=== PATIENT | female | born 1970 | race Caucasian/White ===

== ENCOUNTER 2016-03-17 13:41 | Emergency (ER) | payer MEDICARE, MEDICAID ==
[~2016-03-17] VITALS: Ht 162.6 cm; Wt 72.6 kg
[~2016-03-17 13:41] MED LIST: CIPR500T4 PO
[2016-03-17 15:14] LABS: BILIRUBIN,URINE NEGATIVE (NEGATIVE); KETONES,URINE NEGATIVE (NEGATIVE); LEUKOCYTE ESTERASE ,URINE 1+ (NEGATIVE); NITRITE,URINE NEGATIVE (NEGATIVE); PH,URINE 6 (5-9); PROTEIN,URINE NEGATIVE (NEGATIVE); UROBILINOGEN,URINE NORMAL (NORMAL)
[2016-03-17 15:19] LABS: BASOPHILS % (AUTO) 1 % (0-10); EOSINOPHILS # (AUTO) 0.2 10^3/uL (0.0-0.3); EOSINOPHILS % (AUTO) 2 % (0-10); LYMPHOCYTES # (AUTO) 2.2 X 10^3 (1.0-4.0); LYMPHOCYTES % (AUTO) 30 % (12-44); MEAN CORPUSCULAR HEMOGLOBIN 26 PG (25-34); MEAN CORPUSCULAR HGB CONC 33 G/DL (32-36); MEAN CORPUSCULAR VOLUME 79 FL (80-99); MEAN PLATELET VOLUME 10.4 FL (7.4-10.4); MONOCYTES % (AUTO) 13 % (0-12); NEUTROPHILS % (AUTO) 54 % (42-75); PLATELET COUNT 341 10^3/uL (130-400); RED BLOOD COUNT 4.93 10^6/uL (4.35-5.85); RED CELL DISTRIBUTION WIDTH 15.8 % (10.0-14.5); WHITE BLOOD COUNT 7.4 10^3/uL (4.3-11.0)
[2016-03-17 15:22] LABS: SQUAMOUS EPITHELIAL CELL,UR 25-50 /HPF
[2016-03-17 15:34] LABS: ALANINE AMINOTRANSFERASE 18 U/L (0-55); ALBUMIN 4.1 G/DL (3.2-4.5); ANION GAP 13 MMOL/L (5-14); ASPARTATE AMINO TRANSFERASE 18 U/L (5-34); BILIRUBIN,TOTAL 1.1 MG/DL (0.1-1.0); BLOOD UREA NITROGEN 15 MG/DL (7-18); BUN/CREATININE RATIO 20; CALCIUM 8.8 MG/DL (8.5-10.1); CARBON DIOXIDE 20 MMOL/L (21-32); CHLORIDE 107 MMOL/L (98-107); CREATININE SERUM 0.74 MG/DL (0.60-1.30); GFR ESTIMATED > 60; POTASSIUM 3.8 MMOL/L (3.6-5.0); SODIUM 140 MMOL/L (135-145); TOTAL PROTEIN 6.9 G/DL (6.4-8.2)
[2016-03-17 15:35] LABS: ALCOHOL < 10 MG/DL (<10); GLUCOSE 53 MG/DL (70-105)
--- NOTE | 2016-03-17 15:46 | Diagnostic Imaging Report ---
INDICATION: Abdominal distention. EXAMINATION: Supine and upright abdomen images. FINDINGS: The gallbladder is surgically absent. Bowel gas pattern is normal. There are no pathologic masses or calcifications. IMPRESSION: No acute abnormalities in the abdomen. Dictated by: Dictated on workstation # [id number]
[2016-03-17] MEDS ORDERED: MECL-106 PO (16:00)
[2016-03-17] MEDS ORDERED: SCOP1PAT TD (16:00)
--- NOTE | 2016-03-17 16:00 | ED General ---
General Chief Complaint: Dizziness/Syncope Stated Complaint: DIZZINESS/DIFF HAVING BOWEL MOVEMENT Nursing Triage Note: AMB TO ROOM REPORTS CONSTIPATION WAS SEEN 1 WEEK AGO FOR THAT NEVER GOT RX FILLED AND HAS BEEN DIZZY FOR A LONG TIME REPORT HAS PACEMAKER. Nursing Sepsis Screen: No Definite Risk Source of Information: Patient History of Present Illness Time Seen by Provider: 14:40 Initial Comments PT C/O CONSTIPATION X 1 WEEK DID HAVE A VERY SMALL BM YESTERDAY HAS TAKEN NOTHING FOR THIS PROBLEM NO ABDOMINAL PAIN NO NAUSEA/VOMITING NO URINARY SYMPTOMS ALSO C/O CHRONIC DIZZINESS, NO DIFFERENT TODAY. PCP: [facility]: DR. RUSSELL Allergies and Home Medications Allergies Coded Allergies: No Known Drug Allergies (Unverified , 03/10/16) Home Medications Meclizine HCl 25 Mg Tablet #30 25-50 MG PO Q6H Prescribed by: DIXIE LOPEZ on 03/17/16 1600 Scopolamine 1 Each Patch.td72 #3 1 EACH TD Q72 HOURS Prescribed by: DIXIE LOPEZ on 03/17/16 1600 Constitutional: see HPI dizziness Respiratory: no symptoms reported Cardiovascular: no symptoms reported Gastrointestinal: see HPI Genitourinary: no symptoms reported : No (HAD NOT HAD A PERIOD IN A YEAR, THEN HAD ONE LAST WEEK) Musculoskeletal: no symptoms reported Skin: no symptoms reported Psychiatric/Neurological: No Symptoms Reported Immunological/Allergic: see HPI Past Jzmyhpz-Lizagi-Ugsrnx Hx Patient Social History Recent Foreign Travel: No Contact w/Someone Who Travel: No Recent Infectious Disease Expo: No Recent Hopitalizations: No Surgeries HX Surgeries: Yes (GASTRIC BYPASS, ABDOMINOPLASTY; HERNIA REPAIR) Surgeries: Abdominal, Adenoidectomy, Section, Gallbladder, Pacemaker, Tonsillectomy Respiratory Hx Respiratory Disorders: No Cardiovascular Hx Cardiac Disorders: Yes (PACEMAKER FOR BRADYCARDIA) Neurological Hx Neurological Disorders: Yes Neurological Disorders: Vertigo Reproductive System Hx Reproductive Disorders: No HIV/AIDS: Yes Genitourinary Hx Genitourinary Disorders: Yes Genitourinary Disorders: Kidney Infection, Bladder Infection Gastrointestinal Hx Gastrointestinal Disorders: No Musculoskeletal Hx Musculoskeletal Disorders: No Endocrine Hx Endocrine Disorders: No HEENT HX ENT Disorders: No Cancer Hx Cancer: No Psychosocial Hx Psychiatric Problems: Yes Behavioral Health Disorders: ADD/ADHD, Anxiety, PTSD, Bipolar, Depression Integumentary HX Skin/Integumentary Disorder: No Blood Transfusions Hx Blood Disorders: No Adverse Reaction to a Blood Tr: No Family Medical History Significant Family History: No Pertinent Family Hx Physical Exam Vital Signs Vital Sign - Last 12Hours 03/17/16 14:17 Temp 98.6 Pulse 88 Resp 18 B/P 108/63 Pulse Ox 100 O2 Delivery Room Air Capillary Refill : Less Than 3 Seconds General Appearance: No Apparent Distress WD/WN Neck: Normal Inspection Respiratory: Normal Breath Sounds No Accessory Muscle Use No Respiratory Distress Cardiovascular: Regular Rate, Rhythm Normal Peripheral Pulses Gastrointestinal: Normal Bowel Sounds No Organomegaly No Pulsatile Mass Soft Tenderness (MILD SUPRAPUBIC) Back: No CVA Tenderness Extremity: Normal Inspection Neurologic/Psychiatric: Alert Oriented x3 No Motor/Sensory Deficits Skin: Normal Color Warm/Dry Progress/Results/Core Measures Results/Orders Lab Results My Orders Vital Signs/I&O Blood Pressure Mean: 78 Diagnostic Imaging Comments ABDOMINAL XRAYS--NO ACUTE PROCESS, PER RADIOLOGIST REPORT @ 1553 Reviewed: Reviewed by Me Departure Impression Impression: Primary Impression: CHRONIC DIZZINESS Additional Impressions: Constipation Hypoglycemia Disposition: HOME, SELF-CARE Condition: Stable Departure-Patient Inst. Referrals: NO,LOCAL PHYSICIAN (PCP/Family) Primary Care Physician Patient Instructions: Constipation, Adult (DC), Vertigo (a Type of Dizziness) ( DC) Add. Discharge Instructions: SLOW POSITION CHANGES TAKE MIRALAX DAILY FOLLOW UP WITH YOUR DR THIS WEEK FOR FURTHER CARE All discharge instructions reviewed with patient and/or family. Voiced understanding. Scripts Meclizine HCl 25 Mg [id number] Mg PO Q6H Dizziness #30 TAB Prov:DIXIE LOPEZ DO 03/17/16 Scopolamine (Transderm-Scop)1 Each Patch.td721 Each TD Q72 HOURS Dizziness #3 PATCH Prov:DIXIE LOPEZ DO 03/17/16 DIXIE LOPEZ DO Mar 17, 2016 16:00 Potassium Level 3.8 3.6-5.0 MMOL/L Red Blood Count 4.93 4.35-5.85 10^6/uL Red Cell Distribution Width 15.8 H 10.0-14.5 % Serum Alcohol < 10 <10 MG/DL Sodium Level 140 135-145 MMOL/L Total Bilirubin 1.1 H 0.1-1.0 MG/DL Total Protein 6.9 6.4-8.2 G/DL Ur Tricyclic Antidepressants Screen POSITIVE H NEGATIVE Urine Amphetamines Screen NEGATIVE NEGATIVE Urine Bacteria NEGATIVE /HPF Urine Barbiturates Screen NEGATIVE NEGATIVE Urine Benzodiazepines Screen NEGATIVE NEGATIVE Urine Bilirubin NEGATIVE NEGATIVE Urine Cannabinoids Screen NEGATIVE NEGATIVE Urine Casts NONE /LPF Urine Clarity CLEAR Urine Cocaine Screen NEGATIVE NEGATIVE Urine Color YELLOW Urine Crystals NONE /LPF Urine Culture Indicated NO Urine Glucose (UA) NEGATIVE NEGATIVE Urine Ketones NEGATIVE NEGATIVE Urine Leukocyte Esterase 1+ H NEGATIVE Urine Methadone Screen NEGATIVE NEGATIVE Urine Methamphetamines Screen NEGATIVE NEGATIVE Urine Mucus NEGATIVE /LPF Urine Nitrite NEGATIVE NEGATIVE Urine Opiates Screen NEGATIVE NEGATIVE Urine Oxycodone Screen NEGATIVE NEGATIVE Urine Phencyclidine Screen NEGATIVE NEGATIVE Urine Propoxyphene Screen NEGATIVE NEGATIVE Urine Protein NEGATIVE NEGATIVE Urine RBC NONE /HPF Urine RBC (Auto) NEGATIVE NEGATIVE Urine Specific [place] 1.025 H 1.016-1.022 Urine Squamous Epithelial Cells 25-50 H /HPF Urine Urobilinogen NORMAL NORMAL MG/DL Urine WBC NONE /HPF Urine pH 6 5-9 White Blood Count 7.4 4.3-11.0 10^3/uL My Orders Orders-DIXIE LOPEZ DO Ekg Tracing (03/17/16 14:54) Monitor-Rhythm Ecg Trace Only (03/17/16 14:54) Alcohol (03/17/16 14:54) Cbc With Automated Diff (03/17/16 14:54) Comprehensive Metabolic Panel (03/17/16 14:54) Drug Screen Stat (Urine) (03/17/16 14:54) Ua Culture If Indicated (03/17/16 14:54) Abdomen, Flat & Upright/Decub (03/17/16 14:54) General/Regular (03/17/16 Dinner) Vital Signs/I&O Vital Sign - Last 12Hours 03/17/16 14:17 Temp 98.6 Pulse 88 Resp 18 B/P 108/63 Pulse Ox 100 O2 Delivery Room Air Blood Pressure Mean: 78 Diagnostic Imaging Comments ABDOMINAL XRAYS--NO ACUTE PROCESS, PER RADIOLOGIST REPORT @ 1558 Reviewed: Reviewed by Me Departure Impression Impression: Primary Impression: CHRONIC DIZZINESS Additional Impressions: Constipation Hypoglycemia Disposition: 01 HOME, SELF-CARE Condition: Stable Departure-Patient Inst. Referrals: NO,LOCAL PHYSICIAN (PCP/Family) Primary Care Physician Patient Instructions: Constipation, Adult (DC), Vertigo (a Type of Dizziness) ( DC) Add. Discharge Instructions: SLOW POSITION CHANGES TAKE MIRALAX DAILY FOLLOW UP WITH YOUR DR THIS WEEK FOR FURTHER CARE All discharge instructions reviewed with patient and/or family. Voiced understanding. Scripts Meclizine HCl 25 Mg [id number] Mg PO Q6H Dizziness #30 TAB Prov:DIXIE LOPEZ DO 03/17/16 Scopolamine (Transderm-Scop)1 Each Patch.td721 Each TD Q72 HOURS Dizziness #3 PATCH Prov:DIXIE LOPEZ DO 03/17/16 DIXIE LOPEZ DO Mar 17, 2016 16:00
[2016-03-17] MEDS ORDERED: SCOPOLAMINE 1.5 MG (TRANSDERM-SCOP) PATCH TD ONE (16:15)
[2016-03-17 16:44] VITALS: BP 103/66
== END 2016-03-17 16:44 | disposition home or self-care (01) ==
LOC: EDUNIT# 13:41 → ER 13:42
DX: R42 Dizziness and giddiness (principal); K59.00 Constipation, unspecified; E16.2 Hypoglycemia, unspecified; Z98.84 Bariatric surgery status; Z95.0 Presence of cardiac pacemaker
CPT/HCPCS: 36415; 74020; 80053; 80306; 80320; 81000; 85025; 93005

== ENCOUNTER → 2016-03-19 | Outpatient (CLI) | payer MEDICARE, MEDICAID ==
[~2016-03-19] MED LIST changes: +MECL-106 PO; +SCOP1PAT TD
== END ==
LOC: RAD 12:29 → EDUNIT# 12:30
PROVIDERS: ATTEND Internal Medicine Cardiovascular Disease
DX: I70.213 Atherosclerosis of native arteries of extremities with intermittent claudication, bilateral legs (principal); I25.2 Old myocardial infarction; Z21 Asymptomatic human immunodeficiency virus [HIV] infection status; Z72.0 Tobacco use; F19.21 Other psychoactive substance dependence, in remission; R94.31 Abnormal electrocardiogram [ECG] [EKG]
CPT/HCPCS: 93923

== ENCOUNTER → 2016-05-23 | Outpatient (CLI) | payer MEDICARE, MEDICAID | LOC: RAD 11:07 | PROVIDERS: ATTEND Nurse Practitioner Family | DX: R90.89 Other abnormal findings on diagnostic imaging of central nervous system (principal) ==

== ENCOUNTER → 2016-09-25 | Outpatient (CLI) | payer MEDICARE, MEDICAID ==
--- NOTE | 2016-09-25 15:19 | Diagnostic Imaging Report ---
PROCEDURE: CT head without contrast. TECHNIQUE: Multiple contiguous axial images were obtained through the brain without the use of intravenous contrast. INDICATION: Memory loss COMPARISON: 03/10/2016. FINDINGS: There is no intracranial hemorrhage, edema or mass effect. The brain parenchyma appears unremarkable. No hydrocephalus. Similar to the prior exam, there is a persistent 4 mm hyperdense lesion along the anterosuperior aspect of the third ventricle area suggestive of a colloid cyst. The visualized portions of the orbits and paranasal sinuses appear unremarkable. IMPRESSION: A hyperdense lesion measuring 4 mm in the anterosuperior aspect of the third ventricular region suggestive of a tiny colloid cyst, similar to 03/10/2016 exam. Dictated by: Dictated on workstation # [id number]
== END ==
LOC: RAD 13:20
PROVIDERS: ATTEND Nurse Practitioner Adult Health
DX: R93.0 Abnormal findings on diagnostic imaging of skull and head, not elsewhere classified (principal)
CPT/HCPCS: 70450

== ENCOUNTER 2016-10-18 14:12 | Emergency (ER) | payer MEDICARE, MEDICAID ==
[~2016-10-18] VITALS: Ht 162.6 cm; Wt 72.6 kg
--- NOTE | 2016-10-18 14:42 | ED General ---
General Stated Complaint: DIARRHEA/DIZZINESS Source of Information: Patient Exam Limitations: No Limitations History of Present Illness Time Seen by Provider: 14:39 Initial Comments To ER with c/o abdominal cramping, nausea, dizziness, diarrhea, and near syncope. SHe has a history of IBS with constipation being treated with Linzess. No fevers or chills. Currently on HAART for HIV by Dr Russell in [place]. 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 Timing/Duration: 12 Hours Severity: Moderate Associated Systoms: No Chest Pain, No Cough, No Diaphoresis, No Fever/Chills, No Loss of Appetite, Nausea/Vomiting Allergies and Home Medications Allergies Coded Allergies: No Known Drug Allergies (Unverified , 03/10/16) Home Medications Meclizine HCl 25 Mg Tablet, 25-50 MG PO Q6H, #30 Prescribed by: DIXIE LOPEZ on 03/17/16 1600 Scopolamine 1 Each Patch.td72, 1 EACH TD Q72 HOURS, #3 Prescribed by: DIXIE LOPEZ on 03/17/16 1600 Constitutional: see HPI, chills, No fever EENTM: see HPI Respiratory: no symptoms reported Cardiovascular: no symptoms reported Gastrointestinal: abdominal pain, constipation, diarrhea, nausea Genitourinary: no symptoms reported Musculoskeletal: no symptoms reported Skin: no symptoms reported Psychiatric/Neurological: No Symptoms Reported Hematologic/Lymphatic: No Symptoms Reported Immunological/Allergic: no symptoms reported Past Auvitet-Olwzuk-Cyfpci Hx Patient Social History Recent Foreign Travel: No Contact w/Someone Who Travel: No Recent Hopitalizations: No Surgeries HX Surgeries: Yes (gastric bypass) Surgeries: Section Respiratory Hx Respiratory Disorders: No Cardiovascular Hx Cardiac Disorders: Yes Neurological Hx Neurological Disorders: No Reproductive System Hx Reproductive Disorders: No HIV/AIDS: Yes Genitourinary Hx Genitourinary Disorders: Yes Genitourinary Disorders: Kidney Infection, Bladder Infection Gastrointestinal Hx Gastrointestinal Disorders: No Musculoskeletal Hx Musculoskeletal Disorders: No Endocrine Hx Endocrine Disorders: No HEENT HX ENT Disorders: No Cancer Hx Cancer: No Psychosocial Behavioral Health Disorders: ADD/ADHD, Anxiety, PTSD, Bipolar, Depression Integumentary HX Skin/Integumentary Disorder: No Blood Transfusions Hx Blood Disorders: No Adverse Reaction to a Blood Tr: No Family Medical History Significant Family History: No Pertinent Family Hx Physical Exam Vital Signs Vital Sign - Last 12Hours 10/18/16 14:35 Temp 99.4 Pulse 87 Resp 20 B/P (MAP) 109/80 Pulse Ox 97 O2 Delivery Room Air Capillary Refill : General Appearance: No Apparent Distress, WD/WN Eyes: Bilateral Eye EOMI, Bilateral Eye Normal Inspection, Bilateral Eye PERRL HEENT: PERRL/EOMI, TMs Normal Neck: Full Range of Motion, Normal Inspection Respiratory: Normal Breath Sounds, No Accessory Muscle Use, No Respiratory Distress Cardiovascular: Regular Rate, Rhythm, Normal Peripheral Pulses Gastrointestinal: Normal Bowel Sounds, Non Tender, Soft Extremity: Normal Capillary Refill, Normal Inspection Neurologic/Psychiatric: Alert, Oriented x3, No Motor/Sensory Deficits Skin: Normal Color, Warm/Dry Progress/Results/Core Measures Results/Orders Lab Results Laboratory Tests Test 10/18/16 14:42 10/18/16 16:47 Range/Units White Blood Count 8.1 4.3-11.0 10^3/uL Red Blood Count 4.87 4.35-5.85 10^6/uL Hemoglobin 11.7 11.5-16.0 G/DL Hematocrit 38 35-52 % Mean Corpuscular Volume 77 L 80-99 FL Mean Corpuscular Hemoglobin 24 L 25-34 PG Mean Corpuscular Hemoglobin Concent 31 L 32-36 G/DL Red Cell Distribution Width 17.9 H 10.0-14.5 % Platelet Count 271 130-400 10^3/uL Mean Platelet Volume 11.4 H 7.4-10.4 FL Neutrophils (%) (Auto) 88 H 42-75 % Lymphocytes (%) (Auto) 5 L 12-44 % Monocytes (%) (Auto) 6 0-12 % Eosinophils (%) (Auto) 1 0-10 % Basophils (%) (Auto) 0 0-10 % Neutrophils # (Auto) 7.1 1.8-7.8 X 10^3 Lymphocytes # (Auto) 0.4 L 1.0-4.0 X 10^3 Monocytes # (Auto) 0.5 0.0-1.0 X 10^3 Eosinophils # (Auto) 0.1 0.0-0.3 10^3/uL Basophils # (Auto) 0.0 0.0-0.1 10^3/uL Neutrophils % (Manual) 75 % Lymphocytes % (Manual) 7 % Monocytes % (Manual) 3 % Eosinophils % (Manual) 2 % Basophils % (Manual) 0 % Band Neutrophils 13 % Blood Morphology Comment NORMAL Prothrombin Time 13.4 12.2-14.7 SEC INR Comment 1.1 0.8-1.4 Sodium Level 138 135-145 MMOL/L Potassium Level 3.5 L 3.6-5.0 MMOL/L Chloride Level 108 H 98-107 MMOL/L Carbon Dioxide Level 20 L 21-32 MMOL/L Anion Gap 10 5-14 MMOL/L Blood Urea Nitrogen 11 7-18 MG/DL Creatinine 0.65 0.60-1.30 MG/DL Estimat Glomerular Filtration Rate > 60 BUN/Creatinine Ratio 17 Glucose Level 106 H 70-105 MG/DL Calcium Level 8.7 8.5-10.1 MG/DL Total Bilirubin 0.9 0.1-1.0 MG/DL Aspartate Amino Transf (AST/SGOT) 15 5-34 U/L Alanine Aminotransferase (ALT/SGPT) 12 0-55 U/L Alkaline Phosphatase 119 40-136 U/L Total Protein 6.3 L 6.4-8.2 GM/DL Albumin 4.0 3.2-4.5 GM/DL Urine Color YELLOW Urine Clarity CLEAR Urine pH 5 5-9 Urine Specific [place] 1.020 1.016-1.022 Urine Protein 2+ H NEGATIVE Urine Glucose (UA) NEGATIVE NEGATIVE Urine Ketones NEGATIVE NEGATIVE Urine Nitrite NEGATIVE NEGATIVE Urine Bilirubin NEGATIVE NEGATIVE Urine Urobilinogen NORMAL NORMAL MG/DL Urine Leukocyte Esterase 1+ H NEGATIVE Urine RBC (Auto) NEGATIVE NEGATIVE Urine RBC NONE /HPF Urine WBC 2-5 /HPF Urine Squamous Epithelial Cells 5-10 /HPF Urine Crystals NONE /LPF Urine Bacteria NONE /HPF Urine Casts NONE /LPF Urine Mucus NEGATIVE /LPF Urine Culture Indicated NO Urine Opiates Screen NEGATIVE NEGATIVE Urine Oxycodone Screen NEGATIVE NEGATIVE Urine Methadone Screen NEGATIVE NEGATIVE Urine Propoxyphene Screen NEGATIVE NEGATIVE Urine Barbiturates Screen NEGATIVE NEGATIVE Ur Tricyclic Antidepressants Screen NEGATIVE NEGATIVE Urine Phencyclidine Screen NEGATIVE NEGATIVE Urine Amphetamines Screen NEGATIVE NEGATIVE Urine Methamphetamines Screen NEGATIVE NEGATIVE Urine Benzodiazepines Screen POSITIVE H NEGATIVE Urine Cocaine Screen NEGATIVE NEGATIVE Urine Cannabinoids Screen NEGATIVE NEGATIVE My Orders Orders - SHILOH JIM BANKER MASON Cbc With Automated Diff (10/18/16 14:37) Comprehensive Metabolic Panel (10/18/16 14:37) Ua Culture If Indicated (10/18/16 14:37) Saline Lock/Iv-Start (10/18/16 14:37) Ct Abdomen/Pelvis W (10/18/16 14:38) Ns Iv 1000 Ml (Sodium Chloride 0.9%) (10/18/16 14:45) Ondansetron Injection (Zofran Injectio (10/18/16 14:45) Drug Screen Stat (Urine) (10/18/16 14:42) Protime With Inr (10/18/16 14:42) Manual Differential (10/18/16 14:42) Ketorolac Injection (Toradol Injection) (10/18/16 15:15) Iohexol Injection (Omnipaque 350 Mg/Ml 1 (10/18/16 15:15) Medications Given in ED Current Medications Medications Dose Ordered Sig/Brit Route Start Time Stop Time Status Last Admin Dose Admin Ketorolac Tromethamine 30 mg ONCE ONCE IVP 10/18/16 15:15 10/18/16 15:16 DC 10/18/16 15:13 30 MG Ondansetron HCl 8 mg ONCE ONCE IVP 10/18/16 14:45 10/18/16 14:46 DC 10/18/16 15:13 8 MG Vital Signs/I&O Vital Sign - Last 12Hours 10/18/16 14:35 Temp 99.4 Pulse 87 Resp 20 B/P (MAP) 109/80 Pulse Ox 97 O2 Delivery Room Air Departure Impression Impression: Primary Impression: Irritable bowel syndrome Disposition: HOME, SELF-CARE Condition: Stable Departure-Patient Inst. Decision time for Depature: 17:07 Referrals: SARY RUSSELL MD (PCP/Family) Primary Care Physician Patient Instructions: Irritable Bowel Syndrome (DC) Add. Discharge Instructions: 1. Continue current medications 2. Return to ER for any concerns 3. See your doctor next week SHILOH JIM APRN Oct 18, 2016 14:42
[2016-10-18] MEDS ORDERED: NS IV 1000 ML 1,000 ML IV SCH (14:45)
[2016-10-18] MEDS ORDERED: ONDANSETRON 4 MG/2 ML (SDV) Z0FRAN IVP ONE (14:45)
[2016-10-18 14:52] LABS: BASOPHILS % (AUTO) 0 % (0-10); EOSINOPHILS # (AUTO) 0.1 10^3/uL (0.0-0.3); EOSINOPHILS % (AUTO) 1 % (0-10); LYMPHOCYTES # (AUTO) 0.4 X 10^3 (1.0-4.0); LYMPHOCYTES % (AUTO) 5 % (12-44); MEAN CORPUSCULAR HEMOGLOBIN 24 PG (25-34); MEAN CORPUSCULAR HGB CONC 31 G/DL (32-36); MEAN CORPUSCULAR VOLUME 77 FL (80-99); MEAN PLATELET VOLUME 11.4 FL (7.4-10.4); MONOCYTES # (AUTO) 0.5 X 10^3 (0.0-1.0); MONOCYTES % (AUTO) 6 % (0-12); NEUTROPHILS # (AUTO) 7.1 X 10^3 (1.8-7.8); NEUTROPHILS % (AUTO) 88 % (42-75); PLATELET COUNT 271 10^3/uL (130-400); RED BLOOD COUNT 4.87 10^6/uL (4.35-5.85); RED CELL DISTRIBUTION WIDTH 17.9 % (10.0-14.5); WHITE BLOOD COUNT 8.1 10^3/uL (4.3-11.0)
[2016-10-18 15:04] LABS: INR 1.1 (0.8-1.4); PROTHROMBIN TIME PATIENT 13.4 SEC (12.2-14.7)
[2016-10-18 15:10] LABS: ALANINE AMINOTRANSFERASE 12 U/L (0-55); ANION GAP 10 MMOL/L (5-14); ASPARTATE AMINO TRANSFERASE 15 U/L (5-34); BILIRUBIN,TOTAL 0.9 MG/DL (0.1-1.0); BLOOD UREA NITROGEN 11 MG/DL (7-18); BUN/CREATININE RATIO 17; CALCIUM 8.7 MG/DL (8.5-10.1); CARBON DIOXIDE 20 MMOL/L (21-32); CHLORIDE 108 MMOL/L (98-107); CREATININE SERUM 0.65 MG/DL (0.60-1.30); GFR ESTIMATED > 60; GLUCOSE 106 MG/DL (70-105); POTASSIUM 3.5 MMOL/L (3.6-5.0); SODIUM 138 MMOL/L (135-145); TOTAL PROTEIN 6.3 GM/DL (6.4-8.2)
[2016-10-18 15:14] VITALS: BP 114/74
[2016-10-18] MEDS ORDERED: KETOROLAC 30 MG/ML VIAL IVP ONE (15:15)
[2016-10-18] MEDS ORDERED: IOHEXOL 350 MG/ML 100 ML (OMNIPAQUE 350) VIAL IV ONE (15:15)
[2016-10-18 15:20] LABS: BAND NEUTROPHILS 13 %; BASOPHILS % (MANUAL) 0 %; EOSINOPHILS % (MANUAL) 2 %; LYMPHOCYTES % (MANUAL) 7 %; NEUTROPHILS % (MANUAL) 75 %
--- NOTE | 2016-10-18 15:54 | Diagnostic Imaging Report ---
PROCEDURE: CT abdomen and pelvis with contrast. TECHNIQUE: Multiple contiguous axial images were obtained through the abdomen and pelvis after administration of intravenous contrast. INDICATION: Diarrhea. Dizziness. History of gastric bypass. Hernia. COMPARISON: 03/10/2016 FINDINGS: Included views of the lung bases are clear. CT abdomen: Gallbladder is surgically absent. There is some mild expected prominence of the common bile ducts. Otherwise, the liver, spleen, pancreas, kidneys, and adrenal glands have a normal CT appearance. Postsurgical changes of gastric bypass are again noted. There are some prominent dilated loops of small bowel in the left upper abdominal quadrant. Adjacent suture material is noted. Otherwise, small bowel loops are nondistended. Normal appendix is identified. There is no loculated fluid collection, free fluid, nor free air within the abdomen. No abnormal mesenteric or retroperitoneal adenopathy is seen. There is mild calcified aortic and arterial atherosclerosis. Bony structures show no acute abnormalities. CT pelvis: Left ovarian cyst is noted and measures 1.9 x 3.1 cm. Urinary bladder is grossly unremarkable. There is no loculated fluid collection, free fluid, nor free air within the pelvis. No abnormal lymph nodes are seen. Bony structures show no acute abnormalities. IMPRESSION: 1. No acute-appearing abnormalities within the abdomen or pelvis. 2. Left ovarian cyst. 3. Postsurgical changes of previous gastric bypass. Dictated by: Dictated on workstation # [id number]
[2016-10-18 16:53] LABS: BILIRUBIN,URINE NEGATIVE (NEGATIVE); KETONES,URINE NEGATIVE (NEGATIVE); LEUKOCYTE ESTERASE ,URINE 1+ (NEGATIVE); NITRITE,URINE NEGATIVE (NEGATIVE); PH,URINE 5 (5-9); PROTEIN,URINE 2+ (NEGATIVE); UROBILINOGEN,URINE NORMAL (NORMAL)
== END 2016-10-18 17:14 | disposition home or self-care (01) ==
LOC: EDUNIT# 14:12 → ER 14:14
DX: K58.0 Irritable bowel syndrome with diarrhea (principal); F90.9 Attention-deficit hyperactivity disorder, unspecified type; F41.9 Anxiety disorder, unspecified; F43.10 Post-traumatic stress disorder, unspecified; F31.9 Bipolar disorder, unspecified; Z21 Asymptomatic human immunodeficiency virus [HIV] infection status; Z86.19 Personal history of other infectious and parasitic diseases; Z98.51 Tubal ligation status
CPT/HCPCS: 36415; 74177; 80053; 80306; 81000; 85007; 85027; 85610; 96361; 96374; 96375

== ENCOUNTER → 2016-12-06 | Outpatient (CLI) | payer MEDICARE, MEDICAID ==
[~2016-12-06] MED LIST changes: +CEFD300C3 PO; +PERM60CR4 TP; +PHEN-640 PO; +TR1C15
== END ==
LOC: RT 10-18 13:53
PROVIDERS: ATTEND Nurse Practitioner Family
DX: J44.9 Chronic obstructive pulmonary disease, unspecified (principal)
CPT/HCPCS: 94060; 94726; 94729

== ENCOUNTER 2016-12-18 12:01 | Emergency (ER) | payer MEDICARE, MEDICAID ==
[~2016-12-18] VITALS: Ht 162.6 cm; Wt 77.1 kg
[~2016-12-18 12:01] MED LIST changes: -CEFD300C3 PO; -PERM60CR4 TP; -PHEN-640 PO; -TR1C15
--- OUTSIDE RECORDS SUMMARY | 2016-12-18 12:09 | XMS REPORT ---
Author Author Carmela Whitmore Organization [employer] Address Unknown Phone Unavailable Care Team Providers Care Registered Dental Assistant Rda Name Role Phone Carmela Whitmore CP Unavailable Allergies No Known Allergies Problems Problem Type Condition ICD-9 Code Onset Dates Condition Status Problem Generalized anxiety disorder 300.02 Active Problem Nondependent tobacco use disorder 305.1 Active Problem Cervicalgia 723.1 Active Problem Morbid obesity 278.01 Active Problem Unspecified sinusitis (chronic) 473.9 Active Problem GERD (gastroesophageal reflux disease) 530.81 Active Problem Colitis 558.9 Active Problem Acquired immune deficiency syndrome 042 Active Problem cage tender (current) use of 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 V58.69 Active Problem Lumbago 724.2 Active Problem Depressive disorder, not elsewhere classified 311 Active Problem Abdominal pain, unspecified site 789.00 Active Medications No Known Medications Results No Known Results Summary Purpose [employer] Submission
--- OUTSIDE RECORDS SUMMARY | 2016-12-18 12:09 | XMS REPORT ---
Author Author Carmela Whitmore [facility] Address [address] [place], [place] [id number] Care Team Providers Care Duplicator Punch Set Up Operator Name Role Phone Carmela Whitmore Unavailable PROBLEMS Type Condition ICD9-CM Code FVC28-FL Code Onset Dates Condition Status SNOMED Code Problem Slow transit constipation K59.01 Active 59892855 Problem Restless leg syndrome G25.81 Active 74450274 Problem Migraine, unspecified, not intractable, without status migrainosus G43.909 Active 42825502 Problem [address] CT of the head R93.0 Active 217773768 Problem Insomnia G47.00 Active 547615197 Problem Constipation by delayed colonic transit K59.01 Active 69921155 Problem Migraine with aura and without status migrainosus, not intractable G43.109 Active 1445028 Problem Primary hypothyroidism E03.9 Active 31865445 Problem Dermatitis L30.9 Active 97118195 Problem residential prescription opiate use Z79.899 Active 767530189 Problem Cervicalgia M54.2 Active 859039615 Problem GERD (gastroesophageal reflux disease) K21.9 Active 645530399 Problem Chronic depression F32.9 Active 175332123 Problem AIDS B20 Active 54651433 Problem Generalized anxiety disorder F41.1 Active 66234713 Problem Primary insomnia F51.01 Active 9437927 Problem Low back pain M54.5 Active 270467458 Problem Seasonal allergic rhinitis due to pollen J30.1 Active 45562381 ALLERGIES Unknown Allergies SOCIAL HISTORY No smoking Hx information available PLAN OF CARE VITAL SIGNS MEDICATIONS Unknown Medications RESULTS No Results PROCEDURES No Known procedures IMMUNIZATIONS No Known Immunizations
--- OUTSIDE RECORDS SUMMARY | 2016-12-18 12:09 | XMS REPORT ---
Author Author Carmela Whitmore [facility] Address [address], [place] [id number] Care Team Providers Care Manager Equipment Name Role Phone Cramela Whitmore Unavailable PROBLEMS Type Condition ICD9-CM Code [id number]-[id number] Code Onset Dates Condition Status SNOMED Code Problem Seasonal allergic rhinitis due to pollen J30.1 Active 58138405 Problem Migraine, unspecified, not intractable, without status migrainosus G43.909 Active 81020121 Problem Slow transit constipation K59.01 Active 79126233 Problem Insomnia G47.00 Active 080910614 Problem Primary hypothyroidism E03.9 Active 36135577 Problem Migraine with aura and without status migrainosus, not intractable G43.109 Active 2197713 Problem Restless leg syndrome G25.81 Active 64823926 Problem Dermatitis L30.9 Active 81381013 Problem Constipation by delayed colonic transit K59.01 Active 17638285 Problem GERD (gastroesophageal reflux disease) K21.9 Active 434359569 Problem retirement prescription opiate use Z79.899 Active 559174900 Problem Low back pain M54.5 Active 269240317 Problem Chronic depression F32.9 Active 641057212 Problem Cervicalgia M54.2 Active 646473517 Problem AIDS B20 Active 83781711 Problem Generalized anxiety disorder F41.1 Active 56407303 Problem Primary insomnia F51.01 Active 6465613 ALLERGIES Unknown Allergies SOCIAL HISTORY No smoking Hx information available PLAN OF CARE VITAL SIGNS MEDICATIONS Unknown Medications RESULTS No Results PROCEDURES No Known procedures IMMUNIZATIONS No Known Immunizations
--- OUTSIDE RECORDS SUMMARY | 2016-12-18 12:09 | XMS REPORT ---
Author Author Alessia Erickson Organization [employer] Address Unknown Phone Unavailable Care Team Providers Care Control Room Helper Name Role Phone Alessia Erickson CP Unavailable Allergies No Known Allergies Problems Problem Type Condition Code Onset Dates Condition Status Problem Generalized anxiety disorder F41.1 Active Problem Low back pain M54.5 Active Problem Smoking F17.200 Active Problem Moderate episode of recurrent major depressive disorder F33.1 Active Problem Primary insomnia F51.01 Active Problem Smoker F17.200 Active Problem AIDS B20 Active Problem Chronic depression F32.9 Active Problem Urinary tract infection, site not specified N39.0 Active Problem Abnormal urinalysis R82.90 Active Problem GERD (gastroesophageal reflux disease) K21.9 Active Problem collections professional prescription opiate use Z79.899 Active Problem Cervicalgia M54.2 Active Medications No Known Medications Results No Known Results Summary Purpose [employer] Submission
--- OUTSIDE RECORDS SUMMARY | 2016-12-18 12:09 | XMS REPORT ---
Author Author Carmela Whitmore [facility] [employer] Address Unknown Phone Unavailable Care Team Providers Care Survey Compiler Name Role Phone Carmela Whitmore CP Unavailable Allergies No Known Allergies Problems Problem Type Condition Code Onset Dates Condition Status Problem Smoking F17.200 Active Problem Chronic depression F32.9 Active Problem Low back pain M54.5 Active Problem Smoker F17.200 Active Problem Moderate episode of recurrent major depressive disorder F33.1 Active Problem Abnormal chest xray R93.8 Active Problem Abnormal urinalysis R82.90 Active Problem AIDS B20 Active Problem Primary insomnia F51.01 Active Problem Urinary tract infection, site not specified N39.0 Active Problem GERD (gastroesophageal reflux disease) K21.9 Active Problem [facility] prescription opiate use Z79.899 Active Problem Cervicalgia M54.2 Active Problem Generalized anxiety disorder F41.1 Active Medications No Known Medications Results No Known Results Summary Purpose [employer] Submission
--- OUTSIDE RECORDS SUMMARY | 2016-12-18 12:09 | XMS REPORT ---
Author Author Carmela Whitmore [facility] Address [address], [place] [id number] Care Team Providers Care Plush Dresser Name Role Phone Carmela Whitmore Unavailable PROBLEMS Type Condition ICD9-CM Code [id number] Code Onset Dates Condition Status SNOMED Code Problem AIDS B20 Active 10120341 Problem Seasonal allergic rhinitis due to pollen J30.1 Active 29756997 Problem Primary insomnia F51.01 well-controlled 6774345 Problem Dermatitis L30.9 Active 46111257 Problem Constipation by delayed colonic transit K59.01 Active 43607737 Problem Migraine, unspecified, not intractable, without status migrainosus G43.909 Active 29587916 Problem Slow transit constipation K59.01 Active 95709610 Problem Migraine with aura and without status migrainosus, not intractable G43.109 Active 5994339 Problem Restless leg syndrome G25.81 Active 05859487 Problem Cervicalgia M54.2 Active 783061299 Problem Generalized anxiety disorder F41.1 Active 54911625 Problem GERD (gastroesophageal reflux disease) K21.9 Active 375034801 Problem Low back pain M54.5 Active 438423861 Problem 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
--- OUTSIDE RECORDS SUMMARY | 2016-12-18 12:09 | XMS REPORT ---
Author Author MICHAEL MENJIVAR Organization [facility] Address [address] [place] [address] Care Team Providers Care Answering Service Agent Name Role Phone TIARA MICHAEL Unavailable PROBLEMS Type Condition ICD9-CM Code [id number] Code Onset Dates Condition Status SNOMED Code Problem Left hip pain M25.552 Active 83784304 Problem Family history of diabetes mellitus Z83.3 Active 286203252 Problem Tobacco abuse Z72.0 Active 333985816 Problem Constipation, unspecified constipation type K59.00 Active 20750752 Problem History of LA (myocardial infarction) I25.2 Active 618476223 Problem Restless legs syndrome G25.81 Active 96966043 Problem Tobacco abuse counseling Z71.6 Active 401562505 Problem Routine health maintenance Z00.00 Active 009629350 Problem Generalized headaches R51 Active 980257133 Problem History of gastric bypass Z98.890 Active 755671020 Problem HIV antibody positive Z21 Active 717949321 Problem 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
--- OUTSIDE RECORDS SUMMARY | 2016-12-18 12:09 | XMS REPORT ---
Author Author Carmela Whitmore Organization [employer] Address Unknown Phone Unavailable Care Team Providers Care Doughnut Dough Mixer Name Role Phone Carmela Whitmore CP Unavailable Allergies No Known Allergies Problems Problem Type Condition Code Onset Dates Condition Status Problem group home prescription opiate use Z79.899 Active Problem GERD (gastroesophageal reflux disease) K21.9 Active Problem Primary insomnia F51.01 Active Problem AIDS B20 Active Problem Seasonal allergic rhinitis due to pollen J30.1 Active Problem Generalized anxiety disorder F41.1 Active Problem Cervicalgia M54.2 Active Problem Chronic depression F32.9 Active Problem Low back pain M54.5 Active Medications No Known Medications Results No Known Results Summary Purpose [employer] Submission
--- OUTSIDE RECORDS SUMMARY | 2016-12-18 12:09 | XMS REPORT ---
Author Author Alessia Erickson [facility] Address [address] [place], [place] [address] Care Team Providers Care Pinsetter Mechanic Automatic Name Role Phone Alessia Erickson Unavailable PROBLEMS Type Condition ICD9-CM Code [id number] Code Onset Dates Condition Status SNOMED Code Problem Dermatitis L30.9 Active 08413243 Problem Insomnia G47.00 Active 068390934 Problem Primary hypothyroidism E03.9 Active 97148781 Problem Intertrigo L30.4 Active 93317478 Problem Generalized anxiety disorder F41.1 Active 69951624 Problem COPD bronchitis J44.9 Active 59639083 Problem Cervicalgia M54.2 Active 632252790 Problem [facility] prescription opiate use Z79.899 Active 379358799 Problem Anxiety F41.9 Active 52096469 Problem Ab[address] CT of the head R93.0 Active 436545173 Problem Cigarette nicotine dependence, uncomplicated F17.210 Active 99158374 Problem Bilateral headaches R51 Active 897360383 Problem AIDS B20 Active 37776899 Problem Primary insomnia F51.01 Active 7491061 Problem Low back pain M54.5 Active 651191428 Problem Chronic depression F32.9 Active 461194667 Problem Migraine, unspecified, not intractable, without status migrainosus G43.909 Active 84369884 Problem Restless leg syndrome G25.81 Active 60666857 Problem Seasonal allergic rhinitis due to pollen J30.1 Active 27121206 Problem Migraine with aura and without status migrainosus, not intractable G43.109 Active 4057481 Problem GERD (gastroesophageal reflux disease) K21.9 Active 979328657 Problem Slow transit constipation K59.01 Active 58354567 Problem Constipation by delayed colonic transit K59.01 Active 31801825 ALLERGIES Substance Reaction Event Type Date Status N.K.D.A. Unknown Non Drug Allergy Sep, Unknown SOCIAL HISTORY No smoking Hx information available PLAN OF CARE Activity Details Follow Up 3 Months, prn Reason:null Pending Test QMP Plus D/L (urine) Pending Test PFT with DLCO VITAL SIGNS Height 64.0 in 2016-10-04 Weight 183 lbs 2016-10-04 Temperature 97.9 degrees Fahrenheit 2016-10-04 Heart Rate 80 /min 2016-10-04 Respiratory Rate 16 /min 2016-10-04 Oximetry 98 % 2016-10-04 BMI 31.41 kg/m2 2016-10-04 Blood pressure systolic 100 mm Hg 2016-10-04 Blood pressure diastolic 60 mm Hg 2016-10-04 MEDICATIONS Medication Instructions Dosage Frequency Start Date End Date Duration Status Trokendi XR 100 MG Orally Once a day 1 capsule 24h Sep, 30 day( s) Active Omeprazole 40 MG Orally Once a day 1 capsule 24h Aug, 30 day(s ) Active Fluconazole 200 MG Orally Once a day 1 tablet 24h Sep, 2 days Active Ventolin HFA 108 (90 Base) MCG/ACT Inhalation four times a day 2 puffs as needed 6h Nov, 30 days Active Ropinirole HCl 0.5 MG Orally once a day 1 tab at bedtime 24h 30 days Active Ketoconazole 2 % Externally Once a day as directed 24h May, 30 days Active Stiolto Respimat 2.5-2.5 MCG/ACT Inhalation Once a day 2 puffs 24h Sep, 30 days Active Fluocinonide Emulsified Base 0.05 % Externally twice a day as directed 12h Mar, 30 days Active Celexa 40 MG Orally Once a day 1 tablet 24h 15 Nov, 2015 30 day(s) Active Temazepam 30 MG Orally Once a day 1 capsule at bedtime as needed 24h May 30 days Active Descovy 200-25 mg Orally Once a day 1 tablet 24h May, 30 days Active Nicotrol 10 MG Inhalation 16 time(s) a day 1 puff as needed Sep, 30 days Active Strattera 25 MG Orally Once a day 1 capsule 24h Active Celexa 20 MG Orally Once a day 1 tablet 24h Sep, 30 day(s) Active Simethicone 180 MG Orally Four times a day 1 capsule as needed 6h Jan, 10 days Active Linzess 145 MCG Orally Once a day 1 capsule 24h Apr, 30 day(s) Active Levothyroxine Sodium 50 MCG Orally Once a day 1 tablet on an empty stomach in the morning 24h Jun, 30 day(s) Active Evotaz 300/150 mg Oral once a day 1 tab 24h Aug, 30 days Active Alprazolam 0.5 MG Orally 1 daily 1 tablet Sep, Oct, 30 days Active RESULTS Name Result Date Reference Range Human Immunodeficiency Virus (HIV-1), Quantitative, Real-time PCR (graph) 01410 2016-10-04 HIV-1 RNA by PCR <20 log10 HIV-1 RNA TNP Triiodothyronine (T3) 2016-10-04 Triiodothyronine (T3) 125 71-180 Thyroid-Stimulating Hormone (TSH) and Free T4 10064/73735 2016-10-04 TSH 2.340 0.450-4.500 T4,Free(Direct) 0.82 0.82-1.77 Metabolic Panel (14), Comprehensive (CMP) 03851 2016-10-04 Glucose, Serum 70 65-99 BUN 11 6-24 Creatinine, Serum 0.50 0.57-1.00 eGFR If NonAfricn Am 116 >59 eGFR If Africn Am 134 >59 BUN/Creatinine Ratio 22 9-23 Sodium, Serum 144 134-144 Potassium, Serum 4.5 3.5-5.2 Chloride, Serum 105 96-106 Carbon Dioxide, Total 22 18-29 Calcium, Serum 8.8 8.7-10.2 Protein, Total, Serum 6.0 6.0-8.5 Albumin, Serum 3.9 3.5-5.5 Globulin, Total 2.1 1.5-4.5 A/G Ratio 1.9 1.2-2.2 Bilirubin, Total 1.1 0.0-1.2 Alkaline Phosphatase, S 84 39-117 AST (SGOT) 14 0-40 ALT (SGPT) 12 0-32 CD4/CD8 Ratio Profile 02435 2016-10-04 Absolute CD 4 [place] 502 464-7175 % CD 4 Pos. Lymph. 28.1 30.8-58.5 Abs. CD 8 Suppressor 874 109-897 % CD 8 Pos. Lymph. 54.6 12.0-35.5 CD4/CD8 Ratio 0.51 0.92-3.72 WBC 7.0 3.4-10.8 RBC 4.60 3.77-5.28 Hemoglobin 11.0 11.1-15.9 Hematocrit 35.8 34.0-46.6 MCV 78 79-97 MCH 23.9 26.6-33.0 MCHC 30.7 31.5-35.7 RDW 16.8 12.3-15.4 Platelets 230 150-379 Neutrophils 64 Lymphs 23 Monocytes 10 Eos 3 Basos 0 Immature Cells MELTER HELPER Neutrophils (Absolute) 4.5 1.4-7.0 Lymphs (Absolute) 1.6 0.7-3.1 Monocytes(Absolute) 0.7 0.1-0.9 Eos (Absolute) 0.2 0.0-0.4 Baso (Absolute) 0.0 0.0-0.2 Immature Granulocytes 0 Immature Grans (Abs) 0.0 0.0-0.1 NRBC MELTER HELPER Hematology Comments: MELTER HELPER PROCEDURES Procedure Date Ordered Related Diagnosis Body Site T CELL, ABSOLUTE COUNT/RATIO October 04, 2016 COMPREHEN METABOLIC PANEL October 04, 2016 Office Visit, Est Pt., Level 3 October 04, 2016 Billed by outside source October 04, 2016 IMMUNIZATIONS No Known Immunizations
--- OUTSIDE RECORDS SUMMARY | 2016-12-18 12:09 | XMS REPORT ---
Author Author Carmela Whitmore Organization [employer] Address Unknown Phone Unavailable Care Team Providers Care Aquaculture Farm Manager Name Role Phone Carmela Whitmore CP Unavailable [...] Acquired immune deficiency syndrome 042 Active Problem retirement (current) use of 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 V58.69 Active Problem Lumbago 724.2 Active Problem Depressive disorder, not elsewhere classified 311 Active Problem Abdominal pain, unspecified site 789.00 Active Medications No Known Medications Results No Known Results Summary Purpose [employer] Submission
--- OUTSIDE RECORDS SUMMARY | 2016-12-18 12:09 | XMS REPORT ---
Author Author Alessia Erickson Organization [employer] Address Unknown Phone Unavailable Care Team Providers Care Felt Cementer Name Role Phone Alessia Erickson CP Unavailable [...] GERD (gastroesophageal reflux disease) K21.9 Active Problem intermediate card tender prescription opiate use Z79.899 Active Problem Cervicalgia M54.2 Active Assessment Abnormal chest xray R93.8 Active Problem Generalized anxiety disorder F41.1 Active Medications No Known Medications Results No Known Results Summary Purpose [employer] Submission
--- OUTSIDE RECORDS SUMMARY | 2016-12-18 12:09 | XMS REPORT ---
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 Active 857579657 Assessment Other constipation K59.09 Feb, Active 275259539 Problem Seasonal allergic rhinitis due to pollen J30.1 Active 02363243 Problem Primary insomnia F51.01 well-controlled 3852269 Problem Low back pain M54.5 Active 012088830 Problem Generalized anxiety disorder F41.1 Active 52546952 Problem AIDS B20 Active 65144983 Problem Chronic depression F32.9 Active 275246432 ALLERGIES Unknown Allergies SOCIAL HISTORY No smoking Hx information available PLAN OF CARE VITAL SIGNS MEDICATIONS Medication Instructions Dosage Frequency Start Date End Date Duration Status Strattera 25 MG Orally Once a day 1 capsule 24h Active Truvada 200-300 MG Orally Once a day 1 tablet 24h 30 days Active Omeprazole 40 MG Orally Once a day 1 capsule 24h Aug, 30 day(s ) Active Simethicone 180 MG Orally Four times a day 1 capsule as needed 6h Jan, 10 days Active Evotaz 300/150 mg Oral once a day 1 tab 24h Aug, 30 days Active Amitriptyline HCl 25 MG Orally Once a day 1-2 tablet at bedtime 24h Jan Active Baclofen 10 MG Orally Three times a day 1 tablet with food or milk 8h Mar, 10 days Active Celexa 40 MG Orally Once a day 1 tablet 24h Nov, 30 day(s) Active Fluticasone Propionate 50 MCG/ACT Nasally Once a day 2 spray in each nostril 24h Jan, 30 day(s) Active Colace 100 MG Orally twice a day 1 capsule as needed 12h 28 Feb, 2016 30 day(s) Active Augmentin 875-125 MG Orally Twice a day 1 tablet 12h Feb, Mar, 7 days Active Ventolin HFA 108 (90 Base) MCG/ACT Inhalation four times a day 2 puffs as needed 6h 30 Nov, 2015 30 days Active RESULTS No Results PROCEDURES No Known procedures IMMUNIZATIONS No Known Immunizations
--- OUTSIDE RECORDS SUMMARY | 2016-12-18 12:10 | XMS REPORT ---
Author Author Carmela Whitmore Organization [employer] Address Unknown Phone Unavailable Care Team Providers Care Handy Man Name Role Phone Carmela Whitmore CP Unavailable Allergies No Known Allergies Problems Problem Type Condition Code Onset Dates Condition Status Problem GERD (gastroesophageal reflux disease) K21.9 Active Problem Cervicalgia M54.2 Active Problem [facility] prescription opiate use Z79.899 Active Problem Abnormal urinalysis R82.90 Active Problem AIDS B20 Active Problem Urinary tract infection, site not specified N39.0 Active Problem Smoking F17.200 Active Problem Generalized anxiety disorder F41.1 Active Problem Chronic depression F32.9 Active Problem Low back pain M54.5 Active Medications No Known Medications Results No Known Results Summary Purpose [employer] Submission
--- OUTSIDE RECORDS SUMMARY | 2016-12-18 12:10 | XMS REPORT ---
Author Author Alessia Erickson [facility] Address [address] [place], [place] [address] Care Team Providers Care Medical Physicist Name Role Phone Alessia Erickson Unavailable PROBLEMS Type Condition ICD9-CM Code MIA35-TH Code Onset Dates Condition Status SNOMED Code Problem Dermatitis L30.9 Active 24027684 Problem Insomnia G47.00 Active 619515119 Problem Primary hypothyroidism E03.9 Active 43941857 Problem Intertrigo L30.4 Active 43369807 Problem Generalized anxiety disorder F41.1 Active 98416518 Problem COPD bronchitis J44.9 Active 10812177 Problem Cervicalgia M54.2 Active 134666169 Problem long-term prescription opiate use Z79.899 Active 008249798 Problem Anxiety F41.9 Active 90101475 Problem Ab[address] CT of the head R93.0 Active 036552772 Problem Cigarette nicotine dependence, uncomplicated F17.210 Active 90528313 Problem Bilateral headaches R51 Active 152739093 Problem AIDS B20 Active 02008433 Problem Primary insomnia F51.01 Active 2770380 Problem Low back pain M54.5 Active 478240075 Problem Chronic depression F32.9 Active 024492560 Problem Migraine, unspecified, not intractable, without status migrainosus G43.909 Active 11283663 Problem Restless leg syndrome G25.81 Active 19111072 Problem Seasonal allergic rhinitis due to pollen J30.1 Active 57104718 Problem Migraine with aura and without status migrainosus, not intractable G43.109 Active 7461643 Problem GERD (gastroesophageal reflux disease) K21.9 Active 722318874 Problem Slow transit constipation K59.01 Active 46045932 Problem Constipation by delayed colonic transit K59.01 Active 96205831 ALLERGIES Unknown Allergies SOCIAL HISTORY No smoking Hx information available PLAN OF CARE VITAL SIGNS MEDICATIONS Medication Instructions Dosage Frequency Start Date End Date Duration Status Ventolin HFA 108 (90 Base) MCG/ACT Inhalation four times a day 2 puffs as needed 6h 30 Nov, 2015 30 days Active Strattera 25 MG Orally Once a day 1 capsule 24h Active Levothyroxine Sodium 50 MCG Orally Once a day 1 tablet on an empty stomach in the morning 24h Jun, 30 day(s) Active Linzess 145 MCG Orally Once a day 1 capsule 24h 10 Apr, 2016 30 day(s) Active Fluconazole 200 MG Orally Once a day 1 tablet 24h Sep, 2 days Active Evotaz 300/150 mg Oral once a day 1 tab 24h Aug, 30 days Active Ketoconazole 2 % Externally Once a day as directed 24h May, 30 days Active Nicotrol 10 MG Inhalation 16 time(s) a day 1 puff as needed Sep, 30 days Active Chantix Starting Month Ed 0.5 MG X 11 & 1 MG X 42 Orally 0.5 mg po daily x 3 days then 0.5 mg bid x 4, then 1 mg BID as directed Sep, 30 days Active Celexa 20 MG Orally Once a day 1 tablet 24h Sep, 30 day(s) Active Ropinirole HCl 0.5 MG Orally once a day 1 tab at bedtime 24h 30 days Active Descovy 200-25 mg Orally Once a day 1 tablet 24h May, 30 days Active Temazepam 30 MG Orally Once a day 1 capsule at bedtime as needed 24h May 30 days Active Fluocinonide Emulsified Base 0.05 % Externally twice a day as directed 12h Mar, 30 days Active Celexa 40 MG Orally Once a day 1 tablet 24h Nov, 30 day(s) Active Simethicone 180 MG Orally Four times a day 1 capsule as needed 6h Jan, 10 days Active Omeprazole 40 MG Orally Once a day 1 capsule 24h Aug, 30 day(s ) Active Permethrin 5 % Externally Once a day 1 application to affected area 24h Oct, 7 day(s) Active Stiolto Respimat 2.5-2.5 MCG/ACT Inhalation Once a day 2 puffs 24h Sep, 30 days Active Trokendi XR 100 MG Orally Once a day 1 capsule 24h Sep, 30 day( s) Active Alprazolam 0.5 MG Orally 1 daily 1 tablet Sep, Oct, 30 days Active RESULTS No Results PROCEDURES No Known procedures IMMUNIZATIONS No Known Immunizations
--- OUTSIDE RECORDS SUMMARY | 2016-12-18 12:10 | XMS REPORT | Referral Summary ---
Author Author [facility] Organization [facility] Address Unknown Phone Unavailable Care Team Providers Care Netbackup Administrator Name Role Phone Awa Prabhakar PCP Encounter Date(s): 06/09/15 - 06/09/15 [facility] [address] [place], [place] [address] Discharge Disposition: Attending Physician: Glen Friedman MD Admitting Physician: Glen Friedman MD Vital Signs Most recent to 1 oldest [Reference Range]: Temperature Oral 36.3 degC [35.8-37.3 degC] (06/09/15 7:06 PM) Peripheral Pulse 81 bpm Rate [60-100 bpm] (06/09/15 7:06 PM) Respiratory Rate 18 br/min [14-20 br/min] (06/09/15 7:06 PM) Blood Pressure 110/82 mmHg [90-140/60-90 mmHg] (06/09/15 7:06 PM) SpO2 99 % (06/09/15 7:06 PM) Problem List Condition Effective Dates Status Health Status Informant MRSA(Confirmed) Active Tobacco Active patient user(Confirmed) Allergies, Adverse Reactions, Alerts No Known Medication Allergies Medications Evotaz tabs, Oral, Daily, 0 Refill(s) Start Date: 02/22/15 Status: Ordered Neurontin Oral, 0 Refill(s) Start Date: 02/22/15 Status: Ordered omeprazole Oral, Daily, 0 Refill(s) Start Date: 02/22/15 Status: Ordered temazepam Oral, Bedtime (once a day), 0 Refill(s) Start Date: 02/22/15 Status: Ordered Truvada tabs, Oral, Daily, 0 Refill(s) Start Date: 02/22/15 Status: Ordered Results No data available for this section Immunizations No data available for this section Procedures No data available for this section Social History Social History Type Response Smoking Status Current every day smoker; Type: Cigarettes; Tobacco use per day: 1 Pack Assessment and Plan No data available for this section
--- OUTSIDE RECORDS SUMMARY | 2016-12-18 12:10 | XMS REPORT ---
Author Author Carmela Whitmore [facility] Address [address], [place] [id number] Care Team Providers Care Final Cigar And Box Examiner Name Role Phone Carmela Whitmore Unavailable PROBLEMS Type Condition ICD9-CM Code SAH69-SN Code Onset Dates Condition Status SNOMED Code Problem Chronic depression F32.9 Active 286105559 Problem Primary insomnia F51.01 well-controlled 8350541 Problem AIDS B20 Active 08799923 Problem Constipation by delayed colonic transit K59.01 Active 18393388 Problem Migraine with aura and without status migrainosus, not intractable G43.109 Active 5022781 Problem Slow transit constipation K59.01 Active 06084751 Problem Seasonal allergic rhinitis due to pollen J30.1 Active 81283657 Problem Restless leg syndrome G25.81 Active 19859103 Problem Migraine, unspecified, not intractable, without status migrainosus G43.909 Active 73520384 Problem senior care prescription opiate use Z79.899 Active 824891948 Problem Cervicalgia M54.2 Active 855075251 Problem Generalized anxiety disorder F41.1 Active 85739956 Problem GERD (gastroesophageal reflux disease) K21.9 Active 476314627 Problem Low back pain M54.5 Active 014160157 ALLERGIES Unknown Allergies SOCIAL HISTORY No smoking Hx information available PLAN OF CARE VITAL SIGNS MEDICATIONS Unknown Medications RESULTS No Results PROCEDURES No Known procedures IMMUNIZATIONS No Known Immunizations
--- OUTSIDE RECORDS SUMMARY | 2016-12-18 12:10 | XMS REPORT ---
Author Author Carmela Whitmore Organization [employer] Address Unknown Phone Unavailable Care Team Providers Care Band Tier Name Role Phone Carmela Whitmore CP Unavailable Allergies No Known Allergies Problems Problem Type Condition Code Onset Dates Condition Status Problem GERD (gastroesophageal reflux disease) K21.9 Active Problem Chronic depression F32.9 Active Problem Low back pain M54.5 Active Problem AIDS B20 Active Problem Cervicalgia M54.2 Active Problem [facility] prescription opiate use Z79.899 Active Problem Smoking F17.200 Active Problem Generalized anxiety disorder F41.1 Active Medications No Known Medications Results No Known Results Summary Purpose [employer] Submission
--- OUTSIDE RECORDS SUMMARY | 2016-12-18 12:10 | XMS REPORT ---
Author Author Awa Prabhakar Organization [employer] Address Unknown Phone Unavailable Care Team Providers Care Technical Rep Name Role Phone Awa Prabhakar CP Unavailable Allergies No Known Allergies Problems Problem Type Condition ICD-9 Code Onset Dates Condition Status Problem Generalized anxiety disorder 300.02 Active Problem Nondependent tobacco use disorder 305.1 Active Problem Cervicalgia 723.1 Active Problem GERD (gastroesophageal reflux disease) 530.81 Active Problem Colitis 558.9 Active Problem Acquired immune deficiency syndrome 042 Active Problem art museum aide (current) use of 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 V58.69 Active Problem Lumbago 724.2 Active Problem Depressive disorder, not elsewhere classified 311 Active Problem Abdominal pain, unspecified site 789.00 Active Assessment Diarrhea 787.91 Active Problem Morbid obesity 278.01 Active Problem Unspecified sinusitis (chronic) 473.9 Active Medications No Known Medications Results No Known Results Summary Purpose [employer] Submission
--- OUTSIDE RECORDS SUMMARY | 2016-12-18 12:10 | XMS REPORT ---
Author Author Alessia Erickson [facility] Address [address], [place] [id number] Care Team Providers Care Ehs Engineer Name Role Phone Alessia Erickson Unavailable PROBLEMS Type Condition ICD9-CM Code GKL66-ES Code Onset Dates Condition Status SNOMED Code Problem GERD (gastroesophageal reflux disease) K21.9 Active 919863447 Problem [facility]P prescription opiate use Z79.899 Active 230062652 Problem Primary hypothyroidism E03.9 Active 71288593 Problem Cervicalgia M54.2 Active 354575434 Problem Insomnia G47.00 Active 588783241 Problem Generalized anxiety disorder F41.1 Active [address] Problem [address] of the head R93.0 Active 558209325 Problem Bilateral headaches R51 Active 583791775 Problem Anxiety F41.9 Active 12919798 Problem Chronic pruritus L29.9 Active 109171891 Problem Body lice infestation B85.1 Active 50059778 Problem AIDS B20 Active 69936163 Problem Chronic depression F32.9 Active 429966657 Problem Low back pain M54.5 Active 109553955 Problem COPD bronchitis J44.9 Active 46401046 Problem Cigarette nicotine dependence, uncomplicated F17.210 Active 49012925 Problem Other chronic pain G89.29 Active 02584997 Problem Intertrigo L30.4 Active 14722083 Problem Slow transit constipation K59.01 Active 36766703 Problem Migraine, unspecified, not intractable, without status migrainosus G43.909 Active 10488313 Problem Primary insomnia F51.01 Active 6079265 Problem Seasonal allergic rhinitis due to pollen J30.1 Active 89036127 Problem Constipation by delayed colonic transit K59.01 Active 16235735 Problem Dermatitis L30.9 Active 68609478 Problem Restless leg syndrome G25.81 Active 26054605 Problem Migraine with aura and without status migrainosus, not intractable G43.109 Active 9617346 ALLERGIES Unknown Allergies SOCIAL HISTORY No smoking Hx information available PLAN OF CARE VITAL SIGNS MEDICATIONS Unknown Medications RESULTS No Results PROCEDURES No Known procedures IMMUNIZATIONS No Known Immunizations
--- OUTSIDE RECORDS SUMMARY | 2016-12-18 12:10 | XMS REPORT ---
Author Author Carmela Whitmore [facility] Address [address] [place], [place] [id number] Care Team Providers Care Furnace Filler Name Role Phone Carmela Whitmore Unavailable PROBLEMS Type Condition ICD9-CM Code QHW87-LG Code Onset Dates Condition Status SNOMED Code Problem Slow transit constipation K59.01 Active 66990035 Problem Restless leg syndrome G25.81 Active 99895185 Problem Migraine, unspecified, not intractable, without status migrainosus G43.909 Active [address]40 Problem [address] of the head R93.0 Active 017261481 Problem Insomnia G47.00 Active 663059147 Problem Constipation by delayed colonic transit K59.01 Active 42998424 Problem Migraine with aura and without status migrainosus, not intractable G43.109 Active 0870673 Problem Primary hypothyroidism E03.9 Active 64413783 Problem Dermatitis L30.9 Active 35622582 Problem senior living prescription opiate use Z79.899 Active 605276490 Problem Cervicalgia M54.2 Active 698806203 Problem GERD (gastroesophageal reflux disease) K21.9 Active 046008625 Problem Chronic depression F32.9 Active 800339857 Problem AIDS B20 Active 55770888 Problem Generalized anxiety disorder F41.1 Active 20605703 Problem Primary insomnia F51.01 Active 3186992 Problem Low back pain M54.5 Active 879161089 Problem Seasonal allergic rhinitis due to pollen J30.1 Active 86994031 ALLERGIES Unknown Allergies SOCIAL HISTORY No smoking Hx information available PLAN OF CARE Activity Details Pending Test CT Scan : Head, without contrast VITAL SIGNS MEDICATIONS Unknown Medications RESULTS No Results PROCEDURES No Known procedures IMMUNIZATIONS No Known Immunizations
--- OUTSIDE RECORDS SUMMARY | 2016-12-18 12:10 | XMS REPORT ---
Author Author Carmela Whitmore [facility] Address [address] [place], [place] [id number] Care Team Providers Care R D Engineer Name Role Phone Carmela Whitmore Unavailable PROBLEMS Type Condition ICD9-CM Code NJO83-ME Code Onset Dates Condition Status SNOMED Code Problem Seasonal allergic rhinitis due to pollen J30.1 Active 88920792 Problem Migraine, unspecified, not intractable, without status migrainosus G43.909 Active 86031372 Problem Slow transit constipation K59.01 Active 27168995 Problem Insomnia G47.00 Active 003662995 Problem Primary hypothyroidism E03.9 Active 39292026 Problem Migraine with aura and without status migrainosus, not intractable G43.109 Active 2993751 Problem Restless leg syndrome G25.81 Active 94052576 Problem Dermatitis L30.9 Active 02132087 Problem Constipation by delayed colonic transit K59.01 Active 87701644 Problem GERD (gastroesophageal reflux disease) K21.9 Active 550042052 Problem [facility] prescription opiate use Z79.899 Active 449204798 Problem Low back pain M54.5 Active 804894834 Problem Chronic depression F32.9 Active 581899559 Problem Cervicalgia M54.2 Active 049398457 Problem AIDS B20 Active 44501001 Problem Generalized anxiety disorder F41.1 Active 13114801 Problem Primary insomnia F51.01 Active 3218030 ALLERGIES Unknown Allergies SOCIAL HISTORY No smoking Hx information available PLAN OF CARE VITAL SIGNS MEDICATIONS Unknown Medications RESULTS No Results PROCEDURES No Known procedures IMMUNIZATIONS No Known Immunizations
--- OUTSIDE RECORDS SUMMARY | 2016-12-18 12:10 | XMS REPORT ---
Author Author Alessia Erickson [facility] Address [address] [place], [place] [id number] Care Team Providers Care Physical Meteorologist Name Role Phone Alessia Erickson Unavailable PROBLEMS Type Condition ICD9-CM Code LND38-NC Code Onset Dates Condition Status SNOMED Code Problem GERD (gastroesophageal reflux disease) K21.9 Active 363019567 Problem snf prescription opiate use Z79.899 Active 862920703 Problem Cervicalgia M54.2 Active 427761113 Problem Insomnia G47.00 Active 763701646 Problem Generalized anxiety disorder F41.1 Active 855[address]206 Problem Ab[address] of the head R93.0 Active 753848418 Problem Low back pain M54.5 Active 525813257 Problem Anxiety F41.9 Active 41271560 Problem Cigarette nicotine dependence, uncomplicated F17.210 Active 14626413 Problem Bilateral headaches R51 Active 005498633 Problem Dorsalgia M54.9 Active 381154249 Problem Chronic pruritus L29.9 Active 035263228 Problem Primary insomnia F51.01 Active 9246235 Problem AIDS B20 Active 85189274 Problem Chronic depression F32.9 Active 340990162 Problem Intertrigo L30.4 Active 93283973 Problem COPD bronchitis J44.9 Active 83348610 Problem Body lice infestation B85.1 Active 58249763 Problem Other chronic pain G89.29 Active 34286685 Problem Migraine, unspecified, not intractable, without status migrainosus G43.909 Active 47722274 Problem Restless leg syndrome G25.81 Active 52620775 Problem Seasonal allergic rhinitis due to pollen J30.1 Active 40375618 Problem Slow transit constipation K59.01 Active 23438590 Problem Dermatitis L30.9 Active 01283741 Problem Primary hypothyroidism E03.9 Active 75036681 Problem Migraine with aura and without status migrainosus, not intractable G43.109 Active 7004984 Problem Constipation by delayed colonic transit K59.01 Active 22195356 ALLERGIES Unknown Allergies SOCIAL HISTORY No smoking Hx information available PLAN OF CARE VITAL SIGNS MEDICATIONS Unknown Medications RESULTS No Results PROCEDURES No Known procedures IMMUNIZATIONS No Known Immunizations
--- OUTSIDE RECORDS SUMMARY | 2016-12-18 12:10 | XMS REPORT ---
Author Author Alessia Erickson Organization [employer] Address Unknown Phone Unavailable Care Team Providers Care Cotton Tipper Name Role Phone Alessia Erickson CP Unavailable [...] Acquired immune deficiency syndrome 042 Active Problem senior care (current) use of 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 V58.69 Active Problem Lumbago 724.2 Active Problem Depressive disorder, not elsewhere classified 311 Active Problem Abdominal pain, unspecified site 789.00 Active Medications Medication Code System Code Instructions Start Date End Date Status Dosage Permethrin [facility] [address]-69 5 % Externally Leave on hair x 10 min rinse with water. Remove nits with fine-tooth comb. Repeat x 1 wk if lice/nits present Nov 29, 2014 as directed Results No Known Results Summary Purpose [employer] Submission
--- OUTSIDE RECORDS SUMMARY | 2016-12-18 12:10 | XMS REPORT ---
Author Author Alessia Erickson [facility] Address [address] [place], [place] [id number] Care Team Providers Care Commercial Kitchen Service Technician Name Role Phone Alessia Erickson Unavailable PROBLEMS Type Condition ICD9-CM Code WEL81-UC Code Onset Dates Condition Status SNOMED Code Problem GERD (gastroesophageal reflux disease) K21.9 Active 788588187 Problem alf prescription opiate use Z79.899 Active 716577304 Problem Cervicalgia M54.2 Active 573648164 Problem Insomnia G47.00 Active 918356497 Problem Generalized anxiety disorder F41.1 Active [address]83 Problem Ab[address] of the head R93.0 Active 987459409 Problem Low back pain M54.5 Active 673269053 Problem Anxiety F41.9 Active 89682410 Problem Cigarette nicotine dependence, uncomplicated F17.210 Active 30579485 Problem Bilateral headaches R51 Active 205483577 Problem Dorsalgia M54.9 Active 616938848 Problem Chronic pruritus L29.9 Active 492405352 Problem Primary insomnia F51.01 Active 8486549 Problem AIDS B20 Active 95087135 Problem Chronic depression F32.9 Active 372644462 Problem Intertrigo L30.4 Active 83887192 Problem COPD bronchitis J44.9 Active 39114878 Problem Body lice infestation B85.1 Active 38744067 Problem Other chronic pain G89.29 Active 28437321 Problem Migraine, unspecified, not intractable, without status migrainosus G43.909 Active 65354946 Problem Restless leg syndrome G25.81 Active 38109997 Problem Seasonal allergic rhinitis due to pollen J30.1 Active 86023813 Problem Slow transit constipation K59.01 Active 57981906 Problem Dermatitis L30.9 Active 93289453 Problem Primary hypothyroidism E03.9 Active 31748256 Problem Migraine with aura and without status migrainosus, not intractable G43.109 Active 4725765 Problem Constipation by delayed colonic transit K59.01 Active 94026841 ALLERGIES Unknown Allergies SOCIAL HISTORY No smoking Hx information available PLAN OF CARE VITAL SIGNS MEDICATIONS Medication Instructions Dosage Frequency Start Date End Date Duration Status Celexa 40 MG Orally Once a day 1 tablet 24h 15 Nov, 2015 30 day(s) Active RESULTS No Results PROCEDURES No Known procedures IMMUNIZATIONS No Known Immunizations
--- OUTSIDE RECORDS SUMMARY | 2016-12-18 12:10 | XMS REPORT ---
Author Author Alessia Erickson [facility] Address [address] [place], [place] [address] Care Team Providers Care Filer Finish Name Role Phone Alessia Erickson Unavailable PROBLEMS Type Condition ICD9-CM Code SXL75-EI Code Onset Dates Condition Status SNOMED Code Problem GERD (gastroesophageal reflux disease) K21.9 Active 874055860 Problem halfway prescription opiate use Z79.899 Active 878123558 Problem Cervicalgia M54.2 Active 711181330 Problem Insomnia G47.00 Active 033257031 Problem Generalized anxiety disorder F41.1 Active 02168018 Problem Abnormal CT of the head R93.0 Active 961061734 Problem Low back pain M54.5 Active 244597282 Problem Anxiety F41.9 Active 37236540 Problem Cigarette nicotine dependence, uncomplicated F17.210 Active 70080158 Problem Bilateral headaches R51 Active 290021395 Problem Dorsalgia M54.9 Active 009604958 Problem Chronic pruritus L29.9 Active 673016316 Problem Primary insomnia F51.01 Active 3073981 Problem AIDS B20 Active 56329936 Problem Chronic depression F32.9 Active 464304092 Problem Intertrigo L30.4 Active 55971199 Problem COPD bronchitis J44.9 Active 45604269 Problem Body lice infestation B85.1 Active 74024542 Problem Other chronic pain G89.29 Active 95837361 Problem Migraine, unspecified, not intractable, without status migrainosus G43.909 Active 44610316 Problem Restless leg syndrome G25.81 Active 79524558 Problem Seasonal allergic rhinitis due to pollen J30.1 Active 49802756 Problem Slow transit constipation K59.01 Active 06810058 Problem Dermatitis L30.9 Active 56427583 Problem Primary hypothyroidism E03.9 Active 85719170 Problem Migraine with aura and without status migrainosus, not intractable G43.109 Active 8196966 Problem Constipation by delayed colonic transit K59.01 Active 74627231 ALLERGIES Unknown Allergies SOCIAL HISTORY No smoking Hx information available PLAN OF CARE VITAL SIGNS MEDICATIONS Unknown Medications RESULTS No Results PROCEDURES No Known procedures IMMUNIZATIONS No Known Immunizations
--- OUTSIDE RECORDS SUMMARY | 2016-12-18 12:11 | XMS REPORT ---
Author Author Carmela Whitmore [facility] Address [address] [place], [place] [id number] Care Team Providers Care Preforms Laminator Name Role Phone Carmela Whitmore Unavailable PROBLEMS Type Condition ICD9-CM Code EGB55-EX Code Onset Dates Condition Status SNOMED Code Problem Seasonal allergic rhinitis due to pollen J30.1 Active 06170324 Problem Migraine, unspecified, not intractable, without status migrainosus G43.909 Active 65969210 Problem Slow transit constipation K59.01 Active 95388561 Problem Insomnia G47.00 Active 695751820 Problem Primary hypothyroidism E03.9 Active 74705801 Problem Migraine with aura and without status migrainosus, not intractable G43.109 Active 2787291 Problem Restless leg syndrome G25.81 Active 19736799 Problem Dermatitis L30.9 Active 00133449 Problem Constipation by delayed colonic transit K59.01 Active 93338998 Problem GERD (gastroesophageal reflux disease) K21.9 Active 253767865 Problem half-way prescription opiate use Z79.899 Active 060601709 Problem Low back pain M54.5 Active 976258768 Problem Chronic depression F32.9 Active 759962695 Problem Cervicalgia M54.2 Active 366608039 Problem AIDS B20 Active 88008486 Problem Generalized anxiety disorder F41.1 Active 82209746 Problem Primary insomnia F51.01 well-controlled 7366003 ALLERGIES Unknown Allergies SOCIAL HISTORY No smoking Hx information available PLAN OF CARE VITAL SIGNS MEDICATIONS Unknown Medications RESULTS No Results PROCEDURES No Known procedures IMMUNIZATIONS No Known Immunizations
--- OUTSIDE RECORDS SUMMARY | 2016-12-18 12:11 | XMS REPORT ---
Author Author Carmela Whitmore Organization [employer] Address Unknown Phone Unavailable Care Team Providers Care Fire Management Specialist Name Role Phone Carmela Whitmore CP Unavailable Allergies No Known Allergies Problems Problem Type Condition ICD-9 Code Onset Dates Condition Status Problem Generalized anxiety disorder 300.02 Active Problem Nondependent tobacco use disorder 305.1 Active Problem Cervicalgia 723.1 Active Problem GERD (gastroesophageal reflux disease) 530.81 Active Problem Colitis 558.9 Active Problem Acquired immune deficiency syndrome 042 Active Problem shelter (current) use of 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 V58.69 Active Problem Lumbago 724.2 Active Problem Depressive disorder, not elsewhere classified 311 Active Problem Abdominal pain, unspecified site 789.00 Active Assessment Upper respiratory infection 465.9 Active Problem Morbid obesity 278.01 Active Problem Unspecified sinusitis (chronic) 473.9 Active Medications Medication Code System Code Instructions Start Date End Date Status Dosage Zithromax Z-Ed [facility] [address]-97 250 MG Orally Once a day Nov 02, 2014 2 tablets on the first day, then 1 tablet daily for 4 days PredniSONE [facility] [address]-05 10 MG Orally Once a day Nov 02, 2014 taper - 8,7,6,5,4,3,2,1 Results No Known Results Summary Purpose [employer] Submission
--- OUTSIDE RECORDS SUMMARY | 2016-12-18 12:11 | XMS REPORT ---
Author Author Huang Arias Organization [employer] Address Unknown Phone Unavailable Care Team Providers Care Branch Lending Manager Name Role Phone Huang Arias CP Unavailable Allergies No Known Allergies Problems Problem Type Condition ICD-9 Code Onset Dates Condition Status Problem Generalized anxiety disorder 300.02 Active Problem Nondependent tobacco use disorder 305.1 Active Problem Cervicalgia 723.1 Active Problem Morbid obesity 278.01 Active Problem Unspecified sinusitis (chronic) 473.9 Active Problem GERD (gastroesophageal reflux disease) 530.81 Active Problem Colitis 558.9 Active Problem Acquired immune deficiency syndrome 042 Active 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
--- OUTSIDE RECORDS SUMMARY | 2016-12-18 12:11 | XMS REPORT ---
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 Active Problem Lumbago 724.2 Active Problem Depressive disorder, not elsewhere classified 311 Active Problem Abdominal pain, unspecified site 789.00 Active Assessment Upper respiratory infection J06.9 Active Assessment Head lice B85.0 Active Problem Morbid obesity 278.01 Active Problem Unspecified sinusitis (chronic) 473.9 Active Medications Medication Code System Code Instructions Start Date End Date Status Dosage Permethrin [facility] [address]-64 1 % Externally for hair Jan 10, 2015 Jan 13, 2015 as directed Zithromax Z-Ed [facility] [address]-69 250 MG Orally Once a day Jan 10, 2015 Jan 15, 2015 2 tablets on the first day, then 1 tablet daily for 4 days Results No Known Results Summary Purpose [employer] Submission
--- OUTSIDE RECORDS SUMMARY | 2016-12-18 12:11 | XMS REPORT ---
Author Author Alessia Erickson [facility] Address [address] [place], [place] [address] Care Team Providers Care Awning Assembler Name Role Phone Alessia Erickson Unavailable PROBLEMS Type Condition ICD9-CM Code LKN23-MR Code Onset Dates Condition Status SNOMED Code Problem GERD (gastroesophageal reflux disease) K21.9 Active 096875343 Problem terminal worker prescription opiate use Z79.899 Active 119154381 Problem Cervicalgia M54.2 Active 690077477 Problem Insomnia G47.00 Active 984535238 Problem Generalized anxiety disorder F41.1 Active 25186204 Problem Abnormal CT of the head R93.0 Active 109039084 Problem Low back pain M54.5 Active 518304549 Problem Anxiety F41.9 Active 01264232 Problem Cigarette nicotine dependence, uncomplicated F17.210 Active 34063905 Problem Bilateral headaches R51 Active 247034448 Problem Dorsalgia M54.9 Active 779036048 Problem Chronic pruritus L29.9 Active 584473635 Problem Primary insomnia F51.01 Active 9942324 Problem AIDS B20 Active 74761736 Problem Chronic depression F32.9 Active 660431950 Problem Intertrigo L30.4 Active 47172196 Problem COPD bronchitis J44.9 Active 15195462 Problem Body lice infestation B85.1 Active 87569609 Problem Other chronic pain G89.29 Active 10773454 Problem Migraine, unspecified, not intractable, without status migrainosus G43.909 Active 15855471 Problem Restless leg syndrome G25.81 Active 18972345 Problem Seasonal allergic rhinitis due to pollen J30.1 Active 13066299 Problem Slow transit constipation K59.01 Active 02587230 Problem Dermatitis L30.9 Active 38484504 Problem Primary hypothyroidism E03.9 Active 80592569 Problem Migraine with aura and without status migrainosus, not intractable G43.109 Active 7928449 Problem Constipation by delayed colonic transit K59.01 Active 18378821 ALLERGIES No Information SOCIAL HISTORY Never Assessed PLAN OF CARE VITAL SIGNS MEDICATIONS Unknown Medications RESULTS No Results PROCEDURES No Known procedures IMMUNIZATIONS No Known Immunizations MEDICAL (GENERAL) HISTORY Type Description Date Medical History Spasm, muscle (728.85) ; Medical History Blues , (Desc:Depression) ; Medical History Acquired immune deficiency syndrome ; Medical History Brash , (Desc:Heartburn) ; Medical History Muscle spasm ; Medical History Active smoker ; Medical History Chronic LBP , (Desc:Chronic low back pain) ; Medical History Depressive disorder, not elsewhere classified Medical History Lumbago Medical History Nondependent tobacco use disorder Medical History Generalized anxiety disorder Medical History Unspecified sinusitis (chronic) Medical History Morbid obesity Medical History Cervicalgia Medical History Abdominal pain, unspecified site Medical History terminal worker (current) 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
--- OUTSIDE RECORDS SUMMARY | 2016-12-18 12:11 | XMS REPORT ---
Author Author Carmela Whitmore [facility] eClinicalWorks Address Unknown Phone Unavailable Care Team Providers Care Cashier Receptionist Name Role Phone Carmela Whitmore Unavailable Allergies No Known Allergies Problems Problem Type Condition ICD-9 Code Onset Dates Condition Status Problem Cervicalgia 723.1 Inactive Problem Unspecified disorder of the teeth and supporting structures 525.9 Inactive Problem Pain in joint, forearm 719.43 Inactive Problem Symptomatic menopausal or female climacteric states 627.2 Inactive Problem Qjjfihxkqp-fafcjmw-qadpiyxbe, combined [DTP] [DtaP] V06.1 Inactive Assessment Sinusitis 473.9 Active Problem Need for prophylactic vaccination against streptococcus pneumoniae ( pneumococcus) V03.82 Inactive Assessment Human immunodeficiency virus (HIV) disease 042 Active Problem Nondependent tobacco use disorder 305.1 Active Problem Lumbago 724.2 Active Problem Loss of weight 783.21 Inactive Problem Unspecified vaginitis and vulvovaginitis 616.10 Inactive Problem Human immunodeficiency virus [HIV] 042 Active Problem Other psychological or physical stress, not elsewhere classified V62.89 Inactive Problem Unspecified trichomoniasis 131.9 Inactive Problem Leukorrhea, not specified as infective 623.5 Inactive Problem Abdominal pain, unspecified site 789.00 Inactive Problem Routine gynecological examination V72.31 Active Problem Asymptomatic human immunodeficiency virus (HIV) infection status V08 Inactive Problem Dysuria 788.1 Inactive Problem Anorexia 783.0 Inactive Problem Unspecified drug dependence, unspecified abuse 304.90 Inactive Problem Attention deficit disorder of childhood without mention of hyperactivity 314.00 Inactive Problem Human immunodeficiency virus (HIV) disease 042 Active Problem Unspecified genital herpes 054.10 Inactive Problem Acute upper respiratory infections of unspecified site 465.9 Inactive Problem Screening examination for pulmonary tuberculosis V74.1 Inactive Problem Morbid obesity 278.01 Inactive Problem Heartburn 787.1 Active Problem Headache 784.0 Inactive Problem Depressive disorder, not elsewhere classified 311 Active Problem Surgical or other procedure not carried out because of patient's decision V64.2 Inactive Problem Spasm of muscle 728.85 Inactive Problem Generalized anxiety disorder 300.02 Active Problem Urinary tract infection, site not specified 599.0 Inactive Problem Unspecified dental caries 521.00 Inactive Problem Screening examination for venereal disease V74.5 Inactive Problem Counseling on substance use and abuse V65.42 Inactive Problem Trichomonal vulvovaginitis 131.01 Inactive Problem Unspecified sinusitis (chronic) 473.9 Inactive Problem Other and unspecified mycoses 117.9 Inactive Problem Unspecified sleep disturbance 780.50 Inactive Problem Candidiasis of vulva and vagina 112.1 Inactive Problem Anxiety state, unspecified 300.00 Inactive Problem Need for prophylactic vaccination and inoculation, Influenza V04.81 Inactive Problem half-way (current) use of 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 V58.69 Inactive Problem Abdominal pain, epigastric 789.06 Inactive Medications Medication Code System Code Instructions Start Date End Date Status Dosage Ryan [facility] [address]-56 300 MG Oral 1 (one) daily July 26, 2013 Active 1 Erikuvada [facility] [address]-60 200-300 MG Oral 1 (one) daily July 26, 2013 Active 1 tablet BusPIRone HCl [facility] [address]-91 10 MG Orally TID Dec 03, 2013 Active 1 tablet Clonidine HCl [facility] [address]-85 0.1 MG Orally Once a day Dec 03, 2013 Active 1 tablet HydrOXYzine HCl [facility] [address]-85 50 MG Oral 1 (one) three times daily, as needed Oct 27, 2013 Active 1 Pantoprazole Sodium [facility] [address]-51 40 MG Oral 1 (one) Tablet DR daily July 26, 2013 Active 1 tablet Temazepam [facility] [address]-29 15 MG Orally Once a day Mar 14, 2014 Active 1 capsule at bedtime as needed Brandiada [facility] [address]-83 200-300 MG Orally Once a day Apr 12, 2014 Active 1 tablet Zithromax Z-Ed [facility] [address]-56 250 MG Orally Once a day Apr 12, 2014 Active 2 tablets on the first day, then 1 tablet daily for 4 days Norvir [facility] [address]-96 100 MG Oral 1 (one) daily July 26, 2013 Active 1 capsule with a meal Results No Known Results Summary Purpose eClinicalWorks Submission
--- OUTSIDE RECORDS SUMMARY | 2016-12-18 12:11 | XMS REPORT ---
Author Author Carmela Whitmore [facility] Address [address], [place] [id number] Care Team Providers Care Green Belt Name Role Phone Carmela Whitmore Unavailable PROBLEMS Type Condition ICD9-CM Code [id number] Code Onset Dates Condition Status SNOMED Code Problem Slow transit constipation K59.01 Active 11127409 Problem Restless leg syndrome G25.81 Active 97975203 Problem Migraine, unspecified, not intractable, without status migrainosus G43.909 Active 21021834 Problem Ab[address] CT of the head R93.0 Active 578172589 Problem Insomnia G47.00 Active 926822965 Problem Constipation by delayed colonic transit K59.01 Active 76158751 Problem Migraine with aura and without status migrainosus, not intractable G43.109 Active 4314962 Problem Primary hypothyroidism E03.9 Active 18883410 Problem Dermatitis L30.9 Active 91272360 Problem longterm prescription opiate use Z79.899 Active 035082523 Problem Cervicalgia M54.2 Active 618281514 Problem GERD (gastroesophageal reflux disease) K21.9 Active 410115310 Problem Chronic depression F32.9 Active 206833861 Problem AIDS B20 Active 31900087 Problem Generalized anxiety disorder F41.1 Active 28094522 Problem Primary insomnia F51.01 Active 0088256 Problem Low back pain M54.5 Active 378156768 Problem Seasonal allergic rhinitis due to pollen J30.1 Active 13836328 ALLERGIES Unknown Allergies SOCIAL HISTORY No smoking Hx information available PLAN OF CARE VITAL SIGNS MEDICATIONS Unknown Medications RESULTS No Results PROCEDURES No Known procedures IMMUNIZATIONS No Known Immunizations
--- OUTSIDE RECORDS SUMMARY | 2016-12-18 12:11 | XMS REPORT ---
Author Author Carmela Whitmore [facility] Address [address], [place] [id number] Care Team Providers Care Senior Compliance Analyst Name Role Phone Carmela Whitmore Unavailable PROBLEMS Type Condition ICD9-CM Code [id number] Code Onset Dates Condition Status SNOMED Code Problem Seasonal allergic rhinitis due to pollen J30.1 Active 76762331 Problem Migraine, unspecified, not intractable, without status migrainosus G43.909 Active 96220991 Problem Slow transit constipation K59.01 Active 53646579 Problem Insomnia G47.00 Active 282669367 Problem Primary hypothyroidism E03.9 Active 00793748 Problem Migraine with aura and without status migrainosus, not intractable G43.109 Active 5143439 Problem Restless leg syndrome G25.81 Active 92965069 Problem Dermatitis L30.9 Active 22574150 Problem Constipation by delayed colonic transit K59.01 Active 05354384 Problem GERD (gastroesophageal reflux disease) K21.9 Active 168966896 Problem USP prescription opiate use Z79.899 Active 690617132 Problem Low back pain M54.5 Active 457766072 Problem Chronic depression F32.9 Active 073309828 Problem Cervicalgia M54.2 Active 222448607 Problem AIDS B20 Active 16633130 Problem Generalized anxiety disorder F41.1 Active 56603355 Problem Primary insomnia F51.01 Active 0991367 ALLERGIES Unknown Allergies SOCIAL HISTORY No smoking Hx information available PLAN OF CARE VITAL SIGNS MEDICATIONS Medication Instructions Dosage Frequency Start Date End Date Duration Status Nortriptyline HCl 25 MG Orally Once a day 1 capsule 24h Apr, 30 day(s) Active RESULTS No Results PROCEDURES No Known procedures IMMUNIZATIONS No Known Immunizations
--- OUTSIDE RECORDS SUMMARY | 2016-12-18 12:11 | XMS REPORT ---
Author Author Carmela Whitmore [facility] eClinicalWorks Address Unknown Phone Unavailable Care Team Providers Care Studio Assistant Name Role Phone Carmela Whitmore Unavailable Allergies No Known Allergies Problems Problem Type Condition Code Onset Dates Condition Status Assessment Cloudy urine R82.90 Active Problem intermediate card tender prescription opiate use Z79.899 Active Problem GERD (gastroesophageal reflux disease) K21.9 Active Assessment Abnormal urinalysis R82.90 Active Problem AIDS B20 Active Problem Chronic depression F32.9 Active Problem Abnormal urinalysis R82.90 Active Problem Generalized anxiety disorder F41.1 Active Problem Cervicalgia M54.2 Active Problem Low back pain M54.5 Active Problem Smoking F17.200 Active Medications Medication Code System Code Instructions Start Date End Date Status Dosage Neurontin [facility] [address]-42 100 MG Orally Three times a day Mar 06, 2015 as directed Truvada [facility] [address]-88 200-300 MG Oral 1 (one) daily July 26, 2013 1 tablet Nicotine Step 2 [facility] [address]1989 14 MG/24HR Transdermal Once a day Mar 20, 2015 1 patch to skin Omeprazole [facility] [address]-23 40 MG Orally Once a day August 15, 2014 1 capsule Strattera [facility] [address]-46 40 MG Orally Once a day Mar 06, 2015 1 capsule in the morning Cipro [facility] [address]-80 500 MG Orally Twice a day Mar 24, 2015 1 tablet Nicotine Step 3 [facility] [address]92-[address]558 7 MG/24HR Transdermal Once a day Mar 20, 2015 1 patch to skin Nicotine Step 1 [facility] 19663-[address]406 21 MG/24HR Transdermal Once a day Mar 20, 2015 1 patch to skin Symbicort [facility] [address]-06 160-4.5 MCG/ACT Inhalation Twice a day Mar 06, 2015 2 puffs Diclofenac Sodium [facility] [address]-96 75 MG Orally Twice a day Mar 14, 2015 1 tablet HydrOXYzine HCl [facility] [address]-93 50 MG Oral QHS Oct 27, 2013 1 Temazepam [facility] [address]-65 30 MG Orally Once a day Mar 14, 2014 Mar 24, 2015 1 capsule at bedtime as needed Evotaz [facility] 3975[address]-93 300/150 mg Oral Daily August 15, 2014 1 Baclofen [facility] [address]-43 10 MG Orally Three times a day Mar 20, 2015 1 tablet with food or milk Procedures Procedure Coding System Code Date Billed by outside source CPT-4 NOBLL Mar 22, 2015 URINALYSIS, AUTO, W/O SCOPE [facility] CPT-4 89488 Mar 22, 2015 Results Name Result Date Reference Range Unit Abnormality Flag Urinalysis Automated (UA) without Micro ----Billirubin 1.0 (++) 20150322 ----Ketones 5 (+) 20150322 ----S.G. 1.015 [id number] 1.015 - 1.030 ----Blood negative [id number] ----P.H. 6.0 [id number] 5.0 - 6.0 ----Color lt yellow 20150322 ----Glucose negative 20150322 ----Culture culture [id number] ----Clarity cloudy 20150322 ----Leukocyte 10 (+) 20150322 ----Nitrate negative 20150322 ----Urobili 4.0 (++) 20150322 ----Protein negative [id number] Urine Culture, Comprehensive [id number] ----Urine Culture,Comprehensive Final report [id number] A Summary Purpose eClinicalWorks Submission
--- OUTSIDE RECORDS SUMMARY | 2016-12-18 12:11 | XMS REPORT ---
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 956201458 Problem Cervicalgia M54.2 Active 318742451 Problem Insomnia G47.00 Active 596919042 Problem Generalized anxiety disorder F41.1 Active 69410554 Problem Abnormal CT of the head R93.0 Active 394842940 Problem Low back pain M54.5 Active 433764275 Problem Anxiety F41.9 Active 93429820 Problem Cigarette nicotine dependence, uncomplicated F17.210 Active 44213292 Problem Bilateral headaches R51 Active 763601701 Problem Dorsalgia M54.9 Active 245090349 Problem Chronic pruritus L29.9 Active 596469580 Problem Primary insomnia F51.01 Active 5804934 Problem AIDS B20 Active 96855999 Problem Chronic depression F32.9 Active 591633419 Problem Intertrigo L30.4 Active 57063993 Problem COPD bronchitis J44.9 Active 03246290 Problem Body lice infestation B85.1 Active 30463146 Problem Other chronic pain G89.29 Active 87020077 Problem Migraine, unspecified, not intractable, without status migrainosus G43.909 Active 02752540 Problem Restless leg syndrome G25.81 Active 01635143 Problem Seasonal allergic rhinitis due to pollen J30.1 Active 39733664 Problem Slow transit constipation K59.01 Active 05160910 Problem Dermatitis L30.9 Active 37139985 Problem Primary hypothyroidism E03.9 Active 89244719 Problem Migraine with aura and without status migrainosus, not intractable G43.109 Active 1724936 Problem Constipation by delayed colonic transit K59.01 Active 81858339 ALLERGIES Unknown Allergies SOCIAL HISTORY No smoking Hx information available PLAN OF CARE VITAL SIGNS MEDICATIONS Medication Instructions Dosage Frequency Start Date End Date Duration Status Linzess 145 MCG Orally Once a day 1 capsule 24h 10 Apr, 2016 30 day(s) Active Diclofenac Potassium 50 MG Orally Twice a day 1 tablet 12h Oct, 30 day(s) Active Stiolto Respimat 2.5-2.5 MCG/ACT Inhalation Once a day 2 puffs 24h Sep, 30 days Active Alexander 7.5-325 MG Orally Two times daily 1 tablet as needed Oct, 10 days Active Omeprazole 40 MG Orally Once a day 1 capsule 24h Aug, 30 day(s ) Active Descovy 200-25 mg Orally Once a day 1 tablet 24h May, 30 days Active Levothyroxine Sodium 50 MCG Orally Once a day 1 tablet on an empty stomach in the morning 24h Jun, 30 day(s) Active Evotaz 300/150 mg Oral once a day 1 tab 24h Aug, 30 days Active Chantix Starting Month Ed 0.5 MG X 11 & 1 MG X 42 Orally 0.5 mg po daily x 3 days then 0.5 mg bid x 4, then 1 mg BID as directed Sep, 30 days Active Doxepin HCl 50 TAKE ONE CAPSULE BY MOUTH EVERY NIGHT AT BEDTIME 90 Active Ketoconazole 2 % Externally Once a day as directed 24h May, 30 days Active Fluocinonide Emulsified Base 0.05 % Externally twice a day as directed 12h Mar, 30 days Active Fluconazole 200 Orally Once a day 1 tablet 24h 2 Active HydrOXYzine HCl 25 MG Orally every 8 hrs 1 tablet as needed 8h Oct, 30 day(s) Active Remeron 15 MG Orally Once a day 1 tab at bedtime 24h 30 days Active Celexa 40 MG Orally Once a day 1 tablet 24h Nov, 30 day(s) Active Simethicone 180 MG Orally Four times a day 1 capsule as needed 6h Jan, 10 days Active Fluconazole 200 MG Orally Once a day 1 tablet 24h Sep, 2 days Active Ferrous Sulfate 325 (65 Fe) MG Orally Once a day 1 tablet 24h Oct, 90 days Active Permethrin 5 % Externally apply head to toe; leave on 8-12h then wash off with water, may reapply in 1 week as directed Oct, 1 dose Active Trokendi XR 100 MG Orally Once a day 1 capsule 24h Sep, 30 day( s) Active Ventolin HFA 108 (90 Base) MCG/ACT Inhalation four times a day 2 puffs as needed 6h Nov, 30 days Active Nicotrol 10 MG Inhalation 16 time(s) a day 1 puff as needed Sep, 30 days Active Ivermectin 3 MG Orally Once a day as directed 24h Oct, 1 dose Active Ropinirole HCl 0.5 MG Orally once a day 1 tab at bedtime 24h 30 days Active Permethrin 5 % Externally Once a day 1 application to affected area 24h Oct, 7 day(s) Active Temazepam 30 MG Orally Once a day 1 capsule at bedtime as needed 24h May 30 days Active Strattera 25 MG Orally Once a day 1 capsule 24h Active RESULTS No Results PROCEDURES No Known procedures IMMUNIZATIONS No Known Immunizations
--- OUTSIDE RECORDS SUMMARY | 2016-12-18 12:12 | XMS REPORT ---
Author Author Carmela Whitmore [facility] Address [address], [place] [id number] Care Team Providers Care Shoe Repairman Name Role Phone Carmela Whitmore Unavailable PROBLEMS Type Condition ICD9-CM Code BGL51-PJ Code Onset Dates Condition Status SNOMED Code Problem Seasonal allergic rhinitis due to pollen J30.1 Active 73326150 Problem Migraine, unspecified, not intractable, without status migrainosus G43.909 Active 55955289 Problem Slow transit constipation K59.01 Active 19914057 Problem Insomnia G47.00 Active 673444997 Problem Primary hypothyroidism E03.9 Active 23092768 Problem Migraine with aura and without status migrainosus, not intractable G43.109 Active 4536249 Problem Restless leg syndrome G25.81 Active 86936738 Problem Dermatitis L30.9 Active 25666336 Problem Constipation by delayed colonic transit K59.01 Active 62357816 Problem GERD (gastroesophageal reflux disease) K21.9 Active 288044890 Problem longterm prescription opiate use Z79.899 Active 143578841 Assessment Insomnia G47.00 July, Active 632738983 Problem Low back pain M54.5 Active 318952267 Problem Chronic depression F32.9 Active 813051051 Problem Cervicalgia M54.2 Active 196227993 Problem AIDS B20 Active 22414811 Problem Generalized anxiety disorder F41.1 Active 25352394 Problem Primary insomnia F51.01 well-controlled 7103786 ALLERGIES Unknown Allergies SOCIAL HISTORY No smoking Hx information available PLAN OF CARE VITAL SIGNS MEDICATIONS Medication Instructions Dosage Frequency Start Date End Date Duration Status Remeron 15 MG Orally Once a day 1/2 tablet at bedtime 24h July, Active RESULTS No Results PROCEDURES No Known procedures IMMUNIZATIONS No Known Immunizations
--- OUTSIDE RECORDS SUMMARY | 2016-12-18 12:12 | XMS REPORT ---
Author Author Awa Prabhakar Organization eClinicalWorks Address Unknown Phone Unavailable Care Team Providers Care Chief Medical Director Name Role Phone Awa Prabhakar CP Unavailable Allergies No Known Allergies Problems Problem Type Condition ICD-9 Code Onset Dates Condition Status Problem Generalized anxiety disorder 300.02 Active Problem Nondependent tobacco use disorder 305.1 Active Problem Cervicalgia 723.1 Active Problem GERD (gastroesophageal reflux disease) 530.81 Active Problem Colitis 558.9 Active Problem Acquired immune deficiency syndrome 042 Active Problem barking machine feeder (current) use of 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 V58.69 Active Problem Lumbago 724.2 Active Problem Depressive disorder, not elsewhere classified 311 Active Problem Abdominal pain, unspecified site 789.00 Active Assessment Abdominal pain 789.00 Active Problem Morbid obesity 278.01 Active Problem Unspecified sinusitis (chronic) 473.9 Active Medications Medication Code System Code Instructions Start Date End Date Status Dosage Tramadol HCl [facility] [address]-14 50 MG Orally three times daily October 14, 2014 1-2 tabs Evotaz [facility] [address]-99 300/150 mg Oral Daily August 15, 2014 1 HydrOXYzine HCl [facility] [address]-29 50 MG Oral QHS Oct 27, 2013 1 Temazepam [facility] [address]-70 15 MG Orally Once a day Mar 14, 2014 1 capsule at bedtime as needed Rifaximin [facility] [address]-14 200 MG Orally Three times a day October 14, 2014 2 tablet Omeprazole [facility] [address]-57 40 MG Orally Once a day August 15, 2014 1 capsule Bentyl [facility] 71879157620 20 Orally Four times a day 1 tablet Truvada [facility] [address]-12 200-300 MG Oral 1 (one) daily July 26, 2013 1 tablet Results No Known Results Summary Purpose eClinicalWorks Submission
--- OUTSIDE RECORDS SUMMARY | 2016-12-18 12:12 | XMS REPORT ---
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 V58.69 Active Problem Lumbago 724.2 Active Problem Depressive disorder, not elsewhere classified 311 Active Problem Abdominal pain, unspecified site 789.00 Active Assessment UTI (urinary tract infection) 599.0 Active Assessment Lumbago 724.2 Active Problem Morbid obesity 278.01 Active Problem Unspecified sinusitis (chronic) 473.9 Active Medications Medication Code System Code Instructions Start Date End Date Status Dosage Macrobid [facility] [address]-96 100 MG Orally twice a day September 05, 2014August 1 capsule Pentasa [facility] [address]-39 500 MG Orally Four times a day August 15, 2014 2 capsules Zofran [facility] [address]-27 8 MG Orally every 8 hrs August 15, 2014 September 13, 2014 1 tablet as needed Nulytely with Flavor Packs [facility] [address]-51 420 GM Orally August 23, 2014 as directed Temazepam [facility] [address]-37 15 MG Orally Once a day Mar 14, 2014 1 capsule at bedtime as needed Truvada [facility] [address]-88 200-300 MG Oral 1 (one) daily July 26, 2013 1 tablet Augmentin [facility] [address]-75 875-125 MG Orally Twice a day August 15, 2014 1 tablet Hydrocodone-Acetaminophen [facility] [address]-40 7.5-325 MG Orally every 6 hrs August 26, 2014 September 15, 2014 1 tablet as needed Bentyl [facility] [address]-04 20 MG Orally Four times a day August 15, 2014 September 13, 2014 1 tablet Evotaz [facility] [address]-89 300/150 mg Oral Daily August 15, 2014 1 HydrOXYzine HCl [facility] [address]-05 50 MG Oral QHS Oct 27, 2013 1 Omeprazole [facility] [address]-63 40 MG Orally Once a day August 15, 2014 1 capsule Results No Known Results Summary Purpose eClinicalWorks Submission
--- OUTSIDE RECORDS SUMMARY | 2016-12-18 12:12 | XMS REPORT ---
Author Author Carmela Whitmore [facility] eClinicalWorks Address Unknown Phone Unavailable Care Team Providers Care Dental Laboratory Technology Teacher Name Role Phone Carmela Whitmore Unavailable Allergies, Adverse Reactions, Alerts Substance Reaction Event Type N.K.D.A. Info Not Available Non Drug Allergy Problems Problem Type Condition Code Onset Dates Condition Status Assessment Chronic depression F32.9 Active Problem GERD (gastroesophageal reflux disease) K21.9 Active Assessment Acquired immune deficiency syndrome B20 Active Problem AIDS B20 Active Problem Chronic depression F32.9 Active Problem Primary insomnia F51.01 Active Problem Cervicalgia M54.2 Active Problem long term care pharmacist prescription opiate use Z79.899 Active Problem Low back pain M54.5 Active Problem Generalized anxiety disorder F41.1 Active Assessment Abdominal distension (gaseous) R14.0 Active Assessment Primary insomnia F51.01 Active Assessment Cervicalgia M54.2 Active Assessment Generalized anxiety disorder F41.1 Active Medications Medication Code System Code Instructions Start Date End Date Status Dosage Evotaz [facility] 1495-2395-79 300/150 mg Oral once a day August 15, 2014 1 tab Baclofen [facility] [address]-32 10 MG Orally Three times a day Mar 20, 2015 1 tablet with food or milk Doxepin HCl [facility] [address]-00 50 MG Orally Once a day Nov 30, 2015 1 capsule at bedtime Omeprazole [facility] [address]-89 40 MG Orally Once a day August 15, 2014 1 capsule Truvada [facility] [id number] 200-300 TAKE ONE TABLET BY MOUTH DAILY Celexa [facility] [address]-51 40 MG Orally Once a day Nov 30, 2015 1 tablet Ventolin HFA [facility] [address]-27 108 (90 Base) MCG/ACT Inhalation every 4 hrs Dec 15, 2015 2 puffs as needed Strattera [facility] [address]-68 25 MG Orally Once a day 1 capsule Procedures Procedure Coding System Code Date Office Visit, Est Pt., Level 3 CPT-4 03880 Jan 25, 2016 Vital Signs Date/Time: Jan 25, 2016 Temperature 98.1 F Weight 140 lbs Height 64.0 in Respiratory Rate 17 /min Cardiac Monitoring Heart Rate 76 /min Blood Pressure Diastolic 70 mm Hg Blood Pressure Systolic 110 mm Hg BMI 24.03 Index Oximetry 98 % Results No Known Results Summary Purpose eClinicalWorks Submission
--- OUTSIDE RECORDS SUMMARY | 2016-12-18 12:12 | XMS REPORT ---
Author Author Carmela Whitmore Organization eClinicalWorks Address Unknown Phone Unavailable Care Team Providers Care Strategy Associate Name Role Phone Carmela Whitmore CP Unavailable Allergies No Known Allergies Problems Problem Type Condition Code Onset Dates Condition Status Problem GERD (gastroesophageal reflux disease) K21.9 Active Problem Cervicalgia M54.2 Active Problem skilled nursing prescription opiate use Z79.899 Active Problem Abnormal urinalysis R82.90 Active Problem AIDS B20 Active Problem Urinary tract infection, site not specified N39.0 Active Problem Smoking F17.200 Active Problem Generalized anxiety disorder F41.1 Active Problem Chronic depression F32.9 Active Problem Low back pain M54.5 Active Medications No Known Medications Results No Known Results Summary Purpose eClinicalWorks Submission
--- OUTSIDE RECORDS SUMMARY | 2016-12-18 12:12 | XMS REPORT ---
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
--- OUTSIDE RECORDS SUMMARY | 2016-12-18 12:12 | XMS REPORT ---
Author Author Carmela Whitmore [facility] eClinicalWorks Address Unknown Phone Unavailable Care Team Providers Care Swimming Pool Maintenance Supervisor Name Role Phone Carmela Whitmore CP Unavailable Allergies No Known Allergies Problems Problem Type Condition ICD-9 Code Onset Dates Condition Status Problem Generalized anxiety disorder 300.02 Active Problem Nondependent tobacco use disorder 305.1 Active Problem Cervicalgia 723.1 Active Problem GERD (gastroesophageal reflux disease) 530.81 Active Problem Colitis 558.9 Active Problem Acquired immune deficiency syndrome 042 Active Problem 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.69 Active Problem Lumbago 724.2 Active Problem Depressive disorder, not elsewhere classified 311 Active Problem Abdominal pain, unspecified site 789.00 Active Assessment Lumbago 724.2 Active Problem Morbid obesity 278.01 Active Problem Unspecified sinusitis (chronic) 473.9 Active Medications Medication Code System Code Instructions Start Date End Date Status Dosage Pentasa [facility] [address]-32 500 MG Orally Four times a day August 15, 2014 2 capsules Augmentin [facility] [address]-82 875-125 MG Orally Twice a day August 15, 2014 1 tablet Hydrocodone-Acetaminophen [facility] [address]-67 7.5-325 MG Orally every 6 hrs August 26, 2014 September 05, 2014 1 tablet as needed Zofran [facility] [address]-45 8 MG Orally every 8 hrs August 15, 2014 September 13, 2014 1 tablet as needed HydrOXYzine HCl [facility] [address]-87 50 MG Oral QHS Oct 27, 2013 1 Evotaz [facility] 5204-4633-22 300/150 mg Oral Daily August 15, 2014 1 Omeprazole [facility] [address]-41 40 MG Orally Once a day August 15, 2014 1 capsule Diflucan [facility] [address]-59 100 MG Orally Once a day August 24, 2014August 1 tablet Bentyl [facility] [address]-36 20 MG Orally Four times a day August 15, 2014 September 13, 2014 1 tablet Nulytely with Flavor Packs [facility] [address]-94 420 GM Orally August 23, 2014 as directed Temazepam [facility] [address]-12 15 MG Orally Once a day Mar 14, 2014 1 capsule at bedtime as needed Truvada [facility] [address]-20 200-300 MG Oral 1 (one) daily July 26, 2013 1 tablet Results No Known Results Summary Purpose eClinicalWorks Submission
--- OUTSIDE RECORDS SUMMARY | 2016-12-18 12:12 | XMS REPORT ---
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.69 Active Problem Lumbago 724.2 Active Problem Depressive disorder, not elsewhere classified 311 Active Problem Abdominal pain, unspecified site 789.00 Active Assessment Acute upper respiratory infection, unspecified J06.9 Active Problem Morbid obesity 278.01 Active Problem Unspecified sinusitis (chronic) 473.9 Active Medications Medication Code System Code Instructions Start Date End Date Status Dosage Temazepam [facility] [address]-57 30 MG Orally Once a day Mar 14, 2014 1 capsule at bedtime as needed Lomotil [facility] [address]-12 2.5-0.025 MG Orally Four times a day Oct 18, 2014 1-2 tablet as needed Omeprazole [facility] [address]-62 40 MG Orally Once a day August 15, 2014 1 capsule Zithromax [facility] [address]-84 250 MG Orally Once a day Dec 19, 2014 2 tablets on the first day, then 1 tablet daily for 4 days Truvada [facility] [address]-72 200-300 MG Oral 1 (one) daily July 26, 2013 1 tablet Citalopram Hydrobromide [facility] [address]-32 20 MG Orally Once a day Oct 18, 2014 1 tablet Tramadol HCl [facility] [address]-65 50 MG Orally three times daily October 14, 2014 1-2 tabs Evotaz [facility] 1072-8746-88 300/150 mg Oral Daily August 15, 2014 1 Zithromax Z-Ed [facility] [address]-75 250 MG Orally Once a day Nov 02, 2014 2 tablets on the first day, then 1 tablet daily for 4 days PredniSONE [facility] [address]-12 10 MG Orally Once a day Nov 02, 2014 taper - 8,7,6,5,4,3,2,1 Permethrin [facility] [address]-46 5 % Externally Leave on hair x 10 min rinse with water. Remove nits with fine-tooth comb. Repeat x 1 wk if lice/nits present Nov 29, 2014 as directed HydrOXYzine HCl [facility] [address]-52 50 MG Oral QHS Oct 27, 2013 1 Ultram [facility] [address]-53 50 MG TAKE ONE TO TWO TABLETS BY MOUTH THREE TIMES A DAY Results No Known Results Summary Purpose eClinicalWorks Submission
--- OUTSIDE RECORDS SUMMARY | 2016-12-18 12:13 | XMS REPORT ---
Author Author Alessia Erickson [facility] eClinicalWorks Address Unknown Phone Unavailable Care Team Providers Care Child Care Associate Name Role Phone Alessia Erickson CP Unavailable Allergies, Adverse Reactions, Alerts Substance Reaction [...] N39.0 Active Problem Abnormal urinalysis R82.90 Active Assessment Human immunodeficiency virus [HIV] disease B20 Active Assessment Primary insomnia F51.01 Active Assessment Hospital discharge follow-up Z09 Active Problem GERD (gastroesophageal reflux disease) K21.9 Active Assessment Moderate episode of recurrent major depressive disorder F33.1 Active Problem 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 Assessment Smoker F17.200 Active Problem Cervicalgia M54.2 Active Medications Medication Code System Code Instructions Start Date End Date Status Dosage Nicotine Step 2 [facility] [address]-35626 14 MG/24HR Transdermal Once a day Mar 20, 2015 1 patch to skin Nicotine 21 mg patch (for one month) [facility] [address]-21 21 MG/24HR Transdermal Once a day then switch to 14 mg patch Nov 30, 2015 1 patch to skin Baclofen [facility] [address]-42 10 MG Orally Three times a day Mar 20, 2015 1 tablet with food or milk Evotaz [facility] 7992[address]-49 300/150 mg Oral once a day August 15, 2014 1 tab Truvada [facility] 15551242251 200-300 TAKE ONE TABLET BY MOUTH DAILY Omeprazole [facility] [address]-49 40 MG Orally Once a day August 15, 2014 1 capsule Nicotine Step 1 [facility] 93853-41972 21 MG/24HR Transdermal Once a day Mar 20, 2015 1 patch to skin Celexa [facility] [address]-41 20 MG Orally Once a day Nov 30, 2015 1 tablet HydrOXYzine HCl [facility] [address]-63 50 MG Oral QHS Oct 27, 2013 1 Doxepin HCl [facility] [address]-32 50 MG Orally Once a day Nov 30, 2015 1 capsule at bedtime Procedures Procedure Coding System Code Date Billed by outside source CPT-4 NOBLL Nov 30, 2015 Office Visit, Est Pt., Level 3 CPT-4 36689 Nov 30, 2015 CHEST X-RAY CPT-4 76847 Nov 30, 2015 Vital Signs Date/Time: Nov 30, 2015 Temperature 99.0 F Weight 118 lbs Height 64.5 in Respiratory Rate 16 /min Cardiac Monitoring Heart Rate 83 /min Blood Pressure Diastolic 45 mm Hg Blood Pressure Systolic 87 mm Hg BMI 19.94 Index Oximetry 98 % Results No Known Results Summary Purpose eClinicalWorks Submission
--- OUTSIDE RECORDS SUMMARY | 2016-12-18 12:13 | XMS REPORT ---
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 Active 777822082 Problem Cervicalgia M54.2 Active 512804730 Problem Insomnia G47.00 Active 345504496 Problem Generalized anxiety disorder F41.1 Active [address]18652 Problem Ab[address] CT of the head R93.0 Active 777968578 Problem Low back pain M54.5 Active 120293676 Problem Anxiety F41.9 Active 69532892 Problem Cigarette nicotine dependence, uncomplicated F17.210 Active 54359035 Problem Bilateral headaches R51 Active 704114548 Problem Dorsalgia M54.9 Active 314495011 Problem Chronic pruritus L29.9 Active 917055560 Problem Primary insomnia F51.01 Active 3334749 Problem AIDS B20 Active 04982386 Problem Chronic depression F32.9 Active 667137831 Problem Intertrigo L30.4 Active 20687361 Problem COPD bronchitis J44.9 Active 65614197 Problem Body lice infestation B85.1 Active 81785040 Problem Other chronic pain G89.29 Active 22120059 Problem Migraine, unspecified, not intractable, without status migrainosus G43.909 Active 38372466 Problem Restless leg syndrome G25.81 Active 00919985 Problem Seasonal allergic rhinitis due to pollen J30.1 Active 26628953 Problem Slow transit constipation K59.01 Active 66877330 Problem Dermatitis L30.9 Active 78460795 Problem Primary hypothyroidism E03.9 Active 82658671 Problem Migraine with aura and without status migrainosus, not intractable G43.109 Active 2410429 Problem Constipation by delayed colonic transit K59.01 Active 52737272 ALLERGIES No Information SOCIAL HISTORY Never Assessed [...] History Abdominal pain, unspecified site Medical History 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
--- OUTSIDE RECORDS SUMMARY | 2016-12-18 12:13 | XMS REPORT ---
Author Author Carmela Whitmore [facility] eClinicalWorks Address Unknown Phone Unavailable Care Team Providers Care Gun Fitter Name Role Phone Carmela Whitmore Unavailable Allergies No Known Allergies Problems Problem Type Condition ICD-9 Code Onset Dates Condition Status Problem Cervicalgia 723.1 Inactive Problem Unspecified disorder of the teeth and supporting structures 525.9 Inactive Problem Pain in joint, forearm 719.43 Inactive Problem Symptomatic menopausal or female climacteric states 627.2 Inactive Problem Kkwieifwfp-bmisfyt-xxubokmtn, combined [DTP] [DtaP] V06.1 Inactive Problem Need for prophylactic vaccination against streptococcus pneumoniae ( pneumococcus) V03.82 Inactive Problem Nondependent tobacco use disorder 305.1 Active [...] vaccination and inoculation, Influenza V04.81 Inactive Problem 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
--- OUTSIDE RECORDS SUMMARY | 2016-12-18 12:13 | XMS REPORT ---
Author Author Awa Prabhakar Organization eClinicalWorks Address Unknown Phone Unavailable Care Team Providers Care Elastic Yarn Twister Helper Name Role Phone Awa Prabhakar CP Unavailable [...] Acquired immune deficiency syndrome 042 Active Problem skilled nursing (current) use of 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 V58.69 Active Problem Lumbago 724.2 Active Problem Depressive disorder, not elsewhere classified 311 Active Problem Abdominal pain, unspecified site 789.00 Active Medications No Known Medications Results No Known Results Summary Purpose eClinicalWorks Submission
--- OUTSIDE RECORDS SUMMARY | 2016-12-18 12:13 | XMS REPORT ---
Author Author Alessia Erickson [facility] Address [address], [place] [id number] Care Team Providers Care Equip Tech Name Role Phone Alessia Erickson Unavailable PROBLEMS Type Condition ICD9-CM Code [id number] Code Onset Dates Condition Status SNOMED Code Problem GERD (gastroesophageal reflux disease) K21.9 Active 595604542 Problem long term care social worker prescription opiate use Z79.899 Active 049553009 Problem Primary hypothyroidism E03.9 Active 84119657 Problem Cervicalgia M54.2 Active 333482022 Problem Insomnia G47.00 Active 370882326 Problem Generalized anxiety disorder F41.1 Active [address]16 Problem Ab[address] CT of the head R93.0 Active 817513901 Problem Bilateral headaches R51 Active 996459246 Problem Anxiety F41.9 Active 10407197 Problem Chronic pruritus L29.9 Active 407808427 Problem Body lice infestation B85.1 Active 44397458 Problem AIDS B20 Active 15874769 Problem Chronic depression F32.9 Active 925209141 Problem Low back pain M54.5 Active 506439092 Problem COPD bronchitis J44.9 Active 89079908 Problem Cigarette nicotine dependence, uncomplicated F17.210 Active 85494333 Problem Other chronic pain G89.29 Active 02856493 Problem Intertrigo L30.4 Active 04699362 Problem Slow transit constipation K59.01 Active 23847282 Problem Migraine, unspecified, not intractable, without status migrainosus G43.909 Active 56061493 Problem Primary insomnia F51.01 Active 1645685 Problem Seasonal allergic rhinitis due to pollen J30.1 Active 23842994 Problem Constipation by delayed colonic transit K59.01 Active 47724836 Problem Dermatitis L30.9 Active 56679086 Problem Restless leg syndrome G25.81 Active 35002265 Problem Migraine with aura and without status migrainosus, not intractable G43.109 Active 4355273 ALLERGIES Unknown Allergies SOCIAL HISTORY No smoking Hx information available PLAN OF CARE VITAL SIGNS MEDICATIONS Medication Instructions Dosage Frequency Start Date End Date Duration Status Descovy 200-25 mg Orally Once a day 1 tablet 24h May, 30 days Active Stiolto Respimat 2.5-2.5 MCG/ACT Inhalation Once a day 2 puffs 24h Sep, 30 days Active Evotaz 300/150 mg Oral once a day 1 tab 24h Aug, 30 days Active Doxepin HCl 50 TAKE ONE CAPSULE BY MOUTH EVERY NIGHT AT BEDTIME 90 Active Strattera 25 MG Orally Once a day 1 capsule 24h Active Chantix Starting Month Ed 0.5 MG X 11 & 1 MG X 42 Orally 0.5 mg po daily x 3 days then 0.5 mg bid x 4, then 1 mg BID as directed Sep, 30 days Active Levothyroxine Sodium 50 MCG Orally Once a day 1 tablet on an empty stomach in the morning 24h Jun, 30 day(s) Active Linzess 145 MCG Orally Once a day 1 capsule 24h 10 Apr, 2016 30 day(s) Active Celexa 40 MG Orally Once a day 1 tablet 24h Nov, 30 day(s) Active Alprazolam 0.5 MG Orally 1 daily 1 tablet Sep, Oct, 30 days Active Temazepam 30 MG Orally Once a day 1 capsule at bedtime as needed 24h May 30 days Active Omeprazole 40 MG Orally Once a day 1 capsule 24h Aug, 30 day(s ) Active Fluconazole 200 MG Orally Once a day 1 tablet 24h Sep, 2 days Active Ivermectin 3 MG Orally Once a day as directed 24h Oct, 1 dose Active Permethrin 5 % Externally Once a day 1 application to affected area 24h Oct, 7 day(s) Active Celexa 20 MG Orally Once a day 1 tablet 24h Sep, 30 day(s) Active Remeron 15 MG Orally Once a day 1 tab at bedtime 24h 30 days Active Fluocinonide Emulsified Base 0.05 % Externally twice a day as directed 12h Mar, 30 days Active Nicotrol 10 MG Inhalation 16 time(s) a day 1 puff as needed Sep, 30 days Active HydrOXYzine HCl 25 MG Orally every 8 hrs 1 tablet as needed 8h Oct, 30 day(s) Active Ventolin HFA 108 (90 Base) MCG/ACT Inhalation four times a day 2 puffs as needed 6h 30 Nov, 2015 30 days Active Simethicone 180 MG Orally Four times a day 1 capsule as needed 6h Jan, 10 days Active Trokendi XR 100 MG Orally Once a day 1 capsule 24h Sep, 30 day( s) Active Permethrin 5 % Externally apply head to toe; leave on 8-12h then wash off with water, may reapply in 1 week as directed Oct, 1 dose Active Ketoconazole 2 % Externally Once a day as directed 24h May, 30 days Active [place] 7.5-325 MG Orally Two times daily 1 tablet as needed Oct, 10 days Active Ropinirole HCl 0.5 MG Orally once a day 1 tab at bedtime 24h 30 days Active RESULTS No Results PROCEDURES No Known procedures IMMUNIZATIONS No Known Immunizations
--- OUTSIDE RECORDS SUMMARY | 2016-12-18 12:13 | XMS REPORT ---
Author Author Carmela Whitmore Organization eClinicalWorks Address Unknown Phone Unavailable Care Team Providers Care Manager Float Name Role Phone Carmela Whitmore CP Unavailable Allergies No Known Allergies Problems Problem Type Condition Code Onset Dates Condition Status Problem jail prescription opiate use Z79.899 Active Problem GERD [...]
--- OUTSIDE RECORDS SUMMARY | 2016-12-18 12:13 | XMS REPORT ---
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.69 Active Problem Lumbago 724.2 Active Problem Depressive disorder, not elsewhere classified 311 Active Problem Abdominal pain, unspecified site 789.00 Active Assessment Lumbago 724.2 Active Problem Morbid obesity 278.01 Active Problem Unspecified sinusitis (chronic) 473.9 Active Medications Medication Code System Code Instructions Start Date End Date Status Dosage Augmentin [facility] [address]-40 875-125 MG Orally Twice a day August 15, 2014 1 tablet Omeprazole [facility] [address]-02 40 MG Orally Once a day August 15, 2014 1 capsule Hydrocodone-Acetaminophen [facility] [address]-12 7.5-325 MG Orally every 6 hrs August 26, 2014 September 25, 2014 1 tablet as needed Bentyl [facility] 97398830948 20 Orally Four times a day 1 tablet Truvada [facility] [address]-77 200-300 MG Oral 1 (one) daily July 26, 2013 1 tablet HydrOXYzine HCl [facility] [address]-11 50 MG Oral QHS Oct 27, 2013 1 Pentasa [facility] [address]-12 500 MG Orally Four times a day August 15, 2014 2 capsules Evotaz [facility] 4588-2741-16 300/150 mg Oral Daily August 15, 2014 1 Nulytely with Flavor Packs [facility] [address]-78 420 GM Orally August 23, 2014 as directed Temazepam [facility] [address]-11 15 MG Orally Once a day Mar 14, 2014 1 capsule at bedtime as needed Results No Known Results Summary Purpose eClinicalWorks Submission
--- OUTSIDE RECORDS SUMMARY | 2016-12-18 12:13 | XMS REPORT ---
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 Active 045438012 Problem Primary hypothyroidism E03.9 Active 39262675 Problem Cervicalgia M54.2 Active 694532316 Problem Insomnia G47.00 Active 077609643 Problem Generalized anxiety disorder F41.1 Active 2058[address]13 Problem Ab[address] CT of the head R93.0 Active 348079200 Problem Bilateral headaches R51 Active 934535643 Problem Anxiety F41.9 Active 30234660 Problem Chronic pruritus L29.9 Active 947412428 Problem Body lice infestation B85.1 Active 31814162 Problem AIDS B20 Active 40068400 Problem Chronic depression F32.9 Active 947447277 Problem Low back pain M54.5 Active 723606743 Problem COPD bronchitis J44.9 Active 33888506 Problem Cigarette nicotine dependence, uncomplicated F17.210 Active 98304325 Problem Other chronic pain G89.29 Active 35447940 Problem Intertrigo L30.4 Active 58198175 Problem Slow transit constipation K59.01 Active 91617349 Problem Migraine, unspecified, not intractable, without status migrainosus G43.909 Active 68355410 Problem Primary insomnia F51.01 Active 4303825 Problem Seasonal allergic rhinitis due to pollen J30.1 Active 46251326 Problem Constipation by delayed colonic transit K59.01 Active 04482416 Problem Dermatitis L30.9 Active 59923333 Problem Restless leg syndrome G25.81 Active 18169887 Problem Migraine with aura and without status migrainosus, not intractable G43.109 Active 5393438 ALLERGIES No Known Allergies SOCIAL HISTORY No smoking Hx information available PLAN OF CARE VITAL SIGNS MEDICATIONS Medication Instructions Dosage Frequency Start Date End Date Duration Status Evotaz 300/150 mg Oral once a day 1 tab 24h Aug, 30 days Active Trokendi XR 100 MG Orally Once a day 1 capsule 24h Sep, 30 day( s) Active Levothyroxine Sodium 50 MCG Orally Once a day 1 tablet on an empty stomach in the morning 24h Jun, 30 day(s) Active Ketoconazole 2 % Externally Once a day as directed 24h May, 30 days Active Nicotrol 10 MG Inhalation 16 time(s) a day 1 puff as needed Sep, 30 days Active Descovy 200-25 mg Orally Once a day 1 tablet 24h May, 30 days Active Linzess 145 MCG Orally Once a day 1 capsule 24h Apr, 30 day(s) Active Ventolin HFA 108 (90 Base) MCG/ACT Inhalation four times a day 2 puffs as needed 6h Nov, 30 days Active Chantix Starting Month Ed 0.5 MG X 11 & 1 MG X 42 Orally 0.5 mg po daily x 3 days then 0.5 mg bid x 4, then 1 mg BID as directed Sep, 30 days Active Fluconazole 200 MG Orally Once a day 1 tablet 24h Sep, 2 days Active Permethrin 5 % Externally Once a day 1 application to affected area 24h Oct, 7 day(s) Active Ropinirole HCl 0.5 MG Orally once a day 1 tab at bedtime 24h 30 days Active Celexa 20 MG Orally Once a day 1 tablet 24h Sep, 30 day(s) Active Alprazolam 0.5 MG Orally 1 daily 1 tablet Sep, Oct, 30 days Active Simethicone 180 MG Orally Four times a day 1 capsule as needed 6h Jan, 10 days Active Anoro Ellipta 62.5-25 MCG/INH Inhalation Once a day 1 puff 24h Oct, 30 days Active Temazepam 30 MG Orally Once a day 1 capsule at bedtime as needed 24h May 30 days Active Omeprazole 40 MG Orally Once a day 1 capsule 24h Aug, 30 day(s ) Active Celexa 40 MG Orally Once a day 1 tablet 24h Nov, 30 day(s) Active Fluocinonide Emulsified Base 0.05 % Externally twice a day as directed 12h Mar, 30 days Active Strattera 25 MG Orally Once a day 1 capsule 24h Active Doxepin HCl 50 TAKE ONE CAPSULE BY MOUTH EVERY NIGHT AT BEDTIME 90 Active RESULTS No Results PROCEDURES No Known procedures IMMUNIZATIONS No Known Immunizations
--- OUTSIDE RECORDS SUMMARY | 2016-12-18 12:14 | XMS REPORT ---
Author Author Carmela Whitmore [facility] [employer] Address Unknown Phone Unavailable Care Team Providers Care Drug Safety Coordinator Name Role Phone Carmela Whitmore CP Unavailable Allergies No Known Allergies Problems Problem Type Condition Code Onset Dates Condition Status Problem Generalized anxiety disorder 300.02 Active Problem Nondependent tobacco use disorder 305.1 Active Problem Cervicalgia 723.1 Active Problem GERD (gastroesophageal reflux disease) 530.81 Active Problem Colitis 558.9 Active Problem Acquired immune deficiency syndrome 042 Active Problem acid conditioner (current) use of 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 V58.69 Active Problem Lumbago 724.2 Active Problem Depressive disorder, not elsewhere classified 311 Active Problem Abdominal pain, unspecified site 789.00 Active Assessment Nausea 787.02 Active Problem Morbid obesity 278.01 Active Problem Unspecified sinusitis (chronic) 473.9 Active Medications Medication Code System Code Instructions Start Date End Date Status Dosage Truvada [facility] [address]-87 200-300 MG Oral 1 (one) daily July 26, 2013 1 tablet Hydrocodone-Acetaminophen [facility] [address]-58 5-325 MG Orally every 6 hrs August 15, 2014 1-2 tablet as needed Augmentin [facility] [address]-57 875-125 MG Orally Twice a day August 15, [address] [facility] [address]-29 500 MG Orally Four times a day August 15, 2014 2 capsules Phentermine HCl [facility] [address]-98 37.5 MG Orally Once a day June 01, 2014 1 tablet HydrOXYzine HCl [facility] [address]-44 50 MG Oral QHS Oct 27, [address] [facility] [address]-72 8 MG Orally every 8 hrs August 15, 2014 September 13, 2014 1 tablet as needed Bentyl [facility] [address]-52 20 MG Orally Four times a day August 15, 2014 September 13, [address] [facility] [address]21[address]-67 300/150 mg Oral Daily August 15, [address] [facility] [address]-06 15 MG Orally Once a day Mar 14, 2014 1 capsule at bedtime as needed Omeprazole [facility] [address]-25 40 MG Orally Once a day August 15, 2014 1 capsule Results No Known Results Summary Purpose eClinicalWorks Submission
--- OUTSIDE RECORDS SUMMARY | 2016-12-18 12:14 | XMS REPORT ---
Author Author Carmela Whitmore [facility] Address [address] [place], [place] [address] Care Team Providers Care Cloth Dyer Name Role Phone Carmela Whitmore Unavailable PROBLEMS Type Condition ICD9-CM Code [id number] Code Onset Dates Condition Status SNOMED Code Problem GERD (gastroesophageal reflux disease) K21.9 Active 061139579 Problem Cervicalgia M54.2 Active 274033818 Problem emt intermediate prescription opiate use Z79.899 Active 108057542 Problem Seasonal allergic rhinitis due to pollen J30.1 Active 28020334 Problem Primary insomnia F51.01 well-controlled 8779572 Problem Low back pain M54.5 Active 352539863 Problem Generalized anxiety disorder F41.1 Active 40934579 Problem AIDS B20 Active 47600637 Problem Chronic depression F32.9 Active 102281030 ALLERGIES Unknown Allergies SOCIAL HISTORY No smoking Hx information available PLAN OF CARE VITAL SIGNS MEDICATIONS Unknown Medications RESULTS No Results PROCEDURES No Known procedures IMMUNIZATIONS No Known Immunizations
--- OUTSIDE RECORDS SUMMARY | 2016-12-18 12:14 | XMS REPORT ---
Author Author Carmela Whitmore [facility] eClinicalWorks Address Unknown Phone Unavailable Care Team Providers Care Sales Data Analyst Name Role Phone Carmela Whitmore Unavailable Allergies No Known Allergies Problems Problem Type Condition Code Onset Dates Condition Status Assessment [facility] current use of 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 Z79.891 Active Problem GERD (gastroesophageal reflux disease) K21.9 Active Assessment Acquired immune deficiency syndrome B20 Active Problem AIDS B20 Active Problem Chronic depression F32.9 Active Problem Primary insomnia F51.01 Active Problem Cervicalgia M54.2 Active Problem [facility] prescription opiate use Z79.899 Active Problem Low back pain M54.5 Active Problem Generalized anxiety disorder F41.1 Active Assessment Vertigo R42 Active Assessment Generalized anxiety disorder F41.1 Active Assessment Urinary tract infection, site unspecified N39.0 Active Assessment Chronic depression F32.9 Active Assessment Diaphoresis R61 Active Assessment Screening for tuberculosis Z11.1 Active Medications Medication Code System Code Instructions Start Date End Date Status Dosage Baclofen [facility] [address]-93 10 MG Orally Three times a day Mar 20, 2015 1 tablet with food or milk Truvada [facility] [id number] 200-300 TAKE ONE TABLET BY MOUTH DAILY Evotaz [facility] 5027-3158-69 300/150 mg Oral once a day August 15, 2014 1 tab Ventolin HFA [facility] [address]-36 108 (90 Base) MCG/ACT Inhalation every 4 hrs Dec 15, 2015 2 puffs as needed Celexa [facility] [address]-24 20 MG Orally Once a day Nov 30, 2015 1 tablet Doxepin HCl [facility] [address]-62 50 MG Orally Once a day Nov 30, 2015 1 capsule at bedtime Omeprazole [facility] [address]-22 40 MG Orally Once a day August 15, 2014 1 capsule Procedures Procedure Coding System Code Date T CELL, ABSOLUTE COUNT/RATIO CPT-4 89535 Jan 10, 2016 HIV-1, DNA, QUANT CPT-4 01662 Jan 10, 2016 COMPREHEN METABOLIC PANEL CPT-4 49155 Jan 10, 2016 Billed by outside source CPT-4 NOBLL Jan 10, 2016 Venipuncture CPT-4 24515 Jan 10, 2016 Office Visit, Est Pt., Level 4 CPT-4 88580 Jan 10, 2016 URINALYSIS, AUTO, W/O SCOPE IH CPT-4 43137 Jan 10, 2016 Vital Signs Date/Time: Jan 10, 2016 Temperature 98.8 F Weight 131 lbs Height 64.5 in Respiratory Rate 17 /min Cardiac Monitoring Heart Rate 88 /min Blood Pressure Diastolic 56 mm Hg Blood Pressure Systolic 98 mm Hg BMI 22.14 Index Oximetry 98 % Results Name Result Date Reference Range Unit Abnormality Flag Progesterone ----Progesterone 0.5 28616940 ng/mL Estradiol ----Estradiol 36.9 08956124 pg/mL No Test Indicated Human Immunodeficiency Virus (HIV-1), Quantitative, Real-time PCR (graph) 49150 ----log10 HIV-1 RNA 1.699 11543542 qdw12uswy/mL ----HIV-1 RNA by PCR 50 [id number] copies/mL QMP Plus D/L (urine) B-Type Natriuretic Peptide (BNP) ----B-Type Natriuretic Peptide 38.9 79101929 0.0-100.0 pg/mL QuantiFERON TB Gold 23340 ----QuantiFERON TB Gold Negative 27233241 Negative ----QuantiFERON TB Ag Value 0.17 66557413 IU/mL ----QuantiFERON Nil Value 0.10 63223384 IU/mL ----QuantiFERON Mitogen Value 8.82 47128103 IU/mL ----QFT TB Ag minus Nil Value 0.07 38614213 IU/mL Urine Culture, Routine 76485 ----Result 1 No growth [id number] ----Urine Culture, Routine Final report [id number] Testosterone, Free, Direct with Total Testosterone 41994 37968 ----Free Testosterone(Direct) <0.2 18886997 0.0-4.2 pg/mL ----Comment: EMERGENCY DEPARTMENT CLINICIAN [id number] ----Testosterone, Serum <3 63125384 8-48 ng/dL L Summary Purpose eClinicalWorks Submission
--- OUTSIDE RECORDS SUMMARY | 2016-12-18 12:14 | XMS REPORT ---
Author Author Alessia Erickosn [facility] Address [address], [place] [address] Care Team Providers Care Charge Nurse Name Role Phone Alessia Erickson Unavailable PROBLEMS Type Condition ICD9-CM Code [id number] Code Onset Dates Condition Status SNOMED Code Problem Dermatitis L30.9 Active 18075885 Problem Insomnia G47.00 Active 689600969 Problem Primary hypothyroidism E03.9 Active 95270557 Problem Intertrigo L30.4 Active 69924484 Problem Generalized anxiety disorder F41.1 Active 39994195 Problem COPD bronchitis J44.9 Active 73738432 Problem Cervicalgia M54.2 Active 061332441 Problem halfway prescription opiate use Z79.899 Active 843485835 Problem Anxiety F41.9 Active 69120694 Problem Ab[address] CT of the head R93.0 Active 414527579 Problem Cigarette nicotine dependence, uncomplicated F17.210 Active 16531138 Problem Bilateral headaches R51 Active 938226447 Problem AIDS B20 Active 27241400 Problem Primary insomnia F51.01 Active 6883269 Problem Low back pain M54.5 Active 711207470 Problem Chronic depression F32.9 Active 607147387 Problem Migraine, unspecified, not intractable, without status migrainosus G43.909 Active 57671952 Problem Restless leg syndrome G25.81 Active 22258164 Problem Seasonal allergic rhinitis due to pollen J30.1 Active 95347390 Problem Migraine with aura and without status migrainosus, not intractable G43.109 Active 1941503 Problem GERD (gastroesophageal reflux disease) K21.9 Active 485915902 Problem Slow transit constipation K59.01 Active 01399135 Problem Constipation by delayed colonic transit K59.01 Active 85825943 ALLERGIES Unknown Allergies SOCIAL HISTORY No smoking Hx information available PLAN OF CARE VITAL SIGNS MEDICATIONS Unknown Medications RESULTS No Results PROCEDURES No Known procedures IMMUNIZATIONS No Known Immunizations
--- OUTSIDE RECORDS SUMMARY | 2016-12-18 12:14 | XMS REPORT ---
Author Author Carmela Whitmore Organization [employer] Address Unknown Phone Unavailable Care Team Providers Care High Density Press Laborer Name Role Phone Carmela Whitmore CP Unavailable Allergies No Known Allergies Problems Problem Type Condition Code Onset Dates Condition Status Problem GERD (gastroesophageal reflux disease) K21.9 Active Problem Cervicalgia M54.2 Active Problem [facility] prescription opiate use Z79.899 Active Problem Abnormal urinalysis R82.90 Active Problem AIDS B20 Active Problem Urinary tract infection, site not specified N39.0 Active Problem Smoking F17.200 Active Problem Generalized anxiety disorder F41.1 Active Problem Chronic depression F32.9 Active Problem Low back pain M54.5 Active Medications No Known Medications Results No Known Results Summary Purpose eClinicalWorks Submission
--- OUTSIDE RECORDS SUMMARY | 2016-12-18 12:14 | XMS REPORT ---
Author Author Alessia Erickson [facility] Address [address] [place], [place] [address] Care Team Providers Care Wireless Manager Name Role Phone Alessia Erickson Unavailable PROBLEMS Type Condition ICD9-CM Code TUK56-RS Code Onset Dates Condition Status SNOMED Code Problem Dermatitis L30.9 Active 12569262 Problem Insomnia G47.00 Active 398790058 Problem Primary hypothyroidism E03.9 Active 89424063 Problem Intertrigo L30.4 Active 64250077 Problem Generalized anxiety disorder F41.1 Active 05025615 Problem COPD bronchitis J44.9 Active 59514082 Problem Cervicalgia M54.2 Active 907368831 Problem [facility] prescription opiate use Z79.899 Active 169488641 Problem Anxiety F41.9 Active 50965739 Problem Abnormal CT of the head R93.0 Active 412714852 Problem Cigarette nicotine dependence, uncomplicated F17.210 Active 33432112 Problem Bilateral headaches R51 Active 020812105 Problem AIDS B20 Active 32362705 Problem Primary insomnia F51.01 Active 6833529 Problem Low back pain M54.5 Active 119484695 Problem Chronic depression F32.9 Active 979953154 Problem Migraine, unspecified, not intractable, without status migrainosus G43.909 Active 96451946 Problem Restless leg syndrome G25.81 Active 48845240 Problem Seasonal allergic rhinitis due to pollen J30.1 Active 30930102 Problem Migraine with aura and without status migrainosus, not intractable G43.109 Active 9425678 Problem GERD (gastroesophageal reflux disease) K21.9 Active 272311421 Problem Slow transit constipation K59.01 Active 54872461 Problem Constipation by delayed colonic transit K59.01 Active 04459903 ALLERGIES Unknown Allergies SOCIAL HISTORY No smoking Hx information available PLAN OF CARE VITAL SIGNS MEDICATIONS Medication Instructions Dosage Frequency Start Date End Date Duration Status Chantix Starting Month Ed 0.5 MG X 11 & 1 MG X 42 Orally 0.5 mg po daily x 3 days then 0.5 mg bid x 4, then 1 mg BID as directed Sep, 30 days Active RESULTS No Results PROCEDURES No Known procedures IMMUNIZATIONS No Known Immunizations
--- OUTSIDE RECORDS SUMMARY | 2016-12-18 12:14 | XMS REPORT | Referral Summary ---
Author Author [facility] Organization [facility] Address Unknown Phone Unavailable Care Team Providers Care Cold Header Name Role Phone Awa Prabhakar PCP Encounter [facility] [id number] Date(s): 06/11/15 - 06/11/15 [facility] [address] [place] [address] [phone] Discharge Diagnosis: Urinary tract infection, acute Discharge Disposition: 01-Home or Self Care Attending Physician: Brad Kahn MD Admitting Physician: Brad Kanh MD Vital Signs Most recent to 1 oldest [Reference Range]: Temperature Oral 36.7 degC [35.8-37.3 degC] (06/11/15 4:34 PM) Peripheral Pulse 91 bpm Rate [60-100 bpm] (06/11/15 6:40 PM) Respiratory Rate 18 br/min [14-20 br/min] (06/11/15 6:40 PM) Blood Pressure 103/69 mmHg [90-140/60-90 mmHg] (06/11/15 6:40 PM) SpO2 100 % (06/11/15 6:40 PM) Problem List Condition Effective Dates Status Health Status Informant MRSA(Confirmed) Active Tobacco Active patient user(Confirmed) Allergies, Adverse Reactions, Alerts No Known Medication Allergies Medications cephalexin 500 mg oral capsule 500 mg 1 caps, Oral, q12hr, X 7 days, # 14 caps, 0 Refill(s) Start Date: 06/11/15 Stop Date: 06/18/15 Status: Ordered Evotaz tabs, Oral, Daily, 0 Refill(s) Start Date: 02/22/15 Status: Ordered Neurontin Oral, 0 Refill(s) Start Date: 02/22/15 Status: Ordered omeprazole Oral, Daily, 0 Refill(s) Start Date: 02/22/15 Status: Ordered temazepam Oral, Bedtime (once a day), 0 Refill(s) Start Date: 02/22/15 Status: Ordered Truvada tabs, Oral, Daily, 0 Refill(s) Start Date: 02/22/15 Status: Ordered Results Chemistry Most recent to 1 oldest [Reference Range]: Screen, Negative Urine NPT (06/11/15 4:47 PM) Urinalysis Most recent to 1 oldest [Reference Range]: UA Color Nadege *ABN* (06/11/15 5:26 PM) UA Appear Cloudy *ABN* (06/11/15 5:26 PM) UA pH [5.0-8.0] 5.0 (06/11/15 5:26 PM) UA Leuk Est Pos 1+ [Negative] *ABN* (06/11/15 5:26 PM) UA Nitrite Positive [Negative] *ABN* (06/11/15 5:26 PM) UA Protein Pos 1+ [Negative] *ABN* (06/11/15 5:26 PM) UA Glucose Negative [Negative] (06/11/15 5:26 PM) UA Ketones Trace [Negative] *ABN* (06/11/15 5:26 PM) UA Urobilinogen >=4.0 mg/dL [<1.0 mg/dL] (06/11/15 5:26 PM) UA Bili [Negative] Positive *ABN* (06/11/15 5:26 PM) UA Blood [Negative] Negative (06/11/15 5:26 PM) UA Spec Grav 1.025 [1.003-1.030] (06/11/15 5:26 PM) Type Clean Catch (06/11/15 5:26 PM) UA WBC [0-4 /HPF] >50 /HPF *ABN* (06/11/15 5:26 PM) UA RBC [0-2] 0-2 (06/11/15 5:26 PM) Epithelial Cells 10-20 (06/11/15 5:26 PM) UA Bacteria Numerous *ABN* (06/11/15 5:26 PM) UA Mucous Present (06/11/15 5:26 PM) Immunizations No data available for this section Procedures Procedure Date Related Diagnosis Body Site Pacemaker care Social History Social History Type Response Smoking Status Current every day smoker; Type: Cigarettes; Tobacco use per day: 1 Pack Assessment and Plan No data available for this section
--- OUTSIDE RECORDS SUMMARY | 2016-12-18 12:14 | XMS REPORT ---
Author Author Alessia Erickson [facility] Address [address], [place] [address] Care Team Providers Care Carbon Capture Power Plant Manager Name Role Phone Alessia Erickson Unavailable PROBLEMS Type Condition ICD9-CM Code [id number] Code Onset Dates Condition Status SNOMED Code Problem Primary insomnia F51.01 well-controlled 1768760 Problem Slow transit constipation K59.01 Active 98507726 Problem Seasonal allergic rhinitis due to pollen J30.1 Active 06797294 Problem Primary hypothyroidism E03.9 Active 39084820 Assessment Need for pneumococcal vaccination Z23 July, Active 361326282 Problem Dermatitis L30.9 Active 38248352 Problem Restless leg syndrome G25.81 Active 51649477 Problem Migraine, unspecified, not intractable, without status migrainosus G43.909 Active 45983472 Problem Constipation by delayed colonic transit K59.01 Active 79521093 Problem Migraine with aura and without status migrainosus, not intractable G43.109 Active 9137112 Assessment Human immunodeficiency virus (HIV) disease B20 July, Active 63728209 Problem GERD (gastroesophageal reflux disease) K21.9 Active 155948212 Assessment Vitamin B 12 deficiency E53.8 July, Active 802241675 Assessment Abnormal thyroid exam R94.6 July, Active 537535296 Problem Generalized anxiety disorder F41.1 Active 32917140 Problem Low back pain M54.5 Active 549525336 Problem nursing home prescription opiate use Z79.899 Active 986021741 Problem Chronic depression F32.9 Active 778575605 Problem Cervicalgia M54.2 Active 354262195 Problem AIDS B20 Active 00383318 ALLERGIES Substance Reaction Event Type Date Status N.K.D.A. Unknown Non Drug Allergy July, Unknown SOCIAL HISTORY No smoking Hx information available PLAN OF CARE Activity Details Pending Test Human Immunodeficiency Virus (HIV-1), Quantitative, Real-time PCR (graph) 98461 Pending Test Triiodothyronine (T3) Pending Test Thyroid-Stimulating Hormone (TSH) and Free T4 71008/75950 Pending Test Metabolic Panel (14), Comprehensive (CMP) 11959 Pending Test CD4/CD8 Ratio Profile 24555 3 Months, prn,Reason: VITAL SIGNS Height 64.0 in 2016-07-24 Weight 178 lbs 2016-07-24 Temperature 98.3 degrees Fahrenheit 2016-07-24 Heart Rate 87 /min 2016-07-24 Respiratory Rate 16 /min 2016-07-24 Oximetry 98 % 2016-07-24 BMI 30.55 kg/m2 2016-07-24 Blood pressure systolic 112 mm Hg 2016-07-24 Blood pressure diastolic 60 mm Hg 2016-07-24 MEDICATIONS Medication Instructions Dosage Frequency Start Date End Date Duration Status Strattera 25 MG Orally Once a day 1 capsule 24h Active Temazepam 30 MG Orally Once a day 1 capsule at bedtime as needed 24h May 30 days Active Ropinirole HCl 0.5 MG Orally once a day 1 tab at bedtime 24h 30 days Active Fluocinonide Emulsified Base 0.05 % Externally twice a day as directed 12h Mar, 30 days Active Linzess 145 MCG Orally Once a day 1 capsule 24h 10 Apr, 2016 30 day(s) Active Simethicone 180 MG Orally Four times a day 1 capsule as needed 6h Jan, 10 days Active Levothyroxine Sodium 50 MCG Orally Once a day 1 tablet on an empty stomach in the morning 24h Jun, 30 day(s) Active Nystatin 449488 UNIT/ML Mouth/Throat QID 5 mls swish and swallow 6h 27 Apr 10 days Active HydrOXYzine HCl 25 MG Orally every 8 hrs 1 tablet as needed 8h 10 Apr, 2016 30 day(s) Active Celexa 40 MG Orally Once a day 1 tablet 24h 15 Nov, 2015 30 day(s) Active Ketoconazole 2 % Externally Once a day as directed 24h May, 30 days Active Ventolin HFA 108 (90 Base) MCG/ACT Inhalation four times a day 2 puffs as needed 6h 30 Nov, 2015 30 days Active Nicotine 14 APPLY ONE PATCH TO THE SKIN DAILY 28 Active Baclofen 10 TAKE ONE TABLET BY MOUTH THREE TIMES A DAY WITH FOOD 10 Active Evotaz 300/150 mg Oral once a day 1 tab 24h Aug, 30 days Active Imitrex 25 MG Orally 1 tab x1 with onset of migraine july repeat with 1 tab in 2h as directed Apr, 30 days Active Omeprazole 40 MG Orally Once a day 1 capsule 24h Aug, 30 day(s ) Active Descovy 200-25 mg Orally Once a day 1 tablet 24h May, 30 days Active RESULTS No Results PROCEDURES Procedure Date Ordered Related Diagnosis Body Site T CELL, ABSOLUTE COUNT/RATIO July 24, 2016 COMPREHEN METABOLIC PANEL July 24, 2016 Office Visit, Est Pt., Level 3 July 24, 2016 THER/PROPH/DIAG INJ, SC/IM July 24, 2016 PNEUMOCOCCAL VACC 13 CHAYA IM July 24, 2016 Billed by outside source July 24, 2016 VITAMIN B-12 July 24, 2016 IMMUNIZATION ADMIN July 24, 2016 IMMUNIZATIONS Vaccine Route Administration Date Status Pneumococcal conjugate PCV 13 IM Intramuscular July 24, 2016 Administered VITAMIN B-12 IM Intramuscular July 24, 2016 Administered
--- OUTSIDE RECORDS SUMMARY | 2016-12-18 12:14 | XMS REPORT ---
Author Author Carmela Whitmore Organization [employer] Address Unknown Phone Unavailable Care Team Providers Care Acidizer Helper Name Role Phone Carmela Whitmore CP Unavailable [...] immune deficiency syndrome 042 Active Problem senior living (current) use of 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 V58.69 Active Problem Lumbago 724.2 Active Problem Depressive disorder, not elsewhere classified 311 Active Problem Abdominal pain, unspecified site 789.00 Active Medications No Known Medications Results No Known Results Summary Purpose eClinicalWorks Submission
--- OUTSIDE RECORDS SUMMARY | 2016-12-18 12:14 | XMS REPORT ---
Author Author Carmela Whitmore Organization [employer] Address Unknown Phone Unavailable Care Team Providers Care Desktop Support Consultant Name Role Phone Carmela Whitmore CP Unavailable [...] GERD (gastroesophageal reflux disease) K21.9 Active Problem skilled nursing prescription opiate use Z79.899 Active Problem Cervicalgia M54.2 Active Problem Generalized anxiety disorder F41.1 Active Medications No Known Medications Results No Known Results Summary Purpose eClinicalWorks Submission
--- OUTSIDE RECORDS SUMMARY | 2016-12-18 12:14 | XMS REPORT ---
Author Author Carmela Whitmore Organization [employer] Address Unknown Phone Unavailable Care Team Providers Care Installation Superintendent Name Role Phone Carmela Whitmore Unavailable Allergies No Known Allergies Problems Problem Type Condition Code Onset Dates Condition Status Assessment Urinary tract infection, site not specified N39.0 Active Problem skilled nursing prescription opiate use Z79.899 Active Problem GERD (gastroesophageal reflux disease) K21.9 Active Problem AIDS B20 Active Problem Chronic depression F32.9 Active Problem Abnormal urinalysis R82.90 Active Problem Generalized anxiety disorder F41.1 Active Problem Cervicalgia M54.2 Active Problem Low back pain M54.5 Active Problem Smoking F17.200 Active Medications Medication Code System Code Instructions Start Date End Date Status Dosage Cipro [facility] [address]-12 500 MG Orally Twice a day Mar 28, 2015 1 tablet Results No Known Results Summary Purpose eClinicalWorks Submission
--- OUTSIDE RECORDS SUMMARY | 2016-12-18 12:15 | XMS REPORT ---
Author Author Alessia Erickson [facility] Address [address] [place], [place] [id number] Care Team Providers Care Edge Dyer Name Role Phone Alessia Erickson Unavailable PROBLEMS Type Condition ICD9-CM Code ZEQ76-CR Code Onset Dates Condition Status SNOMED Code Problem GERD (gastroesophageal reflux disease) K21.9 Active 624129008 Problem [facility] prescription opiate use Z79.899 Active 019450614 Problem Cervicalgia M54.2 Active 662027752 Problem Insomnia G47.00 Active 123162605 Problem Generalized anxiety disorder F41.1 [address] of the head R93.0 Active 217770825 Problem Low back pain M54.5 Active 627982176 Problem Anxiety F41.9 Active 59279107 Problem Cigarette nicotine dependence, uncomplicated F17.210 Active 80287248 Problem Bilateral headaches R51 Active 988043528 Problem Dorsalgia M54.9 Active 619074359 Problem Chronic pruritus L29.9 Active 161654493 Problem Primary insomnia F51.01 Active 0657029 Problem AIDS B20 Active 42407845 Problem Chronic depression F32.9 Active 635818976 Problem Intertrigo L30.4 Active 38667625 Problem COPD bronchitis J44.9 Active 32548180 Problem Body lice infestation B85.1 Active 49508993 Problem Other chronic pain G89.29 Active 54457033 Problem Migraine, unspecified, not intractable, without status migrainosus G43.909 Active 22637604 Problem Restless leg syndrome G25.81 Active 85001104 Problem Seasonal allergic rhinitis due to pollen J30.1 Active 17953233 Problem Slow transit constipation K59.01 Active 03486629 Problem Dermatitis L30.9 Active 23746573 Problem Primary hypothyroidism E03.9 Active 11619911 Problem Migraine with aura and without status migrainosus, not intractable G43.109 Active 8774533 Problem Constipation by delayed colonic transit K59.01 Active 36383145 ALLERGIES No Information SOCIAL HISTORY Never Assessed PLAN OF CARE VITAL SIGNS MEDICATIONS Medication Instructions Dosage Frequency Start Date End Date Duration Status Ketoconazole 2 % Externally Once a day as directed 24h May, 30 days Active RESULTS No [...] History Abdominal pain, unspecified site Medical History [facility] (current) 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
--- OUTSIDE RECORDS SUMMARY | 2016-12-18 12:15 | XMS REPORT ---
Author Author Carmela Whitmore [facility] eClinicalWorks Address Unknown Phone Unavailable Care Team Providers Care Field Broomer Name Role Phone Carmela Whitmore Unavailable Allergies, Adverse Reactions, Alerts Substance Reaction Event Type N.K.D.A. 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 Z79.899 Active Problem Smoking F17.200 Active Problem Generalized anxiety disorder F41.1 Active Assessment Degenerative arthritis of knee, bilateral M17.0 Active Assessment Chronic depression F32.9 Active Assessment Generalized anxiety disorder F41.1 Active Assessment Smoking F17.200 Active Medications Medication Code System Code Instructions Start Date End Date Status Dosage Evotaz [facility] 9605-5072-21 300/150 mg Oral Daily August 15, 2014 1 Symbicort [facility] [address]-36 160-4.5 MCG/ACT Inhalation Twice a day Mar 06, 2015 2 puffs Truvada [facility] [address]-78 200-300 MG Oral 1 (one) daily July 26, 2013 1 tablet Omeprazole [facility] [address]-34 40 MG Orally Once a day August 15, 2014 1 capsule Temazepam [facility] [address]-81 30 MG Orally Once a day Mar 14, 2014 Mar 24, 2015 1 capsule at bedtime as needed Neurontin [facility] [address]-18 100 MG Orally Three times a day Mar 06, 2015 as directed Strattera [facility] [address]-51 40 MG Orally Once a day Mar 06, 2015 1 capsule in the morning HydrOXYzine HCl [facility] [address]-13 50 MG Oral QHS Oct 27, 2013 1 Procedures Procedure Coding System Code Date IMMUNIZATION ADMIN CPT-4 48369 Mar 06, 2015 Screen Printing Press Operator 3-10 Min in ASX Smoker CPT-4 G0436 Mar 06, 2015 FLU VAC NO PRSV 4 CHAYA 3 YRS+ CPT-4 30321 Mar 06, 2015 Office Visit, Est Pt., Level 3 CPT-4 53258 Mar 06, 2015 Vital Signs Date/Time: Mar 06, 2015 Temperature 98.9 F Weight 154 lbs Height 64.5 in Respiratory Rate 16 /min Cardiac Monitoring Heart Rate 66 /min Blood Pressure Diastolic 51 mm Hg Blood Pressure Systolic 108 mm Hg BMI 26.02 Index Oximetry 98 % Results Name Result Date Reference Range Unit Abnormality Flag X ray : Spines, lumbar 2 views Human Immunodeficiency Virus (HIV-1), Quantitative, Real-time PCR (graph) 17457 ----HIV-1 RNA by PCR <20 [id number] copies/mL ----log10 HIV-1 RNA TNP [id number] rig83utde/mL X ray : Knee, left X ray : Knee, right Metabolic Panel (14), Comprehensive (CMP) 60848 ----Potassium, Serum 3.6 20150306 3.5-5.2 mmol/L ----Sodium, Serum 144 77600883 134-144 mmol/L ----BUN/Creatinine Ratio 13 20150306 9-23 ----eGFR If Africn Am 125 [id number] >59 mL/min/1.73 ----eGFR If NonAfricn Am 108 34468234 >59 mL/min/1.73 ----Creatinine, Serum 0.64 20150306 0.57-1.00 mg/dL ----BUN 8 20150306 6-24 mg/dL ----Glucose, Serum 59 91155298 65-99 mg/dL L ----AST (SGOT) 13 20150306 0-40 IU/L ----Globulin, Total 1.8 20150306 1.5-4.5 g/dL ----ALT (SGPT) 7 20150306 0-32 IU/L ----A/G Ratio 2.4 20150306 1.1-2.5 ----Bilirubin, Total 1.0 12386831 0.0-1.2 mg/dL ----Alkaline Phosphatase, S 91 20150306 39-117 IU/L ----Carbon Dioxide, Total 19 20150306 18-29 mmol/L ----Calcium, Serum 9.0 20150306 8.7-10.2 mg/dL ----Protein, Total, Serum 6.1 20150306 6.0-8.5 g/dL ----Albumin, Serum 4.3 20150306 3.5-5.5 g/dL ----Chloride, Serum 106 20150306 97-108 mmol/L CD4/CD8 Ratio Profile 45934 ----MCV 91 20150306 79-97 fL ----MCHC 32.5 20150306 31.5-35.7 g/dL ----MCH 29.4 20150306 26.6-33.0 pg ----Platelets 261 20150306 150-379 x10E3/uL ----RDW 15.0 20150306 12.3-15.4 % ----Lymphs 24 20150306 % ----Neutrophils 63 20150306 % ----NRBC CASTING COORDINATOR 20150306 ----Hematology Comments: CASTING COORDINATOR 20150306 ----Abs. CD 8 Suppressor 762 20150306 109-897 /uL ----% CD 4 Pos. Lymph. 31.4 20150306 30.8-58.5 % ----CD4/CD8 Ratio 0.58 20150306 0.92-3.72 L ----% CD 8 Pos. Lymph. 54.4 01996715 12.0-35.5 % H ----RBC 4.62 20150306 3.77-5.28 x10E6/uL ----WBC 5.7 20150306 3.4-10.8 x10E3/uL ----Hematocrit 41.8 68619467 34.0-46.6 % ----Hemoglobin 13.6 20150306 11.1-15.9 g/dL ----Immature Grans (Abs) 0.0 20150306 0.0-0.1 x10E3/uL ----Immature Granulocytes 0 20150306 % ----Baso (Absolute) 0.0 20150306 0.0-0.2 x10E3/uL ----Eos (Absolute) 0.1 20150306 0.0-0.4 x10E3/uL ----Monocytes(Absolute) 0.6 20150306 0.1-0.9 x10E3/uL ----Lymphs (Absolute) 1.4 89229025 0.7-3.1 x10E3/uL ----Absolute CD 4 [place] 440 20150306 359-1519 /uL ----Neutrophils (Absolute) 3.6 20150306 1.4-7.0 x10E3/uL ----Immature Cells CASTING COORDINATOR 20150306 ----Basos 0 20150306 % ----Monocytes 11 20150306 % ----Eos 2 24179625 % Immunizations Vaccine Administration Date Influenza Split 3 yrs > (QUAD) Mar 06, 2015 Summary Purpose eClinicalWorks Submission
--- OUTSIDE RECORDS SUMMARY | 2016-12-18 12:15 | XMS REPORT ---
Author Author MICHAEL MENJIVAR Organization [facility] Address [address] [place] [address] Care Team Providers Care Legal Paraprofessional Name Role Phone TIARA MICHAEL Unavailable PROBLEMS Type Condition ICD9-CM Code [id number] Code Onset Dates Condition Status SNOMED Code Problem Generalized headaches R51 Active 485401883 Problem Tobacco abuse Z72.0 Active 470148490 Problem Tobacco abuse counseling Z71.6 Active 782570924 Problem Constipation, unspecified constipation type K59.00 Active 70627585 Problem HIV antibody positive Z21 Active 401120593 Problem Family history of diabetes mellitus Z83.3 Active 292652889 Problem 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 Unknown Non Drug Allergy Feb, Unknown SOCIAL HISTORY No smoking Hx information available PLAN OF CARE Activity Details Follow Up prn Reason: VITAL SIGNS Height 64 in 2016-03-05 Weight 159.8 lbs 2016-03-05 Temperature 98.2 degrees Fahrenheit 2016-03-05 Heart Rate 84 bpm 2016-03-05 Respiratory Rate 18 2016-03-05 BMI 27.43 kg/m2 2016-03-05 Blood pressure systolic 118 mmHg 2016-03-05 Blood pressure diastolic 76 mmHg 2016-03-05 MEDICATIONS Medication Instructions Dosage Frequency Start Date End Date Duration Status Omeprazole 20 MG Orally Once a day 2 capsules 24h Active Celexa 20 MG Orally Once a day 1 tablet 24h Active Evotaz 300-150 MG Orally Once a day 1 tablet with food 24h Active Requip 0.5 MG Orally Once a day take one tablet 30-60 minutes prior to sleep 24h Feb, Active Truvada 200-300 MG Orally Once a day 1 tablet 24h Active Topamax 25 MG Orally Once a day 1 tablet daily at bedtime 24h Feb, Active Strattera 80 MG Active Amitriptyline HCl 10 MG Orally Once a day 1 tablet 24h Active HydrOXYzine HCl 25 MG Orally every 8 hrs 1 tablet as needed 8h Feb, Active Triamcinolone Acetonide 0.025 % Externally Twice a day apply thin layer to sores 12h Feb, Active RESULTS No Results PROCEDURES Procedure Date Ordered Related Diagnosis Body Site [facility] VISIT ESTABLISHED PATIENT Mar 05, 2016 Office Visit, Est Pt., Level 3 Mar 05, 2016 IMMUNIZATIONS No Known Immunizations
--- OUTSIDE RECORDS SUMMARY | 2016-12-18 12:15 | XMS REPORT ---
Author Author Carmela Whitmore [facility] eClinicalWorks Address Unknown Phone Unavailable Care Team Providers Care Retail Office Manager Name Role Phone Carmela Whitmore Unavailable Allergies No Known Allergies Problems Problem Type Condition ICD-9 Code Onset Dates Condition Status Problem Cervicalgia 723.1 Inactive Problem Unspecified disorder of the teeth and supporting structures 525.9 Inactive Problem Pain in joint, forearm 719.43 Inactive Problem Symptomatic menopausal or female climacteric states 627.2 Inactive Problem Wqjzbcsuoq-jhbqnhh-kzdguaowp, combined [DTP] [DtaP] V06.1 Inactive Problem Need [...] vaccination and inoculation, Influenza V04.81 Inactive Problem long term care phlebotomist (current) use of 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 V58.69 Inactive Problem Abdominal pain, epigastric 789.06 Inactive Medications No Known Medications Results No Known Results Summary Purpose eClinicalWorks Submission
--- OUTSIDE RECORDS SUMMARY | 2016-12-18 12:15 | XMS REPORT ---
Author Author Huang Arias Organization eClinicalWorks Address Unknown Phone Unavailable Care Team Providers Care Timing Inspector Name Role Phone Huang Arias CP Unavailable [...] Acquired immune deficiency syndrome 042 Active Problem alf (current) use of 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 V58.69 Active Problem Lumbago 724.2 Active Problem Depressive disorder, not elsewhere classified 311 Active Problem Abdominal pain, unspecified site 789.00 Active Medications No Known Medications Results No Known Results Summary Purpose eClinicalWorks Submission
--- OUTSIDE RECORDS SUMMARY | 2016-12-18 12:15 | XMS REPORT ---
Author Author Alessia Erickson [facility] Address [address] [place], [place] [address] Care Team Providers Care Global Sales Executive Name Role Phone Alessia Erickson Unavailable PROBLEMS Type Condition ICD9-CM Code YKE14-NB Code Onset Dates Condition Status SNOMED Code Problem Chronic depression F32.9 Active 888588134 Problem Primary insomnia F51.01 well-controlled 3244039 Problem AIDS B20 Active 62341703 Problem Constipation by delayed colonic transit K59.01 Active 80733836 Problem Migraine with aura and without status migrainosus, not intractable G43.109 Active 3201452 Problem Slow transit constipation K59.01 Active 42279130 Problem Seasonal allergic rhinitis due to pollen J30.1 Active 03702950 Problem Restless leg syndrome G25.81 Active 20137951 Problem Migraine, unspecified, not intractable, without status migrainosus G43.909 Active 85287337 Assessment Thrush B37.0 Apr, Active 29676349 Assessment Bloating R14.0 Apr, Active 160615166 Assessment Abnormal CT of brain R90.89 Apr, Active 965214739 Problem care home prescription opiate use Z79.899 Active 289932479 Problem Cervicalgia M54.2 Active 780715135 Assessment Scabies B86 Apr, Active 723739046 Problem Generalized anxiety disorder F41.1 Active 44199977 Problem GERD (gastroesophageal reflux disease) K21.9 Active 801710816 Problem Low back pain M54.5 Active 796269800 ALLERGIES Substance Reaction Event Type Date Status N.K.D.A. Unknown Non Drug Allergy Apr, Unknown SOCIAL HISTORY No smoking Hx information available PLAN OF CARE Activity Details Pending Test QMP Plus D/L (urine) Pending Test MRI : Brain with and without contrast 3 Months, prn,Reason: VITAL SIGNS Height 64.0 in 2016-05-13 Weight 169 lbs 2016-05-13 Temperature 96.1 degrees Fahrenheit 2016-05-13 Heart Rate 78 /min 2016-05-13 Respiratory Rate 16 /min 2016-05-13 Oximetry 94 % 2016-05-13 BMI 29.01 kg/m2 2016-05-13 Blood pressure systolic 120 mm Hg 2016-05-13 Blood pressure diastolic 82 mm Hg 2016-05-13 MEDICATIONS Medication Instructions Dosage Frequency Start Date End Date Duration Status Baclofen 10 MG Orally Three times a day 1 tablet with food or milk 8h Mar, 10 days Active Baclofen 10 TAKE ONE TABLET BY MOUTH THREE TIMES A DAY WITH FOOD 10 Active Simethicone 180 MG Orally Four times a day 1 capsule as needed 6h Jan, 10 days Active Evotaz 300/150 mg Oral once a day 1 tab 24h Aug, 30 days Active Nortriptyline HCl 25 MG Orally Once a day 1 capsule 24h Apr, 30 day(s) Active Truvada 200-300 MG Orally Once a day 1 tablet 24h 30 days Active Permethrin 5 % Externally apply head to toe; leave on 8-12h then wash off with water, may reapply in 1 week as directed Apr, 1 dose Active HydrOXYzine HCl 25 MG Orally every 8 hrs 1 tablet as needed 8h Apr, 30 day(s) Active Linzess 145 MCG Orally Once a day 1 capsule 24h Apr, 30 day(s) Active Strattera 25 MG Orally Once a day 1 capsule 24h Active Colace 100 MG Orally twice a day 1 capsule as needed 12h Feb, 30 day(s) Active Celexa 40 MG Orally Once a day 1 tablet 24h Nov, 30 day(s) Active Nystatin 378812 UNIT/ML Mouth/Throat QID 5 mls swish and swallow 6h Apr 10 days Active Ropinirole HCl 0.5 MG Orally once a day 1 tab at bedtime 24h 30 days Active Ventolin HFA 108 (90 Base) MCG/ACT Inhalation four times a day 2 puffs as needed 6h 30 Nov, 2015 30 days Active Omeprazole 40 MG Orally Once a day 1 capsule 24h Aug, 30 day(s ) Active Permethrin 5 % Externally apply head to toe; leave on 8-12h then wash off with water, may repeat daily for 5 days then stop as directed 05 days Active Imitrex 25 MG Orally 1 tab x1 with onset of migraine may repeat with 1 tab in 2h as directed Apr, 30 days Active Fluocinonide Emulsified Base 0.05 % Externally twice a day as directed 12h Mar, 30 days Active RESULTS No Results PROCEDURES Procedure Date Ordered Related Diagnosis Body Site Billed by outside source May 13, 2016 Office Visit, Est Pt., Level 3 May 13, 2016 IMMUNIZATIONS No Known Immunizations
--- OUTSIDE RECORDS SUMMARY | 2016-12-18 12:15 | XMS REPORT ---
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 Problem Smoking F17.200 Active Problem Generalized anxiety disorder F41.1 Active Medications Medication Code System Code Instructions Start Date End Date Status Dosage HydrOXYzine HCl [facility] [address]-17 50 MG Oral QHS Oct 27, 2013 1 Diclofenac Sodium [facility] [address]-48 75 MG Orally Twice a day Mar 14, 2015 1 tablet Evotaz [facility] 3937-8950-40 300/150 mg Oral Daily August 15, 2014 1 Strattera [facility] [address]-42 40 MG Orally Once a day Mar 06, 2015 1 capsule in the morning Omeprazole [facility] [address]-41 40 MG Orally Once a day August 15, 2014 1 capsule Nicotine Step 3 [facility] [address]109 7 MG/24HR Transdermal Once a day Mar 20, 2015 1 patch to skin Symbicort [facility] [address]-53 160-4.5 MCG/ACT Inhalation Twice a day Mar 06, 2015 2 puffs Temazepam [facility] [address]-38 30 MG Orally Once a day Mar 14, 2014 Mar 24, 2015 1 capsule at bedtime as needed Neurontin [facility] [address]-42 100 MG Orally Three times a day Mar 06, 2015 as directed Baclofen [facility] [address]-19 10 MG Orally Three times a day Mar 20, 2015 1 tablet with food or milk Nicotine Step 2 [facility] [address]017 14 MG/24HR Transdermal Once a day Mar 20, 2015 1 patch to skin Jaison [facility] [address]-31 200-300 MG Oral 1 (one) daily July 26, 2013 1 tablet Nicotine Step 1 [facility] [address]61 21 MG/24HR Transdermal Once a day Mar 20, 2015 1 patch to skin Results No Known Results Summary Purpose eClinicalWorks Submission
--- OUTSIDE RECORDS SUMMARY | 2016-12-18 12:16 | XMS REPORT | Referral Summary ---
Author Author [facility] Organization [facility] Address Unknown Phone Unavailable Care Team Providers Care Compressed Yeast Supervisor Name Role Phone Awa Prabhakar PCP Encounter Date(s): 12/11/15 - 12/11/15 [facility] [address] [place], [place] [address] Discharge Disposition: 01-Home or Self Care Attending Physician: Awa Prabhakar MD Admitting Physician: Awa Prabhakar MD Vital Signs No data available for this section Problem List Condition Effective Dates Status Health [...]
--- OUTSIDE RECORDS SUMMARY | 2016-12-18 12:16 | XMS REPORT ---
Author Author Awa Prabhakar Organization [employer]ClinicalWorks Address Unknown Phone Unavailable Care Team Providers Care Community Development Manager Name Role Phone Awa Prabhakar CP Unavailable [...] Acquired immune deficiency syndrome 042 Active Problem halfway (current) use of 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 V58.69 Active Problem Lumbago 724.2 Active Problem Depressive disorder, not elsewhere classified 311 Active Problem Abdominal pain, unspecified site 789.00 Active Medications No Known Medications Results No Known Results Summary Purpose eClinicalWorks Submission
--- OUTSIDE RECORDS SUMMARY | 2016-12-18 12:16 | XMS REPORT ---
Author Author Carmela Whitmore 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
--- OUTSIDE RECORDS SUMMARY | 2016-12-18 12:16 | XMS REPORT ---
Author Author Carmela Whitmore [facility] eClinicalWorks Address Unknown Phone Unavailable Care Team Providers Care Box Press Operator Name Role Phone Carmela Whitmore Unavailable Allergies, Adverse Reactions, Alerts Substance Reaction Event Type N.K.D.A. Info Not Available Non Drug Allergy Problems Problem Type Condition ICD-9 Code Onset Dates Condition Status Problem Generalized anxiety disorder 300.02 Active Problem Nondependent tobacco use disorder 305.1 Active Problem Cervicalgia 723.1 Active Problem GERD (gastroesophageal reflux disease) 530.81 Active Problem Colitis 558.9 Active Problem Acquired immune deficiency syndrome 042 Active Problem care home (current) use of 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 V58.69 Active Problem Lumbago 724.2 Active Problem Depressive disorder, not elsewhere classified 311 Active Problem Abdominal pain, unspecified site 789.00 Active Assessment Nondependent tobacco use disorder 305.1 Active Assessment GERD (gastroesophageal reflux disease) 530.81 Active Assessment Acquired immune deficiency syndrome 042 Active Assessment Colitis 558.9 Active Problem Morbid obesity 278.01 Active Assessment UTI (lower urinary tract infection) 599.0 Active Problem Unspecified sinusitis (chronic) 473.9 Active Medications Medication Code System Code Instructions Start Date End Date Status Dosage Evotaz [facility] 3987-1015-47 300/150 mg Oral Daily August 15, 2014 1 Temazepam [facility] [address]-33 15 MG Orally Once a day Mar 14, 2014 1 capsule at bedtime as needed Omeprazole [facility] [address]-00 40 MG Orally Once a day August 15, 2014 1 capsule Hydrocodone-Acetaminophen [facility] [address]-39 5-325 MG Orally every 6 hrs August 15, 2014 1-2 tablet as needed Pentasa [facility] [address]-38 500 MG Orally Four times a day August 15, 2014 2 capsules Truvada [facility] [address]-60 200-300 MG Oral 1 (one) daily July 26, 2013 1 tablet Phentermine HCl [facility] [address]-75 37.5 MG Orally Once a day June 01, 2014 1 tablet HydrOXYzine HCl [facility] [address]-07 50 MG Oral QHS Oct 27, 2013 1 Augmentin [facility] [address]-95 875-125 MG Orally Twice a day August 15, 2014 1 tablet Procedures Procedure Coding System Code Date Office Visit, Est Pt., Level 3 CPT-4 80874 August 15, 2014 Shellacker 3-10 Min in ASX Smoker CPT-4 G0436 August 15, 2014 Vital Signs Date/Time: August 15, 2014 Temperature 98.1 F Weight 162 lbs Height 64.5 in Respiratory Rate 16 /min Cardiac Monitoring Heart Rate 61 /min Blood Pressure Diastolic 63 mm Hg Blood Pressure Systolic 97 mm Hg BMI 27.37 Index Oximetry 97 % Results No Known Results Summary Purpose eClinicalWorks Submission
--- OUTSIDE RECORDS SUMMARY | 2016-12-18 12:16 | XMS REPORT ---
Author Author Carmela Whitmore [facility] eClinicalWorks Address Unknown Phone Unavailable Care Team Providers Care Manager Radio Name Role Phone Carmela Whitmore Unavailable Allergies [...] GERD (gastroesophageal reflux disease) K21.9 Active Problem [facility] prescription opiate use Z79.899 Active Problem Cervicalgia M54.2 Active Assessment SOB (shortness of breath) R06.02 Active Problem Generalized anxiety disorder F41.1 Active Medications Medication Code System Code Instructions Start Date End Date Status Dosage Nicotine Step 2 [facility] [address]189-76312 14 MG/24HR Transdermal Once a day Mar 20, 2015 1 patch to skin Celexa [facility] [address]-85 20 MG Orally Once a day Nov 30, 2015 1 tablet Ventolin HFA [facility] [address]-41 108 (90 Base) MCG/ACT Inhalation every 4 hrs Dec 15, 2015 2 puffs as needed HydrOXYzine HCl [facility] [address]-30 50 MG Oral QHS Oct 27, 2013 1 Nicotine Step 1 [facility] 96345-80016 21 MG/24HR Transdermal Once a day Mar 20, 2015 1 patch to skin Doxepin HCl [facility] [address]-60 50 MG Orally Once a day Nov 30, 2015 1 capsule at bedtime Evotaz [facility] 2084-5708-78 300/150 mg Oral once a day August 15, 2014 1 tab Truvada [facility] 68695693086 200-300 TAKE ONE TABLET BY MOUTH DAILY Baclofen [facility] [address]-70 10 MG Orally Three times a day Mar 20, 2015 1 tablet with food or milk Nicotine 21 mg patch (for one month) [facility] [address]-84 21 MG/24HR Transdermal Once a day then switch to 14 mg patch Nov 30, 2015 1 patch to skin Omeprazole [facility] [address]-31 40 MG Orally Once a day August 15, 2014 1 capsule Results No Known Results Summary Purpose eClinicalWorks Submission
--- OUTSIDE RECORDS SUMMARY | 2016-12-18 12:16 | XMS REPORT ---
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 of 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 V58.69 Active Problem Lumbago 724.2 Active Problem Depressive disorder, not elsewhere classified 311 Active Problem Abdominal pain, unspecified site 789.00 Active Assessment Lumbago 724.2 Active Problem Morbid obesity 278.01 Active Problem Unspecified sinusitis (chronic) 473.9 Active Medications Medication Code System Code Instructions Start Date End Date Status Dosage Bentyl [facility] 15668872572 20 Orally Four times a day 1 tablet Pentasa [facility] [address]-21 500 MG Orally Four times a day August 15, 2014 2 capsules HydrOXYzine HCl [facility] [address]-51 50 MG Oral QHS Oct 27, 2013 1 Truvada [facility] [address]-93 200-300 MG Oral 1 (one) daily July 26, 2013 1 tablet Augmentin [facility] [address]-92 875-125 MG Orally Twice a day August 15, 2014 1 tablet Nulytely with Flavor Packs [facility] [address]-46 420 GM Orally August 23, 2014 as directed Temazepam [facility] [address]-89 15 MG Orally Once a day Mar 14, 2014 1 capsule at bedtime as needed Hydrocodone-Acetaminophen [facility] [address]-22 7.5-325 MG Orally every 6 hrs August 26, 2014 September 25, 2014 1 tablet as needed Omeprazole [facility] [address]-52 40 MG Orally Once a day August 15, 2014 1 capsule Evotaz [facility] 8679-2166-35 300/150 mg Oral Daily August 15, 2014 1 Results No Known Results Summary Purpose eClinicalWorks Submission
--- OUTSIDE RECORDS SUMMARY | 2016-12-18 12:16 | XMS REPORT ---
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
--- OUTSIDE RECORDS SUMMARY | 2016-12-18 12:16 | XMS REPORT ---
Author Author Alessia Erickson [facility] Address [address], [place] [address] Care Team Providers Care Hat Blocker Name Role Phone Alessia Erickson Unavailable PROBLEMS Type Condition ICD9-CM Code [id number] Code Onset Dates Condition Status SNOMED Code Problem Dermatitis L30.9 Active 29423418 Problem Insomnia G47.00 Active 632239927 Problem Primary hypothyroidism E03.9 Active 23526793 Problem Intertrigo L30.4 Active 36096241 Problem Generalized anxiety disorder F41.1 Active 28323983 Problem COPD bronchitis J44.9 Active 23183525 Problem Cervicalgia M54.2 Active 832118630 Problem long-term prescription opiate use Z79.899 Active 944446676 Problem Anxiety F41.9 Active 74196142 Problem Abnormal CT of the head R93.0 Active 433913161 Problem Cigarette nicotine dependence, uncomplicated F17.210 Active 02964017 Problem Bilateral headaches R51 Active 341803395 Problem AIDS B20 Active 07610923 Problem Primary insomnia F51.01 Active 8009008 Problem Low back pain M54.5 Active 261757791 Problem Chronic depression F32.9 Active 478283460 Problem Migraine, unspecified, not intractable, without status migrainosus G43.909 Active 33506363 Problem Restless leg syndrome G25.81 Active 70847736 Problem Seasonal allergic rhinitis due to pollen J30.1 Active 95382067 Problem Migraine with aura and without status migrainosus, not intractable G43.109 Active 0383341 Problem GERD (gastroesophageal reflux disease) K21.9 Active 356242405 Problem Slow transit constipation K59.01 Active 93171621 Problem Constipation by delayed colonic transit K59.01 Active 08254333 ALLERGIES Unknown Allergies SOCIAL HISTORY No smoking Hx information available PLAN OF CARE VITAL SIGNS MEDICATIONS Unknown Medications RESULTS No Results PROCEDURES No Known procedures IMMUNIZATIONS No Known Immunizations
--- OUTSIDE RECORDS SUMMARY | 2016-12-18 12:16 | XMS REPORT ---
Author Author Carmela Whitmore [facility] eClinicalWorks Address Unknown Phone Unavailable Care Team Providers Care Welder Tack Name Role Phone Carmela Whitmore CP Unavailable Allergies No Known Allergies Problems Problem Type Condition Code Onset Dates Condition Status Assessment Chronic depression F32.9 Active Problem retirement prescription opiate use Z79.899 Active Problem GERD (gastroesophageal reflux disease) K21.9 Active Assessment Bloating R14.0 Active Assessment Primary insomnia F51.01 Active Problem Primary insomnia F51.01 Active Problem AIDS B20 Active Problem Seasonal allergic rhinitis due to pollen J30.1 Active Problem Generalized anxiety disorder F41.1 Active Problem Cervicalgia M54.2 Active Problem Chronic depression F32.9 Active Problem Low back pain M54.5 Active Medications Medication Code System Code Instructions Start Date End Date Status Dosage Ventolin HFA [facility] [address]-73 108 (90 Base) MCG/ACT Inhalation four times a day Dec 15, 2015 2 puffs as needed Evotaz [facility] 6334-8123-11 300/150 mg Oral once a day August 15, 2014 1 tab Celexa [facility] [address]-49 40 MG Orally Once a day Nov 30, 2015 1 tablet Fluticasone Propionate [facility] [address]-03 50 MCG/ACT Nasally Once a day Jan 30, 2016 2 spray in each nostril Truvada [facility] [address]-94 200-300 MG Orally Once a day 1 tablet Strattera [facility] [address]-46 25 MG Orally Once a day 1 capsule Amitriptyline HCl [facility] [address]-65 25 MG Orally Once a day Feb 13, 2016 1-2 tablet at bedtime Simethicone [facility] [address]-72 180 MG Orally Four times a day Feb 13, 2016 1 capsule as needed Omeprazole [facility] [address]-55 40 MG Orally Once a day August 15, 2014 1 capsule Baclofen [facility] [address]-98 10 MG Orally Three times a day Mar 20, 2015 1 tablet with food or milk Results No Known Results Summary Purpose eClinicalWorks Submission
--- OUTSIDE RECORDS SUMMARY | 2016-12-18 12:17 | XMS REPORT ---
Author Author Carmela Whitmore Organization eClinicalWorks Address Unknown Phone Unavailable Care Team Providers Care Sod Stripper Name Role Phone Carmela Whitmore CP Unavailable Allergies No Known Allergies Problems Problem Type Condition Code Onset Dates Condition Status Problem GERD (gastroesophageal reflux disease) K21.9 Active Problem Cervicalgia M54.2 Active Problem penitentiary prescription opiate use Z79.899 Active Assessment Acquired immune deficiency syndrome 042 Active Problem Abnormal urinalysis R82.90 Active Problem AIDS B20 Active Problem Urinary tract infection, site not specified N39.0 Active Problem Smoking F17.200 Active Problem Generalized anxiety disorder F41.1 Active Problem Chronic depression F32.9 Active Problem Low back pain M54.5 Active Medications Medication Code System Code Instructions Start Date End Date Status Dosage Evotaz [facility] 4116-4169-43 300/150 mg Oral once a day August 15, 2014 1 tab Results No Known Results Summary Purpose eClinicalWorks Submission
--- OUTSIDE RECORDS SUMMARY | 2016-12-18 12:17 | XMS REPORT ---
Author Author Carmela Whitmore [facility] Address [address], [place] [id number] Care Team Providers Care Injection Mold Technician Name Role Phone Carmela Whitmore Unavailable PROBLEMS Type Condition ICD9-CM Code [id number] Code Onset Dates Condition Status SNOMED Code Problem Seasonal allergic rhinitis due to pollen J30.1 Active 08202987 Problem Migraine, unspecified, not intractable, without status migrainosus G43.909 Active 53521964 Problem Slow transit constipation K59.01 Active 62073246 Problem Insomnia G47.00 Active 405980991 Problem Primary hypothyroidism E03.9 Active 62461669 Problem Migraine with aura and without status migrainosus, not intractable G43.109 Active 8257298 Problem Restless leg syndrome G25.81 Active 12274845 Problem Dermatitis L30.9 Active 45732587 Problem Constipation by delayed colonic transit K59.01 Active 46339100 Problem GERD (gastroesophageal reflux disease) K21.9 Active 367984006 Problem [facility] prescription opiate use Z79.899 Active 894940009 Problem Low back pain M54.5 Active 658428488 Problem Chronic depression F32.9 Active 869188886 Problem Cervicalgia M54.2 Active 960008423 Problem AIDS B20 Active 21586667 Problem Generalized anxiety disorder F41.1 Active 08426474 Problem Primary insomnia F51.01 Active 6380502 ALLERGIES Unknown Allergies SOCIAL HISTORY No smoking Hx information available PLAN OF CARE VITAL SIGNS MEDICATIONS Unknown Medications RESULTS No Results PROCEDURES No Known procedures IMMUNIZATIONS No Known Immunizations
--- OUTSIDE RECORDS SUMMARY | 2016-12-18 12:17 | XMS REPORT | Referral Summary ---
Author Author [facility] Organization [facility] Address Unknown Phone Unavailable Care Team Providers Care Christian Counselor Name Role Phone Awa Prabhakar PCP Encounter [facility] [id number] Date(s): 02/22/15 - 02/22/[address] [facility] [address], [place] [address] Discharge Diagnosis: Anxiety Discharge Diagnosis: Bipolar illness Discharge Disposition: -Psychiatric Facility Attending Physician: Francis Carranza MD Admitting Physician: Francis Carranza MD Vital Signs Most recent to 1 oldest [Reference Range]: Temperature Oral 36.8 degC [35.8-37.3 degC] (02/22/15 5:54 PM) Peripheral Pulse 60 bpm Rate [60-100 bpm] (02/22/15 5:54 PM) Heart Rate Monitored 61 bpm [60-100 bpm] (02/22/15 4:46 PM) Respiratory Rate 16 br/min [14-20 br/min] (02/22/15 3:42 PM) Blood Pressure 98/67 mmHg [90-140/60-90 mmHg] (02/22/15 5:54 PM) Mean Arterial 80 mmHg Pressure, Cuff (02/22/15 4:46 PM) SpO2 96 % (02/22/15 5:54 PM) Problem List Condition Effective Dates Status [...]
--- OUTSIDE RECORDS SUMMARY | 2016-12-18 12:17 | XMS REPORT ---
Author Author Carmela Whitmore [facility] Address [address], [place] [id number] Care Team Providers Care Document Preparer Microfilming Name Role Phone Carmela Whitmore Unavailable PROBLEMS Type Condition ICD9-CM Code [id number] Code Onset Dates Condition Status SNOMED Code Problem AIDS B20 Active 71644203 Problem Seasonal allergic rhinitis due to pollen J30.1 Active 39774264 Problem Primary insomnia F51.01 well-controlled 5723541 Problem Dermatitis L30.9 Active 27436377 Problem Constipation by delayed colonic transit K59.01 Active 25200239 Problem Migraine, unspecified, not intractable, without status migrainosus G43.909 Active 90251493 Problem Slow transit constipation K59.01 Active 47617942 Problem Migraine with aura and without status migrainosus, not intractable G43.109 Active 1292455 Problem Restless leg syndrome G25.81 Active 63119492 Assessment Thrush B37.0 May, Active 92202284 Problem Cervicalgia M54.2 Active 651248215 Problem Generalized anxiety disorder F41.1 Active 95605766 Problem GERD (gastroesophageal reflux disease) K21.9 Active 754332927 Problem Low back pain M54.5 Active 784761575 Problem manager intermediate prescription opiate use Z79.899 Active 505119273 Problem Chronic depression F32.9 Active 424821684 ALLERGIES Unknown Allergies SOCIAL HISTORY No smoking Hx information available PLAN OF CARE VITAL SIGNS MEDICATIONS Medication Instructions Dosage Frequency Start Date End Date Duration Status Nystatin 433407 UNIT/ML Mouth/Throat QID 5 mls swish and swallow 6h Apr 10 days Active RESULTS No Results PROCEDURES No Known procedures IMMUNIZATIONS No Known Immunizations
--- OUTSIDE RECORDS SUMMARY | 2016-12-18 12:17 | XMS REPORT ---
Author Author Carmela Whitmore Organization eClinicalWorks Address Unknown Phone Unavailable Care Team Providers Care Business Banking Representative Name Role Phone Carmela Whitmore CP Unavailable Allergies No Known Allergies Problems Problem Type Condition Code Onset Dates Condition Status Problem GERD (gastroesophageal reflux disease) K21.9 Active Problem Cervicalgia M54.2 Active Problem snf prescription opiate use Z79.899 Active Problem Abnormal urinalysis R82.90 Active Problem AIDS B20 Active Problem Urinary tract infection, site not specified N39.0 Active Problem Smoking F17.200 Active Problem Generalized anxiety disorder F41.1 Active Problem Chronic depression F32.9 Active Problem Low back pain M54.5 Active Medications No Known Medications Results No Known Results Summary Purpose eClinicalWorks Submission
--- OUTSIDE RECORDS SUMMARY | 2016-12-18 12:17 | XMS REPORT ---
Author Carmela Willson [facility] eClinicalWorks Address Unknown Phone Unavailable Care Team Providers Care Buckle Attacher Name Role Phone Carmela Whitmore Unavailable Allergies No Known Allergies Problems Problem Type Condition Code Onset Dates Condition Status Problem Cervicalgia 723.1 Inactive Problem Unspecified disorder of the teeth and supporting structures 525.9 Inactive Problem Pain in joint, forearm 719.43 Inactive Problem Symptomatic menopausal or female climacteric states 627.2 Inactive Problem Vsyfjnczmb-naclsgh-rutwjrrvf, combined [DTP] [DtaP] V06.1 Inactive Problem Need [...] vaccination and inoculation, Influenza V04.81 Inactive Problem skein inspector (current) use of 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 V58.69 Inactive Problem Abdominal pain, epigastric 789.06 Inactive Medications Medication Code System Code Instructions Start Date End Date Status Dosage Macrobid [facility] [address]-70 100 MG Orally every 12 hrs July 19, 2014 1 capsule with food Results No Known Results Summary Purpose eClinicalWorks Submission
--- OUTSIDE RECORDS SUMMARY | 2016-12-18 12:17 | XMS REPORT ---
Author Author Carmela Whitmore Organization eClinicalWorks Address Unknown Phone Unavailable Care Team Providers Care Diesel Power Mechanic Name Role Phone Carmela Whitmore CP Unavailable Allergies No Known Allergies Problems Problem Type Condition Code Onset Dates Condition Status Problem Abnormal urinalysis R82.90 Active Problem Primary insomnia F51.01 Active Problem Urinary tract infection, site not specified N39.0 Active Problem Screening for tuberculosis Z11.1 Active Problem Vertigo R42 Active Problem Acquired immune deficiency syndrome B20 Active Problem Smoker F17.200 Active Problem Moderate episode of recurrent major depressive disorder F33.1 Active Problem Diaphoresis R61 Active Problem Abnormal chest xray R93.8 Active Problem GERD (gastroesophageal reflux disease) K21.9 Active Problem custodial prescription opiate use Z79.899 Active Problem Smoking F17.200 Active Problem Low back pain M54.5 Active Problem Cervicalgia M54.2 Active Problem Chronic depression F32.9 Active Problem Generalized anxiety disorder F41.1 Active Problem AIDS B20 Active Medications No Known Medications Results No Known Results Summary Purpose eClinicalWorks Submission
--- OUTSIDE RECORDS SUMMARY | 2016-12-18 12:17 | XMS REPORT ---
Author Author Alessia Erickson [facility] Address [address], [place] [address] Care Team Providers Care Alodize Machine Helper Name Role Phone Alessia Erickson Unavailable PROBLEMS Type Condition ICD9-CM Code [id number] Code Onset Dates Condition Status SNOMED Code Problem GERD (gastroesophageal reflux disease) K21.9 Active 845694634 Problem sales person prescription opiate use Z79.899 Active 777614283 Problem Cervicalgia M54.2 Active 416234986 Problem Insomnia G47.00 Active 707399787 Problem Generalized anxiety disorder F41.1 Active 43486780 Problem Abnormal CT of the head R93.0 Active 414474765 Problem Low back pain M54.5 Active 646983028 Problem Anxiety F41.9 Active 56389447 Problem Cigarette nicotine dependence, uncomplicated F17.210 Active 45716482 Problem Bilateral headaches R51 Active 102708149 Problem Dorsalgia M54.9 Active 988268672 Problem Chronic pruritus L29.9 Active 736933702 Problem Primary insomnia F51.01 Active 8961960 Problem AIDS B20 Active 63084586 Problem Chronic depression F32.9 Active 530146356 Problem Intertrigo L30.4 Active 48952572 Problem COPD bronchitis J44.9 Active 50580935 Problem Body lice infestation B85.1 Active 37013174 Problem Other chronic pain G89.29 Active 73181460 Problem Migraine, unspecified, not intractable, without status migrainosus G43.909 Active 66335435 Problem Restless leg syndrome G25.81 Active 22393365 Problem Seasonal allergic rhinitis due to pollen J30.1 Active 66753728 Problem Slow transit constipation K59.01 Active 93934545 Problem Dermatitis L30.9 Active 97345989 Problem Primary hypothyroidism E03.9 Active 02130605 Problem Migraine with aura and without status migrainosus, not intractable G43.109 Active 9429388 Problem Constipation by delayed colonic transit K59.01 Active 34641358 ALLERGIES No Information SOCIAL HISTORY Never Assessed [...] History Abdominal pain, unspecified site Medical History sales person (current) 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
--- OUTSIDE RECORDS SUMMARY | 2016-12-18 12:17 | XMS REPORT ---
Author Author Carmela Whitmore [facility] eClinicalWorks Address Unknown Phone Unavailable Care Team Providers Care Line Patrolman Name Role Phone Carmela Whitmore CP Unavailable Allergies No Known Allergies Problems Problem Type Condition Code Onset Dates Condition Status Assessment Chronic depression F32.9 Active Problem vermin exterminator prescription opiate use Z79.899 Active Problem GERD (gastroesophageal reflux disease) K21.9 Active Problem Primary insomnia F51.01 Active Problem AIDS B20 Active Problem Seasonal allergic rhinitis due to pollen J30.1 Active Problem Generalized anxiety disorder F41.1 Active Problem Cervicalgia M54.2 Active Problem Chronic depression F32.9 Active Problem Low back pain M54.5 Active Assessment SOB (shortness of breath) R06.02 Active Assessment AIDS B20 Active Assessment Seasonal allergic rhinitis due to pollen J30.1 Active Assessment GERD (gastroesophageal reflux disease) K21.9 Active Assessment Low back pain M54.5 Active Assessment Primary insomnia F51.01 Active Medications Medication Code System Code Instructions Start Date End Date Status Dosage Celexa [facility] [address]-36 20 MG Orally Once a day Nov 30, 2015 1 tablet Ventolin HFA [facility] [address]-19 108 (90 Base) MCG/ACT Inhalation four times a day Dec 15, 2015 2 puffs as needed Evotaz [facility] 4241-2967-45 300/150 mg Oral once a day August 15, 2014 1 tab Omeprazole [facility] [address]-91 40 MG Orally Once a day August 15, 2014 1 capsule Doxepin HCl [facility] [address]-90 50 MG Orally Once a day Nov 30, 2015 1 capsule at bedtime Truvada [facility] [address]-85 200-300 MG Orally Once a day 1 tablet Strattera [facility] [address]-86 25 MG Orally Once a day 1 capsule Fluticasone Propionate [facility] [address]-69 50 MCG/ACT Nasally Once a day Jan 30, 2016 2 spray in each nostril Baclofen NDC [address]-13 10 MG Orally Three times a day Mar 20, 2015 1 tablet with food or milk Results No Known Results Summary Purpose eClinicalWorks Submission
--- OUTSIDE RECORDS SUMMARY | 2016-12-18 12:17 | XMS REPORT ---
Author Author Alessia Erickson [facility] Address [address], [place] [id number] Care Team Providers Care Laborer Syrup Machine Name Role Phone Alessia Erickson Unavailable PROBLEMS Type Condition ICD9-CM Code [id number] Code Onset Dates Condition Status SNOMED Code Problem Dermatitis L30.9 Active 17061924 Problem Insomnia G47.00 Active 650555435 Problem Primary hypothyroidism E03.9 Active 47402577 Problem Intertrigo L30.4 Active 60644891 Problem Generalized anxiety disorder F41.1 Active 69488383 Problem COPD bronchitis J44.9 Active 02107790 Problem Cervicalgia M54.2 Active 987083771 Problem retirement prescription opiate use Z79.899 Active 453374041 Problem Anxiety F41.9 Active 9[address]372 Problem Ab[address] of the head R93.0 Active 004585517 Problem Cigarette nicotine dependence, uncomplicated F17.210 Active 49558041 Problem Bilateral headaches R51 Active 570087409 Problem AIDS B20 Active 87721598 Problem Primary insomnia F51.01 Active 2581825 Problem Low back pain M54.5 Active 106779365 Problem Chronic depression F32.9 Active 528052695 Problem Migraine, unspecified, not intractable, without status migrainosus G43.909 Active 77759565 Problem Restless leg syndrome G25.81 Active 84624028 Problem Seasonal allergic rhinitis due to pollen J30.1 Active 93989699 Problem Migraine with aura and without status migrainosus, not intractable G43.109 Active 3231351 Problem GERD (gastroesophageal reflux disease) K21.9 Active 027044705 Problem Slow transit constipation K59.01 Active 75832193 Problem Constipation by delayed colonic transit K59.01 Active 39139279 ALLERGIES Unknown Allergies SOCIAL HISTORY No smoking Hx information available PLAN OF CARE VITAL SIGNS MEDICATIONS Unknown Medications RESULTS No Results PROCEDURES No Known procedures IMMUNIZATIONS No Known Immunizations
--- OUTSIDE RECORDS SUMMARY | 2016-12-18 12:17 | XMS REPORT ---
Author Author Carmela Whitmore [facility] Address [address], [place] [id number] Care Team Providers Care Radio Artist Name Role Phone Carmela Whitmore Unavailable PROBLEMS Type Condition ICD9-CM Code [id number] Code Onset Dates Condition Status SNOMED Code Problem Seasonal allergic rhinitis due to pollen J30.1 Active 71786749 Problem Migraine, unspecified, not intractable, without status migrainosus G43.909 Active 31889509 Problem Slow transit constipation K59.01 Active 78690450 Problem Insomnia G47.00 Active 009205350 Problem Primary hypothyroidism E03.9 Active 34248381 Problem Migraine with aura and without status migrainosus, not intractable G43.109 Active 5373141 Problem Restless leg syndrome G25.81 Active 35745906 Problem Dermatitis L30.9 Active 02872904 Problem Constipation by delayed colonic transit K59.01 Active 11643662 Problem GERD (gastroesophageal reflux disease) K21.9 Active 010759532 Problem residential prescription opiate use Z79.899 Active 401800487 Problem Low back pain M54.5 Active 552166591 Problem Chronic depression F32.9 Active 539406374 Problem Cervicalgia M54.2 Active 828818468 Problem AIDS B20 Active 53114127 Problem Generalized anxiety disorder F41.1 Active 94181725 Problem Primary insomnia F51.01 well-controlled 5995726 ALLERGIES Unknown Allergies SOCIAL HISTORY No smoking Hx information available PLAN OF CARE VITAL SIGNS MEDICATIONS Medication Instructions Dosage Frequency Start Date End Date Duration Status Topiramate 25 MG Oral Once a day TAKE ONE TABLET BY MOUTH AT BEDTIME 24h 30 Active RESULTS No Results PROCEDURES No Known procedures IMMUNIZATIONS No Known Immunizations
--- OUTSIDE RECORDS SUMMARY | 2016-12-18 12:17 | XMS REPORT ---
Author Author Alessia Erickson [facility] Address [address] [place], [place] [id number] Care Team Providers Care Food Service Lead Name Role Phone Alessia Erickson Unavailable PROBLEMS Type Condition ICD9-CM Code [id number] Code Onset Dates Condition Status SNOMED Code Problem GERD (gastroesophageal reflux disease) K21.9 Active 424215323 Problem senior living prescription opiate use Z79.899 Active 630339185 Problem Primary hypothyroidism E03.9 Active 05177184 Problem Cervicalgia M54.2 Active 353690857 Problem Insomnia G47.00 Active 456804935 Problem Generalized anxiety disorder F41.1 Active [address] Problem [address] of the head R93.0 Active 174805794 Problem Bilateral headaches R51 Active 422908825 Problem Anxiety F41.9 Active 80042484 Problem Chronic pruritus L29.9 Active 291647272 Problem Body lice infestation B85.1 Active 70844465 Problem AIDS B20 Active 70457213 Problem Chronic depression F32.9 Active 352317164 Problem Low back pain M54.5 Active 180046324 Problem COPD bronchitis J44.9 Active 72433312 Problem Cigarette nicotine dependence, uncomplicated F17.210 Active 96795583 Problem Other chronic pain G89.29 Active 24113371 Problem Intertrigo L30.4 Active 20899587 Problem Slow transit constipation K59.01 Active 24976641 Problem Migraine, unspecified, not intractable, without status migrainosus G43.909 Active 09858825 Problem Primary insomnia F51.01 Active 8986155 Problem Seasonal allergic rhinitis due to pollen J30.1 Active 35814343 Problem Constipation by delayed colonic transit K59.01 Active 62344947 Problem Dermatitis L30.9 Active 68566570 Problem Restless leg syndrome G25.81 Active 78925572 Problem Migraine with aura and without status migrainosus, not intractable G43.109 Active 8090827 ALLERGIES Unknown Allergies SOCIAL HISTORY No smoking Hx information available PLAN OF CARE VITAL SIGNS MEDICATIONS Unknown Medications RESULTS No Results PROCEDURES No Known procedures IMMUNIZATIONS No Known Immunizations
--- OUTSIDE RECORDS SUMMARY | 2016-12-18 12:17 | XMS REPORT ---
Author Author Carmela Whitmore Organization eClinicalWorks Address Unknown Phone Unavailable Care Team Providers Care Tower Truck Driver Name Role Phone Carmela Whitmore CP Unavailable Allergies No Known Allergies Problems Problem Type Condition Code Onset Dates Condition Status Assessment Chronic depression F32.9 Active Problem buttermaker continuous churn prescription opiate use Z79.899 Active Problem GERD [...] Instructions Start Date End Date Status Dosage Simethicone [facility] [address]-66 180 MG Orally Four times a day Feb 13, 2016 1 capsule as needed Celexa [facility] [address]-51 40 MG Orally Once a day Nov 30, 2015 1 tablet Amitriptyline HCl [facility] [address]-33 25 MG Orally Once a day Feb 13, 2016 1-2 tablet at bedtime Results No Known Results Summary Purpose eClinicalWorks Submission
--- OUTSIDE RECORDS SUMMARY | 2016-12-18 12:18 | XMS REPORT ---
Author Author Carmela Whitmore Organization eClinicalWorks Address Unknown Phone Unavailable Care Team Providers Care Crop Scout Name Role Phone Carmela Whitmore CP Unavailable [...] GERD (gastroesophageal reflux disease) K21.9 Active Problem prison prescription opiate use Z79.899 Active Problem Smoking F17.200 Active Problem Low back pain M54.5 Active Problem Cervicalgia M54.2 Active Problem Chronic depression F32.9 Active Problem Generalized anxiety disorder F41.1 Active Problem AIDS B20 Active Medications No Known Medications Results No Known Results Summary Purpose eClinicalWorks Submission
--- OUTSIDE RECORDS SUMMARY | 2016-12-18 12:18 | XMS REPORT ---
Author Author Carmela Whitmore [facility] Address [address] [place], [place] [id number] Care Team Providers Care Professional Services Specialist Name Role Phone Carmela Whitmore Unavailable PROBLEMS Type Condition ICD9-CM Code BUL49-KK Code Onset Dates Condition Status SNOMED Code Problem Slow transit constipation K59.01 Active 34686000 Problem Restless leg syndrome G25.81 Active 65810104 Problem Migraine, unspecified, not intractable, without status migrainosus G43.909 Active 96132345 Problem Ab[address] of the head R93.0 Active 110154660 Problem Insomnia G47.00 Active 303714540 Problem Constipation by delayed colonic transit K59.01 Active 20318688 Problem Migraine with aura and without status migrainosus, not intractable G43.109 Active 9058378 Problem Primary hypothyroidism E03.9 Active 51138058 Problem Dermatitis L30.9 Active 79726474 Problem half-way prescription opiate use Z79.899 Active 522629739 Problem Cervicalgia M54.2 Active 548160946 Problem GERD (gastroesophageal reflux disease) K21.9 Active 171952618 Problem Chronic depression F32.9 Active 500033684 Problem AIDS B20 Active 46119953 Problem Generalized anxiety disorder F41.1 Active 41617284 Problem Primary insomnia F51.01 Active 0220740 Problem Low back pain M54.5 Active 869541216 Problem Seasonal allergic rhinitis due to pollen J30.1 Active 63286845 ALLERGIES Unknown Allergies SOCIAL HISTORY No smoking Hx information available PLAN OF CARE VITAL SIGNS MEDICATIONS Medication Instructions Dosage Frequency Start Date End Date Duration Status HydrOXYzine HCl 25 MG Orally every 8 hrs 1 tablet as needed 8h Apr, 30 day(s) Active PredniSONE 10 MG Orally 8tabs day1,7tabs day2,6tabs day3,5tabs day4,4tabs day5 ,3tabs day6,2tabs day7,1tab day8 tablet 30 Aug, 2016 Sep, 8 days Active Omeprazole 40 MG Orally Once a day 1 capsule 24h Aug, 30 day(s ) Active Temazepam 30 MG Orally Once a day 1 capsule at bedtime as needed 24h May 30 days Active Evotaz 300/150 mg Oral once a day 1 tab 24h Aug, 30 days Active Topiramate 25 MG Oral Once a day TAKE ONE TABLET BY MOUTH AT BEDTIME 24h 30 Active Fluocinonide-E 0.05 APPLY TO AFFECTED AREA(S) EXTERNALLY TWO TIMES A DAY 15 Active Nortriptyline HCl 25 MG Orally Once a day 1 capsule 24h Apr, 30 day(s) Active Ventolin HFA 90 INHALE TWO PUFFS BY MOUTH EVERY 4 HOURS NEEDED 16 Active Remeron 15 Orally Once a day 1/2 tablet at bedtime 24h 20 Active Levaquin 500 MG Orally Once a day 1 tablet 24h 30 Aug, 2016 Sep, 7 days Active Linzess 145 MCG Orally Once a day 1 capsule 24h 10 Apr, 2016 30 day(s) Active Fluocinonide Emulsified Base 0.05 % Externally twice a day as directed 12h Mar, 30 days Active Ventolin HFA 108 (90 Base) MCG/ACT Inhalation four times a day 2 puffs as needed 6h 30 Nov, 2015 30 days Active Strattera 25 MG Orally Once a day 1 capsule 24h Active Remeron 15 MG Orally Once a day 1/2 tablet at bedtime 24h July, Active Ketoconazole 2 % Externally Once a day as directed 24h May, 30 days Active Celexa 40 MG Orally Once a day 1 tablet 24h Nov, 30 day(s) Active Simethicone 180 MG Orally Four times a day 1 capsule as needed 6h Jan, 10 days Active Imitrex 25 MG Orally 1 tab x1 with onset of migraine may repeat with 1 tab in 2h as directed Apr, 30 days Active Nicotine 14 APPLY ONE PATCH TO THE SKIN DAILY 28 Active Descovy 200-25 mg Orally Once a day 1 tablet 24h May, 30 days Active Ropinirole HCl 0.5 MG Orally once a day 1 tab at bedtime 24h 30 days Active Levothyroxine Sodium 50 MCG Orally Once a day 1 tablet on an empty stomach in the morning 24h Jun, 30 day(s) Active Baclofen 10 TAKE ONE TABLET BY MOUTH THREE TIMES A DAY WITH FOOD 10 Active Nystatin 806629 UNIT/ML Mouth/Throat QID 5 mls swish and swallow 6h Apr 10 days Active RESULTS No Results PROCEDURES No Known procedures IMMUNIZATIONS No Known Immunizations
--- OUTSIDE RECORDS SUMMARY | 2016-12-18 12:18 | XMS REPORT ---
Author Carmela Willson [facility] eClinicalWorks Address Unknown Phone Unavailable Care Team Providers Care Campaign Manager Name Role Phone Carmela Whitmore Unavailable Allergies, Adverse Reactions, Alerts Substance Reaction Event Type N.K.D.A. Info Not Available Non Drug Allergy Problems Problem Type Condition ICD-9 Code Onset Dates Condition Status Problem Cervicalgia 723.1 Inactive Problem Unspecified disorder of the teeth and supporting structures 525.9 Inactive Problem Pain in joint, forearm 719.43 Inactive Problem Symptomatic menopausal or female climacteric states 627.2 Inactive Problem Gnvzcwfarx-cyqmhig-ocecxhhxw, combined [DTP] [DtaP] V06.1 Inactive Problem Need for prophylactic vaccination against streptococcus pneumoniae ( pneumococcus) V03.82 Inactive Problem Nondependent tobacco use disorder 305.1 Active Problem Lumbago 724.2 Active Problem Loss of weight 783.21 Inactive Problem Human immunodeficiency virus [HIV] 042 Active Problem Unspecified trichomoniasis 131.9 Inactive Problem Anorexia 783.0 Inactive Problem Unspecified drug dependence, unspecified abuse 304.90 Inactive Problem Unspecified genital herpes 054.10 Inactive Problem Urinary tract infection, site not specified 599.0 Inactive Problem Screening examination for venereal disease V74.5 Inactive Problem Trichomonal vulvovaginitis 131.01 Inactive Problem Other and unspecified mycoses 117.9 Inactive Problem Candidiasis of vulva and vagina 112.1 Inactive Problem Need for prophylactic vaccination and inoculation, Influenza V04.81 Inactive Problem senior living (current) use of 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 V58.69 Inactive Problem Abdominal pain, epigastric 789.06 Inactive Assessment Lumbago 724.2 Active Assessment Migraine 346.90 Active Assessment Encounter for long-term current use of medication V58.69 Active Assessment Nondependent tobacco use disorder 305.1 Active Assessment Anxiety 300.00 Active Assessment Insomnia 780.52 Active Assessment Acquired immune deficiency syndrome 042 Active Problem Unspecified vaginitis and vulvovaginitis 616.10 Inactive Assessment Depressive disorder, not elsewhere classified 311 Active Problem Other psychological or physical stress, not elsewhere classified V62.89 Inactive Problem Leukorrhea, not specified as infective 623.5 Inactive Problem Abdominal pain, unspecified site 789.00 Inactive Problem Routine gynecological examination V72.31 Active Problem Asymptomatic human immunodeficiency virus (HIV) infection status V08 Inactive Problem Dysuria 788.1 Inactive Problem Human immunodeficiency virus (HIV) disease 042 Active Problem Attention deficit disorder of childhood without mention of hyperactivity 314.00 Inactive Problem Screening examination for pulmonary tuberculosis V74.1 Inactive Problem Acute upper respiratory infections of unspecified site 465.9 Inactive Problem Heartburn 787.1 Active Problem Morbid obesity 278.01 Inactive Problem Depressive disorder, not elsewhere classified 311 Active Problem Headache 784.0 Inactive Problem Spasm of muscle 728.85 Inactive Problem Surgical or other procedure not carried out because of patient's decision V64.2 Inactive Problem Generalized anxiety disorder 300.02 Active Problem Unspecified dental caries 521.00 Inactive Problem Counseling on substance use and abuse V65.42 Inactive Problem Unspecified sinusitis (chronic) 473.9 Inactive Problem Unspecified sleep disturbance 780.50 Inactive Problem Anxiety state, unspecified 300.00 Inactive Medications Medication Code System Code Instructions Start Date End Date Status Dosage Topamax [facility] [address]-62 100 MG Orally Once a day-after taper up Apr 28, 2014 1 tablet Truvada [facility] [address]-91 200-300 MG Oral 1 (one) daily July 26, 2013 1 tablet BusPIRone HCl [facility] [address]-34 10 MG Orally TID Dec 03, 2013 1 tablet Clonidine HCl [facility] [address]-07 0.1 MG Orally Once a day Dec 03, 2013 1 tablet HydrOXYzine HCl [facility] [address]-42 50 MG Oral QHS Oct 27, 2013 1 Pantoprazole Sodium [facility] [address]-44 40 MG Oral 1 (one) Tablet DR daily July 26, 2013 1 tablet Temazepam [facility] [address]-49 15 MG Orally Once a day Mar 14, 2014 1 capsule at bedtime as needed Norvir [facility] [address]-24 100 MG Oral 1 (one) daily July 26, 2013 1 capsule with a meal Reyataz [facility] [address]-82 300 MG Oral 1 (one) daily July 26, 2013 1 Topamax [facility] [address]-83 25 MG Orally 1 tab QHS x 7d, then 2 tabs QHS x 7d , then 3 tabs QHS X 7d then 4 tabs QHS cont. Apr 28, 2014 1 tablet at bedtime Procedures Procedure Coding System Code Date Office Visit, Est Pt., Level 3 CPT-4 36902 Apr 28, 2014 Billed by outside source CPT-4 NOBLL Apr 28, 2014 Vital Signs Date/Time: Apr 28, 2014 Blood Pressure Systolic 85 mm Hg Weight 169 lbs Height 64.5 in Oximetry 96 % Respiratory Rate 16 /min Cardiac Monitoring Heart Rate 64 /min Blood Pressure Diastolic 56 mm Hg BMI 28.56 Index Results No Known Results Summary Purpose eClinicalWorks Submission
--- OUTSIDE RECORDS SUMMARY | 2016-12-18 12:18 | XMS REPORT ---
Author Author Alessia Erickson [facility] Address [address] [place], [place] [id number] Care Team Providers Care Gearman Name Role Phone Alessia Erickson Unavailable PROBLEMS Type Condition ICD9-CM Code [id number] Code Onset Dates Condition Status SNOMED Code Problem Dermatitis L30.9 Active 67307341 Problem Insomnia G47.00 Active 741052360 Problem Primary hypothyroidism E03.9 Active 57162764 Problem Intertrigo L30.4 Active 96547387 Problem Generalized anxiety disorder F41.1 Active 69222640 Problem COPD bronchitis J44.9 Active 77822363 Problem Cervicalgia M54.2 Active 361249089 Problem custodial prescription opiate use Z79.899 Active 448478038 Problem Anxiety F41.9 Active [address] of the head R93.0 Active 729464194 Problem Cigarette nicotine dependence, uncomplicated F17.210 Active 78251916 Problem Bilateral headaches R51 Active 691821369 Problem AIDS B20 Active 90608264 Problem Primary insomnia F51.01 Active 0778328 Problem Low back pain M54.5 Active 798475347 Problem Chronic depression F32.9 Active 712585098 Problem Migraine, unspecified, not intractable, without status migrainosus G43.909 Active 39061854 Problem Restless leg syndrome G25.81 Active 39894670 Problem Seasonal allergic rhinitis due to pollen J30.1 Active 17860538 Problem Migraine with aura and without status migrainosus, not intractable G43.109 Active 3415395 Problem GERD (gastroesophageal reflux disease) K21.9 Active 335832578 Problem Slow transit constipation K59.01 Active 54893240 Problem Constipation by delayed colonic transit K59.01 Active 01093749 ALLERGIES Unknown Allergies SOCIAL HISTORY No smoking Hx information available PLAN OF CARE VITAL SIGNS MEDICATIONS Unknown Medications RESULTS No Results PROCEDURES No Known procedures IMMUNIZATIONS No Known Immunizations
--- OUTSIDE RECORDS SUMMARY | 2016-12-18 12:18 | XMS REPORT ---
Author Author Alessia Erickson [facility] Address [address] [place], [place] [id number] Care Team Providers Care Specialty Person Name Role Phone Alessia Erickson Unavailable PROBLEMS Type Condition ICD9-CM Code PEH00-HB Code Onset Dates Condition Status SNOMED Code Problem GERD (gastroesophageal reflux disease) K21.9 Active 335074295 Problem penitentiary prescription opiate use Z79.899 Active 970328818 Problem Cervicalgia M54.2 Active 088405712 Problem Insomnia G47.00 Active 739400130 Problem Generalized anxiety disorder F41.1 Active 35947265 Problem Abnormal CT of the head R93.0 Active 601129433 Problem Low back pain M54.5 Active 935813984 Problem Anxiety F41.9 Active 12928862 Problem Cigarette nicotine dependence, uncomplicated F17.210 Active 18493662 Problem Bilateral headaches R51 Active 691315930 Problem Dorsalgia M54.9 Active 070135798 Problem Chronic pruritus L29.9 Active 979643177 Problem Primary insomnia F51.01 Active 3005447 Problem AIDS B20 Active 27160595 Problem Chronic depression F32.9 Active 011951913 Problem Intertrigo L30.4 Active 86056882 Problem COPD bronchitis J44.9 Active 53463948 Problem Body lice infestation B85.1 Active 60826854 Problem Other chronic pain G89.29 Active 86953333 Problem Migraine, unspecified, not intractable, without status migrainosus G43.909 Active 95039697 Problem Restless leg syndrome G25.81 Active 74388398 Problem Seasonal allergic rhinitis due to pollen J30.1 Active 66956962 Problem Slow transit constipation K59.01 Active 43565361 Problem Dermatitis L30.9 Active 12501091 Problem Primary hypothyroidism E03.9 Active 46669248 Problem Migraine with aura and without status migrainosus, not intractable G43.109 Active 9643506 Problem Constipation by delayed colonic transit K59.01 Active 33323426 ALLERGIES Unknown Allergies SOCIAL HISTORY No smoking Hx information available PLAN OF CARE VITAL SIGNS MEDICATIONS Unknown Medications RESULTS No Results PROCEDURES No Known procedures IMMUNIZATIONS No Known Immunizations
--- OUTSIDE RECORDS SUMMARY | 2016-12-18 12:18 | XMS REPORT ---
Author Bethany Yin Organization [employer] Address Unknown Phone Unavailable Care Team Providers Care Supervisor Engraving Name Role Phone Bethany Peoples CP Unavailable Allergies, Adverse Reactions, Alerts Substance Reaction Event Type N.K.D.A. 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 V58.69 Active Problem Depressive disorder, not elsewhere classified 311 Active Problem Cervicalgia 723.1 Active Problem Generalized anxiety disorder 300.02 Active Problem Lumbago 724.2 Active Problem Nondependent tobacco use disorder 305.1 Active Medications Medication Code System Code Instructions Start Date End Date Status Dosage Temazepam [facility] [address]-94 15 MG Orally Once a day Mar 14, 2014 1 capsule at bedtime as needed Topamax [facility] [address]-15 25 MG Orally 1 tab QHS x 7d, then 2 tabs QHS x 7d , then 3 tabs QHS X 7d then 4 tabs QHS cont. Apr 28, 2014 1 tablet at bedtime Reyataz [facility] [address]-58 300 MG Oral 1 (one) daily July 26, 2013 1 HydrOXYzine HCl [facility] [address]-07 50 MG Oral QHS Oct 27, 2013 1 Topamax [facility] [address]-00 100 MG Orally Once a day-after taper up Apr 28, 2014 1 tablet Truvada [facility] [address]-94 200-300 MG Oral 1 (one) daily July 26, 2013 1 tablet Phentermine HCl [facility] [address]-76 37.5 MG Orally Once a day June 01, 2014 1 tablet Norvir [facility] [address]-12 100 MG Oral 1 (one) daily July 26, 2013 1 capsule with a meal Pantoprazole Sodium [facility] [address]-91 40 MG Oral 1 (one) Tablet DR daily July 26, 2013 1 tablet Bactrim DS [facility] [address]-73 800-160 MG Orally BID July 12, 2014 1 tablet Procedures Procedure Coding System Code Date URINALYSIS, AUTO, W/O SCOPE CPT-4 22438 July 12, 2014 URINE TEST CPT-4 85897 July 12, 2014 Billed by outside source CPT-4 NOBLL July 12, 2014 Office Visit, Est Pt., Level 3 CPT-4 54561 July 12, 2014 Vital Signs Date/Time: July 12, 2014 Temperature 98.8 F Weight 164 lbs Height 64.5 in Respiratory Rate 16 /min Cardiac Monitoring Heart Rate 73 /min Blood Pressure Diastolic 62 mm Hg Blood Pressure Systolic 98 mm Hg BMI 27.71 Index Oximetry 98 % Results No Known Results Summary Purpose [employer] Submission
--- OUTSIDE RECORDS SUMMARY | 2016-12-18 12:18 | XMS REPORT ---
Author Author Alessia Erickson [facility] Address [address], [place] [id number] Care Team Providers Care Slicing Machine Operator Name Role Phone Alessia Erickson Unavailable PROBLEMS Type Condition ICD9-CM Code [id number] Code Onset Dates Condition Status SNOMED Code Problem GERD (gastroesophageal reflux disease) K21.9 Active 939432064 Problem terminal clerk prescription opiate use Z79.899 Active 137991664 Problem Cervicalgia M54.2 Active 350973724 Problem Insomnia G47.00 Active 297204795 Problem Generalized anxiety disorder F41.1 Active 61435344 Problem Ab[address] CT of the head R93.0 Active 871250477 Problem Low back pain M54.5 Active 194326581 Problem Anxiety F41.9 Active 19660511 Problem Cigarette nicotine dependence, uncomplicated F17.210 Active 25442498 Problem Bilateral headaches R51 Active 015102512 Problem Dorsalgia M54.9 Active 409884911 Problem Chronic pruritus L29.9 Active 613202935 Problem Primary insomnia F51.01 Active 7529521 Problem AIDS B20 Active 63215333 Problem Chronic depression F32.9 Active 288418830 Problem Intertrigo L30.4 Active 95779766 Problem COPD bronchitis J44.9 Active 68626174 Problem Body lice infestation B85.1 Active 06312760 Problem Other chronic pain G89.29 Active 22498322 Problem Migraine, unspecified, not intractable, without status migrainosus G43.909 Active 68282996 Problem Restless leg syndrome G25.81 Active 70783661 Problem Seasonal allergic rhinitis due to pollen J30.1 Active 45779165 Problem Slow transit constipation K59.01 Active 23955961 Problem Dermatitis L30.9 Active 12159552 Problem Primary hypothyroidism E03.9 Active 31036811 Problem Migraine with aura and without status migrainosus, not intractable G43.109 Active 8545856 Problem Constipation by delayed colonic transit K59.01 Active 18497968 ALLERGIES No Information SOCIAL HISTORY Never Assessed [...] Abdominal pain, unspecified site Medical History terminal clerk (current) 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
--- OUTSIDE RECORDS SUMMARY | 2016-12-18 12:18 | XMS REPORT ---
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 Active 358345268 Problem Cervicalgia M54.2 Active 245366625 Problem Insomnia G47.00 Active 340072892 Problem Generalized anxiety disorder F41.1 Active [address]79 Problem [address] of the head R93.0 Active 676789316 Problem Low back pain M54.5 Active 306888666 Problem Anxiety F41.9 Active 59859753 Problem Cigarette nicotine dependence, uncomplicated F17.210 Active 86217077 Problem Bilateral headaches R51 Active 185053280 Problem Dorsalgia M54.9 Active 302311612 Problem Chronic pruritus L29.9 Active 675243739 Problem Primary insomnia F51.01 Active 3228241 Problem AIDS B20 Active 21523318 Problem Chronic depression F32.9 Active 190416298 Problem Intertrigo L30.4 Active 58716322 Problem COPD bronchitis J44.9 Active 50089367 Problem Body lice infestation B85.1 Active 66884362 Problem Other chronic pain G89.29 Active 33633071 Problem Migraine, unspecified, not intractable, without status migrainosus G43.909 Active 68275589 Problem Restless leg syndrome G25.81 Active 03101785 Problem Seasonal allergic rhinitis due to pollen J30.1 Active 05019779 Problem Slow transit constipation K59.01 Active 49336736 Problem Dermatitis L30.9 Active 48008028 Problem Primary hypothyroidism E03.9 Active 33329609 Problem Migraine with aura and without status migrainosus, not intractable G43.109 Active 0949500 Problem Constipation by delayed colonic transit K59.01 Active 50458046 ALLERGIES Unknown Allergies SOCIAL HISTORY No smoking Hx information available PLAN OF CARE VITAL SIGNS MEDICATIONS Medication Instructions Dosage Frequency Start Date End Date Duration Status Fluconazole 200 Orally Once a day 1 tablet 24h 2 Active Linzess 145 MCG Orally Once a day 1 capsule 24h Apr, 30 day(s) Active Chantix Starting Month Ed 0.5 MG X 11 & 1 MG X 42 Orally 0.5 mg po daily x 3 days then 0.5 mg bid x 4, then 1 mg BID as directed Sep, 30 days Active Omeprazole 40 MG Orally Once a day 1 capsule 24h Aug, 30 day(s ) Active Temazepam 30 MG Orally Once a day 1 capsule at bedtime as needed 24h May 30 days Active Diclofenac Potassium 50 MG Orally Twice a day 1 tablet 12h Oct, 30 day(s) Active Stiolto Respimat 2.5-2.5 MCG/ACT Inhalation Once a day 2 puffs 24h Sep, 30 days Active Permethrin 5 % Externally Once a day 1 application to affected area 24h Oct, 7 day(s) Active Ferrous Sulfate 325 (65 Fe) MG Orally Once a day 1 tablet 24h Oct, 90 days Active Fluconazole 200 MG Orally Once a day 1 tablet 24h Sep, 2 days Active Remeron 15 MG Orally Once a day 1 tab at bedtime 24h 30 days Active Levothyroxine Sodium 50 MCG Orally Once a day 1 tablet on an empty stomach in the morning 24h Jun, 30 day(s) Active Ketoconazole 2 % Externally Once a day as directed 24h May, 30 days Active Strattera 25 MG Orally Once a day 1 capsule 24h Active Fluocinonide Emulsified Base 0.05 % Externally [...] as needed 6h Nov, 30 days Active Simethicone 180 MG Orally Four times a day 1 capsule as needed 6h Jan, 10 days Active Trokendi XR 100 MG Orally Once a day 1 capsule 24h Sep, 30 day( s) Active Descovy 200-25 mg Orally Once a day 1 tablet 24h May, 30 days Active Ivermectin 3 MG Orally Once a day as directed 24h Oct, 1 dose Active Celexa 40 MG Orally Once a day 1 tablet 24h 15 Nov, 2015 30 day(s) Active Evotaz 300/150 mg Oral once a day 1 tab 24h Aug, 30 days Active Permethrin 5 % Externally apply head to toe; leave on 8-12h then wash off with water, may reapply in 1 week as directed Oct, 1 dose Active Ropinirole HCl 0.5 MG Orally once a day 1 tab at bedtime 24h 30 days Active [place] 7.5-325 MG Orally Two times daily 1 tablet as needed Oct, 10 days Active Doxepin HCl 50 TAKE ONE CAPSULE BY MOUTH EVERY NIGHT AT BEDTIME 90 Active RESULTS No Results PROCEDURES No Known procedures IMMUNIZATIONS No Known Immunizations
--- OUTSIDE RECORDS SUMMARY | 2016-12-18 12:19 | XMS REPORT ---
Author Author ELIF NULL Organization [facility] Address [address] [place] [address] Care Team Providers Care Shoe Coverer Name Role Phone ELIF NULL Unavailable PROBLEMS Type Condition ICD9-CM Code LGN15-VN Code Onset Dates Condition Status SNOMED Code Problem Left hip pain M25.552 Active 52859940 Problem Family history of diabetes mellitus Z83.3 Active 825650127 Problem Tobacco abuse Z72.0 Active 295014626 Problem Constipation, unspecified constipation type K59.00 Active 53016507 Problem History of AR (myocardial infarction) I25.2 Active 087613074 Problem Restless legs syndrome G25.81 Active 78887490 Problem Tobacco abuse counseling Z71.6 Active 427307747 Problem Routine health maintenance Z00.00 Active 235110396 Problem Generalized headaches R51 Active 056861103 Problem History of gastric bypass Z98.890 Active 325103080 Problem HIV antibody positive Z21 Active 146557474 Problem 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 Unknown Non Drug Allergy Mar, Unknown SOCIAL HISTORY No smoking Hx information available PLAN OF CARE Activity Details Follow Up prn Reason: VITAL SIGNS Height 64 in 2016-04-02 Weight 165.4 lbs 2016-04-02 Temperature 97.2 degrees Fahrenheit 2016-04-02 Heart Rate 76 bpm 2016-04-02 Respiratory Rate 18 2016-04-02 BMI 28.39 kg/m2 2016-04-02 Blood pressure systolic 116 mmHg 2016-04-02 Blood pressure diastolic 66 mmHg 2016-04-02 MEDICATIONS Medication Instructions Dosage Frequency Start Date End Date Duration Status Celexa 20 MG Orally Once a day 1 tablet 24h Active Omeprazole 20 MG Orally Once a day 2 capsules 24h Active Strattera 80 MG Active MiraLax 17 gm/dose Orally Once a day 17 grams mixed in 8 oz of water or juice 24h Mar, Jun, 30 days Active Truvada 200-300 MG Orally Once a day 1 tablet 24h Active Amitriptyline HCl 10 MG Orally Once a day 1 tablet 24h Active Evotaz 300-150 MG Orally Once a day 1 tablet with food 24h Active Requip 0.5 MG Orally Once a day take one tablet 30-60 minutes prior to sleep 24h Feb, Active Topamax 25 MG Orally Once a day 1 tablet daily at bedtime 24h Feb, Active RESULTS Name Result Date Reference Range Xray : KUB (IN HOUSE) 2016-04-02 PROCEDURES Procedure Date Ordered Related Diagnosis Body Site X-RAY EXAM OF ABDOMEN Apr 02, 2016 [facility] VISIT ESTABLISHED PATIENT Apr 02, 2016 Office Visit, Est Pt., Level 3 Apr 02, 2016 IMMUNIZATIONS No Known Immunizations
--- OUTSIDE RECORDS SUMMARY | 2016-12-18 12:19 | XMS REPORT ---
Author Author Carmela Whitmore Organization [employer] Address Unknown Phone Unavailable Care Team Providers Care Fast Foods Worker Name Role Phone Carmela Whitmore CP Unavailable [...] GERD (gastroesophageal reflux disease) K21.9 Active Problem USP prescription opiate use Z79.899 Active Problem Cervicalgia M54.2 Active Medications No Known Medications Results No Known Results Summary Purpose [employer] Submission
--- OUTSIDE RECORDS SUMMARY | 2016-12-18 12:19 | XMS REPORT ---
Author Author Carmela Whitmore [facility] [employer] Address Unknown Phone Unavailable Care Team Providers Care Finance Consultant Name Role Phone Carmela Whitmore Unavailable Allergies No Known Allergies Problems Problem Type Condition ICD-9 Code Onset Dates Condition Status Problem Cervicalgia 723.1 Inactive Problem Unspecified disorder of the teeth and supporting structures 525.9 Inactive Problem Pain in joint, forearm 719.43 Inactive Problem Symptomatic menopausal or female climacteric states 627.2 Inactive Problem Wjhzauzclf-yrkposd-bdpqlcyzy, combined [DTP] [DtaP] V06.1 Inactive Problem Need [...] vaccination and inoculation, Influenza V04.81 Inactive Problem acetylene burner (current) use of 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 V58.69 Inactive Problem Abdominal pain, epigastric 789.06 Inactive Medications No Known Medications Results No Known Results Summary Purpose [employer]Clinical[employer] Submission
--- OUTSIDE RECORDS SUMMARY | 2016-12-18 12:19 | XMS REPORT ---
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 Active 80369973 Problem Constipation by delayed colonic transit K59.01 Active 69909369 Problem Migraine with aura and without status migrainosus, not intractable G43.109 Active 6700770 Problem Slow transit constipation K59.01 Active 63810419 Problem Seasonal allergic rhinitis due to pollen J30.1 Active 78741352 Problem Restless leg syndrome G25.81 Active 51839114 Problem Migraine, unspecified, not intractable, without status migrainosus G43.909 Active 07106896 Problem senior living prescription opiate use Z79.899 Active 664684471 Problem Cervicalgia M54.2 Active 180088737 Problem Generalized anxiety disorder F41.1 Active 45211566 Problem GERD (gastroesophageal reflux disease) K21.9 Active 438858575 Problem Low back pain M54.5 Active 447900684 ALLERGIES Unknown Allergies SOCIAL HISTORY No smoking Hx information available PLAN OF CARE VITAL SIGNS MEDICATIONS Unknown Medications RESULTS No Results PROCEDURES No Known procedures IMMUNIZATIONS No Known Immunizations
--- OUTSIDE RECORDS SUMMARY | 2016-12-18 12:19 | XMS REPORT ---
Author Author Alessia Erickson [facility] Address [address] [place], [place] [id number] Care Team Providers Care Self Storage Manager Name Role Phone Alessia Erickson Unavailable PROBLEMS Type Condition ICD9-CM Code OED04-ZQ Code Onset Dates Condition Status SNOMED Code Problem GERD (gastroesophageal reflux disease) K21.9 Active 990945995 Problem intermodal dispatcher prescription opiate use Z79.899 Active 350295703 Problem Primary hypothyroidism E03.9 Active 35985982 Problem Cervicalgia M54.2 Active 542074894 Problem Insomnia G47.00 Active 833677394 Problem Generalized anxiety disorder F41.1 Active 7107[address]25 [address] of the head R93.0 Active 206130969 Problem Bilateral headaches R51 Active 081148660 Problem Anxiety F41.9 Active 46053565 Problem Chronic pruritus L29.9 Active 196613123 Problem Body lice infestation B85.1 Active 50537836 Problem AIDS B20 Active 95565113 Problem Chronic depression F32.9 Active 196859794 Problem Low back pain M54.5 Active 206196910 Problem COPD bronchitis J44.9 Active 05290491 Problem Cigarette nicotine dependence, uncomplicated F17.210 Active 84268544 Problem Other chronic pain G89.29 Active 35144826 Problem Intertrigo L30.4 Active 88186743 Problem Slow transit constipation K59.01 Active 26097772 Problem Migraine, unspecified, not intractable, without status migrainosus G43.909 Active 51400444 Problem Primary insomnia F51.01 Active 1706539 Problem Seasonal allergic rhinitis due to pollen J30.1 Active 07512876 Problem Constipation by delayed colonic transit K59.01 Active 00999782 Problem Dermatitis L30.9 Active 06586407 Problem Restless leg syndrome G25.81 Active 64810284 Problem Migraine with aura and without status migrainosus, not intractable G43.109 Active 6265497 ALLERGIES Substance Reaction Event Type Date Status N.K.D.A. Unknown Non Drug Allergy Oct, Unknown SOCIAL HISTORY No smoking Hx information available PLAN OF CARE Activity Details Follow Up 3 Months, prn Reason:null Pending Test Urinalysis Automated (UA) without Micro 38291 Pending Test Lyme Disease AB, Total and IgM, w Reflex to Western Blot 03388 Pending Test Vitamin B12 and Folate Pending Test Iron and Total Iron-Binding Capacity (TIBC) 72935 56493 Pending Test Ferritin, Serum 28132 Pending Test Complete Blood Count (CBC) w/ Differential 28714 Pending Test Vitamin B1 (Thiamine), Blood Pending Test Metabolic Panel (14), Comprehensive (CMP) 46176 VITAL SIGNS Height 64.0 in 2016-10-31 Weight 181 lbs 2016-10-31 Temperature 99.4 degrees Fahrenheit 2016-10-31 Heart Rate 75 /min 2016-10-31 Respiratory Rate 17 /min 2016-10-31 Oximetry 98 % 2016-10-31 BMI 31.07 kg/m2 2016-10-31 Blood pressure systolic 118 mm Hg 2016-10-31 Blood pressure diastolic 52 mm Hg 2016-10-31 MEDICATIONS Medication Instructions Dosage Frequency Start Date End Date Duration Status Evotaz 300/150 mg Oral once a day 1 tab 24h Aug, 30 days Active Temazepam 30 MG Orally Once a day 1 capsule at bedtime as needed 24h May 30 days Active Fluocinonide Emulsified Base 0.05 % Externally twice a day as directed 12h Mar, 30 days Active Ketoconazole 2 % Externally Once a day as directed 24h May, 30 days Active HydrOXYzine HCl 25 MG Orally every 8 hrs 1 tablet as needed 8h Oct, 30 day(s) Active Ivermectin 3 MG Orally Once a day as directed 24h Oct, 1 dose Active Alprazolam 0.5 MG Orally 1 daily 1 tablet Sep, Oct, 30 days Active Doxepin HCl 50 TAKE ONE CAPSULE BY MOUTH EVERY NIGHT AT BEDTIME 90 Active [place] 7.5-325 MG Orally Two times daily 1 tablet as needed Oct, 10 days Active Permethrin 5 % Externally Once a day 1 application to affected area 24h Oct, 7 day(s) Active Ropinirole HCl 0.5 MG Orally once a day 1 tab at bedtime 24h 30 days Active Omeprazole 40 MG Orally Once a day 1 capsule 24h Aug, 30 day(s ) Active Fluconazole 200 MG Orally Once a day 1 tablet 24h Sep, 2 days Active Nicotrol 10 MG Inhalation 16 time(s) a day 1 puff as needed Sep, 30 days Active Permethrin 5 % Externally apply head to toe; leave on 8-12h then wash off with water, may reapply in 1 week as directed Oct, 1 dose Active Levothyroxine Sodium 50 MCG Orally Once a day 1 tablet on an empty stomach in the morning 24h Jun, 30 day(s) Active Simethicone 180 MG Orally Four times a day 1 capsule as needed 6h Jan, 10 days Active Strattera 25 MG Orally Once a day 1 capsule 24h Active Stiolto Respimat 2.5-2.5 MCG/ACT Inhalation Once a day 2 puffs 24h Sep, 30 days Active Linzess 145 MCG Orally Once a day 1 capsule 24h 10 Apr, 2016 30 day(s) Active Celexa 20 MG Orally Once a day 1 tablet 24h Sep, 30 day(s) Active Descovy 200-25 mg Orally Once a day 1 tablet 24h May, 30 days Active Trokendi XR 100 MG Orally Once a day 1 capsule 24h Sep, 30 day( s) Active Celexa 40 MG Orally Once a day 1 tablet 24h Nov, 30 day(s) Active Ventolin HFA 108 (90 Base) MCG/ACT Inhalation four times a day 2 puffs as needed 6h 30 Nov, 2015 30 days Active Chantix Starting Month Ed 0.5 MG X 11 & 1 MG X 42 Orally 0.5 mg po daily x 3 days then 0.5 mg bid x 4, then 1 mg BID as directed Sep, 30 days Active RESULTS No Results PROCEDURES Procedure Date Ordered Related Diagnosis Body Site Billed by outside source Oct 31, 2016 URINALYSIS, AUTO, W/O SCOPE I[facility] Oct 31, 2016 Office Visit, Est Pt., Level 3 Oct 31, 2016 IMMUNIZATIONS No Known Immunizations
--- OUTSIDE RECORDS SUMMARY | 2016-12-18 12:19 | XMS REPORT ---
Author Author Carmela Whitmore [facility] [employer]ClinicalWorks Address Unknown Phone Unavailable Care Team Providers Care Wealth Management Consultant Name Role Phone Carmela Whitmore CP Unavailable Allergies, Adverse Reactions, Alerts Substance Reaction Event Type N.K.D.A. Info Not Available Non Drug Allergy Problems Problem Type Condition ICD-9 Code Onset Dates Condition Status Problem Generalized anxiety disorder 300.02 Active Problem Nondependent tobacco use disorder 305.1 Active Problem Cervicalgia 723.1 Active Problem GERD (gastroesophageal reflux disease) 530.81 Active Problem Colitis 558.9 Active Problem Acquired immune deficiency syndrome 042 Active Problem intermediate (current) use of 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 V58.69 Active Problem Lumbago 724.2 Active Problem Depressive disorder, not elsewhere classified 311 Active Problem Abdominal pain, unspecified site 789.00 Active Assessment Nondependent tobacco use disorder 305.1 Active Assessment Diarrhea 787.91 Active Assessment Acquired immune deficiency syndrome 042 Active Assessment Insomnia 780.52 Active Problem Morbid obesity 278.01 Active Assessment Depressive disorder, not elsewhere classified 311 Active Problem Unspecified sinusitis (chronic) 473.9 Active Medications Medication Code System Code Instructions Start Date End Date Status Dosage Omeprazole [facility] [address]-20 40 MG Orally Once a day August 15, [address] [facility] [address]-60 50 MG Oral QHS Oct 27, [address] [facility] [address]-99 50 MG Orally three times daily October 14, 2014 1-[address] [facility] [address]18[address]-49 300/150 mg Oral Daily August 15, [address] [facility] [address]-14 200-300 MG Oral 1 (one) daily July 26, [address] [facility] [address]-04 20 MG Orally Once a day Oct 18, [address] [facility] [address]-73 30 MG Orally Once a day Mar 14, 2014 1 capsule at bedtime as needed Lomotil [facility] [address]-73 2.5-0.025 MG Orally Four times a day Oct 18, 2014 1-2 tablet as needed Procedures Procedure Coding System Code Date Office Visit, Est Pt., Level 3 CPT-4 99887 Oct 18, 2014 Insurance Underwriter Sales 3-10 Min in ASX Smoker CPT-4 G0436 Oct 18, 2014 Billed by outside source CPT-4 NOBLL Oct 18, 2014 Vital Signs Date/Time: Oct 18, 2014 Temperature 97.9 F Weight 160 lbs Height 64.5 in Respiratory Rate 16 /min Cardiac Monitoring Heart Rate 60 /min Blood Pressure Diastolic 48 mm Hg Blood Pressure Systolic 93 mm Hg BMI 27.04 Index Oximetry 98 % Results No Known Results Summary Purpose eClinicalWorks Submission
--- OUTSIDE RECORDS SUMMARY | 2016-12-18 12:19 | XMS REPORT ---
Author Author Carmela Whitmore [facility] Address [address], [place] [id number] Care Team Providers Care Solid State Tester Name Role Phone Carmela Whitmore Unavailable PROBLEMS Type Condition ICD9-CM Code CAV19-IV Code Onset Dates Condition Status SNOMED Code Problem Primary insomnia F51.01 well-controlled 6590429 Problem Slow transit constipation K59.01 Active 83567774 Problem Seasonal allergic rhinitis due to pollen J30.1 Active 79728147 Problem Primary hypothyroidism E03.9 Active 44663518 Problem Dermatitis L30.9 Active 30229854 Problem Restless leg syndrome G25.81 Active 38599410 Problem Migraine, unspecified, not intractable, without status migrainosus G43.909 Active 02688203 Problem Constipation by delayed colonic transit K59.01 Active 61891466 Problem Migraine with aura and without status migrainosus, not intractable G43.109 Active 5227738 Problem GERD (gastroesophageal reflux disease) K21.9 Active 954872545 Problem Generalized anxiety disorder F41.1 Active 26346508 Problem Low back pain M54.5 Active 426000372 Problem [facility]PC prescription opiate use Z79.899 Active 843757396 Problem Chronic depression F32.9 Active 457719880 Problem Cervicalgia M54.2 Active 109738529 Problem AIDS B20 Active 63523184 ALLERGIES Unknown Allergies SOCIAL HISTORY No smoking Hx information available PLAN OF CARE VITAL SIGNS MEDICATIONS Unknown Medications RESULTS No Results PROCEDURES No Known procedures IMMUNIZATIONS No Known Immunizations
--- OUTSIDE RECORDS SUMMARY | 2016-12-18 12:20 | XMS REPORT ---
Author Author Carmela Whitmore Organization [employer] Address Unknown Phone Unavailable Care Team Providers Care Plateman Name Role Phone Carmela Whitmore CP Unavailable [...] Active Problem Abnormal urinalysis R82.90 Active Assessment AIDS B20 Active Problem GERD (gastroesophageal reflux disease) K21.9 Active Problem manager long term care prescription opiate use Z79.899 Active Problem Cervicalgia M54.2 Active Medications No Known Medications Results No Known Results Summary Purpose [employer]ClinicalWorks Submission
--- OUTSIDE RECORDS SUMMARY | 2016-12-18 12:20 | XMS REPORT ---
Author Author Carmela Whitmore Organization [employer] Address Unknown Phone Unavailable Care Team Providers Care Laboratory Technician Name Role Phone Carmela Whitmore CP Unavailable Allergies No Known Allergies Problems Problem Type Condition Code Onset Dates Condition Status Problem GERD (gastroesophageal reflux disease) K21.9 Active Problem Cervicalgia M54.2 Active Problem prison prescription opiate use Z79.899 Active Problem Abnormal urinalysis R82.90 Active Problem AIDS B20 Active Problem Urinary tract infection, site not specified N39.0 Active Problem Smoking F17.200 Active Problem Generalized anxiety disorder F41.1 Active Problem Chronic depression F32.9 Active Problem Low back pain M54.5 Active Medications No Known Medications Results No Known Results Summary Purpose [employer]ClinicalWorks Submission
--- OUTSIDE RECORDS SUMMARY | 2016-12-18 12:20 | XMS REPORT ---
Author Author Alessia Erickson [facility] Address [address], [place] [id number] Care Team Providers Care Side Show Entertainer Name Role Phone Alessia Erickson Unavailable PROBLEMS Type Condition ICD9-CM Code SLD31-IF Code Onset Dates Condition Status SNOMED Code Problem Chronic depression F32.9 Active 683411285 Problem Primary insomnia F51.01 well-controlled 6402913 Problem AIDS B20 Active 02823970 Problem Constipation by delayed colonic transit K59.01 Active 43186527 Problem Migraine with aura and without status migrainosus, not intractable G43.109 Active 6606384 Problem Slow transit constipation K59.01 Active 55918870 Problem Seasonal allergic rhinitis due to pollen J30.1 Active 05971448 Problem Restless leg syndrome G25.81 Active 96672459 Problem Migraine, unspecified, not intractable, without status migrainosus G43.909 Active 80136596 Problem termite helper prescription opiate use Z79.899 Active 568282194 Problem Cervicalgia M54.2 Active 381315348 Problem Generalized anxiety disorder F41.1 Active 28594947 Problem GERD (gastroesophageal reflux disease) K21.9 Active 033080886 Problem Low back pain M54.5 Active 940809236 ALLERGIES Unknown Allergies SOCIAL HISTORY No smoking Hx information available PLAN OF CARE VITAL SIGNS MEDICATIONS Unknown Medications RESULTS No Results PROCEDURES No Known procedures IMMUNIZATIONS No Known Immunizations
--- OUTSIDE RECORDS SUMMARY | 2016-12-18 12:20 | XMS REPORT ---
Author Author Huang Arias [facility] [employer] Address Unknown Phone Unavailable Care Team Providers Care Department Helper Name Role Phone Huang Arias CP Unavailable Allergies, Adverse Reactions, Alerts Substance Reaction Event Type N.K.D.A. Info Not Available Non Drug Allergy Problems Problem Type Condition ICD-9 Code Onset Dates Condition Status Problem Generalized anxiety disorder 300.02 Active Problem Nondependent tobacco use disorder 305.1 Active Problem Cervicalgia 723.1 Active Problem GERD (gastroesophageal reflux disease) 530.81 Active Problem Colitis 558.9 Active Problem Acquired immune deficiency syndrome 042 Active Problem long-term (current) use of 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 V58.69 Active Problem Lumbago 724.2 Active Problem Depressive disorder, not elsewhere classified 311 Active Problem Abdominal pain, unspecified site 789.00 Active Assessment Colitis 558.9 Active Assessment UTI (lower urinary tract infection) 599.0 Active Problem Morbid obesity 278.01 Active Assessment Small intestinal bacterial overgrowth 569.89 Active Problem Unspecified sinusitis (chronic) 473.9 Active Medications Medication Code System Code Instructions Start Date End Date Status Dosage Omeprazole [facility] [address]-72 40 MG Orally Once a day August 15, 2014 1 capsule Truvada [facility] [address]-10 200-300 MG Oral 1 (one) daily July 26, 2013 1 tablet Evotaz [facility] 0955-7258-89 300/150 mg Oral Daily August 15, 2014 1 Rifaximin [facility] [address]-63 200 MG Orally Three times a day October 14, 2014 2 tablet Temazepam [facility] [address]-36 15 MG Orally Once a day Mar 14, 2014 1 capsule at bedtime as needed HydrOXYzine HCl [facility] [address]-79 50 MG Oral QHS Oct 27, 2013 1 Bentyl [facility] 25263019967 20 Orally Four times a day 1 tablet Procedures Procedure Coding System Code Date Office Visit, Est Pt., Level 3 CPT-4 93157 October 14, 2014 Vital Signs Date/Time: October 14, 2014 Blood Pressure Systolic 116 mm Hg Weight 159 lbs Height 64.5 in BMI 26.87 Index Respiratory Rate 16 /min Cardiac Monitoring Heart Rate 80 /min Blood Pressure Diastolic 72 mm Hg Results No Known Results Summary Purpose eClinicalWorks Submission
--- OUTSIDE RECORDS SUMMARY | 2016-12-18 12:20 | XMS REPORT ---
Author Author Alessia Erickson [facility] Address [address], [place] [id number] Care Team Providers Care Student Life Coordinator Name Role Phone Alessia Erickson Unavailable PROBLEMS Type Condition ICD9-CM Code WIJ48-GD Code Onset Dates Condition Status SNOMED Code Problem GERD (gastroesophageal reflux disease) K21.9 Active 121172830 Problem assisted prescription opiate use Z79.899 Active 762808682 Problem Primary hypothyroidism E03.9 Active 06169486 Problem Cervicalgia M54.2 Active 168155914 Problem Insomnia G47.00 Active 095515841 Problem Generalized anxiety disorder F41.1 Active 430[address]353 Problem Ab[address] CT of the head R93.0 Active 500860235 Problem Bilateral headaches R51 Active 983427298 Problem Anxiety F41.9 Active 49192041 Problem Chronic pruritus L29.9 Active 873342707 Problem Body lice infestation B85.1 Active 29230990 Problem AIDS B20 Active 49222351 Problem Chronic depression F32.9 Active 612011984 Problem Low back pain M54.5 Active 783799329 Problem COPD bronchitis J44.9 Active 91979913 Problem Cigarette nicotine dependence, uncomplicated F17.210 Active 01085159 Problem Other chronic pain G89.29 Active 76702150 Problem Intertrigo L30.4 Active 37396895 Problem Slow transit constipation K59.01 Active 51863990 Problem Migraine, unspecified, not intractable, without status migrainosus G43.909 Active 58534484 Problem Primary insomnia F51.01 Active 1831705 Problem Seasonal allergic rhinitis due to pollen J30.1 Active 38185832 Problem Constipation by delayed colonic transit K59.01 Active 29535324 Problem Dermatitis L30.9 Active 01286392 Problem Restless leg syndrome G25.81 Active 49792125 Problem Migraine with aura and without status migrainosus, not intractable G43.109 Active 8483127 ALLERGIES Unknown Allergies SOCIAL HISTORY No smoking Hx information available PLAN OF CARE VITAL SIGNS MEDICATIONS Unknown Medications RESULTS No Results PROCEDURES No Known procedures IMMUNIZATIONS No Known Immunizations
--- OUTSIDE RECORDS SUMMARY | 2016-12-18 12:20 | XMS REPORT ---
Author Author Carmela Whitmore [facility] Address [address], [place] [address] Care Team Providers Care Quality Control Tech Raw Materials Name Role Phone Carmela Whitmore Unavailable PROBLEMS Type Condition ICD9-CM Code [id number] Code Onset Dates Condition Status SNOMED Code Problem Chronic depression F32.9 Active 478784038 Problem Primary insomnia F51.01 well-controlled 2831087 Problem AIDS B20 Active 99719804 Problem Constipation by delayed colonic transit K59.01 Active 27637382 Problem Migraine with aura and without status migrainosus, not intractable G43.109 Active 0869685 Problem Slow transit constipation K59.01 Active 61112450 Problem Seasonal allergic rhinitis due to pollen J30.1 Active 79957537 Problem Restless leg syndrome G25.81 Active 74923827 Problem Migraine, unspecified, not intractable, without status migrainosus G43.909 Active 44603379 Problem 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 Z79.899 Active 902738701 Problem Cervicalgia M54.2 Active 959421775 Assessment Acute upper respiratory infection J06.9 May, Active 59863110 Problem Generalized anxiety disorder F41.1 Active 38441983 Problem GERD (gastroesophageal reflux disease) K21.9 Active 971974971 Problem Low back pain M54.5 Active 524519943 ALLERGIES Unknown Allergies SOCIAL HISTORY No smoking Hx information available PLAN OF CARE VITAL SIGNS MEDICATIONS Medication Instructions Dosage Frequency Start Date End Date Duration Status Ventolin HFA 108 (90 Base) MCG/ACT Inhalation four times a day 2 puffs as needed 6h Nov, 30 days Active Baclofen 10 MG Orally Three times a day 1 tablet with food or milk 8h Mar, 10 days Active Permethrin 5 % Externally apply head to toe; leave on 8-12h then wash off with water, may reapply in 1 week as directed Apr, 1 dose Active Simethicone 180 MG Orally Four times a day 1 capsule as needed 6h 29 Jan, 2016 10 days Active Celexa 40 MG Orally Once a day 1 tablet 24h 15 Nov, 2015 30 day(s) Active HydrOXYzine HCl 25 MG Orally every 8 hrs 1 tablet as needed 8h Apr, 30 day(s) Active Omeprazole 40 MG Orally Once a day 1 capsule 24h Aug, 30 day(s ) Active Nystatin 612434 UNIT/ML Mouth/Throat QID 5 mls swish and swallow 6h Apr 10 days Active Imitrex 25 MG Orally 1 tab x1 with onset of migraine may repeat with 1 tab in 2h as directed Apr, 30 days Active Ropinirole HCl 0.5 MG Orally once a day 1 tab at bedtime 24h 30 days Active Linzess 145 MCG Orally Once a day 1 capsule 24h 10 Apr, 2016 30 day(s) Active Fluocinonide Emulsified Base 0.05 % Externally twice a day as directed 12h Mar, 30 days Active Evotaz 300/150 mg Oral once a day 1 tab 24h Aug, 30 days Active Permethrin 5 % Externally apply head to toe; leave on 8-12h then wash off with water, may repeat daily for 5 days then stop as directed 05 days Active Colace 100 MG Orally twice a day 1 capsule as needed 12h Feb, 30 day(s) Active Strattera 25 MG Orally Once a day 1 capsule 24h Active Nortriptyline HCl 25 MG Orally Once a day 1 capsule 24h Apr, 30 day(s) Active Zithromax Z-Ed 250 MG Orally Once a day 2 tablets on the first day, then 1 tablet daily for 4 days 24h May, May, 5 day(s) Active Truvada 200-300 MG Orally Once a day 1 tablet 24h 30 days Active Baclofen 10 TAKE ONE TABLET BY MOUTH THREE TIMES A DAY WITH FOOD 10 Active RESULTS No Results PROCEDURES No Known procedures IMMUNIZATIONS No Known Immunizations
--- OUTSIDE RECORDS SUMMARY | 2016-12-18 12:20 | XMS REPORT ---
Author Author Carmela Whitmore [facility] Address [address], [place] [address] Care Team Providers Care Manager Home Improvement Name Role Phone Carmela Whitmore Unavailable PROBLEMS Type Condition ICD9-CM Code EJD60-CG Code Onset Dates Condition Status SNOMED Code Problem Chronic depression F32.9 Active 459517541 Problem Primary insomnia F51.01 well-controlled 4305463 Problem AIDS B20 Active 57884057 Problem Constipation by delayed colonic transit K59.01 Active 94208353 Problem Migraine with aura and without status migrainosus, not intractable G43.109 Active 5242874 Problem Slow transit constipation K59.01 Active 09438154 Problem Seasonal allergic rhinitis due to pollen J30.1 Active 11467478 Problem Restless leg syndrome G25.81 Active 12255844 Problem Migraine, unspecified, not intractable, without status migrainosus G43.909 Active 79906834 Assessment Vertigo R42 May, Active 073300543 Problem terminal worker prescription opiate use Z79.899 Active 363174427 Problem Cervicalgia M54.2 Active 632757636 Assessment Chronic depression F32.9 May, Active 180916371 Problem Generalized anxiety disorder F41.1 Active 27742188 Problem GERD (gastroesophageal reflux disease) K21.9 Active 683118583 Problem Low back pain M54.5 Active 391395855 ALLERGIES Unknown Allergies SOCIAL HISTORY No smoking Hx information available PLAN OF CARE VITAL SIGNS MEDICATIONS Medication Instructions Dosage Frequency Start Date End Date Duration Status Meclizine HCl 25 MG Orally Once a day 1 tablet as needed 24h May, 30 day(s) Active Celexa 40 MG Orally Once a day 1 tablet 24h Nov, 30 day(s) Active RESULTS No Results PROCEDURES No Known procedures IMMUNIZATIONS No Known Immunizations
--- OUTSIDE RECORDS SUMMARY | 2016-12-18 12:20 | XMS REPORT ---
Author Author Alessia Erickson [facility] Address [address] [place], [place] [address] Care Team Providers Care Elementary School Librarian Name Role Phone Alessia Erickson Unavailable PROBLEMS Type Condition ICD9-CM Code IJC98-NT Code Onset Dates Condition Status SNOMED Code Problem GERD (gastroesophageal reflux disease) K21.9 Active 443843106 Problem skilled nursing prescription opiate use Z79.899 Active 401894373 Problem Cervicalgia M54.2 Active 132384114 Problem Insomnia G47.00 Active 656370153 Problem Generalized anxiety disorder F41.1 Active 74769272 Problem Ab[address] CT of the head R93.0 Active 105430441 Problem Low back pain M54.5 Active 687684651 Problem Anxiety F41.9 Active 91361374 Problem Cigarette nicotine dependence, uncomplicated F17.210 Active 32979037 Problem Bilateral headaches R51 Active 631099288 Problem Dorsalgia M54.9 Active 194838186 Problem Chronic pruritus L29.9 Active 640270335 Problem Primary insomnia F51.01 Active 4395888 Problem AIDS B20 Active 24923032 Problem Chronic depression F32.9 Active 134835818 Problem Intertrigo L30.4 Active 90098814 Problem COPD bronchitis J44.9 Active 24094623 Problem Body lice infestation B85.1 Active 22857657 Problem Other chronic pain G89.29 Active 42824136 Problem Migraine, unspecified, not intractable, without status migrainosus G43.909 Active 64963008 Problem Restless leg syndrome G25.81 Active 77421146 Problem Seasonal allergic rhinitis due to pollen J30.1 Active 57331043 Problem Slow transit constipation K59.01 Active 69242806 Problem Dermatitis L30.9 Active 54956287 Problem Primary hypothyroidism E03.9 Active 94069141 Problem Migraine with aura and without status migrainosus, not intractable G43.109 Active 3778097 Problem Constipation by delayed colonic transit K59.01 Active 95776290 ALLERGIES Unknown Allergies SOCIAL HISTORY No smoking Hx information available PLAN OF CARE VITAL SIGNS MEDICATIONS Unknown Medications RESULTS No Results PROCEDURES No Known procedures IMMUNIZATIONS No Known Immunizations
--- OUTSIDE RECORDS SUMMARY | 2016-12-18 12:20 | XMS REPORT ---
Author Author Carmela Whitmore [facility] Address [address] [place], [place] [address] Care Team Providers Care Crayon Sorting Machine Feeder Name Role Phone Carmela Whitmore Unavailable PROBLEMS Type Condition ICD9-CM Code HNE07-ZI Code Onset Dates Condition Status SNOMED Code Problem Slow transit constipation K59.01 Active 60153248 Problem Restless leg syndrome G25.81 Active 07293165 Problem Migraine, unspecified, not intractable, without status migrainosus G43.909 Active 04425189 Problem Abnormal CT of the head R93.0 Active 153867691 Problem Insomnia G47.00 Active 597805045 Problem Constipation by delayed colonic transit K59.01 Active 72276833 Problem Migraine with aura and without status migrainosus, not intractable G43.109 Active 8403659 Problem Primary hypothyroidism E03.9 Active 16990201 Problem Dermatitis L30.9 Active 08196700 Problem snf prescription opiate use Z79.899 Active 265862351 Problem Cervicalgia M54.2 Active 103607642 Problem GERD (gastroesophageal reflux disease) K21.9 Active 142039731 Problem Chronic depression F32.9 Active 080683334 Problem AIDS B20 Active 28881305 Problem Generalized anxiety disorder F41.1 Active 92139420 Problem Primary insomnia F51.01 Active 2875096 Problem Low back pain M54.5 Active 951532918 Problem Seasonal allergic rhinitis due to pollen J30.1 Active 49370488 ALLERGIES Unknown Allergies SOCIAL HISTORY No smoking Hx information available PLAN OF CARE VITAL SIGNS MEDICATIONS Unknown Medications RESULTS No Results PROCEDURES No Known procedures IMMUNIZATIONS No Known Immunizations
--- OUTSIDE RECORDS SUMMARY | 2016-12-18 12:20 | XMS REPORT ---
Author Author Carmela Whitmore Organization [employer] Address Unknown Phone Unavailable Care Team Providers Care Dealer Development Manager Name Role Phone Carmela Whitmore CP Unavailable Allergies No Known Allergies Problems Problem Type Condition Code Onset Dates Condition Status Problem skilled nursing prescription opiate use Z79.899 [...]
--- OUTSIDE RECORDS SUMMARY | 2016-12-18 12:21 | XMS REPORT ---
Author Author Carmela Whitmore [facility] Address [address] [place], [place] [address] Care Team Providers Care Sales Correspondent Name Role Phone Carmela Whitmore Unavailable PROBLEMS Type Condition ICD9-CM Code CHQ31-VC Code Onset Dates Condition Status SNOMED Code Problem Seasonal allergic rhinitis due to pollen J30.1 Active 97567730 Problem Migraine, unspecified, not intractable, without status migrainosus G43.909 Active 69317113 Problem Slow transit constipation K59.01 Active 86062396 Problem Insomnia G47.00 Active 543449829 Problem Primary hypothyroidism E03.9 Active 82576220 Problem Migraine with aura and without status migrainosus, not intractable G43.109 Active 7148945 Problem Restless leg syndrome G25.81 Active 79181201 Problem Dermatitis L30.9 Active 38776749 Problem Constipation by delayed colonic transit K59.01 Active 30334301 Problem GERD (gastroesophageal reflux disease) K21.9 Active 615071150 Problem halfway prescription opiate use Z79.899 Active 118913063 Problem Low back pain M54.5 Active 881378763 Problem Chronic depression F32.9 Active 842081493 Problem Cervicalgia M54.2 Active 609963237 Problem AIDS B20 Active 79115053 Problem Generalized anxiety disorder F41.1 Active 23642863 Problem Primary insomnia F51.01 Active 8304844 ALLERGIES Unknown Allergies SOCIAL HISTORY No smoking Hx information available PLAN OF CARE VITAL SIGNS MEDICATIONS Unknown Medications RESULTS No Results PROCEDURES No Known procedures IMMUNIZATIONS No Known Immunizations
--- OUTSIDE RECORDS SUMMARY | 2016-12-18 12:21 | XMS REPORT ---
Author Author Alessia Erickson [facility] Address [address] [place], [place] [address] Care Team Providers Care Banking Paralegal Name Role Phone Alessia Erickson Unavailable PROBLEMS Type Condition ICD9-CM Code UMN67-MO Code Onset Dates Condition Status SNOMED Code Problem GERD (gastroesophageal reflux disease) K21.9 Active 605862202 Problem retirement prescription opiate use Z79.899 Active 445153620 Problem Cervicalgia M54.2 Active 844356276 Problem Insomnia G47.00 Active 742510759 Problem Generalized anxiety disorder F41.1 Active [address]91 Problem Ab[address] CT of the head R93.0 Active 064056579 Problem Low back pain M54.5 Active 735780714 Problem Anxiety F41.9 Active 24801198 Problem Cigarette nicotine dependence, uncomplicated F17.210 Active 60424856 Problem Bilateral headaches R51 Active 559240241 Problem Dorsalgia M54.9 Active 031613428 Problem Chronic pruritus L29.9 Active 485062364 Problem Primary insomnia F51.01 Active 4478778 Problem AIDS B20 Active 41260042 Problem Chronic depression F32.9 Active 108901423 Problem Intertrigo L30.4 Active 16623875 Problem COPD bronchitis J44.9 Active 31056115 Problem Body lice infestation B85.1 Active 39034073 Problem Other chronic pain G89.29 Active 44597182 Problem Migraine, unspecified, not intractable, without status migrainosus G43.909 Active 79527313 Problem Restless leg syndrome G25.81 Active 49991601 Problem Seasonal allergic rhinitis due to pollen J30.1 Active 53178768 Problem Slow transit constipation K59.01 Active 27660269 Problem Dermatitis L30.9 Active 02742179 Problem Primary hypothyroidism E03.9 Active 28829768 Problem Migraine with aura and without status migrainosus, not intractable G43.109 Active 1793668 Problem Constipation by delayed colonic transit K59.01 Active 92387150 ALLERGIES Unknown Allergies SOCIAL HISTORY No smoking Hx information available PLAN OF CARE VITAL SIGNS MEDICATIONS Unknown Medications RESULTS No Results PROCEDURES No Known procedures IMMUNIZATIONS No Known Immunizations
--- OUTSIDE RECORDS SUMMARY | 2016-12-18 12:21 | XMS REPORT ---
Author Author Carmela Whitmore Organization [employer] Address Unknown Phone Unavailable Care Team Providers Care Gate Keeper Name Role Phone Carmela Whitmore CP Unavailable Allergies No Known Allergies Problems Problem Type Condition Code Onset Dates Condition Status Problem GERD (gastroesophageal reflux disease) K21.9 Active Assessment Low back pain M54.5 Active Problem Chronic depression F32.9 Active Problem Low back pain M54.5 Active Problem AIDS B20 Active Problem Cervicalgia M54.2 Active Problem senior living prescription opiate use Z79.899 Active Problem Smoking F17.200 Active Problem Generalized anxiety disorder F41.1 Active Medications Medication Code System Code Instructions Start Date End Date Status Dosage Diclofenac Sodium [facility] [address]-87 75 MG Orally Twice a day Mar 14, 2015 1 tablet Evotaz [facility] 3915-4782-93 300/150 mg Oral Daily August 15, 2014 1 Omeprazole [facility] [address]-66 40 MG Orally Once a day August 15, 2014 1 capsule Symbicort [facility] [address]-83 160-4.5 MCG/ACT Inhalation Twice a day Mar 06, 2015 2 puffs Strattera [facility] [address]-99 40 MG Orally Once a day Mar 06, 2015 1 capsule in the morning HydrOXYzine HCl [facility] [address]-17 50 MG Oral QHS Oct 27, 2013 1 Truvada [facility] [address]-92 200-300 MG Oral 1 (one) daily July 26, 2013 1 tablet Temazepam [facility] [address]-96 30 MG Orally Once a day Mar 14, 2014 Mar 24, 2015 1 capsule at bedtime as needed Neurontin [facility] [address]-59 100 MG Orally Three times a day Mar 06, 2015 as directed Results No Known Results Summary Purpose eClinicalWorks Submission
--- OUTSIDE RECORDS SUMMARY | 2016-12-18 12:21 | XMS REPORT ---
Author Author Carmela Whitmore [facility] eClinicalWorks Address Unknown Phone Unavailable Care Team Providers Care Crude Oil Treater Name Role Phone Carmela Whitmore Unavailable Allergies No Known Allergies Problems Problem Type Condition Code Onset Dates Condition Status Problem Generalized anxiety disorder 300.02 Active Problem Nondependent tobacco use disorder 305.1 Active Problem Cervicalgia 723.1 Active Problem GERD (gastroesophageal reflux disease) 530.81 Active Problem Colitis 558.9 Active Problem Acquired immune deficiency syndrome 042 Active Problem watermelon inspector (current) use of 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 V58.69 Active Problem Lumbago 724.2 Active Problem Depressive disorder, not elsewhere classified 311 Active Problem Abdominal pain, unspecified site 789.00 Active Assessment Depressive disorder, not elsewhere classified F32.9 Active Problem Morbid obesity 278.01 Active Problem Unspecified sinusitis (chronic) 473.9 Active Medications Medication Code System Code Instructions Start Date End Date Status Dosage Citalopram Hydrobromide [facility] [address]-21 20 MG Orally Once a day Oct 18, 2014 1 tablet Ultram [facility] [address]-84 50 MG TAKE ONE TO TWO TABLETS BY MOUTH THREE TIMES A DAY Tramadol HCl [facility] [address]-33 50 MG Orally three times daily October 14, 2014 1-2 tabs PredniSONE [facility] [address]-72 10 MG Orally Once a day Nov 02, 2014 taper - 8,7,6,5,4,3,2,1 Zithromax Z-Ed [facility] [address]-63 250 MG Orally Once a day Nov 02, 2014 2 tablets on the first day, then 1 tablet daily for 4 days Lomotil [facility] [address]-11 2.5-0.025 MG Orally Four times a day Oct 18, 2014 1-2 tablet as needed Truvada [facility] [address]-03 200-300 MG Oral 1 (one) daily July 26, 2013 1 tablet Omeprazole [facility] [address]-98 40 MG Orally Once a day August 15, 2014 1 capsule Evotaz [facility] [address]-70 300/150 mg Oral Daily August 15, 2014 1 Temazepam [facility] [address]-00 30 MG Orally Once a day Mar 14, 2014 1 capsule at bedtime as needed Zithromax [facility] [address]-23 250 MG Orally Once a day Dec 19, 2014 2 tablets on the first day, then 1 tablet daily for 4 days Permethrin [facility] [address]-59 5 % Externally Leave on hair x 10 min rinse with water. Remove nits with fine-tooth comb. Repeat x 1 wk if lice/nits present Nov 29, 2014 as directed HydrOXYzine HCl [facility] [address]-31 50 MG Oral QHS Oct 27, 2013 1 Results No Known Results Summary Purpose eClinicalWorks Submission
--- OUTSIDE RECORDS SUMMARY | 2016-12-18 12:21 | XMS REPORT ---
Author Author Alessia Erickson [facility] Address [address], [place] [id number] Care Team Providers Care Termite Helper Name Role Phone Alessia Erickson Unavailable PROBLEMS Type Condition ICD9-CM Code [id number] Code Onset Dates Condition Status SNOMED Code Problem GERD (gastroesophageal reflux disease) K21.9 Active 382423991 Problem detention prescription opiate use Z79.899 Active 967173291 Problem Primary hypothyroidism E03.9 Active 10018924 Problem Cervicalgia M54.2 Active 069114542 Problem Insomnia G47.00 Active 282479175 Problem Generalized anxiety disorder F41.1 Active 97422184 Problem Ab[address] CT of the head R93.0 Active 764931336 Problem Bilateral headaches R51 Active 347978449 Problem Anxiety F41.9 Active 22741925 Problem Chronic pruritus L29.9 Active 698651997 Problem Body lice infestation B85.1 Active 02205199 Problem AIDS B20 Active 26305470 Problem Chronic depression F32.9 Active 449603824 Problem Low back pain M54.5 Active 152547113 Problem COPD bronchitis J44.9 Active 50825352 Problem Cigarette nicotine dependence, uncomplicated F17.210 Active 87634750 Problem Other chronic pain G89.29 Active 45364602 Problem Intertrigo L30.4 Active 15745880 Problem Slow transit constipation K59.01 Active 50525517 Problem Migraine, unspecified, not intractable, without status migrainosus G43.909 Active 44908804 Problem Primary insomnia F51.01 Active 5551127 Problem Seasonal allergic rhinitis due to pollen J30.1 Active 49517288 Problem Constipation by delayed colonic transit K59.01 Active 51865636 Problem Dermatitis L30.9 Active 71931599 Problem Restless leg syndrome G25.81 Active 00767791 Problem Migraine with aura and without status migrainosus, not intractable G43.109 Active 3484800 ALLERGIES Unknown Allergies SOCIAL HISTORY No smoking Hx information available PLAN OF CARE VITAL SIGNS MEDICATIONS Unknown Medications RESULTS No Results PROCEDURES No Known procedures IMMUNIZATIONS No Known Immunizations
--- OUTSIDE RECORDS SUMMARY | 2016-12-18 12:21 | XMS REPORT ---
Author Author Alessia Erickson [facility] Address [address], [place] [id number] Care Team Providers Care Addiction Specialist Name Role Phone Alessia Erickson Unavailable PROBLEMS Type Condition ICD9-CM Code [id number] Code Onset Dates Condition Status SNOMED Code Problem GERD (gastroesophageal reflux disease) K21.9 Active 573952651 Problem terminal operations supervisor prescription opiate use Z79.899 Active 199617918 Problem Primary hypothyroidism E03.9 Active 20668620 Problem Cervicalgia M54.2 Active 705262346 Problem Insomnia G47.00 Active 980719975 Problem Generalized anxiety disorder F41.1 Active [address]61 Problem Ab[address] CT of the head R93.0 Active 664906088 Problem Bilateral headaches R51 Active 190017014 Problem Anxiety F41.9 Active 57043768 Problem Chronic pruritus L29.9 Active 641786096 Problem Body lice infestation B85.1 Active 30237797 Problem AIDS B20 Active 97233658 Problem Chronic depression F32.9 Active 772069274 Problem Low back pain M54.5 Active 352869446 Problem COPD bronchitis J44.9 Active 15219957 Problem Cigarette nicotine dependence, uncomplicated F17.210 Active 16266531 Problem Other chronic pain G89.29 Active 81245491 Problem Intertrigo L30.4 Active 73251677 Problem Slow transit constipation K59.01 Active 67282949 Problem Migraine, unspecified, not intractable, without status migrainosus G43.909 Active 15911633 Problem Primary insomnia F51.01 Active 8703351 Problem Seasonal allergic rhinitis due to pollen J30.1 Active 34160652 Problem Constipation by delayed colonic transit K59.01 Active 04338095 Problem Dermatitis L30.9 Active 24631401 Problem Restless leg syndrome G25.81 Active 77391370 Problem Migraine with aura and without status migrainosus, not intractable G43.109 Active 9322943 ALLERGIES Unknown Allergies SOCIAL HISTORY No smoking Hx information available PLAN OF CARE VITAL SIGNS MEDICATIONS Medication Instructions Dosage Frequency Start Date End Date Duration Status Nicotrol 10 MG Inhalation 16 time(s) a day 1 puff as needed Sep, 30 days Active Descovy 200-25 mg Orally Once a day 1 tablet 24h May, 30 days Active Chantix Starting Month Ed 0.5 MG X 11 & 1 MG X 42 Orally 0.5 mg po daily x 3 days then 0.5 mg bid x 4, then 1 mg BID as directed Sep, 30 days Active Ropinirole HCl 0.5 MG Orally once a day 1 tab at bedtime 24h 30 days Active Permethrin 5 % Externally Once a day 1 application to affected area 24h Oct, 7 day(s) Active Evotaz 300/150 mg Oral once a day 1 tab 24h Aug, 30 days Active Trokendi XR 100 MG Orally Once a day 1 capsule 24h Sep, 30 day( s) Active Fluconazole 200 Orally Once a day 1 tablet 24h 2 Active Fluocinonide Emulsified Base 0.05 % Externally twice a day as directed 12h Mar, 30 days Active Strattera 25 MG Orally Once a day 1 capsule 24h Active Fluconazole 200 MG Orally Once a day 1 tablet 24h Sep, 2 days Active HydrOXYzine HCl 25 MG Orally every 8 hrs 1 tablet as needed 8h Oct, 30 day(s) Active Temazepam 30 MG Orally Once a day 1 capsule at bedtime as needed 24h May 30 days Active Ventolin HFA 108 (90 Base) MCG/ACT Inhalation four times a day 2 puffs as needed 6h Nov, 30 days Active Simethicone 180 MG Orally Four times a day 1 capsule as needed 6h Jan, 10 days Active Omeprazole 40 MG Orally Once a day 1 capsule 24h Aug, 30 day(s ) Active Lupton 7.5-325 MG Orally Two times daily 1 tablet as needed Oct, 10 days Active Celexa 40 MG Orally Once a day 1 tablet 24h Nov, 30 day(s) Active Levothyroxine Sodium 50 MCG Orally Once a day 1 tablet on an empty stomach in the morning 24h Jun, 30 day(s) Active Linzess 145 MCG Orally Once a day 1 capsule 24h Apr, 30 day(s) Active Doxepin HCl 50 TAKE ONE CAPSULE BY MOUTH EVERY NIGHT AT BEDTIME 90 Active Permethrin 5 % Externally apply head to toe; leave on 8-12h then wash off with water, may reapply in 1 week as directed Oct, 1 dose Active Ivermectin 3 MG Orally Once a day as directed 24h Oct, 1 dose Active Ketoconazole 2 % Externally Once a day as directed 24h May, 30 days Active Remeron 15 MG Orally Once a day 1 tab at bedtime 24h 30 days Active Celexa 20 MG Orally Once a day 1 tablet 24h Sep, 30 day(s) Active Stiolto Respimat 2.5-2.5 MCG/ACT Inhalation Once a day 2 puffs 24h Sep, 30 days Active Ferrous Sulfate 325 (65 Fe) MG Orally Once a day 1 tablet 24h Oct, 90 days Active RESULTS No Results PROCEDURES No Known procedures IMMUNIZATIONS No Known Immunizations
--- OUTSIDE RECORDS SUMMARY | 2016-12-18 12:21 | XMS REPORT ---
Author Author Carmela Whitmore Organization eClinicalWorks Address Unknown Phone Unavailable Care Team Providers Care Wind Turbine Service Technician Name Role Phone Carmela Whitmore CP [...] immune deficiency syndrome 042 Active Problem terminal supervisor (current) use of 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 V58.69 Active Problem Lumbago 724.2 Active Problem Depressive disorder, not elsewhere classified 311 Active Problem Abdominal pain, unspecified site 789.00 Active Medications No Known Medications Results No Known Results Summary Purpose eClinicalWorks Submission
--- OUTSIDE RECORDS SUMMARY | 2016-12-18 12:21 | XMS REPORT ---
Author Author Awa Prabhakar Organization eClinicalWorks Address Unknown Phone Unavailable Care Team Providers Care Aircraft Machinist Name Role Phone Awa Prabhakar CP Unavailable [...] Acquired immune deficiency syndrome 042 Active Problem rn long term care (current) use of 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 V58.69 Active Problem Lumbago 724.2 Active Problem Depressive disorder, not elsewhere classified 311 Active Problem Abdominal pain, unspecified site 789.00 Active Medications No Known Medications Results No Known Results Summary Purpose eClinicalWorks Submission
--- OUTSIDE RECORDS SUMMARY | 2016-12-18 12:21 | XMS REPORT ---
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
--- OUTSIDE RECORDS SUMMARY | 2016-12-18 12:22 | XMS REPORT ---
Author Carmela Willson [facility] eClinicalWorks Address Unknown Phone Unavailable Care Team Providers Care Wireless Engineer Name Role Phone Carmela Whitmore Unavailable Allergies No Known Allergies Problems Problem Type Condition ICD-9 Code Onset Dates Condition Status Problem Cervicalgia 723.1 Inactive Problem Unspecified disorder of the teeth and supporting structures 525.9 Inactive Problem Pain in joint, forearm 719.43 Inactive Problem Symptomatic menopausal or female climacteric states 627.2 Inactive Problem Tudhjmfjrn-naromil-zdjuylcui, combined [DTP] [DtaP] V06.1 Inactive Assessment Candidiasis of genitalia in female 112.1 Active Problem Need for prophylactic vaccination against streptococcus pneumoniae ( pneumococcus) V03.82 Inactive Assessment Dysuria 788.1 Active Problem Nondependent tobacco use disorder 305.1 [...] vaccination and inoculation, Influenza V04.81 Inactive Problem 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 V58.69 Inactive Problem Abdominal pain, epigastric 789.06 Inactive Medications Medication Code System Code Instructions Start Date End Date Status Dosage HydrOXYzine HCl [facility] [address]-90 50 MG Oral QHS Oct 27, 2013 1 Temazepam [facility] [address]-52 15 MG Orally Once a day Mar 14, 2014 1 capsule at bedtime as needed Topamax [facility] [address]-21 100 MG Orally Once a day-after taper up Apr 28, 2014 1 tablet Ciprofloxacin HCl [facility] [address]-67 500 MG Orally Twice a day May 24, 2014 May 29, 2014 1 tablet Norvir [facility] [address]-79 100 MG Oral 1 (one) daily July 26, 2013 1 capsule with a meal BusPIRone HCl [facility] [address]-22 10 MG Orally TID Dec 03, 2013 1 tablet Clonidine HCl [facility] [address]-37 0.1 MG Orally Once a day Dec 03, 2013 1 tablet Topamax [facility] [address]-59 25 MG Orally 1 tab QHS x 7d, then 2 tabs QHS x 7d , then 3 tabs QHS X 7d then 4 tabs QHS cont. Apr 28, 2014 1 tablet at bedtime Truvada [facility] [address]-47 200-300 MG Oral 1 (one) daily July 26, 2013 1 tablet Fluconazole [facility] [address]-13 100 MG Orally Once a day May 24, 2014 June 03, 2014 1 tablet Pantoprazole Sodium [facility] [address]-48 40 MG Oral 1 (one) Tablet DR daily July 26, 2013 1 tablet Reyataz [facility] [address]-57 300 MG Oral 1 (one) daily July 26, 2013 1 Results No Known Results Summary Purpose eClinicalWorks Submission
--- OUTSIDE RECORDS SUMMARY | 2016-12-18 12:22 | XMS REPORT ---
Author Author Carmela Whitmore [facility] Address [address], [place] [address] Care Team Providers Care Dependency Case Manager Name Role Phone Carmela Whitmore Unavailable PROBLEMS Type Condition ICD9-CM Code [id number] Code Onset Dates Condition Status SNOMED Code Problem Primary insomnia F51.01 well-controlled 7434492 Problem Slow transit constipation K59.01 Active 46381697 Problem Seasonal allergic rhinitis due to pollen J30.1 Active 93090453 Problem Primary hypothyroidism E03.9 Active 53783465 Problem Dermatitis L30.9 Active 13441991 Problem Restless leg syndrome G25.81 Active 27013642 Problem Migraine, unspecified, not intractable, without status migrainosus G43.909 Active 57576915 Problem Constipation by delayed colonic transit K59.01 Active 03884368 Problem Migraine with aura and without status migrainosus, not intractable G43.109 Active 3078014 Assessment Primary hypothyroidism E03.9 Jun, Active 93750347 Problem GERD (gastroesophageal reflux disease) K21.9 Active 689950848 Problem Generalized anxiety disorder F41.1 Active 02845842 Problem Low back pain M54.5 Active 247986765 Problem residential prescription opiate use Z79.899 Active 251303785 Problem Chronic depression F32.9 Active 606347411 Problem Cervicalgia M54.2 Active 625569937 Problem AIDS B20 Active 94124367 ALLERGIES Unknown Allergies SOCIAL HISTORY No smoking Hx information available PLAN OF CARE VITAL SIGNS MEDICATIONS Medication Instructions Dosage Frequency Start Date End Date Duration Status Levothyroxine Sodium 50 MCG Orally Once a day 1 tablet on an empty stomach in the morning 24h Jun, 30 day(s) Active RESULTS No Results PROCEDURES No Known procedures IMMUNIZATIONS No Known Immunizations
--- OUTSIDE RECORDS SUMMARY | 2016-12-18 12:22 | XMS REPORT ---
Author Author Carmela Whitmore Organization eClinicalWorks Address Unknown Phone Unavailable Care Team Providers Care Television Camera Operator Name Role Phone Carmela Whitmore CP Unavailable [...] Acquired immune deficiency syndrome 042 Active Problem prison (current) use of 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 V58.69 Active Problem Lumbago 724.2 Active Problem Depressive disorder, not elsewhere classified 311 Active Problem Abdominal pain, unspecified site 789.00 Active Medications No Known Medications Results No Known Results Summary Purpose eClinicalWorks Submission
--- OUTSIDE RECORDS SUMMARY | 2016-12-18 12:22 | XMS REPORT ---
Author Author Carmela Whitmore [facility] Address [address], [place] [address] Care Team Providers Care Haulpak Driver Name Role Phone Carmela Whitmore Unavailable PROBLEMS Type Condition ICD9-CM Code [id number] Code Onset Dates Condition Status SNOMED Code Problem Primary insomnia F51.01 well-controlled 0449601 Problem Slow transit constipation K59.01 Active 56432714 Problem Seasonal allergic rhinitis due to pollen J30.1 Active 51807167 Problem Primary hypothyroidism E03.9 Active 48057129 Problem Dermatitis L30.9 Active 74948657 Problem Restless leg syndrome G25.81 Active 96799870 Problem Migraine, unspecified, not intractable, without status migrainosus G43.909 Active 66068238 Problem Constipation by delayed colonic transit K59.01 Active 83777369 Problem Migraine with aura and without status migrainosus, not intractable G43.109 Active 1522072 Problem GERD (gastroesophageal reflux disease) K21.9 Active 620435788 Problem Generalized anxiety disorder F41.1 Active 24506840 Problem Low back pain M54.5 Active 340901512 Problem longterm prescription opiate use Z79.899 Active 218153966 Problem Chronic depression F32.9 Active 593819158 Problem Cervicalgia M54.2 Active 404266976 Problem AIDS B20 Active 84733058 ALLERGIES Unknown Allergies SOCIAL HISTORY No smoking Hx information available PLAN OF CARE VITAL SIGNS MEDICATIONS Unknown Medications RESULTS No Results PROCEDURES No Known procedures IMMUNIZATIONS No Known Immunizations
--- OUTSIDE RECORDS SUMMARY | 2016-12-18 12:22 | XMS REPORT ---
Author Author Huang Arias Organization eClinicalWorks Address Unknown Phone Unavailable Care Team Providers Care Drawer Hardware Worker Name Role Phone Huang Arias CP Unavailable [...] Acquired immune deficiency syndrome 042 Active Problem jail (current) use of 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 V58.69 Active Problem Lumbago 724.2 Active Problem Depressive disorder, not elsewhere classified 311 Active Problem Abdominal pain, unspecified site 789.00 Active Assessment Abdominal pain 789.00 Active Assessment Diarrhea 787.91 Active Problem Morbid obesity 278.01 Active Assessment Thickened small bowel 569.89 Active Problem Unspecified sinusitis (chronic) 473.9 Active Medications Medication Code System Code Instructions Start Date End Date Status Dosage Omeprazole [facility] [address]-38 40 MG Orally Once a day August 15, 2014 1 capsule Evotaz [facility] 9410-7912-80 300/150 mg Oral Daily August 15, 2014 1 Bentyl [facility] [address]-00 20 MG Orally Four times a day August 15, 2014 September 13, 2014 1 tablet Temazepam [facility] [address]-58 15 MG Orally Once a day Mar 14, 2014 1 capsule at bedtime as needed Augmentin [facility] [address]-29 875-125 MG Orally Twice a day August 15, 2014 1 tablet Truvada [facility] [address]-80 200-300 MG Oral 1 (one) daily July 26, 2013 1 tablet Zofran [facility] [address]-15 8 MG Orally every 8 hrs August 15, 2014 September 13, 2014 1 tablet as needed Nulytely with Flavor Packs [facility] [address]-13 420 GM Orally August 23, 2014 as directed Pentasa [facility] [address]-37 500 MG Orally Four times a day August 15, 2014 2 capsules HydrOXYzine HCl [facility] [address]-01 50 MG Oral QHS Oct 27, 2013 1 Procedures Procedure Coding System Code Date Office Visit, New Pt., Level 4 CPT-4 21092 August 23, 2014 Vital Signs Date/Time: August 23, 2014 Blood Pressure Systolic 114 mm Hg Weight 160.0 lbs Height 64.5 in BMI 27.04 Index Respiratory Rate 16 /min Cardiac Monitoring Heart Rate 74 /min Blood Pressure Diastolic 70 mm Hg Results No Known Results Summary Purpose eClinicalWorks Submission
--- OUTSIDE RECORDS SUMMARY | 2016-12-18 12:22 | XMS REPORT ---
Author Carmela Willson [facility] eClinicalWorks Address Unknown Phone Unavailable Care Team Providers Care Casing Puller Name Role Phone Carmela Whitmore Unavailable Allergies No Known Allergies Problems Problem Type Condition ICD-9 Code Onset Dates Condition Status Problem Cervicalgia 723.1 Inactive Problem Unspecified disorder of the teeth and supporting structures 525.9 Inactive Problem Pain in joint, forearm 719.43 Inactive Problem Symptomatic menopausal or female climacteric states 627.2 Inactive Problem Rmibgjgbyw-rtkghfu-vwlezeund, combined [DTP] [DtaP] V06.1 Inactive Problem Need [...] vaccination and inoculation, Influenza V04.81 Inactive Problem production 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
--- OUTSIDE RECORDS SUMMARY | 2016-12-18 12:22 | XMS REPORT ---
Author Author Carmela Whitmore Organization eClinicalWorks Address Unknown Phone Unavailable Care Team Providers Care Criminal Court Judge Name Role Phone Carmela Whitmore CP Unavailable Allergies No Known Allergies Problems Problem Type Condition Code Onset Dates Condition Status Problem Cervicalgia 723.1 Active Problem Lumbago 724.2 Active Problem Nondependent tobacco use disorder 305.1 Active Problem Acquired immune deficiency syndrome 042 Active Problem GERD (gastroesophageal reflux disease) 530.81 Active Problem Insomnia, unspecified G47.00 Active Problem Abdominal pain, unspecified site 789.00 Active Problem director long term care (current) use of 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 V58.69 Active Problem Colitis 558.9 Active Problem Depressive disorder, not elsewhere classified 311 Active Assessment Insomnia, unspecified G47.00 Active Problem Morbid obesity 278.01 Active Problem Unspecified sinusitis (chronic) 473.9 Active Problem Generalized anxiety disorder 300.02 Active Medications Medication Code System Code Instructions Start Date End Date Status Dosage Omeprazole [facility] [address]-84 40 MG Orally Once a day August 15, 2014 1 capsule Truvada [facility] [address]-00 200-300 MG Oral 1 (one) daily July 26, 2013 1 tablet Lomotil [facility] [address]-73 2.5-0.025 MG Orally Four times a day Oct 18, 2014 1-2 tablet as needed Citalopram Hydrobromide [facility] [address]-20 20 MG Orally Once a day Oct 18, 2014 1 tablet HydrOXYzine HCl [facility] [address]-40 50 MG Oral QHS Oct 27, 2013 1 Tramadol HCl [facility] [address]-25 50 MG Orally three times daily October 14, 2014 1-2 tabs Temazepam [facility] [address]-46 30 MG Orally Once a day Mar 14, 2014 Mar 24, 2015 1 capsule at bedtime as needed Evotaz [facility] 6412-3266-47 300/150 mg Oral Daily August 15, 2014 1 Results No Known Results Summary Purpose eClinicalWorks Submission
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
[2016-12-18 12:24] LABS: BILIRUBIN,URINE NEGATIVE (NEGATIVE); KETONES,URINE NEGATIVE (NEGATIVE); LEUKOCYTE ESTERASE ,URINE 3+ (NEGATIVE); NITRITE,URINE POSITIVE (NEGATIVE); PH,URINE 5 (5-9); PROTEIN,URINE 1+ (NEGATIVE); UROBILINOGEN,URINE NORMAL (NORMAL)
[2016-12-18] MEDS ORDERED: TR1C15 (12:24)
--- NOTE | 2016-12-18 12:28 | ED GU-Female ---
General Chief Complaint: -Female Stated Complaint: ABD/LOWER BACK PAIN Nursing Triage Note: ARRIVED VIA AMB TO ROOM 09. STATES SHE THINKS SHE HAS A BLADDER/KIDNEY INFECTION. FOR X2 DAYS SHE HAS HAD FREQUENCY AND BURNING. HAS A HX OF BLADDER INFECTIONS. REQUESTS NO NARCOTICS BUT SOMETHING FOR PAIN. Nursing Sepsis Screen: No Definite Risk Source: patient Exam Limitations: no limitations History of Present Illness Time seen by provider: 12:28 Initial Comments 46-year-old female patient presents to the emergency department with complaints of possible bladder/kidney infection. Patient reports onset of symptoms 2 days ago. Does complain of frequency and dysuria. Reports a lengthy history for urinary tract infections. Timing/Duration: getting worse, other (2 day onset) Severity/Quality: burning Location: suprapubic Radiation: back (bilateral low back) Activities at Onset: none Prior Genitourinary Problems: similar symptoms Modifying Factors: Worsens With Palpation, Worsens With Urinating Allergies and Home Medications Allergies Coded Allergies: No Known Drug Allergies (Unverified , 03/10/16) Home Medications Cefdinir 300 Mg Capsule, 300 MG PO BID, #20 Ref 0 Prescribed by: MARIAJOSE PERES on 12/18/16 1257 Meclizine HCl 25 Mg Tablet, 25-50 MG PO Q6H, #30 Prescribed by: DIXIE LOPEZ on 03/17/16 1600 Permethrin 60 Gm Cream..g., 60 GM TP ONCE, #1 Ref 1 apply as directed by the paper core machine operator. repeat in 14 days. Prescribed by: MARIAJOSE PERES on 12/18/16 1318 Phenazopyridine HCl 200 Mg Tablet, 1 TAB PO Q8H PRN for pain, #14 Ref 0 Prescribed by: MARIAJOSE PERES on 12/18/16 1257 Scopolamine 1 Each Patch.td72, 1 EACH TD Q72 HOURS, #3 Prescribed by: DIXIE LOPEZ on 03/17/16 1600 Triamcinolone Acet 15 Gm Cr, (Reported) Constitutional: No chills, No fever, No malaise Respiratory: No cough, No short of breath Cardiovascular: No chest pain, No palpitations Gastrointestinal: see HPI, abdominal pain (suprapubic abdominal pain), No constipation, No diarrhea, No nausea, No vomiting Genitourinary: see HPI, dysuria, frequency, denies hematuria Musculoskeletal: see HPI, back pain Skin: no symptoms reported Psychiatric/Neurological: No Symptoms Reported All Other Systemes Reviewed Negative Unless Noted: Yes (Negative excepted noted.) Past Gvsdhve-Vdkroi-Qpqlnv Hx Patient Social History Alcohol Use: Denies Use Recreational Drug Use: Yes (PAST HX) Drug of Choice: METH AND MARIJUANA Smoking Status: Never a Smoker Type Used: Cigarettes 2nd Hand Smoke Exposure: No Recent Foreign Travel: No Contact w/Someone Who Travel: No Recent Infectious Disease Expo: No Recent Hopitalizations: No Surgeries History of Surgeries: Yes (GASTRIC BYPASS, ABDOMINOPLASTY; HERNIA REPAIR) Surgeries: Abdominal, Adenoidectomy, Section, Gallbladder, Pacemaker, Tonsillectomy Respiratory History of Respiratory Disorde: Yes Respiratory Disorders: COPD Cardiovascular History of Cardiac Disorders: Yes (PACEMAKER FOR BRADYCARDIA) Neurological History of Neurological Disord: Yes Neurological Disorders: Vertigo Reproductive System Hx Reproductive Disorders: No HIV/AIDS: Yes Genitourinary Genitourinary Disorders: Kidney Infection, Bladder Infection Gastrointestinal History of Gastrointestinal Di: No Musculoskeletal History of Musculoskeletal Dis: No Endocrine History of Endocrine Disorders: No Cancer History of Cancer: No Psychosocial History of Psychiatric Problem: Yes Behavioral Health Disorders: ADD/ADHD, Anxiety, PTSD, Bipolar, Depression Integumentary History of Skin or Integumenta: No Blood Transfusions History of Blood Disorders: No Adverse Reaction to a Blood Tr: No Reviewed Nursing Assessment Reviewed/Agree w Nursing PMH: Yes Family Medical History Significant Family History: No Pertinent Family Hx Physical Exam Vital Signs Vital Sign - Last 12Hours 12/18/16 12:05 Temp 97.4 Pulse 60 Resp 18 B/P (MAP) 97/44 Pulse Ox 96 Capillary Refill : Less Than 3 Seconds General Appearance: WD/WN, no apparent distress HEENT: PERRL/EOMI, pharynx normal Neck: supple, normal inspection Cardiovascular: normal peripheral pulses, regular rate, rhythm, no edema, no murmur Respiratory: lungs clear, normal breath sounds, no respiratory distress, no accessory muscle use Gastrointestinal: normal bowel sounds, soft, no organomegaly, No distended, No guarding, No rebound, tenderness (suprapubic tenderness noted) Back: normal inspection, CVA tenderness (R), CVA tenderness (L) Extremities: non-tender, no pedal edema, no calf tenderness, normal capillary refill, other (see skin exam below) Neurologic/Psychiatric: alert, normal mood/affect, oriented x 3 Skin: normal color, warm/dry, rash (scattered macules with central scabs consistent with insect bites of the BLE and BUE.) Progress/Results/Core Measures Results/Orders Lab Results Laboratory Tests Test 12/18/16 12:10 Range/Units Urine Color YELLOW Urine Clarity CLEAR Urine pH 5 5-9 Urine Specific [place] 1.020 1.016-1.022 Urine Protein 1+ H NEGATIVE Urine Glucose (UA) NEGATIVE NEGATIVE Urine Ketones NEGATIVE NEGATIVE Urine Nitrite POSITIVE H NEGATIVE Urine Bilirubin NEGATIVE NEGATIVE Urine Urobilinogen NORMAL NORMAL MG/DL Urine Leukocyte Esterase 3+ H NEGATIVE Urine RBC (Auto) 2+ H NEGATIVE Urine RBC 2-5 H /HPF Urine WBC >100 H /HPF Urine Squamous Epithelial Cells 5-10 /HPF Urine Crystals NONE /LPF Urine Bacteria LARGE H /HPF Urine Casts NONE /LPF Urine Mucus NEGATIVE /LPF Urine Culture Indicated YES My Orders Orders - MARIAJOSE PERES PA Ua Culture If Indicated (12/18/16 12:19) Ketorolac Injection (Toradol Injection) (12/18/16 12:37) Phenazopyridine Tablet (Pyridium Tablet) (12/18/16 12:37) Urine Culture (12/18/16 12:10) Ceftriaxone Injection (Rocephin Injectio (12/18/16 13:00) Lidocaine 1% Injection (Xylocaine 1% Inj (12/18/16 13:00) Medications Given in ED Current Medications Medications Dose Ordered Sig/Brit Route Start Time Stop Time Status Last Admin Dose Admin Ceftriaxone Sodium 1,000 mg ONCE ONCE IM 12/18/16 13:00 12/18/16 13:01 DC 12/18/16 13:21 1,000 MG Lidocaine HCl 2.1 ml ONCE ONCE INJ 12/18/16 13:00 12/18/16 13:01 DC 12/18/16 13:21 2.1 ML Vital Signs/I&O Vital Sign - Last 12Hours 12/18/16 12/18/16 12:05 13:43 Temp 97.4 Pulse 60 67 Resp 18 18 B/P (MAP) 97/44 Pulse Ox 96 98 Blood Pressure Mean: 61 Point of Care Testing Urine -Bedside: Negative Progress Note : Progress Note patient c/o a rash of the extremities that she has been seeing [facility] and Dr. Russell about. States she was told it was eczema. States a bx was done on one of the lesions. Also reports being treated with scabies cream 1 month ago with improvement in symptoms. Departure Communication (Admissions) Progress Notes Laboratory findings discussed with the patient. Patient given 60 mg of Toradol IM and Rocephin 1 g IM. Discharge to home with follow-up as an outpatient with her primary care provider. Impression Impression: Primary Impression: Urinary tract infection Qualified Codes: N30.01 - Acute cystitis with hematuria Additional Impression: Insect bites Qualified Codes: W57.XXXA - Bitten or stung by nonvenomous insect and other nonvenomous arthropods, initial encounter Disposition: HOME, SELF-CARE Condition: Improved Departure-Patient Inst. Decision time for Depature: 12:56 Referrals: SARY RUSSELL MD (PCP) Primary Care Physician [facility] Patient Instructions: Urinary Tract Infection, Adult (DC) Add. Discharge Instructions: All discharge instructions reviewed with patient and/or family. Voiced understanding. Medications as instructed. Continue usual home medications. Drink plenty of fluids. Follow-up with [facility] as an outpatient for recheck, call today for appointment time. Return to the emergency department for worsened pain, fever, blood in your urine, inability to urinate, vomiting, or any other concerns. Scripts Permethrin (Permethrin) 60 Gm Cream..g. 60 GM TP ONCE, #1 TUBE 1 Refill apply as directed by the paper core machine operator. repeat in 14 days. Prov: MARIAJOSE PERES 12/18/16 Phenazopyridine HCl (Pyridium) 200 Mg Tablet 1 TAB PO Q8H Y for pain, #14 TAB 0 Refills Prov: MARIAJOSE PERES 12/18/16 Cefdinir (Cefdinir) 300 Mg Capsule 300 MG PO BID, #20 CAP 0 Refills Prov: MARIAJOSE PERES 12/18/16 MARIAJOSE PERES Dec 18, 2016 12:28
[2016-12-18] MEDS ORDERED: KETOROLAC 60 MG/2 ML VIAL IM STA (12:37)
[2016-12-18] MEDS ORDERED: PHENAZOPYRIDINE 100 MG (PYRIDIUM) TABLET PO STA (12:37)
[2016-12-18 12:42] LABS: WBC,URINE >100 /HPF
[2016-12-18] MEDS ORDERED: PHEN-640 PO (12:57)
[2016-12-18] MEDS ORDERED: CEFD300C3 PO (12:57)
[2016-12-18] MEDS ORDERED: cefTRIAXone 1 GM (ROCEPHIN) VIAL IM ONE (13:00)
[2016-12-18] MEDS ORDERED: LIDOCAINE 1% INJ 20 ML (XYLOCAINE) VIAL INJ ONE (13:00)
[2016-12-18] MEDS ORDERED: PERM60CR4 TP (13:18)
[2016-12-18 13:43] VITALS: BP 109/71
== END 2016-12-18 13:43 | disposition home or self-care (01) ==
LOC: EDUNIT# 12:01 → ER 12:03
DX: S40.862A Insect bite (nonvenomous) of left upper arm, initial encounter (principal); S40.861A Insect bite (nonvenomous) of right upper arm, initial encounter; S80.861A Insect bite (nonvenomous), right lower leg, initial encounter; S80.862A Insect bite (nonvenomous), left lower leg, initial encounter; N39.0 Urinary tract infection, site not specified; F90.9 Attention-deficit hyperactivity disorder, unspecified type; F41.9 Anxiety disorder, unspecified; F43.10 Post-traumatic stress disorder, unspecified; F31.9 Bipolar disorder, unspecified; F15.10 Other stimulant abuse, uncomplicated; F12.10 Cannabis abuse, uncomplicated; Z95.0 Presence of cardiac pacemaker; Z90.89 Acquired absence of other organs; Z98.84 Bariatric surgery status; Z87.448 Personal history of other diseases of urinary system; W57.XXXA Bitten or stung by nonvenomous insect and other nonvenomous arthropods, initial encounter
CPT/HCPCS: 81000; 84703; 87077; 87088; 87186; 96372; 99284

== ENCOUNTER 2017-03-06 05:33 | Outpatient (CLI) | payer MEDICARE, MEDICAID ==
[~2017-03-06] VITALS: Ht 162.6 cm; Wt 81.6 kg
[~2017-03-06 05:33] MED LIST changes: +CEFD300C3 PO; +PERM60CR4 TP; +PHEN-640 PO; +TR1C15
[2017-03-06] MEDS ORDERED: ATAZ1TAB PO (13:44)
[2017-03-06] MEDS ORDERED: NORT25CA PO (13:44)
[2017-03-06] MEDS ORDERED: NICO10SP NS (13:44)
[2017-03-06] MEDS ORDERED: LEVO50TA6 PO (13:44)
[2017-03-06] MEDS ORDERED: TOPI100C6 PO (13:44)
[2017-03-06] MEDS ORDERED: TEMA30CA PO (13:44)
[2017-03-06] MEDS ORDERED: TOPI100T PO (13:44)
[2017-03-06] MEDS ORDERED: ROPI1TAB2 PO (13:44)
[2017-03-06] MEDS ORDERED: PALI6TAB PO (13:44)
[2017-03-06] MEDS ORDERED: UMEC1BLS IH (13:44)
[2017-03-06] MEDS ORDERED: CITA40TA19 PO (13:44)
[2017-03-06] MEDS ORDERED: OMEP40CA36 PO (13:44)
[2017-03-06] MEDS ORDERED: EMTR1TAB13 PO (13:44)
== END 2017-03-06 13:46 ==
LOC: PREOP 05:33
PROVIDERS: ATTEND Surgery
DX: Z01.818 Encounter for other preprocedural examination (principal); R19.4 Change in bowel habit

== ENCOUNTER → 2017-03-12 | Day surgery (SDC) | payer MEDICARE, MEDICAID ==
[~2017-03-12] VITALS: Ht 162.6 cm; Wt 81.6 kg
[~2017-03-12] MED LIST changes: +ATAZ1TAB PO; +CITA40TA19 PO; +EMTR1TAB13 PO; +HURRICAINE EXT TUBE (BENZOCAINE) ONE; +HURRICAINE EXT TUBE (BENZOCAINE) XX PRN; +LACTATED RINGERS 1,000 ML IV ONE; +LACTATED RINGERS 1,000 ML IV SCH; +LACTATED RINGERS 1,000 ML IV STA; +LEVO50TA6 PO; +MIDAZOLAM 2 MG/2 ML (VERSED) VIAL ONE; +NICO10SP NS; +NORT25CA PO; +OMEP40CA36 PO; +PALI6TAB PO; +PROPOFOL INJECTION 50 ML IV ONE; +ROPI1TAB2 PO; +TEMA30CA PO; +TOPI100C6 PO; +TOPI100T PO; +UMEC1BLS IH
--- OUTSIDE RECORDS SUMMARY | 2017-03-12 07:02 | XMS REPORT ---
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 use Z79.899 Active 221133330 Problem Insomnia G47.00 Active 264629155 Problem Cervicalgia M54.2 [address] Problem [address] of the head R93.0 Active 744193358 Problem Low back pain M54.5 Active 079431094 Problem Cigarette nicotine dependence, uncomplicated F17.210 Active 46955787 Problem Anxiety F41.9 Active 53021888 Problem Bilateral headaches R51 Active 168770791 Problem Dorsalgia M54.9 Active 591169127 Problem Body lice infestation B85.1 Active 34177061 Problem Primary insomnia F51.01 Active 0609975 Problem Chronic depression F32.9 Active 515952465 Problem AIDS B20 Active 35805028 Problem COPD bronchitis J44.9 Active 52623844 Problem Intertrigo L30.4 Active 52235078 Problem Chronic pruritus L29.9 Active 231280574 Problem Other chronic pain G89.29 Active 16804267 Problem Migraine, unspecified, not intractable, without status migrainosus G43.909 Active 15622950 Problem Restless leg syndrome G25.81 Active 63902747 Problem Seasonal allergic rhinitis due to pollen J30.1 Active 50939298 Problem Slow transit constipation K59.01 Active 14581710 Problem Dermatitis L30.9 Active 85409192 Problem Primary hypothyroidism E03.9 Active 72758097 Problem Constipation by delayed colonic transit K59.01 Active 55396562 Problem Migraine with aura and without status migrainosus, not intractable G43.109 Active 2410343 ALLERGIES No Information SOCIAL HISTORY Never Assessed PLAN OF CARE VITAL SIGNS MEDICATIONS Medication Instructions Dosage Frequency Start Date End Date Duration Status Bactrim DS 800-160 MG Orally Two times daily 1 tablet 10 day(s) Active RESULTS No Results PROCEDURES No [...] History Abdominal pain, unspecified site Medical History MCC (current) 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
--- OUTSIDE RECORDS SUMMARY | 2017-03-12 07:04 | XMS REPORT ---
Author Author Alessia Erickson [facility] Address [address] [place], [place] [id number] Care Team Providers Care Activities Coordinator Name Role Phone Alessia Erickson Unavailable PROBLEMS Type Condition ICD9-CM Code [id number] Code Onset Dates Condition Status SNOMED Code Problem Generalized anxiety disorder F41.1 Active 65444571 Problem GERD (gastroesophageal reflux disease) K21.9 Active 019386694 Problem exterminator termite prescription opiate use Z79.899 Active 017259072 Problem Insomnia G47.00 Active 936999863 Problem Cervicalgia M54.2 [address] Problem [address] of the head R93.0 Active 398865218 Problem Low back pain M54.5 Active 391741716 Problem Cigarette nicotine dependence, uncomplicated F17.210 Active 44210212 Problem Anxiety F41.9 Active 88743077 Problem Bilateral headaches R51 Active 174174327 Problem Dorsalgia M54.9 Active 251989507 Problem Body lice infestation B85.1 Active 16656365 Problem Primary insomnia F51.01 Active 8708501 Problem Chronic depression F32.9 Active 071472695 Problem AIDS B20 Active 35751864 Problem COPD bronchitis J44.9 Active 16439563 Problem Intertrigo L30.4 Active 85012187 Problem Chronic pruritus L29.9 Active 303089946 Problem Other chronic pain G89.29 Active 41531418 Problem Migraine, unspecified, not intractable, without status migrainosus G43.909 Active 25633025 Problem Restless leg syndrome G25.81 Active 40729072 Problem Seasonal allergic rhinitis due to pollen J30.1 Active 86474847 Problem Slow transit constipation K59.01 Active 75977458 Problem Dermatitis L30.9 Active 00477673 Problem Primary hypothyroidism E03.9 Active 14836423 Problem Constipation by delayed colonic transit K59.01 Active 87712497 Problem Migraine with aura and without status migrainosus, not intractable G43.109 Active 5970056 ALLERGIES No Information SOCIAL HISTORY Never Assessed [...] History Abdominal pain, unspecified site Medical History retirement (current) 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
--- OUTSIDE RECORDS SUMMARY | 2017-03-12 07:05 | XMS REPORT ---
Author Author Alessia Erickson [facility] Address [address], [place] [id number] Care Team Providers Care Continuous Improvement Analyst Name Role Phone Alessia Erickson Unavailable PROBLEMS Type Condition ICD9-CM Code TYI15-RQ Code Onset Dates Condition Status SNOMED Code Problem Generalized anxiety disorder F41.1 Active 26499832 Problem GERD (gastroesophageal reflux disease) K21.9 Active 479963106 Problem intermediate accountant prescription opiate use Z79.899 Active 071278903 Problem Insomnia G47.00 Active 839795830 Problem Cervicalgia M54.2 Active 25[address]8946 Problem [address] of the head R93.0 Active 646743509 Problem Low back pain M54.5 Active 254055167 Problem Cigarette nicotine dependence, uncomplicated F17.210 Active 05650989 Problem Anxiety F41.9 Active 29600250 Problem Bilateral headaches R51 Active 682530444 Problem Dorsalgia M54.9 Active 708656345 Problem Body lice infestation B85.1 Active 16984133 Problem Primary insomnia F51.01 Active 4762723 Problem Chronic depression F32.9 Active 572593781 Problem AIDS B20 Active 35490329 Problem COPD bronchitis J44.9 Active 37655242 Problem Intertrigo L30.4 Active 13692135 Problem Chronic pruritus L29.9 Active 468412713 Problem Other chronic pain G89.29 Active 98827368 Problem Migraine, unspecified, not intractable, without status migrainosus G43.909 Active 34783916 Problem Restless leg syndrome G25.81 Active 58542826 Problem Seasonal allergic rhinitis due to pollen J30.1 Active 95876723 Problem Slow transit constipation K59.01 Active 05964886 Problem Dermatitis L30.9 Active 21598076 Problem Primary hypothyroidism E03.9 Active 52497497 Problem Constipation by delayed colonic transit K59.01 Active 15122328 Problem Migraine with aura and without status migrainosus, not intractable G43.109 Active 6516665 ALLERGIES No Information SOCIAL HISTORY Never Assessed [...] History Abdominal pain, unspecified site Medical History assisted (current) 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
--- OUTSIDE RECORDS SUMMARY | 2017-03-12 07:06 | XMS REPORT ---
Author Author Alessia Erickson [facility] Address [address], [place] [id number] Care Team Providers Care Private Inquiry Agent Name Role Phone Alessia Erickson Unavailable PROBLEMS Type Condition ICD9-CM Code [id number] Code Onset Dates Condition Status SNOMED Code Problem Generalized anxiety disorder F41.1 Active 05988952 Problem GERD (gastroesophageal reflux disease) K21.9 Active 076095694 Problem terminal carman prescription opiate use Z79.899 Active 174462124 Problem Insomnia G47.00 Active 980140152 Problem Cervicalgia M54.2 [address] of the head R93.0 Active 504578595 Problem Low back pain M54.5 Active 108224402 Problem Cigarette nicotine dependence, uncomplicated F17.210 Active 65520681 Problem Anxiety F41.9 Active 74154898 Problem Bilateral headaches R51 Active 513924892 Problem Dorsalgia M54.9 Active 516058181 Problem Body lice infestation B85.1 Active 43304093 Problem Primary insomnia F51.01 Active 6768696 Problem Chronic depression F32.9 Active 306677151 Problem AIDS B20 Active 45509157 Problem COPD bronchitis J44.9 Active 29189163 Problem Intertrigo L30.4 Active 75696702 Problem Chronic pruritus L29.9 Active 301733514 Problem Other chronic pain G89.29 Active 80145470 Problem Migraine, unspecified, not intractable, without status migrainosus G43.909 Active 51952212 Problem Restless leg syndrome G25.81 Active 26694688 Problem Seasonal allergic rhinitis due to pollen J30.1 Active 93848530 Problem Slow transit constipation K59.01 Active 53168784 Problem Dermatitis L30.9 Active 36810825 Problem Primary hypothyroidism E03.9 Active 66719430 Problem Constipation by delayed colonic transit K59.01 Active 32900220 Problem Migraine with aura and without status migrainosus, not intractable G43.109 Active 2408230 ALLERGIES No Information SOCIAL HISTORY Never Assessed PLAN OF CARE VITAL SIGNS MEDICATIONS Medication Instructions Dosage Frequency Start Date End Date Duration Status Fluocinonide Emulsified Base 0.05 % Externally twice a day as directed 12h Mar, 30 days Active Fluconazole 200 Orally Once a day 1 tablet 24h 2 Active Celexa 40 MG Orally Once a day 1 tablet 24h 15 Nov, 2015 30 day(s) Active Descovy 200-25 mg Orally Once a day 1 tablet 24h May, 30 days Active Nortriptyline HCl 25 MG Orally Once a day 1 capsule 24h Apr, 30 day(s) Active Linzess 145 MCG Orally Once a day 1 capsule 24h 10 Apr, 2016 30 day(s) Active Evotaz 300/150 mg Oral once a day 1 tab 24h Aug, 30 days Active Remeron 15 TAKE ONE TABLET BY MOUTH AT BEDTIME 30 Active Nicotrol 10 MG Inhalation 16 time(s) a day 1 puff as needed Sep, 30 days Active Ventolin HFA 108 (90 Base) MCG/ACT Inhalation four times a day 2 puffs as needed 6h 30 Nov, 2015 30 days Active Trokendi XR 100 MG Orally Once a day 1 capsule 24h Sep, 30 day( s) Active Strattera 25 MG Orally Once a day 1 capsule 24h Active Triamcinolone Acetonide 0.1 % External Twice a day 1 application to affected area 12h 30 days Active Diclofenac Potassium 50 MG Orally Twice a day 1 tablet 12h Oct, 30 day(s) Active Doxepin HCl 50 TAKE ONE CAPSULE BY MOUTH EVERY NIGHT AT BEDTIME 90 Active Levothyroxine Sodium 50 MCG Orally Once a day 1 tablet on an empty stomach in the morning 24h Jun, 30 day(s) Active Ropinirole HCl 0.5 MG Orally once a day 1 tab at bedtime 24h 30 days Active Simethicone 180 MG Orally Four times a day 1 capsule as needed 6h Jan, 10 days Active Bactrim DS 800-160 MG Orally Two times daily 1 tablet 10 day(s) Active Permethrin 5 % Externally apply head to toe; leave on 8-12h then wash off with water, may reapply in 1 week as directed Oct, 1 dose Active Fluconazole 200 MG Orally Once a day 1 tablet 24h Sep, 2 days Active Remeron 15 MG Orally Once a day 1 tab at bedtime 24h 30 days Active Temazepam 30 MG Orally Once a day 1 capsule at bedtime as needed 24h May 30 days Active HydrOXYzine HCl 25 MG Orally every 8 hrs 1 tablet as needed 8h Oct, 30 day(s) Active Ketoconazole 2 % Externally Once a day as directed 24h May, 30 days Active Permethrin 5 % Externally Once a day 1 application to affected area 24h Oct, 7 day(s) Active Chantix Starting Month Ed 0.5 MG X 11 & 1 MG X 42 Orally 0.5 mg po daily x 3 days then 0.5 mg bid x 4, then 1 mg BID as directed Sep, 30 days Active [place] 7.5-325 MG Orally Two times daily 1 tablet as needed Oct, 10 days Active Ivermectin 3 MG Orally Once a day as directed 24h Oct, 1 dose Active Omeprazole 40 MG Orally Once a day 1 capsule 24h Aug, 30 day(s ) Active Ferrous Sulfate 325 (65 Fe) MG Orally Once a day 1 tablet 24h Oct, 90 days Active Stiolto Respimat 2.5-2.5 MCG/ACT Inhalation Once a day 2 puffs 24h Sep, 30 days Active RESULTS No Results [...] Abdominal pain, unspecified site Medical History terminal carman (current) 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
--- OUTSIDE RECORDS SUMMARY | 2017-03-12 07:07 | XMS REPORT ---
Author Author Alessia Erickson [facility] Address [address], [place] [id number] Care Team Providers Care Lithoduplicator Operator Name Role Phone Alessia Erickson Unavailable PROBLEMS Type Condition ICD9-CM Code [id number] Code Onset Dates Condition Status SNOMED Code Problem Generalized anxiety disorder F41.1 Active 59500514 Problem GERD (gastroesophageal reflux disease) K21.9 Active 543688867 Problem terminal supervisor prescription opiate use Z79.899 Active 550402344 Problem Insomnia G47.00 Active 461061391 Problem Cervicalgia M54.2 Active [address] Problem [address] of the head R93.0 Active 767399425 Problem Low back pain M54.5 Active 262778115 Problem Cigarette nicotine dependence, uncomplicated F17.210 Active 91306877 Problem Anxiety F41.9 Active 40851109 Problem Bilateral headaches R51 Active 844342514 Problem Dorsalgia M54.9 Active 137510018 Problem Body lice infestation B85.1 Active 98342860 Problem Primary insomnia F51.01 Active 6117133 Problem Chronic depression F32.9 Active 217357602 Problem AIDS B20 Active 53313814 Problem COPD bronchitis J44.9 Active 86568537 Problem Intertrigo L30.4 Active 37906238 Problem Chronic pruritus L29.9 Active 798162766 Problem Other chronic pain G89.29 Active 78516269 Problem Migraine, unspecified, not intractable, without status migrainosus G43.909 Active 11359848 Problem Restless leg syndrome G25.81 Active 67425708 Problem Seasonal allergic rhinitis due to pollen J30.1 Active 48461661 Problem Slow transit constipation K59.01 Active 35334714 Problem Dermatitis L30.9 Active 68084567 Problem Primary hypothyroidism E03.9 Active 65254377 Problem Constipation by delayed colonic transit K59.01 Active 57563965 Problem Migraine with aura and without status migrainosus, not intractable G43.109 Active 7581801 ALLERGIES No Information SOCIAL HISTORY Never Assessed PLAN OF CARE VITAL SIGNS MEDICATIONS Medication Instructions Dosage Frequency Start Date End Date Duration Status Evotaz 300/150 mg Oral once a day 1 tab 24h Aug, 30 days Active RESULTS No Results PROCEDURES [...] History Abdominal pain, unspecified site Medical History half-way (current) 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
--- OUTSIDE RECORDS SUMMARY | 2017-03-12 07:08 | XMS REPORT ---
Author Author Alessia Erickson [facility] Address [address] [place], [place] [id number] Care Team Providers Care Stretching Press Operator Name Role Phone Alessia Erickson Unavailable PROBLEMS Type Condition ICD9-CM Code OOM16-SI Code Onset Dates Condition Status SNOMED Code Problem GERD (gastroesophageal reflux disease) K21.9 Active 729727136 Problem [facility] prescription opiate use Z79.899 Active 523427973 Problem Cervicalgia M54.2 Active 690381396 Problem Insomnia G47.00 Active 217884882 Problem Generalized anxiety disorder F41.1 Active 76865258 Problem Abnormal CT of the head R93.0 Active 402251183 Problem Low back pain M54.5 Active 113052775 Problem Anxiety F41.9 Active 51053103 Problem Cigarette nicotine dependence, uncomplicated F17.210 Active 70970323 Problem Bilateral headaches R51 Active 582619675 Problem Dorsalgia M54.9 Active 591668809 Problem Chronic pruritus L29.9 Active 713837619 Problem Primary insomnia F51.01 Active 2060325 Problem AIDS B20 Active 49520377 Problem Chronic depression F32.9 Active 423405640 Problem Intertrigo L30.4 Active 47841881 Problem COPD bronchitis J44.9 Active 94236645 Problem Body lice infestation B85.1 Active 53253380 Problem Other chronic pain G89.29 Active 86775946 Problem Migraine, unspecified, not intractable, without status migrainosus G43.909 Active 39962677 Problem Restless leg syndrome G25.81 Active 82235735 Problem Seasonal allergic rhinitis due to pollen J30.1 Active 41950095 Problem Slow transit constipation K59.01 Active 51519398 Problem Dermatitis L30.9 Active 52152287 Problem Primary hypothyroidism E03.9 Active 01363328 Problem Migraine with aura and without status migrainosus, not intractable G43.109 Active 8116551 Problem Constipation by delayed colonic transit K59.01 Active 96506923 ALLERGIES No Information SOCIAL HISTORY Never Assessed [...] History Abdominal pain, unspecified site Medical History [facility] (current) 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
--- OUTSIDE RECORDS SUMMARY | 2017-03-12 07:08 | XMS REPORT ---
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 Z79.899 Active 829774172 Problem Insomnia G47.00 Active 626889722 Problem Cervicalgia M54.2 Active 812924603 Problem Ab[address] CT of the head R93.0 Active 975910298 Problem Low back pain M54.5 Active 920660846 Problem Cigarette nicotine dependence, uncomplicated F17.210 Active 61148415 Problem Anxiety F41.9 Active 12285648 Problem Bilateral headaches R51 Active 620298130 Problem Dorsalgia M54.9 Active 597372138 Problem Body lice infestation B85.1 Active 74559222 Problem Primary insomnia F51.01 Active 9333603 Problem Chronic depression F32.9 Active 052086986 Problem AIDS B20 Active 04145995 Problem COPD bronchitis J44.9 Active 85576417 Problem Intertrigo L30.4 Active 97542725 Problem Chronic pruritus L29.9 Active 812009583 Problem Other chronic pain G89.29 Active 09902629 Problem Migraine, unspecified, not intractable, without status migrainosus G43.909 Active 36851751 Problem Restless leg syndrome G25.81 Active 17085329 Problem Seasonal allergic rhinitis due to pollen J30.1 Active 83872488 Problem Slow transit constipation K59.01 Active 47149451 Problem Dermatitis L30.9 Active 00481108 Problem Primary hypothyroidism E03.9 Active 64389055 Problem Constipation by delayed colonic transit K59.01 Active 66060300 Problem Migraine with aura and without status migrainosus, not intractable G43.109 Active 7365449 ALLERGIES No Information SOCIAL HISTORY Never Assessed [...] History Abdominal pain, unspecified site Medical History halfway (current) 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
--- OUTSIDE RECORDS SUMMARY | 2017-03-12 07:09 | XMS REPORT ---
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 Active 7394115661002 Problem HIV antibody positive Z21 Active 688032621 Problem Routine gynecological examination Z01.419 Active 551059488 Problem Bipolar 1 disorder with moderate marii F31.12 Active 46775727 Problem Constipation, unspecified constipation type K59.00 Active 14326574 Problem History of [place] (myocardial infarction) I25.2 Active 360223574 Problem Post traumatic stress disorder (PTSD) F43.10 Active 11919999 Problem ADHD, adult residual type F90.8 Active 384515472 Problem Tobacco abuse Z72.0 Active 893495106 Problem Family history of diabetes mellitus Z83.3 Active 626501089 Problem Chronic gastritis without bleeding, unspecified gastritis type K29.50 Active 8531088 Problem Pacemaker Z95.0 Active 687388217 Problem Left hip pain M25.552 Active 54075901 Problem Tobacco abuse counseling Z71.6 Active 343103156 Problem Generalized headaches R51 Active 174821989 Problem Restless legs syndrome G25.81 Active 81765320 Problem Routine health maintenance Z00.00 Active 588062792 ALLERGIES No Known Allergies SOCIAL HISTORY Never Assessed PLAN OF CARE Activity Details Follow Up prn Reason:FRANSICO VITAL SIGNS Height 64 in 2016-07-01 Blood pressure systolic 103 mmHg 2016-07-01 Blood pressure diastolic 66 mmHg 2016-07-01 MEDICATIONS Medication Instructions Dosage Frequency Start Date End Date Duration Status Evotaz 300-150 MG Orally Once a day 1 tablet with food 24h Active Truvada 200-300 MG Orally Once a day 1 tablet 24h Active Strattera 80 MG Active Omeprazole 20 MG Orally Once a day 2 capsules 24h Active Requip 0.5 MG Orally Once a day take one tablet 30-60 minutes prior to sleep 24h 06 Feb, 2016 Active HydrOXYzine HCl 25 MG Orally every 8 hrs 1 tablet as needed 8h Feb, 30 days Active Celexa 20 MG Orally Once a day 1 tablet 24h Active RESULTS No Results PROCEDURES Procedure Date Ordered Result Body Site TOPICAL FLUORIDE VARNISH July 01, 2016 INTRAORL-PERIAPICAL 1 FILM 60834 July 01, 2016 INTRAORL-PERIAPICAL EA ADD FILM July 01, 2016 PROPHYLAXIS - ADULT July 01, 2016 PANORAMIC FILM SEE ALSO CODE [id number] July 01, 2016 ORAL HYGIENE INSTRUCTIONS July 01, 2016 INTRAORL-PERIAPICAL EA ADD FILM July 01, 2016 INTRAORL-PERIAPICAL EA ADD FILM July 01, 2016 INTRAORL-PERIAPICAL EA ADD FILM July 01, 2016 INTRAORL-PERIAPICAL EA ADD FILM July 01, 2016 IMMUNIZATIONS No Known Immunizations MEDICAL (GENERAL) HISTORY Type Description Date Medical History PACE MAKER done 10 + years 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
--- OUTSIDE RECORDS SUMMARY | 2017-03-12 07:10 | XMS REPORT ---
Author Author GIOVANNA FARRELL Organization [facility] Address [address] [place] [address] Care Team Providers Care Air Route Controller Name Role Phone PADMINI FARRELLICE Unavailable PROBLEMS Type Condition ICD9-CM Code [id number] Code Onset Dates Condition Status SNOMED Code Problem Left hip pain M25.552 Active 37525428 Problem Family history of diabetes mellitus Z83.3 Active 820013707 Problem Tobacco abuse Z72.0 Active 458794427 Problem Constipation, unspecified constipation type K59.00 Active 89616991 Problem History of [place] (myocardial infarction) I25.2 Active 030439876 Problem Restless legs syndrome G25.81 Active 39526811 Problem Tobacco abuse counseling Z71.6 Active 295456898 Problem Routine health maintenance Z00.00 Active 312709395 Problem Generalized headaches R51 Active 388534485 Problem History of gastric bypass Z98.890 Active 699329396 Problem HIV antibody positive Z21 Active 480122669 Problem 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 Active 2397735925932 Problem Chronic gastritis without bleeding, unspecified gastritis type K29.50 Active 1037017 Problem Pacemaker Z95.0 Active 190705488 ALLERGIES No Known Allergies SOCIAL HISTORY Never Assessed PLAN OF CARE Activity Details Follow Up prn Reason: VITAL SIGNS Height 64 in 2016-05-30 Weight 173.2 lbs 2016-05-30 Temperature 97.7 degrees Fahrenheit 2016-05-30 Heart Rate 80 bpm 2016-05-30 Respiratory Rate 18 2016-05-30 BMI 29.73 kg/m2 2016-05-30 Blood pressure systolic 92 mmHg 2016-05-30 Blood pressure diastolic 60 mmHg 2016-05-30 MEDICATIONS Medication Instructions Dosage Frequency Start Date End Date Duration Status HydrOXYzine HCl 25 MG Orally every 8 hrs 1 tablet as needed 8h 20 Feb, 2016 30 days Active Strattera 80 MG Active Celexa 20 MG Orally Once a day 1 tablet 24h Active Cetirizine HCl 10 MG Orally Once a day 1 tablet 24h May, Jun, 30 day(s) Active Omeprazole 20 MG Orally Once a day 2 capsules 24h Active Hydrocortisone 1 % Externally Twice a day 1 application to affected area 12h May, May, 10 days Active Requip 0.5 MG Orally Once a day take one tablet 30-60 minutes prior to sleep 24h Feb, Active Truvada 200-300 MG Orally Once a day 1 tablet 24h Active Evotaz 300-150 MG Orally Once a day 1 tablet with food 24h Active RESULTS No Results PROCEDURES Procedure Date Ordered Result Body Site [facility] VISIT ESTABLISHED PATIENT May 30, 2016 IMMUNIZATIONS No Known Immunizations MEDICAL (GENERAL) HISTORY Type Description Date Medical History PACE MAKER done 10 + years 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
--- OUTSIDE RECORDS SUMMARY | 2017-03-12 07:10 | XMS REPORT ---
Author Author Alessia Erickson 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 Z79.899 Active 994468101 Problem Insomnia G47.00 Active 116643172 Problem Cervicalgia M54.2 Active [address]31 Problem [address] of the head R93.0 Active 739309352 Problem Low back pain M54.5 Active 535428439 Problem Cigarette nicotine dependence, uncomplicated F17.210 Active 29358954 Problem Anxiety F41.9 Active 21363940 Problem Bilateral headaches R51 Active 426046768 Problem Dorsalgia M54.9 Active 584472315 Problem Body lice infestation B85.1 Active 99001630 Problem Primary insomnia F51.01 Active 2524983 Problem Chronic depression F32.9 Active 917170856 Problem AIDS B20 Active 61148119 Problem COPD bronchitis J44.9 Active 58630592 Problem Intertrigo L30.4 Active 22042645 Problem Chronic pruritus L29.9 Active 434277167 Problem Other chronic pain G89.29 Active 01365811 Problem Migraine, unspecified, not intractable, without status migrainosus G43.909 Active 40389166 Problem Restless leg syndrome G25.81 Active 31415485 Problem Seasonal allergic rhinitis due to pollen J30.1 Active 14935654 Problem Slow transit constipation K59.01 Active 02720224 Problem Dermatitis L30.9 Active 74499496 Problem Primary hypothyroidism E03.9 Active 82812288 Problem Constipation by delayed colonic transit K59.01 Active 00546444 Problem Migraine with aura and without status migrainosus, not intractable G43.109 Active 5859913 ALLERGIES No Information SOCIAL HISTORY Never Assessed PLAN OF CARE VITAL SIGNS MEDICATIONS Medication Instructions Dosage Frequency Start Date End Date Duration Status Temazepam 30 MG Orally Once a day [...]
--- OUTSIDE RECORDS SUMMARY | 2017-03-12 07:10 | XMS REPORT ---
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 up operator prescription opiate use Z79.899 Active 697704489 Problem Insomnia G47.00 Active 564706919 Problem Cervicalgia M54.2 Active 656157726 Problem Ab[address] of the head R93.0 Active 998006177 Problem Low back pain M54.5 Active 582832766 Problem Cigarette nicotine dependence, uncomplicated F17.210 Active 23369364 Problem Anxiety F41.9 Active 83354193 Problem Bilateral headaches R51 Active 963679964 Problem Dorsalgia M54.9 Active 327814982 Problem Body lice infestation B85.1 Active 94529849 Problem Primary insomnia F51.01 Active 1074263 Problem Chronic depression F32.9 Active 358164108 Problem AIDS B20 Active 48027052 Problem COPD bronchitis J44.9 Active 11751296 Problem Intertrigo L30.4 Active 35739546 Problem Chronic pruritus L29.9 Active 823581660 Problem Other chronic pain G89.29 Active 26742856 Problem Migraine, unspecified, not intractable, without status migrainosus G43.909 Active 45348903 Problem Restless leg syndrome G25.81 Active 65276125 Problem Seasonal allergic rhinitis due to pollen J30.1 Active 29749364 Problem Slow transit constipation K59.01 Active 28919499 Problem Dermatitis L30.9 Active 60928899 Problem Primary hypothyroidism E03.9 Active 85778112 Problem Constipation by delayed colonic transit K59.01 Active 03879690 Problem Migraine with aura and without status migrainosus, not intractable G43.109 Active 9134131 ALLERGIES No Information SOCIAL HISTORY Never Assessed [...]
--- OUTSIDE RECORDS SUMMARY | 2017-03-12 07:10 | XMS REPORT ---
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 Active 749826184 Problem Insomnia G47.00 Active 500841959 Problem Cervicalgia M54.2 [address] of the head R93.0 Active 725806587 Problem Low back pain M54.5 Active 778305999 Problem Cigarette nicotine dependence, uncomplicated F17.210 Active 56240681 Problem Anxiety F41.9 Active 57538888 Problem Bilateral headaches R51 Active 343210292 Problem Dorsalgia M54.9 Active 943663792 Problem Body lice infestation B85.1 Active 83396510 Problem Primary insomnia F51.01 Active 3820001 Problem Chronic depression F32.9 Active 614624417 Problem AIDS B20 Active 71892402 Problem COPD bronchitis J44.9 Active 01535189 Problem Intertrigo L30.4 Active 25473271 Problem Chronic pruritus L29.9 Active 852769749 Problem Other chronic pain G89.29 Active 35983380 Problem Migraine, unspecified, not intractable, without status migrainosus G43.909 Active 16467244 Problem Restless leg syndrome G25.81 Active 25972310 Problem Seasonal allergic rhinitis due to pollen J30.1 Active 17644135 Problem Slow transit constipation K59.01 Active 59017892 Problem Dermatitis L30.9 Active 59013962 Problem Primary hypothyroidism E03.9 Active 88228564 Problem Constipation by delayed colonic transit K59.01 Active 01940443 Problem Migraine with aura and without status migrainosus, not intractable G43.109 Active 5148076 ALLERGIES No Information SOCIAL HISTORY Never Assessed [...]
--- OUTSIDE RECORDS SUMMARY | 2017-03-12 07:10 | XMS REPORT ---
Author Author Alessia Erickson [facility] Address [address], [place] [id number] Care Team Providers Care Multiple Effect Evaporator Operator Name Role Phone Alessia Erickson Unavailable PROBLEMS Type Condition ICD9-CM Code XLB79-SF Code Onset Dates Condition Status SNOMED Code Problem GERD (gastroesophageal reflux disease) K21.9 Active 775646723 Problem half-way prescription opiate use Z79.899 Active 774281320 Problem Cervicalgia M54.2 Active 698390132 Problem Insomnia G47.00 Active 185632644 Problem Generalized anxiety disorder F41.1 Active 17754319 Problem Ab[address] CT of the head R93.0 Active 863941072 Problem Low back pain M54.5 Active 858198952 Problem Anxiety F41.9 Active 86223097 Problem Cigarette nicotine dependence, uncomplicated F17.210 Active 89150345 Problem Bilateral headaches R51 Active 774974073 Problem Dorsalgia M54.9 Active 735215521 Problem Chronic pruritus L29.9 Active 219776368 Problem Primary insomnia F51.01 Active 9874769 Problem AIDS B20 Active 70094266 Problem Chronic depression F32.9 Active 892281240 Problem Intertrigo L30.4 Active 87501080 Problem COPD bronchitis J44.9 Active 04856026 Problem Body lice infestation B85.1 Active 65715421 Problem Other chronic pain G89.29 Active 39873626 Problem Migraine, unspecified, not intractable, without status migrainosus G43.909 Active 12686374 Problem Restless leg syndrome G25.81 Active 52454162 Problem Seasonal allergic rhinitis due to pollen J30.1 Active 99807902 Problem Slow transit constipation K59.01 Active 15581287 Problem Dermatitis L30.9 Active 99839520 Problem Primary hypothyroidism E03.9 Active 71232787 Problem Migraine with aura and without status migrainosus, not intractable G43.109 Active 8106439 Problem Constipation by delayed colonic transit K59.01 Active 75841314 ALLERGIES No Information SOCIAL HISTORY Never Assessed [...]
--- OUTSIDE RECORDS SUMMARY | 2017-03-12 07:12 | XMS REPORT | Continuity of Care Document ---
Author Author [facility] Organization [facility] Address Unknown Phone Unavailable Allergies Active Description [...] No Known Intolerances Drug Allergy Unknown NONE 10/18 Yes morphine morphine Drug Allergy Unknown UNKNOWN 04/17/2014 Yes No Known Drug Allergies No Known Drug Allergies Drug Allergy Unknown . 09/2014 Yes No Known Allergies No Known Allergies Drug Allergy Unknown N/A 2015 Medications There is no data. Problems Date Dx Coded Attending Type Code [...] Mcnulty MD F32.9 MAJOR DEPRESSIVE DISORDER, SINGLE EPISODE, UNSPECI 11/22/2015 Gilles Mcnulty MD I25.10 ATHSCL HEART DISEASE OF [place] CORONARY ARTERY W/O 11/22/2015 Gilles Mcnulty MD J44.1 CHRONIC OBSTRUCTIVE PULMONARY DISEASE W (ACUTE) EX 11/22/2015 [place] PRESTON, Gilles Dillard R07.9 CHEST PAIN, UNSPECIFIED Procedures Code Description [place] [address] LIGATE/STRIP LONG LEG VEI Toma PRESTON, Cole Leslie 02/17/2012 55366 PHLEB VEINS - EXTREM - TO Cole Chua MD 02/17/2012 34.91 THORACENTESIS Leila PRESTON, González Dillard 09/21/2012 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 BX Leila PRESTON, González Dillard 09/23/2012 45.16 ESOPHAGOGASTRODUODENOSCOPY [ EGD] W/CLOSED BIOPSY Franco Dennison MD 09/21 48.24 ENDOSCOPIC BIOPSY OF RECTUM Franco Dennison MD 09/21/2014 <section xmlns="urn:hl7-org:v3" xmlns:xsi="http://www.[employer].org /2001/XMLSchema-instance"> <templateId root="[email or web address]" / > <templateId root="[id number]" /> <code codeSystemName= "LOINC" codeSystem="[id number]" code="74197-8" displayName="Results" /> <title>Results</title> <text> <table> <thead> <tr> <th>Test</th> <th>Result</th> <th>Range</th> </tr> </thead> <tbody> <tr> <th colspan="10">CBC W/DIFF - 12/16 12:45</th> </tr> <tr> <td>EOSINOPHIL #</td> <td>0.1 k/cumm</td> <td>0.1-0.5</td> </tr> <tr> <td>EOSINOPHIL %</td> <td>1 %</td> <td>2-4</td> </tr> <tr> <td>GRANULOCYTE #</td> <td>5.3 k/cumm</td > <td>2.0-9.0</td> </tr> <tr> <td>GRANULOCYTE &# 37;</td> <td>76 %</td> <td>50-75</td> </tr> <tr> <td>LYMPHOCYTE #</td> <td>1.0 k/cumm</td> <td> 1.0-4.0</td> </tr> <tr> <td>LYMPHOCYTE %</td> <td>15 %</td> <td>20-30</td> </tr> <tr> < td>MEAN CELL HGB</td> <td>24.9 pg</td> <td>27.0-33.0</td> </tr> <tr> <td>MEAN CELL HGB CONCENTRATION</td> <td >31.6 g/dl</td> <td>32.0-36.0</td> </tr> <tr> < td>MEAN CELL VOLUME</td> <td>78.7 fl</td> <td>80.0-100.0</td> </tr> <tr> <td>MONOCYTE #</td> <td>0.6 k/cumm</ td> <td>0.1-1.0</td> </tr> <tr> <td>MONOCYTE &# 37;</td> <td>8 %</td> <td>4-6</td> </tr> <tr > <td>RED BLOOD CELL</td> <td>4.78 m/cumm</td> <td> 4.00-6.00</td> </tr> <tr> <td>RED CELL DISTRIBUTION WIDTH </td> <td>17.6 %</td> <td>11.0-15.6</td> </tr> <tr> <td>WHITE BLOOD CELL</td> <td>7.0 k/cumm</td> <td>5.0-10.0</td> </tr> <tr> <td>HEMOGLOBIN</td> <td>11.9 gm/dL</td> <td>12.0-16.0</td> </tr> <tr> <td>HEMATOCRIT</td> <td>37.6 %</td> <td>37.0-47.0< /td> </tr> <tr> <td>PLATELET COUNT</td> <td>303 k/cumm</td> <td>150-450</td> </tr> <tr> <th colspan="10">METABOLIC PANEL, BASIC - 12/17/11 12:45</th> </tr> < tr> <td>POTASSIUM</td> <td>3.9 mmol/L</td> <td>3.5- 5.3</td> </tr> <tr> <td>EST GFR (MDRD)</td> <td> > 60 mL/min</td> <td>> 59</td> </tr> <tr> <td>ANION GAP</td> <td>7 mmol/L</td> <td>5-15</td> </tr > <tr> <td>EST CrCl (CG)</td> <td>> 60 mL/min</td> <td>> 59</td> </tr> <tr> <td>GLUCOSE</td> <td>83 mg/dL</td> <td>70-99</td> </tr> <tr> <td>CALCIUM</td> <td>8.7 mg/dL</td> <td>8.5-10.1</td> </tr> <tr> <td>BLOOD UREA NITROGEN</td> <td>7 mg/dL </td> <td>7-20</td> </tr> <tr> <td>CREATININE</ td> <td>0.6 mg/dL</td> <td>0.6-1.0</td> </tr> < tr> <td>SODIUM</td> <td>138 mmol/L</td> <td>135-148</ td> </tr> <tr> <td>CHLORIDE</td> <td>103 mmol/L< /td> <td>98-110</td> </tr> <tr> <td>CARBON DIOXIDE</td> <td>28 mmol/L</td> <td>21-32</td> </tr> <tr> <th colspan="10">HEPATIC FUNCTION PANEL - 12/17/11 12:45</th > </tr> <tr> <td>BILI UNCONJUGATED</td> <td>0.2 mg/dL</td> <td>0.0-0.7</td> </tr> <tr> <td>AST/ SGOT</td> <td>31 Units/L</td> <td>10-37</td> </tr> <tr> <td>ALT/SGPT</td> <td>29 Units/L</td> <td>& lt; 66</td> </tr> <tr> <td>TOTAL PROTEIN</td> < td>6.9 gm/dL</td> <td>6.4-8.2</td> </tr> <tr> < td>ALBUMIN</td> <td>3.6 gm/dL</td> <td>3.4-5.0</td> </ tr> <tr> <td>BILI TOTAL</td> <td>0.2 mg/dL</td> <td>0.0-1.0</td> </tr> <tr> <td>ALKALINE PHOSPHATASE TOTAL</td> <td>100 Units/L</td> <td>50-136</td> </tr> <tr> <td>BILI CONJUGATED</td> <td>0.1 mg/dL</td> <td>0.0-0.3</td> </tr> <tr> < colspan="10">LIPASE - 12/17/11 12:45</th> </tr> <tr> <td>LIPASE</td> <td>124 Units/L</td> <td>73-393</td> </tr> <tr> <th colspan="10">AB H.PYLORI SCREEN - 12/17/11 12:45</th> </tr> <tr> <td>AB H.PYLORI SCREEN</td> <td>NEGATIVE </td> <td>NEGATIVE</td> </tr> <tr> <th colspan="10">UR TEST - 12/17/11 14:14</th> </tr> <tr> <td>UR TEST</td> <td>NEGATIVE </td> <td>NEGATIVE</td> </tr> <tr> <th colspan="10">UA MICROSCOPIC - 12/17/11 14:14</ th> </tr> <tr> <td>UA BACTERIA</td> <td>5+ </td > <td>NEGATIVE</td> </tr> <tr> <td>UA EPITHELIAL CELLS</td> <td>1+ epi/hpf</td> <td>0 - 1+</td> </tr> <tr> <td>UA RBC</td> <td>0-3 rbc/hpf</td> <td>0 - 3</td> </tr> <tr> <td>UA VOLUME FOR EXAM</ td> <td>12.0 mL</td> <td>(12mL STD)</td> </tr> < tr> <td>UA WBC</td> <td>0-1 wbc/hpf</td> <td>0 - 5</ td> </tr> <tr> <th colspan="10">URINE CULTURE - 12/17/11 14:14</th> </tr> <tr> <td>Uncategorized</td> <td > </td> <td /> </tr> <tr> <th colspan="10"> TEST, SERUM - 01/07/12 09:03</th> </tr> <tr> < td> TEST, SERUM</td> <td>NEGATIVE </td> <td>NEGATIVE< /td> </tr> <tr> < colspan="10">CHEM/HEM PROFILE- BEDSIDE - 10/19/13 00:39</th> </tr> <tr> <td>POTASSIUM</ td> <td>3.3 mmol/L</td> <td>3.5-5.3</td> </tr> < tr> <td>METHOD</td> <td>Bedside </td> <td /> < /tr> <tr> <td>ANION GAP</td> <td>18 mmol/L</td> <td>10-20</td> </tr> <tr> <td>METHOD</td> <td >Bedside </td> <td /> </tr> <tr> <td>GLUCOSE</td > <td>91 mg/dL</td> <td>70-99</td> </tr> <tr> <td>BLOOD UREA NITROGEN</td> <td>11 mg/dL</td> <td>7- 20</td> </tr> <tr> <td>CREATININE</td> <td>0.7 mg/dL</td> <td>0.6-1.0</td> </tr> <tr> <td> HEMOGLOBIN</td> <td>12.6 gm/dL</td> <td>12.0-16.0</td> </tr> <tr> <td>HEMATOCRIT</td> <td>37.0 %</td> <td>37.0-47.0</td> </tr> <tr> <td>SODIUM</td> <td>140 mmol/L</td> <td>135-148</td> </tr> <tr> <td>CHLORIDE</td> <td>106 mmol/L</td> <td>98-110</td> </tr> <tr> <td>CARBON DIOXIDE</td> <td>20 mmol/L< /td> <td>21-32</td> </tr> <tr> <td>CALCIUM IONIZED</td> <td>4.9 mg/dL</td> <td>4.5-5.3</td> </tr> <tr> < colspan="10">URINE CULTURE - 04/17/14 00:00</th> </tr> <tr> <td>Microbiology</td> <td> </td> <td /> </tr> <tr> < colspan="10">URINALYSIS, ROUTINE - 08/15/14 16:33</th> </tr> <tr> <td>UA LEUKOCYTE ESTERASE DIPSTICK</td> <td>NEGATIVE </td> <td>NEGATIVE</td> </tr> <tr> <td>UA NITRITE DIPSTICK</td> <td> POSITIVE </td> <td>NEGATIVE</td> </tr> <tr> <td> UA PROTEIN DIPSTICK</td> <td>NEGATIVE </td> <td>NEGATIVE</td> </tr> <tr> <td>UA GLUCOSE DIPSTICK</td> <td> NEGATIVE </td> <td>NEGATIVE</td> </tr> <tr> <td> UA KETONE DIPSTICK</td> <td>NEGATIVE </td> <td>NEGATIVE</td> </tr> <tr> <td>UA UROBILINOGEN DIPSTICK</td> <td >NORMAL </td> <td>NORMAL</td> </tr> <tr> <td>UA BILIRUBIN DIPSTICK</td> <td>NEGATIVE </td> <td>NEGATIVE</td> </tr> <tr> <td>UA BLOOD DIPSTICK</td> <td> NEGATIVE </td> <td>NEGATIVE</td> </tr> <tr> <td> UA SPECIFIC GRAVITY</td> <td>1.025 </td> <td>1.015-1.025</td> </tr> <tr> <td>UR PH</td> <td>5.5 </td> <td>5.0-7.0</td> </tr> <tr> <th colspan="10">UA MICROSCOPIC - 08/15/14 16:33</th> </tr> <tr> <td>UA BACTERIA</td> <td>3+ </td> <td>NEGATIVE</td> </tr> <tr> <td>UA EPITHELIAL CELLS</td> <td>4+ epi/hpf</td> <td>0 - 1+</td> </tr> <tr> <td>UA MUCUS</td> <td>3+ </td> <td>NEG TO 1+</td> </tr> <tr> < td>UA RBC</td> <td>0-3 rbc/hpf</td> <td>0 - 3</td> </tr > <tr> <td>UA VOLUME FOR EXAM</td> <td>12.0 mL</td> <td>(12mL STD)</td> </tr> <tr> <td>UA WBC</td> <td>5-10 wbc/hpf</td> <td>0 - 5</td> </tr> <tr> <th colspan="10">UR TEST - 08/15/14 16:35</th> </tr> <tr> <td>UR TEST</td> <td>NEGATIVE </td> <td>NEGATIVE</td> </tr> <tr> <th colspan="10"> TEST, SERUM - 09/21/14 15:00</th> </tr> <tr> < td> TEST, SERUM</td> <td>NEGATIVE </td> <td>NEGATIVE< /td> </tr> <tr> <th colspan="10">GRAM STAIN - 09/21/14 17 :08</th> </tr> <tr> <td>Microbiology</td> <td> < /td> <td /> </tr> <tr> <th colspan="10"> URINALYSIS, ROUTINE - 10/10/14 09:21</th> </tr> <tr> <td> UA LEUKOCYTE ESTERASE DIPSTICK</td> <td>NEGATIVE </td> <td> NEGATIVE</td> </tr> <tr> <td>UA NITRITE DIPSTICK</td> <td>POSITIVE </td> <td>NEGATIVE</td> </tr> <tr> <td>UA PROTEIN DIPSTICK</td> <td>NEGATIVE </td> <td> NEGATIVE</td> </tr> <tr> <td>UA GLUCOSE DIPSTICK</td> <td>NEGATIVE </td> <td>NEGATIVE</td> </tr> <tr> <td>UA KETONE DIPSTICK</td> <td>NEGATIVE </td> <td> NEGATIVE</td> </tr> <tr> <td>UA UROBILINOGEN DIPSTICK</td > <td>NORMAL </td> <td>NORMAL</td> </tr> <tr> <td>UA BILIRUBIN DIPSTICK</td> <td>NEGATIVE </td> <td> NEGATIVE</td> </tr> <tr> <td>UA BLOOD DIPSTICK</td> <td>1+ </td> <td>NEGATIVE</td> </tr> <tr> < td>UA SPECIFIC GRAVITY</td> <td>>=1.030 </td> <td>1.015- 1.025</td> </tr> <tr> <td>UR PH</td> <td>5.0 </ td> <td>5.0-7.0</td> </tr> <tr> <td>Microbiology </td> <td> </td> <td /> </tr> <tr> < colspan="10">UA MICROSCOPIC - 10/10/14 09:21</th> </tr> <tr> <td>UA BACTERIA</td> <td>3+ </td> <td>NEGATIVE</td> </tr> <tr> <td>UA EPITHELIAL CELLS</td> <td>2+ epi/ hpf</td> <td>0 - 1+</td> </tr> <tr> <td>UA MUCUS </td> <td>1+ </td> <td>NEG TO 1+</td> </tr> <tr > <td>UA RBC</td> <td>0-3 rbc/hpf</td> <td>0 - 3</td > </tr> <tr> <td>UA VOLUME FOR EXAM</td> <td> 12.0 mL</td> <td>(12mL STD)</td> </tr> <tr> <td> UA WBC</td> <td>2-5 wbc/hpf</td> <td>0 - 5</td> </tr> <tr> < colspan="10">CBC W/DIFF - 10/10/14 09:21</th> </ tr> <tr> <td>EOSINOPHIL #</td> <td>0.1 k/cumm</td> <td>0.1-0.5</td> </tr> <tr> <td>EOSINOPHIL %</ td> <td>1 %</td> <td>2-4</td> </tr> <tr> <td>GRANULOCYTE #</td> <td>3.9 k/cumm</td> <td>2.0-9.0< /td> </tr> <tr> <td>GRANULOCYTE %</td> <td> 67 %</td> <td>50-75</td> </tr> <tr> <td> LYMPHOCYTE #</td> <td>1.2 k/cumm</td> <td>1.0-4.0</td> </tr> <tr> <td>LYMPHOCYTE %</td> <td>20 %</td> <td>20-30</td> </tr> <tr> <td>MEAN CELL HGB</td > <td>29.5 pg</td> <td>27.0-33.0</td> </tr> <tr > <td>MEAN CELL HGB CONCENTRATION</td> <td>33.6 g/dL</td> <td>32.0-37.0</td> </tr> <tr> <td>MEAN CELL VOLUME< /td> <td>87.8 fl</td> <td>80.0-100.0</td> </tr> <tr> <td>MONOCYTE #</td> <td>0.7 k/cumm</td> <td>0.1- 1.0</td> </tr> <tr> <td>MONOCYTE %</td> <td> 11 %</td> <td>4-6</td> </tr> <tr> <td>RED BLOOD CELL</td> <td>4.92 m/cumm</td> <td>4.00-6.00</td> </tr> <tr> <td>RED CELL DISTRIBUTION WIDTH</td> <td> 14.0 %</td> <td>11.0-15.6</td> </tr> <tr> < td>WHITE BLOOD CELL</td> <td>5.8 k/cumm</td> <td>5.0-10.0</td > </tr> <tr> <td>HEMOGLOBIN</td> <td>14.5 gm/dL< /td> <td>12.0-16.0</td> </tr> <tr> <td> HEMATOCRIT</td> <td>43.2 %</td> <td>37.0-47.0</td> </tr> <tr> <td>PLATELET COUNT</td> <td>220 k/cumm</td> <td>150-400</td> </tr> <tr> <td>Microbiology</ td> <td> </td> <td /> </tr> <tr> <th colspan="10">HEPATIC FUNCTION PANEL - 10/10/14 09:21</th> </tr> < tr> <td>BILI UNCONJUGATED</td> <td>2.2 mg/dL</td> <td >0.0-0.7</td> </tr> <tr> <td>AST/SGOT</td> <td> 93 Units/L</td> <td>10-37</td> </tr> <tr> <td> ALT/SGPT</td> <td>47 Units/L</td> <td>< 66</td> </tr > <tr> <td>TOTAL PROTEIN</td> <td>6.5 gm/dL</td> <td>6.4-8.2</td> </tr> <tr> <td>ALBUMIN</td> <td>3.6 gm/dL</td> <td>3.4-5.0</td> </tr> <tr> <td>BILI TOTAL</td> <td>2.6 mg/dL</td> <td>0.0-1.0</td> </tr> <tr> <td>ALKALINE PHOSPHATASE TOTAL</td> <td> 113 IU/L</td> <td>45-117</td> </tr> <tr> <td> BILI CONJUGATED</td> <td>0.4 mg/dL</td> <td>0.0-0.3</td> </tr> <tr> <td>Microbiology</td> <td> </td> <td /> </tr> <tr> <th colspan="10">LIPASE - 10/10/14 09 :21</th> </tr> <tr> <td>LIPASE</td> <td>119 Units/L</td> <td>73-393</td> </tr> <tr> <th colspan="10">UR TEST - 10/10/14 09:22</th> </tr> <tr> <td>UR TEST</td> <td>NEGATIVE </td> <td> NEGATIVE</td> </tr> <tr> <td>Microbiology</td> < td> </td> <td /> </tr> <tr> < colspan="10"> CHEM/HEM PROFILE-BEDSIDE - 10/10/14 09:27</th> </tr> <tr> <td>POTASSIUM</td> <td>3.9 mmol/L</td> <td>3.5-5.3</td> </tr> <tr> <td>METHOD</td> <td>Bedside </td> <td /> </tr> <tr> <td>ANION GAP</td> <td>18 mmol/L</td> <td>10-20</td> </tr> <tr> <td>METHOD </td> <td>Bedside </td> <td /> </tr> <tr> <td>GLUCOSE</td> <td>101 mg/dL</td> <td>70-99</td> </tr> <tr> <td>BLOOD UREA NITROGEN</td> <td>6 mg/dL</td > <td>7-20</td> </tr> <tr> <td>CREATININE</td> <td>0.6 mg/dL</td> <td>0.6-1.0</td> </tr> <tr> <td>HEMOGLOBIN</td> <td>15.0 gm/dL</td> <td>12.0-16.0 </td> </tr> <tr> <td>HEMATOCRIT</td> <td>44.0 &# 37;</td> <td>37.0-47.0</td> </tr> <tr> <td> SODIUM</td> <td>139 mmol/L</td> <td>135-148</td> </tr> <tr> <td>CHLORIDE</td> <td>106 mmol/L</td> < td>98-110</td> </tr> <tr> <td>CARBON DIOXIDE</td> <td>20 mmol/L</td> <td>21-32</td> </tr> <tr> <td>CALCIUM IONIZED</td> <td>4.5 mg/dL</td> <td>4.5-5.3</td> </tr> <tr> <td>Microbiology</td> <td> </td> <td /> </tr> <tr> <th colspan="10">TROPONIN I BEDSIDE - 11/05/14 00:49</th> </tr> <tr> <td>METHOD</td> <td>Bedside </td> <td /> </tr> <tr> < td>TROPONIN I</td> <td>< 0.04 ng/mL</td> <td>< 0.11</td > </tr> <tr> <td>Microbiology</td> <td> </td> <td /> </tr> <tr> <th colspan="10">CBC W/DIFF - 11/05/14 00:50</th> </tr> <tr> <td>GRANULOCYTE #</td> <td>9.0 k/cumm</td> <td>2.0-9.0</td> </tr> <tr> <td>GRANULOCYTE %</td> <td>80 %</td> <td>50-75 </td> </tr> <tr> <td>LYMPHOCYTE #</td> <td>1.4 k /cumm</td> <td>1.0-4.0</td> </tr> <tr> <td> LYMPHOCYTE %</td> <td>12 %</td> <td>20-30</td> </tr> <tr> <td>MEAN CELL HGB</td> <td>29.8 pg</td> <td>27.0-33.0</td> </tr> <tr> <td>MEAN CELL HGB CONCENTRATION</td> <td>34.1 g/dL</td> <td>32.0-37.0</td> </tr> <tr> <td>MEAN CELL VOLUME</td> <td>87.5 fl</td > <td>80.0-100.0</td> </tr> <tr> <td>MONOCYTE #< /td> <td>0.9 k/cumm</td> <td>0.1-1.0</td> </tr> <tr> <td>MONOCYTE %</td> <td>8 %</td> <td>4-6 </td> </tr> <tr> <td>RED BLOOD CELL</td> <td> 4.49 m/cumm</td> <td>4.00-6.00</td> </tr> <tr> < td>RED CELL DISTRIBUTION WIDTH</td> <td>14.6 %</td> <td> 11.0-15.6</td> </tr> <tr> <td>WHITE BLOOD CELL</td> <td>11.3 k/cumm</td> <td>5.0-10.0</td> </tr> <tr> <td>HEMOGLOBIN</td> <td>13.4 gm/dL</td> <td>12.0-16.0< /td> </tr> <tr> <td>HEMATOCRIT</td> <td>39.3 &# 37;</td> <td>37.0-47.0</td> </tr> <tr> <td> PLATELET COUNT</td> <td>246 k/cumm</td> <td>150-400</td> </tr> <tr> <td>Microbiology</td> <td> </td> <td /> </tr> <tr> <th colspan="10">HEPATIC FUNCTION PANEL - 11/05/14 00:50</th> </tr> <tr> <td>BILI UNCONJUGATED</td> <td>0.4 mg/dL</td> <td>0.0-0.7</td> < /tr> <tr> <td>AST/SGOT</td> <td>10 Units/L</td> <td>10-37</td> </tr> <tr> <td>ALT/SGPT</td> < td>15 Units/L</td> <td>< 66</td> </tr> <tr> < td>TOTAL PROTEIN</td> <td>6.1 gm/dL</td> <td>6.4-8.2</td> </tr> <tr> <td>ALBUMIN</td> <td>3.2 gm/dL</td> <td>3.4-5.0</td> </tr> <tr> <td>BILI TOTAL</td> <td>0.5 mg/dL</td> <td>0.0-1.0</td> </tr> <tr> <td>ALKALINE PHOSPHATASE TOTAL</td> <td>89 IU/L</td> < td>45-117</td> </tr> <tr> <td>BILI CONJUGATED</td> <td>0.1 mg/dL</td> <td>0.0-0.3</td> </tr> <tr> <td>Microbiology</td> <td> </td> <td /> </tr> <tr> <th colspan="10">LIPASE - 11/05/14 00:50</th> </tr> <tr> <td>LIPASE</td> <td>133 Units/L</td> <td>73- 393</td> </tr> <tr> <th colspan="10">CHEM/HEM PROFILE- BEDSIDE - 11/05/14 00:52</th> </tr> <tr> <td>POTASSIUM</ td> <td>3.3 mmol/L</td> <td>3.5-5.3</td> </tr> < tr> <td>METHOD</td> <td>Bedside </td> <td /> < /tr> <tr> <td>ANION GAP</td> <td>19 mmol/L</td> <td>10-20</td> </tr> <tr> <td>METHOD</td> <td >Bedside </td> <td /> </tr> <tr> <td>GLUCOSE</td > <td>120 mg/dL</td> <td>70-99</td> </tr> <tr> <td>BLOOD UREA NITROGEN</td> <td>10 mg/dL</td> <td>7- 20</td> </tr> <tr> <td>CREATININE</td> <td>0.6 mg/dL</td> <td>0.6-1.0</td> </tr> <tr> <td> HEMOGLOBIN</td> <td>12.9 gm/dL</td> <td>12.0-16.0</td> </tr> <tr> <td>HEMATOCRIT</td> <td>38.0 %</td> <td>37.0-47.0</td> </tr> <tr> <td>SODIUM</td> <td>143 mmol/L</td> <td>135-148</td> </tr> <tr> <td>CHLORIDE</td> <td>107 mmol/L</td> <td>98-110</td> </tr> <tr> <td>CARBON DIOXIDE</td> <td>22 mmol/L< /td> <td>21-32</td> </tr> <tr> <td>CALCIUM IONIZED</td> <td>4.5 mg/dL</td> <td>4.5-5.3</td> </tr> <tr> <td>Microbiology</td> <td> </td> <td /> </tr> <tr> <th colspan="10">URINALYSIS, ROUTINE - 02:22</th> </tr> <tr> <td>UA LEUKOCYTE ESTERASE DIPSTICK</td> <td>NEGATIVE </td> <td>NEGATIVE</td> </tr > <tr> <td>UA NITRITE DIPSTICK</td> <td>POSITIVE </td> <td>NEGATIVE</td> </tr> <tr> <td>UA PROTEIN DIPSTICK</td> <td>NEGATIVE </td> <td>NEGATIVE</td> </tr > <tr> <td>UA GLUCOSE DIPSTICK</td> <td>NEGATIVE </td> <td>NEGATIVE</td> </tr> <tr> <td>UA KETONE DIPSTICK</td> <td>NEGATIVE </td> <td>NEGATIVE</td> </tr > <tr> <td>UA UROBILINOGEN DIPSTICK</td> <td>NORMAL </ td> <td>NORMAL</td> </tr> <tr> <td>UA BILIRUBIN DIPSTICK</td> <td>NEGATIVE </td> <td>NEGATIVE</td> </tr > <tr> <td>UA BLOOD DIPSTICK</td> <td>1+ </td> <td>NEGATIVE</td> </tr> <tr> <td>UA SPECIFIC GRAVITY</ td> <td>1.025 </td> <td>1.015-1.025</td> </tr> < tr> <td>UR PH</td> <td>5.5 </td> <td>5.0-7.0</td> </tr> <tr> <td>Microbiology</td> <td> </td> <td /> </tr> <tr> < colspan="10">UA MICROSCOPIC - 11/05/14 02:22</th> </tr> <tr> <td>UA BACTERIA</td> <td>5+ </td> <td>NEGATIVE</td> </tr> <tr> < td>UA EPITHELIAL CELLS</td> <td>3+ epi/hpf</td> <td>0 - 1+</td > </tr> <tr> <td>UA MUCUS</td> <td>3+ </td> <td>NEG TO 1+</td> </tr> <tr> <td>UA RBC</td> <td>3-5 rbc/hpf</td> <td>0 - 3</td> </tr> <tr> <td>UA VOLUME FOR EXAM</td> <td>12.0 mL</td> <td>(12mL STD)</td> </tr> <tr> <td>UA WBC</td> <td>0 wbc/ hpf</td> <td>0 - 5</td> </tr> <tr> <th colspan= "10">UR TEST - 11/05/14 02:24</th> </tr> <tr> < td>UR TEST</td> <td>NEGATIVE </td> <td>NEGATIVE</td > </tr> <tr> <td>Microbiology</td> <td> </td> <td /> </tr> <tr> <th colspan="10">URINALYSIS, ROUTINE - 11/13/15 14:37</th> </tr> <tr> <td>UA LEUKOCYTE ESTERASE DIPSTICK</td> <td>3+ </td> <td>NEGATIVE</td > </tr> <tr> <td>UA NITRITE DIPSTICK</td> <td> POSITIVE </td> <td>NEGATIVE</td> </tr> <tr> <td> UA PROTEIN DIPSTICK</td> <td>NEGATIVE </td> <td>NEGATIVE</td> </tr> <tr> <td>UA GLUCOSE DIPSTICK</td> <td> NEGATIVE </td> <td>NEGATIVE</td> </tr> <tr> <td> UA KETONE DIPSTICK</td> <td>NEGATIVE </td> <td>NEGATIVE</td> </tr> <tr> <td>UA UROBILINOGEN DIPSTICK</td> <td >NORMAL </td> <td>NORMAL</td> </tr> <tr> <td>UA BILIRUBIN DIPSTICK</td> <td>NEGATIVE </td> <td>NEGATIVE</td> </tr> <tr> <td>UA BLOOD DIPSTICK</td> <td>TRACE </td> <td>NEGATIVE</td> </tr> <tr> <td>UA SPECIFIC GRAVITY</td> <td>1.025 </td> <td>1.015-1.025</td> </tr> <tr> <td>UR PH</td> <td>6.0 </td> < td>5.0-7.0</td> </tr> <tr> <th colspan="10">UA MICROSCOPIC - 11/13/15 14:37</th> </tr> <tr> <td>UA BACTERIA</td> <td>5+ </td> <td>NEGATIVE</td> </tr> <tr> <td>UA EPITHELIAL CELLS</td> <td>2+ epi/hpf</td> <td>0 - 1+</td> </tr> <tr> <td>UA RBC</td> <td>3-5 rbc/hpf</td> <td>0 - 3</td> </tr> <tr> <td>UA VOLUME FOR EXAM</td> <td>12.0 mL</td> <td>(12mL STD)< /td> </tr> <tr> <td>UA WBC</td> <td>10-20 wbc/ hpf</td> <td>0 - 5</td> </tr> <tr> <th colspan= "10">HEPATIC FUNCTION PANEL - 11/21/15 19:25</th> </tr> <tr> <td>BILI UNCONJUGATED</td> <td>0.2 mg/dL</td> <td>0.0-0.7 </td> </tr> <tr> <td>AST/SGOT</td> <td>24 Units/ L</td> <td>10-37</td> </tr> <tr> <td>ALT/SGPT</ td> <td>23 Units/L</td> <td>< 66</td> </tr> < tr> <td>TOTAL PROTEIN</td> <td>6.8 gm/dL</td> <td>6.4 -8.2</td> </tr> <tr> <td>ALBUMIN</td> <td>2.7 gm /dL</td> <td>3.4-5.0</td> </tr> <tr> <td>BILI TOTAL</td> <td>0.3 mg/dL</td> <td>0.0-1.0</td> </tr> <tr> <td>ALKALINE PHOSPHATASE TOTAL</td> <td>81 IU/L</td > <td>45-117</td> </tr> <tr> <td>BILI CONJUGATED </td> <td>< 0.1 mg/dL</td> <td>0.0-0.3</td> </tr> <tr> < colspan="10">LIPASE - 11/21/15 19:25</th> </tr> <tr> <td>LIPASE</td> <td>121 Units/L</td> <td> 73-393</td> </tr> <tr> < colspan="10">CREATINE KINASE ( CK/CPK) - 11/21/15 19:25</th> </tr> <tr> <td>CREATINE KINASE (CK/CPK)</td> <td>68 Units/L</td> <td>< 193</td> </tr> <tr> < colspan="10">AG LEGIONELLA URINE - 11/21/15 20:44</th> </tr> <tr> <td>Microbiology</td> <td > </td> <td /> </tr> <tr> < colspan="10"> BLOOD CULTURE - 11/22/15 01:00</th> </tr> <tr> <td> Microbiology</td> <td> </td> <td /> </tr> <tr> < colspan="10">BC REFLEX LACTIC ACID - 11/22/15 01:09</th> </ tr> <tr> <td>LACTIC ACID</td> <td>2.8 mmol/L</td> <td>0.5-2.0</td> </tr> <tr> <th colspan="10">BLOOD CULTURE - 11/22/15 01:09</th> </tr> <tr> <td>Microbiology </td> <td> </td> <td /> </tr> <tr> <th colspan="10">LACTIC ACID - 11/22/15 04:59</th> </tr> <tr> <td>LACTIC ACID</td> <td>1.5 mmol/L</td> <td>0.5-2.0</td> </tr> <tr> <th colspan="10">CD4/8 RATIO - 11/22/15 04:59</ th> </tr> <tr> <td>CD 3/4 POSITIVE</td> <td>19 & #37;</td> <td>34-68</td> </tr> <tr> <td>CD 3/4 ABSOLUTE</td> <td>58 #</td> <td>250-2400</td> </tr> <tr> <td>CD 3/8 POSITIVE</td> <td>48 %</td> <td>6-41</td> </tr> <tr> <td>CD 3/8 ABSOLUTE</td> <td>146 #</td> <td>150-1800</td> </tr> <tr> < td>CD 4/8 RATIO</td> <td>0.4 </td> <td>0.6-4.0</td> </ tr> <tr> <th colspan="10">CBC W/DIFF - 11/22/15 08:31</th> </tr> <tr> <td>COMMENT</td> <td>REVIEWED </td> <td /> </tr> <tr> <td>GRANULOCYTE #</td> < td>3.4 k/cumm</td> <td>2.0-9.0</td> </tr> <tr> < td>GRANULOCYTE %</td> <td>91 %</td> <td>50-75</td> </tr> <tr> <td>LYMPHOCYTE #</td> <td>0.3 k/cumm</ td> <td>1.0-4.0</td> </tr> <tr> <td>LYMPHOCYTE & #37;</td> <td>8 %</td> <td>20-30</td> </tr> <tr> <td>MEAN CELL HGB</td> <td>28.3 pg</td> <td>27.0 -33.0</td> </tr> <tr> <td>MEAN CELL HGB CONCENTRATION</td > <td>32.2 g/dL</td> <td>32.0-37.0</td> </tr> < tr> <td>MEAN CELL VOLUME</td> <td>87.8 fl</td> <td> 80.0-100.0</td> </tr> <tr> <td>MONOCYTE #</td> < td>0.0 k/cumm</td> <td>0.1-1.0</td> </tr> <tr> < td>MONOCYTE %</td> <td>1 %</td> <td>4-6</td> </ tr> <tr> <td>RED BLOOD CELL</td> <td>4.03 m/cumm</td> <td>4.00-6.00</td> </tr> <tr> <td>RED CELL DISTRIBUTION WIDTH</td> <td>16.1 %</td> <td>11.0-15.6</td > </tr> <tr> <td>WHITE BLOOD CELL</td> <td>3.8 k /cumm</td> <td>5.0-10.0</td> </tr> <tr> <td> HEMOGLOBIN</td> <td>11.4 gm/dL</td> <td>12.0-16.0</td> </tr> <tr> <td>HEMATOCRIT</td> <td>35.4 %</td> <td>37.0-47.0</td> </tr> <tr> <td>PLATELET COUNT</ td> <td>323 k/cumm</td> <td>150-400</td> </tr> < tr> <th colspan="10">METABOLIC PANEL, COMPREHN - 11/22/15 08:31</th> </tr> <tr> <td>POTASSIUM</td> <td>3.5 mmol/L</td > <td>3.5-5.3</td> </tr> <tr> <td>EST GFR (MDRD) </td> <td>> 60 mL/min</td> <td>> 59</td> </tr> <tr> <td>ANION GAP</td> <td>7 mmol/L</td> <td>5 -15</td> </tr> <tr> <td>EST CrCl (CG)</td> <td>& gt; 60 mL/min</td> <td>> 59</td> </tr> <tr> < td>GLUCOSE</td> <td>230 mg/dL</td> <td>70-99</td> </tr > <tr> <td>CALCIUM</td> <td>8.3 mg/dL</td> <td >8.5-10.1</td> </tr> <tr> <td>BLOOD UREA NITROGEN</td> <td>12 mg/dL</td> <td>7-20</td> </tr> <tr> <td>CREATININE</td> <td>0.6 mg/dL</td> <td>0.6-1.0</td> </tr> <tr> <td>SODIUM</td> <td>141 mmol/L</td> <td>135-148</td> </tr> <tr> <td>CHLORIDE</td> <td>108 mmol/L</td> <td>98-110</td> </tr> <tr> <td>AST/SGOT</td> <td>13 Units/L</td> <td>10-37</td> </tr> <tr> <td>ALT/SGPT</td> <td>21 Units/L</td> <td>< 66</td> </tr> <tr> <td>CARBON DIOXIDE< /td> <td>26 mmol/L</td> <td>21-32</td> </tr> <tr > <td>TOTAL PROTEIN</td> <td>6.0 gm/dL</td> <td>6.4- 8.2</td> </tr> <tr> <td>ALBUMIN</td> <td>2.4 gm/ dL</td> <td>3.4-5.0</td> </tr> <tr> <td>BILI TOTAL</td> <td>< 0.1 mg/dL</td> <td>0.0-1.0</td> </ tr> <tr> <td>ALKALINE PHOSPHATASE TOTAL</td> <td>69 IU/ L</td> <td>45-117</td> </tr> <tr> <th colspan= "10">PHOSPHORUS - 11/22/15 08:31</th> </tr> <tr> <td> PHOSPHORUS</td> <td>2.3 mg/dL</td> <td>2.5-4.9</td> </ tr> <tr> <th colspan="10">MAGNESIUM - 11/22/15 08:31</th> </tr> <tr> <td>MAGNESIUM</td> <td>1.8 mg/dL</td> <td>1.8-2.4</td> </tr> <tr> <th colspan="10"> LIPASE - 11/22/15 08:31</th> </tr> <tr> <td>LIPASE</td> <td>150 Units/L</td> <td>73-393</td> </tr> <tr> <th colspan="10">VIRUS RESPIRATORY PROFILE - 11/22/15 08:33</th> </tr> <tr> <td>Microbiology</td> <td> </td> <td /> </tr> <tr> <th colspan="10">CBC - 11/23/15 04:28 </th> </tr> <tr> <td>MEAN CELL HGB</td> <td> 28.5 pg</td> <td>27.0-33.0</td> </tr> <tr> <td> MEAN CELL HGB CONCENTRATION</td> <td>32.4 g/dL</td> <td>32.0- 37.0</td> </tr> <tr> <td>MEAN CELL VOLUME</td> < td>88.1 fl</td> <td>80.0-100.0</td> </tr> <tr> < td>RED BLOOD CELL</td> <td>3.86 m/cumm</td> <td>4.00-6.00</td > </tr> <tr> <td>RED CELL DISTRIBUTION WIDTH</td> <td>16.1 %</td> <td>11.0-15.6</td> </tr> <tr> <td>WHITE BLOOD CELL</td> <td>14.5 k/cumm</td> <td>5.0- 10.0</td> </tr> <tr> <td>HEMOGLOBIN</td> <td> 11.0 gm/dL</td> <td>12.0-16.0</td> </tr> <tr> < td>HEMATOCRIT</td> <td>34.0 %</td> <td>37.0-47.0</td> </tr> <tr> <td>PLATELET COUNT</td> <td>371 k/cumm</ td> <td>150-400</td> </tr> <tr> <th colspan="10 ">RENAL FUNCTION PANEL - 11/23/15 04:28</th> </tr> <tr> < td>POTASSIUM</td> <td>4.3 mmol/L</td> <td>3.5-5.3</td> </tr> <tr> <td>EST GFR (MDRD)</td> <td>> 60 mL/min</ td> <td>> 59</td> </tr> <tr> <td>ANION GAP</ td> <td>7 mmol/L</td> <td>5-15</td> </tr> <tr> <td>EST CrCl (CG)</td> <td>> 60 mL/min</td> <td>& gt; 59</td> </tr> <tr> <td>GLUCOSE</td> <td>156 mg/dL</td> <td>70-99</td> </tr> <tr> <td>CALCIUM </td> <td>8.3 mg/dL</td> <td>8.5-10.1</td> </tr> <tr> <td>BLOOD UREA NITROGEN</td> <td>10 mg/dL</td> <td>7-20</td> </tr> <tr> <td>CREATININE</td> < td>0.5 mg/dL</td> <td>0.6-1.0</td> </tr> <tr> < td>SODIUM</td> <td>142 mmol/L</td> <td>135-148</td> </ tr> <tr> <td>CHLORIDE</td> <td>106 mmol/L</td> <td>98-110</td> </tr> <tr> <td>CARBON DIOXIDE</td> <td>29 mmol/L</td> <td>21-32</td> </tr> <tr> <td>ALBUMIN</td> <td>2.2 gm/dL</td> <td>3.4-5.0</td> </tr> <tr> <td>PHOSPHORUS</td> <td>2.6 mg/dL</td> <td>2.5-4.9</td> </tr> <tr> < colspan="10"> MAGNESIUM - 11/23/15 04:28</th> </tr> <tr> <td>MAGNESIUM< /td> <td>1.9 mg/dL</td> <td>1.8-2.4</td> </tr> < tr> <th colspan="10">RENAL FUNCTION PANEL - 11/24/15 04:39</th> </tr> <tr> <td>POTASSIUM</td> <td>3.7 mmol/L</td> <td>3.5-5.3</td> </tr> <tr> <td>EST GFR (MDRD)</td> <td>> 60 mL/min</td> <td>> 59</td> </tr> <tr> <td>ANION GAP</td> <td>2 mmol/L</td> <td>5-15</ td> </tr> <tr> <td>EST CrCl (CG)</td> <td>> 60 mL/min</td> <td>> 59</td> </tr> <tr> <td> GLUCOSE</td> <td>98 mg/dL</td> <td>70-99</td> </tr> <tr> <td>CALCIUM</td> <td>7.8 mg/dL</td> <td>8.5 -10.1</td> </tr> <tr> <td>BLOOD UREA NITROGEN</td> <td>17 mg/dL</td> <td>7-20</td> </tr> <tr> < td>CREATININE</td> <td>0.5 mg/dL</td> <td>0.6-1.0</td> </tr> <tr> <td>SODIUM</td> <td>139 mmol/L</td> <td>135-148</td> </tr> <tr> <td>CHLORIDE</td> <td>103 mmol/L</td> <td>98-110</td> </tr> <tr> < td>CARBON DIOXIDE</td> <td>34 mmol/L</td> <td>21-32</td> </tr> <tr> <td>ALBUMIN</td> <td>2.3 gm/dL</td> <td>3.4-5.0</td> </tr> <tr> <td>PHOSPHORUS</td> <td>2.8 mg/dL</td> <td>2.5-4.9</td> </tr> <tr> < colspan="10">MAGNESIUM - 11/24/15 04:39</th> </tr> <tr> <td>MAGNESIUM</td> <td>2.0 mg/dL</td> <td>1.8-2.4</ td> </tr> <tr> < colspan="10">CBC W/DIFF - 11/24/15 04: 39</th> </tr> <tr> <td>GRANULOCYTE #</td> <td> 7.6 k/cumm</td> <td>2.0-9.0</td> </tr> <tr> <td> GRANULOCYTE %</td> <td>79 %</td> <td>50-75</td> </tr> <tr> <td>LYMPHOCYTE #</td> <td>1.2 k/cumm</td> <td>1.0-4.0</td> </tr> <tr> <td>LYMPHOCYTE &#37 ;</td> <td>13 %</td> <td>20-30</td> </tr> < tr> <td>MEAN CELL HGB</td> <td>28.4 pg</td> <td>27.0- 33.0</td> </tr> <tr> <td>MEAN CELL HGB CONCENTRATION</td > <td>31.7 g/dL</td> <td>32.0-37.0</td> </tr> < tr> <td>MEAN CELL VOLUME</td> <td>89.5 fl</td> <td> 80.0-100.0</td> </tr> <tr> <td>MONOCYTE #</td> < td>0.6 k/cumm</td> <td>0.1-1.0</td> </tr> <tr> < td>MONOCYTE %</td> <td>6 %</td> <td>4-6</td> </ tr> <tr> <td>RED BLOOD CELL</td> <td>3.73 m/cumm</td> <td>4.00-6.00</td> </tr> <tr> <td>RED CELL DISTRIBUTION WIDTH</td> <td>17.1 %</td> <td>11.0-15.6</td > </tr> <tr> <td>WHITE BLOOD CELL</td> <td>9.6 k /cumm</td> <td>5.0-10.0</td> </tr> <tr> <td> HEMOGLOBIN</td> <td>10.6 gm/dL</td> <td>12.0-16.0</td> </tr> <tr> <td>HEMATOCRIT</td> <td>33.4 %</td> <td>37.0-47.0</td> </tr> <tr> <td>PLATELET COUNT</ td> <td>407 k/cumm</td> <td>150-400</td> </tr> < tr> <th colspan="10">OVA AND PARASITES - 11/24/15 14:00</th> </ tr> <tr> <td>Microbiology</td> <td> </td> <td /> </tr> </tbody> </table> </text> <entry> <organizer moodCode="EVN" classCode="BATTERY"> <templateId root= "2.16.840.1.478647.10..22.4.1" /> <id nullFlavor="NA" /> <code codeSystem="local" code="CBCD" displayName="CBC W/DIFF" /> <statusCode code ="completed" /> <component> <observation moodCode="EVN" classCode= "OBS"> <templateId root="2.16.840.1.787859.10..22.4.2" /> < id nullFlavor="NA" /> <code codeSystem="local" code="EO#" displayName= "EOSINOPHIL #" /> <statusCode code="completed" /> < effectiveTime value="[id number]" /> <value unit="k/cumm" xsi:type="PQ " value="0.1" /> <referenceRange> <observationRange> <text>0.1-0.5</text> </observationRange> </ referenceRange> </observation> </component> <component> <observation moodCode="EVN" classCode="OBS"> <templateId root= "2.16.840.1.847393.10..22.4.2" /> <id nullFlavor="NA" /> < code codeSystem="local" code="EO%" displayName="EOSINOPHIL %" /> <statusCode code="completed" /> <effectiveTime value="[id number]" /> <value unit="%" xsi:type="PQ" value="1" /> < interpretationCode codeSystem="local" code="*" /> <referenceRange> <observationRange> <text>2-4</text> </ observationRange> </referenceRange> </observation> </ component> <component> <observation moodCode="EVN" classCode="OBS"> <templateId root="05.02.840.1.820712.10.2022.4.2" /> <id nullFlavor="NA" /> <code codeSystem="local" code="GR#" displayName= "GRANULOCYTE #" /> <statusCode code="completed" /> < effectiveTime value="" /> <value unit="k/cumm" xsi:type="PQ " value="5.3" /> <referenceRange> <observationRange> <text>2.0-9.0</text> </observationRange> </ referenceRange> </observation> </component> <component> <observation moodCode="EVN" classCode="OBS"> <templateId root= "840.1.774871.104.2" /> <id nullFlavor="NA" /> < code codeSystem="local" code="GR%" displayName="GRANULOCYTE %" /> <statusCode code="completed" /> <effectiveTime value=" " /> <value unit="%" xsi:type="PQ" value="76" /> < interpretationCode codeSystem="local" code="*" /> <referenceRange> <observationRange> <text>50-75</text> </ observationRange> </referenceRange> </observation> </ component> <component> <observation moodCode="EVN" classCode="OBS"> <templateId root="05.02.840.1.486481.10.22.4.2" /> <id nullFlavor="NA" /> <code codeSystem="local" code="LY#" displayName= "LYMPHOCYTE #" /> <statusCode code="completed" /> < effectiveTime value="" /> <value unit="k/cumm" xsi:type="PQ " value="1.0" /> <referenceRange> <observationRange> <text>1.0-4.0</text> </observationRange> </ referenceRange> </observation> </component> <component> <observation moodCode="EVN" classCode="OBS"> <templateId root= "16.840.1.231883.10..4.2" /> <id nullFlavor="NA" /> < code codeSystem="local" code="LY%" displayName="LYMPHOCYTE %" /> <statusCode code="completed" /> <effectiveTime value="317507909583" /> <value unit="%" xsi:type="PQ" value="15" /> < interpretationCode codeSystem="local" code="*" /> <referenceRange> <observationRange> <text>20-30</text> </ observationRange> </referenceRange> </observation> </ component> <component> <observation moodCode="EVN" classCode="OBS"> <templateId root="05.02.840.1.285539.01.03.22.4.2" /> <id nullFlavor="NA" /> <code codeSystem="local" code="MCH" displayName= "MEAN CELL HGB" /> <statusCode code="completed" /> < effectiveTime value="030407687491" /> <value unit="pg" xsi:type="PQ" value="24.9" /> <interpretationCode codeSystem="local" code="*" /> <referenceRange> <observationRange> <text>27.0- 33.0</text> </observationRange> </referenceRange> </ observation> </component> <component> <observation moodCode= "EVN" classCode="OBS"> <templateId root="05.02.840.1.267636.01.03.224.2 " /> <id nullFlavor="NA" /> <code codeSystem="local" code= "MCHC" displayName="MEAN CELL HGB CONCENTRATION" /> <statusCode code= "completed" /> <effectiveTime value="" /> <value unit="g/dl" xsi:type="PQ" value="31.6" /> <interpretationCode codeSystem="local" code="*" /> <referenceRange> < observationRange> <text>32.0-36.0</text> </ observationRange> </referenceRange> </observation> </ component> <component> <observation moodCode="EVN" classCode="OBS"> <templateId root="16.840.1.211971.01.03.224.2" /> <id nullFlavor="NA" /> <code codeSystem="local" code="MCV" displayName= "MEAN CELL VOLUME" /> <statusCode code="completed" /> < effectiveTime value="" /> <value unit="fl" xsi:type="PQ" value="78.7" /> <interpretationCode codeSystem="local" code="*" /> <referenceRange> <observationRange> <text>80.0- 100.0</text> </observationRange> </referenceRange> </ observation> </component> <component> <observation moodCode= "EVN" classCode="OBS"> <templateId root="16.840.1.248516.104.2 " /> <id nullFlavor="NA" /> <code codeSystem="local" code="MO# " displayName="MONOCYTE #" /> <statusCode code="completed" /> <effectiveTime value="" /> <value unit="k/cumm" xsi:type= "PQ" value="0.6" /> <referenceRange> <observationRange> <text>0.1-1.0</text> </observationRange> </ referenceRange> </observation> </component> <component> <observation moodCode="EVN" classCode="OBS"> <templateId root= "16.840.1.940863.10.20.22.4.2" /> <id nullFlavor="NA" /> < code codeSystem="local" code="MO%" displayName="MONOCYTE %" /> <statusCode code="completed" /> <effectiveTime value="472450107074" /> <value unit="%" xsi:type="PQ" value="8" /> < interpretationCode codeSystem="local" code="*" /> <referenceRange> <observationRange> <text>4-6</text> </ observationRange> </referenceRange> </observation> </ component> <component> <observation moodCode="EVN" classCode="OBS"> <templateId root="05.02.840.1.054759..22.4.2" /> <id nullFlavor="NA" /> <code codeSystem="local" code="RBC" displayName=" RED BLOOD CELL" /> <statusCode code="completed" /> < effectiveTime value="282318979312" /> <value unit="m/cumm" xsi:type="PQ " value="4.78" /> <referenceRange> <observationRange> <text>4.00-6.00</text> </observationRange> </ referenceRange> </observation> </component> <component> <observation moodCode="EVN" classCode="OBS"> <templateId root= "16.840.1.358589.10.20.22.4.2" /> <id nullFlavor="NA" /> < code codeSystem="local" code="RDW" displayName="RED CELL DISTRIBUTION WIDTH" /> <statusCode code="completed" /> <effectiveTime value= "889619720384" /> <value unit="%" xsi:type="PQ" value="17.6" /> <interpretationCode codeSystem="local" code="*" /> < referenceRange> <observationRange> <text>11.0-15.6</text > </observationRange> </referenceRange> </observation > </component> <component> <observation moodCode="EVN" classCode="OBS"> <templateId root="216.840.1.577470.10...4.2" /> <id nullFlavor="NA" /> <code codeSystem="local" code="WBC" displayName="WHITE BLOOD CELL" /> <statusCode code="completed" /> <effectiveTime value="" /> <value unit="k/cumm" xsi: type="PQ" value="7.0" /> <referenceRange> <observationRange > <text>5.0-10.0</text> </observationRange> </ referenceRange> </observation> </component> <component> <observation moodCode="EVN" classCode="OBS"> <templateId root= "216.840.1.923410.10..22.4.2" /> <id nullFlavor="NA" /> < code codeSystem="local" code="HGBT" displayName="HEMOGLOBIN" /> < statusCode code="completed" /> <effectiveTime value="542328114678" /> <value unit="gm/dL" xsi:type="PQ" value="11.9" /> < interpretationCode codeSystem="local" code="*" /> <referenceRange> <observationRange> <text>12.0-16.0</text> </ observationRange> </referenceRange> </observation> </ component> <component> <observation moodCode="EVN" classCode="OBS"> <templateId root="05.02.840.1.858672.10..4.2" /> <id nullFlavor="NA" /> <code codeSystem="local" code="HCTT" displayName= "HEMATOCRIT" /> <statusCode code="completed" /> < effectiveTime value="040184347987" /> <value unit="%" xsi:type="PQ " value="37.6" /> <referenceRange> <observationRange> <text>37.0-47.0</text> </observationRange> </ referenceRange> </observation> </component> <component> <observation moodCode="EVN" classCode="OBS"> <templateId root= "05.02.840.1.774184.01.03.22.4.2" /> <id nullFlavor="NA" /> < code codeSystem="local" code="PLT" displayName="PLATELET COUNT" /> < statusCode code="completed" /> <effectiveTime value="235538087609" /> <value unit="k/cumm" xsi:type="PQ" value="303" /> < referenceRange> <observationRange> <text>150-450</text> </observationRange> </referenceRange> </observation > </component> </organizer> </entry> <entry> <organizer moodCode= "EVN" classCode="BATTERY"> <templateId root="05.02.840.1.288364.10...4.1 " /> <id nullFlavor="NA" /> <code codeSystem="local" code="METAB" displayName="METABOLIC PANEL, BASIC" /> <statusCode code="completed" /> <component> <observation moodCode="EVN" classCode="OBS"> < templateId root="840.1.698613.01.03.22.4.2" /> <id nullFlavor="NA " /> <code codeSystem="local" code="K" displayName="POTASSIUM" /> <statusCode code="completed" /> <effectiveTime value="633834749000 " /> <value unit="mmol/L" xsi:type="PQ" value="3.9" /> < referenceRange> <observationRange> <text>3.5-5.3</text> </observationRange> </referenceRange> </observation > </component> <component> <observation moodCode="EVN" classCode="OBS"> <templateId root="05.02.840.1.469157.01.03.22.4.2" /> <id nullFlavor="NA" /> <code codeSystem="local" code="eGFR" displayName="EST GFR (MDRD)" /> <statusCode code="completed" /> <effectiveTime value="510081864952" /> <value unit="mL/min" xsi:type ="PQ" value="> 60" /> <referenceRange> <observationRange > <text>> 59</text> </observationRange> </ referenceRange> </observation> </component> <component> <observation moodCode="EVN" classCode="OBS"> <templateId root= "05.02.840.1.252139.01.03.22.4.2" /> <id nullFlavor="NA" /> < code codeSystem="local" code="GAP" displayName="ANION GAP" /> < statusCode code="completed" /> <effectiveTime value="025182613601" /> <value unit="mmol/L" xsi:type="PQ" value="7" /> < referenceRange> <observationRange> <text>5-15</text> </observationRange> </referenceRange> </observation> </component> <component> <observation moodCode="EVN" classCode= "OBS"> <templateId root="16.840.1.444664.01.03.22.4.2" /> < id nullFlavor="NA" /> <code codeSystem="local" code="eCrCl" displayName ="EST CrCl (CG)" /> <statusCode code="completed" /> < effectiveTime value="" /> <value unit="mL/min" xsi:type="PQ " value="> 60" /> <referenceRange> <observationRange> <text>> 59</text> </observationRange> </ referenceRange> </observation> </component> <component> <observation moodCode="EVN" classCode="OBS"> <templateId root= "05.02.840.1.327028.01.03.22.4.2" /> <id nullFlavor="NA" /> < code codeSystem="local" code="GLU" displayName="GLUCOSE" /> < statusCode code="completed" /> <effectiveTime value="" /> <value unit="mg/dL" xsi:type="PQ" value="83" /> < referenceRange> <observationRange> <text>70-99</text> </observationRange> </referenceRange> </observation> </component> <component> <observation moodCode="EVN" classCode= "OBS"> <templateId root="05.02.840.1.706644...4.2" /> < id nullFlavor="NA" /> <code codeSystem="local" code="CA" displayName= "CALCIUM" /> <statusCode code="completed" /> <effectiveTime value="" /> <value unit="mg/dL" xsi:type="PQ" value="8.7" / > <referenceRange> <observationRange> <text>8.5 -10.1</text> </observationRange> </referenceRange> </ observation> </component> <component> <observation moodCode= "EVN" classCode="OBS"> <templateId root="216.840.1.268746.10..22.4.2 " /> <id nullFlavor="NA" /> <code codeSystem="local" code="BUN " displayName="BLOOD UREA NITROGEN" /> <statusCode code="completed" /> <effectiveTime value="523994738644" /> <value unit="mg/dL" xsi:type="PQ" value="7" /> <referenceRange> < observationRange> <text>7-20</text> </observationRange> </referenceRange> </observation> </component> < component> <observation moodCode="EVN" classCode="OBS"> < templateId root="05.02.840.1.998599.01.03.22.4.2" /> <id nullFlavor="NA " /> <code codeSystem="local" code="CREAT" displayName="CREATININE" /> <statusCode code="completed" /> <effectiveTime value= "218915116672" /> <value unit="mg/dL" xsi:type="PQ" value="0.6" /> <referenceRange> <observationRange> <text>0.6-1.0< /text> </observationRange> </referenceRange> </ observation> </component> <component> <observation moodCode= "EVN" classCode="OBS"> <templateId root="05.02.840.1.281254.01.03.22.4.2 " /> <id nullFlavor="NA" /> <code codeSystem="local" code="NA " displayName="SODIUM" /> <statusCode code="completed" /> < effectiveTime value="674323421262" /> <value unit="mmol/L" xsi:type="PQ " value="138" /> <referenceRange> <observationRange> <text>135-148</text> </observationRange> </ referenceRange> </observation> </component> <component> <observation moodCode="EVN" classCode="OBS"> <templateId root= "216.840.1.480958.10..22.4.2" /> <id nullFlavor="NA" /> < code codeSystem="local" code="CL" displayName="CHLORIDE" /> < statusCode code="completed" /> <effectiveTime value="039766782786" /> <value unit="mmol/L" xsi:type="PQ" value="103" /> < referenceRange> <observationRange> <text>98-110</text> </observationRange> </referenceRange> </observation> </component> <component> <observation moodCode="EVN" classCode ="OBS"> <templateId root="216.840.1.435775.10...4.2" /> < id nullFlavor="NA" /> <code codeSystem="local" code="CO2" displayName= "CARBON DIOXIDE" /> <statusCode code="completed" /> < effectiveTime value="623413902996" /> <value unit="mmol/L" xsi:type="PQ " value="28" /> <referenceRange> <observationRange> <text>21-32</text> </observationRange> </ referenceRange> </observation> </component> </organizer> </entry > <entry> <organizer moodCode="EVN" classCode="BATTERY"> <templateId root="216.840.1.035552.10..22.4.1" /> <id nullFlavor="NA" /> <code codeSystem="local" code="LIVER" displayName="HEPATIC FUNCTION PANEL" /> < statusCode code="completed" /> <component> <observation moodCode= "EVN" classCode="OBS"> <templateId root="05.02.840.1.273874.10..4.2 " /> <id nullFlavor="NA" /> <code codeSystem="local" code= "BILUC" displayName="BILI UNCONJUGATED" /> <statusCode code="completed " /> <effectiveTime value="" /> <value unit="mg/dL " xsi:type="PQ" value="0.2" /> <referenceRange> < observationRange> <text>0.0-0.7</text> </ observationRange> </referenceRange> </observation> </ component> <component> <observation moodCode="EVN" classCode="OBS"> <templateId root="05.02.840.1.009316.01.03.22.4.2" /> <id nullFlavor="NA" /> <code codeSystem="local" code="AST" displayName="AST /SGOT" /> <statusCode code="completed" /> <effectiveTime value ="" /> <value unit="Units/L" xsi:type="PQ" value="31" /> <referenceRange> <observationRange> <text>10-37< /text> </observationRange> </referenceRange> </ observation> </component> <component> <observation moodCode= "EVN" classCode="OBS"> <templateId root="05.02.840.1.139363.01.03.22.4.2 " /> <id nullFlavor="NA" /> <code codeSystem="local" code="ALT " displayName="ALT/SGPT" /> <statusCode code="completed" /> < effectiveTime value="" /> <value unit="Units/L" xsi:type= "PQ" value="29" /> <referenceRange> <observationRange> <text>< 66</text> </observationRange> </ referenceRange> </observation> </component> <component> <observation moodCode="EVN" classCode="OBS"> <templateId root= "05.02.840.1.898797.1022.4.2" /> <id nullFlavor="NA" /> < code codeSystem="local" code="TP" displayName="TOTAL PROTEIN" /> < statusCode code="completed" /> <effectiveTime value="" /> <value unit="gm/dL" xsi:type="PQ" value="6.9" /> < referenceRange> <observationRange> <text>6.4-8.2</text> </observationRange> </referenceRange> </observation > </component> <component> <observation moodCode="EVN" classCode="OBS"> <templateId root="05.02.840.1.640406.01.03.22.4.2" /> <id nullFlavor="NA" /> <code codeSystem="local" code="ALB" displayName="ALBUMIN" /> <statusCode code="completed" /> < effectiveTime value="" /> <value unit="gm/dL" xsi:type="PQ " value="3.6" /> <referenceRange> <observationRange> <text>3.4-5.0</text> </observationRange> </ referenceRange> </observation> </component> <component> <observation moodCode="EVN" classCode="OBS"> <templateId root= "05.02.840.1.770897..22.4.2" /> <id nullFlavor="NA" /> < code codeSystem="local" code="BILTOT" displayName="BILI TOTAL" /> < statusCode code="completed" /> <effectiveTime value="305321767067" /> <value unit="mg/dL" xsi:type="PQ" value="0.2" /> < referenceRange> <observationRange> <text>0.0-1.0</text> </observationRange> </referenceRange> </observation > </component> <component> <observation moodCode="EVN" classCode="OBS"> <templateId root="216.840.1.740155.10..22.4.2" /> <id nullFlavor="NA" /> <code codeSystem="local" code="ALKP" displayName="ALKALINE PHOSPHATASE TOTAL" /> <statusCode code="completed " /> <effectiveTime value="550157690048" /> <value unit="Units /L" xsi:type="PQ" value="100" /> <referenceRange> < observationRange> <text>50-136</text> </observationRange > </referenceRange> </observation> </component> < component> <observation moodCode="EVN" classCode="OBS"> < templateId root="216.840.1.788048.10..22.4.2" /> <id nullFlavor="NA " /> <code codeSystem="local" code="BILC" displayName="BILI CONJUGATED " /> <statusCode code="completed" /> <effectiveTime value= "748566338689" /> <value unit="mg/dL" xsi:type="PQ" value="0.1" /> <referenceRange> <observationRange> <text>0.0-0.3< /text> </observationRange> </referenceRange> </ observation> </component> </organizer> </entry> <entry> <organizer moodCode="EVN" classCode="BATTERY"> <templateId root= "16.840.1.654767.10...4.1" /> <id nullFlavor="NA" /> <code codeSystem="local" code="LIP" displayName="LIPASE" /> <statusCode code= "completed" /> <component> <observation moodCode="EVN" classCode= "OBS"> <templateId root="840.1.572409.01.03.22.4.2" /> < id nullFlavor="NA" /> <code codeSystem="local" code="LIP" displayName= "LIPASE" /> <statusCode code="completed" /> <effectiveTime value="[id number]" /> <value unit="Units/L" xsi:type="PQ" value="124 " /> <referenceRange> <observationRange> <text> 73-393</text> </observationRange> </referenceRange> < /observation> </component> </organizer> </entry> <entry> < organizer moodCode="EVN" classCode="BATTERY"> <templateId root= "840.1.495729.01.03.22.4.1" /> <id nullFlavor="NA" /> <code codeSystem="local" code="HELICOSCR" displayName="AB H.PYLORI SCREEN" /> < statusCode code="completed" /> <component> <observation moodCode= "EVN" classCode="OBS"> <templateId root="[id number]2.4.2 " /> <id nullFlavor="NA" /> <code codeSystem="local" code= "HELICOSCR" displayName="AB H.PYLORI SCREEN" /> <statusCode code= "completed" /> <effectiveTime value="[id number]" /> <value unit="" xsi:type="PQ" value="NEGATIVE" /> <referenceRange> < observationRange> <text>NEGATIVE</text> </ observationRange> </referenceRange> </observation> </ component> </organizer> </entry> <entry> <organizer moodCode="EVN" classCode="BATTERY"> <templateId root="840.1.517406.10..22.4.1" /> <id nullFlavor="NA" /> <code codeSystem="local" code="PREGU" displayName="UR TEST" /> <statusCode code="completed" /> < component> <observation moodCode="EVN" classCode="OBS"> < templateId root="840.1.120118...4.2" /> <id nullFlavor="NA " /> <code codeSystem="local" code="PREGU" displayName="UR TEST" /> <statusCode code="completed" /> <effectiveTime value= "[id number]" /> <value unit="" xsi:type="PQ" value="NEGATIVE" /> <referenceRange> <observationRange> <text>NEGATIVE </text> </observationRange> </referenceRange> </ observation> </component> </organizer> </entry> <entry> <organizer moodCode="EVN" classCode="BATTERY"> <templateId root= "840.1.174732.01.03.22.4.1" /> <id nullFlavor="NA" /> <code codeSystem="local" code="UAMICRO" displayName="UA MICROSCOPIC" /> < statusCode code="completed" /> <component> <observation moodCode= "EVN" classCode="OBS"> <templateId root="840.1.423927.10..22.4.2 " /> <id nullFlavor="NA" /> <code codeSystem="local" code= "BACU" displayName="UA BACTERIA" /> <statusCode code="completed" /> <effectiveTime value="[id number]" /> <value unit="" xsi:type= "PQ" value="5+" /> <interpretationCode codeSystem="local" code="*" /> <referenceRange> <observationRange> <text> NEGATIVE</text> </observationRange> </referenceRange> </observation> </component> <component> <observation moodCode ="EVN" classCode="OBS"> <templateId root= "2.16.840.1.421372.10..22.4.2" /> <id nullFlavor="NA" /> < code codeSystem="local" code="EPIU" displayName="UA EPITHELIAL CELLS" /> <statusCode code="completed" /> <effectiveTime value="[id number]" /> <value unit="epi/hpf" xsi:type="PQ" value="1+" /> < referenceRange> <observationRange> <text>0 - 1+</text> </observationRange> </referenceRange> </observation> </component> <component> <observation moodCode="EVN" classCode ="OBS"> <templateId root="216.840.1.820268.10..22.4.2" /> < id nullFlavor="NA" /> <code codeSystem="local" code="RBCU" displayName= "UA RBC" /> <statusCode code="completed" /> <effectiveTime value="689372964634" /> <value unit="rbc/hpf" xsi:type="PQ" value="0-3 " /> <referenceRange> <observationRange> <text> 0 - 3</text> </observationRange> </referenceRange> </ observation> </component> <component> <observation moodCode= "EVN" classCode="OBS"> <templateId root="05.02.840.1.953507.10.22.4.2 " /> <id nullFlavor="NA" /> <code codeSystem="local" code= "UAVOL" displayName="UA VOLUME FOR EXAM" /> <statusCode code="completed " /> <effectiveTime value="279380050039" /> <value unit="mL" xsi:type="PQ" value="12.0" /> <referenceRange> < observationRange> <text>(12mL STD)</text> </ observationRange> </referenceRange> </observation> </ component> <component> <observation moodCode="EVN" classCode="OBS"> <templateId root="840.1.821528.01.03.22.4.2" /> <id nullFlavor="NA" /> <code codeSystem="local" code="WBCU" displayName=" UA WBC" /> <statusCode code="completed" /> <effectiveTime value="254761341922" /> <value unit="wbc/hpf" xsi:type="PQ" value="0-1 " /> <referenceRange> <observationRange> <text> 0 - 5</text> </observationRange> </referenceRange> </ observation> </component> </organizer> </entry> <entry> <organizer moodCode="EVN" classCode="BATTERY"> <templateId root= "05.02.840.1.494080.10.22.4.1" /> <id nullFlavor="NA" /> <code codeSystem="local" code="UC" displayName="URINE CULTURE" /> <statusCode code="completed" /> <component> <observation moodCode="EVN" classCode="OBS"> <templateId root="05.02.840.1.060443.10.22.4.2" /> <id nullFlavor="NA" /> <code codeSystem="local" code="UNC" displayName="Uncategorized" /> <statusCode code="completed" /> <effectiveTime value="080523149205" /> <value xsi:type="ST" value="& lt;pre><b>URINE CULTURE</b> See BelowURINE CULTURE(F) Kasandra Date/Time: 2011 14:14 Suzie Date/Time : 12/19/2011 09:50SOURCE: URINESPEC DESC: CLEAN CATCHTREATMENT OF ASYMPTOMATIC BACTERIURIA IS NOT USUALLYCLINICALLY INDICATED.Organism #1 ESCHERICHIA COLICOLONY COUNT >100,000 CFU/ML InterpAMPICILLIN VITEK >=32 RAMPICILLIN/ SULBACTAM VITEK 4 SCEFAZOLIN VITEK <=4 SCEFEPIME VITEK <=1 SCEFTRIAXONE VITEK &lt ;=1 SCIPROFLOXACIN VITEK >=4 RGENTAMICIN VITEK <=1 SNITROFURANTOIN VITEK <=16 STRIMETH/ SULFA VITEK >=[address] [facility] [id number] [place] [address]</pre>" /> <referenceRange> < observationRange> <text /> </observationRange> </referenceRange> </observation> </component> </organizer> </ entry> <entry> <organizer moodCode="EVN" classCode="BATTERY"> < templateId root="2.16.840.1.844426.10..22.4.1" /> <id nullFlavor="NA" /> <code codeSystem="local" code="PREG" displayName=" TEST, SERUM" / > <statusCode code="completed" /> <component> <observation moodCode="EVN" classCode="OBS"> <templateId root= "2.16.840.1.280987.10..22.4.2" /> <id nullFlavor="NA" /> < code codeSystem="local" code="PREG" displayName=" TEST, SERUM" /> <statusCode code="completed" /> <effectiveTime value="682000530629 " /> <value unit="" xsi:type="PQ" value="NEGATIVE" /> < referenceRange> <observationRange> <text>NEGATIVE</text > </observationRange> </referenceRange> </observation > </component> </organizer> </entry> <entry> <organizer moodCode= "EVN" classCode="BATTERY"> <templateId root="16.840.1.215408.10..22.4.1 " /> <id nullFlavor="NA" /> <code codeSystem="local" code="iCHEM8" displayName="CHEM/HEM PROFILE-BEDSIDE" /> <statusCode code="completed" /> <component> <observation moodCode="EVN" classCode="OBS"> < templateId root="16.840.1.617228.10...4.2" /> <id nullFlavor="NA " /> <code codeSystem="local" code="K" displayName="POTASSIUM" /> <statusCode code="completed" /> <effectiveTime value="749544983449 " /> <value unit="mmol/L" xsi:type="PQ" value="3.3" /> < interpretationCode codeSystem="local" code="*" /> <referenceRange> <observationRange> <text>3.5-5.3</text> </ observationRange> </referenceRange> </observation> </ component> <component> <observation moodCode="EVN" classCode="OBS"> <templateId root="05.02.840.1.269039.10..22.4.2" /> <id nullFlavor="NA" /> <code codeSystem="local" code="CMETHOD" displayName= "METHOD" /> <statusCode code="completed" /> <effectiveTime value="" /> <value unit="" xsi:type="PQ" value="Bedside" / > <referenceRange> <observationRange> <text /> </observationRange> </referenceRange> </observation > </component> <component> <observation moodCode="EVN" classCode="OBS"> <templateId root="840.1.268272.01.03.22.4.2" /> <id nullFlavor="NA" /> <code codeSystem="local" code="GAP" displayName="ANION GAP" /> <statusCode code="completed" /> < effectiveTime value="" /> <value unit="mmol/L" xsi:type="PQ " value="18" /> <referenceRange> <observationRange> <text>10-20</text> </observationRange> </ referenceRange> </observation> </component> <component> <observation moodCode="EVN" classCode="OBS"> <templateId root= "840.1.852320.01.03.22.4.2" /> <id nullFlavor="NA" /> < code codeSystem="local" code="HMETHOD" displayName="METHOD" /> < statusCode code="completed" /> <effectiveTime value="" /> <value unit="" xsi:type="PQ" value="Bedside" /> < referenceRange> <observationRange> <text /> < /observationRange> </referenceRange> </observation> </ component> <component> <observation moodCode="EVN" classCode="OBS"> <templateId root="840.1.590457.01.03.22.4.2" /> <id nullFlavor="NA" /> <code codeSystem="local" code="GLU" displayName= "GLUCOSE" /> <statusCode code="completed" /> <effectiveTime value="653543814059" /> <value unit="mg/dL" xsi:type="PQ" value="91" / > <referenceRange> <observationRange> <text>70- 99</text> </observationRange> </referenceRange> </ observation> </component> <component> <observation moodCode= "EVN" classCode="OBS"> <templateId root="216.840.1.668849.10.20.22.4.2 " /> <id nullFlavor="NA" /> <code codeSystem="local" code="BUN " displayName="BLOOD UREA NITROGEN" /> <statusCode code="completed" /> <effectiveTime value="104103941131" /> <value unit="mg/dL" xsi:type="PQ" value="11" /> <referenceRange> < observationRange> <text>7-20</text> </observationRange> </referenceRange> </observation> </component> < component> <observation moodCode="EVN" classCode="OBS"> < templateId root="216.840.1.123791.10.20.22.4.2" /> <id nullFlavor="NA " /> <code codeSystem="local" code="CREAT" displayName="CREATININE" /> <statusCode code="completed" /> <effectiveTime value= "714477222524" /> <value unit="mg/dL" xsi:type="PQ" value="0.7" /> <referenceRange> <observationRange> <text>0.6-1.0< /text> </observationRange> </referenceRange> </ observation> </component> <component> <observation moodCode= "EVN" classCode="OBS"> <templateId root="16.840.1.814777.01.03.22.4.2 " /> <id nullFlavor="NA" /> <code codeSystem="local" code= "HGBT" displayName="HEMOGLOBIN" /> <statusCode code="completed" /> <effectiveTime value="911685183898" /> <value unit="gm/dL" xsi: type="PQ" value="12.6" /> <referenceRange> <observationRange > <text>12.0-16.0</text> </observationRange> </ referenceRange> </observation> </component> <component> <observation moodCode="EVN" classCode="OBS"> <templateId root= "216.840.1.502016.01.03.22.4.2" /> <id nullFlavor="NA" /> < code codeSystem="local" code="HCTT" displayName="HEMATOCRIT" /> < statusCode code="completed" /> <effectiveTime value="632586647936" /> <value unit="%" xsi:type="PQ" value="37.0" /> < referenceRange> <observationRange> <text>37.0-47.0</text > </observationRange> </referenceRange> </observation > </component> <component> <observation moodCode="EVN" classCode="OBS"> <templateId root="16.840.1.810952.01.03.22.4.2" /> <id nullFlavor="NA" /> <code codeSystem="local" code="NA" displayName="SODIUM" /> <statusCode code="completed" /> < effectiveTime value="" /> <value unit="mmol/L" xsi:type="PQ " value="140" /> <referenceRange> <observationRange> <text>135-148</text> </observationRange> </ referenceRange> </observation> </component> <component> <observation moodCode="EVN" classCode="OBS"> <templateId root= "16.840.1.482060.10..22.4.2" /> <id nullFlavor="NA" /> < code codeSystem="local" code="CL" displayName="CHLORIDE" /> < statusCode code="completed" /> <effectiveTime value="" /> <value unit="mmol/L" xsi:type="PQ" value="106" /> < referenceRange> <observationRange> <text>98-110</text> </observationRange> </referenceRange> </observation> </component> <component> <observation moodCode="EVN" classCode ="OBS"> <templateId root="216.840.1.955397.10...4.2" /> < id nullFlavor="NA" /> <code codeSystem="local" code="CO2" displayName= "CARBON DIOXIDE" /> <statusCode code="completed" /> < effectiveTime value="" /> <value unit="mmol/L" xsi:type="PQ " value="20" /> <interpretationCode codeSystem="local" code="*" /> <referenceRange> <observationRange> <text>21-32</ text> </observationRange> </referenceRange> </ observation> </component> <component> <observation moodCode= "EVN" classCode="OBS"> <templateId root="16.840.1.481847.10..22.4.2 " /> <id nullFlavor="NA" /> <code codeSystem="local" code= "CAION" displayName="CALCIUM IONIZED" /> <statusCode code="completed" / > <effectiveTime value="" /> <value unit="mg/dL" xsi:type="PQ" value="4.9" /> <referenceRange> < observationRange> <text>4.5-5.3</text> </ observationRange> </referenceRange> </observation> </ component> </organizer> </entry> <entry> <organizer moodCode="EVN" classCode="BATTERY"> <templateId root="216.840.1.368433.10.20.22.4.1" /> <id nullFlavor="NA" /> <code codeSystem="local" code="UC" displayName= "URINE CULTURE" /> <statusCode code="completed" /> <component> <observation moodCode="EVN" classCode="OBS"> <templateId root= "16.840.1.791290.10.20.22.4.2" /> <id nullFlavor="NA" /> < code codeSystem="local" code="MB" displayName="Microbiology" /> < statusCode code="completed" /> <effectiveTime value="311023010160" /> <value xsi:type="ST" value="<pre><b>URINE CULTURE</b> See BelowURINE CULTURE(F) Kasandra Date/Time: 04/17/2014 : Suzie Date/Time: 04/19/2014 07:19SOURCE: URINESPEC DESC: CLEAN CATCHTREATMENT OF ASYMPTOMATIC BACTERIURIA IS NOT USUALLYCLINICALLY INDICATED.MIXED GRAM POSITIVE?[facility]ED [facility] [id number] [place] [address]</pre>" /> <referenceRange> <observationRange> <text /> </observationRange> </referenceRange> </observation> </component> </ organizer> </entry> <entry> <organizer moodCode="EVN" classCode="BATTERY"> <templateId root="216.840.1.535958.10.20.22.4.1" /> <id nullFlavor= "NA" /> <code codeSystem="local" code="UA" displayName="URINALYSIS, ROUTINE " /> <statusCode code="completed" /> <component> <observation moodCode="EVN" classCode="OBS"> <templateId root= "216.840.1.807940.10.4.2" /> <id nullFlavor="NA" /> < code codeSystem="local" code="LEUESU" displayName="UA LEUKOCYTE ESTERASE DIPSTICK" /> <statusCode code="completed" /> <effectiveTime value="" /> <value unit="" xsi:type="PQ" value="NEGATIVE" / > <referenceRange> <observationRange> <text> NEGATIVE</text> </observationRange> </referenceRange> </observation> </component> <component> <observation moodCode ="EVN" classCode="OBS"> <templateId root= "05.02.840.1.995768.01.03.224.2" /> <id nullFlavor="NA" /> < code codeSystem="local" code="NITRIU" displayName="UA NITRITE DIPSTICK" /> <statusCode code="completed" /> <effectiveTime value=" " /> <value unit="" xsi:type="PQ" value="POSITIVE" /> < interpretationCode codeSystem="local" code="*" /> <referenceRange> <observationRange> <text>NEGATIVE</text> </ observationRange> </referenceRange> </observation> </ component> <component> <observation moodCode="EVN" classCode="OBS"> <templateId root="16.840.1.635488.01.03.22.4.2" /> <id nullFlavor="NA" /> <code codeSystem="local" code="PROTEIU" displayName= "UA PROTEIN DIPSTICK" /> <statusCode code="completed" /> < effectiveTime value="" /> <value unit="" xsi:type="PQ" value="NEGATIVE" /> <referenceRange> <observationRange> <text>NEGATIVE</text> </observationRange> </ referenceRange> </observation> </component> <component> <observation moodCode="EVN" classCode="OBS"> <templateId root= "16.840.1.158857.10.4.2" /> <id nullFlavor="NA" /> < code codeSystem="local" code="DGLUU" displayName="UA GLUCOSE DIPSTICK" /> <statusCode code="completed" /> <effectiveTime value=" " /> <value unit="" xsi:type="PQ" value="NEGATIVE" /> < referenceRange> <observationRange> <text>NEGATIVE</text > </observationRange> </referenceRange> </observation > </component> <component> <observation moodCode="EVN" classCode="OBS"> <templateId root="05.02.840.1.210324.01.03.22.4.2" /> <id nullFlavor="NA" /> <code codeSystem="local" code="KETONU" displayName="UA KETONE DIPSTICK" /> <statusCode code="completed" /> <effectiveTime value="" /> <value unit="" xsi:type= "PQ" value="NEGATIVE" /> <referenceRange> <observationRange > <text>NEGATIVE</text> </observationRange> </ referenceRange> </observation> </component> <component> <observation moodCode="EVN" classCode="OBS"> <templateId root= "16.840.1.166367.10..4.2" /> <id nullFlavor="NA" /> < code codeSystem="local" code="UROBILU" displayName="UA UROBILINOGEN DIPSTICK" / > <statusCode code="completed" /> <effectiveTime value= "" /> <value unit="" xsi:type="PQ" value="NORMAL" /> <referenceRange> <observationRange> <text>NORMAL</ text> </observationRange> </referenceRange> </ observation> </component> <component> <observation moodCode= "EVN" classCode="OBS"> <templateId root="16.840.1.809644.10..4.2 " /> <id nullFlavor="NA" /> <code codeSystem="local" code= "BILU" displayName="UA BILIRUBIN DIPSTICK" /> <statusCode code= "completed" /> <effectiveTime value="" /> <value unit="" xsi:type="PQ" value="NEGATIVE" /> <referenceRange> < observationRange> <text>NEGATIVE</text> </ observationRange> </referenceRange> </observation> </ component> <component> <observation moodCode="EVN" classCode="OBS"> <templateId root="05.02.840.1.018005.01.03.22.4.2" /> <id nullFlavor="NA" /> <code codeSystem="local" code="CARITO" displayName="UA BLOOD DIPSTICK" /> <statusCode code="completed" /> < effectiveTime value="" /> <value unit="" xsi:type="PQ" value="NEGATIVE" /> <referenceRange> <observationRange> <text>NEGATIVE</text> </observationRange> </ referenceRange> </observation> </component> <component> <observation moodCode="EVN" classCode="OBS"> <templateId root= "05.02.840.1.941592.01.03.22.4.2" /> <id nullFlavor="NA" /> < code codeSystem="local" code="SPGRU" displayName="UA SPECIFIC GRAVITY" /> <statusCode code="completed" /> <effectiveTime value=" " /> <value unit="" xsi:type="PQ" value="1.025" /> < referenceRange> <observationRange> <text>1.015-1.025</ text> </observationRange> </referenceRange> </ observation> </component> <component> <observation moodCode= "EVN" classCode="OBS"> <templateId root="840.1.415376.01.03.22.4.2 " /> <id nullFlavor="NA" /> <code codeSystem="local" code="SUSANA " displayName="UR PH" /> <statusCode code="completed" /> < effectiveTime value="" /> <value unit="" xsi:type="PQ" value="5.5" /> <referenceRange> <observationRange> <text>5.0-7.0</text> </observationRange> </ referenceRange> </observation> </component> </organizer> </entry > <entry> <organizer moodCode="EVN" classCode="BATTERY"> <templateId root="840.1.801667.01.03.22.4.1" /> <id nullFlavor="NA" /> <code codeSystem="local" code="UAMICRO" displayName="UA MICROSCOPIC" /> < statusCode code="completed" /> <component> <observation moodCode= "EVN" classCode="OBS"> <templateId root="05.02.840.1.901223.01.03.22.4.2 " /> <id nullFlavor="NA" /> <code codeSystem="local" code= "BACU" displayName="UA BACTERIA" /> <statusCode code="completed" /> <effectiveTime value="" /> <value unit="" xsi:type= "PQ" value="3+" /> <interpretationCode codeSystem="local" code="*" /> <referenceRange> <observationRange> <text> NEGATIVE</text> </observationRange> </referenceRange> </observation> </component> <component> <observation moodCode ="EVN" classCode="OBS"> <templateId root= "216.840.1.340546.10..22.4.2" /> <id nullFlavor="NA" /> < code codeSystem="local" code="EPIU" displayName="UA EPITHELIAL CELLS" /> <statusCode code="completed" /> <effectiveTime value="" /> <value unit="epi/hpf" xsi:type="PQ" value="4+" /> < interpretationCode codeSystem="local" code="*" /> <referenceRange> <observationRange> <text>0 - 1+</text> </ observationRange> </referenceRange> </observation> </ component> <component> <observation moodCode="EVN" classCode="OBS"> <templateId root="216.840.1.258026.10.20.22.4.2" /> <id nullFlavor="NA" /> <code codeSystem="local" code="MUCUSU" displayName= "UA MUCUS" /> <statusCode code="completed" /> <effectiveTime value="" /> <value unit="" xsi:type="PQ" value="3+" /> <interpretationCode codeSystem="local" code="*" /> < referenceRange> <observationRange> <text>NEG TO 1+</text > </observationRange> </referenceRange> </observation > </component> <component> <observation moodCode="EVN" classCode="OBS"> <templateId root="216.840.1.214770.10..22.4.2" /> <id nullFlavor="NA" /> <code codeSystem="local" code="RBCU" displayName="UA RBC" /> <statusCode code="completed" /> < effectiveTime value="" /> <value unit="rbc/hpf" xsi:type= "PQ" value="0-3" /> <referenceRange> <observationRange> <text>0 - 3</text> </observationRange> </ referenceRange> </observation> </component> <component> <observation moodCode="EVN" classCode="OBS"> <templateId root= "16.840.1.447386.10..4.2" /> <id nullFlavor="NA" /> < code codeSystem="local" code="UAVOL" displayName="UA VOLUME FOR EXAM" /> <statusCode code="completed" /> <effectiveTime value="" /> <value unit="mL" xsi:type="PQ" value="12.0" /> < referenceRange> <observationRange> <text>(12mL STD)</ text> </observationRange> </referenceRange> </ observation> </component> <component> <observation moodCode= "EVN" classCode="OBS"> <templateId root="16.840.1.722967.10..22.4.2 " /> <id nullFlavor="NA" /> <code codeSystem="local" code= "WBCU" displayName="UA WBC" /> <statusCode code="completed" /> <effectiveTime value="" /> <value unit="wbc/hpf" xsi:type ="PQ" value="5-10" /> <interpretationCode codeSystem="local" code="*" / > <referenceRange> <observationRange> <text>0 - 5</text> </observationRange> </referenceRange> </ observation> </component> </organizer> </entry> <entry> <organizer moodCode="EVN" classCode="BATTERY"> <templateId root= "05.02.840.1.612198.10..22.4.1" /> <id nullFlavor="NA" /> <code codeSystem="local" code="PREGU" displayName="UR TEST" /> < statusCode code="completed" /> <component> <observation moodCode= "EVN" classCode="OBS"> <templateId root="05.02.840.1.916790...4.2 " /> <id nullFlavor="NA" /> <code codeSystem="local" code= "PREGU" displayName="UR TEST" /> <statusCode code="completed " /> <effectiveTime value="266869936959" /> <value unit="" xsi :type="PQ" value="NEGATIVE" /> <referenceRange> < observationRange> <text>NEGATIVE</text> </ observationRange> </referenceRange> </observation> </ component> </organizer> </entry> <entry> <organizer moodCode="EVN" classCode="BATTERY"> <templateId root="05.02.840.1.883489.01.03.22.4.1" /> <id nullFlavor="NA" /> <code codeSystem="local" code="PREG" displayName=" TEST, SERUM" /> <statusCode code="completed" /> <component> <observation moodCode="EVN" classCode="OBS"> < templateId root="05.02.840.1.360166.10..22.4.2" /> <id nullFlavor="NA " /> <code codeSystem="local" code="PREG" displayName=" TEST, SERUM" /> <statusCode code="completed" /> <effectiveTime value ="294283027043" /> <value unit="" xsi:type="PQ" value="NEGATIVE" /> <referenceRange> <observationRange> <text> NEGATIVE</text> </observationRange> </referenceRange> </observation> </component> </organizer> </entry> <entry> < organizer moodCode="EVN" classCode="BATTERY"> <templateId root= "2.16.840.1.551911.10.20.22.4.1" /> <id nullFlavor="NA" /> <code codeSystem="local" code="GRAMM" displayName="GRAM STAIN" /> <statusCode code="completed" /> <component> <observation moodCode="EVN" classCode="OBS"> <templateId root="2.16.840.1.385880.10.20.22.4.2" /> <id nullFlavor="NA" /> <code codeSystem="local" code="MB" displayName="Microbiology" /> <statusCode code="completed" /> <effectiveTime value="880451091069" /> <value xsi:type="ST" value="<pre ><b>GRAM STAIN - MISCELLANEOUS CULTURE</b> See Below: COLONY COUNT ONLYGRAM STAIN(F) Kasandra Date/Time: 09/21/2014 17:08 Suzie Date/Time: 09/24/2014 11:13SOURCE: ASPIRATESPEC DESC: DUODENALTNPTEST NOT PERFORMED[address] [id number] BelowMISCELLANEOUS CULTURE(F) Kasandra Date/Time: 09/21/2014 17:08 Suzie Date/Time: 09/24/2014 11:13SOURCE: ASPIRATESPEC DESC: DUODENALCULTURE REPORT>100,000 CFU/ML OF GRAMNEGATIVE RODS[address] [address]</pre>" /> < referenceRange> <observationRange> <text /> < /observationRange> </referenceRange> </observation> </ component> </organizer> </entry> <entry> <organizer moodCode="EVN" classCode="BATTERY"> <templateId root="16.840.1.247236.10..22.4.1" /> <id nullFlavor="NA" /> <code codeSystem="local" code="UA" displayName= "URINALYSIS, ROUTINE" /> <statusCode code="completed" /> <component> <observation moodCode="EVN" classCode="OBS"> <templateId root= "05.02.840.1.938726.10..4.2" /> <id nullFlavor="NA" /> < code codeSystem="local" code="LEUESU" displayName="UA LEUKOCYTE ESTERASE DIPSTICK" /> <statusCode code="completed" /> <effectiveTime value="161537096597" /> <value unit="" xsi:type="PQ" value="NEGATIVE" / > <referenceRange> <observationRange> <text> NEGATIVE</text> </observationRange> </referenceRange> </observation> </component> <component> <observation moodCode ="EVN" classCode="OBS"> <templateId root= "05.02.840.1.163921.01.03.22.4.2" /> <id nullFlavor="NA" /> < code codeSystem="local" code="NITRIU" displayName="UA NITRITE DIPSTICK" /> <statusCode code="completed" /> <effectiveTime value="712159826458 " /> <value unit="" xsi:type="PQ" value="POSITIVE" /> < interpretationCode codeSystem="local" code="*" /> <referenceRange> <observationRange> <text>NEGATIVE</text> </ observationRange> </referenceRange> </observation> </ component> <component> <observation moodCode="EVN" classCode="OBS"> <templateId root="216.840.1.761582.01.03.22.4.2" /> <id nullFlavor="NA" /> <code codeSystem="local" code="PROTEIU" displayName= "UA PROTEIN DIPSTICK" /> <statusCode code="completed" /> < effectiveTime value="" /> <value unit="" xsi:type="PQ" value="NEGATIVE" /> <referenceRange> <observationRange> <text>NEGATIVE</text> </observationRange> </ referenceRange> </observation> </component> <component> <observation moodCode="EVN" classCode="OBS"> <templateId root= "05.02.840.1.927809.01.03.22.4.2" /> <id nullFlavor="NA" /> < code codeSystem="local" code="DGLUU" displayName="UA GLUCOSE DIPSTICK" /> <statusCode code="completed" /> <effectiveTime value=" " /> <value unit="" xsi:type="PQ" value="NEGATIVE" /> < referenceRange> <observationRange> <text>NEGATIVE</text > </observationRange> </referenceRange> </observation > </component> <component> <observation moodCode="EVN" classCode="OBS"> <templateId root="05.02.840.1.851777.10.4.2" /> <id nullFlavor="NA" /> <code codeSystem="local" code="KETONU" displayName="UA KETONE DIPSTICK" /> <statusCode code="completed" /> <effectiveTime value="" /> <value unit="" xsi:type= "PQ" value="NEGATIVE" /> <referenceRange> <observationRange > <text>NEGATIVE</text> </observationRange> </ referenceRange> </observation> </component> <component> <observation moodCode="EVN" classCode="OBS"> <templateId root= "05.02.840.1.485361.10..4.2" /> <id nullFlavor="NA" /> < code codeSystem="local" code="UROBILU" displayName="UA UROBILINOGEN DIPSTICK" / > <statusCode code="completed" /> <effectiveTime value= "224342774881" /> <value unit="" xsi:type="PQ" value="NORMAL" /> <referenceRange> <observationRange> <text>NORMAL</ text> </observationRange> </referenceRange> </ observation> </component> <component> <observation moodCode= "EVN" classCode="OBS"> <templateId root="05.02.840.1.248906.01.03.22.4.2 " /> <id nullFlavor="NA" /> <code codeSystem="local" code= "BILU" displayName="UA BILIRUBIN DIPSTICK" /> <statusCode code= "completed" /> <effectiveTime value="241760454052" /> <value unit="" xsi:type="PQ" value="NEGATIVE" /> <referenceRange> < observationRange> <text>NEGATIVE</text> </ observationRange> </referenceRange> </observation> </ component> <component> <observation moodCode="EVN" classCode="OBS"> <templateId root="05.02.840.1.301963.10.4.2" /> <id nullFlavor="NA" /> <code codeSystem="local" code="CARITO" displayName="UA BLOOD DIPSTICK" /> <statusCode code="completed" /> < effectiveTime value="961756369426" /> <value unit="" xsi:type="PQ" value="1+" /> <interpretationCode codeSystem="local" code="*" /> <referenceRange> <observationRange> <text>NEGATIVE</ text> </observationRange> </referenceRange> </ observation> </component> <component> <observation moodCode= "EVN" classCode="OBS"> <templateId root="16.840.1.950774.10.20.22.4.2 " /> <id nullFlavor="NA" /> <code codeSystem="local" code= "SPGRU" displayName="UA SPECIFIC GRAVITY" /> <statusCode code= "completed" /> <effectiveTime value="593472149012" /> <value unit="" xsi:type="PQ" value=">=1.030" /> <interpretationCode codeSystem="local" code="*" /> <referenceRange> < observationRange> <text>1.015-1.025</text> </ observationRange> </referenceRange> </observation> </ component> <component> <observation moodCode="EVN" classCode="OBS"> <templateId root="05.02.840.1.837890.10.20.22.4.2" /> <id nullFlavor="NA" /> <code codeSystem="local" code="SUSANA" displayName="UR PH" /> <statusCode code="completed" /> <effectiveTime value= "837093897573" /> <value unit="" xsi:type="PQ" value="5.0" /> <referenceRange> <observationRange> <text>5.0-7.0</text > </observationRange> </referenceRange> </observation > </component> <component> <observation moodCode="EVN" classCode="OBS"> <templateId root="2.16.840.1.356183.10.22.4.2" /> <id nullFlavor="NA" /> <code codeSystem="local" code="MB" displayName="Microbiology" /> <statusCode code="completed" /> <effectiveTime value="899113540885" /> <value unit="" xsi:type="PQ" value="" /> <referenceRange> <observationRange> <text /> </observationRange> </referenceRange> </ observation> </component> </organizer> </entry> <entry> <organizer moodCode="EVN" classCode="BATTERY"> <templateId root= "05.02.840.1.432825.10..4.1" /> <id nullFlavor="NA" /> <code codeSystem="local" code="UAMICRO" displayName="UA MICROSCOPIC" /> < statusCode code="completed" /> <component> <observation moodCode= "EVN" classCode="OBS"> <templateId root="05.02.840.1.053932...4.2 " /> <id nullFlavor="NA" /> <code codeSystem="local" code= "BACU" displayName="UA BACTERIA" /> <statusCode code="completed" /> <effectiveTime value="777775189720" /> <value unit="" xsi:type= "PQ" value="3+" /> <interpretationCode codeSystem="local" code="*" /> <referenceRange> <observationRange> <text> NEGATIVE</text> </observationRange> </referenceRange> </observation> </component> <component> <observation moodCode ="EVN" classCode="OBS"> <templateId root= "05.02.840.1.615531...4.2" /> <id nullFlavor="NA" /> < code codeSystem="local" code="EPIU" displayName="UA EPITHELIAL CELLS" /> <statusCode code="completed" /> <effectiveTime value="467677169520" /> <value unit="epi/hpf" xsi:type="PQ" value="2+" /> < interpretationCode codeSystem="local" code="*" /> <referenceRange> <observationRange> <text>0 - 1+</text> </ observationRange> </referenceRange> </observation> </ component> <component> <observation moodCode="EVN" classCode="OBS"> <templateId root="2.16.840.1.875683.10...4.2" /> <id nullFlavor="NA" /> <code codeSystem="local" code="MUCUSU" displayName= "UA MUCUS" /> <statusCode code="completed" /> <effectiveTime value="" /> <value unit="" xsi:type="PQ" value="1+" /> <referenceRange> <observationRange> <text>NEG TO 1 +</text> </observationRange> </referenceRange> </ observation> </component> <component> <observation moodCode= "EVN" classCode="OBS"> <templateId root="2.16.840.1.220656.10..4.2 " /> <id nullFlavor="NA" /> <code codeSystem="local" code= "RBCU" displayName="UA RBC" /> <statusCode code="completed" /> <effectiveTime value="306250977104" /> <value unit="rbc/hpf" xsi:type ="PQ" value="0-3" /> <referenceRange> <observationRange> <text>0 - 3</text> </observationRange> </ referenceRange> </observation> </component> <component> <observation moodCode="EVN" classCode="OBS"> <templateId root= "840.1.161685.10.22.4.2" /> <id nullFlavor="NA" /> < code codeSystem="local" code="UAVOL" displayName="UA VOLUME FOR EXAM" /> <statusCode code="completed" /> <effectiveTime value="712637785654" /> <value unit="mL" xsi:type="PQ" value="12.0" /> < referenceRange> <observationRange> <text>(12mL STD)</ text> </observationRange> </referenceRange> </ observation> </component> <component> <observation moodCode= "EVN" classCode="OBS"> <templateId root="840.1.788131.01.03.22.4.2 " /> <id nullFlavor="NA" /> <code codeSystem="local" code= "WBCU" displayName="UA WBC" /> <statusCode code="completed" /> <effectiveTime value="681834107984" /> <value unit="wbc/hpf" xsi:type ="PQ" value="2-5" /> <referenceRange> <observationRange> <text>0 - 5</text> </observationRange> </ referenceRange> </observation> </component> </organizer> </entry > <entry> <organizer moodCode="EVN" classCode="BATTERY"> <templateId root="05.02.840.1.953603.22.4.1" /> <id nullFlavor="NA" /> <code codeSystem="local" code="CBCD" displayName="CBC W/DIFF" /> <statusCode code ="completed" /> <component> <observation moodCode="EVN" classCode= "OBS"> <templateId root="840.1.758027.01.03.224.2" /> < id nullFlavor="NA" /> <code codeSystem="local" code="EO#" displayName= "EOSINOPHIL #" /> <statusCode code="completed" /> < effectiveTime value="166705291362" /> <value unit="k/cumm" xsi:type="PQ " value="0.1" /> <referenceRange> <observationRange> <text>0.1-0.5</text> </observationRange> </ referenceRange> </observation> </component> <component> <observation moodCode="EVN" classCode="OBS"> <templateId root= "216.840.1.458707.01.03.224.2" /> <id nullFlavor="NA" /> < code codeSystem="local" code="EO%" displayName="EOSINOPHIL %" /> <statusCode code="completed" /> <effectiveTime value="098965321147" /> <value unit="%" xsi:type="PQ" value="1" /> < interpretationCode codeSystem="local" code="*" /> <referenceRange> <observationRange> <text>2-4</text> </ observationRange> </referenceRange> </observation> </ component> <component> <observation moodCode="EVN" classCode="OBS"> <templateId root="16.840.1.816599.01.03.224.2" /> <id nullFlavor="NA" /> <code codeSystem="local" code="GR#" displayName= "GRANULOCYTE #" /> <statusCode code="completed" /> < effectiveTime value="570507678658" /> <value unit="k/cumm" xsi:type="PQ " value="3.9" /> <referenceRange> <observationRange> <text>2.0-9.0</text> </observationRange> </ referenceRange> </observation> </component> <component> <observation moodCode="EVN" classCode="OBS"> <templateId root= "216.840.1.517369.102022.4.2" /> <id nullFlavor="NA" /> < code codeSystem="local" code="GR%" displayName="GRANULOCYTE %" /> <statusCode code="completed" /> <effectiveTime value="864121521586 " /> <value unit="%" xsi:type="PQ" value="67" /> < referenceRange> <observationRange> <text>50-75</text> </observationRange> </referenceRange> </observation> </component> <component> <observation moodCode="EVN" classCode= "OBS"> <templateId root="216.840.1.368583.01.03.22.4.2" /> < id nullFlavor="NA" /> <code codeSystem="local" code="LY#" displayName= "LYMPHOCYTE #" /> <statusCode code="completed" /> < effectiveTime value="654372012393" /> <value unit="k/cumm" xsi:type="PQ " value="1.2" /> <referenceRange> <observationRange> <text>1.0-4.0</text> </observationRange> </ referenceRange> </observation> </component> <component> <observation moodCode="EVN" classCode="OBS"> <templateId root= "216.840.1.228971.22.4.2" /> <id nullFlavor="NA" /> < code codeSystem="local" code="LY%" displayName="LYMPHOCYTE %" /> <statusCode code="completed" /> <effectiveTime value="348326933613" /> <value unit="%" xsi:type="PQ" value="20" /> < referenceRange> <observationRange> <text>20-30</text> </observationRange> </referenceRange> </observation> </component> <component> <observation moodCode="EVN" classCode= "OBS"> <templateId root="216.840.1.973247.10..22.4.2" /> < id nullFlavor="NA" /> <code codeSystem="local" code="MCH" displayName= "MEAN CELL HGB" /> <statusCode code="completed" /> < effectiveTime value="997218087989" /> <value unit="pg" xsi:type="PQ" value="29.5" /> <referenceRange> <observationRange> <text>27.0-33.0</text> </observationRange> </ referenceRange> </observation> </component> <component> <observation moodCode="EVN" classCode="OBS"> <templateId root= "05.02.840.1.636809.10...4.2" /> <id nullFlavor="NA" /> < code codeSystem="local" code="MCHC" displayName="MEAN CELL HGB CONCENTRATION" / > <statusCode code="completed" /> <effectiveTime value= "091884233273" /> <value unit="g/dL" xsi:type="PQ" value="33.6" /> <referenceRange> <observationRange> <text>32.0- 37.0</text> </observationRange> </referenceRange> </ observation> </component> <component> <observation moodCode= "EVN" classCode="OBS"> <templateId root="05.02.840.1.058467.10.20.22.4.2 " /> <id nullFlavor="NA" /> <code codeSystem="local" code="MCV " displayName="MEAN CELL VOLUME" /> <statusCode code="completed" /> <effectiveTime value="531903322159" /> <value unit="fl" xsi:type ="PQ" value="87.8" /> <referenceRange> <observationRange> <text>80.0-100.0</text> </observationRange> </ referenceRange> </observation> </component> <component> <observation moodCode="EVN" classCode="OBS"> <templateId root= "216.840.1.944417.10..22.4.2" /> <id nullFlavor="NA" /> < code codeSystem="local" code="MO#" displayName="MONOCYTE #" /> < statusCode code="completed" /> <effectiveTime value="343956645356" /> <value unit="k/cumm" xsi:type="PQ" value="0.7" /> < referenceRange> <observationRange> <text>0.1-1.0</text> </observationRange> </referenceRange> </observation > </component> <component> <observation moodCode="EVN" classCode="OBS"> <templateId root="2.16.840.1.025761.10.20.22.4.2" /> <id nullFlavor="NA" /> <code codeSystem="local" code="MO% " displayName="MONOCYTE %" /> <statusCode code="completed" /> <effectiveTime value="263383522172" /> <value unit="%" xsi: type="PQ" value="11" /> <interpretationCode codeSystem="local" code="* " /> <referenceRange> <observationRange> <text> 4-6</text> </observationRange> </referenceRange> </ observation> </component> <component> <observation moodCode= "EVN" classCode="OBS"> <templateId root="216.840.1.532186.10..4.2 " /> <id nullFlavor="NA" /> <code codeSystem="local" code="RBC " displayName="RED BLOOD CELL" /> <statusCode code="completed" /> <effectiveTime value="068982442210" /> <value unit="m/cumm" xsi: type="PQ" value="4.92" /> <referenceRange> <observationRange > <text>4.00-6.00</text> </observationRange> </ referenceRange> </observation> </component> <component> <observation moodCode="EVN" classCode="OBS"> <templateId root= "216.840.1.077227...4.2" /> <id nullFlavor="NA" /> < code codeSystem="local" code="RDW" displayName="RED CELL DISTRIBUTION WIDTH" /> <statusCode code="completed" /> <effectiveTime value= "611555967282" /> <value unit="%" xsi:type="PQ" value="14.0" /> <referenceRange> <observationRange> <text>11.0- 15.6</text> </observationRange> </referenceRange> </ observation> </component> <component> <observation moodCode= "EVN" classCode="OBS"> <templateId root="16.840.1.616085.10..22.4.2 " /> <id nullFlavor="NA" /> <code codeSystem="local" code="WBC " displayName="WHITE BLOOD CELL" /> <statusCode code="completed" /> <effectiveTime value="958118823398" /> <value unit="k/cumm" xsi: type="PQ" value="5.8" /> <referenceRange> <observationRange > <text>5.0-10.0</text> </observationRange> </ referenceRange> </observation> </component> <component> <observation moodCode="EVN" classCode="OBS"> <templateId root= "05.02.840.1.326757.10.20.22.4.2" /> <id nullFlavor="NA" /> < code codeSystem="local" code="HGBT" displayName="HEMOGLOBIN" /> < statusCode code="completed" /> <effectiveTime value="523085787003" /> <value unit="gm/dL" xsi:type="PQ" value="14.5" /> < referenceRange> <observationRange> <text>12.0-16.0</text > </observationRange> </referenceRange> </observation > </component> <component> <observation moodCode="EVN" classCode="OBS"> <templateId root="840.1.814800.10.20.22.4.2" /> <id nullFlavor="NA" /> <code codeSystem="local" code="HCTT" displayName="HEMATOCRIT" /> <statusCode code="completed" /> < effectiveTime value="932947341989" /> <value unit="%" xsi:type="PQ " value="43.2" /> <referenceRange> <observationRange> <text>37.0-47.0</text> </observationRange> </ referenceRange> </observation> </component> <component> <observation moodCode="EVN" classCode="OBS"> <templateId root= "05.02.840.1.623651.10.20.22.4.2" /> <id nullFlavor="NA" /> < code codeSystem="local" code="PLT" displayName="PLATELET COUNT" /> < statusCode code="completed" /> <effectiveTime value="547276976408" /> <value unit="k/cumm" xsi:type="PQ" value="220" /> < referenceRange> <observationRange> <text>150-400</text> </observationRange> </referenceRange> </observation > </component> <component> <observation moodCode="EVN" classCode="OBS"> <templateId root="05.02.840.1.598809.01.03.22.4.2" /> <id nullFlavor="NA" /> <code codeSystem="local" code="MB" displayName="Microbiology" /> <statusCode code="completed" /> <effectiveTime value="692012034443" /> <value unit="" xsi:type="PQ" value="" /> <referenceRange> <observationRange> <text /> </observationRange> </referenceRange> </ observation> </component> </organizer> </entry> <entry> <organizer moodCode="EVN" classCode="BATTERY"> <templateId root= "840.1.193475.01.03.22.4.1" /> <id nullFlavor="NA" /> <code codeSystem="local" code="LIVER" displayName="HEPATIC FUNCTION PANEL" /> < statusCode code="completed" /> <component> <observation moodCode= "EVN" classCode="OBS"> <templateId root="05.02.840.1.146795.22.4.2 " /> <id nullFlavor="NA" /> <code codeSystem="local" code= "BILUC" displayName="BILI UNCONJUGATED" /> <statusCode code="completed " /> <effectiveTime value="368903153389" /> <value unit="mg/dL " xsi:type="PQ" value="2.2" /> <interpretationCode codeSystem="local" code="*" /> <referenceRange> <observationRange> <text>0.0-0.7</text> </observationRange> </referenceRange > </observation> </component> <component> <observation moodCode="EVN" classCode="OBS"> <templateId root= "16.840.1.151579.10..4.2" /> <id nullFlavor="NA" /> < code codeSystem="local" code="AST" displayName="AST/SGOT" /> < statusCode code="completed" /> <effectiveTime value="144528392219" /> <value unit="Units/L" xsi:type="PQ" value="93" /> < interpretationCode codeSystem="local" code="*" /> <referenceRange> <observationRange> <text>10-37</text> </ observationRange> </referenceRange> </observation> </ component> <component> <observation moodCode="EVN" classCode="OBS"> <templateId root="05.02.840.1.836918.01.03.22.4.2" /> <id nullFlavor="NA" /> <code codeSystem="local" code="ALT" displayName="ALT /SGPT" /> <statusCode code="completed" /> <effectiveTime value ="404982972355" /> <value unit="Units/L" xsi:type="PQ" value="47" /> <referenceRange> <observationRange> <text>< 66</text> </observationRange> </referenceRange> </ observation> </component> <component> <observation moodCode= "EVN" classCode="OBS"> <templateId root="05.02.840.1.906838..22.4.2 " /> <id nullFlavor="NA" /> <code codeSystem="local" code="TP " displayName="TOTAL PROTEIN" /> <statusCode code="completed" /> <effectiveTime value="468806572811" /> <value unit="gm/dL" xsi:type ="PQ" value="6.5" /> <referenceRange> <observationRange> <text>6.4-8.2</text> </observationRange> </ referenceRange> </observation> </component> <component> <observation moodCode="EVN" classCode="OBS"> <templateId root= "16.840.1.598574.10..22.4.2" /> <id nullFlavor="NA" /> < code codeSystem="local" code="ALB" displayName="ALBUMIN" /> < statusCode code="completed" /> <effectiveTime value="632398178083" /> <value unit="gm/dL" xsi:type="PQ" value="3.6" /> < referenceRange> <observationRange> <text>3.4-5.0</text> </observationRange> </referenceRange> </observation > </component> <component> <observation moodCode="EVN" classCode="OBS"> <templateId root="16.840.1.856059.10.20.22.4.2" /> <id nullFlavor="NA" /> <code codeSystem="local" code="BILTOT" displayName="BILI TOTAL" /> <statusCode code="completed" /> < effectiveTime value="665916575453" /> <value unit="mg/dL" xsi:type="PQ " value="2.6" /> <interpretationCode codeSystem="local" code="*" /> <referenceRange> <observationRange> <text>0.0-1.0 </text> </observationRange> </referenceRange> </ observation> </component> <component> <observation moodCode= "EVN" classCode="OBS"> <templateId root="05.02.840.1.186513.10.20.22.4.2 " /> <id nullFlavor="NA" /> <code codeSystem="local" code= "ALKP" displayName="ALKALINE PHOSPHATASE TOTAL" /> <statusCode code= "completed" /> <effectiveTime value="461625714799" /> <value unit="IU/L" xsi:type="PQ" value="113" /> <referenceRange> < observationRange> <text>45-117</text> </observationRange > </referenceRange> </observation> </component> < component> <observation moodCode="EVN" classCode="OBS"> < templateId root="05.02.840.1.509585.10..4.2" /> <id nullFlavor="NA " /> <code codeSystem="local" code="BILC" displayName="BILI CONJUGATED " /> <statusCode code="completed" /> <effectiveTime value= "951526864771" /> <value unit="mg/dL" xsi:type="PQ" value="0.4" /> <interpretationCode codeSystem="local" code="*" /> < referenceRange> <observationRange> <text>0.0-0.3</text> </observationRange> </referenceRange> </observation > </component> <component> <observation moodCode="EVN" classCode="OBS"> <templateId root="05.02.840.1.094001.10.20.22.4.2" /> <id nullFlavor="NA" /> <code codeSystem="local" code="MB" displayName="Microbiology" /> <statusCode code="completed" /> <effectiveTime value="937195945148" /> <value unit="" xsi:type="PQ" value="" /> <referenceRange> <observationRange> <text /> </observationRange> </referenceRange> </ observation> </component> </organizer> </entry> <entry> <organizer moodCode="EVN" classCode="BATTERY"> <templateId root= "05.02.840.1.663594.10...4.1" /> <id nullFlavor="NA" /> <code codeSystem="local" code="LIP" displayName="LIPASE" /> <statusCode code= "completed" /> <component> <observation moodCode="EVN" classCode= "OBS"> <templateId root="840.1.692378.01.03.22.4.2" /> < id nullFlavor="NA" /> <code codeSystem="local" code="LIP" displayName= "LIPASE" /> <statusCode code="completed" /> <effectiveTime value="590547775382" /> <value unit="Units/L" xsi:type="PQ" value="119 " /> <referenceRange> <observationRange> <text> 73-393</text> </observationRange> </referenceRange> < /observation> </component> </organizer> </entry> <entry> < organizer moodCode="EVN" classCode="BATTERY"> <templateId root= "05.02.840.1.499279.01.03.22.4.1" /> <id nullFlavor="NA" /> <code codeSystem="local" code="PREGU" displayName="UR TEST" /> < statusCode code="completed" /> <component> <observation moodCode= "EVN" classCode="OBS"> <templateId root="05.02.840.1.518374.10.4.2 " /> <id nullFlavor="NA" /> <code codeSystem="local" code= "PREGU" displayName="UR TEST" /> <statusCode code="completed " /> <effectiveTime value="377935144603" /> <value unit="" xsi :type="PQ" value="NEGATIVE" /> <referenceRange> < observationRange> <text>NEGATIVE</text> </ observationRange> </referenceRange> </observation> </ component> <component> <observation moodCode="EVN" classCode="OBS"> <templateId root="05.02.840.1.891001.01.03.22.4.2" /> <id nullFlavor="NA" /> <code codeSystem="local" code="MB" displayName= "Microbiology" /> <statusCode code="completed" /> < effectiveTime value="750583706682" /> <value unit="" xsi:type="PQ" value="" /> <referenceRange> <observationRange> <text /> </observationRange> </referenceRange> </ observation> </component> </organizer> </entry> <entry> <organizer moodCode="EVN" classCode="BATTERY"> <templateId root= "05.02.840.1.610202.01.03.22.4.1" /> <id nullFlavor="NA" /> <code codeSystem="local" code="iCHEM8" displayName="CHEM/HEM PROFILE-BEDSIDE" /> <statusCode code="completed" /> <component> <observation moodCode= "EVN" classCode="OBS"> <templateId root="05.02.840.1.679892.01.03.22.4.2 " /> <id nullFlavor="NA" /> <code codeSystem="local" code="K" displayName="POTASSIUM" /> <statusCode code="completed" /> < effectiveTime value="370553762916" /> <value unit="mmol/L" xsi:type="PQ " value="3.9" /> <referenceRange> <observationRange> <text>3.5-5.3</text> </observationRange> </ referenceRange> </observation> </component> <component> <observation moodCode="EVN" classCode="OBS"> <templateId root= "16.840.1.841550.10.22.4.2" /> <id nullFlavor="NA" /> < code codeSystem="local" code="CMETHOD" displayName="METHOD" /> < statusCode code="completed" /> <effectiveTime value="200201119738" /> <value unit="" xsi:type="PQ" value="Bedside" /> < referenceRange> <observationRange> <text /> < /observationRange> </referenceRange> </observation> </ component> <component> <observation moodCode="EVN" classCode="OBS"> <templateId root="05.02.840.1.739235.10.4.2" /> <id nullFlavor="NA" /> <code codeSystem="local" code="GAP" displayName= "ANION GAP" /> <statusCode code="completed" /> <effectiveTime value="653758739563" /> <value unit="mmol/L" xsi:type="PQ" value="18" / > <referenceRange> <observationRange> <text>10- 20</text> </observationRange> </referenceRange> </ observation> </component> <component> <observation moodCode= "EVN" classCode="OBS"> <templateId root="05.02.840.1.173935.102022.4.2 " /> <id nullFlavor="NA" /> <code codeSystem="local" code= "HMETHOD" displayName="METHOD" /> <statusCode code="completed" /> <effectiveTime value="232746182737" /> <value unit="" xsi:type="PQ " value="Bedside" /> <referenceRange> <observationRange> <text /> </observationRange> </referenceRange> </observation> </component> <component> <observation moodCode="EVN" classCode="OBS"> <templateId root= "216.840.1.899231.10..22.4.2" /> <id nullFlavor="NA" /> < code codeSystem="local" code="GLU" displayName="GLUCOSE" /> < statusCode code="completed" /> <effectiveTime value="806628564655" /> <value unit="mg/dL" xsi:type="PQ" value="101" /> < interpretationCode codeSystem="local" code="*" /> <referenceRange> <observationRange> <text>70-99</text> </ observationRange> </referenceRange> </observation> </ component> <component> <observation moodCode="EVN" classCode="OBS"> <templateId root="05.02.840.1.436832.01.03.22.4.2" /> <id nullFlavor="NA" /> <code codeSystem="local" code="BUN" displayName= "BLOOD UREA NITROGEN" /> <statusCode code="completed" /> < effectiveTime value="697132636313" /> <value unit="mg/dL" xsi:type="PQ " value="6" /> <interpretationCode codeSystem="local" code="*" /> <referenceRange> <observationRange> <text>7-20</ text> </observationRange> </referenceRange> </ observation> </component> <component> <observation moodCode= "EVN" classCode="OBS"> <templateId root="216.840.1.554039..22.4.2 " /> <id nullFlavor="NA" /> <code codeSystem="local" code= "CREAT" displayName="CREATININE" /> <statusCode code="completed" /> <effectiveTime value="243599641453" /> <value unit="mg/dL" xsi: type="PQ" value="0.6" /> <referenceRange> <observationRange > <text>0.6-1.0</text> </observationRange> </ referenceRange> </observation> </component> <component> <observation moodCode="EVN" classCode="OBS"> <templateId root= "2.16.840.1.624828.10..22.4.2" /> <id nullFlavor="NA" /> < code codeSystem="local" code="HGBT" displayName="HEMOGLOBIN" /> < statusCode code="completed" /> <effectiveTime value="" /> <value unit="gm/dL" xsi:type="PQ" value="15.0" /> < referenceRange> <observationRange> <text>12.0-16.0</text > </observationRange> </referenceRange> </observation > </component> <component> <observation moodCode="EVN" classCode="OBS"> <templateId root="2.16.840.1.728928.10..22.4.2" /> <id nullFlavor="NA" /> <code codeSystem="local" code="HCTT" displayName="HEMATOCRIT" /> <statusCode code="completed" /> < effectiveTime value="755420630971" /> <value unit="%" xsi:type="PQ " value="44.0" /> <referenceRange> <observationRange> <text>37.0-47.0</text> </observationRange> </ referenceRange> </observation> </component> <component> <observation moodCode="EVN" classCode="OBS"> <templateId root= "216.840.1.496196.10..22.4.2" /> <id nullFlavor="NA" /> < code codeSystem="local" code="NA" displayName="SODIUM" /> <statusCode code="completed" /> <effectiveTime value="781573255862" /> < value unit="mmol/L" xsi:type="PQ" value="139" /> <referenceRange> <observationRange> <text>135-148</text> </ observationRange> </referenceRange> </observation> </ component> <component> <observation moodCode="EVN" classCode="OBS"> <templateId root="16.840.1.447400.10...4.2" /> <id nullFlavor="NA" /> <code codeSystem="local" code="CL" displayName= "CHLORIDE" /> <statusCode code="completed" /> <effectiveTime value="" /> <value unit="mmol/L" xsi:type="PQ" value="106" /> <referenceRange> <observationRange> <text>98 -110</text> </observationRange> </referenceRange> </ observation> </component> <component> <observation moodCode= "EVN" classCode="OBS"> <templateId root="05.02.840.1.536675.10..22.4.2 " /> <id nullFlavor="NA" /> <code codeSystem="local" code="CO2 " displayName="CARBON DIOXIDE" /> <statusCode code="completed" /> <effectiveTime value="" /> <value unit="mmol/L" xsi: type="PQ" value="20" /> <interpretationCode codeSystem="local" code="* " /> <referenceRange> <observationRange> <text> 21-32</text> </observationRange> </referenceRange> </ observation> </component> <component> <observation moodCode= "EVN" classCode="OBS"> <templateId root="216.840.1.778711.10..22.4.2 " /> <id nullFlavor="NA" /> <code codeSystem="local" code= "ELI" displayName="CALCIUM IONIZED" /> <statusCode code="completed" / > <effectiveTime value="029216432866" /> <value unit="mg/dL" xsi:type="PQ" value="4.5" /> <referenceRange> < observationRange> <text>4.5-5.3</text> </ observationRange> </referenceRange> </observation> </ component> <component> <observation moodCode="EVN" classCode="OBS"> <templateId root="05.02.840.1.869929.10.4.2" /> <id nullFlavor="NA" /> <code codeSystem="local" code="MB" displayName= "Microbiology" /> <statusCode code="completed" /> < effectiveTime value="222018381052" /> <value unit="" xsi:type="PQ" value="" /> <referenceRange> <observationRange> <text /> </observationRange> </referenceRange> </ observation> </component> </organizer> </entry> <entry> <organizer moodCode="EVN" classCode="BATTERY"> <templateId root= "216.840.1.380288.10..22.4.1" /> <id nullFlavor="NA" /> <code codeSystem="local" code="iTROPI" displayName="TROPONIN I BEDSIDE" /> < statusCode code="completed" /> <component> <observation moodCode= "EVN" classCode="OBS"> <templateId root="2.16.840.1.237801.10..22.4.2 " /> <id nullFlavor="NA" /> <code codeSystem="local" code= "CMETHOD" displayName="METHOD" /> <statusCode code="completed" /> <effectiveTime value="614437921845" /> <value xsi:type="ST" value= "<pre><b>TROPONIN I BEDSIDE</b> Bedside< 0.04</pre>" /> <referenceRange> <observationRange> <text / > </observationRange> </referenceRange> </observation > </component> <component> <observation moodCode="EVN" classCode="OBS"> <templateId root="2.16.840.1.160292.01.03.22.4.2" /> <id nullFlavor="NA" /> <code codeSystem="local" code="TROPI" displayName="TROPONIN I" /> <statusCode code="completed" /> < effectiveTime value="134057901565" /> <value xsi:type="ST" value="< pre><b>TROPONIN I BEDSIDE</b> Bedside< 0.04</pre>" /> <referenceRange> <observationRange> <text>< 0.11</text> </observationRange> </referenceRange> </ observation> </component> <component> <observation moodCode= "EVN" classCode="OBS"> <templateId root="2.16.840.1.483346.10..22.4.2 " /> <id nullFlavor="NA" /> <code codeSystem="local" code="MB " displayName="Microbiology" /> <statusCode code="completed" /> <effectiveTime value="777397457388" /> <value xsi:type="ST" value="& lt;pre><b>TROPONIN I BEDSIDE</b> Bedside< 0.04</pre>" / > <referenceRange> <observationRange> <text /> </observationRange> </referenceRange> </observation > </component> </organizer> </entry> <entry> <organizer moodCode= "EVN" classCode="BATTERY"> <templateId root="216.840.1.972088.10.20.22.4.1 " /> <id nullFlavor="NA" /> <code codeSystem="local" code="CBCD" displayName="CBC W/DIFF" /> <statusCode code="completed" /> <component > <observation moodCode="EVN" classCode="OBS"> <templateId root= "16.840.1.636707.10.20.22.4.2" /> <id nullFlavor="NA" /> < code codeSystem="local" code="GR#" displayName="GRANULOCYTE #" /> < statusCode code="completed" /> <effectiveTime value="217939435697" /> <value xsi:type="ST" value="<pre><b>CBC W/DIFF</b> 11.34.4913.439.387.529.834.114.8525912351.01.40.9</pre>" /> < referenceRange> <observationRange> <text>2.0-9.0</text> </observationRange> </referenceRange> </observation > </component> <component> <observation moodCode="EVN" classCode="OBS"> <templateId root="16.840.1.497557.10.20.22.4.2" /> <id nullFlavor="NA" /> <code codeSystem="local" code="GR% " displayName="GRANULOCYTE %" /> <statusCode code="completed" /> <effectiveTime value="269695063136" /> <value xsi:type="ST" value="<pre><b>CBC W/DIFF</b> .439.387.529.834.114.2347794233.40.9< /pre>" /> <interpretationCode codeSystem="local" code="*" /> < referenceRange> <observationRange> <text>50-75</text> </observationRange> </referenceRange> </observation> </component> <component> <observation moodCode="EVN" classCode= "OBS"> <templateId root="2.16.840.1.311056.10.2022.4.2" /> < id nullFlavor="NA" /> <code codeSystem="local" code="LY#" displayName= "LYMPHOCYTE #" /> <statusCode code="completed" /> < effectiveTime value="683943021088" /> <value xsi:type="ST" value="<pre> <b>CBC W/DIFF</b> .439.387.529.834.114.4953805851.40.9</pre>" /> <referenceRange> <observationRange> <text>1.0- 4.0</text> </observationRange> </referenceRange> </ observation> </component> <component> <observation moodCode= "EVN" classCode="OBS"> <templateId root="216.840.1.265274.10.2022.4.2 " /> <id nullFlavor="NA" /> <code codeSystem="local" code="LY& #37;" displayName="LYMPHOCYTE %" /> <statusCode code="completed" / > <effectiveTime value="274162190141" /> <value xsi:type="ST" value="<pre><b>CBC W/DIFF</b> .43.387.529.834.114.4239402153.40.9< /pre>" /> <interpretationCode codeSystem="local" code="*" /> < referenceRange> <observationRange> <text>20-30</text> </observationRange> </referenceRange> </observation> </component> <component> <observation moodCode="EVN" classCode= "OBS"> <templateId root="2.16.840.1.172352.10..22.4.2" /> < id nullFlavor="NA" /> <code codeSystem="local" code="MCH" displayName= "MEAN CELL HGB" /> <statusCode code="completed" /> < effectiveTime value="698843552622" /> <value xsi:type="ST" value="<pre> <b>CBC W/DIFF</b> .439.387.529.834.114.6294366112.40.9</pre>" /> <referenceRange> <observationRange> <text>27.0- 33.0</text> </observationRange> </referenceRange> </ observation> </component> <component> <observation moodCode= "EVN" classCode="OBS"> <templateId root="2.16.840.1.223831.10..22.4.2 " /> <id nullFlavor="NA" /> <code codeSystem="local" code= "MCHC" displayName="MEAN CELL HGB CONCENTRATION" /> <statusCode code= "completed" /> <effectiveTime value="243691534854" /> <value xsi:type="ST" value="<pre><b>CBC W/DIFF</b> .439.387.529.834.114.0904865268.40.9</pre>" /> < referenceRange> <observationRange> <text>32.0-37.0</text > </observationRange> </referenceRange> </observation > </component> <component> <observation moodCode="EVN" classCode="OBS"> <templateId root="2.16.840.1.873512.10.20.22.4.2" /> <id nullFlavor="NA" /> <code codeSystem="local" code="MCV" displayName="MEAN CELL VOLUME" /> <statusCode code="completed" /> <effectiveTime value="709985644237" /> <value xsi:type="ST" value= "<pre><b>CBC W/DIFF</b> .439.387.529.834.114.5234437284.40.9</pre> " /> <referenceRange> <observationRange> <text> 80.0-100.0</text> </observationRange> </referenceRange> </observation> </component> <component> <observation moodCode="EVN" classCode="OBS"> <templateId root= "2.16.840.1.054657.10.20.22.4.2" /> <id nullFlavor="NA" /> < code codeSystem="local" code="MO#" displayName="MONOCYTE #" /> < statusCode code="completed" /> <effectiveTime value="446570746397" /> <value xsi:type="ST" value="<pre><b>CBC W/DIFF</b> .439.387.529.834.114.2279312650.40.9</pre>" /> < referenceRange> <observationRange> <text>0.1-1.0</text> </observationRange> </referenceRange> </observation > </component> <component> <observation moodCode="EVN" classCode="OBS"> <templateId root="2.16.840.1.044651.10.20.22.4.2" /> <id nullFlavor="NA" /> <code codeSystem="local" code="MO% " displayName="MONOCYTE %" /> <statusCode code="completed" /> <effectiveTime value="153705349014" /> <value xsi:type="ST" value= "<pre><b>CBC W/DIFF</b> 3449.439.387.529.834.114.4803077137..40.9</pre> " /> <interpretationCode codeSystem="local" code="*" /> < referenceRange> <observationRange> <text>4-6</text> </observationRange> </referenceRange> </observation> </component> <component> <observation moodCode="EVN" classCode= "OBS"> <templateId root="2.16.840.1.222650.10.20.22.4.2" /> < id nullFlavor="NA" /> <code codeSystem="local" code="RBC" displayName= "RED BLOOD CELL" /> <statusCode code="completed" /> < effectiveTime value="804043974490" /> <value xsi:type="ST" value="<pre> <b>CBC W/DIFF</b> .3449.439.387.529.834.114.0049998667..40.9</pre>" /> <referenceRange> <observationRange> <text>4.00- 6.00</text> </observationRange> </referenceRange> </ observation> </component> <component> <observation moodCode= "EVN" classCode="OBS"> <templateId root="216.840.1.930573.10..22.4.2 " /> <id nullFlavor="NA" /> <code codeSystem="local" code="RDW " displayName="RED CELL DISTRIBUTION WIDTH" /> <statusCode code= "completed" /> <effectiveTime value="483666495582" /> <value xsi:type="ST" value="<pre><b>CBC W/DIFF</b> .439.387.529.834.114.2670474695..40.9</pre>" /> < referenceRange> <observationRange> <text>11.0-15.6</text > </observationRange> </referenceRange> </observation > </component> <component> <observation moodCode="EVN" classCode="OBS"> <templateId root="16.840.1.368955.10.22.4.2" /> <id nullFlavor="NA" /> <code codeSystem="local" code="WBC" displayName="WHITE BLOOD CELL" /> <statusCode code="completed" /> <effectiveTime value="929267780011" /> <value xsi:type="ST" value= "<pre><b>CBC W/DIFF</b> .439.387.529.834.114.5271020045..40.9</pre> " /> <interpretationCode codeSystem="local" code="*" /> < referenceRange> <observationRange> <text>5.0-10.0</text > </observationRange> </referenceRange> </observation > </component> <component> <observation moodCode="EVN" classCode="OBS"> <templateId root="216.840.1.427384.10.20.22.4.2" /> <id nullFlavor="NA" /> <code codeSystem="local" code="HGBT" displayName="HEMOGLOBIN" /> <statusCode code="completed" /> < effectiveTime value="289542854226" /> <value xsi:type="ST" value="<pre> <b>CBC W/DIFF</b> .439.387.529.834.114.8271580550.01.40.9</pre>" /> <referenceRange> <observationRange> <text>12.0- 16.0</text> </observationRange> </referenceRange> </ observation> </component> <component> <observation moodCode= "EVN" classCode="OBS"> <templateId root="2.16.840.1.241019.10..22.4.2 " /> <id nullFlavor="NA" /> <code codeSystem="local" code= "HCTT" displayName="HEMATOCRIT" /> <statusCode code="completed" /> <effectiveTime value="385915298248" /> <value xsi:type="ST" value ="<pre><b>CBC W/DIFF</b> .439.387.529.834.114.1406939813..40.9</pre> " /> <referenceRange> <observationRange> <text> 37.0-47.0</text> </observationRange> </referenceRange> </observation> </component> <component> <observation moodCode="EVN" classCode="OBS"> <templateId root= "216.840.1.356773.10..22.4.2" /> <id nullFlavor="NA" /> < code codeSystem="local" code="PLT" displayName="PLATELET COUNT" /> < statusCode code="completed" /> <effectiveTime value="320248953812" /> <value xsi:type="ST" value="<pre><b>CBC W/DIFF</b> 11.34.4913.439.387.529.834.114.7128631395.01.40.9</pre>" /> < referenceRange> <observationRange> <text>150-400</text> </observationRange> </referenceRange> </observation > </component> <component> <observation moodCode="EVN" classCode="OBS"> <templateId root="16.840.1.873440.10..22.4.2" /> <id nullFlavor="NA" /> <code codeSystem="local" code="MB" displayName="Microbiology" /> <statusCode code="completed" /> <effectiveTime value="385401074169" /> <value xsi:type="ST" value="<pre ><b>CBC W/DIFF</b> 11.344913.439.387.529.834.114.4014504943.01.40.9</pre>" /> <referenceRange> <observationRange> <text /> </observationRange> </referenceRange> </observation> </component> </organizer> </entry> <entry> <organizer moodCode="EVN " classCode="BATTERY"> <templateId root="05.02.840.1.582450.10..22.4.1" / > <id nullFlavor="NA" /> <code codeSystem="local" code="LIVER" displayName="HEPATIC FUNCTION PANEL" /> <statusCode code="completed" /> <component> <observation moodCode="EVN" classCode="OBS"> < templateId root="16.840.1.207309.10.20.22.4.2" /> <id nullFlavor="NA " /> <code codeSystem="local" code="BILUC" displayName="BILI UNCONJUGATED" /> <statusCode code="completed" /> < effectiveTime value="240678785235" /> <value unit="mg/dL" xsi:type="PQ " value="0.4" /> <referenceRange> <observationRange> <text>0.0-0.7</text> </observationRange> </ referenceRange> </observation> </component> <component> <observation moodCode="EVN" classCode="OBS"> <templateId root= "05.02.840.1.705403.10..4.2" /> <id nullFlavor="NA" /> < code codeSystem="local" code="AST" displayName="AST/SGOT" /> < statusCode code="completed" /> <effectiveTime value="678227688676" /> <value unit="Units/L" xsi:type="PQ" value="10" /> < referenceRange> <observationRange> <text>10-37</text> </observationRange> </referenceRange> </observation> </component> <component> <observation moodCode="EVN" classCode= "OBS"> <templateId root="05.02.840.1.132435.10...4.2" /> < id nullFlavor="NA" /> <code codeSystem="local" code="ALT" displayName= "ALT/SGPT" /> <statusCode code="completed" /> <effectiveTime value="961843145180" /> <value unit="Units/L" xsi:type="PQ" value="15" /> <referenceRange> <observationRange> <text>& lt; 66</text> </observationRange> </referenceRange> < /observation> </component> <component> <observation moodCode= "EVN" classCode="OBS"> <templateId root="05.02.840.1.337362.22.4.2 " /> <id nullFlavor="NA" /> <code codeSystem="local" code="TP " displayName="TOTAL PROTEIN" /> <statusCode code="completed" /> <effectiveTime value="" /> <value unit="gm/dL" xsi:type ="PQ" value="6.1" /> <interpretationCode codeSystem="local" code="*" / > <referenceRange> <observationRange> <text>6.4 -8.2</text> </observationRange> </referenceRange> </ observation> </component> <component> <observation moodCode= "EVN" classCode="OBS"> <templateId root="16.840.1.037563.01.03.22.4.2 " /> <id nullFlavor="NA" /> <code codeSystem="local" code="ALB " displayName="ALBUMIN" /> <statusCode code="completed" /> < effectiveTime value="" /> <value unit="gm/dL" xsi:type="PQ " value="3.2" /> <interpretationCode codeSystem="local" code="*" /> <referenceRange> <observationRange> <text>3.4-5.0 </text> </observationRange> </referenceRange> </ observation> </component> <component> <observation moodCode= "EVN" classCode="OBS"> <templateId root="05.02.840.1.745412.1022.4.2 " /> <id nullFlavor="NA" /> <code codeSystem="local" code= "BILTOT" displayName="BILI TOTAL" /> <statusCode code="completed" /> <effectiveTime value="" /> <value unit="mg/dL" xsi: type="PQ" value="0.5" /> <referenceRange> <observationRange > <text>0.0-1.0</text> </observationRange> </ referenceRange> </observation> </component> <component> <observation moodCode="EVN" classCode="OBS"> <templateId root= "05.02.840.1.545431.10..4.2" /> <id nullFlavor="NA" /> < code codeSystem="local" code="ALKP" displayName="ALKALINE PHOSPHATASE TOTAL" /> <statusCode code="completed" /> <effectiveTime value= "445023280578" /> <value unit="IU/L" xsi:type="PQ" value="89" /> <referenceRange> <observationRange> <text>45-117</ text> </observationRange> </referenceRange> </ observation> </component> <component> <observation moodCode= "EVN" classCode="OBS"> <templateId root="840.1.163910.01.03.22.4.2 " /> <id nullFlavor="NA" /> <code codeSystem="local" code= "BILC" displayName="BILI CONJUGATED" /> <statusCode code="completed" / > <effectiveTime value="732193155728" /> <value unit="mg/dL" xsi:type="PQ" value="0.1" /> <referenceRange> < observationRange> <text>0.0-0.3</text> </ observationRange> </referenceRange> </observation> </ component> <component> <observation moodCode="EVN" classCode="OBS"> <templateId root="05.02.840.1.968556..22.4.2" /> <id nullFlavor="NA" /> <code codeSystem="local" code="MB" displayName= "Microbiology" /> <statusCode code="completed" /> < effectiveTime value="772552587034" /> <value unit="" xsi:type="PQ" value="" /> <referenceRange> <observationRange> <text /> </observationRange> </referenceRange> </ observation> </component> </organizer> </entry> <entry> <organizer moodCode="EVN" classCode="BATTERY"> <templateId root= "16.840.1.725474.10.22.4.1" /> <id nullFlavor="NA" /> <code codeSystem="local" code="LIP" displayName="LIPASE" /> <statusCode code= "completed" /> <component> <observation moodCode="EVN" classCode= "OBS"> <templateId root="05.02.840.1.825482...4.2" /> < id nullFlavor="NA" /> <code codeSystem="local" code="LIP" displayName= "LIPASE" /> <statusCode code="completed" /> <effectiveTime value="685477776664" /> <value unit="Units/L" xsi:type="PQ" value="133 " /> <referenceRange> <observationRange> <text> 73-393</text> </observationRange> </referenceRange> < /observation> </component> </organizer> </entry> <entry> < organizer moodCode="EVN" classCode="BATTERY"> <templateId root= "05.02.840.1.123871.10.22.4.1" /> <id nullFlavor="NA" /> <code codeSystem="local" code="iCHEM8" displayName="CHEM/HEM PROFILE-BEDSIDE" /> <statusCode code="completed" /> <component> <observation moodCode= "EVN" classCode="OBS"> <templateId root="05.02.840.1.178359...4.2 " /> <id nullFlavor="NA" /> <code codeSystem="local" code="K" displayName="POTASSIUM" /> <statusCode code="completed" /> < effectiveTime value="421685949885" /> <value xsi:type="ST" value="<pre> <b>CHEM/HEM PROFILE-BEDSIDE</b> Hgmjpug51.9Wpfqrkw5440.46781289258947.64.5</ pre>" /> <interpretationCode codeSystem="local" code="*" /> < referenceRange> <observationRange> <text>3.5-5.3</text> </observationRange> </referenceRange> </observation > </component> <component> <observation moodCode="EVN" classCode="OBS"> <templateId root="2.16.840.1.496768.10..4.2" /> <id nullFlavor="NA" /> <code codeSystem="local" code="CMETHOD " displayName="METHOD" /> <statusCode code="completed" /> < effectiveTime value="423899758109" /> <value xsi:type="ST" value="<pre> <b>CHEM/HEM PROFILE-BEDSIDE</b> Tvjkkaq05.7Jfooasy1408.67163663904568.64.5</ pre>" /> <referenceRange> <observationRange> < text /> </observationRange> </referenceRange> </ observation> </component> <component> <observation moodCode= "EVN" classCode="OBS"> <templateId root="216.840.1.590573.01.03.22.4.2 " /> <id nullFlavor="NA" /> <code codeSystem="local" code="GAP " displayName="ANION GAP" /> <statusCode code="completed" /> < effectiveTime value="803564613052" /> <value xsi:type="ST" value="<pre> <b>CHEM/HEM PROFILE-BEDSIDE</b> Uzrplvy89.5Qbmtpvi0931.02741842314361.64.5</ pre>" /> <referenceRange> <observationRange> < text>10-20</text> </observationRange> </referenceRange> </observation> </component> <component> <observation moodCode="EVN" classCode="OBS"> <templateId root= "2.16.840.1.599838.10..22.4.2" /> <id nullFlavor="NA" /> < code codeSystem="local" code="HMETHOD" displayName="METHOD" /> < statusCode code="completed" /> <effectiveTime value="118969475280" /> <value xsi:type="ST" value="<pre><b>CHEM/HEM PROFILE-BEDSIDE</b> Emdgzjk905Vuvqcfk6111.06950174866094.64.5</pre>" /> < referenceRange> <observationRange> <text /> < /observationRange> </referenceRange> </observation> </ component> <component> <observation moodCode="EVN" classCode="OBS"> <templateId root="2.16.840.1.655965.10..22.4.2" /> <id nullFlavor="NA" /> <code codeSystem="local" code="GLU" displayName= "GLUCOSE" /> <statusCode code="completed" /> <effectiveTime value="234895373569" /> <value xsi:type="ST" value="<pre><b>CHEM/HEM PROFILE-BEDSIDE</b> Foblcmz790Seqraji1576.60679109922438.64.5</pre>" /> <interpretationCode codeSystem="local" code="*" /> < referenceRange> <observationRange> <text>70-99</text> </observationRange> </referenceRange> </observation> </component> <component> <observation moodCode="EVN" classCode= "OBS"> <templateId root="216.840.1.114542.10..22.4.2" /> < id nullFlavor="NA" /> <code codeSystem="local" code="BUN" displayName= "BLOOD UREA NITROGEN" /> <statusCode code="completed" /> < effectiveTime value="914176500027" /> <value xsi:type="ST" value="<pre> <b>CHEM/HEM PROFILE-BEDSIDE</b> Alduwyi30.938.3Cimzujn4900.55298657825587.64.5</ pre>" /> <referenceRange> <observationRange> < text>7-20</text> </observationRange> </referenceRange> </observation> </component> <component> <observation moodCode="EVN" classCode="OBS"> <templateId root= "216.840.1.742828.10...4.2" /> <id nullFlavor="NA" /> < code codeSystem="local" code="CREAT" displayName="CREATININE" /> < statusCode code="completed" /> <effectiveTime value="046355628622" /> <value xsi:type="ST" value="<pre><b>CHEM/HEM PROFILE-BEDSIDE</b> Qljlfgz22.938.3Emoysiv6668.74913265684577.64.5</pre>" /> < referenceRange> <observationRange> <text>0.6-1.0</text> </observationRange> </referenceRange> </observation > </component> <component> <observation moodCode="EVN" classCode="OBS"> <templateId root="216.840.1.918116.10.20.22.4.2" /> <id nullFlavor="NA" /> <code codeSystem="local" code="HGBT" displayName="HEMOGLOBIN" /> <statusCode code="completed" /> < effectiveTime value="894492935263" /> <value xsi:type="ST" value="<pre> <b>CHEM/HEM PROFILE-BEDSIDE</b> Ofqanpi518.4Cwwoocn5684.82508222661208.64.5</ pre>" /> <referenceRange> <observationRange> < text>12.0-16.0</text> </observationRange> </referenceRange> </observation> </component> <component> <observation moodCode="EVN" classCode="OBS"> <templateId root= "2.16.840.1.559998.10...4.2" /> <id nullFlavor="NA" /> < code codeSystem="local" code="HCTT" displayName="HEMATOCRIT" /> < statusCode code="completed" /> <effectiveTime value="433510523076" /> <value xsi:type="ST" value="<pre><b>CHEM/HEM PROFILE-BEDSIDE</b> Wnbzjrg47.4Ajynnsp4795.22027397014405.64.5</pre>" /> < referenceRange> <observationRange> <text>37.0-47.0</text > </observationRange> </referenceRange> </observation > </component> <component> <observation moodCode="EVN" classCode="OBS"> <templateId root="216.840.1.213977.10..22.4.2" /> <id nullFlavor="NA" /> <code codeSystem="local" code="NA" displayName="SODIUM" /> <statusCode code="completed" /> < effectiveTime value="924213173077" /> <value xsi:type="ST" value="<pre> <b>CHEM/HEM PROFILE-BEDSIDE</b> [id number]</ pre>" /> <referenceRange> <observationRange> < text>135-148</text> </observationRange> </referenceRange> </observation> </component> <component> <observation moodCode="EVN" classCode="OBS"> <templateId root= "[id number]..22.4.2" /> <id nullFlavor="NA" /> < code codeSystem="local" code="CL" displayName="CHLORIDE" /> < statusCode code="completed" /> <effectiveTime value="[id number]" /> <value xsi:type="ST" value="<pre><b>CHEM/HEM PROFILE-BEDSIDE</b> [id number]</pre>" /> < referenceRange> <observationRange> <text>98-110</text> </observationRange> </referenceRange> </observation> </component> <component> <observation moodCode="EVN" classCode ="OBS"> <templateId root="[id number]..22.4.2" /> < id nullFlavor="NA" /> <code codeSystem="local" code="CO2" displayName= "CARBON DIOXIDE" /> <statusCode code="completed" /> < effectiveTime value="[id number]" /> <value xsi:type="ST" value="<pre> <b>CHEM/HEM PROFILE-BEDSIDE</b> [id number]</ pre>" /> <referenceRange> <observationRange> < text>21-32</text> </observationRange> </referenceRange> </observation> </component> <component> <observation moodCode="EVN" classCode="OBS"> <templateId root= "216.840.1.493154.10..22.4.2" /> <id nullFlavor="NA" /> < code codeSystem="local" code="ELI" displayName="CALCIUM IONIZED" /> < statusCode code="completed" /> <effectiveTime value="028376923056" /> <value xsi:type="ST" value="<pre><b>CHEM/HEM PROFILE-BEDSIDE</b> Yktlosz95.938.8Sbwdwrj5549.47015348425293.64.5</pre>" /> < referenceRange> <observationRange> <text>4.5-5.3</text> </observationRange> </referenceRange> </observation > </component> <component> <observation moodCode="EVN" classCode="OBS"> <templateId root="05.02.840.1.089047.10...4.2" /> <id nullFlavor="NA" /> <code codeSystem="local" code="MB" displayName="Microbiology" /> <statusCode code="completed" /> <effectiveTime value="629207309986" /> <value xsi:type="ST" value="<pre ><b>CHEM/HEM PROFILE-BEDSIDE</b> Xil[id number]< /pre>" /> <referenceRange> <observationRange> < text /> </observationRange> </referenceRange> </ observation> </component> </organizer> </entry> <entry> <organizer moodCode="EVN" classCode="BATTERY"> <templateId root= "216.840.1.003419.10..22.4.1" /> <id nullFlavor="NA" /> <code codeSystem="local" code="UA" displayName="URINALYSIS, ROUTINE" /> < statusCode code="completed" /> <component> <observation moodCode= "EVN" classCode="OBS"> <templateId root="216.840.1.235028.10.4.2 " /> <id nullFlavor="NA" /> <code codeSystem="local" code= "LEUESU" displayName="UA LEUKOCYTE ESTERASE DIPSTICK" /> <statusCode code="completed" /> <effectiveTime value="602328381922" /> < value unit="" xsi:type="PQ" value="NEGATIVE" /> <referenceRange> <observationRange> <text>NEGATIVE</text> </ observationRange> </referenceRange> </observation> </ component> <component> <observation moodCode="EVN" classCode="OBS"> <templateId root="05.02.840.1.385243.01.03.224.2" /> <id nullFlavor="NA" /> <code codeSystem="local" code="NITRIU" displayName= "UA NITRITE DIPSTICK" /> <statusCode code="completed" /> < effectiveTime value="111309321647" /> <value unit="" xsi:type="PQ" value="POSITIVE" /> <interpretationCode codeSystem="local" code="*" /> <referenceRange> <observationRange> <text> NEGATIVE</text> </observationRange> </referenceRange> </observation> </component> <component> <observation moodCode ="EVN" classCode="OBS"> <templateId root= "05.02.840.1.692285...4.2" /> <id nullFlavor="NA" /> < code codeSystem="local" code="PROTEIU" displayName="UA PROTEIN DIPSTICK" /> <statusCode code="completed" /> <effectiveTime value= "690896771547" /> <value unit="" xsi:type="PQ" value="NEGATIVE" /> <referenceRange> <observationRange> <text>NEGATIVE </text> </observationRange> </referenceRange> </ observation> </component> <component> <observation moodCode= "EVN" classCode="OBS"> <templateId root="16.840.1.351626.01.03.22.4.2 " /> <id nullFlavor="NA" /> <code codeSystem="local" code= "DGLUU" displayName="UA GLUCOSE DIPSTICK" /> <statusCode code= "completed" /> <effectiveTime value="379391706293" /> <value unit="" xsi:type="PQ" value="NEGATIVE" /> <referenceRange> < observationRange> <text>NEGATIVE</text> </ observationRange> </referenceRange> </observation> </ component> <component> <observation moodCode="EVN" classCode="OBS"> <templateId root="840.1.550591.01.03.22.4.2" /> <id nullFlavor="NA" /> <code codeSystem="local" code="KETONU" displayName= "UA KETONE DIPSTICK" /> <statusCode code="completed" /> < effectiveTime value="620648547939" /> <value unit="" xsi:type="PQ" value="NEGATIVE" /> <referenceRange> <observationRange> <text>NEGATIVE</text> </observationRange> </ referenceRange> </observation> </component> <component> <observation moodCode="EVN" classCode="OBS"> <templateId root= "05.02.840.1.635207.10.22.4.2" /> <id nullFlavor="NA" /> < code codeSystem="local" code="UROBILU" displayName="UA UROBILINOGEN DIPSTICK" / > <statusCode code="completed" /> <effectiveTime value= "576660744930" /> <value unit="" xsi:type="PQ" value="NORMAL" /> <referenceRange> <observationRange> <text>NORMAL</ text> </observationRange> </referenceRange> </ observation> </component> <component> <observation moodCode= "EVN" classCode="OBS"> <templateId root="216.840.1.157637...22.4.2 " /> <id nullFlavor="NA" /> <code codeSystem="local" code= "BILU" displayName="UA BILIRUBIN DIPSTICK" /> <statusCode code= "completed" /> <effectiveTime value="081870166765" /> <value unit="" xsi:type="PQ" value="NEGATIVE" /> <referenceRange> < observationRange> <text>NEGATIVE</text> </ observationRange> </referenceRange> </observation> </ component> <component> <observation moodCode="EVN" classCode="OBS"> <templateId root="216.840.1.974362.01.03.22.4.2" /> <id nullFlavor="NA" /> <code codeSystem="local" code="CARITO" displayName="UA BLOOD DIPSTICK" /> <statusCode code="completed" /> < effectiveTime value="030336947167" /> <value unit="" xsi:type="PQ" value="1+" /> <interpretationCode codeSystem="local" code="*" /> <referenceRange> <observationRange> <text>NEGATIVE</ text> </observationRange> </referenceRange> </ observation> </component> <component> <observation moodCode= "EVN" classCode="OBS"> <templateId root="216.840.1.133146.22.4.2 " /> <id nullFlavor="NA" /> <code codeSystem="local" code= "SPGRU" displayName="UA SPECIFIC GRAVITY" /> <statusCode code= "completed" /> <effectiveTime value="125670591965" /> <value unit="" xsi:type="PQ" value="1.025" /> <referenceRange> < observationRange> <text>1.015-1.025</text> </ observationRange> </referenceRange> </observation> </ component> <component> <observation moodCode="EVN" classCode="OBS"> <templateId root="2.16.840.1.149075.01.03.22.4.2" /> <id nullFlavor="NA" /> <code codeSystem="local" code="SUSANA" displayName="UR PH" /> <statusCode code="completed" /> <effectiveTime value= "668425865367" /> <value unit="" xsi:type="PQ" value="5.5" /> <referenceRange> <observationRange> <text>5.0-7.0</text > </observationRange> </referenceRange> </observation > </component> <component> <observation moodCode="EVN" classCode="OBS"> <templateId root="216.840.1.660963.01.03.22.4.2" /> <id nullFlavor="NA" /> <code codeSystem="local" code="MB" displayName="Microbiology" /> <statusCode code="completed" /> <effectiveTime value="225888801329" /> <value unit="" xsi:type="PQ" value="" /> <referenceRange> <observationRange> <text /> </observationRange> </referenceRange> </ observation> </component> </organizer> </entry> <entry> <organizer moodCode="EVN" classCode="BATTERY"> <templateId root= "216.840.1.324628.10..22.4.1" /> <id nullFlavor="NA" /> <code codeSystem="local" code="UAMICRO" displayName="UA MICROSCOPIC" /> < statusCode code="completed" /> <component> <observation moodCode= "EVN" classCode="OBS"> <templateId root="16.840.1.311763.10..22.4.2 " /> <id nullFlavor="NA" /> <code codeSystem="local" code= "BACU" displayName="UA BACTERIA" /> <statusCode code="completed" /> <effectiveTime value="023126961800" /> <value unit="" xsi:type= "PQ" value="5+" /> <interpretationCode codeSystem="local" code="*" /> <referenceRange> <observationRange> <text> NEGATIVE</text> </observationRange> </referenceRange> </observation> </component> <component> <observation moodCode ="EVN" classCode="OBS"> <templateId root= "16.840.1.661309.10..22.4.2" /> <id nullFlavor="NA" /> < code codeSystem="local" code="EPIU" displayName="UA EPITHELIAL CELLS" /> <statusCode code="completed" /> <effectiveTime value="205443727665" /> <value unit="epi/hpf" xsi:type="PQ" value="3+" /> < interpretationCode codeSystem="local" code="*" /> <referenceRange> <observationRange> <text>0 - 1+</text> </ observationRange> </referenceRange> </observation> </ component> <component> <observation moodCode="EVN" classCode="OBS"> <templateId root="05.02.840.1.656533.10..22.4.2" /> <id nullFlavor="NA" /> <code codeSystem="local" code="MUCUSU" displayName= "UA MUCUS" /> <statusCode code="completed" /> <effectiveTime value="575076769165" /> <value unit="" xsi:type="PQ" value="3+" /> <interpretationCode codeSystem="local" code="*" /> < referenceRange> <observationRange> <text>NEG TO 1+</text > </observationRange> </referenceRange> </observation > </component> <component> <observation moodCode="EVN" classCode="OBS"> <templateId root="840.1.275787...4.2" /> <id nullFlavor="NA" /> <code codeSystem="local" code="RBCU" displayName="UA RBC" /> <statusCode code="completed" /> < effectiveTime value="868955138071" /> <value unit="rbc/hpf" xsi:type= "PQ" value="3-5" /> <interpretationCode codeSystem="local" code="*" /> <referenceRange> <observationRange> <text>0 - 3</text> </observationRange> </referenceRange> </ observation> </component> <component> <observation moodCode= "EVN" classCode="OBS"> <templateId root="05.02.840.1.683437.10..22.4.2 " /> <id nullFlavor="NA" /> <code codeSystem="local" code= "UAVOL" displayName="UA VOLUME FOR EXAM" /> <statusCode code="completed " /> <effectiveTime value="235023521996" /> <value unit="mL" xsi:type="PQ" value="12.0" /> <referenceRange> < observationRange> <text>(12mL STD)</text> </ observationRange> </referenceRange> </observation> </ component> <component> <observation moodCode="EVN" classCode="OBS"> <templateId root="216.840.1.811562.10.20.22.4.2" /> <id nullFlavor="NA" /> <code codeSystem="local" code="WBCU" displayName=" UA WBC" /> <statusCode code="completed" /> <effectiveTime value="886573440977" /> <value unit="wbc/hpf" xsi:type="PQ" value="0" / > <referenceRange> <observationRange> <text>0 - 5</text> </observationRange> </referenceRange> </ observation> </component> </organizer> </entry> <entry> <organizer moodCode="EVN" classCode="BATTERY"> <templateId root= "16.840.1.723966.10..22.4.1" /> <id nullFlavor="NA" /> <code codeSystem="local" code="PREGU" displayName="UR TEST" /> < statusCode code="completed" /> <component> <observation moodCode= "EVN" classCode="OBS"> <templateId root="16.840.1.900566.10.2022.4.2 " /> <id nullFlavor="NA" /> <code codeSystem="local" code= "PREGU" displayName="UR TEST" /> <statusCode code="completed " /> <effectiveTime value="884335259937" /> <value xsi:type= "ST" value="<pre><b>UR TEST</b> NEGATIVE</pre>" /> < referenceRange> <observationRange> <text>NEGATIVE</text > </observationRange> </referenceRange> </observation > </component> <component> <observation moodCode="EVN" classCode="OBS"> <templateId root="216.840.1.004273.10..22.4.2" /> <id nullFlavor="NA" /> <code codeSystem="local" code="MB" displayName="Microbiology" /> <statusCode code="completed" /> <effectiveTime value="037804844278" /> <value xsi:type="ST" value="<pre ><b>UR TEST</b> NEGATIVE</pre>" /> <referenceRange> <observationRange> <text /> </observationRange> </referenceRange> </observation> </component> </organizer> </entry> <entry> <organizer moodCode="EVN" classCode="BATTERY"> < templateId root="2.16.840.1.161449.10..22.4.1" /> <id nullFlavor="NA" /> <code codeSystem="local" code="UA" displayName="URINALYSIS, ROUTINE" /> <statusCode code="completed" /> <component> <observation moodCode="EVN" classCode="OBS"> <templateId root= "2.16.840.1.265181.10..22.4.2" /> <id nullFlavor="NA" /> < code codeSystem="local" code="LEUESU" displayName="UA LEUKOCYTE ESTERASE DIPSTICK" /> <statusCode code="completed" /> <effectiveTime value="083466515450" /> <value unit="" xsi:type="PQ" value="3+" /> <interpretationCode codeSystem="local" code="*" /> < referenceRange> <observationRange> <text>NEGATIVE</text > </observationRange> </referenceRange> </observation > </component> <component> <observation moodCode="EVN" classCode="OBS"> <templateId root="216.840.1.561002.10...4.2" /> <id nullFlavor="NA" /> <code codeSystem="local" code="NITRIU" displayName="UA NITRITE DIPSTICK" /> <statusCode code="completed" /> <effectiveTime value="" /> <value unit="" xsi:type= "PQ" value="POSITIVE" /> <interpretationCode codeSystem="local" code="* " /> <referenceRange> <observationRange> <text> NEGATIVE</text> </observationRange> </referenceRange> </observation> </component> <component> <observation moodCode ="EVN" classCode="OBS"> <templateId root= "216.840.1.860210.01.03.22.4.2" /> <id nullFlavor="NA" /> < code codeSystem="local" code="PROTEIU" displayName="UA PROTEIN DIPSTICK" /> <statusCode code="completed" /> <effectiveTime value= "" /> <value unit="" xsi:type="PQ" value="NEGATIVE" /> <referenceRange> <observationRange> <text>NEGATIVE </text> </observationRange> </referenceRange> </ observation> </component> <component> <observation moodCode= "EVN" classCode="OBS"> <templateId root="16.840.1.912961.10...4.2 " /> <id nullFlavor="NA" /> <code codeSystem="local" code= "DGLUU" displayName="UA GLUCOSE DIPSTICK" /> <statusCode code= "completed" /> <effectiveTime value="" /> <value unit="" xsi:type="PQ" value="NEGATIVE" /> <referenceRange> < observationRange> <text>NEGATIVE</text> </ observationRange> </referenceRange> </observation> </ component> <component> <observation moodCode="EVN" classCode="OBS"> <templateId root="216.840.1.677712.10..4.2" /> <id nullFlavor="NA" /> <code codeSystem="local" code="KETONU" displayName= "UA KETONE DIPSTICK" /> <statusCode code="completed" /> < effectiveTime value="" /> <value unit="" xsi:type="PQ" value="NEGATIVE" /> <referenceRange> <observationRange> <text>NEGATIVE</text> </observationRange> </ referenceRange> </observation> </component> <component> <observation moodCode="EVN" classCode="OBS"> <templateId root= "05.02.840.1.926030.01.03.22.4.2" /> <id nullFlavor="NA" /> < code codeSystem="local" code="UROBILU" displayName="UA UROBILINOGEN DIPSTICK" / > <statusCode code="completed" /> <effectiveTime value= "" /> <value unit="" xsi:type="PQ" value="NORMAL" /> <referenceRange> <observationRange> <text>NORMAL</ text> </observationRange> </referenceRange> </ observation> </component> <component> <observation moodCode= "EVN" classCode="OBS"> <templateId root="05.02.840.1.929869.10..4.2 " /> <id nullFlavor="NA" /> <code codeSystem="local" code= "BILU" displayName="UA BILIRUBIN DIPSTICK" /> <statusCode code= "completed" /> <effectiveTime value="" /> <value unit="" xsi:type="PQ" value="NEGATIVE" /> <referenceRange> < observationRange> <text>NEGATIVE</text> </ observationRange> </referenceRange> </observation> </ component> <component> <observation moodCode="EVN" classCode="OBS"> <templateId root="216.840.1.038564.10..4.2" /> <id nullFlavor="NA" /> <code codeSystem="local" code="CARITO" displayName="UA BLOOD DIPSTICK" /> <statusCode code="completed" /> < effectiveTime value="" /> <value unit="" xsi:type="PQ" value="TRACE" /> <interpretationCode codeSystem="local" code="*" /> <referenceRange> <observationRange> <text> NEGATIVE</text> </observationRange> </referenceRange> </observation> </component> <component> <observation moodCode ="EVN" classCode="OBS"> <templateId root= "05.02.840.1.355584.01.03.22.4.2" /> <id nullFlavor="NA" /> < code codeSystem="local" code="SPGRU" displayName="UA SPECIFIC GRAVITY" /> <statusCode code="completed" /> <effectiveTime value=" " /> <value unit="" xsi:type="PQ" value="1.025" /> < referenceRange> <observationRange> <text>1.015-1.025</ text> </observationRange> </referenceRange> </ observation> </component> <component> <observation moodCode= "EVN" classCode="OBS"> <templateId root="216.840.1.328273.10..22.4.2 " /> <id nullFlavor="NA" /> <code codeSystem="local" code="SUSANA " displayName="UR PH" /> <statusCode code="completed" /> < effectiveTime value="" /> <value unit="" xsi:type="PQ" value="6.0" /> <referenceRange> <observationRange> <text>5.0-7.0</text> </observationRange> </ referenceRange> </observation> </component> </organizer> </entry > <entry> <organizer moodCode="EVN" classCode="BATTERY"> <templateId root="16.840.1.678335.10..22.4.1" /> <id nullFlavor="NA" /> <code codeSystem="local" code="UAMICRO" displayName="UA MICROSCOPIC" /> < statusCode code="completed" /> <component> <observation moodCode= "EVN" classCode="OBS"> <templateId root="05.02.840.1.075221.10...4.2 " /> <id nullFlavor="NA" /> <code codeSystem="local" code= "BACU" displayName="UA BACTERIA" /> <statusCode code="completed" /> <effectiveTime value="917151094050" /> <value unit="" xsi:type= "PQ" value="5+" /> <interpretationCode codeSystem="local" code="*" /> <referenceRange> <observationRange> <text> NEGATIVE</text> </observationRange> </referenceRange> </observation> </component> <component> <observation moodCode ="EVN" classCode="OBS"> <templateId root= "05.02.840.1.517451.10...4.2" /> <id nullFlavor="NA" /> < code codeSystem="local" code="EPIU" displayName="UA EPITHELIAL CELLS" /> <statusCode code="completed" /> <effectiveTime value="" /> <value unit="epi/hpf" xsi:type="PQ" value="2+" /> < interpretationCode codeSystem="local" code="*" /> <referenceRange> <observationRange> <text>0 - 1+</text> </ observationRange> </referenceRange> </observation> </ component> <component> <observation moodCode="EVN" classCode="OBS"> <templateId root="216.840.1.214390.10.20.22.4.2" /> <id nullFlavor="NA" /> <code codeSystem="local" code="RBCU" displayName=" UA RBC" /> <statusCode code="completed" /> <effectiveTime value="" /> <value unit="rbc/hpf" xsi:type="PQ" value="3-5 " /> <interpretationCode codeSystem="local" code="*" /> < referenceRange> <observationRange> <text>0 - 3</text> </observationRange> </referenceRange> </observation> </component> <component> <observation moodCode="EVN" classCode= "OBS"> <templateId root="216.840.1.019556.10.20.22.4.2" /> < id nullFlavor="NA" /> <code codeSystem="local" code="UAVOL" displayName ="UA VOLUME FOR EXAM" /> <statusCode code="completed" /> < effectiveTime value="" /> <value unit="mL" xsi:type="PQ" value="12.0" /> <referenceRange> <observationRange> <text>(12mL STD)</text> </observationRange> </ referenceRange> </observation> </component> <component> <observation moodCode="EVN" classCode="OBS"> <templateId root= "216.840.1.348155.10..22.4.2" /> <id nullFlavor="NA" /> < code codeSystem="local" code="WBCU" displayName="UA WBC" /> < statusCode code="completed" /> <effectiveTime value="902770050409" /> <value unit="wbc/hpf" xsi:type="PQ" value="10-20" /> < interpretationCode codeSystem="local" code="*" /> <referenceRange> <observationRange> <text>0 - 5</text> </ observationRange> </referenceRange> </observation> </ component> </organizer> </entry> <entry> <organizer moodCode="EVN" classCode="BATTERY"> <templateId root="16.840.1.666393.10..22.4.1" /> <id nullFlavor="NA" /> <code codeSystem="local" code="LIVER" displayName="HEPATIC FUNCTION PANEL" /> <statusCode code="completed" /> <component> <observation moodCode="EVN" classCode="OBS"> < templateId root="16.840.1.209824.10..22.4.2" /> <id nullFlavor="NA " /> <code codeSystem="local" code="BILUC" displayName="BILI UNCONJUGATED" /> <statusCode code="completed" /> < effectiveTime value="305216539388" /> <value unit="mg/dL" xsi:type="PQ " value="0.2" /> <referenceRange> <observationRange> <text>0.0-0.7</text> </observationRange> </ referenceRange> </observation> </component> <component> <observation moodCode="EVN" classCode="OBS"> <templateId root= "05.02.840.1.121494.10..22.4.2" /> <id nullFlavor="NA" /> < code codeSystem="local" code="AST" displayName="AST/SGOT" /> < statusCode code="completed" /> <effectiveTime value="" /> <value unit="Units/L" xsi:type="PQ" value="24" /> < referenceRange> <observationRange> <text>10-37</text> </observationRange> </referenceRange> </observation> </component> <component> <observation moodCode="EVN" classCode= "OBS"> <templateId root="216.840.1.535404.10..4.2" /> < id nullFlavor="NA" /> <code codeSystem="local" code="ALT" displayName= "ALT/SGPT" /> <statusCode code="completed" /> <effectiveTime value="" /> <value unit="Units/L" xsi:type="PQ" value="23" /> <referenceRange> <observationRange> <text>& lt; 66</text> </observationRange> </referenceRange> < /observation> </component> <component> <observation moodCode= "EVN" classCode="OBS"> <templateId root="216.840.1.244283.10..4.2 " /> <id nullFlavor="NA" /> <code codeSystem="local" code="TP " displayName="TOTAL PROTEIN" /> <statusCode code="completed" /> <effectiveTime value="" /> <value unit="gm/dL" xsi:type ="PQ" value="6.8" /> <referenceRange> <observationRange> <text>6.4-8.2</text> </observationRange> </ referenceRange> </observation> </component> <component> <observation moodCode="EVN" classCode="OBS"> <templateId root= "216.840.1.801007.10..4.2" /> <id nullFlavor="NA" /> < code codeSystem="local" code="ALB" displayName="ALBUMIN" /> < statusCode code="completed" /> <effectiveTime value="" /> <value unit="gm/dL" xsi:type="PQ" value="2.7" /> < interpretationCode codeSystem="local" code="*" /> <referenceRange> <observationRange> <text>3.4-5.0</text> </ observationRange> </referenceRange> </observation> </ component> <component> <observation moodCode="EVN" classCode="OBS"> <templateId root="16.840.1.574759.01.03.224.2" /> <id nullFlavor="NA" /> <code codeSystem="local" code="BILTOT" displayName= "BILI TOTAL" /> <statusCode code="completed" /> < effectiveTime value="" /> <value unit="mg/dL" xsi:type="PQ " value="0.3" /> <referenceRange> <observationRange> <text>0.0-1.0</text> </observationRange> </ referenceRange> </observation> </component> <component> <observation moodCode="EVN" classCode="OBS"> <templateId root= "216.840.1.543235.22.4.2" /> <id nullFlavor="NA" /> < code codeSystem="local" code="ALKP" displayName="ALKALINE PHOSPHATASE TOTAL" /> <statusCode code="completed" /> <effectiveTime value= "" /> <value unit="IU/L" xsi:type="PQ" value="81" /> <referenceRange> <observationRange> <text>45-117</ text> </observationRange> </referenceRange> </ observation> </component> <component> <observation moodCode= "EVN" classCode="OBS"> <templateId root="216.840.1.571385.01.03.22.4.2 " /> <id nullFlavor="NA" /> <code codeSystem="local" code= "BILC" displayName="BILI CONJUGATED" /> <statusCode code="completed" / > <effectiveTime value="" /> <value unit="mg/dL" xsi:type="PQ" value="< 0.1" /> <referenceRange> < observationRange> <text>0.0-0.3</text> </ observationRange> </referenceRange> </observation> </ component> </organizer> </entry> <entry> <organizer moodCode="EVN" classCode="BATTERY"> <templateId root="16.840.1.739871.01.03.22.4.1" /> <id nullFlavor="NA" /> <code codeSystem="local" code="LIP" displayName ="LIPASE" /> <statusCode code="completed" /> <component> < observation moodCode="EVN" classCode="OBS"> <templateId root= "16.840.1.431258.22.4.2" /> <id nullFlavor="NA" /> < code codeSystem="local" code="LIP" displayName="LIPASE" /> <statusCode code="completed" /> <effectiveTime value="" /> < value unit="Units/L" xsi:type="PQ" value="121" /> <referenceRange> <observationRange> <text>73-393</text> </ observationRange> </referenceRange> </observation> </ component> </organizer> </entry> <entry> <organizer moodCode="EVN" classCode="BATTERY"> <templateId root="216.840.1.024473.10..22.4.1" /> <id nullFlavor="NA" /> <code codeSystem="local" code="CK" displayName= "CREATINE KINASE (CK/CPK)" /> <statusCode code="completed" /> < component> <observation moodCode="EVN" classCode="OBS"> < templateId root="16.840.1.366638.10...4.2" /> <id nullFlavor="NA " /> <code codeSystem="local" code="CK" displayName="CREATINE KINASE ( CK/CPK)" /> <statusCode code="completed" /> <effectiveTime value="373736954584" /> <value unit="Units/L" xsi:type="PQ" value="68" /> <referenceRange> <observationRange> <text>& lt; 193</text> </observationRange> </referenceRange> </observation> </component> </organizer> </entry> <entry> < organizer moodCode="EVN" classCode="BATTERY"> <templateId root= "05.02.840.1.703645.10..22.4.1" /> <id nullFlavor="NA" /> <code codeSystem="local" code="LEGUA" displayName="AG LEGIONELLA URINE" /> < statusCode code="completed" /> <component> <observation moodCode= "EVN" classCode="OBS"> <templateId root="216.840.1.174552.10..22.4.2 " /> <id nullFlavor="NA" /> <code codeSystem="local" code="MB " displayName="Microbiology" /> <statusCode code="completed" /> <effectiveTime value="[id number]" /> <value xsi:type="ST" value="< pre><b>AG LEGIONELLA URINE - AG STREPTOCOCCUS PNEUMONIAE</b> See BelowAG LEGIONELLA URINE(F) Kasandra Date/Time: 11/21/2015 20:44 Suzie Date/Time: 11/22/2015 17:16SOURCE: URINESPEC DESC: LEGIONELLA ANTIGENNEGATIVE FOR LEGIONELLA PNEUMOPHILA SEROGROUP [address] [id number] BelowAG STREPTOCOCCUS PNEUMONIAE(F) Kasandra Date/Time: 11/21/2015 20:44 Suzie Date/Time: 11/22/2015 17:16SOURCE: URINESPEC DESC: STREPTOCOCCUS PNEUMONIAENEGATIVE FOR STREPTOCOCCUS PNEUMONIAE[address] [address]</ pre>" /> <referenceRange> <observationRange> < text /> </observationRange> </referenceRange> </ observation> </component> </organizer> </entry> <entry> <organizer moodCode="EVN" classCode="BATTERY"> <templateId root= "2.16.840.1.382572.10..22.4.1" /> <id nullFlavor="NA" /> <code codeSystem="local" code="BC" displayName="BLOOD CULTURE" /> <statusCode code="completed" /> <component> <observation moodCode="EVN" classCode="OBS"> <templateId root="2.16.840.1.660091.10..22.4.2" /> <id nullFlavor="NA" /> <code codeSystem="local" code="MB" displayName="Microbiology" /> <statusCode code="completed" /> <effectiveTime value="639061426936" /> <value xsi:type="ST" value="<pre ><b>BLOOD CULTURE</b> See BelowIs this the first BLOOD CULTURE or a possible SEPSIS patient? YBLOOD CULTURE(F) Kasandra Date/Time: 11/22/2015 01: 00 Suzie Date/Time: 11/27/2015 12:40SOURCE: BLOODSPEC DESC: [id number] [facility] [place] [address]</pre>" /> <referenceRange> < observationRange> <text /> </observationRange> </referenceRange> </observation> </component> </organizer> </ entry> <entry> <organizer moodCode="EVN" classCode="BATTERY"> < templateId root="2.16.840.1.139047.10.20.22.4.1" /> <id nullFlavor="NA" /> <code codeSystem="local" code="BCLACT" displayName="BC REFLEX LACTIC ACID " /> <statusCode code="completed" /> <component> <observation moodCode="EVN" classCode="OBS"> <templateId root= "2.16.840.1.727380.10.20.22.4.2" /> <id nullFlavor="NA" /> < code codeSystem="local" code="LACT" displayName="LACTIC ACID" /> < statusCode code="completed" /> <effectiveTime value="642542682049" /> <value unit="mmol/L" xsi:type="PQ" value="2.8" /> < interpretationCode codeSystem="local" code="*" /> <referenceRange> <observationRange> <text>0.5-2.0</text> </ observationRange> </referenceRange> </observation> </ component> </organizer> </entry> <entry> <organizer moodCode="EVN" classCode="BATTERY"> <templateId root="2.16.840.1.384953.10.20.22.4.1" /> <id nullFlavor="NA" /> <code codeSystem="local" code="BC" displayName= "BLOOD CULTURE" /> <statusCode code="completed" /> <component> <observation moodCode="EVN" classCode="OBS"> <templateId root= "05.02.840.1.269447.10..4.2" /> <id nullFlavor="NA" /> < code codeSystem="local" code="MB" displayName="Microbiology" /> < statusCode code="completed" /> <effectiveTime value="506483841449" /> <value xsi:type="ST" value="<pre><b>BLOOD CULTURE</b> See BelowIs this the first BLOOD CULTURE or a possible SEPSIS patient? YBLOOD CULTURE(F) Kasandra Date/Time: 11/22/2015 01:09 Suzie Date/ Time: 11/27/2015 12:40SOURCE: BLOODSPEC DESC: [id number] [facility] [place] [address]</pre>" /> < referenceRange> <observationRange> <text /> < /observationRange> </referenceRange> </observation> </ component> </organizer> </entry> <entry> <organizer moodCode="EVN" classCode="BATTERY"> <templateId root="05.02.840.1.610459...4.1" /> <id nullFlavor="NA" /> <code codeSystem="local" code="LACT" displayName="LACTIC ACID" /> <statusCode code="completed" /> < component> <observation moodCode="EVN" classCode="OBS"> < templateId root="216.840.1.207702.10..22.4.2" /> <id nullFlavor="NA " /> <code codeSystem="local" code="LACT" displayName="LACTIC ACID" /> <statusCode code="completed" /> <effectiveTime value= "534480368210" /> <value unit="mmol/L" xsi:type="PQ" value="1.5" /> <referenceRange> <observationRange> <text>0.5-2.0 </text> </observationRange> </referenceRange> </ observation> </component> </organizer> </entry> <entry> <organizer moodCode="EVN" classCode="BATTERY"> <templateId root= "05.02.840.1.654468.10..4.1" /> <id nullFlavor="NA" /> <code codeSystem="local" code="CD48" displayName="CD4/8 RATIO" /> <statusCode code="completed" /> <component> <observation moodCode="EVN" classCode="OBS"> <templateId root="05.02.840.1.679925.10...4.2" /> <id nullFlavor="NA" /> <code codeSystem="local" code="LJ68AFA " displayName="CD 3/4 POSITIVE" /> <statusCode code="completed" /> <effectiveTime value="665758347126" /> <value unit="%" xsi: type="PQ" value="19" /> <interpretationCode codeSystem="local" code="* " /> <referenceRange> <observationRange> <text> 34-68</text> </observationRange> </referenceRange> </ observation> </component> <component> <observation moodCode= "EVN" classCode="OBS"> <templateId root="05.02.840.1.170553.01.03.22.4.2 " /> <id nullFlavor="NA" /> <code codeSystem="local" code= "DC83UJY" displayName="CD 3/4 ABSOLUTE" /> <statusCode code="completed " /> <effectiveTime value="735043740595" /> <value unit="#" xsi:type="PQ" value="58" /> <interpretationCode codeSystem="local" code ="*" /> <referenceRange> <observationRange> < text>250-2400</text> </observationRange> </referenceRange> </observation> </component> <component> <observation moodCode="EVN" classCode="OBS"> <templateId root= "216.840.1.095174.10..22.4.2" /> <id nullFlavor="NA" /> < code codeSystem="local" code="WN97FOF" displayName="CD 3/8 POSITIVE" /> <statusCode code="completed" /> <effectiveTime value="479671597227" / > <value unit="%" xsi:type="PQ" value="48" /> < interpretationCode codeSystem="local" code="*" /> <referenceRange> <observationRange> <text>6-41</text> </ observationRange> </referenceRange> </observation> </ component> <component> <observation moodCode="EVN" classCode="OBS"> <templateId root="216.840.1.727498.10..22.4.2" /> <id nullFlavor="NA" /> <code codeSystem="local" code="DK40YIW" displayName= "CD 3/8 ABSOLUTE" /> <statusCode code="completed" /> < effectiveTime value="728932124807" /> <value unit="#" xsi:type="PQ" value="146" /> <interpretationCode codeSystem="local" code="*" /> <referenceRange> <observationRange> <text>150-1800< /text> </observationRange> </referenceRange> </ observation> </component> <component> <observation moodCode= "EVN" classCode="OBS"> <templateId root="840.1.438737.10..22.4.2 " /> <id nullFlavor="NA" /> <code codeSystem="local" code= "[id number]" displayName="CD 4/8 RATIO" /> <statusCode code="completed" /> <effectiveTime value="300885589322" /> <value unit="" xsi: type="PQ" value="0.4" /> <interpretationCode codeSystem="local" code="* " /> <referenceRange> <observationRange> <text> 0.6-4.0</text> </observationRange> </referenceRange> </observation> </component> </organizer> </entry> <entry> < organizer moodCode="EVN" classCode="BATTERY"> <templateId root= "05.02.840.1.105572.10..22.4.1" /> <id nullFlavor="NA" /> <code codeSystem="local" code="CBCD" displayName="CBC W/DIFF" /> <statusCode code ="completed" /> <component> <observation moodCode="EVN" classCode= "OBS"> <templateId root="05.02.840.1.099166.10...4.2" /> < id nullFlavor="NA" /> <code codeSystem="local" code="CBCCOM" displayName="COMMENT" /> <statusCode code="completed" /> < effectiveTime value="852098674496" /> <value unit="" xsi:type="PQ" value="REVIEWED" /> <referenceRange> <observationRange> <text /> </observationRange> </referenceRange> </observation> </component> <component> <observation moodCode="EVN" classCode="OBS"> <templateId root= "05.02.840.1.060449...4.2" /> <id nullFlavor="NA" /> < code codeSystem="local" code="GR#" displayName="GRANULOCYTE #" /> < statusCode code="completed" /> <effectiveTime value="" /> <value unit="k/cumm" xsi:type="PQ" value="3.4" /> < referenceRange> <observationRange> <text>2.0-9.0</text> </observationRange> </referenceRange> </observation > </component> <component> <observation moodCode="EVN" classCode="OBS"> <templateId root="2.16.840.1.982546.01.03.22.4.2" /> <id nullFlavor="NA" /> <code codeSystem="local" code="GR% " displayName="GRANULOCYTE %" /> <statusCode code="completed" /> <effectiveTime value="" /> <value unit="%" xsi: type="PQ" value="91" /> <interpretationCode codeSystem="local" code="* " /> <referenceRange> <observationRange> <text> 50-75</text> </observationRange> </referenceRange> </ observation> </component> <component> <observation moodCode= "EVN" classCode="OBS"> <templateId root="216.840.1.561854.10.4.2 " /> <id nullFlavor="NA" /> <code codeSystem="local" code="LY# " displayName="LYMPHOCYTE #" /> <statusCode code="completed" /> <effectiveTime value="586582196428" /> <value unit="k/cumm" xsi:type ="PQ" value="0.3" /> <interpretationCode codeSystem="local" code="*" / > <referenceRange> <observationRange> <text>1.0 -4.0</text> </observationRange> </referenceRange> </ observation> </component> <component> <observation moodCode= "EVN" classCode="OBS"> <templateId root="05.02.840.1.313943.10.20.22.4.2 " /> <id nullFlavor="NA" /> <code codeSystem="local" code="LY& #37;" displayName="LYMPHOCYTE %" /> <statusCode code="completed" / > <effectiveTime value="865937604684" /> <value unit="%" xsi:type="PQ" value="8" /> <interpretationCode codeSystem="local" code= "*" /> <referenceRange> <observationRange> < text>20-30</text> </observationRange> </referenceRange> </observation> </component> <component> <observation moodCode="EVN" classCode="OBS"> <templateId root= "840.1.906308.1022.4.2" /> <id nullFlavor="NA" /> < code codeSystem="local" code="MCH" displayName="MEAN CELL HGB" /> < statusCode code="completed" /> <effectiveTime value="318697454656" /> <value unit="pg" xsi:type="PQ" value="28.3" /> <referenceRange > <observationRange> <text>27.0-33.0</text> < /observationRange> </referenceRange> </observation> </ component> <component> <observation moodCode="EVN" classCode="OBS"> <templateId root="05.02.840.1.722268.10.20.22.4.2" /> <id nullFlavor="NA" /> <code codeSystem="local" code="MCHC" displayName= "MEAN CELL HGB CONCENTRATION" /> <statusCode code="completed" /> <effectiveTime value="" /> <value unit="g/dL" xsi:type= "PQ" value="32.2" /> <referenceRange> <observationRange> <text>32.0-37.0</text> </observationRange> </ referenceRange> </observation> </component> <component> <observation moodCode="EVN" classCode="OBS"> <templateId root= "16.840.1.036674.10.20.22.4.2" /> <id nullFlavor="NA" /> < code codeSystem="local" code="MCV" displayName="MEAN CELL VOLUME" /> < statusCode code="completed" /> <effectiveTime value="" /> <value unit="fl" xsi:type="PQ" value="87.8" /> <referenceRange > <observationRange> <text>80.0-100.0</text> </observationRange> </referenceRange> </observation> </ component> <component> <observation moodCode="EVN" classCode="OBS"> <templateId root="16.840.1.099237.10..22.4.2" /> <id nullFlavor="NA" /> <code codeSystem="local" code="MO#" displayName= "MONOCYTE #" /> <statusCode code="completed" /> < effectiveTime value="" /> <value unit="k/cumm" xsi:type="PQ " value="0.0" /> <interpretationCode codeSystem="local" code="*" /> <referenceRange> <observationRange> <text>0.1-1.0 </text> </observationRange> </referenceRange> </ observation> </component> <component> <observation moodCode= "EVN" classCode="OBS"> <templateId root="216.840.1.290549.10.20.22.4.2 " /> <id nullFlavor="NA" /> <code codeSystem="local" code="MO& #37;" displayName="MONOCYTE %" /> <statusCode code="completed" /> <effectiveTime value="785684503644" /> <value unit="%" xsi :type="PQ" value="1" /> <interpretationCode codeSystem="local" code="* " /> <referenceRange> <observationRange> <text> 4-6</text> </observationRange> </referenceRange> </ observation> </component> <component> <observation moodCode= "EVN" classCode="OBS"> <templateId root="216.840.1.712739.10..22.4.2 " /> <id nullFlavor="NA" /> <code codeSystem="local" code="RBC " displayName="RED BLOOD CELL" /> <statusCode code="completed" /> <effectiveTime value="368855998393" /> <value unit="m/cumm" xsi: type="PQ" value="4.03" /> <referenceRange> <observationRange > <text>4.00-6.00</text> </observationRange> </ referenceRange> </observation> </component> <component> <observation moodCode="EVN" classCode="OBS"> <templateId root= "16.840.1.465264.10.20.22.4.2" /> <id nullFlavor="NA" /> < code codeSystem="local" code="RDW" displayName="RED CELL DISTRIBUTION WIDTH" /> <statusCode code="completed" /> <effectiveTime value= "865446223606" /> <value unit="%" xsi:type="PQ" value="16.1" /> <interpretationCode codeSystem="local" code="*" /> < referenceRange> <observationRange> <text>11.0-15.6</text > </observationRange> </referenceRange> </observation > </component> <component> <observation moodCode="EVN" classCode="OBS"> <templateId root="216.840.1.207684...22.4.2" /> <id nullFlavor="NA" /> <code codeSystem="local" code="WBC" displayName="WHITE BLOOD CELL" /> <statusCode code="completed" /> <effectiveTime value="775978619657" /> <value unit="k/cumm" xsi: type="PQ" value="3.8" /> <interpretationCode codeSystem="local" code="* " /> <referenceRange> <observationRange> <text> 5.0-10.0</text> </observationRange> </referenceRange> </observation> </component> <component> <observation moodCode ="EVN" classCode="OBS"> <templateId root= "05.02.840.1.260795.22.4.2" /> <id nullFlavor="NA" /> < code codeSystem="local" code="HGBT" displayName="HEMOGLOBIN" /> < statusCode code="completed" /> <effectiveTime value="615192458667" /> <value unit="gm/dL" xsi:type="PQ" value="11.4" /> < interpretationCode codeSystem="local" code="*" /> <referenceRange> <observationRange> <text>12.0-16.0</text> </ observationRange> </referenceRange> </observation> </ component> <component> <observation moodCode="EVN" classCode="OBS"> <templateId root="216.840.1.182474.01.03.22.4.2" /> <id nullFlavor="NA" /> <code codeSystem="local" code="HCTT" displayName= "HEMATOCRIT" /> <statusCode code="completed" /> < effectiveTime value="" /> <value unit="%" xsi:type="PQ " value="35.4" /> <interpretationCode codeSystem="local" code="*" /> <referenceRange> <observationRange> <text>37.0- 47.0</text> </observationRange> </referenceRange> </ observation> </component> <component> <observation moodCode= "EVN" classCode="OBS"> <templateId root="840.1.236911.01.03.22.4.2 " /> <id nullFlavor="NA" /> <code codeSystem="local" code="PLT " displayName="PLATELET COUNT" /> <statusCode code="completed" /> <effectiveTime value="" /> <value unit="k/cumm" xsi: type="PQ" value="323" /> <referenceRange> <observationRange > <text>150-400</text> </observationRange> </ referenceRange> </observation> </component> </organizer> </entry > <entry> <organizer moodCode="EVN" classCode="BATTERY"> <templateId root="840.1.279368.01.03.22.4.1" /> <id nullFlavor="NA" /> <code codeSystem="local" code="METABC" displayName="METABOLIC PANEL, COMPREHN" /> <statusCode code="completed" /> <component> <observation moodCode= "EVN" classCode="OBS"> <templateId root="840.1.000079.01.03.22.4.2 " /> <id nullFlavor="NA" /> <code codeSystem="local" code="K" displayName="POTASSIUM" /> <statusCode code="completed" /> < effectiveTime value="930421099805" /> <value unit="mmol/L" xsi:type="PQ " value="3.5" /> <referenceRange> <observationRange> <text>3.5-5.3</text> </observationRange> </ referenceRange> </observation> </component> <component> <observation moodCode="EVN" classCode="OBS"> <templateId root= "2.16.840.1.488154.10..22.4.2" /> <id nullFlavor="NA" /> < code codeSystem="local" code="eGFR" displayName="EST GFR (MDRD)" /> < statusCode code="completed" /> <effectiveTime value="475661290554" /> <value unit="mL/min" xsi:type="PQ" value="> 60" /> < referenceRange> <observationRange> <text>> 59</text> </observationRange> </referenceRange> </observation > </component> <component> <observation moodCode="EVN" classCode="OBS"> <templateId root="2.16.840.1.341703.10..22.4.2" /> <id nullFlavor="NA" /> <code codeSystem="local" code="GAP" displayName="ANION GAP" /> <statusCode code="completed" /> < effectiveTime value="752233272356" /> <value unit="mmol/L" xsi:type="PQ " value="7" /> <referenceRange> <observationRange> <text>5-15</text> </observationRange> </referenceRange > </observation> </component> <component> <observation moodCode="EVN" classCode="OBS"> <templateId root= "05.02.840.1.774507.10..22.4.2" /> <id nullFlavor="NA" /> < code codeSystem="local" code="eCrCl" displayName="EST CrCl (CG)" /> < statusCode code="completed" /> <effectiveTime value="266138205592" /> <value unit="mL/min" xsi:type="PQ" value="> 60" /> < referenceRange> <observationRange> <text>> 59</text> </observationRange> </referenceRange> </observation > </component> <component> <observation moodCode="EVN" classCode="OBS"> <templateId root="05.02.840.1.220132.10.4.2" /> <id nullFlavor="NA" /> <code codeSystem="local" code="GLU" displayName="GLUCOSE" /> <statusCode code="completed" /> < effectiveTime value="" /> <value unit="mg/dL" xsi:type="PQ " value="230" /> <interpretationCode codeSystem="local" code="*" /> <referenceRange> <observationRange> <text>70-99</ text> </observationRange> </referenceRange> </ observation> </component> <component> <observation moodCode= "EVN" classCode="OBS"> <templateId root="05.02.840.1.723779.10.22.4.2 " /> <id nullFlavor="NA" /> <code codeSystem="local" code="CA " displayName="CALCIUM" /> <statusCode code="completed" /> < effectiveTime value="129571069486" /> <value unit="mg/dL" xsi:type="PQ " value="8.3" /> <interpretationCode codeSystem="local" code="*" /> <referenceRange> <observationRange> <text>8.5- 10.1</text> </observationRange> </referenceRange> </ observation> </component> <component> <observation moodCode= "EVN" classCode="OBS"> <templateId root="05.02.840.1.576252.10.20.22.4.2 " /> <id nullFlavor="NA" /> <code codeSystem="local" code="BUN " displayName="BLOOD UREA NITROGEN" /> <statusCode code="completed" /> <effectiveTime value="261396763750" /> <value unit="mg/dL" xsi:type="PQ" value="12" /> <referenceRange> < observationRange> <text>7-20</text> </observationRange> </referenceRange> </observation> </component> < component> <observation moodCode="EVN" classCode="OBS"> < templateId root="05.02.840.1.104712.10.22.4.2" /> <id nullFlavor="NA " /> <code codeSystem="local" code="CREAT" displayName="CREATININE" /> <statusCode code="completed" /> <effectiveTime value= "815272197319" /> <value unit="mg/dL" xsi:type="PQ" value="0.6" /> <referenceRange> <observationRange> <text>0.6-1.0< /text> </observationRange> </referenceRange> </ observation> </component> <component> <observation moodCode= "EVN" classCode="OBS"> <templateId root="05.02.840.1.773729.10.20.22.4.2 " /> <id nullFlavor="NA" /> <code codeSystem="local" code="NA " displayName="SODIUM" /> <statusCode code="completed" /> < effectiveTime value="298310306723" /> <value unit="mmol/L" xsi:type="PQ " value="141" /> <referenceRange> <observationRange> <text>135-148</text> </observationRange> </ referenceRange> </observation> </component> <component> <observation moodCode="EVN" classCode="OBS"> <templateId root= "216.840.1.481416.10.22.4.2" /> <id nullFlavor="NA" /> < code codeSystem="local" code="CL" displayName="CHLORIDE" /> < statusCode code="completed" /> <effectiveTime value="501550936302" /> <value unit="mmol/L" xsi:type="PQ" value="108" /> < referenceRange> <observationRange> <text>98-110</text> </observationRange> </referenceRange> </observation> </component> <component> <observation moodCode="EVN" classCode ="OBS"> <templateId root="05.02.840.1.237202..22.4.2" /> < id nullFlavor="NA" /> <code codeSystem="local" code="AST" displayName= "AST/SGOT" /> <statusCode code="completed" /> <effectiveTime value="133849914599" /> <value unit="Units/L" xsi:type="PQ" value="13" /> <referenceRange> <observationRange> <text>10 -37</text> </observationRange> </referenceRange> </ observation> </component> <component> <observation moodCode= "EVN" classCode="OBS"> <templateId root="216.840.1.613824.10.20.22.4.2 " /> <id nullFlavor="NA" /> <code codeSystem="local" code="ALT " displayName="ALT/SGPT" /> <statusCode code="completed" /> < effectiveTime value="510149471687" /> <value unit="Units/L" xsi:type= "PQ" value="21" /> <referenceRange> <observationRange> <text>< 66</text> </observationRange> </ referenceRange> </observation> </component> <component> <observation moodCode="EVN" classCode="OBS"> <templateId root= "216.840.1.267400.10..22.4.2" /> <id nullFlavor="NA" /> < code codeSystem="local" code="CO2" displayName="CARBON DIOXIDE" /> < statusCode code="completed" /> <effectiveTime value="426147616481" /> <value unit="mmol/L" xsi:type="PQ" value="26" /> < referenceRange> <observationRange> <text>21-32</text> </observationRange> </referenceRange> </observation> </component> <component> <observation moodCode="EVN" classCode= "OBS"> <templateId root="216.840.1.088993.10.20.22.4.2" /> < id nullFlavor="NA" /> <code codeSystem="local" code="TP" displayName= "TOTAL PROTEIN" /> <statusCode code="completed" /> < effectiveTime value="341861209154" /> <value unit="gm/dL" xsi:type="PQ " value="6.0" /> <interpretationCode codeSystem="local" code="*" /> <referenceRange> <observationRange> <text>6.4-8.2 </text> </observationRange> </referenceRange> </ observation> </component> <component> <observation moodCode= "EVN" classCode="OBS"> <templateId root="16.840.1.496521.10..22.4.2 " /> <id nullFlavor="NA" /> <code codeSystem="local" code="ALB " displayName="ALBUMIN" /> <statusCode code="completed" /> < effectiveTime value="" /> <value unit="gm/dL" xsi:type="PQ " value="2.4" /> <interpretationCode codeSystem="local" code="*" /> <referenceRange> <observationRange> <text>3.4-5.0 </text> </observationRange> </referenceRange> </ observation> </component> <component> <observation moodCode= "EVN" classCode="OBS"> <templateId root="16.840.1.295288.01.03.22.4.2 " /> <id nullFlavor="NA" /> <code codeSystem="local" code= "BILTOT" displayName="BILI TOTAL" /> <statusCode code="completed" /> <effectiveTime value="" /> <value unit="mg/dL" xsi: type="PQ" value="< 0.1" /> <referenceRange> < observationRange> <text>0.0-1.0</text> </ observationRange> </referenceRange> </observation> </ component> <component> <observation moodCode="EVN" classCode="OBS"> <templateId root="16.840.1.196147.10..22.4.2" /> <id nullFlavor="NA" /> <code codeSystem="local" code="ALKP" displayName= "ALKALINE PHOSPHATASE TOTAL" /> <statusCode code="completed" /> <effectiveTime value="" /> <value unit="IU/L" xsi:type= "PQ" value="69" /> <referenceRange> <observationRange> <text>45-117</text> </observationRange> </ referenceRange> </observation> </component> </organizer> </entry > <entry> <organizer moodCode="EVN" classCode="BATTERY"> <templateId root="05.02.840.1.664901...4.1" /> <id nullFlavor="NA" /> <code codeSystem="local" code="PHOS" displayName="PHOSPHORUS" /> <statusCode code ="completed" /> <component> <observation moodCode="EVN" classCode= "OBS"> <templateId root="05.02.840.1.773842.01.03.22.4.2" /> < id nullFlavor="NA" /> <code codeSystem="local" code="PHOS" displayName= "PHOSPHORUS" /> <statusCode code="completed" /> < effectiveTime value="458049397651" /> <value unit="mg/dL" xsi:type="PQ " value="2.3" /> <interpretationCode codeSystem="local" code="*" /> <referenceRange> <observationRange> <text>2.5-4.9 </text> </observationRange> </referenceRange> </ observation> </component> </organizer> </entry> <entry> <organizer moodCode="EVN" classCode="BATTERY"> <templateId root= "840.1.939890.22.4.1" /> <id nullFlavor="NA" /> <code codeSystem="local" code="MAG" displayName="MAGNESIUM" /> <statusCode code= "completed" /> <component> <observation moodCode="EVN" classCode= "OBS"> <templateId root="840.1.350863.01.03.22.4.2" /> < id nullFlavor="NA" /> <code codeSystem="local" code="MAG" displayName= "MAGNESIUM" /> <statusCode code="completed" /> <effectiveTime value="670225306346" /> <value unit="mg/dL" xsi:type="PQ" value="1.8" / > <referenceRange> <observationRange> <text>1.8 -2.4</text> </observationRange> </referenceRange> </ observation> </component> </organizer> </entry> <entry> <organizer moodCode="EVN" classCode="BATTERY"> <templateId root= "216.840.1.371706.10...4.1" /> <id nullFlavor="NA" /> <code codeSystem="local" code="LIP" displayName="LIPASE" /> <statusCode code= "completed" /> <component> <observation moodCode="EVN" classCode= "OBS"> <templateId root="16.840.1.591436.10...4.2" /> < id nullFlavor="NA" /> <code codeSystem="local" code="LIP" displayName= "LIPASE" /> <statusCode code="completed" /> <effectiveTime value="[id number]" /> <value unit="Units/L" xsi:type="PQ" value="150 " /> <referenceRange> <observationRange> <text> 73-393</text> </observationRange> </referenceRange> < /observation> </component> </organizer> </entry> <entry> < organizer moodCode="EVN" classCode="BATTERY"> <templateId root= "16.840.1.190645.10...4.1" /> <id nullFlavor="NA" /> <code codeSystem="local" code="VRP" displayName="VIRUS RESPIRATORY PROFILE" /> < statusCode code="completed" /> <component> <observation moodCode= "EVN" classCode="OBS"> <templateId root="2.16.840.1.055726.10.20.22.4.2 " /> <id nullFlavor="NA" /> <code codeSystem="local" code="MB " displayName="Microbiology" /> <statusCode code="completed" /> <effectiveTime value="[id number]" /> <value xsi:type="ST" value="< pre><b>RESPIRATORY PROFILE</b> See BelowRESPIRATORY PROFILE(F) Kasandra Date /Time: 11/22/2015 08:33 Suzie Date/Time: 2015 09:59SOURCE: NASOPHARYNGEALSPEC DESC: ADENOVIRUSNOT DETECTEDBORDETELLA PERTUSSISNOT DETECTEDCHLAMYDIA PNEUMONIAENOT DETECTEDCORONAVIRUS 229ENOT DETECTEDCORONAVIRUS PDV0DIT DETECTEDCORONAVIRUS FV88BLS DETECTEDCORONAVIRUS AZ91VGJ DETECTEDHUMAN METAPNEUMOVIRUSNOT DETECTEDINFLUENZA A 2009 H1NOT DETECTEDINFLUENZA A H1NOT DETECTEDINFLUENZA A H3NOT DETECTEDINFLUENZA ANOT DETECTEDINFLUENZA BNOT DETECTEDMYCOPLASMA PNEUMONIAENOT DETECTEDPARAINFLUENZA 1NOT DETECTEDPARAINFLUENZA 2NOT DETECTEDPARAINFLUENZA 3NOT DETECTEDPARAINFLUENZA 4NOT DETECTEDRHINOVIRUS/ENTEROVIRUSNOT DETECTEDRSVNOT DETECTEDMORTON [facility] [place] [address]</pre>" /> <referenceRange> <observationRange> <text /> </observationRange> </referenceRange> </observation> </ component> </organizer> </entry> <entry> <organizer moodCode="EVN" classCode="BATTERY"> <templateId root="2.16.840.1.303454.10.20.22.4.1" /> <id nullFlavor="NA" /> <code codeSystem="local" code="CBC" displayName ="CBC" /> <statusCode code="completed" /> <component> < observation moodCode="EVN" classCode="OBS"> <templateId root= "216.840.1.786057.10.4.2" /> <id nullFlavor="NA" /> < code codeSystem="local" code="MCH" displayName="MEAN CELL HGB" /> < statusCode code="completed" /> <effectiveTime value="" /> <value unit="pg" xsi:type="PQ" value="28.5" /> <referenceRange > <observationRange> <text>27.0-33.0</text> < /observationRange> </referenceRange> </observation> </ component> <component> <observation moodCode="EVN" classCode="OBS"> <templateId root="05.02.840.1.133934.01.03.22.4.2" /> <id nullFlavor="NA" /> <code codeSystem="local" code="MCHC" displayName= "MEAN CELL HGB CONCENTRATION" /> <statusCode code="completed" /> <effectiveTime value="" /> <value unit="g/dL" xsi:type= "PQ" value="32.4" /> <referenceRange> <observationRange> <text>32.0-37.0</text> </observationRange> </ referenceRange> </observation> </component> <component> <observation moodCode="EVN" classCode="OBS"> <templateId root= "05.02.840.1.262846.10.4.2" /> <id nullFlavor="NA" /> < code codeSystem="local" code="MCV" displayName="MEAN CELL VOLUME" /> < statusCode code="completed" /> <effectiveTime value="" /> <value unit="fl" xsi:type="PQ" value="88.1" /> <referenceRange > <observationRange> <text>80.0-100.0</text> </observationRange> </referenceRange> </observation> </ component> <component> <observation moodCode="EVN" classCode="OBS"> <templateId root="2.16.840.1.774289.22.4.2" /> <id nullFlavor="NA" /> <code codeSystem="local" code="RBC" displayName=" RED BLOOD CELL" /> <statusCode code="completed" /> < effectiveTime value="" /> <value unit="m/cumm" xsi:type="PQ " value="3.86" /> <interpretationCode codeSystem="local" code="*" /> <referenceRange> <observationRange> <text>4.00- 6.00</text> </observationRange> </referenceRange> </ observation> </component> <component> <observation moodCode= "EVN" classCode="OBS"> <templateId root="216.840.1.500798.01.03.22.4.2 " /> <id nullFlavor="NA" /> <code codeSystem="local" code="RDW " displayName="RED CELL DISTRIBUTION WIDTH" /> <statusCode code= "completed" /> <effectiveTime value="" /> <value unit="%" xsi:type="PQ" value="16.1" /> <interpretationCode codeSystem="local" code="*" /> <referenceRange> < observationRange> <text>11.0-15.6</text> </ observationRange> </referenceRange> </observation> </ component> <component> <observation moodCode="EVN" classCode="OBS"> <templateId root="216.840.1.956202.102022.4.2" /> <id nullFlavor="NA" /> <code codeSystem="local" code="WBC" displayName= "WHITE BLOOD CELL" /> <statusCode code="completed" /> < effectiveTime value="" /> <value unit="k/cumm" xsi:type="PQ " value="14.5" /> <interpretationCode codeSystem="local" code="*" /> <referenceRange> <observationRange> <text>5.0- 10.0</text> </observationRange> </referenceRange> </ observation> </component> <component> <observation moodCode= "EVN" classCode="OBS"> <templateId root="05.02.840.1.577318.1022.4.2 " /> <id nullFlavor="NA" /> <code codeSystem="local" code= "HGBT" displayName="HEMOGLOBIN" /> <statusCode code="completed" /> <effectiveTime value="" /> <value unit="gm/dL" xsi: type="PQ" value="11.0" /> <interpretationCode codeSystem="local" code= "*" /> <referenceRange> <observationRange> < text>12.0-16.0</text> </observationRange> </referenceRange> </observation> </component> <component> <observation moodCode="EVN" classCode="OBS"> <templateId root= "05.02.840.1.881721.10.2022.4.2" /> <id nullFlavor="NA" /> < code codeSystem="local" code="HCTT" displayName="HEMATOCRIT" /> < statusCode code="completed" /> <effectiveTime value="" /> <value unit="%" xsi:type="PQ" value="34.0" /> < interpretationCode codeSystem="local" code="*" /> <referenceRange> <observationRange> <text>37.0-47.0</text> </ observationRange> </referenceRange> </observation> </ component> <component> <observation moodCode="EVN" classCode="OBS"> <templateId root="16.840.1.802159.10..22.4.2" /> <id nullFlavor="NA" /> <code codeSystem="local" code="PLT" displayName= "PLATELET COUNT" /> <statusCode code="completed" /> < effectiveTime value="[id number]" /> <value unit="k/cumm" xsi:type="PQ " value="371" /> <referenceRange> <observationRange> <text>150-400</text> </observationRange> </ referenceRange> </observation> </component> </organizer> </entry > <entry> <organizer moodCode="EVN" classCode="BATTERY"> <templateId root="05.02.840.1.460417.10..22.4.1" /> <id nullFlavor="NA" /> <code codeSystem="local" code="RENAL" displayName="RENAL FUNCTION PANEL" /> < statusCode code="completed" /> <component> <observation moodCode= "EVN" classCode="OBS"> <templateId root="05.02.840.1.633470.10..22.4.2 " /> <id nullFlavor="NA" /> <code codeSystem="local" code="K" displayName="POTASSIUM" /> <statusCode code="completed" /> < effectiveTime value="[id number]" /> <value unit="mmol/L" xsi:type="PQ " value="4.3" /> <referenceRange> <observationRange> <text>3.5-5.3</text> </observationRange> </ referenceRange> </observation> </component> <component> <observation moodCode="EVN" classCode="OBS"> <templateId root= "16.840.1.214843.10.4.2" /> <id nullFlavor="NA" /> < code codeSystem="local" code="eGFR" displayName="EST GFR (MDRD)" /> < statusCode code="completed" /> <effectiveTime value="" /> <value unit="mL/min" xsi:type="PQ" value="> 60" /> < referenceRange> <observationRange> <text>> 59</text> </observationRange> </referenceRange> </observation > </component> <component> <observation moodCode="EVN" classCode="OBS"> <templateId root="05.02.840.1.812065.01.03.22.4.2" /> <id nullFlavor="NA" /> <code codeSystem="local" code="GAP" displayName="ANION GAP" /> <statusCode code="completed" /> < effectiveTime value="" /> <value unit="mmol/L" xsi:type="PQ " value="7" /> <referenceRange> <observationRange> <text>5-15</text> </observationRange> </referenceRange > </observation> </component> <component> <observation moodCode="EVN" classCode="OBS"> <templateId root= "05.02.840.1.762524.01.03.22.4.2" /> <id nullFlavor="NA" /> < code codeSystem="local" code="eCrCl" displayName="EST CrCl (CG)" /> < statusCode code="completed" /> <effectiveTime value="" /> <value unit="mL/min" xsi:type="PQ" value="> 60" /> < referenceRange> <observationRange> <text>> 59</text> </observationRange> </referenceRange> </observation > </component> <component> <observation moodCode="EVN" classCode="OBS"> <templateId root="216.840.1.605727.22.4.2" /> <id nullFlavor="NA" /> <code codeSystem="local" code="GLU" displayName="GLUCOSE" /> <statusCode code="completed" /> < effectiveTime value="" /> <value unit="mg/dL" xsi:type="PQ " value="156" /> <interpretationCode codeSystem="local" code="*" /> <referenceRange> <observationRange> <text>70-99</ text> </observationRange> </referenceRange> </ observation> </component> <component> <observation moodCode= "EVN" classCode="OBS"> <templateId root="05.02.840.1.244008.01.03.22.4.2 " /> <id nullFlavor="NA" /> <code codeSystem="local" code="CA " displayName="CALCIUM" /> <statusCode code="completed" /> < effectiveTime value="" /> <value unit="mg/dL" xsi:type="PQ " value="8.3" /> <interpretationCode codeSystem="local" code="*" /> <referenceRange> <observationRange> <text>8.5- 10.1</text> </observationRange> </referenceRange> </ observation> </component> <component> <observation moodCode= "EVN" classCode="OBS"> <templateId root="05.02.840.1.280411.01.03.22.4.2 " /> <id nullFlavor="NA" /> <code codeSystem="local" code="BUN " displayName="BLOOD UREA NITROGEN" /> <statusCode code="completed" /> <effectiveTime value="" /> <value unit="mg/dL" xsi:type="PQ" value="10" /> <referenceRange> < observationRange> <text>7-20</text> </observationRange> </referenceRange> </observation> </component> < component> <observation moodCode="EVN" classCode="OBS"> < templateId root="2.16.840.1.320645.01.03.22.4.2" /> <id nullFlavor="NA " /> <code codeSystem="local" code="CREAT" displayName="CREATININE" /> <statusCode code="completed" /> <effectiveTime value= "" /> <value unit="mg/dL" xsi:type="PQ" value="0.5" /> <interpretationCode codeSystem="local" code="*" /> < referenceRange> <observationRange> <text>0.6-1.0</text> </observationRange> </referenceRange> </observation > </component> <component> <observation moodCode="EVN" classCode="OBS"> <templateId root="2.16.840.1.547446.01.03.22.4.2" /> <id nullFlavor="NA" /> <code codeSystem="local" code="NA" displayName="SODIUM" /> <statusCode code="completed" /> < effectiveTime value="" /> <value unit="mmol/L" xsi:type="PQ " value="142" /> <referenceRange> <observationRange> <text>135-148</text> </observationRange> </ referenceRange> </observation> </component> <component> <observation moodCode="EVN" classCode="OBS"> <templateId root= "216.840.1.174835.10..22.4.2" /> <id nullFlavor="NA" /> < code codeSystem="local" code="CL" displayName="CHLORIDE" /> < statusCode code="completed" /> <effectiveTime value="" /> <value unit="mmol/L" xsi:type="PQ" value="106" /> < referenceRange> <observationRange> <text>98-110</text> </observationRange> </referenceRange> </observation> </component> <component> <observation moodCode="EVN" classCode ="OBS"> <templateId root="16.840.1.769263.10..22.4.2" /> < id nullFlavor="NA" /> <code codeSystem="local" code="CO2" displayName= "CARBON DIOXIDE" /> <statusCode code="completed" /> < effectiveTime value="" /> <value unit="mmol/L" xsi:type="PQ " value="29" /> <referenceRange> <observationRange> <text>21-32</text> </observationRange> </ referenceRange> </observation> </component> <component> <observation moodCode="EVN" classCode="OBS"> <templateId root= "16.840.1.779984.10..22.4.2" /> <id nullFlavor="NA" /> < code codeSystem="local" code="ALB" displayName="ALBUMIN" /> < statusCode code="completed" /> <effectiveTime value="" /> <value unit="gm/dL" xsi:type="PQ" value="2.2" /> < interpretationCode codeSystem="local" code="*" /> <referenceRange> <observationRange> <text>3.4-5.0</text> </ observationRange> </referenceRange> </observation> </ component> <component> <observation moodCode="EVN" classCode="OBS"> <templateId root="05.02.840.1.614056.10.20.22.4.2" /> <id nullFlavor="NA" /> <code codeSystem="local" code="PHOS" displayName= "PHOSPHORUS" /> <statusCode code="completed" /> < effectiveTime value="" /> <value unit="mg/dL" xsi:type="PQ " value="2.6" /> <referenceRange> <observationRange> <text>2.5-4.9</text> </observationRange> </ referenceRange> </observation> </component> </organizer> </entry > <entry> <organizer moodCode="EVN" classCode="BATTERY"> <templateId root="05.02.840.1.701370.10...4.1" /> <id nullFlavor="NA" /> <code codeSystem="local" code="MAG" displayName="MAGNESIUM" /> <statusCode code= "completed" /> <component> <observation moodCode="EVN" classCode= "OBS"> <templateId root="05.02.840.1.864294.10..22.4.2" /> < id nullFlavor="NA" /> <code codeSystem="local" code="MAG" displayName= "MAGNESIUM" /> <statusCode code="completed" /> <effectiveTime value="" /> <value unit="mg/dL" xsi:type="PQ" value="1.9" / > <referenceRange> <observationRange> <text>1.8 -2.4</text> </observationRange> </referenceRange> </ observation> </component> </organizer> </entry> <entry> <organizer moodCode="EVN" classCode="BATTERY"> <templateId root= "2.16.840.1.391117.10..22.4.1" /> <id nullFlavor="NA" /> <code codeSystem="local" code="RENAL" displayName="RENAL FUNCTION PANEL" /> < statusCode code="completed" /> <component> <observation moodCode= "EVN" classCode="OBS"> <templateId root="2.16.840.1.085152.10...4.2 " /> <id nullFlavor="NA" /> <code codeSystem="local" code="K" displayName="POTASSIUM" /> <statusCode code="completed" /> < effectiveTime value="" /> <value unit="mmol/L" xsi:type="PQ " value="3.7" /> <referenceRange> <observationRange> <text>3.5-5.3</text> </observationRange> </ referenceRange> </observation> </component> <component> <observation moodCode="EVN" classCode="OBS"> <templateId root= "216.840.1.590428.10..22.4.2" /> <id nullFlavor="NA" /> < code codeSystem="local" code="eGFR" displayName="EST GFR (MDRD)" /> < statusCode code="completed" /> <effectiveTime value="" /> <value unit="mL/min" xsi:type="PQ" value="> 60" /> < referenceRange> <observationRange> <text>> 59</text> </observationRange> </referenceRange> </observation > </component> <component> <observation moodCode="EVN" classCode="OBS"> <templateId root="16.840.1.022692.10..22.4.2" /> <id nullFlavor="NA" /> <code codeSystem="local" code="GAP" displayName="ANION GAP" /> <statusCode code="completed" /> < effectiveTime value="" /> <value unit="mmol/L" xsi:type="PQ " value="2" /> <interpretationCode codeSystem="local" code="*" /> <referenceRange> <observationRange> <text>5-15</ text> </observationRange> </referenceRange> </ observation> </component> <component> <observation moodCode= "EVN" classCode="OBS"> <templateId root="16.840.1.311036...4.2 " /> <id nullFlavor="NA" /> <code codeSystem="local" code= "eCrCl" displayName="EST CrCl (CG)" /> <statusCode code="completed" /> <effectiveTime value="" /> <value unit="mL/min" xsi:type="PQ" value="> 60" /> <referenceRange> < observationRange> <text>> 59</text> </ observationRange> </referenceRange> </observation> </ component> <component> <observation moodCode="EVN" classCode="OBS"> <templateId root="05.02.840.1.864571.10.20.22.4.2" /> <id nullFlavor="NA" /> <code codeSystem="local" code="GLU" displayName= "GLUCOSE" /> <statusCode code="completed" /> <effectiveTime value="" /> <value unit="mg/dL" xsi:type="PQ" value="98" / > <referenceRange> <observationRange> <text>70- 99</text> </observationRange> </referenceRange> </ observation> </component> <component> <observation moodCode= "EVN" classCode="OBS"> <templateId root="05.02.840.1.248554.10.20.22.4.2 " /> <id nullFlavor="NA" /> <code codeSystem="local" code="CA " displayName="CALCIUM" /> <statusCode code="completed" /> < effectiveTime value="" /> <value unit="mg/dL" xsi:type="PQ " value="7.8" /> <interpretationCode codeSystem="local" code="*" /> <referenceRange> <observationRange> <text>8.5- 10.1</text> </observationRange> </referenceRange> </ observation> </component> <component> <observation moodCode= "EVN" classCode="OBS"> <templateId root="05.02.840.1.968306.10..22.4.2 " /> <id nullFlavor="NA" /> <code codeSystem="local" code="BUN " displayName="BLOOD UREA NITROGEN" /> <statusCode code="completed" /> <effectiveTime value="" /> <value unit="mg/dL" xsi:type="PQ" value="17" /> <referenceRange> < observationRange> <text>7-20</text> </observationRange> </referenceRange> </observation> </component> < component> <observation moodCode="EVN" classCode="OBS"> < templateId root="05.02.840.1.567792.10.20.22.4.2" /> <id nullFlavor="NA " /> <code codeSystem="local" code="CREAT" displayName="CREATININE" /> <statusCode code="completed" /> <effectiveTime value= "" /> <value unit="mg/dL" xsi:type="PQ" value="0.5" /> <interpretationCode codeSystem="local" code="*" /> < referenceRange> <observationRange> <text>0.6-1.0</text> </observationRange> </referenceRange> </observation > </component> <component> <observation moodCode="EVN" classCode="OBS"> <templateId root="16.840.1.972038.10..22.4.2" /> <id nullFlavor="NA" /> <code codeSystem="local" code="NA" displayName="SODIUM" /> <statusCode code="completed" /> < effectiveTime value="" /> <value unit="mmol/L" xsi:type="PQ " value="139" /> <referenceRange> <observationRange> <text>135-148</text> </observationRange> </ referenceRange> </observation> </component> <component> <observation moodCode="EVN" classCode="OBS"> <templateId root= "05.02.840.1.259568..22.4.2" /> <id nullFlavor="NA" /> < code codeSystem="local" code="CL" displayName="CHLORIDE" /> < statusCode code="completed" /> <effectiveTime value="858419121334" /> <value unit="mmol/L" xsi:type="PQ" value="103" /> < referenceRange> <observationRange> <text>98-110</text> </observationRange> </referenceRange> </observation> </component> <component> <observation moodCode="EVN" classCode ="OBS"> <templateId root="05.02.840.1.269858.22.4.2" /> < id nullFlavor="NA" /> <code codeSystem="local" code="CO2" displayName= "CARBON DIOXIDE" /> <statusCode code="completed" /> < effectiveTime value="" /> <value unit="mmol/L" xsi:type="PQ " value="34" /> <interpretationCode codeSystem="local" code="*" /> <referenceRange> <observationRange> <text>21-32</ text> </observationRange> </referenceRange> </ observation> </component> <component> <observation moodCode= "EVN" classCode="OBS"> <templateId root="16.840.1.096212.01.03.22.4.2 " /> <id nullFlavor="NA" /> <code codeSystem="local" code="ALB " displayName="ALBUMIN" /> <statusCode code="completed" /> < effectiveTime value="" /> <value unit="gm/dL" xsi:type="PQ " value="2.3" /> <interpretationCode codeSystem="local" code="*" /> <referenceRange> <observationRange> <text>3.4-5.0 </text> </observationRange> </referenceRange> </ observation> </component> <component> <observation moodCode= "EVN" classCode="OBS"> <templateId root="16.840.1.461432.01.03.22.4.2 " /> <id nullFlavor="NA" /> <code codeSystem="local" code= "PHOS" displayName="PHOSPHORUS" /> <statusCode code="completed" /> <effectiveTime value="" /> <value unit="mg/dL" xsi: type="PQ" value="2.8" /> <referenceRange> <observationRange > <text>2.5-4.9</text> </observationRange> </ referenceRange> </observation> </component> </organizer> </entry > <entry> <organizer moodCode="EVN" classCode="BATTERY"> <templateId root="840.1.980030.10.22.4.1" /> <id nullFlavor="NA" /> <code codeSystem="local" code="MAG" displayName="MAGNESIUM" /> <statusCode code= "completed" /> <component> <observation moodCode="EVN" classCode= "OBS"> <templateId root="840.1.270641.01.03.22.4.2" /> < id nullFlavor="NA" /> <code codeSystem="local" code="MAG" displayName= "MAGNESIUM" /> <statusCode code="completed" /> <effectiveTime value="[id number]" /> <value unit="mg/dL" xsi:type="PQ" value="2.0" / > <referenceRange> <observationRange> <text>1.8 -2.4</text> </observationRange> </referenceRange> </ observation> </component> </organizer> </entry> <entry> <organizer moodCode="EVN" classCode="BATTERY"> <templateId root= "840.1.629781.01.03.22.4.1" /> <id nullFlavor="NA" /> <code codeSystem="local" code="CBCD" displayName="CBC W/DIFF" /> <statusCode code ="completed" /> <component> <observation moodCode="EVN" classCode= "OBS"> <templateId root="05.02.840.1.305551.10..22.4.2" /> < id nullFlavor="NA" /> <code codeSystem="local" code="GR#" displayName= "GRANULOCYTE #" /> <statusCode code="completed" /> < effectiveTime value="005924141705" /> <value unit="k/cumm" xsi:type="PQ " value="7.6" /> <referenceRange> <observationRange> <text>2.0-9.0</text> </observationRange> </ referenceRange> </observation> </component> <component> <observation moodCode="EVN" classCode="OBS"> <templateId root= "216.840.1.476424.10.20.22.4.2" /> <id nullFlavor="NA" /> < code codeSystem="local" code="GR%" displayName="GRANULOCYTE %" /> <statusCode code="completed" /> <effectiveTime value="516861108133 " /> <value unit="%" xsi:type="PQ" value="79" /> < interpretationCode codeSystem="local" code="*" /> <referenceRange> <observationRange> <text>50-75</text> </ observationRange> </referenceRange> </observation> </ component> <component> <observation moodCode="EVN" classCode="OBS"> <templateId root="16.840.1.370949.10.2022.4.2" /> <id nullFlavor="NA" /> <code codeSystem="local" code="LY#" displayName= "LYMPHOCYTE #" /> <statusCode code="completed" /> < effectiveTime value="592650508424" /> <value unit="k/cumm" xsi:type="PQ " value="1.2" /> <referenceRange> <observationRange> <text>1.0-4.0</text> </observationRange> </ referenceRange> </observation> </component> <component> <observation moodCode="EVN" classCode="OBS"> <templateId root= "216.840.1.469091.10..22.4.2" /> <id nullFlavor="NA" /> < code codeSystem="local" code="LY%" displayName="LYMPHOCYTE %" /> <statusCode code="completed" /> <effectiveTime value="" /> <value unit="%" xsi:type="PQ" value="13" /> < interpretationCode codeSystem="local" code="*" /> <referenceRange> <observationRange> <text>20-30</text> </ observationRange> </referenceRange> </observation> </ component> <component> <observation moodCode="EVN" classCode="OBS"> <templateId root="05.02.840.1.945958.01.03.22.4.2" /> <id nullFlavor="NA" /> <code codeSystem="local" code="MCH" displayName= "MEAN CELL HGB" /> <statusCode code="completed" /> < effectiveTime value="" /> <value unit="pg" xsi:type="PQ" value="28.4" /> <referenceRange> <observationRange> <text>27.0-33.0</text> </observationRange> </ referenceRange> </observation> </component> <component> <observation moodCode="EVN" classCode="OBS"> <templateId root= "05.02.840.1.585440.10.2022.4.2" /> <id nullFlavor="NA" /> < code codeSystem="local" code="MCHC" displayName="MEAN CELL HGB CONCENTRATION" / > <statusCode code="completed" /> <effectiveTime value= "" /> <value unit="g/dL" xsi:type="PQ" value="31.7" /> <interpretationCode codeSystem="local" code="*" /> < referenceRange> <observationRange> <text>32.0-37.0</text > </observationRange> </referenceRange> </observation > </component> <component> <observation moodCode="EVN" classCode="OBS"> <templateId root="05.02.840.1.081451.10...4.2" /> <id nullFlavor="NA" /> <code codeSystem="local" code="MCV" displayName="MEAN CELL VOLUME" /> <statusCode code="completed" /> <effectiveTime value="" /> <value unit="fl" xsi:type= "PQ" value="89.5" /> <referenceRange> <observationRange> <text>80.0-100.0</text> </observationRange> </ referenceRange> </observation> </component> <component> <observation moodCode="EVN" classCode="OBS"> <templateId root= "840.1.568645.01.03.22.4.2" /> <id nullFlavor="NA" /> < code codeSystem="local" code="MO#" displayName="MONOCYTE #" /> < statusCode code="completed" /> <effectiveTime value="" /> <value unit="k/cumm" xsi:type="PQ" value="0.6" /> < referenceRange> <observationRange> <text>0.1-1.0</text> </observationRange> </referenceRange> </observation > </component> <component> <observation moodCode="EVN" classCode="OBS"> <templateId root="05.02.840.1.137478.10..22.4.2" /> <id nullFlavor="NA" /> <code codeSystem="local" code="MO% " displayName="MONOCYTE %" /> <statusCode code="completed" /> <effectiveTime value="[id number]" /> <value unit="%" xsi: type="PQ" value="6" /> <referenceRange> <observationRange> <text>4-6</text> </observationRange> </ referenceRange> </observation> </component> <component> <observation moodCode="EVN" classCode="OBS"> <templateId root= "2.16.840.1.062444.10..22.4.2" /> <id nullFlavor="NA" /> < code codeSystem="local" code="RBC" displayName="RED BLOOD CELL" /> < statusCode code="completed" /> <effectiveTime value="[id number]" /> <value unit="m/cumm" xsi:type="PQ" value="3.73" /> < interpretationCode codeSystem="local" code="*" /> <referenceRange> <observationRange> <text>4.00-6.00</text> </ observationRange> </referenceRange> </observation> </ component> <component> <observation moodCode="EVN" classCode="OBS"> <templateId root="2.16.840.1.716992.10..22.4.2" /> <id nullFlavor="NA" /> <code codeSystem="local" code="RDW" displayName=" RED CELL DISTRIBUTION WIDTH" /> <statusCode code="completed" /> <effectiveTime value="[id number]" /> <value unit="%" xsi:type= "PQ" value="17.1" /> <interpretationCode codeSystem="local" code="*" / > <referenceRange> <observationRange> <text> 11.0-15.6</text> </observationRange> </referenceRange> </observation> </component> <component> <observation moodCode="EVN" classCode="OBS"> <templateId root= "216.840.1.739139.10..4.2" /> <id nullFlavor="NA" /> < code codeSystem="local" code="WBC" displayName="WHITE BLOOD CELL" /> < statusCode code="completed" /> <effectiveTime value="" /> <value unit="k/cumm" xsi:type="PQ" value="9.6" /> < referenceRange> <observationRange> <text>5.0-10.0</text > </observationRange> </referenceRange> </observation > </component> <component> <observation moodCode="EVN" classCode="OBS"> <templateId root="16.840.1.869886.01.03.22.4.2" /> <id nullFlavor="NA" /> <code codeSystem="local" code="HGBT" displayName="HEMOGLOBIN" /> <statusCode code="completed" /> < effectiveTime value="" /> <value unit="gm/dL" xsi:type="PQ " value="10.6" /> <interpretationCode codeSystem="local" code="*" /> <referenceRange> <observationRange> <text>12.0- 16.0</text> </observationRange> </referenceRange> </ observation> </component> <component> <observation moodCode= "EVN" classCode="OBS"> <templateId root="216.840.1.750169.10.4.2 " /> <id nullFlavor="NA" /> <code codeSystem="local" code= "HCTT" displayName="HEMATOCRIT" /> <statusCode code="completed" /> <effectiveTime value="" /> <value unit="%" xsi: type="PQ" value="33.4" /> <interpretationCode codeSystem="local" code= "*" /> <referenceRange> <observationRange> < text>37.0-47.0</text> </observationRange> </referenceRange> </observation> </component> <component> <observation moodCode="EVN" classCode="OBS"> <templateId root= "840.1.018776.10.4.2" /> <id nullFlavor="NA" /> < code codeSystem="local" code="PLT" displayName="PLATELET COUNT" /> < statusCode code="completed" /> <effectiveTime value="" /> <value unit="k/cumm" xsi:type="PQ" value="407" /> < interpretationCode codeSystem="local" code="*" /> <referenceRange> <observationRange> <text>150-400</text> </ observationRange> </referenceRange> </observation> </ component> </organizer> </entry> <entry> <organizer moodCode="EVN" classCode="BATTERY"> <templateId root="840.1.253846.01.03.22.4.1" /> <id nullFlavor="NA" /> <code codeSystem="local" code="OP" displayName= "OVA AND PARASITES" /> <statusCode code="completed" /> <component> <observation moodCode="EVN" classCode="OBS"> <templateId root= "840.1.087574.01.03.22.4.2" /> <id nullFlavor="NA" /> < code codeSystem="local" code="MB" displayName="Microbiology" /> < statusCode code="completed" /> <effectiveTime value="[id number]" /> <value xsi:type="ST" value="<pre><b>OVA AND PARASITES</b> See BelowOVA AND PARASITES(F) Kasandra Date/Time: 11/24/2015 14:00 Suzie Date/Time: 11/28/2015 14:10SOURCE: STOOLSPEC DESC: BARIUM AND MEDICATIONS SUCH ANTIBIOTICS AND NONABSORBABLEANTIDIARHEAL PREPARATIONS INTERFERE WITH THE DETECTION OFINTESTINAL PARASITES. SPECIMEN COLLECTION FOR PARASITESSHOULD BE DELAYED 7 - 14 DAYS AFTER THESE TREATMENTS.TNPTEST NOT PERFORMEDMORTON COUNTY [facility]ALTH[address] [place] [address]</pre>" /> <referenceRange> <observationRange> <text /> </observationRange> </referenceRange> </observation> </ component> </organizer> </entry></section> Encounters ACCT No. Visit Date/Time Discharge Status Pt. Type Provider Facility Loc./Unit Complaint [id number] 10/03/2012 03:10:00 10/03/2012 06:49:00 DIS Emergency Joe Torres MD [facility] [id number] 09/17/2012 13:07:00 09/26/2012 14:32:00 DIS Inpatient Awa Prabhakar MD [address] [id number] 07/02/2012 12:33:00 07/02/2012 13:45:00 DIS Emergency Francis Carranza MD [facility] [id number] 07/01/2012 14:03:00 07/01/2012 15:55:00 DIS Emergency Hayden Mendoza MD [facility] [id number] 03/30/2012 15:25:00 03/30/2012 17:12:00 DIS Emergency Reza Alvarez DO [facility] [id number] 02/17/2012 05:55:00 02/17/2012 23:59:59 CLS Outpatient [facility] F[facility]E [id number] 12/23/2011 07:26:00 12/23/2011 09:20:00 DIS Emergency Quan PRESTON, Luz Marina Forbes on [address] [id number] 12/22/2011 00:28:00 12/22/2011 03:05:00 DIS Emergency Khoa PRESTON, Terence Rayo on [address] [id number] 09/01/2012 17:30:00 Document Registration [id number] 08/20/2012 14:00:00 Document Registration [id number] 11/22/2015 00:47:00 11/24/2015 16:48:00 DIS In[address] Hamlet PRESTON[address] [id number] 11/13/2015 13:54:00 11/13/2015 15:44:00 DIS Emergency Gee PRESTON, [facility] [id number] 01/02/2015 21:27:00 01/02/2015 22:46:00 DIS Emergency Wendi PRESTON, [facility] [id number] 11/04/2014 23:46:00 11/05/2014 03:30:00 DIS Emergency Kip ANDRADE, [facility] [id number] 10/10/2014 08:41:00 10/10/2014 11:10:00 DIS Emergency Delia PRESTON, Nir [facility] [id number] 09/21/2014 13:50:00 09/21/2014 18:02:00 DIS Outpatient Jesi PRESTON, Franco [facility] [id number] 08/15/2014 15:40:00 08/15/2014 17:05:00 DIS Emergency [id number] 04/17/2014 18:03:00 04/17/2014 20:07:00 DIS Emergency Ken PRESTON, [facility] [id number] 10/18/2013 23:10:00 10/19/2013 00:54:00 [id number] 02/04/2013 13:20:00 02/04/2013 14:06:00 DIS Emergency Ken PRESTON, Sudeep [facility] W.ANDERSON [id number] 01/30/2013 13:20:00 01/30/2013 14:41:00 DIS Emergency Rakan PRESTON, Yamel [facility] W.ANDERSON [id number] 04/19/2012 20:34:00 04/19/2012 22:32:00 DIS Emergency Delia PRESTON, Nir [facility] W.ANDERSON [id number] 01/07/2012 08:25:00 01/07/2012 08:25:00 DIS Outpatient Morales PRESTON, Cyndie N [facility] W.END [id number] 2011 11:06:00 2011 15:40:00 DIS Emergency Kim PRESTON, Xenia [facility] W.EDN [id number] 2011 00:00:00 2011 00:00:00 CAN Outpatient Aki PRESTON, Awa Schroeder [facility] W.RAC
[2017-03-12 07:49] VITALS: BP 100/52
--- NOTE | 2017-03-12 08:56 | Progress Note-Pre Operative ---
Pre-Operative Progress Note H&P Reviewed The H&P was reviewed, patient examined and no changes noted. Time Seen by Provider: 08:50 Date H&P Reviewed: Mar 12, 2017 Time H&P Reviewed: 08:52 Pre-Operative Diagnosis: Melena, Gastritis IDANIA CHAU DO Mar 12, 2017 08:56
--- NOTE | 2017-03-12 09:30 | Progress Note-Post Operative ---
Post-Operative Progess Note Surgeon (s)/Lubrication Supervisor (s) Surgeon IDANIA CHAU DO Lubrication Supervisor: none Pre-Operative Diagnosis Melena, Gastritis Post-Operative Diagnosis Gastritis Proctitis Dirty prep Procedure & Operative Findings Date of Procedure 03/12/17 Procedure Performed/Findings EGD with bx Colonoscopy cut short, with bx Anesthesia Type IV sedation by PELLETIZER OPERATOR Estimated Blood Loss Estimated blood loss (mL): scant Specimens/Packing Specimens Removed Gastric bx Rectal bx IDANIA CHAU DO Mar 12, 2017 09:30
--- NOTE | 2017-03-12 09:32 | Endoscopy Discharge Instruct ---
Endo Procedure/Findings Findings 1.: Gastritis 2.: Colitis 3.: Other Findings (Poor prep, solid fecal material) Discharge Instructions - Activity: You might feel a little sleepy until tomorrow. This is due to the medicine you received to relax you. Until tomorrow, you should: NOT drive a car, operate machinery or power tools. NOT drink any alcoholic beverages. NOT make any important decisions or sign importortant papers. Do not return to work until tomorrow, unless otherwise instructed. Resume previous activities tomorrow. Diet: Start by taking liquids. If you tolerate liquids, advance to solid food. make appointment for one week. Notify Physician - If you experience excessive bleeding, unusual abdominal pain, fever, or chest pain, contact your doctor immediately. Follow-Up: - I have received and understand the above instructions and will call my doctor if I have any further questions. Patient Signature Date Nurse Signature Other (Relationship) IDANIA CHAU DO Mar 12, 2017 09:31
[2017-03-12 09:45] VITALS: BP 113/63
[2017-03-12 10:20] VITALS: BP 106/61
[2017-03-12 10:39] VITALS: BP 106/61
--- NOTE | 2017-03-12 20:11 | OPERATIVE REPORT ---
DATE OF SERVICE: PREOPERATIVE DIAGNOSES: 1. Gastritis. 2. Melena. POSTOPERATIVE DIAGNOSES: 1. Gastritis. 2. Proctitis. 3. Dirty prep, solid fecal material seen. PROCEDURES: 1. EGD with biopsy. 2. Colonoscopy with biopsy cut short. SURGEON: Jon Mackay DO SUPPLY CHAIN SPECIALIST: None. ANESTHESIA: IV sedation by CLINICAL ALLERGIST. SPECIMENS: 1. Biopsy from gastric mucosa. 2. Biopsy from rectal mucosa. BLOOD LOSS: Scant. FLUIDS: Per anesthesia. POSTOPERATIVE CONDITION: Stable. INDICATION FOR PROCEDURE: The patient is a 46-year-old female who has been having some pale stools and then melanotic stools and she had a residential history of gastritis, needed EGD and colonoscopy. She also had some abdominal pain. FINDINGS: The patient had what look like some gastritis. Biopsy was taken. She also had what look like an ulceration or proctitis. Biopsy was done. Unfortunately, colonoscopy had to be cut short because of fully formed fecal material in the sigmoid colon, unable to get pass this, will need repeat colonoscopy. PROCEDURE NOTE: After informed consent was obtained, the patient was brought to the endoscopy suite, placed in the bed in the left lateral decubitus position. She was administered IV sedation. Monitored the entire time by the CLINICAL ALLERGIST heart rate, blood pressure and pulse ox. The scope was inserted down the mouth into the esophagus and then down and then actually pushed right into the small intestine, looked okay, took a picture of this and then slightly pulled back,it looked like gastric mucosa, did look like there was some gastritis. Elected to do a biopsy and then pulled back a little more and actually could see two sides of small intestine. She has had previous gastric bypass. This may be a small gastric pouch attached to a large opening and probably a loop of jejunum up to the gastric pouch. She also had what looked like a small hiatal hernia, but GE junction looked okay. I then removed the scope up the esophagus and out the mouth. Then switched scopes, started to perform the colonoscopy. Immediately upon entry into the rectum, looked like there was almost an ulceration or proctitis, did a biopsy in this area and then pushed forward. Unfortunately, into the sigmoid colon encountered fully formed fecal material, unable to get pass this and had to cut the colonoscopy short because of the poor prep. Because the fecal material started coming down, could not even retroflex in the rectal vault. Scope was removed. The patient tolerated the procedure. She was recovered in the endoscopy suite and then transferred to room. Job ID: [id number] DocumentID: [id number] Dictated Date: 03/12/2017 14:16:55 Documentation Liaison Date: 03/12/2017 20:11:03 Dictated By: DO ZAIDA PEÑA
== END ==
LOC: ENDO 06:57
PROVIDERS: ATTEND Surgery
DX: K29.50 Unspecified chronic gastritis without bleeding (principal); K52.89 Other specified noninfective gastroenteritis and colitis; B20 Human immunodeficiency virus [HIV] disease; I25.2 Old myocardial infarction
CPT/HCPCS: 84703; 88305

== ENCOUNTER 2017-03-19 05:34 | Outpatient (CLI) | payer MEDICARE, MEDICAID ==
[~2017-03-19] VITALS: Ht 162.6 cm; Wt 81.6 kg
[~2017-03-19 05:34] MED LIST changes: -HURRICAINE EXT TUBE (BENZOCAINE) ONE; -HURRICAINE EXT TUBE (BENZOCAINE) XX PRN; -LACTATED RINGERS 1,000 ML IV ONE; -LACTATED RINGERS 1,000 ML IV SCH; -LACTATED RINGERS 1,000 ML IV STA; -MIDAZOLAM 2 MG/2 ML (VERSED) VIAL ONE; -PROPOFOL INJECTION 50 ML IV ONE
== END 2017-03-19 13:18 ==
LOC: PREOP 05:34
PROVIDERS: ATTEND Surgery
DX: Z01.818 Encounter for other preprocedural examination (principal); R19.4 Change in bowel habit

== ENCOUNTER 2017-03-24 11:09 | Day surgery (SDC) | payer MEDICARE, MEDICAID ==
[~2017-03-24] VITALS: Ht 162.6 cm; Wt 81.6 kg
--- OUTSIDE RECORDS SUMMARY | 2017-03-24 11:16 | XMS REPORT ---
Author Author Alessia Erickson [facility] Address [address] [place], [place] [id number] Care Team Providers Care Manager Control Name Role Phone Alessia Erickson Unavailable PROBLEMS Type Condition ICD9-CM Code [id number] Code Onset Dates Condition Status SNOMED Code Problem Generalized anxiety disorder F41.1 Active 89628547 Problem GERD (gastroesophageal reflux disease) K21.9 Active 711993570 Problem terminal press operator prescription opiate use Z79.899 Active 707502607 Problem Insomnia G47.00 Active 811903973 Problem Cervicalgia M54.2 Active [address]17 [address] of the head R93.0 Active 835633844 Problem Low back pain M54.5 Active 083572089 Problem Cigarette nicotine dependence, uncomplicated F17.210 Active 99424950 Problem Anxiety F41.9 Active 46837254 Problem Bilateral headaches R51 Active 892581659 Problem Dorsalgia M54.9 Active 758210579 Problem Body lice infestation B85.1 Active 07802270 Problem Primary insomnia F51.01 Active 8484621 Problem Chronic depression F32.9 Active 870444321 Problem AIDS B20 Active 54372333 Problem COPD bronchitis J44.9 Active 87476076 Problem Intertrigo L30.4 Active 22826828 Problem Chronic pruritus L29.9 Active 882815755 Problem Other chronic pain G89.29 Active 54780755 Problem Migraine, unspecified, not intractable, without status migrainosus G43.909 Active 55325261 Problem Restless leg syndrome G25.81 Active 41515744 Problem Seasonal allergic rhinitis due to pollen J30.1 Active 97708708 Problem Slow transit constipation K59.01 Active 51131762 Problem Dermatitis L30.9 Active 03091307 Problem Primary hypothyroidism E03.9 Active 21864516 Problem Constipation by delayed colonic transit K59.01 Active 36017155 Problem Migraine with aura and without status migrainosus, not intractable G43.109 Active 0999435 ALLERGIES No Information SOCIAL HISTORY Never Assessed PLAN OF CARE VITAL SIGNS MEDICATIONS Medication Instructions Dosage Frequency Start Date End Date Duration Status Triamcinolone Acetonide 0.1 % External Twice a day 1 application to affected area 12h 30 days Active Fluocinonide Emulsified Base 0.05 % Externally twice a day as directed 12h Mar, 30 days Active RESULTS No Results PROCEDURES No Known procedures IMMUNIZATIONS No Known Immunizations MEDICAL (GENERAL) HISTORY Type Description Date Medical History Spasm, muscle (418.85) ; Medical History Blues , (Desc:Depression) ; [...] History Abdominal pain, unspecified site Medical History snf (current) 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
--- OUTSIDE RECORDS SUMMARY | 2017-03-24 11:22 | XMS REPORT ---
Author Author Alessia Erickson [facility] Address [address] [place], [place] [address] Care Team Providers Care Lead Case Manager Name Role Phone Alessia Erickson Unavailable PROBLEMS Type Condition ICD9-CM Code [id number] Code Onset Dates Condition Status SNOMED Code Problem Generalized anxiety disorder F41.1 Active 49869021 Problem GERD (gastroesophageal reflux disease) K21.9 Active 068858146 Problem terminal gauger prescription opiate use Z79.899 Active 928231406 Problem Insomnia G47.00 Active 376001458 Problem Cervicalgia M54.2 Active [address] Problem [address] of the head R93.0 Active 292824134 Problem Low back pain M54.5 Active 707361129 Problem Cigarette nicotine dependence, uncomplicated F17.210 Active 65719206 Problem Anxiety F41.9 Active 76014849 Problem Bilateral headaches R51 Active 116012179 Problem Dorsalgia M54.9 Active 343441343 Problem Body lice infestation B85.1 Active 35226592 Problem Primary insomnia F51.01 Active 5569645 Problem Chronic depression F32.9 Active 184410793 Problem AIDS B20 Active 39951781 Problem COPD bronchitis J44.9 Active 40136278 Problem Intertrigo L30.4 Active 67975353 Problem Chronic pruritus L29.9 Active 388873829 Problem Other chronic pain G89.29 Active 91488219 Problem Migraine, unspecified, not intractable, without status migrainosus G43.909 Active 90266638 Problem Restless leg syndrome G25.81 Active 58174497 Problem Seasonal allergic rhinitis due to pollen J30.1 Active 70063130 Problem Slow transit constipation K59.01 Active 66263839 Problem Dermatitis L30.9 Active 10284626 Problem Primary hypothyroidism E03.9 Active 35964749 Problem Constipation by delayed colonic transit K59.01 Active 24596237 Problem Migraine with aura and without status migrainosus, not intractable G43.109 Active 4782543 ALLERGIES No Information SOCIAL HISTORY Never Assessed [...]
[2017-03-24 11:25] VITALS: BP 102/68
--- OUTSIDE RECORDS SUMMARY | 2017-03-24 11:27 | XMS REPORT | Continuity of Care Document ---
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/2015 Gilles Mcnulty MD J44.1 CHRONIC OBSTRUCTIVE PULMONARY DISEASE W (ACUTE) EX 11/22/2015 [place] PRESTON, Gilles Dillard R07.9 CHEST PAIN, UNSPECIFIED Procedures Code Description [place] [address] LIGATE/STRIP LONG LEG VEI Toma PRESTON, Cole Leslie 02/17/2012 63780 PHLEB VEINS - EXTREM - TO Cole Chua MD 02/17/2012 34.91 THORACENTESIS Leila PRESTON, González Dillard 09/21/2012 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 BX Leila PRESTON, González Dillard 09/23/2012 45.16 ESOPHAGOGASTRODUODENOSCOPY [ EGD] W/CLOSED BIOPSY Franco Dennison MD 09/21 48.24 ENDOSCOPIC BIOPSY OF RECTUM Franco Dennison MD 09/21/2014 <section xmlns="urn:hl7-org:v3" xmlns:xsi="http://www.[employer].org /2001/XMLSchema-instance"> <templateId root="2.16.840.1.366908.10.20.22.2.3" / > <templateId root="2.16.840.1.322080.10.20.22.2.3.1" /> <code codeSystemName= "LOINC" codeSystem="2.16.840.1.708013.6.1" code="00907-8" displayName="Results" /> <title>Results</title> <text> <table> <thead> <tr> [...] </text> <entry> <organizer moodCode="EVN" classCode="BATTERY"> <templateId root= "2.16.840.1.177989.10..22.4.1" /> <id nullFlavor="NA" /> <code codeSystem="local" code="CBCD" displayName="CBC W/DIFF" /> <statusCode code ="completed" /> <component> <observation moodCode="EVN" classCode= "OBS"> <templateId root="2.16.840.1.860366.10..22.4.2" /> < id nullFlavor="NA" /> <code codeSystem="local" code="EO#" displayName= "EOSINOPHIL #" /> <statusCode code="completed" /> < effectiveTime value="710681713013" /> <value unit="k/cumm" xsi:type="PQ " value="0.1" /> <referenceRange> <observationRange> <text>0.1-0.5</text> </observationRange> </ referenceRange> </observation> </component> <component> <observation moodCode="EVN" classCode="OBS"> <templateId root= "2.16.840.1.488441.10..22.4.2" /> <id nullFlavor="NA" /> < code codeSystem="local" code="EO%" displayName="EOSINOPHIL %" /> <statusCode code="completed" /> <effectiveTime value="806268285295" /> <value unit="%" xsi:type="PQ" value="1" /> < interpretationCode codeSystem="local" code="*" /> <referenceRange> <observationRange> <text>2-4</text> </ observationRange> </referenceRange> </observation> </ component> <component> <observation moodCode="EVN" classCode="OBS"> <templateId root="05.02.840.1.835743.10.2022.4.2" /> <id nullFlavor="NA" /> <code codeSystem="local" code="GR#" displayName= "GRANULOCYTE #" /> <statusCode code="completed" /> < effectiveTime value="" /> <value unit="k/cumm" xsi:type="PQ " value="5.3" /> <referenceRange> <observationRange> <text>2.0-9.0</text> </observationRange> </ referenceRange> </observation> </component> <component> <observation moodCode="EVN" classCode="OBS"> <templateId root= "840.1.753965.104.2" /> <id nullFlavor="NA" /> < code codeSystem="local" code="GR%" displayName="GRANULOCYTE %" /> <statusCode code="completed" /> <effectiveTime value=" " /> <value unit="%" xsi:type="PQ" value="76" /> < interpretationCode codeSystem="local" code="*" /> <referenceRange> <observationRange> <text>50-75</text> </ observationRange> </referenceRange> </observation> </ component> <component> <observation moodCode="EVN" classCode="OBS"> <templateId root="05.02.840.1.285381.10.22.4.2" /> <id nullFlavor="NA" /> <code codeSystem="local" code="LY#" displayName= "LYMPHOCYTE #" /> <statusCode code="completed" /> < effectiveTime value="" /> <value unit="k/cumm" xsi:type="PQ " value="1.0" /> <referenceRange> <observationRange> <text>1.0-4.0</text> </observationRange> </ referenceRange> </observation> </component> <component> <observation moodCode="EVN" classCode="OBS"> <templateId root= "16.840.1.745881.10..4.2" /> <id nullFlavor="NA" /> < code codeSystem="local" code="LY%" displayName="LYMPHOCYTE %" /> <statusCode code="completed" /> <effectiveTime value="112019027817" /> <value unit="%" xsi:type="PQ" value="15" /> < interpretationCode codeSystem="local" code="*" /> <referenceRange> <observationRange> <text>20-30</text> </ observationRange> </referenceRange> </observation> </ component> <component> <observation moodCode="EVN" classCode="OBS"> <templateId root="05.02.840.1.902162.01.03.22.4.2" /> <id nullFlavor="NA" /> <code codeSystem="local" code="MCH" displayName= "MEAN CELL HGB" /> <statusCode code="completed" /> < effectiveTime value="733621546115" /> <value unit="pg" xsi:type="PQ" value="24.9" /> <interpretationCode codeSystem="local" code="*" /> <referenceRange> <observationRange> <text>27.0- 33.0</text> </observationRange> </referenceRange> </ observation> </component> <component> <observation moodCode= "EVN" classCode="OBS"> <templateId root="05.02.840.1.354322.01.03.224.2 " /> <id nullFlavor="NA" /> <code codeSystem="local" code= "MCHC" displayName="MEAN CELL HGB CONCENTRATION" /> <statusCode code= "completed" /> <effectiveTime value="" /> <value unit="g/dl" xsi:type="PQ" value="31.6" /> <interpretationCode codeSystem="local" code="*" /> <referenceRange> < observationRange> <text>32.0-36.0</text> </ observationRange> </referenceRange> </observation> </ component> <component> <observation moodCode="EVN" classCode="OBS"> <templateId root="16.840.1.709956.01.03.224.2" /> <id nullFlavor="NA" /> <code codeSystem="local" code="MCV" displayName= "MEAN CELL VOLUME" /> <statusCode code="completed" /> < effectiveTime value="" /> <value unit="fl" xsi:type="PQ" value="78.7" /> <interpretationCode codeSystem="local" code="*" /> <referenceRange> <observationRange> <text>80.0- 100.0</text> </observationRange> </referenceRange> </ observation> </component> <component> <observation moodCode= "EVN" classCode="OBS"> <templateId root="16.840.1.894384.104.2 " /> <id nullFlavor="NA" /> <code codeSystem="local" code="MO# " displayName="MONOCYTE #" /> <statusCode code="completed" /> <effectiveTime value="" /> <value unit="k/cumm" xsi:type= "PQ" value="0.6" /> <referenceRange> <observationRange> <text>0.1-1.0</text> </observationRange> </ referenceRange> </observation> </component> <component> <observation moodCode="EVN" classCode="OBS"> <templateId root= "16.840.1.692721.10.20.22.4.2" /> <id nullFlavor="NA" /> < code codeSystem="local" code="MO%" displayName="MONOCYTE %" /> <statusCode code="completed" /> <effectiveTime value="276753125253" /> <value unit="%" xsi:type="PQ" value="8" /> < interpretationCode codeSystem="local" code="*" /> <referenceRange> <observationRange> <text>4-6</text> </ observationRange> </referenceRange> </observation> </ component> <component> <observation moodCode="EVN" classCode="OBS"> <templateId root="05.02.840.1.487008..22.4.2" /> <id nullFlavor="NA" /> <code codeSystem="local" code="RBC" displayName=" RED BLOOD CELL" /> <statusCode code="completed" /> < effectiveTime value="740968147570" /> <value unit="m/cumm" xsi:type="PQ " value="4.78" /> <referenceRange> <observationRange> <text>4.00-6.00</text> </observationRange> </ referenceRange> </observation> </component> <component> <observation moodCode="EVN" classCode="OBS"> <templateId root= "16.840.1.734006.10.20.22.4.2" /> <id nullFlavor="NA" /> < code codeSystem="local" code="RDW" displayName="RED CELL DISTRIBUTION WIDTH" /> <statusCode code="completed" /> <effectiveTime value= "113807952290" /> <value unit="%" xsi:type="PQ" value="17.6" /> <interpretationCode codeSystem="local" code="*" /> < referenceRange> <observationRange> <text>11.0-15.6</text > </observationRange> </referenceRange> </observation > </component> <component> <observation moodCode="EVN" classCode="OBS"> <templateId root="216.840.1.430519.10...4.2" /> <id nullFlavor="NA" /> <code codeSystem="local" code="WBC" displayName="WHITE BLOOD CELL" /> <statusCode code="completed" /> <effectiveTime value="" /> <value unit="k/cumm" xsi: type="PQ" value="7.0" /> <referenceRange> <observationRange > <text>5.0-10.0</text> </observationRange> </ referenceRange> </observation> </component> <component> <observation moodCode="EVN" classCode="OBS"> <templateId root= "216.840.1.149894.10..22.4.2" /> <id nullFlavor="NA" /> < code codeSystem="local" code="HGBT" displayName="HEMOGLOBIN" /> < statusCode code="completed" /> <effectiveTime value="603315359317" /> <value unit="gm/dL" xsi:type="PQ" value="11.9" /> < interpretationCode codeSystem="local" code="*" /> <referenceRange> <observationRange> <text>12.0-16.0</text> </ observationRange> </referenceRange> </observation> </ component> <component> <observation moodCode="EVN" classCode="OBS"> <templateId root="05.02.840.1.384452.10..4.2" /> <id nullFlavor="NA" /> <code codeSystem="local" code="HCTT" displayName= "HEMATOCRIT" /> <statusCode code="completed" /> < effectiveTime value="548987791465" /> <value unit="%" xsi:type="PQ " value="37.6" /> <referenceRange> <observationRange> <text>37.0-47.0</text> </observationRange> </ referenceRange> </observation> </component> <component> <observation moodCode="EVN" classCode="OBS"> <templateId root= "05.02.840.1.256641.01.03.22.4.2" /> <id nullFlavor="NA" /> < code codeSystem="local" code="PLT" displayName="PLATELET COUNT" /> < statusCode code="completed" /> <effectiveTime value="335910334448" /> <value unit="k/cumm" xsi:type="PQ" value="303" /> < referenceRange> <observationRange> <text>150-450</text> </observationRange> </referenceRange> </observation > </component> </organizer> </entry> <entry> <organizer moodCode= "EVN" classCode="BATTERY"> <templateId root="05.02.840.1.061192.10...4.1 " /> <id nullFlavor="NA" /> <code codeSystem="local" code="METAB" displayName="METABOLIC PANEL, BASIC" /> <statusCode code="completed" /> <component> <observation moodCode="EVN" classCode="OBS"> < templateId root="840.1.799544.01.03.22.4.2" /> <id nullFlavor="NA " /> <code codeSystem="local" code="K" displayName="POTASSIUM" /> <statusCode code="completed" /> <effectiveTime value="844449531856 " /> <value unit="mmol/L" xsi:type="PQ" value="3.9" /> < referenceRange> <observationRange> <text>3.5-5.3</text> </observationRange> </referenceRange> </observation > </component> <component> <observation moodCode="EVN" classCode="OBS"> <templateId root="05.02.840.1.456426.01.03.22.4.2" /> <id nullFlavor="NA" /> <code codeSystem="local" code="eGFR" displayName="EST GFR (MDRD)" /> <statusCode code="completed" /> <effectiveTime value="975184338134" /> <value unit="mL/min" xsi:type ="PQ" value="> 60" /> <referenceRange> <observationRange > <text>> 59</text> </observationRange> </ referenceRange> </observation> </component> <component> <observation moodCode="EVN" classCode="OBS"> <templateId root= "05.02.840.1.590090.01.03.22.4.2" /> <id nullFlavor="NA" /> < code codeSystem="local" code="GAP" displayName="ANION GAP" /> < statusCode code="completed" /> <effectiveTime value="519286493477" /> <value unit="mmol/L" xsi:type="PQ" value="7" /> < referenceRange> <observationRange> <text>5-15</text> </observationRange> </referenceRange> </observation> </component> <component> <observation moodCode="EVN" classCode= "OBS"> <templateId root="16.840.1.526845.01.03.22.4.2" /> < id nullFlavor="NA" /> <code codeSystem="local" code="eCrCl" displayName ="EST CrCl (CG)" /> <statusCode code="completed" /> < effectiveTime value="" /> <value unit="mL/min" xsi:type="PQ " value="> 60" /> <referenceRange> <observationRange> <text>> 59</text> </observationRange> </ referenceRange> </observation> </component> <component> <observation moodCode="EVN" classCode="OBS"> <templateId root= "05.02.840.1.686251.01.03.22.4.2" /> <id nullFlavor="NA" /> < code codeSystem="local" code="GLU" displayName="GLUCOSE" /> < statusCode code="completed" /> <effectiveTime value="" /> <value unit="mg/dL" xsi:type="PQ" value="83" /> < referenceRange> <observationRange> <text>70-99</text> </observationRange> </referenceRange> </observation> </component> <component> <observation moodCode="EVN" classCode= "OBS"> <templateId root="05.02.840.1.705318...4.2" /> < id nullFlavor="NA" /> <code codeSystem="local" code="CA" displayName= "CALCIUM" /> <statusCode code="completed" /> <effectiveTime value="" /> <value unit="mg/dL" xsi:type="PQ" value="8.7" / > <referenceRange> <observationRange> <text>8.5 -10.1</text> </observationRange> </referenceRange> </ observation> </component> <component> <observation moodCode= "EVN" classCode="OBS"> <templateId root="216.840.1.036461.10..22.4.2 " /> <id nullFlavor="NA" /> <code codeSystem="local" code="BUN " displayName="BLOOD UREA NITROGEN" /> <statusCode code="completed" /> <effectiveTime value="249306622584" /> <value unit="mg/dL" xsi:type="PQ" value="7" /> <referenceRange> < observationRange> <text>7-20</text> </observationRange> </referenceRange> </observation> </component> < component> <observation moodCode="EVN" classCode="OBS"> < templateId root="05.02.840.1.020147.01.03.22.4.2" /> <id nullFlavor="NA " /> <code codeSystem="local" code="CREAT" displayName="CREATININE" /> <statusCode code="completed" /> <effectiveTime value= "860645553545" /> <value unit="mg/dL" xsi:type="PQ" value="0.6" /> <referenceRange> <observationRange> <text>0.6-1.0< /text> </observationRange> </referenceRange> </ observation> </component> <component> <observation moodCode= "EVN" classCode="OBS"> <templateId root="05.02.840.1.289982.01.03.22.4.2 " /> <id nullFlavor="NA" /> <code codeSystem="local" code="NA " displayName="SODIUM" /> <statusCode code="completed" /> < effectiveTime value="202235629620" /> <value unit="mmol/L" xsi:type="PQ " value="138" /> <referenceRange> <observationRange> <text>135-148</text> </observationRange> </ referenceRange> </observation> </component> <component> <observation moodCode="EVN" classCode="OBS"> <templateId root= "216.840.1.295948.10..22.4.2" /> <id nullFlavor="NA" /> < code codeSystem="local" code="CL" displayName="CHLORIDE" /> < statusCode code="completed" /> <effectiveTime value="038813035397" /> <value unit="mmol/L" xsi:type="PQ" value="103" /> < referenceRange> <observationRange> <text>98-110</text> </observationRange> </referenceRange> </observation> </component> <component> <observation moodCode="EVN" classCode ="OBS"> <templateId root="216.840.1.489814.10...4.2" /> < id nullFlavor="NA" /> <code codeSystem="local" code="CO2" displayName= "CARBON DIOXIDE" /> <statusCode code="completed" /> < effectiveTime value="167234314768" /> <value unit="mmol/L" xsi:type="PQ " value="28" /> <referenceRange> <observationRange> <text>21-32</text> </observationRange> </ referenceRange> </observation> </component> </organizer> </entry > <entry> <organizer moodCode="EVN" classCode="BATTERY"> <templateId root="216.840.1.598355.10..22.4.1" /> <id nullFlavor="NA" /> <code codeSystem="local" code="LIVER" displayName="HEPATIC FUNCTION PANEL" /> < statusCode code="completed" /> <component> <observation moodCode= "EVN" classCode="OBS"> <templateId root="05.02.840.1.440278.10..4.2 " /> <id nullFlavor="NA" /> <code codeSystem="local" code= "BILUC" displayName="BILI UNCONJUGATED" /> <statusCode code="completed " /> <effectiveTime value="" /> <value unit="mg/dL " xsi:type="PQ" value="0.2" /> <referenceRange> < observationRange> <text>0.0-0.7</text> </ observationRange> </referenceRange> </observation> </ component> <component> <observation moodCode="EVN" classCode="OBS"> <templateId root="05.02.840.1.386195.01.03.22.4.2" /> <id nullFlavor="NA" /> <code codeSystem="local" code="AST" displayName="AST /SGOT" /> <statusCode code="completed" /> <effectiveTime value ="" /> <value unit="Units/L" xsi:type="PQ" value="31" /> <referenceRange> <observationRange> <text>10-37< /text> </observationRange> </referenceRange> </ observation> </component> <component> <observation moodCode= "EVN" classCode="OBS"> <templateId root="05.02.840.1.440500.01.03.22.4.2 " /> <id nullFlavor="NA" /> <code codeSystem="local" code="ALT " displayName="ALT/SGPT" /> <statusCode code="completed" /> < effectiveTime value="" /> <value unit="Units/L" xsi:type= "PQ" value="29" /> <referenceRange> <observationRange> <text>< 66</text> </observationRange> </ referenceRange> </observation> </component> <component> <observation moodCode="EVN" classCode="OBS"> <templateId root= "05.02.840.1.015264.1022.4.2" /> <id nullFlavor="NA" /> < code codeSystem="local" code="TP" displayName="TOTAL PROTEIN" /> < statusCode code="completed" /> <effectiveTime value="" /> <value unit="gm/dL" xsi:type="PQ" value="6.9" /> < referenceRange> <observationRange> <text>6.4-8.2</text> </observationRange> </referenceRange> </observation > </component> <component> <observation moodCode="EVN" classCode="OBS"> <templateId root="05.02.840.1.678575.01.03.22.4.2" /> <id nullFlavor="NA" /> <code codeSystem="local" code="ALB" displayName="ALBUMIN" /> <statusCode code="completed" /> < effectiveTime value="" /> <value unit="gm/dL" xsi:type="PQ " value="3.6" /> <referenceRange> <observationRange> <text>3.4-5.0</text> </observationRange> </ referenceRange> </observation> </component> <component> <observation moodCode="EVN" classCode="OBS"> <templateId root= "05.02.840.1.027448..22.4.2" /> <id nullFlavor="NA" /> < code codeSystem="local" code="BILTOT" displayName="BILI TOTAL" /> < statusCode code="completed" /> <effectiveTime value="657426336376" /> <value unit="mg/dL" xsi:type="PQ" value="0.2" /> < referenceRange> <observationRange> <text>0.0-1.0</text> </observationRange> </referenceRange> </observation > </component> <component> <observation moodCode="EVN" classCode="OBS"> <templateId root="216.840.1.101847.10..22.4.2" /> <id nullFlavor="NA" /> <code codeSystem="local" code="ALKP" displayName="ALKALINE PHOSPHATASE TOTAL" /> <statusCode code="completed " /> <effectiveTime value="336234136699" /> <value unit="Units /L" xsi:type="PQ" value="100" /> <referenceRange> < observationRange> <text>50-136</text> </observationRange > </referenceRange> </observation> </component> < component> <observation moodCode="EVN" classCode="OBS"> < templateId root="216.840.1.872951.10..22.4.2" /> <id nullFlavor="NA " /> <code codeSystem="local" code="BILC" displayName="BILI CONJUGATED " /> <statusCode code="completed" /> <effectiveTime value= "983106526029" /> <value unit="mg/dL" xsi:type="PQ" value="0.1" /> <referenceRange> <observationRange> <text>0.0-0.3< /text> </observationRange> </referenceRange> </ observation> </component> </organizer> </entry> <entry> <organizer moodCode="EVN" classCode="BATTERY"> <templateId root= "16.840.1.896318.10...4.1" /> <id nullFlavor="NA" /> <code codeSystem="local" code="LIP" displayName="LIPASE" /> <statusCode code= "completed" /> <component> <observation moodCode="EVN" classCode= "OBS"> <templateId root="840.1.369960.01.03.22.4.2" /> < id nullFlavor="NA" /> <code codeSystem="local" code="LIP" displayName= "LIPASE" /> <statusCode code="completed" /> <effectiveTime value="905641624397" /> <value unit="Units/L" xsi:type="PQ" value="124 " /> <referenceRange> <observationRange> <text> 73-393</text> </observationRange> </referenceRange> < /observation> </component> </organizer> </entry> <entry> < organizer moodCode="EVN" classCode="BATTERY"> <templateId root= "840.1.739990.01.03.22.4.1" /> <id nullFlavor="NA" /> <code codeSystem="local" code="HELICOSCR" displayName="AB H.PYLORI SCREEN" /> < statusCode code="completed" /> <component> <observation moodCode= "EVN" classCode="OBS"> <templateId root="05.02.840.1.476030.01.03.22.4.2 " /> <id nullFlavor="NA" /> <code codeSystem="local" code= "HELICOSCR" displayName="AB H.PYLORI SCREEN" /> <statusCode code= "completed" /> <effectiveTime value="534215092608" /> <value unit="" xsi:type="PQ" value="NEGATIVE" /> <referenceRange> < observationRange> <text>NEGATIVE</text> </ observationRange> </referenceRange> </observation> </ component> </organizer> </entry> <entry> <organizer moodCode="EVN" classCode="BATTERY"> <templateId root="840.1.818400.10..22.4.1" /> <id nullFlavor="NA" /> <code codeSystem="local" code="PREGU" displayName="UR TEST" /> <statusCode code="completed" /> < component> <observation moodCode="EVN" classCode="OBS"> < templateId root="840.1.500208...4.2" /> <id nullFlavor="NA " /> <code codeSystem="local" code="PREGU" displayName="UR TEST" /> <statusCode code="completed" /> <effectiveTime value= "994140816807" /> <value unit="" xsi:type="PQ" value="NEGATIVE" /> <referenceRange> <observationRange> <text>NEGATIVE </text> </observationRange> </referenceRange> </ observation> </component> </organizer> </entry> <entry> <organizer moodCode="EVN" classCode="BATTERY"> <templateId root= "840.1.976920.01.03.22.4.1" /> <id nullFlavor="NA" /> <code codeSystem="local" code="UAMICRO" displayName="UA MICROSCOPIC" /> < statusCode code="completed" /> <component> <observation moodCode= "EVN" classCode="OBS"> <templateId root="840.1.821140.10..22.4.2 " /> <id nullFlavor="NA" /> <code codeSystem="local" code= "BACU" displayName="UA BACTERIA" /> <statusCode code="completed" /> <effectiveTime value="637199092935" /> <value unit="" xsi:type= "PQ" value="5+" /> <interpretationCode codeSystem="local" code="*" /> <referenceRange> <observationRange> <text> NEGATIVE</text> </observationRange> </referenceRange> </observation> </component> <component> <observation moodCode ="EVN" classCode="OBS"> <templateId root= "2.16.840.1.449082.10..22.4.2" /> <id nullFlavor="NA" /> < code codeSystem="local" code="EPIU" displayName="UA EPITHELIAL CELLS" /> <statusCode code="completed" /> <effectiveTime value="750630707695" /> <value unit="epi/hpf" xsi:type="PQ" value="1+" /> < referenceRange> <observationRange> <text>0 - 1+</text> </observationRange> </referenceRange> </observation> </component> <component> <observation moodCode="EVN" classCode ="OBS"> <templateId root="216.840.1.794258.10..22.4.2" /> < id nullFlavor="NA" /> <code codeSystem="local" code="RBCU" displayName= "UA RBC" /> <statusCode code="completed" /> <effectiveTime value="983233378825" /> <value unit="rbc/hpf" xsi:type="PQ" value="0-3 " /> <referenceRange> <observationRange> <text> 0 - 3</text> </observationRange> </referenceRange> </ observation> </component> <component> <observation moodCode= "EVN" classCode="OBS"> <templateId root="05.02.840.1.300772.10.22.4.2 " /> <id nullFlavor="NA" /> <code codeSystem="local" code= "UAVOL" displayName="UA VOLUME FOR EXAM" /> <statusCode code="completed " /> <effectiveTime value="848574821105" /> <value unit="mL" xsi:type="PQ" value="12.0" /> <referenceRange> < observationRange> <text>(12mL STD)</text> </ observationRange> </referenceRange> </observation> </ component> <component> <observation moodCode="EVN" classCode="OBS"> <templateId root="840.1.170850.01.03.22.4.2" /> <id nullFlavor="NA" /> <code codeSystem="local" code="WBCU" displayName=" UA WBC" /> <statusCode code="completed" /> <effectiveTime value="144834440194" /> <value unit="wbc/hpf" xsi:type="PQ" value="0-1 " /> <referenceRange> <observationRange> <text> 0 - 5</text> </observationRange> </referenceRange> </ observation> </component> </organizer> </entry> <entry> <organizer moodCode="EVN" classCode="BATTERY"> <templateId root= "05.02.840.1.571929.10.22.4.1" /> <id nullFlavor="NA" /> <code codeSystem="local" code="UC" displayName="URINE CULTURE" /> <statusCode code="completed" /> <component> <observation moodCode="EVN" classCode="OBS"> <templateId root="05.02.840.1.213106.10.22.4.2" /> <id nullFlavor="NA" /> <code codeSystem="local" code="UNC" displayName="Uncategorized" /> <statusCode code="completed" /> <effectiveTime value="213365387871" /> <value xsi:type="ST" value="& lt;pre><b>URINE CULTURE</b> See [...] SNITROFURANTOIN VITEK <=16 STRIMETH/ SULFA VITEK >=[address] [facility] [id number] [place] [address]</pre>" /> <referenceRange> < observationRange> <text /> </observationRange> </referenceRange> </observation> </component> </organizer> </ entry> <entry> <organizer moodCode="EVN" classCode="BATTERY"> < templateId root="[id number]" /> <id nullFlavor="NA" /> <code codeSystem="local" code="PREG" displayName=" TEST, SERUM" / > <statusCode code="completed" /> <component> <observation moodCode="EVN" classCode="OBS"> <templateId root= "2.16.840.1.425680.10..22.4.2" /> <id nullFlavor="NA" /> < code codeSystem="local" code="PREG" displayName=" TEST, SERUM" /> <statusCode code="completed" /> <effectiveTime value="611491630172 " /> <value unit="" xsi:type="PQ" value="NEGATIVE" /> < referenceRange> <observationRange> <text>NEGATIVE</text > </observationRange> </referenceRange> </observation > </component> </organizer> </entry> <entry> <organizer moodCode= "EVN" classCode="BATTERY"> <templateId root="16.840.1.341229.10..22.4.1 " /> <id nullFlavor="NA" /> <code codeSystem="local" code="iCHEM8" displayName="CHEM/HEM PROFILE-BEDSIDE" /> <statusCode code="completed" /> <component> <observation moodCode="EVN" classCode="OBS"> < templateId root="16.840.1.490133.10...4.2" /> <id nullFlavor="NA " /> <code codeSystem="local" code="K" displayName="POTASSIUM" /> <statusCode code="completed" /> <effectiveTime value="[id number] " /> <value unit="mmol/L" xsi:type="PQ" value="3.3" /> < interpretationCode codeSystem="local" code="*" /> <referenceRange> <observationRange> <text>3.5-5.3</text> </ observationRange> </referenceRange> </observation> </ component> <component> <observation moodCode="EVN" classCode="OBS"> <templateId root="05.02.840.1.498531.10..22.4.2" /> <id nullFlavor="NA" /> <code codeSystem="local" code="CMETHOD" displayName= "METHOD" /> <statusCode code="completed" /> <effectiveTime value="" /> <value unit="" xsi:type="PQ" value="Bedside" / > <referenceRange> <observationRange> <text /> </observationRange> </referenceRange> </observation > </component> <component> <observation moodCode="EVN" classCode="OBS"> <templateId root="840.1.284677.01.03.22.4.2" /> <id nullFlavor="NA" /> <code codeSystem="local" code="GAP" displayName="ANION GAP" /> <statusCode code="completed" /> < effectiveTime value="" /> <value unit="mmol/L" xsi:type="PQ " value="18" /> <referenceRange> <observationRange> <text>10-20</text> </observationRange> </ referenceRange> </observation> </component> <component> <observation moodCode="EVN" classCode="OBS"> <templateId root= "840.1.128688.01.03.22.4.2" /> <id nullFlavor="NA" /> < code codeSystem="local" code="HMETHOD" displayName="METHOD" /> < statusCode code="completed" /> <effectiveTime value="" /> <value unit="" xsi:type="PQ" value="Bedside" /> < referenceRange> <observationRange> <text /> < /observationRange> </referenceRange> </observation> </ component> <component> <observation moodCode="EVN" classCode="OBS"> <templateId root="840.1.439638.01.03.22.4.2" /> <id nullFlavor="NA" /> <code codeSystem="local" code="GLU" displayName= "GLUCOSE" /> <statusCode code="completed" /> <effectiveTime value="883229696140" /> <value unit="mg/dL" xsi:type="PQ" value="91" / > <referenceRange> <observationRange> <text>70- 99</text> </observationRange> </referenceRange> </ observation> </component> <component> <observation moodCode= "EVN" classCode="OBS"> <templateId root="216.840.1.057331.10.20.22.4.2 " /> <id nullFlavor="NA" /> <code codeSystem="local" code="BUN " displayName="BLOOD UREA NITROGEN" /> <statusCode code="completed" /> <effectiveTime value="866535079678" /> <value unit="mg/dL" xsi:type="PQ" value="11" /> <referenceRange> < observationRange> <text>7-20</text> </observationRange> </referenceRange> </observation> </component> < component> <observation moodCode="EVN" classCode="OBS"> < templateId root="216.840.1.279757.10.20.22.4.2" /> <id nullFlavor="NA " /> <code codeSystem="local" code="CREAT" displayName="CREATININE" /> <statusCode code="completed" /> <effectiveTime value= "224860907188" /> <value unit="mg/dL" xsi:type="PQ" value="0.7" /> <referenceRange> <observationRange> <text>0.6-1.0< /text> </observationRange> </referenceRange> </ observation> </component> <component> <observation moodCode= "EVN" classCode="OBS"> <templateId root="16.840.1.585158.01.03.22.4.2 " /> <id nullFlavor="NA" /> <code codeSystem="local" code= "HGBT" displayName="HEMOGLOBIN" /> <statusCode code="completed" /> <effectiveTime value="930347146218" /> <value unit="gm/dL" xsi: type="PQ" value="12.6" /> <referenceRange> <observationRange > <text>12.0-16.0</text> </observationRange> </ referenceRange> </observation> </component> <component> <observation moodCode="EVN" classCode="OBS"> <templateId root= "216.840.1.527152.01.03.22.4.2" /> <id nullFlavor="NA" /> < code codeSystem="local" code="HCTT" displayName="HEMATOCRIT" /> < statusCode code="completed" /> <effectiveTime value="266067173098" /> <value unit="%" xsi:type="PQ" value="37.0" /> < referenceRange> <observationRange> <text>37.0-47.0</text > </observationRange> </referenceRange> </observation > </component> <component> <observation moodCode="EVN" classCode="OBS"> <templateId root="16.840.1.802668.01.03.22.4.2" /> <id nullFlavor="NA" /> <code codeSystem="local" code="NA" displayName="SODIUM" /> <statusCode code="completed" /> < effectiveTime value="" /> <value unit="mmol/L" xsi:type="PQ " value="140" /> <referenceRange> <observationRange> <text>135-148</text> </observationRange> </ referenceRange> </observation> </component> <component> <observation moodCode="EVN" classCode="OBS"> <templateId root= "16.840.1.555033.10..22.4.2" /> <id nullFlavor="NA" /> < code codeSystem="local" code="CL" displayName="CHLORIDE" /> < statusCode code="completed" /> <effectiveTime value="" /> <value unit="mmol/L" xsi:type="PQ" value="106" /> < referenceRange> <observationRange> <text>98-110</text> </observationRange> </referenceRange> </observation> </component> <component> <observation moodCode="EVN" classCode ="OBS"> <templateId root="216.840.1.932164.10...4.2" /> < id nullFlavor="NA" /> <code codeSystem="local" code="CO2" displayName= "CARBON DIOXIDE" /> <statusCode code="completed" /> < effectiveTime value="" /> <value unit="mmol/L" xsi:type="PQ " value="20" /> <interpretationCode codeSystem="local" code="*" /> <referenceRange> <observationRange> <text>21-32</ text> </observationRange> </referenceRange> </ observation> </component> <component> <observation moodCode= "EVN" classCode="OBS"> <templateId root="16.840.1.792216.10..22.4.2 " /> <id nullFlavor="NA" /> <code codeSystem="local" code= "CAION" displayName="CALCIUM IONIZED" /> <statusCode code="completed" / > <effectiveTime value="" /> <value unit="mg/dL" xsi:type="PQ" value="4.9" /> <referenceRange> < observationRange> <text>4.5-5.3</text> </ observationRange> </referenceRange> </observation> </ component> </organizer> </entry> <entry> <organizer moodCode="EVN" classCode="BATTERY"> <templateId root="216.840.1.946988.10.20.22.4.1" /> <id nullFlavor="NA" /> <code codeSystem="local" code="UC" displayName= "URINE CULTURE" /> <statusCode code="completed" /> <component> <observation moodCode="EVN" classCode="OBS"> <templateId root= "16.840.1.843665.10.20.22.4.2" /> <id nullFlavor="NA" /> < code codeSystem="local" code="MB" displayName="Microbiology" /> < statusCode code="completed" /> <effectiveTime value="110561982621" /> <value xsi:type="ST" value="<pre><b>URINE CULTURE</b> See BelowURINE CULTURE(F) Kasandra Date/Time: 04/17/2014 : Suzie Date/Time: 04/19/2014 07:19SOURCE: URINESPEC DESC: CLEAN CATCHTREATMENT OF ASYMPTOMATIC BACTERIURIA IS NOT USUALLYCLINICALLY INDICATED.MIXED GRAM POSITIVE?[facility] - [phone] [place] [address]</pre>" /> <referenceRange> <observationRange> <text /> </observationRange> </referenceRange> </observation> </component> </ organizer> </entry> <entry> <organizer moodCode="EVN" classCode="BATTERY"> <templateId root="216.840.1.031219.10.20.22.4.1" /> <id nullFlavor= "NA" /> <code codeSystem="local" code="UA" displayName="URINALYSIS, ROUTINE " /> <statusCode code="completed" /> <component> <observation moodCode="EVN" classCode="OBS"> <templateId root= "216.840.1.640019.10.4.2" /> <id nullFlavor="NA" /> < code codeSystem="local" code="LEUESU" displayName="UA LEUKOCYTE ESTERASE DIPSTICK" /> <statusCode code="completed" /> <effectiveTime value="" /> <value unit="" xsi:type="PQ" value="NEGATIVE" / > <referenceRange> <observationRange> <text> NEGATIVE</text> </observationRange> </referenceRange> </observation> </component> <component> <observation moodCode ="EVN" classCode="OBS"> <templateId root= "05.02.840.1.326584.01.03.224.2" /> <id nullFlavor="NA" /> < code codeSystem="local" code="NITRIU" displayName="UA NITRITE DIPSTICK" /> <statusCode code="completed" /> <effectiveTime value=" " /> <value unit="" xsi:type="PQ" value="POSITIVE" /> < interpretationCode codeSystem="local" code="*" /> <referenceRange> <observationRange> <text>NEGATIVE</text> </ observationRange> </referenceRange> </observation> </ component> <component> <observation moodCode="EVN" classCode="OBS"> <templateId root="16.840.1.701849.01.03.22.4.2" /> <id nullFlavor="NA" /> <code codeSystem="local" code="PROTEIU" displayName= "UA PROTEIN DIPSTICK" /> <statusCode code="completed" /> < effectiveTime value="" /> <value unit="" xsi:type="PQ" value="NEGATIVE" /> <referenceRange> <observationRange> <text>NEGATIVE</text> </observationRange> </ referenceRange> </observation> </component> <component> <observation moodCode="EVN" classCode="OBS"> <templateId root= "16.840.1.852454.10.4.2" /> <id nullFlavor="NA" /> < code codeSystem="local" code="DGLUU" displayName="UA GLUCOSE DIPSTICK" /> <statusCode code="completed" /> <effectiveTime value=" " /> <value unit="" xsi:type="PQ" value="NEGATIVE" /> < referenceRange> <observationRange> <text>NEGATIVE</text > </observationRange> </referenceRange> </observation > </component> <component> <observation moodCode="EVN" classCode="OBS"> <templateId root="05.02.840.1.631829.01.03.22.4.2" /> <id nullFlavor="NA" /> <code codeSystem="local" code="KETONU" displayName="UA KETONE DIPSTICK" /> <statusCode code="completed" /> <effectiveTime value="" /> <value unit="" xsi:type= "PQ" value="NEGATIVE" /> <referenceRange> <observationRange > <text>NEGATIVE</text> </observationRange> </ referenceRange> </observation> </component> <component> <observation moodCode="EVN" classCode="OBS"> <templateId root= "16.840.1.081723.10..4.2" /> <id nullFlavor="NA" /> < code codeSystem="local" code="UROBILU" displayName="UA UROBILINOGEN DIPSTICK" / > <statusCode code="completed" /> <effectiveTime value= "" /> <value unit="" xsi:type="PQ" value="NORMAL" /> <referenceRange> <observationRange> <text>NORMAL</ text> </observationRange> </referenceRange> </ observation> </component> <component> <observation moodCode= "EVN" classCode="OBS"> <templateId root="16.840.1.674741.10..4.2 " /> <id nullFlavor="NA" /> <code codeSystem="local" code= "BILU" displayName="UA BILIRUBIN DIPSTICK" /> <statusCode code= "completed" /> <effectiveTime value="" /> <value unit="" xsi:type="PQ" value="NEGATIVE" /> <referenceRange> < observationRange> <text>NEGATIVE</text> </ observationRange> </referenceRange> </observation> </ component> <component> <observation moodCode="EVN" classCode="OBS"> <templateId root="05.02.840.1.013987.01.03.22.4.2" /> <id nullFlavor="NA" /> <code codeSystem="local" code="CARITO" displayName="UA BLOOD DIPSTICK" /> <statusCode code="completed" /> < effectiveTime value="" /> <value unit="" xsi:type="PQ" value="NEGATIVE" /> <referenceRange> <observationRange> <text>NEGATIVE</text> </observationRange> </ referenceRange> </observation> </component> <component> <observation moodCode="EVN" classCode="OBS"> <templateId root= "05.02.840.1.551022.01.03.22.4.2" /> <id nullFlavor="NA" /> < code codeSystem="local" code="SPGRU" displayName="UA SPECIFIC GRAVITY" /> <statusCode code="completed" /> <effectiveTime value=" " /> <value unit="" xsi:type="PQ" value="1.025" /> < referenceRange> <observationRange> <text>1.015-1.025</ text> </observationRange> </referenceRange> </ observation> </component> <component> <observation moodCode= "EVN" classCode="OBS"> <templateId root="840.1.599254.01.03.22.4.2 " /> <id nullFlavor="NA" /> <code codeSystem="local" code="SUSANA " displayName="UR PH" /> <statusCode code="completed" /> < effectiveTime value="" /> <value unit="" xsi:type="PQ" value="5.5" /> <referenceRange> <observationRange> <text>5.0-7.0</text> </observationRange> </ referenceRange> </observation> </component> </organizer> </entry > <entry> <organizer moodCode="EVN" classCode="BATTERY"> <templateId root="840.1.399172.01.03.22.4.1" /> <id nullFlavor="NA" /> <code codeSystem="local" code="UAMICRO" displayName="UA MICROSCOPIC" /> < statusCode code="completed" /> <component> <observation moodCode= "EVN" classCode="OBS"> <templateId root="05.02.840.1.767049.01.03.22.4.2 " /> <id nullFlavor="NA" /> <code codeSystem="local" code= "BACU" displayName="UA BACTERIA" /> <statusCode code="completed" /> <effectiveTime value="" /> <value unit="" xsi:type= "PQ" value="3+" /> <interpretationCode codeSystem="local" code="*" /> <referenceRange> <observationRange> <text> NEGATIVE</text> </observationRange> </referenceRange> </observation> </component> <component> <observation moodCode ="EVN" classCode="OBS"> <templateId root= "216.840.1.182025.10..22.4.2" /> <id nullFlavor="NA" /> < code codeSystem="local" code="EPIU" displayName="UA EPITHELIAL CELLS" /> <statusCode code="completed" /> <effectiveTime value="" /> <value unit="epi/hpf" xsi:type="PQ" value="4+" /> < interpretationCode codeSystem="local" code="*" /> <referenceRange> <observationRange> <text>0 - 1+</text> </ observationRange> </referenceRange> </observation> </ component> <component> <observation moodCode="EVN" classCode="OBS"> <templateId root="216.840.1.628842.10.20.22.4.2" /> <id nullFlavor="NA" /> <code codeSystem="local" code="MUCUSU" displayName= "UA MUCUS" /> <statusCode code="completed" /> <effectiveTime value="" /> <value unit="" xsi:type="PQ" value="3+" /> <interpretationCode codeSystem="local" code="*" /> < referenceRange> <observationRange> <text>NEG TO 1+</text > </observationRange> </referenceRange> </observation > </component> <component> <observation moodCode="EVN" classCode="OBS"> <templateId root="216.840.1.283514.10..22.4.2" /> <id nullFlavor="NA" /> <code codeSystem="local" code="RBCU" displayName="UA RBC" /> <statusCode code="completed" /> < effectiveTime value="" /> <value unit="rbc/hpf" xsi:type= "PQ" value="0-3" /> <referenceRange> <observationRange> <text>0 - 3</text> </observationRange> </ referenceRange> </observation> </component> <component> <observation moodCode="EVN" classCode="OBS"> <templateId root= "16.840.1.992928.10..4.2" /> <id nullFlavor="NA" /> < code codeSystem="local" code="UAVOL" displayName="UA VOLUME FOR EXAM" /> <statusCode code="completed" /> <effectiveTime value="" /> <value unit="mL" xsi:type="PQ" value="12.0" /> < referenceRange> <observationRange> <text>(12mL STD)</ text> </observationRange> </referenceRange> </ observation> </component> <component> <observation moodCode= "EVN" classCode="OBS"> <templateId root="16.840.1.573064.10..22.4.2 " /> <id nullFlavor="NA" /> <code codeSystem="local" code= "WBCU" displayName="UA WBC" /> <statusCode code="completed" /> <effectiveTime value="" /> <value unit="wbc/hpf" xsi:type ="PQ" value="5-10" /> <interpretationCode codeSystem="local" code="*" / > <referenceRange> <observationRange> <text>0 - 5</text> </observationRange> </referenceRange> </ observation> </component> </organizer> </entry> <entry> <organizer moodCode="EVN" classCode="BATTERY"> <templateId root= "05.02.840.1.385515.10..22.4.1" /> <id nullFlavor="NA" /> <code codeSystem="local" code="PREGU" displayName="UR TEST" /> < statusCode code="completed" /> <component> <observation moodCode= "EVN" classCode="OBS"> <templateId root="05.02.840.1.120660...4.2 " /> <id nullFlavor="NA" /> <code codeSystem="local" code= "PREGU" displayName="UR TEST" /> <statusCode code="completed " /> <effectiveTime value="116293843012" /> <value unit="" xsi :type="PQ" value="NEGATIVE" /> <referenceRange> < observationRange> <text>NEGATIVE</text> </ observationRange> </referenceRange> </observation> </ component> </organizer> </entry> <entry> <organizer moodCode="EVN" classCode="BATTERY"> <templateId root="05.02.840.1.140818.01.03.22.4.1" /> <id nullFlavor="NA" /> <code codeSystem="local" code="PREG" displayName=" TEST, SERUM" /> <statusCode code="completed" /> <component> <observation moodCode="EVN" classCode="OBS"> < templateId root="05.02.840.1.072987.10..22.4.2" /> <id nullFlavor="NA " /> <code codeSystem="local" code="PREG" displayName=" TEST, SERUM" /> <statusCode code="completed" /> <effectiveTime value ="186360250473" /> <value unit="" xsi:type="PQ" value="NEGATIVE" /> <referenceRange> <observationRange> <text> NEGATIVE</text> </observationRange> </referenceRange> </observation> </component> </organizer> </entry> <entry> < organizer moodCode="EVN" classCode="BATTERY"> <templateId root= "2.16.840.1.553329.10.20.22.4.1" /> <id nullFlavor="NA" /> <code codeSystem="local" code="GRAMM" displayName="GRAM STAIN" /> <statusCode code="completed" /> <component> <observation moodCode="EVN" classCode="OBS"> <templateId root="2.16.840.1.259025.10.20.22.4.2" /> <id nullFlavor="NA" /> <code codeSystem="local" code="MB" displayName="Microbiology" /> <statusCode code="completed" /> <effectiveTime value="515864789627" /> <value xsi:type="ST" value="<pre ><b>GRAM STAIN - MISCELLANEOUS CULTURE</b> See Below: COLONY COUNT ONLYGRAM STAIN(F) Kasandra Date/Time: 09/21/2014 17:08 Suzie Date/Time: 09/24/2014 11:13SOURCE: ASPIRATESPEC DESC: DUODENALTNPTEST NOT PERFORMED[address] [id number] BelowMISCELLANEOUS CULTURE(F) Kasandra Date/Time: 09/21/2014 17:08 Suzie Date/Time: 09/24/2014 11:13SOURCE: ASPIRATESPEC DESC: DUODENALCULTURE REPORT>100,000 CFU/ML OF GRAMNEGATIVE RODS[address] [address]</pre>" /> < referenceRange> <observationRange> <text /> < /observationRange> </referenceRange> </observation> </ component> </organizer> </entry> <entry> <organizer moodCode="EVN" classCode="BATTERY"> <templateId root="16.840.1.283051.10..22.4.1" /> <id nullFlavor="NA" /> <code codeSystem="local" code="UA" displayName= "URINALYSIS, ROUTINE" /> <statusCode code="completed" /> <component> <observation moodCode="EVN" classCode="OBS"> <templateId root= "05.02.840.1.341162.10..4.2" /> <id nullFlavor="NA" /> < code codeSystem="local" code="LEUESU" displayName="UA LEUKOCYTE ESTERASE DIPSTICK" /> <statusCode code="completed" /> <effectiveTime value="649775414352" /> <value unit="" xsi:type="PQ" value="NEGATIVE" / > <referenceRange> <observationRange> <text> NEGATIVE</text> </observationRange> </referenceRange> </observation> </component> <component> <observation moodCode ="EVN" classCode="OBS"> <templateId root= "05.02.840.1.569180.01.03.22.4.2" /> <id nullFlavor="NA" /> < code codeSystem="local" code="NITRIU" displayName="UA NITRITE DIPSTICK" /> <statusCode code="completed" /> <effectiveTime value="689337146815 " /> <value unit="" xsi:type="PQ" value="POSITIVE" /> < interpretationCode codeSystem="local" code="*" /> <referenceRange> <observationRange> <text>NEGATIVE</text> </ observationRange> </referenceRange> </observation> </ component> <component> <observation moodCode="EVN" classCode="OBS"> <templateId root="216.840.1.732362.01.03.22.4.2" /> <id nullFlavor="NA" /> <code codeSystem="local" code="PROTEIU" displayName= "UA PROTEIN DIPSTICK" /> <statusCode code="completed" /> < effectiveTime value="" /> <value unit="" xsi:type="PQ" value="NEGATIVE" /> <referenceRange> <observationRange> <text>NEGATIVE</text> </observationRange> </ referenceRange> </observation> </component> <component> <observation moodCode="EVN" classCode="OBS"> <templateId root= "05.02.840.1.302318.01.03.22.4.2" /> <id nullFlavor="NA" /> < code codeSystem="local" code="DGLUU" displayName="UA GLUCOSE DIPSTICK" /> <statusCode code="completed" /> <effectiveTime value=" " /> <value unit="" xsi:type="PQ" value="NEGATIVE" /> < referenceRange> <observationRange> <text>NEGATIVE</text > </observationRange> </referenceRange> </observation > </component> <component> <observation moodCode="EVN" classCode="OBS"> <templateId root="05.02.840.1.944004.10.4.2" /> <id nullFlavor="NA" /> <code codeSystem="local" code="KETONU" displayName="UA KETONE DIPSTICK" /> <statusCode code="completed" /> <effectiveTime value="" /> <value unit="" xsi:type= "PQ" value="NEGATIVE" /> <referenceRange> <observationRange > <text>NEGATIVE</text> </observationRange> </ referenceRange> </observation> </component> <component> <observation moodCode="EVN" classCode="OBS"> <templateId root= "05.02.840.1.507577.10..4.2" /> <id nullFlavor="NA" /> < code codeSystem="local" code="UROBILU" displayName="UA UROBILINOGEN DIPSTICK" / > <statusCode code="completed" /> <effectiveTime value= "878162735188" /> <value unit="" xsi:type="PQ" value="NORMAL" /> <referenceRange> <observationRange> <text>NORMAL</ text> </observationRange> </referenceRange> </ observation> </component> <component> <observation moodCode= "EVN" classCode="OBS"> <templateId root="05.02.840.1.374136.01.03.22.4.2 " /> <id nullFlavor="NA" /> <code codeSystem="local" code= "BILU" displayName="UA BILIRUBIN DIPSTICK" /> <statusCode code= "completed" /> <effectiveTime value="063059822132" /> <value unit="" xsi:type="PQ" value="NEGATIVE" /> <referenceRange> < observationRange> <text>NEGATIVE</text> </ observationRange> </referenceRange> </observation> </ component> <component> <observation moodCode="EVN" classCode="OBS"> <templateId root="05.02.840.1.562411.10.4.2" /> <id nullFlavor="NA" /> <code codeSystem="local" code="CARITO" displayName="UA BLOOD DIPSTICK" /> <statusCode code="completed" /> < effectiveTime value="268358652249" /> <value unit="" xsi:type="PQ" value="1+" /> <interpretationCode codeSystem="local" code="*" /> <referenceRange> <observationRange> <text>NEGATIVE</ text> </observationRange> </referenceRange> </ observation> </component> <component> <observation moodCode= "EVN" classCode="OBS"> <templateId root="16.840.1.910151.10.20.22.4.2 " /> <id nullFlavor="NA" /> <code codeSystem="local" code= "SPGRU" displayName="UA SPECIFIC GRAVITY" /> <statusCode code= "completed" /> <effectiveTime value="303581150940" /> <value unit="" xsi:type="PQ" value=">=1.030" /> <interpretationCode codeSystem="local" code="*" /> <referenceRange> < observationRange> <text>1.015-1.025</text> </ observationRange> </referenceRange> </observation> </ component> <component> <observation moodCode="EVN" classCode="OBS"> <templateId root="05.02.840.1.451489.10.20.22.4.2" /> <id nullFlavor="NA" /> <code codeSystem="local" code="SUSANA" displayName="UR PH" /> <statusCode code="completed" /> <effectiveTime value= "241839735407" /> <value unit="" xsi:type="PQ" value="5.0" /> <referenceRange> <observationRange> <text>5.0-7.0</text > </observationRange> </referenceRange> </observation > </component> <component> <observation moodCode="EVN" classCode="OBS"> <templateId root="2.16.840.1.523163.10.22.4.2" /> <id nullFlavor="NA" /> <code codeSystem="local" code="MB" displayName="Microbiology" /> <statusCode code="completed" /> <effectiveTime value="919364582656" /> <value unit="" xsi:type="PQ" value="" /> <referenceRange> <observationRange> <text /> </observationRange> </referenceRange> </ observation> </component> </organizer> </entry> <entry> <organizer moodCode="EVN" classCode="BATTERY"> <templateId root= "05.02.840.1.057693.10..4.1" /> <id nullFlavor="NA" /> <code codeSystem="local" code="UAMICRO" displayName="UA MICROSCOPIC" /> < statusCode code="completed" /> <component> <observation moodCode= "EVN" classCode="OBS"> <templateId root="05.02.840.1.740363...4.2 " /> <id nullFlavor="NA" /> <code codeSystem="local" code= "BACU" displayName="UA BACTERIA" /> <statusCode code="completed" /> <effectiveTime value="901436984005" /> <value unit="" xsi:type= "PQ" value="3+" /> <interpretationCode codeSystem="local" code="*" /> <referenceRange> <observationRange> <text> NEGATIVE</text> </observationRange> </referenceRange> </observation> </component> <component> <observation moodCode ="EVN" classCode="OBS"> <templateId root= "05.02.840.1.115250...4.2" /> <id nullFlavor="NA" /> < code codeSystem="local" code="EPIU" displayName="UA EPITHELIAL CELLS" /> <statusCode code="completed" /> <effectiveTime value="823908875308" /> <value unit="epi/hpf" xsi:type="PQ" value="2+" /> < interpretationCode codeSystem="local" code="*" /> <referenceRange> <observationRange> <text>0 - 1+</text> </ observationRange> </referenceRange> </observation> </ component> <component> <observation moodCode="EVN" classCode="OBS"> <templateId root="2.16.840.1.315959.10...4.2" /> <id nullFlavor="NA" /> <code codeSystem="local" code="MUCUSU" displayName= "UA MUCUS" /> <statusCode code="completed" /> <effectiveTime value="" /> <value unit="" xsi:type="PQ" value="1+" /> <referenceRange> <observationRange> <text>NEG TO 1 +</text> </observationRange> </referenceRange> </ observation> </component> <component> <observation moodCode= "EVN" classCode="OBS"> <templateId root="2.16.840.1.251834.10..4.2 " /> <id nullFlavor="NA" /> <code codeSystem="local" code= "RBCU" displayName="UA RBC" /> <statusCode code="completed" /> <effectiveTime value="689521854862" /> <value unit="rbc/hpf" xsi:type ="PQ" value="0-3" /> <referenceRange> <observationRange> <text>0 - 3</text> </observationRange> </ referenceRange> </observation> </component> <component> <observation moodCode="EVN" classCode="OBS"> <templateId root= "840.1.583401.10.22.4.2" /> <id nullFlavor="NA" /> < code codeSystem="local" code="UAVOL" displayName="UA VOLUME FOR EXAM" /> <statusCode code="completed" /> <effectiveTime value="194865617715" /> <value unit="mL" xsi:type="PQ" value="12.0" /> < referenceRange> <observationRange> <text>(12mL STD)</ text> </observationRange> </referenceRange> </ observation> </component> <component> <observation moodCode= "EVN" classCode="OBS"> <templateId root="840.1.782559.01.03.22.4.2 " /> <id nullFlavor="NA" /> <code codeSystem="local" code= "WBCU" displayName="UA WBC" /> <statusCode code="completed" /> <effectiveTime value="091790432476" /> <value unit="wbc/hpf" xsi:type ="PQ" value="2-5" /> <referenceRange> <observationRange> <text>0 - 5</text> </observationRange> </ referenceRange> </observation> </component> </organizer> </entry > <entry> <organizer moodCode="EVN" classCode="BATTERY"> <templateId root="05.02.840.1.032536.22.4.1" /> <id nullFlavor="NA" /> <code codeSystem="local" code="CBCD" displayName="CBC W/DIFF" /> <statusCode code ="completed" /> <component> <observation moodCode="EVN" classCode= "OBS"> <templateId root="840.1.369186.01.03.224.2" /> < id nullFlavor="NA" /> <code codeSystem="local" code="EO#" displayName= "EOSINOPHIL #" /> <statusCode code="completed" /> < effectiveTime value="587200571270" /> <value unit="k/cumm" xsi:type="PQ " value="0.1" /> <referenceRange> <observationRange> <text>0.1-0.5</text> </observationRange> </ referenceRange> </observation> </component> <component> <observation moodCode="EVN" classCode="OBS"> <templateId root= "216.840.1.971722.01.03.224.2" /> <id nullFlavor="NA" /> < code codeSystem="local" code="EO%" displayName="EOSINOPHIL %" /> <statusCode code="completed" /> <effectiveTime value="911261343323" /> <value unit="%" xsi:type="PQ" value="1" /> < interpretationCode codeSystem="local" code="*" /> <referenceRange> <observationRange> <text>2-4</text> </ observationRange> </referenceRange> </observation> </ component> <component> <observation moodCode="EVN" classCode="OBS"> <templateId root="16.840.1.559506.01.03.224.2" /> <id nullFlavor="NA" /> <code codeSystem="local" code="GR#" displayName= "GRANULOCYTE #" /> <statusCode code="completed" /> < effectiveTime value="698506741062" /> <value unit="k/cumm" xsi:type="PQ " value="3.9" /> <referenceRange> <observationRange> <text>2.0-9.0</text> </observationRange> </ referenceRange> </observation> </component> <component> <observation moodCode="EVN" classCode="OBS"> <templateId root= "216.840.1.879517.102022.4.2" /> <id nullFlavor="NA" /> < code codeSystem="local" code="GR%" displayName="GRANULOCYTE %" /> <statusCode code="completed" /> <effectiveTime value="754710365436 " /> <value unit="%" xsi:type="PQ" value="67" /> < referenceRange> <observationRange> <text>50-75</text> </observationRange> </referenceRange> </observation> </component> <component> <observation moodCode="EVN" classCode= "OBS"> <templateId root="216.840.1.542027.01.03.22.4.2" /> < id nullFlavor="NA" /> <code codeSystem="local" code="LY#" displayName= "LYMPHOCYTE #" /> <statusCode code="completed" /> < effectiveTime value="994303348571" /> <value unit="k/cumm" xsi:type="PQ " value="1.2" /> <referenceRange> <observationRange> <text>1.0-4.0</text> </observationRange> </ referenceRange> </observation> </component> <component> <observation moodCode="EVN" classCode="OBS"> <templateId root= "216.840.1.768506.22.4.2" /> <id nullFlavor="NA" /> < code codeSystem="local" code="LY%" displayName="LYMPHOCYTE %" /> <statusCode code="completed" /> <effectiveTime value="761216409950" /> <value unit="%" xsi:type="PQ" value="20" /> < referenceRange> <observationRange> <text>20-30</text> </observationRange> </referenceRange> </observation> </component> <component> <observation moodCode="EVN" classCode= "OBS"> <templateId root="216.840.1.015756.10..22.4.2" /> < id nullFlavor="NA" /> <code codeSystem="local" code="MCH" displayName= "MEAN CELL HGB" /> <statusCode code="completed" /> < effectiveTime value="335436776500" /> <value unit="pg" xsi:type="PQ" value="29.5" /> <referenceRange> <observationRange> <text>27.0-33.0</text> </observationRange> </ referenceRange> </observation> </component> <component> <observation moodCode="EVN" classCode="OBS"> <templateId root= "05.02.840.1.532227.10...4.2" /> <id nullFlavor="NA" /> < code codeSystem="local" code="MCHC" displayName="MEAN CELL HGB CONCENTRATION" / > <statusCode code="completed" /> <effectiveTime value= "676010889782" /> <value unit="g/dL" xsi:type="PQ" value="33.6" /> <referenceRange> <observationRange> <text>32.0- 37.0</text> </observationRange> </referenceRange> </ observation> </component> <component> <observation moodCode= "EVN" classCode="OBS"> <templateId root="05.02.840.1.093705.10.20.22.4.2 " /> <id nullFlavor="NA" /> <code codeSystem="local" code="MCV " displayName="MEAN CELL VOLUME" /> <statusCode code="completed" /> <effectiveTime value="115445435860" /> <value unit="fl" xsi:type ="PQ" value="87.8" /> <referenceRange> <observationRange> <text>80.0-100.0</text> </observationRange> </ referenceRange> </observation> </component> <component> <observation moodCode="EVN" classCode="OBS"> <templateId root= "216.840.1.090740.10..22.4.2" /> <id nullFlavor="NA" /> < code codeSystem="local" code="MO#" displayName="MONOCYTE #" /> < statusCode code="completed" /> <effectiveTime value="886541889619" /> <value unit="k/cumm" xsi:type="PQ" value="0.7" /> < referenceRange> <observationRange> <text>0.1-1.0</text> </observationRange> </referenceRange> </observation > </component> <component> <observation moodCode="EVN" classCode="OBS"> <templateId root="2.16.840.1.028453.10.20.22.4.2" /> <id nullFlavor="NA" /> <code codeSystem="local" code="MO% " displayName="MONOCYTE %" /> <statusCode code="completed" /> <effectiveTime value="984600506550" /> <value unit="%" xsi: type="PQ" value="11" /> <interpretationCode codeSystem="local" code="* " /> <referenceRange> <observationRange> <text> 4-6</text> </observationRange> </referenceRange> </ observation> </component> <component> <observation moodCode= "EVN" classCode="OBS"> <templateId root="216.840.1.046174.10..4.2 " /> <id nullFlavor="NA" /> <code codeSystem="local" code="RBC " displayName="RED BLOOD CELL" /> <statusCode code="completed" /> <effectiveTime value="182792209607" /> <value unit="m/cumm" xsi: type="PQ" value="4.92" /> <referenceRange> <observationRange > <text>4.00-6.00</text> </observationRange> </ referenceRange> </observation> </component> <component> <observation moodCode="EVN" classCode="OBS"> <templateId root= "216.840.1.772471...4.2" /> <id nullFlavor="NA" /> < code codeSystem="local" code="RDW" displayName="RED CELL DISTRIBUTION WIDTH" /> <statusCode code="completed" /> <effectiveTime value= "876937219622" /> <value unit="%" xsi:type="PQ" value="14.0" /> <referenceRange> <observationRange> <text>11.0- 15.6</text> </observationRange> </referenceRange> </ observation> </component> <component> <observation moodCode= "EVN" classCode="OBS"> <templateId root="16.840.1.807890.10..22.4.2 " /> <id nullFlavor="NA" /> <code codeSystem="local" code="WBC " displayName="WHITE BLOOD CELL" /> <statusCode code="completed" /> <effectiveTime value="290253985745" /> <value unit="k/cumm" xsi: type="PQ" value="5.8" /> <referenceRange> <observationRange > <text>5.0-10.0</text> </observationRange> </ referenceRange> </observation> </component> <component> <observation moodCode="EVN" classCode="OBS"> <templateId root= "05.02.840.1.587287.10.20.22.4.2" /> <id nullFlavor="NA" /> < code codeSystem="local" code="HGBT" displayName="HEMOGLOBIN" /> < statusCode code="completed" /> <effectiveTime value="211745999466" /> <value unit="gm/dL" xsi:type="PQ" value="14.5" /> < referenceRange> <observationRange> <text>12.0-16.0</text > </observationRange> </referenceRange> </observation > </component> <component> <observation moodCode="EVN" classCode="OBS"> <templateId root="840.1.008358.10.20.22.4.2" /> <id nullFlavor="NA" /> <code codeSystem="local" code="HCTT" displayName="HEMATOCRIT" /> <statusCode code="completed" /> < effectiveTime value="190595030132" /> <value unit="%" xsi:type="PQ " value="43.2" /> <referenceRange> <observationRange> <text>37.0-47.0</text> </observationRange> </ referenceRange> </observation> </component> <component> <observation moodCode="EVN" classCode="OBS"> <templateId root= "05.02.840.1.993663.10.20.22.4.2" /> <id nullFlavor="NA" /> < code codeSystem="local" code="PLT" displayName="PLATELET COUNT" /> < statusCode code="completed" /> <effectiveTime value="068101842525" /> <value unit="k/cumm" xsi:type="PQ" value="220" /> < referenceRange> <observationRange> <text>150-400</text> </observationRange> </referenceRange> </observation > </component> <component> <observation moodCode="EVN" classCode="OBS"> <templateId root="05.02.840.1.843058.01.03.22.4.2" /> <id nullFlavor="NA" /> <code codeSystem="local" code="MB" displayName="Microbiology" /> <statusCode code="completed" /> <effectiveTime value="930022411066" /> <value unit="" xsi:type="PQ" value="" /> <referenceRange> <observationRange> <text /> </observationRange> </referenceRange> </ observation> </component> </organizer> </entry> <entry> <organizer moodCode="EVN" classCode="BATTERY"> <templateId root= "840.1.774176.01.03.22.4.1" /> <id nullFlavor="NA" /> <code codeSystem="local" code="LIVER" displayName="HEPATIC FUNCTION PANEL" /> < statusCode code="completed" /> <component> <observation moodCode= "EVN" classCode="OBS"> <templateId root="05.02.840.1.346489.22.4.2 " /> <id nullFlavor="NA" /> <code codeSystem="local" code= "BILUC" displayName="BILI UNCONJUGATED" /> <statusCode code="completed " /> <effectiveTime value="288671200453" /> <value unit="mg/dL " xsi:type="PQ" value="2.2" /> <interpretationCode codeSystem="local" code="*" /> <referenceRange> <observationRange> <text>0.0-0.7</text> </observationRange> </referenceRange > </observation> </component> <component> <observation moodCode="EVN" classCode="OBS"> <templateId root= "16.840.1.000437.10..4.2" /> <id nullFlavor="NA" /> < code codeSystem="local" code="AST" displayName="AST/SGOT" /> < statusCode code="completed" /> <effectiveTime value="092537659460" /> <value unit="Units/L" xsi:type="PQ" value="93" /> < interpretationCode codeSystem="local" code="*" /> <referenceRange> <observationRange> <text>10-37</text> </ observationRange> </referenceRange> </observation> </ component> <component> <observation moodCode="EVN" classCode="OBS"> <templateId root="05.02.840.1.704018.01.03.22.4.2" /> <id nullFlavor="NA" /> <code codeSystem="local" code="ALT" displayName="ALT /SGPT" /> <statusCode code="completed" /> <effectiveTime value ="198825651836" /> <value unit="Units/L" xsi:type="PQ" value="47" /> <referenceRange> <observationRange> <text>< 66</text> </observationRange> </referenceRange> </ observation> </component> <component> <observation moodCode= "EVN" classCode="OBS"> <templateId root="05.02.840.1.093141..22.4.2 " /> <id nullFlavor="NA" /> <code codeSystem="local" code="TP " displayName="TOTAL PROTEIN" /> <statusCode code="completed" /> <effectiveTime value="068878114873" /> <value unit="gm/dL" xsi:type ="PQ" value="6.5" /> <referenceRange> <observationRange> <text>6.4-8.2</text> </observationRange> </ referenceRange> </observation> </component> <component> <observation moodCode="EVN" classCode="OBS"> <templateId root= "16.840.1.927246.10..22.4.2" /> <id nullFlavor="NA" /> < code codeSystem="local" code="ALB" displayName="ALBUMIN" /> < statusCode code="completed" /> <effectiveTime value="548282827406" /> <value unit="gm/dL" xsi:type="PQ" value="3.6" /> < referenceRange> <observationRange> <text>3.4-5.0</text> </observationRange> </referenceRange> </observation > </component> <component> <observation moodCode="EVN" classCode="OBS"> <templateId root="16.840.1.388384.10.20.22.4.2" /> <id nullFlavor="NA" /> <code codeSystem="local" code="BILTOT" displayName="BILI TOTAL" /> <statusCode code="completed" /> < effectiveTime value="808976074994" /> <value unit="mg/dL" xsi:type="PQ " value="2.6" /> <interpretationCode codeSystem="local" code="*" /> <referenceRange> <observationRange> <text>0.0-1.0 </text> </observationRange> </referenceRange> </ observation> </component> <component> <observation moodCode= "EVN" classCode="OBS"> <templateId root="05.02.840.1.917997.10.20.22.4.2 " /> <id nullFlavor="NA" /> <code codeSystem="local" code= "ALKP" displayName="ALKALINE PHOSPHATASE TOTAL" /> <statusCode code= "completed" /> <effectiveTime value="500438474654" /> <value unit="IU/L" xsi:type="PQ" value="113" /> <referenceRange> < observationRange> <text>45-117</text> </observationRange > </referenceRange> </observation> </component> < component> <observation moodCode="EVN" classCode="OBS"> < templateId root="05.02.840.1.817731.10..4.2" /> <id nullFlavor="NA " /> <code codeSystem="local" code="BILC" displayName="BILI CONJUGATED " /> <statusCode code="completed" /> <effectiveTime value= "123546403571" /> <value unit="mg/dL" xsi:type="PQ" value="0.4" /> <interpretationCode codeSystem="local" code="*" /> < referenceRange> <observationRange> <text>0.0-0.3</text> </observationRange> </referenceRange> </observation > </component> <component> <observation moodCode="EVN" classCode="OBS"> <templateId root="05.02.840.1.500278.10.20.22.4.2" /> <id nullFlavor="NA" /> <code codeSystem="local" code="MB" displayName="Microbiology" /> <statusCode code="completed" /> <effectiveTime value="447093662246" /> <value unit="" xsi:type="PQ" value="" /> <referenceRange> <observationRange> <text /> </observationRange> </referenceRange> </ observation> </component> </organizer> </entry> <entry> <organizer moodCode="EVN" classCode="BATTERY"> <templateId root= "05.02.840.1.822749.10...4.1" /> <id nullFlavor="NA" /> <code codeSystem="local" code="LIP" displayName="LIPASE" /> <statusCode code= "completed" /> <component> <observation moodCode="EVN" classCode= "OBS"> <templateId root="840.1.355783.01.03.22.4.2" /> < id nullFlavor="NA" /> <code codeSystem="local" code="LIP" displayName= "LIPASE" /> <statusCode code="completed" /> <effectiveTime value="448789199417" /> <value unit="Units/L" xsi:type="PQ" value="119 " /> <referenceRange> <observationRange> <text> 73-393</text> </observationRange> </referenceRange> < /observation> </component> </organizer> </entry> <entry> < organizer moodCode="EVN" classCode="BATTERY"> <templateId root= "05.02.840.1.409389.01.03.22.4.1" /> <id nullFlavor="NA" /> <code codeSystem="local" code="PREGU" displayName="UR TEST" /> < statusCode code="completed" /> <component> <observation moodCode= "EVN" classCode="OBS"> <templateId root="05.02.840.1.433611.10.4.2 " /> <id nullFlavor="NA" /> <code codeSystem="local" code= "PREGU" displayName="UR TEST" /> <statusCode code="completed " /> <effectiveTime value="532723129098" /> <value unit="" xsi :type="PQ" value="NEGATIVE" /> <referenceRange> < observationRange> <text>NEGATIVE</text> </ observationRange> </referenceRange> </observation> </ component> <component> <observation moodCode="EVN" classCode="OBS"> <templateId root="05.02.840.1.025275.01.03.22.4.2" /> <id nullFlavor="NA" /> <code codeSystem="local" code="MB" displayName= "Microbiology" /> <statusCode code="completed" /> < effectiveTime value="019506767894" /> <value unit="" xsi:type="PQ" value="" /> <referenceRange> <observationRange> <text /> </observationRange> </referenceRange> </ observation> </component> </organizer> </entry> <entry> <organizer moodCode="EVN" classCode="BATTERY"> <templateId root= "05.02.840.1.377407.01.03.22.4.1" /> <id nullFlavor="NA" /> <code codeSystem="local" code="iCHEM8" displayName="CHEM/HEM PROFILE-BEDSIDE" /> <statusCode code="completed" /> <component> <observation moodCode= "EVN" classCode="OBS"> <templateId root="05.02.840.1.603564.01.03.22.4.2 " /> <id nullFlavor="NA" /> <code codeSystem="local" code="K" displayName="POTASSIUM" /> <statusCode code="completed" /> < effectiveTime value="740341834190" /> <value unit="mmol/L" xsi:type="PQ " value="3.9" /> <referenceRange> <observationRange> <text>3.5-5.3</text> </observationRange> </ referenceRange> </observation> </component> <component> <observation moodCode="EVN" classCode="OBS"> <templateId root= "16.840.1.348317.10.22.4.2" /> <id nullFlavor="NA" /> < code codeSystem="local" code="CMETHOD" displayName="METHOD" /> < statusCode code="completed" /> <effectiveTime value="553901651824" /> <value unit="" xsi:type="PQ" value="Bedside" /> < referenceRange> <observationRange> <text /> < /observationRange> </referenceRange> </observation> </ component> <component> <observation moodCode="EVN" classCode="OBS"> <templateId root="05.02.840.1.969603.10.4.2" /> <id nullFlavor="NA" /> <code codeSystem="local" code="GAP" displayName= "ANION GAP" /> <statusCode code="completed" /> <effectiveTime value="622467421476" /> <value unit="mmol/L" xsi:type="PQ" value="18" / > <referenceRange> <observationRange> <text>10- 20</text> </observationRange> </referenceRange> </ observation> </component> <component> <observation moodCode= "EVN" classCode="OBS"> <templateId root="05.02.840.1.125519.102022.4.2 " /> <id nullFlavor="NA" /> <code codeSystem="local" code= "HMETHOD" displayName="METHOD" /> <statusCode code="completed" /> <effectiveTime value="360622058462" /> <value unit="" xsi:type="PQ " value="Bedside" /> <referenceRange> <observationRange> <text /> </observationRange> </referenceRange> </observation> </component> <component> <observation moodCode="EVN" classCode="OBS"> <templateId root= "216.840.1.186649.10..22.4.2" /> <id nullFlavor="NA" /> < code codeSystem="local" code="GLU" displayName="GLUCOSE" /> < statusCode code="completed" /> <effectiveTime value="586924289199" /> <value unit="mg/dL" xsi:type="PQ" value="101" /> < interpretationCode codeSystem="local" code="*" /> <referenceRange> <observationRange> <text>70-99</text> </ observationRange> </referenceRange> </observation> </ component> <component> <observation moodCode="EVN" classCode="OBS"> <templateId root="05.02.840.1.055864.01.03.22.4.2" /> <id nullFlavor="NA" /> <code codeSystem="local" code="BUN" displayName= "BLOOD UREA NITROGEN" /> <statusCode code="completed" /> < effectiveTime value="982227866703" /> <value unit="mg/dL" xsi:type="PQ " value="6" /> <interpretationCode codeSystem="local" code="*" /> <referenceRange> <observationRange> <text>7-20</ text> </observationRange> </referenceRange> </ observation> </component> <component> <observation moodCode= "EVN" classCode="OBS"> <templateId root="216.840.1.468712..22.4.2 " /> <id nullFlavor="NA" /> <code codeSystem="local" code= "CREAT" displayName="CREATININE" /> <statusCode code="completed" /> <effectiveTime value="859353815812" /> <value unit="mg/dL" xsi: type="PQ" value="0.6" /> <referenceRange> <observationRange > <text>0.6-1.0</text> </observationRange> </ referenceRange> </observation> </component> <component> <observation moodCode="EVN" classCode="OBS"> <templateId root= "2.16.840.1.309712.10..22.4.2" /> <id nullFlavor="NA" /> < code codeSystem="local" code="HGBT" displayName="HEMOGLOBIN" /> < statusCode code="completed" /> <effectiveTime value="" /> <value unit="gm/dL" xsi:type="PQ" value="15.0" /> < referenceRange> <observationRange> <text>12.0-16.0</text > </observationRange> </referenceRange> </observation > </component> <component> <observation moodCode="EVN" classCode="OBS"> <templateId root="2.16.840.1.276045.10..22.4.2" /> <id nullFlavor="NA" /> <code codeSystem="local" code="HCTT" displayName="HEMATOCRIT" /> <statusCode code="completed" /> < effectiveTime value="957496839608" /> <value unit="%" xsi:type="PQ " value="44.0" /> <referenceRange> <observationRange> <text>37.0-47.0</text> </observationRange> </ referenceRange> </observation> </component> <component> <observation moodCode="EVN" classCode="OBS"> <templateId root= "216.840.1.059267.10..22.4.2" /> <id nullFlavor="NA" /> < code codeSystem="local" code="NA" displayName="SODIUM" /> <statusCode code="completed" /> <effectiveTime value="683155634103" /> < value unit="mmol/L" xsi:type="PQ" value="139" /> <referenceRange> <observationRange> <text>135-148</text> </ observationRange> </referenceRange> </observation> </ component> <component> <observation moodCode="EVN" classCode="OBS"> <templateId root="16.840.1.075130.10...4.2" /> <id nullFlavor="NA" /> <code codeSystem="local" code="CL" displayName= "CHLORIDE" /> <statusCode code="completed" /> <effectiveTime value="" /> <value unit="mmol/L" xsi:type="PQ" value="106" /> <referenceRange> <observationRange> <text>98 -110</text> </observationRange> </referenceRange> </ observation> </component> <component> <observation moodCode= "EVN" classCode="OBS"> <templateId root="05.02.840.1.934382.10..22.4.2 " /> <id nullFlavor="NA" /> <code codeSystem="local" code="CO2 " displayName="CARBON DIOXIDE" /> <statusCode code="completed" /> <effectiveTime value="" /> <value unit="mmol/L" xsi: type="PQ" value="20" /> <interpretationCode codeSystem="local" code="* " /> <referenceRange> <observationRange> <text> 21-32</text> </observationRange> </referenceRange> </ observation> </component> <component> <observation moodCode= "EVN" classCode="OBS"> <templateId root="216.840.1.576462.10..22.4.2 " /> <id nullFlavor="NA" /> <code codeSystem="local" code= "ELI" displayName="CALCIUM IONIZED" /> <statusCode code="completed" / > <effectiveTime value="855042431530" /> <value unit="mg/dL" xsi:type="PQ" value="4.5" /> <referenceRange> < observationRange> <text>4.5-5.3</text> </ observationRange> </referenceRange> </observation> </ component> <component> <observation moodCode="EVN" classCode="OBS"> <templateId root="05.02.840.1.708513.10.4.2" /> <id nullFlavor="NA" /> <code codeSystem="local" code="MB" displayName= "Microbiology" /> <statusCode code="completed" /> < effectiveTime value="599394736210" /> <value unit="" xsi:type="PQ" value="" /> <referenceRange> <observationRange> <text /> </observationRange> </referenceRange> </ observation> </component> </organizer> </entry> <entry> <organizer moodCode="EVN" classCode="BATTERY"> <templateId root= "216.840.1.275851.10..22.4.1" /> <id nullFlavor="NA" /> <code codeSystem="local" code="iTROPI" displayName="TROPONIN I BEDSIDE" /> < statusCode code="completed" /> <component> <observation moodCode= "EVN" classCode="OBS"> <templateId root="2.16.840.1.338970.10..22.4.2 " /> <id nullFlavor="NA" /> <code codeSystem="local" code= "CMETHOD" displayName="METHOD" /> <statusCode code="completed" /> <effectiveTime value="455107035883" /> <value xsi:type="ST" value= "<pre><b>TROPONIN I BEDSIDE</b> Bedside< 0.04</pre>" /> <referenceRange> <observationRange> <text / > </observationRange> </referenceRange> </observation > </component> <component> <observation moodCode="EVN" classCode="OBS"> <templateId root="2.16.840.1.326095.01.03.22.4.2" /> <id nullFlavor="NA" /> <code codeSystem="local" code="TROPI" displayName="TROPONIN I" /> <statusCode code="completed" /> < effectiveTime value="415084086171" /> <value xsi:type="ST" value="< pre><b>TROPONIN I BEDSIDE</b> Bedside< 0.04</pre>" /> <referenceRange> <observationRange> <text>< 0.11</text> </observationRange> </referenceRange> </ observation> </component> <component> <observation moodCode= "EVN" classCode="OBS"> <templateId root="2.16.840.1.346234.10..22.4.2 " /> <id nullFlavor="NA" /> <code codeSystem="local" code="MB " displayName="Microbiology" /> <statusCode code="completed" /> <effectiveTime value="906363637593" /> <value xsi:type="ST" value="& lt;pre><b>TROPONIN I BEDSIDE</b> Bedside< 0.04</pre>" / > <referenceRange> <observationRange> <text /> </observationRange> </referenceRange> </observation > </component> </organizer> </entry> <entry> <organizer moodCode= "EVN" classCode="BATTERY"> <templateId root="216.840.1.595357.10.20.22.4.1 " /> <id nullFlavor="NA" /> <code codeSystem="local" code="CBCD" displayName="CBC W/DIFF" /> <statusCode code="completed" /> <component > <observation moodCode="EVN" classCode="OBS"> <templateId root= "16.840.1.263645.10.20.22.4.2" /> <id nullFlavor="NA" /> < code codeSystem="local" code="GR#" displayName="GRANULOCYTE #" /> < statusCode code="completed" /> <effectiveTime value="101993807319" /> <value xsi:type="ST" value="<pre><b>CBC W/DIFF</b> 11.34.4913.439.387.529.834.114.9122332467.01.40.9</pre>" /> < referenceRange> <observationRange> <text>2.0-9.0</text> </observationRange> </referenceRange> </observation > </component> <component> <observation moodCode="EVN" classCode="OBS"> <templateId root="16.840.1.560250.10.20.22.4.2" /> <id nullFlavor="NA" /> <code codeSystem="local" code="GR% " displayName="GRANULOCYTE %" /> <statusCode code="completed" /> <effectiveTime value="330671441650" /> <value xsi:type="ST" value="<pre><b>CBC W/DIFF</b> .439.387.529.834.114.4234122391.40.9< /pre>" /> <interpretationCode codeSystem="local" code="*" /> < referenceRange> <observationRange> <text>50-75</text> </observationRange> </referenceRange> </observation> </component> <component> <observation moodCode="EVN" classCode= "OBS"> <templateId root="2.16.840.1.308400.10.2022.4.2" /> < id nullFlavor="NA" /> <code codeSystem="local" code="LY#" displayName= "LYMPHOCYTE #" /> <statusCode code="completed" /> < effectiveTime value="781937689314" /> <value xsi:type="ST" value="<pre> <b>CBC W/DIFF</b> .439.387.529.834.114.2544627722.40.9</pre>" /> <referenceRange> <observationRange> <text>1.0- 4.0</text> </observationRange> </referenceRange> </ observation> </component> <component> <observation moodCode= "EVN" classCode="OBS"> <templateId root="216.840.1.615037.10.2022.4.2 " /> <id nullFlavor="NA" /> <code codeSystem="local" code="LY& #37;" displayName="LYMPHOCYTE %" /> <statusCode code="completed" / > <effectiveTime value="545628065958" /> <value xsi:type="ST" value="<pre><b>CBC W/DIFF</b> .43.387.529.834.114.4964683133.40.9< /pre>" /> <interpretationCode codeSystem="local" code="*" /> < referenceRange> <observationRange> <text>20-30</text> </observationRange> </referenceRange> </observation> </component> <component> <observation moodCode="EVN" classCode= "OBS"> <templateId root="2.16.840.1.900362.10..22.4.2" /> < id nullFlavor="NA" /> <code codeSystem="local" code="MCH" displayName= "MEAN CELL HGB" /> <statusCode code="completed" /> < effectiveTime value="019788437081" /> <value xsi:type="ST" value="<pre> <b>CBC W/DIFF</b> .439.387.529.834.114.1701326254.40.9</pre>" /> <referenceRange> <observationRange> <text>27.0- 33.0</text> </observationRange> </referenceRange> </ observation> </component> <component> <observation moodCode= "EVN" classCode="OBS"> <templateId root="2.16.840.1.304503.10..22.4.2 " /> <id nullFlavor="NA" /> <code codeSystem="local" code= "MCHC" displayName="MEAN CELL HGB CONCENTRATION" /> <statusCode code= "completed" /> <effectiveTime value="631701327873" /> <value xsi:type="ST" value="<pre><b>CBC W/DIFF</b> .439.387.529.834.114.1741182682.40.9</pre>" /> < referenceRange> <observationRange> <text>32.0-37.0</text > </observationRange> </referenceRange> </observation > </component> <component> <observation moodCode="EVN" classCode="OBS"> <templateId root="2.16.840.1.848152.10.20.22.4.2" /> <id nullFlavor="NA" /> <code codeSystem="local" code="MCV" displayName="MEAN CELL VOLUME" /> <statusCode code="completed" /> <effectiveTime value="643681576383" /> <value xsi:type="ST" value= "<pre><b>CBC W/DIFF</b> .439.387.529.834.114.6220970092.40.9</pre> " /> <referenceRange> <observationRange> <text> 80.0-100.0</text> </observationRange> </referenceRange> </observation> </component> <component> <observation moodCode="EVN" classCode="OBS"> <templateId root= "2.16.840.1.232291.10.20.22.4.2" /> <id nullFlavor="NA" /> < code codeSystem="local" code="MO#" displayName="MONOCYTE #" /> < statusCode code="completed" /> <effectiveTime value="470873659984" /> <value xsi:type="ST" value="<pre><b>CBC W/DIFF</b> .439.387.529.834.114.2945221375.40.9</pre>" /> < referenceRange> <observationRange> <text>0.1-1.0</text> </observationRange> </referenceRange> </observation > </component> <component> <observation moodCode="EVN" classCode="OBS"> <templateId root="2.16.840.1.586125.10.20.22.4.2" /> <id nullFlavor="NA" /> <code codeSystem="local" code="MO% " displayName="MONOCYTE %" /> <statusCode code="completed" /> <effectiveTime value="004406454604" /> <value xsi:type="ST" value= "<pre><b>CBC W/DIFF</b> 3449.439.387.529.834.114.2607719822..40.9</pre> " /> <interpretationCode codeSystem="local" code="*" /> < referenceRange> <observationRange> <text>4-6</text> </observationRange> </referenceRange> </observation> </component> <component> <observation moodCode="EVN" classCode= "OBS"> <templateId root="2.16.840.1.206359.10.20.22.4.2" /> < id nullFlavor="NA" /> <code codeSystem="local" code="RBC" displayName= "RED BLOOD CELL" /> <statusCode code="completed" /> < effectiveTime value="470617815921" /> <value xsi:type="ST" value="<pre> <b>CBC W/DIFF</b> .3449.439.387.529.834.114.1776197799..40.9</pre>" /> <referenceRange> <observationRange> <text>4.00- 6.00</text> </observationRange> </referenceRange> </ observation> </component> <component> <observation moodCode= "EVN" classCode="OBS"> <templateId root="216.840.1.786055.10..22.4.2 " /> <id nullFlavor="NA" /> <code codeSystem="local" code="RDW " displayName="RED CELL DISTRIBUTION WIDTH" /> <statusCode code= "completed" /> <effectiveTime value="075559931058" /> <value xsi:type="ST" value="<pre><b>CBC W/DIFF</b> .439.387.529.834.114.8031024301..40.9</pre>" /> < referenceRange> <observationRange> <text>11.0-15.6</text > </observationRange> </referenceRange> </observation > </component> <component> <observation moodCode="EVN" classCode="OBS"> <templateId root="16.840.1.802488.10.22.4.2" /> <id nullFlavor="NA" /> <code codeSystem="local" code="WBC" displayName="WHITE BLOOD CELL" /> <statusCode code="completed" /> <effectiveTime value="662208396990" /> <value xsi:type="ST" value= "<pre><b>CBC W/DIFF</b> .439.387.529.834.114.9180066162..40.9</pre> " /> <interpretationCode codeSystem="local" code="*" /> < referenceRange> <observationRange> <text>5.0-10.0</text > </observationRange> </referenceRange> </observation > </component> <component> <observation moodCode="EVN" classCode="OBS"> <templateId root="216.840.1.073958.10.20.22.4.2" /> <id nullFlavor="NA" /> <code codeSystem="local" code="HGBT" displayName="HEMOGLOBIN" /> <statusCode code="completed" /> < effectiveTime value="681836741371" /> <value xsi:type="ST" value="<pre> <b>CBC W/DIFF</b> .439.387.529.834.114.3493240976.01.40.9</pre>" /> <referenceRange> <observationRange> <text>12.0- 16.0</text> </observationRange> </referenceRange> </ observation> </component> <component> <observation moodCode= "EVN" classCode="OBS"> <templateId root="2.16.840.1.486750.10..22.4.2 " /> <id nullFlavor="NA" /> <code codeSystem="local" code= "HCTT" displayName="HEMATOCRIT" /> <statusCode code="completed" /> <effectiveTime value="907596543210" /> <value xsi:type="ST" value ="<pre><b>CBC W/DIFF</b> .439.387.529.834.114.1847511680..40.9</pre> " /> <referenceRange> <observationRange> <text> 37.0-47.0</text> </observationRange> </referenceRange> </observation> </component> <component> <observation moodCode="EVN" classCode="OBS"> <templateId root= "216.840.1.693707.10..22.4.2" /> <id nullFlavor="NA" /> < code codeSystem="local" code="PLT" displayName="PLATELET COUNT" /> < statusCode code="completed" /> <effectiveTime value="573173960371" /> <value xsi:type="ST" value="<pre><b>CBC W/DIFF</b> 11.34.4913.439.387.529.834.114.1204725980.01.40.9</pre>" /> < referenceRange> <observationRange> <text>150-400</text> </observationRange> </referenceRange> </observation > </component> <component> <observation moodCode="EVN" classCode="OBS"> <templateId root="16.840.1.805461.10..22.4.2" /> <id nullFlavor="NA" /> <code codeSystem="local" code="MB" displayName="Microbiology" /> <statusCode code="completed" /> <effectiveTime value="592721719501" /> <value xsi:type="ST" value="<pre ><b>CBC W/DIFF</b> 11.344913.439.387.529.834.114.0267821644.01.40.9</pre>" /> <referenceRange> <observationRange> <text /> </observationRange> </referenceRange> </observation> </component> </organizer> </entry> <entry> <organizer moodCode="EVN " classCode="BATTERY"> <templateId root="05.02.840.1.390633.10..22.4.1" / > <id nullFlavor="NA" /> <code codeSystem="local" code="LIVER" displayName="HEPATIC FUNCTION PANEL" /> <statusCode code="completed" /> <component> <observation moodCode="EVN" classCode="OBS"> < templateId root="16.840.1.135639.10.20.22.4.2" /> <id nullFlavor="NA " /> <code codeSystem="local" code="BILUC" displayName="BILI UNCONJUGATED" /> <statusCode code="completed" /> < effectiveTime value="935239187395" /> <value unit="mg/dL" xsi:type="PQ " value="0.4" /> <referenceRange> <observationRange> <text>0.0-0.7</text> </observationRange> </ referenceRange> </observation> </component> <component> <observation moodCode="EVN" classCode="OBS"> <templateId root= "05.02.840.1.614126.10..4.2" /> <id nullFlavor="NA" /> < code codeSystem="local" code="AST" displayName="AST/SGOT" /> < statusCode code="completed" /> <effectiveTime value="810026240373" /> <value unit="Units/L" xsi:type="PQ" value="10" /> < referenceRange> <observationRange> <text>10-37</text> </observationRange> </referenceRange> </observation> </component> <component> <observation moodCode="EVN" classCode= "OBS"> <templateId root="05.02.840.1.455386.10...4.2" /> < id nullFlavor="NA" /> <code codeSystem="local" code="ALT" displayName= "ALT/SGPT" /> <statusCode code="completed" /> <effectiveTime value="857320641972" /> <value unit="Units/L" xsi:type="PQ" value="15" /> <referenceRange> <observationRange> <text>& lt; 66</text> </observationRange> </referenceRange> < /observation> </component> <component> <observation moodCode= "EVN" classCode="OBS"> <templateId root="05.02.840.1.821185.22.4.2 " /> <id nullFlavor="NA" /> <code codeSystem="local" code="TP " displayName="TOTAL PROTEIN" /> <statusCode code="completed" /> <effectiveTime value="" /> <value unit="gm/dL" xsi:type ="PQ" value="6.1" /> <interpretationCode codeSystem="local" code="*" / > <referenceRange> <observationRange> <text>6.4 -8.2</text> </observationRange> </referenceRange> </ observation> </component> <component> <observation moodCode= "EVN" classCode="OBS"> <templateId root="16.840.1.136504.01.03.22.4.2 " /> <id nullFlavor="NA" /> <code codeSystem="local" code="ALB " displayName="ALBUMIN" /> <statusCode code="completed" /> < effectiveTime value="" /> <value unit="gm/dL" xsi:type="PQ " value="3.2" /> <interpretationCode codeSystem="local" code="*" /> <referenceRange> <observationRange> <text>3.4-5.0 </text> </observationRange> </referenceRange> </ observation> </component> <component> <observation moodCode= "EVN" classCode="OBS"> <templateId root="05.02.840.1.955661.1022.4.2 " /> <id nullFlavor="NA" /> <code codeSystem="local" code= "BILTOT" displayName="BILI TOTAL" /> <statusCode code="completed" /> <effectiveTime value="" /> <value unit="mg/dL" xsi: type="PQ" value="0.5" /> <referenceRange> <observationRange > <text>0.0-1.0</text> </observationRange> </ referenceRange> </observation> </component> <component> <observation moodCode="EVN" classCode="OBS"> <templateId root= "05.02.840.1.105413.10..4.2" /> <id nullFlavor="NA" /> < code codeSystem="local" code="ALKP" displayName="ALKALINE PHOSPHATASE TOTAL" /> <statusCode code="completed" /> <effectiveTime value= "607838050993" /> <value unit="IU/L" xsi:type="PQ" value="89" /> <referenceRange> <observationRange> <text>45-117</ text> </observationRange> </referenceRange> </ observation> </component> <component> <observation moodCode= "EVN" classCode="OBS"> <templateId root="840.1.111612.01.03.22.4.2 " /> <id nullFlavor="NA" /> <code codeSystem="local" code= "BILC" displayName="BILI CONJUGATED" /> <statusCode code="completed" / > <effectiveTime value="514800441237" /> <value unit="mg/dL" xsi:type="PQ" value="0.1" /> <referenceRange> < observationRange> <text>0.0-0.3</text> </ observationRange> </referenceRange> </observation> </ component> <component> <observation moodCode="EVN" classCode="OBS"> <templateId root="05.02.840.1.729690..22.4.2" /> <id nullFlavor="NA" /> <code codeSystem="local" code="MB" displayName= "Microbiology" /> <statusCode code="completed" /> < effectiveTime value="737789929447" /> <value unit="" xsi:type="PQ" value="" /> <referenceRange> <observationRange> <text /> </observationRange> </referenceRange> </ observation> </component> </organizer> </entry> <entry> <organizer moodCode="EVN" classCode="BATTERY"> <templateId root= "16.840.1.580766.10.22.4.1" /> <id nullFlavor="NA" /> <code codeSystem="local" code="LIP" displayName="LIPASE" /> <statusCode code= "completed" /> <component> <observation moodCode="EVN" classCode= "OBS"> <templateId root="05.02.840.1.674447...4.2" /> < id nullFlavor="NA" /> <code codeSystem="local" code="LIP" displayName= "LIPASE" /> <statusCode code="completed" /> <effectiveTime value="811069453969" /> <value unit="Units/L" xsi:type="PQ" value="133 " /> <referenceRange> <observationRange> <text> 73-393</text> </observationRange> </referenceRange> < /observation> </component> </organizer> </entry> <entry> < organizer moodCode="EVN" classCode="BATTERY"> <templateId root= "05.02.840.1.351359.10.22.4.1" /> <id nullFlavor="NA" /> <code codeSystem="local" code="iCHEM8" displayName="CHEM/HEM PROFILE-BEDSIDE" /> <statusCode code="completed" /> <component> <observation moodCode= "EVN" classCode="OBS"> <templateId root="05.02.840.1.368472...4.2 " /> <id nullFlavor="NA" /> <code codeSystem="local" code="K" displayName="POTASSIUM" /> <statusCode code="completed" /> < effectiveTime value="983674853483" /> <value xsi:type="ST" value="<pre> <b>CHEM/HEM PROFILE-BEDSIDE</b> Gisecqz67.8Kwlaqcq2113.72255358959781.64.5</ pre>" /> <interpretationCode codeSystem="local" code="*" /> < referenceRange> <observationRange> <text>3.5-5.3</text> </observationRange> </referenceRange> </observation > </component> <component> <observation moodCode="EVN" classCode="OBS"> <templateId root="2.16.840.1.251329.10..4.2" /> <id nullFlavor="NA" /> <code codeSystem="local" code="CMETHOD " displayName="METHOD" /> <statusCode code="completed" /> < effectiveTime value="452518080343" /> <value xsi:type="ST" value="<pre> <b>CHEM/HEM PROFILE-BEDSIDE</b> Izbgujr09.9Ostxizk2717.27730205483848.64.5</ pre>" /> <referenceRange> <observationRange> < text /> </observationRange> </referenceRange> </ observation> </component> <component> <observation moodCode= "EVN" classCode="OBS"> <templateId root="216.840.1.663171.01.03.22.4.2 " /> <id nullFlavor="NA" /> <code codeSystem="local" code="GAP " displayName="ANION GAP" /> <statusCode code="completed" /> < effectiveTime value="134524601216" /> <value xsi:type="ST" value="<pre> <b>CHEM/HEM PROFILE-BEDSIDE</b> Ceadxqp45.4Lsfllmj0720.73016468716357.64.5</ pre>" /> <referenceRange> <observationRange> < text>10-20</text> </observationRange> </referenceRange> </observation> </component> <component> <observation moodCode="EVN" classCode="OBS"> <templateId root= "2.16.840.1.167423.10..22.4.2" /> <id nullFlavor="NA" /> < code codeSystem="local" code="HMETHOD" displayName="METHOD" /> < statusCode code="completed" /> <effectiveTime value="854432087630" /> <value xsi:type="ST" value="<pre><b>CHEM/HEM PROFILE-BEDSIDE</b> Dfbmirj466Gohjfim3748.02635999011398.64.5</pre>" /> < referenceRange> <observationRange> <text /> < /observationRange> </referenceRange> </observation> </ component> <component> <observation moodCode="EVN" classCode="OBS"> <templateId root="2.16.840.1.614562.10..22.4.2" /> <id nullFlavor="NA" /> <code codeSystem="local" code="GLU" displayName= "GLUCOSE" /> <statusCode code="completed" /> <effectiveTime value="256795001430" /> <value xsi:type="ST" value="<pre><b>CHEM/HEM PROFILE-BEDSIDE</b> Stcsaqs910Ppwxgyr6027.25563197162617.64.5</pre>" /> <interpretationCode codeSystem="local" code="*" /> < referenceRange> <observationRange> <text>70-99</text> </observationRange> </referenceRange> </observation> </component> <component> <observation moodCode="EVN" classCode= "OBS"> <templateId root="216.840.1.268207.10..22.4.2" /> < id nullFlavor="NA" /> <code codeSystem="local" code="BUN" displayName= "BLOOD UREA NITROGEN" /> <statusCode code="completed" /> < effectiveTime value="170653641414" /> <value xsi:type="ST" value="<pre> <b>CHEM/HEM PROFILE-BEDSIDE</b> Gepamjc38.938.4Izwqxhx5042.27282146338361.64.5</ pre>" /> <referenceRange> <observationRange> < text>7-20</text> </observationRange> </referenceRange> </observation> </component> <component> <observation moodCode="EVN" classCode="OBS"> <templateId root= "216.840.1.025647.10...4.2" /> <id nullFlavor="NA" /> < code codeSystem="local" code="CREAT" displayName="CREATININE" /> < statusCode code="completed" /> <effectiveTime value="858746989997" /> <value xsi:type="ST" value="<pre><b>CHEM/HEM PROFILE-BEDSIDE</b> Vmeratn89.938.5Xdapudy1204.74349869350248.64.5</pre>" /> < referenceRange> <observationRange> <text>0.6-1.0</text> </observationRange> </referenceRange> </observation > </component> <component> <observation moodCode="EVN" classCode="OBS"> <templateId root="216.840.1.553249.10.20.22.4.2" /> <id nullFlavor="NA" /> <code codeSystem="local" code="HGBT" displayName="HEMOGLOBIN" /> <statusCode code="completed" /> < effectiveTime value="712413259670" /> <value xsi:type="ST" value="<pre> <b>CHEM/HEM PROFILE-BEDSIDE</b> Dmxqcwh668.5Ycvfrca6445.43975777345537.64.5</ pre>" /> <referenceRange> <observationRange> < text>12.0-16.0</text> </observationRange> </referenceRange> </observation> </component> <component> <observation moodCode="EVN" classCode="OBS"> <templateId root= "2.16.840.1.494748.10...4.2" /> <id nullFlavor="NA" /> < code codeSystem="local" code="HCTT" displayName="HEMATOCRIT" /> < statusCode code="completed" /> <effectiveTime value="527807416576" /> <value xsi:type="ST" value="<pre><b>CHEM/HEM PROFILE-BEDSIDE</b> Vbitscf87.4Slfwwdj5459.48856210334957.64.5</pre>" /> < referenceRange> <observationRange> <text>37.0-47.0</text > </observationRange> </referenceRange> </observation > </component> <component> <observation moodCode="EVN" classCode="OBS"> <templateId root="216.840.1.792400.10..22.4.2" /> <id nullFlavor="NA" /> <code codeSystem="local" code="NA" displayName="SODIUM" /> <statusCode code="completed" /> < effectiveTime value="997477700762" /> <value xsi:type="ST" value="<pre> <b>CHEM/HEM PROFILE-BEDSIDE</b> Prguwex33.938.0Xxmkzdu2190.90302783119896.64.5</ pre>" /> <referenceRange> <observationRange> < text>135-148</text> </observationRange> </referenceRange> </observation> </component> <component> <observation moodCode="EVN" classCode="OBS"> <templateId root= "2.16.840.1.904016.10..22.4.2" /> <id nullFlavor="NA" /> < code codeSystem="local" code="CL" displayName="CHLORIDE" /> < statusCode code="completed" /> <effectiveTime value="282293515257" /> <value xsi:type="ST" value="<pre><b>CHEM/HEM PROFILE-BEDSIDE</b> Qkilhnw32.938.8Yzfvbge4898.73355376684676.64.5</pre>" /> < referenceRange> <observationRange> <text>98-110</text> </observationRange> </referenceRange> </observation> </component> <component> <observation moodCode="EVN" classCode ="OBS"> <templateId root="2.16.840.1.450732.10..22.4.2" /> < id nullFlavor="NA" /> <code codeSystem="local" code="CO2" displayName= "CARBON DIOXIDE" /> <statusCode code="completed" /> < effectiveTime value="646975593850" /> <value xsi:type="ST" value="<pre> <b>CHEM/HEM PROFILE-BEDSIDE</b> Dfijmvz42.938.2Xpuzkhm9566.50287168530829.64.5</ pre>" /> <referenceRange> <observationRange> < text>21-32</text> </observationRange> </referenceRange> </observation> </component> <component> <observation moodCode="EVN" classCode="OBS"> <templateId root= "216.840.1.744873.10..22.4.2" /> <id nullFlavor="NA" /> < code codeSystem="local" code="ELI" displayName="CALCIUM IONIZED" /> < statusCode code="completed" /> <effectiveTime value="971500405318" /> <value xsi:type="ST" value="<pre><b>CHEM/HEM PROFILE-BEDSIDE</b> Ocphaje22.938.7Ojdnmqw4924.35236214427555.64.5</pre>" /> < referenceRange> <observationRange> <text>4.5-5.3</text> </observationRange> </referenceRange> </observation > </component> <component> <observation moodCode="EVN" classCode="OBS"> <templateId root="05.02.840.1.643566.10...4.2" /> <id nullFlavor="NA" /> <code codeSystem="local" code="MB" displayName="Microbiology" /> <statusCode code="completed" /> <effectiveTime value="647240654883" /> <value xsi:type="ST" value="<pre ><b>CHEM/HEM PROFILE-BEDSIDE</b> Osfchdl89.9Yyvzxlp3908.74505858638758.64.5< /pre>" /> <referenceRange> <observationRange> < text /> </observationRange> </referenceRange> </ observation> </component> </organizer> </entry> <entry> <organizer moodCode="EVN" classCode="BATTERY"> <templateId root= "216.840.1.328854.10..22.4.1" /> <id nullFlavor="NA" /> <code codeSystem="local" code="UA" displayName="URINALYSIS, ROUTINE" /> < statusCode code="completed" /> <component> <observation moodCode= "EVN" classCode="OBS"> <templateId root="216.840.1.109614.10.4.2 " /> <id nullFlavor="NA" /> <code codeSystem="local" code= "LEUESU" displayName="UA LEUKOCYTE ESTERASE DIPSTICK" /> <statusCode code="completed" /> <effectiveTime value="[id number]" /> < value unit="" xsi:type="PQ" value="NEGATIVE" /> <referenceRange> <observationRange> <text>NEGATIVE</text> </ observationRange> </referenceRange> </observation> </ component> <component> <observation moodCode="EVN" classCode="OBS"> <templateId root="[id number]" /> <id nullFlavor="NA" /> <code codeSystem="local" code="NITRIU" displayName= "UA NITRITE DIPSTICK" /> <statusCode code="completed" /> < effectiveTime value="[id number]" /> <value unit="" xsi:type="PQ" value="POSITIVE" /> <interpretationCode codeSystem="local" code="*" /> <referenceRange> <observationRange> <text> NEGATIVE</text> </observationRange> </referenceRange> </observation> </component> <component> <observation moodCode ="EVN" classCode="OBS"> <templateId root= "[id number]...4.2" /> <id nullFlavor="NA" /> < code codeSystem="local" code="PROTEIU" displayName="UA PROTEIN DIPSTICK" /> <statusCode code="completed" /> <effectiveTime value= "[id number]" /> <value unit="" xsi:type="PQ" value="NEGATIVE" /> <referenceRange> <observationRange> <text>NEGATIVE </text> </observationRange> </referenceRange> </ observation> </component> <component> <observation moodCode= "EVN" classCode="OBS"> <templateId root="[id number] " /> <id nullFlavor="NA" /> <code codeSystem="local" code= "DGLUU" displayName="UA GLUCOSE DIPSTICK" /> <statusCode code= "completed" /> <effectiveTime value="[id number]" /> <value unit="" xsi:type="PQ" value="NEGATIVE" /> <referenceRange> < observationRange> <text>NEGATIVE</text> </ observationRange> </referenceRange> </observation> </ component> <component> <observation moodCode="EVN" classCode="OBS"> <templateId root="840.1.047038.01.03.22.4.2" /> <id nullFlavor="NA" /> <code codeSystem="local" code="KETONU" displayName= "UA KETONE DIPSTICK" /> <statusCode code="completed" /> < effectiveTime value="[id number]" /> <value unit="" xsi:type="PQ" value="NEGATIVE" /> <referenceRange> <observationRange> <text>NEGATIVE</text> </observationRange> </ referenceRange> </observation> </component> <component> <observation moodCode="EVN" classCode="OBS"> <templateId root= "05.02.840.1.134747.10.22.4.2" /> <id nullFlavor="NA" /> < code codeSystem="local" code="UROBILU" displayName="UA UROBILINOGEN DIPSTICK" / > <statusCode code="completed" /> <effectiveTime value= "562046318483" /> <value unit="" xsi:type="PQ" value="NORMAL" /> <referenceRange> <observationRange> <text>NORMAL</ text> </observationRange> </referenceRange> </ observation> </component> <component> <observation moodCode= "EVN" classCode="OBS"> <templateId root="216.840.1.348702...22.4.2 " /> <id nullFlavor="NA" /> <code codeSystem="local" code= "BILU" displayName="UA BILIRUBIN DIPSTICK" /> <statusCode code= "completed" /> <effectiveTime value="311329738187" /> <value unit="" xsi:type="PQ" value="NEGATIVE" /> <referenceRange> < observationRange> <text>NEGATIVE</text> </ observationRange> </referenceRange> </observation> </ component> <component> <observation moodCode="EVN" classCode="OBS"> <templateId root="216.840.1.914896.01.03.22.4.2" /> <id nullFlavor="NA" /> <code codeSystem="local" code="CARITO" displayName="UA BLOOD DIPSTICK" /> <statusCode code="completed" /> < effectiveTime value="132011940135" /> <value unit="" xsi:type="PQ" value="1+" /> <interpretationCode codeSystem="local" code="*" /> <referenceRange> <observationRange> <text>NEGATIVE</ text> </observationRange> </referenceRange> </ observation> </component> <component> <observation moodCode= "EVN" classCode="OBS"> <templateId root="216.840.1.360624.22.4.2 " /> <id nullFlavor="NA" /> <code codeSystem="local" code= "SPGRU" displayName="UA SPECIFIC GRAVITY" /> <statusCode code= "completed" /> <effectiveTime value="490671614440" /> <value unit="" xsi:type="PQ" value="1.025" /> <referenceRange> < observationRange> <text>1.015-1.025</text> </ observationRange> </referenceRange> </observation> </ component> <component> <observation moodCode="EVN" classCode="OBS"> <templateId root="2.16.840.1.337747.01.03.22.4.2" /> <id nullFlavor="NA" /> <code codeSystem="local" code="SUSANA" displayName="UR PH" /> <statusCode code="completed" /> <effectiveTime value= "572630629989" /> <value unit="" xsi:type="PQ" value="5.5" /> <referenceRange> <observationRange> <text>5.0-7.0</text > </observationRange> </referenceRange> </observation > </component> <component> <observation moodCode="EVN" classCode="OBS"> <templateId root="216.840.1.084443.01.03.22.4.2" /> <id nullFlavor="NA" /> <code codeSystem="local" code="MB" displayName="Microbiology" /> <statusCode code="completed" /> <effectiveTime value="784110234509" /> <value unit="" xsi:type="PQ" value="" /> <referenceRange> <observationRange> <text /> </observationRange> </referenceRange> </ observation> </component> </organizer> </entry> <entry> <organizer moodCode="EVN" classCode="BATTERY"> <templateId root= "216.840.1.117222.10..22.4.1" /> <id nullFlavor="NA" /> <code codeSystem="local" code="UAMICRO" displayName="UA MICROSCOPIC" /> < statusCode code="completed" /> <component> <observation moodCode= "EVN" classCode="OBS"> <templateId root="16.840.1.471020.10..22.4.2 " /> <id nullFlavor="NA" /> <code codeSystem="local" code= "BACU" displayName="UA BACTERIA" /> <statusCode code="completed" /> <effectiveTime value="098592980240" /> <value unit="" xsi:type= "PQ" value="5+" /> <interpretationCode codeSystem="local" code="*" /> <referenceRange> <observationRange> <text> NEGATIVE</text> </observationRange> </referenceRange> </observation> </component> <component> <observation moodCode ="EVN" classCode="OBS"> <templateId root= "16.840.1.638526.10..22.4.2" /> <id nullFlavor="NA" /> < code codeSystem="local" code="EPIU" displayName="UA EPITHELIAL CELLS" /> <statusCode code="completed" /> <effectiveTime value="853139583642" /> <value unit="epi/hpf" xsi:type="PQ" value="3+" /> < interpretationCode codeSystem="local" code="*" /> <referenceRange> <observationRange> <text>0 - 1+</text> </ observationRange> </referenceRange> </observation> </ component> <component> <observation moodCode="EVN" classCode="OBS"> <templateId root="05.02.840.1.096865.10..22.4.2" /> <id nullFlavor="NA" /> <code codeSystem="local" code="MUCUSU" displayName= "UA MUCUS" /> <statusCode code="completed" /> <effectiveTime value="129798493207" /> <value unit="" xsi:type="PQ" value="3+" /> <interpretationCode codeSystem="local" code="*" /> < referenceRange> <observationRange> <text>NEG TO 1+</text > </observationRange> </referenceRange> </observation > </component> <component> <observation moodCode="EVN" classCode="OBS"> <templateId root="840.1.142378...4.2" /> <id nullFlavor="NA" /> <code codeSystem="local" code="RBCU" displayName="UA RBC" /> <statusCode code="completed" /> < effectiveTime value="968816366939" /> <value unit="rbc/hpf" xsi:type= "PQ" value="3-5" /> <interpretationCode codeSystem="local" code="*" /> <referenceRange> <observationRange> <text>0 - 3</text> </observationRange> </referenceRange> </ observation> </component> <component> <observation moodCode= "EVN" classCode="OBS"> <templateId root="05.02.840.1.112804.10..22.4.2 " /> <id nullFlavor="NA" /> <code codeSystem="local" code= "UAVOL" displayName="UA VOLUME FOR EXAM" /> <statusCode code="completed " /> <effectiveTime value="399973960666" /> <value unit="mL" xsi:type="PQ" value="12.0" /> <referenceRange> < observationRange> <text>(12mL STD)</text> </ observationRange> </referenceRange> </observation> </ component> <component> <observation moodCode="EVN" classCode="OBS"> <templateId root="216.840.1.955000.10.20.22.4.2" /> <id nullFlavor="NA" /> <code codeSystem="local" code="WBCU" displayName=" UA WBC" /> <statusCode code="completed" /> <effectiveTime value="299628141221" /> <value unit="wbc/hpf" xsi:type="PQ" value="0" / > <referenceRange> <observationRange> <text>0 - 5</text> </observationRange> </referenceRange> </ observation> </component> </organizer> </entry> <entry> <organizer moodCode="EVN" classCode="BATTERY"> <templateId root= "16.840.1.682180.10..22.4.1" /> <id nullFlavor="NA" /> <code codeSystem="local" code="PREGU" displayName="UR TEST" /> < statusCode code="completed" /> <component> <observation moodCode= "EVN" classCode="OBS"> <templateId root="16.840.1.413129.10.2022.4.2 " /> <id nullFlavor="NA" /> <code codeSystem="local" code= "PREGU" displayName="UR TEST" /> <statusCode code="completed " /> <effectiveTime value="119896553109" /> <value xsi:type= "ST" value="<pre><b>UR TEST</b> NEGATIVE</pre>" /> < referenceRange> <observationRange> <text>NEGATIVE</text > </observationRange> </referenceRange> </observation > </component> <component> <observation moodCode="EVN" classCode="OBS"> <templateId root="216.840.1.394497.10..22.4.2" /> <id nullFlavor="NA" /> <code codeSystem="local" code="MB" displayName="Microbiology" /> <statusCode code="completed" /> <effectiveTime value="373590875262" /> <value xsi:type="ST" value="<pre ><b>UR TEST</b> NEGATIVE</pre>" /> <referenceRange> <observationRange> <text /> </observationRange> </referenceRange> </observation> </component> </organizer> </entry> <entry> <organizer moodCode="EVN" classCode="BATTERY"> < templateId root="2.16.840.1.834926.10..22.4.1" /> <id nullFlavor="NA" /> <code codeSystem="local" code="UA" displayName="URINALYSIS, ROUTINE" /> <statusCode code="completed" /> <component> <observation moodCode="EVN" classCode="OBS"> <templateId root= "2.16.840.1.356183.10..22.4.2" /> <id nullFlavor="NA" /> < code codeSystem="local" code="LEUESU" displayName="UA LEUKOCYTE ESTERASE DIPSTICK" /> <statusCode code="completed" /> <effectiveTime value="356368844661" /> <value unit="" xsi:type="PQ" value="3+" /> <interpretationCode codeSystem="local" code="*" /> < referenceRange> <observationRange> <text>NEGATIVE</text > </observationRange> </referenceRange> </observation > </component> <component> <observation moodCode="EVN" classCode="OBS"> <templateId root="216.840.1.767171.10...4.2" /> <id nullFlavor="NA" /> <code codeSystem="local" code="NITRIU" displayName="UA NITRITE DIPSTICK" /> <statusCode code="completed" /> <effectiveTime value="" /> <value unit="" xsi:type= "PQ" value="POSITIVE" /> <interpretationCode codeSystem="local" code="* " /> <referenceRange> <observationRange> <text> NEGATIVE</text> </observationRange> </referenceRange> </observation> </component> <component> <observation moodCode ="EVN" classCode="OBS"> <templateId root= "216.840.1.848820.01.03.22.4.2" /> <id nullFlavor="NA" /> < code codeSystem="local" code="PROTEIU" displayName="UA PROTEIN DIPSTICK" /> <statusCode code="completed" /> <effectiveTime value= "" /> <value unit="" xsi:type="PQ" value="NEGATIVE" /> <referenceRange> <observationRange> <text>NEGATIVE </text> </observationRange> </referenceRange> </ observation> </component> <component> <observation moodCode= "EVN" classCode="OBS"> <templateId root="16.840.1.829790.10...4.2 " /> <id nullFlavor="NA" /> <code codeSystem="local" code= "DGLUU" displayName="UA GLUCOSE DIPSTICK" /> <statusCode code= "completed" /> <effectiveTime value="" /> <value unit="" xsi:type="PQ" value="NEGATIVE" /> <referenceRange> < observationRange> <text>NEGATIVE</text> </ observationRange> </referenceRange> </observation> </ component> <component> <observation moodCode="EVN" classCode="OBS"> <templateId root="216.840.1.016516.10..4.2" /> <id nullFlavor="NA" /> <code codeSystem="local" code="KETONU" displayName= "UA KETONE DIPSTICK" /> <statusCode code="completed" /> < effectiveTime value="" /> <value unit="" xsi:type="PQ" value="NEGATIVE" /> <referenceRange> <observationRange> <text>NEGATIVE</text> </observationRange> </ referenceRange> </observation> </component> <component> <observation moodCode="EVN" classCode="OBS"> <templateId root= "05.02.840.1.190947.01.03.22.4.2" /> <id nullFlavor="NA" /> < code codeSystem="local" code="UROBILU" displayName="UA UROBILINOGEN DIPSTICK" / > <statusCode code="completed" /> <effectiveTime value= "" /> <value unit="" xsi:type="PQ" value="NORMAL" /> <referenceRange> <observationRange> <text>NORMAL</ text> </observationRange> </referenceRange> </ observation> </component> <component> <observation moodCode= "EVN" classCode="OBS"> <templateId root="05.02.840.1.310157.10..4.2 " /> <id nullFlavor="NA" /> <code codeSystem="local" code= "BILU" displayName="UA BILIRUBIN DIPSTICK" /> <statusCode code= "completed" /> <effectiveTime value="" /> <value unit="" xsi:type="PQ" value="NEGATIVE" /> <referenceRange> < observationRange> <text>NEGATIVE</text> </ observationRange> </referenceRange> </observation> </ component> <component> <observation moodCode="EVN" classCode="OBS"> <templateId root="216.840.1.968531.10..4.2" /> <id nullFlavor="NA" /> <code codeSystem="local" code="CARITO" displayName="UA BLOOD DIPSTICK" /> <statusCode code="completed" /> < effectiveTime value="" /> <value unit="" xsi:type="PQ" value="TRACE" /> <interpretationCode codeSystem="local" code="*" /> <referenceRange> <observationRange> <text> NEGATIVE</text> </observationRange> </referenceRange> </observation> </component> <component> <observation moodCode ="EVN" classCode="OBS"> <templateId root= "05.02.840.1.250166.01.03.22.4.2" /> <id nullFlavor="NA" /> < code codeSystem="local" code="SPGRU" displayName="UA SPECIFIC GRAVITY" /> <statusCode code="completed" /> <effectiveTime value=" " /> <value unit="" xsi:type="PQ" value="1.025" /> < referenceRange> <observationRange> <text>1.015-1.025</ text> </observationRange> </referenceRange> </ observation> </component> <component> <observation moodCode= "EVN" classCode="OBS"> <templateId root="216.840.1.573755.10..22.4.2 " /> <id nullFlavor="NA" /> <code codeSystem="local" code="SUSANA " displayName="UR PH" /> <statusCode code="completed" /> < effectiveTime value="" /> <value unit="" xsi:type="PQ" value="6.0" /> <referenceRange> <observationRange> <text>5.0-7.0</text> </observationRange> </ referenceRange> </observation> </component> </organizer> </entry > <entry> <organizer moodCode="EVN" classCode="BATTERY"> <templateId root="16.840.1.332919.10..22.4.1" /> <id nullFlavor="NA" /> <code codeSystem="local" code="UAMICRO" displayName="UA MICROSCOPIC" /> < statusCode code="completed" /> <component> <observation moodCode= "EVN" classCode="OBS"> <templateId root="05.02.840.1.584121.10...4.2 " /> <id nullFlavor="NA" /> <code codeSystem="local" code= "BACU" displayName="UA BACTERIA" /> <statusCode code="completed" /> <effectiveTime value="375255381046" /> <value unit="" xsi:type= "PQ" value="5+" /> <interpretationCode codeSystem="local" code="*" /> <referenceRange> <observationRange> <text> NEGATIVE</text> </observationRange> </referenceRange> </observation> </component> <component> <observation moodCode ="EVN" classCode="OBS"> <templateId root= "05.02.840.1.304701.10...4.2" /> <id nullFlavor="NA" /> < code codeSystem="local" code="EPIU" displayName="UA EPITHELIAL CELLS" /> <statusCode code="completed" /> <effectiveTime value="" /> <value unit="epi/hpf" xsi:type="PQ" value="2+" /> < interpretationCode codeSystem="local" code="*" /> <referenceRange> <observationRange> <text>0 - 1+</text> </ observationRange> </referenceRange> </observation> </ component> <component> <observation moodCode="EVN" classCode="OBS"> <templateId root="216.840.1.178123.10.20.22.4.2" /> <id nullFlavor="NA" /> <code codeSystem="local" code="RBCU" displayName=" UA RBC" /> <statusCode code="completed" /> <effectiveTime value="" /> <value unit="rbc/hpf" xsi:type="PQ" value="3-5 " /> <interpretationCode codeSystem="local" code="*" /> < referenceRange> <observationRange> <text>0 - 3</text> </observationRange> </referenceRange> </observation> </component> <component> <observation moodCode="EVN" classCode= "OBS"> <templateId root="216.840.1.605766.10.20.22.4.2" /> < id nullFlavor="NA" /> <code codeSystem="local" code="UAVOL" displayName ="UA VOLUME FOR EXAM" /> <statusCode code="completed" /> < effectiveTime value="" /> <value unit="mL" xsi:type="PQ" value="12.0" /> <referenceRange> <observationRange> <text>(12mL STD)</text> </observationRange> </ referenceRange> </observation> </component> <component> <observation moodCode="EVN" classCode="OBS"> <templateId root= "216.840.1.485661.10..22.4.2" /> <id nullFlavor="NA" /> < code codeSystem="local" code="WBCU" displayName="UA WBC" /> < statusCode code="completed" /> <effectiveTime value="491847320259" /> <value unit="wbc/hpf" xsi:type="PQ" value="10-20" /> < interpretationCode codeSystem="local" code="*" /> <referenceRange> <observationRange> <text>0 - 5</text> </ observationRange> </referenceRange> </observation> </ component> </organizer> </entry> <entry> <organizer moodCode="EVN" classCode="BATTERY"> <templateId root="16.840.1.581448.10..22.4.1" /> <id nullFlavor="NA" /> <code codeSystem="local" code="LIVER" displayName="HEPATIC FUNCTION PANEL" /> <statusCode code="completed" /> <component> <observation moodCode="EVN" classCode="OBS"> < templateId root="16.840.1.140043.10..22.4.2" /> <id nullFlavor="NA " /> <code codeSystem="local" code="BILUC" displayName="BILI UNCONJUGATED" /> <statusCode code="completed" /> < effectiveTime value="976488128510" /> <value unit="mg/dL" xsi:type="PQ " value="0.2" /> <referenceRange> <observationRange> <text>0.0-0.7</text> </observationRange> </ referenceRange> </observation> </component> <component> <observation moodCode="EVN" classCode="OBS"> <templateId root= "05.02.840.1.310661.10..22.4.2" /> <id nullFlavor="NA" /> < code codeSystem="local" code="AST" displayName="AST/SGOT" /> < statusCode code="completed" /> <effectiveTime value="" /> <value unit="Units/L" xsi:type="PQ" value="24" /> < referenceRange> <observationRange> <text>10-37</text> </observationRange> </referenceRange> </observation> </component> <component> <observation moodCode="EVN" classCode= "OBS"> <templateId root="216.840.1.644185.10..4.2" /> < id nullFlavor="NA" /> <code codeSystem="local" code="ALT" displayName= "ALT/SGPT" /> <statusCode code="completed" /> <effectiveTime value="" /> <value unit="Units/L" xsi:type="PQ" value="23" /> <referenceRange> <observationRange> <text>& lt; 66</text> </observationRange> </referenceRange> < /observation> </component> <component> <observation moodCode= "EVN" classCode="OBS"> <templateId root="216.840.1.180243.10..4.2 " /> <id nullFlavor="NA" /> <code codeSystem="local" code="TP " displayName="TOTAL PROTEIN" /> <statusCode code="completed" /> <effectiveTime value="" /> <value unit="gm/dL" xsi:type ="PQ" value="6.8" /> <referenceRange> <observationRange> <text>6.4-8.2</text> </observationRange> </ referenceRange> </observation> </component> <component> <observation moodCode="EVN" classCode="OBS"> <templateId root= "216.840.1.633742.10..4.2" /> <id nullFlavor="NA" /> < code codeSystem="local" code="ALB" displayName="ALBUMIN" /> < statusCode code="completed" /> <effectiveTime value="" /> <value unit="gm/dL" xsi:type="PQ" value="2.7" /> < interpretationCode codeSystem="local" code="*" /> <referenceRange> <observationRange> <text>3.4-5.0</text> </ observationRange> </referenceRange> </observation> </ component> <component> <observation moodCode="EVN" classCode="OBS"> <templateId root="16.840.1.618477.01.03.224.2" /> <id nullFlavor="NA" /> <code codeSystem="local" code="BILTOT" displayName= "BILI TOTAL" /> <statusCode code="completed" /> < effectiveTime value="" /> <value unit="mg/dL" xsi:type="PQ " value="0.3" /> <referenceRange> <observationRange> <text>0.0-1.0</text> </observationRange> </ referenceRange> </observation> </component> <component> <observation moodCode="EVN" classCode="OBS"> <templateId root= "216.840.1.080159.22.4.2" /> <id nullFlavor="NA" /> < code codeSystem="local" code="ALKP" displayName="ALKALINE PHOSPHATASE TOTAL" /> <statusCode code="completed" /> <effectiveTime value= "" /> <value unit="IU/L" xsi:type="PQ" value="81" /> <referenceRange> <observationRange> <text>45-117</ text> </observationRange> </referenceRange> </ observation> </component> <component> <observation moodCode= "EVN" classCode="OBS"> <templateId root="216.840.1.810171.01.03.22.4.2 " /> <id nullFlavor="NA" /> <code codeSystem="local" code= "BILC" displayName="BILI CONJUGATED" /> <statusCode code="completed" / > <effectiveTime value="" /> <value unit="mg/dL" xsi:type="PQ" value="< 0.1" /> <referenceRange> < observationRange> <text>0.0-0.3</text> </ observationRange> </referenceRange> </observation> </ component> </organizer> </entry> <entry> <organizer moodCode="EVN" classCode="BATTERY"> <templateId root="16.840.1.540164.01.03.22.4.1" /> <id nullFlavor="NA" /> <code codeSystem="local" code="LIP" displayName ="LIPASE" /> <statusCode code="completed" /> <component> < observation moodCode="EVN" classCode="OBS"> <templateId root= "16.840.1.714849.22.4.2" /> <id nullFlavor="NA" /> < code codeSystem="local" code="LIP" displayName="LIPASE" /> <statusCode code="completed" /> <effectiveTime value="" /> < value unit="Units/L" xsi:type="PQ" value="121" /> <referenceRange> <observationRange> <text>73-393</text> </ observationRange> </referenceRange> </observation> </ component> </organizer> </entry> <entry> <organizer moodCode="EVN" classCode="BATTERY"> <templateId root="216.840.1.210847.10..22.4.1" /> <id nullFlavor="NA" /> <code codeSystem="local" code="CK" displayName= "CREATINE KINASE (CK/CPK)" /> <statusCode code="completed" /> < component> <observation moodCode="EVN" classCode="OBS"> < templateId root="16.840.1.695114.10...4.2" /> <id nullFlavor="NA " /> <code codeSystem="local" code="CK" displayName="CREATINE KINASE ( CK/CPK)" /> <statusCode code="completed" /> <effectiveTime value="536322894076" /> <value unit="Units/L" xsi:type="PQ" value="68" /> <referenceRange> <observationRange> <text>& lt; 193</text> </observationRange> </referenceRange> </observation> </component> </organizer> </entry> <entry> < organizer moodCode="EVN" classCode="BATTERY"> <templateId root= "05.02.840.1.653205.10..22.4.1" /> <id nullFlavor="NA" /> <code codeSystem="local" code="LEGUA" displayName="AG LEGIONELLA URINE" /> < statusCode code="completed" /> <component> <observation moodCode= "EVN" classCode="OBS"> <templateId root="216.840.1.548477.10..22.4.2 " /> <id nullFlavor="NA" /> <code codeSystem="local" code="MB " displayName="Microbiology" /> <statusCode code="completed" /> <effectiveTime value="967657952751" /> <value xsi:type="ST" value="< pre><b>AG LEGIONELLA URINE - AG STREPTOCOCCUS PNEUMONIAE</b> See BelowAG LEGIONELLA URINE(F) Kasandra Date/Time: 11/21/2015 20:44 Suzie Date/Time: 11/22/2015 17:16SOURCE: URINESPEC DESC: LEGIONELLA ANTIGENNEGATIVE FOR LEGIONELLA PNEUMOPHILA SEROGROUP [address] [id number] BelowAG STREPTOCOCCUS PNEUMONIAE(F) Kasandra Date/Time: 11/21/2015 20:44 Suzie Date/Time: 11/22/2015 17:16SOURCE: URINESPEC DESC: STREPTOCOCCUS PNEUMONIAENEGATIVE FOR STREPTOCOCCUS PNEUMONIAE[address] [address]</ pre>" /> <referenceRange> <observationRange> < text /> </observationRange> </referenceRange> </ observation> </component> </organizer> </entry> <entry> <organizer moodCode="EVN" classCode="BATTERY"> <templateId root= "2.16.840.1.507312.10..22.4.1" /> <id nullFlavor="NA" /> <code codeSystem="local" code="BC" displayName="BLOOD CULTURE" /> <statusCode code="completed" /> <component> <observation moodCode="EVN" classCode="OBS"> <templateId root="2.16.840.1.595553.10..22.4.2" /> <id nullFlavor="NA" /> <code codeSystem="local" code="MB" displayName="Microbiology" /> <statusCode code="completed" /> <effectiveTime value="642425353382" /> <value xsi:type="ST" value="<pre ><b>BLOOD CULTURE</b> See BelowIs this the first BLOOD CULTURE or a possible SEPSIS patient? YBLOOD CULTURE(F) Kasandra Date/Time: 11/22/2015 01: 00 Suzie Date/Time: 11/27/2015 12:40SOURCE: BLOODSPEC DESC: [id number] [facility]TH [facility] [address] [facility] [place] [address]</pre>" /> <referenceRange> < observationRange> <text /> </observationRange> </referenceRange> </observation> </component> </organizer> </ entry> <entry> <organizer moodCode="EVN" classCode="BATTERY"> < templateId root="2.16.840.1.726578.10.20.22.4.1" /> <id nullFlavor="NA" /> <code codeSystem="local" code="BCLACT" displayName="BC REFLEX LACTIC ACID " /> <statusCode code="completed" /> <component> <observation moodCode="EVN" classCode="OBS"> <templateId root= "2.16.840.1.266053.10.20.22.4.2" /> <id nullFlavor="NA" /> < code codeSystem="local" code="LACT" displayName="LACTIC ACID" /> < statusCode code="completed" /> <effectiveTime value="552535970406" /> <value unit="mmol/L" xsi:type="PQ" value="2.8" /> < interpretationCode codeSystem="local" code="*" /> <referenceRange> <observationRange> <text>0.5-2.0</text> </ observationRange> </referenceRange> </observation> </ component> </organizer> </entry> <entry> <organizer moodCode="EVN" classCode="BATTERY"> <templateId root="2.16.840.1.395570.10.20.22.4.1" /> <id nullFlavor="NA" /> <code codeSystem="local" code="BC" displayName= "BLOOD CULTURE" /> <statusCode code="completed" /> <component> <observation moodCode="EVN" classCode="OBS"> <templateId root= "05.02.840.1.954767.10..4.2" /> <id nullFlavor="NA" /> < code codeSystem="local" code="MB" displayName="Microbiology" /> < statusCode code="completed" /> <effectiveTime value="955416735222" /> <value xsi:type="ST" value="<pre><b>BLOOD CULTURE</b> See BelowIs this the first BLOOD CULTURE or a possible SEPSIS patient? YBLOOD CULTURE(F) Kasandra Date/Time: 11/22/2015 01:09 Suzie Date/ Time: 11/27/2015 12:40SOURCE: BLOODSPEC DESC: [id number] GROWTH [address] [facility] [place] [address]</pre>" /> < referenceRange> <observationRange> <text /> < /observationRange> </referenceRange> </observation> </ component> </organizer> </entry> <entry> <organizer moodCode="EVN" classCode="BATTERY"> <templateId root="05.02.840.1.356828...4.1" /> <id nullFlavor="NA" /> <code codeSystem="local" code="LACT" displayName="LACTIC ACID" /> <statusCode code="completed" /> < component> <observation moodCode="EVN" classCode="OBS"> < templateId root="216.840.1.566238.10..22.4.2" /> <id nullFlavor="NA " /> <code codeSystem="local" code="LACT" displayName="LACTIC ACID" /> <statusCode code="completed" /> <effectiveTime value= "085198171863" /> <value unit="mmol/L" xsi:type="PQ" value="1.5" /> <referenceRange> <observationRange> <text>0.5-2.0 </text> </observationRange> </referenceRange> </ observation> </component> </organizer> </entry> <entry> <organizer moodCode="EVN" classCode="BATTERY"> <templateId root= "05.02.840.1.961347.10..4.1" /> <id nullFlavor="NA" /> <code codeSystem="local" code="CD48" displayName="CD4/8 RATIO" /> <statusCode code="completed" /> <component> <observation moodCode="EVN" classCode="OBS"> <templateId root="05.02.840.1.054067.10...4.2" /> <id nullFlavor="NA" /> <code codeSystem="local" code="[id number] " displayName="CD 3/4 POSITIVE" /> <statusCode code="completed" /> <effectiveTime value="280067140538" /> <value unit="%" xsi: type="PQ" value="19" /> <interpretationCode codeSystem="local" code="* " /> <referenceRange> <observationRange> <text> 34-68</text> </observationRange> </referenceRange> </ observation> </component> <component> <observation moodCode= "EVN" classCode="OBS"> <templateId root="05.02.840.1.582312.01.03.22.4.2 " /> <id nullFlavor="NA" /> <code codeSystem="local" code= "[id number]" displayName="CD 3/4 ABSOLUTE" /> <statusCode code="completed " /> <effectiveTime value="661624409276" /> <value unit="#" xsi:type="PQ" value="58" /> <interpretationCode codeSystem="local" code ="*" /> <referenceRange> <observationRange> < text>250-2400</text> </observationRange> </referenceRange> </observation> </component> <component> <observation moodCode="EVN" classCode="OBS"> <templateId root= "216.840.1.527574.10..22.4.2" /> <id nullFlavor="NA" /> < code codeSystem="local" code="SO43OIQ" displayName="CD 3/8 POSITIVE" /> <statusCode code="completed" /> <effectiveTime value="584740023518" / > <value unit="%" xsi:type="PQ" value="48" /> < interpretationCode codeSystem="local" code="*" /> <referenceRange> <observationRange> <text>6-41</text> </ observationRange> </referenceRange> </observation> </ component> <component> <observation moodCode="EVN" classCode="OBS"> <templateId root="216.840.1.502401.10..22.4.2" /> <id nullFlavor="NA" /> <code codeSystem="local" code="[id number]" displayName= "CD 3/8 ABSOLUTE" /> <statusCode code="completed" /> < effectiveTime value="897949468576" /> <value unit="#" xsi:type="PQ" value="146" /> <interpretationCode codeSystem="local" code="*" /> <referenceRange> <observationRange> <text>150-1800< /text> </observationRange> </referenceRange> </ observation> </component> <component> <observation moodCode= "EVN" classCode="OBS"> <templateId root="840.1.768022.10..22.4.2 " /> <id nullFlavor="NA" /> <code codeSystem="local" code= "[id number]" displayName="CD 4/8 RATIO" /> <statusCode code="completed" /> <effectiveTime value="367716854034" /> <value unit="" xsi: type="PQ" value="0.4" /> <interpretationCode codeSystem="local" code="* " /> <referenceRange> <observationRange> <text> 0.6-4.0</text> </observationRange> </referenceRange> </observation> </component> </organizer> </entry> <entry> < organizer moodCode="EVN" classCode="BATTERY"> <templateId root= "05.02.840.1.933408.10..22.4.1" /> <id nullFlavor="NA" /> <code codeSystem="local" code="CBCD" displayName="CBC W/DIFF" /> <statusCode code ="completed" /> <component> <observation moodCode="EVN" classCode= "OBS"> <templateId root="05.02.840.1.629573.10...4.2" /> < id nullFlavor="NA" /> <code codeSystem="local" code="CBCCOM" displayName="COMMENT" /> <statusCode code="completed" /> < effectiveTime value="020383810089" /> <value unit="" xsi:type="PQ" value="REVIEWED" /> <referenceRange> <observationRange> <text /> </observationRange> </referenceRange> </observation> </component> <component> <observation moodCode="EVN" classCode="OBS"> <templateId root= "05.02.840.1.342513...4.2" /> <id nullFlavor="NA" /> < code codeSystem="local" code="GR#" displayName="GRANULOCYTE #" /> < statusCode code="completed" /> <effectiveTime value="" /> <value unit="k/cumm" xsi:type="PQ" value="3.4" /> < referenceRange> <observationRange> <text>2.0-9.0</text> </observationRange> </referenceRange> </observation > </component> <component> <observation moodCode="EVN" classCode="OBS"> <templateId root="2.16.840.1.798751.01.03.22.4.2" /> <id nullFlavor="NA" /> <code codeSystem="local" code="GR% " displayName="GRANULOCYTE %" /> <statusCode code="completed" /> <effectiveTime value="" /> <value unit="%" xsi: type="PQ" value="91" /> <interpretationCode codeSystem="local" code="* " /> <referenceRange> <observationRange> <text> 50-75</text> </observationRange> </referenceRange> </ observation> </component> <component> <observation moodCode= "EVN" classCode="OBS"> <templateId root="216.840.1.418081.10.4.2 " /> <id nullFlavor="NA" /> <code codeSystem="local" code="LY# " displayName="LYMPHOCYTE #" /> <statusCode code="completed" /> <effectiveTime value="628616056815" /> <value unit="k/cumm" xsi:type ="PQ" value="0.3" /> <interpretationCode codeSystem="local" code="*" / > <referenceRange> <observationRange> <text>1.0 -4.0</text> </observationRange> </referenceRange> </ observation> </component> <component> <observation moodCode= "EVN" classCode="OBS"> <templateId root="05.02.840.1.086317.10.20.22.4.2 " /> <id nullFlavor="NA" /> <code codeSystem="local" code="LY& #37;" displayName="LYMPHOCYTE %" /> <statusCode code="completed" / > <effectiveTime value="378317961105" /> <value unit="%" xsi:type="PQ" value="8" /> <interpretationCode codeSystem="local" code= "*" /> <referenceRange> <observationRange> < text>20-30</text> </observationRange> </referenceRange> </observation> </component> <component> <observation moodCode="EVN" classCode="OBS"> <templateId root= "840.1.189492.1022.4.2" /> <id nullFlavor="NA" /> < code codeSystem="local" code="MCH" displayName="MEAN CELL HGB" /> < statusCode code="completed" /> <effectiveTime value="217668234026" /> <value unit="pg" xsi:type="PQ" value="28.3" /> <referenceRange > <observationRange> <text>27.0-33.0</text> < /observationRange> </referenceRange> </observation> </ component> <component> <observation moodCode="EVN" classCode="OBS"> <templateId root="05.02.840.1.914424.10.20.22.4.2" /> <id nullFlavor="NA" /> <code codeSystem="local" code="MCHC" displayName= "MEAN CELL HGB CONCENTRATION" /> <statusCode code="completed" /> <effectiveTime value="" /> <value unit="g/dL" xsi:type= "PQ" value="32.2" /> <referenceRange> <observationRange> <text>32.0-37.0</text> </observationRange> </ referenceRange> </observation> </component> <component> <observation moodCode="EVN" classCode="OBS"> <templateId root= "16.840.1.557518.10.20.22.4.2" /> <id nullFlavor="NA" /> < code codeSystem="local" code="MCV" displayName="MEAN CELL VOLUME" /> < statusCode code="completed" /> <effectiveTime value="" /> <value unit="fl" xsi:type="PQ" value="87.8" /> <referenceRange > <observationRange> <text>80.0-100.0</text> </observationRange> </referenceRange> </observation> </ component> <component> <observation moodCode="EVN" classCode="OBS"> <templateId root="16.840.1.261978.10..22.4.2" /> <id nullFlavor="NA" /> <code codeSystem="local" code="MO#" displayName= "MONOCYTE #" /> <statusCode code="completed" /> < effectiveTime value="" /> <value unit="k/cumm" xsi:type="PQ " value="0.0" /> <interpretationCode codeSystem="local" code="*" /> <referenceRange> <observationRange> <text>0.1-1.0 </text> </observationRange> </referenceRange> </ observation> </component> <component> <observation moodCode= "EVN" classCode="OBS"> <templateId root="216.840.1.083083.10.20.22.4.2 " /> <id nullFlavor="NA" /> <code codeSystem="local" code="MO& #37;" displayName="MONOCYTE %" /> <statusCode code="completed" /> <effectiveTime value="227639628699" /> <value unit="%" xsi :type="PQ" value="1" /> <interpretationCode codeSystem="local" code="* " /> <referenceRange> <observationRange> <text> 4-6</text> </observationRange> </referenceRange> </ observation> </component> <component> <observation moodCode= "EVN" classCode="OBS"> <templateId root="216.840.1.807091.10..22.4.2 " /> <id nullFlavor="NA" /> <code codeSystem="local" code="RBC " displayName="RED BLOOD CELL" /> <statusCode code="completed" /> <effectiveTime value="682699370171" /> <value unit="m/cumm" xsi: type="PQ" value="4.03" /> <referenceRange> <observationRange > <text>4.00-6.00</text> </observationRange> </ referenceRange> </observation> </component> <component> <observation moodCode="EVN" classCode="OBS"> <templateId root= "16.840.1.250521.10.20.22.4.2" /> <id nullFlavor="NA" /> < code codeSystem="local" code="RDW" displayName="RED CELL DISTRIBUTION WIDTH" /> <statusCode code="completed" /> <effectiveTime value= "518221762245" /> <value unit="%" xsi:type="PQ" value="16.1" /> <interpretationCode codeSystem="local" code="*" /> < referenceRange> <observationRange> <text>11.0-15.6</text > </observationRange> </referenceRange> </observation > </component> <component> <observation moodCode="EVN" classCode="OBS"> <templateId root="216.840.1.562802...22.4.2" /> <id nullFlavor="NA" /> <code codeSystem="local" code="WBC" displayName="WHITE BLOOD CELL" /> <statusCode code="completed" /> <effectiveTime value="008947780221" /> <value unit="k/cumm" xsi: type="PQ" value="3.8" /> <interpretationCode codeSystem="local" code="* " /> <referenceRange> <observationRange> <text> 5.0-10.0</text> </observationRange> </referenceRange> </observation> </component> <component> <observation moodCode ="EVN" classCode="OBS"> <templateId root= "05.02.840.1.946501.22.4.2" /> <id nullFlavor="NA" /> < code codeSystem="local" code="HGBT" displayName="HEMOGLOBIN" /> < statusCode code="completed" /> <effectiveTime value="699802696309" /> <value unit="gm/dL" xsi:type="PQ" value="11.4" /> < interpretationCode codeSystem="local" code="*" /> <referenceRange> <observationRange> <text>12.0-16.0</text> </ observationRange> </referenceRange> </observation> </ component> <component> <observation moodCode="EVN" classCode="OBS"> <templateId root="216.840.1.543149.01.03.22.4.2" /> <id nullFlavor="NA" /> <code codeSystem="local" code="HCTT" displayName= "HEMATOCRIT" /> <statusCode code="completed" /> < effectiveTime value="" /> <value unit="%" xsi:type="PQ " value="35.4" /> <interpretationCode codeSystem="local" code="*" /> <referenceRange> <observationRange> <text>37.0- 47.0</text> </observationRange> </referenceRange> </ observation> </component> <component> <observation moodCode= "EVN" classCode="OBS"> <templateId root="840.1.686324.01.03.22.4.2 " /> <id nullFlavor="NA" /> <code codeSystem="local" code="PLT " displayName="PLATELET COUNT" /> <statusCode code="completed" /> <effectiveTime value="" /> <value unit="k/cumm" xsi: type="PQ" value="323" /> <referenceRange> <observationRange > <text>150-400</text> </observationRange> </ referenceRange> </observation> </component> </organizer> </entry > <entry> <organizer moodCode="EVN" classCode="BATTERY"> <templateId root="840.1.338890.01.03.22.4.1" /> <id nullFlavor="NA" /> <code codeSystem="local" code="METABC" displayName="METABOLIC PANEL, COMPREHN" /> <statusCode code="completed" /> <component> <observation moodCode= "EVN" classCode="OBS"> <templateId root="840.1.783470.01.03.22.4.2 " /> <id nullFlavor="NA" /> <code codeSystem="local" code="K" displayName="POTASSIUM" /> <statusCode code="completed" /> < effectiveTime value="515757266458" /> <value unit="mmol/L" xsi:type="PQ " value="3.5" /> <referenceRange> <observationRange> <text>3.5-5.3</text> </observationRange> </ referenceRange> </observation> </component> <component> <observation moodCode="EVN" classCode="OBS"> <templateId root= "2.16.840.1.443690.10..22.4.2" /> <id nullFlavor="NA" /> < code codeSystem="local" code="eGFR" displayName="EST GFR (MDRD)" /> < statusCode code="completed" /> <effectiveTime value="830100444755" /> <value unit="mL/min" xsi:type="PQ" value="> 60" /> < referenceRange> <observationRange> <text>> 59</text> </observationRange> </referenceRange> </observation > </component> <component> <observation moodCode="EVN" classCode="OBS"> <templateId root="2.16.840.1.822747.10..22.4.2" /> <id nullFlavor="NA" /> <code codeSystem="local" code="GAP" displayName="ANION GAP" /> <statusCode code="completed" /> < effectiveTime value="301349400788" /> <value unit="mmol/L" xsi:type="PQ " value="7" /> <referenceRange> <observationRange> <text>5-15</text> </observationRange> </referenceRange > </observation> </component> <component> <observation moodCode="EVN" classCode="OBS"> <templateId root= "05.02.840.1.435966.10..22.4.2" /> <id nullFlavor="NA" /> < code codeSystem="local" code="eCrCl" displayName="EST CrCl (CG)" /> < statusCode code="completed" /> <effectiveTime value="323030906112" /> <value unit="mL/min" xsi:type="PQ" value="> 60" /> < referenceRange> <observationRange> <text>> 59</text> </observationRange> </referenceRange> </observation > </component> <component> <observation moodCode="EVN" classCode="OBS"> <templateId root="05.02.840.1.216587.10.4.2" /> <id nullFlavor="NA" /> <code codeSystem="local" code="GLU" displayName="GLUCOSE" /> <statusCode code="completed" /> < effectiveTime value="" /> <value unit="mg/dL" xsi:type="PQ " value="230" /> <interpretationCode codeSystem="local" code="*" /> <referenceRange> <observationRange> <text>70-99</ text> </observationRange> </referenceRange> </ observation> </component> <component> <observation moodCode= "EVN" classCode="OBS"> <templateId root="05.02.840.1.061229.10.22.4.2 " /> <id nullFlavor="NA" /> <code codeSystem="local" code="CA " displayName="CALCIUM" /> <statusCode code="completed" /> < effectiveTime value="965092882238" /> <value unit="mg/dL" xsi:type="PQ " value="8.3" /> <interpretationCode codeSystem="local" code="*" /> <referenceRange> <observationRange> <text>8.5- 10.1</text> </observationRange> </referenceRange> </ observation> </component> <component> <observation moodCode= "EVN" classCode="OBS"> <templateId root="05.02.840.1.556938.10.20.22.4.2 " /> <id nullFlavor="NA" /> <code codeSystem="local" code="BUN " displayName="BLOOD UREA NITROGEN" /> <statusCode code="completed" /> <effectiveTime value="731493271023" /> <value unit="mg/dL" xsi:type="PQ" value="12" /> <referenceRange> < observationRange> <text>7-20</text> </observationRange> </referenceRange> </observation> </component> < component> <observation moodCode="EVN" classCode="OBS"> < templateId root="05.02.840.1.301839.10.22.4.2" /> <id nullFlavor="NA " /> <code codeSystem="local" code="CREAT" displayName="CREATININE" /> <statusCode code="completed" /> <effectiveTime value= "072443064134" /> <value unit="mg/dL" xsi:type="PQ" value="0.6" /> <referenceRange> <observationRange> <text>0.6-1.0< /text> </observationRange> </referenceRange> </ observation> </component> <component> <observation moodCode= "EVN" classCode="OBS"> <templateId root="05.02.840.1.919666.10.20.22.4.2 " /> <id nullFlavor="NA" /> <code codeSystem="local" code="NA " displayName="SODIUM" /> <statusCode code="completed" /> < effectiveTime value="950472354167" /> <value unit="mmol/L" xsi:type="PQ " value="141" /> <referenceRange> <observationRange> <text>135-148</text> </observationRange> </ referenceRange> </observation> </component> <component> <observation moodCode="EVN" classCode="OBS"> <templateId root= "216.840.1.544141.10.22.4.2" /> <id nullFlavor="NA" /> < code codeSystem="local" code="CL" displayName="CHLORIDE" /> < statusCode code="completed" /> <effectiveTime value="945140638814" /> <value unit="mmol/L" xsi:type="PQ" value="108" /> < referenceRange> <observationRange> <text>98-110</text> </observationRange> </referenceRange> </observation> </component> <component> <observation moodCode="EVN" classCode ="OBS"> <templateId root="05.02.840.1.184847..22.4.2" /> < id nullFlavor="NA" /> <code codeSystem="local" code="AST" displayName= "AST/SGOT" /> <statusCode code="completed" /> <effectiveTime value="730980578676" /> <value unit="Units/L" xsi:type="PQ" value="13" /> <referenceRange> <observationRange> <text>10 -37</text> </observationRange> </referenceRange> </ observation> </component> <component> <observation moodCode= "EVN" classCode="OBS"> <templateId root="216.840.1.537054.10.20.22.4.2 " /> <id nullFlavor="NA" /> <code codeSystem="local" code="ALT " displayName="ALT/SGPT" /> <statusCode code="completed" /> < effectiveTime value="337048203244" /> <value unit="Units/L" xsi:type= "PQ" value="21" /> <referenceRange> <observationRange> <text>< 66</text> </observationRange> </ referenceRange> </observation> </component> <component> <observation moodCode="EVN" classCode="OBS"> <templateId root= "216.840.1.257910.10..22.4.2" /> <id nullFlavor="NA" /> < code codeSystem="local" code="CO2" displayName="CARBON DIOXIDE" /> < statusCode code="completed" /> <effectiveTime value="743570789442" /> <value unit="mmol/L" xsi:type="PQ" value="26" /> < referenceRange> <observationRange> <text>21-32</text> </observationRange> </referenceRange> </observation> </component> <component> <observation moodCode="EVN" classCode= "OBS"> <templateId root="216.840.1.546138.10.20.22.4.2" /> < id nullFlavor="NA" /> <code codeSystem="local" code="TP" displayName= "TOTAL PROTEIN" /> <statusCode code="completed" /> < effectiveTime value="623771583931" /> <value unit="gm/dL" xsi:type="PQ " value="6.0" /> <interpretationCode codeSystem="local" code="*" /> <referenceRange> <observationRange> <text>6.4-8.2 </text> </observationRange> </referenceRange> </ observation> </component> <component> <observation moodCode= "EVN" classCode="OBS"> <templateId root="16.840.1.813583.10..22.4.2 " /> <id nullFlavor="NA" /> <code codeSystem="local" code="ALB " displayName="ALBUMIN" /> <statusCode code="completed" /> < effectiveTime value="" /> <value unit="gm/dL" xsi:type="PQ " value="2.4" /> <interpretationCode codeSystem="local" code="*" /> <referenceRange> <observationRange> <text>3.4-5.0 </text> </observationRange> </referenceRange> </ observation> </component> <component> <observation moodCode= "EVN" classCode="OBS"> <templateId root="16.840.1.660793.01.03.22.4.2 " /> <id nullFlavor="NA" /> <code codeSystem="local" code= "BILTOT" displayName="BILI TOTAL" /> <statusCode code="completed" /> <effectiveTime value="" /> <value unit="mg/dL" xsi: type="PQ" value="< 0.1" /> <referenceRange> < observationRange> <text>0.0-1.0</text> </ observationRange> </referenceRange> </observation> </ component> <component> <observation moodCode="EVN" classCode="OBS"> <templateId root="16.840.1.409084.10..22.4.2" /> <id nullFlavor="NA" /> <code codeSystem="local" code="ALKP" displayName= "ALKALINE PHOSPHATASE TOTAL" /> <statusCode code="completed" /> <effectiveTime value="" /> <value unit="IU/L" xsi:type= "PQ" value="69" /> <referenceRange> <observationRange> <text>45-117</text> </observationRange> </ referenceRange> </observation> </component> </organizer> </entry > <entry> <organizer moodCode="EVN" classCode="BATTERY"> <templateId root="05.02.840.1.707440...4.1" /> <id nullFlavor="NA" /> <code codeSystem="local" code="PHOS" displayName="PHOSPHORUS" /> <statusCode code ="completed" /> <component> <observation moodCode="EVN" classCode= "OBS"> <templateId root="05.02.840.1.124207.01.03.22.4.2" /> < id nullFlavor="NA" /> <code codeSystem="local" code="PHOS" displayName= "PHOSPHORUS" /> <statusCode code="completed" /> < effectiveTime value="586864575935" /> <value unit="mg/dL" xsi:type="PQ " value="2.3" /> <interpretationCode codeSystem="local" code="*" /> <referenceRange> <observationRange> <text>2.5-4.9 </text> </observationRange> </referenceRange> </ observation> </component> </organizer> </entry> <entry> <organizer moodCode="EVN" classCode="BATTERY"> <templateId root= "840.1.626344.22.4.1" /> <id nullFlavor="NA" /> <code codeSystem="local" code="MAG" displayName="MAGNESIUM" /> <statusCode code= "completed" /> <component> <observation moodCode="EVN" classCode= "OBS"> <templateId root="840.1.177520.01.03.22.4.2" /> < id nullFlavor="NA" /> <code codeSystem="local" code="MAG" displayName= "MAGNESIUM" /> <statusCode code="completed" /> <effectiveTime value="645305642011" /> <value unit="mg/dL" xsi:type="PQ" value="1.8" / > <referenceRange> <observationRange> <text>1.8 -2.4</text> </observationRange> </referenceRange> </ observation> </component> </organizer> </entry> <entry> <organizer moodCode="EVN" classCode="BATTERY"> <templateId root= "216.840.1.677274.10...4.1" /> <id nullFlavor="NA" /> <code codeSystem="local" code="LIP" displayName="LIPASE" /> <statusCode code= "completed" /> <component> <observation moodCode="EVN" classCode= "OBS"> <templateId root="16.840.1.811818.10...4.2" /> < id nullFlavor="NA" /> <code codeSystem="local" code="LIP" displayName= "LIPASE" /> <statusCode code="completed" /> <effectiveTime value="101980148193" /> <value unit="Units/L" xsi:type="PQ" value="150 " /> <referenceRange> <observationRange> <text> 73-393</text> </observationRange> </referenceRange> < /observation> </component> </organizer> </entry> <entry> < organizer moodCode="EVN" classCode="BATTERY"> <templateId root= "16.840.1.994071.10...4.1" /> <id nullFlavor="NA" /> <code codeSystem="local" code="VRP" displayName="VIRUS RESPIRATORY PROFILE" /> < statusCode code="completed" /> <component> <observation moodCode= "EVN" classCode="OBS"> <templateId root="2.16.840.1.870031.10.20.22.4.2 " /> <id nullFlavor="NA" /> <code codeSystem="local" code="MB " displayName="Microbiology" /> <statusCode code="completed" /> <effectiveTime value="767911942671" /> <value xsi:type="ST" value="< pre><b>RESPIRATORY PROFILE</b> See BelowRESPIRATORY PROFILE(F) Kasandra Date /Time: 11/22/2015 08:33 Suzie Date/Time: 2015 09:59SOURCE: NASOPHARYNGEALSPEC DESC: ADENOVIRUSNOT DETECTEDBORDETELLA PERTUSSISNOT DETECTEDCHLAMYDIA PNEUMONIAENOT DETECTEDCORONAVIRUS 229ENOT DETECTEDCORONAVIRUS NDS2GMD DETECTEDCORONAVIRUS CF59PAO DETECTEDCORONAVIRUS IT10TKJ DETECTEDHUMAN METAPNEUMOVIRUSNOT DETECTEDINFLUENZA A 2009 H1NOT DETECTEDINFLUENZA A H1NOT DETECTEDINFLUENZA A H3NOT DETECTEDINFLUENZA ANOT DETECTEDINFLUENZA BNOT DETECTEDMYCOPLASMA PNEUMONIAENOT DETECTEDPARAINFLUENZA 1NOT DETECTEDPARAINFLUENZA 2NOT DETECTEDPARAINFLUENZA 3NOT DETECTEDPARAINFLUENZA 4NOT DETECTEDRHINOVIRUS/ENTEROVIRUSNOT DETECTEDRSVNOT DETECTEDCHI [facility] [place] [address]</pre>" /> <referenceRange> <observationRange> <text /> </observationRange> </referenceRange> </observation> </ component> </organizer> </entry> <entry> <organizer moodCode="EVN" classCode="BATTERY"> <templateId root="2.16.840.1.341690.10.20.22.4.1" /> <id nullFlavor="NA" /> <code codeSystem="local" code="CBC" displayName ="CBC" /> <statusCode code="completed" /> <component> < observation moodCode="EVN" classCode="OBS"> <templateId root= "216.840.1.244518.10.4.2" /> <id nullFlavor="NA" /> < code codeSystem="local" code="MCH" displayName="MEAN CELL HGB" /> < statusCode code="completed" /> <effectiveTime value="" /> <value unit="pg" xsi:type="PQ" value="28.5" /> <referenceRange > <observationRange> <text>27.0-33.0</text> < /observationRange> </referenceRange> </observation> </ component> <component> <observation moodCode="EVN" classCode="OBS"> <templateId root="05.02.840.1.629765.01.03.22.4.2" /> <id nullFlavor="NA" /> <code codeSystem="local" code="[facility]" displayName= "MEAN CELL HGB CONCENTRATION" /> <statusCode code="completed" /> <effectiveTime value="" /> <value unit="g/dL" xsi:type= "PQ" value="32.4" /> <referenceRange> <observationRange> <text>32.0-37.0</text> </observationRange> </ referenceRange> </observation> </component> <component> <observation moodCode="EVN" classCode="OBS"> <templateId root= "[id number]" /> <id nullFlavor="NA" /> < code codeSystem="local" code="MCV" displayName="MEAN CELL VOLUME" /> < statusCode code="completed" /> <effectiveTime value="" /> <value unit="fl" xsi:type="PQ" value="88.1" /> <referenceRange > <observationRange> <text>80.0-100.0</text> </observationRange> </referenceRange> </observation> </ component> <component> <observation moodCode="EVN" classCode="OBS"> <templateId root="2.16.840.1.081268.22.4.2" /> <id nullFlavor="NA" /> <code codeSystem="local" code="RBC" displayName=" RED BLOOD CELL" /> <statusCode code="completed" /> < effectiveTime value="" /> <value unit="m/cumm" xsi:type="PQ " value="3.86" /> <interpretationCode codeSystem="local" code="*" /> <referenceRange> <observationRange> <text>4.00- 6.00</text> </observationRange> </referenceRange> </ observation> </component> <component> <observation moodCode= "EVN" classCode="OBS"> <templateId root="216.840.1.358371.01.03.22.4.2 " /> <id nullFlavor="NA" /> <code codeSystem="local" code="RDW " displayName="RED CELL DISTRIBUTION WIDTH" /> <statusCode code= "completed" /> <effectiveTime value="" /> <value unit="%" xsi:type="PQ" value="16.1" /> <interpretationCode codeSystem="local" code="*" /> <referenceRange> < observationRange> <text>11.0-15.6</text> </ observationRange> </referenceRange> </observation> </ component> <component> <observation moodCode="EVN" classCode="OBS"> <templateId root="216.840.1.166457.102022.4.2" /> <id nullFlavor="NA" /> <code codeSystem="local" code="WBC" displayName= "WHITE BLOOD CELL" /> <statusCode code="completed" /> < effectiveTime value="" /> <value unit="k/cumm" xsi:type="PQ " value="14.5" /> <interpretationCode codeSystem="local" code="*" /> <referenceRange> <observationRange> <text>5.0- 10.0</text> </observationRange> </referenceRange> </ observation> </component> <component> <observation moodCode= "EVN" classCode="OBS"> <templateId root="05.02.840.1.065159.1022.4.2 " /> <id nullFlavor="NA" /> <code codeSystem="local" code= "HGBT" displayName="HEMOGLOBIN" /> <statusCode code="completed" /> <effectiveTime value="" /> <value unit="gm/dL" xsi: type="PQ" value="11.0" /> <interpretationCode codeSystem="local" code= "*" /> <referenceRange> <observationRange> < text>12.0-16.0</text> </observationRange> </referenceRange> </observation> </component> <component> <observation moodCode="EVN" classCode="OBS"> <templateId root= "05.02.840.1.086647.10.2022.4.2" /> <id nullFlavor="NA" /> < code codeSystem="local" code="HCTT" displayName="HEMATOCRIT" /> < statusCode code="completed" /> <effectiveTime value="" /> <value unit="%" xsi:type="PQ" value="34.0" /> < interpretationCode codeSystem="local" code="*" /> <referenceRange> <observationRange> <text>37.0-47.0</text> </ observationRange> </referenceRange> </observation> </ component> <component> <observation moodCode="EVN" classCode="OBS"> <templateId root="16.840.1.070936.10..22.4.2" /> <id nullFlavor="NA" /> <code codeSystem="local" code="PLT" displayName= "PLATELET COUNT" /> <statusCode code="completed" /> < effectiveTime value="[id number]" /> <value unit="k/cumm" xsi:type="PQ " value="371" /> <referenceRange> <observationRange> <text>150-400</text> </observationRange> </ referenceRange> </observation> </component> </organizer> </entry > <entry> <organizer moodCode="EVN" classCode="BATTERY"> <templateId root="05.02.840.1.922648.10..22.4.1" /> <id nullFlavor="NA" /> <code codeSystem="local" code="RENAL" displayName="RENAL FUNCTION PANEL" /> < statusCode code="completed" /> <component> <observation moodCode= "EVN" classCode="OBS"> <templateId root="05.02.840.1.307653.10..22.4.2 " /> <id nullFlavor="NA" /> <code codeSystem="local" code="K" displayName="POTASSIUM" /> <statusCode code="completed" /> < effectiveTime value="[id number]" /> <value unit="mmol/L" xsi:type="PQ " value="4.3" /> <referenceRange> <observationRange> <text>3.5-5.3</text> </observationRange> </ referenceRange> </observation> </component> <component> <observation moodCode="EVN" classCode="OBS"> <templateId root= "16.840.1.779886.10.4.2" /> <id nullFlavor="NA" /> < code codeSystem="local" code="eGFR" displayName="EST GFR (MDRD)" /> < statusCode code="completed" /> <effectiveTime value="" /> <value unit="mL/min" xsi:type="PQ" value="> 60" /> < referenceRange> <observationRange> <text>> 59</text> </observationRange> </referenceRange> </observation > </component> <component> <observation moodCode="EVN" classCode="OBS"> <templateId root="05.02.840.1.446753.01.03.22.4.2" /> <id nullFlavor="NA" /> <code codeSystem="local" code="GAP" displayName="ANION GAP" /> <statusCode code="completed" /> < effectiveTime value="" /> <value unit="mmol/L" xsi:type="PQ " value="7" /> <referenceRange> <observationRange> <text>5-15</text> </observationRange> </referenceRange > </observation> </component> <component> <observation moodCode="EVN" classCode="OBS"> <templateId root= "05.02.840.1.580984.01.03.22.4.2" /> <id nullFlavor="NA" /> < code codeSystem="local" code="eCrCl" displayName="EST CrCl (CG)" /> < statusCode code="completed" /> <effectiveTime value="" /> <value unit="mL/min" xsi:type="PQ" value="> 60" /> < referenceRange> <observationRange> <text>> 59</text> </observationRange> </referenceRange> </observation > </component> <component> <observation moodCode="EVN" classCode="OBS"> <templateId root="216.840.1.979008.22.4.2" /> <id nullFlavor="NA" /> <code codeSystem="local" code="GLU" displayName="GLUCOSE" /> <statusCode code="completed" /> < effectiveTime value="" /> <value unit="mg/dL" xsi:type="PQ " value="156" /> <interpretationCode codeSystem="local" code="*" /> <referenceRange> <observationRange> <text>70-99</ text> </observationRange> </referenceRange> </ observation> </component> <component> <observation moodCode= "EVN" classCode="OBS"> <templateId root="05.02.840.1.564538.01.03.22.4.2 " /> <id nullFlavor="NA" /> <code codeSystem="local" code="CA " displayName="CALCIUM" /> <statusCode code="completed" /> < effectiveTime value="" /> <value unit="mg/dL" xsi:type="PQ " value="8.3" /> <interpretationCode codeSystem="local" code="*" /> <referenceRange> <observationRange> <text>8.5- 10.1</text> </observationRange> </referenceRange> </ observation> </component> <component> <observation moodCode= "EVN" classCode="OBS"> <templateId root="05.02.840.1.753713.01.03.22.4.2 " /> <id nullFlavor="NA" /> <code codeSystem="local" code="BUN " displayName="BLOOD UREA NITROGEN" /> <statusCode code="completed" /> <effectiveTime value="" /> <value unit="mg/dL" xsi:type="PQ" value="10" /> <referenceRange> < observationRange> <text>7-20</text> </observationRange> </referenceRange> </observation> </component> < component> <observation moodCode="EVN" classCode="OBS"> < templateId root="2.16.840.1.724486.01.03.22.4.2" /> <id nullFlavor="NA " /> <code codeSystem="local" code="CREAT" displayName="CREATININE" /> <statusCode code="completed" /> <effectiveTime value= "" /> <value unit="mg/dL" xsi:type="PQ" value="0.5" /> <interpretationCode codeSystem="local" code="*" /> < referenceRange> <observationRange> <text>0.6-1.0</text> </observationRange> </referenceRange> </observation > </component> <component> <observation moodCode="EVN" classCode="OBS"> <templateId root="2.16.840.1.598090.01.03.22.4.2" /> <id nullFlavor="NA" /> <code codeSystem="local" code="NA" displayName="SODIUM" /> <statusCode code="completed" /> < effectiveTime value="" /> <value unit="mmol/L" xsi:type="PQ " value="142" /> <referenceRange> <observationRange> <text>135-148</text> </observationRange> </ referenceRange> </observation> </component> <component> <observation moodCode="EVN" classCode="OBS"> <templateId root= "216.840.1.309521.10..22.4.2" /> <id nullFlavor="NA" /> < code codeSystem="local" code="CL" displayName="CHLORIDE" /> < statusCode code="completed" /> <effectiveTime value="" /> <value unit="mmol/L" xsi:type="PQ" value="106" /> < referenceRange> <observationRange> <text>98-110</text> </observationRange> </referenceRange> </observation> </component> <component> <observation moodCode="EVN" classCode ="OBS"> <templateId root="16.840.1.854396.10..22.4.2" /> < id nullFlavor="NA" /> <code codeSystem="local" code="CO2" displayName= "CARBON DIOXIDE" /> <statusCode code="completed" /> < effectiveTime value="" /> <value unit="mmol/L" xsi:type="PQ " value="29" /> <referenceRange> <observationRange> <text>21-32</text> </observationRange> </ referenceRange> </observation> </component> <component> <observation moodCode="EVN" classCode="OBS"> <templateId root= "16.840.1.885975.10..22.4.2" /> <id nullFlavor="NA" /> < code codeSystem="local" code="ALB" displayName="ALBUMIN" /> < statusCode code="completed" /> <effectiveTime value="" /> <value unit="gm/dL" xsi:type="PQ" value="2.2" /> < interpretationCode codeSystem="local" code="*" /> <referenceRange> <observationRange> <text>3.4-5.0</text> </ observationRange> </referenceRange> </observation> </ component> <component> <observation moodCode="EVN" classCode="OBS"> <templateId root="05.02.840.1.341173.10.20.22.4.2" /> <id nullFlavor="NA" /> <code codeSystem="local" code="PHOS" displayName= "PHOSPHORUS" /> <statusCode code="completed" /> < effectiveTime value="" /> <value unit="mg/dL" xsi:type="PQ " value="2.6" /> <referenceRange> <observationRange> <text>2.5-4.9</text> </observationRange> </ referenceRange> </observation> </component> </organizer> </entry > <entry> <organizer moodCode="EVN" classCode="BATTERY"> <templateId root="05.02.840.1.904595.10...4.1" /> <id nullFlavor="NA" /> <code codeSystem="local" code="MAG" displayName="MAGNESIUM" /> <statusCode code= "completed" /> <component> <observation moodCode="EVN" classCode= "OBS"> <templateId root="05.02.840.1.309493.10..22.4.2" /> < id nullFlavor="NA" /> <code codeSystem="local" code="MAG" displayName= "MAGNESIUM" /> <statusCode code="completed" /> <effectiveTime value="" /> <value unit="mg/dL" xsi:type="PQ" value="1.9" / > <referenceRange> <observationRange> <text>1.8 -2.4</text> </observationRange> </referenceRange> </ observation> </component> </organizer> </entry> <entry> <organizer moodCode="EVN" classCode="BATTERY"> <templateId root= "2.16.840.1.246451.10..22.4.1" /> <id nullFlavor="NA" /> <code codeSystem="local" code="RENAL" displayName="RENAL FUNCTION PANEL" /> < statusCode code="completed" /> <component> <observation moodCode= "EVN" classCode="OBS"> <templateId root="2.16.840.1.885386.10...4.2 " /> <id nullFlavor="NA" /> <code codeSystem="local" code="K" displayName="POTASSIUM" /> <statusCode code="completed" /> < effectiveTime value="" /> <value unit="mmol/L" xsi:type="PQ " value="3.7" /> <referenceRange> <observationRange> <text>3.5-5.3</text> </observationRange> </ referenceRange> </observation> </component> <component> <observation moodCode="EVN" classCode="OBS"> <templateId root= "216.840.1.059263.10..22.4.2" /> <id nullFlavor="NA" /> < code codeSystem="local" code="eGFR" displayName="EST GFR (MDRD)" /> < statusCode code="completed" /> <effectiveTime value="" /> <value unit="mL/min" xsi:type="PQ" value="> 60" /> < referenceRange> <observationRange> <text>> 59</text> </observationRange> </referenceRange> </observation > </component> <component> <observation moodCode="EVN" classCode="OBS"> <templateId root="16.840.1.260871.10..22.4.2" /> <id nullFlavor="NA" /> <code codeSystem="local" code="GAP" displayName="ANION GAP" /> <statusCode code="completed" /> < effectiveTime value="" /> <value unit="mmol/L" xsi:type="PQ " value="2" /> <interpretationCode codeSystem="local" code="*" /> <referenceRange> <observationRange> <text>5-15</ text> </observationRange> </referenceRange> </ observation> </component> <component> <observation moodCode= "EVN" classCode="OBS"> <templateId root="16.840.1.443248...4.2 " /> <id nullFlavor="NA" /> <code codeSystem="local" code= "eCrCl" displayName="EST CrCl (CG)" /> <statusCode code="completed" /> <effectiveTime value="" /> <value unit="mL/min" xsi:type="PQ" value="> 60" /> <referenceRange> < observationRange> <text>> 59</text> </ observationRange> </referenceRange> </observation> </ component> <component> <observation moodCode="EVN" classCode="OBS"> <templateId root="05.02.840.1.828704.10.20.22.4.2" /> <id nullFlavor="NA" /> <code codeSystem="local" code="GLU" displayName= "GLUCOSE" /> <statusCode code="completed" /> <effectiveTime value="" /> <value unit="mg/dL" xsi:type="PQ" value="98" / > <referenceRange> <observationRange> <text>70- 99</text> </observationRange> </referenceRange> </ observation> </component> <component> <observation moodCode= "EVN" classCode="OBS"> <templateId root="05.02.840.1.047350.10.20.22.4.2 " /> <id nullFlavor="NA" /> <code codeSystem="local" code="CA " displayName="CALCIUM" /> <statusCode code="completed" /> < effectiveTime value="" /> <value unit="mg/dL" xsi:type="PQ " value="7.8" /> <interpretationCode codeSystem="local" code="*" /> <referenceRange> <observationRange> <text>8.5- 10.1</text> </observationRange> </referenceRange> </ observation> </component> <component> <observation moodCode= "EVN" classCode="OBS"> <templateId root="05.02.840.1.662879.10..22.4.2 " /> <id nullFlavor="NA" /> <code codeSystem="local" code="BUN " displayName="BLOOD UREA NITROGEN" /> <statusCode code="completed" /> <effectiveTime value="" /> <value unit="mg/dL" xsi:type="PQ" value="17" /> <referenceRange> < observationRange> <text>7-20</text> </observationRange> </referenceRange> </observation> </component> < component> <observation moodCode="EVN" classCode="OBS"> < templateId root="05.02.840.1.857065.10.20.22.4.2" /> <id nullFlavor="NA " /> <code codeSystem="local" code="CREAT" displayName="CREATININE" /> <statusCode code="completed" /> <effectiveTime value= "" /> <value unit="mg/dL" xsi:type="PQ" value="0.5" /> <interpretationCode codeSystem="local" code="*" /> < referenceRange> <observationRange> <text>0.6-1.0</text> </observationRange> </referenceRange> </observation > </component> <component> <observation moodCode="EVN" classCode="OBS"> <templateId root="16.840.1.936963.10..22.4.2" /> <id nullFlavor="NA" /> <code codeSystem="local" code="NA" displayName="SODIUM" /> <statusCode code="completed" /> < effectiveTime value="" /> <value unit="mmol/L" xsi:type="PQ " value="139" /> <referenceRange> <observationRange> <text>135-148</text> </observationRange> </ referenceRange> </observation> </component> <component> <observation moodCode="EVN" classCode="OBS"> <templateId root= "05.02.840.1.187551..22.4.2" /> <id nullFlavor="NA" /> < code codeSystem="local" code="CL" displayName="CHLORIDE" /> < statusCode code="completed" /> <effectiveTime value="[id number]" /> <value unit="mmol/L" xsi:type="PQ" value="103" /> < referenceRange> <observationRange> <text>98-110</text> </observationRange> </referenceRange> </observation> </component> <component> <observation moodCode="EVN" classCode ="OBS"> <templateId root="05.02.840.1.433100.22.4.2" /> < id nullFlavor="NA" /> <code codeSystem="local" code="CO2" displayName= "CARBON DIOXIDE" /> <statusCode code="completed" /> < effectiveTime value="" /> <value unit="mmol/L" xsi:type="PQ " value="34" /> <interpretationCode codeSystem="local" code="*" /> <referenceRange> <observationRange> <text>21-32</ text> </observationRange> </referenceRange> </ observation> </component> <component> <observation moodCode= "EVN" classCode="OBS"> <templateId root="16.840.1.748357.01.03.22.4.2 " /> <id nullFlavor="NA" /> <code codeSystem="local" code="ALB " displayName="ALBUMIN" /> <statusCode code="completed" /> < effectiveTime value="" /> <value unit="gm/dL" xsi:type="PQ " value="2.3" /> <interpretationCode codeSystem="local" code="*" /> <referenceRange> <observationRange> <text>3.4-5.0 </text> </observationRange> </referenceRange> </ observation> </component> <component> <observation moodCode= "EVN" classCode="OBS"> <templateId root="16.840.1.976372.01.03.22.4.2 " /> <id nullFlavor="NA" /> <code codeSystem="local" code= "PHOS" displayName="PHOSPHORUS" /> <statusCode code="completed" /> <effectiveTime value="" /> <value unit="mg/dL" xsi: type="PQ" value="2.8" /> <referenceRange> <observationRange > <text>2.5-4.9</text> </observationRange> </ referenceRange> </observation> </component> </organizer> </entry > <entry> <organizer moodCode="EVN" classCode="BATTERY"> <templateId root="840.1.012761.10.22.4.1" /> <id nullFlavor="NA" /> <code codeSystem="local" code="MAG" displayName="MAGNESIUM" /> <statusCode code= "completed" /> <component> <observation moodCode="EVN" classCode= "OBS"> <templateId root="840.1.535268.01.03.22.4.2" /> < id nullFlavor="NA" /> <code codeSystem="local" code="MAG" displayName= "MAGNESIUM" /> <statusCode code="completed" /> <effectiveTime value="201042588100" /> <value unit="mg/dL" xsi:type="PQ" value="2.0" / > <referenceRange> <observationRange> <text>1.8 -2.4</text> </observationRange> </referenceRange> </ observation> </component> </organizer> </entry> <entry> <organizer moodCode="EVN" classCode="BATTERY"> <templateId root= "840.1.044651.01.03.22.4.1" /> <id nullFlavor="NA" /> <code codeSystem="local" code="CBCD" displayName="CBC W/DIFF" /> <statusCode code ="completed" /> <component> <observation moodCode="EVN" classCode= "OBS"> <templateId root="05.02.840.1.257604.10..22.4.2" /> < id nullFlavor="NA" /> <code codeSystem="local" code="GR#" displayName= "GRANULOCYTE #" /> <statusCode code="completed" /> < effectiveTime value="[id number]" /> <value unit="k/cumm" xsi:type="PQ " value="7.6" /> <referenceRange> <observationRange> <text>2.0-9.0</text> </observationRange> </ referenceRange> </observation> </component> <component> <observation moodCode="EVN" classCode="OBS"> <templateId root= "216.840.1.034851.10.20.22.4.2" /> <id nullFlavor="NA" /> < code codeSystem="local" code="GR%" displayName="GRANULOCYTE %" /> <statusCode code="completed" /> <effectiveTime value="[id number] " /> <value unit="%" xsi:type="PQ" value="79" /> < interpretationCode codeSystem="local" code="*" /> <referenceRange> <observationRange> <text>50-75</text> </ observationRange> </referenceRange> </observation> </ component> <component> <observation moodCode="EVN" classCode="OBS"> <templateId root="16.840.1.068273.10.2022.4.2" /> <id nullFlavor="NA" /> <code codeSystem="local" code="LY#" displayName= "LYMPHOCYTE #" /> <statusCode code="completed" /> < effectiveTime value="357635713324" /> <value unit="k/cumm" xsi:type="PQ " value="1.2" /> <referenceRange> <observationRange> <text>1.0-4.0</text> </observationRange> </ referenceRange> </observation> </component> <component> <observation moodCode="EVN" classCode="OBS"> <templateId root= "216.840.1.436164.10..22.4.2" /> <id nullFlavor="NA" /> < code codeSystem="local" code="LY%" displayName="LYMPHOCYTE %" /> <statusCode code="completed" /> <effectiveTime value="" /> <value unit="%" xsi:type="PQ" value="13" /> < interpretationCode codeSystem="local" code="*" /> <referenceRange> <observationRange> <text>20-30</text> </ observationRange> </referenceRange> </observation> </ component> <component> <observation moodCode="EVN" classCode="OBS"> <templateId root="05.02.840.1.140682.01.03.22.4.2" /> <id nullFlavor="NA" /> <code codeSystem="local" code="MCH" displayName= "MEAN CELL HGB" /> <statusCode code="completed" /> < effectiveTime value="" /> <value unit="pg" xsi:type="PQ" value="28.4" /> <referenceRange> <observationRange> <text>27.0-33.0</text> </observationRange> </ referenceRange> </observation> </component> <component> <observation moodCode="EVN" classCode="OBS"> <templateId root= "05.02.840.1.522537.10.2022.4.2" /> <id nullFlavor="NA" /> < code codeSystem="local" code="MCHC" displayName="MEAN CELL HGB CONCENTRATION" / > <statusCode code="completed" /> <effectiveTime value= "" /> <value unit="g/dL" xsi:type="PQ" value="31.7" /> <interpretationCode codeSystem="local" code="*" /> < referenceRange> <observationRange> <text>32.0-37.0</text > </observationRange> </referenceRange> </observation > </component> <component> <observation moodCode="EVN" classCode="OBS"> <templateId root="05.02.840.1.719314.10...4.2" /> <id nullFlavor="NA" /> <code codeSystem="local" code="MCV" displayName="MEAN CELL VOLUME" /> <statusCode code="completed" /> <effectiveTime value="" /> <value unit="fl" xsi:type= "PQ" value="89.5" /> <referenceRange> <observationRange> <text>80.0-100.0</text> </observationRange> </ referenceRange> </observation> </component> <component> <observation moodCode="EVN" classCode="OBS"> <templateId root= "840.1.078096.01.03.22.4.2" /> <id nullFlavor="NA" /> < code codeSystem="local" code="MO#" displayName="MONOCYTE #" /> < statusCode code="completed" /> <effectiveTime value="" /> <value unit="k/cumm" xsi:type="PQ" value="0.6" /> < referenceRange> <observationRange> <text>0.1-1.0</text> </observationRange> </referenceRange> </observation > </component> <component> <observation moodCode="EVN" classCode="OBS"> <templateId root="05.02.840.1.983122.10..22.4.2" /> <id nullFlavor="NA" /> <code codeSystem="local" code="MO% " displayName="MONOCYTE %" /> <statusCode code="completed" /> <effectiveTime value="429296081605" /> <value unit="%" xsi: type="PQ" value="6" /> <referenceRange> <observationRange> <text>4-6</text> </observationRange> </ referenceRange> </observation> </component> <component> <observation moodCode="EVN" classCode="OBS"> <templateId root= "2.16.840.1.253420.10..22.4.2" /> <id nullFlavor="NA" /> < code codeSystem="local" code="RBC" displayName="RED BLOOD CELL" /> < statusCode code="completed" /> <effectiveTime value="296542724898" /> <value unit="m/cumm" xsi:type="PQ" value="3.73" /> < interpretationCode codeSystem="local" code="*" /> <referenceRange> <observationRange> <text>4.00-6.00</text> </ observationRange> </referenceRange> </observation> </ component> <component> <observation moodCode="EVN" classCode="OBS"> <templateId root="2.16.840.1.301936.10..22.4.2" /> <id nullFlavor="NA" /> <code codeSystem="local" code="RDW" displayName=" RED CELL DISTRIBUTION WIDTH" /> <statusCode code="completed" /> <effectiveTime value="[id number]" /> <value unit="%" xsi:type= "PQ" value="17.1" /> <interpretationCode codeSystem="local" code="*" / > <referenceRange> <observationRange> <text> 11.0-15.6</text> </observationRange> </referenceRange> </observation> </component> <component> <observation moodCode="EVN" classCode="OBS"> <templateId root= "216.840.1.082899.10..4.2" /> <id nullFlavor="NA" /> < code codeSystem="local" code="WBC" displayName="WHITE BLOOD CELL" /> < statusCode code="completed" /> <effectiveTime value="" /> <value unit="k/cumm" xsi:type="PQ" value="9.6" /> < referenceRange> <observationRange> <text>5.0-10.0</text > </observationRange> </referenceRange> </observation > </component> <component> <observation moodCode="EVN" classCode="OBS"> <templateId root="16.840.1.792669.01.03.22.4.2" /> <id nullFlavor="NA" /> <code codeSystem="local" code="HGBT" displayName="HEMOGLOBIN" /> <statusCode code="completed" /> < effectiveTime value="" /> <value unit="gm/dL" xsi:type="PQ " value="10.6" /> <interpretationCode codeSystem="local" code="*" /> <referenceRange> <observationRange> <text>12.0- 16.0</text> </observationRange> </referenceRange> </ observation> </component> <component> <observation moodCode= "EVN" classCode="OBS"> <templateId root="216.840.1.906184.10.4.2 " /> <id nullFlavor="NA" /> <code codeSystem="local" code= "HCTT" displayName="HEMATOCRIT" /> <statusCode code="completed" /> <effectiveTime value="" /> <value unit="%" xsi: type="PQ" value="33.4" /> <interpretationCode codeSystem="local" code= "*" /> <referenceRange> <observationRange> < text>37.0-47.0</text> </observationRange> </referenceRange> </observation> </component> <component> <observation moodCode="EVN" classCode="OBS"> <templateId root= "840.1.255692.10.4.2" /> <id nullFlavor="NA" /> < code codeSystem="local" code="PLT" displayName="PLATELET COUNT" /> < statusCode code="completed" /> <effectiveTime value="" /> <value unit="k/cumm" xsi:type="PQ" value="407" /> < interpretationCode codeSystem="local" code="*" /> <referenceRange> <observationRange> <text>150-400</text> </ observationRange> </referenceRange> </observation> </ component> </organizer> </entry> <entry> <organizer moodCode="EVN" classCode="BATTERY"> <templateId root="[id number]" /> <id nullFlavor="NA" /> <code codeSystem="local" code="OP" displayName= "OVA AND PARASITES" /> <statusCode code="completed" /> <component> <observation moodCode="EVN" classCode="OBS"> <templateId root= "[id number]" /> <id nullFlavor="NA" /> < code codeSystem="local" code="MB" displayName="Microbiology" /> < statusCode code="completed" /> <effectiveTime value="[id number]" /> <value xsi:type="ST" value="<pre><b>OVA AND PARASITES</b> See BelowOVA AND PARASITES(F) Kasandra Date/Time: 11/24/2015 14:00 Suzie Date/Time: 11/28/2015 14:10SOURCE: STOOLSPEC DESC: BARIUM AND MEDICATIONS SUCH ANTIBIOTICS AND NONABSORBABLEANTIDIARHEAL PREPARATIONS INTERFERE WITH THE DETECTION OFINTESTINAL PARASITES. SPECIMEN COLLECTION FOR PARASITESSHOULD BE DELAYED 7 - 14 DAYS AFTER THESE TREATMENTS.TNPTEST NOT PERFORMEDCHI [facility] [place] [address]</pre>" /> <referenceRange> <observationRange> <text /> </observationRange> </referenceRange> </observation> </ component> </organizer> </entry></section> Encounters ACCT No. Visit Date/Time Discharge Status Pt. Type Provider Facility Loc./Unit Complaint [id number] 10/03/2012 03:10:00 10/03/2012 06:49:00 DIS Emergency Joe Torres MD [facility] [id number] 09/17/2012 13:07:00 09/26/2012 14:32:00 DIS Inpatient Awa Prabhakar MD Via [address] [id number] 07/02/2012 12:33:00 07/02/2012 13:45:00 DIS Emergency Francis Carranza MD Via [facility] [id number] 07/01/2012 14:03:00 07/01/2012 15:55:00 DIS Emergency Hayden Mendoza MD [facility] [id number] 03/30/2012 15:25:00 03/30/2012 17:12:00 DIS Emergency Reza Alvarez DO Via [facility] [id number] 02/17/2012 05:55:00 02/17/2012 23:59:59 CLS Outpatient Cole Chua MD [facility] F3E [id number] 12/23/2011 07:26:00 12/23/2011 09:20:00 DIS Emergency Quan PRESTON, Luz Marina Forbes [facility] on [address] [id number] 12/22/2011 00:28:00 12/22/2011 03:05:00 DIS Emergency Khoa PRESTON, Terence Rayo [facility] on [address] [id number] 09/01/2012 17:30:00 Document Registration [id number] 08/20/2012 14:00:00 Document Registration [id number] 11/22/2015 00:47:00 11/24/2015 16:48:00 DIS Inpatient Hamlet PRESTON, [address] [id number] 11/13/2015 13:54:00 11/13/2015 15:44:00 DIS Emergency Gee PRESTON, [facility] [id number] 01/02/2015 21:27:00 01/02/2015 22:46:00 DIS Emergency Wendi PRESTON, [facility] [id number] 11/04/2014 23:46:00 11/05/2014 03:30:00 DIS Emergency Kip ANDRADE, [facility] [id number] 10/10/2014 08:41:00 10/10/2014 11:10:00 DIS Emergency Delia PRESTON, Nir [facility] [id number] 09/21/2014 13:50:00 09/21/2014 18:02:00 DIS Outpatient Jesi PRESTON, Franco [facility] [id number] 08/15/2014 15:40:00 08/15/2014 17:05:00 DIS Emergency [id number] 04/17/2014 18:03:00 04/17/2014 20:07:00 DIS Emergency Ken PRESTON, [facility] [id number] 10/18/2013 23:10:00 10/19/2013 00:54:00 DIS [id number] 02/04/2013 13:20:00 02/04/2013 14:06:00 DIS Emergency Ken PRESTON, Sudeep [facility] W.ANDERSON [id number] 01/30/2013 13:20:00 01/30/2013 14:41:00 DIS Emergency Rakan PRESTON, Yamel [facility] W.ANDERSON [id number] 04/19/2012 20:34:00 04/19/2012 22:32:00 DIS Emergency Delia PRESTON, Nir [facility] W.ANDERSON [id number] 01/07/2012 08:25:00 01/07/2012 08:25:00 DIS Outpatient Morales PRESTON, Cyndie N [facility] W.END [id number] 2011 11:06:00 2011 15:40:00 DIS Emergency Kim PRESTON, Xenia [facility] W.EDN [id number] 2011 00:00:00 2011 00:00:00 CAN Outpatient Aki PRESTON, Awa Schroeder [facility] W.RAC
[2017-03-24] MEDS ORDERED: LACTATED RINGERS 1,000 ML IV PRN (11:30)
--- NOTE | 2017-03-24 12:33 | Progress Note-Pre Operative ---
Pre-Operative Progress Note H&P Reviewed The H&P was reviewed, patient examined and no changes noted. Time Seen by Provider: 12:28 Date H&P Reviewed: Mar 24, 2017 Time H&P Reviewed: 12:31 Pre-Operative Diagnosis: change in bowel habits IDANIA CHAU DO Mar 24, 2017 12:33
[2017-03-24] MEDS ORDERED: MIDAZOLAM 2 MG/2 ML (VERSED) VIAL ONE (12:36)
[2017-03-24] MEDS ORDERED: PROPOFOL INJECTION 50 ML IV ONE (12:36)
[2017-03-24 13:20] VITALS: BP 102/60
[2017-03-24 13:45] VITALS: BP 100/50
[2017-03-24 13:55] VITALS: BP 100/50
--- NOTE | 2017-03-24 14:02 | Progress Note-Post Operative ---
Post-Operative Progess Note Surgeon (s)/Supervisor Picking Crew (s) Surgeon IDANIA CHAU DO Supervisor Picking Crew: Travis Guthrie MS III Pre-Operative Diagnosis change in bowel habits Post-Operative Diagnosis same plus internal hemorrhoids Procedure & Operative Findings Date of Procedure 03/24/17 Procedure Performed/Findings Colonoscopy Anesthesia Type IV Sedation by MEDICAL CENTER DIRECTOR Estimated Blood Loss Estimated blood loss (mL): none Specimens/Packing Specimens Removed none IDANIA CHAU DO Mar 24, 2017 14:02
--- NOTE | 2017-03-24 14:03 | Endoscopy Discharge Instruct ---
Endo Procedure/Findings Findings 1.: Internal Hemorrhoids Discharge Instructions - Activity: You might feel a little sleepy until tomorrow. This is due to the medicine you received to relax you. Until tomorrow, you should: NOT drive a car, operate machinery or power tools. NOT drink any alcoholic beverages. NOT make any important decisions or sign importortant papers. Do not return to work until tomorrow, unless otherwise instructed. Resume previous activities tomorrow. Diet: Start by taking liquids. If you tolerate liquids, advance to solid food. Notify Physician - If you experience excessive bleeding, unusual abdominal pain, fever, or chest pain, contact your doctor immediately. Follow-Up: - I have received and understand the above instructions and will call my doctor if I have any further questions. Patient Signature Date Nurse Signature Other (Relationship) IDANIA CHAU DO Mar 24, 2017 14:03
--- NOTE | 2017-03-26 00:50 | OPERATIVE REPORT ---
DATE OF SERVICE: 03/24/2017 PREOPERATIVE DIAGNOSIS: Change in bowel habits. POSTOPERATIVE DIAGNOSES: 1. Change in bowel habits. 2. Internal hemorrhoids. 3. History of HIV. PROCEDURE: Colonoscopy. SURGEON: Jon Mackay DO. EXPERIMENTAL DISPLAY BUILDER: None. ANESTHESIA: IV sedation by the PUMP ASSEMBLER. SPECIMENS: None. BLOOD LOSS: None. FLUIDS: Per anesthesia. POSTOPERATIVE CONDITION: Stable. INDICATION FOR PROCEDURE: The patient is a 46-year-old female, who has been having some abdominal pain, bowel changes and a history of HIV and needed colonoscopy for workup. She does actually have a history of AIDs as well. FINDINGS: The patient had basically normal appearing colon and some internal hemorrhoids, but no other obvious pathology. PROCEDURE NOTE: After informed consent was obtained, the patient was brought to the endoscopy suite, placed in the bed in the left lateral decubitus position. She was administered IV sedation. During the case, she was sedated by the PUMP ASSEMBLER, who then monitored her vitals the entire time, heart rate, blood pressure and pulse ox and the scope was inserted, pushed all the way to about 150 cm able to get all the way to cecum, took a picture of the appendiceal orifice and then able to get into the terminal ileum, took a picture and then slowly withdrew the scope insufflating to look circumferentially at the nunez looking at the cecum, up the ascending colon to the hepatic flexure and then down the transverse colon, the splenic flexure, into the descending colon, then into the sigmoid and finally into the rectum, retroflexing the rectal vault, saw some minimal internal hemorrhoids, took a picture of this and then removed the scope. The patient tolerated the procedure and she was recovered in the endoscopy suite. Job ID: [id number] DocumentID: [id number] Dictated Date: 03/25/2017 11:52:13 Dry Ice Machine Operator Date: 03/26/2017 00:50:00 Dictated By: JON MACKAY DO
== END 2017-03-24 14:12 | disposition home or self-care (01) ==
LOC: ENDO 11:09
PROVIDERS: ATTEND Surgery
DX: K64.8 Other hemorrhoids (principal); I70.213 Atherosclerosis of native arteries of extremities with intermittent claudication, bilateral legs; Z95.0 Presence of cardiac pacemaker; F31.9 Bipolar disorder, unspecified; F17.210 Nicotine dependence, cigarettes, uncomplicated; B20 Human immunodeficiency virus [HIV] disease; Z79.899 Other long term (current) drug therapy; F90.9 Attention-deficit hyperactivity disorder, unspecified type; F43.10 Post-traumatic stress disorder, unspecified; K21.9 Gastro-esophageal reflux disease without esophagitis; K27.9 Peptic ulcer, site unspecified, unspecified as acute or chronic, without hemorrhage or perforation
CPT/HCPCS: 84703

== ENCOUNTER → 2017-04-17 | Outpatient (CLI) | payer MEDICARE, MEDICAID ==
--- NOTE | 2017-04-17 18:06 | Diagnostic Imaging Report ---
INDICATION: Abdominal bloating and weight gain. TECHNIQUE: Transabdominal and transvaginal sonography was performed. FINDINGS: The uterus measures 8.3 x 4.5 x 3.8 cm. Endometrium is 4 mm in thickness. No myometrial mass is detected. The ovaries are not visualized. No adnexal mass or free fluid is detected. IMPRESSION: Nonvisualized ovaries. No other significant abnormality is identified. Dictated by: Dictated on workstation # [id number]
== END ==
LOC: RAD 14:33
PROVIDERS: ATTEND Nurse Practitioner Family
DX: R14.0 Abdominal distension (gaseous) (principal); R63.5 Abnormal weight gain; Z21 Asymptomatic human immunodeficiency virus [HIV] infection status
CPT/HCPCS: 76830; 76856

== ENCOUNTER 2017-06-24 15:10 | Emergency (ER) | payer MEDICAID, MEDICARE ==
[~2017-06-24] VITALS: Ht 162.6 cm; Wt 81.6 kg
[~2017-06-24 15:10] MED LIST changes: -SCOP1PAT TD; +SCOP1PAT11 TD
--- NOTE | 2017-06-24 15:22 | ED General ---
General Stated Complaint: LOWER BACK PAIN;CHEST TIGHTNESS;COUGH Source of Information: Patient Exam Limitations: No Limitations History of Present Illness Date Seen by Provider: Jun 24, 2017 Time Seen by Provider: 15:21 Initial Comments To ER with reports of low back pain, urinary frequency and burning upon urination, dark urine, nonproductive cough, chest tightness. She has a history of frequent and recurrent urinary tract infections with resistance to certain antibiotics. She finished antibiotics earlier this month for urinary tract infection and her symptoms resolved but now they've come back and she believes that she has a kidney infection. She also thinks she might have pneumonia. No fevers but she does have chills. She does see Dr Prabhakar for HIV, was formerly on HIV medications but two of them made her break out in a rash so she stopped them. States she has appointment with Dr Prabhakar coming up. Timing/Duration: 1-2 Days Severity: Moderate Associated Systoms: Fever/Chills, No Nausea/Vomiting Allergies and Home Medications Allergies Coded Allergies: No Known Drug Allergies (Unverified , 03/10/16) Home Medications Atazanavir Sulfate/Cobicistat 1 Each Tablet, 1 EACH PO DAILY, (Reported) Emtricitabine/Tenofov Alafenam 1 Each Tablet, 1 EACH PO DAILY, (Reported) Hydrocodone/Acetaminophen 1 Each Tablet, 1 EACH PO Q4H PRN for PAIN-MODERATE TO SEVERE Do not fill unless bactrim ds is also filled. Prescribed by: SHILOH JIM on 06/24/17 1627 Levothyroxine Sodium 50 Mcg Tablet, 50 MCG PO DAILY, (Reported) Omeprazole 40 Mg Capsule.dr, 40 MG PO DAILY, (Reported) Paliperidone 6 Mg Tab.er.24, 6 MG PO DAILY, (Reported) Ropinirole HCl 1 Mg Tablet, 1 MG PO HS, (Reported) Sulfamethoxazole/Trimethoprim 1 Each Tablet, 1 EACH PO BID Prescribed by: SHILOH JIM on 06/24/17 1623 Temazepam 30 Mg Capsule, 30 MG PO HS, (Reported) Patient Home Medication List Home Medication List Reviewed: Yes Review of Systems Constitutional: see HPI, chills, No fever, malaise EENTM: see HPI Respiratory: no symptoms reported Cardiovascular: no symptoms reported Genitourinary: see HPI, dysuria, frequency Musculoskeletal: see HPI, back pain Skin: no symptoms reported Psychiatric/Neurological: No Symptoms Reported Hematologic/Lymphatic: No Symptoms Reported Past Vhbwovx-Xmfpvg-Znizbz Hx Patient Social History Drug of Choice: HX OF METH AND MARIJUANA ADDICTION Type Used: Cigarettes 2nd Hand Smoke Exposure: No Recent Foreign Travel: No Contact w/Someone Who Travel: No Recent Hopitalizations: No Immunizations Up To Date Date of Influenza Vaccine: Jan 04, 2017 Seasonal Allergies Seasonal Allergies: No Past Medical History Surgeries: Yes (GASTRIC BYPASS, ABDOMINOPLASTY; HERNIA REPAIR) Abdominal, Adenoidectomy, Section, Gallbladder, Pacemaker, Tonsillectomy Respiratory: Yes COPD Cardiac: Yes (PACEMAKER FOR BRADYCARDIA) Neurological: Yes Vertigo Reproductive Disorders: No HIV/AIDS: Yes Kidney Infection Gastrointestinal: No Gastroesophageal Reflux, Chronic Constipation, Ulcer Musculoskeletal: No Endocrine: No Cancer: No Psychosocial: Yes ADD/ADHD, Anxiety, PTSD, Bipolar, Depression Integumentary: No Blood Disorders: No Adverse Reaction/Blood Tranf: No Family Medical History No Pertinent Family Hx Physical Exam Vital Signs Vital Signs - First Documented 06/24/17 06/24/17 15:14 17:00 Temp 97.8 Pulse 87 Resp 18 B/P (MAP) 91/49 Pulse Ox 99 Capillary Refill : General Appearance: No Apparent Distress, WD/WN Eyes: Bilateral Eye Normal Inspection, Bilateral Eye PERRL, Bilateral Eye EOMI HEENT: PERRL/EOMI, TMs Normal Neck: Full Range of Motion, Normal Inspection Respiratory: No Accessory Muscle Use, No Respiratory Distress Cardiovascular: Regular Rate, Rhythm, Normal Peripheral Pulses Gastrointestinal: Normal Bowel Sounds, Non Tender, Soft Extremity: Normal Capillary Refill, Normal Inspection Neurologic/Psychiatric: Alert, Oriented x3, No Motor/Sensory Deficits Skin: Normal Color, Warm/Dry Progress/Results/Core Measures Suspected Sepsis SIRS Temperature: Pulse: Respiratory Rate: Laboratory Tests 06/24/17 15:25: White Blood Count 8.0 Blood Pressure / Mean: Laboratory Tests 06/24/17 15:25: Creatinine 0.70, Platelet Count 273, Total Bilirubin 0.4 Results/Orders Lab Results Laboratory Tests Test 06/24/17 15:25 Range/Units White Blood Count 8.0 4.3-11.0 10^3/uL Red Blood Count 4.95 4.35-5.85 10^6/uL Hemoglobin 12.0 11.5-16.0 G/DL Hematocrit 37 35-52 % Mean Corpuscular Volume 74 L 80-99 FL Mean Corpuscular Hemoglobin 24 L 25-34 PG Mean Corpuscular Hemoglobin Concent 33 32-36 G/DL Red Cell Distribution Width 18.0 H 10.0-14.5 % Platelet Count 273 130-400 10^3/uL Mean Platelet Volume 11.4 H 7.4-10.4 FL Neutrophils (%) (Auto) 70 42-75 % Lymphocytes (%) (Auto) 19 12-44 % Monocytes (%) (Auto) 9 0-12 % Eosinophils (%) (Auto) 2 0-10 % Basophils (%) (Auto) 0 0-10 % Neutrophils # (Auto) 5.7 1.8-7.8 X 10^3 Lymphocytes # (Auto) 1.5 1.0-4.0 X 10^3 Monocytes # (Auto) 0.7 0.0-1.0 X 10^3 Eosinophils # (Auto) 0.2 0.0-0.3 10^3/uL Basophils # (Auto) 0.0 0.0-0.1 10^3/uL Urine Color YELLOW Urine Clarity VERY CLOUDY H Urine pH 5 5-9 Urine Specific [place] 1.020 1.016-1.022 Urine Protein 1+ H NEGATIVE Urine Glucose (UA) NEGATIVE NEGATIVE Urine Ketones NEGATIVE NEGATIVE Urine Nitrite NEGATIVE NEGATIVE Urine Bilirubin NEGATIVE NEGATIVE Urine Urobilinogen NORMAL NORMAL MG/DL Urine Leukocyte Esterase 3+ H NEGATIVE Urine RBC (Auto) 1+ H NEGATIVE Urine RBC RARE /HPF Urine WBC 50-100 H /HPF Urine Squamous Epithelial Cells 10-25 H /HPF Urine Crystals NONE /LPF Urine Bacteria MODERATE H /HPF Urine Casts NONE /LPF Urine Mucus SMALL H /LPF Urine Culture Indicated YES Sodium Level 139 135-145 MMOL/L Potassium Level 3.6 3.6-5.0 MMOL/L Chloride Level 109 H 98-107 MMOL/L Carbon Dioxide Level 27 21-32 MMOL/L Anion Gap 3 L 5-14 MMOL/L Blood Urea Nitrogen 9 7-18 MG/DL Creatinine 0.70 0.60-1.30 MG/DL Estimat Glomerular Filtration Rate > 60 BUN/Creatinine Ratio 13 Glucose Level 116 H 70-105 MG/DL Calcium Level 9.1 8.5-10.1 MG/DL Total Bilirubin 0.4 0.1-1.0 MG/DL Aspartate Amino Transf (AST/SGOT) 15 5-34 U/L Alanine Aminotransferase (ALT/SGPT) 12 0-55 U/L Alkaline Phosphatase 82 40-136 U/L Total Protein 7.4 6.4-8.2 GM/DL Albumin 4.2 3.2-4.5 GM/DL Urine Opiates Screen NEGATIVE NEGATIVE Urine Oxycodone Screen NEGATIVE NEGATIVE Urine Methadone Screen NEGATIVE NEGATIVE Urine Propoxyphene Screen NEGATIVE NEGATIVE Urine Barbiturates Screen NEGATIVE NEGATIVE Ur Tricyclic Antidepressants Screen POSITIVE H NEGATIVE Urine Phencyclidine Screen NEGATIVE NEGATIVE Urine Amphetamines Screen NEGATIVE NEGATIVE Urine Methamphetamines Screen NEGATIVE NEGATIVE Urine Benzodiazepines Screen POSITIVE H NEGATIVE Urine Cocaine Screen NEGATIVE NEGATIVE Urine Cannabinoids Screen NEGATIVE NEGATIVE My Orders Orders - SHILOH JIM APRN Cbc With Automated Diff (06/24/17 15:19) Comprehensive Metabolic Panel (06/24/17 15:19) Ua Culture If Indicated (06/24/17 15:19) Saline Lock/Iv-Start (06/24/17 15:19) Chest Pa/Lat (2 View) (06/24/17 15:19) Ns Iv 1000 Ml (Sodium Chloride 0.9%) (06/24/17 15:30) Ketorolac Injection (Toradol Injection) (06/24/17 16:00) Drug Screen Stat (Urine) (06/24/17 15:57) Urine Culture (06/24/17 15:25) Ceftriaxone Injection (Rocephin Injectio (06/24/17 16:15) Fentanyl Injection (Sublimaze Injection (06/24/17 16:30) Medications Given in ED Current Medications Medications Dose Ordered Sig/Brit Route Start Time Stop Time Status Last Admin Dose Admin Ceftriaxone Sodium 1000 mg/ Sodium Chloride 100 ml @ 200 mls/hr ONCE ONCE IV 06/24/17 16:15 06/24/17 16:44 DC 06/24/17 16:25 200 MLS/HR Fentanyl Citrate 50 mcg ONCE ONCE IVP 06/24/17 16:30 06/24/17 16:31 DC 06/24/17 16:23 50 MCG Ketorolac Tromethamine 30 mg ONCE ONCE IVP 06/24/17 16:00 06/24/17 16:01 DC 06/24/17 16:24 30 MG Vital Signs/I&O 06/24/17 06/24/17 15:14 17:00 Temp 97.8 Pulse 87 63 Resp 18 18 B/P (MAP) 91/49 Pulse Ox 99 98 Capillary Refill : Departure Impression Primary Impression: Urinary tract infection Additional Impression: Bronchitis Disposition: 01 HOME, SELF-CARE Condition: Stable Departure-Patient Inst. Decision time for Depature: 16:23 Referrals: [facility] (PCP) Primary Care Physician Patient Instructions: Urinary Tract Infection, Adult (DC) Add. Discharge Instructions: 1. Return to ER for any concerns 2. See your doctor this week for recheck Scripts Hydrocodone/Acetaminophen (Hardin 5-325 Tablet) 1 Each Tablet 1 EACH PO Q4H Y for PAIN-MODERATE TO SEVERE, #10 TAB Do not fill unless bactrim ds is also filled. Prov: SHILOH JIM APRN 06/24/17 Sulfamethoxazole/Trimethoprim (Bactrim Ds Tablet) 1 Each Tablet 1 EACH PO BID, #14 TAB Prov: SHILOH JIM APRN 06/24/17 SHILOH JIM APRN Jun 24, 2017 15:22
[2017-06-24] MEDS ORDERED: NS IV 1000 ML 1,000 ML IV SCH (15:30)
[2017-06-24 15:34] LABS: BILIRUBIN,URINE NEGATIVE (NEGATIVE); CLARITY,URINE VERY CLOUDY; COLOR,URINE YELLOW; GLUCOSE, URINE (UA) NEGATIVE (NEGATIVE); KETONES,URINE NEGATIVE (NEGATIVE); LEUKOCYTE ESTERASE ,URINE 3+ (NEGATIVE); NITRITE,URINE NEGATIVE (NEGATIVE); PH,URINE 5 (5-9); PROTEIN,URINE 1+ (NEGATIVE); UROBILINOGEN,URINE NORMAL (NORMAL)
[2017-06-24 15:35] LABS: BASOPHILS % (AUTO) 0 % (0-10); EOSINOPHILS # (AUTO) 0.2 10^3/uL (0.0-0.3); EOSINOPHILS % (AUTO) 2 % (0-10); HEMATOCRIT 37 % (35-52); LYMPHOCYTES # (AUTO) 1.5 X 10^3 (1.0-4.0); LYMPHOCYTES % (AUTO) 19 % (12-44); MEAN CORPUSCULAR HEMOGLOBIN 24 PG (25-34); MEAN CORPUSCULAR HGB CONC 33 G/DL (32-36); MEAN CORPUSCULAR VOLUME 74 FL (80-99); MEAN PLATELET VOLUME 11.4 FL (7.4-10.4); MONOCYTES # (AUTO) 0.7 X 10^3 (0.0-1.0); MONOCYTES % (AUTO) 9 % (0-12); NEUTROPHILS # (AUTO) 5.7 X 10^3 (1.8-7.8); NEUTROPHILS % (AUTO) 70 % (42-75); PLATELET COUNT 273 10^3/uL (130-400); RED BLOOD COUNT 4.95 10^6/uL (4.35-5.85)
[2017-06-24 15:54] LABS: ALANINE AMINOTRANSFERASE 12 U/L (0-55); ALBUMIN 4.2 GM/DL (3.2-4.5); ALKALINE PHOSPHATASE 82 U/L (40-136); BILIRUBIN,TOTAL 0.4 MG/DL (0.1-1.0); BUN/CREATININE RATIO 13; CALCIUM 9.1 MG/DL (8.5-10.1); CARBON DIOXIDE 27 MMOL/L (21-32); CHLORIDE 109 MMOL/L (98-107); GFR ESTIMATED > 60; GLUCOSE 116 MG/DL (70-105); POTASSIUM 3.6 MMOL/L (3.6-5.0); SODIUM 139 MMOL/L (135-145); TOTAL PROTEIN 7.4 GM/DL (6.4-8.2)
[2017-06-24] MEDS ORDERED: KETOROLAC 30 MG/ML VIAL IVP ONE (16:00)
--- NOTE | 2017-06-24 16:00 | Diagnostic Imaging Report ---
INDICATION: Pain. COMPARISON: 12/27/2015. FINDINGS: Two views of the chest are obtained. Heart size is normal. The pulmonary vessels appear unremarkable. There is no pneumothorax, mediastinal widening, or pleural fluid. Pacer device in left chest is stable. The lungs are clear. No acute osseous abnormality is demonstrated. IMPRESSION: No acute abnormality is demonstrated. No interval change from the prior study. Dictated by: Dictated on workstation # [id number]
[2017-06-24 16:04] LABS: BACTERIA,URINE MODERATE /HPF; RBC,URINE RARE /HPF; WBC,URINE 50-100 /HPF
[2017-06-24 16:13] LABS: AMPHETAMINE SCREEN, URINE NEGATIVE (NEGATIVE); BARBITURATE SCREEN URINE NEGATIVE (NEGATIVE); BENZODIAZEPINES SCREEN URINE POSITIVE (NEGATIVE); CANNABINOID SCREEN, URINE NEGATIVE (NEGATIVE); COCAINE SCREEN URINE NEGATIVE (NEGATIVE); METHADONE STAT NEGATIVE (NEGATIVE); METHAMPHETAMINE SCREEN URINE S NEGATIVE (NEGATIVE); OPIATE SCREEN URINE NEGATIVE (NEGATIVE); OXYCODONE STAT NEGATIVE (NEGATIVE); PROPOXYPHENE STAT NEGATIVE (NEGATIVE); TRICYCLIC ANTIDEPRESSANTS SCRE POSITIVE (NEGATIVE)
[2017-06-24] MEDS ORDERED: cefTRIAXone INJECTION 1,000 MG in NS (IVPB) 100 ML IV ONE (16:15)
[2017-06-24] MEDS ORDERED: SULF1TAB35 PO (16:23)
[2017-06-24] MEDS ORDERED: HYDR-757 PO (16:27)
[2017-06-24] MEDS ORDERED: fentaNYL INJECTION 100 MCG/2 ML AMP IVP ONE (16:30)
[2017-06-24 17:00] VITALS: BP 91/49
== END 2017-06-24 16:59 | disposition home or self-care (01) ==
LOC: EDUNIT# 15:10 → ER 15:12
DX: N39.0 Urinary tract infection, site not specified (principal); J40 Bronchitis, not specified as acute or chronic; J44.9 Chronic obstructive pulmonary disease, unspecified; K21.9 Gastro-esophageal reflux disease without esophagitis; F41.9 Anxiety disorder, unspecified; F31.9 Bipolar disorder, unspecified; F43.10 Post-traumatic stress disorder, unspecified; F90.9 Attention-deficit hyperactivity disorder, unspecified type; Z87.440 Personal history of urinary (tract) infections; Z98.84 Bariatric surgery status; Z90.89 Acquired absence of other organs; Z87.59 Personal history of other complications of pregnancy, childbirth and the puerperium; Z87.19 Personal history of other diseases of the digestive system; Z95.0 Presence of cardiac pacemaker
CPT/HCPCS: 36415; 71046; 80053; 80306; 81000; 85025; 87088; 87186; 96361; 96365; 96375

== ENCOUNTER 2017-09-27 16:53 | Emergency (ER) | payer MEDICARE ==
[~2017-09-27] VITALS: Ht 162.6 cm; Wt 81.6 kg
[~2017-09-27 16:53] MED LIST changes: +CEPH-507 PO; +HYDR-757 PO; +SULF1TAB35 PO
--- NOTE | 2017-09-27 18:20 | ED Integumentary General ---
General Chief Complaint: Bite-Animal/Human/Insect Stated Complaint: "ITCHY" Nursing Triage Note: PT REPORTS FOR 3+ YEARS SHE HAS HAD SKIN ISSUES/ITCHING AND TOLD SHE HAS SCABIES/AND OR EXEMA. Source: patient Exam Limitations: no limitations History of Present Illness Date Seen by Provider: Sep 27, 2017 Time Seen by Provider: 17:20 Initial Comments Patient is a 46-year-old female who presents to the emergency room with complaints of itching for 3 years. She states that she has been seen by dermatology, [facility], has been told she has scabies, lice, eczema. She also reports that she has an extensive history of methamphetamine use but has been clean for several months. Timing/Duration: other (3 years) Location: generalized Possible Cause: no cause identified Allergies and Home Medications Allergies Coded Allergies: No Known Drug Allergies (Unverified , 03/10/16) Home Medications Atazanavir Sulfate/Cobicistat 1 Each Tablet, 1 EACH PO DAILY, (Reported) Cephalexin 500 Mg Capsule, 500 MG PO TID Prescribed by: CATHY MATHIS on 09/09/172044 Emtricitabine/Tenofov Alafenam 1 Each Tablet, 1 EACH PO DAILY, (Reported) Hydrocodone/Acetaminophen 1 Each Tablet, 1 EACH PO Q4H PRN for PAIN-MODERATE TO SEVERE Do not fill unless bactrim ds is also filled. Prescribed by: SHILOH JIM on 06/24/17 162 Levothyroxine Sodium 50 Mcg Tablet, 50 MCG PO DAILY, (Reported) Omeprazole 40 Mg Capsule.dr, 40 MG PO DAILY, (Reported) Paliperidone 6 Mg Tab.er.24, 6 MG PO DAILY, (Reported) Ropinirole HCl 1 Mg Tablet, 1 MG PO HS, (Reported) Sulfamethoxazole/Trimethoprim 1 Each Tablet, 1 EACH PO BID Prescribed by: SHILOH JIM on 06/24/17 162 Temazepam 30 Mg Capsule, 30 MG PO HS, (Reported) Patient Home Medication List Home Medication List Reviewed: Yes Constitutional: see HPI; No chills, No diaphoresis EENTM: see HPI; No ear pain, No blurred vision Respiratory: no symptoms reported Cardiovascular: no symptoms reported Gastrointestinal: see HPI; No abdominal pain, No constipation, No diarrhea, No dysphagia Genitourinary: see HPI; No decreased output, No discharge, No dysuria Musculoskeletal: see HPI; No back pain, No gout Skin: see HPI, pruritus Psychiatric/Neurological: See HPI; Denies Anxiety, Denies Depressed Endocrine: See HPI; Denies Excessive Sweating, Denies Flushing Hematologic/Lymphatic: See HPI; Denies Anemia All Other Systems Reviewed Negative Unless Noted: Yes Past Hrqcdoa-Vgihpb-Clkdbz Hx Patient Social History Alcohol Use: Denies Use Recreational Drug Use: No (PAST HX, 2 YEARS SOBER) Drug of Choice: meth, cannibus Smoking Status: Former Smoker Type Used: Cigarettes Former Smoker, Quit: August 05, 2017 2nd Hand Smoke Exposure: No Recent Foreign Travel: No Contact w/Someone Who Travel: No Recent Infectious Disease Expo: No Recent Hopitalizations: No Physical Abuse: No Sexual Abuse: No Mistreated: No Immunizations Up To Date Tetanus Booster (TDap): Unknown Date of Influenza Vaccine: Jan 04, 2017 Seasonal Allergies Seasonal Allergies: No Past Medical History Surgeries: Yes (GASTRIC BYPASS, ABDOMINOPLASTY; HERNIA REPAIR) Abdominal, Adenoidectomy, Section, Gallbladder, Orthopedic, Pacemaker, Tonsillectomy Respiratory: Yes COPD Cardiac: Yes (PACEMAKER FOR BRADYCARDIA) Neurological: Yes Vertigo Reproductive Disorders: No HIV/AIDS: Yes Genitourinary: Yes Kidney Infection Gastrointestinal: Yes Gastroesophageal Reflux, Chronic Constipation, Ulcer Musculoskeletal: No Endocrine: No HEENT: No Cancer: No Psychosocial: Yes ADD/ADHD, Anxiety, PTSD, Bipolar, Depression Nursing Suicide Risk Score: 0 Integumentary: No Blood Disorders: Yes (hiv POS) Adverse Reaction/Blood Tranf: No Family Medical History No Pertinent Family Hx Physical Exam Vital Signs Vital Signs - First Documented 09/27/17 17:11 Temp 97.8 Pulse 86 Resp 20 B/P (MAP) 104/63 (77) Pulse Ox 98 Capillary Refill : Less Than 3 Seconds General Appearance: WD/WN, no apparent distress HEENT: PERRL/EOMI, normal ENT inspection, TMs normal, pharynx normal Neck: non-tender, full range of motion, supple, normal inspection Cardiovascular: regular rate, rhythm, no edema, no gallop, no JVD, no murmur Respiratory: chest non-tender, lungs clear, normal breath sounds, no respiratory distress, no accessory muscle use Gastrointestinal: normal bowel sounds, non tender, soft, no organomegaly, no pulsatile mass Back: normal inspection, no CVA tenderness, no vertebral tenderness Extremities: normal range of motion, non-tender, normal inspection, no pedal edema, no calf tenderness Neurologic/Psychiatric: alert, normal mood/affect, oriented x 3 Skin: normal color, warm/dry Lymphatic: no adenopathy Progress/Results/Core Measures Results/Orders My Orders Orders - ABRAHAN HERRMANN Hydroxyzine Oral (Vistaril Capsule) (09/27/17 18:30) Vital Signs/I&O 09/27/17 09/27/17 17:11 18:32 Temp 97.8 Pulse 86 87 Resp 20 16 B/P (MAP) 104/63 (77) 126/75 Pulse Ox 98 98 Blood Pressure Mean: 77 Progress Progress Note : Progress Note The patient had me examine her head and look all over her body but I was unable to see any insects or rashes on her skin. I informed her that I believe this is from the extensive drug history that she has and she said she's been told that before. I did provide the patient with a prescription for Atarax. Departure Impression Primary Impression: Pruritus Disposition: 01 HOME, SELF-CARE Condition: Stable/Unchanged Departure-Patient Inst. Decision time for Depature: 18:19 Referrals: MICHAEL MENJIVAR APRN (PCP) Primary Care Physician [facility] (Family) Primary Care Physician Patient Instructions: Itchy Skin Add. Discharge Instructions: Take medications as directed. Follow-up with your doctor within 1 week for recheck. Return back to the emergency room for any concerns as needed. All discharge instructions reviewed with patient and/or family. Voiced understanding. ABRAHAN HERRMANN Sep 27, 2017 18:20
[2017-09-27] MEDS ORDERED: hydrOXYzine (VISTARIL) 25 MG CAP PO ONE (18:30)
[2017-09-27 18:32] VITALS: BP 126/75
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
--- OUTSIDE RECORDS SUMMARY | 2017-09-29 00:19 | XMS REPORT ---
Author Author ALEKSANDRA HAYES [facility] Address [address] [place] [address] Care Team Providers Care Logistic Specialist Name Role Phone ALEKSANDRA HAYES Unavailable PROBLEMS Type Condition ICD9-CM Code GLN03-XR Code Onset Dates Condition Status SNOMED Code Problem Hypertriglyceridemia E78.1 Active 278348473 Problem Iron deficiency anemia secondary to inadequate dietary iron intake D50.8 Active 686492675 Problem Gastritis determined by endoscopy K29.70 Active 5180249 Problem HIV antibody positive Z21 Active 449393918 Problem Generalized headaches R51 Active 686492905 Problem Chronic migraine without aura without status migrainosus, not intractable G43.709 Active 692969408 Problem Tobacco abuse counseling Z71.6 Active 881602348 Problem Recurrent major depressive disorder, in full remission F33.42 Active 925321478 Problem Tobacco abuse Z72.0 Active 137337443 Problem Presence of cardiac pacemaker Z95.0 Active 865177239 Problem Low libido R68.82 Active 7073107 Problem Other specified cardiac arrhythmias I49.8 Active 837267440 Problem Other chronic pain G89.29 Active 16046448 Problem Lumbago with sciatica, right side M54.41 Active 577611588 Problem Methamphetamine use disorder, severe, 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 Active 41877759 Problem ADHD, adult residual type F90.8 Active 759082121 Problem Bipolar 1 disorder with moderate marii F31.12 Active 87484048 Problem Irregular periods N92.6 Active 73749607 Problem Coronary artery disease involving washoe coronary artery of washoe heart without angina pectoris I25.10 Active 7850920818789 Problem Irritable bowel syndrome with both constipation and diarrhea K58.2 Active 46811496 Problem Irritant dermatitis L24.9 Active 244116419 Problem Alcohol use disorder, severe, in sustained remission F10.21 Active 00928553 Problem Mood disorder F39 Active 48874390 Problem Cannabis use disorder, severe, in sustained remission F12.21 Active 61713688 Problem Cocaine use disorder, severe, in sustained remission F14.21 Active 10549546 Problem Primary insomnia F51.01 Active 3473730 Problem Anxiety F41.9 Active 34896407 Problem PTSD (post-traumatic stress disorder) F43.10 Active 17767797 Problem Obesity (BMI 30.0-34.9) E66.9 Active [id number] ALLERGIES No Information ENCOUNTERS Encounter Location Date Diagnosis [facility] [id number] [place] [address] 27929- 5477 Oct, [facility] [address] [address] Sep, [facility] [address] [address]77- 2864 Sep, HIV antibody positive Z21 ; Obesity (BMI 30.0-34.9) E66.9 ; Chronic migraine without aura without status migrainosus, not intractable G43.709 ; Lumbago with sciatica, right side M54.41 and Other chronic pain G89.29 [facility] [id number] [place] [address]18 [address]0439 Aug, Abdominal pain R10.9 and Acute cystitis without hematuria N30.00 [facility] [id number] [place] [address] 18115- 3828 July, [facility] [id number] [place] [address] 61100- 2717 Jun, [facility] [id number] [place] [address] 82479- 8340 Jun, [facility] [id number] [place] [address] 68083- 5641 May, [facility] [address] 30670- 6065 May, Irritable bowel syndrome with both constipation and diarrhea K58.2 ; Tobacco abuse Z72.0 ; Tobacco abuse counseling Z71.6 ; Low libido R68.82 and Alcohol use disorder, severe, in sustained remission F10.21 [address] [id number] [place] [address] 73338- 6272 23 May, 2017 Tobacco abuse Z72.0 [place] [id number] [place] [address] 38598- 1690 May, HIV antibody positive Z21 ; Irregular periods N92.6 and Low libido R68.82 [place] [address] 60532- 6119 May, Primary insomnia F51.01 and Folliculitis L73.9 [place] [id number] [place] [address] 44937- 2202 16 May, 2017 HIV antibody positive Z21 ; Irregular periods N92.6 and Low libido R68.82 [place] [id number] [place] [address] 07027- 6241 May, [place] [id number] [place] [address] 62946- 7697 May, [facility] [id number] [place] [address] 57078- 4553 May, [place] [address] 13709- 7301 May, Anxiety F41.9 [facility] [id number] [place] [address] 94809- 9602 May, Anxiety F41.9 [place] [id number] [place] [address] 23056- 3303 May, [place] [id number] [place] [address] 21269- 1455 09 May, 2017 Acute cystitis with hematuria N30.01 ; HIV antibody positive Z21 ; Primary insomnia F51.01 ; Gastritis determined by endoscopy K29.70 ; Low libido R68.82 ; Tobacco abuse Z72.0 and Vaginal candidiasis B37.3 [place] [id number] [place] [address] 54311- 7295 Apr, [facility] [id number] [place] [address] 23744- 3186 Apr, [facility] [id number] [place] [address] 15084- 5857 Apr, Allergic contact dermatitis, unspecified trigger L23.9 [facility] [id number] [place] [address] 66734- 4305 Apr, [facility] [id number] [place] [address] 92751- 0790 Apr, Irregular periods N92.6 ; Irritant dermatitis L24.9 and Anxiety F41.9 [facility] [id number] [place] [address] 41103 -6981 Apr, Vaginal discharge N89.8 and Folliculitis L73.9 [facility] [id number] [place] [address] 50863- 0314 Apr, [facility] [id number] [place] [address] 53190- 3897 Apr, [facility] [id number] [place] [address] 75164- 2766 Apr, [facility] [id number] [place] [address] 59292- 4495 Mar, HIV antibody positive Z21 ; Anxiety [...] R30.0 and Gastritis determined by endoscopy K29.70 [facility] [id number] [place] [address] 29000- 1310 Mar, [facility] [address] [address] Mar, [facility] [id number] [place] [address] 88374- 3849 Mar, [facility] [id number] [place] [address] 09064- 1291 Mar, [facility] [id number] [place] [address] 50004- 1816 Mar, [facility] [id number] [place] [address] 30057 -3827 Mar, Vaginal horacio B37.3 [place] [id number] [place] [address] 00986- 5500 Feb, Dysuria R30.0 ; Acute cystitis with hematuria N30.01 ; HIV antibody positive Z21 ; Eczema, unspecified type L30.9 and Wound of left lower extremity, initial encounter S81.802A [place] [id number] [place] [address] 23204- 0794 Feb, [place] [id number] [place] [address] 98504- 8303 Feb, [address] [id number] [place] [address] 62236- 8282 13 Feb, 2017 [place] [id number] [place] [address] 54410- 9775 Feb, [place] [id number] [place] [address] 81677- 7366 08 Feb, 2017 Dermatitis L30.9 ; HIV antibody positive Z21 ; Bipolar 1 disorder with moderate marii F31.12 ; History of gastric bypass Z98.890 ; Primary insomnia F51.01 ; Tobacco abuse Z72.0 ; Anxiety F41.9 and Obesity (BMI 30.0-34.9) E66.9 [place] [id number] [place] [address] 68243- 3216 Jan, [facility] [address] [address] 8[address] Jan, Mood disorder F39 ; PTSD (post-traumatic stress disorder) F43.10 ; Methamphetamine use disorder, severe, 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 ; Alcohol use disorder, severe, in sustained remission F10.21 ; Cannabis use disorder, severe, in sustained remission F12.21 and Cocaine use disorder, severe , in sustained remission F14.21 [place] [id number] [place] [address] 97409- 8918 Jan, [facility] [id number] [place] [address] 20402- 9269 Jan, [facility] [id number] [place] [address] 10464- 0238 Jan, [place] [id number] [place] [address] 45980- 0188 Jan, [facility] [id number] [place] [address] 72196- 1508 Jan, Mood disorder F39 ; PTSD (post-traumatic stress disorder) F43.10 ; Methamphetamine use disorder, severe, 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 ; Alcohol use disorder, severe, in sustained remission F10.21 ; Cannabis use disorder, severe, in sustained remission F12.21 and Cocaine use disorder, severe , in sustained remission F14.21 [facility] [address] [address]- 4043 Dec, [facility] [address] [place] [address] 50486- 2141 Dec, [facility] [id number] [place] [address] 69290- 1081 Dec, ADHD, adult residual type F90.8 ; Post traumatic stress disorder (PTSD) F43.10 and Bipolar 1 disorder with moderate marii F31.12 [facility] [address] [place] [address] 92268- 2189 Dec, Dysuria R30.0 ; Routine screening for STI (sexually transmitted infection) Z11.3 and Routine gynecological examination Z01.419 [facility] [id number] [place] [address] 69372- 2459 10 Dec, 2016 Eczema, unspecified type L30.9 ; History of UTI Z87.440 and Hospital discharge follow-up Z09 [facility] [address] 24806- 8033 09 Dec, 2016 [facility] [address] 42169- 2716 02 Dec, 2016 Visit for suture removal Z48.02 [facility] [address] 34272 -1401 28 Nov, 2016 [facility] [address] 26288- 3777 Nov, [facility] [address] 28280- 0556 Nov, [facility] [id number] [place] [address] 77096- 9260 Nov, [facility] [address] 01560- 8299 Nov, [facility] [id number] [place] [address] 57361- 2357 Nov, [facility] [id number] [place] [address] 60305- 9001 19 Nov, 2016 Rash R21 [facility] [id number] [place] [address] 98153 -5150 18 Nov, 2016 Abnormal stools R19.5 [facility] [id number] [place] [address] 89994 -7999 13 Nov, 2016 Rash R21 [facility] [id number] [place] [address] [id number] 12 Sep, 2016 Dental examination Z01.20 [facility] [address] [place] [address] 33778 -6356 10 Sep, 2016 Acute back pain M54.9 [address] [id number] [place] [address] 60619- 7744 28 Aug, 2016 [place] [id number] [place] [address] 89904- 7187 Aug, [facility] [address] 65580 [address]288 Aug, Cough R05 and Community acquired pneumonia J18.9 [facility] [address] [id number] Jun, Dental examination Z01.20 [facility] [id number] [place] [address] 31649 -5473 May, Allergic contact dermatitis, unspecified trigger L23.9 [id number] [place] [address] 12901- 8702 10 Apr, 2016 [place] [id number] [place] [address] 43491- 5949 Mar, Skin sore L98.9 [facility] [id number] [place] [address] 48203 -5317 Mar, Constipation, unspecified constipation type K59.00 [id number] [place] [address] 34616- 2835 Feb, Skin sore L98.9 ; Excoriation (skin-picking) disorder F42.4 and HIV antibody positive Z21 [id number] [place] [address] 62888- 7023 06 Feb, 2016 Routine health maintenance Z00.00 ; Family history of diabetes mellitus Z83.3 ; HIV antibody positive Z21 ; 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 ; Tobacco abuse Z72.0 ; Tobacco abuse counseling Z71.6 ; Restless legs syndrome G25.81 ; Generalized headaches R51 ; History of gastric bypass Z98.890 ; History of CO (myocardial infarction) I25.2 ; Pacemaker Z95.0 and Left hip pain M25.552 [facility] [id number] [place] [id number] Jan, Encounter for dental examination and cleaning without abnormal findings Z01.20 IMMUNIZATIONS No Known Immunizations SOCIAL HISTORY Never Assessed REASON FOR VISIT needing referral PLAN OF CARE VITAL SIGNS MEDICATIONS Unknown [...] Surgical History hernia repair Hospitalization History in [place] Dec 2015 Hospitalization History inpatient [facility]unsure date Hospitalization History [facility] ED visit, uti 08/28/2017
--- OUTSIDE RECORDS SUMMARY | 2017-09-29 00:20 | XMS REPORT ---
Author Author MICHAEL MENJIVAR Organization 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 Name Role Phone MENJIVARMICHAEL Richard Unavailable PROBLEMS Type Condition ICD9-CM Code APZ43-DO Code Onset Dates Condition Status SNOMED Code Problem Hypertriglyceridemia E78.1 Active 039557092 Problem Iron deficiency anemia secondary to inadequate dietary iron intake D50.8 Active 990654063 Problem Gastritis determined by endoscopy K29.70 Active 7736375 Problem HIV antibody positive Z21 Active 783522702 Problem Generalized headaches R51 Active 736676732 Problem Chronic migraine without aura without status migrainosus, not intractable G43.709 Active 268116841 Problem Tobacco abuse counseling Z71.6 Active 548971949 Problem Recurrent major depressive disorder, in full remission F33.42 Active 532073268 Problem Tobacco abuse Z72.0 Active 115761617 Problem Presence of cardiac pacemaker Z95.0 Active 815085163 Problem Low libido R68.82 Active 6949338 Problem Other specified cardiac arrhythmias I49.8 Active 879249395 Problem Other chronic pain G89.29 Active 74631478 Problem Lumbago with sciatica, right side M54.41 Active 919848643 Problem Methamphetamine use disorder, severe, 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 Active 77849887 Problem ADHD, adult residual type F90.8 Active 368289795 Problem Bipolar 1 disorder with moderate marii F31.12 Active 59091696 Problem Irregular periods N92.6 Active 31608368 Problem Coronary artery disease involving [place] coronary artery of [place] heart without angina pectoris I25.10 Active 6420577852495 Problem Irritable bowel syndrome with both constipation and diarrhea K58.2 Active 66197645 Problem Irritant dermatitis L24.9 Active 441371124 Problem Alcohol use disorder, severe, in sustained remission F10.21 Active 11653597 Problem Mood disorder F39 Active 37624160 Problem Cannabis use disorder, severe, in sustained remission F12.21 Active 11745078 Problem Cocaine use disorder, severe, in sustained remission F14.21 Active 12818355 Problem Primary insomnia F51.01 Active 0258493 Problem Anxiety F41.9 Active 83951753 Problem PTSD (post-traumatic stress disorder) F43.10 Active 03501737 Problem Obesity (BMI 30.0-34.9) E66.9 Active [id number] ALLERGIES No Information ENCOUNTERS Encounter Location Date Diagnosis [facility] [id number] [place] [address] 42968- 6976 Oct, [facility] [address] [address] Sep, [facility] [address] 285[address]- [address]368 Sep, HIV antibody positive Z21 ; Obesity (BMI 30.0-34.9) E66.9 ; Chronic migraine without aura without status migrainosus, not intractable G43.709 ; Lumbago with sciatica, right side M54.41 and Other chronic pain G89.29 [facility] [id number] [place] [address] 99850 -7687 Aug, Abdominal pain R10.9 and Acute cystitis without hematuria N30.00 [facility] [id number] [place] [address] 99656- 8913 July, [facility] [id number] [place] [address] 71913- 5403 Jun, [facility] [id number] [place] [address] 64314- 7462 Jun, [facility] [id number] [place] [address] 59312- 2735 May, [facility] [address] 55719- 4740 May, Irritable bowel syndrome with both constipation and diarrhea K58.2 ; Tobacco abuse Z72.0 ; Tobacco abuse counseling Z71.6 ; Low libido R68.82 and Alcohol use disorder, severe, in sustained remission F10.21 [place] [id number] [place] [address] 38571- 6246 23 May, 2017 Tobacco abuse Z72.0 [place] [id number] [place] [address] 29622- 7153 May, HIV antibody positive Z21 ; Irregular periods N92.6 and Low libido R68.82 [place] [address] 54146- 8788 May, Primary insomnia F51.01 and Folliculitis L73.9 [place] [id number] [place] [address] 62063- 1509 16 May, 2017 HIV antibody positive Z21 ; Irregular periods N92.6 and Low libido R68.82 [place] [id number] [place] [address] 89272- 8422 May, [place] [id number] [place] [address] 97478- 1663 May, [place] [id number] [place] [address] 69336- 6819 May, [place] [address] 79382- 0431 May, Anxiety F41.9 [place] [id number] [place] [address] 31206- 5320 May, Anxiety F41.9 [place] [id number] [place] [address] 63781- 2840 May, [place] [id number] [place] [address] 99586- 5221 09 May, 2017 Acute cystitis with hematuria N30.01 ; HIV antibody positive Z21 ; Primary insomnia F51.01 ; Gastritis determined by endoscopy K29.70 ; Low libido R68.82 ; Tobacco abuse Z72.0 and Vaginal candidiasis B37.3 [place] [id number] [place] [address] 83726- 7991 Apr, [facility] [id number] [place] [address] 89356- 0572 Apr, [facility] [id number] [place] [address] 56381- 4409 Apr, Allergic contact dermatitis, unspecified trigger L23.9 [facility] [id number] [place] [address] 12868- 2196 Apr, [facility] [id number] [place] [address] 65096- 0744 Apr, Irregular periods N92.6 ; Irritant dermatitis L24.9 and Anxiety F41.9 [facility] [id number] [place] [address] 99078 -3819 Apr, Vaginal discharge N89.[address] [facility] [id number] [place] [address] 32803- 0028 Apr, [facility] [id number] [place] [address] 32003- 7777 Apr, [facility] [id number] [place] [address] 88020- 9834 Apr, [facility] [id number] [place] [address] 22186- 3738 Mar, HIV antibody positive Z21 ; Anxiety [...] R30.0 and Gastritis determined by endoscopy K29.70 [facility] [id number] [place] [address] 89410- 8170 Mar, [facility] [address] [address] Mar, [facility] [id number] [place] [address] 62693- 8167 Mar, [facility] [id number] [place] [address] 44879- 5835 Mar, [facility] [id number] [place] [address] 16335- 1139 Mar, [facility] [id number] [place] [address] 47523 -2488 Mar, Vaginal horacio B37.3 [place] [id number] [place] [address] 71455- 9800 Feb, Dysuria R30.0 ; Acute cystitis with hematuria N30.01 ; HIV antibody positive Z21 ; Eczema, unspecified type L30.9 and Wound of left lower extremity, initial encounter S81.802A [place] [id number] [place] [address] 92619- 1332 Feb, [place] [id number] [place] [address] 95168- 2358 Feb, [place] [id number] [place] [address] 88923- 7022 13 Feb, 2017 [place] [id number] [place] [address] 79509- 4761 Feb, [place] [id number] [place] [address] 15912- 6813 08 Feb, 2017 Dermatitis L30.9 ; HIV antibody positive Z21 ; Bipolar 1 disorder with moderate marii F31.12 ; History of gastric bypass Z98.890 ; Primary insomnia F51.01 ; Tobacco abuse Z72.0 ; Anxiety F41.9 and Obesity (BMI 30.0-34.9) E66.9 [place] [id number] [place] [address] 37609- 4025 Jan, 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 [id number] [place] [address] 66293- 2540 Jan, [facility] [id number] [place] [address] 04479- 5875 Jan, [place] [id number] [place] [address] 79482- 3571 Jan, 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 [address] [address] Dec, [facility] [address] [place] [address] 44136- 5393 Dec, [facility] [id number] [place] [address] 42784- 4642 Dec, ADHD, adult residual type F90.8 ; Post traumatic stress disorder (PTSD) F43.10 and Bipolar 1 disorder with moderate marii F31.12 [facility] [address] [place] [address] 66241- 5079 Dec, Dysuria R30.0 ; Routine screening for STI (sexually transmitted infection) Z11.3 and Routine gynecological examination Z01.419 [facility] [id number] [place] [address] 02006- 3123 10 Dec, 2016 Eczema, unspecified type L30.9 ; History of UTI Z87.440 and Hospital discharge follow-up Z09 [facility] [address] 52144- 4350 09 Dec, 2016 [facility] [address] 24566- 6236 02 Dec, 2016 Visit for suture removal Z48.02 [facility] [address] 59645 -6133 28 Nov, 2016 [facility] [address] 08270- 2837 Nov, [facility] [address] 10520- 3930 Nov, [facility] [id number] [place] [address] 29962- 6490 Nov, [facility] [address] 69500- 1477 Nov, [facility] [id number] [place] [address] 19961- 2701 Nov, [facility] [id number] [place] [address] 73288- 6971 19 Nov, 2016 Rash R21 [facility] [id number] [place] [address] 13895 -4584 18 Nov, 2016 Abnormal stools R19.5 [facility] [id number] [place] [address] 82022 -8041 13 Nov, 2016 Rash R21 [facility] [id number] [place] [address] [id number] 12 Sep, 2016 Dental examination Z01.20 [facility] [address] [place] [address] 26561 -4799 10 Sep, 2016 Acute back pain M54.9 [place] [id number] [place] [address] 51851- 5618 28 Aug, 2016 [place] [id number] [place] [address] 43906- 3845 Aug, [facility] [address] 28532 -5140 Aug, Cough R05 and Community acquired pneumonia J18.9 [facility] [address] [id number] Jun, Dental examination Z01.20 [facility] [place] [id number] [place] [address] 86932 -4134 May, Allergic contact dermatitis, unspecified trigger L23.9 [id number] [place] [address] 48191- 0561 10 Apr, 2016 [place] [id number] [place] [address] 30200- 7320 Mar, Skin sore L98.9 [facility] [address] [id number] [place] [address] 79297 -5907 Mar, Constipation, unspecified constipation type K59.00 [id number] [place] [address] 39314- 8270 Feb, Skin sore L98.9 ; Excoriation (skin-picking) disorder F42.4 and HIV antibody positive Z21 [place] [id number] [place] [address] 17975- 0106 06 Feb, 2016 Routine health maintenance Z00.00 ; Family history of diabetes mellitus Z83.3 ; HIV antibody positive Z21 ; 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 ; Tobacco abuse Z72.0 ; Tobacco abuse counseling Z71.6 ; Restless legs syndrome G25.81 ; Generalized headaches R51 ; History of gastric bypass Z98.890 ; History of FL (myocardial infarction) I25.2 ; Pacemaker Z95.0 and Left hip pain M25.552 [facility] [id number] [place] [id number] Jan, Encounter for dental examination and cleaning without abnormal findings Z01.20 IMMUNIZATIONS No Known Immunizations SOCIAL HISTORY Never Assessed REASON FOR VISIT Lab results PLAN OF CARE VITAL SIGNS MEDICATIONS Unknown [...] Surgical History hernia repair Hospitalization History in [place] Dec 2015 Hospitalization History inpatient [facility]-unsure date Hospitalization History [facility] ED visit, [facility]i 08/28/2017
--- OUTSIDE RECORDS SUMMARY | 2017-09-29 00:20 | XMS REPORT ---
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 Name Role Phone MENJIVARMICHAEL Richard Unavailable PROBLEMS Type Condition ICD9-CM Code NBG69-RQ Code Onset Dates Condition Status SNOMED Code Problem Hypertriglyceridemia E78.1 Active 002121247 Problem Iron deficiency anemia secondary to inadequate dietary iron intake D50.8 Active 489845234 Problem Gastritis determined by endoscopy K29.70 Active 7853283 Problem HIV antibody positive Z21 Active 455877106 Problem Generalized headaches R51 Active 845677495 Problem Chronic migraine without aura without status migrainosus, not intractable G43.709 Active 911193076 Problem Tobacco abuse counseling Z71.6 Active 149717907 Problem Recurrent major depressive disorder, in full remission F33.42 Active 351361585 Problem Tobacco abuse Z72.0 Active 199976773 Problem Presence of cardiac pacemaker Z95.0 Active 143403045 Problem Low libido R68.82 Active 1079882 Problem Other specified cardiac arrhythmias I49.8 Active 839273117 Problem Other chronic pain G89.29 Active 24545293 Problem Lumbago with sciatica, right side M54.41 Active 272606316 Problem Methamphetamine use disorder, severe, 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 Active 27862580 Problem ADHD, adult residual type F90.8 Active 387855597 Problem Bipolar 1 disorder with moderate marii F31.12 Active 63664645 Problem Irregular periods N92.6 Active 72808856 Problem Coronary artery disease involving [place] coronary artery of [place] heart without angina pectoris I25.10 Active 5609275647219 Problem Irritable bowel syndrome with both constipation and diarrhea K58.2 Active 68648802 Problem Irritant dermatitis L24.9 Active 640533249 Problem Alcohol use disorder, severe, in sustained remission F10.21 Active 91592972 Problem Mood disorder F39 Active 62649568 Problem Cannabis use disorder, severe, in sustained remission F12.21 Active 13327687 Problem Cocaine use disorder, severe, in sustained remission F14.21 Active 56754855 Problem Primary insomnia F51.01 Active 7428585 Problem Anxiety F41.9 Active 47458998 Problem PTSD (post-traumatic stress disorder) F43.10 Active 91996796 Problem Obesity (BMI 30.0-34.9) E66.9 Active [id number] ALLERGIES No Information ENCOUNTERS Encounter Location Date Diagnosis [facility] [id number] [place] [address] 24615- 1281 Oct, [facility] [address] [address] Sep, [facility] [address] 14[address] 9816 Sep, HIV antibody positive Z21 ; Obesity (BMI 30.0-34.9) E66.9 ; Chronic migraine without aura without status migrainosus, not intractable G43.709 ; Lumbago with sciatica, right side M54.41 and Other chronic pain G89.29 [facility] [id number] [place] [address] 77664 -7046 Aug, Abdominal pain R10.9 and Acute cystitis without hematuria N30.00 [facility] [id number] [place] [address] 00221- 3523 July, [facility] [id number] [place] [address] 80651- 4540 Jun, [facility] [id number] [place] [address] 87106- 8857 Jun, [facility] [id number] [place] [address] 42863- 9992 May, [facility] [address] 27549- 6938 May, Irritable bowel syndrome with both constipation and diarrhea K58.2 ; Tobacco abuse Z72.0 ; Tobacco abuse counseling Z71.6 ; Low libido R68.82 and Alcohol use disorder, severe, in sustained remission F10.21 [place] [id number] [place] [address] 78782- 5055 23 May, 2017 Tobacco abuse Z72.0 [place] [id number] [place] [address] 27609- 7966 May, HIV antibody positive Z21 ; Irregular periods N92.6 and Low libido R68.82 [place] [address] 66453- 7774 May, Primary insomnia F51.01 and Folliculitis L73.9 [place] [id number] [place] [address] 92404- 2156 16 May, 2017 HIV antibody positive Z21 ; Irregular periods N92.6 and Low libido R68.82 [place] [id number] [place] [address] 99001- 7355 May, [place] [id number] [place] [address] 37197- 5259 May, [place] [id number] [place] [address] 34914- 2733 May, [place] [address] 59414- 3900 May, Anxiety F41.9 [place] [id number] [place] [address] 21725- 0292 May, Anxiety F41.9 [place] [id number] [place] [address] 48586- 7763 May, [facility] [id number] [place] [address] 80755- 3161 09 May, 2017 Acute cystitis with hematuria N30.01 ; HIV antibody positive Z21 ; Primary insomnia F51.01 ; Gastritis determined by endoscopy K29.70 ; Low libido R68.82 ; Tobacco abuse Z72.0 and Vaginal candidiasis B37.3 [place] [id number] [place] [address] 50031- 8493 Apr, [facility] [id number] [place] [address] 64794- 4551 Apr, [facility] [id number] [place] [address] 66275- 6364 Apr, Allergic contact dermatitis, unspecified trigger L23.9 [facility] [id number] [place] [address] 83853- 9832 Apr, [facility] [id number] [place] [address] 65996- 0425 Apr, Irregular periods N92.6 ; Irritant dermatitis L24.9 and Anxiety F41.9 [facility] [id number] [place] [address] 26436 -6491 Apr, Vaginal discharge N89.8 and Folliculitis L73.9 [facility] [id number] [place] [address] 06681- 7379 Apr, [facility] [id number] [place] [address] 82381- 0434 Apr, [facility] [id number] [place] [address] 91034- 7954 Apr, [facility] [id number] [place] [address] 68085- 8765 Mar, HIV antibody positive Z21 ; Anxiety [...] R30.0 and Gastritis determined by endoscopy K29.70 [facility] [id number] [place] [address] 00334- 2549 Mar, [facility] [address] [place] [address] Mar, [facility] [id number] [place] [address] 38926- 6995 Mar, [facility] [id number] [place] [address] 52605- 9539 Mar, [facility] [id number] [place] [address] 74519- 6080 Mar, [facility] [id number] [place] [address] 25250 -5424 Mar, Vaginal horacio B37.3 [place] [id number] [place] [address] 10697- 5999 Feb, Dysuria R30.0 ; Acute cystitis with hematuria N30.01 ; HIV antibody positive Z21 ; Eczema, unspecified type L30.9 and Wound of left lower extremity, initial encounter S81.802A [place] [id number] [place] [address] 02174- 0699 Feb, [place] [id number] [place] [address] 57798- 9549 Feb, [place] [id number] [place] [address] 71041- 1762 13 Feb, 2017 [place] [id number] [place] [address] 82188- 8900 Feb, [place] [id number] [place] [address] 15847- 9022 08 Feb, 2017 Dermatitis L30.9 ; HIV antibody positive Z21 ; Bipolar 1 disorder with moderate marii F31.12 ; History of gastric bypass Z98.890 ; Primary insomnia F51.01 ; Tobacco abuse Z72.0 ; Anxiety F41.9 and Obesity (BMI 30.0-34.9) E66.9 [place] [id number] [place] [address] 05123- 7371 Jan, [facility] [address], [place] [address] 3971 Jan, Mood disorder F39 ; PTSD (post-traumatic stress disorder) F43.10 ; Methamphetamine use disorder, severe, 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 ; Alcohol use disorder, severe, in sustained remission F10.21 ; Cannabis use disorder, severe, in sustained remission F12.21 and Cocaine use disorder, severe , in sustained remission F14.21 [place] [id number] [place] [address] 99395- 7864 Jan, [facility] [id number] [place] [address] 37064- 2683 Jan, [facility] [id number] [place] [address] 88710- 9694 Jan, [place] [id number] [place] [address] 60341- 5826 Jan, [facility] [id number] [place] [address] 82118- 7743 Jan, Mood disorder F39 ; PTSD (post-traumatic stress disorder) F43.10 ; Methamphetamine use disorder, severe, 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 ; Alcohol use disorder, severe, in sustained remission F10.21 ; Cannabis use disorder, severe, in sustained remission F12.21 and Cocaine use disorder, severe , in sustained remission F14.21 [facility] [address], [place] [address]- 0919 Dec, [facility] [id number] [place] [address] 77332- 7440 Dec, [facility] [id number] [place] [address] 22437- 3349 Dec, ADHD, adult residual type F90.8 ; Post traumatic stress disorder (PTSD) F43.10 and Bipolar 1 disorder with moderate marii F31.12 [facility] [id number] [place] [address] 05631- 5912 Dec, Dysuria R30.0 ; Routine screening for STI (sexually transmitted infection) Z11.3 and Routine gynecological examination Z01.419 [facility] [id number] [place] [address] 26436- 6909 10 Dec, 2016 Eczema, unspecified type L30.9 ; History of UTI Z87.440 and Hospital discharge follow-up Z09 [facility] [address] 36505- 6179 09 Dec, 2016 [facility] [address] 75970- 0926 02 Dec, 2016 Visit for suture removal Z48.02 [facility] [address] 94957 -5304 28 Nov, 2016 [facility] [address] 28674- 6755 Nov, [facility] [address] 49405- 2796 Nov, [facility] [id number] [place] [address] 41034- 0293 Nov, [facility] [address] 83501- 4404 Nov, [facility] [id number] [place] [address] 46858- 4641 Nov, [facility] [id number] [place] [address] 09001- 0630 19 Nov, 2016 Rash R21 [facility] [id number] [place] [address] 63355 -8443 18 Nov, 2016 Abnormal stools R19.5 [facility] [id number] [place] [address] 78068 -8216 13 Nov, 2016 Rash R21 [facility] [id number] [place] [address] [phone] 12 Sep, 2016 Dental examination Z01.20 [facility] [address] [place] [address] 42199 -3780 10 Sep, 2016 Acute back pain M54.9 [place] [id number] [place] [address] 07160- 4715 28 Aug, 2016 [place] [id number] [place] [address] 41042- 7282 Aug, [facility] [address] 16834 -3954 Aug, Cough R05 and Community acquired pneumonia J18.9 [facility] [address] [id number] Jun, Dental examination Z01.20 [facility] [id number] [place] [address] 82677 -7863 May, Allergic contact dermatitis, unspecified trigger L23.9 [place] [id number] [place] [address] 20590- 1915 10 Apr, 2016 [place] [id number] [place] [address] 32634- 0590 Mar, Skin sore L98.9 [facility] [id number] [place] [address] 95799 -3624 Mar, Constipation, unspecified constipation type K59.00 [place] [address] [id number] [place] [address] 67711- 1794 Feb, Skin sore L98.9 ; Excoriation (skin-picking) disorder F42.4 and HIV antibody positive Z21 [id number] [place] [address] 94523- 8153 06 Feb, 2016 Routine health maintenance Z00.00 ; Family history of diabetes mellitus Z83.3 ; HIV antibody positive Z21 ; 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 ; Tobacco abuse Z72.0 ; Tobacco abuse counseling Z71.6 ; Restless legs syndrome G25.81 ; Generalized headaches R51 ; History of gastric bypass Z98.890 ; History of OH (myocardial infarction) I25.2 ; Pacemaker Z95.0 and Left hip pain M25.552 [facility] [address] [id number] [place] [id number] Jan, Encounter for dental examination and cleaning without abnormal findings Z01.20 IMMUNIZATIONS No Known Immunizations SOCIAL HISTORY Never Assessed REASON FOR VISIT Refill request PLAN OF CARE VITAL SIGNS MEDICATIONS Medication Instructions Dosage Frequency Start Date End Date Duration Status Hydrocortisone 1 % Externally Twice a day 1 application to affected area 12h 16 May, 2016 10 days Active Omeprazole 40 MG Orally Once a day 1 capsule 24h 30 days Active RESULTS No Results [...] Surgical History hernia repair Hospitalization History in [place] Dec 2015 Hospitalization History inpatient [facility]-unsure date Hospitalization History [facility] ED visit, uti 08/28/2017
--- OUTSIDE RECORDS SUMMARY | 2017-09-29 00:21 | XMS REPORT ---
Author Author MICHAEL MENJIVAR Organization [facility] Address [address] [place] [address] Care Team Providers Care Statuary Painter Name Role Phone MENJIVARMICHAEL Richard Unavailable PROBLEMS Type Condition ICD9-CM Code WHA29-QO Code Onset Dates Condition Status SNOMED Code Problem Hypertriglyceridemia E78.1 Active 642538543 Problem Gastritis determined by endoscopy K29.70 Active 4253717 Problem Iron deficiency anemia secondary to inadequate dietary iron intake D50.8 Active 828434015 Problem Obesity (BMI 30.0-34.9) E66.9 Active [id number] Problem HIV antibody positive Z21 Active 390226634 Problem Primary insomnia F51.01 Active 9342401 Problem Tobacco abuse counseling Z71.6 Active 543458555 Problem Chronic migraine without aura without status migrainosus, not intractable G43.709 Active 569126149 Problem Presence of cardiac pacemaker Z95.0 Active 282563479 Problem Recurrent major depressive disorder, in full remission F33.42 Active 795156162 Problem Irritable bowel syndrome with both constipation and diarrhea K58.2 Active 79011826 Problem Irritant dermatitis L24.9 Active 768507435 Problem ADHD, adult residual type F90.8 Active 209371323 Problem Generalized headaches R51 Active 572445978 Problem Tobacco abuse Z72.0 Active 950923004 Problem Low libido R68.82 Active 6575313 Problem Other specified cardiac arrhythmias I49.8 Active 377610923 Problem Irregular periods N92.6 Active 46176017 Problem Coronary artery disease involving comanche coronary artery of comanche heart without angina pectoris I25.10 Active 0780156148060 Problem Cannabis use disorder, severe, in sustained remission F12.21 Active 31810418 Problem Cocaine use disorder, severe, in sustained remission F14.21 Active 72087790 Problem Bipolar 1 disorder with moderate marii F31.12 Active 34201365 Problem Methamphetamine use disorder, severe, 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 Active 84861916 Problem PTSD (post-traumatic stress disorder) F43.10 Active 60187708 Problem Anxiety F41.9 Active 39091169 Problem Alcohol use disorder, severe, in sustained remission F10.21 Active 54655931 Problem Mood disorder F39 Active 25516662 ALLERGIES No Information ENCOUNTERS Encounter Location Date Diagnosis [facility] [id number] [place] [address] 38506- 1838 Sep, [facility] [id number] [place] [address] 46276 -8529 Aug, Abdominal pain R10.9 and Acute cystitis without hematuria N30.00 [facility] [id number] [place] [address] 56494- 1072 July, [facility] [id number] [place] [address] 76693- 7298 Jun, [facility] [id number] [place] [address] 84656- 4598 Jun, [facility] [id number] [place] [address] 62890- 2948 May, [facility] [id number] [place] [address] 09930- 2210 May, Irritable bowel syndrome with both constipation and diarrhea K58.2 ; Tobacco abuse Z72.0 ; Tobacco abuse counseling Z71.6 ; Low libido R68.82 and Alcohol use disorder, severe, in sustained remission F10.21 [facility] [id number] [place] [address] 44153- 5366 May, Tobacco abuse Z72.0 [facility] [id number] [place] [address] 43716- 4787 May, HIV antibody positive Z21 ; Irregular periods N92.6 and Low libido R68.82 [facility] [id number] [place] [address] 98526- 5054 May, Primary insomnia F51.01 and Folliculitis L73.9 [place] [id number] [place] [address] 12898- 0949 16 May, 2017 HIV antibody positive Z21 ; Irregular periods N92.6 and Low libido R68.82 [facility] [id number] [place] [address] 69132- 4531 May, [facility] [id number] [place] [address] 78355- 4376 May, [facility] [id number] [place] [address] 93168- 8304 May, [facility] [id number] [place] [address] 83605- 3503 May, Anxiety F41.9 [place] [id number] [place] [address] 13491- 1142 May, Anxiety F41.9 [place] [id number] [place] [address] 95064- 2658 May, [facility] [id number] [place] [address] 15193- 0223 09 May, 2017 Acute cystitis with hematuria N30.01 ; HIV antibody positive Z21 ; Primary insomnia F51.01 ; Gastritis determined by endoscopy K29.70 ; Low libido R68.82 ; Tobacco abuse Z72.0 and Vaginal candidiasis B37.3 [facility] [id number] [place] [address] 18843- 4218 Apr, [facility] [id number] [place] [address] 06785- 1025 Apr, [facility] [id number] [place] [address] 67474- 7792 Apr, Allergic contact dermatitis, unspecified trigger L23.9 [facility] [id number] [place] [address] 22358- 8514 Apr, [facility] [id number] [place] [address] 86708- 0625 Apr, Irregular periods N92.6 ; Irritant dermatitis L24.9 and Anxiety F41.9 [facility] [id number] [place] [address] 96490 -2071 Apr, Vaginal discharge N89.8 and Folliculitis L73.9 [facility] [id number] [place] [address] 59569- 8408 Apr, [place] [address] 44987- 9583 Apr, [place] [address] 39404- 2059 Apr, [place] [address] 96454- 4709 Mar, HIV antibody positive Z21 ; Anxiety [...] R30.0 and Gastritis determined by endoscopy K29.70 [facility] [place] [id number] [place] [address] 91535- 0012 Mar, [place] [id number] [place] [address] 73061- 4824 Mar, [place] [place] [id number] [place] [address] 26359- 0570 Mar, [place] [address] 26234- 7911 Mar, [place] [id number] [place] [address] 82599- 1314 Mar, [facility] [address] 99610 -3025 Mar, Vaginal horacio B37.3 [id number] [place] [address] 88153- 8416 Feb, Dysuria R30.0 ; Acute cystitis with hematuria N30.01 ; HIV antibody positive Z21 ; Eczema, unspecified type L30.9 and Wound of left lower extremity, initial encounter S81.802A [place] [address] 93158- 5387 Feb, [place] [address] 63290- 2462 Feb, [address] 81904- 1919 Feb, [place] [address] 42739- 5833 Feb, [address] 41492- 7944 Feb, Dermatitis L30.9 ; HIV antibody positive Z21 ; Bipolar 1 disorder with moderate marii F31.12 ; History of gastric bypass Z98.890 ; Primary insomnia F51.01 ; Tobacco abuse Z72.0 ; Anxiety F41.9 and Obesity (BMI 30.0-34.9) E66.9 [id number] [place] [address] 85546- 8791 Jan, [id number] [place] [address] 79917- 1606 Jan, Mood disorder F39 ; PTSD (post-traumatic stress disorder) F43.10 ; Methamphetamine use disorder, severe, 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 ; Alcohol use disorder, severe, in sustained remission F10.21 ; Cannabis use disorder, severe, in sustained remission F12.21 and Cocaine use disorder, severe , in sustained remission F14.21 [id number] [place] [address] 79697- 6135 Jan, [address] [id number] [place] [address] 99623- 0903 Jan, [place] [address] [place] [address] 26699- 3804 Jan, [place] [id number] [place] [address] 36171- 3168 Jan, [place] [id number] [place] [address] 99333- 4559 Jan, Mood disorder F39 ; PTSD (post-traumatic stress disorder) F43.10 ; Methamphetamine use disorder, severe, 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 ; Alcohol use disorder, severe, in sustained remission F10.21 ; Cannabis use disorder, severe, in sustained remission F12.21 and Cocaine use disorder, severe , in sustained remission F14.21 [place] [id number] [place] [address] 17818- 6370 Dec, [id number] [place] [address] 10121- 5783 Dec, [id number] [place] [address] 25686- 2480 Dec, ADHD, adult residual type F90.8 ; Post traumatic stress disorder (PTSD) F43.10 and Bipolar 1 disorder with moderate marii F31.12 [address] [place] [address] 84215- 5746 2016 Dysuria R30.0 ; Routine screening for STI (sexually transmitted infection) Z11.3 and Routine gynecological examination Z01.[address] [place] [address] 71767- 7968 10 Dec, 2016 Eczema, unspecified type L30.9 ; History of UTI Z87.440 and Hospital discharge follow-up Z09 [id number] [place] [address] 30754- 3318 09 Dec, [address] [place] [address] 98849- 3013 02 Dec, 2016 Visit for suture removal Z48.02 [facility] [id number] [address] 28 Nov, 2016 [facility] [id number] [place] [address] 43350- 2962 Nov, [facility] [address] [facility] [id number] [place] [address] 96235- 7146 Nov, [facility] [id number] [place] [address] 91292- 3465 Nov, [facility] [id number] [place] [address] 23303- 2330 Nov, [facility] [id number] [place] [address] 67616- 0071 Nov, [facility] [id number] [place] [address] 38032- 9735 Nov, Rash R21 [facility] [id number] [place] [address] 52507 -1265 18 Nov, [address] [facility] [id number] [place] [address] 89903 -3424 13 Nov, 2016 Rash R21 [facility] [id number] [place] [address] [id number] 12 Sep, [address] [facility] [id number] [place] [address] 81754 -3723 Sep, Acute back pain M54.9 [facility] [id number] [place] [address] 61048- 3836 Aug, [facility] [id number] [place] [address] 48863- 6181 Aug, [facility] [id number] [place] [address] 28318 -5369 Aug, Cough R05 and Community acquired pneumonia J18.9 [facility] [address] [place] [address] [id number] Jun, Dental examination Z01.20 [facility] [id number] [place] [address] 65233 -5914 May, Allergic contact dermatitis, unspecified trigger L23.9 [facility] [id number] [place] [address] 26331- 7524 Apr, [facility] [id number] [place] [address] 52936- 4049 Mar, Skin sore L98.9 [facility] [id number] [place] [address] 39049 -2979 Mar, Constipation, unspecified constipation type K59.00 [facility] [id number] [place] [address] 92634- 3436 Feb, Skin sore L98.9 ; Excoriation (skin-picking) disorder F42.4 and HIV antibody positive Z21 [facility] [id number] [place] [address] 94494- 2134 06 Feb, 2016 Routine health maintenance Z00.00 ; Family history of diabetes mellitus Z83.3 ; HIV antibody positive Z21 ; 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 ; Tobacco abuse Z72.0 ; Tobacco abuse counseling Z71.6 ; Restless legs syndrome G25.81 ; Generalized headaches R51 ; History of gastric bypass Z98.890 ; History of CT (myocardial infarction) I25.2 ; Pacemaker Z95.0 and Left hip pain M25.552 [facility] [address] [place] [address] [id number] 18 Jan, 2016 Encounter for dental examination and cleaning without abnormal findings Z01.20 IMMUNIZATIONS No Known Immunizations SOCIAL HISTORY Never Assessed REASON FOR VISIT Eczema/scalp lesion note/PA for Clobetasol shampoo PLAN OF CARE VITAL SIGNS MEDICATIONS Medication Instructions Dosage Frequency Start Date End Date Duration Status Clobetasol Propionate 0.05 % Externally Once a day 1 application to scalp 24h Apr, July, 30 days Active RESULTS No Results PROCEDURES [...] Surgical History hernia repair Hospitalization History in [place] Dec 2015 Hospitalization History inpatient [facility]-unsure date
--- OUTSIDE RECORDS SUMMARY | 2017-09-29 00:23 | XMS REPORT ---
Author Author MICHAEL MENJIVAR Organization [facility] Address [address] [place] [address] Care Team Providers Care Wait Staff Name Role Phone MENJIVARMICHAEL Richard Unavailable PROBLEMS Type Condition ICD9-CM Code CQO38-GN Code Onset Dates Condition Status SNOMED Code Problem Hypertriglyceridemia E78.1 Active 563258028 Problem Gastritis determined by endoscopy K29.70 Active 9765132 Problem Iron deficiency anemia secondary to inadequate dietary iron intake D50.8 Active 891170112 Problem Obesity (BMI 30.0-34.9) E66.9 Active 650853833895482 Problem HIV antibody positive Z21 Active 806848262 Problem Primary insomnia F51.01 Active 7818831 Problem Tobacco abuse counseling Z71.6 Active 536538901 Problem Chronic migraine without aura without status migrainosus, not intractable G43.709 Active 504889472 Problem Presence of cardiac pacemaker Z95.0 Active 316676619 Problem Recurrent major depressive disorder, in full remission F33.42 Active 547550218 Problem Irritable bowel syndrome with both constipation and diarrhea K58.2 Active 92491537 Problem Irritant dermatitis L24.9 Active 033737207 Problem ADHD, adult residual type F90.8 Active 099666625 Problem Generalized headaches R51 Active 947401960 Problem Tobacco abuse Z72.0 Active 604450126 Problem Low libido R68.82 Active 7005990 Problem Other specified cardiac arrhythmias I49.8 Active 335897422 Problem Irregular periods N92.6 Active 19353246 Problem Coronary artery disease involving [place] coronary artery of [place] heart without angina pectoris I25.10 Active 4583842619891 Problem Cannabis use disorder, severe, in sustained remission F12.21 Active 82949198 Problem Cocaine use disorder, severe, in sustained remission F14.21 Active 14793077 Problem Bipolar 1 disorder with moderate marii F31.12 Active 93235549 Problem Methamphetamine use disorder, severe, 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 Active 75597112 Problem PTSD (post-traumatic stress disorder) F43.10 Active 26458683 Problem Anxiety F41.9 Active 35061065 Problem Alcohol use disorder, severe, in sustained remission F10.21 Active 46461127 Problem Mood disorder F39 Active 67273143 ALLERGIES No Information ENCOUNTERS Encounter Location Date Diagnosis [facility] [id number] [place] [address] [phone]- 1424 Sep, [facility] [id number] [place] [address] [id number] -[phone] Aug, Abdominal pain R10.9 and Acute cystitis without hematuria N30.00 [facility] [id number] [place] [address] [phone]- 8653 July, [facility] [id number] [place] [address] 19659- 3977 Jun, [facility] [id number] [place] [address] 68426- 4579 Jun, [facility] [id number] [place] [address] 74162- 7649 May, [facility] [id number] [place] [address] 42613- 2111 May, Irritable bowel syndrome with both constipation and diarrhea K58.2 ; Tobacco abuse Z72.0 ; Tobacco abuse counseling Z71.6 ; Low libido R68.82 and Alcohol use disorder, severe, in sustained remission F10.21 [facility] [id number] [place] [address] 58945- 6567 May, Tobacco abuse Z72.0 [facility] [id number] [place] [address] 64153- 9113 May, HIV antibody positive Z21 ; Irregular periods N92.6 and Low libido R68.82 [facility] [id number] [place] [address] 64953- 6884 May, Primary insomnia F51.01 and Folliculitis L73.9 [facility] [id number] [place] [address] 00809- 5448 16 May, 2017 HIV antibody positive Z21 ; Irregular periods N92.6 and Low libido R68.82 [facility] [id number] [place] [address] 65001- 4954 May, [facility] [id number] [place] [address] 10557- 9975 May, [facility] [id number] [place] [address] 27429- 9421 May, [facility] [id number] [place] [address] 14537- 0394 May, Anxiety F41.9 [facility] [id number] [place] [address] 43680- 0075 May, Anxiety F41.9 [facility] [id number] [place] [address] 03083- 1963 May, [facility] [id number] [place] [address] 88586- 7766 09 May, 2017 Acute cystitis with hematuria N30.01 ; HIV antibody positive Z21 ; Primary insomnia F51.01 ; Gastritis determined by endoscopy K29.70 ; Low libido R68.82 ; Tobacco abuse Z72.0 and Vaginal candidiasis B37.3 [facility] [id number] [place] [address] 71605- 3914 Apr, [facility] [id number] [place] [address] 89417- 7804 Apr, [facility] [id number] [place] [address] 76899- 3046 Apr, Allergic contact dermatitis, unspecified trigger L23.9 [facility] [id number] [place] [address] 20831- 2527 Apr, [facility] [id number] [place] [address] 48511- 1506 Apr, Irregular periods N92.6 ; Irritant dermatitis L24.9 and Anxiety F41.9 [facility] [id number] [place] [address] 23120 -5926 Apr, Vaginal discharge N89.8 and Folliculitis L73.9 [facility] [id number] [place] [address] 15983- 1989 Apr, [place] [address] 98418- 8755 Apr, [place] [address] 44793- 7011 Apr, [facility] [facility] [address] 29310- 2835 Mar, HIV antibody positive Z21 ; Anxiety [...] R30.0 and Gastritis determined by endoscopy K29.70 [facility] [id number] [place] [address] 63827- 5497 Mar, [facility] [id number] [place] [address] 49438- 0951 Mar, [facility] [id number] [place] [address] 18623- 7524 Mar, [place] [address] 72169- 1921 Mar, [facility] [id number] [place] [address] 46062- 4113 Mar, [facility] [address] 03383 -6198 Mar, Vaginal horacio B37.3 [address] [id number] [place] [address] 22805- 2193 Feb, Dysuria R30.0 ; Acute cystitis with hematuria N30.01 ; HIV antibody positive Z21 ; Eczema, unspecified type L30.9 and Wound of left lower extremity, initial encounter S81.802A [place] [address] 49642- 7492 Feb, [place] [address] 40317- 6487 Feb, [address] 27354- 9791 Feb, [place] [address] 26632- 6167 Feb, [address] 41722- 8276 Feb, Dermatitis L30.9 ; HIV antibody positive Z21 ; Bipolar 1 disorder with moderate marii F31.12 ; History of gastric bypass Z98.890 ; Primary insomnia F51.01 ; Tobacco abuse Z72.0 ; Anxiety F41.9 and Obesity (BMI 30.0-34.9) E66.9 [address] [id number] [place] [address] 66939- 6864 Jan, [address] [id number] [place] [address] 64247- 6291 Jan, Mood disorder F39 ; PTSD (post-traumatic stress disorder) F43.10 ; Methamphetamine use disorder, severe, 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 ; Alcohol use disorder, severe, in sustained remission F10.21 ; Cannabis use disorder, severe, in sustained remission F12.21 and Cocaine use disorder, severe , in sustained remission F14.21 [address] [id number] [place] [address] 53094- 7672 Jan, [address] [id number] [place] [address] 03013- 1289 Jan, [place] [id number] [place] [address] 77048- 9016 Jan, [place] [id number] [place] [address] 31745- 9146 Jan, [facility] [place] [id number] [place] [address] 93847- 4061 Jan, Mood disorder F39 ; PTSD (post-traumatic stress disorder) F43.10 ; Methamphetamine use disorder, severe, 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 ; Alcohol use disorder, severe, in sustained remission F10.21 ; Cannabis use disorder, severe, in sustained remission F12.21 and Cocaine use disorder, severe , in sustained remission F14.21 [facility] [id number] [place] [address] 46532- 5626 Dec, [address] [id number] [place] [address] 91913- 9679 Dec, [address] [id number] [place] [address] 02146- 1664 Dec, ADHD, adult residual type F90.8 ; Post traumatic stress disorder (PTSD) F43.10 and Bipolar 1 disorder with moderate marii F31.12 [id number] [place] [address] 82959- 3974 2016 Dysuria R30.0 ; Routine screening for STI (sexually transmitted infection) Z11.3 and Routine gynecological examination Z01.419 [address] [place] [address] 42583- 7150 10 Dec, 2016 Eczema, unspecified type L30.9 ; History of UTI Z87.440 and Hospital discharge follow-up Z09 [address] [id number] [place] [address] 66835- 2151 09 Dec, 2016 [address] [place] [address] 95559- 9205 02 Dec, 2016 Visit for suture removal Z48.02 [facility] [address] [id number] [address] 28 Nov, 2016 [facility] [id number] [place] [address] 79231- 6386 Nov, [facility] [address] [facility] [id number] [place] [address] 07058- 4009 Nov, [facility] [id number] [place] [address] 40793- 6755 Nov, [facility] [id number] [place] [address] 14210- 4072 Nov, [facility] [id number] [place] [address] 51344- 1219 Nov, [facility] [id number] [place] [address] 48081- 1189 Nov, Rash R21 [facility] [id number] [place] [address] 74825 -7119 18 Nov, 2016 Abnormal stools R19.5 [facility] [id number] [place] [address] 34116 -2159 13 Nov, 2016 Rash R21 [facility] [id number] [place] [address] [id number] [phone] Sep, 2016 Dental examination Z01.20 [facility] [id number] [place] [address] 03298 -4437 Sep, Acute back pain M54.9 [facility] [id number] [place] [address] 94867- 5612 Aug, [facility] [id number] [place] [address] 18673- 9604 Aug, [facility] [id number] [place] [address] 74785 -9533 Aug, Cough R05 and Community acquired pneumonia J18.9 [facility] [address] [place], [place] [address] [id number] Jun, Dental examination Z01.20 [facility] [id number] [place] [address] 66816 -7530 May, Allergic contact dermatitis, unspecified trigger L23.9 [facility] [id number] [place] [address] 55506- 6927 Apr, [facility] [address] 04019- 1415 Mar, Skin sore L98.9 [facility] [id number] [place] [address] 19810 -0220 Mar, Constipation, unspecified constipation type K59.00 [facility] [id number] [place] [address] 72488- 5045 Feb, Skin sore L98.9 ; Excoriation (skin-picking) disorder F42.4 and HIV antibody positive Z21 [facility] [id number] [place] [address] 52572- 7237 06 Feb, 2016 Routine health maintenance Z00.00 ; Family history of diabetes mellitus Z83.3 ; HIV antibody positive Z21 ; 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 ; Tobacco abuse Z72.0 ; Tobacco abuse counseling Z71.6 ; Restless legs syndrome G25.81 ; Generalized headaches R51 ; History of gastric bypass Z98.890 ; History of MA (myocardial infarction) I25.2 ; Pacemaker Z95.0 and Left hip pain M25.552 [facility] [id number] [place] [address] [id number] Jan, Encounter for dental examination and cleaning without abnormal findings Z01.20 IMMUNIZATIONS No Known Immunizations SOCIAL HISTORY Never Assessed REASON FOR VISIT Triage note PLAN OF CARE VITAL SIGNS MEDICATIONS Unknown [...] Surgical History hernia repair Hospitalization History in [place] Dec 2015 Hospitalization History inpatient [facility]-unsure date
--- OUTSIDE RECORDS SUMMARY | 2017-09-29 00:27 | XMS REPORT ---
Author Author CHERYL Shearer [facility] Address [address] [place] [address] Care Team Providers Care Pumping Supervisor Name Role Phone CHERYL Shearer Unavailable PROBLEMS Type Condition ICD9-CM Code OEA18-EH Code Onset Dates Condition Status SNOMED Code Problem Hypertriglyceridemia E78.1 Active 326898779 Problem Gastritis determined by endoscopy K29.70 Active 8934885 Problem Iron deficiency anemia secondary to inadequate dietary iron intake D50.8 Active 584547066 Problem Obesity (BMI 30.0-34.9) E66.9 Active 992444729496391 Problem HIV antibody positive Z21 Active 152290903 Problem Primary insomnia F51.01 Active 1515310 Problem Tobacco abuse counseling Z71.6 Active 329050438 Problem Chronic migraine without aura without status migrainosus, not intractable G43.709 Active 594630685 Problem Presence of cardiac pacemaker Z95.0 Active 088015043 Problem Recurrent major depressive disorder, in full remission F33.42 Active 793142960 Problem Irritable bowel syndrome with both constipation and diarrhea K58.2 Active 27700080 Problem Irritant dermatitis L24.9 Active 555406142 Problem ADHD, adult residual type F90.8 Active 157753635 Problem Generalized headaches R51 Active 388744444 Problem Tobacco abuse Z72.0 Active 404335522 Problem Low libido R68.82 Active 8486772 Problem Other specified cardiac arrhythmias I49.8 Active 059640253 Problem Irregular periods N92.6 Active 45704465 Problem 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 Active 7768122614817 Problem Cannabis use disorder, severe, in sustained remission F12.21 Active 11576720 Problem Cocaine use disorder, severe, in sustained remission F14.21 Active 74922013 Problem Bipolar 1 disorder with moderate marii F31.12 Active 53774606 Problem Methamphetamine use disorder, severe, 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 Active 77837737 Problem PTSD (post-traumatic stress disorder) F43.10 Active 88671010 Problem Anxiety F41.9 Active 01177343 Problem Alcohol use disorder, severe, in sustained remission F10.21 Active 12631680 Problem Mood disorder F39 Active 83293465 ALLERGIES No Information ENCOUNTERS Encounter Location Date Diagnosis [place] [id number], [place] [address] Jun, [place] [address] [place] [id number] [place] [address] 42387- 8521 Jun, [place] [address] [place] [id number] [place] [address] 67822- 5258 May, [place] [address] [place] [id number] [place] [address] 82232- 0616 29 May, 2017 Irritable bowel syndrome with both constipation and diarrhea K58.2 ; Tobacco abuse Z72.0 ; Tobacco abuse counseling Z71.6 ; Low libido R68.82 and Alcohol use disorder, severe, in sustained remission F10.21 [place] [address] [place] [id number] [place] [address] 61348- 3732 23 May, 2017 Tobacco abuse Z72.0 [place] [address] [place] [id number] [place] [address] 91791- 6156 19 May, 2017 HIV antibody positive Z21 ; Irregular periods N92.6 and Low libido R68.82 [place] [address] [place] [id number] [place] [address] 11179- 3666 May, Primary insomnia F51.01 and Folliculitis L73.9 [place] [id number] [place] [address] 56396- 1529 16 May, 2017 HIV antibody positive Z21 ; Irregular periods N92.6 and Low libido R68.82 [place] [id number] [place] [address] 79674- 9654 May, [place] [address] [place] [id number] [place] [address] 60308- 0426 May, [place] [address] [place] [id number] [place] [address] 92177- 0778 13 May, 2017 [place] [address] 30810- 1056 May, Anxiety F41.9 [place] [address] [place] [id number] [place] [address] 76090- 4620 May, Anxiety F41.9 [place] [address] 33509- 8477 May, [place] [address] 21582- 1784 09 May, 2017 Acute cystitis with hematuria N30.01 ; HIV antibody positive Z21 ; Primary insomnia F51.01 ; Gastritis determined by endoscopy K29.70 ; Low libido R68.82 ; Tobacco abuse Z72.0 and Vaginal candidiasis B37.3 [place] [address] 74863- 5900 Apr, [place] [address] 05395- 1169 Apr, [place] [address] 61230- 3246 Apr, Allergic contact dermatitis, unspecified trigger L23.9 [place] [address] [place] [id number] [place] [address] 72275- 9618 Apr, [place] [address] [place] [id number] [place] [address] 03186- 7912 Apr, Irregular periods N92.6 ; Irritant dermatitis L24.9 and Anxiety F41.9 [facility] [address] 07677 -9925 16 Apr, 2017 Vaginal discharge N89.8 and Folliculitis L73.9 [place] [address] [place] [id number] [place] [address] 07731- 2626 Apr, [place] [address] [place] [id number] [place] [address] 22881- 7925 Apr, [place] [address] 67410- 5751 Apr, [place] [address] 79671- 4852 Mar, HIV antibody positive Z21 ; Anxiety [...] R30.0 and Gastritis determined by endoscopy K29.70 [place] [address] 40521- 2999 Mar, [place] [address] 72744- 3289 Mar, [place] [address] 37706- 5468 Mar, [place] [address] 31413- 2647 Mar, [place] [address] [place] [id number] [place] [address] 17849- 9102 Mar, [facility] [address] 95[address]8 Mar, Vaginal horacio B37.3 [place] [address] 04230- 5100 Feb, Dysuria R30.0 ; Acute cystitis with hematuria N30.01 ; HIV antibody positive Z21 ; Eczema, unspecified type L30.9 and Wound of left lower extremity, initial encounter S81.802A [place] [address] 86531- 2446 Feb, [facility] [address] [place] [id number] [place] [address] 60583- 4559 Feb, [facility] [address] [place] [address] [id number] [place] [address] 85634- 5500 Feb, [facility] [address] [place] [id number] [place] [address] 11851- 3576 Feb, [facility] [address] [place] [id number] [place] [address] 98626- 3386 Feb, Dermatitis L30.9 ; HIV antibody positive Z21 ; Bipolar 1 disorder with moderate marii F31.12 ; History of gastric bypass Z98.890 ; Primary insomnia F51.01 ; Tobacco abuse Z72.0 ; Anxiety F41.9 and Obesity (BMI 30.0-34.9) E66.9 [place] [address] [place] [id number] [place] [address] 13767- 1478 Jan, [place] [address] [place] [id number] [place] [address] 91344- 1387 Jan, Mood disorder F39 ; PTSD (post-traumatic stress disorder) F43.10 ; Methamphetamine use disorder, severe, 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 ; Alcohol use disorder, severe, in sustained remission F10.21 ; Cannabis use disorder, severe, in sustained remission F12.21 and Cocaine use disorder, severe , in sustained remission F14.21 [place] [address] [place] [address] 04611- 8063 Jan, [place] [id number] [place] [address] 55390- 3752 Jan, [place] [address] [place] [id number] [place] [address] 56135- 6825 Jan, [facility] [address] [place] [id number] [place] [address] 70186- 5679 Jan, [place] [address] [place] [id number] [place] [address] 39113- 8920 Jan, Mood disorder F39 ; PTSD (post-traumatic stress disorder) F43.10 ; Methamphetamine use disorder, severe, 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 ; Alcohol use disorder, severe, in sustained remission F10.21 ; Cannabis use disorder, severe, in sustained remission F12.21 and Cocaine use disorder, severe , in sustained remission F14.21 [place] [address] [place] [id number] [place] [address] 32166- 3532 Dec, [place] [address] 28991- 6884 Dec, [place] [id number] [place] [address] 10260- 5686 Dec, ADHD, adult residual type F90.8 ; Post traumatic stress disorder (PTSD) F43.10 and Bipolar 1 disorder with moderate marii F31.12 [place] [id number] [place] [address] 71034- 0998 Dec, Dysuria R30.0 ; Routine screening for STI (sexually transmitted infection) Z11.3 and Routine gynecological examination Z01.419 [place] [id number] [place] [address] 13715- 6766 10 Dec, 2016 Eczema, unspecified type L30.9 ; History of UTI Z87.440 and Hospital discharge follow-up Z09 [place] [address] [place] [id number] [place] [address] 54771- 3316 Dec, [place] [address] [place] [id number] [place] [address] 60973- 2591 Dec, Visit for suture removal Z48.02 [facility] [address] [place] [id number] [place] [address] 78185 -4014 Nov, [place] [address] [place] [id number] [place] [address] 64553- 4030 Nov, [place] [address] [place] [id number] [place] [address] 75041- 8644 Nov, [place] [address] [place] [address] [address] 4798 22 Nov, 2016 [facility] [address] [place] [id number] [place] [address] 50395- 2178 22 Nov, 2016 [facility] [address] [place] [id number] [place] [address] 84948- 6268 21 Nov, 2016 [facility] [address] [place] [address] [id number] [place] [address] 93866- 3303 19 Nov, 2016 Rash R21 [facility] [address] [place] [address] [id number] [place] [address] 34526 -6497 18 Nov, 2016 Abnormal stools R19.5 [facility] [address] [place] [id number] [place] [address] 09903 -9234 13 Nov, 2016 Rash R21 [facility] [address] [id number] [place] [address] [id number] Sep, Dental examination Z01.20 [facility] [address] [place] [id number] [place] [address] 56846 -1333 Sep, Acute back pain M54.9 [facility] [address] [place] [id number] [place] [address] 60763- 7123 Aug, [facility] [address] [place] [id number] [place] [address] 06406- 6524 Aug, [facility] [address] [place] [id number] [place] [address] 88007 -3953 Aug, Cough R05 and Community acquired pneumonia J18.9 [facility] [id number] [place] [address] [id number] Jun, Dental examination Z01.20 [facility] [address] [place] [id number] [place] [address] 69257 -4441 16 May, 2016 Allergic contact dermatitis, unspecified trigger L23.9 [facility] [address] [place] [id number] [place] [address] 40677- 2235 10 Apr, 2016 [facility] [address] [place] [id number] [address]- 0238 Mar, Skin sore L98.9 [facility] [address], [place] [address] Mar, Constipation, unspecified constipation type K59.00 [facility] [address] [id number] [address]- 3397 Feb, Skin sore L98.9 ; Excoriation (skin-picking) disorder F42.4 and HIV antibody positive Z21 [facility] [address] [facility] [id number] [address] Feb, Routine health maintenance Z00.00 ; Family history of diabetes mellitus Z83.3 ; HIV antibody positive Z21 ; 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 ; Tobacco abuse Z72.0 ; Tobacco abuse counseling Z71.6 ; Restless legs syndrome G25.81 ; Generalized headaches R51 ; History of gastric bypass Z98.890 ; History of AK (myocardial infarction) I25.2 ; Pacemaker Z95.0 and Left hip pain M25.552 [facility] [address] [facility] [id number] [id number] Jan, Encounter for dental examination and cleaning without abnormal findings Z01.20 IMMUNIZATIONS No Known Immunizations SOCIAL HISTORY Never Assessed REASON FOR VISIT intake PLAN OF CARE Activity Details Follow Up 1 Week Reason: VITAL SIGNS MEDICATIONS Unknown Medications RESULTS No Results PROCEDURES Procedure Date Ordered Result Body Site Psych diagnostic evaluation, new patient Jan 01, 2017 INSTRUCTIONS MEDICATIONS ADMINISTERED No Known Medications MEDICAL [...] Surgical History hernia repair Hospitalization History in [place] Dec 2015 Hospitalization History inpatient [place]-unsure date
--- OUTSIDE RECORDS SUMMARY | 2017-09-29 00:29 | XMS REPORT ---
Author Author MICHAEL MENJIVAR Organization [facility] Address [address] [place] [address] Care Team Providers Care Registered Nurse Maternal Child Name Role Phone MENJIVARMICHAEL Richard Unavailable PROBLEMS Type Condition ICD9-CM Code NME48-NP Code Onset Dates Condition Status SNOMED Code Problem Hypertriglyceridemia E78.1 Active 663373754 Problem Gastritis determined by endoscopy K29.70 Active 1441191 Problem Iron deficiency anemia secondary to inadequate dietary iron intake D50.8 Active 533674127 Problem Obesity (BMI 30.0-34.9) E66.9 Active 382710361858463 Problem HIV antibody positive Z21 Active 317019380 Problem Primary insomnia F51.01 Active 3696709 Problem Tobacco abuse counseling Z71.6 Active 018483599 Problem Chronic migraine without aura without status migrainosus, not intractable G43.709 Active 758824076 Problem Presence of cardiac pacemaker Z95.0 Active 616877022 Problem Recurrent major depressive disorder, in full remission F33.42 Active 776352013 Problem Irritable bowel syndrome with both constipation and diarrhea K58.2 Active 68930816 Problem Irritant dermatitis L24.9 Active 932900047 Problem ADHD, adult residual type F90.8 Active 987150858 Problem Generalized headaches R51 Active 815470003 Problem Tobacco abuse Z72.0 Active 630736628 Problem Low libido R68.82 Active 9207954 Problem Other specified cardiac arrhythmias I49.8 Active 305655780 Problem Irregular periods N92.6 Active 65442270 Problem Coronary artery disease involving [place] coronary artery of [place] heart without angina pectoris I25.10 Active 3080198015058 Problem Cannabis use disorder, severe, in sustained remission F12.21 Active 17441383 Problem Cocaine use disorder, severe, in sustained remission F14.21 Active 76187750 Problem Bipolar 1 disorder with moderate marii F31.12 Active 00668836 Problem Methamphetamine use disorder, severe, 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 Active 20374617 Problem PTSD (post-traumatic stress disorder) F43.10 Active 32941029 Problem Anxiety F41.9 Active 71376461 Problem Alcohol use disorder, severe, in sustained remission F10.21 Active 90670221 Problem Mood disorder F39 Active 86504544 ALLERGIES No Information ENCOUNTERS Encounter Location Date Diagnosis [place] [id number] [place] [address] 52715- 3349 13 Jun, 2017 [place] [address] [address]46- [address]44 Jun, [place] [address] 87736- 7463 May, [place] [address] 71222- 0549 29 May, 2017 Irritable bowel syndrome with both constipation and diarrhea K58.2 ; Tobacco abuse Z72.0 ; Tobacco abuse counseling Z71.6 ; Low libido R68.82 and Alcohol use disorder, severe, in sustained remission F10.21 [place] [id number] [place] [address] 97486- 8472 23 May, 2017 Tobacco abuse Z72.0 [place] [address] 72899- 2379 19 May, 2017 HIV antibody positive Z21 ; Irregular periods N92.6 and Low libido R68.82 [place] [id number] [place] [address] 51811- 5012 May, Primary insomnia F51.01 and Folliculitis L73.9 [place] [id number] [place] [address] 88925- 6701 16 May, 2017 HIV antibody positive Z21 ; Irregular periods N92.6 and Low libido R68.82 [place] [id number] [place] [address] 26082- 0252 15 May, 2017 [place] [id number] [place] [address] 98891- 4424 May, [place] [address] 77719- 1031 May, [facility] [address] 97298- 1808 May, Anxiety F41.9 [facility] [address] 94195- 8074 May, Anxiety F41.9 [place] [address] 90152- 9491 May, [place] [address] 66306- 2841 09 May, 2017 Acute cystitis with hematuria N30.01 ; HIV antibody positive Z21 ; Primary insomnia F51.01 ; Gastritis determined by endoscopy K29.70 ; Low libido R68.82 ; Tobacco abuse Z72.0 and Vaginal candidiasis B37.3 [place] [address] 25642- 4210 Apr, [place] [address] 58994- 0312 Apr, [place] [address] 32986- 7104 Apr, Allergic contact dermatitis, unspecified trigger L23.9 [place] [address] 11873- 1893 Apr, [place] [address] 95619- 9780 Apr, Irregular periods N92.6 ; Irritant dermatitis L24.9 and Anxiety F41.9 [facility] [address] 01312 -2354 16 Apr, 2017 Vaginal discharge N89.8 and Folliculitis L73.9 [place] [address] 66578- 4981 Apr, [place] [address] 42116- 7805 Apr, [place] [address] 45019- 3585 Apr, [place] [address] 25945- 0255 Mar, HIV antibody positive Z21 ; Anxiety [...] R30.0 and Gastritis determined by endoscopy K29.70 [place] [address] 76321- 9314 Mar, [place] [address] 72335- 8554 Mar, [place] [address] 45350- 8884 Mar, [place] [address] 86733- 3413 Mar, [place] [address] 79167- 3839 Mar, [facility] [address] 65986 -6691 Mar, Vaginal horacio B37.3 [place] [address] 50152- 6858 Feb, Dysuria R30.0 ; Acute cystitis with hematuria N30.01 ; HIV antibody positive Z21 ; Eczema, unspecified type L30.9 and Wound of left lower extremity, initial encounter S81.802A [place] [address] 63023- 3436 Feb, [facility] [id number] [place] [address] 71655- 9183 Feb, [facility] [id number] [place] [address] 49368- 0023 Feb, [facility] [id number] [place] [address] 36628- 0347 Feb, [facility] [id number] [place] [address] 12468- 2794 Feb, Dermatitis L30.9 ; HIV antibody positive Z21 ; Bipolar 1 disorder with moderate marii F31.12 ; History of gastric bypass Z98.890 ; Primary insomnia F51.01 ; Tobacco abuse Z72.0 ; Anxiety F41.9 and Obesity (BMI 30.0-34.9) E66.9 [place] [id number] [place] [address] 76073- 1395 Jan, [place] [id number] [place] [address] 02201- 7263 Jan, Mood disorder F39 ; PTSD (post-traumatic stress disorder) F43.10 ; Methamphetamine use disorder, severe, 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 ; Alcohol use disorder, severe, in sustained remission F10.21 ; Cannabis use disorder, severe, in sustained remission F12.21 and Cocaine use disorder, severe , in sustained remission F14.21 [place] [id number] [place] [address] 59218- 5690 Jan, [facility] [id number] [place] [address] 09421- 6776 Jan, [place] [id number] [place] [address] 55837- 5623 Jan, [facility] [id number] [place] [address] 39905- 7319 Jan, [facility] [id number] [place] [address] 26974- 4517 07 Nov, 2017 Mood disorder F39 ; PTSD (post-traumatic stress disorder) F43.10 ; Methamphetamine use disorder, severe, 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 ; Alcohol use disorder, severe, in sustained remission F10.21 ; Cannabis use disorder, severe, in sustained remission F12.21 and Cocaine use disorder, severe , in sustained remission F14.21 [place] [id number] [place] [address] 63035- 8246 Dec, [place] [address] 72835- 7034 Dec, [place] [id number] [place] [address] 29327- 6782 Dec, ADHD, adult residual type F90.8 ; Post traumatic stress disorder (PTSD) F43.10 and Bipolar 1 disorder with moderate marii F31.12 [place] [address] 49397- 6240 2016 Dysuria R30.0 ; Routine screening for STI (sexually transmitted infection) Z11.3 and Routine gynecological examination Z01.419 [place] [id number] [place] [address] 77601- 3963 10 Dec, 2016 Eczema, unspecified type L30.9 ; History of UTI Z87.440 and Hospital discharge follow-up Z09 [place] [id number] [place] [address] 22312- 4952 Dec, [facility] [id number] [place] [address] 54056- 7562 02 Dec, 2016 Visit for suture removal Z48.02 [facility] [id number] [place] [address] 15040 -6678 Nov, [place] [address] 53633- 4073 Nov, [facility] [id number] [place] [address] 43478- 6100 Nov, [place] [address] 39452- 1849 Nov, [facility] [id number] [place] [address] 55303- 1041 22 Nov, 2016 [facility] [id number] [place] [address] 38839- 6967 21 Nov, 2016 [facility] [id number] [place] [address] 54770- 1210 19 Nov, 2016 Rash R21 [facility] [id number] [place] [address] 81524 -2384 18 Nov, 2016 Abnormal stools R19.5 [facility] [id number] [place] [address] 34046 -0834 13 Nov, 2016 Rash R21 [facility] [id number] [place] [address] [id number] Sep, Dental examination Z01.20 [facility] [id number] [place] [address] 88492 -2758 Sep, Acute back pain M54.9 [facility] [id number] [place] [address] 03821- 8487 Aug, [facility] [id number] [place] [address] 09481- 6676 Aug, [facility] [id number] [place] [address] 42154 -6683 Aug, Cough R05 and Community acquired pneumonia J18.9 [facility] [id number] [place] [address] [id number] Jun, Dental examination Z01.20 [facility] [id number] [place] [address] 44964 -4598 16 May, 2016 Allergic contact dermatitis, unspecified trigger L23.9 [facility] [id number] [place] [address] 15091- 7765 10 Apr, 2016 [facility] [address] [place] [address]- 8036 Mar, Skin sore L98.9 [facility] [id number] [address] Mar, Constipation, unspecified constipation type K59.00 [facility] [id number] [place] [address] 85885- 5809 Feb, Skin sore L98.9 ; Excoriation (skin-picking) disorder F42.4 and HIV antibody positive Z21 [facility] [id number] [place] [address] 34031- 4271 Feb, Routine health maintenance Z00.00 ; Family history of diabetes mellitus Z83.3 ; HIV antibody positive Z21 ; 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 ; Tobacco abuse Z72.0 ; Tobacco abuse counseling Z71.6 ; Restless legs syndrome G25.81 ; Generalized headaches R51 ; History of gastric bypass Z98.890 ; History of [place] (myocardial infarction) I25.2 ; Pacemaker Z95.0 and Left hip pain M25.552 [facility] [id number] [place] [address] [phone] Jan, Encounter for dental examination and cleaning without abnormal findings Z01.20 IMMUNIZATIONS No Known Immunizations SOCIAL HISTORY Never Assessed REASON FOR VISIT Requests return call PLAN OF CARE VITAL SIGNS MEDICATIONS Unknown [...] Surgical History hernia repair Hospitalization History in [place] Dec 2015 Hospitalization History inpatient [facility]-unsure date
--- OUTSIDE RECORDS SUMMARY | 2017-09-29 00:29 | XMS REPORT ---
Author Author [facility] CHAMPION [facility] [place] Address [address] [place] [address] Care Team Providers Care Buckshot Swage Operator Name Role Phone SARWAT CHAMPION Unavailable PROBLEMS Type Condition ICD9-CM Code LZY73-[id number] Code Onset Dates Condition Status SNOMED Code Problem Hypertriglyceridemia E78.1 Active 235174880 Problem Gastritis determined by endoscopy K29.70 Active 0117424 Problem Iron deficiency anemia secondary to inadequate dietary iron intake D50.8 Active 036789101 Problem Obesity (BMI 30.0-34.9) E66.9 Active 661034727460204 Problem HIV antibody positive Z21 Active 647211608 Problem Primary insomnia F51.01 Active 1149118 Problem Tobacco abuse counseling Z71.6 Active 195720536 Problem Chronic migraine without aura without status migrainosus, not intractable G43.709 Active 720916240 Problem Presence of cardiac pacemaker Z95.0 Active 480196979 Problem Recurrent major depressive disorder, in full remission F33.42 Active 550702624 Problem Irritable bowel syndrome with both constipation and diarrhea K58.2 Active 00955050 Problem Irritant dermatitis L24.9 Active 714112842 Problem ADHD, adult residual type F90.8 Active 076182663 Problem Generalized headaches R51 Active 225447795 Problem Tobacco abuse Z72.0 Active 918479167 Problem Low libido R68.82 Active 4214967 Problem Other specified cardiac arrhythmias I49.8 Active 951753159 Problem Irregular periods N92.6 Active 65787715 Problem Coronary artery disease involving [place] coronary artery of [place] heart without angina pectoris I25.10 Active 9653532292012 Problem Cannabis use disorder, severe, in sustained remission F12.21 Active 08759483 Problem Cocaine use disorder, severe, in sustained remission F14.21 Active 18430844 Problem Bipolar 1 disorder with moderate marii F31.12 Active 49028959 Problem Methamphetamine use disorder, severe, 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 Active 61497411 Problem PTSD (post-traumatic stress disorder) F43.10 Active 47138943 Problem Anxiety F41.9 Active 42731421 Problem Alcohol use disorder, severe, in sustained remission F10.21 Active 32261752 Problem Mood disorder F39 Active 49839816 ALLERGIES No Known Allergies ENCOUNTERS Encounter Location Date Diagnosis [place] [facility] [id number] [place] [address] 88655- 8226 13 Jun, 2017 [place] [id number] [place] [address] 85778- 7776 12 Jun, 2017 [place] [id number] [place] [address] 93935- 8055 29 May, 2017 [place] [address] 22134- 7015 29 May, 2017 Irritable bowel syndrome with both constipation and diarrhea K58.2 ; Tobacco abuse Z72.0 ; Tobacco abuse counseling Z71.6 ; Low libido R68.82 and Alcohol use disorder, severe, in sustained remission F10.21 [place] [id number] [place] [address] 40030- 8678 23 May, 2017 Tobacco abuse Z72.0 [place] [id number] [place] [address] 86141- 5480 19 May, 2017 HIV antibody positive Z21 ; Irregular periods N92.6 and Low libido R68.82 [place] [id number] [place] [address] 16312- 2081 May, Primary insomnia F51.01 and Folliculitis L73.9 [place] [id number] [place] [address] 36521- 2870 16 May, 2017 HIV antibody positive Z21 ; Irregular periods N92.6 and Low libido R68.82 [place] [id number] [place] [address] 56153- 3368 15 May, 2017 [place] [id number] [place] [address] 53152- 3393 May, [place] [address] 53307- 8260 13 May, 2017 [facility] [place] [address] 42908- 1445 May, Anxiety F41.9 [facility] [place] [address] 88231- 3760 May, Anxiety F41.9 [place] [address] 92398- 7529 May, [place] [address] 17996- 7898 09 May, 2017 Acute cystitis with hematuria N30.01 ; HIV antibody positive Z21 ; Primary insomnia F51.01 ; Gastritis determined by endoscopy K29.70 ; Low libido R68.82 ; Tobacco abuse Z72.0 and Vaginal candidiasis B37.3 [place] [address] 71288- 8887 Apr, [place] [address] 06688- 8000 Apr, [place] [address] 14428- 8319 Apr, Allergic contact dermatitis, unspecified trigger L23.9 [place] [address] 65672- 4375 Apr, [place] [address] 16157- 0499 Apr, Irregular periods N92.6 ; Irritant dermatitis L24.9 and Anxiety F41.9 [facility] [address] 64700 [address]8920 16 Apr, 2017 Vaginal discharge N89.8 and Folliculitis L73.9 [place] [address] 82302- 9811 Apr, [place] [address] [place] [address] 8205 07 Apr, 2017 [facility] [place] [address] 37541- 7047 Apr, [place] [address] 60496- 8209 Mar, HIV antibody positive Z21 ; Anxiety [...] R30.0 and Gastritis determined by endoscopy K29.70 [facility] [place] [address] 49824- 2481 Mar, [place] [address] 25766- 4968 Mar, [place] [address] 69545- 2490 Mar, [place] [address] 41412- 5812 Mar, [place] [id number] [place] [address] 04570- 8171 Mar, [facility] [address] 601[address] -6430 Mar, Vaginal horacio B37.3 [place] [address] 85734- 7024 Feb, Dysuria R30.0 ; Acute cystitis with hematuria N30.01 ; HIV antibody positive Z21 ; Eczema, unspecified type L30.9 and Wound of left lower extremity, initial encounter S81.802A [place] [address] 79274- 9946 Feb, [facility] [place] [id number] [place] [address] 65933- 1382 Feb, [facility] [place] [id number] [place] [address] 68158- 7780 Feb, [facility] [place] [id number] [place] [address] 75936- 1614 Feb, [facility] [place] [id number] [place] [address] 64429- 2174 Feb, Dermatitis L30.9 ; HIV antibody positive Z21 ; Bipolar 1 disorder with moderate marii F31.12 ; History of gastric bypass Z98.890 ; Primary insomnia F51.01 ; Tobacco abuse Z72.0 ; Anxiety F41.9 and Obesity (BMI 30.0-34.9) E66.9 [place] [id number] [place] [address] 87548- 9088 Jan, [place] [id number] [place] [address] 10966- 0531 Jan, Mood disorder F39 ; PTSD (post-traumatic stress disorder) F43.10 ; Methamphetamine use disorder, severe, 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 ; Alcohol use disorder, severe, in sustained remission F10.21 ; Cannabis use disorder, severe, in sustained remission F12.21 and Cocaine use disorder, severe , in sustained remission F14.21 [place] [id number] [place] [address] 03294- 3843 Jan, [facility] [place] [id number] [place] [address] 23165- 8814 Jan, [place] [id number] [place] [address] 72961- 9192 Jan, [facility] [place] [id number] [place] [address] 46845- 3037 Jan, [facility] [place] [address] [place] [address] 31015- 0573 Jan, Mood disorder F39 ; PTSD (post-traumatic stress disorder) F43.10 ; Methamphetamine use disorder, severe, 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 ; Alcohol use disorder, severe, in sustained remission F10.21 ; Cannabis use disorder, severe, in sustained remission F12.21 and Cocaine use disorder, severe , in sustained remission F14.21 [place] [id number] [place] [address] 72469- 7946 Dec, [place] [address] 61047- 6175 Dec, [place] [address] 39548- 4957 Dec, ADHD, adult residual type F90.8 ; Post traumatic stress disorder (PTSD) F43.10 and Bipolar 1 disorder with moderate marii F31.12 [place] [id number] [place] [address] 51135- 7966 Dec, Dysuria R30.0 ; Routine screening for STI (sexually transmitted infection) Z11.3 and Routine gynecological examination Z01.419 [place] [id number] [place] [address] 92071- 3288 10 Dec, 2016 Eczema, unspecified type L30.9 ; History of UTI Z87.440 and Hospital discharge follow-up Z09 [facility] [place] [id number] [place] [address] 03674- 3760 Dec, [facility] [place] [id number] [place] [address] 70197- 3984 Dec, Visit for suture removal Z48.02 [facility] [id number] [place] [address] 48095 -0809 Nov, [place] [id number] [place] [address] 70902- 7517 Nov, [facility] [place] [id number] [place] [address] 09283- 1590 Nov, [facility] [place] [address] [place] [address]- 4209 Nov, [facility] [place] [id number] [place] [address] 90696- 2272 22 Nov, 2016 [facility] [place] [id number] [place] [address] 36674- 7284 Nov, [facility] [place] [id number] [place] [address] 86806- 5198 19 Nov, 2016 Rash R21 [facility] [id number] [place] [address] 23019 -2455 18 Nov, 2016 Abnormal stools R19.5 [facility] [address] 44463 -6406 13 Nov, 2016 Rash R21 [facility] [id number] [place] [address] [id number] Sep, Dental examination Z01.20 [facility] [id number] [place] [address] 69607 -7013 Sep, Acute back pain M54.9 [facility] [place] [id number] [place] [address] 91590- 8770 Aug, [facility] [place] [id number] [place] [address] 54913- 6403 Aug, [facility] [id number] [place] [address] 11884 -3532 Aug, Cough R05 and Community acquired pneumonia J18.9 [facility] [id number] [place] [address] [id number] Jun, Dental examination Z01.20 [facility] [id number] [place] [address] 23521 -7750 16 May, 2016 Allergic contact dermatitis, unspecified trigger L23.9 [facility] [place] [id number] [place] [address] 42788- 6228 10 Apr, 2016 [facility] [place] [address] [address] 8027 Mar, Skin sore L98.9 [facility] [address] [place] [address]609 Mar, Constipation, unspecified constipation type K59.00 [facility] [place] [address] [place] [address]- 3772 Feb, Skin sore L98.9 ; Excoriation (skin-picking) disorder F42.4 and HIV antibody positive Z21 [facility] [place] [address] [place] [address]- 6178 06 Feb, 2016 Routine health maintenance Z00.00 ; Family history of diabetes mellitus Z83.3 ; HIV antibody positive Z21 ; 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 ; Tobacco abuse Z72.0 ; Tobacco abuse counseling Z71.6 ; Restless legs syndrome G25.81 ; Generalized headaches R51 ; History of gastric bypass Z98.890 ; History of UT (myocardial infarction) I25.2 ; Pacemaker Z95.0 and Left hip pain M25.552 [facility] [address] [id number] Jan, Encounter for dental examination and cleaning without abnormal findings Z01.20 IMMUNIZATIONS No Known Immunizations SOCIAL HISTORY Never Assessed REASON FOR VISIT Well Woman Exam, PT has concerns about an "out break" on her libea.PT says it is painful and itchy. PT is also wanting a cream for her exzima outbreaks- Hewitt MALIKA, PT thinks she also has a UTI, abdominal pain, painful urination PLAN OF CARE Activity Details Follow Up 1 Year for WWE, sooner prn Reason: VITAL SIGNS Height 64 in 2016-12-31 Weight 180.4 lbs 2016-12-31 Temperature 98.3 degrees Fahrenheit 2016-12-31 Heart Rate 66 bpm 2016-12-31 Respiratory Rate 18 2016-12-31 BMI 30.96 kg/m2 2016-12-31 Blood pressure systolic 110 mmHg 2016-12-31 Blood pressure diastolic 68 mmHg 2016-12-31 MEDICATIONS Medication Instructions Dosage Frequency Start Date End Date Duration Status HydrOXYzine HCl 25 MG Orally every 8 hrs 1 tablet as needed 8h Feb, 30 days Active Evotaz 300-150 MG Orally Once a day 1 tablet with food 24h Active Triamcinolone Acetonide 0.025 % Externally Twice a day apply thin layer to eczematous areas 12h Feb, 14 days Active Omeprazole 20 MG Orally Once a day 2 capsules 24h Active Requip 0.5 MG Orally Once a day take one tablet 30-60 minutes prior to sleep 24h 06 Feb, 2016 Active Triamcinolone Acetonide 0.1 % Externally Twice a day 1 application to affected area 12h Nov, Active Macrobid 100 mg Orally every 12 hrs 1 capsule with food 12h Dec, Dec, 7 day(s) Active RESULTS Name Result Date Reference Range TRICHOMONAS (IN HOUSE) 2016-12-31 TRICHOMONAS negative Control Lot # [id number] Exp date 12/02 UA LONG DIP (IN HOUSE) 2016-12-31 Lot # [id number] Exp date 10/2017 Clarity cloudy Color yellow Odor none GLU negative FABRIZIO negative KET nrgative SG 1.015 BLO trace-intact pH 5.5 Protein negative URO 0.2 NIT positive XAVIER 3+ Lot # Exp date BACTERIAL VAGINOSIS (IN HOUSE) 2016-12-31 RESULTS negative Control Lot # [id number] Exp date 09/01 HSV 1/2 ANTIBODY IgG 2016-12-31 HSV 1 IgG, Type Spec 12.80 0.00-0.90 HSV 2 IgG, Type Spec 3.43 0.00-0.90 HSV 1/2 ANTIBODY IgM 2016-12-31 HSV 1 IgM Antibodies <1:10 <1:10 HSV 2 IgM Antibodies <1:10 <1:10 CULTURE, GENITAL 2016-12-31 Genital Culture, Routine Final report Result 1 Result 2 CULTURE, URINE 2016-12-31 Urine Culture, Routine Final report Result 1 Klebsiella oxytoca Antimicrobial Susceptibility PAP TEST W/ HPV REGARDLESS 2016-12-31 DIAGNOSIS: Specimen adequacy: Clinician provided ICD10: Performed by: QC reviewed by: . . Note: HPV, high-risk Negative Negative GC/CHLAM PROBE (STATE) 2016-12-31 CHLAMYDIA GC PDF Report 2016-12-31 PDF Report1 LCLS PAP TEST W/ HPV REGARDLESS 2016-12-31 DIAGNOSIS: Specimen adequacy: Clinician provided ICD10: Performed by: QC reviewed by: . . Note: HPV, high-risk Negative Negative GC/CHLAM PROBE (STATE) 2016-12-31 CHLAMYDIA GC HEP C ANTIBODY (STATE) 2016-12-31 RESULTS SYPHILIS (STATE) 2016-12-31 HEP B SURFACE ANTIGEN (STATE) 2016-12-31 HEP B ANTIBODY HEP B ANTIBODY (L) HEP B ANTIBODY (STATE) PDF Report 2016-12-31 PDF Report1 LCLS CULTURE, URINE 2016-12-31 Urine Culture, Routine Final report Result 1 Klebsiella oxytoca Antimicrobial Susceptibility CULTURE, GENITAL 2016-12-31 Genital Culture, Routine Final report Result 1 Result 2 HSV 1/2 ANTIBODY IgG 2016-12-31 HSV 1 IgG, Type Spec 12.80 0.00-0.90 HSV 2 IgG, Type Spec 3.43 0.00-0.90 HSV 1/2 ANTIBODY IgM 2016-12-31 HSV 1 IgM Antibodies <1:10 <1:10 HSV 2 IgM Antibodies <1:10 <1:10 PROCEDURES Procedure Date Ordered Result Body Site URINALYSIS, AUTO, W/O SCOPE Dec 31, 2016 No Charge Dec 31, 2016 ANNUAL WELLNESS VST; PPS SUBSQT VST Dec 31, 2016 [facility] Dec 31, 2016 HERPES SIMPLEX TEST Dec 31, 2016 SPECIMEN HANDLING Dec 31, 2016 Bacterial Vaginosis In House Dec 31, 2016 INSTRUCTIONS MEDICATIONS ADMINISTERED No Known Medications MEDICAL [...] Surgical History hernia repair Hospitalization History in [place] Dec 2015 Hospitalization History inpatient [facility]-unsure date
--- OUTSIDE RECORDS SUMMARY | 2017-09-29 00:46 | XMS REPORT ---
Author Author MICHAEL MENJIVAR Organization [facility] Address [address] [place] [address] Care Team Providers Care Side Piece Coverer Name Role Phone MENJIVARMICHAEL Richard Unavailable PROBLEMS Type Condition ICD9-CM Code TBC98-TN Code Onset Dates Condition Status SNOMED Code Problem Hypertriglyceridemia E78.1 Active 215857798 Problem Gastritis determined by endoscopy K29.70 Active 9246185 Problem Iron deficiency anemia secondary to inadequate dietary iron intake D50.8 Active 095114956 Problem Obesity (BMI 30.0-34.9) E66.9 Active 165591650965192 Problem HIV antibody positive Z21 Active 817806581 Problem Primary insomnia F51.01 Active 7189235 Problem Tobacco abuse counseling Z71.6 Active 070807857 Problem Chronic migraine without aura without status migrainosus, not intractable G43.709 Active 204578225 Problem Presence of cardiac pacemaker Z95.0 Active 628517623 Problem Recurrent major depressive disorder, in full remission F33.42 Active 893108419 Problem Irritable bowel syndrome with both constipation and diarrhea K58.2 Active 04261762 Problem Irritant dermatitis L24.9 Active 234677720 Problem ADHD, adult residual type F90.8 Active 751722049 Problem Generalized headaches R51 Active 299485958 Problem Tobacco abuse Z72.0 Active 237939978 Problem Low libido R68.82 Active 8468021 Problem Other specified cardiac arrhythmias I49.8 Active 928385280 Problem Irregular periods N92.6 Active 29517829 Problem Coronary artery disease involving little traverse coronary artery of little traverse heart without angina pectoris I25.10 Active 1547240292767 Problem Cannabis use disorder, severe, in sustained remission F12.21 Active 49238927 Problem Cocaine use disorder, severe, in sustained remission F14.21 Active 70165159 Problem Bipolar 1 disorder with moderate marii F31.12 Active 94752556 Problem Methamphetamine use disorder, severe, 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 Active 67749165 Problem PTSD (post-traumatic stress disorder) F43.10 Active 75657885 Problem Anxiety F41.9 Active 23064711 Problem Alcohol use disorder, severe, in sustained remission F10.21 Active 76010326 Problem Mood disorder F39 Active 73382263 ALLERGIES No Information ENCOUNTERS Encounter Location Date Diagnosis [facility] [id number] [place] [address] 91515- 0253 July, [place] [id number] [place] [address] 86633- 6887 Jun, [place] [id number] [place] [address] 27271- 1374 Jun, [place] [id number] [place] [address] 65507- 9943 May, [place] [id number] [place] [address] 84714- 7597 May, Irritable bowel syndrome with both constipation and diarrhea K58.2 ; Tobacco abuse Z72.0 ; Tobacco abuse counseling Z71.6 ; Low libido R68.82 and Alcohol use disorder, severe, in sustained remission F10.21 [place] [id number] [place] [address] 38181- 9489 23 May, 2017 Tobacco abuse Z72.0 [place] [id number] [place] [address] 64853- 0903 May, HIV antibody positive Z21 ; Irregular periods N92.6 and Low libido R68.82 [place] [id number] [place] [address] 97690- 7629 May, Primary insomnia F51.01 and Folliculitis L73.9 [place] [id number] [place] [address] 15382- 4377 16 May, 2017 HIV antibody positive Z21 ; Irregular periods N92.6 and Low libido R68.82 [place] [id number] [place] [address] 32998- 3115 15 May, 2017 [place] [address] 62338- 6520 15 May, 2017 [facility] [address] 90031- 3560 May, [place] [address] 81352- 0855 13 May, 2017 Anxiety F41.9 [place] [address] 96435- 6282 May, Anxiety F41.9 [place] [address] 33088- 0218 May, [place] [address] 28116- 0112 09 May, 2017 Acute cystitis with hematuria N30.01 ; HIV antibody positive Z21 ; Primary insomnia F51.01 ; Gastritis determined by endoscopy K29.70 ; Low libido R68.82 ; Tobacco abuse Z72.0 and Vaginal candidiasis B37.3 [place] [address] 46054- 6987 Apr, [place] [address] 53708- 1710 Apr, [place] [address] 41151- 4742 Apr, Allergic contact dermatitis, unspecified trigger L23.9 [place] [address] 06193- 7351 Apr, [place] [address] 71763- 1332 Apr, Irregular periods N92.6 ; Irritant dermatitis L24.9 and Anxiety F41.9 [facility] [address] 04461 -0704 16 Apr, 2017 Vaginal discharge N89.8 and Folliculitis L73.9 [place] [address] [place] [address]- 4454 Apr, [place] [id number] [place] [address] 87279- 1976 Apr, [facility] [address] 59302- 6913 Apr, [place] [address] 03252- 4287 Mar, HIV antibody positive Z21 ; Anxiety [...] R30.0 and Gastritis determined by endoscopy K29.70 [place] [id number] [place] [address] 63597- 8234 Mar, [place] [id number] [place] [address] 00289- 5513 Mar, [place] [id number] [place] [address] 13692- 2298 Mar, [place] [id number] [place] [address] 34978- 6651 Mar, [place] [id number] [place] [address] 19993- 1885 Mar, [facility] [id number] [place] [address] 38674 -4743 Mar, Vaginal horacio B37.3 [place] [id number] [place] [address] 03764- 0773 Feb, Dysuria R30.0 ; Acute cystitis with hematuria N30.01 ; HIV antibody positive Z21 ; Eczema, unspecified type L30.9 and Wound of left lower extremity, initial encounter S81.802A [facility] [address] [address] 2569 Feb, [facility] [id number] [place] [address] 41065- 7274 Feb, [facility] [id number] [place] [address] 67407- 3855 Feb, [facility] [id number] [place] [address] 56713- 2210 Feb, [facility] [address] [place] [address] 86389- 4490 08 Feb, 2017 Dermatitis L30.9 ; HIV antibody positive Z21 ; Bipolar 1 disorder with moderate marii F31.12 ; History of gastric bypass Z98.890 ; Primary insomnia F51.01 ; Tobacco abuse Z72.0 ; Anxiety F41.9 and Obesity (BMI 30.0-34.9) E66.9 [place] [address] [place] [address] 78459- 4768 Jan, [facility] [id number] [place] [address] 29469- 5132 Jan, Mood disorder F39 ; PTSD (post-traumatic stress disorder) F43.10 ; Methamphetamine use disorder, severe, 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 ; Alcohol use disorder, severe, in sustained remission F10.21 ; Cannabis use disorder, severe, in sustained remission F12.21 and Cocaine use disorder, severe , in sustained remission F14.21 [facility] [address] [address]- 1514 Jan, [facility] [id number] [place] [address] 46660- 8213 Jan, [facility] [address] [address]- 3063 Jan, [facility] [id number] [place] [address] 71392- 8296 Jan, [place] [id number] [place] [address] 41661- 3076 Jan, Mood disorder F39 ; PTSD (post-traumatic stress disorder) F43.10 ; Methamphetamine use disorder, severe, 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 ; Alcohol use disorder, severe, in sustained remission F10.21 ; Cannabis use disorder, severe, in sustained remission F12.21 and Cocaine use disorder, severe , in sustained remission F14.[address] 64514- 8828 Dec, [address] 64145- 8575 Dec, [address] 32053- 6911 Dec, ADHD, adult residual type F90.8 ; Post traumatic stress disorder (PTSD) F43.10 and Bipolar 1 disorder with moderate marii F31.[address] 27601- 5327 2016 Dysuria R30.0 ; Routine screening for STI (sexually transmitted infection) Z11.3 and Routine gynecological examination Z01.419 [place] [id number] [place] [address] 47322- 9404 10 Dec, 2016 Eczema, unspecified type L30.9 ; History of UTI Z87.440 and Hospital discharge follow-up Z09 [place] [id number] [place] [address] 72278- 5470 Dec, [place] [id number] [place] [address] 24022- 2455 Dec, Visit for [facility] removal Z48.02 [facility] [id number] [place] [address] 58026 -0701 Nov, [place] [id number] [place] [address] 96072- 0285 Nov, [address] 89444- 5493 Nov, [facility] [id number] [place] [address] 56151- 5035 Nov, [facility] [id number] [place] [address] 25391- 2336 Nov, [facility] [id number] [place] [address] 26074- 8579 Nov, [facility] [id number] [place] [address] 06151- 0809 19 Nov, 2016 Rash R21 [facility] [id number] [place] [address] 16269 -7761 18 Nov, 2016 Abnormal stools R19.5 [facility] [id number] [place] [address] 10754 -0306 13 Nov, 2016 Rash R21 [facility] [id number] [place] [address] [id number] 12 Sep, 2016 Dental examination Z01.20 [facility] [id number] [place] [address] 87108 -2808 10 Sep, 2016 Acute back pain M54.9 [facility] [id number] [place] [address] 59705- 4524 Aug, [facility] [id number] [place] [address] 61415- 0703 Aug, [facility] [id number] [place] [address] 70439 -2453 Aug, Cough R05 and Community acquired pneumonia J18.9 [facility] [id number] [place] [address] [id number] Jun, Dental examination Z01.20 [facility] [id number] [place] [address] 38216 -4981 16 May, 2016 Allergic contact dermatitis, unspecified trigger L23.9 [facility] [id number] [address]- 4789 Apr, [facility] [address] [place] [address] 44490- 9686 Mar, Skin sore L98.9 [facility] [address] [place] [address] 87956 -1290 Mar, Constipation, unspecified constipation type K59.00 [facility] [id number] [place] [address] 38895- 2912 Feb, Skin sore L98.9 ; Excoriation (skin-picking) disorder F42.4 and HIV antibody positive Z21 [facility] [id number] [place] [address] 692575- 6256 Feb, Routine health maintenance Z00.00 ; Family history of diabetes mellitus Z83.3 ; HIV antibody positive Z21 ; 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 ; Tobacco abuse Z72.0 ; Tobacco abuse counseling Z71.6 ; Restless legs syndrome G25.81 ; Generalized headaches R51 ; History of gastric bypass Z98.890 ; History of MN (myocardial infarction) I25.2 ; Pacemaker Z95.0 and Left hip pain M25.552 [facility] [address] [place] [address] [phone] Jan, Encounter for dental examination and cleaning without abnormal findings Z01.20 IMMUNIZATIONS No Known Immunizations SOCIAL HISTORY Never Assessed REASON FOR VISIT Refill Request PLAN OF CARE VITAL SIGNS MEDICATIONS Unknown [...] Surgical History hernia repair Hospitalization History in [place] Dec 2015 Hospitalization History inpatient [place]
--- OUTSIDE RECORDS SUMMARY | 2017-09-29 02:01 | XMS REPORT ---
Author Author MICHAEL MENJIVAR Organization [facility] Address [address] [place] [address] Care Team Providers Care [employer]er Name Role Phone MENJIVARNESHA RichardELE Unavailable PROBLEMS Type Condition ICD9-CM Code FID23-OD Code Onset Dates Condition Status SNOMED Code Problem Hypertriglyceridemia E78.1 Active 768416864 Problem Gastritis determined by endoscopy K29.70 Active 8607597 Problem Iron deficiency anemia secondary to inadequate dietary iron intake D50.8 Active 023188578 Problem Obesity (BMI 30.0-34.9) E66.9 Active 355556622906387 Problem HIV antibody positive Z21 Active 598540827 Problem Primary insomnia F51.01 Active 2702535 Problem Tobacco abuse counseling Z71.6 Active 995782186 Problem Chronic migraine without aura without status migrainosus, not intractable G43.709 Active 970668596 Problem Presence of cardiac pacemaker Z95.0 Active 792846641 Problem Recurrent major depressive disorder, in full remission F33.42 Active 443559841 Problem Irritable bowel syndrome with both constipation and diarrhea K58.2 Active 10630323 Problem Irritant dermatitis L24.9 Active 245160284 Problem ADHD, adult residual type F90.8 Active 451673140 Problem Generalized headaches R51 Active 544892491 Problem Tobacco abuse Z72.0 Active 051991749 Problem Low libido R68.82 Active 7788430 Problem Other specified cardiac arrhythmias I49.8 Active 957639348 Problem Irregular periods N92.6 Active 72491574 Problem Coronary artery disease involving zuni coronary artery of zuni heart without angina pectoris I25.10 Active 4717929727577 Problem Cannabis use disorder, severe, in sustained remission F12.21 Active 03129425 Problem Cocaine use disorder, severe, in sustained remission F14.21 Active 93770054 Problem Bipolar 1 disorder with moderate marii F31.12 Active 69197682 Problem Methamphetamine use disorder, severe, 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 Active 12246205 Problem PTSD (post-traumatic stress disorder) F43.10 Active 57195931 Problem Anxiety F41.9 Active 47316052 Problem Alcohol use disorder, severe, in sustained remission F10.21 Active 76643783 Problem Mood disorder F39 Active 18856477 ALLERGIES No Known Allergies ENCOUNTERS Encounter Location Date Diagnosis [facility] [id number] [address] 05 Aug, 2017 Abdominal pain R10.9 and Acute cystitis without hematuria N30.00 [facility] [id number] [place] [address] 70064- 5356 July, [facility] [id number] [place] [address] 63505- 0061 Jun, [place] [facility] [id number] [place] [address] 87393- 2844 Jun, [facility] [id number] [place] [address] 40341- 6413 May, [facility] [id number] [place] [address] 58326- 8168 29 May, 2017 Irritable bowel syndrome with both constipation and diarrhea K58.2 ; Tobacco abuse Z72.0 ; Tobacco abuse counseling Z71.6 ; Low libido R68.82 and Alcohol use disorder, severe, in sustained remission F10.21 [facility] [id number] [place] [address] 51278- 8473 23 May, 2017 Tobacco abuse Z72.0 [facility] [id number] [place] [address] 25069- 9492 May, HIV antibody positive Z21 ; Irregular periods N92.6 and Low libido R68.82 [facility] [id number] [place] [address] 73733- 4888 May, Primary insomnia F51.01 and Folliculitis L73.9 [facility] [id number] [place] [address] 86372- 7406 May, HIV antibody positive Z21 ; Irregular periods N92.6 and Low libido R68.82 [facility] [id number] [place] [address] 37620- 9038 May, [facility] [id number] [place] [address] 70420- 6002 May, [facility] [id number] [place] [address] 73525- 7539 May, [facility] [id number] [place] [address] 86265- 7268 May, Anxiety F41.9 [facility] [id number] [place] [address] 43870- 9306 May, Anxiety F41.9 [facility] [id number] [place] [address] 49101- 9334 May, [facility] [id number] [place] [address] 65040- 2339 May, Acute cystitis with hematuria N30.01 ; HIV antibody positive Z21 ; Primary insomnia F51.01 ; Gastritis determined by endoscopy K29.70 ; Low libido R68.82 ; Tobacco abuse Z72.0 and Vaginal candidiasis B37.3 [facility] [id number] [place] [address] 65098- 0161 Apr, [facility] [id number] [place] [address] 94822- 9257 Apr, [facility] [id number] [place] [address] 77629- 3790 Apr, Allergic contact dermatitis, unspecified trigger L23.9 [facility] [id number] [place] [address] 07657- 7433 Apr, [facility] [id number] [place] [address] 94564- 4365 Apr, Irregular periods N92.6 ; Irritant dermatitis L24.9 and Anxiety F41.9 [facility] [id number] [place] [address] 29984 -9659 16 Apr, 2017 Vaginal discharge N89.8 and Folliculitis L73.9 [facility] [address] 18269- 2501 Apr, [facility] [address] 71696- 4137 Apr, [facility] [address] 48228- 1850 Apr, [facility] [address] 34759- 6209 Mar, HIV antibody positive Z21 ; Anxiety [...] R30.0 and Gastritis determined by endoscopy K29.70 [facility] [address] 47945- 0484 Mar, [facility] [id number] [place] [address] 74599- 7037 Mar, [facility] [id number] [place] [address] 90259- 1911 Mar, [facility] [id number] [place] [address] 35273- 6223 Mar, [facility] [address] 01826- 6294 Mar, [facility] [id number] [place] [address] 29937 -5547 Mar, Vaginal horacio B37.3 [facility] [address] 90144- 6610 Feb, Dysuria R30.0 ; Acute cystitis with hematuria N30.01 ; HIV antibody positive Z21 ; Eczema, unspecified type L30.9 and Wound of left lower extremity, initial encounter S81.802A [facility] [id number] [place] [address] 73199- 4260 Feb, [place] [address] 32687- 9310 Feb, [place] [address] 95979- 6382 Feb, [place] [address] 44053- 2621 Feb, [place] [address] 19227- 0918 Feb, Dermatitis L30.9 ; HIV antibody positive Z21 ; Bipolar 1 disorder with moderate marii F31.12 ; History of gastric bypass Z98.890 ; Primary insomnia F51.01 ; Tobacco abuse Z72.0 ; Anxiety F41.9 and Obesity (BMI 30.0-34.9) E66.9 [facility] [id number] [place] [address] 49536- 4265 Jan, [facility] [id number] [place] [address] 94524- 2158 Jan, Mood disorder F39 ; PTSD (post-traumatic stress disorder) F43.10 ; Methamphetamine use disorder, severe, 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 ; Alcohol use disorder, severe, in sustained remission F10.21 ; Cannabis use disorder, severe, in sustained remission F12.21 and Cocaine use disorder, severe , in sustained remission F14.21 [facility] [id number] [place] [address] 19113- 0608 14 Jan, 2017 [facility] [id number] [place] [address] 28610- 4735 Jan, [facility] [id number] [place] [address] 24285- 8245 Jan, [facility] [id number] [place] [address] 99514- 0868 Jan, [place] [address] [phone]- 7455 Jan, Mood disorder F39 ; PTSD (post-traumatic stress disorder) F43.10 ; Methamphetamine use disorder, severe, 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 ; Alcohol use disorder, severe, in sustained remission F10.21 ; Cannabis use disorder, severe, in sustained remission F12.21 and Cocaine use disorder, severe , in sustained remission F14.21 [place] [address] 00832- 8618 Dec, [facility] [id number] [place] [address] 10705- 0125 Dec, [address] 17936- 0022 Dec, ADHD, adult residual type F90.8 ; Post traumatic stress disorder (PTSD) F43.10 and Bipolar 1 disorder with moderate marii F31.12 [place] [address] 44757- 7054 2016 Dysuria R30.0 ; Routine screening for STI (sexually transmitted infection) Z11.3 and Routine gynecological examination Z01.419 [id number] [place] [address] 26000- 8427 10 Dec, 2016 Eczema, unspecified type L30.9 ; History of UTI Z87.440 and Hospital discharge follow-up Z09 [place] [facility] [id number] [place] [address] 03616- 1674 09 Dec, [address] 18008- 2493 Dec, Visit for suture removal Z48.02 [facility] [id number] [place] [address] 98745 -2108 Nov, [facility] [address] [id number] [address] Nov, [facility] [id number] [place] [address] 90164- 3344 Nov, [facility] [id number] [place] [address] 38512- 4320 Nov, [facility] [id number] [place] [address] 25752- 7716 Nov, [facility] [id number] [place] [address] 57439- 3079 Nov, [facility] [id number] [place] [address] 15267- 2500 Nov, Rash R21 [facility] [id number] [place] [address] 15458 -3330 18 Nov, 2016 Abnormal stools R19.5 [facility] [id number] [place] [address] 43317 -7894 Nov, Rash R21 [facility] [id number] [place] [address] [id number] Sep, Dental examination Z01.20 [facility] [id number] [place] [address] 36087 -5081 Sep, Acute back pain M54.9 [facility] [address] [place] [address] 78639- 8044 Aug, [facility] [address] [place] [address] 86100- 9797 Aug, [facility] [id number] [place] [address] 29274 -7161 Aug, Cough R05 and Community acquired pneumonia J18.9 [facility] [id number] [place] [address] [id number] Jun, Dental examination Z01.20 [facility] [address] [place] [address] 29492 -4726 May, Allergic contact dermatitis, unspecified trigger L23.9 [facility] [address] 54003- 2953 10 Apr, 2016 [facility] [id number] [place] [address] 11695- 9844 Mar, Skin sore L98.9 [facility] [id number] [place] [address] 87538 -3633 Mar, Constipation, unspecified constipation type K59.00 [place] [address] 07200- 8301 Feb, Skin sore L98.9 ; Excoriation (skin-picking) disorder F42.4 and HIV antibody positive Z21 [address] [address] 51300- 2734 06 Feb, 2016 Routine health maintenance Z00.00 ; Family history of diabetes mellitus Z83.3 ; HIV antibody positive Z21 ; 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 ; Tobacco abuse Z72.0 ; Tobacco abuse counseling Z71.6 ; Restless legs syndrome G25.81 ; Generalized headaches R51 ; History of gastric bypass Z98.890 ; History of AL (myocardial infarction) I25.2 ; Pacemaker Z95.0 and Left hip pain M25.552 [facility] [id number] [place] [address] [id number] Jan, Encounter for dental examination and cleaning without abnormal findings Z01.20 IMMUNIZATIONS No Known Immunizations SOCIAL HISTORY Never Assessed REASON FOR VISIT Dysuria, F/u on UTI per Dr. Marin. SabasRN, Would like to quit smoking. PLAN OF CARE Activity Details Follow Up 4 Weeks, 3 Months, prn Reason:CHM/ UTI VITAL SIGNS Height 64 in 2017-04-11 Weight 185 lbs 2017-04-11 Temperature 98.7 degrees Fahrenheit 2017-04-11 Heart Rate 90 bpm 2017-04-11 Respiratory Rate 20 2017-04-11 BMI 31.75 kg/m2 2017-04-11 Blood pressure systolic 110 mmHg 2017-04-11 Blood pressure diastolic 70 mmHg 2017-04-11 MEDICATIONS Medication Instructions Dosage Frequency Start Date End Date Duration Status Levaquin 500 mg Orally Once a day 1 tablet 24h Mar, 2 Apr, 2017 07 days Active Polyethylene Glycol - by oral route Once a day as directed 24h Mar, 4 Apr, 2017 30 days Active Lunesta 2 MG Orally at bedtime as needed 1 tablet immediately before bedtime Feb, 30 days Active BusPIRone HCl 10 mg Orally 3 times a day as needed 1 tablet Feb, Active Clobetasol Prop & Cleanser 0.05 % Externally apply thin layer to scalp, sit 15 minutes, lather and then rinse daily as directed Mar, 30 days Active Vitamin D 2000 UNIT Orally Once a day 1 tablet 24h 13 Feb, 2017 90 days Not-Taking Eszopiclone 2 MG Orally Once a day 1 tablet immediately before bedtime 24h Feb, 28 days Not-Taking Triamcinolone Acetonide 0.1 % Externally Twice a day APPLY TO AFFECTED AREA(S ) TWO TIMES A DAY 12h 30 Active Evotaz 300-150 MG Orally Once a day 1 tablet with food 24h Active Descovy 200-25 MG Orally once a day one tablety 24h Active Bisacodyl 5 mg Orally one time as directed Feb, 1 dose Not- Taking Propranolol HCl 10 mg Orally Twice a day 1 tablet 12h Mar, 30 day(s) Active Invega 6 MG Orally every morning 1 tablet Jan, 30 days Not- Taking MiraLax - Orally one time as directed Feb, 1 dose Not-Taking Eucrisa 2 % Externally Twice a day 1 application to affected area 12h Mar, 30 days Active RESULTS No Results PROCEDURES Procedure Date Ordered Result Body Site URINALYSIS, AUTO, W/O SCOPE Apr 11, 2017 [facility] VISIT ESTABLISHED PATIENT Apr 11, 2017 INSTRUCTIONS MEDICATIONS ADMINISTERED No Known Medications [...] Surgical History hernia repair Hospitalization History in [place] Dec 2015 Hospitalization History inpatient [place]-unsure date
--- OUTSIDE RECORDS SUMMARY | 2017-09-29 02:58 | XMS REPORT | Continuity of Care Document ---
Author Author [facility] Organization [facility] Address Unknown Phone Unavailable Allergies Active Description Code Type Severity Reaction Onset Reported/Identified Relationship to Patient Clinical Status Yes NO KNOWN DRUG ALLERGIES NO KNOWN DRUG ALLERG UNKNOWN Yes NO KNOWN DRUG ALLERGIES UNKNOWN NO KNOWN DRUG ALLERG Yes No Allergy Information Drug Allergy N/A [...] Allergy Unknown . 09/2014 Yes No Known Medication Allergies NKMA N/A N/A 02/22/2015 Yes No Known Allergies No Known Allergies Drug Allergy Unknown N/A 2015 Yes Wellbutrin NKMA Mild Agitation and nightmares 12/24/2015 Yes No Allergy Information Available [id number] Drug Allergy Unknown N/A 2015 Yes No Known Drug Allergies [id number] Drug Allergy Unknown N/A 03/10/2016 Medications Medication Packaging Start Date Stop Date Route Dosage Sig omeprazole(omeprazole) 2014 Oral 40 mg 40 mg , Oral, Daily, 0 Refill(s) emtricitabine-tenofovir(Truvada) tabs 02/22/2015 12/26/2015 Oral tabs, Oral, Daily, 0 Refill(s) atazanavir-cobicistat(Evotaz) tabs 02/22/2015 12/26/2015 Oral tabs, Oral, Daily, 0 Refill(s) temazepam(temazepam) 02/22/2015 12/26/2015 Oral Oral, Bedtime (once a day), 0 Refill(s) gabapentin(Neurontin) 02/22/2015 12/26/2015 Oral Oral , 0 Refill(s) LORazepam(Ativan) 0.25 mL 201402/22/2015 IntraMuscular 0.5 mg 0.5 mg=0.25 mL, IntraMuscular, Once ketorolac(Toradol) 2 mL 06/11/2015 06/11/2015 IntraMuscular 60 mg 60 mg=2 mL, IntraMuscular, Once acetaminophen(acetaminophen) 2 tabs 06/11/2015 06/11/2015 Oral 1,000 mg 1,000 mg=2 tabs, Oral, Once cephalexin(cephalexin 500 mg oral capsule) 1 caps 06/11/2015 06/18/2015 Oral 500 mg 500 mg=1 caps, Oral, q12hr, for 7 days, 14 caps, 0 Refill(s) ondansetron(Zofran) 2 mL 201512/24/2015 IV Push 4 mg 4 mg=2 mL, IV Push, q30min, PRN: Nausea or Vomiting aspirin(aspirin) 4 tabs 12/24/2015 12/24/2015 Oral 324 mg 324 mg=4 tabs, Oral, Once, PRN: Other (See Comment) heparin(Heparin Bolus) 0.72 mL 11/201512/24/2015 IV Push 3,600 units 3,600 units=0.72 mL, IV Push, Once Sodium Chloride 0.9%(sodium chloride 0.9% 1,000 mL) 1,000 mL 12/24/2015 12/24/2015 IV 75 mL/hr, IV oxyCODONE(Roxicodone) 1 tabs 201502/22/2016 Oral 5 mg 5 mg=1 tabs, Oral, q4hr, PRN: Pain Severe (7-10) acetaminophen(acetaminophen) 2 tabs 12/24/2015 Oral 650 mg 650 mg=2 tabs, Oral, q4hr, PRN: Pain Mild (1-3) aspirin(aspirin) 1 tabs 12/24/2015 Oral 81 mg 81 mg=1 tabs, Oral, Daily acetaminophen(acetaminophen) 2 tabs 12/24/2015 12/24/2015 Oral 650 mg 650 mg=2 tabs, Oral, q4hr, PRN: Pain aspirin(aspirin) 1 tabs 12/24/2015 12/24/2015 Oral 81 mg 81 mg=1 tabs, Oral, Daily clopidogrel(Plavix) 1 tabs 201512/29/2015 Oral 75 mg 75 mg=1 tabs, Oral, Daily emtricitabine-tenofovir(Truvada 200 mg-300 mg oral tablet) 1 tabs 12/24/2015 Oral 1 tabs, Oral, Daily, 0 Refill(s) citalopram(citalopram 20 mg oral tablet) 1 tabs 12/24/2015 Oral 20 mg 20 mg=1 tabs, Oral, Daily, 0 Refill(s) emtricitabine-tenofovir(Truvada) 1 tabs 12/24/2015 Oral 1 tabs, Oral, Daily gabapentin(Neurontin) 1 caps 201512/26/2015 Oral 100 mg 100 mg=1 caps, Oral, TID atazanavir-cobicistat(Evotaz 300 mg-150 mg oral tablet) 1 tabs 12/24/2015 Oral 1 tabs, Oral, Daily potassium chloride(potassium chloride 20 mEq oral tablet, extended release) 2 tabs 12/25/20152015 Oral 40 mEq 40 mEq=2 tabs, Oral, Once magnesium sulfate(magnesium sulfate) 50 mL 12/25/2015 12/25/2015 IV Piggyback 2 g 2 g=50 mL, 25 mL/hr, IV Piggyback, Once potassium chloride(potassium chloride 20 mEq oral tablet, extended release) 2 tabs 12/25/20152015 Oral 40 mEq 40 mEq=2 tabs, Oral, Once magnesium sulfate(magnesium sulfate) 50 mL 12/25/2015 12/25/2015 IV Piggyback 2 g 2 g=50 mL, 25 mL/hr, IV Piggyback, Once pantoprazole(Protonix) 1 tabs 12/24 Oral 20 mg 20 mg =1 tabs, Oral, Daily potassium chloride(potassium chloride 20 mEq oral tablet, extended release) 2 tabs 12/26/20152015 Oral 40 mEq 40 mEq=2 tabs, Oral, q4hr enoxaparin(Lovenox) 0.4 mL 201512/29/2015 SubCutaneous 40 mg 40 mg=0.4 mL, SubCutaneous, Daily atazanavir-cobicistat(Evotaz 300 mg-150 mg oral tablet) 1 tabs 12/26/2015 Oral 1 tabs, Oral, Daily, 0 Refill(s) baclofen(baclofen) 12/26/2015 Oral 10 mg 10 mg, Oral, TID, with food or milk, 0 Refill(s) hydrOXYzine(hydrOXYzine) 201512/29/2015 Oral 50 mg 50 mg, Oral, Bedtime (once a day), 0 Refill(s) doxepin(doxepin 50 mg oral capsule) 1 caps 12/26/2015 Oral 50 mg 50 mg=1 caps, Oral, Bedtime (once a day), 0 Refill(s) nicotine(nicotine 21 mg/24 hr transdermal film, extended release) 1 patches 12/26/2015 TransDermal 1 patches, TransDermal, Daily, 0 Refill(s) albuterol(ProAir HFA 90 mcg/inh inhalation aerosol) 2 puffs 12/26/2015 Inhalation 180 mcg 180 mcg=2 puffs, Inhalation, q4hr, PRN: Bronchospasms fluticasone nasal(Flonase) 1 sprays 12/26/2015 Nasal 50 mcg 50 mcg=1 sprays, Nasal, BID guaiFENesin(Mucinex 600 mg oral tablet, extended release) 1 tabs 12/26/2015 Oral 600 mg 600 mg=1 tabs, Oral, BID, PRN: Cough/ Congestion magnesium sulfate(magnesium sulfate) 100 mL 12/27/2015 12/27/2015 IV Piggyback 4 g 4 g=100 mL, 16.67 mL/hr, IV Piggyback, Once potassium chloride(potassium chloride 10 mEq oral tablet, extended release) 1 tabs 12/27/20152015 Oral 10 mEq 10 mEq=1 tabs, Oral, Once aspirin(aspirin 81 mg oral tablet, chewable) 1 tabs 12/29/2015 Oral 81 mg 81 mg=1 tabs, Oral, Daily, 30 tabs, 0 Refill(s) clopidogrel(Plavix 75 mg oral tablet) 1 tabs 12/29/2015 12/29/2015 Oral 75 mg 75 mg=1 tabs, Oral, Daily, 30 tabs, 0 Refill(s) Al hydroxide/Mg hydroxide/simethicone(Maalox Advanced Maximum Strength oral suspension) 15 mL 12/29/2015 Oral 15 mL, Oral, q6hr, PRN: Other (See Comment) diphenhydrAMINE(Benadryl) 1 mL IntraMuscular 50 mg 50 mg=1 mL, IntraMuscular, q6hr, PRN: Extrapyramidal Symptoms LORazepam(Ativan) 2 tabs 2015 Oral 2 mg 2 mg=2 tabs, Oral, Once, PRN: Agitation haloperidol(Haldol) 1 mL 2015 Oral 5 mg 5 mg=1 mL, Oral, q6hr, PRN: Agitation benztropine(Cogentin) 1 tabs 2015 Oral 2 mg 2 mg=1 tabs, Oral, q6hr, PRN: Extrapyramidal Symptoms KETOROLAC VIAL INJ 30 MG/CC (TORADOL VIAL) MG 07/22/2016 07/22/2016 ONCE&212 HYDROXYZINE TAB 25 MG (ATARAX) MG 07/22/2016 07/22/2016 PRN ONCE KETOROLAC VIAL INJ 30 MG/CC (TORADOL VIAL) MG 11/11/2016 11/11/2016 ONCE&211 ORPHENADRINE INJ 60 MG/2CC (NORFLEX) MG 11/11/2016 11/11/2016 ONCE&211 DIPHENHYDRAMINE CAP 25 MG (BENADRYL) MG 11/11/2016 11/11/2016 ONCE&211 Problems Date Dx Coded Attending Type Code Diagnosis Diagnosed By 12/22/2011 Terence Couch MD Final 305.1 TOBACCO USE DISORDER 12/22/2011 Terence Couch MD Final 533.90 PEPTIC ULCER NOS S COMP 12/22/2011 Terence Couch MD Final 560.1 PARALYTIC ILEUS 12/22/2011 Terence Couch MD Admitting 789.09 ABDOMINAL PAIN-SITE NEC 12/22/2011 Terence Couch MD Final V08 ASYMPTOMATIC HIV STATUS 12/22/2011 Couch MD, Terence Girma Final V45.86 BARIATRIC SURG STATUS 12/23/2011 Luz [...] MD Final 401.9 HYPERTENSION NOS 02/17/2012 Cole Chau MD Final 454.8 LEG VV W COMP [...] Mcnulty MD I25.10 ATHSCL HEART DISEASE OF [place] CORONARY ARTERY W/O 11/22/2015 Gilles Mcnulty MD J44.1 CHRONIC OBSTRUCTIVE PULMONARY DISEASE W (ACUTE) EX 11/22/2015 Gilles Mcnulty MD R07.9 CHEST PAIN, UNSPECIFIED 12/12/2015 Sweet,, Awa Final J84.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 12/12/2015 Sweet,, Awa Reason R91.8 Other nonspecific abnormal finding of lung field 12/12/2015 Sweet,, Awa Final Z95.0 Presence of cardiac pacemaker 02/16/2016 HIRAM PRESTON FACC, ALI FACP CCDS Ot F19.21 OTHER PSYCHOACTIVE SUBSTANCE DEPENDENCE, 02/16/2016 HIRAM PRESTON FACC, ALI FACP CCDS Ot I25.2 OLD MYOCARDIAL INFARCTION 02/16/2016 HIRAM PRESTON FACC, ALI FACP CCDS Ot I70.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 02/16/2016 HIRAM PRESTON FACC, ALI FACP CCDS Ot R94.31 ABNORMAL ELECTROCARDIOGRAM [ECG] [EKG] 02/16/2016 HIRAM DAVISC, ALI FACP CCDS Ot Z21 ASYMPTOMATIC HUMAN IMMUNODEFICIENCY VIRU 02/16/2016 HIRAM PRESTON FACC, ALI FACP CCDS Ot Z72.0 TOBACCO USE 02/16/2016 HIRAM PRESTON FACC, ALI FACP CCDS Ot F19.21 OTHER PSYCHOACTIVE SUBSTANCE DEPENDENCE, 02/16/2016 HIRAM DAVISC, ALI FACP CCDS Ot I25.2 OLD MYOCARDIAL INFARCTION 02/16/2016 HIRAM PRESTON FACC, ALI FACP CCDS Ot I70.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 02/16/2016 HIRAM DAVISC, ALI FACP CCDS Ot R94.31 ABNORMAL ELECTROCARDIOGRAM [ECG] [EKG] 02/16/2016 HIRAM PRESTON FACC, ALI FACP CCDS Ot Z21 ASYMPTOMATIC HUMAN IMMUNODEFICIENCY VIRU 02/16/2016 HIRAM PRESTON FACC, ALI FACP CCDS Ot Z72.0 TOBACCO USE 03/10/2016 ANNIE WINN MD Ot F17.210 NICOTINE DEPENDENCE, CIGARETTES, UNCOMPL 03/10/2016 ANNIE WINN MD Ot G93.9 DISORDER OF BRAIN, UNSPECIFIED 03/10/2016 ANNIE WINN MD Ot R06.02 SHORTNESS OF BREATH 03/10/2016 ANNIE WINN MD Ot R41.0 DISORIENTATION, UNSPECIFIED 03/10/2016 ANNIE WINN MD Ot Z21 ASYMPTOMATIC HUMAN IMMUNODEFICIENCY VIRU 03/10/2016 ALEKSANDAR REINOSO MD Ot 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 03/10/2016 ALEKSANDAR REINOSO MD Ot F17.210 NICOTINE DEPENDENCE, CIGARETTES, UNCOMPL 03/10/2016 ALEKSANDAR REINOSO MD Ot K59.00 CONSTIPATION, UNSPECIFIED 03/10/2016 ALEKSANDAR REINOSO MD Ot M54.5 LOW BACK PAIN 03/10/2016 ALEKSANDAR REINOSO MD Ot N39.0 URINARY TRACT INFECTION, SITE NOT SPECIF 03/10/2016 ALEKSANDAR REINOSO MD Ot R51 HEADACHE 03/10/2016 ALEKSANDAR REINOSO MD Ot Z79.899 OTHER MEMBER OF THE LEGISLATIVE COUNCIL (CURRENT) DRUG THERAPY 03/10/2016 HIRAM PRESTON FACC, ALI FACP CCDS Ot F19.21 OTHER PSYCHOACTIVE SUBSTANCE DEPENDENCE, 03/10/2016 HIRAM PRESTON FACC, ALI FACP CCDS Ot I25.2 OLD MYOCARDIAL INFARCTION 03/10/2016 HIRAM PRESTON FACC, ALI FACP CCDS Ot I70.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 03/10/2016 HIRAM PRESTON FACC, ALI FACP CCDS Ot R94.31 ABNORMAL ELECTROCARDIOGRAM [ECG] [EKG] 03/10/2016 HIRAM PRESTON FACC, SAMUEL FACP CCDS Ot Z21 ASYMPTOMATIC HUMAN IMMUNODEFICIENCY VIRU 03/10/2016 HIRAM PRESTON FACC, ALI FACP CCDS Ot Z72.0 TOBACCO USE 03/10/2016 HIRAM PRESTON FACC, ALI FACP CCDS Ot F19.21 OTHER PSYCHOACTIVE SUBSTANCE DEPENDENCE, 03/10/2016 HIRAM PRESTON FACC, ALI FACP CCDS Ot I25.2 OLD MYOCARDIAL INFARCTION 03/10/2016 HIRAM PRESTON FACC, ALI FACP CCDS Ot I70.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 03/10/2016 HIRAM PRESTON FACC, ALI FACP CCDS Ot R94.31 ABNORMAL ELECTROCARDIOGRAM [ECG] [EKG] 03/10/2016 HIRAM MD FACC, ALI FACP CCDS Ot Z21 ASYMPTOMATIC HUMAN IMMUNODEFICIENCY VIRU 03/10/2016 HIRAM DAVISC, ALI FACP CCDS Ot Z72.0 TOBACCO USE 03/13/2016 HIRAM PRESTON FACC, ALI FACP CCDS Ot F19.21 OTHER PSYCHOACTIVE SUBSTANCE DEPENDENCE, 03/13/2016 HIRAM PRESTON FACC, ALI FACP CCDS Ot I25.2 OLD MYOCARDIAL INFARCTION 03/13/2016 HIRAM DAVISC, ALI FACP CCDS Ot I70.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 03/13/2016 HIRAM DAVISC, ALI FACP CCDS Ot R94.31 ABNORMAL ELECTROCARDIOGRAM [ECG] [EKG] 03/13/2016 HIRAM PRESTON FACC, ALI FACP CCDS Ot Z21 ASYMPTOMATIC HUMAN IMMUNODEFICIENCY VIRU 03/13/2016 HIRAM PRESTON FACC, ALI FACP CCDS Ot Z72.0 TOBACCO USE 03/13/2016 HIRAM PRESTON FACC, ALI FACP CCDS Ot F19.21 OTHER PSYCHOACTIVE SUBSTANCE DEPENDENCE, 03/13/2016 HIRAM PRESTON FACC, ALI FACP CCDS Ot I25.2 OLD MYOCARDIAL INFARCTION 03/13/2016 HIRAM PRESTON FACC, ALI FACP CCDS Ot I70.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 03/13/2016 HIRAM PRESTON FACC, ALI FACP CCDS Ot R94.31 ABNORMAL ELECTROCARDIOGRAM [ECG] [EKG] 03/13/2016 IHRAM PRESTON FACC, ALI FACP CCDS Ot Z21 ASYMPTOMATIC HUMAN IMMUNODEFICIENCY VIRU 03/13/2016 HIRAM PRESTON FACC, ALI FACP CCDS Ot Z72.0 TOBACCO USE 03/14/2016 HIRAM PRESTON FACC, ALI FACP CCDS Ot F19.21 OTHER PSYCHOACTIVE SUBSTANCE DEPENDENCE, 03/14/2016 HIRAM PRESTON FACC, ALI FACP CCDS Ot I25.2 OLD MYOCARDIAL INFARCTION 03/14/2016 HIRAM PRESTON FACC, ALI FACP CCDS Ot I70.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 03/14/2016 HIRAM PRESTON FACC, ALI FACP CCDS Ot R94.31 ABNORMAL ELECTROCARDIOGRAM [ECG] [EKG] 03/14/2016 HIRAM PRESTON FACC, ALI FACP CCDS Ot Z21 ASYMPTOMATIC HUMAN IMMUNODEFICIENCY VIRU 03/14/2016 HIRAM PRESTON FACC, ALI FACP CCDS Ot Z72.0 TOBACCO USE 03/14/2016 HIRAM PRESTON FACC, ALI FACP CCDS Ot F19.21 OTHER PSYCHOACTIVE SUBSTANCE DEPENDENCE, 03/14/2016 HIRAM PRESTON FACC, ALI FACP CCDS Ot I25.2 OLD MYOCARDIAL INFARCTION 03/14/2016 HIRAM PRESTON FACC, ALI FACP CCDS Ot I70.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 03/14/2016 HIRAM PRESTON FACC, ALI FACP CCDS Ot R94.31 ABNORMAL ELECTROCARDIOGRAM [ECG] [EKG] 03/14/2016 HIRAM PRESTON FACC, ALI FACP CCDS Ot Z21 ASYMPTOMATIC HUMAN IMMUNODEFICIENCY VIRU 03/14/2016 HIRAM PRESTON FACC, ALI FACP CCDS Ot Z72.0 TOBACCO USE 03/17/2016 JESSICA DO, DIXIE K Ot E16.2 HYPOGLYCEMIA, UNSPECIFIED 03/17/2016 JESSICA DO, DIXIE K Ot K59.00 CONSTIPATION, UNSPECIFIED 03/17/2016 JESSICA DO, DIXIE K Ot R42 DIZZINESS AND GIDDINESS 03/17/2016 JESSICA DO, DIXIE K Ot Z95.0 PRESENCE OF CARDIAC PACEMAKER 03/17/2016 JESSICA DO, DIXIE K Ot Z98.84 BARIATRIC SURGERY STATUS 03/19/2016 HIRAM PRESTON FACC, SAMUEL FACP CCDS Ot F19.21 OTHER PSYCHOACTIVE SUBSTANCE DEPENDENCE, 03/19/2016 HIRAM PRESTON FACC, SAMUEL FACP CCDS Ot I25.2 OLD MYOCARDIAL INFARCTION 03/19/2016 HRIAM PRESTON FACC, SAMUEL FACP CCDS Ot I70.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 03/19/2016 HIRAM PRESTON FACC, ALI FACP CCDS Ot R94.31 ABNORMAL ELECTROCARDIOGRAM [ECG] [EKG] 03/19/2016 HIRAM PRESTON FACC, ALI FACP CCDS Ot Z21 ASYMPTOMATIC HUMAN IMMUNODEFICIENCY VIRU 03/19/2016 HIRAM PRESTON FACC, ALI FACP CCDS Ot Z72.0 TOBACCO USE 03/19/2016 HIRAM PRESTON FACC, ALI FACP CCDS Ot F19.21 OTHER PSYCHOACTIVE SUBSTANCE DEPENDENCE, 03/19/2016 HIRAM PRESTON FACC, ALI FACP CCDS Ot I25.2 OLD MYOCARDIAL INFARCTION 03/19/2016 HIRAM PRESTON FACC, ALI FACP CCDS Ot I70.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 03/19/2016 HIRAM PRESTON FACC, ALI FACP CCDS Ot R94.31 ABNORMAL ELECTROCARDIOGRAM [ECG] [EKG] 03/19/2016 HIRAM PRESTON FACC, ALI FACP CCDS Ot Z21 ASYMPTOMATIC HUMAN IMMUNODEFICIENCY VIRU 03/19/2016 HIRAM PRESTON FACC, ALI FACP CCDS Ot Z72.0 TOBACCO USE 03/20/2016 HIRAM PRESTON FACC, ALI FACP CCDS Ot F19.21 OTHER PSYCHOACTIVE SUBSTANCE DEPENDENCE, 03/20/2016 HIRAM PRESTON FACC, ALI FACP CCDS Ot I25.2 OLD MYOCARDIAL INFARCTION 03/20/2016 HIRAM PRESTON FACC, ALI FACP CCDS Ot I70.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 03/20/2016 HIRAM PRESTON FACC, ALI FACP CCDS Ot R94.31 ABNORMAL ELECTROCARDIOGRAM [ECG] [EKG] 03/20/2016 HIRAM PRESTON FACC, ALI FACP CCDS Ot Z21 ASYMPTOMATIC HUMAN IMMUNODEFICIENCY VIRU 03/20/2016 HIRAM PRESTON FACC, ALI FACP CCDS Ot Z72.0 TOBACCO USE 03/22/2016 HIRAM PRESTON FACC, ALI FACP CCDS Ot F19.21 OTHER PSYCHOACTIVE SUBSTANCE DEPENDENCE, 03/22/2016 HIRAM PRESTON FACC, ALI FACP CCDS Ot I25.2 OLD MYOCARDIAL INFARCTION 03/22/2016 HIRAM PRESTON FACC, ALI FACP CCDS Ot I70.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 03/22/2016 HIRAM PRESTON FACC, ALI FACP CCDS Ot R94.31 ABNORMAL ELECTROCARDIOGRAM [ECG] [EKG] 03/22/2016 HIRAM PRESTON FACC, ALI FACP CCDS Ot Z21 ASYMPTOMATIC HUMAN IMMUNODEFICIENCY VIRU 03/22/2016 HIRAM PRESTON FACC, ALI FACP CCDS Ot Z72.0 TOBACCO USE 04/19/2016 HIRAM PRESTON FACC, ALI FACP CCDS Ot F19.21 OTHER PSYCHOACTIVE SUBSTANCE DEPENDENCE, 04/19/2016 HIRAM PRESTON FACC, ALI FACP CCDS Ot I25.2 OLD MYOCARDIAL INFARCTION 04/19/2016 HIRAM PRESTON FACC, ALI FACP CCDS Ot I70.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 04/19/2016 HIRAM DAVISC, ALI FACP CCDS Ot R94.31 ABNORMAL ELECTROCARDIOGRAM [ECG] [EKG] 04/19/2016 HIRAM PRESTON FACC, ALI FACP CCDS Ot Z21 ASYMPTOMATIC HUMAN IMMUNODEFICIENCY VIRU 04/19/2016 HIRAM PRESTON FACC, ALI FACP CCDS Ot Z72.0 TOBACCO USE 04/26/2016 HIRAM DAVISC, ALI FACP CCDS Ot F19.21 OTHER PSYCHOACTIVE SUBSTANCE DEPENDENCE, 04/26/2016 HIRAM PRESTON FACC, ALI FACP CCDS Ot I25.2 OLD MYOCARDIAL INFARCTION 04/26/2016 HIRAM DAVISC, ALI FACP CCDS Ot I70.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 04/26/2016 HIRAM PRESTON FACC, ALI FACP CCDS Ot R94.31 ABNORMAL ELECTROCARDIOGRAM [ECG] [EKG] 04/26/2016 HIRAM PRESTON FACC, ALI FACP CCDS Ot Z21 ASYMPTOMATIC HUMAN IMMUNODEFICIENCY VIRU 04/26/2016 HIRAM PRESTON FACC, ALI FACP CCDS Ot Z72.0 TOBACCO USE 05/23/2016 STEFFANIE LUNSFORD ANISH R SUPERVISOR TRAVEL TRAILER Ot R90.89 OTH ABNORMAL FINDINGS ON DIAGNOSTIC IMAG 07/22/2016 VONDAGLROSEMARY ALDANAARA A 133.0 SCABIES 07/22/2016 KELBY PARKER W 789.07 ABDOMINAL PAIN, GENERALIZED 07/22/2016 BATTAKELBY JOHNSON A B86 SCABIES 07/22/2016 KELBY PARKER W R10.84 GENERALIZED ABDOMINAL PAIN 09/19/2016 HIRAM PRESTON FACC, ALI FACP CCDS Ot F19.21 OTHER PSYCHOACTIVE SUBSTANCE DEPENDENCE, 09/19/2016 HIRAM PRESTON FACC, ALI FACP CCDS Ot I25.2 OLD MYOCARDIAL INFARCTION 09/19/2016 HIRAM PRESTON FACC, ALI FACP CCDS Ot I70.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 09/19/2016 HIRAM PRESTON FACC, ALI FACP CCDS Ot R94.31 ABNORMAL ELECTROCARDIOGRAM [ECG] [EKG] 09/19/2016 HIRAM PRESTON FACC, ALI FACP CCDS Ot Z21 ASYMPTOMATIC HUMAN IMMUNODEFICIENCY VIRU 09/19/2016 HIRAM PRESTON FACC, ALI FACP CCDS Ot Z72.0 TOBACCO USE 09/19/2016 HIRAM DAVISC, ALI FACP CCDS Ot F19.21 OTHER PSYCHOACTIVE SUBSTANCE DEPENDENCE, 09/19/2016 HIRAM PRESTON FACC, ALI FACP CCDS Ot I25.2 OLD MYOCARDIAL INFARCTION 09/19/2016 HIRAM PRESTON FACC, ALI FACP CCDS Ot I70.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 09/19/2016 HIRAM DAVISC, ALI FACP CCDS Ot R94.31 ABNORMAL ELECTROCARDIOGRAM [ECG] [EKG] 09/19/2016 HIRAM PRESTON FACC, ALI FACP CCDS Ot Z21 ASYMPTOMATIC HUMAN IMMUNODEFICIENCY VIRU 09/19/2016 HIRAM PRESTON FACC, ALI FACP CCDS Ot Z72.0 TOBACCO USE 09/19/2016 HIRAM PRESTON FACC, ALI FACP CCDS Ot F19.21 OTHER PSYCHOACTIVE SUBSTANCE DEPENDENCE, 09/19/2016 HIRAM PRESTON FACC, ALI FACP CCDS Ot I25.2 OLD MYOCARDIAL INFARCTION 09/19/2016 HIRAM PRESTON FACC, ALI FACP CCDS Ot I70.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 09/19/2016 HIRAM PRESTON FACC, ALI FACP CCDS Ot R94.31 ABNORMAL ELECTROCARDIOGRAM [ECG] [EKG] 09/19/2016 HIRAM PRESTON FACC, ALI FACP CCDS Ot Z21 ASYMPTOMATIC HUMAN IMMUNODEFICIENCY VIRU 09/19/2016 HIRAM PRESTON FACC, ALI FACP CCDS Ot Z72.0 TOBACCO USE 09/19/2016 ANISH MO R SUPERVISOR TRAVEL TRAILER Ot R90.89 OTH ABNORMAL FINDINGS ON DIAGNOSTIC IMAG 09/20/2016 HIRAM PRESTON FACC, ALI FACP CCDS Ot F19.21 OTHER PSYCHOACTIVE SUBSTANCE DEPENDENCE, 09/20/2016 HIRAM PRESTON FACC, ALI FACP CCDS Ot I25.2 OLD MYOCARDIAL INFARCTION 09/20/2016 HIRAM PRESTON FACC, ALI FACP CCDS Ot I70.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 09/20/2016 HIRAM PRESTON FACC, ALI FACP CCDS Ot R94.31 ABNORMAL ELECTROCARDIOGRAM [ECG] [EKG] 09/20/2016 HIRAM PRESTON FACC, ALI FACP CCDS Ot Z21 ASYMPTOMATIC HUMAN IMMUNODEFICIENCY VIRU 09/20/2016 HIRAM MD FACC, ALI FACP CCDS Ot Z72.0 TOBACCO USE 09/20/2016 HIRAM PRESTON FACC, ALI FACP CCDS Ot F19.21 OTHER PSYCHOACTIVE SUBSTANCE DEPENDENCE, 09/20/2016 HIRAM PRESTON FACC, ALI FACP CCDS Ot I25.2 OLD MYOCARDIAL INFARCTION 09/20/2016 HIRAM PRESTON FACC, ALI FACP CCDS Ot I70.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 09/20/2016 HIRAM PRESTON FACC, ALI FACP CCDS Ot R94.31 ABNORMAL ELECTROCARDIOGRAM [ECG] [EKG] 09/20/2016 HIRAM DAVISC, ALI FACP CCDS Ot Z21 ASYMPTOMATIC HUMAN IMMUNODEFICIENCY VIRU 09/20/2016 HIRAM PRESTON FACC, ALI FACP CCDS Ot Z72.0 TOBACCO USE 09/20/2016 HIRAM PRESTON FACC, ALI FACP CCDS Ot F19.21 OTHER PSYCHOACTIVE SUBSTANCE DEPENDENCE, 09/20/2016 HIRAM PRESTON FACC, ALI FACP CCDS Ot I25.2 OLD MYOCARDIAL INFARCTION 09/20/2016 [facility] ALI FACP CCDS Ot I70.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 09/20/2016 HIRAM PRESTON [facility], ALI FACP CCDS Ot R94.31 ABNORMAL ELECTROCARDIOGRAM [ECG] [EKG] 09/20/2016 HIRAM PRESTON FACC, ALI FACP CCDS Ot Z21 ASYMPTOMATIC HUMAN IMMUNODEFICIENCY VIRU 09/20/2016 HIRAM PRESTON FACC, ALI FACP CCDS Ot Z72.0 TOBACCO USE 09/20/2016 ANISH MO SUPERVISOR TRAVEL TRAILER Ot R90.89 OTH ABNORMAL FINDINGS ON DIAGNOSTIC IMAG 10/07/2016 DARYN STOREY ENAMEL DIPPER Ot R93.0 ABNORMAL FINDINGS ON DX IMAGING OF SKULL 10/09/2016 DARYN STOREY ENAMEL DIPPER Ot R93.0 ABNORMAL FINDINGS ON DX IMAGING OF SKULL 10/09/2016 DARYN STOREY ENAMEL DIPPER Ot R93.0 ABNORMAL FINDINGS ON DX IMAGING OF SKULL 10/09/2016 DARYN STOREYP Ot R93.0 ABNORMAL FINDINGS ON DX IMAGING OF SKULL 10/09/2016 DARYN STOREY ENAMEL DIPPER Ot R93.0 ABNORMAL FINDINGS ON DX IMAGING OF SKULL 10/16/2016 CORDELIA, DARYN D ENAMEL DIPPER Ot R93.0 ABNORMAL FINDINGS ON DX IMAGING OF SKULL 10/18/2016 SHILOH JIM APRN Ot F31.9 BIPOLAR DISORDER, UNSPECIFIED 10/18/2016 SHILOH JIM APRN Ot F41.9 ANXIETY DISORDER, UNSPECIFIED 10/18/2016 SHILOH JIM APRN Ot F43.10 POST-TRAUMATIC STRESS DISORDER, UNSPECIF 10/18/2016 SHILOH JIM APRN Ot F90.9 ATTENTION-DEFICIT HYPERACTIVITY DISORDER 10/18/2016 SHILOH JIM APRN Ot K58.0 IRRITABLE BOWEL SYNDROME WITH DIARRHEA 10/18/2016 SHILOH JIM APRN Ot R19.7 DIARRHEA, UNSPECIFIED 10/18/2016 SHILOH JIM APRN Ot Z21 ASYMPTOMATIC HUMAN IMMUNODEFICIENCY VIRU 10/18/2016 SHILOH JIM APRN Ot Z86.19 PERSONAL HISTORY OF OTHER INFECTIOUS AND 10/18/2016 SHILOH JIM APRN Ot Z98.51 TUBAL LIGATION STATUS 10/21/2016 SHILOH JIM APRN Ot F31.9 BIPOLAR DISORDER, UNSPECIFIED 10/21/2016 SHILOH JIM APRN Ot F41.9 ANXIETY DISORDER, UNSPECIFIED 10/21/2016 SHILOH JIM APRN Ot F43.10 POST-TRAUMATIC STRESS DISORDER, UNSPECIF 10/21/2016 SHILOH JIM APRN Ot F90.9 ATTENTION-DEFICIT HYPERACTIVITY DISORDER 10/21/2016 SHILOH JIM APRN Ot K58.0 IRRITABLE BOWEL SYNDROME WITH DIARRHEA 10/21/2016 SHILOH JIM APRN Ot R19.7 DIARRHEA, UNSPECIFIED 10/21/2016 SHILOH JIM APRN Ot Z21 ASYMPTOMATIC HUMAN IMMUNODEFICIENCY VIRU 10/21/2016 SHILOH JIM APRN Ot Z86.19 PERSONAL HISTORY OF OTHER INFECTIOUS AND 10/21/2016 SHILOH JIM APRN Ot Z98.51 TUBAL LIGATION STATUS 10/25/2016 DARYN STOREY ENAMEL DIPPER Ot R93.0 ABNORMAL FINDINGS ON DX IMAGING OF SKULL 11/11/2016 KELBY PARKER 782.1 RASH AND OTHER NONSPECIFIC SKIN ERUPTION 11/11/2016 KELBY PARKER W 848.8 OTHER SPECIFIED SITES OF SPRAINS AND STRAINS 11/11/2016 BATTAGLER, KELBY A R21 RASH AND OTHER NONSPECIFIC SKIN ERUPTION 11/11/2016 ELENA KELBY W S39.012A STRAIN OF MUSCLE, FASCIA AND TENDON OF LOWER BACK, INIT 12/06/2016 HIRAM PRESTON FACC, SAMUEL FACP CCDS Ot F19.21 OTHER PSYCHOACTIVE SUBSTANCE DEPENDENCE, 12/06/2016 HIRAM PRESTON FACC, ALI FACP CCDS Ot I25.2 OLD MYOCARDIAL INFARCTION 12/06/2016 HIRAM PRESTON FACC, ALI FACP CCDS Ot I70.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 12/06/2016 HIRAM PRESTON FACC, SAMUEL FACP CCDS Ot R94.31 ABNORMAL ELECTROCARDIOGRAM [ECG] [EKG] 12/06/2016 HIRAM PRESTON FACC, SAUMEL FACP CCDS Ot Z21 ASYMPTOMATIC HUMAN IMMUNODEFICIENCY VIRU 12/06/2016 HIRAM PRESTON FACC, ALI FACP CCDS Ot Z72.0 TOBACCO USE 12/06/2016 HIRAM PRESTON FACC, ALI FACP CCDS Ot F19.21 OTHER PSYCHOACTIVE SUBSTANCE DEPENDENCE, 12/06/2016 HIRAM PRESTON FACC, ALI FACP CCDS Ot I25.2 OLD MYOCARDIAL INFARCTION 12/06/2016 HIRAM PRESTON FACC, ALI FACP CCDS Ot I70.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 12/06/2016 HIRAM PRESTON FACC, SAMUEL FACP CCDS Ot R94.31 ABNORMAL ELECTROCARDIOGRAM [ECG] [EKG] 12/06/2016 HIRAM PRESTON FACC, SAMUEL FACP CCDS Ot Z21 ASYMPTOMATIC HUMAN IMMUNODEFICIENCY VIRU 12/06/2016 HIRAM PRESTON FACC, ALI FACP CCDS Ot Z72.0 TOBACCO USE 12/06/2016 HIRAM PRESTON FACC, ALI FACP CCDS Ot F19.21 OTHER PSYCHOACTIVE SUBSTANCE DEPENDENCE, 12/06/2016 HIRAM PRESTON FACC, ALI FACP CCDS Ot I25.2 OLD MYOCARDIAL INFARCTION 12/06/2016 HIRAM PRESTON FACC, ALI FACP CCDS Ot I70.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 12/06/2016 HIRAM PRESTON FACC, ALI FACP CCDS Ot R94.31 ABNORMAL ELECTROCARDIOGRAM [ECG] [EKG] 12/06/2016 HIRAM PRESTON FACC, ALI FACP CCDS Ot Z21 ASYMPTOMATIC HUMAN IMMUNODEFICIENCY VIRU 12/06/2016 HIRAM PRESTON FAC, SAMUEL DAVISP CCDS Ot Z72.0 TOBACCO USE 12/06/2016 STEFFANIE LUNSFORDANISH SUPERVISOR TRAVEL TRAILER Ot R90.89 OTH ABNORMAL FINDINGS ON DIAGNOSTIC IMAG 12/06/2016 DARYN STOREY Ot R93.0 ABNORMAL FINDINGS ON DX IMAGING OF SKULL 12/18/2016 MARIAJOSE KINGSTON Ot F12.10 CANNABIS ABUSE, UNCOMPLICATED 12/18/2016 MARIAJOSE KINGSTON Ot F15.10 OTHER STIMULANT ABUSE, UNCOMPLICATED 12/18/2016 MARIAJOSE KINGSTON Ot F31.9 BIPOLAR DISORDER, UNSPECIFIED 12/18/2016 MARIAJOSE KINGSTON Ot F41.9 ANXIETY DISORDER, UNSPECIFIED 12/18/2016 MARIAJOSE KINGSTON Ot F43.10 POST-TRAUMATIC STRESS DISORDER, UNSPECIF 12/18/2016 MARIAJOSE KINGSTON Ot F90.9 ATTENTION-DEFICIT HYPERACTIVITY DISORDER 12/18/2016 MARIAJOSE KINGSTON Ot N39.0 URINARY TRACT INFECTION, SITE NOT SPECIF 12/18/2016 MARIAJOSE KINGSTON Ot R30.0 DYSURIA 12/18/2016 MARIAJOSE KINGSTON Ot S40.861A INSECT BITE (NONVENOMOUS) OF RIGHT UPPER 12/18/2016 MARIAJOSE KINGSTON Ot S40.862A INSECT BITE (NONVENOMOUS) OF LEFT UPPER 12/18/2016 MARIAJOSE KINGSTON Ot S80.861A INSECT BITE (NONVENOMOUS), RIGHT LOWER L 12/18/2016 MARIAJOSE KINGSTON Ot S80.862A INSECT BITE (NONVENOMOUS), LEFT LOWER LE 12/18/2016 MARIAJOSE KINGSTON Ot W57.XXXA BIT/STUNG BY NONVENOM INSECT OTH NONVE 12/18/2016 MARIAJOSE KINGSTON Ot Z87.448 PERSONAL HISTORY OF OTHER DISEASES OF UR 12/18/2016 MARIAJOSE KINGSTON Ot Z90.89 ACQUIRED ABSENCE OF OTHER ORGANS 12/18/2016 MARIAJOSE KINGSTON Ot Z95.0 PRESENCE OF CARDIAC PACEMAKER 12/18/2016 MARIAJOSE KINGSTON Ot Z98.84 BARIATRIC SURGERY STATUS 12/20/2016 MARIAJOSE KINGSTON Ot F12.10 CANNABIS ABUSE, UNCOMPLICATED 12/20/2016 MARIAJOSE KINGSTON Ot F15.10 OTHER STIMULANT ABUSE, UNCOMPLICATED 12/20/2016 MARIAJOSE KINGSTON Ot F31.9 BIPOLAR DISORDER, UNSPECIFIED 12/20/2016 MARIAJOSE KINGSTON Ot F41.9 ANXIETY DISORDER, UNSPECIFIED 12/20/2016 MARIAJOSE KINGSTON Ot F43.10 POST-TRAUMATIC STRESS DISORDER, UNSPECIF 12/20/2016 MARIAJOSE KINGSTON Ot F90.9 ATTENTION-DEFICIT HYPERACTIVITY DISORDER 12/20/2016 MARIAJOSE KINGSTON Ot N39.0 URINARY TRACT INFECTION, SITE NOT SPECIF 12/20/2016 MARIAJOSE KINGSTON Ot R30.0 DYSURIA 12/20/2016 MARIAJOSE KINGSTON Ot S40.861A INSECT BITE (NONVENOMOUS) OF RIGHT UPPER 12/20/2016 MARIAJOSE KINGSTON Ot S40.862A INSECT BITE (NONVENOMOUS) OF LEFT UPPER 12/20/2016 MARIAJOSE KINGSTON Ot S80.861A INSECT BITE (NONVENOMOUS), RIGHT LOWER L 12/20/2016 MARIAJOSE KINGSTON Ot S80.862A INSECT BITE (NONVENOMOUS), LEFT LOWER LE 12/20/2016 MARIAJOSE KINGSTON Ot W57.XXXA BIT/STUNG BY NONVENOM INSECT OTH NONVE 12/20/2016 MARIAJOSE KINGSTON Ot Z87.448 PERSONAL HISTORY OF OTHER DISEASES OF UR 12/20/2016 MARIAJOSE KINGSTON Ot Z90.89 ACQUIRED ABSENCE OF OTHER ORGANS 12/20/2016 MARIAJOSE KINGSOTN Ot Z95.0 PRESENCE OF CARDIAC PACEMAKER 12/20/2016 MARIAJOSE KINGSTON Ot Z98.84 BARIATRIC SURGERY STATUS 12/20/2016 MARIAJOSE KINGSTON Ot F12.10 CANNABIS ABUSE, UNCOMPLICATED 12/20/2016 MARIAJOSE KINGSTON Ot F15.10 OTHER STIMULANT ABUSE, UNCOMPLICATED 12/20/2016 MARIAJOSE KINGSTON Ot F31.9 BIPOLAR DISORDER, UNSPECIFIED 12/20/2016 MARIAJOSE KINGSTON Ot F41.9 ANXIETY DISORDER, UNSPECIFIED 12/20/2016 MARIAJOSE KINGSTON Ot F43.10 POST-TRAUMATIC STRESS DISORDER, UNSPECIF 12/20/2016 MARIAJOSE KINGSTON Ot F90.9 ATTENTION-DEFICIT HYPERACTIVITY DISORDER 12/20/2016 MARIAJOSE KINGSTON Ot N39.0 URINARY TRACT INFECTION, SITE NOT SPECIF 12/20/2016 MARIAJOSE KINGSTON Ot R30.0 DYSURIA 12/20/2016 MARIAJOSE KINGSTON Ot S40.861A INSECT BITE (NONVENOMOUS) OF RIGHT UPPER 12/20/2016 MARIAJOSE KINGSTON Ot S40.862A INSECT BITE (NONVENOMOUS) OF LEFT UPPER 12/20/2016 MARIAJOSE KINGSTON Ot S80.861A INSECT BITE (NONVENOMOUS), RIGHT LOWER L 12/20/2016 MARIAJOSE KINGSTON Ot S80.862A INSECT BITE (NONVENOMOUS), LEFT LOWER LE 12/20/2016 MARIAJOSE KINGSTON Ot W57.XXXA BIT/STUNG BY NONVENOM INSECT OTH NONVE 12/20/2016 MARIAJOSE KINGSTON Ot Z87.448 PERSONAL HISTORY OF OTHER DISEASES OF UR 12/20/2016 MARIAJOSE KINGSTON Ot Z90.89 ACQUIRED ABSENCE OF OTHER ORGANS 12/20/2016 MARIAJOSE KINGSTON Ot Z95.0 PRESENCE OF CARDIAC PACEMAKER 12/20/2016 MARIAJOSE KINGSTON Ot Z98.84 BARIATRIC SURGERY STATUS 12/27/2016 ANISH MO APRN Ot J44.9 CHRONIC OBSTRUCTIVE PULMONARY DISEASE, U 01/03/2017 ANISH MO APRN Ot J44.9 CHRONIC OBSTRUCTIVE PULMONARY DISEASE, U 03/06/2017 IDANIA CHAU DO Ot R19.4 CHANGE IN BOWEL HABIT 03/06/2017 IDANIA CHAU DO Ot Z01.818 ENCOUNTER FOR OTHER PREPROCEDURAL EXAMIN 03/11/2017 IDANIA CHAU DO Ot R19.4 CHANGE IN BOWEL HABIT 03/11/2017 IDANIA CHAU DO Ot Z01.818 ENCOUNTER FOR OTHER PREPROCEDURAL EXAMIN 03/14/2017 IDANIA CHAU DO Ot 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 03/14/2017 IDANIA CHAU DO, Ot I25.2 OLD MYOCARDIAL INFARCTION 03/14/2017 IDANIA CHAU DO Ot K29.50 UNSPECIFIED CHRONIC GASTRITIS WITHOUT BL 03/14/2017 IDANIA CHAU DO Ot K52.89 OTHER SPECIFIED NONINFECTIVE GASTROENTER 03/19/2017 JOVAN CHAU DOIC B Ot R19.4 CHANGE IN BOWEL HABIT 03/19/2017 IDANIA CHAU DO Ot Z01.818 ENCOUNTER FOR OTHER PREPROCEDURAL EXAMIN 03/20/2017 IDANIA CHAU DO Ot 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 03/20/2017 IDANIA CHAU DO Ot I25.2 OLD MYOCARDIAL INFARCTION 03/20/2017 IDANIA CHAU DO Ot K29.50 UNSPECIFIED CHRONIC GASTRITIS WITHOUT BL 03/20/2017 IDANIA CHAU DO Ot K52.89 OTHER SPECIFIED NONINFECTIVE GASTROENTER 03/20/2017 IDANIA CHAU DO Ot R19.4 CHANGE IN BOWEL HABIT 03/20/2017 IDANIA CHAU DO Ot Z01.818 ENCOUNTER FOR OTHER PREPROCEDURAL EXAMIN 03/24/2017 IDANIA CHAU DO Ot 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 03/24/2017 IDANIA CHAU DO Ot F17.210 NICOTINE DEPENDENCE, CIGARETTES, UNCOMPL 03/24/2017 IDANIA CHAU DO Ot F31.9 BIPOLAR DISORDER, UNSPECIFIED 03/24/2017 IDANIA CHAU DO Ot F43.10 POST-TRAUMATIC STRESS DISORDER, UNSPECIF 03/24/2017 IDANIA CHAU DO Ot F90.9 ATTENTION-DEFICIT HYPERACTIVITY DISORDER 03/24/2017 IDANIA CHAU DO Ot I70.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 03/24/2017 IDANIA CHAU DO Ot K21.9 GASTRO-ESOPHAGEAL REFLUX DISEASE WITHOUT 03/24/2017 IDANIA CHAU DO Ot K27.9 PEPTIC ULC, SITE UNSP, UNSP AC OR CHR 03/24/2017 IDANIA CHAU DO Ot K64.8 OTHER HEMORRHOIDS 03/24/2017 IDANIA CHAU DO Ot Z79.899 OTHER MEMBER OF THE LEGISLATIVE COUNCIL (CURRENT) DRUG THERAPY 03/24/2017 IDANIA CHAU DO Ot Z95.0 PRESENCE OF CARDIAC PACEMAKER 03/27/2017 JOVAN CHAU DOIC Andrei Ot 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 03/27/2017 IDANIA CHAU DO Ot F17.210 NICOTINE DEPENDENCE, CIGARETTES, UNCOMPL 03/27/2017 IDANIA CHAU DO Ot F31.9 BIPOLAR DISORDER, UNSPECIFIED 03/27/2017 IDANIA CHAU DO Ot F43.10 POST-TRAUMATIC STRESS DISORDER, UNSPECIF 03/27/2017 IDANIA CHAU DO Ot F90.9 ATTENTION-DEFICIT HYPERACTIVITY DISORDER 03/27/2017 IDANIA CHAU DO Ot I70.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 03/27/2017 IDANIA CHAU DO Ot K21.9 GASTRO-ESOPHAGEAL REFLUX DISEASE WITHOUT 03/27/2017 IDANIA CHAU DO Ot K27.9 PEPTIC ULC, SITE UNSP, UNSP AC OR CHR 03/27/2017 IDANIA CHAU DO Ot K64.8 OTHER HEMORRHOIDS 03/27/2017 IDANIA CHAU DO Ot Z79.899 OTHER MEMBER OF THE LEGISLATIVE COUNCIL (CURRENT) DRUG THERAPY 03/27/2017 IDANIA CHAU DO Ot Z95.0 PRESENCE OF CARDIAC PACEMAKER 04/07/2017 IDANIA CHAU DO B Ot 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 04/07/2017 IDANIA CHAU DO Ot I25.2 OLD MYOCARDIAL INFARCTION 04/07/2017 IDANIA CHAU DO B Ot K29.50 UNSPECIFIED CHRONIC GASTRITIS WITHOUT BL 04/07/2017 IDANIA CHAU DO Ot K52.89 OTHER SPECIFIED NONINFECTIVE GASTROENTER 04/17/2017 MICHAEL MENJIVAR APRN Ot R14.0 ABDOMINAL DISTENSION (GASEOUS) 04/17/2017 MICHAEL MENJIVAR SUPERVISOR TRAVEL TRAILER Ot R63.5 ABNORMAL WEIGHT GAIN 04/17/2017 MICHAEL MENJIVAR APRN Ot Z21 ASYMPTOMATIC HUMAN IMMUNODEFICIENCY VIRU 04/17/2017 MICHAEL MENJIVAR SUPERVISOR TRAVEL TRAILER Ot R14.0 ABDOMINAL DISTENSION (GASEOUS) 04/17/2017 MICHAEL MENJIVAR APRN Ot R63.5 ABNORMAL WEIGHT GAIN 04/17/2017 MICHAEL MENJIVAR APRN Ot Z21 ASYMPTOMATIC HUMAN IMMUNODEFICIENCY VIRU 04/18/2017 IDANIA CHAU DO Ot 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 04/18/2017 IDANIA CHAU DO Ot I25.2 OLD MYOCARDIAL INFARCTION 04/18/2017 IDANIA CHAU DO Ot K29.50 UNSPECIFIED CHRONIC GASTRITIS WITHOUT BL 04/18/2017 IDANIA CHAU DO Ot K52.89 OTHER SPECIFIED NONINFECTIVE GASTROENTER 05/09/2017 MICHAEL MENJIVAR SUPERVISOR TRAVEL TRAILER Ot R14.0 ABDOMINAL DISTENSION (GASEOUS) 05/09/2017 MICHAEL MENJIVAR SUPERVISOR TRAVEL TRAILER Ot R63.5 ABNORMAL WEIGHT GAIN 05/09/2017 MICHAEL MENJIVAR R SUPERVISOR TRAVEL TRAILER Ot Z21 ASYMPTOMATIC HUMAN IMMUNODEFICIENCY VIRU 05/23/2017 MICHAEL MENJIVAR SUPERVISOR TRAVEL TRAILER Ot R14.0 ABDOMINAL DISTENSION (GASEOUS) 05/23/2017 MICHAEL MENJIVAR APRN Ot R63.5 ABNORMAL WEIGHT GAIN 05/23/2017 MICHAEL MENJIVAR APRN Ot Z21 ASYMPTOMATIC HUMAN IMMUNODEFICIENCY VIRU 06/24/2017 SHILOH JIM APRN Ot F31.9 BIPOLAR DISORDER, UNSPECIFIED 06/24/2017 SHILOH JIM APRN Ot F41.9 ANXIETY DISORDER, UNSPECIFIED 06/24/2017 SHILOH JIM APRN Ot F43.10 POST-TRAUMATIC STRESS DISORDER, UNSPECIF 06/24/2017 SHILOH JIM APRN Ot F90.9 ATTENTION-DEFICIT HYPERACTIVITY DISORDER 06/24/2017 SHILOH JIM APRN Ot J40 BRONCHITIS, NOT SPECIFIED ACUTE OR CH 06/24/2017 SHILOH JIM APRN Ot J44.9 CHRONIC OBSTRUCTIVE PULMONARY DISEASE, U 06/24/2017 SHILOH JIM APRN Ot K21.9 GASTRO-ESOPHAGEAL REFLUX DISEASE WITHOUT 06/24/2017 SHILOH JIM APRN Ot M54.5 LOW BACK PAIN 06/24/2017 SHILOH JIM APRN Ot N39.0 URINARY TRACT INFECTION, SITE NOT SPECIF 06/24/2017 SHILOH JIM APRN Ot Z87.19 PERSONAL HISTORY OF OTHER DISEASES OF TH 06/24/2017 SHILOH JIM APRN Ot Z87.440 PERSONAL HISTORY OF URINARY (TRACT) INFE 06/24/2017 SHILOH JIM APRN Ot Z87.59 PERSONAL HISTORY OF COMP OF PREG, CHLDBR 06/24/2017 SHILOH JIM APRN Ot Z90.89 ACQUIRED ABSENCE OF OTHER ORGANS 06/24/2017 SHILOH JIM SUPERVISOR TRAVEL TRAILER Ot Z95.0 PRESENCE OF CARDIAC PACEMAKER 06/24/2017 SHILOH JIM SUPERVISOR TRAVEL TRAILER Ot Z98.84 BARIATRIC SURGERY STATUS 06/25/2017 HIRAM DAVISC, ALI FACP CCDS Ot F19.21 OTHER PSYCHOACTIVE SUBSTANCE DEPENDENCE, 06/25/2017 HIRAM DAVISC, ALI FACP CCDS Ot I25.2 OLD MYOCARDIAL INFARCTION 06/25/2017 HIRAM DAVISC, ALI FACP CCDS Ot I70.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 06/25/2017 HIRAM DAVISC, ALI FACP CCDS Ot R94.31 ABNORMAL ELECTROCARDIOGRAM [ECG] [EKG] 06/25/2017 HIRAM PRESTON FACC, ALI FACP CCDS Ot Z21 ASYMPTOMATIC HUMAN IMMUNODEFICIENCY VIRU 06/25/2017 HIRAM PRESTON FACC, ALI FACP CCDS Ot Z72.0 TOBACCO USE 06/25/2017 HIRAM PRESTON FACC, ALI FACP CCDS Ot F19.21 OTHER PSYCHOACTIVE SUBSTANCE DEPENDENCE, 06/25/2017 HIRAM PRESTON FACC, ALI FACP CCDS Ot I25.2 OLD MYOCARDIAL INFARCTION 06/25/2017 HIRAM DAVISC, ALI FACP CCDS Ot I70.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 06/25/2017 HIRAM PRESTON FACC, ALI FACP CCDS Ot R94.31 ABNORMAL ELECTROCARDIOGRAM [ECG] [EKG] 06/25/2017 HIRAM PRESTON FACC, ALI FACP CCDS Ot Z21 ASYMPTOMATIC HUMAN IMMUNODEFICIENCY VIRU 06/25/2017 HIRAM PRESTON FACC, ALI FACP CCDS Ot Z72.0 TOBACCO USE 06/25/2017 HIRAM PRESTON FACC, ALI FACP CCDS Ot F19.21 OTHER PSYCHOACTIVE SUBSTANCE DEPENDENCE, 06/25/2017 HIRAM PRESTON FACC, ALI FACP CCDS Ot I25.2 OLD MYOCARDIAL INFARCTION 06/25/2017 HIRAM PRESTON FACC, ALI FACP CCDS Ot I70.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 06/25/2017 HIRAM DAVISC, ALI FACP CCDS Ot R94.31 ABNORMAL ELECTROCARDIOGRAM [ECG] [EKG] 06/25/2017 HIRAM PRESTON FACC, ALI FACP CCDS Ot Z21 ASYMPTOMATIC HUMAN IMMUNODEFICIENCY VIRU 06/25/2017 HIRAM PRESTON FACC, SAMUEL DAVISP CCDS Ot Z72.0 TOBACCO USE 06/25/2017 ANISH MO SUPERVISOR TRAVEL TRAILER Ot R90.89 OTH ABNORMAL FINDINGS ON DIAGNOSTIC IMAG 06/25/2017 DARYN STOREY ENAMEL DIPPER Ot R93.0 ABNORMAL FINDINGS ON DX IMAGING OF SKULL 06/25/2017 ANISH MO APRN Ot J44.9 CHRONIC OBSTRUCTIVE PULMONARY DISEASE, U 06/25/2017 STEFFANIEHECTOR JOVAN ANDRADEIC B Ot 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 06/25/2017 KANDI DO IDANIA B Ot I25.2 OLD MYOCARDIAL INFARCTION 06/25/2017 KANDI ANDRADE IDANIA B Ot K29.50 UNSPECIFIED CHRONIC GASTRITIS WITHOUT BL 06/25/2017 KANDI DO IDANIA B Ot K52.89 OTHER SPECIFIED NONINFECTIVE GASTROENTER 06/25/2017 MICHAEL MENJIVAR SUPERVISOR TRAVEL TRAILER Ot R14.0 ABDOMINAL DISTENSION (GASEOUS) 06/25/2017 MICHAEL MENJIVAR APRN Ot R63.5 ABNORMAL WEIGHT GAIN 06/25/2017 MICHAEL MENJIVAR SUPERVISOR TRAVEL TRAILER Ot Z21 ASYMPTOMATIC HUMAN IMMUNODEFICIENCY VIRU 06/26/2017 SHILOH JIM APRN Ot F31.9 BIPOLAR DISORDER, UNSPECIFIED 06/26/2017 SHILOH JIM APRN Ot F41.9 ANXIETY DISORDER, UNSPECIFIED 06/26/2017 SHILOH JIM APRN Ot F43.10 POST-TRAUMATIC STRESS DISORDER, UNSPECIF 06/26/2017 SHILOH JIM APRN Ot F90.9 ATTENTION-DEFICIT HYPERACTIVITY DISORDER 06/26/2017 SHILOH JIM APRN Ot J40 BRONCHITIS, NOT SPECIFIED ACUTE OR CH 06/26/2017 SHILOH JIM APRN Ot J44.9 CHRONIC OBSTRUCTIVE PULMONARY DISEASE, U 06/26/2017 SHILOH JIM APRN Ot K21.9 GASTRO-ESOPHAGEAL REFLUX DISEASE WITHOUT 06/26/2017 SHILOH JIM APRN Ot M54.5 LOW BACK PAIN 06/26/2017 SHILOH JIM APRN Ot N39.0 URINARY TRACT INFECTION, SITE NOT SPECIF 06/26/2017 SHILOH JIM APRN Ot Z87.19 PERSONAL HISTORY OF OTHER DISEASES OF TH 06/26/2017 SHILOH JIM APRN Ot Z87.440 PERSONAL HISTORY OF URINARY (TRACT) INFE 06/26/2017 SHILOH JIM APRN Ot Z87.59 PERSONAL HISTORY OF COMP OF PREG, CHLDBR 06/26/2017 SHILOH JIM APRN Ot Z90.89 ACQUIRED ABSENCE OF OTHER ORGANS 06/26/2017 SHILOH JIM APRN Ot Z95.0 PRESENCE OF CARDIAC PACEMAKER 06/26/2017 SHILOH JIM APRN Ot Z98.84 BARIATRIC SURGERY STATUS 06/30/2017 SHILOH JIM APRN Ot F31.9 BIPOLAR DISORDER, UNSPECIFIED 06/30/2017 SHILOH JIM APRN Ot F41.9 ANXIETY DISORDER, UNSPECIFIED 06/30/2017 SHILOH JIM APRN Ot F43.10 POST-TRAUMATIC STRESS DISORDER, UNSPECIF 06/30/2017 SHILOH JIM APRN Ot F90.9 ATTENTION-DEFICIT HYPERACTIVITY DISORDER 06/30/2017 SIHLOH JIM APRN Ot J40 BRONCHITIS, NOT SPECIFIED ACUTE OR CH 06/30/2017 SHILOH JIM APRN Ot J44.9 CHRONIC OBSTRUCTIVE PULMONARY DISEASE, U 06/30/2017 SHILOH JIM APRN Ot K21.9 GASTRO-ESOPHAGEAL REFLUX DISEASE WITHOUT 06/30/2017 SHILOH JIM APRN Ot M54.5 LOW BACK PAIN 06/30/2017 SHILOH JIM APRN Ot N39.0 URINARY TRACT INFECTION, SITE NOT SPECIF 06/30/2017 SHILOH JIM APRN Ot Z87.19 PERSONAL HISTORY OF OTHER DISEASES OF TH 06/30/2017 SHILOH JIM APRN Ot Z87.440 PERSONAL HISTORY OF URINARY (TRACT) INFE 06/30/2017 SHILOH JIM APRN Ot Z87.59 PERSONAL HISTORY OF COMP OF PREG, CHLDBR 06/30/2017 SHILOH JIM APRN Ot Z90.89 ACQUIRED ABSENCE OF OTHER ORGANS 06/30/2017 SHILOH JIM APRN Ot Z95.0 PRESENCE OF CARDIAC PACEMAKER 06/30/2017 SHILOH JIM APRN Ot Z98.84 BARIATRIC SURGERY STATUS 07/04/2017 HIRAM PRESTON FACC, ALI FACP CCDS Ot F19.21 OTHER PSYCHOACTIVE SUBSTANCE DEPENDENCE, 07/04/2017 HIRAM PRESTON FACC, ALI FACP CCDS Ot I25.2 OLD MYOCARDIAL INFARCTION 07/04/2017 HIRAM MD FACC, ALI FACP CCDS Ot I70.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 07/04/2017 HIRAM PRESTON FACC, ALI FACP CCDS Ot R94.31 ABNORMAL ELECTROCARDIOGRAM [ECG] [EKG] 07/04/2017 HIRAM PRESTON FACC, ALI FACP CCDS Ot Z21 ASYMPTOMATIC HUMAN IMMUNODEFICIENCY VIRU 07/04/2017 HIRAM PRESTON FACC, ALI FACP CCDS Ot Z72.0 TOBACCO USE 07/04/2017 HIRAM PRESTON FACC, ALI FACP CCDS Ot F19.21 OTHER PSYCHOACTIVE SUBSTANCE DEPENDENCE, 07/04/2017 HIRAM PRESTON FACC, ALI FACP CCDS Ot I25.2 OLD MYOCARDIAL INFARCTION 07/04/2017 HIRAM PRESTON FACC, ALI FACP CCDS Ot I70.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 07/04/2017 HIRAM PRESTON FACC, ALI FACP CCDS Ot R94.31 ABNORMAL ELECTROCARDIOGRAM [ECG] [EKG] 07/04/2017 HIRAM DAVISC, ALI FACP CCDS Ot Z21 ASYMPTOMATIC HUMAN IMMUNODEFICIENCY VIRU 07/04/2017 HIRAM PRESTON FACC, ALI FACP CCDS Ot Z72.0 TOBACCO USE 07/04/2017 HIRAM DAVISC, ALI FACP CCDS Ot F19.21 OTHER PSYCHOACTIVE SUBSTANCE DEPENDENCE, 07/04/2017 HIRAM DAVISC, ALI FACP CCDS Ot I25.2 OLD MYOCARDIAL INFARCTION 07/04/2017 HIRAM PRESTON FACC, ALI FACP CCDS Ot I70.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 07/04/2017 HIRAM DAVISC, ALI FACP CCDS Ot R94.31 ABNORMAL ELECTROCARDIOGRAM [ECG] [EKG] 07/04/2017 HIRAM DAVISC, ALI FACP CCDS Ot Z21 ASYMPTOMATIC HUMAN IMMUNODEFICIENCY VIRU 07/04/2017 HIRAM DAVISC, ALI FACP CCDS Ot Z72.0 TOBACCO USE 07/04/2017 ANISH MO APRN Ot R90.89 OTH ABNORMAL FINDINGS ON DIAGNOSTIC IMAG 07/04/2017 DARYN STOREY ENAMEL DIPPER Ot R93.0 ABNORMAL FINDINGS ON DX IMAGING OF SKULL 07/04/2017 ANISH MO APRN Ot J44.9 CHRONIC OBSTRUCTIVE PULMONARY DISEASE, U 07/04/2017 IDANIA CHAU DO Ot 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 07/04/2017 IDANIA CHAU DO Ot I25.2 OLD MYOCARDIAL INFARCTION 07/04/2017 IDANIA CHAU DO Ot K29.50 UNSPECIFIED CHRONIC GASTRITIS WITHOUT BL 07/04/2017 IDANIA CHAU DO Ot K52.89 OTHER SPECIFIED NONINFECTIVE GASTROENTER 07/04/2017 MICHAEL MENJIVAR SUPERVISOR TRAVEL TRAILER Ot R14.0 ABDOMINAL DISTENSION (GASEOUS) 07/04/2017 MICHAEL MENJIVAR SUPERVISOR TRAVEL TRAILER Ot R63.5 ABNORMAL WEIGHT GAIN 07/04/2017 MICHAEL MENJIVAR SUPERVISOR TRAVEL TRAILER Ot Z21 ASYMPTOMATIC HUMAN IMMUNODEFICIENCY VIRU 07/09/2017 BAIMA, GEORGE L ENAMEL DIPPER Ot E66.8 OTHER OBESITY 07/09/2017 BAIMA, GEORGE L ENAMEL DIPPER Ot R00.2 PALPITATIONS 07/09/2017 BAIMA, GEORGE L ENAMEL DIPPER Ot R06.02 SHORTNESS OF BREATH 07/09/2017 BAIMA, GEORGE L ENAMEL DIPPER Ot R07.9 CHEST PAIN, UNSPECIFIED 07/09/2017 BAIMA, GEORGE L ENAMEL DIPPER Ot Z72.0 TOBACCO USE 07/28/2017 BAIMA, GEORGE L ENAMEL DIPPER Ot E66.9 OBESITY, UNSPECIFIED 07/28/2017 BAIMA, GEORGE L ENAMEL DIPPER Ot R00.2 PALPITATIONS 07/28/2017 BAIMA, GEORGE L ENAMEL DIPPER Ot R06.02 SHORTNESS OF BREATH 07/28/2017 BAIMA, GEORGE L ENAMEL DIPPER Ot R07.89 OTHER CHEST PAIN 07/28/2017 BAIMA, GEORGE L ENAMEL DIPPER Ot Z72.0 TOBACCO USE 07/30/2017 BAIMA, GEORGE L ENAMEL DIPPER Ot E66.8 OTHER OBESITY 07/30/2017 BAIMA, GEORGE L ENAMEL DIPPER Ot R00.2 PALPITATIONS 07/30/2017 BAIMA, GEORGE L ENAMEL DIPPER Ot R06.02 SHORTNESS OF BREATH 07/30/2017 BAIMA, GEORGE L ENAMEL DIPPER Ot R07.9 CHEST PAIN, UNSPECIFIED 07/30/2017 BAIMA, GEORGE L ENAMEL DIPPER Ot Z72.0 TOBACCO USE 08/13/2017 BAIMA, GEORGE L ENAMEL DIPPER Ot E66.9 OBESITY, UNSPECIFIED 08/13/2017 BAIMA, GEORGE L ENAMEL DIPPER Ot R00.2 PALPITATIONS 08/13/2017 BAIGEORGE DALY L ENAMEL DIPPER Ot R06.02 SHORTNESS OF BREATH 08/13/2017 BAIGEORGE DALY L ENAMEL DIPPER Ot R07.89 OTHER CHEST PAIN 08/13/2017 HANNAHGEORGE DALY ENAMEL DIPPER Ot Z72.0 TOBACCO USE 09/09/2017 HIRAM PRESTON FACC, ALI FACP CCDS Ot F19.21 OTHER PSYCHOACTIVE SUBSTANCE DEPENDENCE, 09/09/2017 HIRAM DAVISC, ALI FACP CCDS Ot I25.2 OLD MYOCARDIAL INFARCTION 09/09/2017 HIRAM PRESTON FACC, ALI FACP CCDS Ot I70.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 09/09/2017 HIRAM DAVISC, ALI FACP CCDS Ot R94.31 ABNORMAL ELECTROCARDIOGRAM [ECG] [EKG] 09/09/2017 HIRAM DAVISC, ALI FACP CCDS Ot Z21 ASYMPTOMATIC HUMAN IMMUNODEFICIENCY VIRU 09/09/2017 HIRAM PRESTON FACC, ALI FACP CCDS Ot Z72.0 TOBACCO USE 09/09/2017 HIRAM PRESTON FACC, ALI FACP CCDS Ot F19.21 OTHER PSYCHOACTIVE SUBSTANCE DEPENDENCE, 09/09/2017 HIRAM PRESTON FACC, ALI FACP CCDS Ot I25.2 OLD MYOCARDIAL INFARCTION 09/09/2017 HIRAM PRESTON FACC, ALI FACP CCDS Ot I70.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 09/09/2017 HIRAM DAVISC, ALI FACP CCDS Ot R94.31 ABNORMAL ELECTROCARDIOGRAM [ECG] [EKG] 09/09/2017 HIRAM PRESTON FACC, ALI FACP CCDS Ot Z21 ASYMPTOMATIC HUMAN IMMUNODEFICIENCY VIRU 09/09/2017 HIRAM PRESTON FACC, ALI FACP CCDS Ot Z72.0 TOBACCO USE 09/09/2017 HIRAM PRESTON FACC, ALI FACP CCDS Ot F19.21 OTHER PSYCHOACTIVE SUBSTANCE DEPENDENCE, 09/09/2017 HIRAM PRESTON FACC, ALI FACP CCDS Ot I25.2 OLD MYOCARDIAL INFARCTION 09/09/2017 HIRAM DAVISC, ALI FACP CCDS Ot I70.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 09/09/2017 HIRAM DAVISC, ALI FACP CCDS Ot R94.31 ABNORMAL ELECTROCARDIOGRAM [ECG] [EKG] 09/09/2017 HIRAM PRESTON FAC, SAMUEL DAVISP CCDS Ot Z21 ASYMPTOMATIC HUMAN IMMUNODEFICIENCY VIRU 09/09/2017 HIRAM PRESTON FACEzra, SAMUEL CALVERT CCDS Ot Z72.0 TOBACCO USE 09/09/2017 ANISH MO APRN Ot R90.89 OTH ABNORMAL FINDINGS ON DIAGNOSTIC IMAG 09/09/2017 DARYN STOREY ENAMEL DIPPER Ot R93.0 ABNORMAL FINDINGS ON DX IMAGING OF SKULL 09/09/2017 ANISH MO SUPERVISOR TRAVEL TRAILER Ot J44.9 CHRONIC OBSTRUCTIVE PULMONARY DISEASE, U 09/09/2017 KANDI ANDRADE IDANIA B Ot 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 09/09/2017 IDANIA CHAU DO B Ot I25.2 OLD MYOCARDIAL INFARCTION 09/09/2017 KANDI ANDRADE IDANIA B Ot K29.50 UNSPECIFIED CHRONIC GASTRITIS WITHOUT BL 09/09/2017 KANDI ANDRADE IDANIA B Ot K52.89 OTHER SPECIFIED NONINFECTIVE GASTROENTER 09/09/2017 MICHAEL MENJIVAR SUPERVISOR TRAVEL TRAILER Ot R14.0 ABDOMINAL DISTENSION (GASEOUS) 09/09/2017 MICHAEL MENJIVAR SUPERVISOR TRAVEL TRAILER Ot R63.5 ABNORMAL WEIGHT GAIN 09/09/2017 MICHAEL MENJIVAR SUPERVISOR TRAVEL TRAILER Ot Z21 ASYMPTOMATIC HUMAN IMMUNODEFICIENCY VIRU 09/09/2017 BAIMA, GEORGE L ENAMEL DIPPER Ot E66.9 OBESITY, UNSPECIFIED 09/09/2017 BAIMA, GEORGE L ENAMEL DIPPER Ot R00.2 PALPITATIONS 09/09/2017 BAIMA, GEORGE L ENAMEL DIPPER Ot R06.02 SHORTNESS OF BREATH 09/09/2017 BAIMA, GEORGE L ENAMEL DIPPER Ot R07.89 OTHER CHEST PAIN 09/09/2017 BAIMA, GEORGE L ENAMEL DIPPER Ot Z72.0 TOBACCO USE 09/09/2017 BAIMA, GEORGE L ENAMEL DIPPER Ot E66.8 OTHER OBESITY 09/09/2017 BAIMA, GEORGE L ENAMEL DIPPER Ot R00.2 PALPITATIONS 09/09/2017 BAIMA, GEORGE L ENAMEL DIPPER Ot R06.02 SHORTNESS OF BREATH 09/09/2017 BAIMA, GEORGE L ENAMEL DIPPER Ot R07.9 CHEST PAIN, UNSPECIFIED 09/09/2017 BAIMA, GEORGE L ENAMEL DIPPER Ot Z72.0 TOBACCO USE 09/11/2017 DELFINA, CATHY ENAMEL DIPPER Ot F12.10 CANNABIS ABUSE, UNCOMPLICATED 09/11/2017 DELFINA, CATHY ENAMEL DIPPER Ot F15.10 OTHER STIMULANT ABUSE, UNCOMPLICATED 09/11/2017 DELFINA, CATHY ENAMEL DIPPER Ot F17.210 NICOTINE DEPENDENCE, CIGARETTES, UNCOMPL 09/11/2017 DELFINA, CATHY ENAMEL DIPPER Ot F31.9 BIPOLAR DISORDER, UNSPECIFIED 09/11/2017 DELFINA, CATHY ENAMEL DIPPER Ot F41.9 ANXIETY DISORDER, UNSPECIFIED 09/11/2017 DELFINA, CATHY ENAMEL DIPPER Ot F90.9 ATTENTION-DEFICIT HYPERACTIVITY DISORDER 09/11/2017 DELFINA, CATHY ENAMEL DIPPER Ot J44.9 CHRONIC OBSTRUCTIVE PULMONARY DISEASE, U 09/11/2017 DELFINA, CATHY ENAMEL DIPPER Ot K21.9 GASTRO-ESOPHAGEAL REFLUX DISEASE WITHOUT 09/11/2017 DELFINA CATHY ENAMEL DIPPER Ot L03.113 CELLULITIS OF RIGHT UPPER LIMB 09/11/2017 CATHY MATHIS ENAMEL DIPPER Ot S60.561A INSECT BITE (NONVENOMOUS) OF RIGHT HAND, 09/11/2017 DELFINA CATHY ENAMEL DIPPER Ot Z87.19 PERSONAL HISTORY OF OTHER DISEASES OF TH 09/11/2017 DELFINA CATHY ENAMEL DIPPER Ot Z87.448 PERSONAL HISTORY OF OTHER DISEASES OF UR 09/11/2017 DELFINA CATHY ENAMEL DIPPER Ot Z87.59 PERSONAL HISTORY OF COMP OF PREG, CHLDBR 09/11/2017 DELFINA CATHY ENAMEL DIPPER Ot Z90.89 ACQUIRED ABSENCE OF OTHER ORGANS 09/11/2017 DELFINA CATHY ENAMEL DIPPER Ot Z95.0 PRESENCE OF CARDIAC PACEMAKER 09/11/2017 DELFINA CATHY ENAMEL DIPPER Ot Z98.84 BARIATRIC SURGERY STATUS 09/11/2017 CATHY MATHIS ENAMEL DIPPER Ot F12.10 CANNABIS ABUSE, UNCOMPLICATED 09/11/2017 DELFINA, CATHY ENAMEL DIPPER Ot F15.10 OTHER STIMULANT ABUSE, UNCOMPLICATED 09/11/2017 DELFINA, CATHY ENAMEL DIPPER Ot F17.210 NICOTINE DEPENDENCE, CIGARETTES, UNCOMPL 09/11/2017 DELFINA, CATHY ENAMEL DIPPER Ot F31.9 BIPOLAR DISORDER, UNSPECIFIED 09/11/2017 DELFINA, CATHY ENAMEL DIPPER Ot F41.9 ANXIETY DISORDER, UNSPECIFIED 09/11/2017 DELFINA, CATHY ENAMEL DIPPER Ot F90.9 ATTENTION-DEFICIT HYPERACTIVITY DISORDER 09/11/2017 DELFINA, CATHY ENAMEL DIPPER Ot J44.9 CHRONIC OBSTRUCTIVE PULMONARY DISEASE, U 09/11/2017 CATHY MATHIS Ot K21.9 GASTRO-ESOPHAGEAL REFLUX DISEASE WITHOUT 09/11/2017 CATHY MATHIS Ot L03.113 CELLULITIS OF RIGHT UPPER LIMB 09/11/2017 CATHY MATHIS Ot S60.561A INSECT BITE (NONVENOMOUS) OF RIGHT HAND, 09/11/2017 CATHY MATHIS Ot Z87.19 PERSONAL HISTORY OF OTHER DISEASES OF TH 09/11/2017 CATHY MATHIS Ot Z87.448 PERSONAL HISTORY OF OTHER DISEASES OF UR 09/11/2017 CATHY MATHISP Ot Z87.59 PERSONAL HISTORY OF COMP OF PREG, CHLDBR 09/11/2017 CATHY MATHISP Ot Z90.89 ACQUIRED ABSENCE OF OTHER ORGANS 09/11/2017 CATHY MATHISP Ot Z95.0 PRESENCE OF CARDIAC PACEMAKER 09/11/2017 CATHY MATHISP Ot Z98.84 BARIATRIC SURGERY STATUS Procedures Code Description [place] [address] LIGATE/STRIP LONG LEG VEI Cole Chua MD 02/17/2012 89407 PHLEB VEINS - EXTREM - TO Cole Chua MD 02/17/2012 34.91 THORACENTESIS González Dee MD 09/21/2012 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 BX Leila PRESTON, González Dillard 09/23/2012 45.16 ESOPHAGOGASTRODUODENOSCOPY [ EGD] W/CLOSED BIOPSY Franco Dennison MD 09/21 48.24 ENDOSCOPIC BIOPSY OF RECTUM Franco Dennison MD 09/21/2014 51773 CHEST 2 VW AP/LAT RAMSEY BRADY 11/30/2015 <section xmlns="urn:hl7-org:v3" xmlns:xsi="http:// www.w3.org/2001/XMLSchema-instance"> <templateId root= "[id number]" /> <templateId root= "[id number]" /> <code codeSystemName="LOINC" codeSystem= "[id number]" code="88736-5" displayName="Results" /> <title>Results< /title> <text> <table> <thead> <tr> <th>Test</th> <th>Result</th> <th>Range</th> </tr> </thead> < tbody> <tr> <th colspan="10">CBC W/DIFF - 12/17/11 12:45</th> </tr> <tr> <td>EOSINOPHIL #</td> <td>0.1 k/cumm</ td> <td>0.1-0.5</td> </tr> <tr> <td>EOSINOPHIL & #37;</td> <td>1 %</td> <td>2-4</td> </tr> < tr> <td>GRANULOCYTE #</td> <td>5.3 k/cumm</td> <td> 2.0-9.0</td> </tr> <tr> <td>GRANULOCYTE %</td> <td>76 %</td> <td>50-75</td> </tr> <tr> <td>LYMPHOCYTE #</td> <td>1.0 k/cumm</td> <td>1.0-4.0</td> </tr> <tr> <td>LYMPHOCYTE %</td> <td>15 %< /td> <td>20-30</td> </tr> <tr> <td>MEAN CELL HGB </td> <td>24.9 pg</td> <td>27.0-33.0</td> </tr> <tr> <td>MEAN CELL HGB CONCENTRATION</td> <td>31.6 g/dl</td> <td>32.0-36.0</td> </tr> <tr> <td>MEAN CELL VOLUME</td> <td>78.7 fl</td> <td>80.0-100.0</td> </tr> <tr> <td>MONOCYTE #</td> <td>0.6 k/cumm</td> <td>0.1-1.0</td> </tr> <tr> <td>MONOCYTE %</td> <td>8 %</td> <td>4-6</td> </tr> <tr> < td>RED BLOOD CELL</td> <td>4.78 m/cumm</td> <td>4.00-6.00</td > </tr> <tr> <td>RED CELL DISTRIBUTION WIDTH</td> <td>17.6 %</td> <td>11.0-15.6</td> </tr> <tr> <td>WHITE BLOOD CELL</td> <td>7.0 k/cumm</td> <td>5.0- 10.0</td> </tr> <tr> <td>HEMOGLOBIN</td> <td> 11.9 gm/dL</td> <td>12.0-16.0</td> </tr> <tr> < td>HEMATOCRIT</td> <td>37.6 %</td> <td>37.0-47.0</td> </tr> <tr> <td>PLATELET COUNT</td> <td>303 k/cumm</ td> <td>150-450</td> </tr> <tr> <th colspan="10 ">METABOLIC PANEL, BASIC - 12/17/11 12:45</th> </tr> <tr> <td>POTASSIUM</td> <td>3.9 mmol/L</td> <td>3.5-5.3</td> </tr> <tr> <td>EST GFR (MDRD)</td> <td>> 60 mL/ min</td> <td>> 59</td> </tr> <tr> <td>ANION GAP</td> <td>7 mmol/L</td> <td>5-15</td> </tr> < tr> <td>EST CrCl (CG)</td> <td>> 60 mL/min</td> < td>> 59</td> </tr> <tr> <td>GLUCOSE</td> <td> 83 mg/dL</td> <td>70-99</td> </tr> <tr> <td> CALCIUM</td> <td>8.7 mg/dL</td> <td>8.5-10.1</td> </tr > <tr> <td>BLOOD UREA NITROGEN</td> <td>7 mg/dL</td> <td>7-20</td> </tr> <tr> <td>CREATININE</td> <td>0.6 mg/dL</td> <td>0.6-1.0</td> </tr> <tr> <td>SODIUM</td> <td>138 mmol/L</td> <td>135-148</td> </tr> <tr> <td>CHLORIDE</td> <td>103 mmol/L</td> <td>98-110</td> </tr> <tr> <td>CARBON DIOXIDE</ td> <td>28 mmol/L</td> <td>21-32</td> </tr> <tr > <th colspan="10">HEPATIC FUNCTION PANEL - 12/17/11 12:45</th> </tr> <tr> <td>BILI UNCONJUGATED</td> <td>0.2 mg/dL</td > <td>0.0-0.7</td> </tr> <tr> <td>AST/SGOT</td> <td>31 Units/L</td> <td>10-37</td> </tr> <tr> <td>ALT/SGPT</td> <td>29 Units/L</td> <td>< 66</td > </tr> <tr> <td>TOTAL PROTEIN</td> <td>6.9 gm/ dL</td> <td>6.4-8.2</td> </tr> <tr> <td>ALBUMIN< /td> <td>3.6 gm/dL</td> <td>3.4-5.0</td> </tr> < tr> <td>BILI TOTAL</td> <td>0.2 mg/dL</td> <td>0.0- 1.0</td> </tr> <tr> <td>ALKALINE PHOSPHATASE TOTAL</td> <td>100 Units/L</td> <td>50-136</td> </tr> <tr> <td>BILI CONJUGATED</td> <td>0.1 mg/dL</td> <td>0.0- 0.3</td> </tr> <tr> <th colspan="10">LIPASE - 12/17/11 12 :45</th> </tr> <tr> <td>LIPASE</td> <td>124 Units/L</td> <td>73-393</td> </tr> <tr> <th colspan="10">AB H.PYLORI SCREEN - 12/17/11 12:45</th> </tr> <tr> <td>AB H.PYLORI SCREEN</td> <td>NEGATIVE </td> <td> NEGATIVE</td> </tr> <tr> <th colspan="10">UR TEST - 12/17/11 14:14</th> </tr> <tr> <td>UR TEST</td> <td>NEGATIVE </td> <td>NEGATIVE</td> </tr> <tr> <th colspan="10">UA MICROSCOPIC - 12/17/11 14:14</th> </tr> <tr> <td>UA BACTERIA</td> <td>5+ </td> <td>NEGATIVE</td> </tr> <tr> <td>UA EPITHELIAL CELLS</ td> <td>1+ epi/hpf</td> <td>0 - 1+</td> </tr> < tr> <td>UA RBC</td> <td>0-3 rbc/hpf</td> <td>0 - 3</ td> </tr> <tr> <td>UA VOLUME FOR EXAM</td> <td> 12.0 mL</td> <td>(12mL STD)</td> </tr> <tr> <td> UA WBC</td> <td>0-1 wbc/hpf</td> <td>0 - 5</td> </tr> <tr> <th colspan="10">URINE CULTURE - 12/17/11 14:14</th> </tr> <tr> <td>Uncategorized</td> <td> </td> <td /> </tr> <tr> <th colspan="10"> TEST, SERUM - 01/07/12 09:03</th> </tr> <tr> <td> TEST , SERUM</td> <td>NEGATIVE </td> <td>NEGATIVE</td> </tr > <tr> <th colspan="10">CHEM/HEM PROFILE-BEDSIDE - 10/19/13 00: 39</th> </tr> <tr> <td>POTASSIUM</td> <td>3.3 mmol/L</td> <td>3.5-5.3</td> </tr> <tr> <td> METHOD</td> <td>Bedside </td> <td /> </tr> <tr> <td>ANION GAP</td> <td>18 mmol/L</td> <td>10-20</td > </tr> <tr> <td>METHOD</td> <td>Bedside </td> <td /> </tr> <tr> <td>GLUCOSE</td> <td> 91 mg/dL</td> <td>70-99</td> </tr> <tr> <td> BLOOD UREA NITROGEN</td> <td>11 mg/dL</td> <td>7-20</td> </tr> <tr> <td>CREATININE</td> <td>0.7 mg/dL</td> <td>0.6-1.0</td> </tr> <tr> <td>HEMOGLOBIN</td> <td>12.6 gm/dL</td> <td>12.0-16.0</td> </tr> <tr > <td>HEMATOCRIT</td> <td>37.0 %</td> <td>37.0- 47.0</td> </tr> <tr> <td>SODIUM</td> <td>140 mmol/L</td> <td>135-148</td> </tr> <tr> <td> CHLORIDE</td> <td>106 mmol/L</td> <td>98-110</td> </tr > <tr> <td>CARBON DIOXIDE</td> <td>20 mmol/L</td> <td>21-32</td> </tr> <tr> <td>CALCIUM IONIZED</td> <td>4.9 mg/dL</td> <td>4.5-5.3</td> </tr> <tr> <th colspan="10">URINE CULTURE - 04/17/14 00:00</th> </tr> <tr> <td>Microbiology</td> <td> </td> <td /> </tr> <tr> <th colspan="10">URINALYSIS, ROUTINE - 08/15/14 16 :33</th> </tr> <tr> <td>UA LEUKOCYTE ESTERASE DIPSTICK</ td> <td>NEGATIVE </td> <td>NEGATIVE</td> </tr> < tr> <td>UA NITRITE DIPSTICK</td> <td>POSITIVE </td> < td>NEGATIVE</td> </tr> <tr> <td>UA PROTEIN DIPSTICK</td> <td>NEGATIVE </td> <td>NEGATIVE</td> </tr> <tr > <td>UA GLUCOSE DIPSTICK</td> <td>NEGATIVE </td> <td >NEGATIVE</td> </tr> <tr> <td>UA KETONE DIPSTICK</td> <td>NEGATIVE </td> <td>NEGATIVE</td> </tr> <tr> <td>UA UROBILINOGEN DIPSTICK</td> <td>NORMAL </td> <td >NORMAL</td> </tr> <tr> <td>UA BILIRUBIN DIPSTICK</td> <td>NEGATIVE </td> <td>NEGATIVE</td> </tr> <tr> <td>UA BLOOD DIPSTICK</td> <td>NEGATIVE </td> <td> NEGATIVE</td> </tr> <tr> <td>UA SPECIFIC GRAVITY</td> <td>1.025 </td> <td>1.015-1.025</td> </tr> <tr> <td>UR PH</td> <td>5.5 </td> <td>5.0-7.0</td> < /tr> <tr> < colspan="10">UA MICROSCOPIC - 08/15/14 16:33</th> </tr> <tr> <td>UA BACTERIA</td> <td>3+ </td> <td>NEGATIVE</td> </tr> <tr> <td>UA EPITHELIAL CELLS</td> <td>4+ epi/hpf</td> <td>0 - 1+</td> </tr> <tr> <td>UA MUCUS</td> <td>3+ </td> <td>NEG TO 1+</td> </tr> <tr> <td>UA RBC</td> <td>0-3 rbc/ hpf</td> <td>0 - 3</td> </tr> <tr> <td>UA VOLUME FOR EXAM</td> <td>12.0 mL</td> <td>(12mL STD)</td> </tr> <tr> <td>UA WBC</td> <td>5-10 wbc/hpf</td> <td>0 - 5</td> </tr> <tr> < colspan="10">UR TEST - 08/15/14 16:35</th> </tr> <tr> <td>UR TEST</td> <td>NEGATIVE </td> <td>NEGATIVE</td> </tr> <tr> <th colspan="10"> TEST, SERUM - 09/21/14 15:00</th> </tr> <tr> <td> TEST, SERUM</td> <td>NEGATIVE </td> <td>NEGATIVE</td> </tr> <tr> <th colspan="10">GRAM STAIN - 09/21/14 17:08</th> </tr> <tr > <td>Microbiology</td> <td> </td> <td /> </tr > <tr> <th colspan="10">URINALYSIS, ROUTINE - 10/10/14 09:21</th > </tr> <tr> <td>UA LEUKOCYTE ESTERASE DIPSTICK</td> <td>NEGATIVE </td> <td>NEGATIVE</td> </tr> <tr> <td>UA NITRITE DIPSTICK</td> <td>POSITIVE </td> <td> NEGATIVE</td> </tr> <tr> <td>UA PROTEIN DIPSTICK</td> <td>NEGATIVE </td> <td>NEGATIVE</td> </tr> <tr> <td>UA GLUCOSE DIPSTICK</td> <td>NEGATIVE </td> <td> NEGATIVE</td> </tr> <tr> <td>UA KETONE DIPSTICK</td> <td>NEGATIVE </td> <td>NEGATIVE</td> </tr> <tr> <td>UA UROBILINOGEN DIPSTICK</td> <td>NORMAL </td> <td> NORMAL</td> </tr> <tr> <td>UA BILIRUBIN DIPSTICK</td> <td>NEGATIVE </td> <td>NEGATIVE</td> </tr> <tr> <td>UA BLOOD DIPSTICK</td> <td>1+ </td> <td>NEGATIVE</ td> </tr> <tr> <td>UA SPECIFIC GRAVITY</td> <td> >=1.030 </td> <td>1.015-1.025</td> </tr> <tr> <td>UR PH</td> <td>5.0 </td> <td>5.0-7.0</td> </tr> <tr> <td>Microbiology</td> <td> </td> <td /> </tr> <tr> <th colspan="10">UA MICROSCOPIC - 10/10/14 09: 21</th> </tr> <tr> <td>UA BACTERIA</td> <td>3+ < /td> <td>NEGATIVE</td> </tr> <tr> <td>UA EPITHELIAL CELLS</td> <td>2+ epi/hpf</td> <td>0 - 1+</td> </tr> <tr> <td>UA MUCUS</td> <td>1+ </td> <td>NEG TO 1+</td> </tr> <tr> <td>UA RBC</td> < td>0-3 rbc/hpf</td> <td>0 - 3</td> </tr> <tr> < td>UA VOLUME FOR EXAM</td> <td>12.0 mL</td> <td>(12mL STD)</td > </tr> <tr> <td>UA WBC</td> <td>2-5 wbc/hpf</td > <td>0 - 5</td> </tr> <tr> <th colspan="10"> CBC W/DIFF - 10/10/14 09:21</th> </tr> <tr> <td> EOSINOPHIL #</td> <td>0.1 k/cumm</td> <td>0.1-0.5</td> </tr> <tr> <td>EOSINOPHIL %</td> <td>1 %</td> <td>2-4</td> </tr> <tr> <td>GRANULOCYTE #</td> <td>3.9 k/cumm</td> <td>2.0-9.0</td> </tr> <tr> <td>GRANULOCYTE %</td> <td>67 %</td> <td>50- 75</td> </tr> <tr> <td>LYMPHOCYTE #</td> <td> 1.2 k/cumm</td> <td>1.0-4.0</td> </tr> <tr> <td> LYMPHOCYTE %</td> <td>20 %</td> <td>20-30</td> </tr> <tr> <td>MEAN CELL HGB</td> <td>29.5 pg</td> <td>27.0-33.0</td> </tr> <tr> <td>MEAN CELL HGB CONCENTRATION</td> <td>33.6 g/dL</td> <td>32.0-37.0</td> </tr> <tr> <td>MEAN CELL VOLUME</td> <td>87.8 fl</td > <td>80.0-100.0</td> </tr> <tr> <td>MONOCYTE #< /td> <td>0.7 k/cumm</td> <td>0.1-1.0</td> </tr> <tr> <td>MONOCYTE %</td> <td>11 %</td> <td>4- 6</td> </tr> <tr> <td>RED BLOOD CELL</td> <td> 4.92 m/cumm</td> <td>4.00-6.00</td> </tr> <tr> < td>RED CELL DISTRIBUTION WIDTH</td> <td>14.0 %</td> <td> 11.0-15.6</td> </tr> <tr> <td>WHITE BLOOD CELL</td> <td>5.8 k/cumm</td> <td>5.0-10.0</td> </tr> <tr> <td>HEMOGLOBIN</td> <td>14.5 gm/dL</td> <td>12.0-16.0</ td> </tr> <tr> <td>HEMATOCRIT</td> <td>43.2 &#37 ;</td> <td>37.0-47.0</td> </tr> <tr> <td> PLATELET COUNT</td> <td>220 k/cumm</td> <td>150-400</td> </tr> <tr> <td>Microbiology</td> <td> </td> <td /> </tr> <tr> < colspan="10">HEPATIC FUNCTION PANEL - 10/10/14 09:21</th> </tr> <tr> <td>BILI UNCONJUGATED</td> <td>2.2 mg/dL</td> <td>0.0-0.7</td> < /tr> <tr> <td>AST/SGOT</td> <td>93 Units/L</td> <td>10-37</td> </tr> <tr> <td>ALT/SGPT</td> < td>47 Units/L</td> <td>< 66</td> </tr> <tr> < td>TOTAL PROTEIN</td> <td>6.5 gm/dL</td> <td>6.4-8.2</td> </tr> <tr> <td>ALBUMIN</td> <td>3.6 gm/dL</td> <td>3.4-5.0</td> </tr> <tr> <td>BILI TOTAL</td> <td>2.6 mg/dL</td> <td>0.0-1.0</td> </tr> <tr> <td>ALKALINE PHOSPHATASE TOTAL</td> <td>113 IU/L</td> < td>45-117</td> </tr> <tr> <td>BILI CONJUGATED</td> <td>0.4 mg/dL</td> <td>0.0-0.3</td> </tr> <tr> <td>Microbiology</td> <td> </td> <td /> </tr> <tr> < colspan="10">LIPASE - 10/10/14 09:21</th> </tr> <tr> <td>LIPASE</td> <td>119 Units/L</td> <td>73- 393</td> </tr> <tr> < colspan="10">UR TEST - 10/10/14 09:22</th> </tr> <tr> <td>UR TEST</td > <td>NEGATIVE </td> <td>NEGATIVE</td> </tr> <tr > <td>Microbiology</td> <td> </td> <td /> </tr > <tr> < colspan="10">CHEM/HEM PROFILE-BEDSIDE - 10/10/14 09: 27</th> </tr> <tr> <td>POTASSIUM</td> <td>3.9 mmol/L</td> <td>3.5-5.3</td> </tr> <tr> <td> METHOD</td> <td>Bedside </td> <td /> </tr> <tr> <td>ANION GAP</td> <td>18 mmol/L</td> <td>10-20</td > </tr> <tr> <td>METHOD</td> <td>Bedside </td> <td /> </tr> <tr> <td>GLUCOSE</td> <td> 101 mg/dL</td> <td>70-99</td> </tr> <tr> <td> BLOOD UREA NITROGEN</td> <td>6 mg/dL</td> <td>7-20</td> </tr> <tr> <td>CREATININE</td> <td>0.6 mg/dL</td> <td>0.6-1.0</td> </tr> <tr> <td>HEMOGLOBIN</td> <td>15.0 gm/dL</td> <td>12.0-16.0</td> </tr> <tr > <td>HEMATOCRIT</td> <td>44.0 %</td> <td>37.0- 47.0</td> </tr> <tr> <td>SODIUM</td> <td>139 mmol/L</td> <td>135-148</td> </tr> <tr> <td> CHLORIDE</td> <td>106 mmol/L</td> <td>98-110</td> </tr > <tr> <td>CARBON DIOXIDE</td> <td>20 mmol/L</td> <td>21-32</td> </tr> <tr> <td>CALCIUM IONIZED</td> <td>4.5 mg/dL</td> <td>4.5-5.3</td> </tr> <tr> <td>Microbiology</td> <td> </td> <td /> </tr> <tr> <th colspan="10">TROPONIN I BEDSIDE - 11/05/14 00:49</th> </tr> <tr> <td>METHOD</td> <td>Bedside </td> <td /> </tr> <tr> <td>TROPONIN I</td> < td>< 0.04 ng/mL</td> <td>< 0.11</td> </tr> <tr> <td>Microbiology</td> <td> </td> <td /> </tr> <tr> <th colspan="10">CBC W/DIFF - 11/05/14 00:50</th> </ tr> <tr> <td>GRANULOCYTE #</td> <td>9.0 k/cumm</td> <td>2.0-9.0</td> </tr> <tr> <td>GRANULOCYTE %< /td> <td>80 %</td> <td>50-75</td> </tr> <tr > <td>LYMPHOCYTE #</td> <td>1.4 k/cumm</td> <td>1.0- 4.0</td> </tr> <tr> <td>LYMPHOCYTE %</td> < td>12 %</td> <td>20-30</td> </tr> <tr> <td> MEAN CELL HGB</td> <td>29.8 pg</td> <td>27.0-33.0</td> </tr> <tr> <td>MEAN CELL HGB CONCENTRATION</td> <td> 34.1 g/dL</td> <td>32.0-37.0</td> </tr> <tr> <td >MEAN CELL VOLUME</td> <td>87.5 fl</td> <td>80.0-100.0</td> </tr> <tr> <td>MONOCYTE #</td> <td>0.9 k/cumm</td > <td>0.1-1.0</td> </tr> <tr> <td>MONOCYTE % </td> <td>8 %</td> <td>4-6</td> </tr> <tr> <td>RED BLOOD CELL</td> <td>4.49 m/cumm</td> <td>4.00 -6.00</td> </tr> <tr> <td>RED CELL DISTRIBUTION WIDTH</td > <td>14.6 %</td> <td>11.0-15.6</td> </tr> < tr> <td>WHITE BLOOD CELL</td> <td>11.3 k/cumm</td> < td>5.0-10.0</td> </tr> <tr> <td>HEMOGLOBIN</td> <td>13.4 gm/dL</td> <td>12.0-16.0</td> </tr> <tr> <td>HEMATOCRIT</td> <td>39.3 %</td> <td>37.0-47.0</td> </tr> <tr> <td>PLATELET COUNT</td> <td>246 k/ cumm</td> <td>150-400</td> </tr> <tr> <td> Microbiology</td> <td> </td> <td /> </tr> <tr> < colspan="10">HEPATIC FUNCTION PANEL - 11/05/14 00:50</th> </ tr> <tr> <td>BILI UNCONJUGATED</td> <td>0.4 mg/dL</td> <td>0.0-0.7</td> </tr> <tr> <td>AST/SGOT</td> <td>10 Units/L</td> <td>10-37</td> </tr> <tr> <td>ALT/SGPT</td> <td>15 Units/L</td> <td>< 66</td > </tr> <tr> <td>TOTAL PROTEIN</td> <td>6.1 gm/ dL</td> <td>6.4-8.2</td> </tr> <tr> <td>ALBUMIN< /td> <td>3.2 gm/dL</td> <td>3.4-5.0</td> </tr> < tr> <td>BILI TOTAL</td> <td>0.5 mg/dL</td> <td>0.0- 1.0</td> </tr> <tr> <td>ALKALINE PHOSPHATASE TOTAL</td> <td>89 IU/L</td> <td>45-117</td> </tr> <tr> <td>BILI CONJUGATED</td> <td>0.1 mg/dL</td> <td>0.0-0.3< /td> </tr> <tr> <td>Microbiology</td> <td> </td > <td /> </tr> <tr> < colspan="10">LIPASE - 00:50</th> </tr> <tr> <td>LIPASE</td> <td >133 Units/L</td> <td>73-393</td> </tr> <tr> < th colspan="10">CHEM/HEM PROFILE-BEDSIDE - 11/05/14 00:52</th> </tr> <tr> <td>POTASSIUM</td> <td>3.3 mmol/L</td> <td> 3.5-5.3</td> </tr> <tr> <td>METHOD</td> <td> Bedside </td> <td /> </tr> <tr> <td>ANION GAP</ td> <td>19 mmol/L</td> <td>10-20</td> </tr> <tr > <td>METHOD</td> <td>Bedside </td> <td /> </ tr> <tr> <td>GLUCOSE</td> <td>120 mg/dL</td> < td>70-99</td> </tr> <tr> <td>BLOOD UREA NITROGEN</td> <td>10 mg/dL</td> <td>7-20</td> </tr> <tr> <td>CREATININE</td> <td>0.6 mg/dL</td> <td>0.6-1.0</td> </tr> <tr> <td>HEMOGLOBIN</td> <td>12.9 gm/dL</td > <td>12.0-16.0</td> </tr> <tr> <td>HEMATOCRIT</ td> <td>38.0 %</td> <td>37.0-47.0</td> </tr> <tr> <td>SODIUM</td> <td>143 mmol/L</td> <td>135- 148</td> </tr> <tr> <td>CHLORIDE</td> <td>107 mmol/L</td> <td>98-110</td> </tr> <tr> <td> CARBON DIOXIDE</td> <td>22 mmol/L</td> <td>21-32</td> < /tr> <tr> <td>CALCIUM IONIZED</td> <td>4.5 mg/dL</td> <td>4.5-5.3</td> </tr> <tr> <td>Microbiology</td > <td> </td> <td /> </tr> <tr> < colspan="10">URINALYSIS, ROUTINE - 11/05/14 02:22</th> </tr> <tr> <td>UA LEUKOCYTE ESTERASE DIPSTICK</td> <td>NEGATIVE </td> <td>NEGATIVE</td> </tr> <tr> <td>UA NITRITE DIPSTICK</td> <td>POSITIVE </td> <td>NEGATIVE</td> </tr > <tr> <td>UA PROTEIN DIPSTICK</td> <td>NEGATIVE </td> <td>NEGATIVE</td> </tr> <tr> <td>UA GLUCOSE DIPSTICK</td> <td>NEGATIVE </td> <td>NEGATIVE</td> </tr > <tr> <td>UA KETONE DIPSTICK</td> <td>NEGATIVE </td> <td>NEGATIVE</td> </tr> <tr> <td>UA UROBILINOGEN DIPSTICK</td> <td>NORMAL </td> <td>NORMAL</td> </tr> <tr> <td>UA BILIRUBIN DIPSTICK</td> <td> NEGATIVE </td> <td>NEGATIVE</td> </tr> <tr> <td> UA BLOOD DIPSTICK</td> <td>1+ </td> <td>NEGATIVE</td> < /tr> <tr> <td>UA SPECIFIC GRAVITY</td> <td>1.025 </td> <td>1.015-1.025</td> </tr> <tr> <td>UR PH</td> <td>5.5 </td> <td>5.0-7.0</td> </tr> <tr> <td>Microbiology</td> <td> </td> <td /> </tr> <tr> < colspan="10">UA MICROSCOPIC - 11/05/14 02:22</th> < /tr> <tr> <td>UA BACTERIA</td> <td>5+ </td> < td>NEGATIVE</td> </tr> <tr> <td>UA EPITHELIAL CELLS</td> <td>3+ epi/hpf</td> <td>0 - 1+</td> </tr> <tr> <td>UA MUCUS</td> <td>3+ </td> <td>NEG TO 1+</td> </tr> <tr> <td>UA RBC</td> <td>3-5 rbc/hpf</td> <td>0 - 3</td> </tr> <tr> <td>UA VOLUME FOR EXAM </td> <td>12.0 mL</td> <td>(12mL STD)</td> </tr> <tr> <td>UA WBC</td> <td>0 wbc/hpf</td> <td>0 - 5</ td> </tr> <tr> < colspan="10">UR TEST - 11/05 02:24</th> </tr> <tr> <td>UR TEST</td> <td>NEGATIVE </td> <td>NEGATIVE</td> </tr> <tr> <td>Microbiology</td> <td> </td> <td /> </tr> <tr> < colspan="10">URINALYSIS, ROUTINE - 11/13/15 14:37</th> </tr> <tr> <td>UA LEUKOCYTE ESTERASE DIPSTICK</td> <td>3+ </td> <td>NEGATIVE</td> </tr> <tr> < td>UA NITRITE DIPSTICK</td> <td>POSITIVE </td> <td>NEGATIVE</ td> </tr> <tr> <td>UA PROTEIN DIPSTICK</td> <td> NEGATIVE </td> <td>NEGATIVE</td> </tr> <tr> <td> UA GLUCOSE DIPSTICK</td> <td>NEGATIVE </td> <td>NEGATIVE</td> </tr> <tr> <td>UA KETONE DIPSTICK</td> <td> NEGATIVE </td> <td>NEGATIVE</td> </tr> <tr> <td> UA UROBILINOGEN DIPSTICK</td> <td>NORMAL </td> <td>NORMAL</td > </tr> <tr> <td>UA BILIRUBIN DIPSTICK</td> <td> NEGATIVE </td> <td>NEGATIVE</td> </tr> <tr> <td> UA BLOOD DIPSTICK</td> <td>TRACE </td> <td>NEGATIVE</td> </tr> <tr> <td>UA SPECIFIC GRAVITY</td> <td>1.025 </ td> <td>1.015-1.025</td> </tr> <tr> <td>UR PH</ td> <td>6.0 </td> <td>5.0-7.0</td> </tr> <tr> < colspan="10">UA MICROSCOPIC - 11/13/15 14:37</th> </tr> <tr> <td>UA BACTERIA</td> <td>5+ </td> <td> NEGATIVE</td> </tr> <tr> <td>UA EPITHELIAL CELLS</td> <td>2+ epi/hpf</td> <td>0 - 1+</td> </tr> <tr> <td>UA RBC</td> <td>3-5 rbc/hpf</td> <td>0 - 3</td> </tr> <tr> <td>UA VOLUME FOR EXAM</td> <td>12.0 mL </td> <td>(12mL STD)</td> </tr> <tr> <td>UA WBC< /td> <td>10-20 wbc/hpf</td> <td>0 - 5</td> </tr> <tr> <th colspan="10">HEPATIC FUNCTION PANEL - 11/21/15 19:25</th> </tr> <tr> <td>BILI UNCONJUGATED</td> <td>0.2 mg/ dL</td> <td>0.0-0.7</td> </tr> <tr> <td>AST/SGOT </td> <td>24 Units/L</td> <td>10-37</td> </tr> < tr> <td>ALT/SGPT</td> <td>23 Units/L</td> <td>< 66 </td> </tr> <tr> <td>TOTAL PROTEIN</td> <td>6.8 gm/dL</td> <td>6.4-8.2</td> </tr> <tr> <td> ALBUMIN</td> <td>2.7 gm/dL</td> <td>3.4-5.0</td> </tr> <tr> <td>BILI TOTAL</td> <td>0.3 mg/dL</td> < td>0.0-1.0</td> </tr> <tr> <td>ALKALINE PHOSPHATASE TOTAL </td> <td>81 IU/L</td> <td>45-117</td> </tr> <tr > <td>BILI CONJUGATED</td> <td>< 0.1 mg/dL</td> < td>0.0-0.3</td> </tr> <tr> <th colspan="10">LIPASE - 08/30 19:25</th> </tr> <tr> <td>LIPASE</td> <td> 121 Units/L</td> <td>73-393</td> </tr> <tr> <th colspan="10">CREATINE KINASE (CK/CPK) - 11/21/15 19:25</th> </tr> <tr> <td>CREATINE KINASE (CK/CPK)</td> <td>68 Units/L</td> <td>< 193</td> </tr> <tr> <th colspan="10">AG LEGIONELLA URINE - 11/21/15 20:44</th> </tr> <tr> <td> Microbiology</td> <td> </td> <td /> </tr> <tr> <th colspan="10">BLOOD CULTURE - 11/22/15 01:00</th> </tr> <tr> <td>Microbiology</td> <td> </td> <td /> </tr> <tr> <th colspan="10">BC REFLEX LACTIC ACID - 11/22/15 01:09</th> </tr> <tr> <td>LACTIC ACID</td> <td> 2.8 mmol/L</td> <td>0.5-2.0</td> </tr> <tr> <th colspan="10">BLOOD CULTURE - 11/22/15 01:09</th> </tr> <tr> <td>Microbiology</td> <td> </td> <td /> </tr> <tr> <th colspan="10">LACTIC ACID - 11/22/15 04:59</th> </tr > <tr> <td>LACTIC ACID</td> <td>1.5 mmol/L</td> <td>0.5-2.0</td> </tr> <tr> <th colspan="10">CD4/8 RATIO - 11/22/15 04:59</th> </tr> <tr> <td>CD 3/4 POSITIVE</td> <td>19 %</td> <td>34-68</td> </tr> <tr> <td>CD 3/4 ABSOLUTE</td> <td>58 #</td> <td >250-2400</td> </tr> <tr> <td>CD 3/8 POSITIVE</td> <td>48 %</td> <td>6-41</td> </tr> <tr> < td>CD 3/8 ABSOLUTE</td> <td>146 #</td> <td>150-1800</td> </tr> <tr> <td>CD 4/8 RATIO</td> <td>0.4 </td> <td>0.6-4.0</td> </tr> <tr> < colspan="10">CBC W/ DIFF - 11/22/15 08:31</th> </tr> <tr> <td>COMMENT</td> <td>REVIEWED </td> <td /> </tr> <tr> <td >GRANULOCYTE #</td> <td>3.4 k/cumm</td> <td>2.0-9.0</td> </tr> <tr> <td>GRANULOCYTE %</td> <td>91 %</ td> <td>50-75</td> </tr> <tr> <td>LYMPHOCYTE #</ td> <td>0.3 k/cumm</td> <td>1.0-4.0</td> </tr> < tr> <td>LYMPHOCYTE %</td> <td>8 %</td> <td>20 -30</td> </tr> <tr> <td>MEAN CELL HGB</td> <td> 28.3 pg</td> <td>27.0-33.0</td> </tr> <tr> <td> MEAN CELL HGB CONCENTRATION</td> <td>32.2 g/dL</td> <td>32.0- 37.0</td> </tr> <tr> <td>MEAN CELL VOLUME</td> < td>87.8 fl</td> <td>80.0-100.0</td> </tr> <tr> < td>MONOCYTE #</td> <td>0.0 k/cumm</td> <td>0.1-1.0</td> </tr> <tr> <td>MONOCYTE %</td> <td>1 %</td> <td>4-6</td> </tr> <tr> <td>RED BLOOD CELL</td> <td>4.03 m/cumm</td> <td>4.00-6.00</td> </tr> < tr> <td>RED CELL DISTRIBUTION WIDTH</td> <td>16.1 %</td> <td>11.0-15.6</td> </tr> <tr> <td>WHITE BLOOD CELL</td> <td>3.8 k/cumm</td> <td>5.0-10.0</td> </tr> <tr> <td>HEMOGLOBIN</td> <td>11.4 gm/dL</td> < td>12.0-16.0</td> </tr> <tr> <td>HEMATOCRIT</td> <td>35.4 %</td> <td>37.0-47.0</td> </tr> <tr> <td>PLATELET COUNT</td> <td>323 k/cumm</td> <td>150-400</ td> </tr> <tr> <th colspan="10">METABOLIC PANEL, [place] [facility] - 11/22/15 08:31</th> </tr> <tr> <td>POTASSIUM</ td> <td>3.5 mmol/L</td> <td>3.5-5.3</td> </tr> < tr> <td>EST GFR (MDRD)</td> <td>> 60 mL/min</td> < td>> 59</td> </tr> <tr> <td>ANION GAP</td> < td>7 mmol/L</td> <td>5-15</td> </tr> <tr> <td> EST CrCl (CG)</td> <td>> 60 mL/min</td> <td>> 59</td> </tr> <tr> <td>GLUCOSE</td> <td>230 mg/dL</td> <td>70-99</td> </tr> <tr> <td>CALCIUM</td> <td>8.3 mg/dL</td> <td>8.5-10.1</td> </tr> <tr> <td>BLOOD UREA NITROGEN</td> <td>12 mg/dL</td> <td>7-20</ td> </tr> <tr> <td>CREATININE</td> <td>0.6 mg/dL </td> <td>0.6-1.0</td> </tr> <tr> <td>SODIUM</td > <td>141 mmol/L</td> <td>135-148</td> </tr> <tr > <td>CHLORIDE</td> <td>108 mmol/L</td> <td>98-110</ td> </tr> <tr> <td>AST/SGOT</td> <td>13 Units/L< /td> <td>10-37</td> </tr> <tr> <td>ALT/SGPT</td > <td>21 Units/L</td> <td>< 66</td> </tr> <tr > <td>CARBON DIOXIDE</td> <td>26 mmol/L</td> <td>21- 32</td> </tr> <tr> <td>TOTAL PROTEIN</td> <td> 6.0 gm/dL</td> <td>6.4-8.2</td> </tr> <tr> <td> ALBUMIN</td> <td>2.4 gm/dL</td> <td>3.4-5.0</td> </tr> <tr> <td>BILI TOTAL</td> <td>< 0.1 mg/dL</td> <td>0.0-1.0</td> </tr> <tr> <td>ALKALINE PHOSPHATASE TOTAL</td> <td>69 IU/L</td> <td>45-117</td> </tr> <tr> <th colspan="10">PHOSPHORUS - 11/22/15 08:31</th> </tr> <tr> <td>PHOSPHORUS</td> <td>2.3 mg/dL</td > <td>2.5-4.9</td> </tr> <tr> <th colspan="10"> MAGNESIUM - 11/22/15 08:31</th> </tr> <tr> <td>MAGNESIUM< /td> <td>1.8 mg/dL</td> <td>1.8-2.4</td> </tr> < tr> <th colspan="10">LIPASE - 11/22/15 08:31</th> </tr> < tr> <td>LIPASE</td> <td>150 Units/L</td> <td>73-393</ td> </tr> <tr> <th colspan="10">VIRUS RESPIRATORY PROFILE - 11/22/15 08:33</th> </tr> <tr> <td>Microbiology </td> <td> </td> <td /> </tr> <tr> <th colspan="10">CBC - 11/23/15 04:28</th> </tr> <tr> <td> MEAN CELL HGB</td> <td>28.5 pg</td> <td>27.0-33.0</td> </tr> <tr> <td>MEAN CELL HGB CONCENTRATION</td> <td> 32.4 g/dL</td> <td>32.0-37.0</td> </tr> <tr> <td >MEAN CELL VOLUME</td> <td>88.1 fl</td> <td>80.0-100.0</td> </tr> <tr> <td>RED BLOOD CELL</td> <td>3.86 m/ cumm</td> <td>4.00-6.00</td> </tr> <tr> <td>RED CELL DISTRIBUTION WIDTH</td> <td>16.1 %</td> <td>11.0-15.6 </td> </tr> <tr> <td>WHITE BLOOD CELL</td> <td> 14.5 k/cumm</td> <td>5.0-10.0</td> </tr> <tr> < td>HEMOGLOBIN</td> <td>11.0 gm/dL</td> <td>12.0-16.0</td> </tr> <tr> <td>HEMATOCRIT</td> <td>34.0 %</td> <td>37.0-47.0</td> </tr> <tr> <td>PLATELET COUNT</td> <td>371 k/cumm</td> <td>150-400</td> </tr> <tr> <th colspan="10">RENAL FUNCTION PANEL - 11/23/15 04:28</th > </tr> <tr> <td>POTASSIUM</td> <td>4.3 mmol/L</ td> <td>3.5-5.3</td> </tr> <tr> <td>EST GFR ( MDRD)</td> <td>> 60 mL/min</td> <td>> 59</td> </ tr> <tr> <td>ANION GAP</td> <td>7 mmol/L</td> <td>5-15</td> </tr> <tr> <td>EST CrCl (CG)</td> <td>> 60 mL/min</td> <td>> 59</td> </tr> <tr> <td>GLUCOSE</td> <td>156 mg/dL</td> <td>70-99</td> </tr> <tr> <td>CALCIUM</td> <td>8.3 mg/dL</td> <td>8.5-10.1</td> </tr> <tr> <td>BLOOD UREA NITROGEN< /td> <td>10 mg/dL</td> <td>7-20</td> </tr> <tr> <td>CREATININE</td> <td>0.5 mg/dL</td> <td>0.6-1.0</ td> </tr> <tr> <td>SODIUM</td> <td>142 mmol/L</ td> <td>135-148</td> </tr> <tr> <td>CHLORIDE</td > <td>106 mmol/L</td> <td>98-110</td> </tr> <tr > <td>CARBON DIOXIDE</td> <td>29 mmol/L</td> <td>21- 32</td> </tr> <tr> <td>ALBUMIN</td> <td>2.2 gm/ dL</td> <td>3.4-5.0</td> </tr> <tr> <td> PHOSPHORUS</td> <td>2.6 mg/dL</td> <td>2.5-4.9</td> </ tr> <tr> <th colspan="10">MAGNESIUM - 11/23/15 04:28</th> </tr> <tr> <td>MAGNESIUM</td> <td>1.9 mg/dL</td> <td>1.8-2.4</td> </tr> <tr> <th colspan="10">RENAL FUNCTION PANEL - 11/24/15 04:39</th> </tr> <tr> <td> POTASSIUM</td> <td>3.7 mmol/L</td> <td>3.5-5.3</td> </ tr> <tr> <td>EST GFR (MDRD)</td> <td>> 60 mL/min</td > <td>> 59</td> </tr> <tr> <td>ANION GAP</td > <td>2 mmol/L</td> <td>5-15</td> </tr> <tr> <td>EST CrCl (CG)</td> <td>> 60 mL/min</td> <td>&gt ; 59</td> </tr> <tr> <td>GLUCOSE</td> <td>98 mg/ dL</td> <td>70-99</td> </tr> <tr> <td>CALCIUM</ td> <td>7.8 mg/dL</td> <td>8.5-10.1</td> </tr> < tr> <td>BLOOD UREA NITROGEN</td> <td>17 mg/dL</td> < td>7-20</td> </tr> <tr> <td>CREATININE</td> <td> 0.5 mg/dL</td> <td>0.6-1.0</td> </tr> <tr> <td> SODIUM</td> <td>139 mmol/L</td> <td>135-148</td> </tr> <tr> <td>CHLORIDE</td> <td>103 mmol/L</td> < td>98-110</td> </tr> <tr> <td>CARBON DIOXIDE</td> <td>34 mmol/L</td> <td>21-32</td> </tr> <tr> <td>ALBUMIN</td> <td>2.3 gm/dL</td> <td>3.4-5.0</td> </ tr> <tr> <td>PHOSPHORUS</td> <td>2.8 mg/dL</td> <td>2.5-4.9</td> </tr> <tr> <th colspan="10"> MAGNESIUM - 11/24/15 04:39</th> </tr> <tr> <td>MAGNESIUM< /td> <td>2.0 mg/dL</td> <td>1.8-2.4</td> </tr> < tr> <th colspan="10">CBC W/DIFF - 11/24/15 04:39</th> </tr> <tr> <td>GRANULOCYTE #</td> <td>7.6 k/cumm</td> < td>2.0-9.0</td> </tr> <tr> <td>GRANULOCYTE %</td> <td>79 %</td> <td>50-75</td> </tr> <tr> <td>LYMPHOCYTE #</td> <td>1.2 k/cumm</td> <td>1.0-4.0</td > </tr> <tr> <td>LYMPHOCYTE %</td> <td>13 &# 37;</td> <td>20-30</td> </tr> <tr> <td>MEAN CELL HGB</td> <td>28.4 pg</td> <td>27.0-33.0</td> </tr > <tr> <td>MEAN CELL HGB CONCENTRATION</td> <td>31.7 g/ dL</td> <td>32.0-37.0</td> </tr> <tr> <td>MEAN CELL VOLUME</td> <td>89.5 fl</td> <td>80.0-100.0</td> < /tr> <tr> <td>MONOCYTE #</td> <td>0.6 k/cumm</td> <td>0.1-1.0</td> </tr> <tr> <td>MONOCYTE %</td> <td>6 %</td> <td>4-6</td> </tr> <tr> <td>RED BLOOD CELL</td> <td>3.73 m/cumm</td> <td>4.00-6.00 </td> </tr> <tr> <td>RED CELL DISTRIBUTION WIDTH</td> <td>17.1 %</td> <td>11.0-15.6</td> </tr> <tr> <td>WHITE BLOOD CELL</td> <td>9.6 k/cumm</td> <td> 5.0-10.0</td> </tr> <tr> <td>HEMOGLOBIN</td> <td >10.6 gm/dL</td> <td>12.0-16.0</td> </tr> <tr> < td>HEMATOCRIT</td> <td>33.4 %</td> <td>37.0-47.0</td> </tr> <tr> <td>PLATELET COUNT</td> <td>407 k/cumm</ td> <td>150-400</td> </tr> <tr> <th colspan="10 ">OVA AND PARASITES - 11/24/15 14:00</th> </tr> <tr> <td> Microbiology</td> <td> </td> <td /> </tr> <tr> <th colspan="10">CBC With Platelet and Differential - 12/24/15 16:20</ th> </tr> <tr> <td>Absolute Basophils</td> <td> 0.01 10*3</td> <td>0.00-0.20</td> </tr> <tr> <td >Absolute Eosinophils</td> <td>0.03 10*3</td> <td>0.00-0.50</ td> </tr> <tr> <td>Absolute Lymphocytes</td> <td >0.51 10*3</td> <td>0.80-3.30</td> </tr> <tr> < td>Absolute Monocytes</td> <td>0.99 10*3</td> <td>0.30-1.00</ td> </tr> <tr> <td>Absolute Neutrophils</td> <td >7.31 10*3</td> <td>1.90-7.00</td> </tr> <tr> < td>Basophils</td> <td>0 %</td> <td>0-2</td> </tr> <tr> <td>Eosinophils</td> <td>0 %</td> <td >0-4</td> </tr> <tr> <td>HCT</td> <td>36.6 % </td> <td>37.0-47.0</td> </tr> <tr> <td>HGB</td > <td>12.2 g/dL</td> <td>12.0-16.0</td> </tr> < tr> <td>Immature Granulocytes</td> <td>0.2 %</td> <td>0.0-1.0</td> </tr> <tr> <td>Lymphocytes</td> <td>6 %</td> <td>20-46</td> </tr> <tr> < td>MCH</td> <td>29.1 pg</td> <td>27.0-32.0</td> </tr> <tr> <td>MCHC</td> <td>33.3 g/dL</td> <td>32.0 -36.0</td> </tr> <tr> <td>MCV</td> <td>87.4 fL</ td> <td>82.0-99.0</td> </tr> <tr> <td>Monocytes< /td> <td>11 %</td> <td>4-11</td> </tr> <tr> <td>MPV</td> <td>10.0 fL</td> <td>9.4-12.4</td> </tr> <tr> <td>Neutrophils</td> <td>83 %</td> <td>51-75</td> </tr> <tr> <td>Nucleated RBC Automated</td> <td>0.0 /100 WBC</td> <td /> </tr> <tr> <td>Platelet Count</td> <td>324 K/uL</td> <td >150-400</td> </tr> <tr> <td>RBC</td> <td>4.19 10*6/uL</td> <td>4.00-5.20</td> </tr> <tr> <td> RDW</td> <td>15.3 %</td> <td>11.5-14.5</td> </tr> <tr> <td>WBC</td> <td>8.9 K/uL</td> <td>4.8- 10.8</td> </tr> <tr> <th colspan="10">Comprehensive Metabolic Panel (CMP) - 12/24/15 16:20</th> </tr> <tr> < td>Albumin</td> <td>3.2 g/dL</td> <td>3.5-4.8</td> </tr > <tr> <td>Alkaline Phosphatase</td> <td>70 U/L</td> <td>26-104</td> </tr> <tr> <td>ALT (SGPT)</td> <td>18 U/L</td> <td>14-54</td> </tr> <tr> <td>Anion Gap</td> <td>11 NA</td> <td>3-20</td> </tr > <tr> <td>AST (SGOT)</td> <td>22 U/L</td> <td >15-41</td> </tr> <tr> <td>Bilirubin Total</td> <td>1.8 mg/dL</td> <td>0.2-1.2</td> </tr> <tr> < td>BUN</td> <td>6 mg/dL</td> <td>4-20</td> </tr> <tr> <td>Calcium</td> <td>8.7 mg/dL</td> <td>8.6- 10.0</td> </tr> <tr> <td>Chloride</td> <td>102 mEq/L</td> <td>99-109</td> </tr> <tr> <td>CO2</ td> <td>23 mEq/L</td> <td>22-32</td> </tr> <tr> <td>Creatinine</td> <td>0.62 mg/dL</td> <td>0.44- 1.03</td> </tr> <tr> <td>Globulin</td> <td>3.1 g /dL</td> <td>1.9-4.3</td> </tr> <tr> <td>Glucose </td> <td>104 mg/dL</td> <td>70-100</td> </tr> < tr> <td>Potassium</td> <td>2.6 mEq/L</td> <td>3.6-5.1 </td> </tr> <tr> <td>Protein</td> <td>6.3 g/dL</ td> <td>6.1-7.9</td> </tr> <tr> <td>Sodium</td> <td>136 mEq/L</td> <td>136-144</td> </tr> <tr> <th colspan="10">eGFR - 12/24/15 16:20</th> </tr> <tr> <td>eGFR</td> <td>>60 NA</td> <td>>60</td> </tr> <tr> <th colspan="10">Troponin - 12/24/15 16:20</th> </tr> <tr> <td>Troponin</td> <td><0.05 ng/mL< /td> <td><0.06</td> </tr> <tr> <th colspan= "10">Alcohol, Blood - 12/24/15 16:20</th> </tr> <tr> <td> Alcohol, Blood</td> <td>Not Detected mg/dL</td> <td /> </tr> <tr> <th colspan="10">Chem 8 NPT - 12/24/15 16:23</th> </tr> <tr> <td>Anion Gap</td> <td>15 NA</td> <td>3-20</td> </tr> <tr> <td>BUN Venous</td> <td>5 mg/dl</td> <td>4-20</td> </tr> <tr> <td >Calcium Ionized Venous</td> <td>1.10 mmol/L</td> <td>1.19- 1.41</td> </tr> <tr> <td>Creatinine Venous</td> <td>0.6 mg/dL</td> <td>0.4-1.0</td> </tr> <tr> < td>Glucose Venous</td> <td>99 mg/dL</td> <td>70-100</td> </tr> <tr> <td>Potassium, WB</td> <td>2.6 mEq/L</td > <td>3.6-5.1</td> </tr> <tr> <td>Sodium Venous< /td> <td>137 mEq/L</td> <td>136-144</td> </tr> < tr> <td>Total CO2 Venous</td> <td>22 mEq/L</td> <td> 25-29</td> </tr> <tr> <td>Venous CL</td> <td> 100 mEq/L</td> <td>99-109</td> </tr> <tr> <td> HCT Venous</td> <td>38.0 %</td> <td>37.0-47.0</td> </tr> <tr> <td>HGB Venous NPT</td> <td>12.9 g/dL</td> <td>12.0-16.0</td> </tr> <tr> < colspan="10"> CBC With Platelet No Differential - 12/25/15 03:49</th> </tr> <tr > <td>HCT</td> <td>33.9 %</td> <td>37.0-47.0</td > </tr> <tr> <td>HGB</td> <td>10.9 g/dL</td> <td>12.0-16.0</td> </tr> <tr> <td>MCH</td> <td>28.5 pg</td> <td>27.0-32.0</td> </tr> <tr> <td>MCHC</td> <td>32.2 g/dL</td> <td>32.0-36.0</td> </tr> <tr> <td>MCV</td> <td>88.7 fL</td> <td> 82.0-99.0</td> </tr> <tr> <td>MPV</td> <td>10.2 fL</td> <td>9.4-12.4</td> </tr> <tr> <td> Platelet Count</td> <td>285 K/uL</td> <td>150-400</td> </tr> <tr> <td>RBC</td> <td>3.82 10*6/uL</td> <td>4.00-5.20</td> </tr> <tr> <td>RDW</td> <td> 15.8 %</td> <td>11.5-14.5</td> </tr> <tr> < td>WBC</td> <td>8.3 K/uL</td> <td>4.8-10.8</td> </tr> <tr> <th colspan="10">Basic Metabolic Panel (BMP) - 12/25/15 03: 49</th> </tr> <tr> <td>Anion Gap</td> <td>7 NA</ td> <td>3-20</td> </tr> <tr> <td>BUN</td> <td>4 mg/dL</td> <td>4-20</td> </tr> <tr> < td>Calcium</td> <td>8.0 mg/dL</td> <td>8.6-10.0</td> </ tr> <tr> <td>Chloride</td> <td>104 mEq/L</td> <td>99-109</td> </tr> <tr> <td>CO2</td> <td>25 mEq/L</td> <td>22-32</td> </tr> <tr> <td> Creatinine</td> <td>0.48 mg/dL</td> <td>0.44-1.03</td> </tr> <tr> <td>Glucose</td> <td>87 mg/dL</td> <td>70-100</td> </tr> <tr> <td>Potassium</td> < td>2.7 mEq/L</td> <td>3.6-5.1</td> </tr> <tr> < td>Sodium</td> <td>136 mEq/L</td> <td>136-144</td> </tr > <tr> <th colspan="10">Lipid Panel - 12/25/15 03:49</th> </tr> <tr> <td>Cardiac Risk</td> <td>2.9 </td> <td>0.0-5.0</td> </tr> <tr> <td>Cholesterol</td> <td>86 mg/dL</td> <td>0-200</td> </tr> <tr> <td>HDL Cholesterol</td> <td>30 mg/dL</td> <td>>40</td> </tr> <tr> <td>LDL Cholesterol</td> <td>45 mg/ dL</td> <td>0-100</td> </tr> <tr> <td> Triglycerides</td> <td>54 mg/dL</td> <td>0-150</td> </ tr> <tr> <td>VLDL Cholesterol</td> <td>11 mg/dL</td> <td>0-30</td> </tr> <tr> <th colspan="10"> Magnesium - 12/25/15 03:49</th> </tr> <tr> <td>Magnesium< /td> <td>1.6 mg/dL</td> <td>1.8-2.5</td> </tr> < tr> <th colspan="10">eGFR - 12/25/15 03:49</th> </tr> <tr > <td>eGFR</td> <td>>60 NA</td> <td>>60</td> </tr> <tr> <th colspan="10">CBC With Platelet No Differential - 12/26/15 03:47</th> </tr> <tr> <td>HCT</td > <td>33.9 %</td> <td>37.0-47.0</td> </tr> < tr> <td>HGB</td> <td>10.6 g/dL</td> <td>12.0-16.0</td > </tr> <tr> <td>MCH</td> <td>28.0 pg</td> <td>27.0-32.0</td> </tr> <tr> <td>MCHC</td> <td>31.3 g/dL</td> <td>32.0-36.0</td> </tr> <tr> <td>MCV</td> <td>89.4 fL</td> <td>82.0-99.0</td> </ tr> <tr> <td>MPV</td> <td>10.0 fL</td> <td>9.4 -12.4</td> </tr> <tr> <td>Platelet Count</td> < td>309 K/uL</td> <td>150-400</td> </tr> <tr> <td >RBC</td> <td>3.79 10*6/uL</td> <td>4.00-5.20</td> </tr > <tr> <td>RDW</td> <td>15.7 %</td> <td> 11.5-14.5</td> </tr> <tr> <td>WBC</td> <td>8.0 K /uL</td> <td>4.8-10.8</td> </tr> <tr> <th colspan="10">Magnesium - 12/26/15 03:47</th> </tr> <tr> < td>Magnesium</td> <td>1.8 mg/dL</td> <td>1.8-2.5</td> < /tr> <tr> <th colspan="10">Basic Metabolic Panel (BMP) - 03:47</th> </tr> <tr> <td>Anion Gap</td> <td> 9 NA</td> <td>3-20</td> </tr> <tr> <td>BUN</td> <td>8 mg/dL</td> <td>4-20</td> </tr> <tr> <td>Calcium</td> <td>8.2 mg/dL</td> <td>8.6-10.0</td> </tr> <tr> <td>Chloride</td> <td>101 mEq/L</td> <td>99-109</td> </tr> <tr> <td>CO2</td> <td>25 mEq/L</td> <td>22-32</td> </tr> <tr> <td> Creatinine</td> <td>0.51 mg/dL</td> <td>0.44-1.03</td> </tr> <tr> <td>Glucose</td> <td>116 mg/dL</td> <td>70-100</td> </tr> <tr> <td>Potassium</td> <td>3.0 mEq/L</td> <td>3.6-5.1</td> </tr> <tr> < td>Sodium</td> <td>135 mEq/L</td> <td>136-144</td> </tr > <tr> <th colspan="10">eGFR - 12/26/15 03:47</th> </tr> <tr> <td>eGFR</td> <td>>60 NA</td> <td>&gt ;60</td> </tr> <tr> <th colspan="10">CBC With Platelet No Differential - 12/27/15 03:55</th> </tr> <tr> <td>HCT< /td> <td>35.4 %</td> <td>37.0-47.0</td> </tr> <tr> <td>HGB</td> <td>11.2 g/dL</td> <td>12.0-16.0 </td> </tr> <tr> <td>MCH</td> <td>28.4 pg</td> <td>27.0-32.0</td> </tr> <tr> <td>MCHC</td> <td>31.6 g/dL</td> <td>32.0-36.0</td> </tr> <tr> <td>MCV</td> <td>89.8 fL</td> <td>82.0-99.0</td> </tr> <tr> <td>MPV</td> <td>10.5 fL</td> < td>9.4-12.4</td> </tr> <tr> <td>Platelet Count</td> <td>311 K/uL</td> <td>150-400</td> </tr> <tr> <td>RBC</td> <td>3.94 10*6/uL</td> <td>4.00-5.20</td> </tr> <tr> <td>RDW</td> <td>15.5 %</td> <td>11.5-14.5</td> </tr> <tr> <td>WBC</td> < td>5.5 K/uL</td> <td>4.8-10.8</td> </tr> <tr> < th colspan="10">Magnesium - 12/27/15 03:55</th> </tr> <tr> <td>Magnesium</td> <td>1.5 mg/dL</td> <td>1.8-2.5</td> </tr> <tr> <th colspan="10">Basic Metabolic Panel (BMP) - 03:55</th> </tr> <tr> <td>Anion Gap</td> <td>7 NA</td> <td>3-20</td> </tr> <tr> <td>BUN</ td> <td>11 mg/dL</td> <td>4-20</td> </tr> <tr> <td>Calcium</td> <td>8.6 mg/dL</td> <td>8.6-10.0</td > </tr> <tr> <td>Chloride</td> <td>104 mEq/L</td > <td>99-109</td> </tr> <tr> <td>CO2</td> <td>25 mEq/L</td> <td>22-32</td> </tr> <tr> <td>Creatinine</td> <td>0.50 mg/dL</td> <td>0.44-1.03</td> </tr> <tr> <td>Glucose</td> <td>118 mg/dL</td> <td>70-100</td> </tr> <tr> <td>Potassium</td> <td>3.5 mEq/L</td> <td>3.6-5.1</td> </tr> <tr> <td>Sodium</td> <td>136 mEq/L</td> <td>136-144</td> </tr> <tr> <th colspan="10">eGFR - 12/27/15 03:55</th> </tr> <tr> <td>eGFR</td> <td>>60 NA</td> <td>>60</td> </tr> <tr> <th colspan="10">CBC With Platelet No Differential - 12/28/15 03:35</th> </tr> <tr> <td>HCT</td> <td>36.4 %</td> <td>37.0-47.0</td> < /tr> <tr> <td>HGB</td> <td>11.4 g/dL</td> <td> 12.0-16.0</td> </tr> <tr> <td>MCH</td> <td>28.1 pg</td> <td>27.0-32.0</td> </tr> <tr> <td>MCHC</ td> <td>31.3 g/dL</td> <td>32.0-36.0</td> </tr> <tr> <td>MCV</td> <td>89.7 fL</td> <td>82.0-99.0</td > </tr> <tr> <td>MPV</td> <td>10.0 fL</td> <td>9.4-12.4</td> </tr> <tr> <td>Platelet Count</td > <td>403 K/uL</td> <td>150-400</td> </tr> <tr> <td>RBC</td> <td>4.06 10*6/uL</td> <td>4.00-5.20</td > </tr> <tr> <td>RDW</td> <td>15.2 %</td> <td>11.5-14.5</td> </tr> <tr> <td>WBC</td> <td>5.0 K/uL</td> <td>4.8-10.8</td> </tr> <tr> <th colspan="10">Magnesium - 12/28/15 03:35</th> </tr> <tr> <td>Magnesium</td> <td>2.0 mg/dL</td> <td>1.8-2.5</td > </tr> <tr> <th colspan="10">Basic Metabolic Panel (BMP ) - 12/28/15 03:35</th> </tr> <tr> <td>Anion Gap</td> <td>9 NA</td> <td>3-20</td> </tr> <tr> < td>BUN</td> <td>15 mg/dL</td> <td>4-20</td> </tr> <tr> <td>Calcium</td> <td>9.1 mg/dL</td> <td>8.6- 10.0</td> </tr> <tr> <td>Chloride</td> <td>101 mEq/L</td> <td>99-109</td> </tr> <tr> <td>CO2</ td> <td>29 mEq/L</td> <td>22-32</td> </tr> <tr> <td>Creatinine</td> <td>0.51 mg/dL</td> <td>0.44- 1.03</td> </tr> <tr> <td>Glucose</td> <td>104 mg /dL</td> <td>70-100</td> </tr> <tr> <td> Potassium</td> <td>3.6 mEq/L</td> <td>3.6-5.1</td> </tr > <tr> <td>Sodium</td> <td>139 mEq/L</td> <td> 136-144</td> </tr> <tr> <th colspan="10">eGFR - 12/28/15 03:35</th> </tr> <tr> <td>eGFR</td> <td>>60 NA</td> <td>>60</td> </tr> <tr> <th colspan= "10">CBC With Platelet No Differential - 12/29/15 06:03</th> </tr> <tr> <td>HCT</td> <td>37.8 %</td> <td>37.0-47.0 </td> </tr> <tr> <td>HGB</td> <td>12.1 g/dL</td > <td>12.0-16.0</td> </tr> <tr> <td>MCH</td> <td>28.3 pg</td> <td>27.0-32.0</td> </tr> <tr> <td>MCHC</td> <td>32.0 g/dL</td> <td>32.0-36.0</td> </tr> <tr> <td>MCV</td> <td>88.3 fL</td> <td>82.0-99.0</td> </tr> <tr> <td>MPV</td> <td> 9.8 fL</td> <td>9.4-12.4</td> </tr> <tr> <td> Platelet Count</td> <td>390 K/uL</td> <td>150-400</td> </tr> <tr> <td>RBC</td> <td>4.28 10*6/uL</td> <td>4.00-5.20</td> </tr> <tr> <td>RDW</td> <td> 15.2 %</td> <td>11.5-14.5</td> </tr> <tr> < td>WBC</td> <td>4.2 K/uL</td> <td>4.8-10.8</td> </tr> <tr> <th colspan="10">Magnesium - 12/29/15 06:03</th> </ tr> <tr> <td>Magnesium</td> <td>1.8 mg/dL</td> <td>1.8-2.5</td> </tr> <tr> <th colspan="10">Basic Metabolic Panel (BMP) - 12/29/15 06:03</th> </tr> <tr> < td>Anion Gap</td> <td>7 NA</td> <td>3-20</td> </tr> <tr> <td>BUN</td> <td>11 mg/dL</td> <td>4-20</td > </tr> <tr> <td>Calcium</td> <td>9.2 mg/dL</td > <td>8.6-10.0</td> </tr> <tr> <td>Chloride</td > <td>100 mEq/L</td> <td>99-109</td> </tr> <tr> <td>CO2</td> <td>31 mEq/L</td> <td>22-32</td> </tr> <tr> <td>Creatinine</td> <td>0.40 mg/dL</td> <td>0.44-1.03</td> </tr> <tr> <td>Glucose</td> <td>91 mg/dL</td> <td>70-100</td> </tr> <tr> <td>Potassium</td> <td>4.2 mEq/L</td> <td>3.6-5.1</td> </tr> <tr> <td>Sodium</td> <td>138 mEq/L</td> <td>136-144</td> </tr> <tr> < colspan="10"> eGFR - 12/29/15 06:03</th> </tr> <tr> <td>eGFR</td> <td>>60 NA</td> <td>>60</td> </tr> <tr> < colspan="10">Urine drug screening test - 03/10/16 12:00</th> </tr > <tr> <td>Urine phencyclidine detection by screening method</td > <td>NEGATIVE </td> <td>NEGATIVE</td> </tr> <tr > <td>Urine benzodiazepines detection by screening method</td> <td>NEGATIVE </td> <td>NEGATIVE</td> </tr> <tr> <td>Urine cocaine detection</td> <td>NEGATIVE </td> <td> NEGATIVE</td> </tr> <tr> <td>Urine amphetamines detection by screening method</td> <td>NEGATIVE </td> <td> NEGATIVE</td> </tr> <tr> <td>Urine methamphetamine detection by screening method</td> <td>NEGATIVE </td> <td> NEGATIVE</td> </tr> <tr> <td>Urine cannabinoids detection by screening method</td> <td>NEGATIVE </td> <td> NEGATIVE</td> </tr> <tr> <td>Urine opiates detection by screening method</td> <td>NEGATIVE </td> <td>NEGATIVE</td> </tr> <tr> <td>Urine barbiturates detection</td> < td>NEGATIVE </td> <td>NEGATIVE</td> </tr> <tr> < td>Screening urine tricyclic antidepressants detection</td> <td> POSITIVE </td> <td>NEGATIVE</td> </tr> <tr> <td> Urine methadone detection by screening method</td> <td>NEGATIVE </td> <td>NEGATIVE</td> </tr> <tr> <td>Urine oxycodone detection</td> <td>NEGATIVE </td> <td>NEGATIVE</td> </tr> <tr> <td>Urine propoxyphene detection</td> <td>NEGATIVE </td> <td>NEGATIVE</td> </tr> <tr> <th colspan="10">Complete blood count (CBC) with automated white blood cell (WBC) differential - 03/10/16 13:10</th> </tr> <tr> <td> Blood leukocytes automated count (number/volume)</td> <td>4.3 10*3/uL</ td> <td>4.3-11.0</td> </tr> <tr> <td>Blood erythrocytes automated count (number/volume)</td> <td>4.53 10*6/uL</td > <td>4.35-5.85</td> </tr> <tr> <td>Venous blood hemoglobin measurement (mass/volume)</td> <td>11.7 g/dL</td> <td>11.5-16.0</td> </tr> <tr> <td>Blood hematocrit (volume fraction)</td> <td>36 %</td> <td>35-52</td> </tr> <tr> <td>Automated erythrocyte mean corpuscular volume</ td> <td>80 [foz_us]</td> <td>80-99</td> </tr> < tr> <td>Automated erythrocyte mean corpuscular hemoglobin (mass per erythrocyte)</td> <td>26 pg</td> <td>25-34</td> </tr> <tr> <td>Automated erythrocyte mean corpuscular hemoglobin concentration measurement (mass/volume)</td> <td>32 g/dL</td> <td>32-36</td> </tr> <tr> <td>Automated erythrocyte distribution width ratio</td> <td>15.7 %</td> <td>10.0- 14.5</td> </tr> <tr> <td>Automated blood platelet count ( count/volume)</td> <td>247 10*3/uL</td> <td>130-400</td> </tr> <tr> <td>Automated blood platelet mean volume measurement</td> <td>10.6 [foz_us]</td> <td>7.4-10.4</td> </tr> <tr> <td>Automated blood neutrophils/100 leukocytes</ td> <td>66 %</td> <td>42-75</td> </tr> <tr> <td>Automated blood lymphocytes/100 leukocytes</td> <td>20 &# 37;</td> <td>12-44</td> </tr> <tr> <td>Blood monocytes/100 leukocytes</td> <td>12 %</td> <td>0-12</td> </tr> <tr> <td>Automated blood eosinophils/100 leukocytes</td> <td>2 %</td> <td>0-10</td> </tr> <tr> <td>Automated blood basophils/100 leukocytes</td> < td>1 %</td> <td>0-10</td> </tr> <tr> <td> Blood neutrophils automated count (number/volume)</td> <td>2.8 10*3</td > <td>1.8-7.8</td> </tr> <tr> <td>Blood lymphocytes automated count (number/volume)</td> <td>0.9 10*3</td> <td>1.0-4.0</td> </tr> <tr> <td>Blood monocytes automated count (number/volume)</td> <td>0.5 10*3</td> <td>0.0 -1.0</td> </tr> <tr> <td>Automated eosinophil count</td> <td>0.1 10*3/uL</td> <td>0.0-0.3</td> </tr> <tr > <td>Automated blood basophil count (count/volume)</td> <td> 0.0 10*3/uL</td> <td>0.0-0.1</td> </tr> <tr> < colspan="10">PT panel in platelet poor plasma by coagulation assay - 13:10</th> </tr> <tr> <td>Prothrombin time (PT) in platelet poor plasma by coagulation assay</td> <td>12.8 s</td> <td>12.2-14.7</td> </tr> <tr> <td>INR in platelet poor plasma or blood by coagulation assay</td> <td>1.0 </td> <td> 0.8-1.4</td> </tr> <tr> < colspan="10">Comprehensive metabolic panel - 03/10/16 13:10</th> </tr> <tr> <td> Serum or plasma sodium measurement (moles/volume)</td> <td>135 mmol/L</ td> <td>135-145</td> </tr> <tr> <td>Serum or plasma potassium measurement (moles/volume)</td> <td>4.1 mmol/L</td> <td>3.6-5.0</td> </tr> <tr> <td>Serum or plasma chloride measurement (moles/volume)</td> <td>104 mmol/L</td> < td>98-107</td> </tr> <tr> <td>Carbon dioxide</td> <td>23 mmol/L</td> <td>21-32</td> </tr> <tr> <td>Serum or plasma anion gap determination (moles/volume)</td> <td>8 mmol/L</td> <td>5-14</td> </tr> <tr> <td>Serum or plasma urea nitrogen measurement (mass/volume)</td> <td>9 mg/dL</td > <td>7-18</td> </tr> <tr> <td>Serum or plasma creatinine measurement (mass/volume)</td> <td>0.63 mg/dL</td> <td>0.60-1.30</td> </tr> <tr> <td>Serum or plasma urea nitrogen/creatinine mass ratio</td> <td>14 </td> <td>NRG</td> </tr> <tr> <td>Serum or plasma creatinine measurement with calculation of estimated glomerular filtration rate</td> <td>> </td> <td>NRG</td> </tr> <tr> <td>Serum or plasma glucose measurement (mass/volume)</td> <td>94 mg/dL</td> <td>70-105</td> </tr> <tr> <td>Serum or plasma calcium measurement (mass/volume)</td> <td>8.5 mg/dL</td> <td> 8.5-10.1</td> </tr> <tr> <td>Serum or plasma total bilirubin measurement (mass/volume)</td> <td>1.2 mg/dL</td> < td>0.1-1.0</td> </tr> <tr> <td>Serum or plasma alkaline phosphatase measurement (enzymatic activity/volume)</td> <td>99 U/L</td > <td>40-136</td> </tr> <tr> <td>Serum or plasma aspartate aminotransferase measurement (enzymatic activity/volume)</td> <td>23 U/L</td> <td>5-34</td> </tr> <tr> <td>Serum or plasma alanine aminotransferase measurement (enzymatic activity/ volume)</td> <td>17 U/L</td> <td>0-55</td> </tr> <tr> <td>Serum or plasma protein measurement (mass/volume)</td> <td>6.5 g/dL</td> <td>6.4-8.2</td> </tr> <tr> <td>Serum or plasma albumin measurement (mass/volume)</td> <td>3.7 g/dL</td> <td>3.2-4.5</td> </tr> <tr> < colspan="10">Serum or plasma troponin i.cardiac measurement (mass/volume) - 13:10</th> </tr> <tr> <td>Serum or plasma troponin i.cardiac measurement (mass/volume)</td> <td>< ng/mL</td> < td><0.30</td> </tr> <tr> <th colspan="10">Complete urinalysis with reflex to culture - 03/10/16 18:30</th> </tr> <tr > <td>Urine color determination</td> <td>YELLOW </td> <td>NRG</td> </tr> <tr> <td>Urine clarity determination </td> <td>CLEAR </td> <td>NRG</td> </tr> <tr> <td>Urine pH measurement by test strip</td> <td>5 </td> <td>5-9</td> </tr> <tr> <td>Specific gravity of urine by test strip</td> <td>1.030 </td> <td>1.016-1.022</td> </tr> <tr> <td>Urine protein assay by test strip, semi- quantitative</td> <td>2+ </td> <td>NEGATIVE</td> </tr> <tr> <td>Urine glucose detection by automated test strip</td> <td>NEGATIVE </td> <td>NEGATIVE</td> </tr> <tr> <td>Erythrocytes detection in urine sediment by light microscopy</td> <td>5+ </td> <td>NEGATIVE</td> </tr> <tr> <td>Urine ketones detection by automated test strip</td> <td> NEGATIVE </td> <td>NEGATIVE</td> </tr> <tr> <td> Urine nitrite detection by test strip</td> <td>NEGATIVE </td> <td>NEGATIVE</td> </tr> <tr> <td>Urine total bilirubin detection by test strip</td> <td>NEGATIVE </td> <td>NEGATIVE</ td> </tr> <tr> <td>Urine urobilinogen measurement by automated test strip (mass/volume)</td> <td>1 mg/dL</td> <td> NORMAL</td> </tr> <tr> <td>Urine leukocyte esterase detection by dipstick</td> <td>1+ </td> <td>NEGATIVE</td> </tr> <tr> <td>Automated urine sediment erythrocyte count by microscopy (number/high power field)</td> <td>TNTC </td> < td>NRG</td> </tr> <tr> <td>Automated urine sediment leukocyte count by microscopy (number/high power field)</td> <td> [HPF] </td> <td>NRG</td> </tr> <tr> <td>Bacteria detection in urine sediment by light microscopy</td> <td>TRACE </td> <td>NRG</td> </tr> <tr> <td>Squamous epithelial cells detection in urine sediment by light microscopy</td> <td>5-10 </ td> <td>NRG</td> </tr> <tr> <td>Crystals detection in urine sediment by light microscopy</td> <td>NONE </td> <td>NRG</td> </tr> <tr> <td>Casts detection in urine sediment by light microscopy</td> <td>NONE </td> <td>NRG </td> </tr> <tr> <td>Mucus detection in urine sediment by light microscopy</td> <td>SMALL </td> <td>NRG</td> < /tr> <tr> <td>Complete urinalysis with reflex to culture</td> <td>NO </td> <td>NRG</td> </tr> <tr> < th colspan="10">Complete blood count (CBC) with automated white blood cell (WBC ) differential - 03/17/16 15:05</th> </tr> <tr> <td> Blood leukocytes automated count (number/volume)</td> <td>7.4 10*3/uL</ td> <td>4.3-11.0</td> </tr> <tr> <td>Blood erythrocytes automated count (number/volume)</td> <td>4.93 10*6/uL</td > <td>4.35-5.85</td> </tr> <tr> <td>Venous blood hemoglobin measurement (mass/volume)</td> <td>12.7 g/dL</td> <td>11.5-16.0</td> </tr> <tr> <td>Blood hematocrit (volume fraction)</td> <td>39 %</td> <td>35-52</td> </tr> <tr> <td>Automated erythrocyte mean corpuscular volume</ td> <td>79 [foz_us]</td> <td>80-99</td> </tr> < tr> <td>Automated erythrocyte mean corpuscular hemoglobin (mass per erythrocyte)</td> <td>26 pg</td> <td>25-34</td> </tr> <tr> <td>Automated erythrocyte mean corpuscular hemoglobin concentration measurement (mass/volume)</td> <td>33 g/dL</td> <td>32-36</td> </tr> <tr> <td>Automated erythrocyte distribution width ratio</td> <td>15.8 %</td> <td>10.0- 14.5</td> </tr> <tr> <td>Automated blood platelet count ( count/volume)</td> <td>341 10*3/uL</td> <td>130-400</td> </tr> <tr> <td>Automated blood platelet mean volume measurement</td> <td>10.4 [foz_us]</td> <td>7.4-10.4</td> </tr> <tr> <td>Automated blood neutrophils/100 leukocytes</ td> <td>54 %</td> <td>42-75</td> </tr> <tr> <td>Automated blood lymphocytes/100 leukocytes</td> <td>30 &# 37;</td> <td>12-44</td> </tr> <tr> <td>Blood monocytes/100 leukocytes</td> <td>13 %</td> <td>0-12</td> </tr> <tr> <td>Automated blood eosinophils/100 leukocytes</td> <td>2 %</td> <td>0-10</td> </tr> <tr> <td>Automated blood basophils/100 leukocytes</td> < td>1 %</td> <td>0-10</td> </tr> <tr> <td> Blood neutrophils automated count (number/volume)</td> <td>4.0 10*3</td > <td>1.8-7.8</td> </tr> <tr> <td>Blood lymphocytes automated count (number/volume)</td> <td>2.2 10*3</td> <td>1.0-4.0</td> </tr> <tr> <td>Blood monocytes automated count (number/volume)</td> <td>1.0 10*3</td> <td>0.0 -1.0</td> </tr> <tr> <td>Automated eosinophil count</td> <td>0.2 10*3/uL</td> <td>0.0-0.3</td> </tr> <tr > <td>Automated blood basophil count (count/volume)</td> <td> 0.0 10*3/uL</td> <td>0.0-0.1</td> </tr> <tr> < colspan="10">Complete urinalysis with reflex to culture - 03/17/16 15:05</th > </tr> <tr> <td>Urine color determination</td> <td>YELLOW </td> <td>NRG</td> </tr> <tr> <td> Urine clarity determination</td> <td>CLEAR </td> <td>NRG</td> </tr> <tr> <td>Urine pH measurement by test strip</td> <td>6 </td> <td>5-9</td> </tr> <tr> <td >Specific gravity of urine by test strip</td> <td>1.025 </td> <td>1.016-1.022</td> </tr> <tr> <td>Urine protein assay by test strip, semi-quantitative</td> <td>NEGATIVE </td> <td> NEGATIVE</td> </tr> <tr> <td>Urine glucose detection by automated test strip</td> <td>NEGATIVE </td> <td>NEGATIVE</td > </tr> <tr> <td>Erythrocytes detection in urine sediment by light microscopy</td> <td>NEGATIVE </td> <td> NEGATIVE</td> </tr> <tr> <td>Urine ketones detection by automated test strip</td> <td>NEGATIVE </td> <td>NEGATIVE</td > </tr> <tr> <td>Urine nitrite detection by test strip</ td> <td>NEGATIVE </td> <td>NEGATIVE</td> </tr> < tr> <td>Urine total bilirubin detection by test strip</td> <td >NEGATIVE </td> <td>NEGATIVE</td> </tr> <tr> <td >Urine urobilinogen measurement by automated test strip (mass/volume)</td> <td>NORMAL </td> <td>NORMAL</td> </tr> <tr> <td>Urine leukocyte esterase detection by dipstick</td> <td>1+ </td> <td>NEGATIVE</td> </tr> <tr> <td>Automated urine sediment erythrocyte count by microscopy (number/high power field)</td> <td>NONE </td> <td>NRG</td> </tr> <tr> < td>Automated urine sediment leukocyte count by microscopy (number/high power field)</td> <td>NONE </td> <td>NRG</td> </tr> < tr> <td>Bacteria detection in urine sediment by light microscopy</td> <td>NEGATIVE </td> <td>NRG</td> </tr> <tr> <td>Squamous epithelial cells detection in urine sediment by light microscopy</td> <td>25-50 </td> <td>NRG</td> </tr> <tr> <td>Crystals detection in urine sediment by light microscopy</ td> <td>NONE </td> <td>NRG</td> </tr> <tr> <td>Casts detection in urine sediment by light microscopy</td> <td >NONE </td> <td>NRG</td> </tr> <tr> <td>Mucus detection in urine sediment by light microscopy</td> <td>NEGATIVE </td > <td>NRG</td> </tr> <tr> <td>Complete urinalysis with reflex to culture</td> <td>NO </td> <td>NRG</ td> </tr> <tr> < colspan="10">Urine drug screening test - 03/17/16 15:05</th> </tr> <tr> <td>Urine phencyclidine detection by screening method</td> <td>NEGATIVE </td> <td>NEGATIVE</td> </tr> <tr> <td>Urine benzodiazepines detection by screening method</td> <td>NEGATIVE </td> <td>NEGATIVE</td> </tr> <tr> <td>Urine cocaine detection</td> <td>NEGATIVE </td> <td>NEGATIVE</td> </ tr> <tr> <td>Urine amphetamines detection by screening method</ td> <td>NEGATIVE </td> <td>NEGATIVE</td> </tr> < tr> <td>Urine methamphetamine detection by screening method</td> <td>NEGATIVE </td> <td>NEGATIVE</td> </tr> <tr> <td>Urine cannabinoids detection by screening method</td> <td> NEGATIVE </td> <td>NEGATIVE</td> </tr> <tr> <td> Urine opiates detection by screening method</td> <td>NEGATIVE </td> <td>NEGATIVE</td> </tr> <tr> <td>Urine barbiturates detection</td> <td>NEGATIVE </td> <td>NEGATIVE</ td> </tr> <tr> <td>Screening urine tricyclic antidepressants detection</td> <td>POSITIVE </td> <td>NEGATIVE </td> </tr> <tr> <td>Urine methadone detection by screening method</td> <td>NEGATIVE </td> <td>NEGATIVE</td> </tr> <tr> <td>Urine oxycodone detection</td> <td> NEGATIVE </td> <td>NEGATIVE</td> </tr> <tr> <td> Urine propoxyphene detection</td> <td>NEGATIVE </td> <td> NEGATIVE</td> </tr> <tr> < colspan="10">Comprehensive metabolic panel - 03/17/16 15:05</th> </tr> <tr> <td> Serum or plasma sodium measurement (moles/volume)</td> <td>140 mmol/L</ td> <td>135-145</td> </tr> <tr> <td>Serum or plasma potassium measurement (moles/volume)</td> <td>3.8 mmol/L</td> <td>3.6-5.0</td> </tr> <tr> <td>Serum or plasma chloride measurement (moles/volume)</td> <td>107 mmol/L</td> < td>98-107</td> </tr> <tr> <td>Carbon dioxide</td> <td>20 mmol/L</td> <td>21-32</td> </tr> <tr> <td>Serum or plasma anion gap determination (moles/volume)</td> <td>13 mmol/L</td> <td>5-14</td> </tr> <tr> <td>Serum or plasma urea nitrogen measurement (mass/volume)</td> <td>15 mg/dL</td > <td>7-18</td> </tr> <tr> <td>Serum or plasma creatinine measurement (mass/volume)</td> <td>0.74 mg/dL</td> <td>0.60-1.30</td> </tr> <tr> <td>Serum or plasma urea nitrogen/creatinine mass ratio</td> <td>20 </td> <td>NRG</td> </tr> <tr> <td>Serum or plasma creatinine measurement with calculation of estimated glomerular filtration rate</td> <td>> </td> <td>NRG</td> </tr> <tr> <td>Serum or plasma glucose measurement (mass/volume)</td> <td>53 mg/dL</td> <td>70-105</td> </tr> <tr> <td>Serum or plasma calcium measurement (mass/volume)</td> <td>8.8 mg/dL</td> <td> 8.5-10.1</td> </tr> <tr> <td>Serum or plasma total bilirubin measurement (mass/volume)</td> <td>1.1 mg/dL</td> < td>0.1-1.0</td> </tr> <tr> <td>Serum or plasma alkaline phosphatase measurement (enzymatic activity/volume)</td> <td>104 U/L</ td> <td>40-136</td> </tr> <tr> <td>Serum or plasma aspartate aminotransferase measurement (enzymatic activity/volume)</td> <td>18 U/L</td> <td>5-34</td> </tr> <tr> <td>Serum or plasma alanine aminotransferase measurement (enzymatic activity/ volume)</td> <td>18 U/L</td> <td>0-55</td> </tr> <tr> <td>Serum or plasma protein measurement (mass/volume)</td> <td>6.9 g/dL</td> <td>6.4-8.2</td> </tr> <tr> <td>Serum or plasma albumin measurement (mass/volume)</td> <td>4.1 g/dL</td> <td>3.2-4.5</td> </tr> <tr> <th colspan="10">Serum or plasma ethanol measurement (mass/volume) - 03/17/16 15:05< /th> </tr> <tr> <td>Serum or plasma ethanol measurement ( mass/volume)</td> <td>< mg/dL</td> <td><10</td> < /tr> <tr> <th colspan="10">Comprehensive Metabolic Panel - 07/22 21:20</th> </tr> <tr> <td>Albumin</td> <td> 3.9 g/dL</td> <td>3.6-5.1</td> </tr> <tr> <td> ALP</td> <td>99 U/L</td> <td>35-130</td> </tr> < tr> <td>ALT</td> <td>11 U/L</td> <td>6-45</td> </tr> <tr> <td>Anion Gap</td> <td>14 </td> < td>6-14</td> </tr> <tr> <td>AST</td> <td>14 U/L< /td> <td>2-40</td> </tr> <tr> <td>BUN</td> <td>14 mg/dL</td> <td>5-25</td> </tr> <tr> <td>Calcium</td> <td>9.5 mg/dL</td> <td>8.3-10.4</td> < /tr> <tr> <td>Chloride</td> <td>107 mmol/L</td> <td>95-114</td> </tr> <tr> <td>CO2</td> <td> 24 mEq/L</td> <td>22-33</td> </tr> <tr> <td> Creat</td> <td>0.69 mg/dL</td> <td>0.50-1.50</td> </tr > <tr> <td>eGFR</td> <td>91 mL/min/1.73m2</td> <td>>59</td> </tr> <tr> <td>Globulin</td> < td>3.2 g/dL</td> <td>2.3-3.5</td> </tr> <tr> <td >Glucose</td> <td>90 mg/dL</td> <td>70-110</td> </tr> <tr> <td>Osmo</td> <td>291 </td> <td>280-295</ td> </tr> <tr> <td>Potassium</td> <td>4.2 mmol/L </td> <td>3.5-5.3</td> </tr> <tr> <td>Sodium</td > <td>141 mmol/L</td> <td>134-148</td> </tr> <tr > <td>TBil</td> <td>0.9 mg/dL</td> <td>0.2-1.2</td> </tr> <tr> <td>TP</td> <td>7.1 g/dL</td> <td>6.0-8.3</td> </tr> <tr> <th colspan="10">Lipase - 07/22/16 21:20</th> </tr> <tr> <td>Lipase</td> < td>31 U/L</td> <td>7-59</td> </tr> <tr> <th colspan="10">Complete blood count (CBC) with automated white blood cell (WBC) differential - 10/18/16 14:42</th> </tr> <tr> <td>Blood leukocytes automated count (number/volume)</td> <td>8.1 10*3/uL</td> <td>4.3-11.0</td> </tr> <tr> <td>Blood erythrocytes automated count (number/volume)</td> <td>4.87 10*6/uL</td > <td>4.35-5.85</td> </tr> <tr> <td>Venous blood hemoglobin measurement (mass/volume)</td> <td>11.7 g/dL</td> <td>11.5-16.0</td> </tr> <tr> <td>Blood hematocrit (volume fraction)</td> <td>38 %</td> <td>35-52</td> </tr> <tr> <td>Automated erythrocyte mean corpuscular volume</ td> <td>77 [foz_us]</td> <td>80-99</td> </tr> < tr> <td>Automated erythrocyte mean corpuscular hemoglobin (mass per erythrocyte)</td> <td>24 pg</td> <td>25-34</td> </tr> <tr> <td>Automated erythrocyte mean corpuscular hemoglobin concentration measurement (mass/volume)</td> <td>31 g/dL</td> <td>32-36</td> </tr> <tr> <td>Automated erythrocyte distribution width ratio</td> <td>17.9 %</td> <td>10.0- 14.5</td> </tr> <tr> <td>Automated blood platelet count ( count/volume)</td> <td>271 10*3/uL</td> <td>130-400</td> </tr> <tr> <td>Automated blood platelet mean volume measurement</td> <td>11.4 [foz_us]</td> <td>7.4-10.4</td> </tr> <tr> <td>Automated blood neutrophils/100 leukocytes</ td> <td>88 %</td> <td>42-75</td> </tr> <tr> <td>Automated blood lymphocytes/100 leukocytes</td> <td>5 &# 37;</td> <td>12-44</td> </tr> <tr> <td>Blood monocytes/100 leukocytes</td> <td>6 %</td> <td>0-12</td> </tr> <tr> <td>Automated blood eosinophils/100 leukocytes </td> <td>1 %</td> <td>0-10</td> </tr> <tr> <td>Automated blood basophils/100 leukocytes</td> <td>0 % </td> <td>0-10</td> </tr> <tr> <td>Blood neutrophils automated count (number/volume)</td> <td>7.1 10*3</td> <td>1.8-7.8</td> </tr> <tr> <td>Blood lymphocytes automated count (number/volume)</td> <td>0.4 10*3</td> <td>1.0 -4.0</td> </tr> <tr> <td>Blood monocytes automated count (number/volume)</td> <td>0.5 10*3</td> <td>0.0-1.0</td> </tr> <tr> <td>Automated eosinophil count</td> <td> 0.1 10*3/uL</td> <td>0.0-0.3</td> </tr> <tr> <td >Automated blood basophil count (count/volume)</td> <td>0.0 10*3/uL</td > <td>0.0-0.1</td> </tr> <tr> <th colspan="10"> PT panel in platelet poor plasma by coagulation assay - 10/18/16 14:42</th> </tr> <tr> <td>Prothrombin time (PT) in platelet poor plasma by coagulation assay</td> <td>13.4 s</td> <td>12.2-14.7 </td> </tr> <tr> <td>INR in platelet poor plasma or blood by coagulation assay</td> <td>1.1 </td> <td>0.8-1.4</td > </tr> <tr> <th colspan="10">Comprehensive metabolic panel - 10/18/16 14:42</th> </tr> <tr> <td>Serum or plasma sodium measurement (moles/volume)</td> <td>138 mmol/L</td> <td>135-145</td> </tr> <tr> <td>Serum or plasma potassium measurement (moles/volume)</td> <td>3.5 mmol/L</td> <td>3.6-5.0</td> </tr> <tr> <td>Serum or plasma chloride measurement (moles/volume)</td> <td>108 mmol/L</td> <td>98-107 </td> </tr> <tr> <td>Carbon dioxide</td> <td>20 mmol/L</td> <td>21-32</td> </tr> <tr> <td>Serum or plasma anion gap determination (moles/volume)</td> <td>10 mmol/L</td > <td>5-14</td> </tr> <tr> <td>Serum or plasma urea nitrogen measurement (mass/volume)</td> <td>11 mg/dL</td> <td>7-18</td> </tr> <tr> <td>Serum or plasma creatinine measurement (mass/volume)</td> <td>0.65 mg/dL</td> <td>0.60-1.30</td> </tr> <tr> <td>Serum or plasma urea nitrogen/creatinine mass ratio</td> <td>17 </td> <td>NRG</td> </tr> <tr> <td>Serum or plasma creatinine measurement with calculation of estimated glomerular filtration rate</td> <td>> </td> <td>NRG</td> </tr> <tr> <td>Serum or plasma glucose measurement (mass/volume)</td> <td>106 mg/dL</td> <td>70-105</td> </tr> <tr> <td>Serum or plasma calcium measurement (mass/volume)</td> <td>8.7 mg/dL</td> <td> 8.5-10.1</td> </tr> <tr> <td>Serum or plasma total bilirubin measurement (mass/volume)</td> <td>0.9 mg/dL</td> < td>0.1-1.0</td> </tr> <tr> <td>Serum or plasma alkaline phosphatase measurement (enzymatic activity/volume)</td> <td>119 U/L</ td> <td>40-136</td> </tr> <tr> <td>Serum or plasma aspartate aminotransferase measurement (enzymatic activity/volume)</td> <td>15 U/L</td> <td>5-34</td> </tr> <tr> <td>Serum or plasma alanine aminotransferase measurement (enzymatic activity/ volume)</td> <td>12 U/L</td> <td>0-55</td> </tr> <tr> <td>Serum or plasma protein measurement (mass/volume)</td> <td>6.3 g/dL</td> <td>6.4-8.2</td> </tr> <tr> <td>Serum or plasma albumin measurement (mass/volume)</td> <td>4.0 g/dL</td> <td>3.2-4.5</td> </tr> <tr> <th colspan="10">Blood manual differential performed detection - 10/18/16 14:42</th > </tr> <tr> <td>Blood monocytes/100 leukocytes</td> <td>3 %</td> <td>NRG</td> </tr> <tr> < td>Manual blood segmented neutrophils/100 leukocytes</td> <td>75 %< /td> <td>NRG</td> </tr> <tr> <td>Blood band neutrophils/100 leukocytes</td> <td>13 %</td> <td>NRG</td > </tr> <tr> <td>Manual blood lymphocytes/100 leukocytes< /td> <td>7 %</td> <td>NRG</td> </tr> <tr> <td>Manual eosinophils/100 leukocytes in nose</td> <td>2 %< /td> <td>NRG</td> </tr> <tr> <td>Manual blood basophils/100 leukocytes</td> <td>0 %</td> <td>NRG</td> </tr> <tr> <td>Blood erythrocyte morphology finding identification</td> <td>NORMAL </td> <td>NRG</td> </tr > <tr> < colspan="10">Complete urinalysis with reflex to culture - 10/18/16 16:47</th> </tr> <tr> <td>Urine color determination</td> <td>YELLOW </td> <td>NRG</td> </tr> <tr> <td>Urine clarity determination</td> <td>CLEAR </ td> <td>NRG</td> </tr> <tr> <td>Urine pH measurement by test strip</td> <td>5 </td> <td>5-9</td> </tr> <tr> <td>Specific gravity of urine by test strip</td> <td>1.020 </td> <td>1.016-1.022</td> </tr> <tr> <td>Urine protein assay by test strip, semi-quantitative</td> <td>2+ </td> <td>NEGATIVE</td> </tr> <tr> <td> Urine glucose detection by automated test strip</td> <td>NEGATIVE </td > <td>NEGATIVE</td> </tr> <tr> <td>Erythrocytes detection in urine sediment by light microscopy</td> <td>NEGATIVE </td > <td>NEGATIVE</td> </tr> <tr> <td>Urine ketones detection by automated test strip</td> <td>NEGATIVE </td> <td>NEGATIVE</td> </tr> <tr> <td>Urine nitrite detection by test strip</td> <td>NEGATIVE </td> <td>NEGATIVE</ td> </tr> <tr> <td>Urine total bilirubin detection by test strip</td> <td>NEGATIVE </td> <td>NEGATIVE</td> </ tr> <tr> <td>Urine urobilinogen measurement by automated test strip (mass/volume)</td> <td>NORMAL </td> <td>NORMAL</td> </tr> <tr> <td>Urine leukocyte esterase detection by dipstick</td> <td>1+ </td> <td>NEGATIVE</td> </tr> <tr> <td>Automated urine sediment erythrocyte count by microscopy ( number/high power field)</td> <td>NONE </td> <td>NRG</td> </tr> <tr> <td>Automated urine sediment leukocyte count by microscopy (number/high power field)</td> <td> [HPF]</td> <td> NRG</td> </tr> <tr> <td>Bacteria detection in urine sediment by light microscopy</td> <td>NONE </td> <td>NRG</td> </tr> <tr> <td>Squamous epithelial cells detection in urine sediment by light microscopy</td> <td>5-10 </td> <td>NRG </td> </tr> <tr> <td>Crystals detection in urine sediment by light microscopy</td> <td>NONE </td> <td>NRG</td> </tr> <tr> <td>Casts detection in urine sediment by light microscopy</td> <td>NONE </td> <td>NRG</td> </tr > <tr> <td>Mucus detection in urine sediment by light microscopy </td> <td>NEGATIVE </td> <td>NRG</td> </tr> <tr > <td>Complete urinalysis with reflex to culture</td> <td>NO < /td> <td>NRG</td> </tr> <tr> < colspan="10"> Urine drug screening test - 10/18/16 16:47</th> </tr> <tr> <td>Urine phencyclidine detection by screening method</td> <td> NEGATIVE </td> <td>NEGATIVE</td> </tr> <tr> <td> Urine benzodiazepines detection by screening method</td> <td>POSITIVE < /td> <td>NEGATIVE</td> </tr> <tr> <td>Urine cocaine detection</td> <td>NEGATIVE </td> <td>NEGATIVE</td> </tr> <tr> <td>Urine amphetamines detection by screening method</td> <td>NEGATIVE </td> <td>NEGATIVE</td> </tr> <tr> <td>Urine methamphetamine detection by screening method</ td> <td>NEGATIVE </td> <td>NEGATIVE</td> </tr> < tr> <td>Urine cannabinoids detection by screening method</td> <td>NEGATIVE </td> <td>NEGATIVE</td> </tr> <tr> <td>Urine opiates detection by screening method</td> <td>NEGATIVE </td > <td>NEGATIVE</td> </tr> <tr> <td>Urine barbiturates detection</td> <td>NEGATIVE </td> <td>NEGATIVE</ td> </tr> <tr> <td>Screening urine tricyclic antidepressants detection</td> <td>NEGATIVE </td> <td>NEGATIVE </td> </tr> <tr> <td>Urine methadone detection by screening method</td> <td>NEGATIVE </td> <td>NEGATIVE</td> </tr> <tr> <td>Urine oxycodone detection</td> <td> NEGATIVE </td> <td>NEGATIVE</td> </tr> <tr> <td> Urine propoxyphene detection</td> <td>NEGATIVE </td> <td> NEGATIVE</td> </tr> <tr> <th colspan="10">STOOL (O T P) - 12/02/16 10:57</th> </tr> <tr> <td>Ova + Parasite Exam< /td> <td>Final report </td> <td>NRG</td> </tr> < tr> <td>Result 1</td> <td> </td> <td>NRG</td> </tr> <tr> <th colspan="10">Stool Culture - 12/02/16 10:57</th> </tr> <tr> <td>Stool Culture</td> <td>Note </td > <td /> </tr> <tr> <th colspan="10">Ova + Parasite Exam - 12/02/16 10:57</th> </tr> <tr> <td>Ova + Parasite Exam</td> <td>Note </td> <td /> </tr> < tr> <th colspan="10">PATHOLOGY REPORT - 12/03/16 17:09</th> </tr > <tr> <td>.</td> <td> </td> <td>NRG</td> </tr> <tr> <td>.</td> <td> </td> <td>NRG</ td> </tr> <tr> <td>.</td> <td> </td> < td>NRG</td> </tr> <tr> <td>.</td> <td> </td> <td>NRG</td> </tr> <tr> <td>.</td> <td> < /td> <td>NRG</td> </tr> <tr> <td>.</td> <td> </td> <td>NRG</td> </tr> <tr> <td>.</td> <td> </td> <td>NRG</td> </tr> <tr> <td >.</td> <td>Comment: </td> <td>NRG</td> </tr> < tr> < colspan="10">Pathology Report - 12/03/16 17:09</th> </tr > <tr> <td>.</td> <td>Comment </td> <td /> </tr> <tr> <td>.</td> <td>Comment </td> < td /> </tr> <tr> <td>.</td> <td>Comment </td> <td /> </tr> <tr> <td>.</td> <td>Comment : </td> <td /> </tr> <tr> <td>.</td> < td>Comment </td> <td /> </tr> <tr> <td>.</td> <td>Comment </td> <td /> </tr> <tr> <td> .</td> <td>Comment </td> <td /> </tr> <tr> <td>.</td> <td>Comment </td> <td /> </tr> < tr> < colspan="10">Complete urinalysis with reflex to culture - 12/18 12:10</th> </tr> <tr> <td>Urine color determination</ td> <td>YELLOW </td> <td>NRG</td> </tr> <tr> <td>Urine clarity determination</td> <td>CLEAR </td> < td>NRG</td> </tr> <tr> <td>Urine pH measurement by test strip</td> <td>5 </td> <td>5-9</td> </tr> <tr> <td>Specific gravity of urine by test strip</td> <td>1.020 </ td> <td>1.016-1.022</td> </tr> <tr> <td>Urine protein assay by test strip, semi-quantitative</td> <td>1+ </td> <td>NEGATIVE</td> </tr> <tr> <td>Urine glucose detection by automated test strip</td> <td>NEGATIVE </td> <td> NEGATIVE</td> </tr> <tr> <td>Erythrocytes detection in urine sediment by light microscopy</td> <td>2+ </td> <td> NEGATIVE</td> </tr> <tr> <td>Urine ketones detection by automated test strip</td> <td>NEGATIVE </td> <td>NEGATIVE</td > </tr> <tr> <td>Urine nitrite detection by test strip</ td> <td>POSITIVE </td> <td>NEGATIVE</td> </tr> < tr> <td>Urine total bilirubin detection by test strip</td> <td >NEGATIVE </td> <td>NEGATIVE</td> </tr> <tr> <td >Urine urobilinogen measurement by automated test strip (mass/volume)</td> <td>NORMAL </td> <td>NORMAL</td> </tr> <tr> <td>Urine leukocyte esterase detection by dipstick</td> <td>3+ </td> <td>NEGATIVE</td> </tr> <tr> <td>Automated urine sediment erythrocyte count by microscopy (number/high power field)</td> <td> [HPF]</td> <td>NRG</td> </tr> <tr> <td>Automated urine sediment leukocyte count by microscopy (number/high power field)</td> <td>> [HPF]</td> <td>NRG</td> </tr> <tr> <td>Bacteria detection in urine sediment by light microscopy</ td> <td>LARGE </td> <td>NRG</td> </tr> <tr> <td>Squamous epithelial cells detection in urine sediment by light microscopy</td> <td>5-10 </td> <td>NRG</td> </tr> <tr> <td>Crystals detection in urine sediment by light microscopy</ td> <td>NONE </td> <td>NRG</td> </tr> <tr> <td>Casts detection in urine sediment by light microscopy</td> <td >NONE </td> <td>NRG</td> </tr> <tr> <td>Mucus detection in urine sediment by light microscopy</td> <td>NEGATIVE </td > <td>NRG</td> </tr> <tr> <td>Complete urinalysis with reflex to culture</td> <td>YES </td> <td>NRG</ td> </tr> <tr> <th colspan="10">Bacterial urine culture - 12/18/16 12:10</th> </tr> <tr> <td>Bacterial urine culture</td> <td>[id number] </td> <td>NRG</td> </tr> <tr> <td>COLONY COUNT</td> <td>>100,000/ML </td> <td>NRG</td> </tr> <tr> <td>FTX;REPORTABLE</td> <td>SENSITIVITY REPORTED 12/20/16 8:20 </td> <td>NRG</td> < /tr> <tr> <th colspan="10">Bacterial susceptibility panel - 07/01 12:10</th> </tr> <tr> <td>Gentamicin susceptibility test by minimum inhibitory concentration</td> <td><=< /td> <td>NRG</td> </tr> <tr> <td>Trimethoprim/ sulfamethoxazole susceptibility test by minimum inhibitoryconcentration</td> <td><=</td> <td>NRG</td> </tr> <tr> < td>Ampicillin susceptibility test by minimum inhibitory concentration</td> <td><=</td> <td>NRG</td> </tr> <tr> <td> Tobramycin susceptibility test by minimum inhibitory concentration</td> <td><=</td> <td>NRG</td> </tr> <tr> <td> Cefazolin susceptibility test by minimum inhibitory concentration</td> <td><=</td> <td>NRG</td> </tr> <tr> <td> Ceftriaxone susceptibility test by minimum inhibitory concentration</td> <td><=</td> <td>NRG</td> </tr> <tr> <td> Ampicillin/sulbactam susceptibility test by minimum inhibitory concentration</td > <td><=</td> <td>NRG</td> </tr> <tr> <td>Piperacillin/tazobactam susceptibility test by minimum inhibitory concentration</td> <td><=</td> <td>NRG</td> </tr> <tr> <td>Ciprofloxacin susceptibility test by minimum inhibitory concentration</td> <td><=</td> <td>NRG</td> </tr> <tr> <td>Meropenem susceptibility test by minimum inhibitory concentration</td> <td><=</td> <td>NRG</td> </tr> <tr> <td>Nitrofurantoin susceptibility test by minimum inhibitory concentration</td> <td><=</td> <td>NRG</td> </tr> <tr> <td>Aztreonam susceptibility test by minimum inhibitory concentration</td> <td><=</td> <td>NRG</td> </tr> <tr> <td>Extended spectrum beta lactamase (ESBL) producing bacteria susceptibility test by minimum inhibitory concentration</td> <td>- </td> <td>NRG</td> </tr> <tr> < th colspan="10">HSV 1/2 ANTIBODY IgM - 12/31/16 12:28</th> </tr> < tr> <td>HSV 1 IgM Antibodies</td> <td><1:10 titer</td> <td><1:10</td> </tr> <tr> <td>HSV 2 IgM Antibodies</td> <td><1:10 titer</td> <td><1:10</td> </tr> <tr> <th colspan="10">CULTURE, GENITAL - 12/31/16 12: 28</th> </tr> <tr> <td>Genital Culture, Routine</td> <td>Final report </td> <td>NRG</td> </tr> <tr> <td>Result 1</td> <td> </td> <td>NRG</td> </tr> <tr> <td>Result 2</td> <td> </td> <td>NRG</td > </tr> <tr> <th colspan="10">CULTURE, URINE - 12/31/16 12:28</th> </tr> <tr> <td>Urine Culture, Routine</td> <td>Final report </td> <td>NRG</td> </tr> <tr> <td>Result 1</td> <td>Klebsiella oxytoca </td> <td>NRG< /td> </tr> <tr> <td>Antimicrobial Susceptibility</td> <td> </td> <td>NRG</td> </tr> <tr> <th colspan="10">PDF Report - 12/31/16 12:28</th> </tr> <tr> <td>PDF Report1</td> <td>[facility] </td> <td>NRG</td> </tr> <tr> <th colspan="10">HSV 1 and 2-Specific Ab, IgG - 12/31/16 12:28</th> </tr> <tr> <td>HSV 1 IgG, Type Spec</td> <td>12.80 index</td> <td>0.00-0.90</td> </tr> <tr> <td>HSV 2 IgG, Type Spec</td> <td>3.43 index</td> <td >0.00-0.90</td> </tr> <tr> <th colspan="10">HSV 1 and 2 IgM Abs, Indirect - 12/31/16 12:28</th> </tr> <tr> <td> HSV 1 IgM Antibodies</td> <td><1:10 titer</td> <td><1:10 </td> </tr> <tr> <td>HSV 2 IgM Antibodies</td> < td><1:10 titer</td> <td><1:10</td> </tr> <tr> <th colspan="10">Urine Culture, Routine - 12/31/16 12:28</th> </tr> <tr> <td>Urine Culture, Routine</td> <td>Note </td> <td /> </tr> <tr> <th colspan="10">Genital Culture, Routine - 12/31/16 12:28</th> </tr> <tr> <td> Genital Culture, Routine</td> <td>Note </td> <td /> </ tr> <tr> <th colspan="10">Pap Lb, HPV-hr - 12/31/16 12:28</th> </tr> <tr> <td>HPV, high-risk</td> <td>Negative </td> <td>Negative</td> </tr> <tr> <td>DIAGNOSIS :</td> <td>Comment </td> <td /> </tr> <tr> <td>Specimen adequacy:</td> <td>Comment </td> <td /> </tr> <tr> <td>Clinician provided ICD10:</td> <td> Comment </td> <td /> </tr> <tr> <td>Performed by :</td> <td>Comment </td> <td /> </tr> <tr> <td>QC reviewed by:</td> <td>Comment </td> <td /> </tr> <tr> <td>.</td> <td>. </td> <td /> </tr> <tr> <td>Note:</td> <td>Comment </td> <td /> </tr> <tr> <th colspan="10">VITAMIN D, 25-H - 15:06</th> </tr> <tr> <td>VITAMIN D,25-OH,TOTAL,IA </td> <td>29 ng/mL</td> <td>30-100</td> </tr> < tr> <th colspan="10">VITAMIN B12 - 02/21/17 15:06</th> </tr> <tr> <td>VITAMIN B12</td> <td>276 pg/mL</td> <td >200-1100</td> </tr> <tr> <th colspan="10">PATHOLOGY REPORT (TISSUE PAHOLOGY) - 02/21/17 15:06</th> </tr> <tr> <td>CLINICAL INFORMATION</td> <td> </td> <td>NRG</td> </tr> <tr> <td>PATHOLOGIST</td> <td> </td> < td>NRG</td> </tr> <tr> <th colspan="10">TISSUE, 2 SPECIMENS - 02/21/17 15:06</th> </tr> <tr> <td>A SOURCE</ td> <td> </td> <td>NRG</td> </tr> <tr> <td>A GROSS DESCRIPTION</td> <td> </td> <td>NRG</td> </ tr> <tr> <td>A DIAGNOSIS</td> <td> </td> <td> NRG</td> </tr> <tr> <td>A COMMENT</td> <td> </td > <td>NRG</td> </tr> <tr> <th colspan="10"> CULTURE, URINE - 03/05/17 15:02</th> </tr> <tr> <td> CULTURE, URINE, ROUTINE</td> <td>SEE NOTE </td> <td>NRG</td> </tr> <tr> <th colspan="10">Urine beta human chorionic gonadotropin (hCG) measurement - 03/12/17 07:40</th> </tr> <tr> <td>Urine beta human chorionic gonadotropin (hCG) measurement</td> <td>NEGATIVE </td> <td>NEGATIVE</td> </tr> <tr> <th colspan="10">Urine beta human chorionic gonadotropin (hCG) measurement - 03/24/17 11:15</th> </tr> <tr> <td>Urine beta human chorionic gonadotropin (hCG) measurement</td> <td>NEGATIVE < /td> <td>NEGATIVE</td> </tr> <tr> <th colspan= "10">CULTURE, URINE - 04/11/17 11:10</th> </tr> <tr> <td> CULTURE, URINE, ROUTINE</td> <td>SEE NOTE </td> <td>NRG</td> </tr> <tr> <th colspan="10">CULTURE, GENITAL - 05/02/17 10:21</th> </tr> <tr> <td>CULTURE, GENITAL</td> <td>SEE NOTE </td> <td>NRG</td> </tr> <tr> <th colspan="10">HIV PCR- APPROVAL REQUIRED - 06/02/17 14:55</th> </tr> <tr> <td>HIV 1 RNA, QN PCR</td> <td>92120 copies/mL</td> <td>NOT DETECTED</td> </tr> <tr> <td>HIV 1 RNA, QN PCR</td> <td>4.81 Log copies/mL</td> <td>NOT DETECTED</td> </tr> <tr> <th colspan="10">TESTOSTERONE, TOTAL (WOMEN, CHILDREN, HYPOGONADAL MALES) - 06/02/17 14:55</th> </tr> <tr> <td>TESTOSTERONE, TOTAL, LC/MS/MS</td> <td>19 ng/dL</td> <td>2-45</td> </tr> <tr> <td>FREE TESTOSTERONE</td> <td>1.6 pg/mL</td> <td>0.1-6.4</td> </tr> <tr> <th colspan="10">Complete blood count (CBC) with automated white blood cell (WBC) differential - 06/24/17 15:25</th> </tr> <tr> <td>Blood leukocytes automated count (number/volume)</td> <td>8.0 10*3/ uL</td> <td>4.3-11.0</td> </tr> <tr> <td>Blood erythrocytes automated count (number/volume)</td> <td>4.95 10*6/uL</td > <td>4.35-5.85</td> </tr> <tr> <td>Venous blood hemoglobin measurement (mass/volume)</td> <td>12.0 g/dL</td> <td>11.5-16.0</td> </tr> <tr> <td>Blood hematocrit (volume fraction)</td> <td>37 %</td> <td>35-52</td> </tr> <tr> <td>Automated erythrocyte mean corpuscular volume</ td> <td>74 [foz_us]</td> <td>80-99</td> </tr> < tr> <td>Automated erythrocyte mean corpuscular hemoglobin (mass per erythrocyte)</td> <td>24 pg</td> <td>25-34</td> </tr> <tr> <td>Automated erythrocyte mean corpuscular hemoglobin concentration measurement (mass/volume)</td> <td>33 g/dL</td> <td>32-36</td> </tr> <tr> <td>Automated erythrocyte distribution width ratio</td> <td>18.0 %</td> <td>10.0- 14.5</td> </tr> <tr> <td>Automated blood platelet count ( count/volume)</td> <td>273 10*3/uL</td> <td>130-400</td> </tr> <tr> <td>Automated blood platelet mean volume measurement</td> <td>11.4 [foz_us]</td> <td>7.4-10.4</td> </tr> <tr> <td>Automated blood neutrophils/100 leukocytes</ td> <td>70 %</td> <td>42-75</td> </tr> <tr> <td>Automated blood lymphocytes/100 leukocytes</td> <td>19 &# 37;</td> <td>12-44</td> </tr> <tr> <td>Blood monocytes/100 leukocytes</td> <td>9 %</td> <td>0-12</td> </tr> <tr> <td>Automated blood eosinophils/100 leukocytes </td> <td>2 %</td> <td>0-10</td> </tr> <tr> <td>Automated blood basophils/100 leukocytes</td> <td>0 % </td> <td>0-10</td> </tr> <tr> <td>Blood neutrophils automated count (number/volume)</td> <td>5.7 10*3</td> <td>1.8-7.8</td> </tr> <tr> <td>Blood lymphocytes automated count (number/volume)</td> <td>1.5 10*3</td> <td>1.0 -4.0</td> </tr> <tr> <td>Blood monocytes automated count (number/volume)</td> <td>0.7 10*3</td> <td>0.0-1.0</td> </tr> <tr> <td>Automated eosinophil count</td> <td> 0.2 10*3/uL</td> <td>0.0-0.3</td> </tr> <tr> <td >Automated blood basophil count (count/volume)</td> <td>0.0 10*3/uL</td > <td>0.0-0.1</td> </tr> <tr> <th colspan="10"> Comprehensive metabolic panel - 06/24/17 15:25</th> </tr> <tr> <td>Serum or plasma sodium measurement (moles/volume)</td> <td> 139 mmol/L</td> <td>135-145</td> </tr> <tr> <td> Serum or plasma potassium measurement (moles/volume)</td> <td>3.6 mmol/ L</td> <td>3.6-5.0</td> </tr> <tr> <td>Serum or plasma chloride measurement (moles/volume)</td> <td>109 mmol/L</td> <td>98-107</td> </tr> <tr> <td>Carbon dioxide</td > <td>27 mmol/L</td> <td>21-32</td> </tr> <tr> <td>Serum or plasma anion gap determination (moles/volume)</td> <td>3 mmol/L</td> <td>5-14</td> </tr> <tr> < td>Serum or plasma urea nitrogen measurement (mass/volume)</td> <td>9 mg/dL</td> <td>7-18</td> </tr> <tr> <td>Serum or plasma creatinine measurement (mass/volume)</td> <td>0.70 mg/dL</td > <td>0.60-1.30</td> </tr> <tr> <td>Serum or plasma urea nitrogen/creatinine mass ratio</td> <td>13 </td> < td>NRG</td> </tr> <tr> <td>Serum or plasma creatinine measurement with calculation of estimated glomerular filtration rate</td> <td>> </td> <td>NRG</td> </tr> <tr> <td> Serum or plasma glucose measurement (mass/volume)</td> <td>116 mg/dL</ td> <td>70-105</td> </tr> <tr> <td>Serum or plasma calcium measurement (mass/volume)</td> <td>9.1 mg/dL</td> <td>8.5-10.1</td> </tr> <tr> <td>Serum or plasma total bilirubin measurement (mass/volume)</td> <td>0.4 mg/dL</td> <td>0.1-1.0</td> </tr> <tr> <td>Serum or plasma alkaline phosphatase measurement (enzymatic activity/volume)</td> <td> 82 U/L</td> <td>40-136</td> </tr> <tr> <td> Serum or plasma aspartate aminotransferase measurement (enzymatic activity/ volume)</td> <td>15 U/L</td> <td>5-34</td> </tr> <tr> <td>Serum or plasma alanine aminotransferase measurement ( enzymatic activity/volume)</td> <td>12 U/L</td> <td>0-55</td> </tr> <tr> <td>Serum or plasma protein measurement (mass /volume)</td> <td>7.4 g/dL</td> <td>6.4-8.2</td> </tr> <tr> <td>Serum or plasma albumin measurement (mass/volume)</td > <td>4.2 g/dL</td> <td>3.2-4.5</td> </tr> <tr> <th colspan="10">Complete urinalysis with reflex to culture - 15:25</th> </tr> <tr> <td>Urine color determination</ td> <td>YELLOW </td> <td>NRG</td> </tr> <tr> <td>Urine clarity determination</td> <td>VERY CLOUDY </td> <td>NRG</td> </tr> <tr> <td>Urine pH measurement by test strip</td> <td>5 </td> <td>5-9</td> </tr> < tr> <td>Specific gravity of urine by test strip</td> <td> 1.020 </td> <td>1.016-1.022</td> </tr> <tr> <td> Urine protein assay by test strip, semi-quantitative</td> <td>1+ </td> <td>NEGATIVE</td> </tr> <tr> <td>Urine glucose detection by automated test strip</td> <td>NEGATIVE </td> <td> NEGATIVE</td> </tr> <tr> <td>Erythrocytes detection in urine sediment by light microscopy</td> <td>1+ </td> <td> NEGATIVE</td> </tr> <tr> <td>Urine ketones detection by automated test strip</td> <td>NEGATIVE </td> <td>NEGATIVE</td > </tr> <tr> <td>Urine nitrite detection by test strip</ td> <td>NEGATIVE </td> <td>NEGATIVE</td> </tr> < tr> <td>Urine total bilirubin detection by test strip</td> <td >NEGATIVE </td> <td>NEGATIVE</td> </tr> <tr> <td >Urine urobilinogen measurement by automated test strip (mass/volume)</td> <td>NORMAL </td> <td>NORMAL</td> </tr> <tr> <td>Urine leukocyte esterase detection by dipstick</td> <td>3+ </td> <td>NEGATIVE</td> </tr> <tr> <td>Automated urine sediment erythrocyte count by microscopy (number/high power field)</td> <td>RARE </td> <td>NRG</td> </tr> <tr> < td>Automated urine sediment leukocyte count by microscopy (number/high power field)</td> <td> [HPF]</td> <td>NRG</td> </tr> < tr> <td>Bacteria detection in urine sediment by light microscopy</td> <td>MODERATE </td> <td>NRG</td> </tr> <tr> <td>Squamous epithelial cells detection in urine sediment by light microscopy</td> <td>10-25 </td> <td>NRG</td> </tr> <tr> <td>Crystals detection in urine sediment by light microscopy</ td> <td>NONE </td> <td>NRG</td> </tr> <tr> <td>Casts detection in urine sediment by light microscopy</td> <td >NONE </td> <td>NRG</td> </tr> <tr> <td>Mucus detection in urine sediment by light microscopy</td> <td>SMALL </td> <td>NRG</td> </tr> <tr> <td>Complete urinalysis with reflex to culture</td> <td>YES </td> <td>NRG</td> </tr> <tr> < colspan="10">Urine drug screening test - 15:25</th> </tr> <tr> <td>Urine phencyclidine detection by screening method</td> <td>NEGATIVE </td> <td> NEGATIVE</td> </tr> <tr> <td>Urine benzodiazepines detection by screening method</td> <td>POSITIVE </td> <td> NEGATIVE</td> </tr> <tr> <td>Urine cocaine detection</td > <td>NEGATIVE </td> <td>NEGATIVE</td> </tr> <tr > <td>Urine amphetamines detection by screening method</td> < td>NEGATIVE </td> <td>NEGATIVE</td> </tr> <tr> < td>Urine methamphetamine detection by screening method</td> <td> NEGATIVE </td> <td>NEGATIVE</td> </tr> <tr> <td> Urine cannabinoids detection by screening method</td> <td>NEGATIVE </td > <td>NEGATIVE</td> </tr> <tr> <td>Urine opiates detection by screening method</td> <td>NEGATIVE </td> <td>NEGATIVE</td> </tr> <tr> <td>Urine barbiturates detection</td> <td>NEGATIVE </td> <td>NEGATIVE</td> </ tr> <tr> <td>Screening urine tricyclic antidepressants detection </td> <td>POSITIVE </td> <td>NEGATIVE</td> </tr> <tr> <td>Urine methadone detection by screening method</td> <td>NEGATIVE </td> <td>NEGATIVE</td> </tr> <tr> <td>Urine oxycodone detection</td> <td>NEGATIVE </td> <td> NEGATIVE</td> </tr> <tr> <td>Urine propoxyphene detection </td> <td>NEGATIVE </td> <td>NEGATIVE</td> </tr> <tr> < colspan="10">Bacterial urine culture - 06/24/17 15:25</th> </tr> <tr> <td>Bacterial urine culture</td> <td> [id number] </td> <td>NRG</td> </tr> <tr> <td> COLONY COUNT</td> <td>>100,000/ML </td> <td>NRG</td> </tr> <tr> <td>FTX;REPORTABLE</td> <td>SENSITIVITY REPORTED AT 1756, 4-11-18 </td> <td>NRG</td> </tr> <tr> <td>URINE CULTURE RESULTS</td> <td>PLUS </td> <td>NRG </td> </tr> <tr> < colspan="10">Bacterial susceptibility panel - 06/24/17 15:25</th> </tr> <tr> <td >Gentamicin susceptibility test by minimum inhibitory concentration</td> <td><=</td> <td>NRG</td> </tr> <tr> <td> Trimethoprim/sulfamethoxazole susceptibility test by minimum inhibitoryconcentration</td> <td>S </td> <td>NRG</td> < /tr> <tr> <td>Ampicillin susceptibility test by minimum inhibitory concentration</td> <td>R </td> <td>NRG</td> </tr> <tr> <td>Tobramycin susceptibility test by minimum inhibitory concentration</td> <td><=</td> <td>NRG</td> </tr> <tr> <td>Cefazolin susceptibility test by minimum inhibitory concentration</td> <td><=</td> <td>NRG</td> </tr> <tr> <td>Ceftriaxone susceptibility test by minimum inhibitory concentration</td> <td><=</td> <td>NRG</td> </tr> <tr> <td>Ampicillin/sulbactam susceptibility test by minimum inhibitory concentration</td> <td>S </td> <td>NRG</td > </tr> <tr> <td>Piperacillin/tazobactam susceptibility test by minimum inhibitory concentration</td> <td>S </td> <td> NRG</td> </tr> <tr> <td>Ciprofloxacin susceptibility test by minimum inhibitory concentration</td> <td><=</td> < td>NRG</td> </tr> <tr> <td>Meropenem susceptibility test by minimum inhibitory concentration</td> <td><=</td> <td> NRG</td> </tr> <tr> <td>Nitrofurantoin susceptibility test by minimum inhibitory concentration</td> <td><=</td> < td>NRG</td> </tr> <tr> <td>Aztreonam susceptibility test by minimum inhibitory concentration</td> <td><=</td> <td> NRG</td> </tr> <tr> <td>Extended spectrum beta lactamase (ESBL) producing bacteria susceptibility test by minimum inhibitory concentration</td> <td>- </td> <td>NRG</td> </tr> <tr> < colspan="10">CULTURE, GENITAL - 09/26/17 15:09</th> </tr> <tr> <td>CULTURE, GENITAL</td> <td>SEE NOTE </td > <td>NRG</td> </tr> </tbody> </table> </text> <entry > <organizer moodCode="EVN" classCode="BATTERY"> <templateId root= "[id number]" /> <id nullFlavor="NA" /> <code codeSystem="local" code="CBCD" displayName="CBC W/DIFF" /> <statusCode code ="completed" /> <component> <observation moodCode="EVN" classCode= "OBS"> <templateId root="[id number].2" /> < id nullFlavor="NA" /> <code codeSystem="local" code="EO#" displayName= "EOSINOPHIL #" /> <statusCode code="completed" /> < effectiveTime value="[id number]" /> <value unit="k/cumm" xsi:type="PQ " value="0.1" /> <referenceRange> <observationRange> <text>0.1-0.5</text> </observationRange> </ referenceRange> </observation> </component> <component> <observation moodCode="EVN" classCode="OBS"> <templateId root= "[id number].2" /> <id nullFlavor="NA" /> < code codeSystem="local" code="EO%" displayName="EOSINOPHIL %" /> <statusCode code="completed" /> <effectiveTime value="987731924949" /> <value unit="%" xsi:type="PQ" value="1" /> < interpretationCode codeSystem="local" code="*" /> <referenceRange> <observationRange> <text>2-4</text> </ observationRange> </referenceRange> </observation> </ component> <component> <observation moodCode="EVN" classCode="OBS"> <templateId root="05.02.840.1.942098.01.03.22.4.2" /> <id nullFlavor="NA" /> <code codeSystem="local" code="GR#" displayName= "GRANULOCYTE #" /> <statusCode code="completed" /> < effectiveTime value="[id number]" /> <value unit="k/cumm" xsi:type="PQ " value="5.3" /> <referenceRange> <observationRange> <text>2.0-9.0</text> </observationRange> </ referenceRange> </observation> </component> <component> <observation moodCode="EVN" classCode="OBS"> <templateId root= "840.1.746046.01.03.224.2" /> <id nullFlavor="NA" /> < code codeSystem="local" code="GR%" displayName="GRANULOCYTE %" /> <statusCode code="completed" /> <effectiveTime value="036043325623 " /> <value unit="%" xsi:type="PQ" value="76" /> < interpretationCode codeSystem="local" code="*" /> <referenceRange> <observationRange> <text>50-75</text> </ observationRange> </referenceRange> </observation> </ component> <component> <observation moodCode="EVN" classCode="OBS"> <templateId root="05.02.840.1.629742.10.4.2" /> <id nullFlavor="NA" /> <code codeSystem="local" code="LY#" displayName= "LYMPHOCYTE #" /> <statusCode code="completed" /> < effectiveTime value="275724835679" /> <value unit="k/cumm" xsi:type="PQ " value="1.0" /> <referenceRange> <observationRange> <text>1.0-4.0</text> </observationRange> </ referenceRange> </observation> </component> <component> <observation moodCode="EVN" classCode="OBS"> <templateId root= "05.02.840.1.321112.10.20.22.4.2" /> <id nullFlavor="NA" /> < code codeSystem="local" code="LY%" displayName="LYMPHOCYTE %" /> <statusCode code="completed" /> <effectiveTime value="767594109252" /> <value unit="%" xsi:type="PQ" value="15" /> < interpretationCode codeSystem="local" code="*" /> <referenceRange> <observationRange> <text>20-30</text> </ observationRange> </referenceRange> </observation> </ component> <component> <observation moodCode="EVN" classCode="OBS"> <templateId root="05.02.840.1.080845.1022.4.2" /> <id nullFlavor="NA" /> <code codeSystem="local" code="MCH" displayName= "MEAN CELL HGB" /> <statusCode code="completed" /> < effectiveTime value="782805373623" /> <value unit="pg" xsi:type="PQ" value="24.9" /> <interpretationCode codeSystem="local" code="*" /> <referenceRange> <observationRange> <text>27.0- 33.0</text> </observationRange> </referenceRange> </ observation> </component> <component> <observation moodCode= "EVN" classCode="OBS"> <templateId root="05.02.840.1.037678.10.2022.4.2 " /> <id nullFlavor="NA" /> <code codeSystem="local" code= "MCHC" displayName="MEAN CELL HGB CONCENTRATION" /> <statusCode code= "completed" /> <effectiveTime value="" /> <value unit="g/dl" xsi:type="PQ" value="31.6" /> <interpretationCode codeSystem="local" code="*" /> <referenceRange> < observationRange> <text>32.0-36.0</text> </ observationRange> </referenceRange> </observation> </ component> <component> <observation moodCode="EVN" classCode="OBS"> <templateId root="216.840.1.005909.10..4.2" /> <id nullFlavor="NA" /> <code codeSystem="local" code="MCV" displayName= "MEAN CELL VOLUME" /> <statusCode code="completed" /> < effectiveTime value="" /> <value unit="fl" xsi:type="PQ" value="78.7" /> <interpretationCode codeSystem="local" code="*" /> <referenceRange> <observationRange> <text>80.0- 100.0</text> </observationRange> </referenceRange> </ observation> </component> <component> <observation moodCode= "EVN" classCode="OBS"> <templateId root="216.840.1.442059.10.2022.4.2 " /> <id nullFlavor="NA" /> <code codeSystem="local" code="MO# " displayName="MONOCYTE #" /> <statusCode code="completed" /> <effectiveTime value="" /> <value unit="k/cumm" xsi:type= "PQ" value="0.6" /> <referenceRange> <observationRange> <text>0.1-1.0</text> </observationRange> </ referenceRange> </observation> </component> <component> <observation moodCode="EVN" classCode="OBS"> <templateId root= "216.840.1.226336.10.22.4.2" /> <id nullFlavor="NA" /> < code codeSystem="local" code="MO%" displayName="MONOCYTE %" /> <statusCode code="completed" /> <effectiveTime value="919586947707" /> <value unit="%" xsi:type="PQ" value="8" /> < interpretationCode codeSystem="local" code="*" /> <referenceRange> <observationRange> <text>4-6</text> </ observationRange> </referenceRange> </observation> </ component> <component> <observation moodCode="EVN" classCode="OBS"> <templateId root="05.02.840.1.095990.01.03.224.2" /> <id nullFlavor="NA" /> <code codeSystem="local" code="RBC" displayName=" RED BLOOD CELL" /> <statusCode code="completed" /> < effectiveTime value="365586016929" /> <value unit="m/cumm" xsi:type="PQ " value="4.78" /> <referenceRange> <observationRange> <text>4.00-6.00</text> </observationRange> </ referenceRange> </observation> </component> <component> <observation moodCode="EVN" classCode="OBS"> <templateId root= "216.840.1.767789.10.4.2" /> <id nullFlavor="NA" /> < code codeSystem="local" code="RDW" displayName="RED CELL DISTRIBUTION WIDTH" /> <statusCode code="completed" /> <effectiveTime value= "" /> <value unit="%" xsi:type="PQ" value="17.6" /> <interpretationCode codeSystem="local" code="*" /> < referenceRange> <observationRange> <text>11.0-15.6</text > </observationRange> </referenceRange> </observation > </component> <component> <observation moodCode="EVN" classCode="OBS"> <templateId root="16.840.1.978393.10..22.4.2" /> <id nullFlavor="NA" /> <code codeSystem="local" code="WBC" displayName="WHITE BLOOD CELL" /> <statusCode code="completed" /> <effectiveTime value="" /> <value unit="k/cumm" xsi: type="PQ" value="7.0" /> <referenceRange> <observationRange > <text>5.0-10.0</text> </observationRange> </ referenceRange> </observation> </component> <component> <observation moodCode="EVN" classCode="OBS"> <templateId root= "16.840.1.369963.10..22.4.2" /> <id nullFlavor="NA" /> < code codeSystem="local" code="HGBT" displayName="HEMOGLOBIN" /> < statusCode code="completed" /> <effectiveTime value="" /> <value unit="gm/dL" xsi:type="PQ" value="11.9" /> < interpretationCode codeSystem="local" code="*" /> <referenceRange> <observationRange> <text>12.0-16.0</text> </ observationRange> </referenceRange> </observation> </ component> <component> <observation moodCode="EVN" classCode="OBS"> <templateId root="840.1.382180.1022.4.2" /> <id nullFlavor="NA" /> <code codeSystem="local" code="HCTT" displayName= "HEMATOCRIT" /> <statusCode code="completed" /> < effectiveTime value="402446749799" /> <value unit="%" xsi:type="PQ " value="37.6" /> <referenceRange> <observationRange> <text>37.0-47.0</text> </observationRange> </ referenceRange> </observation> </component> <component> <observation moodCode="EVN" classCode="OBS"> <templateId root= "840.1.745983.01.03.22.4.2" /> <id nullFlavor="NA" /> < code codeSystem="local" code="PLT" displayName="PLATELET COUNT" /> < statusCode code="completed" /> <effectiveTime value="359426772278" /> <value unit="k/cumm" xsi:type="PQ" value="303" /> < referenceRange> <observationRange> <text>150-450</text> </observationRange> </referenceRange> </observation > </component> </organizer> </entry> <entry> <organizer moodCode= "EVN" classCode="BATTERY"> <templateId root="840.1.484805.22.4.1 " /> <id nullFlavor="NA" /> <code codeSystem="local" code="METAB" displayName="METABOLIC PANEL, BASIC" /> <statusCode code="completed" /> <component> <observation moodCode="EVN" classCode="OBS"> < templateId root="840.1.954955.1022.4.2" /> <id nullFlavor="NA " /> <code codeSystem="local" code="K" displayName="POTASSIUM" /> <statusCode code="completed" /> <effectiveTime value="671276320216 " /> <value unit="mmol/L" xsi:type="PQ" value="3.9" /> < referenceRange> <observationRange> <text>3.5-5.3</text> </observationRange> </referenceRange> </observation > </component> <component> <observation moodCode="EVN" classCode="OBS"> <templateId root="2.16.840.1.384852.10..22.4.2" /> <id nullFlavor="NA" /> <code codeSystem="local" code="eGFR" displayName="EST GFR (MDRD)" /> <statusCode code="completed" /> <effectiveTime value="760403706510" /> <value unit="mL/min" xsi:type ="PQ" value="> 60" /> <referenceRange> <observationRange > <text>> 59</text> </observationRange> </ referenceRange> </observation> </component> <component> <observation moodCode="EVN" classCode="OBS"> <templateId root= "2.16.840.1.980411.10..22.4.2" /> <id nullFlavor="NA" /> < code codeSystem="local" code="GAP" displayName="ANION GAP" /> < statusCode code="completed" /> <effectiveTime value="[id number]" /> <value unit="mmol/L" xsi:type="PQ" value="7" /> < referenceRange> <observationRange> <text>5-15</text> </observationRange> </referenceRange> </observation> </component> <component> <observation moodCode="EVN" classCode= "OBS"> <templateId root="[id number]..22.4.2" /> < id nullFlavor="NA" /> <code codeSystem="local" code="eCrCl" displayName ="EST CrCl (CG)" /> <statusCode code="completed" /> < effectiveTime value="[id number]" /> <value unit="mL/min" xsi:type="PQ " value="> 60" /> <referenceRange> <observationRange> <text>> 59</text> </observationRange> </ referenceRange> </observation> </component> <component> <observation moodCode="EVN" classCode="OBS"> <templateId root= "[id number]...4.2" /> <id nullFlavor="NA" /> < code codeSystem="local" code="GLU" displayName="GLUCOSE" /> < statusCode code="completed" /> <effectiveTime value="" /> <value unit="mg/dL" xsi:type="PQ" value="83" /> < referenceRange> <observationRange> <text>70-99</text> </observationRange> </referenceRange> </observation> </component> <component> <observation moodCode="EVN" classCode= "OBS"> <templateId root="[id number]..22.4.2" /> < id nullFlavor="NA" /> <code codeSystem="local" code="CA" displayName= "CALCIUM" /> <statusCode code="completed" /> <effectiveTime value="[id number]" /> <value unit="mg/dL" xsi:type="PQ" value="8.7" / > <referenceRange> <observationRange> <text>8.5 -10.1</text> </observationRange> </referenceRange> </ observation> </component> <component> <observation moodCode= "EVN" classCode="OBS"> <templateId root="[id number] " /> <id nullFlavor="NA" /> <code codeSystem="local" code="BUN " displayName="BLOOD UREA NITROGEN" /> <statusCode code="completed" /> <effectiveTime value="" /> <value unit="mg/dL" xsi:type="PQ" value="7" /> <referenceRange> < observationRange> <text>7-20</text> </observationRange> </referenceRange> </observation> </component> < component> <observation moodCode="EVN" classCode="OBS"> < templateId root="[id number]" /> <id nullFlavor="NA " /> <code codeSystem="local" code="CREAT" displayName="CREATININE" /> <statusCode code="completed" /> <effectiveTime value= "" /> <value unit="mg/dL" xsi:type="PQ" value="0.6" /> <referenceRange> <observationRange> <text>0.6-1.0< /text> </observationRange> </referenceRange> </ observation> </component> <component> <observation moodCode= "EVN" classCode="OBS"> <templateId root="216.840.1.035338...4.2 " /> <id nullFlavor="NA" /> <code codeSystem="local" code="NA " displayName="SODIUM" /> <statusCode code="completed" /> < effectiveTime value="" /> <value unit="mmol/L" xsi:type="PQ " value="138" /> <referenceRange> <observationRange> <text>135-148</text> </observationRange> </ referenceRange> </observation> </component> <component> <observation moodCode="EVN" classCode="OBS"> <templateId root= "216.840.1.478613.10..22.4.2" /> <id nullFlavor="NA" /> < code codeSystem="local" code="CL" displayName="CHLORIDE" /> < statusCode code="completed" /> <effectiveTime value="702547162522" /> <value unit="mmol/L" xsi:type="PQ" value="103" /> < referenceRange> <observationRange> <text>98-110</text> </observationRange> </referenceRange> </observation> </component> <component> <observation moodCode="EVN" classCode ="OBS"> <templateId root="16.840.1.938190.10...4.2" /> < id nullFlavor="NA" /> <code codeSystem="local" code="CO2" displayName= "CARBON DIOXIDE" /> <statusCode code="completed" /> < effectiveTime value="506415534156" /> <value unit="mmol/L" xsi:type="PQ " value="28" /> <referenceRange> <observationRange> <text>21-32</text> </observationRange> </ referenceRange> </observation> </component> </organizer> </entry > <entry> <organizer moodCode="EVN" classCode="BATTERY"> <templateId root="216.840.1.957274.10..22.4.1" /> <id nullFlavor="NA" /> <code codeSystem="local" code="LIVER" displayName="HEPATIC FUNCTION PANEL" /> < statusCode code="completed" /> <component> <observation moodCode= "EVN" classCode="OBS"> <templateId root="216.840.1.897122.10..4.2 " /> <id nullFlavor="NA" /> <code codeSystem="local" code= "BILUC" displayName="BILI UNCONJUGATED" /> <statusCode code="completed " /> <effectiveTime value="" /> <value unit="mg/dL " xsi:type="PQ" value="0.2" /> <referenceRange> < observationRange> <text>0.0-0.7</text> </ observationRange> </referenceRange> </observation> </ component> <component> <observation moodCode="EVN" classCode="OBS"> <templateId root="2.840.1.117090.01.03.22.4.2" /> <id nullFlavor="NA" /> <code codeSystem="local" code="AST" displayName="AST /SGOT" /> <statusCode code="completed" /> <effectiveTime value ="" /> <value unit="Units/L" xsi:type="PQ" value="31" /> <referenceRange> <observationRange> <text>10-37< /text> </observationRange> </referenceRange> </ observation> </component> <component> <observation moodCode= "EVN" classCode="OBS"> <templateId root="216.840.1.822657....4.2 " /> <id nullFlavor="NA" /> <code codeSystem="local" code="ALT " displayName="ALT/SGPT" /> <statusCode code="completed" /> < effectiveTime value="" /> <value unit="Units/L" xsi:type= "PQ" value="29" /> <referenceRange> <observationRange> <text>< 66</text> </observationRange> </ referenceRange> </observation> </component> <component> <observation moodCode="EVN" classCode="OBS"> <templateId root= "05.02.840.1.352865.10.20.22.4.2" /> <id nullFlavor="NA" /> < code codeSystem="local" code="TP" displayName="TOTAL PROTEIN" /> < statusCode code="completed" /> <effectiveTime value="889190305531" /> <value unit="gm/dL" xsi:type="PQ" value="6.9" /> < referenceRange> <observationRange> <text>6.4-8.2</text> </observationRange> </referenceRange> </observation > </component> <component> <observation moodCode="EVN" classCode="OBS"> <templateId root="840.1.195210.1022.4.2" /> <id nullFlavor="NA" /> <code codeSystem="local" code="ALB" displayName="ALBUMIN" /> <statusCode code="completed" /> < effectiveTime value="272183906814" /> <value unit="gm/dL" xsi:type="PQ " value="3.6" /> <referenceRange> <observationRange> <text>3.4-5.0</text> </observationRange> </ referenceRange> </observation> </component> <component> <observation moodCode="EVN" classCode="OBS"> <templateId root= "05.02.840.1.136246.10.20.22.4.2" /> <id nullFlavor="NA" /> < code codeSystem="local" code="BILTOT" displayName="BILI TOTAL" /> < statusCode code="completed" /> <effectiveTime value="" /> <value unit="mg/dL" xsi:type="PQ" value="0.2" /> < referenceRange> <observationRange> <text>0.0-1.0</text> </observationRange> </referenceRange> </observation > </component> <component> <observation moodCode="EVN" classCode="OBS"> <templateId root="216.840.1.051814.10..4.2" /> <id nullFlavor="NA" /> <code codeSystem="local" code="ALKP" displayName="ALKALINE PHOSPHATASE TOTAL" /> <statusCode code="completed " /> <effectiveTime value="" /> <value unit="Units /L" xsi:type="PQ" value="100" /> <referenceRange> < observationRange> <text>50-136</text> </observationRange > </referenceRange> </observation> </component> < component> <observation moodCode="EVN" classCode="OBS"> < templateId root="216.840.1.526115.10...4.2" /> <id nullFlavor="NA " /> <code codeSystem="local" code="BILC" displayName="BILI CONJUGATED " /> <statusCode code="completed" /> <effectiveTime value= "395550418018" /> <value unit="mg/dL" xsi:type="PQ" value="0.1" /> <referenceRange> <observationRange> <text>0.0-0.3< /text> </observationRange> </referenceRange> </ observation> </component> </organizer> </entry> <entry> <organizer moodCode="EVN" classCode="BATTERY"> <templateId root= "216.840.1.726626.10..22.4.1" /> <id nullFlavor="NA" /> <code codeSystem="local" code="LIP" displayName="LIPASE" /> <statusCode code= "completed" /> <component> <observation moodCode="EVN" classCode= "OBS"> <templateId root="16.840.1.468452.10...4.2" /> < id nullFlavor="NA" /> <code codeSystem="local" code="LIP" displayName= "LIPASE" /> <statusCode code="completed" /> <effectiveTime value="291422432052" /> <value unit="Units/L" xsi:type="PQ" value="124 " /> <referenceRange> <observationRange> <text> 73-393</text> </observationRange> </referenceRange> < /observation> </component> </organizer> </entry> <entry> < organizer moodCode="EVN" classCode="BATTERY"> <templateId root= "16.840.1.155673.10...4.1" /> <id nullFlavor="NA" /> <code codeSystem="local" code="HELICOSCR" displayName="AB H.PYLORI SCREEN" /> < statusCode code="completed" /> <component> <observation moodCode= "EVN" classCode="OBS"> <templateId root="16.840.1.271873.10..22.4.2 " /> <id nullFlavor="NA" /> <code codeSystem="local" code= "HELICOSCR" displayName="AB H.PYLORI SCREEN" /> <statusCode code= "completed" /> <effectiveTime value="614058134628" /> <value unit="" xsi:type="PQ" value="NEGATIVE" /> <referenceRange> < observationRange> <text>NEGATIVE</text> </ observationRange> </referenceRange> </observation> </ component> </organizer> </entry> <entry> <organizer moodCode="EVN" classCode="BATTERY"> <templateId root="05.02.840.1.561500.10...4.1" /> <id nullFlavor="NA" /> <code codeSystem="local" code="PREGU" displayName="UR TEST" /> <statusCode code="completed" /> < component> <observation moodCode="EVN" classCode="OBS"> < templateId root="840.1.156614.01.03.22.4.2" /> <id nullFlavor="NA " /> <code codeSystem="local" code="PREGU" displayName="UR TEST" /> <statusCode code="completed" /> <effectiveTime value= "986379394203" /> <value unit="" xsi:type="PQ" value="NEGATIVE" /> <referenceRange> <observationRange> <text>NEGATIVE </text> </observationRange> </referenceRange> </ observation> </component> </organizer> </entry> <entry> <organizer moodCode="EVN" classCode="BATTERY"> <templateId root= "05.02.840.1.126157.01.03.22.4.1" /> <id nullFlavor="NA" /> <code codeSystem="local" code="UAMICRO" displayName="UA MICROSCOPIC" /> < statusCode code="completed" /> <component> <observation moodCode= "EVN" classCode="OBS"> <templateId root="05.02.840.1.421865.10..22.4.2 " /> <id nullFlavor="NA" /> <code codeSystem="local" code= "BACU" displayName="UA BACTERIA" /> <statusCode code="completed" /> <effectiveTime value="728199514287" /> <value unit="" xsi:type= "PQ" value="5+" /> <interpretationCode codeSystem="local" code="*" /> <referenceRange> <observationRange> <text> NEGATIVE</text> </observationRange> </referenceRange> </observation> </component> <component> <observation moodCode ="EVN" classCode="OBS"> <templateId root= "16.840.1.123816.10..4.2" /> <id nullFlavor="NA" /> < code codeSystem="local" code="EPIU" displayName="UA EPITHELIAL CELLS" /> <statusCode code="completed" /> <effectiveTime value="594659272070" /> <value unit="epi/hpf" xsi:type="PQ" value="1+" /> < referenceRange> <observationRange> <text>0 - 1+</text> </observationRange> </referenceRange> </observation> </component> <component> <observation moodCode="EVN" classCode ="OBS"> <templateId root="05.02.840.1.564208.22.4.2" /> < id nullFlavor="NA" /> <code codeSystem="local" code="RBCU" displayName= "UA RBC" /> <statusCode code="completed" /> <effectiveTime value="123558287170" /> <value unit="rbc/hpf" xsi:type="PQ" value="0-3 " /> <referenceRange> <observationRange> <text> 0 - 3</text> </observationRange> </referenceRange> </ observation> </component> <component> <observation moodCode= "EVN" classCode="OBS"> <templateId root="05.02.840.1.479767.01.03.22.4.2 " /> <id nullFlavor="NA" /> <code codeSystem="local" code= "UAVOL" displayName="UA VOLUME FOR EXAM" /> <statusCode code="completed " /> <effectiveTime value="191428069679" /> <value unit="mL" xsi:type="PQ" value="12.0" /> <referenceRange> < observationRange> <text>(12mL STD)</text> </ observationRange> </referenceRange> </observation> </ component> <component> <observation moodCode="EVN" classCode="OBS"> <templateId root="16.840.1.713491.01.03.224.2" /> <id nullFlavor="NA" /> <code codeSystem="local" code="WBCU" displayName=" UA WBC" /> <statusCode code="completed" /> <effectiveTime value="281074715993" /> <value unit="wbc/hpf" xsi:type="PQ" value="0-1 " /> <referenceRange> <observationRange> <text> 0 - 5</text> </observationRange> </referenceRange> </ observation> </component> </organizer> </entry> <entry> <organizer moodCode="EVN" classCode="BATTERY"> <templateId root= "05.02.840.1.168703.01.03.22.4.1" /> <id nullFlavor="NA" /> <code codeSystem="local" code="UC" displayName="URINE CULTURE" /> <statusCode code="completed" /> <component> <observation moodCode="EVN" classCode="OBS"> <templateId root="16.840.1.109938.10.4.2" /> <id nullFlavor="NA" /> <code codeSystem="local" code="UNC" displayName="Uncategorized" /> <statusCode code="completed" /> <effectiveTime value="621474418115" /> <value xsi:type="ST" value="& lt;pre><b>URINE CULTURE</b> See [...] [facility]ITE[facility] >=[address] [facility] - [phone] [place] [address]</pre>" /> <referenceRange> < observationRange> <text /> </observationRange> </referenceRange> </observation> </component> </organizer> </ entry> <entry> <organizer moodCode="EVN" classCode="BATTERY"> < templateId root="2.16.840.1.857968.10...4.1" /> <id nullFlavor="NA" /> <code codeSystem="local" code="PREG" displayName=" TEST, SERUM" / > <statusCode code="completed" /> <component> <observation moodCode="EVN" classCode="OBS"> <templateId root= "2.16.840.1.221976.10..22.4.2" /> <id nullFlavor="NA" /> < code codeSystem="local" code="PREG" displayName=" TEST, SERUM" /> <statusCode code="completed" /> <effectiveTime value="537912579693 " /> <value unit="" xsi:type="PQ" value="NEGATIVE" /> < referenceRange> <observationRange> <text>NEGATIVE</text > </observationRange> </referenceRange> </observation > </component> </organizer> </entry> <entry> <organizer moodCode= "EVN" classCode="BATTERY"> <templateId root="16.840.1.648020.10...4.1 " /> <id nullFlavor="NA" /> <code codeSystem="local" code="iCHEM8" displayName="CHEM/HEM PROFILE-BEDSIDE" /> <statusCode code="completed" /> <component> <observation moodCode="EVN" classCode="OBS"> < templateId root="16.840.1.715547...4.2" /> <id nullFlavor="NA " /> <code codeSystem="local" code="K" displayName="POTASSIUM" /> <statusCode code="completed" /> <effectiveTime value="393855651238 " /> <value unit="mmol/L" xsi:type="PQ" value="3.3" /> < interpretationCode codeSystem="local" code="*" /> <referenceRange> <observationRange> <text>3.5-5.3</text> </ observationRange> </referenceRange> </observation> </ component> <component> <observation moodCode="EVN" classCode="OBS"> <templateId root="05.02.840.1.960403.01.03.22.4.2" /> <id nullFlavor="NA" /> <code codeSystem="local" code="CMETHOD" displayName= "METHOD" /> <statusCode code="completed" /> <effectiveTime value="250836002703" /> <value unit="" xsi:type="PQ" value="Bedside" / > <referenceRange> <observationRange> <text /> </observationRange> </referenceRange> </observation > </component> <component> <observation moodCode="EVN" classCode="OBS"> <templateId root="05.02.840.1.934175.01.03.22.4.2" /> <id nullFlavor="NA" /> <code codeSystem="local" code="GAP" displayName="ANION GAP" /> <statusCode code="completed" /> < effectiveTime value="" /> <value unit="mmol/L" xsi:type="PQ " value="18" /> <referenceRange> <observationRange> <text>10-20</text> </observationRange> </ referenceRange> </observation> </component> <component> <observation moodCode="EVN" classCode="OBS"> <templateId root= "05.02.840.1.213855.01.03.22.4.2" /> <id nullFlavor="NA" /> < code codeSystem="local" code="HMETHOD" displayName="METHOD" /> < statusCode code="completed" /> <effectiveTime value="702028938897" /> <value unit="" xsi:type="PQ" value="Bedside" /> < referenceRange> <observationRange> <text /> < /observationRange> </referenceRange> </observation> </ component> <component> <observation moodCode="EVN" classCode="OBS"> <templateId root="05.02.840.1.958009...22.4.2" /> <id nullFlavor="NA" /> <code codeSystem="local" code="GLU" displayName= "GLUCOSE" /> <statusCode code="completed" /> <effectiveTime value="548396687047" /> <value unit="mg/dL" xsi:type="PQ" value="91" / > <referenceRange> <observationRange> <text>70- 99</text> </observationRange> </referenceRange> </ observation> </component> <component> <observation moodCode= "EVN" classCode="OBS"> <templateId root="216.840.1.321619.10..4.2 " /> <id nullFlavor="NA" /> <code codeSystem="local" code="BUN " displayName="BLOOD UREA NITROGEN" /> <statusCode code="completed" /> <effectiveTime value="" /> <value unit="mg/dL" xsi:type="PQ" value="11" /> <referenceRange> < observationRange> <text>7-20</text> </observationRange> </referenceRange> </observation> </component> < component> <observation moodCode="EVN" classCode="OBS"> < templateId root="16.840.1.484912.10..4.2" /> <id nullFlavor="NA " /> <code codeSystem="local" code="CREAT" displayName="CREATININE" /> <statusCode code="completed" /> <effectiveTime value= "481403633634" /> <value unit="mg/dL" xsi:type="PQ" value="0.7" /> <referenceRange> <observationRange> <text>0.6-1.0< /text> </observationRange> </referenceRange> </ observation> </component> <component> <observation moodCode= "EVN" classCode="OBS"> <templateId root="216.840.1.329910.10...4.2 " /> <id nullFlavor="NA" /> <code codeSystem="local" code= "HGBT" displayName="HEMOGLOBIN" /> <statusCode code="completed" /> <effectiveTime value="630034198290" /> <value unit="gm/dL" xsi: type="PQ" value="12.6" /> <referenceRange> <observationRange > <text>12.0-16.0</text> </observationRange> </ referenceRange> </observation> </component> <component> <observation moodCode="EVN" classCode="OBS"> <templateId root= "2.16.840.1.049009.10..22.4.2" /> <id nullFlavor="NA" /> < code codeSystem="local" code="HCTT" displayName="HEMATOCRIT" /> < statusCode code="completed" /> <effectiveTime value="570540471270" /> <value unit="%" xsi:type="PQ" value="37.0" /> < referenceRange> <observationRange> <text>37.0-47.0</text > </observationRange> </referenceRange> </observation > </component> <component> <observation moodCode="EVN" classCode="OBS"> <templateId root="2.16.840.1.320844.10..22.4.2" /> <id nullFlavor="NA" /> <code codeSystem="local" code="NA" displayName="SODIUM" /> <statusCode code="completed" /> < effectiveTime value="024106586715" /> <value unit="mmol/L" xsi:type="PQ " value="140" /> <referenceRange> <observationRange> <text>135-148</text> </observationRange> </ referenceRange> </observation> </component> <component> <observation moodCode="EVN" classCode="OBS"> <templateId root= "16.840.1.687406.10..22.4.2" /> <id nullFlavor="NA" /> < code codeSystem="local" code="CL" displayName="CHLORIDE" /> < statusCode code="completed" /> <effectiveTime value="" /> <value unit="mmol/L" xsi:type="PQ" value="106" /> < referenceRange> <observationRange> <text>98-110</text> </observationRange> </referenceRange> </observation> </component> <component> <observation moodCode="EVN" classCode ="OBS"> <templateId root="05.02.840.1.927242.10...4.2" /> < id nullFlavor="NA" /> <code codeSystem="local" code="CO2" displayName= "CARBON DIOXIDE" /> <statusCode code="completed" /> < effectiveTime value="" /> <value unit="mmol/L" xsi:type="PQ " value="20" /> <interpretationCode codeSystem="local" code="*" /> <referenceRange> <observationRange> <text>21-32</ text> </observationRange> </referenceRange> </ observation> </component> <component> <observation moodCode= "EVN" classCode="OBS"> <templateId root="05.02.840.1.496260.10..22.4.2 " /> <id nullFlavor="NA" /> <code codeSystem="local" code= "CAION" displayName="CALCIUM IONIZED" /> <statusCode code="completed" / > <effectiveTime value="" /> <value unit="mg/dL" xsi:type="PQ" value="4.9" /> <referenceRange> < observationRange> <text>4.5-5.3</text> </ observationRange> </referenceRange> </observation> </ component> </organizer> </entry> <entry> <organizer moodCode="EVN" classCode="BATTERY"> <templateId root="2.16.840.1.775298.10..22.4.1" /> <id nullFlavor="NA" /> <code codeSystem="local" code="UC" displayName= "URINE CULTURE" /> <statusCode code="completed" /> <component> <observation moodCode="EVN" classCode="OBS"> <templateId root= "2.16.840.1.376646.10...4.2" /> <id nullFlavor="NA" /> < code codeSystem="local" code="MB" displayName="Microbiology" /> < statusCode code="completed" /> <effectiveTime value="747020816141" /> <value xsi:type="ST" value="<pre><b>URINE CULTURE</b> See BelowURINE CULTURE(F) Kasandra Date/Time: 04/17/2014 : Suzie Date/Time: 04/19/2014 07:19SOURCE: URINESPEC DESC: CLEAN CATCHTREATMENT OF ASYMPTOMATIC BACTERIURIA IS NOT USUALLYCLINICALLY INDICATED.MIXED GRAM POSITIVE?[facility] [id number] [place] [address]</pre>" /> <referenceRange> <observationRange> <text /> </observationRange> </referenceRange> </observation> </component> </ organizer> </entry> <entry> <organizer moodCode="EVN" classCode="BATTERY"> <templateId root="2.16.840.1.608438.10..22.4.1" /> <id nullFlavor= "NA" /> <code codeSystem="local" code="UA" displayName="URINALYSIS, ROUTINE " /> <statusCode code="completed" /> <component> <observation moodCode="EVN" classCode="OBS"> <templateId root= "216.840.1.241369.10..22.4.2" /> <id nullFlavor="NA" /> < code codeSystem="local" code="LEUESU" displayName="UA LEUKOCYTE ESTERASE DIPSTICK" /> <statusCode code="completed" /> <effectiveTime value="" /> <value unit="" xsi:type="PQ" value="NEGATIVE" / > <referenceRange> <observationRange> <text> NEGATIVE</text> </observationRange> </referenceRange> </observation> </component> <component> <observation moodCode ="EVN" classCode="OBS"> <templateId root= "216.840.1.009644.10..4.2" /> <id nullFlavor="NA" /> < code codeSystem="local" code="NITRIU" displayName="UA NITRITE DIPSTICK" /> <statusCode code="completed" /> <effectiveTime value=" " /> <value unit="" xsi:type="PQ" value="POSITIVE" /> < interpretationCode codeSystem="local" code="*" /> <referenceRange> <observationRange> <text>NEGATIVE</text> </ observationRange> </referenceRange> </observation> </ component> <component> <observation moodCode="EVN" classCode="OBS"> <templateId root="216.840.1.134362.10...4.2" /> <id nullFlavor="NA" /> <code codeSystem="local" code="PROTEIU" displayName= "UA PROTEIN DIPSTICK" /> <statusCode code="completed" /> < effectiveTime value="" /> <value unit="" xsi:type="PQ" value="NEGATIVE" /> <referenceRange> <observationRange> <text>NEGATIVE</text> </observationRange> </ referenceRange> </observation> </component> <component> <observation moodCode="EVN" classCode="OBS"> <templateId root= "16.840.1.632506.10..4.2" /> <id nullFlavor="NA" /> < code codeSystem="local" code="DGLUU" displayName="UA GLUCOSE DIPSTICK" /> <statusCode code="completed" /> <effectiveTime value=" " /> <value unit="" xsi:type="PQ" value="NEGATIVE" /> < referenceRange> <observationRange> <text>NEGATIVE</text > </observationRange> </referenceRange> </observation > </component> <component> <observation moodCode="EVN" classCode="OBS"> <templateId root="05.02.840.1.677885.10.4.2" /> <id nullFlavor="NA" /> <code codeSystem="local" code="KETONU" displayName="UA KETONE DIPSTICK" /> <statusCode code="completed" /> <effectiveTime value="" /> <value unit="" xsi:type= "PQ" value="NEGATIVE" /> <referenceRange> <observationRange > <text>NEGATIVE</text> </observationRange> </ referenceRange> </observation> </component> <component> <observation moodCode="EVN" classCode="OBS"> <templateId root= "05.02.840.1.063073.10.4.2" /> <id nullFlavor="NA" /> < code codeSystem="local" code="UROBILU" displayName="UA UROBILINOGEN DIPSTICK" / > <statusCode code="completed" /> <effectiveTime value= "" /> <value unit="" xsi:type="PQ" value="NORMAL" /> <referenceRange> <observationRange> <text>NORMAL</ text> </observationRange> </referenceRange> </ observation> </component> <component> <observation moodCode= "EVN" classCode="OBS"> <templateId root="216.840.1.181169.01.03.22.4.2 " /> <id nullFlavor="NA" /> <code codeSystem="local" code= "BILU" displayName="UA BILIRUBIN DIPSTICK" /> <statusCode code= "completed" /> <effectiveTime value="" /> <value unit="" xsi:type="PQ" value="NEGATIVE" /> <referenceRange> < observationRange> <text>NEGATIVE</text> </ observationRange> </referenceRange> </observation> </ component> <component> <observation moodCode="EVN" classCode="OBS"> <templateId root="16.840.1.253494.01.03.22.4.2" /> <id nullFlavor="NA" /> <code codeSystem="local" code="CARITO" displayName="UA BLOOD DIPSTICK" /> <statusCode code="completed" /> < effectiveTime value="" /> <value unit="" xsi:type="PQ" value="NEGATIVE" /> <referenceRange> <observationRange> <text>NEGATIVE</text> </observationRange> </ referenceRange> </observation> </component> <component> <observation moodCode="EVN" classCode="OBS"> <templateId root= "16.840.1.696624...4.2" /> <id nullFlavor="NA" /> < code codeSystem="local" code="SPGRU" displayName="UA SPECIFIC GRAVITY" /> <statusCode code="completed" /> <effectiveTime value=" " /> <value unit="" xsi:type="PQ" value="1.025" /> < referenceRange> <observationRange> <text>1.015-1.025</ text> </observationRange> </referenceRange> </ observation> </component> <component> <observation moodCode= "EVN" classCode="OBS"> <templateId root="05.02.840.1.165024.10.4.2 " /> <id nullFlavor="NA" /> <code codeSystem="local" code="SUSANA " displayName="UR PH" /> <statusCode code="completed" /> < effectiveTime value="" /> <value unit="" xsi:type="PQ" value="5.5" /> <referenceRange> <observationRange> <text>5.0-7.0</text> </observationRange> </ referenceRange> </observation> </component> </organizer> </entry > <entry> <organizer moodCode="EVN" classCode="BATTERY"> <templateId root="05.02.840.1.149844.01.03.22.4.1" /> <id nullFlavor="NA" /> <code codeSystem="local" code="UAMICRO" displayName="UA MICROSCOPIC" /> < statusCode code="completed" /> <component> <observation moodCode= "EVN" classCode="OBS"> <templateId root="05.02.840.1.966132.01.03.22.4.2 " /> <id nullFlavor="NA" /> <code codeSystem="local" code= "BACU" displayName="UA BACTERIA" /> <statusCode code="completed" /> <effectiveTime value="" /> <value unit="" xsi:type= "PQ" value="3+" /> <interpretationCode codeSystem="local" code="*" /> <referenceRange> <observationRange> <text> NEGATIVE</text> </observationRange> </referenceRange> </observation> </component> <component> <observation moodCode ="EVN" classCode="OBS"> <templateId root= "840.1.977718.01.03.22.4.2" /> <id nullFlavor="NA" /> < code codeSystem="local" code="EPIU" displayName="UA EPITHELIAL CELLS" /> <statusCode code="completed" /> <effectiveTime value="" /> <value unit="epi/hpf" xsi:type="PQ" value="4+" /> < interpretationCode codeSystem="local" code="*" /> <referenceRange> <observationRange> <text>0 - 1+</text> </ observationRange> </referenceRange> </observation> </ component> <component> <observation moodCode="EVN" classCode="OBS"> <templateId root="840.1.688574.10.4.2" /> <id nullFlavor="NA" /> <code codeSystem="local" code="MUCUSU" displayName= "UA MUCUS" /> <statusCode code="completed" /> <effectiveTime value="" /> <value unit="" xsi:type="PQ" value="3+" /> <interpretationCode codeSystem="local" code="*" /> < referenceRange> <observationRange> <text>NEG TO 1+</text > </observationRange> </referenceRange> </observation > </component> <component> <observation moodCode="EVN" classCode="OBS"> <templateId root=".1.910212.10..22.4.2" /> <id nullFlavor="NA" /> <code codeSystem="local" code="RBCU" displayName="UA RBC" /> <statusCode code="completed" /> < effectiveTime value="" /> <value unit="rbc/hpf" xsi:type= "PQ" value="0-3" /> <referenceRange> <observationRange> <text>0 - 3</text> </observationRange> </ referenceRange> </observation> </component> <component> <observation moodCode="EVN" classCode="OBS"> <templateId root= "216.840.1.096043.10..4.2" /> <id nullFlavor="NA" /> < code codeSystem="local" code="UAVOL" displayName="UA VOLUME FOR EXAM" /> <statusCode code="completed" /> <effectiveTime value="" /> <value unit="mL" xsi:type="PQ" value="12.0" /> < referenceRange> <observationRange> <text>(12mL STD)</ text> </observationRange> </referenceRange> </ observation> </component> <component> <observation moodCode= "EVN" classCode="OBS"> <templateId root="216.840.1.630450....4.2 " /> <id nullFlavor="NA" /> <code codeSystem="local" code= "WBCU" displayName="UA WBC" /> <statusCode code="completed" /> <effectiveTime value="" /> <value unit="wbc/hpf" xsi:type ="PQ" value="5-10" /> <interpretationCode codeSystem="local" code="*" / > <referenceRange> <observationRange> <text>0 - 5</text> </observationRange> </referenceRange> </ observation> </component> </organizer> </entry> <entry> <organizer moodCode="EVN" classCode="BATTERY"> <templateId root= "16.840.1.225429.10...4.1" /> <id nullFlavor="NA" /> <code codeSystem="local" code="PREGU" displayName="UR TEST" /> < statusCode code="completed" /> <component> <observation moodCode= "EVN" classCode="OBS"> <templateId root="05.02.840.1.302186.01.03.22.4.2 " /> <id nullFlavor="NA" /> <code codeSystem="local" code= "PREGU" displayName="UR TEST" /> <statusCode code="completed " /> <effectiveTime value="255556927808" /> <value unit="" xsi :type="PQ" value="NEGATIVE" /> <referenceRange> < observationRange> <text>NEGATIVE</text> </ observationRange> </referenceRange> </observation> </ component> </organizer> </entry> <entry> <organizer moodCode="EVN" classCode="BATTERY"> <templateId root="05.02.840.1.848512.01.03.22.4.1" /> <id nullFlavor="NA" /> <code codeSystem="local" code="PREG" displayName=" TEST, SERUM" /> <statusCode code="completed" /> <component> <observation moodCode="EVN" classCode="OBS"> < templateId root="05.02.840.1.196727.10..22.4.2" /> <id nullFlavor="NA " /> <code codeSystem="local" code="PREG" displayName=" TEST, SERUM" /> <statusCode code="completed" /> <effectiveTime value ="[id number]" /> <value unit="" xsi:type="PQ" value="NEGATIVE" /> <referenceRange> <observationRange> <text> NEGATIVE</text> </observationRange> </referenceRange> </observation> </component> </organizer> </entry> <entry> < organizer moodCode="EVN" classCode="BATTERY"> <templateId root= "2.16.840.1.360768.10.20.22.4.1" /> <id nullFlavor="NA" /> <code codeSystem="local" code="GRAMM" displayName="GRAM STAIN" /> <statusCode code="completed" /> <component> <observation moodCode="EVN" classCode="OBS"> <templateId root="2.16.840.1.438752.10.20.22.4.2" /> <id nullFlavor="NA" /> <code codeSystem="local" code="MB" displayName="Microbiology" /> <statusCode code="completed" /> <effectiveTime value="967833212935" /> <value xsi:type="ST" value="<pre ><b>GRAM STAIN - MISCELLANEOUS CULTURE</b> See Below: COLONY COUNT ONLYGRAM STAIN(F) Kasandra Date/Time: 09/21/2014 17:08 Suzie Date/Time: 09/24/2014 11:13SOURCE: ASPIRATESPEC DESC: DUODENALTNPTEST NOT PERFORMED[address] [address]L[place] BelowMISCELLANEOUS CULTURE(F) Kasandra Date/Time: 09/21/2014 17:08 Suzie Date/Time: 09/24/2014 11:13SOURCE: [facility]IRATESPEC DESC: DUODENALCULTURE REPORT>100,000 CFU/ML OF GRAMNEGATIVE RODSJEFFREY VILLE [address] [place] [address]</pre>" /> < referenceRange> <observationRange> <text /> < /observationRange> </referenceRange> </observation> </ component> </organizer> </entry> <entry> <organizer moodCode="EVN" classCode="BATTERY"> <templateId root="216.840.1.952365.10..22.4.1" /> <id nullFlavor="NA" /> <code codeSystem="local" code="UA" displayName= "URINALYSIS, ROUTINE" /> <statusCode code="completed" /> <component> <observation moodCode="EVN" classCode="OBS"> <templateId root= "216.840.1.673011.10...4.2" /> <id nullFlavor="NA" /> < code codeSystem="local" code="LEUESU" displayName="UA LEUKOCYTE ESTERASE DIPSTICK" /> <statusCode code="completed" /> <effectiveTime value="661287675773" /> <value unit="" xsi:type="PQ" value="NEGATIVE" / > <referenceRange> <observationRange> <text> NEGATIVE</text> </observationRange> </referenceRange> </observation> </component> <component> <observation moodCode ="EVN" classCode="OBS"> <templateId root= "216.840.1.421654.10...4.2" /> <id nullFlavor="NA" /> < code codeSystem="local" code="NITRIU" displayName="UA NITRITE DIPSTICK" /> <statusCode code="completed" /> <effectiveTime value="804775509589 " /> <value unit="" xsi:type="PQ" value="POSITIVE" /> < interpretationCode codeSystem="local" code="*" /> <referenceRange> <observationRange> <text>NEGATIVE</text> </ observationRange> </referenceRange> </observation> </ component> <component> <observation moodCode="EVN" classCode="OBS"> <templateId root="216.840.1.778485.10..22.4.2" /> <id nullFlavor="NA" /> <code codeSystem="local" code="PROTEIU" displayName= "UA PROTEIN DIPSTICK" /> <statusCode code="completed" /> < effectiveTime value="547017472180" /> <value unit="" xsi:type="PQ" value="NEGATIVE" /> <referenceRange> <observationRange> <text>NEGATIVE</text> </observationRange> </ referenceRange> </observation> </component> <component> <observation moodCode="EVN" classCode="OBS"> <templateId root= "216.840.1.303345.10..4.2" /> <id nullFlavor="NA" /> < code codeSystem="local" code="DGLUU" displayName="UA GLUCOSE DIPSTICK" /> <statusCode code="completed" /> <effectiveTime value=" " /> <value unit="" xsi:type="PQ" value="NEGATIVE" /> < referenceRange> <observationRange> <text>NEGATIVE</text > </observationRange> </referenceRange> </observation > </component> <component> <observation moodCode="EVN" classCode="OBS"> <templateId root="16.840.1.507478.10..4.2" /> <id nullFlavor="NA" /> <code codeSystem="local" code="KETONU" displayName="UA KETONE DIPSTICK" /> <statusCode code="completed" /> <effectiveTime value="867082568236" /> <value unit="" xsi:type= "PQ" value="NEGATIVE" /> <referenceRange> <observationRange > <text>NEGATIVE</text> </observationRange> </ referenceRange> </observation> </component> <component> <observation moodCode="EVN" classCode="OBS"> <templateId root= "16.840.1.067523.01.03.22.4.2" /> <id nullFlavor="NA" /> < code codeSystem="local" code="UROBILU" displayName="UA UROBILINOGEN DIPSTICK" / > <statusCode code="completed" /> <effectiveTime value= "828506218308" /> <value unit="" xsi:type="PQ" value="NORMAL" /> <referenceRange> <observationRange> <text>NORMAL</ text> </observationRange> </referenceRange> </ observation> </component> <component> <observation moodCode= "EVN" classCode="OBS"> <templateId root="05.02.840.1.271559.01.03.22.4.2 " /> <id nullFlavor="NA" /> <code codeSystem="local" code= "BILU" displayName="UA BILIRUBIN DIPSTICK" /> <statusCode code= "completed" /> <effectiveTime value="158687196804" /> <value unit="" xsi:type="PQ" value="NEGATIVE" /> <referenceRange> < observationRange> <text>NEGATIVE</text> </ observationRange> </referenceRange> </observation> </ component> <component> <observation moodCode="EVN" classCode="OBS"> <templateId root="16.840.1.643604.01.03.22.4.2" /> <id nullFlavor="NA" /> <code codeSystem="local" code="CARITO" displayName="UA BLOOD DIPSTICK" /> <statusCode code="completed" /> < effectiveTime value="" /> <value unit="" xsi:type="PQ" value="1+" /> <interpretationCode codeSystem="local" code="*" /> <referenceRange> <observationRange> <text>NEGATIVE</ text> </observationRange> </referenceRange> </ observation> </component> <component> <observation moodCode= "EVN" classCode="OBS"> <templateId root="216.840.1.035550.01.03.22.4.2 " /> <id nullFlavor="NA" /> <code codeSystem="local" code= "SPGRU" displayName="UA SPECIFIC GRAVITY" /> <statusCode code= "completed" /> <effectiveTime value="618865971249" /> <value unit="" xsi:type="PQ" value=">=1.030" /> <interpretationCode codeSystem="local" code="*" /> <referenceRange> < observationRange> <text>1.015-1.025</text> </ observationRange> </referenceRange> </observation> </ component> <component> <observation moodCode="EVN" classCode="OBS"> <templateId root="16.840.1.728292.01.03.22.4.2" /> <id nullFlavor="NA" /> <code codeSystem="local" code="SUSANA" displayName="UR PH" /> <statusCode code="completed" /> <effectiveTime value= "059518038105" /> <value unit="" xsi:type="PQ" value="5.0" /> <referenceRange> <observationRange> <text>5.0-7.0</text > </observationRange> </referenceRange> </observation > </component> <component> <observation moodCode="EVN" classCode="OBS"> <templateId root="216.840.1.333373.01.03.22.4.2" /> <id nullFlavor="NA" /> <code codeSystem="local" code="MB" displayName="Microbiology" /> <statusCode code="completed" /> <effectiveTime value="349579487615" /> <value unit="" xsi:type="PQ" value="" /> <referenceRange> <observationRange> <text /> </observationRange> </referenceRange> </ observation> </component> </organizer> </entry> <entry> <organizer moodCode="EVN" classCode="BATTERY"> <templateId root= "16.840.1.144727.01.03.22.4.1" /> <id nullFlavor="NA" /> <code codeSystem="local" code="UAMICRO" displayName="UA MICROSCOPIC" /> < statusCode code="completed" /> <component> <observation moodCode= "EVN" classCode="OBS"> <templateId root="05.02.840.1.596767.01.03.22.4.2 " /> <id nullFlavor="NA" /> <code codeSystem="local" code= "BACU" displayName="UA BACTERIA" /> <statusCode code="completed" /> <effectiveTime value="839935933271" /> <value unit="" xsi:type= "PQ" value="3+" /> <interpretationCode codeSystem="local" code="*" /> <referenceRange> <observationRange> <text> NEGATIVE</text> </observationRange> </referenceRange> </observation> </component> <component> <observation moodCode ="EVN" classCode="OBS"> <templateId root= "05.02.840.1.738809.01.03.22.4.2" /> <id nullFlavor="NA" /> < code codeSystem="local" code="EPIU" displayName="UA EPITHELIAL CELLS" /> <statusCode code="completed" /> <effectiveTime value="793666699759" /> <value unit="epi/hpf" xsi:type="PQ" value="2+" /> < interpretationCode codeSystem="local" code="*" /> <referenceRange> <observationRange> <text>0 - 1+</text> </ observationRange> </referenceRange> </observation> </ component> <component> <observation moodCode="EVN" classCode="OBS"> <templateId root="16.840.1.344429.10...4.2" /> <id nullFlavor="NA" /> <code codeSystem="local" code="MUCUSU" displayName= "UA MUCUS" /> <statusCode code="completed" /> <effectiveTime value="635900671768" /> <value unit="" xsi:type="PQ" value="1+" /> <referenceRange> <observationRange> <text>NEG TO 1 +</text> </observationRange> </referenceRange> </ observation> </component> <component> <observation moodCode= "EVN" classCode="OBS"> <templateId root="16.840.1.287221.10..22.4.2 " /> <id nullFlavor="NA" /> <code codeSystem="local" code= "RBCU" displayName="UA RBC" /> <statusCode code="completed" /> <effectiveTime value="745808286946" /> <value unit="rbc/hpf" xsi:type ="PQ" value="0-3" /> <referenceRange> <observationRange> <text>0 - 3</text> </observationRange> </ referenceRange> </observation> </component> <component> <observation moodCode="EVN" classCode="OBS"> <templateId root= "16.840.1.812007.01.03.22.4.2" /> <id nullFlavor="NA" /> < code codeSystem="local" code="UAVOL" displayName="UA VOLUME FOR EXAM" /> <statusCode code="completed" /> <effectiveTime value="237343490723" /> <value unit="mL" xsi:type="PQ" value="12.0" /> < referenceRange> <observationRange> <text>(12mL STD)</ text> </observationRange> </referenceRange> </ observation> </component> <component> <observation moodCode= "EVN" classCode="OBS"> <templateId root="840.1.685029.01.03.224.2 " /> <id nullFlavor="NA" /> <code codeSystem="local" code= "WBCU" displayName="UA WBC" /> <statusCode code="completed" /> <effectiveTime value="624177092959" /> <value unit="wbc/hpf" xsi:type ="PQ" value="2-5" /> <referenceRange> <observationRange> <text>0 - 5</text> </observationRange> </ referenceRange> </observation> </component> </organizer> </entry > <entry> <organizer moodCode="EVN" classCode="BATTERY"> <templateId root="840.1.668583.01.03.22.4.1" /> <id nullFlavor="NA" /> <code codeSystem="local" code="CBCD" displayName="CBC W/DIFF" /> <statusCode code ="completed" /> <component> <observation moodCode="EVN" classCode= "OBS"> <templateId root="05.02.840.1.465156.01.03.22.4.2" /> < id nullFlavor="NA" /> <code codeSystem="local" code="EO#" displayName= "EOSINOPHIL #" /> <statusCode code="completed" /> < effectiveTime value="774074624588" /> <value unit="k/cumm" xsi:type="PQ " value="0.1" /> <referenceRange> <observationRange> <text>0.1-0.5</text> </observationRange> </ referenceRange> </observation> </component> <component> <observation moodCode="EVN" classCode="OBS"> <templateId root= "216.840.1.962939.10..22.4.2" /> <id nullFlavor="NA" /> < code codeSystem="local" code="EO%" displayName="EOSINOPHIL %" /> <statusCode code="completed" /> <effectiveTime value="182945669636" /> <value unit="%" xsi:type="PQ" value="1" /> < interpretationCode codeSystem="local" code="*" /> <referenceRange> <observationRange> <text>2-4</text> </ observationRange> </referenceRange> </observation> </ component> <component> <observation moodCode="EVN" classCode="OBS"> <templateId root="216.840.1.650262.10..22.4.2" /> <id nullFlavor="NA" /> <code codeSystem="local" code="GR#" displayName= "GRANULOCYTE #" /> <statusCode code="completed" /> < effectiveTime value="048899184253" /> <value unit="k/cumm" xsi:type="PQ " value="3.9" /> <referenceRange> <observationRange> <text>2.0-9.0</text> </observationRange> </ referenceRange> </observation> </component> <component> <observation moodCode="EVN" classCode="OBS"> <templateId root= "216.840.1.339320.10.22.4.2" /> <id nullFlavor="NA" /> < code codeSystem="local" code="GR%" displayName="GRANULOCYTE %" /> <statusCode code="completed" /> <effectiveTime value="872503953792 " /> <value unit="%" xsi:type="PQ" value="67" /> < referenceRange> <observationRange> <text>50-75</text> </observationRange> </referenceRange> </observation> </component> <component> <observation moodCode="EVN" classCode= "OBS"> <templateId root="16.840.1.846498.10.4.2" /> < id nullFlavor="NA" /> <code codeSystem="local" code="LY#" displayName= "LYMPHOCYTE #" /> <statusCode code="completed" /> < effectiveTime value="534318339022" /> <value unit="k/cumm" xsi:type="PQ " value="1.2" /> <referenceRange> <observationRange> <text>1.0-4.0</text> </observationRange> </ referenceRange> </observation> </component> <component> <observation moodCode="EVN" classCode="OBS"> <templateId root= "16.840.1.280273.10.2022.4.2" /> <id nullFlavor="NA" /> < code codeSystem="local" code="LY%" displayName="LYMPHOCYTE %" /> <statusCode code="completed" /> <effectiveTime value="817727509689" /> <value unit="%" xsi:type="PQ" value="20" /> < referenceRange> <observationRange> <text>20-30</text> </observationRange> </referenceRange> </observation> </component> <component> <observation moodCode="EVN" classCode= "OBS"> <templateId root="16.840.1.126035.10.20.22.4.2" /> < id nullFlavor="NA" /> <code codeSystem="local" code="MCH" displayName= "MEAN CELL HGB" /> <statusCode code="completed" /> < effectiveTime value="311785017012" /> <value unit="pg" xsi:type="PQ" value="29.5" /> <referenceRange> <observationRange> <text>27.0-33.0</text> </observationRange> </ referenceRange> </observation> </component> <component> <observation moodCode="EVN" classCode="OBS"> <templateId root= "840.1.507999.10.20.22.4.2" /> <id nullFlavor="NA" /> < code codeSystem="local" code="MCHC" displayName="MEAN CELL HGB CONCENTRATION" / > <statusCode code="completed" /> <effectiveTime value= "102676493715" /> <value unit="g/dL" xsi:type="PQ" value="33.6" /> <referenceRange> <observationRange> <text>32.0- 37.0</text> </observationRange> </referenceRange> </ observation> </component> <component> <observation moodCode= "EVN" classCode="OBS"> <templateId root="840.1.404158.10.20.22.4.2 " /> <id nullFlavor="NA" /> <code codeSystem="local" code="MCV " displayName="MEAN CELL VOLUME" /> <statusCode code="completed" /> <effectiveTime value="495127170580" /> <value unit="fl" xsi:type ="PQ" value="87.8" /> <referenceRange> <observationRange> <text>80.0-100.0</text> </observationRange> </ referenceRange> </observation> </component> <component> <observation moodCode="EVN" classCode="OBS"> <templateId root= "216.840.1.313955.01.03.22.4.2" /> <id nullFlavor="NA" /> < code codeSystem="local" code="MO#" displayName="MONOCYTE #" /> < statusCode code="completed" /> <effectiveTime value="865414282842" /> <value unit="k/cumm" xsi:type="PQ" value="0.7" /> < referenceRange> <observationRange> <text>0.1-1.0</text> </observationRange> </referenceRange> </observation > </component> <component> <observation moodCode="EVN" classCode="OBS"> <templateId root="216.840.1.864228.10...4.2" /> <id nullFlavor="NA" /> <code codeSystem="local" code="MO% " displayName="MONOCYTE %" /> <statusCode code="completed" /> <effectiveTime value="601315765042" /> <value unit="%" xsi: type="PQ" value="11" /> <interpretationCode codeSystem="local" code="* " /> <referenceRange> <observationRange> <text> 4-6</text> </observationRange> </referenceRange> </ observation> </component> <component> <observation moodCode= "EVN" classCode="OBS"> <templateId root="16.840.1.946183.10.20.22.4.2 " /> <id nullFlavor="NA" /> <code codeSystem="local" code="RBC " displayName="RED BLOOD CELL" /> <statusCode code="completed" /> <effectiveTime value="920486931174" /> <value unit="m/cumm" xsi: type="PQ" value="4.92" /> <referenceRange> <observationRange > <text>4.00-6.00</text> </observationRange> </ referenceRange> </observation> </component> <component> <observation moodCode="EVN" classCode="OBS"> <templateId root= "16.840.1.447206.10..4.2" /> <id nullFlavor="NA" /> < code codeSystem="local" code="RDW" displayName="RED CELL DISTRIBUTION WIDTH" /> <statusCode code="completed" /> <effectiveTime value= "307615817971" /> <value unit="%" xsi:type="PQ" value="14.0" /> <referenceRange> <observationRange> <text>11.0- 15.6</text> </observationRange> </referenceRange> </ observation> </component> <component> <observation moodCode= "EVN" classCode="OBS"> <templateId root="05.02.840.1.685326.10.20.22.4.2 " /> <id nullFlavor="NA" /> <code codeSystem="local" code="WBC " displayName="WHITE BLOOD CELL" /> <statusCode code="completed" /> <effectiveTime value="500507164040" /> <value unit="k/cumm" xsi: type="PQ" value="5.8" /> <referenceRange> <observationRange > <text>5.0-10.0</text> </observationRange> </ referenceRange> </observation> </component> <component> <observation moodCode="EVN" classCode="OBS"> <templateId root= "216.840.1.024049.10.4.2" /> <id nullFlavor="NA" /> < code codeSystem="local" code="HGBT" displayName="HEMOGLOBIN" /> < statusCode code="completed" /> <effectiveTime value="322215444763" /> <value unit="gm/dL" xsi:type="PQ" value="14.5" /> < referenceRange> <observationRange> <text>12.0-16.0</text > </observationRange> </referenceRange> </observation > </component> <component> <observation moodCode="EVN" classCode="OBS"> <templateId root="05.02.840.1.700383.01.03.22.4.2" /> <id nullFlavor="NA" /> <code codeSystem="local" code="HCTT" displayName="HEMATOCRIT" /> <statusCode code="completed" /> < effectiveTime value="461310098556" /> <value unit="%" xsi:type="PQ " value="43.2" /> <referenceRange> <observationRange> <text>37.0-47.0</text> </observationRange> </ referenceRange> </observation> </component> <component> <observation moodCode="EVN" classCode="OBS"> <templateId root= "216.840.1.701292...22.4.2" /> <id nullFlavor="NA" /> < code codeSystem="local" code="PLT" displayName="PLATELET COUNT" /> < statusCode code="completed" /> <effectiveTime value="444785836691" /> <value unit="k/cumm" xsi:type="PQ" value="220" /> < referenceRange> <observationRange> <text>150-400</text> </observationRange> </referenceRange> </observation > </component> <component> <observation moodCode="EVN" classCode="OBS"> <templateId root="05.02.840.1.833273.10.22.4.2" /> <id nullFlavor="NA" /> <code codeSystem="local" code="MB" displayName="Microbiology" /> <statusCode code="completed" /> <effectiveTime value="122208047911" /> <value unit="" xsi:type="PQ" value="" /> <referenceRange> <observationRange> <text /> </observationRange> </referenceRange> </ observation> </component> </organizer> </entry> <entry> <organizer moodCode="EVN" classCode="BATTERY"> <templateId root= "840.1.147208.10..22.4.1" /> <id nullFlavor="NA" /> <code codeSystem="local" code="LIVER" displayName="HEPATIC FUNCTION PANEL" /> < statusCode code="completed" /> <component> <observation moodCode= "EVN" classCode="OBS"> <templateId root="05.02.840.1.509483.10..22.4.2 " /> <id nullFlavor="NA" /> <code codeSystem="local" code= "BILUC" displayName="BILI UNCONJUGATED" /> <statusCode code="completed " /> <effectiveTime value="441835637217" /> <value unit="mg/dL " xsi:type="PQ" value="2.2" /> <interpretationCode codeSystem="local" code="*" /> <referenceRange> <observationRange> <text>0.0-0.7</text> </observationRange> </referenceRange > </observation> </component> <component> <observation moodCode="EVN" classCode="OBS"> <templateId root= "05.02.840.1.911587.10.2022.4.2" /> <id nullFlavor="NA" /> < code codeSystem="local" code="AST" displayName="AST/SGOT" /> < statusCode code="completed" /> <effectiveTime value="067288587046" /> <value unit="Units/L" xsi:type="PQ" value="93" /> < interpretationCode codeSystem="local" code="*" /> <referenceRange> <observationRange> <text>10-37</text> </ observationRange> </referenceRange> </observation> </ component> <component> <observation moodCode="EVN" classCode="OBS"> <templateId root="840.1.663830.01.03.22.4.2" /> <id nullFlavor="NA" /> <code codeSystem="local" code="ALT" displayName="ALT /SGPT" /> <statusCode code="completed" /> <effectiveTime value ="133198238629" /> <value unit="Units/L" xsi:type="PQ" value="47" /> <referenceRange> <observationRange> <text>< 66</text> </observationRange> </referenceRange> </ observation> </component> <component> <observation moodCode= "EVN" classCode="OBS"> <templateId root="05.02.840.1.804595.10.20.22.4.2 " /> <id nullFlavor="NA" /> <code codeSystem="local" code="TP " displayName="TOTAL PROTEIN" /> <statusCode code="completed" /> <effectiveTime value="213506849750" /> <value unit="gm/dL" xsi:type ="PQ" value="6.5" /> <referenceRange> <observationRange> <text>6.4-8.2</text> </observationRange> </ referenceRange> </observation> </component> <component> <observation moodCode="EVN" classCode="OBS"> <templateId root= "16.840.1.243750.01.03.22.4.2" /> <id nullFlavor="NA" /> < code codeSystem="local" code="ALB" displayName="ALBUMIN" /> < statusCode code="completed" /> <effectiveTime value="119402256381" /> <value unit="gm/dL" xsi:type="PQ" value="3.6" /> < referenceRange> <observationRange> <text>3.4-5.0</text> </observationRange> </referenceRange> </observation > </component> <component> <observation moodCode="EVN" classCode="OBS"> <templateId root="05.02.840.1.697932...4.2" /> <id nullFlavor="NA" /> <code codeSystem="local" code="BILTOT" displayName="BILI TOTAL" /> <statusCode code="completed" /> < effectiveTime value="489702420907" /> <value unit="mg/dL" xsi:type="PQ " value="2.6" /> <interpretationCode codeSystem="local" code="*" /> <referenceRange> <observationRange> <text>0.0-1.0 </text> </observationRange> </referenceRange> </ observation> </component> <component> <observation moodCode= "EVN" classCode="OBS"> <templateId root="840.1.795643.10..22.4.2 " /> <id nullFlavor="NA" /> <code codeSystem="local" code= "ALKP" displayName="ALKALINE PHOSPHATASE TOTAL" /> <statusCode code= "completed" /> <effectiveTime value="796392978730" /> <value unit="IU/L" xsi:type="PQ" value="113" /> <referenceRange> < observationRange> <text>45-117</text> </observationRange > </referenceRange> </observation> </component> < component> <observation moodCode="EVN" classCode="OBS"> < templateId root="16.840.1.977957.10..4.2" /> <id nullFlavor="NA " /> <code codeSystem="local" code="BILC" displayName="BILI CONJUGATED " /> <statusCode code="completed" /> <effectiveTime value= "857602113955" /> <value unit="mg/dL" xsi:type="PQ" value="0.4" /> <interpretationCode codeSystem="local" code="*" /> < referenceRange> <observationRange> <text>0.0-0.3</text> </observationRange> </referenceRange> </observation > </component> <component> <observation moodCode="EVN" classCode="OBS"> <templateId root="16.840.1.260932.10.20.22.4.2" /> <id nullFlavor="NA" /> <code codeSystem="local" code="MB" displayName="Microbiology" /> <statusCode code="completed" /> <effectiveTime value="480805813375" /> <value unit="" xsi:type="PQ" value="" /> <referenceRange> <observationRange> <text /> </observationRange> </referenceRange> </ observation> </component> </organizer> </entry> <entry> <organizer moodCode="EVN" classCode="BATTERY"> <templateId root= "16.840.1.077855.10.4.1" /> <id nullFlavor="NA" /> <code codeSystem="local" code="LIP" displayName="LIPASE" /> <statusCode code= "completed" /> <component> <observation moodCode="EVN" classCode= "OBS"> <templateId root="840.1.565442.01.03.224.2" /> < id nullFlavor="NA" /> <code codeSystem="local" code="LIP" displayName= "LIPASE" /> <statusCode code="completed" /> <effectiveTime value="643193467831" /> <value unit="Units/L" xsi:type="PQ" value="119 " /> <referenceRange> <observationRange> <text> 73393</text> </observationRange> </referenceRange> < /observation> </component> </organizer> </entry> <entry> < organizer moodCode="EVN" classCode="BATTERY"> <templateId root= "05.02.840.1.776344.01.03.22.4.1" /> <id nullFlavor="NA" /> <code codeSystem="local" code="PREGU" displayName="UR TEST" /> < statusCode code="completed" /> <component> <observation moodCode= "EVN" classCode="OBS"> <templateId root="05.02.840.1.888619.01.03.22.4.2 " /> <id nullFlavor="NA" /> <code codeSystem="local" code= "PREGU" displayName="UR TEST" /> <statusCode code="completed " /> <effectiveTime value="848313325521" /> <value unit="" xsi :type="PQ" value="NEGATIVE" /> <referenceRange> < observationRange> <text>NEGATIVE</text> </ observationRange> </referenceRange> </observation> </ component> <component> <observation moodCode="EVN" classCode="OBS"> <templateId root="16.840.1.022400.01.03.22.4.2" /> <id nullFlavor="NA" /> <code codeSystem="local" code="MB" displayName= "Microbiology" /> <statusCode code="completed" /> < effectiveTime value="410577857033" /> <value unit="" xsi:type="PQ" value="" /> <referenceRange> <observationRange> <text /> </observationRange> </referenceRange> </ observation> </component> </organizer> </entry> <entry> <organizer moodCode="EVN" classCode="BATTERY"> <templateId root= "16.840.1.938559.01.03.22.4.1" /> <id nullFlavor="NA" /> <code codeSystem="local" code="iCHEM8" displayName="CHEM/HEM PROFILE-BEDSIDE" /> <statusCode code="completed" /> <component> <observation moodCode= "EVN" classCode="OBS"> <templateId root="16.840.1.947813.1022.4.2 " /> <id nullFlavor="NA" /> <code codeSystem="local" code="K" displayName="POTASSIUM" /> <statusCode code="completed" /> < effectiveTime value="543834095096" /> <value unit="mmol/L" xsi:type="PQ " value="3.9" /> <referenceRange> <observationRange> <text>3.5-5.3</text> </observationRange> </ referenceRange> </observation> </component> <component> <observation moodCode="EVN" classCode="OBS"> <templateId root= "216.840.1.972114.10.22.4.2" /> <id nullFlavor="NA" /> < code codeSystem="local" code="CMETHOD" displayName="METHOD" /> < statusCode code="completed" /> <effectiveTime value="120057749431" /> <value unit="" xsi:type="PQ" value="Bedside" /> < referenceRange> <observationRange> <text /> < /observationRange> </referenceRange> </observation> </ component> <component> <observation moodCode="EVN" classCode="OBS"> <templateId root="05.02.840.1.937922.01.03.22.4.2" /> <id nullFlavor="NA" /> <code codeSystem="local" code="GAP" displayName= "ANION GAP" /> <statusCode code="completed" /> <effectiveTime value="" /> <value unit="mmol/L" xsi:type="PQ" value="18" / > <referenceRange> <observationRange> <text>10- 20</text> </observationRange> </referenceRange> </ observation> </component> <component> <observation moodCode= "EVN" classCode="OBS"> <templateId root="05.02.840.1.389253.22.4.2 " /> <id nullFlavor="NA" /> <code codeSystem="local" code= "HMETHOD" displayName="METHOD" /> <statusCode code="completed" /> <effectiveTime value="119180725704" /> <value unit="" xsi:type="PQ " value="Bedside" /> <referenceRange> <observationRange> <text /> </observationRange> </referenceRange> </observation> </component> <component> <observation moodCode="EVN" classCode="OBS"> <templateId root= "16.840.1.780628.10.20.22.4.2" /> <id nullFlavor="NA" /> < code codeSystem="local" code="GLU" displayName="GLUCOSE" /> < statusCode code="completed" /> <effectiveTime value="552455023883" /> <value unit="mg/dL" xsi:type="PQ" value="101" /> < interpretationCode codeSystem="local" code="*" /> <referenceRange> <observationRange> <text>70-99</text> </ observationRange> </referenceRange> </observation> </ component> <component> <observation moodCode="EVN" classCode="OBS"> <templateId root="05.02.840.1.464083.10..4.2" /> <id nullFlavor="NA" /> <code codeSystem="local" code="BUN" displayName= "BLOOD UREA NITROGEN" /> <statusCode code="completed" /> < effectiveTime value="571050098831" /> <value unit="mg/dL" xsi:type="PQ " value="6" /> <interpretationCode codeSystem="local" code="*" /> <referenceRange> <observationRange> <text>7-20</ text> </observationRange> </referenceRange> </ observation> </component> <component> <observation moodCode= "EVN" classCode="OBS"> <templateId root="05.02.840.1.569622.10.20.22.4.2 " /> <id nullFlavor="NA" /> <code codeSystem="local" code= "CREAT" displayName="CREATININE" /> <statusCode code="completed" /> <effectiveTime value="857521898700" /> <value unit="mg/dL" xsi: type="PQ" value="0.6" /> <referenceRange> <observationRange > <text>0.6-1.0</text> </observationRange> </ referenceRange> </observation> </component> <component> <observation moodCode="EVN" classCode="OBS"> <templateId root= "216.840.1.153957.10.20.22.4.2" /> <id nullFlavor="NA" /> < code codeSystem="local" code="HGBT" displayName="HEMOGLOBIN" /> < statusCode code="completed" /> <effectiveTime value="702408824354" /> <value unit="gm/dL" xsi:type="PQ" value="15.0" /> < referenceRange> <observationRange> <text>12.0-16.0</text > </observationRange> </referenceRange> </observation > </component> <component> <observation moodCode="EVN" classCode="OBS"> <templateId root="216.840.1.552328.10.20.22.4.2" /> <id nullFlavor="NA" /> <code codeSystem="local" code="HCTT" displayName="HEMATOCRIT" /> <statusCode code="completed" /> < effectiveTime value="795852146286" /> <value unit="%" xsi:type="PQ " value="44.0" /> <referenceRange> <observationRange> <text>37.0-47.0</text> </observationRange> </ referenceRange> </observation> </component> <component> <observation moodCode="EVN" classCode="OBS"> <templateId root= "05.02.840.1.595553.10.22.4.2" /> <id nullFlavor="NA" /> < code codeSystem="local" code="NA" displayName="SODIUM" /> <statusCode code="completed" /> <effectiveTime value="377723079907" /> < value unit="mmol/L" xsi:type="PQ" value="139" /> <referenceRange> <observationRange> <text>135-148</text> </ observationRange> </referenceRange> </observation> </ component> <component> <observation moodCode="EVN" classCode="OBS"> <templateId root="216.840.1.964706.01.03.22.4.2" /> <id nullFlavor="NA" /> <code codeSystem="local" code="CL" displayName= "CHLORIDE" /> <statusCode code="completed" /> <effectiveTime value="337411942730" /> <value unit="mmol/L" xsi:type="PQ" value="106" /> <referenceRange> <observationRange> <text>98 -110</text> </observationRange> </referenceRange> </ observation> </component> <component> <observation moodCode= "EVN" classCode="OBS"> <templateId root="216.840.1.885931...4.2 " /> <id nullFlavor="NA" /> <code codeSystem="local" code="CO2 " displayName="CARBON DIOXIDE" /> <statusCode code="completed" /> <effectiveTime value="" /> <value unit="mmol/L" xsi: type="PQ" value="20" /> <interpretationCode codeSystem="local" code="* " /> <referenceRange> <observationRange> <text> 21-32</text> </observationRange> </referenceRange> </ observation> </component> <component> <observation moodCode= "EVN" classCode="OBS"> <templateId root="16.840.1.703777.01.03.22.4.2 " /> <id nullFlavor="NA" /> <code codeSystem="local" code= "CAION" displayName="CALCIUM IONIZED" /> <statusCode code="completed" / > <effectiveTime value="899059011787" /> <value unit="mg/dL" xsi:type="PQ" value="4.5" /> <referenceRange> < observationRange> <text>4.5-5.3</text> </ observationRange> </referenceRange> </observation> </ component> <component> <observation moodCode="EVN" classCode="OBS"> <templateId root="05.02.840.1.109188.01.03.22.4.2" /> <id nullFlavor="NA" /> <code codeSystem="local" code="MB" displayName= "Microbiology" /> <statusCode code="completed" /> < effectiveTime value="025447765151" /> <value unit="" xsi:type="PQ" value="" /> <referenceRange> <observationRange> <text /> </observationRange> </referenceRange> </ observation> </component> </organizer> </entry> <entry> <organizer moodCode="EVN" classCode="BATTERY"> <templateId root= "05.02.840.1.190882.01.03.22.4.1" /> <id nullFlavor="NA" /> <code codeSystem="local" code="iTROPI" displayName="TROPONIN I BEDSIDE" /> < statusCode code="completed" /> <component> <observation moodCode= "EVN" classCode="OBS"> <templateId root="05.02.840.1.859897.10..22.4.2 " /> <id nullFlavor="NA" /> <code codeSystem="local" code= "CMETHOD" displayName="METHOD" /> <statusCode code="completed" /> <effectiveTime value="725837269536" /> <value xsi:type="ST" value= "<pre><b>TROPONIN I BEDSIDE</b> Bedside< 0.04</pre>" /> <referenceRange> <observationRange> <text / > </observationRange> </referenceRange> </observation > </component> <component> <observation moodCode="EVN" classCode="OBS"> <templateId root="16.840.1.633961.01.03.22.4.2" /> <id nullFlavor="NA" /> <code codeSystem="local" code="TROPI" displayName="TROPONIN I" /> <statusCode code="completed" /> < effectiveTime value="991616668702" /> <value xsi:type="ST" value="< pre><b>TROPONIN I BEDSIDE</b> Bedside< 0.04</pre>" /> <referenceRange> <observationRange> <text>< 0.11</text> </observationRange> </referenceRange> </ observation> </component> <component> <observation moodCode= "EVN" classCode="OBS"> <templateId root="216.840.1.724502.10..22.4.2 " /> <id nullFlavor="NA" /> <code codeSystem="local" code="MB " displayName="Microbiology" /> <statusCode code="completed" /> <effectiveTime value="294621502699" /> <value xsi:type="ST" value="& lt;pre><b>TROPONIN I BEDSIDE</b> Bedside< 0.04</pre>" / > <referenceRange> <observationRange> <text /> </observationRange> </referenceRange> </observation > </component> </organizer> </entry> <entry> <organizer moodCode= "EVN" classCode="BATTERY"> <templateId root="216.840.1.707964.10..22.4.1 " /> <id nullFlavor="NA" /> <code codeSystem="local" code="CBCD" displayName="CBC W/DIFF" /> <statusCode code="completed" /> <component > <observation moodCode="EVN" classCode="OBS"> <templateId root= "216.840.1.449393.10..22.4.2" /> <id nullFlavor="NA" /> < code codeSystem="local" code="GR#" displayName="GRANULOCYTE #" /> < statusCode code="completed" /> <effectiveTime value="993585017315" /> <value xsi:type="ST" value="<pre><b>CBC W/DIFF</b> 11.34.4913.439.387.529.834.114.0957713734.01.40.9</pre>" /> < referenceRange> <observationRange> <text>2.0-9.0</text> </observationRange> </referenceRange> </observation > </component> <component> <observation moodCode="EVN" classCode="OBS"> <templateId root="216.840.1.614365.10..22.4.2" /> <id nullFlavor="NA" /> <code codeSystem="local" code="GR% " displayName="GRANULOCYTE %" /> <statusCode code="completed" /> <effectiveTime value="517649771121" /> <value xsi:type="ST" value="<pre><b>CBC W/DIFF</b> .439.387.529.834.114.7292746653..40.9< /pre>" /> <interpretationCode codeSystem="local" code="*" /> < referenceRange> <observationRange> <text>50-75</text> </observationRange> </referenceRange> </observation> </component> <component> <observation moodCode="EVN" classCode= "OBS"> <templateId root="2.16.840.1.375006.10.22.4.2" /> < id nullFlavor="NA" /> <code codeSystem="local" code="LY#" displayName= "LYMPHOCYTE #" /> <statusCode code="completed" /> < effectiveTime value="715277023799" /> <value xsi:type="ST" value="<pre> <b>CBC W/DIFF</b> .439.387.529.834.114.1815652028..40.9</pre>" /> <referenceRange> <observationRange> <text>1.0- 4.0</text> </observationRange> </referenceRange> </ observation> </component> <component> <observation moodCode= "EVN" classCode="OBS"> <templateId root="2.16.840.1.768796.10.2022.4.2 " /> <id nullFlavor="NA" /> <code codeSystem="local" code="LY& #37;" displayName="LYMPHOCYTE %" /> <statusCode code="completed" / > <effectiveTime value="353837512680" /> <value xsi:type="ST" value="<pre><b>CBC W/DIFF</b> .34.439.387.529.834.114.5571423243..40.9< /pre>" /> <interpretationCode codeSystem="local" code="*" /> < referenceRange> <observationRange> <text>20-30</text> </observationRange> </referenceRange> </observation> </component> <component> <observation moodCode="EVN" classCode= "OBS"> <templateId root="2.16.840.1.129038.10.20.22.4.2" /> < id nullFlavor="NA" /> <code codeSystem="local" code="MCH" displayName= "MEAN CELL HGB" /> <statusCode code="completed" /> < effectiveTime value="516850040367" /> <value xsi:type="ST" value="<pre> <b>CBC W/DIFF</b> 439.387.529.834.114.3284772196..40.9</pre>" /> <referenceRange> <observationRange> <text>27.0- 33.0</text> </observationRange> </referenceRange> </ observation> </component> <component> <observation moodCode= "EVN" classCode="OBS"> <templateId root="2.16.840.1.192627.10.2022.4.2 " /> <id nullFlavor="NA" /> <code codeSystem="local" code= "MCHC" displayName="MEAN CELL HGB CONCENTRATION" /> <statusCode code= "completed" /> <effectiveTime value="707994474023" /> <value xsi:type="ST" value="<pre><b>CBC W/DIFF</b> .3449.439.387.529.834.114.2917059402..9</pre>" /> < referenceRange> <observationRange> <text>32.0-37.0</text > </observationRange> </referenceRange> </observation > </component> <component> <observation moodCode="EVN" classCode="OBS"> <templateId root="2.16.840.1.951328.10.20.22.4.2" /> <id nullFlavor="NA" /> <code codeSystem="local" code="MCV" displayName="MEAN CELL VOLUME" /> <statusCode code="completed" /> <effectiveTime value="695577467075" /> <value xsi:type="ST" value= "<pre><b>CBC W/DIFF</b> .439.387.529.834.114.1781927282..9</pre> " /> <referenceRange> <observationRange> <text> 80.0-100.0</text> </observationRange> </referenceRange> </observation> </component> <component> <observation moodCode="EVN" classCode="OBS"> <templateId root= "2.16.840.1.762271.10..22.4.2" /> <id nullFlavor="NA" /> < code codeSystem="local" code="MO#" displayName="MONOCYTE #" /> < statusCode code="completed" /> <effectiveTime value="896539629420" /> <value xsi:type="ST" value="<pre><b>CBC W/DIFF</b> 344913.439.387.529.834.114.498185617340.9</pre>" /> < referenceRange> <observationRange> <text>0.1-1.0</text> </observationRange> </referenceRange> </observation > </component> <component> <observation moodCode="EVN" classCode="OBS"> <templateId root="2.16.840.1.566716.10..22.4.2" /> <id nullFlavor="NA" /> <code codeSystem="local" code="MO% " displayName="MONOCYTE %" /> <statusCode code="completed" /> <effectiveTime value="606425013570" /> <value xsi:type="ST" value= "<pre><b>CBC W/DIFF</b> .34.49.439.387.529.834.114.3219269266.40.9</pre> " /> <interpretationCode codeSystem="local" code="*" /> < referenceRange> <observationRange> <text>4-6</text> </observationRange> </referenceRange> </observation> </component> <component> <observation moodCode="EVN" classCode= "OBS"> <templateId root="2.16.840.1.420560.10...4.2" /> < id nullFlavor="NA" /> <code codeSystem="local" code="RBC" displayName= "RED BLOOD CELL" /> <statusCode code="completed" /> < effectiveTime value="090064129942" /> <value xsi:type="ST" value="<pre> <b>CBC W/DIFF</b> .3449.439.387.529.834.114.7056954944..40.9</pre>" /> <referenceRange> <observationRange> <text>4.00- 6.00</text> </observationRange> </referenceRange> </ observation> </component> <component> <observation moodCode= "EVN" classCode="OBS"> <templateId root="2.16.840.1.097587.2022.4.2 " /> <id nullFlavor="NA" /> <code codeSystem="local" code="RDW " displayName="RED CELL DISTRIBUTION WIDTH" /> <statusCode code= "completed" /> <effectiveTime value="569337847147" /> <value xsi:type="ST" value="<pre><b>CBC W/DIFF</b> .3449.439.387.529.834.114.1483117903..40.9</pre>" /> < referenceRange> <observationRange> <text>11.0-15.6</text > </observationRange> </referenceRange> </observation > </component> <component> <observation moodCode="EVN" classCode="OBS"> <templateId root="2.16.840.1.387885.10..4.2" /> <id nullFlavor="NA" /> <code codeSystem="local" code="WBC" displayName="WHITE BLOOD CELL" /> <statusCode code="completed" /> <effectiveTime value="427097706942" /> <value xsi:type="ST" value= "<pre><b>CBC W/DIFF</b> 34.439.387.529.834.114.4964453751.40.9</pre> " /> <interpretationCode codeSystem="local" code="*" /> < referenceRange> <observationRange> <text>5.0-10.0</text > </observationRange> </referenceRange> </observation > </component> <component> <observation moodCode="EVN" classCode="OBS"> <templateId root="216.840.1.743736.10.20.22.4.2" /> <id nullFlavor="NA" /> <code codeSystem="local" code="HGBT" displayName="HEMOGLOBIN" /> <statusCode code="completed" /> < effectiveTime value="678510069826" /> <value xsi:type="ST" value="<pre> <b>CBC W/DIFF</b> .439.387.529.834.114.1823662385..40.9</pre>" /> <referenceRange> <observationRange> <text>12.0- 16.0</text> </observationRange> </referenceRange> </ observation> </component> <component> <observation moodCode= "EVN" classCode="OBS"> <templateId root="2.16.840.1.159543.10...4.2 " /> <id nullFlavor="NA" /> <code codeSystem="local" code= "HCTT" displayName="HEMATOCRIT" /> <statusCode code="completed" /> <effectiveTime value="960630062544" /> <value xsi:type="ST" value ="<pre><b>CBC W/DIFF</b> .439.387.529.834.114.3738513275.40.9</pre> " /> <referenceRange> <observationRange> <text> 37.0-47.0</text> </observationRange> </referenceRange> </observation> </component> <component> <observation moodCode="EVN" classCode="OBS"> <templateId root= "2.16.840.1.119143.10..22.4.2" /> <id nullFlavor="NA" /> < code codeSystem="local" code="PLT" displayName="PLATELET COUNT" /> < statusCode code="completed" /> <effectiveTime value="534344650889" /> <value xsi:type="ST" value="<pre><b>CBC W/DIFF</b> .439.387.529.834.114.1254225540..40.9</pre>" /> < referenceRange> <observationRange> <text>150-400</text> </observationRange> </referenceRange> </observation > </component> <component> <observation moodCode="EVN" classCode="OBS"> <templateId root="216.840.1.082527.10..22.4.2" /> <id nullFlavor="NA" /> <code codeSystem="local" code="MB" displayName="Microbiology" /> <statusCode code="completed" /> <effectiveTime value="332129346386" /> <value xsi:type="ST" value="<pre ><b>CBC W/DIFF</b> .439.387.529.834.114.3683594290.40.9</pre>" /> <referenceRange> <observationRange> <text /> </observationRange> </referenceRange> </observation> </component> </organizer> </entry> <entry> <organizer moodCode="EVN " classCode="BATTERY"> <templateId root="216.840.1.242036.10..22.4.1" / > <id nullFlavor="NA" /> <code codeSystem="local" code="LIVER" displayName="HEPATIC FUNCTION PANEL" /> <statusCode code="completed" /> <component> <observation moodCode="EVN" classCode="OBS"> < templateId root="216.840.1.481447.10..22.4.2" /> <id nullFlavor="NA " /> <code codeSystem="local" code="BILUC" displayName="BILI UNCONJUGATED" /> <statusCode code="completed" /> < effectiveTime value="" /> <value unit="mg/dL" xsi:type="PQ " value="0.4" /> <referenceRange> <observationRange> <text>0.0-0.7</text> </observationRange> </ referenceRange> </observation> </component> <component> <observation moodCode="EVN" classCode="OBS"> <templateId root= "216.840.1.661223.10..4.2" /> <id nullFlavor="NA" /> < code codeSystem="local" code="AST" displayName="AST/SGOT" /> < statusCode code="completed" /> <effectiveTime value="" /> <value unit="Units/L" xsi:type="PQ" value="10" /> < referenceRange> <observationRange> <text>10-37</text> </observationRange> </referenceRange> </observation> </component> <component> <observation moodCode="EVN" classCode= "OBS"> <templateId root="05.02.840.1.115362.10..4.2" /> < id nullFlavor="NA" /> <code codeSystem="local" code="ALT" displayName= "ALT/SGPT" /> <statusCode code="completed" /> <effectiveTime value="" /> <value unit="Units/L" xsi:type="PQ" value="15" /> <referenceRange> <observationRange> <text>& lt; 66</text> </observationRange> </referenceRange> < /observation> </component> <component> <observation moodCode= "EVN" classCode="OBS"> <templateId root="216.840.1.714828.10..22.4.2 " /> <id nullFlavor="NA" /> <code codeSystem="local" code="TP " displayName="TOTAL PROTEIN" /> <statusCode code="completed" /> <effectiveTime value="" /> <value unit="gm/dL" xsi:type ="PQ" value="6.1" /> <interpretationCode codeSystem="local" code="*" / > <referenceRange> <observationRange> <text>6.4 -8.2</text> </observationRange> </referenceRange> </ observation> </component> <component> <observation moodCode= "EVN" classCode="OBS"> <templateId root="2.16.840.1.070251.10...4.2 " /> <id nullFlavor="NA" /> <code codeSystem="local" code="ALB " displayName="ALBUMIN" /> <statusCode code="completed" /> < effectiveTime value="" /> <value unit="gm/dL" xsi:type="PQ " value="3.2" /> <interpretationCode codeSystem="local" code="*" /> <referenceRange> <observationRange> <text>3.4-5.0 </text> </observationRange> </referenceRange> </ observation> </component> <component> <observation moodCode= "EVN" classCode="OBS"> <templateId root="2.16.840.1.333452.10.2022.4.2 " /> <id nullFlavor="NA" /> <code codeSystem="local" code= "BILTOT" displayName="BILI TOTAL" /> <statusCode code="completed" /> <effectiveTime value="" /> <value unit="mg/dL" xsi: type="PQ" value="0.5" /> <referenceRange> <observationRange > <text>0.0-1.0</text> </observationRange> </ referenceRange> </observation> </component> <component> <observation moodCode="EVN" classCode="OBS"> <templateId root= "05.02.840.1.805090.10..4.2" /> <id nullFlavor="NA" /> < code codeSystem="local" code="ALKP" displayName="ALKALINE PHOSPHATASE TOTAL" /> <statusCode code="completed" /> <effectiveTime value= "[id number]" /> <value unit="IU/L" xsi:type="PQ" value="89" /> <referenceRange> <observationRange> <text>45-117</ text> </observationRange> </referenceRange> </ observation> </component> <component> <observation moodCode= "EVN" classCode="OBS"> <templateId root="[id number] " /> <id nullFlavor="NA" /> <code codeSystem="local" code= "BILC" displayName="BILI CONJUGATED" /> <statusCode code="completed" / > <effectiveTime value="[id number]" /> <value unit="mg/dL" xsi:type="PQ" value="0.1" /> <referenceRange> < observationRange> <text>0.0-0.3</text> </ observationRange> </referenceRange> </observation> </ component> <component> <observation moodCode="EVN" classCode="OBS"> <templateId root="05.02.840.1.758225.10...4.2" /> <id nullFlavor="NA" /> <code codeSystem="local" code="MB" displayName= "Microbiology" /> <statusCode code="completed" /> < effectiveTime value="442659297492" /> <value unit="" xsi:type="PQ" value="" /> <referenceRange> <observationRange> <text /> </observationRange> </referenceRange> </ observation> </component> </organizer> </entry> <entry> <organizer moodCode="EVN" classCode="BATTERY"> <templateId root= "05.02.840.1.566970.10.22.4.1" /> <id nullFlavor="NA" /> <code codeSystem="local" code="LIP" displayName="LIPASE" /> <statusCode code= "completed" /> <component> <observation moodCode="EVN" classCode= "OBS"> <templateId root="840.1.122915.01.03.22.4.2" /> < id nullFlavor="NA" /> <code codeSystem="local" code="LIP" displayName= "LIPASE" /> <statusCode code="completed" /> <effectiveTime value="282168432679" /> <value unit="Units/L" xsi:type="PQ" value="133 " /> <referenceRange> <observationRange> <text> 73-393</text> </observationRange> </referenceRange> < /observation> </component> </organizer> </entry> <entry> < organizer moodCode="EVN" classCode="BATTERY"> <templateId root= "840.1.083550.01.03.22.4.1" /> <id nullFlavor="NA" /> <code codeSystem="local" code="iCHEM8" displayName="CHEM/HEM PROFILE-BEDSIDE" /> <statusCode code="completed" /> <component> <observation moodCode= "EVN" classCode="OBS"> <templateId root="840.1.683100.1022.4.2 " /> <id nullFlavor="NA" /> <code codeSystem="local" code="K" displayName="POTASSIUM" /> <statusCode code="completed" /> < effectiveTime value="972697926020" /> <value xsi:type="ST" value="<pre> <b>CHEM/HEM PROFILE-BEDSIDE</b> Uqhgqdm21.938.9Hqapviv4161.75291886318345.64.5</ pre>" /> <interpretationCode codeSystem="local" code="*" /> < referenceRange> <observationRange> <text>3.5-5.3</text> </observationRange> </referenceRange> </observation > </component> <component> <observation moodCode="EVN" classCode="OBS"> <templateId root="2.16.840.1.182598.10..22.4.2" /> <id nullFlavor="NA" /> <code codeSystem="local" code="CMETHOD " displayName="METHOD" /> <statusCode code="completed" /> < effectiveTime value="211167493153" /> <value xsi:type="ST" value="<pre> <b>CHEM/HEM PROFILE-BEDSIDE</b> Wrfpfay66.938.8Sbouxsk0720.07693342261436.64.5</ pre>" /> <referenceRange> <observationRange> < text /> </observationRange> </referenceRange> </ observation> </component> <component> <observation moodCode= "EVN" classCode="OBS"> <templateId root="216.840.1.318443.10..22.4.2 " /> <id nullFlavor="NA" /> <code codeSystem="local" code="GAP " displayName="ANION GAP" /> <statusCode code="completed" /> < effectiveTime value="415907194444" /> <value xsi:type="ST" value="<pre> <b>CHEM/HEM PROFILE-BEDSIDE</b> Dwqpjbr398.9Lzxtbkw8859.73607447232367.64.5</ pre>" /> <referenceRange> <observationRange> < text>10-20</text> </observationRange> </referenceRange> </observation> </component> <component> <observation moodCode="EVN" classCode="OBS"> <templateId root= "2.16.840.1.626310.10..22.4.2" /> <id nullFlavor="NA" /> < code codeSystem="local" code="HMETHOD" displayName="METHOD" /> < statusCode code="completed" /> <effectiveTime value="000015397312" /> <value xsi:type="ST" value="<pre><b>CHEM/HEM PROFILE-BEDSIDE</b> Pqephmy91.938.3Thjbbtv1609.21486985818070.64.5</pre>" /> < referenceRange> <observationRange> <text /> < /observationRange> </referenceRange> </observation> </ component> <component> <observation moodCode="EVN" classCode="OBS"> <templateId root="2.16.840.1.434796.10.20.22.4.2" /> <id nullFlavor="NA" /> <code codeSystem="local" code="GLU" displayName= "GLUCOSE" /> <statusCode code="completed" /> <effectiveTime value="767271518960" /> <value xsi:type="ST" value="<pre><b>CHEM/HEM PROFILE-BEDSIDE</b> Iyptbtd93.8.3Ljivicz2758.97753617175963.64.5</pre>" /> <interpretationCode codeSystem="local" code="*" /> < referenceRange> <observationRange> <text>70-99</text> </observationRange> </referenceRange> </observation> </component> <component> <observation moodCode="EVN" classCode= "OBS"> <templateId root="216.840.1.459143.10..22.4.2" /> < id nullFlavor="NA" /> <code codeSystem="local" code="BUN" displayName= "BLOOD UREA NITROGEN" /> <statusCode code="completed" /> < effectiveTime value="995593730924" /> <value xsi:type="ST" value="<pre> <b>CHEM/HEM PROFILE-BEDSIDE</b> Rrfgxty10.938.8Tctoapn0572.70086726480513.64.5</ pre>" /> <referenceRange> <observationRange> < text>7-20</text> </observationRange> </referenceRange> </observation> </component> <component> <observation moodCode="EVN" classCode="OBS"> <templateId root= "05.02.840.1.609889.10..4.2" /> <id nullFlavor="NA" /> < code codeSystem="local" code="CREAT" displayName="CREATININE" /> < statusCode code="completed" /> <effectiveTime value="327351639332" /> <value xsi:type="ST" value="<pre><b>CHEM/HEM PROFILE-BEDSIDE</b> Odhmjgf11.9Jqvgyix4246.87182199473049.64.5</pre>" /> < referenceRange> <observationRange> <text>0.6-1.0</text> </observationRange> </referenceRange> </observation > </component> <component> <observation moodCode="EVN" classCode="OBS"> <templateId root="16.840.1.043974.10..22.4.2" /> <id nullFlavor="NA" /> <code codeSystem="local" code="HGBT" displayName="HEMOGLOBIN" /> <statusCode code="completed" /> < effectiveTime value="077660612085" /> <value xsi:type="ST" value="<pre> <b>CHEM/HEM PROFILE-BEDSIDE</b> Kgqwfzi18.938.2Hacjloq2049.86009631391439.64.5</ pre>" /> <referenceRange> <observationRange> < text>12.0-16.0</text> </observationRange> </referenceRange> </observation> </component> <component> <observation moodCode="EVN" classCode="OBS"> <templateId root= "2.16.840.1.079637.10...4.2" /> <id nullFlavor="NA" /> < code codeSystem="local" code="HCTT" displayName="HEMATOCRIT" /> < statusCode code="completed" /> <effectiveTime value="938333585883" /> <value xsi:type="ST" value="<pre><b>CHEM/HEM PROFILE-BEDSIDE</b> Ysbiokq54.938.4Wlgtxsb1617.91261789097710.64.5</pre>" /> < referenceRange> <observationRange> <text>37.0-47.0</text > </observationRange> </referenceRange> </observation > </component> <component> <observation moodCode="EVN" classCode="OBS"> <templateId root="2.16.840.1.266881.10...4.2" /> <id nullFlavor="NA" /> <code codeSystem="local" code="NA" displayName="SODIUM" /> <statusCode code="completed" /> < effectiveTime value="849971508826" /> <value xsi:type="ST" value="<pre> <b>CHEM/HEM PROFILE-BEDSIDE</b> Nntidgt53.938.0Ivyhuue1120.60244592144580.64.5</ pre>" /> <referenceRange> <observationRange> < text>135-148</text> </observationRange> </referenceRange> </observation> </component> <component> <observation moodCode="EVN" classCode="OBS"> <templateId root= "2.16.840.1.365175.10..22.4.2" /> <id nullFlavor="NA" /> < code codeSystem="local" code="CL" displayName="CHLORIDE" /> < statusCode code="completed" /> <effectiveTime value="303701494989" /> <value xsi:type="ST" value="<pre><b>CHEM/HEM PROFILE-BEDSIDE</b> Jhwxigj45.938.2Zxnpslr5987.88355196155722.64.5</pre>" /> < referenceRange> <observationRange> <text>98-110</text> </observationRange> </referenceRange> </observation> </component> <component> <observation moodCode="EVN" classCode ="OBS"> <templateId root="2.16.840.1.789197.10..22.4.2" /> < id nullFlavor="NA" /> <code codeSystem="local" code="CO2" displayName= "CARBON DIOXIDE" /> <statusCode code="completed" /> < effectiveTime value="005669207446" /> <value xsi:type="ST" value="<pre> <b>CHEM/HEM PROFILE-BEDSIDE</b> Yxxxejs229Kesqhja8255.25757866193153.64.5</ pre>" /> <referenceRange> <observationRange> < text>21-32</text> </observationRange> </referenceRange> </observation> </component> <component> <observation moodCode="EVN" classCode="OBS"> <templateId root= "05.02.840.1.078471.10..22.4.2" /> <id nullFlavor="NA" /> < code codeSystem="local" code="CAION" displayName="CALCIUM IONIZED" /> < statusCode code="completed" /> <effectiveTime value="472732073139" /> <value xsi:type="ST" value="<pre><b>CHEM/HEM PROFILE-BEDSIDE</b> Oiwxzwj02.938.2Kcdwdoy7096.97117994326034.64.5</pre>" /> < referenceRange> <observationRange> <text>4.5-5.3</text> </observationRange> </referenceRange> </observation > </component> <component> <observation moodCode="EVN" classCode="OBS"> <templateId root="216.840.1.721316.10...4.2" /> <id nullFlavor="NA" /> <code codeSystem="local" code="MB" displayName="Microbiology" /> <statusCode code="completed" /> <effectiveTime value="420265403596" /> <value xsi:type="ST" value="<pre ><b>CHEM/HEM PROFILE-BEDSIDE</b> Tdmdlhg13.938.0Ixlbdzf2031.78888617843537.64.5< /pre>" /> <referenceRange> <observationRange> < text /> </observationRange> </referenceRange> </ observation> </component> </organizer> </entry> <entry> <organizer moodCode="EVN" classCode="BATTERY"> <templateId root= "2.16.840.1.827304.10..22.4.1" /> <id nullFlavor="NA" /> <code codeSystem="local" code="UA" displayName="URINALYSIS, ROUTINE" /> < statusCode code="completed" /> <component> <observation moodCode= "EVN" classCode="OBS"> <templateId root="216.840.1.436351.10..22.4.2 " /> <id nullFlavor="NA" /> <code codeSystem="local" code= "LEUESU" displayName="UA LEUKOCYTE ESTERASE DIPSTICK" /> <statusCode code="completed" /> <effectiveTime value="291876454721" /> < value unit="" xsi:type="PQ" value="NEGATIVE" /> <referenceRange> <observationRange> <text>NEGATIVE</text> </ observationRange> </referenceRange> </observation> </ component> <component> <observation moodCode="EVN" classCode="OBS"> <templateId root="16.840.1.452171.10...4.2" /> <id nullFlavor="NA" /> <code codeSystem="local" code="NITRIU" displayName= "UA NITRITE DIPSTICK" /> <statusCode code="completed" /> < effectiveTime value="566591064800" /> <value unit="" xsi:type="PQ" value="POSITIVE" /> <interpretationCode codeSystem="local" code="*" /> <referenceRange> <observationRange> <text> NEGATIVE</text> </observationRange> </referenceRange> </observation> </component> <component> <observation moodCode ="EVN" classCode="OBS"> <templateId root= "16.840.1.075820.10...4.2" /> <id nullFlavor="NA" /> < code codeSystem="local" code="PROTEIU" displayName="UA PROTEIN DIPSTICK" /> <statusCode code="completed" /> <effectiveTime value= "804873171009" /> <value unit="" xsi:type="PQ" value="NEGATIVE" /> <referenceRange> <observationRange> <text>NEGATIVE </text> </observationRange> </referenceRange> </ observation> </component> <component> <observation moodCode= "EVN" classCode="OBS"> <templateId root="16.840.1.452904.10..4.2 " /> <id nullFlavor="NA" /> <code codeSystem="local" code= "DGLUU" displayName="UA GLUCOSE DIPSTICK" /> <statusCode code= "completed" /> <effectiveTime value="334031624568" /> <value unit="" xsi:type="PQ" value="NEGATIVE" /> <referenceRange> < observationRange> <text>NEGATIVE</text> </ observationRange> </referenceRange> </observation> </ component> <component> <observation moodCode="EVN" classCode="OBS"> <templateId root="05.02.840.1.431331.10.4.2" /> <id nullFlavor="NA" /> <code codeSystem="local" code="KETONU" displayName= "UA KETONE DIPSTICK" /> <statusCode code="completed" /> < effectiveTime value="166481493546" /> <value unit="" xsi:type="PQ" value="NEGATIVE" /> <referenceRange> <observationRange> <text>NEGATIVE</text> </observationRange> </ referenceRange> </observation> </component> <component> <observation moodCode="EVN" classCode="OBS"> <templateId root= "05.02.840.1.089351.10..4.2" /> <id nullFlavor="NA" /> < code codeSystem="local" code="UROBILU" displayName="UA UROBILINOGEN DIPSTICK" / > <statusCode code="completed" /> <effectiveTime value= "457694241757" /> <value unit="" xsi:type="PQ" value="NORMAL" /> <referenceRange> <observationRange> <text>NORMAL</ text> </observationRange> </referenceRange> </ observation> </component> <component> <observation moodCode= "EVN" classCode="OBS"> <templateId root="216.840.1.119235.10..22.4.2 " /> <id nullFlavor="NA" /> <code codeSystem="local" code= "BILU" displayName="UA BILIRUBIN DIPSTICK" /> <statusCode code= "completed" /> <effectiveTime value="249035453222" /> <value unit="" xsi:type="PQ" value="NEGATIVE" /> <referenceRange> < observationRange> <text>NEGATIVE</text> </ observationRange> </referenceRange> </observation> </ component> <component> <observation moodCode="EVN" classCode="OBS"> <templateId root="216.840.1.534682.10...4.2" /> <id nullFlavor="NA" /> <code codeSystem="local" code="CARITO" displayName="UA BLOOD DIPSTICK" /> <statusCode code="completed" /> < effectiveTime value="338120350325" /> <value unit="" xsi:type="PQ" value="1+" /> <interpretationCode codeSystem="local" code="*" /> <referenceRange> <observationRange> <text>NEGATIVE</ text> </observationRange> </referenceRange> </ observation> </component> <component> <observation moodCode= "EVN" classCode="OBS"> <templateId root="216.840.1.045945.10..22.4.2 " /> <id nullFlavor="NA" /> <code codeSystem="local" code= "SPGRU" displayName="UA SPECIFIC GRAVITY" /> <statusCode code= "completed" /> <effectiveTime value="574410866961" /> <value unit="" xsi:type="PQ" value="1.025" /> <referenceRange> < observationRange> <text>1.015-1.025</text> </ observationRange> </referenceRange> </observation> </ component> <component> <observation moodCode="EVN" classCode="OBS"> <templateId root="05.02.840.1.540225.10..22.4.2" /> <id nullFlavor="NA" /> <code codeSystem="local" code="SUSANA" displayName="UR PH" /> <statusCode code="completed" /> <effectiveTime value= "168687348925" /> <value unit="" xsi:type="PQ" value="5.5" /> <referenceRange> <observationRange> <text>5.0-7.0</text > </observationRange> </referenceRange> </observation > </component> <component> <observation moodCode="EVN" classCode="OBS"> <templateId root="05.02.840.1.246834.10.20.22.4.2" /> <id nullFlavor="NA" /> <code codeSystem="local" code="MB" displayName="Microbiology" /> <statusCode code="completed" /> <effectiveTime value="413027790743" /> <value unit="" xsi:type="PQ" value="" /> <referenceRange> <observationRange> <text /> </observationRange> </referenceRange> </ observation> </component> </organizer> </entry> <entry> <organizer moodCode="EVN" classCode="BATTERY"> <templateId root= ".1.525153.10..22.4.1" /> <id nullFlavor="NA" /> <code codeSystem="local" code="UAMICRO" displayName="UA MICROSCOPIC" /> < statusCode code="completed" /> <component> <observation moodCode= "EVN" classCode="OBS"> <templateId root="05.02.840.1.846796.01.03.22.4.2 " /> <id nullFlavor="NA" /> <code codeSystem="local" code= "BACU" displayName="UA BACTERIA" /> <statusCode code="completed" /> <effectiveTime value="992726610874" /> <value unit="" xsi:type= "PQ" value="5+" /> <interpretationCode codeSystem="local" code="*" /> <referenceRange> <observationRange> <text> NEGATIVE</text> </observationRange> </referenceRange> </observation> </component> <component> <observation moodCode ="EVN" classCode="OBS"> <templateId root= "05.02.840.1.342647.01.03.22.4.2" /> <id nullFlavor="NA" /> < code codeSystem="local" code="EPIU" displayName="UA EPITHELIAL CELLS" /> <statusCode code="completed" /> <effectiveTime value="182665307403" /> <value unit="epi/hpf" xsi:type="PQ" value="3+" /> < interpretationCode codeSystem="local" code="*" /> <referenceRange> <observationRange> <text>0 - 1+</text> </ observationRange> </referenceRange> </observation> </ component> <component> <observation moodCode="EVN" classCode="OBS"> <templateId root="05.02.840.1.380022.01.03.224.2" /> <id nullFlavor="NA" /> <code codeSystem="local" code="MUCUSU" displayName= "UA MUCUS" /> <statusCode code="completed" /> <effectiveTime value="" /> <value unit="" xsi:type="PQ" value="3+" /> <interpretationCode codeSystem="local" code="*" /> < referenceRange> <observationRange> <text>NEG TO 1+</text > </observationRange> </referenceRange> </observation > </component> <component> <observation moodCode="EVN" classCode="OBS"> <templateId root="2.16.840.1.845049.01.03.224.2" /> <id nullFlavor="NA" /> <code codeSystem="local" code="RBCU" displayName="UA RBC" /> <statusCode code="completed" /> < effectiveTime value="" /> <value unit="rbc/hpf" xsi:type= "PQ" value="3-5" /> <interpretationCode codeSystem="local" code="*" /> <referenceRange> <observationRange> <text>0 - 3</text> </observationRange> </referenceRange> </ observation> </component> <component> <observation moodCode= "EVN" classCode="OBS"> <templateId root="216.840.1.197163.01.03.22.4.2 " /> <id nullFlavor="NA" /> <code codeSystem="local" code= "UAVOL" displayName="UA VOLUME FOR EXAM" /> <statusCode code="completed " /> <effectiveTime value="" /> <value unit="mL" xsi:type="PQ" value="12.0" /> <referenceRange> < observationRange> <text>(12mL STD)</text> </ observationRange> </referenceRange> </observation> </ component> <component> <observation moodCode="EVN" classCode="OBS"> <templateId root="2.16.840.1.036742.10..22.4.2" /> <id nullFlavor="NA" /> <code codeSystem="local" code="WBCU" displayName=" UA WBC" /> <statusCode code="completed" /> <effectiveTime value="211506112513" /> <value unit="wbc/hpf" xsi:type="PQ" value="0" / > <referenceRange> <observationRange> <text>0 - 5</text> </observationRange> </referenceRange> </ observation> </component> </organizer> </entry> <entry> <organizer moodCode="EVN" classCode="BATTERY"> <templateId root= "2.16.840.1.386276.10..22.4.1" /> <id nullFlavor="NA" /> <code codeSystem="local" code="PREGU" displayName="UR TEST" /> < statusCode code="completed" /> <component> <observation moodCode= "EVN" classCode="OBS"> <templateId root="2.16.840.1.410862.10..22.4.2 " /> <id nullFlavor="NA" /> <code codeSystem="local" code= "PREGU" displayName="UR TEST" /> <statusCode code="completed " /> <effectiveTime value="972469853913" /> <value xsi:type= "ST" value="<pre><b>UR TEST</b> NEGATIVE</pre>" /> < referenceRange> <observationRange> <text>NEGATIVE</text > </observationRange> </referenceRange> </observation > </component> <component> <observation moodCode="EVN" classCode="OBS"> <templateId root="05.02.840.1.610131.10.20.22.4.2" /> <id nullFlavor="NA" /> <code codeSystem="local" code="MB" displayName="Microbiology" /> <statusCode code="completed" /> <effectiveTime value="841353359813" /> <value xsi:type="ST" value="<pre ><b>UR TEST</b> NEGATIVE</pre>" /> <referenceRange> <observationRange> <text /> </observationRange> </referenceRange> </observation> </component> </organizer> </entry> <entry> <organizer moodCode="EVN" classCode="BATTERY"> < templateId root="05.02.840.1.137022.10.20.22.4.1" /> <id nullFlavor="NA" /> <code codeSystem="local" code="UA" displayName="URINALYSIS, ROUTINE" /> <statusCode code="completed" /> <component> <observation moodCode="EVN" classCode="OBS"> <templateId root= "05.02.840.1.787643.10.20.22.4.2" /> <id nullFlavor="NA" /> < code codeSystem="local" code="LEUESU" displayName="UA LEUKOCYTE ESTERASE DIPSTICK" /> <statusCode code="completed" /> <effectiveTime value="830209408261" /> <value unit="" xsi:type="PQ" value="3+" /> <interpretationCode codeSystem="local" code="*" /> < referenceRange> <observationRange> <text>NEGATIVE</text > </observationRange> </referenceRange> </observation > </component> <component> <observation moodCode="EVN" classCode="OBS"> <templateId root="05.02.840.1.593169.10..22.4.2" /> <id nullFlavor="NA" /> <code codeSystem="local" code="NITRIU" displayName="UA NITRITE DIPSTICK" /> <statusCode code="completed" /> <effectiveTime value="" /> <value unit="" xsi:type= "PQ" value="POSITIVE" /> <interpretationCode codeSystem="local" code="* " /> <referenceRange> <observationRange> <text> NEGATIVE</text> </observationRange> </referenceRange> </observation> </component> <component> <observation moodCode ="EVN" classCode="OBS"> <templateId root= "216.840.1.252109.10..4.2" /> <id nullFlavor="NA" /> < code codeSystem="local" code="PROTEIU" displayName="UA PROTEIN DIPSTICK" /> <statusCode code="completed" /> <effectiveTime value= "" /> <value unit="" xsi:type="PQ" value="NEGATIVE" /> <referenceRange> <observationRange> <text>NEGATIVE </text> </observationRange> </referenceRange> </ observation> </component> <component> <observation moodCode= "EVN" classCode="OBS"> <templateId root="16.840.1.170955.10..22.4.2 " /> <id nullFlavor="NA" /> <code codeSystem="local" code= "DGLUU" displayName="UA GLUCOSE DIPSTICK" /> <statusCode code= "completed" /> <effectiveTime value="" /> <value unit="" xsi:type="PQ" value="NEGATIVE" /> <referenceRange> < observationRange> <text>NEGATIVE</text> </ observationRange> </referenceRange> </observation> </ component> <component> <observation moodCode="EVN" classCode="OBS"> <templateId root="216.840.1.439770.10.4.2" /> <id nullFlavor="NA" /> <code codeSystem="local" code="KETONU" displayName= "UA KETONE DIPSTICK" /> <statusCode code="completed" /> < effectiveTime value="" /> <value unit="" xsi:type="PQ" value="NEGATIVE" /> <referenceRange> <observationRange> <text>NEGATIVE</text> </observationRange> </ referenceRange> </observation> </component> <component> <observation moodCode="EVN" classCode="OBS"> <templateId root= "216.840.1.212692.01.03.22.4.2" /> <id nullFlavor="NA" /> < code codeSystem="local" code="UROBILU" displayName="UA UROBILINOGEN DIPSTICK" / > <statusCode code="completed" /> <effectiveTime value= "" /> <value unit="" xsi:type="PQ" value="NORMAL" /> <referenceRange> <observationRange> <text>NORMAL</ text> </observationRange> </referenceRange> </ observation> </component> <component> <observation moodCode= "EVN" classCode="OBS"> <templateId root="16.840.1.606536.01.03.22.4.2 " /> <id nullFlavor="NA" /> <code codeSystem="local" code= "BILU" displayName="UA BILIRUBIN DIPSTICK" /> <statusCode code= "completed" /> <effectiveTime value="" /> <value unit="" xsi:type="PQ" value="NEGATIVE" /> <referenceRange> < observationRange> <text>NEGATIVE</text> </ observationRange> </referenceRange> </observation> </ component> <component> <observation moodCode="EVN" classCode="OBS"> <templateId root="05.02.840.1.757454.10.20.22.4.2" /> <id nullFlavor="NA" /> <code codeSystem="local" code="CARITO" displayName="UA BLOOD DIPSTICK" /> <statusCode code="completed" /> < effectiveTime value="400071569189" /> <value unit="" xsi:type="PQ" value="TRACE" /> <interpretationCode codeSystem="local" code="*" /> <referenceRange> <observationRange> <text> NEGATIVE</text> </observationRange> </referenceRange> </observation> </component> <component> <observation moodCode ="EVN" classCode="OBS"> <templateId root= "840.1.994815.10..4.2" /> <id nullFlavor="NA" /> < code codeSystem="local" code="SPGRU" displayName="UA SPECIFIC GRAVITY" /> <statusCode code="completed" /> <effectiveTime value="466563189900 " /> <value unit="" xsi:type="PQ" value="1.025" /> < referenceRange> <observationRange> <text>1.015-1.025</ text> </observationRange> </referenceRange> </ observation> </component> <component> <observation moodCode= "EVN" classCode="OBS"> <templateId root="05.02.840.1.460346.10.20.22.4.2 " /> <id nullFlavor="NA" /> <code codeSystem="local" code="SUSANA " displayName="UR PH" /> <statusCode code="completed" /> < effectiveTime value="" /> <value unit="" xsi:type="PQ" value="6.0" /> <referenceRange> <observationRange> <text>5.0-7.0</text> </observationRange> </ referenceRange> </observation> </component> </organizer> </entry > <entry> <organizer moodCode="EVN" classCode="BATTERY"> <templateId root="216.840.1.291838.10..4.1" /> <id nullFlavor="NA" /> <code codeSystem="local" code="UAMICRO" displayName="UA MICROSCOPIC" /> < statusCode code="completed" /> <component> <observation moodCode= "EVN" classCode="OBS"> <templateId root="[id number] " /> <id nullFlavor="NA" /> <code codeSystem="local" code= "BACU" displayName="UA BACTERIA" /> <statusCode code="completed" /> <effectiveTime value="" /> <value unit="" xsi:type= "PQ" value="5+" /> <interpretationCode codeSystem="local" code="*" /> <referenceRange> <observationRange> <text> NEGATIVE</text> </observationRange> </referenceRange> </observation> </component> <component> <observation moodCode ="EVN" classCode="OBS"> <templateId root= "[id number]" /> <id nullFlavor="NA" /> < code codeSystem="local" code="EPIU" displayName="UA EPITHELIAL CELLS" /> <statusCode code="completed" /> <effectiveTime value="" /> <value unit="epi/hpf" xsi:type="PQ" value="2+" /> < interpretationCode codeSystem="local" code="*" /> <referenceRange> <observationRange> <text>0 - 1+</text> </ observationRange> </referenceRange> </observation> </ component> <component> <observation moodCode="EVN" classCode="OBS"> <templateId root="216.840.1.663311.10.22.4.2" /> <id nullFlavor="NA" /> <code codeSystem="local" code="RBCU" displayName=" UA RBC" /> <statusCode code="completed" /> <effectiveTime value="" /> <value unit="rbc/hpf" xsi:type="PQ" value="3-5 " /> <interpretationCode codeSystem="local" code="*" /> < referenceRange> <observationRange> <text>0 - 3</text> </observationRange> </referenceRange> </observation> </component> <component> <observation moodCode="EVN" classCode= "OBS"> <templateId root="216.840.1.726762.10.22.4.2" /> < id nullFlavor="NA" /> <code codeSystem="local" code="UAVOL" displayName ="UA VOLUME FOR EXAM" /> <statusCode code="completed" /> < effectiveTime value="" /> <value unit="mL" xsi:type="PQ" value="12.0" /> <referenceRange> <observationRange> <text>(12mL STD)</text> </observationRange> </ referenceRange> </observation> </component> <component> <observation moodCode="EVN" classCode="OBS"> <templateId root= "216.840.1.453787.01.03..4.2" /> <id nullFlavor="NA" /> < code codeSystem="local" code="WBCU" displayName="UA WBC" /> < statusCode code="completed" /> <effectiveTime value="387612327706" /> <value unit="wbc/hpf" xsi:type="PQ" value="10-20" /> < interpretationCode codeSystem="local" code="*" /> <referenceRange> <observationRange> <text>0 - 5</text> </ observationRange> </referenceRange> </observation> </ component> </organizer> </entry> <entry> <organizer moodCode="EVN" classCode="BATTERY"> <templateId root="216.840.1.005760..22.4.1" /> <id nullFlavor="NA" /> <code codeSystem="local" code="LIVER" displayName="HEPATIC FUNCTION PANEL" /> <statusCode code="completed" /> <component> <observation moodCode="EVN" classCode="OBS"> < templateId root="216.840.1.047905...4.2" /> <id nullFlavor="NA " /> <code codeSystem="local" code="BILUC" displayName="BILI UNCONJUGATED" /> <statusCode code="completed" /> < effectiveTime value="[id number]" /> <value unit="mg/dL" xsi:type="PQ " value="0.2" /> <referenceRange> <observationRange> <text>0.0-0.7</text> </observationRange> </ referenceRange> </observation> </component> <component> <observation moodCode="EVN" classCode="OBS"> <templateId root= "216.840.1.396902.01.03.22.4.2" /> <id nullFlavor="NA" /> < code codeSystem="local" code="AST" displayName="AST/SGOT" /> < statusCode code="completed" /> <effectiveTime value="" /> <value unit="Units/L" xsi:type="PQ" value="24" /> < referenceRange> <observationRange> <text>10-37</text> </observationRange> </referenceRange> </observation> </component> <component> <observation moodCode="EVN" classCode= "OBS"> <templateId root="216.840.1.300207.01.03.22.4.2" /> < id nullFlavor="NA" /> <code codeSystem="local" code="ALT" displayName= "ALT/SGPT" /> <statusCode code="completed" /> <effectiveTime value="" /> <value unit="Units/L" xsi:type="PQ" value="23" /> <referenceRange> <observationRange> <text>& lt; 66</text> </observationRange> </referenceRange> < /observation> </component> <component> <observation moodCode= "EVN" classCode="OBS"> <templateId root="216.840.1.097905.10..4.2 " /> <id nullFlavor="NA" /> <code codeSystem="local" code="TP " displayName="TOTAL PROTEIN" /> <statusCode code="completed" /> <effectiveTime value="" /> <value unit="gm/dL" xsi:type ="PQ" value="6.8" /> <referenceRange> <observationRange> <text>6.4-8.2</text> </observationRange> </ referenceRange> </observation> </component> <component> <observation moodCode="EVN" classCode="OBS"> <templateId root= "16.840.1.721815.10..22.4.2" /> <id nullFlavor="NA" /> < code codeSystem="local" code="ALB" displayName="ALBUMIN" /> < statusCode code="completed" /> <effectiveTime value="" /> <value unit="gm/dL" xsi:type="PQ" value="2.7" /> < interpretationCode codeSystem="local" code="*" /> <referenceRange> <observationRange> <text>3.4-5.0</text> </ observationRange> </referenceRange> </observation> </ component> <component> <observation moodCode="EVN" classCode="OBS"> <templateId root="16.840.1.526841.01.03.22.4.2" /> <id nullFlavor="NA" /> <code codeSystem="local" code="BILTOT" displayName= "BILI TOTAL" /> <statusCode code="completed" /> < effectiveTime value="" /> <value unit="mg/dL" xsi:type="PQ " value="0.3" /> <referenceRange> <observationRange> <text>0.0-1.0</text> </observationRange> </ referenceRange> </observation> </component> <component> <observation moodCode="EVN" classCode="OBS"> <templateId root= "05.02.840.1.755482.10.22.4.2" /> <id nullFlavor="NA" /> < code codeSystem="local" code="ALKP" displayName="ALKALINE PHOSPHATASE TOTAL" /> <statusCode code="completed" /> <effectiveTime value= "" /> <value unit="IU/L" xsi:type="PQ" value="81" /> <referenceRange> <observationRange> <text>45-117</ text> </observationRange> </referenceRange> </ observation> </component> <component> <observation moodCode= "EVN" classCode="OBS"> <templateId root="216.840.1.724305.10.20.22.4.2 " /> <id nullFlavor="NA" /> <code codeSystem="local" code= "BILC" displayName="BILI CONJUGATED" /> <statusCode code="completed" / > <effectiveTime value="" /> <value unit="mg/dL" xsi:type="PQ" value="< 0.1" /> <referenceRange> < observationRange> <text>0.0-0.3</text> </ observationRange> </referenceRange> </observation> </ component> </organizer> </entry> <entry> <organizer moodCode="EVN" classCode="BATTERY"> <templateId root="216.840.1.629994.10..22.4.1" /> <id nullFlavor="NA" /> <code codeSystem="local" code="LIP" displayName ="LIPASE" /> <statusCode code="completed" /> <component> < observation moodCode="EVN" classCode="OBS"> <templateId root= "16.840.1.799425.10.20.22.4.2" /> <id nullFlavor="NA" /> < code codeSystem="local" code="LIP" displayName="LIPASE" /> <statusCode code="completed" /> <effectiveTime value="" /> < value unit="Units/L" xsi:type="PQ" value="121" /> <referenceRange> <observationRange> <text>73-393</text> </ observationRange> </referenceRange> </observation> </ component> </organizer> </entry> <entry> <organizer moodCode="EVN" classCode="BATTERY"> <templateId root="16.840.1.619691.10..4.1" /> <id nullFlavor="NA" /> <code codeSystem="local" code="CK" displayName= "CREATINE KINASE (CK/CPK)" /> <statusCode code="completed" /> < component> <observation moodCode="EVN" classCode="OBS"> < templateId root="840.1.742036.01.03.22.4.2" /> <id nullFlavor="NA " /> <code codeSystem="local" code="CK" displayName="CREATINE KINASE ( CK/CPK)" /> <statusCode code="completed" /> <effectiveTime value="859380298605" /> <value unit="Units/L" xsi:type="PQ" value="68" /> <referenceRange> <observationRange> <text>& lt; 193</text> </observationRange> </referenceRange> </observation> </component> </organizer> </entry> <entry> < organizer moodCode="EVN" classCode="BATTERY"> <templateId root= "05.02.840.1.665796.01.03.22.4.1" /> <id nullFlavor="NA" /> <code codeSystem="local" code="LEGUA" displayName="AG LEGIONELLA URINE" /> < statusCode code="completed" /> <component> <observation moodCode= "EVN" classCode="OBS"> <templateId root="16.840.1.354466.10..22.4.2 " /> <id nullFlavor="NA" /> <code codeSystem="local" code="MB " displayName="Microbiology" /> <statusCode code="completed" /> <effectiveTime value="006515778042" /> <value xsi:type="ST" value="< pre><b>AG LEGIONELLA URINE - AG STREPTOCOCCUS PNEUMONIAE</b> See BelowAG LEGIONELLA URINE(F) Kasandra Date/Time: 11/21/2015 20:44 Szuie Date/Time: 11/22/2015 17:16SOURCE: URINESPEC DESC: LEGIONELLA ANTIGENNEGATIVE FOR LEGIONELLA PNEUMOPHILA SEROGROUP [address] [id number] BelowAG STREPTOCOCCUS PNEUMONIAE(F) Kasandra Date/Time: 11/21/2015 20:44 Suzie Date/Time: 11/22/2015 17:16SOURCE: URINESPEC DESC: STREPTOCOCCUS PNEUMONIAENEGATIVE FOR STREPTOCOCCUS PNEUMONIAE[address] [address]</ pre>" /> <referenceRange> <observationRange> < text /> </observationRange> </referenceRange> </ observation> </component> </organizer> </entry> <entry> <organizer moodCode="EVN" classCode="BATTERY"> <templateId root= "2.16.840.1.909231.10.20.22.4.1" /> <id nullFlavor="NA" /> <code codeSystem="local" code="BC" displayName="BLOOD CULTURE" /> <statusCode code="completed" /> <component> <observation moodCode="EVN" classCode="OBS"> <templateId root="2.16.840.1.206334.10.20.22.4.2" /> <id nullFlavor="NA" /> <code codeSystem="local" code="MB" displayName="Microbiology" /> <statusCode code="completed" /> <effectiveTime value="227748789845" /> <value xsi:type="ST" value="<pre ><b>BLOOD CULTURE</b> See BelowIs this the first BLOOD CULTURE or a possible SEPSIS patient? YBLOOD CULTURE(F) Kasandra Date/Time: 11/22/2015 01: 00 Suzie Date/Time: 11/27/2015 12:40SOURCE: BLOODSPEC DESC: [id number] [facility] [place] [address]</pre>" /> <referenceRange> < observationRange> <text /> </observationRange> </referenceRange> </observation> </component> </organizer> </ entry> <entry> <organizer moodCode="EVN" classCode="BATTERY"> < templateId root="2.16.840.1.939609.10.20.22.4.1" /> <id nullFlavor="NA" /> <code codeSystem="local" code="BCLACT" displayName="BC REFLEX LACTIC ACID " /> <statusCode code="completed" /> <component> <observation moodCode="EVN" classCode="OBS"> <templateId root= "216.840.1.859047.10.20.22.4.2" /> <id nullFlavor="NA" /> < code codeSystem="local" code="LACT" displayName="LACTIC ACID" /> < statusCode code="completed" /> <effectiveTime value="603747590643" /> <value unit="mmol/L" xsi:type="PQ" value="2.8" /> < interpretationCode codeSystem="local" code="*" /> <referenceRange> <observationRange> <text>0.5-2.0</text> </ observationRange> </referenceRange> </observation> </ component> </organizer> </entry> <entry> <organizer moodCode="EVN" classCode="BATTERY"> <templateId root="216.840.1.995610.10.20.22.4.1" /> <id nullFlavor="NA" /> <code codeSystem="local" code="BC" displayName= "BLOOD CULTURE" /> <statusCode code="completed" /> <component> <observation moodCode="EVN" classCode="OBS"> <templateId root= "216.840.1.143922.10...4.2" /> <id nullFlavor="NA" /> < code codeSystem="local" code="MB" displayName="Microbiology" /> < statusCode code="completed" /> <effectiveTime value="911413503241" /> <value xsi:type="ST" value="<pre><b>BLOOD CULTURE</b> See BelowIs this the first BLOOD CULTURE or a possible SEPSIS patient? YBLOOD CULTURE(F) Kasandra Date/Time: 11/22/2015 01:09 Suzie Date/ Time: 11/27/2015 12:40SOURCE: BLOODSPEC DESC: [id number] [facility] [place] [address]</pre>" /> < referenceRange> <observationRange> <text /> < /observationRange> </referenceRange> </observation> </ component> </organizer> </entry> <entry> <organizer moodCode="EVN" classCode="BATTERY"> <templateId root="216.840.1.922110.10...4.1" /> <id nullFlavor="NA" /> <code codeSystem="local" code="LACT" displayName="LACTIC ACID" /> <statusCode code="completed" /> < component> <observation moodCode="EVN" classCode="OBS"> < templateId root="2.16.840.1.760572.10..22.4.2" /> <id nullFlavor="NA " /> <code codeSystem="local" code="LACT" displayName="LACTIC ACID" /> <statusCode code="completed" /> <effectiveTime value= "985332111114" /> <value unit="mmol/L" xsi:type="PQ" value="1.5" /> <referenceRange> <observationRange> <text>0.5-2.0 </text> </observationRange> </referenceRange> </ observation> </component> </organizer> </entry> <entry> <organizer moodCode="EVN" classCode="BATTERY"> <templateId root= "05.02.840.1.765749.10..4.1" /> <id nullFlavor="NA" /> <code codeSystem="local" code="CD48" displayName="CD4/8 RATIO" /> <statusCode code="completed" /> <component> <observation moodCode="EVN" classCode="OBS"> <templateId root="05.02.840.1.936327...4.2" /> <id nullFlavor="NA" /> <code codeSystem="local" code="OC17RKP " displayName="CD 3/4 POSITIVE" /> <statusCode code="completed" /> <effectiveTime value="806856271808" /> <value unit="%" xsi: type="PQ" value="19" /> <interpretationCode codeSystem="local" code="* " /> <referenceRange> <observationRange> <text> 34-68</text> </observationRange> </referenceRange> </ observation> </component> <component> <observation moodCode= "EVN" classCode="OBS"> <templateId root="840.1.802996.01.03.22.4.2 " /> <id nullFlavor="NA" /> <code codeSystem="local" code= "UT50MWU" displayName="CD 3/4 ABSOLUTE" /> <statusCode code="completed " /> <effectiveTime value="927489820639" /> <value unit="#" xsi:type="PQ" value="58" /> <interpretationCode codeSystem="local" code ="*" /> <referenceRange> <observationRange> < text>250-2400</text> </observationRange> </referenceRange> </observation> </component> <component> <observation moodCode="EVN" classCode="OBS"> <templateId root= "216.840.1.138062.10...4.2" /> <id nullFlavor="NA" /> < code codeSystem="local" code="[id number]" displayName="CD 3/8 POSITIVE" /> <statusCode code="completed" /> <effectiveTime value="112898420863" / > <value unit="%" xsi:type="PQ" value="48" /> < interpretationCode codeSystem="local" code="*" /> <referenceRange> <observationRange> <text>6-41</text> </ observationRange> </referenceRange> </observation> </ component> <component> <observation moodCode="EVN" classCode="OBS"> <templateId root="16.840.1.366670.10..4.2" /> <id nullFlavor="NA" /> <code codeSystem="local" code="WX38ZFI" displayName= "CD 3/8 ABSOLUTE" /> <statusCode code="completed" /> < effectiveTime value="165019496730" /> <value unit="#" xsi:type="PQ" value="146" /> <interpretationCode codeSystem="local" code="*" /> <referenceRange> <observationRange> <text>150-1800< /text> </observationRange> </referenceRange> </ observation> </component> <component> <observation moodCode= "EVN" classCode="OBS"> <templateId root="216.840.1.094948.10...4.2 " /> <id nullFlavor="NA" /> <code codeSystem="local" code= "[id number]" displayName="CD 4/8 RATIO" /> <statusCode code="completed" /> <effectiveTime value="251838839499" /> <value unit="" xsi: type="PQ" value="0.4" /> <interpretationCode codeSystem="local" code="* " /> <referenceRange> <observationRange> <text> 0.6-4.0</text> </observationRange> </referenceRange> </observation> </component> </organizer> </entry> <entry> < organizer moodCode="EVN" classCode="BATTERY"> <templateId root= "16.840.1.912748.10...4.1" /> <id nullFlavor="NA" /> <code codeSystem="local" code="CBCD" displayName="CBC W/DIFF" /> <statusCode code ="completed" /> <component> <observation moodCode="EVN" classCode= "OBS"> <templateId root="16.840.1.282332....4.2" /> < id nullFlavor="NA" /> <code codeSystem="local" code="CBCCOM" displayName="COMMENT" /> <statusCode code="completed" /> < effectiveTime value="433903221331" /> <value unit="" xsi:type="PQ" value="REVIEWED" /> <referenceRange> <observationRange> <text /> </observationRange> </referenceRange> </observation> </component> <component> <observation moodCode="EVN" classCode="OBS"> <templateId root= "16.840.1.505880.10.22.4.2" /> <id nullFlavor="NA" /> < code codeSystem="local" code="GR#" displayName="GRANULOCYTE #" /> < statusCode code="completed" /> <effectiveTime value="982057387063" /> <value unit="k/cumm" xsi:type="PQ" value="3.4" /> < referenceRange> <observationRange> <text>2.0-9.0</text> </observationRange> </referenceRange> </observation > </component> <component> <observation moodCode="EVN" classCode="OBS"> <templateId root="16.840.1.074618.10.20.22.4.2" /> <id nullFlavor="NA" /> <code codeSystem="local" code="GR% " displayName="GRANULOCYTE %" /> <statusCode code="completed" /> <effectiveTime value="046550785268" /> <value unit="%" xsi: type="PQ" value="91" /> <interpretationCode codeSystem="local" code="* " /> <referenceRange> <observationRange> <text> 50-75</text> </observationRange> </referenceRange> </ observation> </component> <component> <observation moodCode= "EVN" classCode="OBS"> <templateId root="16.840.1.657161.10.2022.4.2 " /> <id nullFlavor="NA" /> <code codeSystem="local" code="LY# " displayName="LYMPHOCYTE #" /> <statusCode code="completed" /> <effectiveTime value="781898023857" /> <value unit="k/cumm" xsi:type ="PQ" value="0.3" /> <interpretationCode codeSystem="local" code="*" / > <referenceRange> <observationRange> <text>1.0 -4.0</text> </observationRange> </referenceRange> </ observation> </component> <component> <observation moodCode= "EVN" classCode="OBS"> <templateId root="2.16.840.1.387408.10..4.2 " /> <id nullFlavor="NA" /> <code codeSystem="local" code="LY& #37;" displayName="LYMPHOCYTE %" /> <statusCode code="completed" / > <effectiveTime value="" /> <value unit="%" xsi:type="PQ" value="8" /> <interpretationCode codeSystem="local" code= "*" /> <referenceRange> <observationRange> < text>20-30</text> </observationRange> </referenceRange> </observation> </component> <component> <observation moodCode="EVN" classCode="OBS"> <templateId root= "216.840.1.708619.01.03.22.4.2" /> <id nullFlavor="NA" /> < code codeSystem="local" code="MCH" displayName="MEAN CELL HGB" /> < statusCode code="completed" /> <effectiveTime value="" /> <value unit="pg" xsi:type="PQ" value="28.3" /> <referenceRange > <observationRange> <text>27.0-33.0</text> < /observationRange> </referenceRange> </observation> </ component> <component> <observation moodCode="EVN" classCode="OBS"> <templateId root="2.16.840.1.096207.10.4.2" /> <id nullFlavor="NA" /> <code codeSystem="local" code="MCHC" displayName= "MEAN CELL HGB CONCENTRATION" /> <statusCode code="completed" /> <effectiveTime value="" /> <value unit="g/dL" xsi:type= "PQ" value="32.2" /> <referenceRange> <observationRange> <text>32.0-37.0</text> </observationRange> </ referenceRange> </observation> </component> <component> <observation moodCode="EVN" classCode="OBS"> <templateId root= "05.02.840.1.620769.22.4.2" /> <id nullFlavor="NA" /> < code codeSystem="local" code="MCV" displayName="MEAN CELL VOLUME" /> < statusCode code="completed" /> <effectiveTime value="976089197648" /> <value unit="fl" xsi:type="PQ" value="87.8" /> <referenceRange > <observationRange> <text>80.0-100.0</text> </observationRange> </referenceRange> </observation> </ component> <component> <observation moodCode="EVN" classCode="OBS"> <templateId root="05.02.840.1.995405.01.03.22.4.2" /> <id nullFlavor="NA" /> <code codeSystem="local" code="MO#" displayName= "MONOCYTE #" /> <statusCode code="completed" /> < effectiveTime value="506733011852" /> <value unit="k/cumm" xsi:type="PQ " value="0.0" /> <interpretationCode codeSystem="local" code="*" /> <referenceRange> <observationRange> <text>0.1-1.0 </text> </observationRange> </referenceRange> </ observation> </component> <component> <observation moodCode= "EVN" classCode="OBS"> <templateId root="2.840.1.358025.01.03.224.2 " /> <id nullFlavor="NA" /> <code codeSystem="local" code="MO& #37;" displayName="MONOCYTE %" /> <statusCode code="completed" /> <effectiveTime value="" /> <value unit="%" xsi :type="PQ" value="1" /> <interpretationCode codeSystem="local" code="* " /> <referenceRange> <observationRange> <text> 4-6</text> </observationRange> </referenceRange> </ observation> </component> <component> <observation moodCode= "EVN" classCode="OBS"> <templateId root="2.16.840.1.560312.01.03.224.2 " /> <id nullFlavor="NA" /> <code codeSystem="local" code="RBC " displayName="RED BLOOD CELL" /> <statusCode code="completed" /> <effectiveTime value="" /> <value unit="m/cumm" xsi: type="PQ" value="4.03" /> <referenceRange> <observationRange > <text>4.00-6.00</text> </observationRange> </ referenceRange> </observation> </component> <component> <observation moodCode="EVN" classCode="OBS"> <templateId root= "216.840.1.596777.01.03.224.2" /> <id nullFlavor="NA" /> < code codeSystem="local" code="RDW" displayName="RED CELL DISTRIBUTION WIDTH" /> <statusCode code="completed" /> <effectiveTime value= "" /> <value unit="%" xsi:type="PQ" value="16.1" /> <interpretationCode codeSystem="local" code="*" /> < referenceRange> <observationRange> <text>11.0-15.6</text > </observationRange> </referenceRange> </observation > </component> <component> <observation moodCode="EVN" classCode="OBS"> <templateId root="16.840.1.057004.10.20.22.4.2" /> <id nullFlavor="NA" /> <code codeSystem="local" code="WBC" displayName="WHITE BLOOD CELL" /> <statusCode code="completed" /> <effectiveTime value="511274119430" /> <value unit="k/cumm" xsi: type="PQ" value="3.8" /> <interpretationCode codeSystem="local" code="* " /> <referenceRange> <observationRange> <text> 5.0-10.0</text> </observationRange> </referenceRange> </observation> </component> <component> <observation moodCode ="EVN" classCode="OBS"> <templateId root= "05.02.840.1.542434.10..22.4.2" /> <id nullFlavor="NA" /> < code codeSystem="local" code="HGBT" displayName="HEMOGLOBIN" /> < statusCode code="completed" /> <effectiveTime value="243958787955" /> <value unit="gm/dL" xsi:type="PQ" value="11.4" /> < interpretationCode codeSystem="local" code="*" /> <referenceRange> <observationRange> <text>12.0-16.0</text> </ observationRange> </referenceRange> </observation> </ component> <component> <observation moodCode="EVN" classCode="OBS"> <templateId root="05.02.840.1.133256.10.20.22.4.2" /> <id nullFlavor="NA" /> <code codeSystem="local" code="HCTT" displayName= "HEMATOCRIT" /> <statusCode code="completed" /> < effectiveTime value="" /> <value unit="%" xsi:type="PQ " value="35.4" /> <interpretationCode codeSystem="local" code="*" /> <referenceRange> <observationRange> <text>37.0- 47.0</text> </observationRange> </referenceRange> </ observation> </component> <component> <observation moodCode= "EVN" classCode="OBS"> <templateId root="840.1.493804.01.03.22.4.2 " /> <id nullFlavor="NA" /> <code codeSystem="local" code="PLT " displayName="PLATELET COUNT" /> <statusCode code="completed" /> <effectiveTime value="" /> <value unit="k/cumm" xsi: type="PQ" value="323" /> <referenceRange> <observationRange > <text>150-400</text> </observationRange> </ referenceRange> </observation> </component> </organizer> </entry > <entry> <organizer moodCode="EVN" classCode="BATTERY"> <templateId root="840.1.224094.01.03.22.4.1" /> <id nullFlavor="NA" /> <code codeSystem="local" code="METABC" displayName="METABOLIC PANEL, COMPREHN" /> <statusCode code="completed" /> <component> <observation moodCode= "EVN" classCode="OBS"> <templateId root="05.02.840.1.887318.22.4.2 " /> <id nullFlavor="NA" /> <code codeSystem="local" code="K" displayName="POTASSIUM" /> <statusCode code="completed" /> < effectiveTime value="937938749243" /> <value unit="mmol/L" xsi:type="PQ " value="3.5" /> <referenceRange> <observationRange> <text>3.5-5.3</text> </observationRange> </ referenceRange> </observation> </component> <component> <observation moodCode="EVN" classCode="OBS"> <templateId root= "216.840.1.565625.10..22.4.2" /> <id nullFlavor="NA" /> < code codeSystem="local" code="eGFR" displayName="EST GFR (MDRD)" /> < statusCode code="completed" /> <effectiveTime value="449484331452" /> <value unit="mL/min" xsi:type="PQ" value="> 60" /> < referenceRange> <observationRange> <text>> 59</text> </observationRange> </referenceRange> </observation > </component> <component> <observation moodCode="EVN" classCode="OBS"> <templateId root="16.840.1.977362.10..22.4.2" /> <id nullFlavor="NA" /> <code codeSystem="local" code="GAP" displayName="ANION GAP" /> <statusCode code="completed" /> < effectiveTime value="353547382889" /> <value unit="mmol/L" xsi:type="PQ " value="7" /> <referenceRange> <observationRange> <text>5-15</text> </observationRange> </referenceRange > </observation> </component> <component> <observation moodCode="EVN" classCode="OBS"> <templateId root= "05.02.840.1.534079.01.03.22.4.2" /> <id nullFlavor="NA" /> < code codeSystem="local" code="eCrCl" displayName="EST CrCl (CG)" /> < statusCode code="completed" /> <effectiveTime value="" /> <value unit="mL/min" xsi:type="PQ" value="> 60" /> < referenceRange> <observationRange> <text>> 59</text> </observationRange> </referenceRange> </observation > </component> <component> <observation moodCode="EVN" classCode="OBS"> <templateId root="216.840.1.813661.01.03.22.4.2" /> <id nullFlavor="NA" /> <code codeSystem="local" code="GLU" displayName="GLUCOSE" /> <statusCode code="completed" /> < effectiveTime value="" /> <value unit="mg/dL" xsi:type="PQ " value="230" /> <interpretationCode codeSystem="local" code="*" /> <referenceRange> <observationRange> <text>70-99</ text> </observationRange> </referenceRange> </ observation> </component> <component> <observation moodCode= "EVN" classCode="OBS"> <templateId root="16.840.1.361715.01.03.22.4.2 " /> <id nullFlavor="NA" /> <code codeSystem="local" code="CA " displayName="CALCIUM" /> <statusCode code="completed" /> < effectiveTime value="668995974058" /> <value unit="mg/dL" xsi:type="PQ " value="8.3" /> <interpretationCode codeSystem="local" code="*" /> <referenceRange> <observationRange> <text>8.5- 10.1</text> </observationRange> </referenceRange> </ observation> </component> <component> <observation moodCode= "EVN" classCode="OBS"> <templateId root="216.840.1.452690.10...4.2 " /> <id nullFlavor="NA" /> <code codeSystem="local" code="BUN " displayName="BLOOD UREA NITROGEN" /> <statusCode code="completed" /> <effectiveTime value="467733860760" /> <value unit="mg/dL" xsi:type="PQ" value="12" /> <referenceRange> < observationRange> <text>7-20</text> </observationRange> </referenceRange> </observation> </component> < component> <observation moodCode="EVN" classCode="OBS"> < templateId root="05.02.840.1.742904.01.03.22.4.2" /> <id nullFlavor="NA " /> <code codeSystem="local" code="CREAT" displayName="CREATININE" /> <statusCode code="completed" /> <effectiveTime value= "996387554260" /> <value unit="mg/dL" xsi:type="PQ" value="0.6" /> <referenceRange> <observationRange> <text>0.6-1.0< /text> </observationRange> </referenceRange> </ observation> </component> <component> <observation moodCode= "EVN" classCode="OBS"> <templateId root="05.02.840.1.895695....4.2 " /> <id nullFlavor="NA" /> <code codeSystem="local" code="NA " displayName="SODIUM" /> <statusCode code="completed" /> < effectiveTime value="057029930390" /> <value unit="mmol/L" xsi:type="PQ " value="141" /> <referenceRange> <observationRange> <text>135-148</text> </observationRange> </ referenceRange> </observation> </component> <component> <observation moodCode="EVN" classCode="OBS"> <templateId root= "216.840.1.119148.10..22.4.2" /> <id nullFlavor="NA" /> < code codeSystem="local" code="CL" displayName="CHLORIDE" /> < statusCode code="completed" /> <effectiveTime value="621413767240" /> <value unit="mmol/L" xsi:type="PQ" value="108" /> < referenceRange> <observationRange> <text>98-110</text> </observationRange> </referenceRange> </observation> </component> <component> <observation moodCode="EVN" classCode ="OBS"> <templateId root="05.02.840.1.319368.10...4.2" /> < id nullFlavor="NA" /> <code codeSystem="local" code="AST" displayName= "AST/SGOT" /> <statusCode code="completed" /> <effectiveTime value="069910037895" /> <value unit="Units/L" xsi:type="PQ" value="13" /> <referenceRange> <observationRange> <text>10 -37</text> </observationRange> </referenceRange> </ observation> </component> <component> <observation moodCode= "EVN" classCode="OBS"> <templateId root="05.02.840.1.047815.10.20.22.4.2 " /> <id nullFlavor="NA" /> <code codeSystem="local" code="ALT " displayName="ALT/SGPT" /> <statusCode code="completed" /> < effectiveTime value="673216441107" /> <value unit="Units/L" xsi:type= "PQ" value="21" /> <referenceRange> <observationRange> <text>< 66</text> </observationRange> </ referenceRange> </observation> </component> <component> <observation moodCode="EVN" classCode="OBS"> <templateId root= "16.840.1.109515.01.03.22.4.2" /> <id nullFlavor="NA" /> < code codeSystem="local" code="CO2" displayName="CARBON DIOXIDE" /> < statusCode code="completed" /> <effectiveTime value="202777649054" /> <value unit="mmol/L" xsi:type="PQ" value="26" /> < referenceRange> <observationRange> <text>21-32</text> </observationRange> </referenceRange> </observation> </component> <component> <observation moodCode="EVN" classCode= "OBS"> <templateId root="216.840.1.743516.01.03.22.4.2" /> < id nullFlavor="NA" /> <code codeSystem="local" code="TP" displayName= "TOTAL PROTEIN" /> <statusCode code="completed" /> < effectiveTime value="933294640888" /> <value unit="gm/dL" xsi:type="PQ " value="6.0" /> <interpretationCode codeSystem="local" code="*" /> <referenceRange> <observationRange> <text>6.4-8.2 </text> </observationRange> </referenceRange> </ observation> </component> <component> <observation moodCode= "EVN" classCode="OBS"> <templateId root="216.840.1.983595.10.22.4.2 " /> <id nullFlavor="NA" /> <code codeSystem="local" code="ALB " displayName="ALBUMIN" /> <statusCode code="completed" /> < effectiveTime value="015791555286" /> <value unit="gm/dL" xsi:type="PQ " value="2.4" /> <interpretationCode codeSystem="local" code="*" /> <referenceRange> <observationRange> <text>3.4-5.0 </text> </observationRange> </referenceRange> </ observation> </component> <component> <observation moodCode= "EVN" classCode="OBS"> <templateId root="16.840.1.190828...4.2 " /> <id nullFlavor="NA" /> <code codeSystem="local" code= "BILTOT" displayName="BILI TOTAL" /> <statusCode code="completed" /> <effectiveTime value="696622246069" /> <value unit="mg/dL" xsi: type="PQ" value="< 0.1" /> <referenceRange> < observationRange> <text>0.0-1.0</text> </ observationRange> </referenceRange> </observation> </ component> <component> <observation moodCode="EVN" classCode="OBS"> <templateId root="16.840.1.663571.10.22.4.2" /> <id nullFlavor="NA" /> <code codeSystem="local" code="ALKP" displayName= "ALKALINE PHOSPHATASE TOTAL" /> <statusCode code="completed" /> <effectiveTime value="538833386275" /> <value unit="IU/L" xsi:type= "PQ" value="69" /> <referenceRange> <observationRange> <text>45-117</text> </observationRange> </ referenceRange> </observation> </component> </organizer> </entry > <entry> <organizer moodCode="EVN" classCode="BATTERY"> <templateId root="05.02.840.1.065892.10..22.4.1" /> <id nullFlavor="NA" /> <code codeSystem="local" code="PHOS" displayName="PHOSPHORUS" /> <statusCode code ="completed" /> <component> <observation moodCode="EVN" classCode= "OBS"> <templateId root="840.1.335662.01.03.22.4.2" /> < id nullFlavor="NA" /> <code codeSystem="local" code="PHOS" displayName= "PHOSPHORUS" /> <statusCode code="completed" /> < effectiveTime value="451810487905" /> <value unit="mg/dL" xsi:type="PQ " value="2.3" /> <interpretationCode codeSystem="local" code="*" /> <referenceRange> <observationRange> <text>2.5-4.9 </text> </observationRange> </referenceRange> </ observation> </component> </organizer> </entry> <entry> <organizer moodCode="EVN" classCode="BATTERY"> <templateId root= "840.1.503985.22.4.1" /> <id nullFlavor="NA" /> <code codeSystem="local" code="MAG" displayName="MAGNESIUM" /> <statusCode code= "completed" /> <component> <observation moodCode="EVN" classCode= "OBS"> <templateId root="05.02.840.1.290181.10..22.4.2" /> < id nullFlavor="NA" /> <code codeSystem="local" code="MAG" displayName= "MAGNESIUM" /> <statusCode code="completed" /> <effectiveTime value="558917364435" /> <value unit="mg/dL" xsi:type="PQ" value="1.8" / > <referenceRange> <observationRange> <text>1.8 -2.4</text> </observationRange> </referenceRange> </ observation> </component> </organizer> </entry> <entry> <organizer moodCode="EVN" classCode="BATTERY"> <templateId root= "216.840.1.433664.10..22.4.1" /> <id nullFlavor="NA" /> <code codeSystem="local" code="LIP" displayName="LIPASE" /> <statusCode code= "completed" /> <component> <observation moodCode="EVN" classCode= "OBS"> <templateId root="216.840.1.982466.10..22.4.2" /> < id nullFlavor="NA" /> <code codeSystem="local" code="LIP" displayName= "LIPASE" /> <statusCode code="completed" /> <effectiveTime value="672937568116" /> <value unit="Units/L" xsi:type="PQ" value="150 " /> <referenceRange> <observationRange> <text> 73-393</text> </observationRange> </referenceRange> < /observation> </component> </organizer> </entry> <entry> < organizer moodCode="EVN" classCode="BATTERY"> <templateId root= "216.840.1.070566.10..22.4.1" /> <id nullFlavor="NA" /> <code codeSystem="local" code="VRP" displayName="VIRUS RESPIRATORY PROFILE" /> < statusCode code="completed" /> <component> <observation moodCode= "EVN" classCode="OBS"> <templateId root="2.16.840.1.190648.10..22.4.2 " /> <id nullFlavor="NA" /> <code codeSystem="local" code="MB " displayName="Microbiology" /> <statusCode code="completed" /> <effectiveTime value="789993204577" /> <value xsi:type="ST" value="< pre><b>RESPIRATORY PROFILE</b> See BelowRESPIRATORY PROFILE(F) Kasandra Date /Time: 11/22/2015 08:33 Suzie Date/Time: 2015 09:59SOURCE: NASOPHARYNGEALSPEC DESC: ADENOVIRUSNOT DETECTEDBORDETELLA PERTUSSISNOT DETECTEDCHLAMYDIA PNEUMONIAENOT DETECTEDCORONAVIRUS 229ENOT DETECTEDCORONAVIRUS LCZ3NJO DETECTEDCORONAVIRUS LX80VYA DETECTEDCORONAVIRUS PL23AKL DETECTEDHUMAN METAPNEUMOVIRUSNOT DETECTEDINFLUENZA A 2009 H1NOT DETECTEDINFLUENZA A H1NOT DETECTEDINFLUENZA A H3NOT DETECTEDINFLUENZA ANOT DETECTEDINFLUENZA BNOT DETECTEDMYCOPLASMA PNEUMONIAENOT DETECTEDPARAINFLUENZA 1NOT DETECTEDPARAINFLUENZA 2NOT DETECTEDPARAINFLUENZA 3NOT DETECTEDPARAINFLUENZA 4NOT DETECTEDRHINOVIRUS/ENTEROVIRUSNOT DETECTEDRSVNOT DETECTEDNOR[facility] [place] [address]</pre>" /> <referenceRange> <observationRange> <text /> </observationRange> </referenceRange> </observation> </ component> </organizer> </entry> <entry> <organizer moodCode="EVN" classCode="BATTERY"> <templateId root="2.16.840.1.812785.10.20.22.4.1" /> <id nullFlavor="NA" /> <code codeSystem="local" code="CBC" displayName ="CBC" /> <statusCode code="completed" /> <component> < observation moodCode="EVN" classCode="OBS"> <templateId root= "05.02.840.1.708001.10.20.22.4.2" /> <id nullFlavor="NA" /> < code codeSystem="local" code="MCH" displayName="MEAN CELL HGB" /> < statusCode code="completed" /> <effectiveTime value="" /> <value unit="pg" xsi:type="PQ" value="28.5" /> <referenceRange > <observationRange> <text>27.0-33.0</text> < /observationRange> </referenceRange> </observation> </ component> <component> <observation moodCode="EVN" classCode="OBS"> <templateId root="05.02.840.1.171992.10.22.4.2" /> <id nullFlavor="NA" /> <code codeSystem="local" code="MCHC" displayName= "MEAN CELL HGB CONCENTRATION" /> <statusCode code="completed" /> <effectiveTime value="" /> <value unit="g/dL" xsi:type= "PQ" value="32.4" /> <referenceRange> <observationRange> <text>32.0-37.0</text> </observationRange> </ referenceRange> </observation> </component> <component> <observation moodCode="EVN" classCode="OBS"> <templateId root= "05.02.840.1.318033.10.20.22.4.2" /> <id nullFlavor="NA" /> < code codeSystem="local" code="MCV" displayName="MEAN CELL VOLUME" /> < statusCode code="completed" /> <effectiveTime value="" /> <value unit="fl" xsi:type="PQ" value="88.1" /> <referenceRange > <observationRange> <text>80.0-100.0</text> </observationRange> </referenceRange> </observation> </ component> <component> <observation moodCode="EVN" classCode="OBS"> <templateId root="216.840.1.608515.10.20.22.4.2" /> <id nullFlavor="NA" /> <code codeSystem="local" code="RBC" displayName=" RED BLOOD CELL" /> <statusCode code="completed" /> < effectiveTime value="068752763584" /> <value unit="m/cumm" xsi:type="PQ " value="3.86" /> <interpretationCode codeSystem="local" code="*" /> <referenceRange> <observationRange> <text>4.00- 6.00</text> </observationRange> </referenceRange> </ observation> </component> <component> <observation moodCode= "EVN" classCode="OBS"> <templateId root="16.840.1.674241.10..22.4.2 " /> <id nullFlavor="NA" /> <code codeSystem="local" code="RDW " displayName="RED CELL DISTRIBUTION WIDTH" /> <statusCode code= "completed" /> <effectiveTime value="" /> <value unit="%" xsi:type="PQ" value="16.1" /> <interpretationCode codeSystem="local" code="*" /> <referenceRange> < observationRange> <text>11.0-15.6</text> </ observationRange> </referenceRange> </observation> </ component> <component> <observation moodCode="EVN" classCode="OBS"> <templateId root="216.840.1.223874.10.20.22.4.2" /> <id nullFlavor="NA" /> <code codeSystem="local" code="WBC" displayName= "WHITE BLOOD CELL" /> <statusCode code="completed" /> < effectiveTime value="" /> <value unit="k/cumm" xsi:type="PQ " value="14.5" /> <interpretationCode codeSystem="local" code="*" /> <referenceRange> <observationRange> <text>5.0- 10.0</text> </observationRange> </referenceRange> </ observation> </component> <component> <observation moodCode= "EVN" classCode="OBS"> <templateId root="2.16.840.1.790561...4.2 " /> <id nullFlavor="NA" /> <code codeSystem="local" code= "HGBT" displayName="HEMOGLOBIN" /> <statusCode code="completed" /> <effectiveTime value="" /> <value unit="gm/dL" xsi: type="PQ" value="11.0" /> <interpretationCode codeSystem="local" code= "*" /> <referenceRange> <observationRange> < text>12.0-16.0</text> </observationRange> </referenceRange> </observation> </component> <component> <observation moodCode="EVN" classCode="OBS"> <templateId root= "216.840.1.875913.10.22.4.2" /> <id nullFlavor="NA" /> < code codeSystem="local" code="HCTT" displayName="HEMATOCRIT" /> < statusCode code="completed" /> <effectiveTime value="" /> <value unit="%" xsi:type="PQ" value="34.0" /> < interpretationCode codeSystem="local" code="*" /> <referenceRange> <observationRange> <text>37.0-47.0</text> </ observationRange> </referenceRange> </observation> </ component> <component> <observation moodCode="EVN" classCode="OBS"> <templateId root="216.840.1.016059.10.20.22.4.2" /> <id nullFlavor="NA" /> <code codeSystem="local" code="PLT" displayName= "PLATELET COUNT" /> <statusCode code="completed" /> < effectiveTime value="020010184002" /> <value unit="k/cumm" xsi:type="PQ " value="371" /> <referenceRange> <observationRange> <text>150-400</text> </observationRange> </ referenceRange> </observation> </component> </organizer> </entry > <entry> <organizer moodCode="EVN" classCode="BATTERY"> <templateId root="216.840.1.911027.10..22.4.1" /> <id nullFlavor="NA" /> <code codeSystem="local" code="RENAL" displayName="RENAL FUNCTION PANEL" /> < statusCode code="completed" /> <component> <observation moodCode= "EVN" classCode="OBS"> <templateId root="16.840.1.827326.10..22.4.2 " /> <id nullFlavor="NA" /> <code codeSystem="local" code="K" displayName="POTASSIUM" /> <statusCode code="completed" /> < effectiveTime value="952600823648" /> <value unit="mmol/L" xsi:type="PQ " value="4.3" /> <referenceRange> <observationRange> <text>3.5-5.3</text> </observationRange> </ referenceRange> </observation> </component> <component> <observation moodCode="EVN" classCode="OBS"> <templateId root= "216.840.1.135091.10..22.4.2" /> <id nullFlavor="NA" /> < code codeSystem="local" code="eGFR" displayName="EST GFR (MDRD)" /> < statusCode code="completed" /> <effectiveTime value="" /> <value unit="mL/min" xsi:type="PQ" value="> 60" /> < referenceRange> <observationRange> <text>> 59</text> </observationRange> </referenceRange> </observation > </component> <component> <observation moodCode="EVN" classCode="OBS"> <templateId root="216.840.1.781920.10...4.2" /> <id nullFlavor="NA" /> <code codeSystem="local" code="GAP" displayName="ANION GAP" /> <statusCode code="completed" /> < effectiveTime value="" /> <value unit="mmol/L" xsi:type="PQ " value="7" /> <referenceRange> <observationRange> <text>5-15</text> </observationRange> </referenceRange > </observation> </component> <component> <observation moodCode="EVN" classCode="OBS"> <templateId root= "216.840.1.514371.10..22.4.2" /> <id nullFlavor="NA" /> < code codeSystem="local" code="eCrCl" displayName="EST CrCl (CG)" /> < statusCode code="completed" /> <effectiveTime value="" /> <value unit="mL/min" xsi:type="PQ" value="> 60" /> < referenceRange> <observationRange> <text>> 59</text> </observationRange> </referenceRange> </observation > </component> <component> <observation moodCode="EVN" classCode="OBS"> <templateId root="05.02.840.1.252273.10.20.22.4.2" /> <id nullFlavor="NA" /> <code codeSystem="local" code="GLU" displayName="GLUCOSE" /> <statusCode code="completed" /> < effectiveTime value="" /> <value unit="mg/dL" xsi:type="PQ " value="156" /> <interpretationCode codeSystem="local" code="*" /> <referenceRange> <observationRange> <text>70-99</ text> </observationRange> </referenceRange> </ observation> </component> <component> <observation moodCode= "EVN" classCode="OBS"> <templateId root="05.02.840.1.281844.10..22.4.2 " /> <id nullFlavor="NA" /> <code codeSystem="local" code="CA " displayName="CALCIUM" /> <statusCode code="completed" /> < effectiveTime value="" /> <value unit="mg/dL" xsi:type="PQ " value="8.3" /> <interpretationCode codeSystem="local" code="*" /> <referenceRange> <observationRange> <text>8.5- 10.1</text> </observationRange> </referenceRange> </ observation> </component> <component> <observation moodCode= "EVN" classCode="OBS"> <templateId root="05.02.840.1.642837.10.20.22.4.2 " /> <id nullFlavor="NA" /> <code codeSystem="local" code="BUN " displayName="BLOOD UREA NITROGEN" /> <statusCode code="completed" /> <effectiveTime value="" /> <value unit="mg/dL" xsi:type="PQ" value="10" /> <referenceRange> < observationRange> <text>7-20</text> </observationRange> </referenceRange> </observation> </component> < component> <observation moodCode="EVN" classCode="OBS"> < templateId root="2.16.840.1.015411.10..22.4.2" /> <id nullFlavor="NA " /> <code codeSystem="local" code="CREAT" displayName="CREATININE" /> <statusCode code="completed" /> <effectiveTime value= "225214560525" /> <value unit="mg/dL" xsi:type="PQ" value="0.5" /> <interpretationCode codeSystem="local" code="*" /> < referenceRange> <observationRange> <text>0.6-1.0</text> </observationRange> </referenceRange> </observation > </component> <component> <observation moodCode="EVN" classCode="OBS"> <templateId root="2.16.840.1.626738.10.20.22.4.2" /> <id nullFlavor="NA" /> <code codeSystem="local" code="NA" displayName="SODIUM" /> <statusCode code="completed" /> < effectiveTime value="263486676198" /> <value unit="mmol/L" xsi:type="PQ " value="142" /> <referenceRange> <observationRange> <text>135-148</text> </observationRange> </ referenceRange> </observation> </component> <component> <observation moodCode="EVN" classCode="OBS"> <templateId root= "16.840.1.316638.10.22.4.2" /> <id nullFlavor="NA" /> < code codeSystem="local" code="CL" displayName="CHLORIDE" /> < statusCode code="completed" /> <effectiveTime value="" /> <value unit="mmol/L" xsi:type="PQ" value="106" /> < referenceRange> <observationRange> <text>98-110</text> </observationRange> </referenceRange> </observation> </component> <component> <observation moodCode="EVN" classCode ="OBS"> <templateId root="16.840.1.445318.22.4.2" /> < id nullFlavor="NA" /> <code codeSystem="local" code="CO2" displayName= "CARBON DIOXIDE" /> <statusCode code="completed" /> < effectiveTime value="" /> <value unit="mmol/L" xsi:type="PQ " value="29" /> <referenceRange> <observationRange> <text>21-32</text> </observationRange> </ referenceRange> </observation> </component> <component> <observation moodCode="EVN" classCode="OBS"> <templateId root= "16.840.1.365635.10.2022.4.2" /> <id nullFlavor="NA" /> < code codeSystem="local" code="ALB" displayName="ALBUMIN" /> < statusCode code="completed" /> <effectiveTime value="" /> <value unit="gm/dL" xsi:type="PQ" value="2.2" /> < interpretationCode codeSystem="local" code="*" /> <referenceRange> <observationRange> <text>3.4-5.0</text> </ observationRange> </referenceRange> </observation> </ component> <component> <observation moodCode="EVN" classCode="OBS"> <templateId root="16.840.1.382540.10..22.4.2" /> <id nullFlavor="NA" /> <code codeSystem="local" code="PHOS" displayName= "PHOSPHORUS" /> <statusCode code="completed" /> < effectiveTime value="839979202031" /> <value unit="mg/dL" xsi:type="PQ " value="2.6" /> <referenceRange> <observationRange> <text>2.5-4.9</text> </observationRange> </ referenceRange> </observation> </component> </organizer> </entry > <entry> <organizer moodCode="EVN" classCode="BATTERY"> <templateId root="16.840.1.752728.10..22.4.1" /> <id nullFlavor="NA" /> <code codeSystem="local" code="MAG" displayName="MAGNESIUM" /> <statusCode code= "completed" /> <component> <observation moodCode="EVN" classCode= "OBS"> <templateId root="16.840.1.018498.10..22.4.2" /> < id nullFlavor="NA" /> <code codeSystem="local" code="MAG" displayName= "MAGNESIUM" /> <statusCode code="completed" /> <effectiveTime value="668440276087" /> <value unit="mg/dL" xsi:type="PQ" value="1.9" / > <referenceRange> <observationRange> <text>1.8 -2.4</text> </observationRange> </referenceRange> </ observation> </component> </organizer> </entry> <entry> <organizer moodCode="EVN" classCode="BATTERY"> <templateId root= "216.840.1.894808.10..4.1" /> <id nullFlavor="NA" /> <code codeSystem="local" code="RENAL" displayName="RENAL FUNCTION PANEL" /> < statusCode code="completed" /> <component> <observation moodCode= "EVN" classCode="OBS"> <templateId root="216.840.1.879564.10..4.2 " /> <id nullFlavor="NA" /> <code codeSystem="local" code="K" displayName="POTASSIUM" /> <statusCode code="completed" /> < effectiveTime value="" /> <value unit="mmol/L" xsi:type="PQ " value="3.7" /> <referenceRange> <observationRange> <text>3.5-5.3</text> </observationRange> </ referenceRange> </observation> </component> <component> <observation moodCode="EVN" classCode="OBS"> <templateId root= "216.840.1.391115.10..4.2" /> <id nullFlavor="NA" /> < code codeSystem="local" code="eGFR" displayName="EST GFR (MDRD)" /> < statusCode code="completed" /> <effectiveTime value="220345451571" /> <value unit="mL/min" xsi:type="PQ" value="> 60" /> < referenceRange> <observationRange> <text>> 59</text> </observationRange> </referenceRange> </observation > </component> <component> <observation moodCode="EVN" classCode="OBS"> <templateId root="216.840.1.610410.22.4.2" /> <id nullFlavor="NA" /> <code codeSystem="local" code="GAP" displayName="ANION GAP" /> <statusCode code="completed" /> < effectiveTime value="" /> <value unit="mmol/L" xsi:type="PQ " value="2" /> <interpretationCode codeSystem="local" code="*" /> <referenceRange> <observationRange> <text>5-15</ text> </observationRange> </referenceRange> </ observation> </component> <component> <observation moodCode= "EVN" classCode="OBS"> <templateId root="05.02.840.1.567693.01.03.22.4.2 " /> <id nullFlavor="NA" /> <code codeSystem="local" code= "eCrCl" displayName="EST CrCl (CG)" /> <statusCode code="completed" /> <effectiveTime value="" /> <value unit="mL/min" xsi:type="PQ" value="> 60" /> <referenceRange> < observationRange> <text>> 59</text> </ observationRange> </referenceRange> </observation> </ component> <component> <observation moodCode="EVN" classCode="OBS"> <templateId root="05.02.840.1.315050.01.03.22.4.2" /> <id nullFlavor="NA" /> <code codeSystem="local" code="GLU" displayName= "GLUCOSE" /> <statusCode code="completed" /> <effectiveTime value="" /> <value unit="mg/dL" xsi:type="PQ" value="98" / > <referenceRange> <observationRange> <text>70- 99</text> </observationRange> </referenceRange> </ observation> </component> <component> <observation moodCode= "EVN" classCode="OBS"> <templateId root="216.840.1.111347.10.22.4.2 " /> <id nullFlavor="NA" /> <code codeSystem="local" code="CA " displayName="CALCIUM" /> <statusCode code="completed" /> < effectiveTime value="" /> <value unit="mg/dL" xsi:type="PQ " value="7.8" /> <interpretationCode codeSystem="local" code="*" /> <referenceRange> <observationRange> <text>8.5- 10.1</text> </observationRange> </referenceRange> </ observation> </component> <component> <observation moodCode= "EVN" classCode="OBS"> <templateId root="216.840.1.572807.01.03.22.4.2 " /> <id nullFlavor="NA" /> <code codeSystem="local" code="BUN " displayName="BLOOD UREA NITROGEN" /> <statusCode code="completed" /> <effectiveTime value="" /> <value unit="mg/dL" xsi:type="PQ" value="17" /> <referenceRange> < observationRange> <text>7-20</text> </observationRange> </referenceRange> </observation> </component> < component> <observation moodCode="EVN" classCode="OBS"> < templateId root="216.840.1.332173...22.4.2" /> <id nullFlavor="NA " /> <code codeSystem="local" code="CREAT" displayName="CREATININE" /> <statusCode code="completed" /> <effectiveTime value= "[id number]" /> <value unit="mg/dL" xsi:type="PQ" value="0.5" /> <interpretationCode codeSystem="local" code="*" /> < referenceRange> <observationRange> <text>0.6-1.0</text> </observationRange> </referenceRange> </observation > </component> <component> <observation moodCode="EVN" classCode="OBS"> <templateId root="16.840.1.489028.22.4.2" /> <id nullFlavor="NA" /> <code codeSystem="local" code="NA" displayName="SODIUM" /> <statusCode code="completed" /> < effectiveTime value="" /> <value unit="mmol/L" xsi:type="PQ " value="139" /> <referenceRange> <observationRange> <text>135-148</text> </observationRange> </ referenceRange> </observation> </component> <component> <observation moodCode="EVN" classCode="OBS"> <templateId root= "05.02.840.1.379046.22.4.2" /> <id nullFlavor="NA" /> < code codeSystem="local" code="CL" displayName="CHLORIDE" /> < statusCode code="completed" /> <effectiveTime value="" /> <value unit="mmol/L" xsi:type="PQ" value="103" /> < referenceRange> <observationRange> <text>98-110</text> </observationRange> </referenceRange> </observation> </component> <component> <observation moodCode="EVN" classCode ="OBS"> <templateId root="05.02.840.1.861245.102022.4.2" /> < id nullFlavor="NA" /> <code codeSystem="local" code="CO2" displayName= "CARBON DIOXIDE" /> <statusCode code="completed" /> < effectiveTime value="" /> <value unit="mmol/L" xsi:type="PQ " value="34" /> <interpretationCode codeSystem="local" code="*" /> <referenceRange> <observationRange> <text>21-32</ text> </observationRange> </referenceRange> </ observation> </component> <component> <observation moodCode= "EVN" classCode="OBS"> <templateId root="2.16.840.1.285159.10..22.4.2 " /> <id nullFlavor="NA" /> <code codeSystem="local" code="ALB " displayName="ALBUMIN" /> <statusCode code="completed" /> < effectiveTime value="" /> <value unit="gm/dL" xsi:type="PQ " value="2.3" /> <interpretationCode codeSystem="local" code="*" /> <referenceRange> <observationRange> <text>3.4-5.0 </text> </observationRange> </referenceRange> </ observation> </component> <component> <observation moodCode= "EVN" classCode="OBS"> <templateId root="16.840.1.269809.10..22.4.2 " /> <id nullFlavor="NA" /> <code codeSystem="local" code= "PHOS" displayName="PHOSPHORUS" /> <statusCode code="completed" /> <effectiveTime value="" /> <value unit="mg/dL" xsi: type="PQ" value="2.8" /> <referenceRange> <observationRange > <text>2.5-4.9</text> </observationRange> </ referenceRange> </observation> </component> </organizer> </entry > <entry> <organizer moodCode="EVN" classCode="BATTERY"> <templateId root="840.1.766823.01.03.22.4.1" /> <id nullFlavor="NA" /> <code codeSystem="local" code="MAG" displayName="MAGNESIUM" /> <statusCode code= "completed" /> <component> <observation moodCode="EVN" classCode= "OBS"> <templateId root="840.1.434696.01.03.22.4.2" /> < id nullFlavor="NA" /> <code codeSystem="local" code="MAG" displayName= "MAGNESIUM" /> <statusCode code="completed" /> <effectiveTime value="[id number]" /> <value unit="mg/dL" xsi:type="PQ" value="2.0" / > <referenceRange> <observationRange> <text>1.8 -2.4</text> </observationRange> </referenceRange> </ observation> </component> </organizer> </entry> <entry> <organizer moodCode="EVN" classCode="BATTERY"> <templateId root= "840.1.889063.01.03.22.4.1" /> <id nullFlavor="NA" /> <code codeSystem="local" code="CBCD" displayName="CBC W/DIFF" /> <statusCode code ="completed" /> <component> <observation moodCode="EVN" classCode= "OBS"> <templateId root="840.1.999805.01.03.22.4.2" /> < id nullFlavor="NA" /> <code codeSystem="local" code="GR#" displayName= "GRANULOCYTE #" /> <statusCode code="completed" /> < effectiveTime value="" /> <value unit="k/cumm" xsi:type="PQ " value="7.6" /> <referenceRange> <observationRange> <text>2.0-9.0</text> </observationRange> </ referenceRange> </observation> </component> <component> <observation moodCode="EVN" classCode="OBS"> <templateId root= "16.840.1.321837.10.22.4.2" /> <id nullFlavor="NA" /> < code codeSystem="local" code="GR%" displayName="GRANULOCYTE %" /> <statusCode code="completed" /> <effectiveTime value=" " /> <value unit="%" xsi:type="PQ" value="79" /> < interpretationCode codeSystem="local" code="*" /> <referenceRange> <observationRange> <text>50-75</text> </ observationRange> </referenceRange> </observation> </ component> <component> <observation moodCode="EVN" classCode="OBS"> <templateId root="16.840.1.141569.10.4.2" /> <id nullFlavor="NA" /> <code codeSystem="local" code="LY#" displayName= "LYMPHOCYTE #" /> <statusCode code="completed" /> < effectiveTime value="" /> <value unit="k/cumm" xsi:type="PQ " value="1.2" /> <referenceRange> <observationRange> <text>1.0-4.0</text> </observationRange> </ referenceRange> </observation> </component> <component> <observation moodCode="EVN" classCode="OBS"> <templateId root= "216.840.1.353950.10.2022.4.2" /> <id nullFlavor="NA" /> < code codeSystem="local" code="LY%" displayName="LYMPHOCYTE %" /> <statusCode code="completed" /> <effectiveTime value="" /> <value unit="%" xsi:type="PQ" value="13" /> < interpretationCode codeSystem="local" code="*" /> <referenceRange> <observationRange> <text>20-30</text> </ observationRange> </referenceRange> </observation> </ component> <component> <observation moodCode="EVN" classCode="OBS"> <templateId root="05.02.840.1.807198.1022.4.2" /> <id nullFlavor="NA" /> <code codeSystem="local" code="MCH" displayName= "MEAN CELL HGB" /> <statusCode code="completed" /> < effectiveTime value="" /> <value unit="pg" xsi:type="PQ" value="28.4" /> <referenceRange> <observationRange> <text>27.0-33.0</text> </observationRange> </ referenceRange> </observation> </component> <component> <observation moodCode="EVN" classCode="OBS"> <templateId root= "05.02.840.1.479138.10.2022.4.2" /> <id nullFlavor="NA" /> < code codeSystem="local" code="MCHC" displayName="MEAN CELL HGB CONCENTRATION" / > <statusCode code="completed" /> <effectiveTime value= "" /> <value unit="g/dL" xsi:type="PQ" value="31.7" /> <interpretationCode codeSystem="local" code="*" /> < referenceRange> <observationRange> <text>32.0-37.0</text > </observationRange> </referenceRange> </observation > </component> <component> <observation moodCode="EVN" classCode="OBS"> <templateId root="05.02.840.1.669351.10.20.4.2" /> <id nullFlavor="NA" /> <code codeSystem="local" code="MCV" displayName="MEAN CELL VOLUME" /> <statusCode code="completed" /> <effectiveTime value="" /> <value unit="fl" xsi:type= "PQ" value="89.5" /> <referenceRange> <observationRange> <text>80.0-100.0</text> </observationRange> </ referenceRange> </observation> </component> <component> <observation moodCode="EVN" classCode="OBS"> <templateId root= "840.1.242466.01.03.22.4.2" /> <id nullFlavor="NA" /> < code codeSystem="local" code="MO#" displayName="MONOCYTE #" /> < statusCode code="completed" /> <effectiveTime value="" /> <value unit="k/cumm" xsi:type="PQ" value="0.6" /> < referenceRange> <observationRange> <text>0.1-1.0</text> </observationRange> </referenceRange> </observation > </component> <component> <observation moodCode="EVN" classCode="OBS"> <templateId root="05.02.840.1.642549.102022.4.2" /> <id nullFlavor="NA" /> <code codeSystem="local" code="MO% " displayName="MONOCYTE %" /> <statusCode code="completed" /> <effectiveTime value="421290131480" /> <value unit="%" xsi: type="PQ" value="6" /> <referenceRange> <observationRange> <text>4-6</text> </observationRange> </ referenceRange> </observation> </component> <component> <observation moodCode="EVN" classCode="OBS"> <templateId root= "2.16.840.1.003542.10..22.4.2" /> <id nullFlavor="NA" /> < code codeSystem="local" code="RBC" displayName="RED BLOOD CELL" /> < statusCode code="completed" /> <effectiveTime value="[id number]" /> <value unit="m/cumm" xsi:type="PQ" value="3.73" /> < interpretationCode codeSystem="local" code="*" /> <referenceRange> <observationRange> <text>4.00-6.00</text> </ observationRange> </referenceRange> </observation> </ component> <component> <observation moodCode="EVN" classCode="OBS"> <templateId root="2.16.840.1.161083.10.20.22.4.2" /> <id nullFlavor="NA" /> <code codeSystem="local" code="RDW" displayName=" RED CELL DISTRIBUTION WIDTH" /> <statusCode code="completed" /> <effectiveTime value="638122412096" /> <value unit="%" xsi:type= "PQ" value="17.1" /> <interpretationCode codeSystem="local" code="*" / > <referenceRange> <observationRange> <text> 11.0-15.6</text> </observationRange> </referenceRange> </observation> </component> <component> <observation moodCode="EVN" classCode="OBS"> <templateId root= "05.02.840.1.252844.10.20.22.4.2" /> <id nullFlavor="NA" /> < code codeSystem="local" code="WBC" displayName="WHITE BLOOD CELL" /> < statusCode code="completed" /> <effectiveTime value="" /> <value unit="k/cumm" xsi:type="PQ" value="9.6" /> < referenceRange> <observationRange> <text>5.0-10.0</text > </observationRange> </referenceRange> </observation > </component> <component> <observation moodCode="EVN" classCode="OBS"> <templateId root="05.02.840.1.197404.10.4.2" /> <id nullFlavor="NA" /> <code codeSystem="local" code="HGBT" displayName="HEMOGLOBIN" /> <statusCode code="completed" /> < effectiveTime value="" /> <value unit="gm/dL" xsi:type="PQ " value="10.6" /> <interpretationCode codeSystem="local" code="*" /> <referenceRange> <observationRange> <text>12.0- 16.0</text> </observationRange> </referenceRange> </ observation> </component> <component> <observation moodCode= "EVN" classCode="OBS"> <templateId root="05.02.840.1.770123.10.2022.4.2 " /> <id nullFlavor="NA" /> <code codeSystem="local" code= "HCTT" displayName="HEMATOCRIT" /> <statusCode code="completed" /> <effectiveTime value="" /> <value unit="%" xsi: type="PQ" value="33.4" /> <interpretationCode codeSystem="local" code= "*" /> <referenceRange> <observationRange> < text>37.0-47.0</text> </observationRange> </referenceRange> </observation> </component> <component> <observation moodCode="EVN" classCode="OBS"> <templateId root= "840.1.502187.01.03.22.4.2" /> <id nullFlavor="NA" /> < code codeSystem="local" code="PLT" displayName="PLATELET COUNT" /> < statusCode code="completed" /> <effectiveTime value="" /> <value unit="k/cumm" xsi:type="PQ" value="407" /> < interpretationCode codeSystem="local" code="*" /> <referenceRange> <observationRange> <text>150-400</text> </ observationRange> </referenceRange> </observation> </ component> </organizer> </entry> <entry> <organizer moodCode="EVN" classCode="BATTERY"> <templateId root="840.1.560222.01.03.22.4.1" /> <id nullFlavor="NA" /> <code codeSystem="local" code="OP" displayName= "OVA AND PARASITES" /> <statusCode code="completed" /> <component> <observation moodCode="EVN" classCode="OBS"> <templateId root= "05.02.840.1.138330.01.03.22.4.2" /> <id nullFlavor="NA" /> < code codeSystem="local" code="MB" displayName="Microbiology" /> < statusCode code="completed" /> <effectiveTime value="234149407408" /> <value xsi:type="ST" value="<pre><b>OVA AND PARASITES</b> See BelowOVA AND PARASITES(F) Kasandra Date/Time: 11/24/2015 14:00 Suzie Date/Time: 11/28/2015 14:10SOURCE: STOOLSPEC DESC: BARIUM AND MEDICATIONS SUCH ANTIBIOTICS AND NONABSORBABLEANTIDIARHEAL PREPARATIONS INTERFERE WITH THE DETECTION OFINTESTINAL PARASITES. SPECIMEN COLLECTION FOR PARASITESSHOULD BE DELAYED 7 - 14 DAYS AFTER THESE TREATMENTS.TNPTEST NOT PERFORMEDNORTHWOOD [facility]ACON[facility] [place] [address]</pre>" /> <referenceRange> <observationRange> <text /> </observationRange> </referenceRange> </observation> </ component> </organizer> </entry> <entry> <organizer moodCode="EVN" classCode="BATTERY"> <templateId root="2.16.840.1.153657.10..22.4.1" /> <id nullFlavor="NA" /> <code codeSystem="local" code="CBCWD" displayName="CBC With Platelet and Differential" /> <statusCode code= "completed" /> <component> <observation moodCode="EVN" classCode= "OBS"> <templateId root="2.16.840.1.746164.10..22.4.2" /> < id nullFlavor="NA" /> <code codeSystem="local" code="ABASR" displayName ="Absolute Basophils" /> <statusCode code="completed" /> < effectiveTime value="608570942317" /> <value unit="10*3" xsi:type="PQ" value="0.01" /> <referenceRange> <observationRange> <text>0.00-0.20</text> </observationRange> </ referenceRange> </observation> </component> <component> <observation moodCode="EVN" classCode="OBS"> <templateId root= "2.16.840.1.395959.10..4.2" /> <id nullFlavor="NA" /> < code codeSystem="local" code="AEOSR" displayName="Absolute Eosinophils" /> <statusCode code="completed" /> <effectiveTime value=" " /> <value unit="10*3" xsi:type="PQ" value="0.03" /> < referenceRange> <observationRange> <text>0.00-0.50</text > </observationRange> </referenceRange> </observation > </component> <component> <observation moodCode="EVN" classCode="OBS"> <templateId root="2.16.840.1.554181.01.03.224.2" /> <id nullFlavor="NA" /> <code codeSystem="local" code="ALYMR" displayName="Absolute Lymphocytes" /> <statusCode code="completed" /> <effectiveTime value="" /> <value unit="10*3" xsi: type="PQ" value="0.51" /> <interpretationCode codeSystem="local" code= "*" /> <referenceRange> <observationRange> < text>0.80-3.30</text> </observationRange> </referenceRange> </observation> </component> <component> <observation moodCode="EVN" classCode="OBS"> <templateId root= "216.840.1.534660.104.2" /> <id nullFlavor="NA" /> < code codeSystem="local" code="AMONR" displayName="Absolute Monocytes" /> <statusCode code="completed" /> <effectiveTime value="" /> <value unit="10*3" xsi:type="PQ" value="0.99" /> < referenceRange> <observationRange> <text>0.30-1.00</text > </observationRange> </referenceRange> </observation > </component> <component> <observation moodCode="EVN" classCode="OBS"> <templateId root="216.840.1.855438.1022.4.2" /> <id nullFlavor="NA" /> <code codeSystem="local" code="ASEGR" displayName="Absolute Neutrophils" /> <statusCode code="completed" /> <effectiveTime value="" /> <value unit="10*3" xsi: type="PQ" value="7.31" /> <interpretationCode codeSystem="local" code= "*" /> <referenceRange> <observationRange> < text>1.90-7.00</text> </observationRange> </referenceRange> </observation> </component> <component> <observation moodCode="EVN" classCode="OBS"> <templateId root= "16.840.1.559216.01.03.224.2" /> <id nullFlavor="NA" /> < code codeSystem="local" code="BASOR" displayName="Basophils" /> < statusCode code="completed" /> <effectiveTime value="" /> <value unit="%" xsi:type="PQ" value="0" /> <referenceRange > <observationRange> <text>0-2</text> </ observationRange> </referenceRange> </observation> </ component> <component> <observation moodCode="EVN" classCode="OBS"> <templateId root="16.840.1.393083.10.4.2" /> <id nullFlavor="NA" /> <code codeSystem="local" code="EOSR" displayName= "Eosinophils" /> <statusCode code="completed" /> < effectiveTime value="" /> <value unit="%" xsi:type="PQ " value="0" /> <referenceRange> <observationRange> <text>0-4</text> </observationRange> </referenceRange> </observation> </component> <component> <observation moodCode="EVN" classCode="OBS"> <templateId root= "216.840.1.188001.10.20.22.4.2" /> <id nullFlavor="NA" /> < code codeSystem="local" code="HCT" displayName="HCT" /> <statusCode code="completed" /> <effectiveTime value="258554502846" /> < value unit="%" xsi:type="PQ" value="36.6" /> <interpretationCode codeSystem="local" code="*" /> <referenceRange> < observationRange> <text>37.0-47.0</text> </ observationRange> </referenceRange> </observation> </ component> <component> <observation moodCode="EVN" classCode="OBS"> <templateId root="05.02.840.1.039564.1022.4.2" /> <id nullFlavor="NA" /> <code codeSystem="local" code="HGB" displayName="HGB " /> <statusCode code="completed" /> <effectiveTime value= "445912449168" /> <value unit="g/dL" xsi:type="PQ" value="12.2" /> <referenceRange> <observationRange> <text>12.0- 16.0</text> </observationRange> </referenceRange> </ observation> </component> <component> <observation moodCode= "EVN" classCode="OBS"> <templateId root="216.840.1.851019.10.20.22.4.2 " /> <id nullFlavor="NA" /> <code codeSystem="local" code= "IMGA" displayName="Immature Granulocytes" /> <statusCode code= "completed" /> <effectiveTime value="" /> <value unit="%" xsi:type="PQ" value="0.2" /> <referenceRange> < observationRange> <text>0.0-1.0</text> </ observationRange> </referenceRange> </observation> </ component> <component> <observation moodCode="EVN" classCode="OBS"> <templateId root="216.840.1.814640.10...4.2" /> <id nullFlavor="NA" /> <code codeSystem="local" code="LYMPR" displayName= "Lymphocytes" /> <statusCode code="completed" /> < effectiveTime value="" /> <value unit="%" xsi:type="PQ " value="6" /> <interpretationCode codeSystem="local" code="*" /> <referenceRange> <observationRange> <text>20-46</ text> </observationRange> </referenceRange> </ observation> </component> <component> <observation moodCode= "EVN" classCode="OBS"> <templateId root="216.840.1.794942.10..22.4.2 " /> <id nullFlavor="NA" /> <code codeSystem="local" code="MCH " displayName="MCH" /> <statusCode code="completed" /> < effectiveTime value="" /> <value unit="pg" xsi:type="PQ" value="29.1" /> <referenceRange> <observationRange> <text>27.0-32.0</text> </observationRange> </ referenceRange> </observation> </component> <component> <observation moodCode="EVN" classCode="OBS"> <templateId root= "05.02.840.1.766793.10.20.22.4.2" /> <id nullFlavor="NA" /> < code codeSystem="local" code="MCHC" displayName="MCHC" /> <statusCode code="completed" /> <effectiveTime value="" /> < value unit="g/dL" xsi:type="PQ" value="33.3" /> <referenceRange> <observationRange> <text>32.0-36.0</text> </ observationRange> </referenceRange> </observation> </ component> <component> <observation moodCode="EVN" classCode="OBS"> <templateId root="05.02.840.1.223051.10..22.4.2" /> <id nullFlavor="NA" /> <code codeSystem="local" code="MCV" displayName="MCV " /> <statusCode code="completed" /> <effectiveTime value= "" /> <value unit="fL" xsi:type="PQ" value="87.4" /> <referenceRange> <observationRange> <text>82.0-99.0< /text> </observationRange> </referenceRange> </ observation> </component> <component> <observation moodCode= "EVN" classCode="OBS"> <templateId root="05.02.840.1.562410.10.20.22.4.2 " /> <id nullFlavor="NA" /> <code codeSystem="local" code= "MONOR" displayName="Monocytes" /> <statusCode code="completed" /> <effectiveTime value="" /> <value unit="%" xsi: type="PQ" value="11" /> <referenceRange> <observationRange> <text>4-11</text> </observationRange> </ referenceRange> </observation> </component> <component> <observation moodCode="EVN" classCode="OBS"> <templateId root= "216.840.1.961299.10.4.2" /> <id nullFlavor="NA" /> < code codeSystem="local" code="MPV" displayName="MPV" /> <statusCode code="completed" /> <effectiveTime value="" /> < value unit="fL" xsi:type="PQ" value="10.0" /> <referenceRange> <observationRange> <text>9.4-12.4</text> </ observationRange> </referenceRange> </observation> </ component> <component> <observation moodCode="EVN" classCode="OBS"> <templateId root="05.02.840.1.590097.01.03.224.2" /> <id nullFlavor="NA" /> <code codeSystem="local" code="SEGR" displayName= "Neutrophils" /> <statusCode code="completed" /> < effectiveTime value="" /> <value unit="%" xsi:type="PQ " value="83" /> <interpretationCode codeSystem="local" code="*" /> <referenceRange> <observationRange> <text>51-75</ text> </observationRange> </referenceRange> </ observation> </component> <component> <observation moodCode= "EVN" classCode="OBS"> <templateId root="16.840.1.971999.104.2 " /> <id nullFlavor="NA" /> <code codeSystem="local" code= "NRBCA" displayName="Nucleated RBC Automated" /> <statusCode code= "completed" /> <effectiveTime value="" /> <value unit="/100WBC" xsi:type="PQ" value="0.0" /> <referenceRange> <observationRange> <text /> </observationRange> </referenceRange> </observation> </component> <component> <observation moodCode="EVN" classCode="OBS"> <templateId root= "16.840.1.761530.10..22.4.2" /> <id nullFlavor="NA" /> < code codeSystem="local" code="PLT" displayName="Platelet Count" /> < statusCode code="completed" /> <effectiveTime value="" /> <value unit="K/uL" xsi:type="PQ" value="324" /> < referenceRange> <observationRange> <text>150-400</text> </observationRange> </referenceRange> </observation > </component> <component> <observation moodCode="EVN" classCode="OBS"> <templateId root="840.1.197660.10.22.4.2" /> <id nullFlavor="NA" /> <code codeSystem="local" code="RBC" displayName="RBC" /> <statusCode code="completed" /> < effectiveTime value="" /> <value unit="10*6/uL" xsi:type= "PQ" value="4.19" /> <referenceRange> <observationRange> <text>4.00-5.20</text> </observationRange> </ referenceRange> </observation> </component> <component> <observation moodCode="EVN" classCode="OBS"> <templateId root= "05.02.840.1.599179.10.20.22.4.2" /> <id nullFlavor="NA" /> < code codeSystem="local" code="RDW" displayName="RDW" /> <statusCode code="completed" /> <effectiveTime value="607530710503" /> < value unit="%" xsi:type="PQ" value="15.3" /> <interpretationCode codeSystem="local" code="*" /> <referenceRange> < observationRange> <text>11.5-14.5</text> </ observationRange> </referenceRange> </observation> </ component> <component> <observation moodCode="EVN" classCode="OBS"> <templateId root="840.1.839946.01.03.22.4.2" /> <id nullFlavor="NA" /> <code codeSystem="local" code="WBCIR" displayName= "WBC" /> <statusCode code="completed" /> <effectiveTime value= "" /> <value unit="K/uL" xsi:type="PQ" value="8.9" /> <referenceRange> <observationRange> <text>4.8-10.8< /text> </observationRange> </referenceRange> </ observation> </component> </organizer> </entry> <entry> <organizer moodCode="EVN" classCode="BATTERY"> <templateId root= "840.1.809514.01.03.22.4.1" /> <id nullFlavor="NA" /> <code codeSystem="local" code="CMP" displayName="Comprehensive Metabolic Panel (CMP)" /> <statusCode code="completed" /> <component> <observation moodCode="EVN" classCode="OBS"> <templateId root= "840.1.154107.01.03.22.4.2" /> <id nullFlavor="NA" /> < code codeSystem="local" code="ALB" displayName="Albumin" /> < statusCode code="completed" /> <effectiveTime value="503130913231" /> <value unit="g/dL" xsi:type="PQ" value="3.2" /> < interpretationCode codeSystem="local" code="*" /> <referenceRange> <observationRange> <text>3.5-4.8</text> </ observationRange> </referenceRange> </observation> </ component> <component> <observation moodCode="EVN" classCode="OBS"> <templateId root="216.840.1.294060.10..22.4.2" /> <id nullFlavor="NA" /> <code codeSystem="local" code="ALP" displayName= "Alkaline Phosphatase" /> <statusCode code="completed" /> < effectiveTime value="980543333021" /> <value unit="U/L" xsi:type="PQ" value="70" /> <referenceRange> <observationRange> <text>26-104</text> </observationRange> </referenceRange > </observation> </component> <component> <observation moodCode="EVN" classCode="OBS"> <templateId root= "216.840.1.839226.10..22.4.2" /> <id nullFlavor="NA" /> < code codeSystem="local" code="ALT" displayName="ALT (SGPT)" /> < statusCode code="completed" /> <effectiveTime value="320309059992" /> <value unit="U/L" xsi:type="PQ" value="18" /> <referenceRange > <observationRange> <text>14-54</text> </ observationRange> </referenceRange> </observation> </ component> <component> <observation moodCode="EVN" classCode="OBS"> <templateId root="216.840.1.141982.01.03.22.4.2" /> <id nullFlavor="NA" /> <code codeSystem="local" code="AGAP" displayName= "Anion Gap" /> <statusCode code="completed" /> <effectiveTime value="" /> <value unit="NA" xsi:type="PQ" value="11" /> <referenceRange> <observationRange> <text>3-20</ text> </observationRange> </referenceRange> </ observation> </component> <component> <observation moodCode= "EVN" classCode="OBS"> <templateId root="216.840.1.674079.01.03.22.4.2 " /> <id nullFlavor="NA" /> <code codeSystem="local" code="AST " displayName="AST (SGOT)" /> <statusCode code="completed" /> <effectiveTime value="" /> <value unit="U/L" xsi:type="PQ" value="22" /> <referenceRange> <observationRange> <text>15-41</text> </observationRange> </referenceRange > </observation> </component> <component> <observation moodCode="EVN" classCode="OBS"> <templateId root= "216.840.1.245047.01.03.22.4.2" /> <id nullFlavor="NA" /> < code codeSystem="local" code="BILIT" displayName="Bilirubin Total" /> < statusCode code="completed" /> <effectiveTime value="" /> <value unit="mg/dL" xsi:type="PQ" value="1.8" /> < interpretationCode codeSystem="local" code="*" /> <referenceRange> <observationRange> <text>0.2-1.2</text> </ observationRange> </referenceRange> </observation> </ component> <component> <observation moodCode="EVN" classCode="OBS"> <templateId root="05.02.840.1.820720.01.03.22.4.2" /> <id nullFlavor="NA" /> <code codeSystem="local" code="BUN" displayName="BUN " /> <statusCode code="completed" /> <effectiveTime value= "" /> <value unit="mg/dL" xsi:type="PQ" value="6" /> <referenceRange> <observationRange> <text>4-20</text > </observationRange> </referenceRange> </observation > </component> <component> <observation moodCode="EVN" classCode="OBS"> <templateId root="05.02.840.1.082859.01.03.22.4.2" /> <id nullFlavor="NA" /> <code codeSystem="local" code="CA" displayName="Calcium" /> <statusCode code="completed" /> < effectiveTime value="" /> <value unit="mg/dL" xsi:type="PQ " value="8.7" /> <referenceRange> <observationRange> <text>8.6-10.0</text> </observationRange> </ referenceRange> </observation> </component> <component> <observation moodCode="EVN" classCode="OBS"> <templateId root= "05.02.840.1.034061.10.22.4.2" /> <id nullFlavor="NA" /> < code codeSystem="local" code="CL" displayName="Chloride" /> < statusCode code="completed" /> <effectiveTime value="" /> <value unit="mEq/L" xsi:type="PQ" value="102" /> < referenceRange> <observationRange> <text>99-109</text> </observationRange> </referenceRange> </observation> </component> <component> <observation moodCode="EVN" classCode ="OBS"> <templateId root="216.840.1.297927.10..4.2" /> < id nullFlavor="NA" /> <code codeSystem="local" code="CO2" displayName= "CO2" /> <statusCode code="completed" /> <effectiveTime value= "" /> <value unit="mEq/L" xsi:type="PQ" value="23" /> <referenceRange> <observationRange> <text>22-32</ text> </observationRange> </referenceRange> </ observation> </component> <component> <observation moodCode= "EVN" classCode="OBS"> <templateId root="05.02.840.1.011985.10.4.2 " /> <id nullFlavor="NA" /> <code codeSystem="local" code= "CREAT" displayName="Creatinine" /> <statusCode code="completed" /> <effectiveTime value="" /> <value unit="mg/dL" xsi: type="PQ" value="0.62" /> <referenceRange> <observationRange > <text>0.44-1.03</text> </observationRange> </ referenceRange> </observation> </component> <component> <observation moodCode="EVN" classCode="OBS"> <templateId root= "05.02.840.1.637583.10.4.2" /> <id nullFlavor="NA" /> < code codeSystem="local" code="GLOB" displayName="Globulin" /> < statusCode code="completed" /> <effectiveTime value="" /> <value unit="g/dL" xsi:type="PQ" value="3.1" /> < referenceRange> <observationRange> <text>1.9-4.3</text> </observationRange> </referenceRange> </observation > </component> <component> <observation moodCode="EVN" classCode="OBS"> <templateId root="16.840.1.172062.01.03.22.4.2" /> <id nullFlavor="NA" /> <code codeSystem="local" code="GLU" displayName="Glucose" /> <statusCode code="completed" /> < effectiveTime value="" /> <value unit="mg/dL" xsi:type="PQ " value="104" /> <interpretationCode codeSystem="local" code="*" /> <referenceRange> <observationRange> <text>70-100< /text> </observationRange> </referenceRange> </ observation> </component> <component> <observation moodCode= "EVN" classCode="OBS"> <templateId root="16.840.1.303796.01.03.22.4.2 " /> <id nullFlavor="NA" /> <code codeSystem="local" code="K" displayName="Potassium" /> <statusCode code="completed" /> < effectiveTime value="" /> <value unit="mEq/L" xsi:type="PQ " value="2.6" /> <interpretationCode codeSystem="local" code="*" /> <referenceRange> <observationRange> <text>3.6-5.1 </text> </observationRange> </referenceRange> </ observation> </component> <component> <observation moodCode= "EVN" classCode="OBS"> <templateId root="840.1.773349.01.03.22.4.2 " /> <id nullFlavor="NA" /> <code codeSystem="local" code="TP " displayName="Protein" /> <statusCode code="completed" /> < effectiveTime value="[id number]" /> <value unit="g/dL" xsi:type="PQ" value="6.3" /> <referenceRange> <observationRange> <text>6.1-7.9</text> </observationRange> </ referenceRange> </observation> </component> <component> <observation moodCode="EVN" classCode="OBS"> <templateId root= "840.1.051356.01.03.22.4.2" /> <id nullFlavor="NA" /> < code codeSystem="local" code="NA" displayName="Sodium" /> <statusCode code="completed" /> <effectiveTime value="[id number]" /> < value unit="mEq/L" xsi:type="PQ" value="136" /> <referenceRange> <observationRange> <text>136-144</text> </ observationRange> </referenceRange> </observation> </ component> </organizer> </entry> <entry> <organizer moodCode="EVN" classCode="BATTERY"> <templateId root="840.1.798192.01.03.22.4.1" /> <id nullFlavor="NA" /> <code codeSystem="local" code="GFR" displayName ="eGFR" /> <statusCode code="completed" /> <component> < observation moodCode="EVN" classCode="OBS"> <templateId root= "840.1.089187.22.4.2" /> <id nullFlavor="NA" /> < code codeSystem="local" code="GFR" displayName="eGFR" /> <statusCode code="completed" /> <effectiveTime value="546473825135" /> < value unit="NA" xsi:type="PQ" value=">60" /> <referenceRange> <observationRange> <text>>60</text> </ observationRange> </referenceRange> </observation> </ component> </organizer> </entry> <entry> <organizer moodCode="EVN" classCode="BATTERY"> <templateId root="216.840.1.016270.10..22.4.1" /> <id nullFlavor="NA" /> <code codeSystem="local" code="TROP" displayName="Troponin" /> <statusCode code="completed" /> <component> <observation moodCode="EVN" classCode="OBS"> <templateId root= "216.840.1.373262.10..4.2" /> <id nullFlavor="NA" /> < code codeSystem="local" code="TROP" displayName="Troponin" /> < statusCode code="completed" /> <effectiveTime value="407954841179" /> <value unit="ng/mL" xsi:type="PQ" value="<0.05" /> < referenceRange> <observationRange> <text><0.06</text > </observationRange> </referenceRange> </observation > </component> </organizer> </entry> <entry> <organizer moodCode= "EVN" classCode="BATTERY"> <templateId root="216.840.1.076385.10...4.1 " /> <id nullFlavor="NA" /> <code codeSystem="local" code="ALC" displayName="Alcohol, Blood" /> <statusCode code="completed" /> < component> <observation moodCode="EVN" classCode="OBS"> < templateId root="05.02.840.1.222600.10..22.4.2" /> <id nullFlavor="NA " /> <code codeSystem="local" code="ALC" displayName="Alcohol, Blood" / > <statusCode code="completed" /> <effectiveTime value= "[id number]" /> <value unit="mg/dL" xsi:type="PQ" value="Not Detected " /> <referenceRange> <observationRange> <text /> </observationRange> </referenceRange> </ observation> </component> </organizer> </entry> <entry> <organizer moodCode="EVN" classCode="BATTERY"> <templateId root= "05.02.840.1.754316.10..22.4.1" /> <id nullFlavor="NA" /> <code codeSystem="local" code="VCHMN" displayName="Chem 8 NPT" /> <statusCode code="completed" /> <component> <observation moodCode="EVN" classCode="OBS"> <templateId root="05.02.840.1.015334.10..22.4.2" /> <id nullFlavor="NA" /> <code codeSystem="local" code="VAGAP" displayName="Anion Gap" /> <statusCode code="completed" /> < effectiveTime value="[id number]" /> <value unit="NA" xsi:type="PQ" value="15" /> <referenceRange> <observationRange> <text>3-20</text> </observationRange> </referenceRange> </observation> </component> <component> <observation moodCode="EVN" classCode="OBS"> <templateId root= "05.02.840.1.047217.10.4.2" /> <id nullFlavor="NA" /> < code codeSystem="local" code="VBUNN" displayName="BUN Venous" /> < statusCode code="completed" /> <effectiveTime value="" /> <value unit="mg/dl" xsi:type="PQ" value="5" /> <referenceRange > <observationRange> <text>4-20</text> </ observationRange> </referenceRange> </observation> </ component> <component> <observation moodCode="EVN" classCode="OBS"> <templateId root="2.16.840.1.215354.10.4.2" /> <id nullFlavor="NA" /> <code codeSystem="local" code="VCANN" displayName= "Calcium Ionized Venous" /> <statusCode code="completed" /> < effectiveTime value="" /> <value unit="mmol/L" xsi:type="PQ " value="1.10" /> <interpretationCode codeSystem="local" code="*" /> <referenceRange> <observationRange> <text>1.19- 1.41</text> </observationRange> </referenceRange> </ observation> </component> <component> <observation moodCode= "EVN" classCode="OBS"> <templateId root="216.840.1.771868.01.03.22.4.2 " /> <id nullFlavor="NA" /> <code codeSystem="local" code= "VCREN" displayName="Creatinine Venous" /> <statusCode code="completed " /> <effectiveTime value="" /> <value unit="mg/dL " xsi:type="PQ" value="0.6" /> <referenceRange> < observationRange> <text>0.4-1.0</text> </ observationRange> </referenceRange> </observation> </ component> <component> <observation moodCode="EVN" classCode="OBS"> <templateId root="16.840.1.709251...4.2" /> <id nullFlavor="NA" /> <code codeSystem="local" code="VGLNN" displayName= "Glucose Venous" /> <statusCode code="completed" /> < effectiveTime value="" /> <value unit="mg/dL" xsi:type="PQ " value="99" /> <referenceRange> <observationRange> <text>70-100</text> </observationRange> </ referenceRange> </observation> </component> <component> <observation moodCode="EVN" classCode="OBS"> <templateId root= "16.840.1.461921.01.03.22.4.2" /> <id nullFlavor="NA" /> < code codeSystem="local" code="VKNN" displayName="Potassium, WB" /> < statusCode code="completed" /> <effectiveTime value="" /> <value unit="mEq/L" xsi:type="PQ" value="2.6" /> < interpretationCode codeSystem="local" code="*" /> <referenceRange> <observationRange> <text>3.6-5.1</text> </ observationRange> </referenceRange> </observation> </ component> <component> <observation moodCode="EVN" classCode="OBS"> <templateId root="05.02.840.1.864378.10.4.2" /> <id nullFlavor="NA" /> <code codeSystem="local" code="VNANN" displayName= "Sodium Venous" /> <statusCode code="completed" /> < effectiveTime value="" /> <value unit="mEq/L" xsi:type="PQ " value="137" /> <referenceRange> <observationRange> <text>136-144</text> </observationRange> </ referenceRange> </observation> </component> <component> <observation moodCode="EVN" classCode="OBS"> <templateId root= "05.02.840.1.495156.10..22.4.2" /> <id nullFlavor="NA" /> < code codeSystem="local" code="VTCNN" displayName="Total CO2 Venous" /> <statusCode code="completed" /> <effectiveTime value="454932905187" /> <value unit="mEq/L" xsi:type="PQ" value="22" /> < interpretationCode codeSystem="local" code="*" /> <referenceRange> <observationRange> <text>25-29</text> </ observationRange> </referenceRange> </observation> </ component> <component> <observation moodCode="EVN" classCode="OBS"> <templateId root="05.02.840.1.524600.01.03.22.4.2" /> <id nullFlavor="NA" /> <code codeSystem="local" code="VCLN" displayName= "Venous CL" /> <statusCode code="completed" /> <effectiveTime value="" /> <value unit="mEq/L" xsi:type="PQ" value="100" / > <referenceRange> <observationRange> <text>99- 109</text> </observationRange> </referenceRange> </ observation> </component> <component> <observation moodCode= "EVN" classCode="OBS"> <templateId root="05.02.840.1.392447.10..22.4.2 " /> <id nullFlavor="NA" /> <code codeSystem="local" code= "VHCNN" displayName="HCT Venous" /> <statusCode code="completed" /> <effectiveTime value="214657513840" /> <value unit="%" xsi: type="PQ" value="38.0" /> <referenceRange> <observationRange > <text>37.0-47.0</text> </observationRange> </ referenceRange> </observation> </component> <component> <observation moodCode="EVN" classCode="OBS"> <templateId root= "05.02.840.1.114601.10..22.4.2" /> <id nullFlavor="NA" /> < code codeSystem="local" code="VHGNN" displayName="HGB Venous NPT" /> < statusCode code="completed" /> <effectiveTime value="891179463960" /> <value unit="g/dL" xsi:type="PQ" value="12.9" /> < referenceRange> <observationRange> <text>12.0-16.0</text > </observationRange> </referenceRange> </observation > </component> </organizer> </entry> <entry> <organizer moodCode= "EVN" classCode="BATTERY"> <templateId root="05.02.840.1.254889.10..22.4.1 " /> <id nullFlavor="NA" /> <code codeSystem="local" code="CBCND" displayName="CBC With Platelet No Differential" /> <statusCode code= "completed" /> <component> <observation moodCode="EVN" classCode= "OBS"> <templateId root="05.02.840.1.087524.10.20.22.4.2" /> < id nullFlavor="NA" /> <code codeSystem="local" code="HCT" displayName= "HCT" /> <statusCode code="completed" /> <effectiveTime value= "" /> <value unit="%" xsi:type="PQ" value="33.9" /> <interpretationCode codeSystem="local" code="*" /> < referenceRange> <observationRange> <text>37.0-47.0</text > </observationRange> </referenceRange> </observation > </component> <component> <observation moodCode="EVN" classCode="OBS"> <templateId root="216.840.1.632837.10.20.22.4.2" /> <id nullFlavor="NA" /> <code codeSystem="local" code="HGB" displayName="HGB" /> <statusCode code="completed" /> < effectiveTime value="" /> <value unit="g/dL" xsi:type="PQ" value="10.9" /> <interpretationCode codeSystem="local" code="*" /> <referenceRange> <observationRange> <text>12.0- 16.0</text> </observationRange> </referenceRange> </ observation> </component> <component> <observation moodCode= "EVN" classCode="OBS"> <templateId root="216.840.1.633027.10.20.22.4.2 " /> <id nullFlavor="NA" /> <code codeSystem="local" code="MCH " displayName="MCH" /> <statusCode code="completed" /> < effectiveTime value="" /> <value unit="pg" xsi:type="PQ" value="28.5" /> <referenceRange> <observationRange> <text>27.0-32.0</text> </observationRange> </ referenceRange> </observation> </component> <component> <observation moodCode="EVN" classCode="OBS"> <templateId root= "2.16.840.1.555183.10.2022.4.2" /> <id nullFlavor="NA" /> < code codeSystem="local" code="MCHC" displayName="MCHC" /> <statusCode code="completed" /> <effectiveTime value="" /> < value unit="g/dL" xsi:type="PQ" value="32.2" /> <referenceRange> <observationRange> <text>32.0-36.0</text> </ observationRange> </referenceRange> </observation> </ component> <component> <observation moodCode="EVN" classCode="OBS"> <templateId root="05.02.840.1.871941.1022.4.2" /> <id nullFlavor="NA" /> <code codeSystem="local" code="MCV" displayName="MCV " /> <statusCode code="completed" /> <effectiveTime value= "" /> <value unit="fL" xsi:type="PQ" value="88.7" /> <referenceRange> <observationRange> <text>82.0-99.0< /text> </observationRange> </referenceRange> </ observation> </component> <component> <observation moodCode= "EVN" classCode="OBS"> <templateId root="05.02.840.1.008221.102022.4.2 " /> <id nullFlavor="NA" /> <code codeSystem="local" code="MPV " displayName="MPV" /> <statusCode code="completed" /> < effectiveTime value="" /> <value unit="fL" xsi:type="PQ" value="10.2" /> <referenceRange> <observationRange> <text>9.4-12.4</text> </observationRange> </ referenceRange> </observation> </component> <component> <observation moodCode="EVN" classCode="OBS"> <templateId root= "05.02.840.1.759253.1022.4.2" /> <id nullFlavor="NA" /> < code codeSystem="local" code="PLT" displayName="Platelet Count" /> < statusCode code="completed" /> <effectiveTime value="" /> <value unit="K/uL" xsi:type="PQ" value="285" /> < referenceRange> <observationRange> <text>150-400</text> </observationRange> </referenceRange> </observation > </component> <component> <observation moodCode="EVN" classCode="OBS"> <templateId root="05.02.840.1.321046.01.03.22.4.2" /> <id nullFlavor="NA" /> <code codeSystem="local" code="RBC" displayName="RBC" /> <statusCode code="completed" /> < effectiveTime value="" /> <value unit="10*6/uL" xsi:type= "PQ" value="3.82" /> <interpretationCode codeSystem="local" code="*" / > <referenceRange> <observationRange> <text> 4.00-5.20</text> </observationRange> </referenceRange> </observation> </component> <component> <observation moodCode="EVN" classCode="OBS"> <templateId root= "05.02.840.1.593754.22.4.2" /> <id nullFlavor="NA" /> < code codeSystem="local" code="RDW" displayName="RDW" /> <statusCode code="completed" /> <effectiveTime value="" /> < value unit="%" xsi:type="PQ" value="15.8" /> <interpretationCode codeSystem="local" code="*" /> <referenceRange> < observationRange> <text>11.5-14.5</text> </ observationRange> </referenceRange> </observation> </ component> <component> <observation moodCode="EVN" classCode="OBS"> <templateId root="05.02.840.1.395394.10.22.4.2" /> <id nullFlavor="NA" /> <code codeSystem="local" code="WBCIR" displayName= "WBC" /> <statusCode code="completed" /> <effectiveTime value= "" /> <value unit="K/uL" xsi:type="PQ" value="8.3" /> <referenceRange> <observationRange> <text>4.8-10.8< /text> </observationRange> </referenceRange> </ observation> </component> </organizer> </entry> <entry> <organizer moodCode="EVN" classCode="BATTERY"> <templateId root= "840.1.083004.22.4.1" /> <id nullFlavor="NA" /> <code codeSystem="local" code="BMP" displayName="Basic Metabolic Panel (BMP)" /> <statusCode code="completed" /> <component> <observation moodCode= "EVN" classCode="OBS"> <templateId root="05.02.840.1.212208.1022.4.2 " /> <id nullFlavor="NA" /> <code codeSystem="local" code= "AGAP" displayName="Anion Gap" /> <statusCode code="completed" /> <effectiveTime value="" /> <value unit="NA" xsi:type= "PQ" value="7" /> <referenceRange> <observationRange> <text>3-20</text> </observationRange> </ referenceRange> </observation> </component> <component> <observation moodCode="EVN" classCode="OBS"> <templateId root= "05.02.840.1.931631.10.20.22.4.2" /> <id nullFlavor="NA" /> < code codeSystem="local" code="BUN" displayName="BUN" /> <statusCode code="completed" /> <effectiveTime value="899539078620" /> < value unit="mg/dL" xsi:type="PQ" value="4" /> <referenceRange> <observationRange> <text>4-20</text> </ observationRange> </referenceRange> </observation> </ component> <component> <observation moodCode="EVN" classCode="OBS"> <templateId root="05.02.840.1.780899.10.22.4.2" /> <id nullFlavor="NA" /> <code codeSystem="local" code="CA" displayName= "Calcium" /> <statusCode code="completed" /> <effectiveTime value="472824552606" /> <value unit="mg/dL" xsi:type="PQ" value="8.0" / > <interpretationCode codeSystem="local" code="*" /> < referenceRange> <observationRange> <text>8.6-10.0</text > </observationRange> </referenceRange> </observation > </component> <component> <observation moodCode="EVN" classCode="OBS"> <templateId root="05.02.840.1.125195.10.20.22.4.2" /> <id nullFlavor="NA" /> <code codeSystem="local" code="CL" displayName="Chloride" /> <statusCode code="completed" /> < effectiveTime value="" /> <value unit="mEq/L" xsi:type="PQ " value="104" /> <referenceRange> <observationRange> <text>99-109</text> </observationRange> </ referenceRange> </observation> </component> <component> <observation moodCode="EVN" classCode="OBS"> <templateId root= "216.840.1.177783.01.03.22.4.2" /> <id nullFlavor="NA" /> < code codeSystem="local" code="CO2" displayName="CO2" /> <statusCode code="completed" /> <effectiveTime value="" /> < value unit="mEq/L" xsi:type="PQ" value="25" /> <referenceRange> <observationRange> <text>22-32</text> </ observationRange> </referenceRange> </observation> </ component> <component> <observation moodCode="EVN" classCode="OBS"> <templateId root="05.02.840.1.655650.01.03.22.4.2" /> <id nullFlavor="NA" /> <code codeSystem="local" code="CREAT" displayName= "Creatinine" /> <statusCode code="completed" /> < effectiveTime value="" /> <value unit="mg/dL" xsi:type="PQ " value="0.48" /> <referenceRange> <observationRange> <text>0.44-1.03</text> </observationRange> </ referenceRange> </observation> </component> <component> <observation moodCode="EVN" classCode="OBS"> <templateId root= "216.840.1.924921.22.4.2" /> <id nullFlavor="NA" /> < code codeSystem="local" code="GLU" displayName="Glucose" /> < statusCode code="completed" /> <effectiveTime value="" /> <value unit="mg/dL" xsi:type="PQ" value="87" /> < referenceRange> <observationRange> <text>70-100</text> </observationRange> </referenceRange> </observation> </component> <component> <observation moodCode="EVN" classCode ="OBS"> <templateId root="2.16.840.1.230868.10.20.22.4.2" /> < id nullFlavor="NA" /> <code codeSystem="local" code="K" displayName= "Potassium" /> <statusCode code="completed" /> <effectiveTime value="" /> <value unit="mEq/L" xsi:type="PQ" value="2.7" / > <interpretationCode codeSystem="local" code="*" /> < referenceRange> <observationRange> <text>3.6-5.1</text> </observationRange> </referenceRange> </observation > </component> <component> <observation moodCode="EVN" classCode="OBS"> <templateId root="2.16.840.1.351445.10.20.22.4.2" /> <id nullFlavor="NA" /> <code codeSystem="local" code="NA" displayName="Sodium" /> <statusCode code="completed" /> < effectiveTime value="" /> <value unit="mEq/L" xsi:type="PQ " value="136" /> <referenceRange> <observationRange> <text>136-144</text> </observationRange> </ referenceRange> </observation> </component> </organizer> </entry > <entry> <organizer moodCode="EVN" classCode="BATTERY"> <templateId root="216.840.1.424785.10...4.1" /> <id nullFlavor="NA" /> <code codeSystem="local" code="LIPID" displayName="Lipid Panel" /> <statusCode code="completed" /> <component> <observation moodCode="EVN" classCode="OBS"> <templateId root="05.02.840.1.735754.01.03.22.4.2" /> <id nullFlavor="NA" /> <code codeSystem="local" code="CHR" displayName="Cardiac Risk" /> <statusCode code="completed" /> <effectiveTime value="" /> <value unit="" xsi:type="PQ" value="2.9" /> <referenceRange> <observationRange> <text>0.0-5.0</text> </observationRange> </ referenceRange> </observation> </component> <component> <observation moodCode="EVN" classCode="OBS"> <templateId root= "05.02.840.1.917167.01.03.22.4.2" /> <id nullFlavor="NA" /> < code codeSystem="local" code="CHOL" displayName="Cholesterol" /> < statusCode code="completed" /> <effectiveTime value="129693839469" /> <value unit="mg/dL" xsi:type="PQ" value="86" /> < referenceRange> <observationRange> <text>0-200</text> </observationRange> </referenceRange> </observation> </component> <component> <observation moodCode="EVN" classCode= "OBS"> <templateId root="05.02.840.1.851554.01.03.22.4.2" /> < id nullFlavor="NA" /> <code codeSystem="local" code="HDL" displayName= "HDL Cholesterol" /> <statusCode code="completed" /> < effectiveTime value="" /> <value unit="mg/dL" xsi:type="PQ " value="30" /> <interpretationCode codeSystem="local" code="*" /> <referenceRange> <observationRange> <text>>40</ text> </observationRange> </referenceRange> </ observation> </component> <component> <observation moodCode= "EVN" classCode="OBS"> <templateId root="2.16.840.1.129154.10...4.2 " /> <id nullFlavor="NA" /> <code codeSystem="local" code="LDL " displayName="LDL Cholesterol" /> <statusCode code="completed" /> <effectiveTime value="" /> <value unit="mg/dL" xsi: type="PQ" value="45" /> <referenceRange> <observationRange> <text>0-100</text> </observationRange> </ referenceRange> </observation> </component> <component> <observation moodCode="EVN" classCode="OBS"> <templateId root= "2.16.840.1.216812.10..22.4.2" /> <id nullFlavor="NA" /> < code codeSystem="local" code="TRIG" displayName="Triglycerides" /> < statusCode code="completed" /> <effectiveTime value="" /> <value unit="mg/dL" xsi:type="PQ" value="54" /> < referenceRange> <observationRange> <text>0-150</text> </observationRange> </referenceRange> </observation> </component> <component> <observation moodCode="EVN" classCode= "OBS"> <templateId root="216.840.1.805531.10...4.2" /> < id nullFlavor="NA" /> <code codeSystem="local" code="VLDL" displayName= "VLDL Cholesterol" /> <statusCode code="completed" /> < effectiveTime value="" /> <value unit="mg/dL" xsi:type="PQ " value="11" /> <referenceRange> <observationRange> <text>0-30</text> </observationRange> </referenceRange > </observation> </component> </organizer> </entry> <entry> <organizer moodCode="EVN" classCode="BATTERY"> <templateId root= "216.840.1.596259.10...4.1" /> <id nullFlavor="NA" /> <code codeSystem="local" code="MG" displayName="Magnesium" /> <statusCode code= "completed" /> <component> <observation moodCode="EVN" classCode= "OBS"> <templateId root="216.840.1.671606.10..22.4.2" /> < id nullFlavor="NA" /> <code codeSystem="local" code="MG" displayName= "Magnesium" /> <statusCode code="completed" /> <effectiveTime value="" /> <value unit="mg/dL" xsi:type="PQ" value="1.6" / > <interpretationCode codeSystem="local" code="*" /> < referenceRange> <observationRange> <text>1.8-2.5</text> </observationRange> </referenceRange> </observation > </component> </organizer> </entry> <entry> <organizer moodCode= "EVN" classCode="BATTERY"> <templateId root="05.02.840.1.605703.10..22.4.1 " /> <id nullFlavor="NA" /> <code codeSystem="local" code="GFR" displayName="eGFR" /> <statusCode code="completed" /> <component> <observation moodCode="EVN" classCode="OBS"> <templateId root= "05.02.840.1.820942.01.03.22.4.2" /> <id nullFlavor="NA" /> < code codeSystem="local" code="GFR" displayName="eGFR" /> <statusCode code="completed" /> <effectiveTime value="" /> < value unit="NA" xsi:type="PQ" value=">60" /> <referenceRange> <observationRange> <text>>60</text> </ observationRange> </referenceRange> </observation> </ component> </organizer> </entry> <entry> <organizer moodCode="EVN" classCode="BATTERY"> <templateId root="05.02.840.1.938469.01.03.22.4.1" /> <id nullFlavor="NA" /> <code codeSystem="local" code="CBCND" displayName="CBC With Platelet No Differential" /> <statusCode code= "completed" /> <component> <observation moodCode="EVN" classCode= "OBS"> <templateId root="05.02.840.1.604401.10..4.2" /> < id nullFlavor="NA" /> <code codeSystem="local" code="HCT" displayName= "HCT" /> <statusCode code="completed" /> <effectiveTime value= "" /> <value unit="%" xsi:type="PQ" value="33.9" /> <interpretationCode codeSystem="local" code="*" /> < referenceRange> <observationRange> <text>37.0-47.0</text > </observationRange> </referenceRange> </observation > </component> <component> <observation moodCode="EVN" classCode="OBS"> <templateId root="216.840.1.997413.10.20.22.4.2" /> <id nullFlavor="NA" /> <code codeSystem="local" code="HGB" displayName="HGB" /> <statusCode code="completed" /> < effectiveTime value="" /> <value unit="g/dL" xsi:type="PQ" value="10.6" /> <interpretationCode codeSystem="local" code="*" /> <referenceRange> <observationRange> <text>12.0- 16.0</text> </observationRange> </referenceRange> </ observation> </component> <component> <observation moodCode= "EVN" classCode="OBS"> <templateId root="05.02.840.1.317696.10..4.2 " /> <id nullFlavor="NA" /> <code codeSystem="local" code="MCH " displayName="MCH" /> <statusCode code="completed" /> < effectiveTime value="" /> <value unit="pg" xsi:type="PQ" value="28.0" /> <referenceRange> <observationRange> <text>27.0-32.0</text> </observationRange> </ referenceRange> </observation> </component> <component> <observation moodCode="EVN" classCode="OBS"> <templateId root= "05.02.840.1.205394.10.20.22.4.2" /> <id nullFlavor="NA" /> < code codeSystem="local" code="MCHC" displayName="MCHC" /> <statusCode code="completed" /> <effectiveTime value="" /> < value unit="g/dL" xsi:type="PQ" value="31.3" /> <interpretationCode codeSystem="local" code="*" /> <referenceRange> < observationRange> <text>32.0-36.0</text> </ observationRange> </referenceRange> </observation> </ component> <component> <observation moodCode="EVN" classCode="OBS"> <templateId root="216.840.1.344257.10.20.22.4.2" /> <id nullFlavor="NA" /> <code codeSystem="local" code="MCV" displayName="MCV " /> <statusCode code="completed" /> <effectiveTime value= "" /> <value unit="fL" xsi:type="PQ" value="89.4" /> <referenceRange> <observationRange> <text>82.0-99.0< /text> </observationRange> </referenceRange> </ observation> </component> <component> <observation moodCode= "EVN" classCode="OBS"> <templateId root="16.840.1.085474.10.20.22.4.2 " /> <id nullFlavor="NA" /> <code codeSystem="local" code="MPV " displayName="MPV" /> <statusCode code="completed" /> < effectiveTime value="" /> <value unit="fL" xsi:type="PQ" value="10.0" /> <referenceRange> <observationRange> <text>9.4-12.4</text> </observationRange> </ referenceRange> </observation> </component> <component> <observation moodCode="EVN" classCode="OBS"> <templateId root= "2.16.840.1.697553.10.20.22.4.2" /> <id nullFlavor="NA" /> < code codeSystem="local" code="PLT" displayName="Platelet Count" /> < statusCode code="completed" /> <effectiveTime value="" /> <value unit="K/uL" xsi:type="PQ" value="309" /> < referenceRange> <observationRange> <text>150-400</text> </observationRange> </referenceRange> </observation > </component> <component> <observation moodCode="EVN" classCode="OBS"> <templateId root="05.02.840.1.686115.1022.4.2" /> <id nullFlavor="NA" /> <code codeSystem="local" code="RBC" displayName="RBC" /> <statusCode code="completed" /> < effectiveTime value="" /> <value unit="10*6/uL" xsi:type= "PQ" value="3.79" /> <interpretationCode codeSystem="local" code="*" / > <referenceRange> <observationRange> <text> 4.00-5.20</text> </observationRange> </referenceRange> </observation> </component> <component> <observation moodCode="EVN" classCode="OBS"> <templateId root= "05.02.840.1.786240.10.20.22.4.2" /> <id nullFlavor="NA" /> < code codeSystem="local" code="RDW" displayName="RDW" /> <statusCode code="completed" /> <effectiveTime value="" /> < value unit="%" xsi:type="PQ" value="15.7" /> <interpretationCode codeSystem="local" code="*" /> <referenceRange> < observationRange> <text>11.5-14.5</text> </ observationRange> </referenceRange> </observation> </ component> <component> <observation moodCode="EVN" classCode="OBS"> <templateId root="16.840.1.540080.10.20.22.4.2" /> <id nullFlavor="NA" /> <code codeSystem="local" code="WBCIR" displayName= "WBC" /> <statusCode code="completed" /> <effectiveTime value= "" /> <value unit="K/uL" xsi:type="PQ" value="8.0" /> <referenceRange> <observationRange> <text>4.8-10.8< /text> </observationRange> </referenceRange> </ observation> </component> </organizer> </entry> <entry> <organizer moodCode="EVN" classCode="BATTERY"> <templateId root= "05.02.840.1.055157.10..22.4.1" /> <id nullFlavor="NA" /> <code codeSystem="local" code="MG" displayName="Magnesium" /> <statusCode code= "completed" /> <component> <observation moodCode="EVN" classCode= "OBS"> <templateId root="05.02.840.1.034384.10.2022.4.2" /> < id nullFlavor="NA" /> <code codeSystem="local" code="MG" displayName= "Magnesium" /> <statusCode code="completed" /> <effectiveTime value="[id number]" /> <value unit="mg/dL" xsi:type="PQ" value="1.8" / > <referenceRange> <observationRange> <text>1.8 -2.5</text> </observationRange> </referenceRange> </ observation> </component> </organizer> </entry> <entry> <organizer moodCode="EVN" classCode="BATTERY"> <templateId root= "216.840.1.532749.10.22.4.1" /> <id nullFlavor="NA" /> <code codeSystem="local" code="BMP" displayName="Basic Metabolic Panel (BMP)" /> <statusCode code="completed" /> <component> <observation moodCode= "EVN" classCode="OBS"> <templateId root="216.840.1.814024.10..4.2 " /> <id nullFlavor="NA" /> <code codeSystem="local" code= "AGAP" displayName="Anion Gap" /> <statusCode code="completed" /> <effectiveTime value="" /> <value unit="NA" xsi:type= "PQ" value="9" /> <referenceRange> <observationRange> <text>3-20</text> </observationRange> </ referenceRange> </observation> </component> <component> <observation moodCode="EVN" classCode="OBS"> <templateId root= "216.840.1.104488.10...4.2" /> <id nullFlavor="NA" /> < code codeSystem="local" code="BUN" displayName="BUN" /> <statusCode code="completed" /> <effectiveTime value="" /> < value unit="mg/dL" xsi:type="PQ" value="8" /> <referenceRange> <observationRange> <text>4-20</text> </ observationRange> </referenceRange> </observation> </ component> <component> <observation moodCode="EVN" classCode="OBS"> <templateId root="16.840.1.531139.01.03.22.4.2" /> <id nullFlavor="NA" /> <code codeSystem="local" code="CA" displayName= "Calcium" /> <statusCode code="completed" /> <effectiveTime value="" /> <value unit="mg/dL" xsi:type="PQ" value="8.2" / > <interpretationCode codeSystem="local" code="*" /> < referenceRange> <observationRange> <text>8.6-10.0</text > </observationRange> </referenceRange> </observation > </component> <component> <observation moodCode="EVN" classCode="OBS"> <templateId root="05.02.840.1.382274.01.03.22.4.2" /> <id nullFlavor="NA" /> <code codeSystem="local" code="CL" displayName="Chloride" /> <statusCode code="completed" /> < effectiveTime value="" /> <value unit="mEq/L" xsi:type="PQ " value="101" /> <referenceRange> <observationRange> <text>99-109</text> </observationRange> </ referenceRange> </observation> </component> <component> <observation moodCode="EVN" classCode="OBS"> <templateId root= "05.02.840.1.977834.10.22.4.2" /> <id nullFlavor="NA" /> < code codeSystem="local" code="CO2" displayName="CO2" /> <statusCode code="completed" /> <effectiveTime value="" /> < value unit="mEq/L" xsi:type="PQ" value="25" /> <referenceRange> <observationRange> <text>22-32</text> </ observationRange> </referenceRange> </observation> </ component> <component> <observation moodCode="EVN" classCode="OBS"> <templateId root="16.840.1.617065.10..4.2" /> <id nullFlavor="NA" /> <code codeSystem="local" code="CREAT" displayName= "Creatinine" /> <statusCode code="completed" /> < effectiveTime value="" /> <value unit="mg/dL" xsi:type="PQ " value="0.51" /> <referenceRange> <observationRange> <text>0.44-1.03</text> </observationRange> </ referenceRange> </observation> </component> <component> <observation moodCode="EVN" classCode="OBS"> <templateId root= "05.02.840.1.001622.01.03.22.4.2" /> <id nullFlavor="NA" /> < code codeSystem="local" code="GLU" displayName="Glucose" /> < statusCode code="completed" /> <effectiveTime value="" /> <value unit="mg/dL" xsi:type="PQ" value="116" /> < interpretationCode codeSystem="local" code="*" /> <referenceRange> <observationRange> <text>70-100</text> </ observationRange> </referenceRange> </observation> </ component> <component> <observation moodCode="EVN" classCode="OBS"> <templateId root="16.840.1.657956...4.2" /> <id nullFlavor="NA" /> <code codeSystem="local" code="K" displayName= "Potassium" /> <statusCode code="completed" /> <effectiveTime value="" /> <value unit="mEq/L" xsi:type="PQ" value="3.0" / > <interpretationCode codeSystem="local" code="*" /> < referenceRange> <observationRange> <text>3.6-5.1</text> </observationRange> </referenceRange> </observation > </component> <component> <observation moodCode="EVN" classCode="OBS"> <templateId root="840.1.952438.22.4.2" /> <id nullFlavor="NA" /> <code codeSystem="local" code="NA" displayName="Sodium" /> <statusCode code="completed" /> < effectiveTime value="" /> <value unit="mEq/L" xsi:type="PQ " value="135" /> <interpretationCode codeSystem="local" code="*" /> <referenceRange> <observationRange> <text>136-144 </text> </observationRange> </referenceRange> </ observation> </component> </organizer> </entry> <entry> <organizer moodCode="EVN" classCode="BATTERY"> <templateId root= "840.1.295602.22.4.1" /> <id nullFlavor="NA" /> <code codeSystem="local" code="GFR" displayName="eGFR" /> <statusCode code= "completed" /> <component> <observation moodCode="EVN" classCode= "OBS"> <templateId root="05.02.840.1.248412.22.4.2" /> < id nullFlavor="NA" /> <code codeSystem="local" code="GFR" displayName= "eGFR" /> <statusCode code="completed" /> <effectiveTime value ="" /> <value unit="NA" xsi:type="PQ" value=">60" /> <referenceRange> <observationRange> <text>>60< /text> </observationRange> </referenceRange> </ observation> </component> </organizer> </entry> <entry> <organizer moodCode="EVN" classCode="BATTERY"> <templateId root= "840.1.347211.10.20.22.4.1" /> <id nullFlavor="NA" /> <code codeSystem="local" code="CBCND" displayName="CBC With Platelet No Differential" /> <statusCode code="completed" /> <component> <observation moodCode="EVN" classCode="OBS"> <templateId root= "05.02.840.1.213210.10.22.4.2" /> <id nullFlavor="NA" /> < code codeSystem="local" code="HCT" displayName="HCT" /> <statusCode code="completed" /> <effectiveTime value="" /> < value unit="%" xsi:type="PQ" value="35.4" /> <interpretationCode codeSystem="local" code="*" /> <referenceRange> < observationRange> <text>37.0-47.0</text> </ observationRange> </referenceRange> </observation> </ component> <component> <observation moodCode="EVN" classCode="OBS"> <templateId root="05.02.840.1.186266.10.2022.4.2" /> <id nullFlavor="NA" /> <code codeSystem="local" code="HGB" displayName="HGB " /> <statusCode code="completed" /> <effectiveTime value= "[id number]" /> <value unit="g/dL" xsi:type="PQ" value="11.2" /> <interpretationCode codeSystem="local" code="*" /> < referenceRange> <observationRange> <text>12.0-16.0</text > </observationRange> </referenceRange> </observation > </component> <component> <observation moodCode="EVN" classCode="OBS"> <templateId root="05.02.840.1.407071.10.20.22.4.2" /> <id nullFlavor="NA" /> <code codeSystem="local" code="MCH" displayName="MCH" /> <statusCode code="completed" /> < effectiveTime value="" /> <value unit="pg" xsi:type="PQ" value="28.4" /> <referenceRange> <observationRange> <text>27.0-32.0</text> </observationRange> </ referenceRange> </observation> </component> <component> <observation moodCode="EVN" classCode="OBS"> <templateId root= "840.1.220927.10...4.2" /> <id nullFlavor="NA" /> < code codeSystem="local" code="MCHC" displayName="MCHC" /> <statusCode code="completed" /> <effectiveTime value="" /> < value unit="g/dL" xsi:type="PQ" value="31.6" /> <interpretationCode codeSystem="local" code="*" /> <referenceRange> < observationRange> <text>32.0-36.0</text> </ observationRange> </referenceRange> </observation> </ component> <component> <observation moodCode="EVN" classCode="OBS"> <templateId root="05.02.840.1.991898.10.20.22.4.2" /> <id nullFlavor="NA" /> <code codeSystem="local" code="MCV" displayName="MCV " /> <statusCode code="completed" /> <effectiveTime value= "" /> <value unit="fL" xsi:type="PQ" value="89.8" /> <referenceRange> <observationRange> <text>82.0-99.0< /text> </observationRange> </referenceRange> </ observation> </component> <component> <observation moodCode= "EVN" classCode="OBS"> <templateId root="05.02.840.1.437987..22.4.2 " /> <id nullFlavor="NA" /> <code codeSystem="local" code="MPV " displayName="MPV" /> <statusCode code="completed" /> < effectiveTime value="" /> <value unit="fL" xsi:type="PQ" value="10.5" /> <referenceRange> <observationRange> <text>9.4-12.4</text> </observationRange> </ referenceRange> </observation> </component> <component> <observation moodCode="EVN" classCode="OBS"> <templateId root= "05.02.840.1.740007.22.4.2" /> <id nullFlavor="NA" /> < code codeSystem="local" code="PLT" displayName="Platelet Count" /> < statusCode code="completed" /> <effectiveTime value="" /> <value unit="K/uL" xsi:type="PQ" value="311" /> < referenceRange> <observationRange> <text>150-400</text> </observationRange> </referenceRange> </observation > </component> <component> <observation moodCode="EVN" classCode="OBS"> <templateId root="05.02.840.1.355116.22.4.2" /> <id nullFlavor="NA" /> <code codeSystem="local" code="RBC" displayName="RBC" /> <statusCode code="completed" /> < effectiveTime value="" /> <value unit="10*6/uL" xsi:type= "PQ" value="3.94" /> <interpretationCode codeSystem="local" code="*" / > <referenceRange> <observationRange> <text> 4.00-5.20</text> </observationRange> </referenceRange> </observation> </component> <component> <observation moodCode="EVN" classCode="OBS"> <templateId root= "16.840.1.851871...4.2" /> <id nullFlavor="NA" /> < code codeSystem="local" code="RDW" displayName="RDW" /> <statusCode code="completed" /> <effectiveTime value="" /> < value unit="%" xsi:type="PQ" value="15.5" /> <interpretationCode codeSystem="local" code="*" /> <referenceRange> < observationRange> <text>11.5-14.5</text> </ observationRange> </referenceRange> </observation> </ component> <component> <observation moodCode="EVN" classCode="OBS"> <templateId root="05.02.840.1.380183.10.22.4.2" /> <id nullFlavor="NA" /> <code codeSystem="local" code="WBCIR" displayName= "WBC" /> <statusCode code="completed" /> <effectiveTime value= "" /> <value unit="K/uL" xsi:type="PQ" value="5.5" /> <referenceRange> <observationRange> <text>4.8-10.8< /text> </observationRange> </referenceRange> </ observation> </component> </organizer> </entry> <entry> <organizer moodCode="EVN" classCode="BATTERY"> <templateId root= "05.02.840.1.230671.10..22.4.1" /> <id nullFlavor="NA" /> <code codeSystem="local" code="MG" displayName="Magnesium" /> <statusCode code= "completed" /> <component> <observation moodCode="EVN" classCode= "OBS"> <templateId root="840.1.851617.01.03.22.4.2" /> < id nullFlavor="NA" /> <code codeSystem="local" code="MG" displayName= "Magnesium" /> <statusCode code="completed" /> <effectiveTime value="[id number]" /> <value unit="mg/dL" xsi:type="PQ" value="1.5" / > <interpretationCode codeSystem="local" code="*" /> < referenceRange> <observationRange> <text>1.8-2.5</text> </observationRange> </referenceRange> </observation > </component> </organizer> </entry> <entry> <organizer moodCode= "EVN" classCode="BATTERY"> <templateId root="05.02.840.1.513911.1022.4.1 " /> <id nullFlavor="NA" /> <code codeSystem="local" code="BMP" displayName="Basic Metabolic Panel (BMP)" /> <statusCode code="completed" / > <component> <observation moodCode="EVN" classCode="OBS"> <templateId root="05.02.840.1.075993...4.2" /> <id nullFlavor="NA " /> <code codeSystem="local" code="AGAP" displayName="Anion Gap" /> <statusCode code="completed" /> <effectiveTime value= "" /> <value unit="NA" xsi:type="PQ" value="7" /> <referenceRange> <observationRange> <text>3-20</text> </observationRange> </referenceRange> </observation> </component> <component> <observation moodCode="EVN" classCode= "OBS"> <templateId root="16.840.1.528799.10..22.4.2" /> < id nullFlavor="NA" /> <code codeSystem="local" code="BUN" displayName= "BUN" /> <statusCode code="completed" /> <effectiveTime value= "" /> <value unit="mg/dL" xsi:type="PQ" value="11" /> <referenceRange> <observationRange> <text>4-20</ text> </observationRange> </referenceRange> </ observation> </component> <component> <observation moodCode= "EVN" classCode="OBS"> <templateId root="16.840.1.299829.10..22.4.2 " /> <id nullFlavor="NA" /> <code codeSystem="local" code="CA " displayName="Calcium" /> <statusCode code="completed" /> < effectiveTime value="" /> <value unit="mg/dL" xsi:type="PQ " value="8.6" /> <referenceRange> <observationRange> <text>8.6-10.0</text> </observationRange> </ referenceRange> </observation> </component> <component> <observation moodCode="EVN" classCode="OBS"> <templateId root= "840.1.113641.10..22.4.2" /> <id nullFlavor="NA" /> < code codeSystem="local" code="CL" displayName="Chloride" /> < statusCode code="completed" /> <effectiveTime value="" /> <value unit="mEq/L" xsi:type="PQ" value="104" /> < referenceRange> <observationRange> <text>99-109</text> </observationRange> </referenceRange> </observation> </component> <component> <observation moodCode="EVN" classCode ="OBS"> <templateId root="216.840.1.752509.01.03.22.4.2" /> < id nullFlavor="NA" /> <code codeSystem="local" code="CO2" displayName= "CO2" /> <statusCode code="completed" /> <effectiveTime value= "" /> <value unit="mEq/L" xsi:type="PQ" value="25" /> <referenceRange> <observationRange> <text>22-32</ text> </observationRange> </referenceRange> </ observation> </component> <component> <observation moodCode= "EVN" classCode="OBS"> <templateId root="216.840.1.115781....4.2 " /> <id nullFlavor="NA" /> <code codeSystem="local" code= "CREAT" displayName="Creatinine" /> <statusCode code="completed" /> <effectiveTime value="" /> <value unit="mg/dL" xsi: type="PQ" value="0.50" /> <referenceRange> <observationRange > <text>0.44-1.03</text> </observationRange> </ referenceRange> </observation> </component> <component> <observation moodCode="EVN" classCode="OBS"> <templateId root= "16.840.1.406023.10..22.4.2" /> <id nullFlavor="NA" /> < code codeSystem="local" code="GLU" displayName="Glucose" /> < statusCode code="completed" /> <effectiveTime value="" /> <value unit="mg/dL" xsi:type="PQ" value="118" /> < interpretationCode codeSystem="local" code="*" /> <referenceRange> <observationRange> <text>70-100</text> </ observationRange> </referenceRange> </observation> </ component> <component> <observation moodCode="EVN" classCode="OBS"> <templateId root="16.840.1.897605...4.2" /> <id nullFlavor="NA" /> <code codeSystem="local" code="K" displayName= "Potassium" /> <statusCode code="completed" /> <effectiveTime value="" /> <value unit="mEq/L" xsi:type="PQ" value="3.5" / > <interpretationCode codeSystem="local" code="*" /> < referenceRange> <observationRange> <text>3.6-5.1</text> </observationRange> </referenceRange> </observation > </component> <component> <observation moodCode="EVN" classCode="OBS"> <templateId root="16.840.1.055089.10...4.2" /> <id nullFlavor="NA" /> <code codeSystem="local" code="NA" displayName="Sodium" /> <statusCode code="completed" /> < effectiveTime value="" /> <value unit="mEq/L" xsi:type="PQ " value="136" /> <referenceRange> <observationRange> <text>136-144</text> </observationRange> </ referenceRange> </observation> </component> </organizer> </entry > <entry> <organizer moodCode="EVN" classCode="BATTERY"> <templateId root="05.02.840.1.682832.10..22.4.1" /> <id nullFlavor="NA" /> <code codeSystem="local" code="GFR" displayName="eGFR" /> <statusCode code= "completed" /> <component> <observation moodCode="EVN" classCode= "OBS"> <templateId root="05.02.840.1.048802...4.2" /> < id nullFlavor="NA" /> <code codeSystem="local" code="GFR" displayName= "eGFR" /> <statusCode code="completed" /> <effectiveTime value ="[id number]" /> <value unit="NA" xsi:type="PQ" value=">60" /> <referenceRange> <observationRange> <text>>60< /text> </observationRange> </referenceRange> </ observation> </component> </organizer> </entry> <entry> <organizer moodCode="EVN" classCode="BATTERY"> <templateId root= "05.02.840.1.946915.10.22.4.1" /> <id nullFlavor="NA" /> <code codeSystem="local" code="CBCND" displayName="CBC With Platelet No Differential" /> <statusCode code="completed" /> <component> <observation moodCode="EVN" classCode="OBS"> <templateId root= "05.02.840.1.331922.22.4.2" /> <id nullFlavor="NA" /> < code codeSystem="local" code="HCT" displayName="HCT" /> <statusCode code="completed" /> <effectiveTime value="" /> < value unit="%" xsi:type="PQ" value="36.4" /> <interpretationCode codeSystem="local" code="*" /> <referenceRange> < observationRange> <text>37.0-47.0</text> </ observationRange> </referenceRange> </observation> </ component> <component> <observation moodCode="EVN" classCode="OBS"> <templateId root="2.16.840.1.117984.1022.4.2" /> <id nullFlavor="NA" /> <code codeSystem="local" code="HGB" displayName="HGB " /> <statusCode code="completed" /> <effectiveTime value= "" /> <value unit="g/dL" xsi:type="PQ" value="11.4" /> <interpretationCode codeSystem="local" code="*" /> < referenceRange> <observationRange> <text>12.0-16.0</text > </observationRange> </referenceRange> </observation > </component> <component> <observation moodCode="EVN" classCode="OBS"> <templateId root="216.840.1.684460.10.2022.4.2" /> <id nullFlavor="NA" /> <code codeSystem="local" code="MCH" displayName="MCH" /> <statusCode code="completed" /> < effectiveTime value="[id number]" /> <value unit="pg" xsi:type="PQ" value="28.1" /> <referenceRange> <observationRange> <text>27.0-32.0</text> </observationRange> </ referenceRange> </observation> </component> <component> <observation moodCode="EVN" classCode="OBS"> <templateId root= "2.16.840.1.674509.10.20.22.4.2" /> <id nullFlavor="NA" /> < code codeSystem="local" code="MCHC" displayName="MCHC" /> <statusCode code="completed" /> <effectiveTime value="" /> < value unit="g/dL" xsi:type="PQ" value="31.3" /> <interpretationCode codeSystem="local" code="*" /> <referenceRange> < observationRange> <text>32.0-36.0</text> </ observationRange> </referenceRange> </observation> </ component> <component> <observation moodCode="EVN" classCode="OBS"> <templateId root="216.840.1.929477.1022.4.2" /> <id nullFlavor="NA" /> <code codeSystem="local" code="MCV" displayName="MCV " /> <statusCode code="completed" /> <effectiveTime value= "" /> <value unit="fL" xsi:type="PQ" value="89.7" /> <referenceRange> <observationRange> <text>82.0-99.0< /text> </observationRange> </referenceRange> </ observation> </component> <component> <observation moodCode= "EVN" classCode="OBS"> <templateId root="216.840.1.647901.10.2022.4.2 " /> <id nullFlavor="NA" /> <code codeSystem="local" code="MPV " displayName="MPV" /> <statusCode code="completed" /> < effectiveTime value="" /> <value unit="fL" xsi:type="PQ" value="10.0" /> <referenceRange> <observationRange> <text>9.4-12.4</text> </observationRange> </ referenceRange> </observation> </component> <component> <observation moodCode="EVN" classCode="OBS"> <templateId root= "16.840.1.885789.22.4.2" /> <id nullFlavor="NA" /> < code codeSystem="local" code="PLT" displayName="Platelet Count" /> < statusCode code="completed" /> <effectiveTime value="" /> <value unit="K/uL" xsi:type="PQ" value="403" /> < interpretationCode codeSystem="local" code="*" /> <referenceRange> <observationRange> <text>150-400</text> </ observationRange> </referenceRange> </observation> </ component> <component> <observation moodCode="EVN" classCode="OBS"> <templateId root="05.02.840.1.277084.22.4.2" /> <id nullFlavor="NA" /> <code codeSystem="local" code="RBC" displayName="RBC " /> <statusCode code="completed" /> <effectiveTime value= "" /> <value unit="10*6/uL" xsi:type="PQ" value="4.06" /> <referenceRange> <observationRange> <text>4.00- 5.20</text> </observationRange> </referenceRange> </ observation> </component> <component> <observation moodCode= "EVN" classCode="OBS"> <templateId root="16.840.1.922788..22.4.2 " /> <id nullFlavor="NA" /> <code codeSystem="local" code="RDW " displayName="RDW" /> <statusCode code="completed" /> < effectiveTime value="" /> <value unit="%" xsi:type="PQ " value="15.2" /> <interpretationCode codeSystem="local" code="*" /> <referenceRange> <observationRange> <text>11.5- 14.5</text> </observationRange> </referenceRange> </ observation> </component> <component> <observation moodCode= "EVN" classCode="OBS"> <templateId root="840.1.272987.22.4.2 " /> <id nullFlavor="NA" /> <code codeSystem="local" code= "WBCIR" displayName="WBC" /> <statusCode code="completed" /> < effectiveTime value="" /> <value unit="K/uL" xsi:type="PQ" value="5.0" /> <referenceRange> <observationRange> <text>4.8-10.8</text> </observationRange> </ referenceRange> </observation> </component> </organizer> </entry > <entry> <organizer moodCode="EVN" classCode="BATTERY"> <templateId root="840.1.241596.22.4.1" /> <id nullFlavor="NA" /> <code codeSystem="local" code="MG" displayName="Magnesium" /> <statusCode code= "completed" /> <component> <observation moodCode="EVN" classCode= "OBS"> <templateId root="840.1.265544.102022.4.2" /> < id nullFlavor="NA" /> <code codeSystem="local" code="MG" displayName= "Magnesium" /> <statusCode code="completed" /> <effectiveTime value="" /> <value unit="mg/dL" xsi:type="PQ" value="2.0" / > <referenceRange> <observationRange> <text>1.8 -2.5</text> </observationRange> </referenceRange> </ observation> </component> </organizer> </entry> <entry> <organizer moodCode="EVN" classCode="BATTERY"> <templateId root= "2.16.840.1.930987.10..22.4.1" /> <id nullFlavor="NA" /> <code codeSystem="local" code="BMP" displayName="Basic Metabolic Panel (BMP)" /> <statusCode code="completed" /> <component> <observation moodCode= "EVN" classCode="OBS"> <templateId root="2.16.840.1.066715.10...4.2 " /> <id nullFlavor="NA" /> <code codeSystem="local" code= "AGAP" displayName="Anion Gap" /> <statusCode code="completed" /> <effectiveTime value="" /> <value unit="NA" xsi:type= "PQ" value="9" /> <referenceRange> <observationRange> <text>3-20</text> </observationRange> </ referenceRange> </observation> </component> <component> <observation moodCode="EVN" classCode="OBS"> <templateId root= "216.840.1.689303.10..22.4.2" /> <id nullFlavor="NA" /> < code codeSystem="local" code="BUN" displayName="BUN" /> <statusCode code="completed" /> <effectiveTime value="" /> < value unit="mg/dL" xsi:type="PQ" value="15" /> <referenceRange> <observationRange> <text>4-20</text> </ observationRange> </referenceRange> </observation> </ component> <component> <observation moodCode="EVN" classCode="OBS"> <templateId root="05.02.840.1.169187.22.4.2" /> <id nullFlavor="NA" /> <code codeSystem="local" code="CA" displayName= "Calcium" /> <statusCode code="completed" /> <effectiveTime value="" /> <value unit="mg/dL" xsi:type="PQ" value="9.1" / > <referenceRange> <observationRange> <text>8.6 -10.0</text> </observationRange> </referenceRange> </ observation> </component> <component> <observation moodCode= "EVN" classCode="OBS"> <templateId root="05.02.840.1.925081.22.4.2 " /> <id nullFlavor="NA" /> <code codeSystem="local" code="CL " displayName="Chloride" /> <statusCode code="completed" /> < effectiveTime value="" /> <value unit="mEq/L" xsi:type="PQ " value="101" /> <referenceRange> <observationRange> <text>99-109</text> </observationRange> </ referenceRange> </observation> </component> <component> <observation moodCode="EVN" classCode="OBS"> <templateId root= "05.02.840.1.929345..2022.4.2" /> <id nullFlavor="NA" /> < code codeSystem="local" code="CO2" displayName="CO2" /> <statusCode code="completed" /> <effectiveTime value="" /> < value unit="mEq/L" xsi:type="PQ" value="29" /> <referenceRange> <observationRange> <text>22-32</text> </ observationRange> </referenceRange> </observation> </ component> <component> <observation moodCode="EVN" classCode="OBS"> <templateId root="216.840.1.257503.01.03.22.4.2" /> <id nullFlavor="NA" /> <code codeSystem="local" code="CREAT" displayName= "Creatinine" /> <statusCode code="completed" /> < effectiveTime value="" /> <value unit="mg/dL" xsi:type="PQ " value="0.51" /> <referenceRange> <observationRange> <text>0.44-1.03</text> </observationRange> </ referenceRange> </observation> </component> <component> <observation moodCode="EVN" classCode="OBS"> <templateId root= "216.840.1.200008.01.03.22.4.2" /> <id nullFlavor="NA" /> < code codeSystem="local" code="GLU" displayName="Glucose" /> < statusCode code="completed" /> <effectiveTime value="" /> <value unit="mg/dL" xsi:type="PQ" value="104" /> < interpretationCode codeSystem="local" code="*" /> <referenceRange> <observationRange> <text>70-100</text> </ observationRange> </referenceRange> </observation> </ component> <component> <observation moodCode="EVN" classCode="OBS"> <templateId root="216840.1.374028.22.4.2" /> <id nullFlavor="NA" /> <code codeSystem="local" code="K" displayName= "Potassium" /> <statusCode code="completed" /> <effectiveTime value="" /> <value unit="mEq/L" xsi:type="PQ" value="3.6" / > <referenceRange> <observationRange> <text>3.6 -5.1</text> </observationRange> </referenceRange> </ observation> </component> <component> <observation moodCode= "EVN" classCode="OBS"> <templateId root="840.1.573339.01.03.22.4.2 " /> <id nullFlavor="NA" /> <code codeSystem="local" code="NA " displayName="Sodium" /> <statusCode code="completed" /> < effectiveTime value="" /> <value unit="mEq/L" xsi:type="PQ " value="139" /> <referenceRange> <observationRange> <text>136-144</text> </observationRange> </ referenceRange> </observation> </component> </organizer> </entry > <entry> <organizer moodCode="EVN" classCode="BATTERY"> <templateId root="840.1.560756.01.03.22.4.1" /> <id nullFlavor="NA" /> <code codeSystem="local" code="GFR" displayName="eGFR" /> <statusCode code= "completed" /> <component> <observation moodCode="EVN" classCode= "OBS"> <templateId root="05.02.840.1.411850.22.4.2" /> < id nullFlavor="NA" /> <code codeSystem="local" code="GFR" displayName= "eGFR" /> <statusCode code="completed" /> <effectiveTime value ="148503854918" /> <value unit="NA" xsi:type="PQ" value=">60" /> <referenceRange> <observationRange> <text>>60< /text> </observationRange> </referenceRange> </ observation> </component> </organizer> </entry> <entry> <organizer moodCode="EVN" classCode="BATTERY"> <templateId root= "216.840.1.432250.10..22.4.1" /> <id nullFlavor="NA" /> <code codeSystem="local" code="CBCND" displayName="CBC With Platelet No Differential" /> <statusCode code="completed" /> <component> <observation moodCode="EVN" classCode="OBS"> <templateId root= "216.840.1.974608.10...4.2" /> <id nullFlavor="NA" /> < code codeSystem="local" code="HCT" displayName="HCT" /> <statusCode code="completed" /> <effectiveTime value="980505655886" /> < value unit="%" xsi:type="PQ" value="37.8" /> <referenceRange> <observationRange> <text>37.0-47.0</text> </ observationRange> </referenceRange> </observation> </ component> <component> <observation moodCode="EVN" classCode="OBS"> <templateId root="216.840.1.603657.10..22.4.2" /> <id nullFlavor="NA" /> <code codeSystem="local" code="HGB" displayName="HGB " /> <statusCode code="completed" /> <effectiveTime value= "013737553044" /> <value unit="g/dL" xsi:type="PQ" value="12.1" /> <referenceRange> <observationRange> <text>12.0- 16.0</text> </observationRange> </referenceRange> </ observation> </component> <component> <observation moodCode= "EVN" classCode="OBS"> <templateId root="216.840.1.932121.10..22.4.2 " /> <id nullFlavor="NA" /> <code codeSystem="local" code="MCH " displayName="MCH" /> <statusCode code="completed" /> < effectiveTime value="050060384878" /> <value unit="pg" xsi:type="PQ" value="28.3" /> <referenceRange> <observationRange> <text>27.0-32.0</text> </observationRange> </ referenceRange> </observation> </component> <component> <observation moodCode="EVN" classCode="OBS"> <templateId root= "05.02.840.1.778660.10..4.2" /> <id nullFlavor="NA" /> < code codeSystem="local" code="MCHC" displayName="MCHC" /> <statusCode code="completed" /> <effectiveTime value="644111148372" /> < value unit="g/dL" xsi:type="PQ" value="32.0" /> <referenceRange> <observationRange> <text>32.0-36.0</text> </ observationRange> </referenceRange> </observation> </ component> <component> <observation moodCode="EVN" classCode="OBS"> <templateId root="16.840.1.008493.10..22.4.2" /> <id nullFlavor="NA" /> <code codeSystem="local" code="MCV" displayName="MCV " /> <statusCode code="completed" /> <effectiveTime value= "329686189381" /> <value unit="fL" xsi:type="PQ" value="88.3" /> <referenceRange> <observationRange> <text>82.0-99.0< /text> </observationRange> </referenceRange> </ observation> </component> <component> <observation moodCode= "EVN" classCode="OBS"> <templateId root="05.02.840.1.851390.10.22.4.2 " /> <id nullFlavor="NA" /> <code codeSystem="local" code="MPV " displayName="MPV" /> <statusCode code="completed" /> < effectiveTime value="398158286776" /> <value unit="fL" xsi:type="PQ" value="9.8" /> <referenceRange> <observationRange> <text>9.4-12.4</text> </observationRange> </ referenceRange> </observation> </component> <component> <observation moodCode="EVN" classCode="OBS"> <templateId root= "05.02.840.1.926052.22.4.2" /> <id nullFlavor="NA" /> < code codeSystem="local" code="PLT" displayName="Platelet Count" /> < statusCode code="completed" /> <effectiveTime value="520055435679" /> <value unit="K/uL" xsi:type="PQ" value="390" /> < referenceRange> <observationRange> <text>150-400</text> </observationRange> </referenceRange> </observation > </component> <component> <observation moodCode="EVN" classCode="OBS"> <templateId root="05.02.840.1.527378.22.4.2" /> <id nullFlavor="NA" /> <code codeSystem="local" code="RBC" displayName="RBC" /> <statusCode code="completed" /> < effectiveTime value="698146933989" /> <value unit="10*6/uL" xsi:type= "PQ" value="4.28" /> <referenceRange> <observationRange> <text>4.00-5.20</text> </observationRange> </ referenceRange> </observation> </component> <component> <observation moodCode="EVN" classCode="OBS"> <templateId root= "216.840.1.894359.22.4.2" /> <id nullFlavor="NA" /> < code codeSystem="local" code="RDW" displayName="RDW" /> <statusCode code="completed" /> <effectiveTime value="299265281118" /> < value unit="%" xsi:type="PQ" value="15.2" /> <interpretationCode codeSystem="local" code="*" /> <referenceRange> < observationRange> <text>11.5-14.5</text> </ observationRange> </referenceRange> </observation> </ component> <component> <observation moodCode="EVN" classCode="OBS"> <templateId root="216.840.1.844664.22.4.2" /> <id nullFlavor="NA" /> <code codeSystem="local" code="WBCIR" displayName= "WBC" /> <statusCode code="completed" /> <effectiveTime value= "107483895248" /> <value unit="K/uL" xsi:type="PQ" value="4.2" /> <interpretationCode codeSystem="local" code="*" /> <referenceRange > <observationRange> <text>4.8-10.8</text> </ observationRange> </referenceRange> </observation> </ component> </organizer> </entry> <entry> <organizer moodCode="EVN" classCode="BATTERY"> <templateId root="16.840.1.172826.10.22.4.1" /> <id nullFlavor="NA" /> <code codeSystem="local" code="MG" displayName= "Magnesium" /> <statusCode code="completed" /> <component> < observation moodCode="EVN" classCode="OBS"> <templateId root= "840.1.650268.01.03.22.4.2" /> <id nullFlavor="NA" /> < code codeSystem="local" code="MG" displayName="Magnesium" /> < statusCode code="completed" /> <effectiveTime value="485018679150" /> <value unit="mg/dL" xsi:type="PQ" value="1.8" /> < referenceRange> <observationRange> <text>1.8-2.5</text> </observationRange> </referenceRange> </observation > </component> </organizer> </entry> <entry> <organizer moodCode= "EVN" classCode="BATTERY"> <templateId root="05.02.840.1.292236.01.03.22.4.1 " /> <id nullFlavor="NA" /> <code codeSystem="local" code="BMP" displayName="Basic Metabolic Panel (BMP)" /> <statusCode code="completed" / > <component> <observation moodCode="EVN" classCode="OBS"> <templateId root="05.02.840.1.752167.10..22.4.2" /> <id nullFlavor="NA " /> <code codeSystem="local" code="AGAP" displayName="Anion Gap" /> <statusCode code="completed" /> <effectiveTime value= "" /> <value unit="NA" xsi:type="PQ" value="7" /> <referenceRange> <observationRange> <text>3-20</text> </observationRange> </referenceRange> </observation> </component> <component> <observation moodCode="EVN" classCode= "OBS"> <templateId root="05.02.840.1.483365.10.2022.4.2" /> < id nullFlavor="NA" /> <code codeSystem="local" code="BUN" displayName= "BUN" /> <statusCode code="completed" /> <effectiveTime value= "" /> <value unit="mg/dL" xsi:type="PQ" value="11" /> <referenceRange> <observationRange> <text>4-20</ text> </observationRange> </referenceRange> </ observation> </component> <component> <observation moodCode= "EVN" classCode="OBS"> <templateId root="05.02.840.1.949279...22.4.2 " /> <id nullFlavor="NA" /> <code codeSystem="local" code="CA " displayName="Calcium" /> <statusCode code="completed" /> < effectiveTime value="213930648694" /> <value unit="mg/dL" xsi:type="PQ " value="9.2" /> <referenceRange> <observationRange> <text>8.6-10.0</text> </observationRange> </ referenceRange> </observation> </component> <component> <observation moodCode="EVN" classCode="OBS"> <templateId root= "05.02.840.1.418222.10.20.22.4.2" /> <id nullFlavor="NA" /> < code codeSystem="local" code="CL" displayName="Chloride" /> < statusCode code="completed" /> <effectiveTime value="" /> <value unit="mEq/L" xsi:type="PQ" value="100" /> < referenceRange> <observationRange> <text>99-109</text> </observationRange> </referenceRange> </observation> </component> <component> <observation moodCode="EVN" classCode ="OBS"> <templateId root="216.840.1.794715.01.03.22.4.2" /> < id nullFlavor="NA" /> <code codeSystem="local" code="CO2" displayName= "CO2" /> <statusCode code="completed" /> <effectiveTime value= "" /> <value unit="mEq/L" xsi:type="PQ" value="31" /> <referenceRange> <observationRange> <text>22-32</ text> </observationRange> </referenceRange> </ observation> </component> <component> <observation moodCode= "EVN" classCode="OBS"> <templateId root="2.16.840.1.857124....4.2 " /> <id nullFlavor="NA" /> <code codeSystem="local" code= "CREAT" displayName="Creatinine" /> <statusCode code="completed" /> <effectiveTime value="" /> <value unit="mg/dL" xsi: type="PQ" value="0.40" /> <interpretationCode codeSystem="local" code= "*" /> <referenceRange> <observationRange> < text>0.44-1.03</text> </observationRange> </referenceRange> </observation> </component> <component> <observation moodCode="EVN" classCode="OBS"> <templateId root= "216.840.1.580065.10.20.22.4.2" /> <id nullFlavor="NA" /> < code codeSystem="local" code="GLU" displayName="Glucose" /> < statusCode code="completed" /> <effectiveTime value="610567345334" /> <value unit="mg/dL" xsi:type="PQ" value="91" /> < referenceRange> <observationRange> <text>70-100</text> </observationRange> </referenceRange> </observation> </component> <component> <observation moodCode="EVN" classCode ="OBS"> <templateId root="16.840.1.257502.10..22.4.2" /> < id nullFlavor="NA" /> <code codeSystem="local" code="K" displayName= "Potassium" /> <statusCode code="completed" /> <effectiveTime value="185465818764" /> <value unit="mEq/L" xsi:type="PQ" value="4.2" / > <referenceRange> <observationRange> <text>3.6 -5.1</text> </observationRange> </referenceRange> </ observation> </component> <component> <observation moodCode= "EVN" classCode="OBS"> <templateId root="16.840.1.149833.10.20.22.4.2 " /> <id nullFlavor="NA" /> <code codeSystem="local" code="NA " displayName="Sodium" /> <statusCode code="completed" /> < effectiveTime value="126443352236" /> <value unit="mEq/L" xsi:type="PQ " value="138" /> <referenceRange> <observationRange> <text>136-144</text> </observationRange> </ referenceRange> </observation> </component> </organizer> </entry > <entry> <organizer moodCode="EVN" classCode="BATTERY"> <templateId root="05.02.840.1.314056.10.4.1" /> <id nullFlavor="NA" /> <code codeSystem="local" code="GFR" displayName="eGFR" /> <statusCode code= "completed" /> <component> <observation moodCode="EVN" classCode= "OBS"> <templateId root="840.1.067609.01.03.224.2" /> < id nullFlavor="NA" /> <code codeSystem="local" code="GFR" displayName= "eGFR" /> <statusCode code="completed" /> <effectiveTime value ="625076064346" /> <value unit="NA" xsi:type="PQ" value=">60" /> <referenceRange> <observationRange> <text>>60< /text> </observationRange> </referenceRange> </ observation> </component> </organizer> </entry> <entry> <organizer moodCode="EVN" classCode="BATTERY"> <templateId root= "840.1.395095.01.03.22.4.1" /> <id nullFlavor="NA" /> <code codeSystem="local" code="88194-1" displayName="Urine drug screening test" /> <statusCode code="completed" /> <component> <observation moodCode ="EVN" classCode="OBS"> <templateId root= "05.02.840.1.124608.01.03.22.4.2" /> <id nullFlavor="NA" /> < code codeSystem="local" code="10429-7" displayName="Urine phencyclidine detection by screening method" /> <statusCode code="completed" /> <effectiveTime value="586958668738" /> <value unit="" xsi:type="PQ " value="NEGATIVE" /> <referenceRange> <observationRange> <text>NEGATIVE</text> </observationRange> </ referenceRange> </observation> </component> <component> <observation moodCode="EVN" classCode="OBS"> <templateId root= "216.840.1.775003.10..22.4.2" /> <id nullFlavor="NA" /> < code codeSystem="local" code="03642-6" displayName="Urine benzodiazepines detection by screening method" /> <statusCode code="completed" /> <effectiveTime value="856013626380" /> <value unit="" xsi:type="PQ " value="NEGATIVE" /> <referenceRange> <observationRange> <text>NEGATIVE</text> </observationRange> </ referenceRange> </observation> </component> <component> <observation moodCode="EVN" classCode="OBS"> <templateId root= "16.840.1.929092.10...4.2" /> <id nullFlavor="NA" /> < code codeSystem="local" code="3397-7" displayName="Urine cocaine detection" /> <statusCode code="completed" /> <effectiveTime value= "246733999155" /> <value unit="" xsi:type="PQ" value="NEGATIVE" /> <referenceRange> <observationRange> <text>NEGATIVE </text> </observationRange> </referenceRange> </ observation> </component> <component> <observation moodCode= "EVN" classCode="OBS"> <templateId root="216.840.1.449202.10.20.22.4.2 " /> <id nullFlavor="NA" /> <code codeSystem="local" code= "09839-2" displayName="Urine amphetamines detection by screening method" /> <statusCode code="completed" /> <effectiveTime value= "645979590080" /> <value unit="" xsi:type="PQ" value="NEGATIVE" /> <referenceRange> <observationRange> <text>NEGATIVE </text> </observationRange> </referenceRange> </ observation> </component> <component> <observation moodCode= "EVN" classCode="OBS"> <templateId root="216.840.1.250304.10.20.22.4.2 " /> <id nullFlavor="NA" /> <code codeSystem="local" code= "25524-4" displayName="Urine methamphetamine detection by screening method" /> <statusCode code="completed" /> <effectiveTime value= "102118992401" /> <value unit="" xsi:type="PQ" value="NEGATIVE" /> <referenceRange> <observationRange> <text>NEGATIVE </text> </observationRange> </referenceRange> </ observation> </component> <component> <observation moodCode= "EVN" classCode="OBS"> <templateId root="216.840.1.081454.10.20.22.4.2 " /> <id nullFlavor="NA" /> <code codeSystem="local" code= "27481-2" displayName="Urine cannabinoids detection by screening method" /> <statusCode code="completed" /> <effectiveTime value= "587004830075" /> <value unit="" xsi:type="PQ" value="NEGATIVE" /> <referenceRange> <observationRange> <text>NEGATIVE </text> </observationRange> </referenceRange> </ observation> </component> <component> <observation moodCode= "EVN" classCode="OBS"> <templateId root="840.1.414092.10..22.4.2 " /> <id nullFlavor="NA" /> <code codeSystem="local" code= "09928-1" displayName="Urine opiates detection by screening method" /> <statusCode code="completed" /> <effectiveTime value="967401240950" /> <value unit="" xsi:type="PQ" value="NEGATIVE" /> < referenceRange> <observationRange> <text>NEGATIVE</text > </observationRange> </referenceRange> </observation > </component> <component> <observation moodCode="EVN" classCode="OBS"> <templateId root="216.840.1.424626.10..4.2" /> <id nullFlavor="NA" /> <code codeSystem="local" code="3377-9" displayName="Urine barbiturates detection" /> <statusCode code= "completed" /> <effectiveTime value="548783306573" /> <value unit="" xsi:type="PQ" value="NEGATIVE" /> <referenceRange> < observationRange> <text>NEGATIVE</text> </ observationRange> </referenceRange> </observation> </ component> <component> <observation moodCode="EVN" classCode="OBS"> <templateId root="216.840.1.191396.10..22.4.2" /> <id nullFlavor="NA" /> <code codeSystem="local" code="19967-0" displayName= "Screening urine tricyclic antidepressants detection" /> <statusCode code="completed" /> <effectiveTime value="599697088382" /> < value unit="" xsi:type="PQ" value="POSITIVE" /> <interpretationCode codeSystem="local" code="*" /> <referenceRange> < observationRange> <text>NEGATIVE</text> </ observationRange> </referenceRange> </observation> </ component> <component> <observation moodCode="EVN" classCode="OBS"> <templateId root="216.840.1.340883.10.22.4.2" /> <id nullFlavor="NA" /> <code codeSystem="local" code="28804-6" displayName= "Urine methadone detection by screening method" /> <statusCode code= "completed" /> <effectiveTime value="548204998031" /> <value unit="" xsi:type="PQ" value="NEGATIVE" /> <referenceRange> < observationRange> <text>NEGATIVE</text> </ observationRange> </referenceRange> </observation> </ component> <component> <observation moodCode="EVN" classCode="OBS"> <templateId root="2.840.1.331124.1022.4.2" /> <id nullFlavor="NA" /> <code codeSystem="local" code="92036-9" displayName= "Urine oxycodone detection" /> <statusCode code="completed" /> <effectiveTime value="820717442908" /> <value unit="" xsi:type="PQ" value="NEGATIVE" /> <referenceRange> <observationRange> <text>NEGATIVE</text> </observationRange> </ referenceRange> </observation> </component> <component> <observation moodCode="EVN" classCode="OBS"> <templateId root= "216.840.1.607062.10.2022.4.2" /> <id nullFlavor="NA" /> < code codeSystem="local" code="04248-4" displayName="Urine propoxyphene detection " /> <statusCode code="completed" /> <effectiveTime value= "031231700443" /> <value unit="" xsi:type="PQ" value="NEGATIVE" /> <referenceRange> <observationRange> <text>NEGATIVE </text> </observationRange> </referenceRange> </ observation> </component> </organizer> </entry> <entry> <organizer moodCode="EVN" classCode="BATTERY"> <templateId root= "216.840.1.654323.10.20.22.4.1" /> <id nullFlavor="NA" /> <code codeSystem="local" code="43856-9" displayName="Complete blood count (CBC) with automated white blood cell (WBC) differential" /> <statusCode code= "completed" /> <component> <observation moodCode="EVN" classCode= "OBS"> <templateId root="216.840.1.155539.10.20.22.4.2" /> < id nullFlavor="NA" /> <code codeSystem="local" code="6690-2" displayName="Blood leukocytes automated count (number/volume)" /> < statusCode code="completed" /> <effectiveTime value="672146534199" /> <value unit="10*3/uL" xsi:type="PQ" value="4.3" /> < referenceRange> <observationRange> <text>4.3-11.0</text > </observationRange> </referenceRange> </observation > </component> <component> <observation moodCode="EVN" classCode="OBS"> <templateId root="16.840.1.792501.10.20.22.4.2" /> <id nullFlavor="NA" /> <code codeSystem="local" code="789-8" displayName="Blood erythrocytes automated count (number/volume)" /> < statusCode code="completed" /> <effectiveTime value="023998227742" /> <value unit="10*6/uL" xsi:type="PQ" value="4.53" /> < referenceRange> <observationRange> <text>4.35-5.85</text > </observationRange> </referenceRange> </observation > </component> <component> <observation moodCode="EVN" classCode="OBS"> <templateId root="2.16.840.1.121237.10.20.22.4.2" /> <id nullFlavor="NA" /> <code codeSystem="local" code="14815-4 " displayName="Venous blood hemoglobin measurement (mass/volume)" /> < statusCode code="completed" /> <effectiveTime value="814425691051" /> <value unit="g/dL" xsi:type="PQ" value="11.7" /> < referenceRange> <observationRange> <text>11.5-16.0</text > </observationRange> </referenceRange> </observation > </component> <component> <observation moodCode="EVN" classCode="OBS"> <templateId root="216.840.1.033054.10.20.22.4.2" /> <id nullFlavor="NA" /> <code codeSystem="local" code="90500-4 " displayName="Blood hematocrit (volume fraction)" /> <statusCode code= "completed" /> <effectiveTime value="772186764021" /> <value unit="%" xsi:type="PQ" value="36" /> <referenceRange> < observationRange> <text>35-52</text> </observationRange > </referenceRange> </observation> </component> < component> <observation moodCode="EVN" classCode="OBS"> < templateId root="2.16.840.1.707455.10.20.22.4.2" /> <id nullFlavor="NA " /> <code codeSystem="local" code="787-2" displayName="Automated erythrocyte mean corpuscular volume" /> <statusCode code="completed" / > <effectiveTime value="853631498351" /> <value unit="[foz_us] " xsi:type="PQ" value="80" /> <referenceRange> < observationRange> <text>80-99</text> </observationRange > </referenceRange> </observation> </component> < component> <observation moodCode="EVN" classCode="OBS"> < templateId root="2.16.840.1.797762.10.20.22.4.2" /> <id nullFlavor="NA " /> <code codeSystem="local" code="785-6" displayName="Automated erythrocyte mean corpuscular hemoglobin (mass per erythrocyte)" /> < statusCode code="completed" /> <effectiveTime value="308611520361" /> <value unit="pg" xsi:type="PQ" value="26" /> <referenceRange> <observationRange> <text>25-34</text> </ observationRange> </referenceRange> </observation> </ component> <component> <observation moodCode="EVN" classCode="OBS"> <templateId root="2.16.840.1.734780.10.20.22.4.2" /> <id nullFlavor="NA" /> <code codeSystem="local" code="786-4" displayName= "Automated erythrocyte mean corpuscular hemoglobin concentration measurement ( mass/volume)" /> <statusCode code="completed" /> < effectiveTime value="151852923088" /> <value unit="g/dL" xsi:type="PQ" value="32" /> <referenceRange> <observationRange> <text>32-36</text> </observationRange> </referenceRange > </observation> </component> <component> <observation moodCode="EVN" classCode="OBS"> <templateId root= "2.16.840.1.611350.10.20.22.4.2" /> <id nullFlavor="NA" /> < code codeSystem="local" code="788-0" displayName="Automated erythrocyte distribution width ratio" /> <statusCode code="completed" /> < effectiveTime value="942808390612" /> <value unit="%" xsi:type="PQ " value="15.7" /> <interpretationCode codeSystem="local" code="" /> <referenceRange> <observationRange> <text>10.0- 14.5</text> </observationRange> </referenceRange> </ observation> </component> <component> <observation moodCode= "EVN" classCode="OBS"> <templateId root="2.16.840.1.916640.10..22.4.2 " /> <id nullFlavor="NA" /> <code codeSystem="local" code="777 -3" displayName="Automated blood platelet count (count/volume)" /> < statusCode code="completed" /> <effectiveTime value="563260839969" /> <value unit="10*3/uL" xsi:type="PQ" value="247" /> < referenceRange> <observationRange> <text>130-400</text> </observationRange> </referenceRange> </observation > </component> <component> <observation moodCode="EVN" classCode="OBS"> <templateId root="2.16.840.1.268337.10..22.4.2" /> <id nullFlavor="NA" /> <code codeSystem="local" code="06964-5 " displayName="Automated blood platelet mean volume measurement" /> < statusCode code="completed" /> <effectiveTime value="661609922081" /> <value unit="[[facility]]" xsi:type="PQ" value="10.6" /> < interpretationCode codeSystem="local" code="" /> <referenceRange> <observationRange> <text>7.4-10.4</text> </ observationRange> </referenceRange> </observation> </ component> <component> <observation moodCode="EVN" classCode="OBS"> <templateId root="2.16.840.1.615663.10..22.4.2" /> <id nullFlavor="NA" /> <code codeSystem="local" code="770-8" displayName= "Automated blood neutrophils/100 leukocytes" /> <statusCode code= "completed" /> <effectiveTime value="750885429654" /> <value unit="%" xsi:type="PQ" value="66" /> <referenceRange> < observationRange> <text>42-75</text> </observationRange > </referenceRange> </observation> </component> < component> <observation moodCode="EVN" classCode="OBS"> < templateId root="216.840.1.707903.10..22.4.2" /> <id nullFlavor="NA " /> <code codeSystem="local" code="736-9" displayName="Automated blood lymphocytes/100 leukocytes" /> <statusCode code="completed" /> <effectiveTime value="801055561738" /> <value unit="%" xsi: type="PQ" value="20" /> <referenceRange> <observationRange> <text>12-44</text> </observationRange> </ referenceRange> </observation> </component> <component> <observation moodCode="EVN" classCode="OBS"> <templateId root= "216.840.1.932802.20.22.4.2" /> <id nullFlavor="NA" /> < code codeSystem="local" code="53504-5" displayName="Blood monocytes/100 leukocytes" /> <statusCode code="completed" /> <effectiveTime value="240485772371" /> <value unit="%" xsi:type="PQ" value="12" / > <referenceRange> <observationRange> <text>0- 12</text> </observationRange> </referenceRange> </ observation> </component> <component> <observation moodCode= "EVN" classCode="OBS"> <templateId root="2.16.840.1.422907.10..4.2 " /> <id nullFlavor="NA" /> <code codeSystem="local" code="713 -8" displayName="Automated blood eosinophils/100 leukocytes" /> < statusCode code="completed" /> <effectiveTime value="943533680224" /> <value unit="%" xsi:type="PQ" value="2" /> <referenceRange > <observationRange> <text>0-10</text> </ observationRange> </referenceRange> </observation> </ component> <component> <observation moodCode="EVN" classCode="OBS"> <templateId root="2.16.840.1.756356.10..22.4.2" /> <id nullFlavor="NA" /> <code codeSystem="local" code="706-2" displayName= "Automated blood basophils/100 leukocytes" /> <statusCode code= "completed" /> <effectiveTime value="698845085947" /> <value unit="%" xsi:type="PQ" value="1" /> <referenceRange> < observationRange> <text>0-10</text> </observationRange> </referenceRange> </observation> </component> < component> <observation moodCode="EVN" classCode="OBS"> < templateId root="2.16.840.1.667228.10.20.22.4.2" /> <id nullFlavor="NA " /> <code codeSystem="local" code="751-8" displayName="Blood neutrophils automated count (number/volume)" /> <statusCode code= "completed" /> <effectiveTime value="870890721314" /> <value unit="10*3" xsi:type="PQ" value="2.8" /> <referenceRange> < observationRange> <text>1.8-7.8</text> </ observationRange> </referenceRange> </observation> </ component> <component> <observation moodCode="EVN" classCode="OBS"> <templateId root="216.840.1.374772.22.4.2" /> <id nullFlavor="NA" /> <code codeSystem="local" code="731-0" displayName= "Blood lymphocytes automated count (number/volume)" /> <statusCode code ="completed" /> <effectiveTime value="140754411347" /> <value unit="10*3" xsi:type="PQ" value="0.9" /> <interpretationCode codeSystem ="local" code="" /> <referenceRange> <observationRange> <text>1.0-4.0</text> </observationRange> </ referenceRange> </observation> </component> <component> <observation moodCode="EVN" classCode="OBS"> <templateId root= "2.16.840.1.107496.10.20.22.4.2" /> <id nullFlavor="NA" /> < code codeSystem="local" code="742-7" displayName="Blood monocytes automated count (number/volume)" /> <statusCode code="completed" /> < effectiveTime value="177812805244" /> <value unit="10*3" xsi:type="PQ" value="0.5" /> <referenceRange> <observationRange> <text>0.0-1.0</text> </observationRange> </ referenceRange> </observation> </component> <component> <observation moodCode="EVN" classCode="OBS"> <templateId root= "2.16.840.1.908384.10.20.22.4.2" /> <id nullFlavor="NA" /> < code codeSystem="local" code="711-2" displayName="Automated eosinophil count" / > <statusCode code="completed" /> <effectiveTime value= "795344674335" /> <value unit="10*3/uL" xsi:type="PQ" value="0.1" /> <referenceRange> <observationRange> <text>0.0- 0.3</text> </observationRange> </referenceRange> </ observation> </component> <component> <observation moodCode= "EVN" classCode="OBS"> <templateId root="2.16.840.1.899224.10.20.22.4.2 " /> <id nullFlavor="NA" /> <code codeSystem="local" code="704 -7" displayName="Automated blood basophil count (count/volume)" /> < statusCode code="completed" /> <effectiveTime value="202897950104" /> <value unit="10*3/uL" xsi:type="PQ" value="0.0" /> < referenceRange> <observationRange> <text>0.0-0.1</text> </observationRange> </referenceRange> </observation > </component> </organizer> </entry> <entry> <organizer moodCode= "EVN" classCode="BATTERY"> <templateId root="2.16.840.1.627793.10.20.22.4.1 " /> <id nullFlavor="NA" /> <code codeSystem="local" code="39617-0" displayName="PT panel in platelet poor plasma by coagulation assay" /> < statusCode code="completed" /> <component> <observation moodCode= "EVN" classCode="OBS"> <templateId root="2.16.840.1.337865.10.20.22.4.2 " /> <id nullFlavor="NA" /> <code codeSystem="local" code= "5902-2" displayName="Prothrombin time (PT) in platelet poor plasma by coagulation assay" /> <statusCode code="completed" /> < effectiveTime value="392375765338" /> <value unit="s" xsi:type="PQ" value="12.8" /> <referenceRange> <observationRange> <text>12.2-14.7</text> </observationRange> </ referenceRange> </observation> </component> <component> <observation moodCode="EVN" classCode="OBS"> <templateId root= "2.16.840.1.507966.10.20.22.4.2" /> <id nullFlavor="NA" /> < code codeSystem="local" code="91851-8" displayName="INR in platelet poor plasma or blood by coagulation assay" /> <statusCode code="completed" /> <effectiveTime value="804611261963" /> <value unit="" xsi:type="PQ " value="1.0" /> <referenceRange> <observationRange> <text>0.8-1.4</text> </observationRange> </ referenceRange> </observation> </component> </organizer> </entry > <entry> <organizer moodCode="EVN" classCode="BATTERY"> <templateId root="16.840.1.839572.10..22.4.1" /> <id nullFlavor="NA" /> <code codeSystem="local" code="48997-1" displayName="Comprehensive metabolic panel" / > <statusCode code="completed" /> <component> <observation moodCode="EVN" classCode="OBS"> <templateId root= "05.02.840.1.491374.10..22.4.2" /> <id nullFlavor="NA" /> < code codeSystem="local" code="2951-2" displayName="Serum or plasma sodium measurement (moles/volume)" /> <statusCode code="completed" /> <effectiveTime value="158248007804" /> <value unit="mmol/L" xsi:type= "PQ" value="135" /> <referenceRange> <observationRange> <text>135-145</text> </observationRange> </ referenceRange> </observation> </component> <component> <observation moodCode="EVN" classCode="OBS"> <templateId root= "05.02.840.1.146328.10..22.4.2" /> <id nullFlavor="NA" /> < code codeSystem="local" code="2823-3" displayName="Serum or plasma potassium measurement (moles/volume)" /> <statusCode code="completed" /> <effectiveTime value="576603287506" /> <value unit="mmol/L" xsi:type= "PQ" value="4.1" /> <referenceRange> <observationRange> <text>3.6-5.0</text> </observationRange> </ referenceRange> </observation> </component> <component> <observation moodCode="EVN" classCode="OBS"> <templateId root= "05.02.840.1.452246.10.20.22.4.2" /> <id nullFlavor="NA" /> < code codeSystem="local" code="" displayName="Serum or plasma chloride measurement (moles/volume)" /> <statusCode code="completed" /> <effectiveTime value="740294094271" /> <value unit="mmol/L" xsi:type= "PQ" value="104" /> <referenceRange> <observationRange> <text>98-107</text> </observationRange> </ referenceRange> </observation> </component> <component> <observation moodCode="EVN" classCode="OBS"> <templateId root= "216.840.1.000953.10..22.4.2" /> <id nullFlavor="NA" /> < code codeSystem="local" code="2027-11" displayName="Carbon dioxide" /> < statusCode code="completed" /> <effectiveTime value="230292001415" /> <value unit="mmol/L" xsi:type="PQ" value="23" /> < referenceRange> <observationRange> <text>21-32</text> </observationRange> </referenceRange> </observation> </component> <component> <observation moodCode="EVN" classCode= "OBS"> <templateId root="16.840.1.011290.10..22.4.2" /> < id nullFlavor="NA" /> <code codeSystem="local" code="49707-4" displayName="Serum or plasma anion gap determination (moles/volume)" /> <statusCode code="completed" /> <effectiveTime value="955058909972" / > <value unit="mmol/L" xsi:type="PQ" value="8" /> < referenceRange> <observationRange> <text>5-14</text> </observationRange> </referenceRange> </observation> </component> <component> <observation moodCode="EVN" classCode= "OBS"> <templateId root="2.16.840.1.319947.10.20.22.4.2" /> < id nullFlavor="NA" /> <code codeSystem="local" code="3094-0" displayName="Serum or plasma urea nitrogen measurement (mass/volume)" /> <statusCode code="completed" /> <effectiveTime value="972135128166" /> <value unit="mg/dL" xsi:type="PQ" value="9" /> < referenceRange> <observationRange> <text>7-18</text> </observationRange> </referenceRange> </observation> </component> <component> <observation moodCode="EVN" classCode= "OBS"> <templateId root="216.840.1.252463.10..4.2" /> < id nullFlavor="NA" /> <code codeSystem="local" code="2160-0" displayName="Serum or plasma creatinine measurement (mass/volume)" /> < statusCode code="completed" /> <effectiveTime value="856974239063" /> <value unit="mg/dL" xsi:type="PQ" value="0.63" /> < referenceRange> <observationRange> <text>0.60-1.30</text > </observationRange> </referenceRange> </observation > </component> <component> <observation moodCode="EVN" classCode="OBS"> <templateId root="2.16.840.1.440670.10..22.4.2" /> <id nullFlavor="NA" /> <code codeSystem="local" code="3097-3" displayName="Serum or plasma urea nitrogen/creatinine mass ratio" /> < statusCode code="completed" /> <effectiveTime value="307269747218" /> <value unit="" xsi:type="PQ" value="14" /> <referenceRange> <observationRange> <text>NRG</text> </ observationRange> </referenceRange> </observation> </ component> <component> <observation moodCode="EVN" classCode="OBS"> <templateId root="2.16.840.1.471545.10..22.4.2" /> <id nullFlavor="NA" /> <code codeSystem="local" code="55626-2" displayName= "Serum or plasma creatinine measurement with calculation of estimated glomerular filtration rate" /> <statusCode code="completed" /> <effectiveTime value="429074054059" /> <value unit="" xsi:type="PQ" value=">" /> <referenceRange> <observationRange> <text>NRG</text> </observationRange> </referenceRange > </observation> </component> <component> <observation moodCode="EVN" classCode="OBS"> <templateId root= "2.16.840.1.744938.10..22.4.2" /> <id nullFlavor="NA" /> < code codeSystem="local" code="2345-7" displayName="Serum or plasma glucose measurement (mass/volume)" /> <statusCode code="completed" /> <effectiveTime value="560770611997" /> <value unit="mg/dL" xsi:type="PQ " value="94" /> <referenceRange> <observationRange> <text>70-105</text> </observationRange> </ referenceRange> </observation> </component> <component> <observation moodCode="EVN" classCode="OBS"> <templateId root= "2.16.840.1.321132.01.03.22.4.2" /> <id nullFlavor="NA" /> < code codeSystem="local" code="50267-4" displayName="Serum or plasma calcium measurement (mass/volume)" /> <statusCode code="completed" /> <effectiveTime value="828973626045" /> <value unit="mg/dL" xsi:type="PQ " value="8.5" /> <referenceRange> <observationRange> <text>8.5-10.1</text> </observationRange> </ referenceRange> </observation> </component> <component> <observation moodCode="EVN" classCode="OBS"> <templateId root= "2.16.840.1.350681.01.03.22.4.2" /> <id nullFlavor="NA" /> < code codeSystem="local" code="1974-04" displayName="Serum or plasma total bilirubin measurement (mass/volume)" /> <statusCode code="completed" / > <effectiveTime value="035626980071" /> <value unit="mg/dL" xsi:type="PQ" value="1.2" /> <interpretationCode codeSystem="local" code="" /> <referenceRange> <observationRange> <text>0.1-1.0</text> </observationRange> </referenceRange > </observation> </component> <component> <observation moodCode="EVN" classCode="OBS"> <templateId root= "2.16.840.1.671322.10.4.2" /> <id nullFlavor="NA" /> < code codeSystem="local" code="6768-6" displayName="Serum or plasma alkaline phosphatase measurement (enzymatic activity/volume)" /> <statusCode code="completed" /> <effectiveTime value="520664958054" /> < value unit="U/L" xsi:type="PQ" value="99" /> <referenceRange> <observationRange> <text>40-136</text> </ observationRange> </referenceRange> </observation> </ component> <component> <observation moodCode="EVN" classCode="OBS"> <templateId root="2.16.840.1.810597.10.20.22.4.2" /> <id nullFlavor="NA" /> <code codeSystem="local" code="192" displayName= "Serum or plasma aspartate aminotransferase measurement (enzymatic activity/ volume)" /> <statusCode code="completed" /> <effectiveTime value="602939876320" /> <value unit="U/L" xsi:type="PQ" value="23" /> <referenceRange> <observationRange> <text>5-34< /text> </observationRange> </referenceRange> </ observation> </component> <component> <observation moodCode= "EVN" classCode="OBS"> <templateId root="216.840.1.122360.10..22.4.2 " /> <id nullFlavor="NA" /> <code codeSystem="local" code= "17426" displayName="Serum or plasma alanine aminotransferase measurement ( enzymatic activity/volume)" /> <statusCode code="completed" /> <effectiveTime value="756830725856" /> <value unit="U/L" xsi:type="PQ " value="17" /> <referenceRange> <observationRange> <text>0-55</text> </observationRange> </referenceRange > </observation> </component> <component> <observation moodCode="EVN" classCode="OBS"> <templateId root= "2.16.840.1.320359.10.20.22.4.2" /> <id nullFlavor="NA" /> < code codeSystem="local" code="2885-2" displayName="Serum or plasma protein measurement (mass/volume)" /> <statusCode code="completed" /> <effectiveTime value="643044629108" /> <value unit="g/dL" xsi:type="PQ " value="6.5" /> <referenceRange> <observationRange> <text>6.4-8.2</text> </observationRange> </ referenceRange> </observation> </component> <component> <observation moodCode="EVN" classCode="OBS"> <templateId root= "216.840.1.443152.10.20.22.4.2" /> <id nullFlavor="NA" /> < code codeSystem="local" code="1751-7" displayName="Serum or plasma albumin measurement (mass/volume)" /> <statusCode code="completed" /> <effectiveTime value="933200376652" /> <value unit="g/dL" xsi:type="PQ " value="3.7" /> <referenceRange> <observationRange> <text>3.2-4.5</text> </observationRange> </ referenceRange> </observation> </component> </organizer> </entry > <entry> <organizer moodCode="EVN" classCode="BATTERY"> <templateId root="16.840.1.228338.10..22.4.1" /> <id nullFlavor="NA" /> <code codeSystem="local" code="85410-9" displayName="Serum or plasma troponin i.cardiac measurement (mass/volume)" /> <statusCode code="completed" /> <component> <observation moodCode="EVN" classCode="OBS"> < templateId root="216.840.1.319098.10.20.22.4.2" /> <id nullFlavor="NA " /> <code codeSystem="local" code="53202-6" displayName="Serum or plasma troponin i.cardiac measurement (mass/volume)" /> <statusCode code="completed" /> <effectiveTime value="878300626288" /> < value unit="ng/mL" xsi:type="PQ" value="<" /> <referenceRange> <observationRange> <text><0.30</text> </ observationRange> </referenceRange> </observation> </ component> </organizer> </entry> <entry> <organizer moodCode="EVN" classCode="BATTERY"> <templateId root="216.840.1.860667.10..22.4.1" /> <id nullFlavor="NA" /> <code codeSystem="local" code="71843-9" displayName="Complete urinalysis with reflex to culture" /> <statusCode code="completed" /> <component> <observation moodCode="EVN" classCode="OBS"> <templateId root="216.840.1.807365.10..22.4.2" /> <id nullFlavor="NA" /> <code codeSystem="local" code="5778-6" displayName="Urine color determination" /> <statusCode code="completed " /> <effectiveTime value="926254953863" /> <value unit="" xsi :type="PQ" value="YELLOW" /> <referenceRange> < observationRange> <text>NRG</text> </observationRange> </referenceRange> </observation> </component> < component> <observation moodCode="EVN" classCode="OBS"> < templateId root="216.840.1.429771.10..22.4.2" /> <id nullFlavor="NA " /> <code codeSystem="local" code="36785-4" displayName="Urine clarity determination" /> <statusCode code="completed" /> < effectiveTime value="" /> <value unit="" xsi:type="PQ" value="CLEAR" /> <referenceRange> <observationRange> <text>NRG</text> </observationRange> </referenceRange > </observation> </component> <component> <observation moodCode="EVN" classCode="OBS"> <templateId root= "2.16.840.1.053466.10..4.2" /> <id nullFlavor="NA" /> < code codeSystem="local" code="5803-2" displayName="Urine pH measurement by test strip" /> <statusCode code="completed" /> <effectiveTime value ="" /> <value unit="" xsi:type="PQ" value="5" /> < referenceRange> <observationRange> <text>5-9</text> </observationRange> </referenceRange> </observation> </component> <component> <observation moodCode="EVN" classCode= "OBS"> <templateId root="2.16.840.1.598190.10..4.2" /> < id nullFlavor="NA" /> <code codeSystem="local" code="5811-5" displayName="Specific gravity of urine by test strip" /> <statusCode code="completed" /> <effectiveTime value="480998870241" /> < value unit="" xsi:type="PQ" value="1.030" /> <interpretationCode codeSystem="local" code="*" /> <referenceRange> < observationRange> <text>1.016-1.022</text> </ observationRange> </referenceRange> </observation> </ component> <component> <observation moodCode="EVN" classCode="OBS"> <templateId root="2.16.840.1.236439.10.22.4.2" /> <id nullFlavor="NA" /> <code codeSystem="local" code="96357-2" displayName= "Urine protein assay by test strip, semi-quantitative" /> <statusCode code="completed" /> <effectiveTime value="" /> < value unit="" xsi:type="PQ" value="2+" /> <interpretationCode codeSystem="local" code="*" /> <referenceRange> < observationRange> <text>NEGATIVE</text> </ observationRange> </referenceRange> </observation> </ component> <component> <observation moodCode="EVN" classCode="OBS"> <templateId root="05.02.840.1.665564.01.03.22.4.2" /> <id nullFlavor="NA" /> <code codeSystem="local" code="40901-8" displayName= "Urine glucose detection by automated test strip" /> <statusCode code= "completed" /> <effectiveTime value="" /> <value unit="" xsi:type="PQ" value="NEGATIVE" /> <referenceRange> < observationRange> <text>NEGATIVE</text> </ observationRange> </referenceRange> </observation> </ component> <component> <observation moodCode="EVN" classCode="OBS"> <templateId root="05.02.840.1.622743.10.4.2" /> <id nullFlavor="NA" /> <code codeSystem="local" code="38502-3" displayName= "Erythrocytes detection in urine sediment by light microscopy" /> < statusCode code="completed" /> <effectiveTime value="" /> <value unit="" xsi:type="PQ" value="5+" /> < interpretationCode codeSystem="local" code="*" /> <referenceRange> <observationRange> <text>NEGATIVE</text> </ observationRange> </referenceRange> </observation> </ component> <component> <observation moodCode="EVN" classCode="OBS"> <templateId root="216.840.1.697753.10.22.4.2" /> <id nullFlavor="NA" /> <code codeSystem="local" code="23419-0" displayName= "Urine ketones detection by automated test strip" /> <statusCode code= "completed" /> <effectiveTime value="[id number]" /> <value unit="" xsi:type="PQ" value="NEGATIVE" /> <referenceRange> < observationRange> <text>NEGATIVE</text> </ observationRange> </referenceRange> </observation> </ component> <component> <observation moodCode="EVN" classCode="OBS"> <templateId root="05.02.840.1.400621.10..4.2" /> <id nullFlavor="NA" /> <code codeSystem="local" code="5802-4" displayName= "Urine nitrite detection by test strip" /> <statusCode code="completed " /> <effectiveTime value="694230830978" /> <value unit="" xsi :type="PQ" value="NEGATIVE" /> <referenceRange> < observationRange> <text>NEGATIVE</text> </ observationRange> </referenceRange> </observation> </ component> <component> <observation moodCode="EVN" classCode="OBS"> <templateId root="05.02.840.1.515512.10..22.4.2" /> <id nullFlavor="NA" /> <code codeSystem="local" code="5770-3" displayName= "Urine total bilirubin detection by test strip" /> <statusCode code= "completed" /> <effectiveTime value="" /> <value unit="" xsi:type="PQ" value="NEGATIVE" /> <referenceRange> < observationRange> <text>NEGATIVE</text> </ observationRange> </referenceRange> </observation> </ component> <component> <observation moodCode="EVN" classCode="OBS"> <templateId root="2.16.840.1.992418.10..22.4.2" /> <id nullFlavor="NA" /> <code codeSystem="local" code="72878-1" displayName= "Urine urobilinogen measurement by automated test strip (mass/volume)" /> <statusCode code="completed" /> <effectiveTime value=" " /> <value unit="mg/dL" xsi:type="PQ" value="1" /> < referenceRange> <observationRange> <text>NORMAL</text> </observationRange> </referenceRange> </observation> </component> <component> <observation moodCode="EVN" classCode ="OBS"> <templateId root="216.840.1.382345.10..4.2" /> < id nullFlavor="NA" /> <code codeSystem="local" code="5799-2" displayName="Urine leukocyte esterase detection by dipstick" /> < statusCode code="completed" /> <effectiveTime value="" /> <value unit="" xsi:type="PQ" value="1+" /> < interpretationCode codeSystem="local" code="*" /> <referenceRange> <observationRange> <text>NEGATIVE</text> </ observationRange> </referenceRange> </observation> </ component> <component> <observation moodCode="EVN" classCode="OBS"> <templateId root="216.840.1.558728.10...4.2" /> <id nullFlavor="NA" /> <code codeSystem="local" code="89640-5" displayName= "Automated urine sediment erythrocyte count by microscopy (number/high power field)" /> <statusCode code="completed" /> <effectiveTime value="" /> <value unit="" xsi:type="PQ" value="TNTC" /> <interpretationCode codeSystem="local" code="*" /> < referenceRange> <observationRange> <text>NRG</text> </observationRange> </referenceRange> </observation> </component> <component> <observation moodCode="EVN" classCode= "OBS"> <templateId root="2.16.840.1.735023.10...4.2" /> < id nullFlavor="NA" /> <code codeSystem="local" code="5821-4" displayName="Automated urine sediment leukocyte count by microscopy (number/ high power field)" /> <statusCode code="completed" /> < effectiveTime value="" /> <value unit="[HPF]" xsi:type="PQ " value="" /> <referenceRange> <observationRange> <text>NRG</text> </observationRange> </referenceRange> </observation> </component> <component> <observation moodCode="EVN" classCode="OBS"> <templateId root= "2.16.840.1.555945.10..22.4.2" /> <id nullFlavor="NA" /> < code codeSystem="local" code="27353-6" displayName="Bacteria detection in urine sediment by light microscopy" /> <statusCode code="completed" /> <effectiveTime value="" /> <value unit="" xsi:type="PQ " value="TRACE" /> <referenceRange> <observationRange> <text>NRG</text> </observationRange> </ referenceRange> </observation> </component> <component> <observation moodCode="EVN" classCode="OBS"> <templateId root= "216.840.1.741744.10..4.2" /> <id nullFlavor="NA" /> < code codeSystem="local" code="91054-2" displayName="Squamous epithelial cells detection in urine sediment by light microscopy" /> <statusCode code= "completed" /> <effectiveTime value="" /> <value unit="" xsi:type="PQ" value="5-10" /> <referenceRange> < observationRange> <text>NRG</text> </observationRange> </referenceRange> </observation> </component> < component> <observation moodCode="EVN" classCode="OBS"> < templateId root="05.02.840.1.566252.10.4.2" /> <id nullFlavor="NA " /> <code codeSystem="local" code="67633-0" displayName="Crystals detection in urine sediment by light microscopy" /> <statusCode code= "completed" /> <effectiveTime value="" /> <value unit="" xsi:type="PQ" value="NONE" /> <referenceRange> < observationRange> <text>NRG</text> </observationRange> </referenceRange> </observation> </component> < component> <observation moodCode="EVN" classCode="OBS"> < templateId root="216.840.1.330194.10..22.4.2" /> <id nullFlavor="NA " /> <code codeSystem="local" code="35882-8" displayName="Casts detection in urine sediment by light microscopy" /> <statusCode code= "completed" /> <effectiveTime value="" /> <value unit="" xsi:type="PQ" value="NONE" /> <referenceRange> < observationRange> <text>NRG</text> </observationRange> </referenceRange> </observation> </component> < component> <observation moodCode="EVN" classCode="OBS"> < templateId root="216.840.1.302523.10..22.4.2" /> <id nullFlavor="NA " /> <code codeSystem="local" code="8247-9" displayName="Mucus detection in urine sediment by light microscopy" /> <statusCode code= "completed" /> <effectiveTime value="952830665460" /> <value unit="" xsi:type="PQ" value="SMALL" /> <interpretationCode codeSystem= "local" code="*" /> <referenceRange> <observationRange> <text>NRG</text> </observationRange> </ referenceRange> </observation> </component> <component> <observation moodCode="EVN" classCode="OBS"> <templateId root= "216.840.1.492711.10..4.2" /> <id nullFlavor="NA" /> < code codeSystem="local" code="01043-7" displayName="Complete urinalysis with reflex to culture" /> <statusCode code="completed" /> < effectiveTime value="659310113501" /> <value unit="" xsi:type="PQ" value="NO" /> <referenceRange> <observationRange> <text>NRG</text> </observationRange> </referenceRange> </observation> </component> </organizer> </entry> <entry> < organizer moodCode="EVN" classCode="BATTERY"> <templateId root= "216.840.1.065677.10.22.4.1" /> <id nullFlavor="NA" /> <code codeSystem="local" code="65718-9" displayName="Complete blood count (CBC) with automated white blood cell (WBC) differential" /> <statusCode code= "completed" /> <component> <observation moodCode="EVN" classCode= "OBS"> <templateId root="2.16.840.1.056102.10.20.22.4.2" /> < id nullFlavor="NA" /> <code codeSystem="local" code="6690-2" displayName="Blood leukocytes automated count (number/volume)" /> < statusCode code="completed" /> <effectiveTime value="" /> <value unit="10*3/uL" xsi:type="PQ" value="7.4" /> < referenceRange> <observationRange> <text>4.3-11.0</text > </observationRange> </referenceRange> </observation > </component> <component> <observation moodCode="EVN" classCode="OBS"> <templateId root="216.840.1.826285.10..22.4.2" /> <id nullFlavor="NA" /> <code codeSystem="local" code="789-8" displayName="Blood erythrocytes automated count (number/volume)" /> < statusCode code="completed" /> <effectiveTime value="" /> <value unit="10*6/uL" xsi:type="PQ" value="4.93" /> < referenceRange> <observationRange> <text>4.35-5.85</text > </observationRange> </referenceRange> </observation > </component> <component> <observation moodCode="EVN" classCode="OBS"> <templateId root="2.16.840.1.176703.10..22.4.2" /> <id nullFlavor="NA" /> <code codeSystem="local" code="33295-7 " displayName="Venous blood hemoglobin measurement (mass/volume)" /> < statusCode code="completed" /> <effectiveTime value="" /> <value unit="g/dL" xsi:type="PQ" value="12.7" /> < referenceRange> <observationRange> <text>11.5-16.0</text > </observationRange> </referenceRange> </observation > </component> <component> <observation moodCode="EVN" classCode="OBS"> <templateId root="2.16.840.1.342836.10..22.4.2" /> <id nullFlavor="NA" /> <code codeSystem="local" code="69850-0 " displayName="Blood hematocrit (volume fraction)" /> <statusCode code= "completed" /> <effectiveTime value="" /> <value unit="%" xsi:type="PQ" value="39" /> <referenceRange> < observationRange> <text>35-52</text> </observationRange > </referenceRange> </observation> </component> < component> <observation moodCode="EVN" classCode="OBS"> < templateId root="2.16.840.1.938765.10..22.4.2" /> <id nullFlavor="NA " /> <code codeSystem="local" code="787-2" displayName="Automated erythrocyte mean corpuscular volume" /> <statusCode code="completed" / > <effectiveTime value="" /> <value unit="[foz_us] " xsi:type="PQ" value="79" /> <interpretationCode codeSystem="local" code="" /> <referenceRange> <observationRange> <text>80-99</text> </observationRange> </referenceRange> </observation> </component> <component> <observation moodCode="EVN" classCode="OBS"> <templateId root= "2.16.840.1.598987.10..22.4.2" /> <id nullFlavor="NA" /> < code codeSystem="local" code="785-6" displayName="Automated erythrocyte mean corpuscular hemoglobin (mass per erythrocyte)" /> <statusCode code= "completed" /> <effectiveTime value="072505842175" /> <value unit="pg" xsi:type="PQ" value="26" /> <referenceRange> < observationRange> <text>25-34</text> </observationRange > </referenceRange> </observation> </component> < component> <observation moodCode="EVN" classCode="OBS"> < templateId root="216.840.1.362667.10...4.2" /> <id nullFlavor="NA " /> <code codeSystem="local" code="786-4" displayName="Automated erythrocyte mean corpuscular hemoglobin concentration measurement (mass/volume) " /> <statusCode code="completed" /> <effectiveTime value= "363931277233" /> <value unit="g/dL" xsi:type="PQ" value="33" /> <referenceRange> <observationRange> <text>32-36</ text> </observationRange> </referenceRange> </ observation> </component> <component> <observation moodCode= "EVN" classCode="OBS"> <templateId root="2.16.840.1.584153.10..22.4.2 " /> <id nullFlavor="NA" /> <code codeSystem="local" code="788 -0" displayName="Automated erythrocyte distribution width ratio" /> < statusCode code="completed" /> <effectiveTime value="" /> <value unit="%" xsi:type="PQ" value="15.8" /> < interpretationCode codeSystem="local" code="" /> <referenceRange> <observationRange> <text>10.0-14.5</text> </ observationRange> </referenceRange> </observation> </ component> <component> <observation moodCode="EVN" classCode="OBS"> <templateId root="2.16.840.1.681694.10.20.22.4.2" /> <id nullFlavor="NA" /> <code codeSystem="local" code="777-3" displayName= "Automated blood platelet count (count/volume)" /> <statusCode code= "completed" /> <effectiveTime value="" /> <value unit="10*3/uL" xsi:type="PQ" value="341" /> <referenceRange> <observationRange> <text>130-400</text> </ observationRange> </referenceRange> </observation> </ component> <component> <observation moodCode="EVN" classCode="OBS"> <templateId root="2.16.840.1.361689.10.20.22.4.2" /> <id nullFlavor="NA" /> <code codeSystem="local" code="67998-8" displayName= "Automated blood platelet mean volume measurement" /> <statusCode code= "completed" /> <effectiveTime value="" /> <value unit="[foz_us]" xsi:type="PQ" value="10.4" /> <referenceRange> <observationRange> <text>7.4-10.4</text> </ observationRange> </referenceRange> </observation> </ component> <component> <observation moodCode="EVN" classCode="OBS"> <templateId root="2.16.840.1.821670.10.20.22.4.2" /> <id nullFlavor="NA" /> <code codeSystem="local" code="770-8" displayName= "Automated blood neutrophils/100 leukocytes" /> <statusCode code= "completed" /> <effectiveTime value="" /> <value unit="%" xsi:type="PQ" value="54" /> <referenceRange> < observationRange> <text>42-75</text> </observationRange > </referenceRange> </observation> </component> < component> <observation moodCode="EVN" classCode="OBS"> < templateId root="2.16.840.1.233918.10.20.22.4.2" /> <id nullFlavor="NA " /> <code codeSystem="local" code="736-9" displayName="Automated blood lymphocytes/100 leukocytes" /> <statusCode code="completed" /> <effectiveTime value="" /> <value unit="%" xsi: type="PQ" value="30" /> <referenceRange> <observationRange> <text>12-44</text> </observationRange> </ referenceRange> </observation> </component> <component> <observation moodCode="EVN" classCode="OBS"> <templateId root= "2.16.840.1.926140.10.20.22.4.2" /> <id nullFlavor="NA" /> < code codeSystem="local" code="90845-2" displayName="Blood monocytes/100 leukocytes" /> <statusCode code="completed" /> <effectiveTime value="" /> <value unit="%" xsi:type="PQ" value="13" / > <interpretationCode codeSystem="local" code="" /> < referenceRange> <observationRange> <text>0-12</text> </observationRange> </referenceRange> </observation> </component> <component> <observation moodCode="EVN" classCode= "OBS"> <templateId root="216.840.1.713103.10.20.22.4.2" /> < id nullFlavor="NA" /> <code codeSystem="local" code="713-8" displayName ="Automated blood eosinophils/100 leukocytes" /> <statusCode code= "completed" /> <effectiveTime value="121038305422" /> <value unit="%" xsi:type="PQ" value="2" /> <referenceRange> < observationRange> <text>0-10</text> </observationRange> </referenceRange> </observation> </component> < component> <observation moodCode="EVN" classCode="OBS"> < templateId root="16.840.1.222478.10.20.22.4.2" /> <id nullFlavor="NA " /> <code codeSystem="local" code="706-2" displayName="Automated blood basophils/100 leukocytes" /> <statusCode code="completed" /> <effectiveTime value="690063562068" /> <value unit="%" xsi: type="PQ" value="1" /> <referenceRange> <observationRange> <text>0-10</text> </observationRange> </ referenceRange> </observation> </component> <component> <observation moodCode="EVN" classCode="OBS"> <templateId root= "16.840.1.783180.10.20.22.4.2" /> <id nullFlavor="NA" /> < code codeSystem="local" code="751-8" displayName="Blood neutrophils automated count (number/volume)" /> <statusCode code="completed" /> < effectiveTime value="041325045208" /> <value unit="10*3" xsi:type="PQ" value="4.0" /> <referenceRange> <observationRange> <text>1.8-7.8</text> </observationRange> </ referenceRange> </observation> </component> <component> <observation moodCode="EVN" classCode="OBS"> <templateId root= "2.16.840.1.528058.10.20.22.4.2" /> <id nullFlavor="NA" /> < code codeSystem="local" code="731-0" displayName="Blood lymphocytes automated count (number/volume)" /> <statusCode code="completed" /> < effectiveTime value="" /> <value unit="10*3" xsi:type="PQ" value="2.2" /> <referenceRange> <observationRange> <text>1.0-4.0</text> </observationRange> </ referenceRange> </observation> </component> <component> <observation moodCode="EVN" classCode="OBS"> <templateId root= "2.16.840.1.779014.10.20.22.4.2" /> <id nullFlavor="NA" /> < code codeSystem="local" code="742-7" displayName="Blood monocytes automated count (number/volume)" /> <statusCode code="completed" /> < effectiveTime value="" /> <value unit="10*3" xsi:type="PQ" value="1.0" /> <referenceRange> <observationRange> <text>0.0-1.0</text> </observationRange> </ referenceRange> </observation> </component> <component> <observation moodCode="EVN" classCode="OBS"> <templateId root= "16.840.1.680079.10.20.22.4.2" /> <id nullFlavor="NA" /> < code codeSystem="local" code="711-2" displayName="Automated eosinophil count" / > <statusCode code="completed" /> <effectiveTime value= "" /> <value unit="10*3/uL" xsi:type="PQ" value="0.2" /> <referenceRange> <observationRange> <text>0.0- 0.3</text> </observationRange> </referenceRange> </ observation> </component> <component> <observation moodCode= "EVN" classCode="OBS"> <templateId root="16.840.1.839750.10...4.2 " /> <id nullFlavor="NA" /> <code codeSystem="local" code="704 -7" displayName="Automated blood basophil count (count/volume)" /> < statusCode code="completed" /> <effectiveTime value="" /> <value unit="10*3/uL" xsi:type="PQ" value="0.0" /> < referenceRange> <observationRange> <text>0.0-0.1</text> </observationRange> </referenceRange> </observation > </component> </organizer> </entry> <entry> <organizer moodCode= "EVN" classCode="BATTERY"> <templateId root="216.840.1.508079.10..22.4.1 " /> <id nullFlavor="NA" /> <code codeSystem="local" code="47345-1" displayName="Complete urinalysis with reflex to culture" /> <statusCode code="completed" /> <component> <observation moodCode="EVN" classCode="OBS"> <templateId root="216.840.1.159012.10..22.4.2" /> <id nullFlavor="NA" /> <code codeSystem="local" code="5778-6" displayName="Urine color determination" /> <statusCode code="completed " /> <effectiveTime value="" /> <value unit="" xsi :type="PQ" value="YELLOW" /> <referenceRange> < observationRange> <text>NRG</text> </observationRange> </referenceRange> </observation> </component> < component> <observation moodCode="EVN" classCode="OBS"> < templateId root="16.840.1.603555.10..22.4.2" /> <id nullFlavor="NA " /> <code codeSystem="local" code="74801-9" displayName="Urine clarity determination" /> <statusCode code="completed" /> < effectiveTime value="" /> <value unit="" xsi:type="PQ" value="CLEAR" /> <referenceRange> <observationRange> <text>NRG</text> </observationRange> </referenceRange > </observation> </component> <component> <observation moodCode="EVN" classCode="OBS"> <templateId root= "05.02.840.1.922439.10.22.4.2" /> <id nullFlavor="NA" /> < code codeSystem="local" code="5803-2" displayName="Urine pH measurement by test strip" /> <statusCode code="completed" /> <effectiveTime value ="" /> <value unit="" xsi:type="PQ" value="6" /> < referenceRange> <observationRange> <text>5-9</text> </observationRange> </referenceRange> </observation> </component> <component> <observation moodCode="EVN" classCode= "OBS"> <templateId root="216.840.1.961957.10.22.4.2" /> < id nullFlavor="NA" /> <code codeSystem="local" code="5811-5" displayName="Specific gravity of urine by test strip" /> <statusCode code="completed" /> <effectiveTime value="" /> < value unit="" xsi:type="PQ" value="1.025" /> <interpretationCode codeSystem="local" code="*" /> <referenceRange> < observationRange> <text>1.016-1.022</text> </ observationRange> </referenceRange> </observation> </ component> <component> <observation moodCode="EVN" classCode="OBS"> <templateId root="05.02.840.1.931001.10.4.2" /> <id nullFlavor="NA" /> <code codeSystem="local" code="08276-7" displayName= "Urine protein assay by test strip, semi-quantitative" /> <statusCode code="completed" /> <effectiveTime value="" /> < value unit="" xsi:type="PQ" value="NEGATIVE" /> <referenceRange> <observationRange> <text>NEGATIVE</text> </ observationRange> </referenceRange> </observation> </ component> <component> <observation moodCode="EVN" classCode="OBS"> <templateId root="216.840.1.887412.10.22.4.2" /> <id nullFlavor="NA" /> <code codeSystem="local" code="13069-6" displayName= "Urine glucose detection by automated test strip" /> <statusCode code= "completed" /> <effectiveTime value="" /> <value unit="" xsi:type="PQ" value="NEGATIVE" /> <referenceRange> < observationRange> <text>NEGATIVE</text> </ observationRange> </referenceRange> </observation> </ component> <component> <observation moodCode="EVN" classCode="OBS"> <templateId root="16.840.1.722190.10.2022.4.2" /> <id nullFlavor="NA" /> <code codeSystem="local" code="20231-3" displayName= "Erythrocytes detection in urine sediment by light microscopy" /> < statusCode code="completed" /> <effectiveTime value="" /> <value unit="" xsi:type="PQ" value="NEGATIVE" /> < referenceRange> <observationRange> <text>NEGATIVE</text > </observationRange> </referenceRange> </observation > </component> <component> <observation moodCode="EVN" classCode="OBS"> <templateId root="05.02.840.1.708871.1022.4.2" /> <id nullFlavor="NA" /> <code codeSystem="local" code="63340-8 " displayName="Urine ketones detection by automated test strip" /> < statusCode code="completed" /> <effectiveTime value="" /> <value unit="" xsi:type="PQ" value="NEGATIVE" /> < referenceRange> <observationRange> <text>NEGATIVE</text > </observationRange> </referenceRange> </observation > </component> <component> <observation moodCode="EVN" classCode="OBS"> <templateId root="16.840.1.295051.10.2022.4.2" /> <id nullFlavor="NA" /> <code codeSystem="local" code="5802-4" displayName="Urine nitrite detection by test strip" /> <statusCode code ="completed" /> <effectiveTime value="" /> <value unit="" xsi:type="PQ" value="NEGATIVE" /> <referenceRange> < observationRange> <text>NEGATIVE</text> </ observationRange> </referenceRange> </observation> </ component> <component> <observation moodCode="EVN" classCode="OBS"> <templateId root="2.16.840.1.794436.10.20.22.4.2" /> <id nullFlavor="NA" /> <code codeSystem="local" code="5770-3" displayName= "Urine total bilirubin detection by test strip" /> <statusCode code= "completed" /> <effectiveTime value="" /> <value unit="" xsi:type="PQ" value="NEGATIVE" /> <referenceRange> < observationRange> <text>NEGATIVE</text> </ observationRange> </referenceRange> </observation> </ component> <component> <observation moodCode="EVN" classCode="OBS"> <templateId root="2.16.840.1.925535.10.20.22.4.2" /> <id nullFlavor="NA" /> <code codeSystem="local" code="69095-4" displayName= "Urine urobilinogen measurement by automated test strip (mass/volume)" /> <statusCode code="completed" /> <effectiveTime value=" " /> <value unit="" xsi:type="PQ" value="NORMAL" /> < referenceRange> <observationRange> <text>NORMAL</text> </observationRange> </referenceRange> </observation> </component> <component> <observation moodCode="EVN" classCode ="OBS"> <templateId root="216.840.1.671682.10.20.22.4.2" /> < id nullFlavor="NA" /> <code codeSystem="local" code="5799-2" displayName="Urine leukocyte esterase detection by dipstick" /> < statusCode code="completed" /> <effectiveTime value="" /> <value unit="" xsi:type="PQ" value="1+" /> < interpretationCode codeSystem="local" code="*" /> <referenceRange> <observationRange> <text>NEGATIVE</text> </ observationRange> </referenceRange> </observation> </ component> <component> <observation moodCode="EVN" classCode="OBS"> <templateId root="216.840.1.681421.10...4.2" /> <id nullFlavor="NA" /> <code codeSystem="local" code="17716-6" displayName= "Automated urine sediment erythrocyte count by microscopy (number/high power field)" /> <statusCode code="completed" /> <effectiveTime value="" /> <value unit="" xsi:type="PQ" value="NONE" /> <referenceRange> <observationRange> <text>NRG</ text> </observationRange> </referenceRange> </ observation> </component> <component> <observation moodCode= "EVN" classCode="OBS"> <templateId root="16.840.1.533335.10..22.4.2 " /> <id nullFlavor="NA" /> <code codeSystem="local" code= "5821-4" displayName="Automated urine sediment leukocyte count by microscopy ( number/high power field)" /> <statusCode code="completed" /> < effectiveTime value="" /> <value unit="" xsi:type="PQ" value="NONE" /> <referenceRange> <observationRange> <text>NRG</text> </observationRange> </referenceRange > </observation> </component> <component> <observation moodCode="EVN" classCode="OBS"> <templateId root= "05.02.840.1.363119.10.20.22.4.2" /> <id nullFlavor="NA" /> < code codeSystem="local" code="53740-6" displayName="Bacteria detection in urine sediment by light microscopy" /> <statusCode code="completed" /> <effectiveTime value="[id number]" /> <value unit="" xsi:type="PQ " value="NEGATIVE" /> <referenceRange> <observationRange> <text>NRG</text> </observationRange> </ referenceRange> </observation> </component> <component> <observation moodCode="EVN" classCode="OBS"> <templateId root= "05.02.840.1.226871.10..22.4.2" /> <id nullFlavor="NA" /> < code codeSystem="local" code="11330-1" displayName="Squamous epithelial cells detection in urine sediment by light microscopy" /> <statusCode code= "completed" /> <effectiveTime value="369748540311" /> <value unit="" xsi:type="PQ" value="25-50" /> <interpretationCode codeSystem= "local" code="*" /> <referenceRange> <observationRange> <text>NRG</text> </observationRange> </ referenceRange> </observation> </component> <component> <observation moodCode="EVN" classCode="OBS"> <templateId root= "05.02.840.1.863058.10.20.22.4.2" /> <id nullFlavor="NA" /> < code codeSystem="local" code="59484-3" displayName="Crystals detection in urine sediment by light microscopy" /> <statusCode code="completed" /> <effectiveTime value="" /> <value unit="" xsi:type="PQ " value="NONE" /> <referenceRange> <observationRange> <text>NRG</text> </observationRange> </ referenceRange> </observation> </component> <component> <observation moodCode="EVN" classCode="OBS"> <templateId root= "216.840.1.170076.10.20.22.4.2" /> <id nullFlavor="NA" /> < code codeSystem="local" code="91239-2" displayName="Casts detection in urine sediment by light microscopy" /> <statusCode code="completed" /> <effectiveTime value="" /> <value unit="" xsi:type="PQ " value="NONE" /> <referenceRange> <observationRange> <text>NRG</text> </observationRange> </ referenceRange> </observation> </component> <component> <observation moodCode="EVN" classCode="OBS"> <templateId root= "216.840.1.485292.10.20.22.4.2" /> <id nullFlavor="NA" /> < code codeSystem="local" code="8247-9" displayName="Mucus detection in urine sediment by light microscopy" /> <statusCode code="completed" /> <effectiveTime value="" /> <value unit="" xsi:type="PQ " value="NEGATIVE" /> <referenceRange> <observationRange> <text>NRG</text> </observationRange> </ referenceRange> </observation> </component> <component> <observation moodCode="EVN" classCode="OBS"> <templateId root= "05.02.840.1.743665.01.03.22.4.2" /> <id nullFlavor="NA" /> < code codeSystem="local" code="67137-9" displayName="Complete urinalysis with reflex to culture" /> <statusCode code="completed" /> < effectiveTime value="" /> <value unit="" xsi:type="PQ" value="NO" /> <referenceRange> <observationRange> <text>NRG</text> </observationRange> </referenceRange> </observation> </component> </organizer> </entry> <entry> < organizer moodCode="EVN" classCode="BATTERY"> <templateId root= "05.02.840.1.556954...4.1" /> <id nullFlavor="NA" /> <code codeSystem="local" code="27163-4" displayName="Urine drug screening test" /> <statusCode code="completed" /> <component> <observation moodCode ="EVN" classCode="OBS"> <templateId root= "05.02.840.1.513360...4.2" /> <id nullFlavor="NA" /> < code codeSystem="local" code="08714-6" displayName="Urine phencyclidine detection by screening method" /> <statusCode code="completed" /> <effectiveTime value="" /> <value unit="" xsi:type="PQ " value="NEGATIVE" /> <referenceRange> <observationRange> <text>NEGATIVE</text> </observationRange> </ referenceRange> </observation> </component> <component> <observation moodCode="EVN" classCode="OBS"> <templateId root= "05.02.840.1.979007.10...4.2" /> <id nullFlavor="NA" /> < code codeSystem="local" code="14940-8" displayName="Urine benzodiazepines detection by screening method" /> <statusCode code="completed" /> <effectiveTime value="" /> <value unit="" xsi:type="PQ " value="NEGATIVE" /> <referenceRange> <observationRange> <text>NEGATIVE</text> </observationRange> </ referenceRange> </observation> </component> <component> <observation moodCode="EVN" classCode="OBS"> <templateId root= "216.840.1.889776.10.20.22.4.2" /> <id nullFlavor="NA" /> < code codeSystem="local" code="3397-7" displayName="Urine cocaine detection" /> <statusCode code="completed" /> <effectiveTime value= "" /> <value unit="" xsi:type="PQ" value="NEGATIVE" /> <referenceRange> <observationRange> <text>NEGATIVE </text> </observationRange> </referenceRange> </ observation> </component> <component> <observation moodCode= "EVN" classCode="OBS"> <templateId root="216.840.1.884887.10.20.22.4.2 " /> <id nullFlavor="NA" /> <code codeSystem="local" code= "86168-0" displayName="Urine amphetamines detection by screening method" /> <statusCode code="completed" /> <effectiveTime value= "" /> <value unit="" xsi:type="PQ" value="NEGATIVE" /> <referenceRange> <observationRange> <text>NEGATIVE </text> </observationRange> </referenceRange> </ observation> </component> <component> <observation moodCode= "EVN" classCode="OBS"> <templateId root="16.840.1.864932.10..22.4.2 " /> <id nullFlavor="NA" /> <code codeSystem="local" code= "30298-3" displayName="Urine methamphetamine detection by screening method" /> <statusCode code="completed" /> <effectiveTime value= "" /> <value unit="" xsi:type="PQ" value="NEGATIVE" /> <referenceRange> <observationRange> <text>NEGATIVE </text> </observationRange> </referenceRange> </ observation> </component> <component> <observation moodCode= "EVN" classCode="OBS"> <templateId root="2.16.840.1.709902...4.2 " /> <id nullFlavor="NA" /> <code codeSystem="local" code= "96013-7" displayName="Urine cannabinoids detection by screening method" /> <statusCode code="completed" /> <effectiveTime value= "" /> <value unit="" xsi:type="PQ" value="NEGATIVE" /> <referenceRange> <observationRange> <text>NEGATIVE </text> </observationRange> </referenceRange> </ observation> </component> <component> <observation moodCode= "EVN" classCode="OBS"> <templateId root="216.840.1.027393.10..4.2 " /> <id nullFlavor="NA" /> <code codeSystem="local" code= "12662-6" displayName="Urine opiates detection by screening method" /> <statusCode code="completed" /> <effectiveTime value="" /> <value unit="" xsi:type="PQ" value="NEGATIVE" /> < referenceRange> <observationRange> <text>NEGATIVE</text > </observationRange> </referenceRange> </observation > </component> <component> <observation moodCode="EVN" classCode="OBS"> <templateId root="2.16.840.1.576038.10.20.22.4.2" /> <id nullFlavor="NA" /> <code codeSystem="local" code="3377-9" displayName="Urine barbiturates detection" /> <statusCode code= "completed" /> <effectiveTime value="" /> <value unit="" xsi:type="PQ" value="NEGATIVE" /> <referenceRange> < observationRange> <text>NEGATIVE</text> </ observationRange> </referenceRange> </observation> </ component> <component> <observation moodCode="EVN" classCode="OBS"> <templateId root="2.16.840.1.628168.10..22.4.2" /> <id nullFlavor="NA" /> <code codeSystem="local" code="51321-3" displayName= "Screening urine tricyclic antidepressants detection" /> <statusCode code="completed" /> <effectiveTime value="" /> < value unit="" xsi:type="PQ" value="POSITIVE" /> <interpretationCode codeSystem="local" code="*" /> <referenceRange> < observationRange> <text>NEGATIVE</text> </ observationRange> </referenceRange> </observation> </ component> <component> <observation moodCode="EVN" classCode="OBS"> <templateId root="2.16.840.1.536106.10.20.22.4.2" /> <id nullFlavor="NA" /> <code codeSystem="local" code="95750-0" displayName= "Urine methadone detection by screening method" /> <statusCode code= "completed" /> <effectiveTime value="" /> <value unit="" xsi:type="PQ" value="NEGATIVE" /> <referenceRange> < observationRange> <text>NEGATIVE</text> </ observationRange> </referenceRange> </observation> </ component> <component> <observation moodCode="EVN" classCode="OBS"> <templateId root="05.02.840.1.697404.10.20.22.4.2" /> <id nullFlavor="NA" /> <code codeSystem="local" code="84197-5" displayName= "Urine oxycodone detection" /> <statusCode code="completed" /> <effectiveTime value="" /> <value unit="" xsi:type="PQ" value="NEGATIVE" /> <referenceRange> <observationRange> <text>NEGATIVE</text> </observationRange> </ referenceRange> </observation> </component> <component> <observation moodCode="EVN" classCode="OBS"> <templateId root= "05.02.840.1.145972.10..4.2" /> <id nullFlavor="NA" /> < code codeSystem="local" code="78488-0" displayName="Urine propoxyphene detection " /> <statusCode code="completed" /> <effectiveTime value= "186293184297" /> <value unit="" xsi:type="PQ" value="NEGATIVE" /> <referenceRange> <observationRange> <text>NEGATIVE </text> </observationRange> </referenceRange> </ observation> </component> </organizer> </entry> <entry> <organizer moodCode="EVN" classCode="BATTERY"> <templateId root= "05.02.840.1.584853.10.20.22.4.1" /> <id nullFlavor="NA" /> <code codeSystem="local" code="77237-1" displayName="Comprehensive metabolic panel" / > <statusCode code="completed" /> <component> <observation moodCode="EVN" classCode="OBS"> <templateId root= "2.16.840.1.162123.10.20.22.4.2" /> <id nullFlavor="NA" /> < code codeSystem="local" code="2951-2" displayName="Serum or plasma sodium measurement (moles/volume)" /> <statusCode code="completed" /> <effectiveTime value="214218493749" /> <value unit="mmol/L" xsi:type= "PQ" value="140" /> <referenceRange> <observationRange> <text>135-145</text> </observationRange> </ referenceRange> </observation> </component> <component> <observation moodCode="EVN" classCode="OBS"> <templateId root= "2.16.840.1.718689.10.22.4.2" /> <id nullFlavor="NA" /> < code codeSystem="local" code="2823-3" displayName="Serum or plasma potassium measurement (moles/volume)" /> <statusCode code="completed" /> <effectiveTime value="713163253419" /> <value unit="mmol/L" xsi:type= "PQ" value="3.8" /> <referenceRange> <observationRange> <text>3.6-5.0</text> </observationRange> </ referenceRange> </observation> </component> <component> <observation moodCode="EVN" classCode="OBS"> <templateId root= "2.16.840.1.656516.10.20.22.4.2" /> <id nullFlavor="NA" /> < code codeSystem="local" code="2075-0" displayName="Serum or plasma chloride measurement (moles/volume)" /> <statusCode code="completed" /> <effectiveTime value="260992035157" /> <value unit="mmol/L" xsi:type= "PQ" value="107" /> <referenceRange> <observationRange> <text>98-107</text> </observationRange> </ referenceRange> </observation> </component> <component> <observation moodCode="EVN" classCode="OBS"> <templateId root= "2.16.840.1.010257.10..22.4.2" /> <id nullFlavor="NA" /> < code codeSystem="local" code="2027-11" displayName="Carbon dioxide" /> < statusCode code="completed" /> <effectiveTime value="619753146452" /> <value unit="mmol/L" xsi:type="PQ" value="20" /> < interpretationCode codeSystem="local" code="" /> <referenceRange> <observationRange> <text>21-32</text> </ observationRange> </referenceRange> </observation> </ component> <component> <observation moodCode="EVN" classCode="OBS"> <templateId root="2.16.840.1.818922.10..22.4.2" /> <id nullFlavor="NA" /> <code codeSystem="local" code="62187-2" displayName= "Serum or plasma anion gap determination (moles/volume)" /> < statusCode code="completed" /> <effectiveTime value="653945295184" /> <value unit="mmol/L" xsi:type="PQ" value="13" /> < referenceRange> <observationRange> <text>5-14</text> </observationRange> </referenceRange> </observation> </component> <component> <observation moodCode="EVN" classCode= "OBS"> <templateId root="2.16.840.1.015156.10..22.4.2" /> < id nullFlavor="NA" /> <code codeSystem="local" code="3094-0" displayName="Serum or plasma urea nitrogen measurement (mass/volume)" /> <statusCode code="completed" /> <effectiveTime value="301599073864" /> <value unit="mg/dL" xsi:type="PQ" value="15" /> < referenceRange> <observationRange> <text>7-18</text> </observationRange> </referenceRange> </observation> </component> <component> <observation moodCode="EVN" classCode= "OBS"> <templateId root="216.840.1.186573.10..22.4.2" /> < id nullFlavor="NA" /> <code codeSystem="local" code="2160-0" displayName="Serum or plasma creatinine measurement (mass/volume)" /> < statusCode code="completed" /> <effectiveTime value="896994977681" /> <value unit="mg/dL" xsi:type="PQ" value="0.74" /> < referenceRange> <observationRange> <text>0.60-1.30</text > </observationRange> </referenceRange> </observation > </component> <component> <observation moodCode="EVN" classCode="OBS"> <templateId root="05.02.840.1.320284.10..22.4.2" /> <id nullFlavor="NA" /> <code codeSystem="local" code="3097-3" displayName="Serum or plasma urea nitrogen/creatinine mass ratio" /> < statusCode code="completed" /> <effectiveTime value="" /> <value unit="" xsi:type="PQ" value="20" /> <referenceRange> <observationRange> <text>NRG</text> </ observationRange> </referenceRange> </observation> </ component> <component> <observation moodCode="EVN" classCode="OBS"> <templateId root="216.840.1.668077.10..22.4.2" /> <id nullFlavor="NA" /> <code codeSystem="local" code="02589-9" displayName= "Serum or plasma creatinine measurement with calculation of estimated glomerular filtration rate" /> <statusCode code="completed" /> <effectiveTime value="029421391081" /> <value unit="" xsi:type="PQ" value=">" /> <referenceRange> <observationRange> <text>NRG</text> </observationRange> </referenceRange > </observation> </component> <component> <observation moodCode="EVN" classCode="OBS"> <templateId root= "05.02.840.1.229919.10...4.2" /> <id nullFlavor="NA" /> < code codeSystem="local" code="2345-7" displayName="Serum or plasma glucose measurement (mass/volume)" /> <statusCode code="completed" /> <effectiveTime value="479964481848" /> <value unit="mg/dL" xsi:type="PQ " value="53" /> <interpretationCode codeSystem="local" code="" /> <referenceRange> <observationRange> <text>70-105< /text> </observationRange> </referenceRange> </ observation> </component> <component> <observation moodCode= "EVN" classCode="OBS"> <templateId root="05.02.840.1.811148.10..22.4.2 " /> <id nullFlavor="NA" /> <code codeSystem="local" code= "74874-5" displayName="Serum or plasma calcium measurement (mass/volume)" /> <statusCode code="completed" /> <effectiveTime value= "969787192001" /> <value unit="mg/dL" xsi:type="PQ" value="8.8" /> <referenceRange> <observationRange> <text>8.5-10.1 </text> </observationRange> </referenceRange> </ observation> </component> <component> <observation moodCode= "EVN" classCode="OBS"> <templateId root="2.16.840.1.998209.10.20.22.4.2 " /> <id nullFlavor="NA" /> <code codeSystem="local" code= "1975" displayName="Serum or plasma total bilirubin measurement (mass/volume) " /> <statusCode code="completed" /> <effectiveTime value= "706656074052" /> <value unit="mg/dL" xsi:type="PQ" value="1.1" /> <interpretationCode codeSystem="local" code="" /> < referenceRange> <observationRange> <text>0.1-1.0</text> </observationRange> </referenceRange> </observation > </component> <component> <observation moodCode="EVN" classCode="OBS"> <templateId root="2.16.840.1.356092.10.20.22.4.2" /> <id nullFlavor="NA" /> <code codeSystem="local" code="6768-6" displayName="Serum or plasma alkaline phosphatase measurement (enzymatic activity/volume)" /> <statusCode code="completed" /> < effectiveTime value="662525441494" /> <value unit="U/L" xsi:type="PQ" value="104" /> <referenceRange> <observationRange> <text>40-136</text> </observationRange> </ referenceRange> </observation> </component> <component> <observation moodCode="EVN" classCode="OBS"> <templateId root= "2.16.840.1.998183.10.20.22.4.2" /> <id nullFlavor="NA" /> < code codeSystem="local" code="1919-10" displayName="Serum or plasma aspartate aminotransferase measurement (enzymatic activity/volume)" /> < statusCode code="completed" /> <effectiveTime value="" /> <value unit="U/L" xsi:type="PQ" value="18" /> <referenceRange > <observationRange> <text>5-34</text> </ observationRange> </referenceRange> </observation> </ component> <component> <observation moodCode="EVN" classCode="OBS"> <templateId root="2.16.840.1.318062.10..22.4.2" /> <id nullFlavor="NA" /> <code codeSystem="local" code="17404-22" displayName= "Serum or plasma alanine aminotransferase measurement (enzymatic activity/volume )" /> <statusCode code="completed" /> <effectiveTime value= "" /> <value unit="U/L" xsi:type="PQ" value="18" /> <referenceRange> <observationRange> <text>0-55</text > </observationRange> </referenceRange> </observation > </component> <component> <observation moodCode="EVN" classCode="OBS"> <templateId root="2.16.840.1.629384.10.20.22.4.2" /> <id nullFlavor="NA" /> <code codeSystem="local" code="2885-2" displayName="Serum or plasma protein measurement (mass/volume)" /> < statusCode code="completed" /> <effectiveTime value="" /> <value unit="g/dL" xsi:type="PQ" value="6.9" /> < referenceRange> <observationRange> <text>6.4-8.2</text> </observationRange> </referenceRange> </observation > </component> <component> <observation moodCode="EVN" classCode="OBS"> <templateId root="216.840.1.811169.10..22.4.2" /> <id nullFlavor="NA" /> <code codeSystem="local" code="1751-7" displayName="Serum or plasma albumin measurement (mass/volume)" /> < statusCode code="completed" /> <effectiveTime value="" /> <value unit="g/dL" xsi:type="PQ" value="4.1" /> < referenceRange> <observationRange> <text>3.2-4.5</text> </observationRange> </referenceRange> </observation > </component> </organizer> </entry> <entry> <organizer moodCode= "EVN" classCode="BATTERY"> <templateId root="216.840.1.706234.10..22.4.1 " /> <id nullFlavor="NA" /> <code codeSystem="local" code="5643-2" displayName="Serum or plasma ethanol measurement (mass/volume)" /> < statusCode code="completed" /> <component> <observation moodCode= "EVN" classCode="OBS"> <templateId root="216.840.1.561809.10.20.22.4.2 " /> <id nullFlavor="NA" /> <code codeSystem="local" code= "5643-2" displayName="Serum or plasma ethanol measurement (mass/volume)" /> <statusCode code="completed" /> <effectiveTime value= "" /> <value unit="mg/dL" xsi:type="PQ" value="<" /> <referenceRange> <observationRange> <text><10< /text> </observationRange> </referenceRange> </ observation> </component> </organizer> </entry> <entry> <organizer moodCode="EVN" classCode="BATTERY"> <templateId root= "05.02.840.1.943577.1022.4.1" /> <id nullFlavor="NA" /> <code codeSystem="local" code="ORD3" displayName="Comprehensive Metabolic Panel" /> <statusCode code="completed" /> <component> <observation moodCode="EVN" classCode="OBS"> <templateId root= "05.02.840.1.364132...4.2" /> <id nullFlavor="NA" /> < code codeSystem="local" code="Res44" displayName="Albumin" /> < statusCode code="completed" /> <effectiveTime value="" /> <value unit="g/dL" xsi:type="PQ" value="3.9" /> < referenceRange> <observationRange> <text>3.6-5.1</text> </observationRange> </referenceRange> </observation > </component> <component> <observation moodCode="EVN" classCode="OBS"> <templateId root="840.1.177109.22.4.2" /> <id nullFlavor="NA" /> <code codeSystem="local" code="Res45" displayName="ALP" /> <statusCode code="completed" /> < effectiveTime value="183478126126" /> <value unit="U/L" xsi:type="PQ" value="99" /> <referenceRange> <observationRange> <text>35-130</text> </observationRange> </referenceRange > </observation> </component> <component> <observation moodCode="EVN" classCode="OBS"> <templateId root= "216.840.1.317591.10..22.4.2" /> <id nullFlavor="NA" /> < code codeSystem="local" code="Res46" displayName="ALT" /> <statusCode code="completed" /> <effectiveTime value="" /> < value unit="U/L" xsi:type="PQ" value="11" /> <referenceRange> <observationRange> <text>6-45</text> </ observationRange> </referenceRange> </observation> </ component> <component> <observation moodCode="EVN" classCode="OBS"> <templateId root="05.02.840.1.175088.10...4.2" /> <id nullFlavor="NA" /> <code codeSystem="local" code="Res61" displayName= "Anion Gap" /> <statusCode code="completed" /> <effectiveTime value="" /> <value unit="" xsi:type="PQ" value="14" /> <referenceRange> <observationRange> <text>6-14</ text> </observationRange> </referenceRange> </ observation> </component> <component> <observation moodCode= "EVN" classCode="OBS"> <templateId root="16.840.1.972021.10...4.2 " /> <id nullFlavor="NA" /> <code codeSystem="local" code= "Res48" displayName="AST" /> <statusCode code="completed" /> < effectiveTime value="" /> <value unit="U/L" xsi:type="PQ" value="14" /> <referenceRange> <observationRange> <text>2-40</text> </observationRange> </referenceRange> </observation> </component> <component> <observation moodCode="EVN" classCode="OBS"> <templateId root= "05.02.840.1.902784.10.20.22.4.2" /> <id nullFlavor="NA" /> < code codeSystem="local" code="Res26" displayName="BUN" /> <statusCode code="completed" /> <effectiveTime value="" /> < value unit="mg/dL" xsi:type="PQ" value="14" /> <referenceRange> <observationRange> <text>5-25</text> </ observationRange> </referenceRange> </observation> </ component> <component> <observation moodCode="EVN" classCode="OBS"> <templateId root="840.1.110818.10..22.4.2" /> <id nullFlavor="NA" /> <code codeSystem="local" code="Res5" displayName= "Calcium" /> <statusCode code="completed" /> <effectiveTime value="" /> <value unit="mg/dL" xsi:type="PQ" value="9.5" / > <referenceRange> <observationRange> <text>8.3 -10.4</text> </observationRange> </referenceRange> </ observation> </component> <component> <observation moodCode= "EVN" classCode="OBS"> <templateId root="05.02.840.1.147144.10.20.22.4.2 " /> <id nullFlavor="NA" /> <code codeSystem="local" code= "Res21" displayName="Chloride" /> <statusCode code="completed" /> <effectiveTime value="" /> <value unit="mmol/L" xsi: type="PQ" value="107" /> <referenceRange> <observationRange > <text>95-114</text> </observationRange> </ referenceRange> </observation> </component> <component> <observation moodCode="EVN" classCode="OBS"> <templateId root= "16.840.1.263771.01.03.22.4.2" /> <id nullFlavor="NA" /> < code codeSystem="local" code="Res49" displayName="CO2" /> <statusCode code="completed" /> <effectiveTime value="" /> < value unit="mEq/L" xsi:type="PQ" value="24" /> <referenceRange> <observationRange> <text>22-33</text> </ observationRange> </referenceRange> </observation> </ component> <component> <observation moodCode="EVN" classCode="OBS"> <templateId root="05.02.840.1.027824.01.03.22.4.2" /> <id nullFlavor="NA" /> <code codeSystem="local" code="Nam420" displayName= "Creat" /> <statusCode code="completed" /> <effectiveTime value="" /> <value unit="mg/dL" xsi:type="PQ" value="0.69" /> <referenceRange> <observationRange> <text> 0.50-1.50</text> </observationRange> </referenceRange> </observation> </component> <component> <observation moodCode="EVN" classCode="OBS"> <templateId root= "216.840.1.349643...4.2" /> <id nullFlavor="NA" /> < code codeSystem="local" code="Nct906" displayName="eGFR" /> < statusCode code="completed" /> <effectiveTime value="" /> <value unit="mL/min/1.73m2" xsi:type="PQ" value="91" /> < referenceRange> <observationRange> <text>>59</text> </observationRange> </referenceRange> </observation> </component> <component> <observation moodCode="EVN" classCode ="OBS"> <templateId root="2.16.840.1.528522.10..22.4.2" /> < id nullFlavor="NA" /> <code codeSystem="local" code="Res7" displayName= "Globulin" /> <statusCode code="completed" /> <effectiveTime value="" /> <value unit="g/dL" xsi:type="PQ" value="3.2" / > <referenceRange> <observationRange> <text>2.3 -3.5</text> </observationRange> </referenceRange> </ observation> </component> <component> <observation moodCode= "EVN" classCode="OBS"> <templateId root="2.16.840.1.608736.10..22.4.2 " /> <id nullFlavor="NA" /> <code codeSystem="local" code= "Res60" displayName="Glucose" /> <statusCode code="completed" /> <effectiveTime value="" /> <value unit="mg/dL" xsi:type ="PQ" value="90" /> <referenceRange> <observationRange> <text>70-110</text> </observationRange> </ referenceRange> </observation> </component> <component> <observation moodCode="EVN" classCode="OBS"> <templateId root= "16.840.1.885819.10..22.4.2" /> <id nullFlavor="NA" /> < code codeSystem="local" code="Res52" displayName="Osmo" /> <statusCode code="completed" /> <effectiveTime value="" /> < value unit="" xsi:type="PQ" value="291" /> <referenceRange> <observationRange> <text>280-295</text> </ observationRange> </referenceRange> </observation> </ component> <component> <observation moodCode="EVN" classCode="OBS"> <templateId root="05.02.840.1.594019.10..22.4.2" /> <id nullFlavor="NA" /> <code codeSystem="local" code="Res20" displayName= "Potassium" /> <statusCode code="completed" /> <effectiveTime value="" /> <value unit="mmol/L" xsi:type="PQ" value="4.2" /> <referenceRange> <observationRange> <text> 3.5-5.3</text> </observationRange> </referenceRange> </observation> </component> <component> <observation moodCode= "EVN" classCode="OBS"> <templateId root="05.02.840.1.053970.10..22.4.2 " /> <id nullFlavor="NA" /> <code codeSystem="local" code= "Res19" displayName="Sodium" /> <statusCode code="completed" /> <effectiveTime value="" /> <value unit="mmol/L" xsi:type ="PQ" value="141" /> <referenceRange> <observationRange> <text>134-148</text> </observationRange> </ referenceRange> </observation> </component> <component> <observation moodCode="EVN" classCode="OBS"> <templateId root= "2.16.840.1.355557.10.22.4.2" /> <id nullFlavor="NA" /> < code codeSystem="local" code="Res51" displayName="TBil" /> <statusCode code="completed" /> <effectiveTime value="084862846783" /> < value unit="mg/dL" xsi:type="PQ" value="0.9" /> <referenceRange> <observationRange> <text>0.2-1.2</text> </ observationRange> </referenceRange> </observation> </ component> <component> <observation moodCode="EVN" classCode="OBS"> <templateId root="216.840.1.385259.01.03.22.4.2" /> <id nullFlavor="NA" /> <code codeSystem="local" code="Res24" displayName= "TP" /> <statusCode code="completed" /> <effectiveTime value= "675812268467" /> <value unit="g/dL" xsi:type="PQ" value="7.1" /> <referenceRange> <observationRange> <text>6.0-8.3</ text> </observationRange> </referenceRange> </ observation> </component> </organizer> </entry> <entry> <organizer moodCode="EVN" classCode="BATTERY"> <templateId root= "2.16.840.1.106056.10..22.4.1" /> <id nullFlavor="NA" /> <code codeSystem="local" code="ORD28" displayName="Lipase" /> <statusCode code= "completed" /> <component> <observation moodCode="EVN" classCode= "OBS"> <templateId root="216.840.1.468996.10.20.22.4.2" /> < id nullFlavor="NA" /> <code codeSystem="local" code="Res65" displayName ="Lipase" /> <statusCode code="completed" /> <effectiveTime value="852792228531" /> <value unit="U/L" xsi:type="PQ" value="31" /> <referenceRange> <observationRange> <text>7-59< /text> </observationRange> </referenceRange> </ observation> </component> </organizer> </entry> <entry> <organizer moodCode="EVN" classCode="BATTERY"> <templateId root= "2.16.840.1.835969.10.20.22.4.1" /> <id nullFlavor="NA" /> <code codeSystem="local" code="27360-4" displayName="Complete blood count (CBC) with automated white blood cell (WBC) differential" /> <statusCode code= "completed" /> <component> <observation moodCode="EVN" classCode= "OBS"> <templateId root="2.16.840.1.010938.10.20.22.4.2" /> < id nullFlavor="NA" /> <code codeSystem="local" code="6690-2" displayName="Blood leukocytes automated count (number/volume)" /> < statusCode code="completed" /> <effectiveTime value="594488256211" /> <value unit="10*3/uL" xsi:type="PQ" value="8.1" /> < referenceRange> <observationRange> <text>4.3-11.0</text > </observationRange> </referenceRange> </observation > </component> <component> <observation moodCode="EVN" classCode="OBS"> <templateId root="2.16.840.1.512300.10.20.22.4.2" /> <id nullFlavor="NA" /> <code codeSystem="local" code="789-8" displayName="Blood erythrocytes automated count (number/volume)" /> < statusCode code="completed" /> <effectiveTime value="036021288182" /> <value unit="10*6/uL" xsi:type="PQ" value="4.87" /> < referenceRange> <observationRange> <text>4.35-5.85</text > </observationRange> </referenceRange> </observation > </component> <component> <observation moodCode="EVN" classCode="OBS"> <templateId root="216.840.1.770671.10.20.22.4.2" /> <id nullFlavor="NA" /> <code codeSystem="local" code="59673-0 " displayName="Venous blood hemoglobin measurement (mass/volume)" /> < statusCode code="completed" /> <effectiveTime value="311177251155" /> <value unit="g/dL" xsi:type="PQ" value="11.7" /> < referenceRange> <observationRange> <text>11.5-16.0</text > </observationRange> </referenceRange> </observation > </component> <component> <observation moodCode="EVN" classCode="OBS"> <templateId root="216.840.1.959724.10.20.22.4.2" /> <id nullFlavor="NA" /> <code codeSystem="local" code="99366-9 " displayName="Blood hematocrit (volume fraction)" /> <statusCode code= "completed" /> <effectiveTime value="528300670306" /> <value unit="%" xsi:type="PQ" value="38" /> <referenceRange> < observationRange> <text>35-52</text> </observationRange > </referenceRange> </observation> </component> < component> <observation moodCode="EVN" classCode="OBS"> < templateId root="216.840.1.700357.10.20.22.4.2" /> <id nullFlavor="NA " /> <code codeSystem="local" code="787-2" displayName="Automated erythrocyte mean corpuscular volume" /> <statusCode code="completed" / > <effectiveTime value="556745394488" /> <value unit="[[facility]_] " xsi:type="PQ" value="77" /> <interpretationCode codeSystem="local" code="" /> <referenceRange> <observationRange> <text>80-99</text> </observationRange> </referenceRange> </observation> </component> <component> <observation moodCode="EVN" classCode="OBS"> <templateId root= "05.02.840.1.635389.10...4.2" /> <id nullFlavor="NA" /> < code codeSystem="local" code="785-6" displayName="Automated erythrocyte mean corpuscular hemoglobin (mass per erythrocyte)" /> <statusCode code= "completed" /> <effectiveTime value="889863642202" /> <value unit="pg" xsi:type="PQ" value="24" /> <interpretationCode codeSystem= "local" code="" /> <referenceRange> <observationRange> <text>25-34</text> </observationRange> </ referenceRange> </observation> </component> <component> <observation moodCode="EVN" classCode="OBS"> <templateId root= "16.840.1.972536.10..4.2" /> <id nullFlavor="NA" /> < code codeSystem="local" code="786-4" displayName="Automated erythrocyte mean corpuscular hemoglobin concentration measurement (mass/volume)" /> < statusCode code="completed" /> <effectiveTime value="769674515536" /> <value unit="g/dL" xsi:type="PQ" value="31" /> < interpretationCode codeSystem="local" code="" /> <referenceRange> <observationRange> <text>32-36</text> </ observationRange> </referenceRange> </observation> </ component> <component> <observation moodCode="EVN" classCode="OBS"> <templateId root="216.840.1.364529.10.4.2" /> <id nullFlavor="NA" /> <code codeSystem="local" code="788-0" displayName= "Automated erythrocyte distribution width ratio" /> <statusCode code= "completed" /> <effectiveTime value="" /> <value unit="%" xsi:type="PQ" value="17.9" /> <interpretationCode codeSystem="local" code="" /> <referenceRange> < observationRange> <text>10.0-14.5</text> </ observationRange> </referenceRange> </observation> </ component> <component> <observation moodCode="EVN" classCode="OBS"> <templateId root="216.840.1.498646.10.20.22.4.2" /> <id nullFlavor="NA" /> <code codeSystem="local" code="777-3" displayName= "Automated blood platelet count (count/volume)" /> <statusCode code= "completed" /> <effectiveTime value="" /> <value unit="10*3/uL" xsi:type="PQ" value="271" /> <referenceRange> <observationRange> <text>130-400</text> </ observationRange> </referenceRange> </observation> </ component> <component> <observation moodCode="EVN" classCode="OBS"> <templateId root="2.16.840.1.115520.10.20.22.4.2" /> <id nullFlavor="NA" /> <code codeSystem="local" code="21969-3" displayName= "Automated blood platelet mean volume measurement" /> <statusCode code= "completed" /> <effectiveTime value="119928899057" /> <value unit="[foz_us]" xsi:type="PQ" value="11.4" /> <interpretationCode codeSystem="local" code="" /> <referenceRange> < observationRange> <text>7.4-10.4</text> </ observationRange> </referenceRange> </observation> </ component> <component> <observation moodCode="EVN" classCode="OBS"> <templateId root="2.16.840.1.175296.10.20.22.4.2" /> <id nullFlavor="NA" /> <code codeSystem="local" code="770-8" displayName= "Automated blood neutrophils/100 leukocytes" /> <statusCode code= "completed" /> <effectiveTime value="467278582903" /> <value unit="%" xsi:type="PQ" value="88" /> <interpretationCode codeSystem ="local" code="" /> <referenceRange> <observationRange> <text>42-75</text> </observationRange> </ referenceRange> </observation> </component> <component> <observation moodCode="EVN" classCode="OBS"> <templateId root= "216.840.1.420399.10.20.22.4.2" /> <id nullFlavor="NA" /> < code codeSystem="local" code="736-9" displayName="Automated blood lymphocytes/ 100 leukocytes" /> <statusCode code="completed" /> < effectiveTime value="188738064613" /> <value unit="%" xsi:type="PQ " value="5" /> <interpretationCode codeSystem="local" code="" /> <referenceRange> <observationRange> <text>12-44</ text> </observationRange> </referenceRange> </ observation> </component> <component> <observation moodCode= "EVN" classCode="OBS"> <templateId root="2.16.840.1.244008.10..22.4.2 " /> <id nullFlavor="NA" /> <code codeSystem="local" code= "62036-0" displayName="Blood monocytes/100 leukocytes" /> <statusCode code="completed" /> <effectiveTime value="146141159289" /> < value unit="%" xsi:type="PQ" value="6" /> <referenceRange> <observationRange> <text>0-12</text> </ observationRange> </referenceRange> </observation> </ component> <component> <observation moodCode="EVN" classCode="OBS"> <templateId root="216.840.1.501064.10.20.22.4.2" /> <id nullFlavor="NA" /> <code codeSystem="local" code="713-8" displayName= "Automated blood eosinophils/100 leukocytes" /> <statusCode code= "completed" /> <effectiveTime value="985047181592" /> <value unit="%" xsi:type="PQ" value="1" /> <referenceRange> < observationRange> <text>0-10</text> </observationRange> </referenceRange> </observation> </component> < component> <observation moodCode="EVN" classCode="OBS"> < templateId root="2.16.840.1.257397.10.20.22.4.2" /> <id nullFlavor="NA " /> <code codeSystem="local" code="706-2" displayName="Automated blood basophils/100 leukocytes" /> <statusCode code="completed" /> <effectiveTime value="898688226498" /> <value unit="%" xsi: type="PQ" value="0" /> <referenceRange> <observationRange> <text>0-10</text> </observationRange> </ referenceRange> </observation> </component> <component> <observation moodCode="EVN" classCode="OBS"> <templateId root= "216.840.1.125340.10..4.2" /> <id nullFlavor="NA" /> < code codeSystem="local" code="751-8" displayName="Blood neutrophils automated count (number/volume)" /> <statusCode code="completed" /> < effectiveTime value="071866241790" /> <value unit="10*3" xsi:type="PQ" value="7.1" /> <referenceRange> <observationRange> <text>1.8-7.8</text> </observationRange> </ referenceRange> </observation> </component> <component> <observation moodCode="EVN" classCode="OBS"> <templateId root= "2.16.840.1.164742.10..22.4.2" /> <id nullFlavor="NA" /> < code codeSystem="local" code="731-0" displayName="Blood lymphocytes automated count (number/volume)" /> <statusCode code="completed" /> < effectiveTime value="548460169172" /> <value unit="10*3" xsi:type="PQ" value="0.4" /> <interpretationCode codeSystem="local" code="" /> <referenceRange> <observationRange> <text>1.0-4.0< /text> </observationRange> </referenceRange> </ observation> </component> <component> <observation moodCode= "EVN" classCode="OBS"> <templateId root="2.16.840.1.976198.10.20.22.4.2 " /> <id nullFlavor="NA" /> <code codeSystem="local" code="742 -7" displayName="Blood monocytes automated count (number/volume)" /> < statusCode code="completed" /> <effectiveTime value="" /> <value unit="10*3" xsi:type="PQ" value="0.5" /> < referenceRange> <observationRange> <text>0.0-1.0</text> </observationRange> </referenceRange> </observation > </component> <component> <observation moodCode="EVN" classCode="OBS"> <templateId root="2.16.840.1.820595.10.20.22.4.2" /> <id nullFlavor="NA" /> <code codeSystem="local" code="711-2" displayName="Automated eosinophil count" /> <statusCode code="completed " /> <effectiveTime value="444291792671" /> <value unit="10*3/ uL" xsi:type="PQ" value="0.1" /> <referenceRange> < observationRange> <text>0.0-0.3</text> </ observationRange> </referenceRange> </observation> </ component> <component> <observation moodCode="EVN" classCode="OBS"> <templateId root="2.16.840.1.797000.10.20.22.4.2" /> <id nullFlavor="NA" /> <code codeSystem="local" code="704-7" displayName= "Automated blood basophil count (count/volume)" /> <statusCode code= "completed" /> <effectiveTime value="608131792439" /> <value unit="10*3/uL" xsi:type="PQ" value="0.0" /> <referenceRange> <observationRange> <text>0.0-0.1</text> </ observationRange> </referenceRange> </observation> </ component> </organizer> </entry> <entry> <organizer moodCode="EVN" classCode="BATTERY"> <templateId root="2.16.840.1.620388.10.20.22.4.1" /> <id nullFlavor="NA" /> <code codeSystem="local" code="66553-9" displayName="PT panel in platelet poor plasma by coagulation assay" /> < statusCode code="completed" /> <component> <observation moodCode= "EVN" classCode="OBS"> <templateId root="2.16.840.1.528980.10.20.22.4.2 " /> <id nullFlavor="NA" /> <code codeSystem="local" code= "5902-2" displayName="Prothrombin time (PT) in platelet poor plasma by coagulation assay" /> <statusCode code="completed" /> < effectiveTime value="930725976357" /> <value unit="s" xsi:type="PQ" value="13.4" /> <referenceRange> <observationRange> <text>12.2-14.7</text> </observationRange> </ referenceRange> </observation> </component> <component> <observation moodCode="EVN" classCode="OBS"> <templateId root= "2.16.840.1.687865.10.20.22.4.2" /> <id nullFlavor="NA" /> < code codeSystem="local" code="30838-5" displayName="INR in platelet poor plasma or blood by coagulation assay" /> <statusCode code="completed" /> <effectiveTime value="523327785172" /> <value unit="" xsi:type="PQ " value="1.1" /> <referenceRange> <observationRange> <text>0.8-1.4</text> </observationRange> </ referenceRange> </observation> </component> </organizer> </entry > <entry> <organizer moodCode="EVN" classCode="BATTERY"> <templateId root="2.16.840.1.450149.10.20.22.4.1" /> <id nullFlavor="NA" /> <code codeSystem="local" code="92901-6" displayName="Comprehensive metabolic panel" / > <statusCode code="completed" /> <component> <observation moodCode="EVN" classCode="OBS"> <templateId root= "2.16.840.1.190965.10.20.22.4.2" /> <id nullFlavor="NA" /> < code codeSystem="local" code="2951-2" displayName="Serum or plasma sodium measurement (moles/volume)" /> <statusCode code="completed" /> <effectiveTime value="276761230797" /> <value unit="mmol/L" xsi:type= "PQ" value="138" /> <referenceRange> <observationRange> <text>135-145</text> </observationRange> </ referenceRange> </observation> </component> <component> <observation moodCode="EVN" classCode="OBS"> <templateId root= "2.16.840.1.124394.10..22.4.2" /> <id nullFlavor="NA" /> < code codeSystem="local" code="2823-" displayName="Serum or plasma potassium measurement (moles/volume)" /> <statusCode code="completed" /> <effectiveTime value="757971119516" /> <value unit="mmol/L" xsi:type= "PQ" value="3.5" /> <interpretationCode codeSystem="local" code="" / > <referenceRange> <observationRange> <text>3.6 -5.0</text> </observationRange> </referenceRange> </ observation> </component> <component> <observation moodCode= "EVN" classCode="OBS"> <templateId root="216.840.1.794459.10...4.2 " /> <id nullFlavor="NA" /> <code codeSystem="local" code= "" displayName="Serum or plasma chloride measurement (moles/volume)" /> <statusCode code="completed" /> <effectiveTime value= "734909017059" /> <value unit="mmol/L" xsi:type="PQ" value="108" /> <interpretationCode codeSystem="local" code="" /> < referenceRange> <observationRange> <text>98-107</text> </observationRange> </referenceRange> </observation> </component> <component> <observation moodCode="EVN" classCode ="OBS"> <templateId root="16.840.1.457806.10..22.4.2" /> < id nullFlavor="NA" /> <code codeSystem="local" code="2027-11" displayName="Carbon dioxide" /> <statusCode code="completed" /> <effectiveTime value="053429498940" /> <value unit="mmol/L" xsi:type ="PQ" value="20" /> <interpretationCode codeSystem="local" code="" / > <referenceRange> <observationRange> <text>21- 32</text> </observationRange> </referenceRange> </ observation> </component> <component> <observation moodCode= "EVN" classCode="OBS"> <templateId root="216.840.1.113383.10..22.4.2 " /> <id nullFlavor="NA" /> <code codeSystem="local" code= "80849-2" displayName="Serum or plasma anion gap determination (moles/volume)" / > <statusCode code="completed" /> <effectiveTime value= "019840776752" /> <value unit="mmol/L" xsi:type="PQ" value="10" /> <referenceRange> <observationRange> <text>5-14</ text> </observationRange> </referenceRange> </ observation> </component> <component> <observation moodCode= "EVN" classCode="OBS"> <templateId root="216.840.1.580411.10..22.4.2 " /> <id nullFlavor="NA" /> <code codeSystem="local" code= "3094-0" displayName="Serum or plasma urea nitrogen measurement (mass/volume)" / > <statusCode code="completed" /> <effectiveTime value= "564135066283" /> <value unit="mg/dL" xsi:type="PQ" value="11" /> <referenceRange> <observationRange> <text>7-18</ text> </observationRange> </referenceRange> </ observation> </component> <component> <observation moodCode= "EVN" classCode="OBS"> <templateId root="2.16.840.1.064878.10..22.4.2 " /> <id nullFlavor="NA" /> <code codeSystem="local" code= "2160-0" displayName="Serum or plasma creatinine measurement (mass/volume)" /> <statusCode code="completed" /> <effectiveTime value= "288587810523" /> <value unit="mg/dL" xsi:type="PQ" value="0.65" /> <referenceRange> <observationRange> <text>0.60- 1.30</text> </observationRange> </referenceRange> </ observation> </component> <component> <observation moodCode= "EVN" classCode="OBS"> <templateId root="16.840.1.425534.10..4.2 " /> <id nullFlavor="NA" /> <code codeSystem="local" code= "3097-3" displayName="Serum or plasma urea nitrogen/creatinine mass ratio" /> <statusCode code="completed" /> <effectiveTime value= "904292270159" /> <value unit="" xsi:type="PQ" value="17" /> < referenceRange> <observationRange> <text>NRG</text> </observationRange> </referenceRange> </observation> </component> <component> <observation moodCode="EVN" classCode= "OBS"> <templateId root="05.02.840.1.693989.10..22.4.2" /> < id nullFlavor="NA" /> <code codeSystem="local" code="48320-4" displayName="Serum or plasma creatinine measurement with calculation of estimated glomerular filtration rate" /> <statusCode code="completed" / > <effectiveTime value="707403028334" /> <value unit="" xsi: type="PQ" value=">" /> <referenceRange> <observationRange > <text>NRG</text> </observationRange> </ referenceRange> </observation> </component> <component> <observation moodCode="EVN" classCode="OBS"> <templateId root= "216.840.1.814776.10.20.22.4.2" /> <id nullFlavor="NA" /> < code codeSystem="local" code="2345-7" displayName="Serum or plasma glucose measurement (mass/volume)" /> <statusCode code="completed" /> <effectiveTime value="180619832701" /> <value unit="mg/dL" xsi:type="PQ " value="106" /> <interpretationCode codeSystem="local" code="" /> <referenceRange> <observationRange> <text>70-105 </text> </observationRange> </referenceRange> </ observation> </component> <component> <observation moodCode= "EVN" classCode="OBS"> <templateId root="05.02.840.1.451158.10..22.4.2 " /> <id nullFlavor="NA" /> <code codeSystem="local" code= "28035-2" displayName="Serum or plasma calcium measurement (mass/volume)" /> <statusCode code="completed" /> <effectiveTime value= "884057859320" /> <value unit="mg/dL" xsi:type="PQ" value="8.7" /> <referenceRange> <observationRange> <text>8.5-10.1 </text> </observationRange> </referenceRange> </ observation> </component> <component> <observation moodCode= "EVN" classCode="OBS"> <templateId root="216.840.1.573019.10.20.22.4.2 " /> <id nullFlavor="NA" /> <code codeSystem="local" code= "1974-04" displayName="Serum or plasma total bilirubin measurement (mass/volume) " /> <statusCode code="completed" /> <effectiveTime value= "659162025025" /> <value unit="mg/dL" xsi:type="PQ" value="0.9" /> <referenceRange> <observationRange> <text>0.1-1.0< /text> </observationRange> </referenceRange> </ observation> </component> <component> <observation moodCode= "EVN" classCode="OBS"> <templateId root="2.16.840.1.818482.10.20.22.4.2 " /> <id nullFlavor="NA" /> <code codeSystem="local" code= "67686" displayName="Serum or plasma alkaline phosphatase measurement ( enzymatic activity/volume)" /> <statusCode code="completed" /> <effectiveTime value="825355974293" /> <value unit="U/L" xsi:type="PQ " value="119" /> <referenceRange> <observationRange> <text>40-136</text> </observationRange> </ referenceRange> </observation> </component> <component> <observation moodCode="EVN" classCode="OBS"> <templateId root= "2.16.840.1.893708.10.20.22.4.2" /> <id nullFlavor="NA" /> < code codeSystem="local" code="1919-10" displayName="Serum or plasma aspartate aminotransferase measurement (enzymatic activity/volume)" /> < statusCode code="completed" /> <effectiveTime value="502873906860" /> <value unit="U/L" xsi:type="PQ" value="15" /> <referenceRange > <observationRange> <text>5-34</text> </ observationRange> </referenceRange> </observation> </ component> <component> <observation moodCode="EVN" classCode="OBS"> <templateId root="216.840.1.960187.10.20.22.4.2" /> <id nullFlavor="NA" /> <code codeSystem="local" code="1742-6" displayName= "Serum or plasma alanine aminotransferase measurement (enzymatic activity/volume )" /> <statusCode code="completed" /> <effectiveTime value= "931995711371" /> <value unit="U/L" xsi:type="PQ" value="12" /> <referenceRange> <observationRange> <text>0-55</text > </observationRange> </referenceRange> </observation > </component> <component> <observation moodCode="EVN" classCode="OBS"> <templateId root="16.840.1.180477.10..22.4.2" /> <id nullFlavor="NA" /> <code codeSystem="local" code="2885-2" displayName="Serum or plasma protein measurement (mass/volume)" /> < statusCode code="completed" /> <effectiveTime value="690335848219" /> <value unit="g/dL" xsi:type="PQ" value="6.3" /> < interpretationCode codeSystem="local" code="" /> <referenceRange> <observationRange> <text>6.4-8.2</text> </ observationRange> </referenceRange> </observation> </ component> <component> <observation moodCode="EVN" classCode="OBS"> <templateId root="16.840.1.963688.10..22.4.2" /> <id nullFlavor="NA" /> <code codeSystem="local" code="1751-7" displayName= "Serum or plasma albumin measurement (mass/volume)" /> <statusCode code ="completed" /> <effectiveTime value="620595646777" /> <value unit="g/dL" xsi:type="PQ" value="4.0" /> <referenceRange> < observationRange> <text>3.2-4.5</text> </ observationRange> </referenceRange> </observation> </ component> </organizer> </entry> <entry> <organizer moodCode="EVN" classCode="BATTERY"> <templateId root="16.840.1.083394.10..22.4.1" /> <id nullFlavor="NA" /> <code codeSystem="local" code="08812-2" displayName="Blood manual differential performed detection" /> <statusCode code="completed" /> <component> <observation moodCode="EVN" classCode="OBS"> <templateId root="216.840.1.615169.10..22.4.2" /> <id nullFlavor="NA" /> <code codeSystem="local" code="36309-4 " displayName="Blood monocytes/100 leukocytes" /> <statusCode code= "completed" /> <effectiveTime value="147089371035" /> <value unit="%" xsi:type="PQ" value="3" /> <referenceRange> < observationRange> <text>NRG</text> </observationRange> </referenceRange> </observation> </component> < component> <observation moodCode="EVN" classCode="OBS"> < templateId root="16.840.1.694808.10..22.4.2" /> <id nullFlavor="NA " /> <code codeSystem="local" code="769-0" displayName="Manual blood segmented neutrophils/100 leukocytes" /> <statusCode code="completed" / > <effectiveTime value="015518140226" /> <value unit="%" xsi:type="PQ" value="75" /> <referenceRange> < observationRange> <text>NRG</text> </observationRange> </referenceRange> </observation> </component> < component> <observation moodCode="EVN" classCode="OBS"> < templateId root="216.840.1.161612.10.20.22.4.2" /> <id nullFlavor="NA " /> <code codeSystem="local" code="02604-5" displayName="Blood band neutrophils/100 leukocytes" /> <statusCode code="completed" /> <effectiveTime value="879021951509" /> <value unit="%" xsi:type= "PQ" value="13" /> <referenceRange> <observationRange> <text>NRG</text> </observationRange> </ referenceRange> </observation> </component> <component> <observation moodCode="EVN" classCode="OBS"> <templateId root= "16.840.1.995779.10.20.22.4.2" /> <id nullFlavor="NA" /> < code codeSystem="local" code="737-7" displayName="Manual blood lymphocytes/100 leukocytes" /> <statusCode code="completed" /> <effectiveTime value="335969957345" /> <value unit="%" xsi:type="PQ" value="7" /> <referenceRange> <observationRange> <text>NRG< /text> </observationRange> </referenceRange> </ observation> </component> <component> <observation moodCode= "EVN" classCode="OBS"> <templateId root="16.840.1.618782.10.20.22.4.2 " /> <id nullFlavor="NA" /> <code codeSystem="local" code= "9727-9" displayName="Manual eosinophils/100 leukocytes in nose" /> < statusCode code="completed" /> <effectiveTime value="765628685542" /> <value unit="%" xsi:type="PQ" value="2" /> <referenceRange > <observationRange> <text>NRG</text> </ observationRange> </referenceRange> </observation> </ component> <component> <observation moodCode="EVN" classCode="OBS"> <templateId root="216.840.1.125868.10.20.22.4.2" /> <id nullFlavor="NA" /> <code codeSystem="local" code="707-0" displayName= "Manual blood basophils/100 leukocytes" /> <statusCode code="completed " /> <effectiveTime value="258923633668" /> <value unit="% " xsi:type="PQ" value="0" /> <referenceRange> < observationRange> <text>NRG</text> </observationRange> </referenceRange> </observation> </component> < component> <observation moodCode="EVN" classCode="OBS"> < templateId root="16.840.1.194495.10.20.22.4.2" /> <id nullFlavor="NA " /> <code codeSystem="local" code="6742-1" displayName="Blood erythrocyte morphology finding identification" /> <statusCode code= "completed" /> <effectiveTime value="837046763154" /> <value unit="" xsi:type="PQ" value="NORMAL" /> <referenceRange> < observationRange> <text>NRG</text> </observationRange> </referenceRange> </observation> </component> </ organizer> </entry> <entry> <organizer moodCode="EVN" classCode="BATTERY"> <templateId root="05.02.840.1.820059.10..22.4.1" /> <id nullFlavor= "NA" /> <code codeSystem="local" code="09703-5" displayName="Complete urinalysis with reflex to culture" /> <statusCode code="completed" /> <component> <observation moodCode="EVN" classCode="OBS"> < templateId root="840.1.643866.01.03.22.4.2" /> <id nullFlavor="NA " /> <code codeSystem="local" code="5778-6" displayName="Urine color determination" /> <statusCode code="completed" /> < effectiveTime value="529090275746" /> <value unit="" xsi:type="PQ" value="YELLOW" /> <referenceRange> <observationRange> <text>NRG</text> </observationRange> </ referenceRange> </observation> </component> <component> <observation moodCode="EVN" classCode="OBS"> <templateId root= "840.1.502982.01.03.22.4.2" /> <id nullFlavor="NA" /> < code codeSystem="local" code="51745-0" displayName="Urine clarity determination " /> <statusCode code="completed" /> <effectiveTime value= "967101560989" /> <value unit="" xsi:type="PQ" value="CLEAR" /> <referenceRange> <observationRange> <text>NRG</text> </observationRange> </referenceRange> </observation > </component> <component> <observation moodCode="EVN" classCode="OBS"> <templateId root="05.02.840.1.498283.10.22.4.2" /> <id nullFlavor="NA" /> <code codeSystem="local" code="5803-2" displayName="Urine pH measurement by test strip" /> <statusCode code= "completed" /> <effectiveTime value="403244305307" /> <value unit="" xsi:type="PQ" value="5" /> <referenceRange> < observationRange> <text>5-9</text> </observationRange> </referenceRange> </observation> </component> < component> <observation moodCode="EVN" classCode="OBS"> < templateId root="2.16.840.1.262455.10.20.22.4.2" /> <id nullFlavor="NA " /> <code codeSystem="local" code="5811-5" displayName="Specific gravity of urine by test strip" /> <statusCode code="completed" /> <effectiveTime value="524087845186" /> <value unit="" xsi:type= "PQ" value="1.020" /> <referenceRange> <observationRange> <text>1.016-1.022</text> </observationRange> </ referenceRange> </observation> </component> <component> <observation moodCode="EVN" classCode="OBS"> <templateId root= "2.16.840.1.387081.10.20.22.4.2" /> <id nullFlavor="NA" /> < code codeSystem="local" code="63244-4" displayName="Urine protein assay by test strip, semi-quantitative" /> <statusCode code="completed" /> < effectiveTime value="659239285926" /> <value unit="" xsi:type="PQ" value="2+" /> <interpretationCode codeSystem="local" code="*" /> <referenceRange> <observationRange> <text>NEGATIVE</ text> </observationRange> </referenceRange> </ observation> </component> <component> <observation moodCode= "EVN" classCode="OBS"> <templateId root="05.02.840.1.369476.10.20.22.4.2 " /> <id nullFlavor="NA" /> <code codeSystem="local" code= "80632-6" displayName="Urine glucose detection by automated test strip" /> <statusCode code="completed" /> <effectiveTime value="682550554076 " /> <value unit="" xsi:type="PQ" value="NEGATIVE" /> < referenceRange> <observationRange> <text>NEGATIVE</text > </observationRange> </referenceRange> </observation > </component> <component> <observation moodCode="EVN" classCode="OBS"> <templateId root="05.02.840.1.921997.10..22.4.2" /> <id nullFlavor="NA" /> <code codeSystem="local" code="77341-8 " displayName="Erythrocytes detection in urine sediment by light microscopy" /> <statusCode code="completed" /> <effectiveTime value= "367304084405" /> <value unit="" xsi:type="PQ" value="NEGATIVE" /> <referenceRange> <observationRange> <text>NEGATIVE </text> </observationRange> </referenceRange> </ observation> </component> <component> <observation moodCode= "EVN" classCode="OBS"> <templateId root="05.02.840.1.125236.10.20.22.4.2 " /> <id nullFlavor="NA" /> <code codeSystem="local" code= "47178-8" displayName="Urine ketones detection by automated test strip" /> <statusCode code="completed" /> <effectiveTime value="836130335062 " /> <value unit="" xsi:type="PQ" value="NEGATIVE" /> < referenceRange> <observationRange> <text>NEGATIVE</text > </observationRange> </referenceRange> </observation > </component> <component> <observation moodCode="EVN" classCode="OBS"> <templateId root="216.840.1.273715.10..22.4.2" /> <id nullFlavor="NA" /> <code codeSystem="local" code="5802-4" displayName="Urine nitrite detection by test strip" /> <statusCode code ="completed" /> <effectiveTime value="046829903379" /> <value unit="" xsi:type="PQ" value="NEGATIVE" /> <referenceRange> < observationRange> <text>NEGATIVE</text> </ observationRange> </referenceRange> </observation> </ component> <component> <observation moodCode="EVN" classCode="OBS"> <templateId root="2.840.1.632718.10..4.2" /> <id nullFlavor="NA" /> <code codeSystem="local" code="5770-3" displayName= "Urine total bilirubin detection by test strip" /> <statusCode code= "completed" /> <effectiveTime value="454780086050" /> <value unit="" xsi:type="PQ" value="NEGATIVE" /> <referenceRange> < observationRange> <text>NEGATIVE</text> </ observationRange> </referenceRange> </observation> </ component> <component> <observation moodCode="EVN" classCode="OBS"> <templateId root="216.840.1.066624.10...4.2" /> <id nullFlavor="NA" /> <code codeSystem="local" code="16585-5" displayName= "Urine urobilinogen measurement by automated test strip (mass/volume)" /> <statusCode code="completed" /> <effectiveTime value="119501338895 " /> <value unit="" xsi:type="PQ" value="NORMAL" /> < referenceRange> <observationRange> <text>NORMAL</text> </observationRange> </referenceRange> </observation> </component> <component> <observation moodCode="EVN" classCode ="OBS"> <templateId root="2.16.840.1.981485.10..4.2" /> < id nullFlavor="NA" /> <code codeSystem="local" code="5799-2" displayName="Urine leukocyte esterase detection by dipstick" /> < statusCode code="completed" /> <effectiveTime value="411490056267" /> <value unit="" xsi:type="PQ" value="1+" /> < interpretationCode codeSystem="local" code="*" /> <referenceRange> <observationRange> <text>NEGATIVE</text> </ observationRange> </referenceRange> </observation> </ component> <component> <observation moodCode="EVN" classCode="OBS"> <templateId root="216.840.1.699620.10.4.2" /> <id nullFlavor="NA" /> <code codeSystem="local" code="04443-8" displayName= "Automated urine sediment erythrocyte count by microscopy (number/high power field)" /> <statusCode code="completed" /> <effectiveTime value="841358687936" /> <value unit="" xsi:type="PQ" value="NONE" /> <referenceRange> <observationRange> <text>NRG</ text> </observationRange> </referenceRange> </ observation> </component> <component> <observation moodCode= "EVN" classCode="OBS"> <templateId root="2.16.840.1.708220.10..4.2 " /> <id nullFlavor="NA" /> <code codeSystem="local" code= "5821-4" displayName="Automated urine sediment leukocyte count by microscopy ( number/high power field)" /> <statusCode code="completed" /> < effectiveTime value="615494976782" /> <value unit="[HPF]" xsi:type="PQ " value="" /> <referenceRange> <observationRange> <text>NRG</text> </observationRange> </referenceRange> </observation> </component> <component> <observation moodCode="EVN" classCode="OBS"> <templateId root= "2.16.840.1.753257.10..4.2" /> <id nullFlavor="NA" /> < code codeSystem="local" code="44067-3" displayName="Bacteria detection in urine sediment by light microscopy" /> <statusCode code="completed" /> <effectiveTime value="249310452787" /> <value unit="" xsi:type="PQ " value="NONE" /> <referenceRange> <observationRange> <text>NRG</text> </observationRange> </ referenceRange> </observation> </component> <component> <observation moodCode="EVN" classCode="OBS"> <templateId root= "2.16.840.1.697860.10..22.4.2" /> <id nullFlavor="NA" /> < code codeSystem="local" code="35116-6" displayName="Squamous epithelial cells detection in urine sediment by light microscopy" /> <statusCode code= "completed" /> <effectiveTime value="506307401686" /> <value unit="" xsi:type="PQ" value="5-10" /> <referenceRange> < observationRange> <text>NRG</text> </observationRange> </referenceRange> </observation> </component> < component> <observation moodCode="EVN" classCode="OBS"> < templateId root="16.840.1.946665.10..22.4.2" /> <id nullFlavor="NA " /> <code codeSystem="local" code="46335-4" displayName="Crystals detection in urine sediment by light microscopy" /> <statusCode code= "completed" /> <effectiveTime value="938343244508" /> <value unit="" xsi:type="PQ" value="NONE" /> <referenceRange> < observationRange> <text>NRG</text> </observationRange> </referenceRange> </observation> </component> < component> <observation moodCode="EVN" classCode="OBS"> < templateId root="16.840.1.741556.10..4.2" /> <id nullFlavor="NA " /> <code codeSystem="local" code="40710-6" displayName="Casts detection in urine sediment by light microscopy" /> <statusCode code= "completed" /> <effectiveTime value="707423831285" /> <value unit="" xsi:type="PQ" value="NONE" /> <referenceRange> < observationRange> <text>NRG</text> </observationRange> </referenceRange> </observation> </component> < component> <observation moodCode="EVN" classCode="OBS"> < templateId root="16.840.1.987904.10..22.4.2" /> <id nullFlavor="NA " /> <code codeSystem="local" code="8247-9" displayName="Mucus detection in urine sediment by light microscopy" /> <statusCode code= "completed" /> <effectiveTime value="649941366964" /> <value unit="" xsi:type="PQ" value="NEGATIVE" /> <referenceRange> < observationRange> <text>NRG</text> </observationRange> </referenceRange> </observation> </component> < component> <observation moodCode="EVN" classCode="OBS"> < templateId root="16.840.1.449023.10.20.22.4.2" /> <id nullFlavor="NA " /> <code codeSystem="local" code="98611-2" displayName="Complete urinalysis with reflex to culture" /> <statusCode code="completed" /> <effectiveTime value="362390510787" /> <value unit="" xsi:type ="PQ" value="NO" /> <referenceRange> <observationRange> <text>NRG</text> </observationRange> </ referenceRange> </observation> </component> </organizer> </entry > <entry> <organizer moodCode="EVN" classCode="BATTERY"> <templateId root="05.02.840.1.116636.10.20.22.4.1" /> <id nullFlavor="NA" /> <code codeSystem="local" code="24221-3" displayName="Urine drug screening test" /> <statusCode code="completed" /> <component> <observation moodCode ="EVN" classCode="OBS"> <templateId root= "05.02.840.1.104143.10.20.22.4.2" /> <id nullFlavor="NA" /> < code codeSystem="local" code="40897-0" displayName="Urine phencyclidine detection by screening method" /> <statusCode code="completed" /> <effectiveTime value="512332163563" /> <value unit="" xsi:type="PQ " value="NEGATIVE" /> <referenceRange> <observationRange> <text>NEGATIVE</text> </observationRange> </ referenceRange> </observation> </component> <component> <observation moodCode="EVN" classCode="OBS"> <templateId root= "216.840.1.157198.10..4.2" /> <id nullFlavor="NA" /> < code codeSystem="local" code="94688-6" displayName="Urine benzodiazepines detection by screening method" /> <statusCode code="completed" /> <effectiveTime value="834534807183" /> <value unit="" xsi:type="PQ " value="POSITIVE" /> <interpretationCode codeSystem="local" code="*" / > <referenceRange> <observationRange> <text> NEGATIVE</text> </observationRange> </referenceRange> </observation> </component> <component> <observation moodCode ="EVN" classCode="OBS"> <templateId root= "216.840.1.843827.10.4.2" /> <id nullFlavor="NA" /> < code codeSystem="local" code="3397-7" displayName="Urine cocaine detection" /> <statusCode code="completed" /> <effectiveTime value= "775140713974" /> <value unit="" xsi:type="PQ" value="NEGATIVE" /> <referenceRange> <observationRange> <text>NEGATIVE </text> </observationRange> </referenceRange> </ observation> </component> <component> <observation moodCode= "EVN" classCode="OBS"> <templateId root="216.840.1.595177.10...4.2 " /> <id nullFlavor="NA" /> <code codeSystem="local" code= "75641-4" displayName="Urine amphetamines detection by screening method" /> <statusCode code="completed" /> <effectiveTime value= "903695952523" /> <value unit="" xsi:type="PQ" value="NEGATIVE" /> <referenceRange> <observationRange> <text>NEGATIVE </text> </observationRange> </referenceRange> </ observation> </component> <component> <observation moodCode= "EVN" classCode="OBS"> <templateId root="216.840.1.370721.10.20.22.4.2 " /> <id nullFlavor="NA" /> <code codeSystem="local" code= "59435-5" displayName="Urine methamphetamine detection by screening method" /> <statusCode code="completed" /> <effectiveTime value= "577376028057" /> <value unit="" xsi:type="PQ" value="NEGATIVE" /> <referenceRange> <observationRange> <text>NEGATIVE </text> </observationRange> </referenceRange> </ observation> </component> <component> <observation moodCode= "EVN" classCode="OBS"> <templateId root="05.02.840.1.908729.10.22.4.2 " /> <id nullFlavor="NA" /> <code codeSystem="local" code= "60543-8" displayName="Urine cannabinoids detection by screening method" /> <statusCode code="completed" /> <effectiveTime value= "208884977287" /> <value unit="" xsi:type="PQ" value="NEGATIVE" /> <referenceRange> <observationRange> <text>NEGATIVE </text> </observationRange> </referenceRange> </ observation> </component> <component> <observation moodCode= "EVN" classCode="OBS"> <templateId root="16.840.1.355882.10.20.22.4.2 " /> <id nullFlavor="NA" /> <code codeSystem="local" code= "21792-1" displayName="Urine opiates detection by screening method" /> <statusCode code="completed" /> <effectiveTime value="578399608578" /> <value unit="" xsi:type="PQ" value="NEGATIVE" /> < referenceRange> <observationRange> <text>NEGATIVE</text > </observationRange> </referenceRange> </observation > </component> <component> <observation moodCode="EVN" classCode="OBS"> <templateId root="216.840.1.355362.10..22.4.2" /> <id nullFlavor="NA" /> <code codeSystem="local" code="3377-9" displayName="Urine barbiturates detection" /> <statusCode code= "completed" /> <effectiveTime value="292810107845" /> <value unit="" xsi:type="PQ" value="NEGATIVE" /> <referenceRange> < observationRange> <text>NEGATIVE</text> </ observationRange> </referenceRange> </observation> </ component> <component> <observation moodCode="EVN" classCode="OBS"> <templateId root="05.02.840.1.367690.10...4.2" /> <id nullFlavor="NA" /> <code codeSystem="local" code="00559-0" displayName= "Screening urine tricyclic antidepressants detection" /> <statusCode code="completed" /> <effectiveTime value="763056073947" /> < value unit="" xsi:type="PQ" value="NEGATIVE" /> <referenceRange> <observationRange> <text>NEGATIVE</text> </ observationRange> </referenceRange> </observation> </ component> <component> <observation moodCode="EVN" classCode="OBS"> <templateId root="216.840.1.753128.10...4.2" /> <id nullFlavor="NA" /> <code codeSystem="local" code="94871-1" displayName= "Urine methadone detection by screening method" /> <statusCode code= "completed" /> <effectiveTime value="412500228546" /> <value unit="" xsi:type="PQ" value="NEGATIVE" /> <referenceRange> < observationRange> <text>NEGATIVE</text> </ observationRange> </referenceRange> </observation> </ component> <component> <observation moodCode="EVN" classCode="OBS"> <templateId root="2.16.840.1.124190.10.20.22.4.2" /> <id nullFlavor="NA" /> <code codeSystem="local" code="43542-6" displayName= "Urine oxycodone detection" /> <statusCode code="completed" /> <effectiveTime value="502048967238" /> <value unit="" xsi:type="PQ" value="NEGATIVE" /> <referenceRange> <observationRange> <text>NEGATIVE</text> </observationRange> </ referenceRange> </observation> </component> <component> <observation moodCode="EVN" classCode="OBS"> <templateId root= "2.16.840.1.608763.10.20.22.4.2" /> <id nullFlavor="NA" /> < code codeSystem="local" code="91582-9" displayName="Urine propoxyphene detection " /> <statusCode code="completed" /> <effectiveTime value= "531942230054" /> <value unit="" xsi:type="PQ" value="NEGATIVE" /> <referenceRange> <observationRange> <text>NEGATIVE </text> </observationRange> </referenceRange> </ observation> </component> </organizer> </entry> <entry> <organizer moodCode="EVN" classCode="BATTERY"> <templateId root= "216.840.1.325772.10...4.1" /> <id nullFlavor="NA" /> <code codeSystem="local" code="899949" displayName="STOOL (O T P)" /> < statusCode code="completed" /> <component> <observation moodCode= "EVN" classCode="OBS"> <templateId root="05.02.840.1.040493.01.03.22.4.2 " /> <id nullFlavor="NA" /> <code codeSystem="local" code= "190430" displayName="Ova + Parasite Exam" /> <statusCode code= "completed" /> <effectiveTime value="283913790058" /> <value unit="" xsi:type="PQ" value="Final report" /> <referenceRange> <observationRange> <text>NRG</text> </ observationRange> </referenceRange> </observation> </ component> <component> <observation moodCode="EVN" classCode="OBS"> <templateId root="05.02.840.1.741656.01.03.22.4.2" /> <id nullFlavor="NA" /> <code codeSystem="local" code="900312" displayName= "Result 1" /> <statusCode code="completed" /> <effectiveTime value="308935548545" /> <value unit="" xsi:type="PQ" value="" /> <referenceRange> <observationRange> <text>NRG</text > </observationRange> </referenceRange> </observation > </component> </organizer> </entry> <entry> <organizer moodCode= "EVN" classCode="BATTERY"> <templateId root="216.840.1.765360.01.03.22.4.1 " /> <id nullFlavor="NA" /> <code codeSystem="local" code="696400" displayName="Stool Culture" /> <statusCode code="completed" /> < component> <observation moodCode="EVN" classCode="OBS"> < templateId root="216.840.1.456495.10..22.4.2" /> <id nullFlavor="NA " /> <code codeSystem="local" code="061437" displayName="Stool Culture " /> <statusCode code="completed" /> <effectiveTime value= "179964840050" /> <value unit="" xsi:type="PQ" value="Note" /> <referenceRange> <observationRange> <text /> </observationRange> </referenceRange> </observation> </ component> </organizer> </entry> <entry> <organizer moodCode="EVN" classCode="BATTERY"> <templateId root="216.840.1.189321.10...4.1" /> <id nullFlavor="NA" /> <code codeSystem="local" code="922464" displayName="Ova + Parasite Exam" /> <statusCode code="completed" /> < component> <observation moodCode="EVN" classCode="OBS"> < templateId root="216.840.1.422540..22.4.2" /> <id nullFlavor="NA " /> <code codeSystem="local" code="622396" displayName="Ova + Parasite Exam" /> <statusCode code="completed" /> < effectiveTime value="570561273909" /> <value unit="" xsi:type="PQ" value="Note" /> <referenceRange> <observationRange> <text /> </observationRange> </referenceRange> </observation> </component> </organizer> </entry> <entry> < organizer moodCode="EVN" classCode="BATTERY"> <templateId root= "216.840.1.782579.10..4.1" /> <id nullFlavor="NA" /> <code codeSystem="local" code="584959" displayName="PATHOLOGY REPORT" /> < statusCode code="completed" /> <component> <observation moodCode= "EVN" classCode="OBS"> <templateId root="05.02.840.1.634966.01.03.22.4.2 " /> <id nullFlavor="NA" /> <code codeSystem="local" code= "913899" displayName="." /> <statusCode code="completed" /> < effectiveTime value="" /> <value unit="" xsi:type="PQ" value="" /> <referenceRange> <observationRange> <text>NRG</text> </observationRange> </referenceRange> </observation> </component> <component> <observation moodCode="EVN" classCode="OBS"> <templateId root= "05.02.840.1.916462.01.03.22.4.2" /> <id nullFlavor="NA" /> < code codeSystem="local" code="816430" displayName="." /> <statusCode code="completed" /> <effectiveTime value="" /> < value unit="" xsi:type="PQ" value="" /> <referenceRange> < observationRange> <text>NRG</text> </observationRange> </referenceRange> </observation> </component> < component> <observation moodCode="EVN" classCode="OBS"> < templateId root="16.840.1.419556.01.03.22.4.2" /> <id nullFlavor="NA " /> <code codeSystem="local" code="039679" displayName="." /> <statusCode code="completed" /> <effectiveTime value="" / > <value unit="" xsi:type="PQ" value="" /> <referenceRange> <observationRange> <text>NRG</text> </ observationRange> </referenceRange> </observation> </ component> <component> <observation moodCode="EVN" classCode="OBS"> <templateId root="05.02.840.1.426113.10.2022.4.2" /> <id nullFlavor="NA" /> <code codeSystem="local" code="147290" displayName= "." /> <statusCode code="completed" /> <effectiveTime value= "" /> <value unit="" xsi:type="PQ" value="" /> < referenceRange> <observationRange> <text>NRG</text> </observationRange> </referenceRange> </observation> </component> <component> <observation moodCode="EVN" classCode= "OBS"> <templateId root="05.02.840.1.819750.10.22.4.2" /> < id nullFlavor="NA" /> <code codeSystem="local" code="115541" displayName="." /> <statusCode code="completed" /> < effectiveTime value="" /> <value unit="" xsi:type="PQ" value="" /> <referenceRange> <observationRange> <text>NRG</text> </observationRange> </referenceRange> </observation> </component> <component> <observation moodCode="EVN" classCode="OBS"> <templateId root= "05.02.840.1.528456.01.03.22.4.2" /> <id nullFlavor="NA" /> < code codeSystem="local" code="791434" displayName="." /> <statusCode code="completed" /> <effectiveTime value="" /> < value unit="" xsi:type="PQ" value="" /> <referenceRange> < observationRange> <text>NRG</text> </observationRange> </referenceRange> </observation> </component> < component> <observation moodCode="EVN" classCode="OBS"> < templateId root="2.16.840.1.354139.01.03.22.4.2" /> <id nullFlavor="NA " /> <code codeSystem="local" code="908482" displayName="." /> <statusCode code="completed" /> <effectiveTime value="" / > <value unit="" xsi:type="PQ" value="" /> <referenceRange> <observationRange> <text>NRG</text> </ observationRange> </referenceRange> </observation> </ component> <component> <observation moodCode="EVN" classCode="OBS"> <templateId root="2.16.840.1.128324.01.03.22.4.2" /> <id nullFlavor="NA" /> <code codeSystem="local" code="814173" displayName= "." /> <statusCode code="completed" /> <effectiveTime value= "" /> <value unit="" xsi:type="PQ" value="Comment:" /> <referenceRange> <observationRange> <text>NRG</ text> </observationRange> </referenceRange> </ observation> </component> </organizer> </entry> <entry> <organizer moodCode="EVN" classCode="BATTERY"> <templateId root= "216.840.1.194377.10..4.1" /> <id nullFlavor="NA" /> <code codeSystem="local" code="465637" displayName="Pathology Report" /> < statusCode code="completed" /> <component> <observation moodCode= "EVN" classCode="OBS"> <templateId root="840.1.770094.01.03.22.4.2 " /> <id nullFlavor="NA" /> <code codeSystem="local" code= "784619" displayName="." /> <statusCode code="completed" /> < effectiveTime value="" /> <value unit="" xsi:type="PQ" value="Comment" /> <referenceRange> <observationRange> <text /> </observationRange> </referenceRange> </observation> </component> <component> <observation moodCode="EVN" classCode="OBS"> <templateId root= "840.1.718529.01.03.224.2" /> <id nullFlavor="NA" /> < code codeSystem="local" code="447497" displayName="." /> <statusCode code="completed" /> <effectiveTime value="" /> < value unit="" xsi:type="PQ" value="Comment" /> <referenceRange> <observationRange> <text /> </observationRange> </referenceRange> </observation> </component> <component > <observation moodCode="EVN" classCode="OBS"> <templateId root= "05.02.840.1.258372.01.03.22.4.2" /> <id nullFlavor="NA" /> < code codeSystem="local" code="701270" displayName="." /> <statusCode code="completed" /> <effectiveTime value="" /> < value unit="" xsi:type="PQ" value="Comment" /> <referenceRange> <observationRange> <text /> </observationRange> </referenceRange> </observation> </component> <component > <observation moodCode="EVN" classCode="OBS"> <templateId root= "16.840.1.651181.10.4.2" /> <id nullFlavor="NA" /> < code codeSystem="local" code="986101" displayName="." /> <statusCode code="completed" /> <effectiveTime value="" /> < value unit="" xsi:type="PQ" value="Comment:" /> <referenceRange> <observationRange> <text /> </observationRange> </referenceRange> </observation> </component> < component> <observation moodCode="EVN" classCode="OBS"> < templateId root="05.02.840.1.376139.01.03.224.2" /> <id nullFlavor="NA " /> <code codeSystem="local" code="750529" displayName="." /> <statusCode code="completed" /> <effectiveTime value="" / > <value unit="" xsi:type="PQ" value="Comment" /> < referenceRange> <observationRange> <text /> < /observationRange> </referenceRange> </observation> </ component> <component> <observation moodCode="EVN" classCode="OBS"> <templateId root="16.840.1.748062.01.03.22.4.2" /> <id nullFlavor="NA" /> <code codeSystem="local" code="971846" displayName= "." /> <statusCode code="completed" /> <effectiveTime value= "" /> <value unit="" xsi:type="PQ" value="Comment" /> <referenceRange> <observationRange> <text /> </observationRange> </referenceRange> </observation> </component> <component> <observation moodCode="EVN" classCode="OBS "> <templateId root="05.02.840.1.001876.1022.4.2" /> <id nullFlavor="NA" /> <code codeSystem="local" code="450579" displayName= "." /> <statusCode code="completed" /> <effectiveTime value= "" /> <value unit="" xsi:type="PQ" value="Comment" /> <referenceRange> <observationRange> <text /> </observationRange> </referenceRange> </observation> </component> <component> <observation moodCode="EVN" classCode="OBS "> <templateId root="05.02.840.1.636697.01.03.22.4.2" /> <id nullFlavor="NA" /> <code codeSystem="local" code="114475" displayName= "." /> <statusCode code="completed" /> <effectiveTime value= "" /> <value unit="" xsi:type="PQ" value="Comment" /> <referenceRange> <observationRange> <text /> </observationRange> </referenceRange> </observation> </component> </organizer> </entry> <entry> <organizer moodCode="EVN" classCode="BATTERY"> <templateId root="05.02.840.1.203026.102022.4.1" /> <id nullFlavor="NA" /> <code codeSystem="local" code="56631-9" displayName="Complete urinalysis with reflex to culture" /> <statusCode code="completed" /> <component> <observation moodCode="EVN" classCode="OBS"> <templateId root="216.840.1.012324.10.4.2" /> <id nullFlavor="NA" /> <code codeSystem="local" code="5778-6" displayName="Urine color determination" /> <statusCode code="completed " /> <effectiveTime value="922905901720" /> <value unit="" xsi :type="PQ" value="YELLOW" /> <referenceRange> < observationRange> <text>NRG</text> </observationRange> </referenceRange> </observation> </component> < component> <observation moodCode="EVN" classCode="OBS"> < templateId root="05.02.840.1.833974.01.03.22.4.2" /> <id nullFlavor="NA " /> <code codeSystem="local" code="76619-2" displayName="Urine clarity determination" /> <statusCode code="completed" /> < effectiveTime value="" /> <value unit="" xsi:type="PQ" value="CLEAR" /> <referenceRange> <observationRange> <text>NRG</text> </observationRange> </referenceRange > </observation> </component> <component> <observation moodCode="EVN" classCode="OBS"> <templateId root= "16.840.1.880905.22.4.2" /> <id nullFlavor="NA" /> < code codeSystem="local" code="5803-2" displayName="Urine pH measurement by test strip" /> <statusCode code="completed" /> <effectiveTime value ="" /> <value unit="" xsi:type="PQ" value="5" /> < referenceRange> <observationRange> <text>5-9</text> </observationRange> </referenceRange> </observation> </component> <component> <observation moodCode="EVN" classCode= "OBS"> <templateId root="05.02.840.1.383255.10.20.22.4.2" /> < id nullFlavor="NA" /> <code codeSystem="local" code="5811-5" displayName="Specific gravity of urine by test strip" /> <statusCode code="completed" /> <effectiveTime value="678969488760" /> < value unit="" xsi:type="PQ" value="1.020" /> <referenceRange> <observationRange> <text>1.016-1.022</text> </ observationRange> </referenceRange> </observation> </ component> <component> <observation moodCode="EVN" classCode="OBS"> <templateId root="05.02.840.1.021474.10..22.4.2" /> <id nullFlavor="NA" /> <code codeSystem="local" code="77370-2" displayName= "Urine protein assay by test strip, semi-quantitative" /> <statusCode code="completed" /> <effectiveTime value="658214726463" /> < value unit="" xsi:type="PQ" value="1+" /> <interpretationCode codeSystem="local" code="*" /> <referenceRange> < observationRange> <text>NEGATIVE</text> </ observationRange> </referenceRange> </observation> </ component> <component> <observation moodCode="EVN" classCode="OBS"> <templateId root="05.02.840.1.817735.10.20.22.4.2" /> <id nullFlavor="NA" /> <code codeSystem="local" code="39898-3" displayName= "Urine glucose detection by automated test strip" /> <statusCode code= "completed" /> <effectiveTime value="737664721888" /> <value unit="" xsi:type="PQ" value="NEGATIVE" /> <referenceRange> < observationRange> <text>NEGATIVE</text> </ observationRange> </referenceRange> </observation> </ component> <component> <observation moodCode="EVN" classCode="OBS"> <templateId root="2.16.840.1.618058.10.20.22.4.2" /> <id nullFlavor="NA" /> <code codeSystem="local" code="20676-4" displayName= "Erythrocytes detection in urine sediment by light microscopy" /> < statusCode code="completed" /> <effectiveTime value="766850798658" /> <value unit="" xsi:type="PQ" value="2+" /> < interpretationCode codeSystem="local" code="*" /> <referenceRange> <observationRange> <text>NEGATIVE</text> </ observationRange> </referenceRange> </observation> </ component> <component> <observation moodCode="EVN" classCode="OBS"> <templateId root="2.16.840.1.677653.10.20.22.4.2" /> <id nullFlavor="NA" /> <code codeSystem="local" code="08851-5" displayName= "Urine ketones detection by automated test strip" /> <statusCode code= "completed" /> <effectiveTime value="809713439000" /> <value unit="" xsi:type="PQ" value="NEGATIVE" /> <referenceRange> < observationRange> <text>NEGATIVE</text> </ observationRange> </referenceRange> </observation> </ component> <component> <observation moodCode="EVN" classCode="OBS"> <templateId root="216.840.1.166120.10.20.22.4.2" /> <id nullFlavor="NA" /> <code codeSystem="local" code="5802-4" displayName= "Urine nitrite detection by test strip" /> <statusCode code="completed " /> <effectiveTime value="739976412408" /> <value unit="" xsi :type="PQ" value="POSITIVE" /> <interpretationCode codeSystem="local" code="*" /> <referenceRange> <observationRange> <text>NEGATIVE</text> </observationRange> </referenceRange > </observation> </component> <component> <observation moodCode="EVN" classCode="OBS"> <templateId root= "216.840.1.963873.10..4.2" /> <id nullFlavor="NA" /> < code codeSystem="local" code="5770-3" displayName="Urine total bilirubin detection by test strip" /> <statusCode code="completed" /> < effectiveTime value="383699905563" /> <value unit="" xsi:type="PQ" value="NEGATIVE" /> <referenceRange> <observationRange> <text>NEGATIVE</text> </observationRange> </ referenceRange> </observation> </component> <component> <observation moodCode="EVN" classCode="OBS"> <templateId root= "16.840.1.449206.10..22.4.2" /> <id nullFlavor="NA" /> < code codeSystem="local" code="13192-6" displayName="Urine urobilinogen measurement by automated test strip (mass/volume)" /> <statusCode code= "completed" /> <effectiveTime value="455720184514" /> <value unit="" xsi:type="PQ" value="NORMAL" /> <referenceRange> < observationRange> <text>NORMAL</text> </observationRange > </referenceRange> </observation> </component> < component> <observation moodCode="EVN" classCode="OBS"> < templateId root="05.02.840.1.279002.10..22.4.2" /> <id nullFlavor="NA " /> <code codeSystem="local" code="5799-2" displayName="Urine leukocyte esterase detection by dipstick" /> <statusCode code= "completed" /> <effectiveTime value="312297742178" /> <value unit="" xsi:type="PQ" value="3+" /> <interpretationCode codeSystem= "local" code="*" /> <referenceRange> <observationRange> <text>NEGATIVE</text> </observationRange> </ referenceRange> </observation> </component> <component> <observation moodCode="EVN" classCode="OBS"> <templateId root= "05.02.840.1.432383.10..4.2" /> <id nullFlavor="NA" /> < code codeSystem="local" code="06010-7" displayName="Automated urine sediment erythrocyte count by microscopy (number/high power field)" /> < statusCode code="completed" /> <effectiveTime value="116475208792" /> <value unit="[HPF]" xsi:type="PQ" value="" /> < interpretationCode codeSystem="local" code="*" /> <referenceRange> <observationRange> <text>NRG</text> </ observationRange> </referenceRange> </observation> </ component> <component> <observation moodCode="EVN" classCode="OBS"> <templateId root="05.02.840.1.957346.10.22.4.2" /> <id nullFlavor="NA" /> <code codeSystem="local" code="5821-4" displayName= "Automated urine sediment leukocyte count by microscopy (number/high power field )" /> <statusCode code="completed" /> <effectiveTime value= "429674491859" /> <value unit="[HPF]" xsi:type="PQ" value=">" /> <interpretationCode codeSystem="local" code="*" /> < referenceRange> <observationRange> <text>NRG</text> </observationRange> </referenceRange> </observation> </component> <component> <observation moodCode="EVN" classCode= "OBS"> <templateId root="216.840.1.880008.10..22.4.2" /> < id nullFlavor="NA" /> <code codeSystem="local" code="20872-9" displayName="Bacteria detection in urine sediment by light microscopy" /> <statusCode code="completed" /> <effectiveTime value="056634708296 " /> <value unit="" xsi:type="PQ" value="LARGE" /> < interpretationCode codeSystem="local" code="*" /> <referenceRange> <observationRange> <text>NRG</text> </ observationRange> </referenceRange> </observation> </ component> <component> <observation moodCode="EVN" classCode="OBS"> <templateId root="216.840.1.066882.10.20.22.4.2" /> <id nullFlavor="NA" /> <code codeSystem="local" code="24598-4" displayName= "Squamous epithelial cells detection in urine sediment by light microscopy" /> <statusCode code="completed" /> <effectiveTime value= "397077420537" /> <value unit="" xsi:type="PQ" value="5-10" /> <referenceRange> <observationRange> <text>NRG</text> </observationRange> </referenceRange> </observation> </component> <component> <observation moodCode="EVN" classCode ="OBS"> <templateId root="216.840.1.054929.10.20.22.4.2" /> < id nullFlavor="NA" /> <code codeSystem="local" code="52378-9" displayName="Crystals detection in urine sediment by light microscopy" /> <statusCode code="completed" /> <effectiveTime value="699435854080 " /> <value unit="" xsi:type="PQ" value="NONE" /> < referenceRange> <observationRange> <text>NRG</text> </observationRange> </referenceRange> </observation> </component> <component> <observation moodCode="EVN" classCode= "OBS"> <templateId root="05.02.840.1.101716.10..22.4.2" /> < id nullFlavor="NA" /> <code codeSystem="local" code="92454-0" displayName="Casts detection in urine sediment by light microscopy" /> <statusCode code="completed" /> <effectiveTime value="167719068855" /> <value unit="" xsi:type="PQ" value="NONE" /> <referenceRange > <observationRange> <text>NRG</text> </ observationRange> </referenceRange> </observation> </ component> <component> <observation moodCode="EVN" classCode="OBS"> <templateId root="16.840.1.645770.10.20.22.4.2" /> <id nullFlavor="NA" /> <code codeSystem="local" code="8247-9" displayName= "Mucus detection in urine sediment by light microscopy" /> <statusCode code="completed" /> <effectiveTime value="800392516442" /> < value unit="" xsi:type="PQ" value="NEGATIVE" /> <referenceRange> <observationRange> <text>NRG</text> </ observationRange> </referenceRange> </observation> </ component> <component> <observation moodCode="EVN" classCode="OBS"> <templateId root="05.02.840.1.144804.01.03.22.4.2" /> <id nullFlavor="NA" /> <code codeSystem="local" code="69740-4" displayName= "Complete urinalysis with reflex to culture" /> <statusCode code= "completed" /> <effectiveTime value="236963884205" /> <value unit="" xsi:type="PQ" value="YES" /> <referenceRange> < observationRange> <text>NRG</text> </observationRange> </referenceRange> </observation> </component> </ organizer> </entry> <entry> <organizer moodCode="EVN" classCode="BATTERY"> <templateId root="05.02.840.1.630283.01.03.22.4.1" /> <id nullFlavor= "NA" /> <code codeSystem="local" code="630-4" displayName="Bacterial urine culture" /> <statusCode code="completed" /> <component> < observation moodCode="EVN" classCode="OBS"> <templateId root= "05.02.840.1.060861.10.4.2" /> <id nullFlavor="NA" /> < code codeSystem="local" code="630-4" displayName="Bacterial urine culture" /> <statusCode code="completed" /> <effectiveTime value= "408497262370" /> <value unit="" xsi:type="PQ" value="180783026" /> <referenceRange> <observationRange> <text>NRG</ text> </observationRange> </referenceRange> </ observation> </component> <component> <observation moodCode= "EVN" classCode="OBS"> <templateId root="216.840.1.146756.10.20.22.4.2 " /> <id nullFlavor="NA" /> <code codeSystem="local" code="CC " displayName="COLONY COUNT" /> <statusCode code="completed" /> <effectiveTime value="153928288990" /> <value unit="" xsi:type="PQ" value=">100,000/ML" /> <referenceRange> <observationRange > <text>NRG</text> </observationRange> </ referenceRange> </observation> </component> <component> <observation moodCode="EVN" classCode="OBS"> <templateId root= "216.840.1.765747.10..22.4.2" /> <id nullFlavor="NA" /> < code codeSystem="local" code="FTXENTRY" displayName="FTX;REPORTABLE" /> <statusCode code="completed" /> <effectiveTime value="520127341218" / > <value unit="" xsi:type="PQ" value="SENSITIVITY REPORTED 12/20/16 8:20 " /> <referenceRange> <observationRange> <text> NRG</text> </observationRange> </referenceRange> </ observation> </component> </organizer> </entry> <entry> <organizer moodCode="EVN" classCode="BATTERY"> <templateId root= "216.840.1.367949.10.20.22.4.1" /> <id nullFlavor="NA" /> <code codeSystem="local" code="71090-7" displayName="Bacterial susceptibility panel" / > <statusCode code="completed" /> <component> <observation moodCode="EVN" classCode="OBS"> <templateId root= "16.840.1.654015.10.22.4.2" /> <id nullFlavor="NA" /> < code codeSystem="local" code="267-5" displayName="Gentamicin susceptibility test by minimum inhibitory concentration" /> <statusCode code= "completed" /> <effectiveTime value="010861193043" /> <value unit="" xsi:type="PQ" value="<=" /> <interpretationCode codeSystem= "local" code="*" /> <referenceRange> <observationRange> <text>NRG</text> </observationRange> </ referenceRange> </observation> </component> <component> <observation moodCode="EVN" classCode="OBS"> <templateId root= "05.02.840.1.903930.10.4.2" /> <id nullFlavor="NA" /> < code codeSystem="local" code="516-5" displayName="Trimethoprim/sulfamethoxazole susceptibility test by minimum inhibitoryconcentration" /> <statusCode code="completed" /> <effectiveTime value="308665395465" /> < value unit="" xsi:type="PQ" value="<=" /> <interpretationCode codeSystem="local" code="*" /> <referenceRange> < observationRange> <text>NRG</text> </observationRange> </referenceRange> </observation> </component> < component> <observation moodCode="EVN" classCode="OBS"> < templateId root="16.840.1.828709.10.2022.4.2" /> <id nullFlavor="NA " /> <code codeSystem="local" code="28-1" displayName="Ampicillin susceptibility test by minimum inhibitory concentration" /> < statusCode code="completed" /> <effectiveTime value="466017636033" /> <value unit="" xsi:type="PQ" value="<=" /> < interpretationCode codeSystem="local" code="*" /> <referenceRange> <observationRange> <text>NRG</text> </ observationRange> </referenceRange> </observation> </ component> <component> <observation moodCode="EVN" classCode="OBS"> <templateId root="2.16.840.1.546410.10..22.4.2" /> <id nullFlavor="NA" /> <code codeSystem="local" code="508-2" displayName= "Tobramycin susceptibility test by minimum inhibitory concentration" /> <statusCode code="completed" /> <effectiveTime value="041811880609" / > <value unit="" xsi:type="PQ" value="<=" /> < interpretationCode codeSystem="local" code="*" /> <referenceRange> <observationRange> <text>NRG</text> </ observationRange> </referenceRange> </observation> </ component> <component> <observation moodCode="EVN" classCode="OBS"> <templateId root="2.16.840.1.078368.10..22.4.2" /> <id nullFlavor="NA" /> <code codeSystem="local" code="76-0" displayName= "Cefazolin susceptibility test by minimum inhibitory concentration" /> <statusCode code="completed" /> <effectiveTime value="868165930773" /> <value unit="" xsi:type="PQ" value="<=" /> < interpretationCode codeSystem="local" code="*" /> <referenceRange> <observationRange> <text>NRG</text> </ observationRange> </referenceRange> </observation> </ component> <component> <observation moodCode="EVN" classCode="OBS"> <templateId root="16.840.1.936283.10..4.2" /> <id nullFlavor="NA" /> <code codeSystem="local" code="141-2" displayName= "Ceftriaxone susceptibility test by minimum inhibitory concentration" /> <statusCode code="completed" /> <effectiveTime value="942011559153" /> <value unit="" xsi:type="PQ" value="<=" /> < interpretationCode codeSystem="local" code="*" /> <referenceRange> <observationRange> <text>NRG</text> </ observationRange> </referenceRange> </observation> </ component> <component> <observation moodCode="EVN" classCode="OBS"> <templateId root="05.02.840.1.592085.10..4.2" /> <id nullFlavor="NA" /> <code codeSystem="local" code="32-3" displayName= "Ampicillin/sulbactam susceptibility test by minimum inhibitory concentration" / > <statusCode code="completed" /> <effectiveTime value= "338580225216" /> <value unit="" xsi:type="PQ" value="<=" /> <interpretationCode codeSystem="local" code="*" /> <referenceRange> <observationRange> <text>NRG</text> </ observationRange> </referenceRange> </observation> </ component> <component> <observation moodCode="EVN" classCode="OBS"> <templateId root="16.840.1.336938.10.20..4.2" /> <id nullFlavor="NA" /> <code codeSystem="local" code="412-7" displayName= "Piperacillin/tazobactam susceptibility test by minimum inhibitory concentration " /> <statusCode code="completed" /> <effectiveTime value= "506395028509" /> <value unit="" xsi:type="PQ" value="<=" /> <interpretationCode codeSystem="local" code="*" /> <referenceRange> <observationRange> <text>NRG</text> </ observationRange> </referenceRange> </observation> </ component> <component> <observation moodCode="EVN" classCode="OBS"> <templateId root="2.16.840.1.858278.10..22.4.2" /> <id nullFlavor="NA" /> <code codeSystem="local" code="185-9" displayName= "Ciprofloxacin susceptibility test by minimum inhibitory concentration" /> <statusCode code="completed" /> <effectiveTime value="836974313621 " /> <value unit="" xsi:type="PQ" value="<=" /> < interpretationCode codeSystem="local" code="*" /> <referenceRange> <observationRange> <text>NRG</text> </ observationRange> </referenceRange> </observation> </ component> <component> <observation moodCode="EVN" classCode="OBS"> <templateId root="2.16.840.1.336367.10..22.4.2" /> <id nullFlavor="NA" /> <code codeSystem="local" code="6652-2" displayName= "Meropenem susceptibility test by minimum inhibitory concentration" /> <statusCode code="completed" /> <effectiveTime value="904303409082" /> <value unit="" xsi:type="PQ" value="<=" /> < interpretationCode codeSystem="local" code="*" /> <referenceRange> <observationRange> <text>NRG</text> </ observationRange> </referenceRange> </observation> </ component> <component> <observation moodCode="EVN" classCode="OBS"> <templateId root="05.02.840.1.044155.10.20.22.4.2" /> <id nullFlavor="NA" /> <code codeSystem="local" code="363-2" displayName= "Nitrofurantoin susceptibility test by minimum inhibitory concentration" /> <statusCode code="completed" /> <effectiveTime value= "118567168640" /> <value unit="" xsi:type="PQ" value="<=" /> <interpretationCode codeSystem="local" code="*" /> <referenceRange> <observationRange> <text>NRG</text> </ observationRange> </referenceRange> </observation> </ component> <component> <observation moodCode="EVN" classCode="OBS"> <templateId root="05.02.840.1.003907.10..22.4.2" /> <id nullFlavor="NA" /> <code codeSystem="local" code="44-8" displayName= "Aztreonam susceptibility test by minimum inhibitory concentration" /> <statusCode code="completed" /> <effectiveTime value="352421628048" /> <value unit="" xsi:type="PQ" value="<=" /> < interpretationCode codeSystem="local" code="*" /> <referenceRange> <observationRange> <text>NRG</text> </ observationRange> </referenceRange> </observation> </ component> <component> <observation moodCode="EVN" classCode="OBS"> <templateId root="05.02.840.1.575729.10.20.22.4.2" /> <id nullFlavor="NA" /> <code codeSystem="local" code="6984-9" displayName= "Extended spectrum beta lactamase (ESBL) producing bacteria susceptibility test by minimum inhibitory concentration" /> <statusCode code="completed" / > <effectiveTime value="360022925383" /> <value unit="" xsi: type="PQ" value="-" /> <referenceRange> <observationRange> <text>NRG</text> </observationRange> </ referenceRange> </observation> </component> </organizer> </entry > <entry> <organizer moodCode="EVN" classCode="BATTERY"> <templateId root="216.840.1.804937.10.20.22.4.1" /> <id nullFlavor="NA" /> <code codeSystem="local" code="938613" displayName="HSV 1/2 ANTIBODY IgM" /> < statusCode code="completed" /> <component> <observation moodCode= "EVN" classCode="OBS"> <templateId root="216.840.1.402923.10.20.22.4.2 " /> <id nullFlavor="NA" /> <code codeSystem="local" code= "042792" displayName="HSV 1 IgM Antibodies" /> <statusCode code= "completed" /> <effectiveTime value="715790126192" /> <value unit="titer" xsi:type="PQ" value="<1:10" /> <referenceRange> <observationRange> <text><1:10</text> </ observationRange> </referenceRange> </observation> </ component> <component> <observation moodCode="EVN" classCode="OBS"> <templateId root="216.840.1.097771.10.20.22.4.2" /> <id nullFlavor="NA" /> <code codeSystem="local" code="313195" displayName= "HSV 2 IgM Antibodies" /> <statusCode code="completed" /> < effectiveTime value="514469592211" /> <value unit="titer" xsi:type="PQ " value="<1:10" /> <referenceRange> <observationRange> <text><1:10</text> </observationRange> </ referenceRange> </observation> </component> </organizer> </entry > <entry> <organizer moodCode="EVN" classCode="BATTERY"> <templateId root="216.840.1.246847.10.22.4.1" /> <id nullFlavor="NA" /> <code codeSystem="local" code="442856" displayName="CULTURE, GENITAL" /> < statusCode code="completed" /> <component> <observation moodCode= "EVN" classCode="OBS"> <templateId root="16.840.1.903019.10.4.2 " /> <id nullFlavor="NA" /> <code codeSystem="local" code= "251198" displayName="Genital Culture, Routine" /> <statusCode code= "completed" /> <effectiveTime value="983511216406" /> <value unit="" xsi:type="PQ" value="Final report" /> <interpretationCode codeSystem="local" code="*" /> <referenceRange> < observationRange> <text>NRG</text> </observationRange> </referenceRange> </observation> </component> < component> <observation moodCode="EVN" classCode="OBS"> < templateId root="16.840.1.869507.10.4.2" /> <id nullFlavor="NA " /> <code codeSystem="local" code="871693" displayName="Result 1" /> <statusCode code="completed" /> <effectiveTime value= "901671111266" /> <value unit="" xsi:type="PQ" value="" /> < interpretationCode codeSystem="local" code="*" /> <referenceRange> <observationRange> <text>NRG</text> </ observationRange> </referenceRange> </observation> </ component> <component> <observation moodCode="EVN" classCode="OBS"> <templateId root="840.1.138594.01.03.22.4.2" /> <id nullFlavor="NA" /> <code codeSystem="local" code="359810" displayName= "Result 2" /> <statusCode code="completed" /> <effectiveTime value="756942739476" /> <value unit="" xsi:type="PQ" value="" /> <referenceRange> <observationRange> <text>NRG</text > </observationRange> </referenceRange> </observation > </component> </organizer> </entry> <entry> <organizer moodCode= "EVN" classCode="BATTERY"> <templateId root="840.1.002194.01.03.22.4.1 " /> <id nullFlavor="NA" /> <code codeSystem="local" code="843568" displayName="CULTURE, URINE" /> <statusCode code="completed" /> < component> <observation moodCode="EVN" classCode="OBS"> < templateId root="05.02.840.1.155479.10.4.2" /> <id nullFlavor="NA " /> <code codeSystem="local" code="660342" displayName="Urine Culture , Routine" /> <statusCode code="completed" /> <effectiveTime value="087016692075" /> <value unit="" xsi:type="PQ" value="Final report" /> <interpretationCode codeSystem="local" code="*" /> <referenceRange> <observationRange> <text>NRG</text> </observationRange> </referenceRange> </observation> </component> <component> <observation moodCode="EVN" classCode= "OBS"> <templateId root="216.840.1.747642.10..4.2" /> < id nullFlavor="NA" /> <code codeSystem="local" code="052315" displayName="Result 1" /> <statusCode code="completed" /> < effectiveTime value="136124988431" /> <value unit="" xsi:type="PQ" value="Klebsiella oxytoca" /> <interpretationCode codeSystem="local" code="*" /> <referenceRange> <observationRange> <text>NRG</text> </observationRange> </referenceRange> </observation> </component> <component> <observation moodCode="EVN" classCode="OBS"> <templateId root= "05.02.840.1.296184.01.03.22.4.2" /> <id nullFlavor="NA" /> < code codeSystem="local" code="570219" displayName="Antimicrobial Susceptibility " /> <statusCode code="completed" /> <effectiveTime value= "296227395490" /> <value unit="" xsi:type="PQ" value="" /> < referenceRange> <observationRange> <text>NRG</text> </observationRange> </referenceRange> </observation> </component> </organizer> </entry> <entry> <organizer moodCode="EVN" classCode="BATTERY"> <templateId root="216.840.1.666859.10...4.1" /> <id nullFlavor="NA" /> <code codeSystem="local" code="CumulativePDF" displayName="PDF Report" /> <statusCode code="completed" /> <component > <observation moodCode="EVN" classCode="OBS"> <templateId root= "16.840.1.741056.10.22.4.2" /> <id nullFlavor="NA" /> < code codeSystem="local" code="CumulativePDF" displayName="PDF Report1" /> <statusCode code="completed" /> <effectiveTime value="494604701386 " /> <value unit="" xsi:type="PQ" value="LCLS" /> < referenceRange> <observationRange> <text>NRG</text> </observationRange> </referenceRange> </observation> </component> </organizer> </entry> <entry> <organizer moodCode="EVN" classCode="BATTERY"> <templateId root="05.02.840.1.891809.10..4.1" /> <id nullFlavor="NA" /> <code codeSystem="local" code="259851" displayName="HSV 1 and 2-Specific Ab, IgG" /> <statusCode code="completed" /> <component> <observation moodCode="EVN" classCode="OBS"> <templateId root="16.840.1.343197.10.22.4.2" /> <id nullFlavor= "NA" /> <code codeSystem="local" code="208094" displayName="HSV 1 IgG, Type Spec" /> <statusCode code="completed" /> <effectiveTime value="977734890138" /> <value unit="index" xsi:type="PQ" value="12.80 " /> <interpretationCode codeSystem="local" code="H" /> < referenceRange> <observationRange> <text>0.00-0.90</text > </observationRange> </referenceRange> </observation > </component> <component> <observation moodCode="EVN" classCode="OBS"> <templateId root="16.840.1.050007.10.20.22.4.2" /> <id nullFlavor="NA" /> <code codeSystem="local" code="209802" displayName="HSV 2 IgG, Type Spec" /> <statusCode code="completed" /> <effectiveTime value="144988361133" /> <value unit="index" xsi :type="PQ" value="3.43" /> <interpretationCode codeSystem="local" code= "H" /> <referenceRange> <observationRange> < text>0.00-0.90</text> </observationRange> </referenceRange> </observation> </component> </organizer> </entry> <entry> < organizer moodCode="EVN" classCode="BATTERY"> <templateId root= "16.840.1.260697.10..22.4.1" /> <id nullFlavor="NA" /> <code codeSystem="local" code="014924" displayName="HSV 1 and 2 IgM Abs, Indirect" /> <statusCode code="completed" /> <component> <observation moodCode="EVN" classCode="OBS"> <templateId root= "16.840.1.230545.10.20.22.4.2" /> <id nullFlavor="NA" /> < code codeSystem="local" code="463683" displayName="HSV 1 IgM Antibodies" /> <statusCode code="completed" /> <effectiveTime value= "951483109744" /> <value unit="titer" xsi:type="PQ" value="<1:10" / > <referenceRange> <observationRange> <text>&lt ;1:10</text> </observationRange> </referenceRange> </ observation> </component> <component> <observation moodCode= "EVN" classCode="OBS"> <templateId root="2.16.840.1.394496.10..22.4.2 " /> <id nullFlavor="NA" /> <code codeSystem="local" code= "721454" displayName="HSV 2 IgM Antibodies" /> <statusCode code= "completed" /> <effectiveTime value="963815442117" /> <value unit="titer" xsi:type="PQ" value="<1:10" /> <referenceRange> <observationRange> <text><1:10</text> </ observationRange> </referenceRange> </observation> </ component> </organizer> </entry> <entry> <organizer moodCode="EVN" classCode="BATTERY"> <templateId root="2.16.840.1.907541.10..22.4.1" /> <id nullFlavor="NA" /> <code codeSystem="local" code="072988" displayName="Urine Culture, Routine" /> <statusCode code="completed" /> <component> <observation moodCode="EVN" classCode="OBS"> < templateId root="2.16.840.1.055229.10..22.4.2" /> <id nullFlavor="NA " /> <code codeSystem="local" code="589495" displayName="Urine Culture , Routine" /> <statusCode code="completed" /> <effectiveTime value="557456459714" /> <value unit="" xsi:type="PQ" value="Note" /> <referenceRange> <observationRange> <text /> </observationRange> </referenceRange> </observation> </component> </organizer> </entry> <entry> <organizer moodCode="EVN " classCode="BATTERY"> <templateId root="05.02.840.1.972098.10..4.1" / > <id nullFlavor="NA" /> <code codeSystem="local" code="251500" displayName="Genital Culture, Routine" /> <statusCode code="completed" /> <component> <observation moodCode="EVN" classCode="OBS"> < templateId root="840.1.329699.01.03.22.4.2" /> <id nullFlavor="NA " /> <code codeSystem="local" code="019396" displayName="Genital Culture, Routine" /> <statusCode code="completed" /> < effectiveTime value="998082678942" /> <value unit="" xsi:type="PQ" value="Note" /> <referenceRange> <observationRange> <text /> </observationRange> </referenceRange> </observation> </component> </organizer> </entry> <entry> < organizer moodCode="EVN" classCode="BATTERY"> <templateId root= "05.02.840.1.807519.01.03.22.4.1" /> <id nullFlavor="NA" /> <code codeSystem="local" code="663767" displayName="Pap Lb, HPV-hr" /> < statusCode code="completed" /> <component> <observation moodCode= "EVN" classCode="OBS"> <templateId root="05.02.840.1.544624.10.4.2 " /> <id nullFlavor="NA" /> <code codeSystem="local" code= "015616" displayName="HPV, high-risk" /> <statusCode code="completed" / > <effectiveTime value="230548797735" /> <value unit="" xsi: type="PQ" value="Negative" /> <referenceRange> < observationRange> <text>Negative</text> </ observationRange> </referenceRange> </observation> </ component> <component> <observation moodCode="EVN" classCode="OBS"> <templateId root="216.840.1.594241.10.22.4.2" /> <id nullFlavor="NA" /> <code codeSystem="local" code="851355" displayName= "DIAGNOSIS:" /> <statusCode code="completed" /> < effectiveTime value="942953261353" /> <value unit="" xsi:type="PQ" value="Comment" /> <referenceRange> <observationRange> <text /> </observationRange> </referenceRange> </observation> </component> <component> <observation moodCode="EVN" classCode="OBS"> <templateId root= "216.840.1.850264.1022.4.2" /> <id nullFlavor="NA" /> < code codeSystem="local" code="167491" displayName="Specimen adequacy:" /> <statusCode code="completed" /> <effectiveTime value="307532604378 " /> <value unit="" xsi:type="PQ" value="Comment" /> < referenceRange> <observationRange> <text /> < /observationRange> </referenceRange> </observation> </ component> <component> <observation moodCode="EVN" classCode="OBS"> <templateId root="16.840.1.928893.1022.4.2" /> <id nullFlavor="NA" /> <code codeSystem="local" code="468746" displayName= "Clinician provided ICD10:" /> <statusCode code="completed" /> <effectiveTime value="520658323685" /> <value unit="" xsi:type="PQ" value="Comment" /> <referenceRange> <observationRange> <text /> </observationRange> </referenceRange> </observation> </component> <component> <observation moodCode="EVN" classCode="OBS"> <templateId root= "16.840.1.881202.10.4.2" /> <id nullFlavor="NA" /> < code codeSystem="local" code="807754" displayName="Performed by:" /> < statusCode code="completed" /> <effectiveTime value="254028950695" /> <value unit="" xsi:type="PQ" value="Comment" /> < referenceRange> <observationRange> <text /> < /observationRange> </referenceRange> </observation> </ component> <component> <observation moodCode="EVN" classCode="OBS"> <templateId root="05.02.840.1.358241.10.4.2" /> <id nullFlavor="NA" /> <code codeSystem="local" code="512596" displayName= "QC reviewed by:" /> <statusCode code="completed" /> < effectiveTime value="309419882811" /> <value unit="" xsi:type="PQ" value="Comment" /> <referenceRange> <observationRange> <text /> </observationRange> </referenceRange> </observation> </component> <component> <observation moodCode="EVN" classCode="OBS"> <templateId root= "05.02.840.1.495984.01.03.22.4.2" /> <id nullFlavor="NA" /> < code codeSystem="local" code="383567" displayName="." /> <statusCode code="completed" /> <effectiveTime value="212675854745" /> < value unit="" xsi:type="PQ" value="." /> <referenceRange> < observationRange> <text /> </observationRange> </referenceRange> </observation> </component> <component> <observation moodCode="EVN" classCode="OBS"> <templateId root= "216.840.1.374975.10..22.4.2" /> <id nullFlavor="NA" /> < code codeSystem="local" code="217697" displayName="Note:" /> < statusCode code="completed" /> <effectiveTime value="795259919563" /> <value unit="" xsi:type="PQ" value="Comment" /> < referenceRange> <observationRange> <text /> < /observationRange> </referenceRange> </observation> </ component> </organizer> </entry> <entry> <organizer moodCode="EVN" classCode="BATTERY"> <templateId root="16.840.1.312917.10...4.1" /> <id nullFlavor="NA" /> <code codeSystem="local" code="07836" displayName="VITAMIN D, 25-H" /> <statusCode code="completed" /> < component> <observation moodCode="EVN" classCode="OBS"> < templateId root="16.840.1.695362.10..22.4.2" /> <id nullFlavor="NA " /> <code codeSystem="local" code="41898432" displayName="VITAMIN D,25 -OH,TOTAL,IA" /> <statusCode code="completed" /> < effectiveTime value="451979445183" /> <value unit="ng/mL" xsi:type="PQ " value="29" /> <interpretationCode codeSystem="local" code="*" /> <referenceRange> <observationRange> <text>30-100</ text> </observationRange> </referenceRange> </ observation> </component> </organizer> </entry> <entry> <organizer moodCode="EVN" classCode="BATTERY"> <templateId root= "16.840.1.921072.10..22.4.1" /> <id nullFlavor="NA" /> <code codeSystem="local" code="927" displayName="VITAMIN B12" /> <statusCode code ="completed" /> <component> <observation moodCode="EVN" classCode= "OBS"> <templateId root="05.02.840.1.225523.10...4.2" /> < id nullFlavor="NA" /> <code codeSystem="local" code="21440545" displayName="VITAMIN B12" /> <statusCode code="completed" /> < effectiveTime value="869861445095" /> <value unit="pg/mL" xsi:type="PQ " value="276" /> <referenceRange> <observationRange> <text>200-1100</text> </observationRange> </ referenceRange> </observation> </component> </organizer> </entry > <entry> <organizer moodCode="EVN" classCode="BATTERY"> <templateId root="05.02.840.1.644167.10..22.4.1" /> <id nullFlavor="NA" /> <code codeSystem="local" code="3542" displayName="PATHOLOGY REPORT (TISSUE PAHOLOGY)" /> <statusCode code="completed" /> <component> <observation moodCode="EVN" classCode="OBS"> <templateId root= "05.02.840.1.504892.10..22.4.2" /> <id nullFlavor="NA" /> < code codeSystem="local" code="84589580" displayName="CLINICAL INFORMATION" /> <statusCode code="completed" /> <effectiveTime value= "034731553560" /> <value unit="" xsi:type="PQ" value="" /> < referenceRange> <observationRange> <text>NRG</text> </observationRange> </referenceRange> </observation> </component> <component> <observation moodCode="EVN" classCode= "OBS"> <templateId root="16.840.1.163017.10..4.2" /> < id nullFlavor="NA" /> <code codeSystem="local" code="82230358" displayName="PATHOLOGIST" /> <statusCode code="completed" /> < effectiveTime value="704444216570" /> <value unit="" xsi:type="PQ" value="" /> <referenceRange> <observationRange> <text>NRG</text> </observationRange> </referenceRange> </observation> </component> </organizer> </entry> <entry> < organizer moodCode="EVN" classCode="BATTERY"> <templateId root= "16.840.1.952797.10..4.1" /> <id nullFlavor="NA" /> <code codeSystem="local" code="59351" displayName="TISSUE, 2 SPECIMENS" /> < statusCode code="completed" /> <component> <observation moodCode= "EVN" classCode="OBS"> <templateId root="16.840.1.289513.1022.4.2 " /> <id nullFlavor="NA" /> <code codeSystem="local" code= "20605079" displayName="A SOURCE" /> <statusCode code="completed" /> <effectiveTime value="697589857895" /> <value unit="" xsi:type= "PQ" value="" /> <referenceRange> <observationRange> <text>NRG</text> </observationRange> </referenceRange > </observation> </component> <component> <observation moodCode="EVN" classCode="OBS"> <templateId root= "216.840.1.657887.10.4.2" /> <id nullFlavor="NA" /> < code codeSystem="local" code="56798052" displayName="A GROSS DESCRIPTION" /> <statusCode code="completed" /> <effectiveTime value= "036099898594" /> <value unit="" xsi:type="PQ" value="" /> < referenceRange> <observationRange> <text>NRG</text> </observationRange> </referenceRange> </observation> </component> <component> <observation moodCode="EVN" classCode= "OBS"> <templateId root="05.02.840.1.081187.01.03.22.4.2" /> < id nullFlavor="NA" /> <code codeSystem="local" code="49198784" displayName="A DIAGNOSIS" /> <statusCode code="completed" /> < effectiveTime value="040424029258" /> <value unit="" xsi:type="PQ" value="" /> <referenceRange> <observationRange> <text>NRG</text> </observationRange> </referenceRange> </observation> </component> <component> <observation moodCode="EVN" classCode="OBS"> <templateId root= "05.02.840.1.207942.10..4.2" /> <id nullFlavor="NA" /> < code codeSystem="local" code="89056622" displayName="A COMMENT" /> < statusCode code="completed" /> <effectiveTime value="002789107094" /> <value unit="" xsi:type="PQ" value="" /> <referenceRange> <observationRange> <text>NRG</text> </ observationRange> </referenceRange> </observation> </ component> </organizer> </entry> <entry> <organizer moodCode="EVN" classCode="BATTERY"> <templateId root="216.840.1.819005.10..22.4.1" /> <id nullFlavor="NA" /> <code codeSystem="local" code="395" displayName ="CULTURE, URINE" /> <statusCode code="completed" /> <component> <observation moodCode="EVN" classCode="OBS"> <templateId root= "216.840.1.736483.10..22.4.2" /> <id nullFlavor="NA" /> < code codeSystem="local" code="50790810" displayName="CULTURE, URINE, ROUTINE" / > <statusCode code="completed" /> <effectiveTime value= "869583448414" /> <value unit="" xsi:type="PQ" value="SEE NOTE" /> <interpretationCode codeSystem="local" code="*" /> < referenceRange> <observationRange> <text>NRG</text> </observationRange> </referenceRange> </observation> </component> </organizer> </entry> <entry> <organizer moodCode="EVN" classCode="BATTERY"> <templateId root="216.840.1.890570.10..22.4.1" /> <id nullFlavor="NA" /> <code codeSystem="local" code="2114-7" displayName="Urine beta human chorionic gonadotropin (hCG) measurement" /> <statusCode code="completed" /> <component> <observation moodCode= "EVN" classCode="OBS"> <templateId root="2.16.840.1.788923.10.20.22.4.2 " /> <id nullFlavor="NA" /> <code codeSystem="local" code= "2113-09" displayName="Urine beta human chorionic gonadotropin (hCG) measurement " /> <statusCode code="completed" /> <effectiveTime value= "590538517378" /> <value unit="" xsi:type="PQ" value="NEGATIVE" /> <referenceRange> <observationRange> <text>NEGATIVE </text> </observationRange> </referenceRange> </ observation> </component> </organizer> </entry> <entry> <organizer moodCode="EVN" classCode="BATTERY"> <templateId root= "2.16.840.1.096700.10.20.22.4.1" /> <id nullFlavor="NA" /> <code codeSystem="local" code="2113-09" displayName="Urine beta human chorionic gonadotropin (hCG) measurement" /> <statusCode code="completed" /> < component> <observation moodCode="EVN" classCode="OBS"> < templateId root="2.16.840.1.644673.10.20.22.4.2" /> <id nullFlavor="NA " /> <code codeSystem="local" code="2113-09" displayName="Urine beta human chorionic gonadotropin (hCG) measurement" /> <statusCode code= "completed" /> <effectiveTime value="018069857936" /> <value unit="" xsi:type="PQ" value="NEGATIVE" /> <referenceRange> < observationRange> <text>NEGATIVE</text> </ observationRange> </referenceRange> </observation> </ component> </organizer> </entry> <entry> <organizer moodCode="EVN" classCode="BATTERY"> <templateId root="840.1.992475.01.03.22.4.1" /> <id nullFlavor="NA" /> <code codeSystem="local" code="395" displayName ="CULTURE, URINE" /> <statusCode code="completed" /> <component> <observation moodCode="EVN" classCode="OBS"> <templateId root= "840.1.119814.01.03.224.2" /> <id nullFlavor="NA" /> < code codeSystem="local" code="89630643" displayName="CULTURE, URINE, ROUTINE" / > <statusCode code="completed" /> <effectiveTime value= "579548677224" /> <value unit="" xsi:type="PQ" value="SEE NOTE" /> <interpretationCode codeSystem="local" code="*" /> < referenceRange> <observationRange> <text>NRG</text> </observationRange> </referenceRange> </observation> </component> </organizer> </entry> <entry> <organizer moodCode="EVN" classCode="BATTERY"> <templateId root="840.1.855452.01.03.22.4.1" /> <id nullFlavor="NA" /> <code codeSystem="local" code="4558" displayName="CULTURE, GENITAL" /> <statusCode code="completed" /> < component> <observation moodCode="EVN" classCode="OBS"> < templateId root="840.1.459584.01.03.22.4.2" /> <id nullFlavor="NA " /> <code codeSystem="local" code="70438581" displayName="CULTURE, GENITAL" /> <statusCode code="completed" /> <effectiveTime value="143711091017" /> <value unit="" xsi:type="PQ" value="SEE NOTE" / > <referenceRange> <observationRange> <text>NRG </text> </observationRange> </referenceRange> </ observation> </component> </organizer> </entry> <entry> <organizer moodCode="EVN" classCode="BATTERY"> <templateId root= "05.02.840.1.759739.10.22.4.1" /> <id nullFlavor="NA" /> <code codeSystem="local" code="90156" displayName="HIV PCR- APPROVAL REQUIRED" /> <statusCode code="completed" /> <component> <observation moodCode= "EVN" classCode="OBS"> <templateId root="05.02.840.1.281674.10...4.2 " /> <id nullFlavor="NA" /> <code codeSystem="local" code= "07063036" displayName="HIV 1 RNA, QN PCR" /> <statusCode code= "completed" /> <effectiveTime value="629338287764" /> <value unit="copies/mL" xsi:type="PQ" value="09639" /> <interpretationCode codeSystem="local" code="*" /> <referenceRange> < observationRange> <text>NOT DETECTED</text> </ observationRange> </referenceRange> </observation> </ component> <component> <observation moodCode="EVN" classCode="OBS"> <templateId root="05.02.840.1.943340.10..4.2" /> <id nullFlavor="NA" /> <code codeSystem="local" code="10893512" displayName ="HIV 1 RNA, QN PCR" /> <statusCode code="completed" /> < effectiveTime value="540821144544" /> <value unit="Logcopies/mL" xsi: type="PQ" value="4.81" /> <interpretationCode codeSystem="local" code= "*" /> <referenceRange> <observationRange> < text>NOT DETECTED</text> </observationRange> </ referenceRange> </observation> </component> </organizer> </entry > <entry> <organizer moodCode="EVN" classCode="BATTERY"> <templateId root="16.840.1.841254.10..4.1" /> <id nullFlavor="NA" /> <code codeSystem="local" code="82247" displayName="TESTOSTERONE, TOTAL (WOMEN, CHILDREN, HYPOGONADAL MALES)" /> <statusCode code="completed" /> < component> <observation moodCode="EVN" classCode="OBS"> < templateId root="05.02.840.1.477388.10..4.2" /> <id nullFlavor="NA " /> <code codeSystem="local" code="21050631" displayName="TESTOSTERONE , TOTAL, LC/MS/MS" /> <statusCode code="completed" /> < effectiveTime value="965769928045" /> <value unit="ng/dL" xsi:type="PQ " value="19" /> <referenceRange> <observationRange> <text>2-45</text> </observationRange> </referenceRange > </observation> </component> <component> <observation moodCode="EVN" classCode="OBS"> <templateId root= "05.02.840.1.026040.10...4.2" /> <id nullFlavor="NA" /> < code codeSystem="local" code="37483961" displayName="FREE TESTOSTERONE" /> <statusCode code="completed" /> <effectiveTime value=" " /> <value unit="pg/mL" xsi:type="PQ" value="1.6" /> < referenceRange> <observationRange> <text>0.1-6.4</text> </observationRange> </referenceRange> </observation > </component> </organizer> </entry> <entry> <organizer moodCode= "EVN" classCode="BATTERY"> <templateId root="216.840.1.581628.10.20.22.4.1 " /> <id nullFlavor="NA" /> <code codeSystem="local" code="81626-5" displayName="Complete blood count (CBC) with automated white blood cell (WBC) differential" /> <statusCode code="completed" /> <component> < observation moodCode="EVN" classCode="OBS"> <templateId root= "2.16.840.1.427184.10..22.4.2" /> <id nullFlavor="NA" /> < code codeSystem="local" code="6690-2" displayName="Blood leukocytes automated count (number/volume)" /> <statusCode code="completed" /> < effectiveTime value="606733713967" /> <value unit="10*3/uL" xsi:type= "PQ" value="8.0" /> <referenceRange> <observationRange> <text>4.3-11.0</text> </observationRange> </ referenceRange> </observation> </component> <component> <observation moodCode="EVN" classCode="OBS"> <templateId root= "216.840.1.951957.10..22.4.2" /> <id nullFlavor="NA" /> < code codeSystem="local" code="789-8" displayName="Blood erythrocytes automated count (number/volume)" /> <statusCode code="completed" /> < effectiveTime value="779045887383" /> <value unit="10*6/uL" xsi:type= "PQ" value="4.95" /> <referenceRange> <observationRange> <text>4.35-5.85</text> </observationRange> </ referenceRange> </observation> </component> <component> <observation moodCode="EVN" classCode="OBS"> <templateId root= "2.16.840.1.318577.10..22.4.2" /> <id nullFlavor="NA" /> < code codeSystem="local" code="35928-4" displayName="Venous blood hemoglobin measurement (mass/volume)" /> <statusCode code="completed" /> <effectiveTime value="211265088067" /> <value unit="g/dL" xsi:type="PQ " value="12.0" /> <referenceRange> <observationRange> <text>11.5-16.0</text> </observationRange> </ referenceRange> </observation> </component> <component> <observation moodCode="EVN" classCode="OBS"> <templateId root= "2.16.840.1.964495.10...4.2" /> <id nullFlavor="NA" /> < code codeSystem="local" code="09479-5" displayName="Blood hematocrit (volume fraction)" /> <statusCode code="completed" /> <effectiveTime value="538110891058" /> <value unit="%" xsi:type="PQ" value="37" / > <referenceRange> <observationRange> <text>35- 52</text> </observationRange> </referenceRange> </ observation> </component> <component> <observation moodCode= "EVN" classCode="OBS"> <templateId root="2.16.840.1.631367.10..22.4.2 " /> <id nullFlavor="NA" /> <code codeSystem="local" code="787 -2" displayName="Automated erythrocyte mean corpuscular volume" /> < statusCode code="completed" /> <effectiveTime value="956264378477" /> <value unit="[foz_us]" xsi:type="PQ" value="74" /> < interpretationCode codeSystem="local" code="" /> <referenceRange> <observationRange> <text>80-99</text> </ observationRange> </referenceRange> </observation> </ component> <component> <observation moodCode="EVN" classCode="OBS"> <templateId root="2.16.840.1.332570.10...4.2" /> <id nullFlavor="NA" /> <code codeSystem="local" code="785-6" displayName= "Automated erythrocyte mean corpuscular hemoglobin (mass per erythrocyte)" /> <statusCode code="completed" /> <effectiveTime value= "416627750914" /> <value unit="pg" xsi:type="PQ" value="24" /> <interpretationCode codeSystem="local" code="" /> <referenceRange> <observationRange> <text>25-34</text> </ observationRange> </referenceRange> </observation> </ component> <component> <observation moodCode="EVN" classCode="OBS"> <templateId root="2.16.840.1.771329.10..22.4.2" /> <id nullFlavor="NA" /> <code codeSystem="local" code="786-4" displayName= "Automated erythrocyte mean corpuscular hemoglobin concentration measurement ( mass/volume)" /> <statusCode code="completed" /> < effectiveTime value="252328266753" /> <value unit="g/dL" xsi:type="PQ" value="33" /> <referenceRange> <observationRange> <text>32-36</text> </observationRange> </referenceRange > </observation> </component> <component> <observation moodCode="EVN" classCode="OBS"> <templateId root= "216.840.1.956851.10.20.22.4.2" /> <id nullFlavor="NA" /> < code codeSystem="local" code="788-0" displayName="Automated erythrocyte distribution width ratio" /> <statusCode code="completed" /> < effectiveTime value="500138605645" /> <value unit="%" xsi:type="PQ " value="18.0" /> <interpretationCode codeSystem="local" code="" /> <referenceRange> <observationRange> <text>10.0- 14.5</text> </observationRange> </referenceRange> </ observation> </component> <component> <observation moodCode= "EVN" classCode="OBS"> <templateId root="05.02.840.1.550202.10...4.2 " /> <id nullFlavor="NA" /> <code codeSystem="local" code="777 -3" displayName="Automated blood platelet count (count/volume)" /> < statusCode code="completed" /> <effectiveTime value="308927116100" /> <value unit="10*3/uL" xsi:type="PQ" value="273" /> < referenceRange> <observationRange> <text>130-400</text> </observationRange> </referenceRange> </observation > </component> <component> <observation moodCode="EVN" classCode="OBS"> <templateId root="216.840.1.851838.10.20.22.4.2" /> <id nullFlavor="NA" /> <code codeSystem="local" code="20921-2 " displayName="Automated blood platelet mean volume measurement" /> < statusCode code="completed" /> <effectiveTime value="209505437231" /> <value unit="[[facility]]" xsi:type="PQ" value="11.4" /> < interpretationCode codeSystem="local" code="" /> <referenceRange> <observationRange> <text>7.4-10.4</text> </ observationRange> </referenceRange> </observation> </ component> <component> <observation moodCode="EVN" classCode="OBS"> <templateId root="2.16.840.1.012293.10..22.4.2" /> <id nullFlavor="NA" /> <code codeSystem="local" code="770-8" displayName= "Automated blood neutrophils/100 leukocytes" /> <statusCode code= "completed" /> <effectiveTime value="578416442656" /> <value unit="%" xsi:type="PQ" value="70" /> <referenceRange> < observationRange> <text>42-75</text> </observationRange > </referenceRange> </observation> </component> < component> <observation moodCode="EVN" classCode="OBS"> < templateId root="2.16.840.1.111604.10.22.4.2" /> <id nullFlavor="NA " /> <code codeSystem="local" code="736-9" displayName="Automated blood lymphocytes/100 leukocytes" /> <statusCode code="completed" /> <effectiveTime value="502765981449" /> <value unit="%" xsi: type="PQ" value="19" /> <referenceRange> <observationRange> <text>12-44</text> </observationRange> </ referenceRange> </observation> </component> <component> <observation moodCode="EVN" classCode="OBS"> <templateId root= "2.16.840.1.485962.10.20.22.4.2" /> <id nullFlavor="NA" /> < code codeSystem="local" code="95413-8" displayName="Blood monocytes/100 leukocytes" /> <statusCode code="completed" /> <effectiveTime value="240399152478" /> <value unit="%" xsi:type="PQ" value="9" /> <referenceRange> <observationRange> <text>0-12 </text> </observationRange> </referenceRange> </ observation> </component> <component> <observation moodCode= "EVN" classCode="OBS"> <templateId root="216.840.1.589928.1022.4.2 " /> <id nullFlavor="NA" /> <code codeSystem="local" code="713 -8" displayName="Automated blood eosinophils/100 leukocytes" /> < statusCode code="completed" /> <effectiveTime value="192288515958" /> <value unit="%" xsi:type="PQ" value="2" /> <referenceRange > <observationRange> <text>0-10</text> </ observationRange> </referenceRange> </observation> </ component> <component> <observation moodCode="EVN" classCode="OBS"> <templateId root="2.16.840.1.456827.10..22.4.2" /> <id nullFlavor="NA" /> <code codeSystem="local" code="706-2" displayName= "Automated blood basophils/100 leukocytes" /> <statusCode code= "completed" /> <effectiveTime value="717866645230" /> <value unit="%" xsi:type="PQ" value="0" /> <referenceRange> < observationRange> <text>0-10</text> </observationRange> </referenceRange> </observation> </component> < component> <observation moodCode="EVN" classCode="OBS"> < templateId root="2.16.840.1.893572.10.20.22.4.2" /> <id nullFlavor="NA " /> <code codeSystem="local" code="751-8" displayName="Blood neutrophils automated count (number/volume)" /> <statusCode code= "completed" /> <effectiveTime value="051638587272" /> <value unit="10*3" xsi:type="PQ" value="5.7" /> <referenceRange> < observationRange> <text>1.8-7.8</text> </ observationRange> </referenceRange> </observation> </ component> <component> <observation moodCode="EVN" classCode="OBS"> <templateId root="216.840.1.184174...4.2" /> <id nullFlavor="NA" /> <code codeSystem="local" code="731-0" displayName= "Blood lymphocytes automated count (number/volume)" /> <statusCode code ="completed" /> <effectiveTime value="162615890280" /> <value unit="10*3" xsi:type="PQ" value="1.5" /> <referenceRange> < observationRange> <text>1.0-4.0</text> </ observationRange> </referenceRange> </observation> </ component> <component> <observation moodCode="EVN" classCode="OBS"> <templateId root="2.16.840.1.243283.10.20.22.4.2" /> <id nullFlavor="NA" /> <code codeSystem="local" code="742-7" displayName= "Blood monocytes automated count (number/volume)" /> <statusCode code= "completed" /> <effectiveTime value="736794236098" /> <value unit="10*3" xsi:type="PQ" value="0.7" /> <referenceRange> < observationRange> <text>0.0-1.0</text> </ observationRange> </referenceRange> </observation> </ component> <component> <observation moodCode="EVN" classCode="OBS"> <templateId root="2.16.840.1.599485...4.2" /> <id nullFlavor="NA" /> <code codeSystem="local" code="711-2" displayName= "Automated eosinophil count" /> <statusCode code="completed" /> <effectiveTime value="166445586678" /> <value unit="10*3/uL" xsi: type="PQ" value="0.2" /> <referenceRange> <observationRange > <text>0.0-0.3</text> </observationRange> </ referenceRange> </observation> </component> <component> <observation moodCode="EVN" classCode="OBS"> <templateId root= "2.16.840.1.589769.01.03.22.4.2" /> <id nullFlavor="NA" /> < code codeSystem="local" code="704-7" displayName="Automated blood basophil count (count/volume)" /> <statusCode code="completed" /> < effectiveTime value="965105900772" /> <value unit="10*3/uL" xsi:type= "PQ" value="0.0" /> <referenceRange> <observationRange> <text>0.0-0.1</text> </observationRange> </ referenceRange> </observation> </component> </organizer> </entry > <entry> <organizer moodCode="EVN" classCode="BATTERY"> <templateId root="2.16.840.1.884260.10..22.4.1" /> <id nullFlavor="NA" /> <code codeSystem="local" code="90651-6" displayName="Comprehensive metabolic panel" / > <statusCode code="completed" /> <component> <observation moodCode="EVN" classCode="OBS"> <templateId root= "2.16.840.1.016124.10..22.4.2" /> <id nullFlavor="NA" /> < code codeSystem="local" code="2951-2" displayName="Serum or plasma sodium measurement (moles/volume)" /> <statusCode code="completed" /> <effectiveTime value="873000058261" /> <value unit="mmol/L" xsi:type= "PQ" value="139" /> <referenceRange> <observationRange> <text>135-145</text> </observationRange> </ referenceRange> </observation> </component> <component> <observation moodCode="EVN" classCode="OBS"> <templateId root= "2.16.840.1.812064.10..22.4.2" /> <id nullFlavor="NA" /> < code codeSystem="local" code="2823-3" displayName="Serum or plasma potassium measurement (moles/volume)" /> <statusCode code="completed" /> <effectiveTime value="874139241550" /> <value unit="mmol/L" xsi:type= "PQ" value="3.6" /> <referenceRange> <observationRange> <text>3.6-5.0</text> </observationRange> </ referenceRange> </observation> </component> <component> <observation moodCode="EVN" classCode="OBS"> <templateId root= "2.16.840.1.087548.10.20.22.4.2" /> <id nullFlavor="NA" /> < code codeSystem="local" code="" displayName="Serum or plasma chloride measurement (moles/volume)" /> <statusCode code="completed" /> <effectiveTime value="043564688030" /> <value unit="mmol/L" xsi:type= "PQ" value="109" /> <interpretationCode codeSystem="local" code="" / > <referenceRange> <observationRange> <text>98- 107</text> </observationRange> </referenceRange> </ observation> </component> <component> <observation moodCode= "EVN" classCode="OBS"> <templateId root="05.02.840.1.125231.10...4.2 " /> <id nullFlavor="NA" /> <code codeSystem="local" code= "2027-11" displayName="Carbon dioxide" /> <statusCode code="completed" / > <effectiveTime value="647303148340" /> <value unit="mmol/L" xsi:type="PQ" value="27" /> <referenceRange> < observationRange> <text>21-32</text> </observationRange > </referenceRange> </observation> </component> < component> <observation moodCode="EVN" classCode="OBS"> < templateId root="2.16.840.1.209023.10..22.4.2" /> <id nullFlavor="NA " /> <code codeSystem="local" code="09842-6" displayName="Serum or plasma anion gap determination (moles/volume)" /> <statusCode code= "completed" /> <effectiveTime value="138929499269" /> <value unit="mmol/L" xsi:type="PQ" value="3" /> <interpretationCode codeSystem ="local" code="" /> <referenceRange> <observationRange> <text>5-14</text> </observationRange> </ referenceRange> </observation> </component> <component> <observation moodCode="EVN" classCode="OBS"> <templateId root= "2.16.840.1.452789.10.20.22.4.2" /> <id nullFlavor="NA" /> < code codeSystem="local" code="3094-0" displayName="Serum or plasma urea nitrogen measurement (mass/volume)" /> <statusCode code="completed" /> <effectiveTime value="411692342493" /> <value unit="mg/dL" xsi:type="PQ" value="9" /> <referenceRange> < observationRange> <text>7-18</text> </observationRange> </referenceRange> </observation> </component> < component> <observation moodCode="EVN" classCode="OBS"> < templateId root="2.16.840.1.440784.10.20.22.4.2" /> <id nullFlavor="NA " /> <code codeSystem="local" code="2160-0" displayName="Serum or plasma creatinine measurement (mass/volume)" /> <statusCode code= "completed" /> <effectiveTime value="368445932359" /> <value unit="mg/dL" xsi:type="PQ" value="0.70" /> <referenceRange> <observationRange> <text>0.60-1.30</text> </ observationRange> </referenceRange> </observation> </ component> <component> <observation moodCode="EVN" classCode="OBS"> <templateId root="216.840.1.281151.10..22.4.2" /> <id nullFlavor="NA" /> <code codeSystem="local" code="3097-3" displayName= "Serum or plasma urea nitrogen/creatinine mass ratio" /> <statusCode code="completed" /> <effectiveTime value="481263607091" /> < value unit="" xsi:type="PQ" value="13" /> <referenceRange> < observationRange> <text>NRG</text> </observationRange> </referenceRange> </observation> </component> < component> <observation moodCode="EVN" classCode="OBS"> < templateId root="16.840.1.643321.10...4.2" /> <id nullFlavor="NA " /> <code codeSystem="local" code="90667-2" displayName="Serum or plasma creatinine measurement with calculation of estimated glomerular filtration rate" /> <statusCode code="completed" /> < effectiveTime value="241797603180" /> <value unit="" xsi:type="PQ" value=">" /> <referenceRange> <observationRange> <text>NRG</text> </observationRange> </referenceRange > </observation> </component> <component> <observation moodCode="EVN" classCode="OBS"> <templateId root= "16.840.1.711525.10..22.4.2" /> <id nullFlavor="NA" /> < code codeSystem="local" code="2345-7" displayName="Serum or plasma glucose measurement (mass/volume)" /> <statusCode code="completed" /> <effectiveTime value="769036142432" /> <value unit="mg/dL" xsi:type="PQ " value="116" /> <interpretationCode codeSystem="local" code="" /> <referenceRange> <observationRange> <text>70-105 </text> </observationRange> </referenceRange> </ observation> </component> <component> <observation moodCode= "EVN" classCode="OBS"> <templateId root="216.840.1.905034.10.20.22.4.2 " /> <id nullFlavor="NA" /> <code codeSystem="local" code= "20331-4" displayName="Serum or plasma calcium measurement (mass/volume)" /> <statusCode code="completed" /> <effectiveTime value= "514427423956" /> <value unit="mg/dL" xsi:type="PQ" value="9.1" /> <referenceRange> <observationRange> <text>8.5-10.1 </text> </observationRange> </referenceRange> </ observation> </component> <component> <observation moodCode= "EVN" classCode="OBS"> <templateId root="05.02.840.1.643324.10...4.2 " /> <id nullFlavor="NA" /> <code codeSystem="local" code= "1974-04" displayName="Serum or plasma total bilirubin measurement (mass/volume) " /> <statusCode code="completed" /> <effectiveTime value= "506797546639" /> <value unit="mg/dL" xsi:type="PQ" value="0.4" /> <referenceRange> <observationRange> <text>0.1-1.0< /text> </observationRange> </referenceRange> </ observation> </component> <component> <observation moodCode= "EVN" classCode="OBS"> <templateId root="16.840.1.478545.10.20.22.4.2 " /> <id nullFlavor="NA" /> <code codeSystem="local" code= "6768-6" displayName="Serum or plasma alkaline phosphatase measurement ( enzymatic activity/volume)" /> <statusCode code="completed" /> <effectiveTime value="316318804982" /> <value unit="U/L" xsi:type="PQ " value="82" /> <referenceRange> <observationRange> <text>40-136</text> </observationRange> </ referenceRange> </observation> </component> <component> <observation moodCode="EVN" classCode="OBS"> <templateId root= "2.16.840.1.458041.10.20.22.4.2" /> <id nullFlavor="NA" /> < code codeSystem="local" code="1920" displayName="Serum or plasma aspartate aminotransferase measurement (enzymatic activity/volume)" /> < statusCode code="completed" /> <effectiveTime value="695374826903" /> <value unit="U/L" xsi:type="PQ" value="15" /> <referenceRange > <observationRange> <text>5-34</text> </ observationRange> </referenceRange> </observation> </ component> <component> <observation moodCode="EVN" classCode="OBS"> <templateId root="2.16.840.1.029492.10.20.22.4.2" /> <id nullFlavor="NA" /> <code codeSystem="local" code="17404-22" displayName= "Serum or plasma alanine aminotransferase measurement (enzymatic activity/volume )" /> <statusCode code="completed" /> <effectiveTime value= "385326746739" /> <value unit="U/L" xsi:type="PQ" value="12" /> <referenceRange> <observationRange> <text>0-55</text > </observationRange> </referenceRange> </observation > </component> <component> <observation moodCode="EVN" classCode="OBS"> <templateId root="2.16.840.1.483418.10.20.22.4.2" /> <id nullFlavor="NA" /> <code codeSystem="local" code="2885-2" displayName="Serum or plasma protein measurement (mass/volume)" /> < statusCode code="completed" /> <effectiveTime value="054767431511" /> <value unit="g/dL" xsi:type="PQ" value="7.4" /> < referenceRange> <observationRange> <text>6.4-8.2</text> </observationRange> </referenceRange> </observation > </component> <component> <observation moodCode="EVN" classCode="OBS"> <templateId root="2.16.840.1.888262.10..22.4.2" /> <id nullFlavor="NA" /> <code codeSystem="local" code="1751-7" displayName="Serum or plasma albumin measurement (mass/volume)" /> < statusCode code="completed" /> <effectiveTime value="634021692644" /> <value unit="g/dL" xsi:type="PQ" value="4.2" /> < referenceRange> <observationRange> <text>3.2-4.5</text> </observationRange> </referenceRange> </observation > </component> </organizer> </entry> <entry> <organizer moodCode= "EVN" classCode="BATTERY"> <templateId root="2.16.840.1.032214.10.20.22.4.1 " /> <id nullFlavor="NA" /> <code codeSystem="local" code="46574-6" displayName="Complete urinalysis with reflex to culture" /> <statusCode code="completed" /> <component> <observation moodCode="EVN" classCode="OBS"> <templateId root="216.840.1.463082.10..22.4.2" /> <id nullFlavor="NA" /> <code codeSystem="local" code="5778-6" displayName="Urine color determination" /> <statusCode code="completed " /> <effectiveTime value="421183998156" /> <value unit="" xsi :type="PQ" value="YELLOW" /> <referenceRange> < observationRange> <text>NRG</text> </observationRange> </referenceRange> </observation> </component> < component> <observation moodCode="EVN" classCode="OBS"> < templateId root="216.840.1.063772.10..22.4.2" /> <id nullFlavor="NA " /> <code codeSystem="local" code="13710-6" displayName="Urine clarity determination" /> <statusCode code="completed" /> < effectiveTime value="657482955968" /> <value unit="" xsi:type="PQ" value="VERY CLOUDY" /> <interpretationCode codeSystem="local" code="*" /> <referenceRange> <observationRange> <text> NRG</text> </observationRange> </referenceRange> </ observation> </component> <component> <observation moodCode= "EVN" classCode="OBS"> <templateId root="16.840.1.358039.10..22.4.2 " /> <id nullFlavor="NA" /> <code codeSystem="local" code= "5803-2" displayName="Urine pH measurement by test strip" /> < statusCode code="completed" /> <effectiveTime value="657995899186" /> <value unit="" xsi:type="PQ" value="5" /> <referenceRange> <observationRange> <text>5-9</text> </ observationRange> </referenceRange> </observation> </ component> <component> <observation moodCode="EVN" classCode="OBS"> <templateId root="05.02.840.1.587339.10.20.22.4.2" /> <id nullFlavor="NA" /> <code codeSystem="local" code="5811-5" displayName= "Specific gravity of urine by test strip" /> <statusCode code= "completed" /> <effectiveTime value="523799001852" /> <value unit="" xsi:type="PQ" value="1.020" /> <referenceRange> < observationRange> <text>1.016-1.022</text> </ observationRange> </referenceRange> </observation> </ component> <component> <observation moodCode="EVN" classCode="OBS"> <templateId root="05.02.840.1.837943.10.22.4.2" /> <id nullFlavor="NA" /> <code codeSystem="local" code="81352-1" displayName= "Urine protein assay by test strip, semi-quantitative" /> <statusCode code="completed" /> <effectiveTime value="665795586586" /> < value unit="" xsi:type="PQ" value="1+" /> <interpretationCode codeSystem="local" code="*" /> <referenceRange> < observationRange> <text>NEGATIVE</text> </ observationRange> </referenceRange> </observation> </ component> <component> <observation moodCode="EVN" classCode="OBS"> <templateId root="05.02.840.1.332223.10.20.22.4.2" /> <id nullFlavor="NA" /> <code codeSystem="local" code="02331-5" displayName= "Urine glucose detection by automated test strip" /> <statusCode code= "completed" /> <effectiveTime value="796430939655" /> <value unit="" xsi:type="PQ" value="NEGATIVE" /> <referenceRange> < observationRange> <text>NEGATIVE</text> </ observationRange> </referenceRange> </observation> </ component> <component> <observation moodCode="EVN" classCode="OBS"> <templateId root="216.840.1.695390.10.20.22.4.2" /> <id nullFlavor="NA" /> <code codeSystem="local" code="24274-8" displayName= "Erythrocytes detection in urine sediment by light microscopy" /> < statusCode code="completed" /> <effectiveTime value="343816658343" /> <value unit="" xsi:type="PQ" value="1+" /> < interpretationCode codeSystem="local" code="*" /> <referenceRange> <observationRange> <text>NEGATIVE</text> </ observationRange> </referenceRange> </observation> </ component> <component> <observation moodCode="EVN" classCode="OBS"> <templateId root="216.840.1.870372.10.20.22.4.2" /> <id nullFlavor="NA" /> <code codeSystem="local" code="96935-6" displayName= "Urine ketones detection by automated test strip" /> <statusCode code= "completed" /> <effectiveTime value="590277404455" /> <value unit="" xsi:type="PQ" value="NEGATIVE" /> <referenceRange> < observationRange> <text>NEGATIVE</text> </ observationRange> </referenceRange> </observation> </ component> <component> <observation moodCode="EVN" classCode="OBS"> <templateId root="16.840.1.645151.10..22.4.2" /> <id nullFlavor="NA" /> <code codeSystem="local" code="5802-4" displayName= "Urine nitrite detection by test strip" /> <statusCode code="completed " /> <effectiveTime value="516559087684" /> <value unit="" xsi :type="PQ" value="NEGATIVE" /> <referenceRange> < observationRange> <text>NEGATIVE</text> </ observationRange> </referenceRange> </observation> </ component> <component> <observation moodCode="EVN" classCode="OBS"> <templateId root="05.02.840.1.188977.10..4.2" /> <id nullFlavor="NA" /> <code codeSystem="local" code="5770-3" displayName= "Urine total bilirubin detection by test strip" /> <statusCode code= "completed" /> <effectiveTime value="820025742627" /> <value unit="" xsi:type="PQ" value="NEGATIVE" /> <referenceRange> < observationRange> <text>NEGATIVE</text> </ observationRange> </referenceRange> </observation> </ component> <component> <observation moodCode="EVN" classCode="OBS"> <templateId root="05.02.840.1.334883.10..22.4.2" /> <id nullFlavor="NA" /> <code codeSystem="local" code="98347-8" displayName= "Urine urobilinogen measurement by automated test strip (mass/volume)" /> <statusCode code="completed" /> <effectiveTime value=" " /> <value unit="" xsi:type="PQ" value="NORMAL" /> < referenceRange> <observationRange> <text>NORMAL</text> </observationRange> </referenceRange> </observation> </component> <component> <observation moodCode="EVN" classCode ="OBS"> <templateId root="216.840.1.588716.10.2022.4.2" /> < id nullFlavor="NA" /> <code codeSystem="local" code="5799-2" displayName="Urine leukocyte esterase detection by dipstick" /> < statusCode code="completed" /> <effectiveTime value="662641402255" /> <value unit="" xsi:type="PQ" value="3+" /> < interpretationCode codeSystem="local" code="*" /> <referenceRange> <observationRange> <text>NEGATIVE</text> </ observationRange> </referenceRange> </observation> </ component> <component> <observation moodCode="EVN" classCode="OBS"> <templateId root="05.02.840.1.462696.10.4.2" /> <id nullFlavor="NA" /> <code codeSystem="local" code="64028-2" displayName= "Automated urine sediment erythrocyte count by microscopy (number/high power field)" /> <statusCode code="completed" /> <effectiveTime value="183013222882" /> <value unit="" xsi:type="PQ" value="RARE" /> <referenceRange> <observationRange> <text>NRG</ text> </observationRange> </referenceRange> </ observation> </component> <component> <observation moodCode= "EVN" classCode="OBS"> <templateId root="05.02.840.1.200557.10.22.4.2 " /> <id nullFlavor="NA" /> <code codeSystem="local" code= "5821-4" displayName="Automated urine sediment leukocyte count by microscopy ( number/high power field)" /> <statusCode code="completed" /> < effectiveTime value="033002976516" /> <value unit="[HPF]" xsi:type="PQ " value="" /> <interpretationCode codeSystem="local" code="*" /> <referenceRange> <observationRange> <text>NRG</text > </observationRange> </referenceRange> </observation > </component> <component> <observation moodCode="EVN" classCode="OBS"> <templateId root="2.16.840.1.797723.10.20.22.4.2" /> <id nullFlavor="NA" /> <code codeSystem="local" code="30465-8 " displayName="Bacteria detection in urine sediment by light microscopy" /> <statusCode code="completed" /> <effectiveTime value= "917655445102" /> <value unit="" xsi:type="PQ" value="MODERATE" /> <interpretationCode codeSystem="local" code="*" /> < referenceRange> <observationRange> <text>NRG</text> </observationRange> </referenceRange> </observation> </component> <component> <observation moodCode="EVN" classCode= "OBS"> <templateId root="2.16.840.1.611480.10.20.22.4.2" /> < id nullFlavor="NA" /> <code codeSystem="local" code="76935-2" displayName="Squamous epithelial cells detection in urine sediment by light microscopy" /> <statusCode code="completed" /> <effectiveTime value="748550816273" /> <value unit="" xsi:type="PQ" value="10-25" /> <interpretationCode codeSystem="local" code="*" /> < referenceRange> <observationRange> <text>NRG</text> </observationRange> </referenceRange> </observation> </component> <component> <observation moodCode="EVN" classCode= "OBS"> <templateId root="216.840.1.431060.10..22.4.2" /> < id nullFlavor="NA" /> <code codeSystem="local" code="42478-1" displayName="Crystals detection in urine sediment by light microscopy" /> <statusCode code="completed" /> <effectiveTime value="152884082414 " /> <value unit="" xsi:type="PQ" value="NONE" /> < referenceRange> <observationRange> <text>NRG</text> </observationRange> </referenceRange> </observation> </component> <component> <observation moodCode="EVN" classCode= "OBS"> <templateId root="05.02.840.1.101418.01.03.22.4.2" /> < id nullFlavor="NA" /> <code codeSystem="local" code="38241-9" displayName="Casts detection in urine sediment by light microscopy" /> <statusCode code="completed" /> <effectiveTime value="830811314796" /> <value unit="" xsi:type="PQ" value="NONE" /> <referenceRange > <observationRange> <text>NRG</text> </ observationRange> </referenceRange> </observation> </ component> <component> <observation moodCode="EVN" classCode="OBS"> <templateId root="216.840.1.267211.10..22.4.2" /> <id nullFlavor="NA" /> <code codeSystem="local" code="8247-9" displayName= "Mucus detection in urine sediment by light microscopy" /> <statusCode code="completed" /> <effectiveTime value="272676131934" /> < value unit="" xsi:type="PQ" value="SMALL" /> <interpretationCode codeSystem="local" code="*" /> <referenceRange> < observationRange> <text>NRG</text> </observationRange> </referenceRange> </observation> </component> < component> <observation moodCode="EVN" classCode="OBS"> < templateId root="216.840.1.055053.1022.4.2" /> <id nullFlavor="NA " /> <code codeSystem="local" code="90903-4" displayName="Complete urinalysis with reflex to culture" /> <statusCode code="completed" /> <effectiveTime value="686712765334" /> <value unit="" xsi:type ="PQ" value="YES" /> <referenceRange> <observationRange> <text>NRG</text> </observationRange> </ referenceRange> </observation> </component> </organizer> </entry > <entry> <organizer moodCode="EVN" classCode="BATTERY"> <templateId root="05.02.840.1.737376.01.03.22.4.1" /> <id nullFlavor="NA" /> <code codeSystem="local" code="26919-4" displayName="Urine drug screening test" /> <statusCode code="completed" /> <component> <observation moodCode ="EVN" classCode="OBS"> <templateId root= "16.840.1.914843.1022.4.2" /> <id nullFlavor="NA" /> < code codeSystem="local" code="21347-0" displayName="Urine phencyclidine detection by screening method" /> <statusCode code="completed" /> <effectiveTime value="193331459897" /> <value unit="" xsi:type="PQ " value="NEGATIVE" /> <referenceRange> <observationRange> <text>NEGATIVE</text> </observationRange> </ referenceRange> </observation> </component> <component> <observation moodCode="EVN" classCode="OBS"> <templateId root= "216.840.1.331783.10.2022.4.2" /> <id nullFlavor="NA" /> < code codeSystem="local" code="67772-6" displayName="Urine benzodiazepines detection by screening method" /> <statusCode code="completed" /> <effectiveTime value="465394262497" /> <value unit="" xsi:type="PQ " value="POSITIVE" /> <interpretationCode codeSystem="local" code="*" / > <referenceRange> <observationRange> <text> NEGATIVE</text> </observationRange> </referenceRange> </observation> </component> <component> <observation moodCode ="EVN" classCode="OBS"> <templateId root= "05.02.840.1.409293.1022.4.2" /> <id nullFlavor="NA" /> < code codeSystem="local" code="3397-7" displayName="Urine cocaine detection" /> <statusCode code="completed" /> <effectiveTime value= "326752160755" /> <value unit="" xsi:type="PQ" value="NEGATIVE" /> <referenceRange> <observationRange> <text>NEGATIVE </text> </observationRange> </referenceRange> </ observation> </component> <component> <observation moodCode= "EVN" classCode="OBS"> <templateId root="05.02.840.1.549312.10.2022.4.2 " /> <id nullFlavor="NA" /> <code codeSystem="local" code= "43512-9" displayName="Urine amphetamines detection by screening method" /> <statusCode code="completed" /> <effectiveTime value= "835933122624" /> <value unit="" xsi:type="PQ" value="NEGATIVE" /> <referenceRange> <observationRange> <text>NEGATIVE </text> </observationRange> </referenceRange> </ observation> </component> <component> <observation moodCode= "EVN" classCode="OBS"> <templateId root="216.840.1.239626.10..4.2 " /> <id nullFlavor="NA" /> <code codeSystem="local" code= "97058-3" displayName="Urine methamphetamine detection by screening method" /> <statusCode code="completed" /> <effectiveTime value= "146156322571" /> <value unit="" xsi:type="PQ" value="NEGATIVE" /> <referenceRange> <observationRange> <text>NEGATIVE </text> </observationRange> </referenceRange> </ observation> </component> <component> <observation moodCode= "EVN" classCode="OBS"> <templateId root="216.840.1.400925.10..4.2 " /> <id nullFlavor="NA" /> <code codeSystem="local" code= "57959-2" displayName="Urine cannabinoids detection by screening method" /> <statusCode code="completed" /> <effectiveTime value= "139718640350" /> <value unit="" xsi:type="PQ" value="NEGATIVE" /> <referenceRange> <observationRange> <text>NEGATIVE </text> </observationRange> </referenceRange> </ observation> </component> <component> <observation moodCode= "EVN" classCode="OBS"> <templateId root="216.840.1.887261.10..22.4.2 " /> <id nullFlavor="NA" /> <code codeSystem="local" code= "96742-1" displayName="Urine opiates detection by screening method" /> <statusCode code="completed" /> <effectiveTime value="592895080608" /> <value unit="" xsi:type="PQ" value="NEGATIVE" /> < referenceRange> <observationRange> <text>NEGATIVE</text > </observationRange> </referenceRange> </observation > </component> <component> <observation moodCode="EVN" classCode="OBS"> <templateId root="2.16.840.1.965258.10.20.22.4.2" /> <id nullFlavor="NA" /> <code codeSystem="local" code="3377-9" displayName="Urine barbiturates detection" /> <statusCode code= "completed" /> <effectiveTime value="084872031328" /> <value unit="" xsi:type="PQ" value="NEGATIVE" /> <referenceRange> < observationRange> <text>NEGATIVE</text> </ observationRange> </referenceRange> </observation> </ component> <component> <observation moodCode="EVN" classCode="OBS"> <templateId root="2.16.840.1.751872.10.20.22.4.2" /> <id nullFlavor="NA" /> <code codeSystem="local" code="54010-7" displayName= "Screening urine tricyclic antidepressants detection" /> <statusCode code="completed" /> <effectiveTime value="126473328131" /> < value unit="" xsi:type="PQ" value="POSITIVE" /> <interpretationCode codeSystem="local" code="*" /> <referenceRange> < observationRange> <text>NEGATIVE</text> </ observationRange> </referenceRange> </observation> </ component> <component> <observation moodCode="EVN" classCode="OBS"> <templateId root="216.840.1.424124.10.20.22.4.2" /> <id nullFlavor="NA" /> <code codeSystem="local" code="14439-8" displayName= "Urine methadone detection by screening method" /> <statusCode code= "completed" /> <effectiveTime value="" /> <value unit="" xsi:type="PQ" value="NEGATIVE" /> <referenceRange> < observationRange> <text>NEGATIVE</text> </ observationRange> </referenceRange> </observation> </ component> <component> <observation moodCode="EVN" classCode="OBS"> <templateId root="16.840.1.531570.10..4.2" /> <id nullFlavor="NA" /> <code codeSystem="local" code="71306-7" displayName= "Urine oxycodone detection" /> <statusCode code="completed" /> <effectiveTime value="" /> <value unit="" xsi:type="PQ" value="NEGATIVE" /> <referenceRange> <observationRange> <text>NEGATIVE</text> </observationRange> </ referenceRange> </observation> </component> <component> <observation moodCode="EVN" classCode="OBS"> <templateId root= "05.02.840.1.662392.10.20.22.4.2" /> <id nullFlavor="NA" /> < code codeSystem="local" code="38712-2" displayName="Urine propoxyphene detection " /> <statusCode code="completed" /> <effectiveTime value= "" /> <value unit="" xsi:type="PQ" value="NEGATIVE" /> <referenceRange> <observationRange> <text>NEGATIVE </text> </observationRange> </referenceRange> </ observation> </component> </organizer> </entry> <entry> <organizer moodCode="EVN" classCode="BATTERY"> <templateId root= "2.16.840.1.455776.10..22.4.1" /> <id nullFlavor="NA" /> <code codeSystem="local" code="630-4" displayName="Bacterial urine culture" /> < statusCode code="completed" /> <component> <observation moodCode= "EVN" classCode="OBS"> <templateId root="2.16.840.1.501417.10...4.2 " /> <id nullFlavor="NA" /> <code codeSystem="local" code="630 -4" displayName="Bacterial urine culture" /> <statusCode code= "completed" /> <effectiveTime value="011680847158" /> <value unit="" xsi:type="PQ" value="27158297" /> <referenceRange> < observationRange> <text>NRG</text> </observationRange> </referenceRange> </observation> </component> < component> <observation moodCode="EVN" classCode="OBS"> < templateId root="2.16.840.1.799525.10...4.2" /> <id nullFlavor="NA " /> <code codeSystem="local" code="CC" displayName="COLONY COUNT" /> <statusCode code="completed" /> <effectiveTime value= "984557095609" /> <value unit="" xsi:type="PQ" value=">100,000/ML" / > <referenceRange> <observationRange> <text>NRG </text> </observationRange> </referenceRange> </ observation> </component> <component> <observation moodCode= "EVN" classCode="OBS"> <templateId root="05.02.840.1.058578.10...4.2 " /> <id nullFlavor="NA" /> <code codeSystem="local" code= "FTXENTRY" displayName="FTX;REPORTABLE" /> <statusCode code="completed " /> <effectiveTime value="291575089154" /> <value unit="" xsi :type="PQ" value="SENSITIVITY REPORTED AT 1756, 06-25-17" /> < referenceRange> <observationRange> <text>NRG</text> </observationRange> </referenceRange> </observation> </component> <component> <observation moodCode="EVN" classCode= "OBS"> <templateId root="05.02.840.1.426418.10..4.2" /> < id nullFlavor="NA" /> <code codeSystem="local" code="URINERES" displayName="URINE CULTURE RESULTS" /> <statusCode code="completed" /> <effectiveTime value="087355191897" /> <value unit="" xsi: type="PQ" value="PLUS" /> <referenceRange> <observationRange > <text>NRG</text> </observationRange> </ referenceRange> </observation> </component> </organizer> </entry > <entry> <organizer moodCode="EVN" classCode="BATTERY"> <templateId root="05.02.840.1.764017.10..4.1" /> <id nullFlavor="NA" /> <code codeSystem="local" code="17001-8" displayName="Bacterial susceptibility panel" / > <statusCode code="completed" /> <component> <observation moodCode="EVN" classCode="OBS"> <templateId root= "05.02.840.1.390926.01.03.22.4.2" /> <id nullFlavor="NA" /> < code codeSystem="local" code="267-5" displayName="Gentamicin susceptibility test by minimum inhibitory concentration" /> <statusCode code= "completed" /> <effectiveTime value="345793705424" /> <value unit="" xsi:type="PQ" value="<=" /> <interpretationCode codeSystem= "local" code="*" /> <referenceRange> <observationRange> <text>NRG</text> </observationRange> </ referenceRange> </observation> </component> <component> <observation moodCode="EVN" classCode="OBS"> <templateId root= "16.840.1.803034.01.03.224.2" /> <id nullFlavor="NA" /> < code codeSystem="local" code="516-5" displayName="Trimethoprim/sulfamethoxazole susceptibility test by minimum inhibitoryconcentration" /> <statusCode code="completed" /> <effectiveTime value="008802323659" /> < value unit="" xsi:type="PQ" value="S" /> <interpretationCode codeSystem ="local" code="*" /> <referenceRange> <observationRange> <text>NRG</text> </observationRange> </ referenceRange> </observation> </component> <component> <observation moodCode="EVN" classCode="OBS"> <templateId root= "16.840.1.416198.10.4.2" /> <id nullFlavor="NA" /> < code codeSystem="local" code="28-1" displayName="Ampicillin susceptibility test by minimum inhibitory concentration" /> <statusCode code="completed" / > <effectiveTime value="761429844916" /> <value unit="" xsi: type="PQ" value="R" /> <interpretationCode codeSystem="local" code="*" /> <referenceRange> <observationRange> <text> NRG</text> </observationRange> </referenceRange> </ observation> </component> <component> <observation moodCode= "EVN" classCode="OBS"> <templateId root="216.840.1.785376.10..22.4.2 " /> <id nullFlavor="NA" /> <code codeSystem="local" code="508 -2" displayName="Tobramycin susceptibility test by minimum inhibitory concentration" /> <statusCode code="completed" /> < effectiveTime value="327249867153" /> <value unit="" xsi:type="PQ" value="<=" /> <interpretationCode codeSystem="local" code="*" /> <referenceRange> <observationRange> <text>NRG</ text> </observationRange> </referenceRange> </ observation> </component> <component> <observation moodCode= "EVN" classCode="OBS"> <templateId root="216.840.1.451750...4.2 " /> <id nullFlavor="NA" /> <code codeSystem="local" code="76- 0" displayName="Cefazolin susceptibility test by minimum inhibitory concentration" /> <statusCode code="completed" /> < effectiveTime value="791108990238" /> <value unit="" xsi:type="PQ" value="<=" /> <interpretationCode codeSystem="local" code="*" /> <referenceRange> <observationRange> <text>NRG</ text> </observationRange> </referenceRange> </ observation> </component> <component> <observation moodCode= "EVN" classCode="OBS"> <templateId root="216.840.1.564358.10.4.2 " /> <id nullFlavor="NA" /> <code codeSystem="local" code="141 -2" displayName="Ceftriaxone susceptibility test by minimum inhibitory concentration" /> <statusCode code="completed" /> < effectiveTime value="111500419872" /> <value unit="" xsi:type="PQ" value="<=" /> <interpretationCode codeSystem="local" code="*" /> <referenceRange> <observationRange> <text>NRG</ text> </observationRange> </referenceRange> </ observation> </component> <component> <observation moodCode= "EVN" classCode="OBS"> <templateId root="216.840.1.165243.01.03.224.2 " /> <id nullFlavor="NA" /> <code codeSystem="local" code="32- 3" displayName="Ampicillin/sulbactam susceptibility test by minimum inhibitory concentration" /> <statusCode code="completed" /> < effectiveTime value="904867621929" /> <value unit="" xsi:type="PQ" value="S" /> <interpretationCode codeSystem="local" code="*" /> <referenceRange> <observationRange> <text>NRG</text> </observationRange> </referenceRange> </observation > </component> <component> <observation moodCode="EVN" classCode="OBS"> <templateId root="216.840.1.802249.10.4.2" /> <id nullFlavor="NA" /> <code codeSystem="local" code="412-7" displayName="Piperacillin/tazobactam susceptibility test by minimum inhibitory concentration" /> <statusCode code="completed" /> < effectiveTime value="005228678176" /> <value unit="" xsi:type="PQ" value="S" /> <interpretationCode codeSystem="local" code="*" /> <referenceRange> <observationRange> <text>NRG</text> </observationRange> </referenceRange> </observation > </component> <component> <observation moodCode="EVN" classCode="OBS"> <templateId root="216.840.1.741424.10..22.4.2" /> <id nullFlavor="NA" /> <code codeSystem="local" code="185-9" displayName="Ciprofloxacin susceptibility test by minimum inhibitory concentration" /> <statusCode code="completed" /> < effectiveTime value="177864308068" /> <value unit="" xsi:type="PQ" value="<=" /> <interpretationCode codeSystem="local" code="*" /> <referenceRange> <observationRange> <text>NRG</ text> </observationRange> </referenceRange> </ observation> </component> <component> <observation moodCode= "EVN" classCode="OBS"> <templateId root="216.840.1.560665.10...4.2 " /> <id nullFlavor="NA" /> <code codeSystem="local" code= "6652-2" displayName="Meropenem susceptibility test by minimum inhibitory concentration" /> <statusCode code="completed" /> < effectiveTime value="987043452050" /> <value unit="" xsi:type="PQ" value="<=" /> <interpretationCode codeSystem="local" code="*" /> <referenceRange> <observationRange> <text>NRG</ text> </observationRange> </referenceRange> </ observation> </component> <component> <observation moodCode= "EVN" classCode="OBS"> <templateId root="216.840.1.687309.10..4.2 " /> <id nullFlavor="NA" /> <code codeSystem="local" code="363 -2" displayName="Nitrofurantoin susceptibility test by minimum inhibitory concentration" /> <statusCode code="completed" /> < effectiveTime value="657678234027" /> <value unit="" xsi:type="PQ" value="<=" /> <interpretationCode codeSystem="local" code="*" /> <referenceRange> <observationRange> <text>NRG</ text> </observationRange> </referenceRange> </ observation> </component> <component> <observation moodCode= "EVN" classCode="OBS"> <templateId root="216.840.1.096462.104.2 " /> <id nullFlavor="NA" /> <code codeSystem="local" code="44- 8" displayName="Aztreonam susceptibility test by minimum inhibitory concentration" /> <statusCode code="completed" /> < effectiveTime value="540980746869" /> <value unit="" xsi:type="PQ" value="<=" /> <interpretationCode codeSystem="local" code="*" /> <referenceRange> <observationRange> <text>NRG</ text> </observationRange> </referenceRange> </ observation> </component> <component> <observation moodCode= "EVN" classCode="OBS"> <templateId root="216.840.1.291184.10.4.2 " /> <id nullFlavor="NA" /> <code codeSystem="local" code= "6984-9" displayName="Extended spectrum beta lactamase (ESBL) producing bacteria susceptibility test by minimum inhibitory concentration" /> < statusCode code="completed" /> <effectiveTime value="038057991176" /> <value unit="" xsi:type="PQ" value="-" /> <referenceRange> <observationRange> <text>NRG</text> </ observationRange> </referenceRange> </observation> </ component> </organizer> </entry> <entry> <organizer moodCode="EVN" classCode="BATTERY"> <templateId root="2.16.840.1.713563.10.20.22.4.1" /> <id nullFlavor="NA" /> <code codeSystem="local" code="4558" displayName="CULTURE, GENITAL" /> <statusCode code="completed" /> < component> <observation moodCode="EVN" classCode="OBS"> < templateId root="2.16.840.1.958827.10.20.22.4.2" /> <id nullFlavor="NA " /> <code codeSystem="local" code="26195840" displayName="CULTURE, GENITAL" /> <statusCode code="completed" /> <effectiveTime value="483083169685" /> <value unit="" xsi:type="PQ" value="SEE NOTE" / > <interpretationCode codeSystem="local" code="*" /> < referenceRange> <observationRange> <text>NRG</text> </observationRange> </referenceRange> </observation> </component> </organizer> </entry></section> Encounters ACCT No. Visit Date/Time Discharge Status Pt. Type Provider Facility Loc./Unit Complaint [id number] 10/03/2012 03:10:00 10/03/2012 06:49:00 DIS Emergency Melissa PRESTON, Joe Leslie [facility] [id number] 09/17/2012 13:07:00 09/26/2012 14:32:00 DIS Inpatient Awa Prabhakar MD [facility] on [address] [id number] 07/02/2012 12:33:00 07/02/2012 13:45:00 DIS Emergency Francis Carranza MD [facility] [id number] 07/01/2012 14:03:00 07/01/2012 15:55:00 DIS Emergency Kelly PRESTON, Hayden Ortiz [facility] [id number] 03/30/2012 15:25:00 03/30/2012 17:12:00 DIS Emergency Reza Alvarez DO [facility] [id number] 02/17/2012 05:55:00 02/17/2012 23:59:59 CLS Outpatient Toma PRESTON, Cole Leslie [facility] on [address] [id number] 12/23/2011 07:26:00 12/23/2011 09:20:00 DIS Emergency Luz Marina Glass MD [facility] on [facility] [id number] 12/22/2011 00:28:00 12/22/2011 03:05:00 DIS Emergency Terence Couch MD [facility] [id number] 09/01/2012 17:30:00 Document Registration [id number] 08/20/2012 14:00:00 Document Registration [id number] 09/26/2017 11:40:00 Document Registration [id number] 09/26/2017 11:40:00 ACT Outpatient MICHAEL MENJIVAR [facility] [id number] 06/02/2017 14:40:00 Document Registration [id number] 05/02/2017 08:55:00 Document Registration [id number] 04/11/2017 10:00:00 Document Registration [id number] 03/05/2017 14:40:00 Document Registration [id number] 02/21/2017 14:00:00 Document Registration [id number] 12/31/2016 11:20:00 Document Registration [id number] 12/03/2016 16:20:00 Document Registration [id number] 12/02/2016 09:55:00 Document Registration [id number] 01/02/2017 16:07:00 Document Registration [id number] 12/11/2015 13:40:00 12/11/2015 23:59:00 DIS Outpatient [facility]normal findings on diagnostic imaging. [id number] 06/11/2015 16:23:00 06/11/2015 18:41:00 DIS Emergency Brad Kahn MD [facility] ED back pain [id number] 06/09/2015 18:59:00 06/09/2015 19:39:00 DIS Emergency KalaGlen almendarez [facility] on [facility] ED back pain [id number] 02/22/2015 15:14:00 02/22/2015 17:55:00 DIS Emergency Francis Carranza MD [facility] on [facility] ED eval [id number] 12/30/2015 05:17:04 Document Registration [id number] 12/28/2015 05:17:06 Document Registration [id number] 12/27/2015 05:17:31 Document Registration [id number] 12/26/2015 05:18:03 Document Registration [id number] 12/25/2015 05:15:52 Document Registration [id number] 12/24/2015 15:56:00 ACT Inpatient Mcnulty Samuel [facility] F8SW methamphetamine use, homicidal ideation [id number] 06/12/2015 05:15:50 Document Registration [id number] 02/23/2015 05:17:23 Document Registration [id number] 12/05/2015 00:00:00 DIS Document Registration [id number] 11/05/2014 03:51:12 ACT Document Registration [id number] 12/26/2015 14:32:09 12/26/2015 23:59:59 CLS Outpatient Jose Pace [id number] 11/11/2016 20:36:00 11/11/2016 22:10:00 DIS Outpatient ELENA [facility] [id number] 07/22/2016 20:40:00 07/22/2016 22:56:00 DIS Outpatient ELENA KELBY [id number] 07/22/2016 21:29:50 Document Registration [id number] 06/27/2017 08:00:00 06/27/2017 23:59:59 CLS Outpatient Peoples [facility] [id number] 09/09/2017 20:16:00 09/09/2017 20:47:00 DIS Outpatient CATHY MATHIS [facility] ER BUG BITE [id number] 07/24/2017 12:54:00 07/24/2017 23:59:59 CLS Outpatient GEORGE ESCALANTE ENAMEL DIPPER [facility] CARD SOB,OTHER CHEST PAIN [id number] 07/08/2017 12:10:00 07/08/2017 23:59:59 CLS Outpatient GEORGE ESCALANTE ENAMEL DIPPER [facility] CARD SOB,OTHER CHEST PAIN [id number] 06/24/2017 15:12:00 06/24/2017 16:59:00 DIS Emergency SHILOH JIM [employer] [facility] ER LOWER BACK PAIN;CHEST TIGHTNESS;COUGH [id number] 04/17/2017 14:33:00 04/17/2017 23:59:59 CLS Outpatient MICHAEL MENJIVAR APRN [facility] RAD HIV ANTIBODY POSITIVE [id number] 03/24/2017 11:09:00 03/24/2017 14:12:00 DIS Outpatient IDANIA CHAU DO [facility] ENDO CHANGE IN BOWEL MOVEMENTS [id number] 03/19/2017 05:34:00 03/19/2017 13:18:00 DIS Outpatient IDANIA CHAU DO [facility] PREOP COLONOSCOPY [id number] 03/12/2017 06:57:00 03/12/2017 23:59:59 CLS Outpatient IDANIA CHAU DO [facility] ENDO CHANGE IN BOWEL MOVEMENTS [id number] 03/06/2017 05:33:00 03/06/2017 13:46:00 DIS Outpatient IDANIA CHAU DO [facility] PREOP COLONOSCOPY/EGD [id number] 12/18/2016 12:03:00 12/18/2016 13:43:00 DIS Emergency MARIAJOSE KINGSTON [facility] ER ABD/LOWER BACK PAIN [id number] 12/06/2016 14:01:00 12/06/2016 23:59:59 CLS Outpatient ANISH MO APRN [facility] RT COPD BRONCHITIS J44.9 [id number] 10/18/2016 14:14:00 10/18/2016 17:14:00 DIS Emergency JIMSHILOH [employer]PER[employer] [facility] ER DIARRHEA/DIZZINESS [id number] 09/25/2016 13:20:00 09/25/2016 23:59:59 CLS Outpatient DARYN STOREY Mariama ENAMEL DIPPER [facility] RAD R93.0 [id number] 05/23/2016 11:07:00 05/23/2016 23:59:59 CLS Outpatient STEFFANIE LUNSFORD ANISH R [employer]PER[employer] [facility] RAD ABN CT OF BRAIN [id number] 03/19/2016 12:29:00 03/19/2016 23:59:59 CLS Outpatient SAMUEL GANDHI MD, FACC, FACP CCDS [facility] RAD HX OF ACUTE MYOCARDIAL INFARCTION,TOBACCO USER [id number] 03/17/2016 13:42:00 03/17/2016 16:44:00 DIS Emergency JESSICA DO DIXIE K [facility] ER DIZZINESS/DIFF HAVING BOWEL MOVEMENT [id number] 03/10/2016 18:17:00 03/10/2016 20:08:00 DIS Emergency ARLETH PRESTON, ALEKSANDAR Leslie [facility] ER KIDNEY PAIN;HEADACHES [id number] 03/10/2016 11:42:00 03/10/2016 13:55:00 DIS Emergency PA PRESTON, ANNIE Ortiz [facility] ER SOA/LOW BACK PAIN [id number] 02/23/2016 10:16:00 02/23/2016 23:59:59 CLS Outpatient SAMUEL GANDHI MD, FACC, FACP CCDS [facility] CARD HX OF MYOCARDIAL INFARCTION,TOBACCO USER [id number] 02/15/2016 08:30:00 02/15/2016 23:59:59 CLS Outpatient SAMUEL GANDHI MD, FACC, FACP CCDS [facility] CARD I25.2,Z72.0, R94.31 [id number] 10/15/2017 11:01:00 PEN Preadmit MICHAEL MENJIVAR SUPERVIS[employer] [facility] REHAB LUMBAGO WITH R SCIATICA [id number] 01/02/2017 22:07:00 Document Registration [id number] 12/24/2015 15:56:00 Document Registration [id number] 01/03/2017 11:08:00 Document Registration [id number] 01/03/2017 10:09:00 Document Registration [id number] 12/06/2016 11:08:00 Document Registration [id number] 11/22/2015 00:47:00 11/24/2015 16:48:00 DIS Inpatient Hamlet PRESTON, Gilles [address] [id number] 11/13/2015 13:54:00 11/13/2015 15:44:00 DIS Emergency Gee PRESTON, Riki [facility] [id number] 01/02/2015 21:27:00 01/02/2015 22:46:00 DIS [id number]/2014 23:46:00 11/05/2014 03:30:00 DIS Emergency Kip ANDRADE, [facility] [id number] 10/10/2014 08:41:00 10/10/2014 11:10:00 DIS Emergency Delia PRESTON, Annie [facility] [id number] 09/21/2014 13:50:00 09/21/2014 18:02:00 DIS Outpatient Jesi PRESTON, [facility] [id number] 08/15/2014 15:40:00 08/15/2014 17:05:00 DIS Emergency [facility] [id number] 04/17/2014 18:03:00 04/17/2014 20:07:00 DIS Emergency Ken PRESTON, [facility] [id number] 10/18/2013 23:10:00 10/19/2013 00:54:00 DIS [id number] 02/04/2013 13:20:00 02/04/2013 14:06:00 DIS Emergency [facility] [id number] 01/30/2013 13:20:00 01/30/2013 14:41:00 DIS Emergency Rakan PRESTON, Yamel [facility] W.ANDERSON [id number] 04/19/2012 20:34:00 04/19/2012 22:32:00 DIS Emergency Delia PRESTON, Annie Ashley [facility] W.ANDERSON [id number] 01/07/2012 08:25:00 01/07/2012 08:25:00 DIS Outpatient Morales PRESTON, Cyndie Guillaume [facility] W.END [id number] 2011 11:06:00 2011 15:40:00 DIS Emergency Kim PRESTON, Xenia Ashley [facility] W.EDN [id number] 2011 00:00:00 2011 00:00:00 CAN Outpatient Aki PRESTON, Awa Schroeder [facility] [id number] 12/06/2016 17:08:00 Document Registration [id number] 11/22/2015 10:58:00 Document Registration
== END 2017-09-27 18:31 | disposition home or self-care (01) ==
LOC: EDUNIT# 16:53 → ER 16:54
DX: L29.9 Pruritus, unspecified (principal); J44.9 Chronic obstructive pulmonary disease, unspecified; K21.9 Gastro-esophageal reflux disease without esophagitis; F90.9 Attention-deficit hyperactivity disorder, unspecified type; F41.9 Anxiety disorder, unspecified; F43.10 Post-traumatic stress disorder, unspecified; F31.9 Bipolar disorder, unspecified; Z87.891 Personal history of nicotine dependence; Z95.0 Presence of cardiac pacemaker; Z90.89 Acquired absence of other organs; Z98.84 Bariatric surgery status; Z98.890 Other specified postprocedural states
CPT/HCPCS: 99283

== ENCOUNTER 2017-10-02 20:58 | Emergency (ER) | payer MEDICARE ==
[~2017-10-02] VITALS: Ht 167.6 cm; Wt 86.2 kg
--- NOTE | 2017-10-02 21:17 | ED Abdominal Pain ---
General Stated Complaint: ABD PAIN, DIZZY, NO BM LATELY Source of Information: Patient Exam Limitations: No Limitations History of Present Illness Date Seen by Provider: Oct 02, 2017 Time Seen by Provider: 21:15 Initial Comments 46 year old HIV+ female to ER with reports of abdominal pain and about 3-4 days of not having a bowel movement. Lightheadedness and dizziness for a few days as well. She also reports itching "all over" and "soapy hair" and "bugs like this ( pointing to lint on her shirt), but people tell me theyre not bugs". No reports of fevers. Denies having used any methamphetamines in 2 months. She has an appointment with Dr Prabhakar whom she sees for the HIV tomorrow at 1030 am. She was seen here a few days ago for the itching and given atarax. The itching has improved since starting the atarax Timing/Duration: 3-4 Days Severity/Quality: Moderate Location: Generalized Abdomen Radiation: No Radiation Activities at Onset: None Allergies and Home Medications Allergies Coded Allergies: No Known Drug Allergies (Unverified , 03/10/16) Home Medications Atazanavir Sulfate/Cobicistat 1 Each Tablet, 1 EACH PO DAILY, (Reported) Cephalexin 500 Mg Capsule, 500 MG PO TID Prescribed by: CATHY MATHIS on 09/09/172044 Emtricitabine/Tenofov Alafenam 1 Each Tablet, 1 EACH PO DAILY, (Reported) Hydrocodone/Acetaminophen 1 Each Tablet, 1 EACH PO Q4H PRN for PAIN-MODERATE TO SEVERE Do not fill unless bactrim ds is also filled. Prescribed by: SHILOH JIM on 06/24/17 162 Levothyroxine Sodium 50 Mcg Tablet, 50 MCG PO DAILY, (Reported) Omeprazole 40 Mg Capsule.dr, 40 MG PO DAILY, (Reported) Paliperidone 6 Mg Tab.er.24, 6 MG PO DAILY, (Reported) Polyethylene Glycol 3350 17 Gm Powd.pack, 17 GM PO BID Prescribed by: SHILOH JIM on 10/02/17 2210 Ropinirole HCl 1 Mg Tablet, 1 MG PO HS, (Reported) Sulfamethoxazole/Trimethoprim 1 Each Tablet, 1 EACH PO BID Prescribed by: SHILOH JIM on 06/24/17 1623 Temazepam 30 Mg Capsule, 30 MG PO HS, (Reported) Patient Home Medication List Home Medication List Reviewed: Yes Review of Systems Constitutional: see HPI EENTM: No Symptoms Reported Respiratory: No Symptoms Reported Cardiovascular: No Symptoms Reported Gastrointestinal: See HPI, Abdominal Pain Genitourinary: No Symptoms Reported Musculoskeletal: no symptoms reported Skin: no symptoms reported Psychiatric/Neurological: No Symptoms Reported Endocrine: No Symptoms Reported Hematologic/Lymphatic: No Symptoms Reported Past Rybrswh-Jatdfj-Rihchf Hx Patient Social History Drug of Choice: meth, cannibus Type Used: Cigarettes Former Smoker, Quit: August 05, 2017 2nd Hand Smoke Exposure: No Recent Foreign Travel: No Contact w/Someone Who Travel: No Recent Hopitalizations: No Immunizations Up To Date Tetanus Booster (TDap): Unknown Date of Influenza Vaccine: Jan 04, 2017 Seasonal Allergies Seasonal Allergies: No Past Medical History Surgeries: Yes (GASTRIC BYPASS, ABDOMINOPLASTY; HERNIA REPAIR) Abdominal, Adenoidectomy, Section, Gallbladder, Orthopedic, Pacemaker, Tonsillectomy Respiratory: Yes COPD Cardiac: Yes (PACEMAKER FOR BRADYCARDIA) Neurological: Yes Vertigo Reproductive Disorders: No HIV/AIDS: Yes Genitourinary: Yes Kidney Infection Gastrointestinal: Yes Gastroesophageal Reflux, Chronic Constipation, Ulcer Musculoskeletal: No Endocrine: No HEENT: No Cancer: No Psychosocial: Yes ADD/ADHD, Anxiety, PTSD, Bipolar, Depression Integumentary: No Blood Disorders: Yes (hiv POS) Adverse Reaction/Blood Tranf: No Family Medical History No Pertinent Family Hx Physical Exam Vital Signs Vital Signs - First Documented 10/02/17 21:17 Temp 99.6 Pulse 72 Resp 16 B/P (MAP) 124/61 (82) Pulse Ox 99 Capillary Refill : Height/Weight/BMI Height: 5'4.00" Weight: 180lbs. 0.0oz. 81.899748pa; 31.0 BMI Method:Stated General Appearance: WD/WN, no apparent distress HEENT: PERRL/EOMI, normal ENT inspection Respiratory: no respiratory distress, no accessory muscle use Cardiovascular: regular rate, rhythm, no murmur Gastrointestinal: normal bowel sounds, non tender, soft, distended; No guarding , No rebound, No tenderness Extremities: normal range of motion, non-tender Neurologic/Psychiatric: alert, normal mood/affect, oriented x 3 Skin: normal color, warm/dry Progress/Results/Core Measures Results/Orders Lab Results Laboratory Tests Test 10/02/17 21:14 10/02/17 21:15 10/02/17 21:18 Range/Units White Blood Count 7.2 4.3-11.0 10^3/uL Red Blood Count 4.76 4.35-5.85 10^6/uL Hemoglobin 12.8 11.5-16.0 G/DL Hematocrit 38 35-52 % Mean Corpuscular Volume 80 80-99 FL Mean Corpuscular Hemoglobin 27 25-34 PG Mean Corpuscular Hemoglobin Concent 34 32-36 G/DL Red Cell Distribution Width 19.5 H 10.0-14.5 % Platelet Count 281 130-400 10^3/uL Mean Platelet Volume 11.2 H 7.4-10.4 FL Neutrophils (%) (Auto) 81 H 42-75 % Lymphocytes (%) (Auto) 13 12-44 % Monocytes (%) (Auto) 5 0-12 % Eosinophils (%) (Auto) 0 0-10 % Basophils (%) (Auto) 0 0-10 % Neutrophils # (Auto) 5.8 1.8-7.8 X 10^3 Lymphocytes # (Auto) 1.0 1.0-4.0 X 10^3 Monocytes # (Auto) 0.4 0.0-1.0 X 10^3 Eosinophils # (Auto) 0.0 0.0-0.3 10^3/uL Basophils # (Auto) 0.0 0.0-0.1 10^3/uL Sodium Level 138 135-145 MMOL/L Potassium Level 3.6 3.6-5.0 MMOL/L Chloride Level 109 H 98-107 MMOL/L Carbon Dioxide Level 20 L 21-32 MMOL/L Anion Gap 9 5-14 MMOL/L Blood Urea Nitrogen 17 7-18 MG/DL Creatinine 0.79 0.60-1.30 MG/DL Estimat Glomerular Filtration Rate > 60 BUN/Creatinine Ratio 22 Glucose Level 165 H 70-105 MG/DL Calcium Level 9.3 8.5-10.1 MG/DL Total Bilirubin 0.5 0.1-1.0 MG/DL Aspartate Amino Transf (AST/SGOT) 15 5-34 U/L Alanine Aminotransferase (ALT/SGPT) 13 0-55 U/L Alkaline Phosphatase 75 40-136 U/L Troponin I < 0.30 <0.30 NG/ML Total Protein 7.6 6.4-8.2 GM/DL Albumin 4.5 3.2-4.5 GM/DL Urine Test NEGATIVE NEGATIVE Urine Color YELLOW Urine Clarity CLEAR Urine pH 6.5 5-9 Urine Specific [place] 1.015 L 1.016-1.022 Urine Protein NEGATIVE NEGATIVE Urine Glucose (UA) NEGATIVE NEGATIVE Urine Ketones 1+ H NEGATIVE Urine Nitrite NEGATIVE NEGATIVE Urine Bilirubin NEGATIVE NEGATIVE Urine Urobilinogen 1 NORMAL MG/DL Urine Leukocyte Esterase 1+ H NEGATIVE Urine RBC (Auto) NEGATIVE NEGATIVE Urine RBC RARE /HPF Urine WBC NONE /HPF Urine Squamous Epithelial Cells 5-10 /HPF Urine Crystals NONE /LPF Urine Bacteria NEGATIVE /HPF Urine Casts NONE /LPF Urine Mucus NEGATIVE /LPF Urine Culture Indicated NO Urine Opiates Screen NEGATIVE NEGATIVE Urine Oxycodone Screen NEGATIVE NEGATIVE Urine Methadone Screen NEGATIVE NEGATIVE Urine Propoxyphene Screen NEGATIVE NEGATIVE Urine Barbiturates Screen NEGATIVE NEGATIVE Ur Tricyclic Antidepressants Screen NEGATIVE NEGATIVE Urine Phencyclidine Screen NEGATIVE NEGATIVE Urine Amphetamines Screen NEGATIVE NEGATIVE Urine Methamphetamines Screen NEGATIVE NEGATIVE Urine Benzodiazepines Screen POSITIVE H NEGATIVE Urine Cocaine Screen NEGATIVE NEGATIVE Urine Cannabinoids Screen NEGATIVE NEGATIVE My Orders Orders - SHILOH JIM APRN Ct Head Wo (10/02/17 21:13) Ct Abdomen/Pelvis W (10/02/17 21:13) Cbc With Automated Diff (10/02/17 21:13) Comprehensive Metabolic Panel (10/02/17 21:13) Ua Culture If Indicated (10/02/17 21:13) Drug Screen Stat (Urine) (10/02/17 21:13) Iv Heplock-Insert (Order) (10/02/17 21:13) Ekg Tracing (10/02/17 21:13) Chest 1 View, Ap/Pa Only (10/02/17 21:13) Troponin I (10/02/17 21:13) Hcg,Qualitative Urine (10/02/17 21:29) Iohexol Injection (Omnipaque 350 Mg/Ml 1 (10/02/17 22:00) Ns (Ivpb) (Sodium Chloride 0.9%) (10/02/17 22:00) Medications Given in ED Current Medications Medications Dose Ordered Sig/Brit Route Start Time Stop Time Status Last Admin Dose Admin Iohexol 100 ml ONCE ONCE IV 10/02/17 22:00 10/02/17 22:01 DC 10/02/17 21:59 100 ML Sodium Chloride 250 ml ONCE ONCE IV 10/02/17 22:00 10/02/17 22:01 DC 10/02/17 21:59 80 ML Vital Signs/I&O 10/02/17 21:17 Temp 99.6 Pulse 72 Resp 16 B/P (MAP) 124/61 (82) Pulse Ox 99 Diagnostic Imaging Diagonstic Imaging: CT Plain Films/CT/US/NM/MRI: abdomen, pelvis, head Comments NAME: BOBBY FUNES [facility] REC#: [id number] PT STATUS: REG ER : 1970 PHYSICIAN: SHILOH JIM APRN ADMIT DATE: 10/02/17/ER Draft Date of Exam:10/02/17 CT HEAD WO Clinical indication: Patient with headaches and dizziness. Exam: Axial CT scan of the brain performed without IV contrast. Comparison: CT scan of the brain dated 09/25/2016. Findings: Stable 4 mm hyperdense area seen in the region of the foramen of Quintana of the third ventricle at midline. This may represent a colloid cyst. There is no evidence of hydrocephalus. The remainder of the brain parenchyma is unremarkable. There is no acute cerebral infarct, intracranial hemorrhage or brain herniation. There is normal aguirre-white matter distinction. Basal cisterns are unremarkable. The extracranial soft tissue, skull and orbits are unremarkable. Paranasal sinuses and temporal bone structures show no significant abnormality. Impression: 1: Stable CT scan of the brain with no evidence of interval acute intracranial process. 2: Stable 4 mm hyperdense area in the region of the foramen of Quintana near the third ventricle at midline may represent colloid cyst. There is no hydrocephalus. Dictated on workstation # [id number] Dict: 10/02/17 2158 Trans: 10/02/17 2204 [facility] [id number] Interpreted by: CAMI SQUIRES MD Electronically signed by: Departure Impression Primary Impression: Generalized pruritus Additional Impressions: Abdominal pain Constipation Disposition: 01 HOME, SELF-CARE Condition: Stable Departure-Patient Inst. Decision time for Depature: 22:09 Referrals: MICHAEL MENJIVAR APRN (PCP) Primary Care Physician [facility] (Family) Primary Care Physician Patient Instructions: Constipation in Adults, Itchy Skin Add. Discharge Instructions: 1. Keep your appointment with Dr Prabhakar tomorrow. Return to ER for any concerns 2. Laxatives as directed Scripts Polyethylene Glycol 3350 (Miralax) 17 Gm Powd.pack 17 GM PO BID, #10 EACH Prov: SHILOH JIM APRN 10/02/17 Copy Copies To 1: CHRISTIAN LEE PETER J APRN Oct 02, 2017 21:17
[2017-10-02 21:20] LABS: BASOPHILS % (AUTO) 0 % (0-10); EOSINOPHILS % (AUTO) 0 % (0-10); HEMATOCRIT 38 % (35-52); HEMOGLOBIN 12.8 G/DL (11.5-16.0); LYMPHOCYTES % (AUTO) 13 % (12-44); MEAN CORPUSCULAR HEMOGLOBIN 27 PG (25-34); MEAN CORPUSCULAR HGB CONC 34 G/DL (32-36); MEAN CORPUSCULAR VOLUME 80 FL (80-99); MEAN PLATELET VOLUME 11.2 FL (7.4-10.4); MONOCYTES # (AUTO) 0.4 X 10^3 (0.0-1.0); MONOCYTES % (AUTO) 5 % (0-12); NEUTROPHILS # (AUTO) 5.8 X 10^3 (1.8-7.8); NEUTROPHILS % (AUTO) 81 % (42-75); PLATELET COUNT 281 10^3/uL (130-400); RED BLOOD COUNT 4.76 10^6/uL (4.35-5.85); RED CELL DISTRIBUTION WIDTH 19.5 % (10.0-14.5); WHITE BLOOD COUNT 7.2 10^3/uL (4.3-11.0)
[2017-10-02 21:31] LABS: BILIRUBIN,URINE NEGATIVE (NEGATIVE); CLARITY,URINE CLEAR; COLOR,URINE YELLOW; GLUCOSE, URINE (UA) NEGATIVE (NEGATIVE); KETONES,URINE 1+ (NEGATIVE); LEUKOCYTE ESTERASE ,URINE 1+ (NEGATIVE); NITRITE,URINE NEGATIVE (NEGATIVE); PH,URINE 6.5 (5-9); PROTEIN,URINE NEGATIVE (NEGATIVE); UROBILINOGEN,URINE 1 MG/DL (NORMAL)
[2017-10-02 21:40] LABS: ALANINE AMINOTRANSFERASE 13 U/L (0-55); ALBUMIN 4.5 GM/DL (3.2-4.5); ALKALINE PHOSPHATASE 75 U/L (40-136); BILIRUBIN,TOTAL 0.5 MG/DL (0.1-1.0); BUN/CREATININE RATIO 22; CALCIUM 9.3 MG/DL (8.5-10.1); CARBON DIOXIDE 20 MMOL/L (21-32); CHLORIDE 109 MMOL/L (98-107); CREATININE SERUM 0.79 MG/DL (0.60-1.30); GFR ESTIMATED > 60; GLUCOSE 165 MG/DL (70-105); POTASSIUM 3.6 MMOL/L (3.6-5.0); SODIUM 138 MMOL/L (135-145); TOTAL PROTEIN 7.6 GM/DL (6.4-8.2)
[2017-10-02 21:41] LABS: BACTERIA,URINE NEGATIVE /HPF; RBC,URINE RARE /HPF
[2017-10-02 21:42] LABS: AMPHETAMINE SCREEN, URINE NEGATIVE (NEGATIVE); BARBITURATE SCREEN URINE NEGATIVE (NEGATIVE); BENZODIAZEPINES SCREEN URINE POSITIVE (NEGATIVE); CANNABINOID SCREEN, URINE NEGATIVE (NEGATIVE); COCAINE SCREEN URINE NEGATIVE (NEGATIVE); METHADONE STAT NEGATIVE (NEGATIVE); METHAMPHETAMINE SCREEN URINE S NEGATIVE (NEGATIVE); OPIATE SCREEN URINE NEGATIVE (NEGATIVE); OXYCODONE STAT NEGATIVE (NEGATIVE); PROPOXYPHENE STAT NEGATIVE (NEGATIVE); TRICYCLIC ANTIDEPRESSANTS SCRE NEGATIVE (NEGATIVE)
[2017-10-02] MEDS ORDERED: NS 250 ML (IVPB) BAG IV ONE (22:00)
[2017-10-02] MEDS ORDERED: IOHEXOL 350 MG/ML 100 ML (OMNIPAQUE 350) VIAL IV ONE (22:00)
--- NOTE | 2017-10-02 22:05 | Diagnostic Imaging Report ---
Clinical indication: Patient with headaches and dizziness. Exam: Axial CT scan of the brain performed without IV contrast. Comparison: CT scan of the brain dated 09/25/2016. Findings: Stable 4 mm hyperdense area seen in the region of the foramen of Quintana of the third ventricle at midline. This may represent a colloid cyst. There is no evidence of hydrocephalus. The remainder of the brain parenchyma is unremarkable. There is no acute cerebral infarct, intracranial hemorrhage or brain herniation. There is normal aguirre-white matter distinction. Basal cisterns are unremarkable. The extracranial soft tissue, skull and orbits are unremarkable. Paranasal sinuses and temporal bone structures show no significant abnormality. Impression: 1: Stable CT scan of the brain with no evidence of interval acute intracranial process. 2: Stable 4 mm hyperdense area in the region of the foramen of Quintana near the third ventricle at midline may represent colloid cyst. There is no hydrocephalus. Dictated by: Dictated on workstation # [id number]
[2017-10-02] MEDS ORDERED: POLY17PO6 PO (22:10)
--- NOTE | 2017-10-02 22:19 | Diagnostic Imaging Report ---
CLINICAL INDICATION: Patient with abdominal pain and constipation x6 days. Patient has history of gastric bypass, hernia, and cholecystectomy. EXAM: CT scan of the abdomen and pelvis performed with 100 cc of Omnipaque 350 IV contrast. Coronal and sagittal reformatted images are created. COMPARISON: CT scan of the abdomen and pelvis performed with contrast dated 10/18/2016. FINDINGS: The visualized lung bases are clear. Bones show mild spurring of the visualized lower thoracic and lumbar spine. Again noted partially visualized cardiac pacemaker wires. Again seen postop changes to the abdomen consistent with Steph-en-Y gastric bypass. There is no significant abnormality in the postop region and it appears grossly similar. Cholecystectomy changes are seen. The liver, spleen, pancreas, and adrenal glands are unremarkable. Both kidneys are unremarkable with no stones or mass seen. There is no hydronephrosis. There is no intra-abdominal free air or free fluid. There is a small to moderate amount of stool seen throughout the colon. There is no evidence of small bowel obstruction or large bowel obstruction. There is no abnormal significant bowel wall thickening. There is no abdominal ascites. The appendix is not well visualized on this exam, but there is no significant abnormality in the expected region of the appendix. Clinical correlation for resection of the appendix is suggested. The extra-abdominal and extrapelvic soft tissue structures are stable and otherwise unremarkable. Uterus and bilateral adnexal regions are unremarkable. Bladder is fluid distended with no gross abnormality. IMPRESSION: 1: Stable CT scan of the abdomen and pelvis with no interval acute abdominal or pelvic process. 2: Stable postop changes to the abdomen consistent with Steph-en-Y gastric bypass and cholecystectomy. 3: Of note, the appendix is not visualized on this exam and clinical correlation for surgical resection is suggested. There is no abnormality seen in the pericecal region. Dictated by: Dictated on workstation # [id number]
[2017-10-02 22:30] VITALS: BP 117/65
--- NOTE | 2017-10-03 07:24 | Diagnostic Imaging Report ---
Indication: Shortness of breath and abdominal pain. Frontal chest obtained at 1023 hrs. p.m., compared to 06/24/2017 Heart and mediastinal silhouette are normal in appearance. Pacemaker device is unchanged. There is no acute infiltrate or pneumothorax or pleural fluid. Impression: Unchanged pacemaker device. No focal infiltrate or pneumothorax or pleural fluid. Dictated by: Dictated on workstation # [id number]
== END 2017-10-02 22:29 | disposition home or self-care (01) ==
LOC: EDUNIT# 20:58 → ER 21:00
DX: K59.00 Constipation, unspecified (principal); L29.9 Pruritus, unspecified; J44.9 Chronic obstructive pulmonary disease, unspecified; K21.9 Gastro-esophageal reflux disease without esophagitis; F41.9 Anxiety disorder, unspecified; F43.10 Post-traumatic stress disorder, unspecified; F31.9 Bipolar disorder, unspecified; F90.9 Attention-deficit hyperactivity disorder, unspecified type; Z95.0 Presence of cardiac pacemaker; Z87.448 Personal history of other diseases of urinary system; Z21 Asymptomatic human immunodeficiency virus [HIV] infection status; Z87.891 Personal history of nicotine dependence; Z98.84 Bariatric surgery status; Z98.890 Other specified postprocedural states; Z87.19 Personal history of other diseases of the digestive system
CPT/HCPCS: 36415; 70450; 71045; 74177; 80053; 80306; 81000; 84484; 84703; 85025; 93005

== ENCOUNTER 2017-10-06 17:00 | Emergency (ER) | payer MEDICARE ==
[~2017-10-06] VITALS: Ht 160 cm; Wt 81.6 kg
[~2017-10-06 17:00] MED LIST changes: +POLY17PO6 PO
[2017-10-06 17:06] VITALS: BP 133/60
--- OUTSIDE RECORDS SUMMARY | 2017-10-06 17:14 | XMS REPORT ---
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 Name Role Phone MENJIVARNESHA RichardELE Unavailable PROBLEMS Type Condition ICD9-CM Code BNX29-UH Code Onset Dates Condition Status SNOMED Code Problem Hypertriglyceridemia E78.1 Active 552340594 Problem Gastritis determined by endoscopy K29.70 Active 0722407 Problem Iron deficiency anemia secondary to inadequate dietary iron intake D50.8 Active 764402154 Problem Generalized headaches R51 Active 678779987 Problem HIV antibody positive Z21 Active 512064472 Problem Tobacco abuse counseling Z71.6 Active 830707542 Problem Recurrent major depressive disorder, in full remission F33.42 Active 977744581 Problem Tobacco abuse Z72.0 Active 300863368 Problem Presence of cardiac pacemaker Z95.0 Active 015456242 Problem ADHD, adult residual type F90.8 Active 088889677 Problem Other specified cardiac arrhythmias I49.8 Active 432775989 Problem Coronary artery disease involving [place] coronary artery of [place] heart without angina pectoris I25.10 Active 8127191742925 Problem Low libido R68.82 Active 0624034 Problem Lumbago with sciatica, left side M54.42 Active 852367403 Problem Other chronic pain G89.29 Active 16059776 Problem Cannabis use disorder, severe, in sustained remission F12.21 Active 93325105 Problem Methamphetamine use disorder, severe, 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 Active 96008382 Problem Bipolar 1 disorder with moderate marii F31.12 Active 64308133 Problem Irritant dermatitis L24.9 Active 467948546 Problem Irregular periods N92.6 Active 97690652 Problem Lumbago with sciatica, right side M54.41 Active 308081958 Problem Irritable bowel syndrome with both constipation and diarrhea K58.2 Active 75316172 Problem Mood disorder F39 Active 54636261 Problem PTSD (post-traumatic stress disorder) F43.10 Active 24398938 Problem Cocaine use disorder, severe, in sustained remission F14.21 Active 49704585 Problem Alcohol use disorder, severe, in sustained remission F10.21 Active 21347717 Problem Obesity (BMI 30.0-34.9) E66.9 Active 373273385943268 Problem Chronic migraine without aura without status migrainosus, not intractable G43.709 Active 121990036 Problem Anxiety F41.9 Active 69720198 Problem Primary insomnia F51.01 Active 9992505 ALLERGIES No Information ENCOUNTERS Encounter Location Date Diagnosis [place] [id number] [place] [address] 53558- 2768 Oct, [facility] [place] [id number] [address] Sep, [facility] [place] [id number] [place] [address] 64165- 3664 Sep, [place] [id number] [place] [address] 34832- 5660 Sep, Other specified bacterial agents as the cause of diseases classified elsewhere B96.89 and Acute vaginitis N76.0 [facility] [place] [id number] [address] Sep, Lower abdominal pain R10.30 ; Vaginal candidiasis B37.3 ; Lumbago with sciatica, left side M54.42 ; Lumbago with sciatica, right side M54.41 ; Rash R21 ; Obesity (BMI 30.0-34.9) E66.9 ; Other specified bacterial agents as the cause of diseases classified elsewhere B96.89 and Acute vaginitis N76.0 [facility] [place] [id number] [address] Sep, [facility] [place] [id number] [place] [address] 15603- 4381 Sep, [facility] [place] [address] [address] Sep, HIV antibody positive Z21 ; Obesity (BMI 30.0-34.9) E66.9 ; Chronic migraine without aura without status migrainosus, not intractable G43.709 ; Lumbago with sciatica, right side M54.41 and Other chronic pain G89.29 [facility] [id number] [place] [address] 03334 -0881 Aug, Abdominal pain R10.9 and Acute cystitis without hematuria N30.00 [facility] [place] [id number] [place] [address] 26838- 9070 July, [facility] [place] [id number] [place] [address] 02618- 2771 Jun, [place] [address] 26037- 5149 Jun, [place] [address] 22508- 7384 May, [place] [address] 31965- 5667 May, Irritable bowel syndrome with both constipation and diarrhea K58.2 ; Tobacco abuse Z72.0 ; Tobacco abuse counseling Z71.6 ; Low libido R68.82 and Alcohol use disorder, severe, in sustained remission F10.21 [place] [address] [id number] [place] [address] 46650- 2444 May, Tobacco abuse Z72.0 [place] [address] [address] [id number] [place] [address] 76666- 2780 May, HIV antibody positive Z21 ; Irregular periods N92.6 and Low libido R68.82 [place] [address] [id number] [place] [address] 06975- 3737 May, Primary insomnia F51.01 and Folliculitis L73.9 [place] [address] [id number] [place] [address] 73120- 0823 May, HIV antibody positive Z21 ; Irregular periods N92.6 and Low libido R68.82 [place] [address] [place] [id number] [place] [address] 19386- 5296 May, [facility] [place] [id number] [place] [address] 08194- 9607 15 May, 2017 [facility] [place] [id number] [place] [address] 92965- 5682 May, [facility] [place] [address] 43090- 5017 May, Anxiety F41.9 [facility] [place] [address] 80421- 3078 May, Anxiety F41.9 [place] [address] 88354- 4297 May, [place] [address] [place] [id number] [place] [address] 89076- 5327 09 May, 2017 Acute cystitis with hematuria N30.01 ; HIV antibody positive Z21 ; Primary insomnia F51.01 ; Gastritis determined by endoscopy K29.70 ; Low libido R68.82 ; Tobacco abuse Z72.0 and Vaginal candidiasis B37.3 [place] [address] [address] [id number] [place] [address] 02182- 3359 Apr, [facility] [place] [id number] [place] [address] 00800- 8989 Apr, [place] [address] [place] [id number] [place] [address] 36342- 4324 Apr, Allergic contact dermatitis, unspecified trigger L23.9 [facility] [id number] [place] [address] 29861- 5347 Apr, [facility] [address] 64284- 2330 Apr, Irregular periods N92.6 ; Irritant dermatitis L24.9 and Anxiety F41.9 [facility] [id number] [place] [address] 93539 -0096 Apr, Vaginal discharge N89.8 and Folliculitis L73.9 [facility] [id number] [place] [address] 73060- 2132 Apr, [facility] [id number] [place] [address] 37225- 2464 Apr, [facility] [id number] [place] [address] 44176- 0504 Apr, [facility] [id number] [place] [address] 07583- 2426 Mar, HIV antibody positive Z21 ; Anxiety [...] R30.0 and Gastritis determined by endoscopy K29.70 [facility] [id number] [place] [address] 11894- 1991 Mar, [place] [address] [address] [id number] [place] [address] 04554- 4353 Mar, [facility] [id number] [place] [address] 70938- 0607 Mar, [place] [address] [place] [id number] [place] [address] 85153- 1927 Mar, [facility] [id number] [place] [address] 30974- 7579 Mar, [facility] [id number] [place] [address] 05300 -5059 Mar, Vaginal horacio B37.3 [facility] [address] [id number] [place] [address] 79797- 9171 Feb, Dysuria R30.0 ; Acute cystitis with hematuria N30.01 ; HIV antibody positive Z21 ; Eczema, unspecified type L30.9 and Wound of left lower extremity, initial encounter S81.802A [place] [address] [place] [id number] [place] [address] 63578- 1033 Feb, [place] [address] [place] [id number] [place] [address] 47905- 6537 Feb, [place] [address] 59748- 1390 Feb, [place] [address] [place] [id number] [place] [address] 30639- 5677 Feb, [place] [address] 90126- 6129 Feb, Dermatitis L30.9 ; HIV antibody positive Z21 ; Bipolar 1 disorder with moderate marii F31.12 ; History of gastric bypass Z98.890 ; Primary insomnia F51.01 ; Tobacco abuse Z72.0 ; Anxiety F41.9 and Obesity (BMI 30.0-34.9) E66.9 [place] [address] [place] [id number] [place] [address] 87576- 5499 Jan, [place] [address] [place] [id number] [place] [address] 90593- 2687 Jan, Mood disorder F39 ; PTSD (post-traumatic stress disorder) F43.10 ; Methamphetamine use disorder, severe, 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 ; Alcohol use disorder, severe, in sustained remission F10.21 ; Cannabis use disorder, severe, in sustained remission F12.21 and Cocaine use disorder, severe , in sustained remission F14.21 [place] [address] [place] [id number] [place] [address] 02918- 7004 Jan, [place] [address] [place] [id number] [place] [address] 53859- 3796 Jan, [place] [address] [place] [id number] [place] [address] 13288- 2803 Jan, [place] [address] [place] [address] 30095- 4520 Jan, [place] [address] 22510- 6779 Jan, Mood disorder F39 ; PTSD (post-traumatic stress disorder) F43.10 ; Methamphetamine use disorder, severe, 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 ; Alcohol use disorder, severe, in sustained remission F10.21 ; Cannabis use disorder, severe, in sustained remission F12.21 and Cocaine use disorder, severe , in sustained remission F14.21 [place] [address] [id number] [place] [address] 91480- 0351 Dec, [place] [address] 75126- 4644 Dec, [place] [address] [place] [id number] [place] [address] 06202- 2118 Dec, ADHD, adult residual type F90.8 ; Post traumatic stress disorder (PTSD) F43.10 and Bipolar 1 disorder with moderate marii F31.12 [place] [address] [place] [id number] [place] [address] 33438- 4659 2016 Dysuria R30.0 ; Routine screening for STI (sexually transmitted infection) Z11.3 and Routine gynecological examination Z01.419 [place] [id number] [place] [address] 63437- 3913 10 Dec, 2016 Eczema, unspecified type L30.9 ; History of UTI Z87.440 and Hospital discharge follow-up Z09 [facility] [id number] [place] [address] 30452- 8125 09 Dec, 2016 [place] [address] 64324- 6576 02 Dec, 2016 Visit for suture removal Z48.02 [facility] [id number] [place] [address] 86548 -3978 Nov, [facility] [address] 56096- 1525 Nov, [facility] [address] [address]- 5268 Nov, [facility] [address] [place] [address] 43249- 8987 Nov, [facility] [address] [place] [address] 02646- 5881 Nov, [facility] [id number] [place] [address] 78387- 9140 Nov, [facility] [id number] [place] [address] 25859- 4515 Nov, Rash R21 [facility] [id number] [place] [address] 39838 -6663 18 Nov, 2016 Abnormal stools R19.5 [facility] [id number] [place] [address] 59790 -0976 13 Nov, 2016 Rash R21 [facility] [id number] [place] [address] [id number] Sep, Dental examination Z01.20 [facility] [id number] [place] [address] 32846 -9962 Sep, Acute back pain M54.9 [facility] [address] [place] [address] 31044- 9831 Aug, [facility] [address] [place] [address] 87607- 1006 Aug, [facility] [address] [place] [address] 02003 -3024 Aug, Cough R05 and Community acquired pneumonia J18.9 [facility] [id number] [place] [address] [id number] Jun, Dental examination Z01.20 [facility] [id number] [place] [address] 45241 -9377 May, Allergic contact dermatitis, unspecified trigger L23.9 [facility] [address] [address]- 8666 Apr, [facility] [address] [place] [address] 36467- 8367 Mar, Skin sore L98.9 [facility] [id number] [place] [address] 46959 -6137 Mar, Constipation, unspecified constipation type K59.00 [facility] [place] [id number] [place] [address] 78556- 3718 Feb, Skin sore L98.9 ; Excoriation (skin-picking) disorder F42.4 and HIV antibody positive Z21 [facility] [address] [place] [address] 79192- 5447 Feb, Routine health maintenance Z00.00 ; Family history of diabetes mellitus Z83.3 ; HIV antibody positive Z21 ; 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 ; Tobacco abuse Z72.0 ; Tobacco abuse counseling Z71.6 ; Restless legs syndrome G25.81 ; Generalized headaches R51 ; History of gastric bypass Z98.890 ; History of [place] (myocardial infarction) I25.2 ; Pacemaker Z95.0 and Left hip pain M25.552 [facility] [address] [place] [address] [id number] Jan, Encounter for dental examination and cleaning without abnormal findings Z01.20 IMMUNIZATIONS No Known Immunizations SOCIAL HISTORY Never Assessed REASON FOR VISIT Lab orders PLAN OF CARE VITAL SIGNS MEDICATIONS Unknown [...] EGD 03/02 Medical History restless leg syndrome Medical History HIV+ Surgical History PACE MAKER Surgical History GASTRIC BY PASS Surgical History cholecystectomy Surgical History tonsillectomy Surgical History hernia repair Hospitalization History in [place] Dec 2015 Hospitalization History inpatient [facility]unsure date Hospitalization History [facility] ED visit, [facility] 08/28/2017
--- OUTSIDE RECORDS SUMMARY | 2017-10-06 17:14 | XMS REPORT ---
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 Role Phone MENJIVARNESHA RichardELE Unavailable PROBLEMS Type Condition ICD9-CM Code MGZ74-LP Code Onset Dates Condition Status SNOMED Code Problem Hypertriglyceridemia E78.1 Active 690987910 Problem Gastritis determined by endoscopy K29.70 Active 9466781 Problem Iron deficiency anemia secondary to inadequate dietary iron intake D50.8 Active 657698456 Problem Generalized headaches R51 Active 413828138 Problem HIV antibody positive Z21 Active 283563777 Problem Tobacco abuse counseling Z71.6 Active 012673311 Problem Recurrent major depressive disorder, in full remission F33.42 Active 232479407 Problem Tobacco abuse Z72.0 Active 279977313 Problem Presence of cardiac pacemaker Z95.0 Active 535331798 Problem ADHD, adult residual type F90.8 Active 982992269 Problem Other specified cardiac arrhythmias I49.8 Active 085301795 Problem Coronary artery disease involving [place] coronary artery of [place] heart without angina pectoris I25.10 Active 2360658525493 Problem Low libido R68.82 Active 0014129 Problem Lumbago with sciatica, left side M54.42 Active 801187983 Problem Other chronic pain G89.29 Active 94280365 Problem Cannabis use disorder, severe, in sustained remission F12.21 Active 29356835 Problem Methamphetamine use disorder, severe, 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 Active 28955053 Problem Bipolar 1 disorder with moderate marii F31.12 Active 89510782 Problem Irritant dermatitis L24.9 Active 694560616 Problem Irregular periods N92.6 Active 68402800 Problem Lumbago with sciatica, right side M54.41 Active 827549278 Problem Irritable bowel syndrome with both constipation and diarrhea K58.2 Active 34598417 Problem Mood disorder F39 Active 41123263 Problem PTSD (post-traumatic stress disorder) F43.10 Active 29868556 Problem Cocaine use disorder, severe, in sustained remission F14.21 Active 33120449 Problem Alcohol use disorder, severe, in sustained remission F10.21 Active 32192047 Problem Obesity (BMI 30.0-34.9) E66.9 Active 106237870916301 Problem Chronic migraine without aura without status migrainosus, not intractable G43.709 Active 752176240 Problem Anxiety F41.9 Active 07385066 Problem Primary insomnia F51.01 Active 9483470 ALLERGIES No Information ENCOUNTERS Encounter Location Date Diagnosis [facility] [id number] [place] [address] 03756- 4051 09 Oct, 2017 [facility] [id number] [place] [address] 80926- 2207 Sep, [facility] [id number] [place] [address] 52498- 4433 Sep, Other specified bacterial agents as the cause of diseases classified elsewhere B96.89 and Acute vaginitis N76.0 [facility] [id number] [place] [address] 22804- 4389 13 Sep, 2017 Lower abdominal pain R10.30 ; Vaginal candidiasis B37.3 ; Lumbago with sciatica, left side M54.42 ; Lumbago with sciatica, right side M54.41 ; Rash R21 ; Obesity (BMI 30.0-34.9) E66.9 ; Other specified bacterial agents as the cause of diseases classified elsewhere B96.89 and Acute vaginitis N76.0 [facility] [address] [place] [address] 03699- 6231 Sep, [facility] [address] [place] [address] 96151- 5111 Sep, [facility] [id number] [place] [address] 01189- 8279 Sep, HIV antibody positive Z21 ; Obesity (BMI 30.0-34.9) E66.9 ; Chronic migraine without aura without status migrainosus, not intractable G43.709 ; Lumbago with sciatica, right side M54.41 and Other chronic pain G89.29 [facility] [address] [address] 05 Aug, 2017 Abdominal pain R10.9 and Acute cystitis without hematuria N30.00 [facility] [address] [address] July, [facility] [id number] [place] [address] 46069- 9931 Jun, [facility] [id number] [place] [address] 20450- 6149 Jun, [facility] [id number] [place] [address] 52302- 7602 May, [facility] [id number] [place] [address] 52809- 0794 May, Irritable bowel syndrome with both constipation and diarrhea K58.2 ; Tobacco abuse Z72.0 ; Tobacco abuse counseling Z71.6 ; Low libido R68.82 and Alcohol use disorder, severe, in sustained remission F10.21 [facility] [id number] [place] [address] 44496- 2299 23 May, 2017 Tobacco abuse Z72.0 [facility] [id number] [place] [address] 18422- 9333 May, HIV antibody positive Z21 ; Irregular periods N92.6 and Low libido R68.82 [facility] [id number] [place] [address] 89271- 2622 May, Primary insomnia F51.01 and Folliculitis L73.9 [facility] [id number] [place] [address] 26995- 2848 16 May, 2017 HIV antibody positive Z21 ; Irregular periods N92.6 and Low libido R68.82 [facility] [address] [place] [address] 15845- 6173 15 May, 2017 [facility] [id number] [place] [address] 43512- 8886 15 May, 2017 [facility] [address] 0[address]26- 0365 May, [facility] [address] 79772- 9806 May, Anxiety F41.9 [facility] [address] 40666- 5090 May, Anxiety F41.9 [facility] [address] 78559- 4638 May, [facility] [address] 71618- 6407 09 May, 2017 Acute cystitis with hematuria N30.01 ; HIV antibody positive Z21 ; Primary insomnia F51.01 ; Gastritis determined by endoscopy K29.70 ; Low libido R68.82 ; Tobacco abuse Z72.0 and Vaginal candidiasis B37.3 [facility] [address] 49788- 7429 Apr, [facility] [address] 00487- 7916 Apr, [facility] [address] 11523- 5031 Apr, Allergic contact dermatitis, unspecified trigger L23.9 [facility] [address] 98376- 9154 Apr, [facility] [address] 14937- 2663 Apr, Irregular periods N92.6 ; Irritant dermatitis L24.9 and Anxiety F41.9 [facility] [address] 81672 [address] 16 Apr, 2017 Vaginal discharge N89.8 and Folliculitis L73.9 [facility] [address] 99683- 2486 Apr, [facility] [address] [place] [address] 68028- 6005 Apr, [facility] [id number] [place] [address] 08322- 3398 Apr, [facility] [id number] [place] [address] 02102- 8016 Mar, HIV antibody positive Z21 ; Anxiety [...] R30.0 and Gastritis determined by endoscopy K29.70 [facility] [id number] [place] [address] 99037- 1638 Mar, [facility] [id number] [place] [address] 18078- 8288 Mar, [facility] [id number] [place] [address] 33279- 7574 Mar, [facility] [id number] [place] [address] 86967- 2750 Mar, [facility] [id number] [place] [address] 95107- 0527 Mar, [facility] [address] [place] [address] 46297 -3212 Mar, Vaginal horacio B37.3 [facility] [address] 12698- 9924 Feb, Dysuria R30.0 ; Acute cystitis with hematuria N30.01 ; HIV antibody positive Z21 ; Eczema, unspecified type L30.9 and Wound of left lower extremity, initial encounter S81.802A [facility] [address], [place] [address] Feb, [facility] [id number] [place] [address] 37712- 4858 Feb, [facility] [id number] [place] [address] 74976- 6300 Feb, [facility] [id number] [place] [address] 20539- 3290 Feb, [facility] [id number] [place] [address] 18811- 0966 08 Feb, 2017 Dermatitis L30.9 ; HIV antibody positive Z21 ; Bipolar 1 disorder with moderate marii F31.12 ; History of gastric bypass Z98.890 ; Primary insomnia F51.01 ; Tobacco abuse Z72.0 ; Anxiety F41.9 and Obesity (BMI 30.0-34.9) E66.9 [facility] [id number] [place] [address] 68870- 4490 Jan, [facility] [id number] [place] [address] 61644- 7850 Jan, Mood disorder F39 ; PTSD (post-traumatic stress disorder) F43.10 ; Methamphetamine use disorder, severe, 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 ; Alcohol use disorder, severe, in sustained remission F10.21 ; Cannabis use disorder, severe, in sustained remission F12.21 and Cocaine use disorder, severe , in sustained remission F14.21 [facility] [address], [place] [address]- [address] Jan, [facility] [id number] [place] [address] 50891- 2133 Jan, [facility] [address] [place] [address] 47910- 4872 Jan, [facility] [address] [place] [address] 73997- 2901 Jan, [facility] [id number] [place] [address] 85951- 2690 Jan, Mood disorder F39 ; PTSD (post-traumatic stress disorder) F43.10 ; Methamphetamine use disorder, severe, 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 ; Alcohol use disorder, severe, in sustained remission F10.21 ; Cannabis use disorder, severe, in sustained remission F12.21 and Cocaine use disorder, severe , in sustained remission F14.[address] 07694- 5490 Dec, [address] 95128- 5650 Dec, [address] 89513- 3622 Dec, ADHD, adult residual type F90.8 ; Post traumatic stress disorder (PTSD) F43.10 and Bipolar 1 disorder with moderate marii F31.[address] 51899- 7473 Dec, Dysuria R30.0 ; Routine screening for STI (sexually transmitted infection) Z11.3 and Routine gynecological examination Z01.419 [place] [place] [id number] [place] [address] 60773- 4019 10 Dec, 2016 Eczema, unspecified type L30.9 ; History of UTI Z87.440 and Hospital discharge follow-up Z09 [place] [id number] [place] [address] 59767- 9524 Dec, [place] [place] [id number] [place] [address] 49453- 2815 Dec, Visit for suture removal Z48.02 [facility] [address] 0[address]65 -1469 Nov, [facility] [address] 62566- 8839 Nov, [address] 48418- 6256 Nov, [facility] [id number] [place] [address] 00508- 2492 Nov, [facility] [id number] [place] [address] 63148- 2312 Nov, [facility] [id number] [place] [address] 79898- 9761 Nov, [facility] [id number] [place] [address] 20908- 5019 19 Nov, 2016 Rash R21 [facility] [address] 85869 -3895 18 Nov, 2016 Abnormal stools R19.5 [facility] [id number] [place] [address] 08762 -2698 13 Nov, 2016 Rash R21 [facility] [address] [id number] Sep, Dental examination Z01.20 [facility] [id number] [place] [address] 73463 -0867 Sep, Acute back pain M54.9 [facility] [id number] [place] [address] 90073- 7659 Aug, [facility] [id number] [place] [address] 98317- 2290 Aug, [facility] [id number] [place] [address] 22947 -1825 Aug, Cough R05 and Community acquired pneumonia J18.9 [facility] [id number] [place] [address] [id number] Jun, Dental examination Z01.20 [facility] [id number] [place] [address] 28663 -0813 16 May, 2016 Allergic contact dermatitis, unspecified trigger L23.9 [facility] [id number] [place] [address] 28173- 7871 Apr, [facility] [id number] [address]- 6560 Mar, Skin sore L98.9 [facility] [address] [address]113 Mar, Constipation, unspecified constipation type K59.00 [facility] [address] [place] [address] 67020- 0276 Feb, Skin sore L98.9 ; Excoriation (skin-picking) disorder F42.4 and HIV antibody positive Z21 [facility] [address] [place] [address] 218669- 3292 Feb, Routine health maintenance Z00.00 ; Family history of diabetes mellitus Z83.3 ; HIV antibody positive Z21 ; 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 ; Tobacco abuse Z72.0 ; Tobacco abuse counseling Z71.6 ; Restless legs syndrome G25.81 ; Generalized headaches R51 ; History of gastric bypass Z98.890 ; History of NM (myocardial infarction) I25.2 ; Pacemaker Z95.0 and Left hip pain M25.552 [facility] [id number] [id number] Jan, Encounter for dental examination and cleaning without abnormal findings Z01.20 IMMUNIZATIONS No Known Immunizations SOCIAL HISTORY Never Assessed REASON FOR VISIT Medication question PLAN OF CARE VITAL SIGNS MEDICATIONS Medication Instructions Dosage Frequency Start Date End Date Duration Status Temazepam 15 mg Orally Once a day 1 capsule at bedtime as needed 24h May 28 days Active Mupirocin 2 % Externally Three times a day 1 application to affected area 8h Apr, 5 day(s) Active RESULTS No Results PROCEDURES No [...] Surgical History hernia repair Hospitalization History in [place] Dec 2015 Hospitalization History inpatient [place]-unsure date Hospitalization History [facility] ED visit, [facility] 08/28/2017
--- OUTSIDE RECORDS SUMMARY | 2017-10-06 17:15 | XMS REPORT ---
Author Author ALEKSANDRA HAYES [facility] Address [address] [place] [address] Care Team Providers Care Home Economist Consumer Service Name Role Phone ALEKSANDRA HAYES Unavailable PROBLEMS Type Condition ICD9-CM Code [id number] Code Onset Dates Condition Status SNOMED Code Problem Hypertriglyceridemia E78.1 Active 559625668 Problem Gastritis determined by endoscopy K29.70 Active 1856825 Problem Iron deficiency anemia secondary to inadequate dietary iron intake D50.8 Active 288031902 Problem Generalized headaches R51 Active 762124583 Problem HIV antibody positive Z21 Active 095649759 Problem Tobacco abuse counseling Z71.6 Active 275646817 Problem Recurrent major depressive disorder, in full remission F33.42 Active 089478642 Problem Tobacco abuse Z72.0 Active 088142125 Problem Presence of cardiac pacemaker Z95.0 Active 152277420 Problem ADHD, adult residual type F90.8 Active 820442699 Problem Other specified cardiac arrhythmias I49.8 Active 279920734 Problem Coronary artery disease involving [place] coronary artery of [place] heart without angina pectoris I25.10 Active 1610792716125 Problem Low libido R68.82 Active 1951330 Problem Lumbago with sciatica, left side M54.42 Active 136697721 Problem Other chronic pain G89.29 Active 23776898 Problem Cannabis use disorder, severe, in sustained remission F12.21 Active 90762208 Problem Methamphetamine use disorder, severe, 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 Active 95723313 Problem Bipolar 1 disorder with moderate marii F31.12 Active 41330230 Problem Irritant dermatitis L24.9 Active 720118578 Problem Irregular periods N92.6 Active 27356207 Problem Lumbago with sciatica, right side M54.41 Active 610177645 Problem Irritable bowel syndrome with both constipation and diarrhea K58.2 Active 36188699 Problem Mood disorder F39 Active 43584430 Problem PTSD (post-traumatic stress disorder) F43.10 Active 00166329 Problem Cocaine use disorder, severe, in sustained remission F14.21 Active 32791057 Problem Alcohol use disorder, severe, in sustained remission F10.21 Active 17221622 Problem Obesity (BMI 30.0-34.9) E66.9 Active 649626428721000 Problem Chronic migraine without aura without status migrainosus, not intractable G43.709 Active 748504246 Problem Anxiety F41.9 Active 81564640 Problem Primary insomnia F51.01 Active 5149958 ALLERGIES No Information ENCOUNTERS Encounter Location Date Diagnosis [place] [id number] [place] [address] 24493- 4377 09 Oct, 2017 [place] [facility] [id number] [place] [address] 73763- 0402 Sep, [place] [id number] [place] [address] 02539- 9806 Sep, Other specified bacterial agents as the cause of diseases classified elsewhere B96.89 and Acute vaginitis N76.0 [place] [id number] [place] [address] 64645- 8212 13 Sep, 2017 Lower abdominal pain R10.30 ; Vaginal candidiasis B37.3 ; Lumbago with sciatica, left side M54.42 ; Lumbago with sciatica, right side M54.41 ; Rash R21 ; Obesity (BMI 30.0-34.9) E66.9 ; Other specified bacterial agents as the cause of diseases classified elsewhere B96.89 and Acute vaginitis N76.0 [place] [address] [place] [address] 70400- 0982 Sep, [place] [address] [place] [address] 16319- 7840 Sep, [place] [id number] [place] [address] 39668- 4983 Sep, HIV antibody positive Z21 ; Obesity (BMI 30.0-34.9) E66.9 ; Chronic migraine without aura without status migrainosus, not intractable G43.709 ; Lumbago with sciatica, right side M54.41 and Other chronic pain G89.29 [facility] [address] [address] 05 Aug, 2017 Abdominal pain R10.9 and Acute cystitis without hematuria N30.00 [facility] [address] [address] July, [facility] [id number] [place] [address] 53241- 6600 Jun, [facility] [id number] [place] [address] 62074- 8736 Jun, [place] [id number] [place] [address] 29805- 3244 May, [facility] [id number] [place] [address] 90812- 4920 May, Irritable bowel syndrome with both constipation and diarrhea K58.2 ; Tobacco abuse Z72.0 ; Tobacco abuse counseling Z71.6 ; Low libido R68.82 and Alcohol use disorder, severe, in sustained remission F10.21 [place] [id number] [place] [address] 29774- 0336 23 May, 2017 Tobacco abuse Z72.0 [place] [id number] [place] [address] 83814- 0306 May, HIV antibody positive Z21 ; Irregular periods N92.6 and Low libido R68.82 [place] [id number] [place] [address] 16952- 1157 May, Primary insomnia F51.01 and Folliculitis L73.9 [place] [id number] [place] [address] 87252- 9928 16 May, 2017 HIV antibody positive Z21 ; Irregular periods N92.6 and Low libido R68.82 [place] [address] [place] [address] 26213- 7979 15 May, 2017 [place] [id number] [place] [address] 37554- 7583 15 May, 2017 [facility] [address] 26589- 2734 May, [place] [address] 55146- 3463 May, Anxiety F41.9 [place] [address] 68859- 3475 May, Anxiety F41.9 [place] [address] 48621- 4982 May, [place] [address] 61621- 2878 09 May, 2017 Acute cystitis with hematuria N30.01 ; HIV antibody positive Z21 ; Primary insomnia F51.01 ; Gastritis determined by endoscopy K29.70 ; Low libido R68.82 ; Tobacco abuse Z72.0 and Vaginal candidiasis B37.3 [place] [address] 43879- 3804 Apr, [place] [address] 92257- 1230 Apr, [place] [address] 09780- 1394 Apr, Allergic contact dermatitis, unspecified trigger L23.9 [place] [address] 47074- 9708 Apr, [place] [address] 32042- 8161 Apr, Irregular periods N92.6 ; Irritant dermatitis L24.9 and Anxiety F41.9 [facility] [address] 15468 -5511 16 Apr, 2017 Vaginal discharge N89.8 and Folliculitis L73.9 [place] [address] 47811- 3288 Apr, [place] [address] [place] [address] 74396- 6377 Apr, [place] [id number] [place] [address] 74640- 8211 Apr, [place] [id number] [place] [address] 85617- 7354 Mar, HIV antibody positive Z21 ; Anxiety [...] R30.0 and Gastritis determined by endoscopy K29.70 [place] [id number] [place] [address] 58248- 4624 Mar, [place] [id number] [place] [address] 53135- 2060 Mar, [place] [id number] [place] [address] 77207- 3486 Mar, [place] [id number] [place] [address] 45349- 6023 Mar, [place] [id number] [place] [address] 13613- 4983 Mar, [facility] [address] [place] [address] 62050 -6091 Mar, Vaginal horacio B37.3 [place] [address] 68807- 0051 Feb, Dysuria R30.0 ; Acute cystitis with hematuria N30.01 ; HIV antibody positive Z21 ; Eczema, unspecified type L30.9 and Wound of left lower extremity, initial encounter S81.802A [facility] [address] [address] Feb, [facility] [id number] [place] [address] 10294- 2276 Feb, [facility] [id number] [place] [address] 80381- 1247 Feb, [facility] [id number] [place] [address] 33516- 4590 Feb, [facility] [id number] [place] [address] 73925- 1312 08 Feb, 2017 Dermatitis L30.9 ; HIV antibody positive Z21 ; Bipolar 1 disorder with moderate marii F31.12 ; History of gastric bypass Z98.890 ; Primary insomnia F51.01 ; Tobacco abuse Z72.0 ; Anxiety F41.9 and Obesity (BMI 30.0-34.9) E66.9 [place] [id number] [place] [address] 17398- 0413 Jan, [place] [id number] [place] [address] 68848- 0187 Jan, Mood disorder F39 ; PTSD (post-traumatic stress disorder) F43.10 ; Methamphetamine use disorder, severe, 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 ; Alcohol use disorder, severe, in sustained remission F10.21 ; Cannabis use disorder, severe, in sustained remission F12.21 and Cocaine use disorder, severe , in sustained remission F14.21 [facility] [address] [address] Jan, [place] [id number] [place] [address] 84390- 0689 Jan, [facility] [address] [place] [address] 00789- 1695 Jan, [facility] [address] [place] [address] 24176- 3118 Jan, [facility] [id number] [place] [address] 12583- 5921 Jan, Mood disorder F39 ; PTSD (post-traumatic stress disorder) F43.10 ; Methamphetamine use disorder, severe, 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 ; Alcohol use disorder, severe, in sustained remission F10.21 ; Cannabis use disorder, severe, in sustained remission F12.21 and Cocaine use disorder, severe , in sustained remission F14.[address] 89173- 9951 Dec, [address] 18799- 0406 Dec, [address] 11047- 8688 Dec, ADHD, adult residual type F90.8 ; Post traumatic stress disorder (PTSD) F43.10 and Bipolar 1 disorder with moderate marii F31.[address] 99046- 0753 Dec, Dysuria R30.0 ; Routine screening for STI (sexually transmitted infection) Z11.3 and Routine gynecological examination Z01.419 [place] [id number] [place] [address] 04581- 9089 10 Dec, 2016 Eczema, unspecified type L30.9 ; History of UTI Z87.440 and Hospital discharge follow-up Z09 [place] [id number] [place] [address] 63118- 9473 Dec, [place] [id number] [place] [address] 01608- 9634 Dec, Visit for suture removal Z48.02 [facility] [address] 86915 -6737 Nov, [place] [address] 12413- 0222 Nov, [address] 47324- 2431 Nov, [facility] [id number] [place] [address] 12471- 0346 Nov, [facility] [id number] [place] [address] 30940- 3356 Nov, [facility] [id number] [place] [address] 23597- 4312 Nov, [facility] [id number] [place] [address] 43931- 0790 19 Nov, 2016 Rash R21 [facility] [address] 02580 -4687 18 Nov, 2016 Abnormal stools R19.5 [facility] [id number] [place] [address] 84209 -3229 13 Nov, 2016 Rash R21 [facility] [address] [id number] Sep, Dental examination Z01.20 [facility] [id number] [place] [address] 50386 -4027 Sep, Acute back pain M54.9 [facility] [id number] [place] [address] 17196- 3421 Aug, [facility] [id number] [place] [address] 39211- 2648 Aug, [facility] [id number] [place] [address] 91444 -1575 Aug, Cough R05 and Community acquired pneumonia J18.9 [facility] [id number] [place] [address] [id number] Jun, Dental examination Z01.20 [facility] [id number] [place] [address] 10393 -1291 16 May, 2016 Allergic contact dermatitis, unspecified trigger L23.9 [facility] [id number] [place] [address] 58384- 5668 Apr, [facility] [id number] [address]- 5568 Mar, Skin sore L98.9 [facility] [address] [place] [address] [phone] -2105 Mar, Constipation, unspecified constipation type K59.00 [facility] [address] [place] [address] 74530- 2248 Feb, Skin sore L98.9 ; Excoriation (skin-picking) disorder F42.4 and HIV antibody positive Z21 [facility] [address] [place] [address] 14250419- 7485 Feb, Routine health maintenance Z00.00 ; Family history of diabetes mellitus Z83.3 ; HIV antibody positive Z21 ; 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 ; Tobacco abuse Z72.0 ; Tobacco abuse counseling Z71.6 ; Restless legs syndrome G25.81 ; Generalized headaches R51 ; History of gastric bypass Z98.890 ; History of VA (myocardial infarction) I25.2 ; Pacemaker Z95.0 and Left hip pain M25.552 [facility] [id number] [id number] Jan, Encounter for dental examination and cleaning without abnormal findings Z01.20 IMMUNIZATIONS No Known Immunizations SOCIAL HISTORY Never Assessed REASON FOR VISIT Controlled Med Refill PLAN OF CARE VITAL SIGNS MEDICATIONS Medication [...] Surgical History hernia repair Hospitalization History in [place] Dec 2015 Hospitalization History inpatient [facility]-unsure date Hospitalization History [facility] visit, uti 08/28/2017
--- OUTSIDE RECORDS SUMMARY | 2017-10-06 17:15 | XMS REPORT ---
Author Author MICHAEL MENJIVAR Organization [facility] Address [address] [place] [address] Care Team Providers Care Sanitarian Name Role Phone MENJIVARNESHA RichardELE Unavailable PROBLEMS Type Condition ICD9-CM Code WEY16-VW Code Onset Dates Condition Status SNOMED Code Problem Hypertriglyceridemia E78.1 Active 311056034 Problem Gastritis determined by endoscopy K29.70 Active 2081038 Problem Iron deficiency anemia secondary to inadequate dietary iron intake D50.8 Active 276284246 Problem Generalized headaches R51 Active 032599205 Problem HIV antibody positive Z21 Active 390741234 Problem Tobacco abuse counseling Z71.6 Active 225906658 Problem Recurrent major depressive disorder, in full remission F33.42 Active 426514773 Problem Tobacco abuse Z72.0 Active 529527942 Problem Presence of cardiac pacemaker Z95.0 Active 461009268 Problem ADHD, adult residual type F90.8 Active 177103984 Problem Other specified cardiac arrhythmias I49.8 Active 114511843 Problem Coronary artery disease involving ak chin coronary artery of ak chin heart without angina pectoris I25.10 Active 4107055302306 Problem Low libido R68.82 Active 1948857 Problem Lumbago with sciatica, left side M54.42 Active 507513211 Problem Other chronic pain G89.29 Active 79852949 Problem Cannabis use disorder, severe, in sustained remission F12.21 Active 86118407 Problem Methamphetamine use disorder, severe, 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 Active 92098784 Problem Bipolar 1 disorder with moderate marii F31.12 Active 21056778 Problem Irritant dermatitis L24.9 Active 198052721 Problem Irregular periods N92.6 Active 91451517 Problem Lumbago with sciatica, right side M54.41 Active 026331437 Problem Irritable bowel syndrome with both constipation and diarrhea K58.2 Active 86653817 Problem Mood disorder F39 Active 07746223 Problem PTSD (post-traumatic stress disorder) F43.10 Active 39873179 Problem Cocaine use disorder, severe, in sustained remission F14.21 Active 75537126 Problem Alcohol use disorder, severe, in sustained remission F10.21 Active 02812248 Problem Obesity (BMI 30.0-34.9) E66.9 Active 733293188212228 Problem Chronic migraine without aura without status migrainosus, not intractable G43.709 Active 968418735 Problem Anxiety F41.9 Active 73746536 Problem Primary insomnia F51.01 Active 8142412 ALLERGIES No Information ENCOUNTERS Encounter Location Date Diagnosis [facility] [id number] [place] [address] 00107- 3593 09 Oct, 2017 [facility] [id number] [place] [address] 36886- 2220 Sep, [facility] [id number] [place] [address] 38594- 5034 Sep, Other specified bacterial agents as the cause of diseases classified elsewhere B96.89 and Acute vaginitis N76.0 [facility] [id number] [place] [address] 20615- 4680 13 Sep, 2017 Lower abdominal pain R10.30 ; Vaginal candidiasis B37.3 ; Lumbago with sciatica, left side M54.42 ; Lumbago with sciatica, right side M54.41 ; Rash R21 ; Obesity (BMI 30.0-34.9) E66.9 ; Other specified bacterial agents as the cause of diseases classified elsewhere B96.89 and Acute vaginitis N76.0 [facility] [address] [place] [address] 54507- 6193 Sep, [facility] [address] [place] [address] 63006- 0045 Sep, [facility] [id number] [place] [address] 27579- 3045 Sep, HIV antibody positive Z21 ; Obesity (BMI 30.0-34.9) E66.9 ; Chronic migraine without aura without status migrainosus, not intractable G43.709 ; Lumbago with sciatica, right side M54.41 and Other chronic pain G89.29 [facility] [address] [address] 05 Aug, 2017 Abdominal pain R10.9 and Acute cystitis without hematuria N30.00 [facility] [address] [address] July, [facility] [id number] [place] [address] 01624- 9892 Jun, [facility] [id number] [place] [address] 56709- 5876 Jun, [facility] [id number] [place] [address] 31278- 5178 May, [facility] [id number] [place] [address] 22907- 1747 May, Irritable bowel syndrome with both constipation and diarrhea K58.2 ; Tobacco abuse Z72.0 ; Tobacco abuse counseling Z71.6 ; Low libido R68.82 and Alcohol use disorder, severe, in sustained remission F10.21 [facility] [id number] [place] [address] 95260- 3478 23 May, 2017 Tobacco abuse Z72.0 [facility] [id number] [place] [address] 32222- 7022 May, HIV antibody positive Z21 ; Irregular periods N92.6 and Low libido R68.82 [facility] [id number] [place] [address] 83245- 9948 May, Primary insomnia F51.01 and Folliculitis L73.9 [facility] [id number] [place] [address] 40461- 8799 16 May, 2017 HIV antibody positive Z21 ; Irregular periods N92.6 and Low libido R68.82 [facility] [id number] [place] [address] 93091- 9653 15 May, 2017 [facility] [id number] [place] [address] 69393- 6953 15 May, 2017 [facility] [address] 92124- 7754 May, [facility] [address] 74703- 8480 May, Anxiety F41.9 [facility] [address] 70877- 7448 May, Anxiety F41.9 [facility] [address] 30540- 9209 May, [facility] [address] 71825- 5650 09 May, 2017 Acute cystitis with hematuria N30.01 ; HIV antibody positive Z21 ; Primary insomnia F51.01 ; Gastritis determined by endoscopy K29.70 ; Low libido R68.82 ; Tobacco abuse Z72.0 and Vaginal candidiasis B37.3 [facility] [address] 59667- 6971 Apr, [facility] [address] 33711- 6913 Apr, [facility] [address] 15030- 8651 Apr, Allergic contact dermatitis, unspecified trigger L23.9 [facility] [address] 49357- 5592 Apr, [facility] [address] 48424- 2128 Apr, Irregular periods N92.6 ; Irritant dermatitis L24.9 and Anxiety F41.9 [facility] [address] [address] 16 Apr, 2017 Vaginal discharge N89.8 and Folliculitis L73.9 [facility] [address] 50309- 2063 Apr, [facility] [address] [place] [address] 88637- 3650 Apr, [facility] [id number] [place] [address] 97126- 8324 Apr, [facility] [id number] [place] [address] 53062- 7555 Mar, HIV antibody positive Z21 ; Anxiety [...] R30.0 and Gastritis determined by endoscopy K29.70 [facility] [id number] [place] [address] 51956- 8105 Mar, [facility] [id number] [place] [address] 72148- 5544 Mar, [facility] [id number] [place] [address] 58246- 3226 Mar, [facility] [id number] [place] [address] 64607- 7334 Mar, [facility] [id number] [place] [address] 86851- 1971 Mar, [facility] [address] [place] [address] 16757 -0441 Mar, Vaginal horacio B37.3 [facility] [address] 37168- 3867 Feb, Dysuria R30.0 ; Acute cystitis with hematuria N30.01 ; HIV antibody positive Z21 ; Eczema, unspecified type L30.9 and Wound of left lower extremity, initial encounter S81.802A [facility] [address] [address] 7048 Feb, [facility] [id number] [place] [address] 89040- 5255 Feb, [facility] [id number] [place] [address] 62642- 9796 Feb, [facility] [id number] [place] [address] 03108- 0449 Feb, [facility] [id number] [place] [address] 41884- 1539 08 Feb, 2017 Dermatitis L30.9 ; HIV antibody positive Z21 ; Bipolar 1 disorder with moderate marii F31.12 ; History of gastric bypass Z98.890 ; Primary insomnia F51.01 ; Tobacco abuse Z72.0 ; Anxiety F41.9 and Obesity (BMI 30.0-34.9) E66.9 [facility] [id number] [place] [address] 41476- 1554 Jan, [facility] [id number] [place] [address] 26670- 3576 Jan, Mood disorder F39 ; PTSD (post-traumatic stress disorder) F43.10 ; Methamphetamine use disorder, severe, 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 ; Alcohol use disorder, severe, in sustained remission F10.21 ; Cannabis use disorder, severe, in sustained remission F12.21 and Cocaine use disorder, severe , in sustained remission F14.21 [facility] [address] [address] 1138 Jan, [facility] [id number] [place] [address] 00545- 3261 Jan, [facility] [address] [place] [address] 99853- 2631 Jan, [facility] [address] [place] [address] 53529- 9656 Jan, [facility] [id number] [place] [address] 81395- 9605 Jan, Mood disorder F39 ; PTSD (post-traumatic stress disorder) F43.10 ; Methamphetamine use disorder, severe, 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 ; Alcohol use disorder, severe, in sustained remission F10.21 ; Cannabis use disorder, severe, in sustained remission F12.21 and Cocaine use disorder, severe , in sustained remission F14.[address] 21686- 4185 Dec, [address] 46608- 4293 Dec, [address] 85646- 4121 Dec, ADHD, adult residual type F90.8 ; Post traumatic stress disorder (PTSD) F43.10 and Bipolar 1 disorder with moderate marii F31.[address] 68901- 4550 Dec, Dysuria R30.0 ; Routine screening for STI (sexually transmitted infection) Z11.3 and Routine gynecological examination Z01.419 [facility] [id number] [place] [address] 44616- 9274 10 Dec, 2016 Eczema, unspecified type L30.9 ; History of UTI Z87.440 and Hospital discharge follow-up Z09 [facility] [id number] [place] [address] 63104- 0661 Dec, [facility] [id number] [place] [address] 21652- 8701 Dec, Visit for suture removal Z48.[address] [facility] [address] 84768 -7896 Nov, [facility] [address] 43974- 6358 Nov, [address] 65382- 0188 Nov, [facility] [id number] [place] [address] 55335- 7675 Nov, [facility] [id number] [place] [address] 43440- 9877 Nov, [facility] [id number] [place] [address] 45730- 5949 Nov, [facility] [id number] [place] [address] 06339- 8369 19 Nov, 2016 Rash R21 [facility] [address] 13252 -5813 18 Nov, 2016 Abnormal stools R19.5 [facility] [id number] [place] [address] 57063 -4731 13 Nov, 2016 Rash R21 [facility] [address] [id number] Sep, Dental examination Z01.20 [facility] [id number] [place] [address] 92673 -4163 Sep, Acute back pain M54.9 [facility] [id number] [place] [address] 64604- 8161 Aug, [facility] [id number] [place] [address] 16910- 8165 Aug, [facility] [id number] [place] [address] 42098 -6588 Aug, Cough R05 and Community acquired pneumonia J18.9 [facility] [id number] [place] [address] [id number] Jun, Dental examination Z01.20 [facility] [id number] [place] [address] 93143 -4064 16 May, 2016 Allergic contact dermatitis, unspecified trigger L23.9 [facility] [id number] [place] [address] [id number]- 5298 Apr, [facility] [id number] [address]- 4745 Mar, Skin sore L98.9 [facility] [address] [place] [address] 01215 -4429 Mar, Constipation, unspecified constipation type K59.00 [facility] [address] [place] [address] 19631- 2908 Feb, Skin sore L98.9 ; Excoriation (skin-picking) disorder F42.4 and HIV antibody positive Z21 [facility] [address] [place] [address] 77966- 0763 Feb, Routine health maintenance Z00.00 ; Family history of diabetes mellitus Z83.3 ; HIV antibody positive Z21 ; 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 ; Tobacco abuse Z72.0 ; Tobacco abuse counseling Z71.6 ; Restless legs syndrome G25.81 ; Generalized headaches R51 ; History of gastric bypass Z98.890 ; History of VT (myocardial infarction) I25.2 ; Pacemaker Z95.0 and Left hip pain M25.552 [facility] [id number] [place] [address] [id number] Jan, Encounter for dental examination and cleaning without abnormal findings Z01.20 IMMUNIZATIONS No Known Immunizations SOCIAL HISTORY Never Assessed REASON FOR VISIT Medication refill request PLAN OF CARE VITAL SIGNS MEDICATIONS Medication Instructions Dosage Frequency Start Date End Date Duration Status Eucrisa 2 % Externally Twice a day 1 application to affected area 12h 30 Active RESULTS No Results PROCEDURES No [...] Surgical History hernia repair Hospitalization History in [place] Dec 2015 Hospitalization History inpatient [facility]-unsure date Hospitalization History [facility] ED visit, uti 08/28/2017
--- OUTSIDE RECORDS SUMMARY | 2017-10-06 17:15 | XMS REPORT ---
Author Author MICHAEL MENJIVAR Organization [facility] Address [address] [place] [address] Care Team Providers Care Ball Points Inspector Name Role Phone MENJIVARNESHA RichardELE Unavailable PROBLEMS Type Condition ICD9-CM Code APS61-EN Code Onset Dates Condition Status SNOMED Code Problem Hypertriglyceridemia E78.1 Active 825564991 Problem Gastritis determined by endoscopy K29.70 Active 4275360 Problem Iron deficiency anemia secondary to inadequate dietary iron intake D50.8 Active 824314092 Problem Generalized headaches R51 Active 926559264 Problem HIV antibody positive Z21 Active 781554272 Problem Tobacco abuse counseling Z71.6 Active 235854320 Problem Recurrent major depressive disorder, in full remission F33.42 Active 705885059 Problem Tobacco abuse Z72.0 Active 323699444 Problem Presence of cardiac pacemaker Z95.0 Active 895476965 Problem ADHD, adult residual type F90.8 Active 250280547 Problem Other specified cardiac arrhythmias I49.8 Active 964235222 Problem Coronary artery disease involving beaver coronary artery of beaver heart without angina pectoris I25.10 Active 9626216704371 Problem Low libido R68.82 Active 6810238 Problem Lumbago with sciatica, left side M54.42 Active 146813661 Problem Other chronic pain G89.29 Active 33485900 Problem Cannabis use disorder, severe, in sustained remission F12.21 Active 10180313 Problem Methamphetamine use disorder, severe, 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 Active 86423117 Problem Bipolar 1 disorder with moderate marii F31.12 Active 37298220 Problem Irritant dermatitis L24.9 Active 308831922 Problem Irregular periods N92.6 Active 01679160 Problem Lumbago with sciatica, right side M54.41 Active 579829497 Problem Irritable bowel syndrome with both constipation and diarrhea K58.2 Active 06078293 Problem Mood disorder F39 Active 33395691 Problem PTSD (post-traumatic stress disorder) F43.10 Active 60810948 Problem Cocaine use disorder, severe, in sustained remission F14.21 Active 36946951 Problem Alcohol use disorder, severe, in sustained remission F10.21 Active 08254971 Problem Obesity (BMI 30.0-34.9) E66.9 Active 024117499577609 Problem Chronic migraine without aura without status migrainosus, not intractable G43.709 Active 950484047 Problem Anxiety F41.9 Active 38634030 Problem Primary insomnia F51.01 Active 2389239 ALLERGIES No Known Allergies ENCOUNTERS Encounter Location Date Diagnosis [facility] [id number] [place] [address] 07341- 9863 Oct, [facility] [id number] [place] [address] 68074- 7353 Sep, [facility] [id number] [place] [address] 15413- 8741 Sep, Other specified bacterial agents as the cause of diseases classified elsewhere B96.89 and Acute vaginitis N76.0 [facility] [id number] [place] [address] 62939- 9328 13 Sep, 2017 Lower abdominal pain R10.30 ; Vaginal candidiasis B37.3 ; Lumbago with sciatica, left side M54.42 ; Lumbago with sciatica, right side M54.41 ; Rash R21 ; Obesity (BMI 30.0-34.9) E66.9 ; Other specified bacterial agents as the cause of diseases classified elsewhere B96.89 and Acute vaginitis N76.0 [facility] [address] [address] Sep, [facility] [id number] [place] [address] 86867- 9668 Sep, [facility] [facility] [id number] [place] [address] 52842- 0442 Sep, HIV antibody positive Z21 ; Obesity (BMI 30.0-34.9) E66.9 ; Chronic migraine without aura without status migrainosus, not intractable G43.709 ; Lumbago with sciatica, right side M54.41 and Other chronic pain G89.29 [facility] [address] [address] 05 Aug, 2017 Abdominal pain R10.9 and Acute cystitis without hematuria N30.00 [facility] [id number] [place] [address] 18303- 7340 July, [facility] [id number] [place] [address] 13278- 4060 Jun, [facility] [id number] [place] [address] 63525- 3375 Jun, [facility] [facility] [id number] [place] [address] 89669- 2591 May, [facility] [id number] [place] [address] 03817- 2172 May, Irritable bowel syndrome with both constipation and diarrhea K58.2 ; Tobacco abuse Z72.0 ; Tobacco abuse counseling Z71.6 ; Low libido R68.82 and Alcohol use disorder, severe, in sustained remission F10.21 [facility] [id number] [place] [address] 52170- 3920 23 May, 2017 Tobacco abuse Z72.0 [facility] [id number] [place] [address] 48421- 7856 May, HIV antibody positive Z21 ; Irregular periods N92.6 and Low libido R68.82 [facility] [id number] [place] [address] 29675- 3675 May, Primary insomnia F51.01 and Folliculitis L73.9 [facility] [id number] [place] [address] 33236- 5100 16 May, 2017 HIV antibody positive Z21 ; Irregular periods N92.6 and Low libido R68.82 [facility] [id number] [place] [address] 66262- 7086 15 May, 2017 [facility] [facility] [id number] [place] [address] 56687- 3823 15 May, 2017 [facility] [address] 00492- 8851 May, [facility] [address] 92080- 8688 May, Anxiety F41.9 [facility] [address] 89890- 5729 May, Anxiety F41.9 [facility] [facility] [address] 00874- 8487 May, [facility] [address] 80496- 8142 09 May, 2017 Acute cystitis with hematuria N30.01 ; HIV antibody positive Z21 ; Primary insomnia F51.01 ; Gastritis determined by endoscopy K29.70 ; Low libido R68.82 ; Tobacco abuse Z72.0 and Vaginal candidiasis B37.3 [facility] [address] 40515- 5476 Apr, [facility] [address] 93266- 9522 Apr, [facility] [address] 94755- 8026 Apr, Allergic contact dermatitis, unspecified trigger L23.9 [facility] [address] 04427- 8157 Apr, [facility] [address] 22332- 3671 Apr, Irregular periods N92.6 ; Irritant dermatitis L24.9 and Anxiety F41.9 [facility] [id number] [place] [address] 99736 -3682 16 Apr, 2017 Vaginal discharge N89.8 and Folliculitis L73.9 [facility] [address] 95657- 4865 Apr, [facility] [id number] [place] [address] 83016- 9379 Apr, [facility] [id number] [place] [address] 82883- 9366 Apr, [facility] [id number] [place] [address] 74302- 9573 Mar, HIV antibody positive Z21 ; Anxiety [...] R30.0 and Gastritis determined by endoscopy K29.70 [facility] [id number] [place] [address] 26947- 5744 Mar, [facility] [id number] [place] [address] 13558- 0776 Mar, [facility] [id number] [place] [address] 92735- 8287 Mar, [facility] [id number] [place] [address] 62900- 9938 Mar, [facility] [id number] [place] [address] 82341- 5105 Mar, [facility] [id number] [place] [address] 26704 -8998 Mar, Vaginal horacio B37.3 [facility] [id number] [place] [address] 95618- 7127 Feb, Dysuria R30.0 ; Acute cystitis with hematuria N30.01 ; HIV antibody positive Z21 ; Eczema, unspecified type L30.9 and Wound of left lower extremity, initial encounter S81.802A [facility] [address] [address] 7[address] Feb, [facility] [id number] [place] [address] 31874- 3733 Feb, [facility] [id number] [place] [address] 22799- 9048 Feb, [facility] [id number] [place] [address] 65442- 0557 Feb, [facility] [id number] [place] [address] 18762- 9572 08 Feb, 2017 Dermatitis L30.9 ; HIV antibody positive Z21 ; Bipolar 1 disorder with moderate marii F31.12 ; History of gastric bypass Z98.890 ; Primary insomnia F51.01 ; Tobacco abuse Z72.0 ; Anxiety F41.9 and Obesity (BMI 30.0-34.9) E66.9 [facility] [id number] [place] [address] 80890- 4392 Jan, [facility] [id number] [place] [address] 48357- 2511 Jan, Mood disorder F39 ; PTSD (post-traumatic stress disorder) F43.10 ; Methamphetamine use disorder, severe, 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 ; Alcohol use disorder, severe, in sustained remission F10.21 ; Cannabis use disorder, severe, in sustained remission F12.21 and Cocaine use disorder, severe , in sustained remission F14.21 [facility] [address] [address]- 7853 Jan, [facility] [id number] [place] [address] 14788- 7812 Jan, [facility] [id number] [place] [address] 26459- 3093 Jan, [facility] [id number] [place] [address] 38518- 2137 Jan, [place] [id number] [place] [address] 23417- 4826 Jan, Mood disorder F39 ; PTSD (post-traumatic stress disorder) F43.10 ; Methamphetamine use disorder, severe, 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 ; Alcohol use disorder, severe, in sustained remission F10.21 ; Cannabis use disorder, severe, in sustained remission F12.21 and Cocaine use disorder, severe , in sustained remission F14.[address] 42466- 0931 Dec, [address] 12795- 8957 Dec, [address] 38405- 3547 Dec, ADHD, adult residual type F90.8 ; Post traumatic stress disorder (PTSD) F43.10 and Bipolar 1 disorder with moderate marii F31.[address] 73364- 7169 Dec, Dysuria R30.0 ; Routine screening for STI (sexually transmitted infection) Z11.3 and Routine gynecological examination Z01.419 [place] [id number] [place] [address] 58008- 5208 10 Dec, 2016 Eczema, unspecified type L30.9 ; History of UTI Z87.440 and Hospital discharge follow-up Z09 [place] [id number] [place] [address] 52076- 8509 Dec, [place] [id number] [place] [address] 34832- 4022 Dec, Visit for suture removal Z48.02 [facility] [address] 19547 -7348 Nov, [facility] [address] 39399- 4686 Nov, [address] 00420- 0073 Nov, [facility] [id number] [place] [address] 71762- 6256 Nov, [facility] [id number] [place] [address] 52686- 7279 Nov, [facility] [id number] [place] [address] 61700- 6587 Nov, [facility] [id number] [place] [address] 53484- 7633 19 Nov, 2016 Rash R21 [facility] [id number] [place] [address] 87995 -1114 18 Nov, 2016 Abnormal stools R19.5 [facility] [id number] [place] [address] 37225 -8169 13 Nov, 2016 Rash R21 [facility] [id number] [place] [address] [id number] Sep, Dental examination Z01.20 [facility] [id number] [place] [address] 66360 -1480 Sep, Acute back pain M54.9 [facility] [id number] [place] [address] 34518- 8774 Aug, [facility] [id number] [place] [address] 50176- 7603 Aug, [facility] [id number] [place] [address] 99075 -2951 Aug, Cough R05 and Community acquired pneumonia J18.9 [facility] [id number] [place] [address] [id number] Jun, Dental examination Z01.20 [facility] [id number] [place] [address] 07308 -6329 16 May, 2016 Allergic contact dermatitis, unspecified trigger L23.9 [facility] [id number] [place] [address] [id number]- 0987 Apr, [facility] [id number] [place] [address] 62528- 9452 Mar, Skin sore L98.9 [facility] [id number] [place] [address] 55384 -8613 Mar, Constipation, unspecified constipation type K59.00 [facility] [id number] [place] [address] 85316- 8994 Feb, Skin sore L98.9 ; Excoriation (skin-picking) disorder F42.4 and HIV antibody positive Z21 [facility] [id number] [place] [address] 205795- 7907 06 Feb, 2016 Routine health maintenance Z00.00 ; Family history of diabetes mellitus Z83.3 ; HIV antibody positive Z21 ; 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 ; Tobacco abuse Z72.0 ; Tobacco abuse counseling Z71.6 ; Restless legs syndrome G25.81 ; Generalized headaches R51 ; History of gastric bypass Z98.890 ; History of SD (myocardial infarction) I25.2 ; Pacemaker Z95.0 and Left hip pain M25.552 [facility] [id number] [place] [address] [id number] Jan, Encounter for dental examination and cleaning without abnormal findings Z01.20 IMMUNIZATIONS No Known Immunizations SOCIAL HISTORY Never Assessed REASON FOR VISIT Dysuria f/u--tjanssenMA, --c/o strong urine smell, --wants to discuss low sexual drive , --never started buspar and would like to get a new prescription PLAN OF CARE Activity Details Follow Up 3 Months, prn Reason:chm VITAL SIGNS Height 64 in 2017-05-23 Weight 175.6 lbs 2017-05-23 Temperature 97.1 degrees Fahrenheit 2017-05-23 Heart Rate 74 bpm 2017-05-23 Respiratory Rate 20 2017-05-23 BMI 30.14 kg/m2 2017-05-23 Blood pressure systolic 98 mmHg 2017-05-23 Blood pressure diastolic 66 mmHg 2017-05-23 MEDICATIONS Medication Instructions Dosage Frequency Start Date End Date Duration Status Ventolin HFA 108 (90 Base) MCG/ACT Inhalation every 6 hrs 2 puffs as needed 6h May, 12 months Active Diflucan 150 MG Orally Once a day 1 tablet today and repeat in 7 days 24h May, May, 2 days Active Ciprofloxacin HCl 500 mg Orally Once a day 1 tablet 24h May, May, 05 days Active BusPIRone HCl 10 mg Orally 3 times a day as needed 1 tablet Feb, Not-Taking Vitamin D 2000 UNIT Orally Once a day 1 tablet 24h Feb, 90 days Not-Taking Lunesta 2 MG Orally at bedtime as needed 1 tablet immediately before bedtime Feb, 30 days Active Omeprazole 40 MG Orally Once a day 1 capsule 24h Active Klonopin 0.5 MG 1 tab Apr, 28 days Active Polyethylene Glycol 17 by oral route Once a day as directed 24h 30 Active RESULTS Name Result Date Reference Range UA LONG DIP (IN HOUSE) 2017-05-23 Lot # [id number] Exp date 01/01 Clarity Cloudy Color Yellow Odor none GLU Negative FABRIZIO Negative KET Negative SG >=1.030 BLO 1+ pH 5.0 Protein Trace URO 1.0 NIT Positive XAVIER 1+ Lot # Exp date PROCEDURES Procedure Date Ordered Result Body Site URINALYSIS, AUTO, W/O SCOPE May 23, 2017 [facility] VISIT ESTABLISHED PATIENT May 23, 2017 INSTRUCTIONS MEDICATIONS ADMINISTERED No Known Medications [...] Surgical History hernia repair Hospitalization History in [place] Dec 2015 Hospitalization History inpatient [place]-unsure date [facility] 08/28/2017
--- OUTSIDE RECORDS SUMMARY | 2017-10-06 17:16 | XMS REPORT ---
Author Author Baldo Bethany [facility] Address [address] [place], [place] [id number] Care Team Providers Care Patent Lawyer Name Role Phone Bethany Bland Unavailable PROBLEMS Type Condition ICD9-CM Code VDH04-[id number] Code Onset Dates Condition Status SNOMED Code Problem Generalized anxiety disorder F41.1 Active 99558661 Problem GERD (gastroesophageal reflux disease) K21.9 Active 545302008 Problem intermediate card tender prescription opiate use Z79.899 Active 576187835 Problem Cervicalgia M54.2 Active 771228601 Problem Low back pain M54.5 Active 162578319 Problem Bilateral headaches R51 Active 651660394 Problem AIDS B20 Active 84889791 Problem Cigarette nicotine dependence, uncomplicated F17.210 Active 91456134 Problem Chronic depression F32.9 Active 013707735 Problem Anxiety F41.9 Active 84831696 Problem COPD bronchitis J44.9 Active 08805961 Problem Intertrigo L30.4 Active 29249203 Problem Irregular menses N92.6 Active 778265238 Problem Scalp psoriasis L40.9 Active 275936595 Problem Slow transit constipation K59.01 Active 49208785 Problem Seasonal allergic rhinitis due to pollen J30.1 Active 65033888 Problem Primary insomnia F51.01 Active 5343711 Problem Chronic pruritus L29.9 Active 052813399 Problem Other chronic pain G89.29 Active 04421791 Problem Dorsalgia M54.9 Active 753637882 Problem Body lice infestation B85.1 Active 85101555 Problem Constipation by delayed colonic transit K59.01 Active 18466433 Problem Migraine with aura and without status migrainosus, not intractable G43.109 Active 6762148 Problem Restless leg syndrome G25.81 Active 13849685 Problem Migraine, unspecified, not intractable, without status migrainosus G43.909 Active 14891526 Problem Insomnia G47.00 Active 327100539 Problem Ab[address] CT of the head R93.0 Active 778284028 Problem Dermatitis L30.9 Active 27346349 Problem Primary hypothyroidism E03.9 Active 50296069 ALLERGIES No Information ENCOUNTERS Encounter Location Date Diagnosis [facility] [address] [place] [address] [id number] Sep, [facility] [address] [place] [address] [id number] Sep, [facility] [address] [place] [address] [id number] Sep, [facility] [address] [place] [address] [id number] Jun, [address] [id number] Jun, AIDS B20 ; Irregular menses N92.6 ; Primary hypothyroidism E03.9 and Slow transit constipation K59.[address] [address] May, [facility] [address] [place] [address] [id number] May, [address] [address] May, AIDS B20 and Decreased libido R68.[address] [address] May, [address] [address] May, [address] [address] May, [address] [address] May, [address] [address] May, [address] [address] Apr, Body lice infestation B85.1 ; AIDS B20 and Acquired immune deficiency syndrome B20 [address] [address] Apr, GERD (gastroesophageal reflux disease) K21.[address] [address] Apr, [facility] [address] [place] [address] Apr, Acquired immune deficiency syndrome B20 and Migraine, unspecified, not intractable, without status migrainosus G43.909 [facility] [address] [place] [address] Apr, [facility] [address] [place] [address] Mar, [facility] [address] [place] [address] Mar, AIDS B20 [facility] [address] [place] [address] [id number] Mar, Scalp psoriasis L40.[address] [address] Mar, [address] [address] Mar, [facility] [address] [place] [address] Mar, Dermatitis L30.[address] [address] Feb, Body lice infestation B85.1 ; Dermatitis L30.9 and Seborrhea L21.[address] [address] Feb, AIDS B20 [address] [address] Feb, [address] [address] Jan, Restless leg syndrome G25.81 and Primary insomnia F51.[address] [address] Jan, Dermatitis L30.[address] [address] Jan, [address] [address] Jan, [address] [place] [address] Dec, [facility] [address] [facility] [place] [address] Dec, [facility] [address] [facility] [place] [address] Dec, [facility] [address] [facility] [place] [address] Dec, Low back pain M54.5 [facility] [address] [facility] [place] [address] Dec, [facility] [address] [facility] [place] [address] Dec, [facility] [address] [facility] [place] [address] Dec, [facility] [address] [facility] [place] [address] Dec, [facility] [address] [facility] [place] [address] Nov, Dermatitis L30.9 [facility] [address] [facility] [place] [address] Nov, Chronic depression F32.9 [facility] [address] [place] [address] [id number] Nov, [facility] [address] [place] [address] Nov, [facility] [address] [place] [address] Nov, [facility] [address] [place] [address] 18 Nov, 2016 [facility] [address] [facility] [place] [address] Nov, [facility] [address] [place] [address] Nov, [facility] [address] [place] [address] Nov, [facility] [address] [place] [address] 08 Nov, 2016 Chronic depression F32.9 [facility] [address] [place] [address] Nov, [facility] [address] [place] [address] [phone] Oct, Scabies B86 [facility] [address] [place] [address] Oct, Anxiety F41.9 and Dorsalgia M54.9 [facility] [address] [place] [address] Oct, [facility] [address] [place] [address] Oct, [facility] [address] [place] [address] Oct, [facility] [address] [place] [address] Oct, [facility] [address] [place] [address] Oct, Anemia D64.[address] [address] Oct, [facility] [address] [place] [address] Oct, [address] [address] Oct, Chronic pruritus L29.9 ; Body lice infestation B85.1 ; Flank pain R10.9 ; Diaphoresis R61 ; Tick bite, initial encounter W57.XXXA ; Anemia D64.9 ; Low back pain M54.5 and Other chronic pain G89.29 [facility] [address] [place] [address] Oct, COPD bronchitis J44.[address] [address] Oct, [facility] [address] [place] [address] Oct, [facility] [address] [place] [address] Oct, [facility] [address] Oct, Scabies B86 [address] [address] Oct, [facility] [address] [place] [address] [id number] Sep, [facility] [address] [place] [address] [id number] Sep, Human immunodeficiency virus (HIV) disease B20 ; Primary hypothyroidism E03.9 ; Intertrigo L30.4 ; COPD bronchitis J44.9 ; Cigarette nicotine dependence, uncomplicated F17.210 ; Seborrhea L21.9 ; Bilateral headaches R51 ; Chronic depression F32.9 and Anxiety F41.[address] [address] Sep, [address] [address] Sep, [address] [address] Aug, [address] [address] Aug, Upper respiratory infection J06.9 [facility] [address] [place] [id number] Aug, Abnormal CT of the head R93.[address] [address] Aug, [address] [address] Aug, [address] [address] July, Chronic depression F32.[address] [address] July, [address] [address] July, [address] [address] July, [address] [address] July, [address] [address] July, [facility] [address] [place] [id number] July, Insomnia G47.00 [facility] [address] [id number] July, Human immunodeficiency virus (HIV) disease B20 ; Abnormal thyroid exam R94.6 ; Vitamin B 12 deficiency E53.8 and Need for pneumococcal vaccination Z23 [address] [address] Jun, [address] [address] Jun, Primary insomnia F51.[address] [address] Jun, [address] [address] Jun, Primary hypothyroidism E03.[address] [address] May, Thrush B37.[address] [address] May, Acute upper respiratory infection J06.[address] [address] May, [address] [address] May, [facility] [address] [place] [address] [id number] May, Acquired immune deficiency syndrome B20 ; Routine gynecological examination Z01.419 ; Chronic depression F32.9 ; Generalized anxiety disorder F41.1 ; Primary insomnia F51.01 ; Dermatitis L30.9 and Glycosuria with normal serum glucose R81 [address] [address] May, Chronic depression F32.9 and Vertigo R42 [address] [address] May, [address] [address] May, [address] [address] May, [address] [address] May, Acute upper respiratory infection J06.[address] [address] Apr, [address] [address] Apr, Scabies B86 ; Bloating R14.0 ; Constipation by delayed colonic transit K59.01 ; Thrush B37.0 ; Migraine, unspecified, not intractable, without status migrainosus G43.909 ; Primary insomnia F51.01 ; Migraine with aura and without status migrainosus, not intractable G43.[address] of brain R90.[address] [address] Apr, [facility] [address] [place] [id number] Apr, Human immunodeficiency virus (HIV) disease B20 ; Slow transit constipation K59.01 ; Skin pruritus L29.9 and Scabies B86 [address] [address] Apr, Seborrhea L21.[address] [address] Apr, Generalized anxiety disorder F41.1 [facility] [address] [place] [address] [id number] Mar, Migraine, unspecified, not intractable, without status migrainosus G43.909 ; Restless leg syndrome G25.81 and Folliculitis L73.9 [facility] [address] [id number] Mar, Dental caries K02.[address] [address] Mar, [address] [address] Mar, [address] [address] Mar, [address] [address] Mar, [address] [id number] Mar, Acquired immune deficiency syndrome B20 ; Folliculitis L73.9 ; Chronic depression F32.9 ; Low back pain M54.5 ; Generalized anxiety disorder F41.1 ; GERD (gastroesophageal reflux disease) K21.9 ; Primary insomnia F51.01 ; Chronic idiopathic constipation K59.04 and Acute cystitis with hematuria N30.[address] [address] Feb, [address] [id number] Feb, Other constipation K59.[address] [address] Feb, [address] [address] Feb, [address] [address] Feb, [address] [address] Jan, Chronic depression F32.9 ; Primary insomnia F51.01 and Bloating R14.[address] [address] Jan, Chronic depression F32.9 ; Primary insomnia F51.01 and Bloating R14.[address] [address] Jan, Chronic depression F32.9 ; Primary insomnia F51.01 ; GERD ( gastroesophageal reflux disease) K21.9 ; AIDS B20 ; SOB (shortness of breath) R06.02 ; Low back pain M54.5 and Seasonal allergic rhinitis due to pollen J30.[address] [id number] Jan, Acquired immune deficiency syndrome B20 ; Chronic depression F32.9 ; Generalized anxiety disorder F41.1 ; Cervicalgia M54.2 ; Primary insomnia F51.01 and Abdominal distension (gaseous) R14.[address] [address] Jan, [address] [id number] Dec, Acquired immune deficiency syndrome B20 ; snf current use of 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 Z79.891 ; Screening for tuberculosis Z11.1 ; Chronic depression F32.9 ; Generalized anxiety disorder F41.1 ; Vertigo R42 ; Diaphoresis R61 and Urinary tract infection, site unspecified N39.[address] [address] Dec, [address] [address] Dec, [address] [address] Nov, SOB (shortness of breath) R06.[address] [address] Nov, [address] [address] Nov, Abnormal chest xray R93.[address] [address] Nov, [address] [id number] Nov, Hospital discharge follow-up Z09 ; Smoker F17.200 ; Moderate episode of recurrent major depressive disorder F33.1 ; Primary insomnia F51.01 and Human immunodeficiency virus [HIV] disease B20 [address] [address] Nov, [address] [address] Nov, AIDS B20 [address] [address] Nov, [facility] [address] [place] [address] Nov, [facility] [address] [place] [address] Oct, Acquired immune deficiency syndrome 042 [facility] [address] [place] [address] Oct, [facility] [address] [place] [address] Oct, [facility] [address] [place] [address] Sep, [facility] [address] [place] [address] [id number] Jun, AIDS B20 ; Acute vaginitis N76.0 and Irregular menses N92.6 [facility] [address] [place] [address] Jun, [facility] [address] [place] [address] Jun, [facility] [address] [place] [address] Jun, [facility] [address] [place] [address] Jun, [facility] [address] [place] [address] Jun, Urinary tract infection, site not specified N39.0 [facility] [address] [place] [address] Jun, [facility] [address] [place] [address] May, [facility] [address] [place] [address] Apr, Insomnia, unspecified G47.00 [facility] [address] [place] [address] Mar, Urinary tract infection, site not specified N39.0 [facility] [address] [place] [address] [id number] Mar, Cloudy urine R82.90 and Abnormal urinalysis R82.[address] [address] Mar, Cloudy urine R82.[address] [address] Feb, Low back pain M54.5 and Smoking F17.[address] [address] Feb, Low back pain M54.[address] [address] Feb, [facility] [address] [place] [address] [id number] Feb, Acquired immune deficiency syndrome B20 ; Low back pain M54.5 ; Smoking F17.200 ; Generalized anxiety disorder F41.1 ; Chronic depression F32.9 and Degenerative arthritis of knee, bilateral M17.[address] [address] Feb, Insomnia, unspecified G47.[address] [address] Dec, Head lice B85.0 and Upper respiratory infection J06.[address] [address] Dec, Depressive disorder, not elsewhere classified F32.[address] [address] Dec, Acute upper respiratory infection, unspecified J06.[address] [address] Nov, [address] [address] Oct, Upper respiratory infection 465.9 [facility] [address] [id number] Oct, Acquired immune deficiency syndrome 042 ; Diarrhea 787.91 ; Insomnia 780.52 and Nondependent tobacco use disorder 305.[address] [address] Oct, [facility] [address] [place] [address] Sep, Abdominal pain 789.00 [facility] [address] [place] [address] Sep, [facility] [address] [place] [address] [id number] Sep UTI (lower urinary tract infection) 599.0 ; Colitis 558.9 and Small intestinal bacterial overgrowth 569.89 [facility] [address] [place] [address] Sep, Diarrhea 787.91 [facility] [address] [place] [address] Sep, [facility] [address] [place] [address] Sep, [address] [address] Sep, Lumbago 724.[address] [address] Sep, [facility] [address] [address] Sep, Lumbago 724.[address] [address] Aug, [facility] [address] [place] [address] [id number] Aug, UTI (urinary tract infection) 599.0 [facility] [address] [place] [address] Aug, Lumbago 724.2 and UTI (urinary tract infection) 599.0 [facility] [address] [place] [address] [id number] Aug [facility] [address] [place] [address] Aug, Lumbago 724.[address] [address] Aug, Yeast infection 112.9 [facility] [address] [place] [address] [id number] Aug Diarrhea 787.91 ; Abdominal pain 789.00 and Thickened small bowel 569.89 [facility] [address] [place] [address] [id number] Aug [facility] [address] [place] [id number] Aug, [address] [address] Aug, [address] [address] Aug, [address] [address] Aug, Nausea 787.[address] [address] Aug, [facility] [address] [place] [address] [id number] Aug, Acquired immune deficiency syndrome 042 ; GERD (gastroesophageal reflux disease) 530.81 ; UTI (lower urinary tract infection) 599.0 ; Colitis 558.9 and Nondependent tobacco use disorder 305.[address] [address] July, [facility] [address] [place] [address] [id number] Jun, Human immunodeficiency virus [HIV] 042 and Dysuria 788.[address] [address] Jun, UTI symptoms 788.[address] [address] May, Obesity 278.[address] [address] May, [address] [address] May, Dysuria 788.1 and Candidiasis of genitalia in female 112.[address] [address] May, UTI (urinary tract infection) 599.0 [facility] [address] [place] [address] [id number] Apr, Acquired immune deficiency syndrome 042 ; Insomnia 780.52 ; Anxiety 300.00 ; Nondependent tobacco use disorder 305.1 ; Depressive disorder, not elsewhere classified 311 ; Lumbago 724.2 ; Migraine 346.90 and Encounter for long-term current use of medication V58.69 [facility] [address] [place] [address] Mar, [facility] [address] [place] [address] Mar, [facility] [address] [place] [address] Mar, Human immunodeficiency virus (HIV) disease 042 and Sinusitis 473.[address] [address] Mar, [facility] [address] [facility] [address] [place] [id number] Feb, Insomnia 780.52 [facility] [address] [facility] [address] [place] [id number] Feb, [facility] [address] [place] [address] Feb, [facility] [address] [place] [address] Feb, [facility] [address] [place] [address] Feb, [facility] [address] [place] [address] Feb, Sinusitis 473.9 [facility] [address] [place] [address] Feb, [facility] [address] [place] [address] Feb, [facility] [address] [place] [address] Jan, UTI (urinary tract infection) 599.0 UNKNOWN Jan, Depressive disorder, not elsewhere classified 311 [facility] [address] [place] [address] Dec, Diarrhea 787.91 [facility] [address] [place] [address] Dec, [facility] [address] [place] [id number] Nov, Human immunodeficiency virus (HIV) disease 042 ; Lumbago 724.2 and Nondependent tobacco use disorder 305.1 [facility] [address] [place] [address] Nov, Anxiety 300.00 [facility] [address] [place] [address] Nov, Nondependent tobacco use disorder 305.1 and Dysuria 788.1 [facility] [address] [facility] [address] [place] [id number] Oct, [facility] [address] [facility] [address] [place] [id number] Oct, [facility] [address] [place] [address] Oct, [facility] [address] [place] [address] Sep, [facility] [address] [place] [address] Sep, [facility] [address] [place] [address] Sep, [facility] [address] [place] [address] May, [facility] [address] [place] [address] Mar, [facility] [address] [place] [address] Jan, [facility] [address] [facility] [place] [address] Nov, [facility] [address] [facility] [place] [address] Oct, [facility] [address] [place] [address] Oct, [facility] [address] [facility] [place] [address] Oct, [facility] [address] [place] [facility] [address] Aug, [facility] [address] [place] [facility] [address] Aug, [facility] [address] [place] [facility] [address] July, [facility] [address] [place] [facility] [address] July, [facility] [address] [place] [facility] [address] July, [facility] [address] [place] [facility] [address] Jun, [facility] [address] [place] [facility] [address] Jun, [facility] [address] [place] [facility] [address] Jun, [facility] [address] [place] [facility] [address] Jun, [facility] [address] [place] [facility] [address] Jun, [facility] [address] [place] [facility] [address] May, [facility] [address] [place] [facility] [address] Dec, [facility] [address] [place] [facility] [address] Dec, [facility] [address] [place] [facility] [address] Mar, [facility] [address] [facility] [address] [place] [phone] Dec, IMMUNIZATIONS No Known Immunizations SOCIAL HISTORY Never Assessed REASON FOR VISIT Client requesting referral PLAN OF CARE VITAL SIGNS MEDICATIONS [...] History Abdominal pain, unspecified site Medical History intermediate card tender (current) 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
--- OUTSIDE RECORDS SUMMARY | 2017-10-06 17:16 | XMS REPORT ---
Author Author MICHAEL MENJIVAR Organization [facility] Address [address] [place] [address] Care Team Providers Care Wiring Inspector Name Role Phone MENJIVARNESHA RichardELE Unavailable PROBLEMS Type Condition ICD9-CM Code [id number] Code Onset Dates Condition Status SNOMED Code Problem Hypertriglyceridemia E78.1 Active 167529358 Problem Gastritis determined by endoscopy K29.70 Active 8064998 Problem Iron deficiency anemia secondary to inadequate dietary iron intake D50.8 Active 090898198 Problem Generalized headaches R51 Active 214677577 Problem HIV antibody positive Z21 Active 275833122 Problem Tobacco abuse counseling Z71.6 Active 331494763 Problem Recurrent major depressive disorder, in full remission F33.42 Active 424238218 Problem Tobacco abuse Z72.0 Active 470819745 Problem Presence of cardiac pacemaker Z95.0 Active 437557271 Problem ADHD, adult residual type F90.8 Active 777995570 Problem Other specified cardiac arrhythmias I49.8 Active 808590652 Problem Coronary artery disease involving [place] coronary artery of [place] heart without angina pectoris I25.10 Active 0251643949568 Problem Low libido R68.82 Active 6776967 Problem Lumbago with sciatica, left side M54.42 Active 800975937 Problem Other chronic pain G89.29 Active 74314979 Problem Cannabis use disorder, severe, in sustained remission F12.21 Active 68094831 Problem Methamphetamine use disorder, severe, 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 Active 41644431 Problem Bipolar 1 disorder with moderate marii F31.12 Active 49414453 Problem Irritant dermatitis L24.9 Active 637827084 Problem Irregular periods N92.6 Active 45069301 Problem Lumbago with sciatica, right side M54.41 Active 164457807 Problem Irritable bowel syndrome with both constipation and diarrhea K58.2 Active 59692763 Problem Mood disorder F39 Active 89339419 Problem PTSD (post-traumatic stress disorder) F43.10 Active 08202689 Problem Cocaine use disorder, severe, in sustained remission F14.21 Active 50052874 Problem Alcohol use disorder, severe, in sustained remission F10.21 Active 06286989 Problem Obesity (BMI 30.0-34.9) E66.9 Active 303818640687268 Problem Chronic migraine without aura without status migrainosus, not intractable G43.709 Active 543553891 Problem Anxiety F41.9 Active 07435627 Problem Primary insomnia F51.01 Active 8561252 ALLERGIES No Information ENCOUNTERS Encounter Location Date Diagnosis [place] [id number] [place] [address]25- 8094 Oct, [place] [address] [address] Sep, Other specified bacterial agents as the cause of diseases classified elsewhere B96.89 and Acute vaginitis N76.0 [place] [id number] [place] [address] 24296- 9570 13 Sep, 2017 Lower abdominal pain R10.30 ; Vaginal candidiasis B37.3 ; Lumbago with sciatica, left side M54.42 ; Lumbago with sciatica, right side M54.41 ; Rash R21 ; Obesity (BMI 30.0-34.9) E66.9 ; Other specified bacterial agents as the cause of diseases classified elsewhere B96.89 and Acute vaginitis N76.0 [facility] [id number] [place] [address] 36800- 4580 Sep, [place] [id number] [place] [address] 87313- 5484 Sep, [facility] [id number] [place] [address] 67999- 3111 Sep, HIV antibody positive Z21 ; Obesity (BMI 30.0-34.9) E66.9 ; Chronic migraine without aura without status migrainosus, not intractable G43.709 ; Lumbago with sciatica, right side M54.41 and Other chronic pain G89.29 [facility] [id number] [place] [address] 08666 -3448 Aug, Abdominal pain R10.9 and Acute cystitis without hematuria N30.00 [place] [id number] [place] [address] 38362- 9237 July, [facility] [id number] [place] [address] 25280- 4345 Jun, [place] [id number] [place] [address] 78371- 7291 Jun, [place] [id number] [place] [address] 72178- 2973 May, [place] [address] 53665- 2203 May, Irritable bowel syndrome with both constipation and diarrhea K58.2 ; Tobacco abuse Z72.0 ; Tobacco abuse counseling Z71.6 ; Low libido R68.82 and Alcohol use disorder, severe, in sustained remission F10.21 [place] [id number] [place] [address] 99329- 7637 May, Tobacco abuse Z72.0 [place] [id number] [place] [address] 82249- 6440 May, HIV antibody positive Z21 ; Irregular periods N92.6 and Low libido R68.82 [place] [id number] [place] [address] 10879- 6067 May, Primary insomnia F51.01 and Folliculitis L73.9 [place] [id number] [place] [address] 90237- 5795 May, HIV antibody positive Z21 ; Irregular periods N92.6 and Low libido R68.82 [place] [id number] [place] [address] 71354- 8726 May, [place] [id number] [place] [address] 80841- 9848 May, [place] [id number] [place] [address] 28507- 1347 May, [facility] [id number] [place] [address] 27638- 9523 May, Anxiety F41.9 [facility] [address] 71222- 0106 May, Anxiety F41.9 [facility] [address] 65111- 8781 May, [place] [address] 51061- 2552 May, Acute cystitis with hematuria N30.01 ; HIV antibody positive Z21 ; Primary insomnia F51.01 ; Gastritis determined by endoscopy K29.70 ; Low libido R68.82 ; Tobacco abuse Z72.0 and Vaginal candidiasis B37.3 [place] [address] 90646- 9050 Apr, [place] [address] 94040- 8674 Apr, [place] [address] 47139- 7518 Apr, Allergic contact dermatitis, unspecified trigger L23.9 [place] [address] 96901- 1373 Apr, [place] [address] 15143- 3892 Apr, Irregular periods N92.6 ; Irritant dermatitis L24.9 and Anxiety F41.9 [facility] [address] 45[address] -0059 Apr, Vaginal discharge N89.8 and Folliculitis L73.9 [facility] [address] 35225- 2698 Apr, [place] [address] 87186- 3395 Apr, [place] [address] 34586- 3455 Apr, [place] [address] 00120- 6176 Mar, HIV antibody positive Z21 ; Anxiety [...] R30.0 and Gastritis determined by endoscopy K29.70 [place] [address] 17757- 7216 Mar, [place] [address] 60329- 8986 Mar, [place] [address] 67502- 9908 Mar, [place] [address] 96817- 8673 Mar, [place] [id number] [place] [address] 27159- 1219 Mar, [facility] [address] 52750 -1378 Mar, Vaginal horacio B37.3 [place] [address] 90171- 5914 Feb, Dysuria R30.0 ; Acute cystitis with hematuria N30.01 ; HIV antibody positive Z21 ; Eczema, unspecified type L30.9 and Wound of left lower extremity, initial encounter S81.802A [place] [address] 39093- 0138 Feb, [place] [id number] [place] [address] 20590- 0574 Feb, [place] [id number] [place] [address] 48003- 6432 Feb, [facility] [address] [address] 8[address] Feb, [place] [id number] [place] [address] 06667- 5088 Feb, Dermatitis L30.9 ; HIV antibody positive Z21 ; Bipolar 1 disorder with moderate marii F31.12 ; History of gastric bypass Z98.890 ; Primary insomnia F51.01 ; Tobacco abuse Z72.0 ; Anxiety F41.9 and Obesity (BMI 30.0-34.9) E66.9 [place] [id number] [place] [address] 44360- 8683 Jan, [place] [id number] [place] [address] 20678- 0866 Jan, Mood disorder F39 ; PTSD (post-traumatic stress disorder) F43.10 ; Methamphetamine use disorder, severe, 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 ; Alcohol use disorder, severe, in sustained remission F10.21 ; Cannabis use disorder, severe, in sustained remission F12.21 and Cocaine use disorder, severe , in sustained remission F14.21 [place] [address] [place] [address] 63090- 1134 Jan, [place] [id number] [place] [address] 23975- 5317 Jan, [place] [id number] [place] [address] 65848- 6377 Jan, [place] [id number] [place] [address] 88702- 4652 Jan, [place] [id number] [place] [address] 03220- 5575 Jan, Mood disorder F39 ; PTSD (post-traumatic stress disorder) F43.10 ; Methamphetamine use disorder, severe, 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 ; Alcohol use disorder, severe, in sustained remission F10.21 ; Cannabis use disorder, severe, in sustained remission F12.21 and Cocaine use disorder, severe , in sustained remission F14.21 [place] [id number] [place] [address] 34092- 4537 Dec, [place] [address] 38803- 0389 Dec, [place] [address] 32318- 9706 Dec, ADHD, adult residual type F90.8 ; Post traumatic stress disorder (PTSD) F43.10 and Bipolar 1 disorder with moderate marii F31.12 [place] [address] 28205- 5244 2016 Dysuria R30.0 ; Routine screening for STI (sexually transmitted infection) Z11.3 and Routine gynecological examination Z01.419 [place] [id number] [place] [address] 32815- 6112 10 Dec, 2016 Eczema, unspecified type L30.9 ; History of UTI Z87.440 and Hospital discharge follow-up Z09 [place] [id number] [place] [address] 79595- 1580 09 Dec, 2016 [facility] [id number] [place] [address] 53137- 2477 02 Dec, 2016 Visit for suture removal Z48.02 [facility] [id number] [place] [address] 70500 -2129 Nov, [facility] [address] 76570- 8711 Nov, [facility] [id number] [place] [address] 24681- 7130 Nov, [facility] [address] 67457- 4089 Nov, [facility] [id number] [place] [address] 35112- 3770 22 Nov, 2016 [facility] [id number] [place] [address] 00109- 1677 21 Nov, 2016 [facility] [id number] [place] [address] 81050- 1800 19 Nov, 2016 Rash R21 [facility] [address] 84587 -6006 18 Nov, 2016 Abnormal stools R19.5 [facility] [address] 18166 -3986 13 Nov, 2016 Rash R21 [facility] [address] [id number] Sep, Dental examination Z01.20 [facility] [id number] [place] [address] 74998 -7653 Sep, Acute back pain M54.9 [facility] [id number] [place] [address] 33625- 4516 Aug, [facility] [id number] [place] [address] 57831- 3362 Aug, [facility] [id number] [place] [address] 91043 -1888 Aug, Cough R05 and Community acquired pneumonia J18.9 [facility] [id number] [place] [address] [id number] Jun, Dental examination Z01.20 [facility] [address] 00609 -5124 16 May, 2016 Allergic contact dermatitis, unspecified trigger L23.9 [facility] [id number] [place] [address] 91213- 5805 10 Apr, 2016 [facility] [address] 79479- 6935 Mar, Skin sore L98.9 [facility] [address] [facility] [id number] [address] Mar, Constipation, unspecified constipation type K59.00 [facility] [address] [facility] [id number] [address]- 4816 Feb, Skin sore L98.9 ; Excoriation (skin-picking) disorder F42.4 and HIV antibody positive Z21 [facility] [address] [facility] [id number] [address] 4848 Feb, Routine health maintenance Z00.00 ; Family [...] Pacemaker Z95.0 and Left hip pain M25.552 [facility] [address] [facility] [id number] [id number] Jan, Encounter for dental examination and cleaning without abnormal findings Z01.20 IMMUNIZATIONS No Known Immunizations SOCIAL HISTORY Never Assessed REASON FOR VISIT Hormone Therapy PLAN OF CARE VITAL SIGNS MEDICATIONS Unknown [...] Surgical History hernia repair Hospitalization History in [place] Dec 2015 Hospitalization History inpatient [place]-unsure date Hospitalization History [facility] ED visit, uti 08/28/2017
--- OUTSIDE RECORDS SUMMARY | 2017-10-06 17:17 | XMS REPORT ---
Author Author MICHAEL MENJIVAR Organization [facility] Address [address] [place] [address] Care Team Providers Care Filament Tester Name Role Phone MENJIVARNESHA RichardELE Unavailable PROBLEMS Type Condition ICD9-CM Code LJR83-XJ Code Onset Dates Condition Status SNOMED Code Problem Hypertriglyceridemia E78.1 Active 972153143 Problem Gastritis determined by endoscopy K29.70 Active 0506955 Problem Iron deficiency anemia secondary to inadequate dietary iron intake D50.8 Active 143649570 Problem Generalized headaches R51 Active 338974750 Problem HIV antibody positive Z21 Active 901522181 Problem Tobacco abuse counseling Z71.6 Active 671567030 Problem Recurrent major depressive disorder, in full remission F33.42 Active 962426838 Problem Tobacco abuse Z72.0 Active 968326568 Problem Presence of cardiac pacemaker Z95.0 Active 385514858 Problem ADHD, adult residual type F90.8 Active 931271080 Problem Other specified cardiac arrhythmias I49.8 Active 250060084 Problem Coronary artery disease involving [place] coronary artery of [place] heart without angina pectoris I25.10 Active 2368766423300 Problem Low libido R68.82 Active 7067731 Problem Lumbago with sciatica, left side M54.42 Active 136859347 Problem Other chronic pain G89.29 Active 10552928 Problem Cannabis use disorder, severe, in sustained remission F12.21 Active 02655206 Problem Methamphetamine use disorder, severe, 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 Active 93062028 Problem Bipolar 1 disorder with moderate marii F31.12 Active 69308414 Problem Irritant dermatitis L24.9 Active 625429965 Problem Irregular periods N92.6 Active 01972652 Problem Lumbago with sciatica, right side M54.41 Active 848233435 Problem Irritable bowel syndrome with both constipation and diarrhea K58.2 Active 73132635 Problem Mood disorder F39 Active 72966699 Problem PTSD (post-traumatic stress disorder) F43.10 Active 79340889 Problem Cocaine use disorder, severe, in sustained remission F14.21 Active 40231673 Problem Alcohol use disorder, severe, in sustained remission F10.21 Active 49031238 Problem Obesity (BMI 30.0-34.9) E66.9 Active 428788675821588 Problem Chronic migraine without aura without status migrainosus, not intractable G43.709 Active 001060634 Problem Anxiety F41.9 Active 56990695 Problem Primary insomnia F51.01 Active 7145249 ALLERGIES No Information ENCOUNTERS Encounter Location Date Diagnosis [facility] [id number] [place] [address] 16823- 6429 Oct, [place] [address] 164[address] Sep, Other specified bacterial agents as the cause of diseases classified elsewhere B96.89 and Acute vaginitis N76.0 [facility] [facility] [id number] [place] [address] 24085- 5874 13 Sep, 2017 Lower abdominal pain R10.30 ; Vaginal candidiasis B37.3 ; Lumbago with sciatica, left side M54.42 ; Lumbago with sciatica, right side M54.41 ; Rash R21 ; Obesity (BMI 30.0-34.9) E66.9 ; Other specified bacterial agents as the cause of diseases classified elsewhere B96.89 and Acute vaginitis N76.0 [facility] [id number] [place] [address] 15381- 5884 Sep, [place] [id number] [place] [address] 65720- 7204 Sep, [facility] [id number] [place] [address] 31408- 1492 Sep, HIV antibody positive Z21 ; Obesity (BMI 30.0-34.9) E66.9 ; Chronic migraine without aura without status migrainosus, not intractable G43.709 ; Lumbago with sciatica, right side M54.41 and Other chronic pain G89.29 [facility] [id number] [place] [address] 74258 -6155 Aug, Abdominal pain R10.9 and Acute cystitis without hematuria N30.00 [facility] [id number] [place] [address] 14890- 2579 July, [facility] [id number] [place] [address] 54557- 9660 Jun, [place] [id number] [place] [address] 65304- 5695 Jun, [facility] [id number] [place] [address] 85166- 1064 May, [place] [address] 29002- 0763 May, Irritable bowel syndrome with both constipation and diarrhea K58.2 ; Tobacco abuse Z72.0 ; Tobacco abuse counseling Z71.6 ; Low libido R68.82 and Alcohol use disorder, severe, in sustained remission F10.21 [facility] [facility] [id number] [place] [address] 54154- 9860 May, Tobacco abuse Z72.0 [facility] [id number] [place] [address] 01282- 3875 May, HIV antibody positive Z21 ; Irregular periods N92.6 and Low libido R68.82 [facility] [facility] [id number] [place] [address] 67067- 6570 May, Primary insomnia F51.01 and Folliculitis L73.9 [facility] [id number] [place] [address] 02627- 9169 May, HIV antibody positive Z21 ; Irregular periods N92.6 and Low libido R68.82 [facility] [id number] [place] [address] 71278- 9122 May, [place] [id number] [place] [address] 52490- 7684 May, [place] [id number] [place] [address] 19066- 5223 May, [facility] [id number] [place] [address] 66679- 5423 May, Anxiety F41.9 [facility] [address] 70069- 4343 May, Anxiety F41.9 [facility] [address] 63610- 1911 May, [place] [address] 05136- 3225 May, Acute cystitis with hematuria N30.01 ; HIV antibody positive Z21 ; Primary insomnia F51.01 ; Gastritis determined by endoscopy K29.70 ; Low libido R68.82 ; Tobacco abuse Z72.0 and Vaginal candidiasis B37.3 [facility] [address] 09413- 5702 Apr, [place] [address] 30598- 0848 Apr, [place] [address] 13512- 9226 Apr, Allergic contact dermatitis, unspecified trigger L23.9 [facility] [address] 37005- 5751 Apr, [place] [address] 26311- 4811 Apr, Irregular periods N92.6 ; Irritant dermatitis L24.9 and Anxiety F41.9 [facility] [address] 97964 -1277 Apr, Vaginal discharge N89.8 and Folliculitis L73.9 [facility] [address] 98987- 2441 Apr, [place] [address] 36012- 5447 Apr, [place] [address] 31783- 6419 Apr, [place] [address] 48609- 4285 Mar, HIV antibody positive Z21 ; Anxiety [...] R30.0 and Gastritis determined by endoscopy K29.70 [place] [address] 01526- 2279 Mar, [place] [address] 40711- 3884 Mar, [place] [address] 61875- 1944 Mar, [place] [address] 76269- 3447 Mar, [place] [id number] [place] [address] 33036- 2433 Mar, [facility] [address] 13149 -0484 Mar, Vaginal horacio B37.3 [place] [address] 09441- 8979 Feb, Dysuria R30.0 ; Acute cystitis with hematuria N30.01 ; HIV antibody positive Z21 ; Eczema, unspecified type L30.9 and Wound of left lower extremity, initial encounter S81.802A [place] [address] 83286- 8820 Feb, [place] [id number] [place] [address] 94333- 5083 Feb, [place] [id number] [place] [address] 52972- 5410 Feb, [facility] [address] [address]26 Feb, [place] [id number] [place] [address] 16987- 2788 Feb, Dermatitis L30.9 ; HIV antibody positive Z21 ; Bipolar 1 disorder with moderate marii F31.12 ; History of gastric bypass Z98.890 ; Primary insomnia F51.01 ; Tobacco abuse Z72.0 ; Anxiety F41.9 and Obesity (BMI 30.0-34.9) E66.9 [place] [id number] [place] [address] 91698- 0566 Jan, [place] [id number] [place] [address] 28890- 6899 Jan, Mood disorder F39 ; PTSD (post-traumatic stress disorder) F43.10 ; Methamphetamine use disorder, severe, 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 ; Alcohol use disorder, severe, in sustained remission F10.21 ; Cannabis use disorder, severe, in sustained remission F12.21 and Cocaine use disorder, severe , in sustained remission F14.21 [place] [address] [place] [address] 42418- 9088 Jan, [place] [id number] [place] [address] 07379- 9333 Jan, [place] [id number] [place] [address] 22947- 1618 Jan, [place] [id number] [place] [address] 20021- 9010 Jan, [place] [address] [place] [address] 47618- 2095 Jan, Mood disorder F39 ; PTSD (post-traumatic stress disorder) F43.10 ; Methamphetamine use disorder, severe, 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 ; Alcohol use disorder, severe, in sustained remission F10.21 ; Cannabis use disorder, severe, in sustained remission F12.21 and Cocaine use disorder, severe , in sustained remission F14.21 [place] [id number] [place] [address] 36359- 9926 Dec, [place] [address] 61632- 9201 Dec, [place] [address] 14130- 2244 Dec, ADHD, adult residual type F90.8 ; Post traumatic stress disorder (PTSD) F43.10 and Bipolar 1 disorder with moderate marii F31.12 [place] [address] 79116- 3963 2016 Dysuria R30.0 ; Routine screening for STI (sexually transmitted infection) Z11.3 and Routine gynecological examination Z01.419 [place] [id number] [place] [address] 01780- 8474 10 Dec, 2016 Eczema, unspecified type L30.9 ; History of UTI Z87.440 and Hospital discharge follow-up Z09 [place] [id number] [place] [address] 07811- 5753 09 Dec, 2016 [facility] [id number] [place] [address] 47906- 2968 02 Dec, 2016 Visit for suture removal Z48.02 [facility] [id number] [place] [address] 43379 -7098 Nov, [facility] [address] 28348- 1236 Nov, [facility] [id number] [place] [address] 06826- 2736 Nov, [facility] [address] 62040- 3404 Nov, [facility] [id number] [place] [address] 33067- 1584 22 Nov, 2016 [facility] [id number] [place] [address] 16846- 0507 21 Nov, 2016 [facility] [id number] [place] [address] 79280- 4775 19 Nov, 2016 Rash R21 [facility] [address] 15714 -8456 18 Nov, 2016 Abnormal stools R19.5 [facility] [address] 17383 -7413 13 Nov, 2016 Rash R21 [facility] [address] [id number] Sep, Dental examination Z01.20 [facility] [id number] [place] [address] 83184 -8786 Sep, Acute back pain M54.9 [facility] [id number] [place] [address] 74553- 9215 Aug, [facility] [id number] [place] [address] 72253- 6320 Aug, [facility] [id number] [place] [address] 46889 -3237 Aug, Cough R05 and Community acquired pneumonia J18.9 [facility] [id number] [place] [address] [id number] Jun, Dental examination Z01.20 [facility] [address] 04142 -8323 16 May, 2016 Allergic contact dermatitis, unspecified trigger L23.9 [facility] [id number] [place] [address] 08250- 2925 10 Apr, 2016 [facility] [address] 10121- 7876 Mar, Skin sore L98.9 [facility] [address] [facility] [id number] [address] Mar, Constipation, unspecified constipation type K59.00 [facility] [address] [facility] [address] [id number] [address] 9493 Feb, Skin sore L98.9 ; Excoriation (skin-picking) disorder F42.4 and HIV antibody positive Z21 [facility] [address] [facility] [id number] [address] Feb, Routine health maintenance Z00.00 ; Family history of diabetes mellitus Z83.3 ; HIV antibody positive Z21 ; 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 ; Tobacco abuse Z72.0 ; Tobacco abuse counseling Z71.6 ; Restless legs syndrome G25.81 ; Generalized headaches R51 ; History of gastric bypass Z98.890 ; History of TN (myocardial infarction) I25.2 ; Pacemaker Z95.0 and Left hip pain M25.552 [facility] [address] [facility] [id number] [id number] Jan, Encounter for dental examination and cleaning without abnormal findings Z01.20 IMMUNIZATIONS No Known Immunizations SOCIAL HISTORY Never Assessed REASON FOR VISIT Medication PLAN OF CARE VITAL SIGNS MEDICATIONS Medication Instructions Dosage Frequency Start Date End Date Duration Status BusPIRone HCl 10 mg Orally 3 times a day as needed 1 tablet Feb, 30 days Active RESULTS No Results PROCEDURES [...] Surgical History hernia repair Hospitalization History in [place] Dec 2015 Hospitalization History inpatient [place]-unsure date Hospitalization History [facility] ED visit, uti 08/28/2017
--- OUTSIDE RECORDS SUMMARY | 2017-10-06 17:17 | XMS REPORT ---
Author Author MICHAEL MENJIVAR Organization [facility] Address [address] [place] [address] Care Team Providers Care Bolter Helper Name Role Phone MENJIVARNESHA RichardELE Unavailable PROBLEMS Type Condition ICD9-CM Code UDW40-UJ Code Onset Dates Condition Status SNOMED Code Problem Hypertriglyceridemia E78.1 Active 904948964 Problem Gastritis determined by endoscopy K29.70 Active 2486282 Problem Iron deficiency anemia secondary to inadequate dietary iron intake D50.8 Active 388413785 Problem Generalized headaches R51 Active 359407053 Problem HIV antibody positive Z21 Active 200593707 Problem Tobacco abuse counseling Z71.6 Active 438033734 Problem Recurrent major depressive disorder, in full remission F33.42 Active 657560790 Problem Tobacco abuse Z72.0 Active 603252880 Problem Presence of cardiac pacemaker Z95.0 Active 265044449 Problem ADHD, adult residual type F90.8 Active 647800499 Problem Other specified cardiac arrhythmias I49.8 Active 676218078 Problem Coronary artery disease involving [place] coronary artery of guid[place] heart without angina pectoris I25.10 Active 1432741694002 Problem Low libido R68.82 Active 4828137 Problem Lumbago with sciatica, left side M54.42 Active 356302119 Problem Other chronic pain G89.29 Active 24030743 Problem Cannabis use disorder, severe, in sustained remission F12.21 Active 34379054 Problem Methamphetamine use disorder, severe, 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 Active 94310197 Problem Bipolar 1 disorder with moderate marii F31.12 Active 17826147 Problem Irritant dermatitis L24.9 Active 917877991 Problem Irregular periods N92.6 Active 36025609 Problem Lumbago with sciatica, right side M54.41 Active 943710638 Problem Irritable bowel syndrome with both constipation and diarrhea K58.2 Active 20996529 Problem Mood disorder F39 Active 33758958 Problem PTSD (post-traumatic stress disorder) F43.10 Active 41290610 Problem Cocaine use disorder, severe, in sustained remission F14.21 Active 10852357 Problem Alcohol use disorder, severe, in sustained remission F10.21 Active 20289500 Problem Obesity (BMI 30.0-34.9) E66.9 Active 969422685494472 Problem Chronic migraine without aura without status migrainosus, not intractable G43.709 Active 814652041 Problem Anxiety F41.9 Active 33110049 Problem Primary insomnia F51.01 Active 4340965 ALLERGIES No Information ENCOUNTERS Encounter Location Date Diagnosis [facility] [id number] [place] [address]73- 1340 Oct, [place] [address] [address] Sep, Other specified bacterial agents as the cause of diseases classified elsewhere B96.89 and Acute vaginitis N76.0 [facility] [id number] [place] [address] 65916- 3919 13 Sep, 2017 Lower abdominal pain R10.30 ; Vaginal candidiasis B37.3 ; Lumbago with sciatica, left side M54.42 ; Lumbago with sciatica, right side M54.41 ; Rash R21 ; Obesity (BMI 30.0-34.9) E66.9 ; Other specified bacterial agents as the cause of diseases classified elsewhere B96.89 and Acute vaginitis N76.0 [facility] [id number] [place] [address] 87065- 5784 Sep, [place] [id number] [place] [address] 29169- 3370 Sep, [facility] [id number] [place] [address] 80601- 7779 Sep, HIV antibody positive Z21 ; Obesity (BMI 30.0-34.9) E66.9 ; Chronic migraine without aura without status migrainosus, not intractable G43.709 ; Lumbago with sciatica, right side M54.41 and Other chronic pain G89.29 [facility] [id number] [place] [address]56 -7190 Aug, Abdominal pain R10.9 and Acute cystitis without hematuria N30.00 [facility] [id number] [place] [address] 42380- 6927 July, [facility] [id number] [place] [address] 22783- 9977 Jun, [place] [id number] [place] [address] 87521- 1779 Jun, [place] [id number] [place] [address] 57778- 4208 May, [place] [address] 64168- 4383 May, Irritable bowel syndrome with both constipation and diarrhea K58.2 ; Tobacco abuse Z72.0 ; Tobacco abuse counseling Z71.6 ; Low libido R68.82 and Alcohol use disorder, severe, in sustained remission F10.21 [facility] [id number] [place] [address] 02568- 0768 May, Tobacco abuse Z72.0 [place] [id number] [place] [address] 37122- 7301 May, HIV antibody positive Z21 ; Irregular periods N92.6 and Low libido R68.82 [facility] [id number] [place] [address] 24283- 9068 May, Primary insomnia F51.01 and Folliculitis L73.9 [facility] [id number] [place] [address] 76673- 5855 May, HIV antibody positive Z21 ; Irregular periods N92.6 and Low libido R68.82 [place] [id number] [place] [address] 04797- 8427 May, [facility] [id number] [place] [address] 83670- 6685 May, [place] [id number] [place] [address] 48487- 4481 May, [facility] [id number] [place] [address] 33402- 2643 May, Anxiety F41.9 [facility] [address] 43978- 1203 May, Anxiety F41.9 [facility] [address] 92305- 1921 May, [place] [address] 36725- 4506 May, Acute cystitis with hematuria N30.01 ; HIV antibody positive Z21 ; Primary insomnia F51.01 ; Gastritis determined by endoscopy K29.70 ; Low libido R68.82 ; Tobacco abuse Z72.0 and Vaginal candidiasis B37.3 [place] [address] 59389- 5118 Apr, [place] [address] 44975- 3978 Apr, [place] [address] 95954- 1566 Apr, Allergic contact dermatitis, unspecified trigger L23.9 [place] [address] 34837- 0399 Apr, [place] [address] 94102- 7047 Apr, Irregular periods N92.6 ; Irritant dermatitis L24.9 and Anxiety F41.9 [facility] [address] 67965 -8332 Apr, Vaginal discharge N89.8 and Folliculitis L73.9 [facility] [address] 18041- 2214 Apr, [place] [address] 46942- 8837 Apr, [place] [address] 04024- 7257 Apr, [place] [address] 75269- 8890 Mar, HIV antibody positive Z21 ; Anxiety [...] R30.0 and Gastritis determined by endoscopy K29.70 [place] [address] 27032- 4868 Mar, [place] [address] 03342- 3924 Mar, [place] [address] 95315- 8636 Mar, [place] [address] 59688- 6041 Mar, [place] [id number] [place] [address] 85244- 3519 Mar, [facility] [address] 28237 -9197 Mar, Vaginal horacio B37.3 [place] [address] 65054- 7101 Feb, Dysuria R30.0 ; Acute cystitis with hematuria N30.01 ; HIV antibody positive Z21 ; Eczema, unspecified type L30.9 and Wound of left lower extremity, initial encounter S81.802A [place] [address] 76223- 1439 Feb, [place] [address] [place] [address] 45900- 7693 Feb, [place] [id number] [place] [address] 68867- 7211 Feb, [facility] [address] [address] Feb, [place] [id number] [place] [address] 38787- 3302 Feb, Dermatitis L30.9 ; HIV antibody positive Z21 ; Bipolar 1 disorder with moderate marii F31.12 ; History of gastric bypass Z98.890 ; Primary insomnia F51.01 ; Tobacco abuse Z72.0 ; Anxiety F41.9 and Obesity (BMI 30.0-34.9) E66.9 [place] [id number] [place] [address] 04159- 1812 Jan, [place] [id number] [place] [address] 51869- 1367 Jan, Mood disorder F39 ; PTSD (post-traumatic stress disorder) F43.10 ; Methamphetamine use disorder, severe, 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 ; Alcohol use disorder, severe, in sustained remission F10.21 ; Cannabis use disorder, severe, in sustained remission F12.21 and Cocaine use disorder, severe , in sustained remission F14.21 [place] [address] [place] [address] 90618- 7033 Jan, [place] [id number] [place] [address] 51426- 3122 Jan, [place] [id number] [place] [address] 24395- 9485 Jan, [place] [id number] [place] [address] 71666- 9711 Jan, [place] [id number] [place] [address] 10332- 1208 Jan, Mood disorder F39 ; PTSD (post-traumatic stress disorder) F43.10 ; Methamphetamine use disorder, severe, 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 ; Alcohol use disorder, severe, in sustained remission F10.21 ; Cannabis use disorder, severe, in sustained remission F12.21 and Cocaine use disorder, severe , in sustained remission F14.21 [place] [id number] [place] [address] 14565- 4373 Dec, [place] [address] 93642- 7283 Dec, [place] [address] 45500- 0401 Dec, ADHD, adult residual type F90.8 ; Post traumatic stress disorder (PTSD) F43.10 and Bipolar 1 disorder with moderate marii F31.12 [place] [address] 16330- 4186 2016 Dysuria R30.0 ; Routine screening for STI (sexually transmitted infection) Z11.3 and Routine gynecological examination Z01.419 [place] [id number] [place] [address] 77473- 6225 10 Dec, 2016 Eczema, unspecified type L30.9 ; History of UTI Z87.440 and Hospital discharge follow-up Z09 [place] [id number] [place] [address] 91560- 1394 09 Dec, 2016 [facility] [id number] [place] [address] 15380- 6624 02 Dec, 2016 Visit for suture removal Z48.02 [facility] [id number] [place] [address] 52501 -1442 Nov, [facility] [address] 72336- 5896 Nov, [facility] [id number] [place] [address] 90085- 0610 Nov, [facility] [address] 87889- 4354 Nov, [facility] [id number] [place] [address] 64437- 4902 22 Nov, 2016 [facility] [id number] [place] [address] 57070- 9166 21 Nov, 2016 [facility] [id number] [place] [address] 16661- 8366 19 Nov, 2016 Rash R21 [facility] [address] 26761 -6396 18 Nov, 2016 Abnormal stools R19.5 [facility] [address] 21867 -6430 13 Nov, 2016 Rash R21 [facility] [address] [id number] Sep, Dental examination Z01.20 [facility] [id number] [place] [address] 17100 -1895 Sep, Acute back pain M54.9 [facility] [id number] [place] [address] 35418- 0391 Aug, [facility] [id number] [place] [address] 60397- 9476 Aug, [facility] [id number] [place] [address] 71044 -4443 Aug, Cough R05 and Community acquired pneumonia J18.9 [facility] [id number] [place] [address] [id number] Jun, Dental examination Z01.20 [facility] [address] 65520 -5129 16 May, 2016 Allergic contact dermatitis, unspecified trigger L23.9 [facility] [id number] [place] [address] 16354- 7332 10 Apr, 2016 [facility] [address] 45411- 4417 Mar, Skin sore L98.9 [facility] [address] [facility] [id number] [address] Mar, Constipation, unspecified constipation type K59.00 [facility] [address] [facility] [id number] [address]88 Feb, Skin sore L98.9 ; Excoriation (skin-picking) disorder F42.4 and HIV antibody positive Z21 [facility] [address] [facility] [id number]- 1607 Feb, Routine health maintenance Z00.00 ; Family history of diabetes mellitus Z83.3 ; HIV antibody positive Z21 ; 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 ; Tobacco abuse Z72.0 ; Tobacco abuse counseling Z71.6 ; Restless legs syndrome G25.81 ; Generalized headaches R51 ; History of gastric bypass Z98.890 ; History of KS (myocardial infarction) I25.2 ; Pacemaker Z95.0 and Left hip pain M25.552 [facility] [address] [facility] [id number] [id number] Jan, Encounter for dental examination and cleaning without abnormal findings Z01.20 IMMUNIZATIONS No Known Immunizations SOCIAL HISTORY Never Assessed REASON FOR VISIT PLAN OF CARE VITAL SIGNS MEDICATIONS Unknown [...] Surgical History hernia repair Hospitalization History in [place] Dec 2015 Hospitalization History inpatient [place]-unsure date Hospitalization History [facility] ED visit, uti 08/28/2017
--- NOTE | 2017-10-06 17:28 | ED General ---
General Stated Complaint: POSS REACTION TO PESTICIDES/LETHARGIC Source of Information: Patient Exam Limitations: No Limitations History of Present Illness Date Seen by Provider: Oct 06, 2017 Time Seen by Provider: 17:15 Initial Comments Here with report of bugs all over her. This is the third evaluation for this in the last week. She is also been seen at her primary care clinic and with Dr. Prabhakar's clinic. She reports that she has bugs in her hair and on her skin. She reports that she is pooping bugs as well. She states that no doctors are taking care of her and she points to her scan now and states that there is bugs all over her. She reports being on a variety of meds for this. Timing/Duration: Changing Over Time, Getting Worse, Other (weeks) Severity: Moderate Associated Systoms: No Fever/Chills, No Nausea/Vomiting, No Weakness Allergies and Home Medications Allergies Coded Allergies: No Known Drug Allergies (Unverified , 03/10/16) Home Medications Atazanavir Sulfate/Cobicistat 1 Each Tablet, 1 EACH PO DAILY, (Reported) Cephalexin 500 Mg Capsule, 500 MG PO TID Prescribed by: CATHY MATHIS on 09/09/172044 Emtricitabine/Tenofov Alafenam 1 Each Tablet, 1 EACH PO DAILY, (Reported) Hydrocodone/Acetaminophen 1 Each Tablet, 1 EACH PO Q4H PRN for PAIN-MODERATE TO SEVERE Do not fill unless bactrim ds is also filled. Prescribed by: SHILOH JIM on 06/24/17 162 Levothyroxine Sodium 50 Mcg Tablet, 50 MCG PO DAILY, (Reported) Omeprazole 40 Mg Capsule.dr, 40 MG PO DAILY, (Reported) Paliperidone 6 Mg Tab.er.24, 6 MG PO DAILY, (Reported) Polyethylene Glycol 3350 17 Gm Powd.pack, 17 GM PO BID Prescribed by: SHILOH JIM on 10/02/17 2210 Ropinirole HCl 1 Mg Tablet, 1 MG PO HS, (Reported) Sulfamethoxazole/Trimethoprim 1 Each Tablet, 1 EACH PO BID Prescribed by: SHILOH JIM on 06/24/17 1623 Temazepam 30 Mg Capsule, 30 MG PO HS, (Reported) Patient Home Medication List Home Medication List Reviewed: Yes Review of Systems Constitutional: see HPI; No chills, No fever Gastrointestinal: see HPI; No abdominal pain Skin: see HPI, lesions, pruritus Psychiatric/Neurological: Anxiety, Emotional Problems Past Kxupmpb-Cdpwie-Zsfnrp Hx Past Med/Social Hx: Reviewed Nursing Past Med/Soc Hx Patient Social History Drug of Choice: meth, cannibus Smoking Status: Former Smoker Type Used: Cigarettes Former Smoker, Quit: August 05, 2017 2nd Hand Smoke Exposure: No Recent Foreign Travel: No Contact w/Someone Who Travel: No Recent Hopitalizations: No Immunizations Up To Date Tetanus Booster (TDap): Unknown Date of Influenza Vaccine: Jan 04, 2017 Seasonal Allergies Seasonal Allergies: No Past Medical History Surgeries: Yes (GASTRIC BYPASS, ABDOMINOPLASTY; HERNIA REPAIR) Abdominal, Adenoidectomy, Section, Gallbladder, Orthopedic, Pacemaker, Tonsillectomy Respiratory: Yes COPD Cardiac: Yes (PACEMAKER FOR BRADYCARDIA) Neurological: Yes Vertigo Reproductive Disorders: No HIV/AIDS: Yes Genitourinary: Yes Kidney Infection Gastrointestinal: Yes Gastroesophageal Reflux, Chronic Constipation, Ulcer Musculoskeletal: No Endocrine: No HEENT: No Cancer: No Psychosocial: Yes ADD/ADHD, Anxiety, PTSD, Bipolar, Depression Integumentary: No Blood Disorders: Yes (hiv POS) Adverse Reaction/Blood Tranf: No Family Medical History Reviewed Nursing Family Hx No Pertinent Family Hx Physical Exam Vital Signs Capillary Refill : Height, Weight, BMI Height: 5'6.00" Weight: 190lbs. 0.0oz. 86.017538zn; 31.0 BMI Method:Estimated General Appearance: WD/WN, Anxious Neurologic/Psychiatric: Alert, Oriented x3 Skin: Normal Color, Warm/Dry Progress/Results/Core Measures Suspected Sepsis SIRS Temperature: Pulse: Respiratory Rate: Blood Pressure / Mean: Results/Orders Vital Signs/I&O Capillary Refill : Progress Note : Progress Note Seen and evaluated. Prior to completion of evaluation. Patient got very upset and stated she was going to leave. I did offer several times to continue the evaluation and workup for which she declined and left prior to finishing the workup for prior to discharge instructions. Her concern was that no doctors believed her but she did not allow me to complete exam or evaluation. Departure Impression Primary Impression: Pruritus Disposition: 07 AGAINST MEDICAL ADVICE Condition: Stable/Unchanged Departure-Patient Inst. Decision time for Depature: 17:20 Referrals: [facility] (PCP) Primary Care Physician MICHAEL MENJIVAR APRN (Family) Primary Care Physician Patient Instructions: Itchy Skin Add. Discharge Instructions: Patient left prior to discharge instructions or complete evaluation AGAINST MEDICAL ADVICE ALEKSANDAR REINOSO MD Oct 06, 2017 17:28
== END 2017-10-06 17:19 | disposition left against medical advice (07) ==
LOC: EDUNIT# 17:00 → ER 17:01
DX: L29.9 Pruritus, unspecified (principal); J44.9 Chronic obstructive pulmonary disease, unspecified; F90.9 Attention-deficit hyperactivity disorder, unspecified type; F41.9 Anxiety disorder, unspecified; F43.10 Post-traumatic stress disorder, unspecified; F31.9 Bipolar disorder, unspecified; K21.9 Gastro-esophageal reflux disease without esophagitis; Z87.19 Personal history of other diseases of the digestive system; Z98.890 Other specified postprocedural states; Z90.89 Acquired absence of other organs; Z95.0 Presence of cardiac pacemaker; Z87.448 Personal history of other diseases of urinary system; Z98.84 Bariatric surgery status; Z87.891 Personal history of nicotine dependence
CPT/HCPCS: 99281

== ENCOUNTER 2017-12-03 09:15 | Outpatient (RCR) | payer MEDICARE, MEDICAID ==
[~2017-12-03 09:15] MED LIST changes: +HYDR-4226 PO; -HYDR-757 PO
== END 2017-12-12 13:45 | disposition home or self-care (01) ==
PROVIDERS: ATTEND Nurse Practitioner Family
DX: M54.41 Lumbago with sciatica, right side (principal)

== ENCOUNTER → 2017-12-08 | Outpatient (CLI) | payer MEDICARE, MEDICAID ==
--- NOTE | 2017-12-08 09:27 | Diagnostic Imaging Report ---
PROCEDURE: CT abdomen and pelvis with contrast. TECHNIQUE: Multiple contiguous axial images were obtained through the abdomen and pelvis after administration of intravenous contrast. INDICATION: Pain. Exam compared 10/02/2017. FINDINGS: The lung bases were clear, gallbladder absent, no pathological biliary ductal dilatation. The liver appeared normal. The spleen unremarkable the adrenals are negative. There are postsurgical changes of the gastric bypass without evidence for proximal or distal anastomotic leak or obstruction. There is no ascites, abscess, hematoma or fluid collection. The uterus, adnexa and urinary bladder unremarkable. There is no appendicitis or diverticulitis. Unobstructed kidneys appeared normal. There is no mesenteric or retroperitoneal adenopathy. No pneumatosis or free gas. IMPRESSION: Stable abdominal pelvic CT, postsurgical residua with no acute-appearing abnormality, inflammatory process, mass or fluid collection. Dictated by: Dictated on workstation # [id number]
== END ==
LOC: RAD 08:32
PROVIDERS: ATTEND Nurse Practitioner Family
DX: R10.9 Unspecified abdominal pain (principal); Z90.49 Acquired absence of other specified parts of digestive tract
CPT/HCPCS: 74177

== ENCOUNTER → 2018-04-21 | Outpatient (CLI) | payer MEDICARE, MEDICAID | LOC: LAB 08:36 | PROVIDERS: ATTEND Physician Assistant Medical | DX: Z86.19 Personal history of other infectious and parasitic diseases (principal) | CPT/HCPCS: 87328; 87329 ==

== ENCOUNTER → 2018-06-02 | Outpatient (CLI) | payer MEDICARE, MEDICAID ==
--- NOTE | 2018-06-02 11:14 | Diagnostic Imaging Report ---
PROCEDURE: CT pelvis without contrast. TECHNIQUE: Multiple contiguous axial images were obtained through the pelvis without the use of intravenous contrast. Sagittal and coronal reformations were performed. INDICATION: Pelvic pain. FINDINGS: The bowel gas pattern is nonspecific. The bladder is normal in appearance. The uterus is normal. There is no pelvic mass or adenopathy. There is no ascites. There is no free air. There are no focal inflammatory changes. Bony pelvis is intact. SI joints are normal in appearance. Proximal femurs are unremarkable. IMPRESSION: Unremarkable noncontrast CT pelvis. Dictated by: Dictated on workstation # [id number]
== END ==
LOC: RAD 10:06
PROVIDERS: ATTEND Nurse Practitioner Community Health
DX: N39.3 Stress incontinence (female) (male) (principal)
CPT/HCPCS: 72192

== ENCOUNTER 2018-11-11 14:26 | Inpatient (IN) | payer MEDICARE, MEDICAID ==
[~2018-11-11] VITALS: Ht 162.6 cm; Wt 92.1 kg
[2018-11-11] MEDS ORDERED: NS IV 1000 ML 1,000 ML IV SCH (14:52)
[2018-11-11] MEDS ORDERED: ONDANSETRON 4 MG (ZOFRAN) ORAL DISSOLVE TAB PO PRN (15:00)
[2018-11-11] MEDS ORDERED: VANCOMYCIN INJECTION 0.1 MG in NS (IVPB) 250 ML IV SCH (15:00)
[2018-11-11] MEDS ORDERED: IBUPROFEN TABLET 200 MG TAB PO PRN (15:00)
[2018-11-11] MEDS ORDERED: ACETAMINOPHEN 500 MG TAB (TYLENOL) PO PRN (15:00)
[2018-11-11] MEDS ORDERED: NS IV 1000 ML 2,449.41 ML IV ONE (15:00)
[2018-11-11] MEDS ORDERED: CALCIUM CARBONATE 500 MG (TUMS) TAB.CHEW PO PRN (15:00)
[2018-11-11] MEDS ORDERED: fentaNYL INJECTION 100 MCG/2 ML AMP IVP PRN (15:00)
[2018-11-11] MEDS ORDERED: LOPERAMIDE 2 MG (IMODIUM) TABLET PO PRN (15:00)
[2018-11-11] MEDS ORDERED: MELATONIN 3 MG TABLET PO PRN (15:00)
[2018-11-11 16:00] VITALS: BP 100/68
[2018-11-11] MEDS ORDERED: BICT1TAB PO (16:07)
[2018-11-11] MEDS ORDERED: ESTR1TAB14 PO (16:07)
[2018-11-11] MEDS ORDERED: PLEC3TAB PO (16:07)
[2018-11-11] MEDS ORDERED: MELO15TA39 PO (16:07)
[2018-11-11] MEDS ORDERED: VARE1TAB22 PO (16:07)
[2018-11-11] MEDS ORDERED: DULO60CA59 PO (16:07)
[2018-11-11] MEDS ORDERED: PSYL174P2 PO (16:19)
[2018-11-11] MEDS ORDERED: DOXY100C2 PO (16:19)
[2018-11-11] MEDS ORDERED: CYCL10TA9 PO ×2 (16:19)
[2018-11-11] MEDS ORDERED: ESTR42.511 TOP (16:19)
[2018-11-11] MEDS ORDERED: CHOL10003 PO (16:23)
[2018-11-11] MEDS ORDERED: MULT1TAB69 PO (16:23)
--- NOTE | 2018-11-11 16:25 | Diagnostic Imaging Report ---
EXAMINATION: Chest, one view. HISTORY: Fever. COMPARISON: 10/02/2017. FINDINGS: Left subclavian pacemaker is present with leads in the right atrium and right ventricle. The lungs are clear. No edema. No pneumonia. No pleural effusion. No pneumothorax. Heart is normal in size. IMPRESSION: Clear lungs. Dictated by: Dictated on workstation # [id number]
[2018-11-11 16:26] LABS: BASOPHILS % (AUTO) 0 % (0-10); EOSINOPHILS # (AUTO) 0.1 10^3/uL (0.0-0.3); EOSINOPHILS % (AUTO) 2 % (0-10); HEMATOCRIT 41 % (35-52); HEMOGLOBIN 13.5 G/DL (11.5-16.0); LYMPHOCYTES % (AUTO) 17 % (12-44); MEAN CORPUSCULAR HEMOGLOBIN 29 PG (25-34); MEAN CORPUSCULAR HGB CONC 33 G/DL (32-36); MEAN CORPUSCULAR VOLUME 88 FL (80-99); MEAN PLATELET VOLUME 11.3 FL (7.4-10.4); MONOCYTES # (AUTO) 0.6 X 10^3 (0.0-1.0); MONOCYTES % (AUTO) 9 % (0-12); NEUTROPHILS # (AUTO) 4.5 X 10^3 (1.8-7.8); NEUTROPHILS % (AUTO) 72 % (42-75); PLATELET COUNT 237 10^3/uL (130-400); RED CELL DISTRIBUTION WIDTH 15.1 % (10.0-14.5); WHITE BLOOD COUNT 6.2 10^3/uL (4.3-11.0)
[2018-11-11] MEDS ORDERED: UMEC1BLS IH (16:29)
[2018-11-11] MEDS ORDERED: FLUT1BLS13 INH (16:29)
[2018-11-11] MEDS ORDERED: TIOT18CA2 INH (16:29)
--- NOTE | 2018-11-11 16:30 | NUR ---
SPOKE WITH THE PATIENT ABOUT HER MEDICATIONS. WE WENT OVER THE EXT MED HX AND SHE VERIFIED HOW SHE TAKES THEM. SHE STATES SHE USES SPIRIVA, ADVAIR, AND ANORO INHALERS HOWEVER THEY ARE PAST DUE FOR REFILL ACCORDING TO THE EXT MED HX AND [facility]. SHE STATES SHE MAY GET SAMPLES SOMETIMES. I NOTED THE PAST DUE FILL DATES ON THE MED REC: [facility]: APR 2018 ANORO [facility]: 09-02-18 SPIRIVA HANDIHALER #60 09-02-18 ADVAIR #60 SHE TAKES THE FOLLOWING OTC: MTV DAILY VITAMIN D DAILY METAMUCIL 1-2 TBSP BID SHE FILLED CHANTIX RECENTLY BUT STATES SHE IS NO LONGER TAKING IT, SHE HAS STOPPED SMOKING. SHE STATES SHE TAKES SOMETHING THAT SHE FILLED AT [facility] FOR GAS AND BLOATING. SHE THINKS IT IS THE MELOXICAM HOWEVER AFTER I EXPLAINED MELOXICAM IN AN ANTI INFLAMMATORY SHE STATES SHE IS NO SURE WHY SHE IS TAKING THAT, SHE THOUGHT IT WAS FOR GAS. I CALLED DILL[facility] WHO STATES SIMETHICONE 80MG CHEWS WERE CALLED [facility] PRN 09-28-18 HOWEVER WAS NOT PICKED UP BECAUSE IT WAS NOT COVERED ON INSURANCE.
[2018-11-11] MEDS: MEROPENEM 500 MG in WATER (STERILE) FOR INJECTION 10 ML IV SCH ×2 (16:38→20:27)
[2018-11-11] MEDS: HYDROcodone/APAP 5 MG/325 MG (LORTAB) TAB PO PRN ×2 (16:39→21:20)
[2018-11-11] MEDS ORDERED: VANCOMYCIN 1500 MG/NS 500 ML IVPB IV NR ×2 (16:45)
[2018-11-11 16:48] LABS: ALANINE AMINOTRANSFERASE 17 U/L (0-55); ALKALINE PHOSPHATASE 95 U/L (40-136); BILIRUBIN,TOTAL 0.2 MG/DL (0.1-1.0); BUN/CREATININE RATIO 19; CALCIUM 8.9 MG/DL (8.5-10.1); CARBON DIOXIDE 23 MMOL/L (21-32); CHLORIDE 110 MMOL/L (98-107); CREATININE SERUM 0.78 MG/DL (0.60-1.30); GFR ESTIMATED > 60; GLUCOSE 83 MG/DL (70-105); POTASSIUM 4.3 MMOL/L (3.6-5.0); SODIUM 140 MMOL/L (135-145); TOTAL PROTEIN 6.6 GM/DL (6.4-8.2)
[2018-11-11 17:00] VITALS: BP 98/52
--- NOTE | 2018-11-11 17:00 | NUR ---
THIS RN CALLED DR MITCHELL AND NOTIFIED HER OF PT LABS AND TO SEE IF IVF BOLUS OF 30ML/KG SHOULD BE CONTINUED, DR MITCHELL ORDERED TO CHANGE IVF RATE TO 100MLS/HR.
[2018-11-11] MEDS: NOREPINEPHRINE 4 MG in NS (IVPB) 250 ML IV SCH ×2 (17:03→20:32)
[2018-11-11] MEDS: NS IV 1000 ML 1,000 ML IV SCH (17:06)
[2018-11-11 17:11] LABS: ABG BASE EXCESS -1.3 MMOL/L (-2.5-2.5); ABG OXYGEN SATURATION 94 % (94-100); ABG PCO2 36 MMHG (35-45); ABG PH 7.42 (7.37-7.43); ABG PO2 74 MMHG (79-93); ABG TCO2 23.9 MMOL/L (21.0-31.0)
[2018-11-11 17:12] LABS: ALLENS TEST POS; INSPIRED O2 ROOM AIR; PATIENT TEMP 97.1; VENTILATOR NO
[2018-11-11] MEDS ORDERED: HOLD METFORMIN - RECEIVED CONTRAST 20 ML VIAL IV SCH (17:30)
[2018-11-11] MEDS ORDERED: IOHEXOL 350 MG/ML 100 ML (OMNIPAQUE 350) VIAL IV ONE (17:30)
[2018-11-11] MEDS ORDERED: NS 100 ML (IVPB) BAG IV ONE (17:30)
[2018-11-11 17:42] VITALS: BP 98/52
[2018-11-11] MEDS ORDERED: RT-ALBUTEROL/IPRATROPIUM 3 ML (DUONEB) VIAL INH PRN (17:45)
[2018-11-11] MEDS: methylPREDNISolone 40 MG/ML (Solu-MEDROL) VIAL IV SCH (17:57)
[2018-11-11 18:00] VITALS: BP 86/70
--- NOTE | 2018-11-11 18:04 | History & Physical-Hospitalist ---
History of Present Illness HPI/Chief Complaint Chief complaint: Productive cough with hypoxia and shortness of breath History of present illness: This is a 47-year-old white female clinic patient of [facility] with a history of HIV with CD4 count greater than 250 on last check who sees Dr. Prabhakar on a regular basis who presents to Dr. Manjula Alves at clinic today after discharge from [facility] for pneumonia 1 month ago with shortness of breath cough and worsening symptoms. She was found to have severe rales and rhonchi and in need of hospitalization. I did speak to Dr. Louis who will plan on doing bronchoscopy if needed. CT scan of the chest will be performed also. She reports that she is always felt like she has bronchitis and the phlegm is too thick to cough up. She reports that after she gets off medication for pneumonia she feels like she never really gets rid of it. She is a former smoker quit several years ago and understands that she has lung problems but she does not feel like she really ever gets rid of upper respiratory illnesses. Her viral load was undetectable in the last lab check. She had subjective fever at home also. At [facility] she was diagnosed with rhinovirus and COPD exacerbation. Chest x-ray was negative along with lactic acid so she will be given gentle IV fluids IV steroids and meropenem and vancomycin and CT scan will be reviewed and bronchoscopy will be performed. Source: patient, RN/MD Exam Limitations: no limitations Date Seen 11/11/18 Time Seen by a Provider: 17:20 Attending Physician Melia Mitchell DO [facility] Referring Physician Date of Admission Nov 11, 2018 at 15:39 Home Medications & Allergies Home Medications Reviewed patient Home Medication Reconciliation performed by pharmacy medication reconciliations photo equipment technician and/or nursing. Patients Allergies have been reviewed. Allergies Allergies Coded Allergies No Known Drug Allergies ([id number]/25/16) Past Hrowulw-Bjiitv-Qxqrns Hx Past Med/Social Hx: Reviewed Nursing Past Med/Soc Hx, Reviewed and Corrections made Patient Social History Marrital Status: single Alcohol Use: Denies Use Recreational Drug Use: No Drug of Choice: meth, cannibus Smoking Status: Former Smoker Former Smoker, Quit: Oct 28, 2018 Type Used: Cigarettes 2nd Hand Smoke Exposure: No Physical Abuse Screen: No Sexual Abuse: No Recent Foreign Travel: No Contact w/other who traveled: No Recent Hopitalizations: No Immunizations Up To Date Tetanus Booster (TDap): Unknown Date of Pneumonia Vaccine: Jan 28, 2018 Date of Influenza Vaccine: Jan 04, 2017 Seasonal Allergies Seasonal Allergies: No Past Medical History Surgeries: Abdominal, Adenoidectomy, Section, Gallbladder, Orthopedic, Pacemaker, Tonsillectomy Currently Using CPAP: No Neurological: Vertigo Reproductive: No HIV/AIDS: Yes Genitourinary: Kidney Infection, Kidney Stones Gastrointestinal: Gastroesophageal Reflux, Chronic Constipation, Hiatal Hernia, Ulcer, Gall Bladder Disease Psychosocial: ADD/ADHD, Anxiety, PTSD, Bipolar, Depression History of Blood Disorders: Yes (hiv POS) Adverse Reaction to Blood Agudelo: No HIV Family History No Pertinent Family Hx Review of Systems Constitutional: see HPI, fever, malaise, weakness Respiratory: cough, phlegm, short of breath, wheezing Physical Exam Physical Exam Vital Signs Vital Signs - First Documented 11/11/18 11/11/18 11/11/18 15:50 15:54 16:00 Temp 97.5 Pulse 86 Resp 11 B/P (MAP) 100/68 (79) Pulse Ox 97 O2 Delivery Room Air Capillary Refill : Height, Weight, BMI Height: 5'4.00" Weight: 189lbs. 1.0oz. 85.320116fu; 32.5 BMI Method:Stated General Appearance: No Apparent Distress, WD/WN, Chronically ill Eyes: Right Eye Normal Inspection, Right Eye PERRL HEENT: PERRL/EOMI, Normal ENT Inspection, Pharynx Normal, Moist Mucous Membranes Neck: Full Range of Motion, Normal Inspection, Non Tender Respiratory: Chest Non Tender, No Accessory Muscle Use, No Respiratory Distress, Crackles, Decreased Breath Sounds, Rhonci, Wheezing Cardiovascular: Regular Rate, Rhythm, No Edema, No Gallop, No JVD, No Murmur, Normal Peripheral Pulses Gastrointestinal: Normal Bowel Sounds, No Organomegaly, No Pulsatile Mass, Non Tender, Soft Back: Normal Inspection, No CVA Tenderness, No Vertebral Tenderness Extremity: Normal Capillary Refill, Normal Inspection, Normal Range of Motion, Non Tender, No Calf Tenderness, No Pedal Edema Neurologic/Psychiatric: Alert, Oriented x3, No Motor/Sensory Deficits, Normal Mood/Affect Skin: Normal Color, Warm/Dry Lymphatic: No Adenopathy Results Results/Procedures Labs Laboratory Tests 11/11/18 16:16 Patient resulted labs reviewed. Assessment/Plan Admission Diagnosis Assessment: Recurrent bacterial bronchitis with thickened sputum in need of CT chest and bronchoscopy HIV Former smoker COPD Plan: Bronch CT Abx IVF Admission Status: Inpatient Order (span 2 midnights) Reason for Inpatient Admission: Severe resp illnes with HIV will need 3 days Diagnosis/Problems Diagnosis/Problems (1) Acute bronchitis, bacterial Status: Acute (2) HIV (human immunodeficiency virus infection) Status: Chronic Qualifiers: HIV symptom status: asymptomatic Qualified Codes: Z21 - Asymptomatic human immunodeficiency virus [hiv] infection status (3) COPD (chronic obstructive pulmonary disease) Status: Chronic Qualifiers: COPD type: chronic bronchitis Chronic bronchitis type: mixed simple and mucopurulent Qualified Codes: J41.8 - Mixed simple and mucopurulent chronic bronchitis (4) Former smoker Status: Chronic (5) Wheezing Status: Acute MELIA MITCHELL DO Nov 11, 2018 18:03
--- NOTE | 2018-11-11 18:05 | Diagnostic Imaging Report ---
PROCEDURE: CT angiography of the chest with contrast. TECHNIQUE: Multiple contiguous axial images were obtained through the chest after uneventful bolus administration of intravenous contrast. 3D reconstructed CTA MIP acquisitions were also performed. Auto Exposure Controls were utilized during the CT exam to meet ALARA standards for radiation dose reduction. INDICATION: Anterior chest pain with fever. COMPARISON: None available. FINDINGS: Vasculature: No pulmonary emboli. No CT evidence of pulmonary hypertension or right ventricular strain. Thoracic aorta is normal in caliber. No aortic dissection or pseudoaneurysm. Heart and mediastinum: Visualized thyroid is normal. No supraclavicular, axillary, or intra-thoracic lymphadenopathy. The heart is normal in size without pericardial effusion. Pleura: No pleural effusion or pneumothorax. Lungs and airway: No endoluminal nodule within the trachea. Multifocal mucous plugging and peribronchial thickening within the bilateral lower lobes. No consolidation or mass. No concerning pulmonary nodule. Upper abdomen: Allowing for the phase of contrast, no acute abnormality in the upper abdomen is seen. Cholecystectomy. Musculoskeletal: No concerning osseous lesion. IMPRESSION: 1. No pulmonary emboli or acute aortic syndrome. 2. Scattered mucous plugging and peribronchial wall thickening in the bilateral lower lobes may relate to a bronchitis. No consolidations to indicate pneumonia. Dictated by: Dictated on workstation # [id number]
[2018-11-11 19:00] VITALS: BP 113/67
[2018-11-11] MEDS: SENNA W/DOCUSATE (SENOKOT S) TABLET PO SCH (20:27)
[2018-11-11 21:10] VITALS: BP 113/67
[2018-11-11] MEDS: TEMAZEPAM 15 MG (RESTORIL) CAP PO SCH (21:20)
[2018-11-12] VITALS: BP 98/42
[2018-11-12] MEDS: methylPREDNISolone 40 MG/ML (Solu-MEDROL) VIAL IV SCH ×4 (00:13→17:29)
[2018-11-12] MEDS: NS IV 1000 ML 1,000 ML IV SCH ×3 (00:17→23:12)
[2018-11-12] MEDS: RT-ALBUTEROL/IPRATROPIUM 3 ML (DUONEB) VIAL INH SCH ×4 (02:31→20:17)
[2018-11-12 02:45] VITALS: BP 103/60
[2018-11-12] MEDS: MEROPENEM 500 MG in WATER (STERILE) FOR INJECTION 10 ML IV SCH ×4 (02:48→20:43)
[2018-11-12 03:38] LABS: BASOPHILS % (AUTO) 0 % (0-10); EOSINOPHILS % (AUTO) 0 % (0-10); HEMATOCRIT 41 % (35-52); HEMOGLOBIN 13.7 G/DL (11.5-16.0); LYMPHOCYTES # (AUTO) 0.7 X 10^3 (1.0-4.0); LYMPHOCYTES % (AUTO) 13 % (12-44); MEAN CORPUSCULAR HEMOGLOBIN 29 PG (25-34); MEAN CORPUSCULAR HGB CONC 33 G/DL (32-36); MEAN CORPUSCULAR VOLUME 88 FL (80-99); MEAN PLATELET VOLUME 11.9 FL (7.4-10.4); MONOCYTES # (AUTO) 0.1 X 10^3 (0.0-1.0); MONOCYTES % (AUTO) 2 % (0-12); NEUTROPHILS # (AUTO) 4.3 X 10^3 (1.8-7.8); NEUTROPHILS % (AUTO) 85 % (42-75); PLATELET COUNT 217 10^3/uL (130-400); RED CELL DISTRIBUTION WIDTH 14.9 % (10.0-14.5)
[2018-11-12 04:00] LABS: ALANINE AMINOTRANSFERASE 16 U/L (0-55); ALBUMIN 4.1 GM/DL (3.2-4.5); ALKALINE PHOSPHATASE 104 U/L (40-136); BILIRUBIN,TOTAL 0.2 MG/DL (0.1-1.0); BUN/CREATININE RATIO 18; CALCIUM 9.4 MG/DL (8.5-10.1); CARBON DIOXIDE 19 MMOL/L (21-32); CHLORIDE 107 MMOL/L (98-107); CREATININE SERUM 0.65 MG/DL (0.60-1.30); GFR ESTIMATED > 60; GLUCOSE 155 MG/DL (70-105); POTASSIUM 3.6 MMOL/L (3.6-5.0); SODIUM 138 MMOL/L (135-145); TOTAL PROTEIN 6.6 GM/DL (6.4-8.2)
[2018-11-12 05:00] VITALS: BP 122/69
[2018-11-12] MEDS: VANCOMYCIN 1250 MG/NS 250 ML IVPB IV SCH ×4 (05:12→17:29)
--- NOTE | 2018-11-12 05:53 | Pulmonary Consultation ---
History of Present Illness History of Present Illness Date of Consultation 11/12/18 05:52 Time Seen by Provider: 07:09 Date of Admission History of Present Illness 47yo with hx of COPD, HIV recently admitted and treated at [facility] for pneumonia 1 month ago presented as direct admit secondary to worsening SOB and productive cough of yellow/green sputum. PT complains of persistent cough and thick mucous production. She states she has been on multiple Abx over the last 3-6 months. She admits to subject fevers. PT was admitted to ICU with Merrem and Vancomycin. Allergies and Home Medications Allergies Coded Allergies: No Known Drug Allergies (Unverified , 03/10/16) Home Medications Bictegrav/Emtricit/Tenofov Ala 1 Each Tablet, 1 TAB PO HS, (Reported) Cholecalciferol (Vitamin D3) 1,000 Unit Tablet, 1,000 UNIT PO DAILY, (Reported) Cyclobenzaprine HCl 10 Mg Tablet, 10 MG PO DAILY, (Reported) Cyclobenzaprine HCl 10 Mg Tablet, 20 MG PO HS, (Reported) TAKES 2 (10MG) TABLETS Doxycycline Hyclate 100 Mg Capsule, 100 MG PO BID, (Reported) Duloxetine HCl 60 Mg Capsule.dr, 60 MG PO DAILY, (Reported) Estradiol 42.5 Gm Cream.appl, TOP DAILY, (Reported) Estrogen,Con/M-Progest Acet 1 Each Tablet, 1 TAB PO DAILY, (Reported) Fluticasone Propion/Salmeterol 1 Each Blst.w.dev, 1 PUFF INH 1200,2100, (Reported) LAST FILLED #60 19 Meloxicam 15 Mg Tablet, 15 MG PO DAILY, (Reported) Multivitamin 1 Each Tablet, 1 TAB PO DAILY, (Reported) Omeprazole 40 Mg Capsule.dr, 40 MG PO DAILY, (Reported) Plecanatide 3 Mg Tablet, 3 MG PO DAILY, (Reported) Psyllium Husk/Aspartame 174 Gm Powder, 1-2 TBS PO BID, (Reported) Temazepam 30 Mg Capsule, 30 MG PO HS, (Reported) Tiotropium Lima 1 Inh Aerp, 1 CAP INH DAILY, (Reported) LAST FILLED #30 09-02-19 Umeclidinium Brm/Vilanterol Tr 1 Each Blst.w.dev, 1 PUFF IH DAILY, (Reported) Past Yphlsaq-Jiuuak-Jqgrdx Hx Past Med/Social Hx: Reviewed Nursing Past Med/Soc Hx, Reviewed and Corrections made Patient Social History Alcohol Use: Denies Use Recreational Drug Use: No Drug of Choice: meth, cannibus Smoking Status: Former Smoker Type Used: Cigarettes Former Smoker, Quit: Oct 28, 2018 2nd Hand Smoke Exposure: No Recent Foreign Travel: No Contact w/Someone Who Travel: No Recent Hopitalizations: No Immunizations Up To Date Tetanus Booster (TDap): Unknown Date of Pneumonia Vaccine: Jan 28, 2018 Date of Influenza Vaccine: Jan 04, 2017 Seasonal Allergies Seasonal Allergies: No Past Medical History Surgeries: Yes (GASTRIC BYPASS, ABDOMINOPLASTY; HERNIA REPAIR) Abdominal, Adenoidectomy, Section, Gallbladder, Orthopedic, Pacemaker, Tonsillectomy Respiratory: Yes COPD Currently Using CPAP: No Cardiac: Yes (PACEMAKER FOR BRADYCARDIA) Neurological: Yes Vertigo : No Reproductive Disorders: No HIV/AIDS: Yes Genitourinary: Yes Kidney Infection, Kidney Stones Gastrointestinal: Yes Gastroesophageal Reflux, Chronic Constipation, Hiatal Hernia, Ulcer, Gall Bladder Disease Musculoskeletal: No Endocrine: No HEENT: No Cancer: No Psychosocial: Yes ADD/ADHD, Anxiety, PTSD, Bipolar, Depression Integumentary: No Blood Disorders: Yes (hiv POS) Adverse Reaction/Blood Tranf: No Family Medical History No Pertinent Family Hx Review of Systems Time Seen by Provider: 07:17 Constitutional: Fever, Chills, Sweats, Weakness, Malaise, Other Eyes: No: Pain, Vision change, Conjunctivae inflammation, Eyelid inflammation, Other, Redness ENT: Nose discharge, Nose congestion; No: Ear pain, Ear discharge, Nose pain, Mouth pain, Mouth swelling, Throat pain, Throat swelling, Other Respiratory: Cough, Shortness of breath, SOB with excertion, Wheezing, Sputum; No: Dry, Hemoptysis, Pleuritic Pain, Wheezing, Other Cardiovascular: Paroxysmal Noc. Dyspnea; No: Chest Pain, Palpitations, Orthopnea, Lt Headedness Gastrointestinal: No: Nausea, Vomiting, Abdominal Pain, Diarrhea, Constipation, Melena, Hematochezia, Other Sepsis Event Evaluation Height, Weight, BMI Height: 5'4.00" Weight: 192lbs. 4.0oz. 87.176681tx; 32.5 BMI Method:Stated Exam Exam Vital Signs Date Time Temp Pulse Resp B/P (MAP) Pulse Ox O2 Delivery O2 Flow Rate FiO2 11/12/18 05:00 98.2 71 16 122/69 (86) 96 Room Air 11/12/18 02:45 98.0 67 20 103/60 (74) 93 Room Air 11/12/18 02:31 93 Room Air 11/12/18 01:00 63 11/12/18 00:00 98.1 60 12 98/42 (60) 95 Room Air 11/11/18 21:41 95 Room Air 11/11/18 21:10 70 95 21 11/11/18 20:00 95 Room Air 11/11/18 19:00 70 11/11/18 19:00 97.4 62 19 113/67 (82) 95 Room Air 11/11/18 18:00 64 12 86/70 (75) 99 Room Air 11/11/18 17:42 60 97 11/11/18 17:00 60 12 98/52 (67) 97 Room Air 11/11/18 16:00 79 11 100/68 (79) 97 Room Air 11/11/18 16:00 Room Air 11/11/18 15:54 86 11/11/18 15:50 97.5 I & O 11/12/18 07:00 Intake Total 2925 ml Balance 2925 ml Height & Weight Height: 5'4.00" Weight: 192lbs. 4.0oz. 87.667524gu; 32.5 BMI Method:Stated General Appearance: No Apparent Distress, WD/WN, Chronically ill HEENT: PERRL/EOMI, Normal ENT Inspection, Pharynx Normal, Moist Mucous Membranes Neck: Full Range of Motion, Normal Inspection, Non Tender Respiratory: Chest Non Tender, No Accessory Muscle Use, No Respiratory Distress, Crackles, Decreased Breath Sounds, Rhonci, Wheezing Cardiovascular: Regular Rate, Rhythm, No Edema, No Gallop, No JVD, No Murmur, Normal Peripheral Pulses Extremity: Normal Capillary Refill, Normal Inspection, Normal Range of Motion, Non Tender, No Calf Tenderness, No Pedal Edema Neurologic/Psychiatric: Alert, Oriented x3, No Motor/Sensory Deficits, Normal Mood/Affect Skin: Normal Color, Warm/Dry Lymphatic: No Adenopathy Results Lab Laboratory Tests 11/11/18 16:16 11/12/18 03:00 Assessment/Plan Assessment/Plan COPDAE -Solumedrol -SVNs -Continue IVF Pneumonia with mucous plugging -CT of chest resolved -Will do bronchoscopy tomorrow morning Metabolic acidosis -IVF HIV hx -Follows with ID Hx of tobacco use TIFFANIE CARDONA DO Nov 12, 2018 05:52
[2018-11-12] MEDS: HYDROcodone/APAP 5 MG/325 MG (LORTAB) TAB PO PRN ×2 (06:13→13:01)
[2018-11-12] MEDS: NOREPINEPHRINE 4 MG in NS (IVPB) 250 ML IV SCH ×3 (06:14→20:44)
[2018-11-12] MEDS: ALPRAZolam 0.25 MG (XANAX) TAB PO PRN ×2 (08:55→20:43)
[2018-11-12] MEDS: DOCUSATE SODIUM 100 MG (COLACE) CAP PO PRN (08:55)
[2018-11-12] MEDS: LORATADINE (CLARITIN) 10 MG TAB PO SCH (08:55)
[2018-11-12] MEDS: SENNA W/DOCUSATE (SENOKOT S) TABLET PO SCH ×2 (08:55→20:44)
--- NOTE | 2018-11-12 10:35 | Progress Note - Hospitalist ---
[facility] 11/12/18 1035: Subjective HPI/CC On Admission Date Seen by Provider: Nov 12, 2018 Time Seen by Provider: 08:35 Chief complaint: Productive cough with hypoxia and shortness of breath History of present illness: This is a 47-year-old white female clinic patient of [facility] with a history of HIV with CD4 count greater than 250 on last check who sees Dr. Prabhakar on a regular basis who presents to Dr. Manjula Alves at clinic today after discharge from [facility] for pneumonia 1 month ago with shortness of breath cough and worsening symptoms. She was found to have severe rales and rhonchi and in need of hospitalization. I did speak to Dr. Louis who will plan on doing bronchoscopy if needed. CT scan of the chest will be performed also. She reports that she is always felt like she has bronchitis and the phlegm is too thick to cough up. She reports that after she gets off medication for pneumonia she feels like she never really gets rid of it. She is a former smoker quit several years ago and understands that she has lung problems but she does not feel like she really ever gets rid of upper respiratory illnesses. Her viral load was undetectable in the last lab check. She had subjective fever at home also. At [facility] she was diagnosed with rhinovirus and COPD exacerbation. Chest x-ray was negative along with lactic acid so she will be given gentle IV fluids IV steroids and meropenem and vancomycin and CT scan will be reviewed and bronchoscopy will be performed. Subjective/Events-last exam Patient is alert and oriented and in no acute distress States her coughing is better but still has phlegm coming up Pt states she is sleeping okay and is eating and drinking Pt is urinating and has yet to have a bowel movement States she is currently going through menopause ROS: patient denied chest, SOB but does have body aches and feels N/V at times . Heart: HRRR Lungs: wheezing and crackles. Vitals: stable Labs: stable Imaging: showed scattered mucous plugging Plan: Have Dr. Louis follow up, possible bronchoscopy and biopsy Focused Exam Lactate Level 11/11/18 16:16: Lactic Acid Level 1.12 Respiratory: Chest Non Tender, No Accessory Muscle Use, No Respiratory Distress, Crackles, Wheezing Cardiovascular: Regular Rate, Rhythm, No JVD Objective Exam Vital Signs Vital Signs Date Time Temp Pulse Resp B/P (MAP) Pulse Ox O2 Delivery O2 Flow Rate FiO2 11/12/18 10:00 93 93 Room Air 11/12/18 08:00 20 11/12/18 05:00 98.2 122/69 (86) 11/11/18 21:10 21 Capillary Refill : General Appearance: No Apparent Distress Respiratory: Chest Non Tender, No Accessory Muscle Use, No Respiratory Distress, Crackles, Wheezing Cardiovascular: Regular Rate, Rhythm, No JVD Results/Procedures Lab Laboratory Tests 11/11/18 16:16 11/12/18 03:00 Patient resulted labs reviewed. Assessment/Plan Assessment and Plan Assess & Plan/Chief Complaint Assessment: 1. Recurrent bacterial bronchitis with thickened sputum in need of CT chest and bronchoscopy 2. HIV 3. Former smoker 4. COPD Plan: 1. Bronchoscopy 2. Continue Abx regimen 3. IVF Clinical Quality Measures DVT/VTE Risk/Contraindication: Risk Factor Score Per Nursin RFS Level Per Nursing on Admit: 2=Moderate MELIA MITCHELL DO 11/12/182144: Subjective Subjective/Events-last exam Pt doing better. Still short of breath. Mucous plugging confirmed on CT scan. Dr. Louis will perform bronchoscopy tomorrow. Meropenem and Vanc maintained. IV steroids tolerated. Restarted home meds yesterday. Review of Systems Pulmonary: Dyspnea, Cough Objective Exam General Appearance: No Apparent Distress, WD/WN Respiratory: Crackles, Wheezing Neurologic/Psychiatric: Alert, Oriented x3, No Motor/Sensory Deficits, Normal Mood/Affect Assessment/Plan Assessment and Plan Assess & Plan/Chief Complaint Recurrent bacterial bronchitis with mucous plugging Bronch tomorrow Diagnosis/Problems Diagnosis/Problems (1) Acute bronchitis, bacterial Status: Acute (2) Wheezing Status: Acute (3) COPD (chronic obstructive pulmonary disease) Status: Chronic Qualifiers: Qualified Codes: J41.8 - Mixed simple and mucopurulent chronic bronchitis (4) HIV (human immunodeficiency virus infection) Status: Chronic Qualifiers: Qualified Codes: Z21 - Asymptomatic human immunodeficiency virus [hiv] infection status (5) Former smoker Status: Chronic Supervisory-Addendum Brief Verification & Attestation Participated in pt care: history, MDM, physical Personally performed: exam, history, MDM, supervision of care Care discussed with: Medical Student Procedures: n/a Results interpretation: Verified all documentation Verification and Attestation of Medical Student E/M Service A medical student performed and documented this service in my presence. I reviewed and verified all information documented by the medical student and made modifications to such information, when appropriate. I personally performed the physical exam and medical decision making. Melia Mitchell, Nov 12, 2018,21:45 [facility] Nov 12, 2018 10:35 MELIA MITCHELL DO Nov 12, 2018 21:45
[2018-11-12 12:00] VITALS: BP 132/94
[2018-11-12 19:00] VITALS: BP 114/59
[2018-11-12] MEDS: TEMAZEPAM 15 MG (RESTORIL) CAP PO SCH (20:43)
[2018-11-12] MEDS: MONTELUKAST 10 MG (SINGULAIR) TAB PO SCH (20:43)
[2018-11-12] MEDS: diphenhydrAMINE 25 MG TAB (BENADRYL) PO PRN (20:43)
[2018-11-12 23:20] VITALS: BP 102/59
[2018-11-13] MEDS: methylPREDNISolone 40 MG/ML (Solu-MEDROL) VIAL IV SCH ×5 (00:04→22:51)
[2018-11-13] MEDS: RT-ALBUTEROL/IPRATROPIUM 3 ML (DUONEB) VIAL INH SCH ×4 (02:42→20:09)
[2018-11-13 03:20] VITALS: BP 97/56
[2018-11-13] MEDS: MEROPENEM 500 MG in WATER (STERILE) FOR INJECTION 10 ML IV SCH ×4 (03:20→20:54)
[2018-11-13] MEDS ORDERED: TROUGH ORDER-PHARMACY XX NR (04:00)
[2018-11-13 04:12] LABS: BASOPHILS % (AUTO) 0 % (0-10); EOSINOPHILS % (AUTO) 0 % (0-10); HEMATOCRIT 41 % (35-52); HEMOGLOBIN 13.6 G/DL (11.5-16.0); LYMPHOCYTES # (AUTO) 0.6 X 10^3 (1.0-4.0); LYMPHOCYTES % (AUTO) 3 % (12-44); MEAN CORPUSCULAR HEMOGLOBIN 30 PG (25-34); MEAN CORPUSCULAR HGB CONC 33 G/DL (32-36); MEAN CORPUSCULAR VOLUME 89 FL (80-99); MONOCYTES # (AUTO) 0.5 X 10^3 (0.0-1.0); MONOCYTES % (AUTO) 3 % (0-12); NEUTROPHILS # (AUTO) 17.4 X 10^3 (1.8-7.8); NEUTROPHILS % (AUTO) 94 % (42-75); PLATELET COUNT 238 10^3/uL (130-400); RED CELL DISTRIBUTION WIDTH 15.3 % (10.0-14.5); WHITE BLOOD COUNT 18.5 10^3/uL (4.3-11.0)
[2018-11-13 04:33] LABS: ALANINE AMINOTRANSFERASE 15 U/L (0-55); ALKALINE PHOSPHATASE 84 U/L (40-136); BILIRUBIN,TOTAL 0.2 MG/DL (0.1-1.0); BUN/CREATININE RATIO 18; CALCIUM 9.4 MG/DL (8.5-10.1); CARBON DIOXIDE 17 MMOL/L (21-32); CHLORIDE 108 MMOL/L (98-107); CREATININE SERUM 0.65 MG/DL (0.60-1.30); GFR ESTIMATED > 60; GLUCOSE 148 MG/DL (70-105); POTASSIUM 4.1 MMOL/L (3.6-5.0); SODIUM 142 MMOL/L (135-145); TOTAL PROTEIN 6.4 GM/DL (6.4-8.2)
--- NOTE | 2018-11-13 04:48 | Pulmonary Progress Note ---
Subjective Time Seen by a Provider: 05:29 Subjective/Events-last exam Pt complains of persistent coughing, and SOB. Sepsis Event Evaluation Height, Weight, BMI Height: 5'4.00" Weight: 192lbs. 4.0oz. 87.732146fr; 32.5 BMI Method:Stated Focused Exam Lactate Level 11/11/18 16:16: Lactic Acid Level 1.12 Exam Exam Vital Signs Date Time Temp Pulse Resp B/P (MAP) Pulse Ox O2 Delivery O2 Flow Rate FiO2 11/13/18 03:20 97.4 65 15 97/56 (70) 95 Room Air 11/13/18 02:42 95 Room Air 11/13/18 00:56 60 11/12/18 23:20 97.9 79 14 102/59 (73) 94 Room Air 11/12/18 20:17 97 Room Air 11/12/18 20:00 93 Room Air 11/12/18 19:00 98.1 67 16 114/59 (77) 93 Room Air 11/12/18 19:00 78 11/12/18 16:00 88 12 11/12/18 16:00 98.2 11/12/18 14:42 94 Room Air 11/12/18 13:00 83 11/12/18 12:00 97.4 19 132/94 (107) 11/12/18 10:00 93 93 Room Air 11/12/18 09:00 95 Room Air 11/12/18 08:04 97 Room Air 11/12/18 08:00 90 20 93 Room Air 11/12/18 07:00 60 12 93 Room Air 11/12/18 07:00 70 11/12/18 05:00 98.2 71 16 122/69 (86) 96 Room Air I & O 11/13/18 07:00 Intake Total 2925.5 ml Balance 2925.5 ml Height & Weight Height: 5'4.00" Weight: 192lbs. 4.0oz. 87.770699gx; 32.5 BMI Method:Stated General Appearance: No Apparent Distress, WD/WN HEENT: PERRL/EOMI, Normal ENT Inspection, Pharynx Normal, Moist Mucous Membranes Neck: Full Range of Motion, Normal Inspection, Non Tender Respiratory: Crackles, Wheezing Cardiovascular: Regular Rate, Rhythm, No JVD Extremity: Normal Capillary Refill, Normal Inspection, Normal Range of Motion, Non Tender, No Calf Tenderness, No Pedal Edema Neurologic/Psychiatric: Alert, Oriented x3, No Motor/Sensory Deficits, Normal Mood/Affect Skin: Normal Color, Warm/Dry Lymphatic: No Adenopathy Results Lab Laboratory Tests 11/11/18 16:16 11/12/18 03:00 11/13/18 03:34 Assessment/Plan Assessment/Plan COPDAE -Solumedrol -SVNs -Continue IVF Pneumonia with mucous plugging -CT of chest - reviewed -Will do bronchoscopy today Metabolic acidosis -IVF HIV hx -Follows with ID Hx of tobacco use TIFFANIE CARDONA DO Nov 13, 2018 04:48
[2018-11-13 05:02] LABS: MAGNESIUM 1.8 MG/DL (1.6-2.4); PHOSPHORUS 3.3 MG/DL (2.3-4.7)
[2018-11-13] MEDS: VANCOMYCIN 1250 MG/NS 250 ML IVPB IV SCH ×4 (05:21→17:47)
[2018-11-13] MEDS: NOREPINEPHRINE 4 MG in NS (IVPB) 250 ML IV SCH (05:29)
[2018-11-13 05:32] LABS: LYMPHOCYTES % (MANUAL) 2 %; MONOCYTES % (MANUAL) 2 %; NEUTROPHILS % (MANUAL) 96 %
[2018-11-13] MEDS ORDERED: MIDAZOLAM 5 MG/5 ML (VERSED) VIAL ONE (05:38)
[2018-11-13] MEDS ORDERED: LIDOCAINE PF 2% 5 ML (XYLOCAINE) VIAL ONE ×2 (06:13)
[2018-11-13] MEDS ORDERED: MIDAZOLAM 2 MG/2 ML (VERSED) VIAL IM ONE (06:15)
[2018-11-13] MEDS ORDERED: diphenhydrAMINE 50 MG/ML INJ (BENADRYL) ONE (06:38)
[2018-11-13] MEDS ORDERED: fentaNYL INJECTION 100 MCG/2 ML AMP IVP PRN (06:45)
[2018-11-13] MEDS ORDERED: MIDAZOLAM 10 MG/2 ML (VERSED) VIAL IVP PRN (06:45)
[2018-11-13] MEDS: ONDANSETRON 4 MG/2 ML (SDV) Z0FRAN IVP PRN ×2 (06:50→07:03)
[2018-11-13] MEDS: fentaNYL INJECTION 100 MCG/2 ML AMP IVP PRN ×2 (06:51→06:55)
[2018-11-13 07:00] VITALS: BP 115/67
--- NOTE | 2018-11-13 07:02 | NUR ---
Bedside bronchoscopy started at 0653. Total of 200mcg of Fentanyl administered and 10mg of Versed administered. Bronchoscopy completed at 0658.
[2018-11-13 08:00] VITALS: BP 98/51
[2018-11-13] MEDS ORDERED: LIDOCAINE PF 1% 2 ML VIAL IJ ONE (08:05)
[2018-11-13] MEDS ORDERED: LIDOCAINE JELLY 2% 6 ML SYRINGE MM ONE (08:05)
[2018-11-13] MEDS ORDERED: LIDOCAINE JELLY 2% (XYLOCAINE) 5 ML TUBE MM ONE (08:05)
[2018-11-13] MEDS: NS IV 1000 ML 1,000 ML IV SCH ×2 (08:24→20:55)
[2018-11-13] MEDS: LORATADINE (CLARITIN) 10 MG TAB PO SCH (08:24)
[2018-11-13] MEDS: DOCUSATE SODIUM 100 MG (COLACE) CAP PO PRN ×2 (08:24→20:55)
[2018-11-13] MEDS: SENNA W/DOCUSATE (SENOKOT S) TABLET PO SCH ×2 (08:25→20:54)
--- NOTE | 2018-11-13 09:05 | Pulmonary Procedures ---
Pulmonary Procedures Date of Procedure Date of Service: Nov 13, 2018 Bronch Bronchoscopy with bilateral washes. Preop DX PNA Postop DX: same -- Copious amounts of sputum Complications: none After informed consent obtained and formal time out pt was sedated using Fentanyl and Versed. Bronchoscope was advanced through the nare and vocal cords. 1% lidocaine was used to anesthetize vocal cords, epiglottis, chiquita, and left/right main stem bronchus. An anatomical tour was undertaken down to the segmental bronchi bilaterally. No endobronchial lesions noted.bilateral washes were obtained. Pt tolerated procedure well. No complications noted. Stat CXR is pending. TIFFANIE CARDONA DO Nov 13, 2018 09:05
[2018-11-13] MEDS ORDERED: PATIENT MAY USE OWN MED,SINGLE MED PO SCH (11:30)
--- NOTE | 2018-11-13 11:47 | Progress Note - Hospitalist ---
[facility] 11/13/18 1147: Subjective HPI/CC On Admission Date Seen by Provider: Nov 13, 2018 Time Seen by Provider: 08:00 Chief complaint: Productive cough with hypoxia and shortness of breath History of present illness: This is a 47-year-old white female clinic patient of formerly [facility], [facility] with a history of HIV with CD4 count greater than 250 on last check who sees Dr. Prabhakar on a regular basis who presents to Dr. Manjula Alves at clinic today after discharge from [facility] for pneumonia 1 month ago with shortness of breath cough and worsening symptoms. She was found to have severe rales and rhonchi and in need of hospitalization. I did speak to Dr. Louis who will plan on doing bronchoscopy if needed. CT scan of the chest will be performed also. She reports that she is always felt like she has bronchitis and the phlegm is too thick to cough up. She reports that after she gets off medication for pneumonia she feels like she never really gets rid of it. She is a former smoker quit several years ago and understands that she has lung problems but she does not feel like she really ever gets rid of upper respiratory illnesses. Her viral load was undetectable in the last lab check. She had subjective fever at home also. At [facility] she was diagnosed with rhinovirus and COPD exacerbation. Chest x-ray was negative along with lactic acid so she will be given gentle IV fluids IV steroids and meropenem and vancomycin and CT scan will be reviewed and bronchoscopy will be performed. Subjective/Events-last exam Patient was alert and oriented and in no acute distress Patient was doing much better and recently had a bronchoscopy done by Dr. Louis She stated she was feeling much better and is was in no pain She is eating and drinking Patient is urinating and has not had a bowel movement as of this am Questions and concerns in regards to timeline of results from biopsy were discussed ROS: patient denied chest pain outside of her norm (coughing midsternum pain), denied SOB, denied F/C and N/V Heart: HRRR Lungs: Big improvement, wheezing still present but noticeably better. Labs: Stable Vitals: Stable Plan: moving patient to step down unit to continue her recovery. Overall patient is making great progress. Focused Exam Lactate Level 11/11/18 16:16: Lactic Acid Level 1.12 Respiratory: No Accessory Muscle Use, No Respiratory Distress, Wheezing, Other (Improved lung sounds ) Cardiovascular: Regular Rate, Rhythm, No Edema, No JVD Objective Exam Vital Signs Vital Signs Date Time Temp Pulse Resp B/P (MAP) Pulse Ox O2 Delivery O2 Flow Rate FiO2 11/13/18 09:35 93 Room Air 11/13/18 08:00 77 30 98/51 (67) 11/13/18 03:20 97.4 11/11/18 21:10 21 Capillary Refill : General Appearance: No Apparent Distress, WD/WN Neck: Full Range of Motion Respiratory: No Accessory Muscle Use, No Respiratory Distress, Wheezing Cardiovascular: Regular Rate, Rhythm, No Edema, No JVD Neurologic/Psychiatric: Alert, Oriented x3 Results/Procedures Lab Laboratory Tests 11/13/18 03:34 Patient resulted labs reviewed. Assessment/Plan Assessment and Plan Assess & Plan/Chief Complaint Assessment: 1. Recurrent bacterial bronchitis with thickened sputum in need of CT chest and bronchoscopy 2. HIV 3. Former smoker 4. COPD Plan: 1. Bronchoscopy (complete) 2. Continue Abx regimen 3. IVF 4. Move patient to step down unit and continue her recovery 5. PT and OT as tolerated. 6. Get the patient to have a BM Clinical Quality Measures DVT/VTE Risk/Contraindication: Risk Factor Score Per Nursin RFS Level Per Nursing on Admit: 2=Moderate MELIA MITCHELL DO 11/13/18 1540: Subjective Subjective/Events-last exam Patient doing much better Bronchoscopy from this morning dramatically improved her situation Feels like she can breathe for the first time Tolerating meds Likely will go home tomorrow if she feels up to it Review of Systems Pulmonary: Dyspnea, Cough Objective Exam General Appearance: No Apparent Distress, WD/WN Respiratory: Chest Non Tender, Lungs Clear, Normal Breath Sounds, No Accessory Muscle Use, No Respiratory Distress Assessment/Plan Assessment and Plan Assess & Plan/Chief Complaint Mucous plugging resolved with bronchoscopy DC home this weekend. Diagnosis/Problems Diagnosis/Problems (1) Mucus plugging of bronchi Status: Acute (2) Acute bronchitis, bacterial Status: Acute (3) HIV (human immunodeficiency virus infection) Status: Chronic Qualifiers: Qualified Codes: Z21 - Asymptomatic human immunodeficiency virus [hiv] infection status (4) Wheezing Status: Acute (5) COPD (chronic obstructive pulmonary disease) Status: Chronic Qualifiers: Qualified Codes: J41.8 - Mixed simple and mucopurulent chronic bronchitis (6) Former smoker Status: Chronic Supervisory-Addendum Brief Verification & Attestation Participated in pt care: history, MDM, physical Personally performed: exam, history, MDM, supervision of care Care discussed with: Medical Student Procedures: n/a Results interpretation: Verified all documentation Verification and Attestation of Medical Student E/M Service A medical student performed and documented this service in my presence. I reviewed and verified all information documented by the medical student and made modifications to such information, when appropriate. I personally performed the physical exam and medical decision making. Melia Mitchell, Nov 13, 2018,15:40 [facility] Nov 13, 2018 11:47 MELIA MITCHELL DO Nov 13, 2018 15:40
--- NOTE | 2018-11-13 15:00 | NUR ---
got report from Yanet BETANCOURT. patient orientated to room Addendum: 11/13/18 at 1552 by ANDREW KIRKLAND RN above entry should have been timed at 1150am
[2018-11-13] MEDS ORDERED: MILK OF MAGNESIA 400 MG/5 ML 30 ML UDC PO PRN (20:15)
[2018-11-13] MEDS: TEMAZEPAM 15 MG (RESTORIL) CAP PO SCH (20:54)
[2018-11-13] MEDS: MONTELUKAST 10 MG (SINGULAIR) TAB PO SCH (20:55)
[2018-11-13] MEDS ORDERED: NON-FORMULARY MEDICATION 1 EA EA (Bictegrav/Emtricit/Tenofov Ala (Biktarvy 50-200-25 mg Ta PO SCH (21:00)
[2018-11-13] MEDS: diphenhydrAMINE 25 MG TAB (BENADRYL) PO PRN (22:51)
[2018-11-13] MEDS: ALPRAZolam 0.25 MG (XANAX) TAB PO PRN (22:51)
[2018-11-14] VITALS: BP 101/55
[2018-11-14] MEDS: RT-ALBUTEROL/IPRATROPIUM 3 ML (DUONEB) VIAL INH SCH ×2 (02:19→09:49)
[2018-11-14] MEDS: MEROPENEM 500 MG in WATER (STERILE) FOR INJECTION 10 ML IV SCH ×2 (03:35→08:29)
[2018-11-14 04:00] VITALS: BP 107/72
[2018-11-14] MEDS: methylPREDNISolone 40 MG/ML (Solu-MEDROL) VIAL IV SCH ×2 (05:02→11:12)
[2018-11-14] MEDS: VANCOMYCIN 1250 MG/NS 250 ML IVPB IV SCH ×2 (05:02)
[2018-11-14 06:37] LABS: BASOPHILS % (AUTO) 0 % (0-10); EOSINOPHILS % (AUTO) 0 % (0-10); HEMATOCRIT 39 % (35-52); HEMOGLOBIN 12.6 G/DL (11.5-16.0); LYMPHOCYTES # (AUTO) 0.8 X 10^3 (1.0-4.0); LYMPHOCYTES % (AUTO) 5 % (12-44); MEAN CORPUSCULAR HEMOGLOBIN 29 PG (25-34); MEAN CORPUSCULAR HGB CONC 32 G/DL (32-36); MEAN CORPUSCULAR VOLUME 89 FL (80-99); MEAN PLATELET VOLUME 11.5 FL (7.4-10.4); MONOCYTES # (AUTO) 0.6 X 10^3 (0.0-1.0); MONOCYTES % (AUTO) 4 % (0-12); NEUTROPHILS # (AUTO) 13.7 X 10^3 (1.8-7.8); NEUTROPHILS % (AUTO) 91 % (42-75); PLATELET COUNT 223 10^3/uL (130-400); RED CELL DISTRIBUTION WIDTH 16.1 % (10.0-14.5)
[2018-11-14 06:59] LABS: BUN/CREATININE RATIO 16; CALCIUM 8.9 MG/DL (8.5-10.1); CARBON DIOXIDE 27 MMOL/L (21-32); CHLORIDE 104 MMOL/L (98-107); CREATININE SERUM 0.61 MG/DL (0.60-1.30); GFR ESTIMATED > 60; GLUCOSE 116 MG/DL (70-105); MAGNESIUM 2.1 MG/DL (1.6-2.4); PHOSPHORUS 3.6 MG/DL (2.3-4.7); POTASSIUM 3.9 MMOL/L (3.6-5.0); SODIUM 141 MMOL/L (135-145)
--- NOTE | 2018-11-14 07:29 | Pulmonary Progress Note ---
Subjective Time Seen by a Provider: 07:29 Subjective/Events-last exam Pt appears to be doing better. Sepsis Event Evaluation Height, Weight, BMI Height: 5'4.00" Weight: 203lbs. 1.6oz. 92.998378tz; 32.5 BMI Method:Stated Focused Exam Lactate Level 11/11/18 16:16: Lactic Acid Level 1.12 Exam Exam Vital Signs Date Time Temp Pulse Resp B/P (MAP) Pulse Ox O2 Delivery O2 Flow Rate FiO2 11/14/18 04:00 97.6 60 14 107/72 (84) 95 Room Air 11/14/18 02:19 96 Room Air 11/14/18 00:00 98.3 64 16 101/55 (70) 95 Room Air 11/13/18 21:45 Room Air 11/13/18 20:10 95 Room Air 11/13/18 16:51 Room Air 11/13/18 15:29 97 Room Air 11/13/18 09:35 93 Room Air 11/13/18 08:06 95 Room Air 11/13/18 08:00 77 30 98/51 (67) 94 Room Air I & O 11/14/18 07:00 Intake Total 2270 ml Balance 2270 ml Height & Weight Height: 5'4.00" Weight: 203lbs. 1.6oz. 92.324878jn; 32.5 BMI Method:Stated General Appearance: No Apparent Distress, WD/WN HEENT: PERRL/EOMI, Normal ENT Inspection, Pharynx Normal, Moist Mucous Membranes Neck: Full Range of Motion Respiratory: Chest Non Tender, Lungs Clear, Normal Breath Sounds, No Accessory Muscle Use, No Respiratory Distress Cardiovascular: Regular Rate, Rhythm, No Edema, No JVD Extremity: Normal Capillary Refill, Normal Inspection, Normal Range of Motion, Non Tender, No Calf Tenderness, No Pedal Edema Neurologic/Psychiatric: Alert, Oriented x3 Skin: Normal Color, Warm/Dry Lymphatic: No Adenopathy Results Lab Laboratory Tests 11/13/18 03:34 11/14/18 05:56 Assessment/Plan Assessment/Plan COPDAE -Solumedrol -SVNs Pneumonia with mucous plugging -S/p Bronchoscopy HIV hx -Follows with ID Hx of tobacco use TIFFANIE CARDONA DO Nov 14, 2018 07:29
[2018-11-14 08:00] VITALS: BP 100/66
[2018-11-14] MEDS: NS IV 1000 ML 1,000 ML IV SCH (08:28)
[2018-11-14] MEDS: LORATADINE (CLARITIN) 10 MG TAB PO SCH (08:29)
[2018-11-14] MEDS: SENNA W/DOCUSATE (SENOKOT S) TABLET PO SCH (08:29)
[2018-11-14 11:29] VITALS: BP 100/66
[2018-11-14] MEDS ORDERED: RT-ALBUTEROL/IPRATROPIUM 3 ML (DUONEB) VIAL INH PRN (12:00)
[2018-11-14] MEDS ORDERED: PRED10TA22 PO (12:21)
[2018-11-14] MEDS ORDERED: CEFD300C3 PO (12:21)
[2018-11-14] MEDS ORDERED: MONT10TA24 PO (12:21)
--- NOTE | 2018-11-14 12:22 | Discharge Summary ---
Diagnosis/Chief Complaint Date of Admission Nov 11, 2018 at 15:39 Date of Discharge Discharge Date: Nov 14, 2018 Admission Diagnosis Assessment: Recurrent bacterial bronchitis with thickened sputum in need of CT chest and bronchoscopy HIV Former smoker COPD Plan: Bronch CT Abx [facility] Discharge Diagnosis (1) Mucus plugging of bronchi Status: Acute (2) Acute bronchitis, bacterial Status: Acute (3) HIV (human immunodeficiency virus infection) Status: Chronic (4) Wheezing Status: Acute (5) COPD (chronic obstructive pulmonary disease) Status: Chronic (6) Former smoker Status: Chronic Discharge Summary Discharge Physical Exam Allergies: Coded Allergies: No Known Drug Allergies (Unverified , 03/10/16) Vitals & I&Os Vital Signs Date Time Temp Pulse Resp B/P (MAP) Pulse Ox O2 Delivery O2 Flow Rate FiO2 11/14/18 13:00 11/14/18 11:29 60 95 21 11/14/18 09:49 Room Air 11/14/18 08:00 97.9 20 General Appearance: No Apparent Distress, WD/WN Respiratory: Chest Non Tender, Lungs Clear, Normal Breath Sounds, No Accessory Muscle Use, No Respiratory Distress Cardiovascular: Regular Rate, Rhythm, No Edema, No Gallop, No JVD, No Murmur, Normal Peripheral Pulses Neurologic/Psychiatric: Alert, Oriented x3, No Motor/Sensory Deficits, Normal Mood/Affect Hospital Course Was the Problem List Reviewed?: Yes Hospital course: Patient had an uncomplicated hospital course for 4 days after she was directly admitted for recurrent bacterial bronchitis with impending respiratory insufficiency. Chest x-ray did not reveal any definitive infiltrate but vancomycin and meropenem were both maintained due to recent hospital stay and HIV status. IV steroids improved status and CT scan showed mucous plugging and bronchoscopy was performed removing a tremendous amount of mucus plugging and hence resolving her entire symptomatic upper respiratory issue. Patient was deemed stable for discharge bronchoscopy showed normal respiratory scott and she was continued on Omnicef and a fast taper prednisone dose and was deemed stable for discharge. Labs (last 24 hrs) Laboratory Tests 11/14/18 05:56: White Blood Count 15.0H, Red Blood Count 4.35, Hemoglobin 12.6, Hematocrit 39, Mean Corpuscular Volume 89, Mean Corpuscular Hemoglobin 29, Mean Corpuscular Hemoglobin Concent 32, Red Cell Distribution Width 16.1H, Platelet Count 223, Mean Platelet Volume 11.5H, Neutrophils (%) (Auto) 91H, Lymphocytes (%) (Auto) 5L, Monocytes (%) (Auto) 4, Eosinophils (%) (Auto) 0, Basophils (%) (Auto) 0, Neutrophils # (Auto) 13.7H, Lymphocytes # (Auto) 0.8L, Monocytes # (Auto) 0.6, Eosinophils # (Auto) 0.0, Basophils # (Auto) 0.0, Sodium Level 141, Potassium Level 3.9, Chloride Level 104, Carbon Dioxide Level 27, Anion Gap 10, Blood Urea Nitrogen 10, Creatinine 0.61, Estimat Glomerular Filtration Rate > 60, BUN/Creatinine Ratio 16, Glucose Level 116H, Calcium Level 8.9, Phosphorus Level 3.6, Magnesium Level 2.1 Microbiology 11/11/18 Blood Culture - Preliminary, Resulted No growth 11/13/18 Mycobacterial Culture - Preliminary, Resulted Patient resulted labs reviewed. Pending Labs Discussion & Recommendations Discharge Planning: <30 minutes discharge planning Discharge Home Medications: Active Scripts Active Cefdinir 300 Mg Capsule 300 Mg PO BID Prednisone 10 Mg Tab.ds.pk 10 Mg PO DAILY Take 6 tabs(60mg)daily,decrease by 1 tab(10MG)daily. Montelukast Sodium 10 Mg Tablet 10 Mg PO HS Reported Anoro Ellipta 62.5-25 Mcg INH (Umeclidinium Brm/Vilanterol Tr) 1 Each Blst.w.dev 1 Puff IH DAILY Fluticasone-Salmeterol 500-50 (Fluticasone Propion/Salmeterol) 1 Each Blst.w.dev 1 Puff INH 1200,2100 LAST FILLED #60 09-02-18 Spiriva (Tiotropium [place]) 1 Inh Aerp 1 Cap INH DAILY LAST FILLED #30 19 Vitamin D3 (Cholecalciferol (Vitamin D3)) 1,000 Unit Tablet 1,000 Unit PO DAILY Multivitamins (Multivitamin) 1 Each Tablet 1 Tab PO DAILY Metamucil Powder (Psyllium Husk/Aspartame) 174 Gm Powder 1-2 Tbs PO BID Doxycycline Hyclate 100 Mg Capsule 100 Mg PO BID Estradiol 42.5 Gm Cream.appl TOP DAILY Cyclobenzaprine HCl 10 Mg Tablet 20 Mg PO HS TAKES 2 (10MG) TABLETS Cyclobenzaprine HCl 10 Mg Tablet 10 Mg PO DAILY Trulance (Plecanatide) 3 Mg Tablet 3 Mg PO DAILY Duloxetine HCl 60 Mg Capsule.dr 60 Mg PO DAILY Biktarvy 50-200-25 mg Tablet (Bictegrav/Emtricit/Tenofov Ala) 1 Each Tablet 1 Tab PO HS Prempro 0.3 mg-1.5 mg Tablet (Estrogen,Con/M-Progest Acet) 1 Each Tablet 1 Tab PO DAILY Meloxicam 15 Mg Tablet 15 Mg PO DAILY Omeprazole 40 Mg Capsule.dr 40 Mg PO DAILY Temazepam 30 Mg Capsule 30 Mg PO HS Instructions to patient/family Please see electronic discharge instructions given to patient. Clinical Quality Measures DVT/VTE Risk/Contraindication: Risk Factor Score Per Nursin RFS Level Per Nursing on Admit: 2=Moderate Problem Qualifiers (1) HIV (human immunodeficiency virus infection): HIV symptom status: asymptomatic Qualified Codes: Z21 - Asymptomatic human immunodeficiency virus [hiv] infection status (2) COPD (chronic obstructive pulmonary disease): COPD type: chronic bronchitis Chronic bronchitis type: mixed simple and mucopurulent Qualified Codes: J41.8 - Mixed simple and mucopurulent chronic bronchitis VIRAL MITCHELL DO Nov 14, 2018 12:22
--- NOTE | 2018-11-23 10:11 | Physician Query Clarification ---
PQ-Further Specificity Admission/Discharge Admission Date: Nov 11, 2018 at 15:39 Discharge Date: Nov 14, 2018 at 13:00 The medical record reflects the following clinical scenario: History/Risk Factors: Hx HIV, pneumonia 1 month ago Clinical Findings: CD4 count > 250 last check, productive cough, hypoxia, rales, fhonchi, SOB, fever Treatment: IV steroids, meropenem, vancomycin and fluids Question: Can you further clarify the patient's HIV status per the clinical indicators above? Please document a response in the Progress Notes or Discharge Summary. 1. Is this asymptomatic HIV infection 2. Confirmed AIDS or previous HIV related illness 3. Other, with explanation of the clinical findings. 4. Clinically undetermined, no explanation for the clinical findings. PHYSICIAN RESPONSE Can you specify per above: Clinically undetermined Please remember a lack of response to the above will prompt a phone page by CDI/Coding staff. In responding to this query, please exercise your independent professional chris gment. The purpose of this communication is to more accurately reflect the complexity of your patients condition. The fact that a question is asked does not imply that any particular answer is desired or expected. Thank you for your timely response to this clarification. Requestors name: Jane THIS PHYSICIAN QUERY FORM IS A PERMANENT PART OF THE MEDICAL RECORD JANE BUORNE Nov 23, 2018 10:11 VIRAL MITCHELL DO Nov 23, 2018 20:33
--- NOTE | 2018-11-23 10:23 | Physician Query Clarification ---
PQ-Further Specificity Admission/Discharge Admission Date: Nov 11, 2018 at 15:39 Discharge Date: Nov 14, 2018 at 13:00 The medical record reflects the following clinical scenario: History/Risk Factors: hx pneumonia Clinical Findings: productive cough, hypoxia, SOB, rales, rhonchi, fever Treatment: Bronchoscopy Question: Can you further specify if a BAL was also done during the bronchoscopy? Seeing washings and removal of mucous plugs. Please document a response in the Progress Notes or Discharge Summary. 1. washings, removal mucous plugs only done 2. washings, removal mucous plugs and BAL done 3. Other, with explanation of the clinical findings. 4. Clinically undetermined, no explanation for the clinical findings. PHYSICIAN RESPONSE Can you specify per above: 2 Please remember a lack of response to the above will prompt a phone page by CDI/Coding staff. In responding to this query, please exercise your independent professional judgment. The purpose of this communication is to more accurately reflect the complexity of your patients condition. The fact that a question is asked does not imply that any particular answer is desired or expected. Thank you for your timely response to this clarification. Requestors name: Tessa THIS PHYSICIAN QUERY FORM IS A PERMANENT PART OF THE MEDICAL RECORD TESSA BOURNE Nov 23, 2018 10:22 TIFFANIE CARDONA DO Nov 24, 2018 07:15
== END 2018-11-14 13:00 | disposition home or self-care (01) | DRG 167 ==
LOC: ICU 15:39 → 4TH 11-13 11:46
PROVIDERS: ADMIT Internal Medicine; ATTEND Internal Medicine
PROC: 0BC38ZZ Extirpation of Matter from Right Main Bronchus, Via Natural or Artificial Opening Endoscopic (ICD-10-PCS; principal; 2018-11-13)
PROC: 0BC78ZZ Extirpation of Matter from Left Main Bronchus, Via Natural or Artificial Opening Endoscopic (ICD-10-PCS; 2018-11-13)
PROC: 0B9M8ZZ Drainage of Bilateral Lungs, Via Natural or Artificial Opening Endoscopic (ICD-10-PCS; 2018-11-13)
DX: J20.9 Acute bronchitis, unspecified (principal); J44.0 Chronic obstructive pulmonary disease with (acute) lower respiratory infection; J98.09 Other diseases of bronchus, not elsewhere classified; A49.9 Bacterial infection, unspecified; Z21 Asymptomatic human immunodeficiency virus [HIV] infection status; R06.2 Wheezing; R42 Dizziness and giddiness; K21.9 Gastro-esophageal reflux disease without esophagitis; K59.09 Other constipation; K44.9 Diaphragmatic hernia without obstruction or gangrene; F90.9 Attention-deficit hyperactivity disorder, unspecified type; F41.9 Anxiety disorder, unspecified; F43.10 Post-traumatic stress disorder, unspecified; F31.9 Bipolar disorder, unspecified; Z87.891 Personal history of nicotine dependence; Z95.0 Presence of cardiac pacemaker; Z87.11 Personal history of peptic ulcer disease
CPT/HCPCS: 36415; 36600; 71045; 71275; 80048; 80053; 80202; 82805; 83605; 83735; 84100; 85007; 85025; 85027; 87015; 87040; 87070; 87101; 87106; 87116; 87205; 87206; 87804; 94640; 94664; 94760

== ENCOUNTER → 2019-01-29 | Outpatient (CLI) | payer MEDICARE, MEDICAID ==
[~2019-01-29] MED LIST changes: +BICT1TAB PO; +CATHETER FLUSH 10 ML SYR IV PRN; +CHOL10003 PO; +CYCL10TA9 PO; +DOXY100C2 PO; +DULO60CA59 PO; +ESTR1TAB14 PO; +ESTR42.511 TOP; +FLUT1BLS13 INH; +HOLD METFORMIN - RECEIVED CONTRAST 20 ML VIAL IV SCH; +IOHEXOL 350 MG/ML 100 ML (OMNIPAQUE 350) VIAL IV ONE; +MELO15TA39 PO; +MONT10TA24 PO; +MULT1TAB69 PO; +NS 100 ML (IVPB) BAG IV ONE; +PLEC3TAB PO; +PRED10TA22 PO; +PSYL174P2 PO; +RT-ALBUTEROL SULF 2.5 MG/3 ML PRE-MIX VIAL INH ONE; +TIOT18CA2 INH; +VARE1TAB22 PO
[2019-01-29 08:16] LABS: BUN/CREATININE RATIO 21; CREATININE SERUM 0.77 MG/DL (0.60-1.30); GFR ESTIMATED > 60
--- NOTE | 2019-01-29 10:25 | Diagnostic Imaging Report ---
PROCEDURE: CT chest with contrast only. TECHNIQUE: Multiple contiguous axial images were obtained through the chest after administration of intravenous contrast. Auto Exposure Controls were utilized during the CT exam to meet ALARA standards for radiation dose reduction. INDICATION: Shortness of air and cough. COMPARISON: Correlation is made with prior chest CT from 11/11/2018. FINDINGS: A left chest wall cardiac pacemaker is noted. No axillary lymphadenopathy is detected. No definite mediastinal or hilar lymphadenopathy is detected. No pericardial or pleural fluid is identified. No definite pulmonary infiltrates, nodules or masses are seen. Previously noted mucous plugging involving bilateral lower lobe bronchi and associated wall thickening has resolved. Upper abdomen demonstrates post surgical changes to the stomach. IMPRESSION: Essentially unremarkable CT of the chest. Previously noted mucous plugging and bronchial wall thickening noted on CT from October has resolved. No new abnormality is detected. Dictated by: Dictated on workstation # [id number]
== END ==
LOC: RT 07:35
PROVIDERS: ATTEND Nurse Practitioner Family
DX: J30.9 Allergic rhinitis, unspecified (principal); Z72.0 Tobacco use; Z21 Asymptomatic human immunodeficiency virus [HIV] infection status
CPT/HCPCS: 36415; 71260; 82565; 84520; 94060; 94726; 94729

== ENCOUNTER 2019-04-07 05:53 | Outpatient (CLI) | payer MEDICARE, MEDICAID ==
[~2019-04-07] VITALS: Ht 162 cm; Wt 88.0 kg
[~2019-04-07 05:53] MED LIST changes: -CATHETER FLUSH 10 ML SYR IV PRN; -ESTR1TAB14 PO; -HOLD METFORMIN - RECEIVED CONTRAST 20 ML VIAL IV SCH; -IOHEXOL 350 MG/ML 100 ML (OMNIPAQUE 350) VIAL IV ONE; +NFPREMP0.3 PO; -NS 100 ML (IVPB) BAG IV ONE; +OMEP40CA27 PO; -OMEP40CA36 PO; -RT-ALBUTEROL SULF 2.5 MG/3 ML PRE-MIX VIAL INH ONE
[2019-04-07] MEDS ORDERED: CHOL200025 PO (13:09)
[2019-04-09] MEDS ORDERED: PANT40TA2 PO (12:55)
== END 2019-04-07 13:30 | disposition home or self-care (01) ==
LOC: PREOP 05:53
PROVIDERS: ATTEND Surgery
DX: Z01.818 Encounter for other preprocedural examination (principal)

== ENCOUNTER → 2019-06-11 | Outpatient (CLI) | payer MEDICARE, MEDICAID ==
[~2019-06-11] MED LIST changes: +CHOL200025 PO; -MECL-106 PO; +MECL-149 PO; -MONT10TA24 PO; +MONT10TA26 PO; +PANT40TA2 PO; +ROPI1TAB PO; -ROPI1TAB2 PO
--- NOTE | 2019-06-11 13:13 | Diagnostic Imaging Report ---
INDICATION: Palpable fullness in the outer left breast. COMPARISON: No prior studies are available for comparison. 2-D and 3-D bilateral diagnostic mammography was performed with CAD. Scattered fibroglandular densities are identified bilaterally. A marker was placed at the area of fullness in the outer left breast. There is some mild asymmetric increased density at this location but no discrete mass is identified. There are occasional benign calcifications bilaterally. No malignant appearing microcalcifications are seen. Pacemaker battery pack is located in the left axilla. IMPRESSION: BI-RADS 0 Mild asymmetric increased density in the outer left breast, indeterminate. This could represent asymmetric fibroglandular tissue. Further evaluation of this area with ultrasound is recommended and will be performed today. ACR BI-RADS Category 0: Incomplete. (Needs additional imaging evaluation). Result letter will be mailed to the patient. Note: At least 10% of breast cancer is not imaged by mammography. Dictated by: Dictated on workstation # [id number]
--- NOTE | 2019-06-11 14:14 | Diagnostic Imaging Report ---
INDICATION: A palpable fullness in the lateral left breast. CORRELATION is made with diagnostic mammogram earlier the same day. Sonographic interrogation of the area of fullness in the left breast was performed. This corresponds to the 4:00 location approximately 8 cm from the nipple. No sonographic abnormality is seen. No solid or cystic mass is detected. IMPRESSION: BI-RADS Category 1 No sonographic abnormality is identified. Continued clinical and self breast exam is recommended to confirm stability of the area of palpable abnormality. Dictated by: Dictated on workstation # [id number]
== END ==
LOC: RAD 12:22
PROVIDERS: ATTEND Internal Medicine Rheumatology
DX: N63.23 Unspecified lump in the left breast, lower outer quadrant (principal)
CPT/HCPCS: 76642; 77066

== ENCOUNTER → 2019-07-12 | Outpatient (CLI) | payer MEDICARE, MEDICAID | LOC: CARD 10:06 | PROVIDERS: ATTEND Internal Medicine Cardiovascular Disease | DX: R06.02 Shortness of breath (principal); R53.83 Other fatigue; R07.9 Chest pain, unspecified; I07.1 Rheumatic tricuspid insufficiency; Z72.0 Tobacco use | CPT/HCPCS: 93306 ==

== ENCOUNTER → 2019-07-16 | Outpatient (CLI) | payer MEDICARE, MEDICAID ==
[~2019-07-16] VITALS: Ht 160 cm; Wt 90.0 kg
[~2019-07-16] MED LIST changes: +CATHETER FLUSH 10 ML SYR IV PRN; +REGADENOSON 0.4 MG/5 ML SYR (LEXISCAN) IV ONE
--- NOTE | 2019-07-16 11:17 | STRESS TEST ---
DATE OF SERVICE: 07/16/2019 RESTING AND POST REGADENOSON TECHNETIUM-99M TETROFOSMIN SPECT CT IMAGING ORDERING PHYSICIAN: Dr. Kirk. PRIMARY PHYSICIAN: [facility]. CLINICAL DIAGNOSES: Shortness of breath, chest discomfort, tobacco use. Baseline images were carried out after injection of 10.8 mCi of technetium-99m Tetrofosmin. This was followed by 0.4 mg regadenoson and 29.9 mCi of technetium-99m Tetrofosmin for stress imaging. The electrocardiogram showed a paced atrial rhythm. QRS complexes were kashia. The electrocardiogram did not show any significant changes with regadenoson infusion. Review of images at rest and following stress does not indicate any distinct perfusion defects consistent with myocardial ischemia or infarction. Some degree of apical thinning and diaphragmatic attenuation is noted both at rest and following regadenoson infusion. Gated images show normal regional wall motion and normal global left ventricular systolic function. Left ventricular ejection fraction is calculated to be 71%. Left ventricular end diastolic volume is 43 mL. TID is absent (0.86). CONCLUSIONS: 1. No evidence of any significant myocardial ischemia or infarction on this study. 2. Normal regional wall motion. 3. Normal global left ventricular systolic function with a calculated ejection fraction of 71%. Job ID: [id number] DocumentID: [id number] Dictated Date: 07/16/2019 10:08:17 Burial Needs Salesperson Date: 07/16/2019 11:16:45 Dictated By: SAMUEL KIRK MD, MA, FACP, FACC,
== END ==
LOC: CARD 07-13 07:10
PROVIDERS: ATTEND Internal Medicine Cardiovascular Disease
DX: R06.02 Shortness of breath (principal); R53.83 Other fatigue; R07.9 Chest pain, unspecified; Z72.0 Tobacco use
CPT/HCPCS: 78452; 93017

== ENCOUNTER → 2019-07-19 | Outpatient (CLI) | payer MEDICARE, MEDICAID ==
[~2019-07-19] MED LIST changes: -CATHETER FLUSH 10 ML SYR IV PRN; +HOLD METFORMIN - RECEIVED CONTRAST 20 ML VIAL IV SCH; +IOHEXOL 350 MG/ML 100 ML (OMNIPAQUE 350) VIAL IV ONE; +NS 100 ML (IVPB) BAG IV ONE; -REGADENOSON 0.4 MG/5 ML SYR (LEXISCAN) IV ONE
--- NOTE | 2019-07-19 09:29 | Diagnostic Imaging Report ---
PROCEDURE: CT head with and without contrast. TECHNIQUE: Multiple contiguous axial images were obtained through the brain before and after the administration of intravenous contrast. Auto Exposure Controls were utilized during the CT exam to meet ALARA standards for radiation dose reduction. INDICATION: Disorientation, memory loss, head pain. Compared with study 10/02/2017. FINDINGS: There is no hydrocephalus. Previously identified minute 3 mm hyperdensity along the foramen of Quintana can no longer be visualized may be skipped owing to slice localization. No mass effect is found. No evidence for focal nor generalized cerebral edema. Following the administration of intravenous contrast, there was no abnormal or suspicious parenchymal or meningeal enhancement. No evidence for elevation of the intracranial pressures. No findings of an infarct. No hemorrhage. IMPRESSION: Unremarkable pre and post IV contrast-enhanced head CT. Dictated by: Dictated on workstation # [id number]
== END ==
LOC: RAD 08:48
PROVIDERS: ATTEND Nurse Practitioner Community Health
DX: R41.0 Disorientation, unspecified (principal); R51 Headache; R41.3 Other amnesia
CPT/HCPCS: 70470

== ENCOUNTER 2019-08-31 08:15 | Day surgery (SDC) | payer MEDICARE, MEDICAID ==
[2019-08-31] VITALS (9 sets, daily range): BP systolic 94–122; BP diastolic 56–95
[~2019-08-31] VITALS: Ht 162.5 cm; Wt 90.0 kg
[~2019-08-31 08:15] MED LIST changes: -HOLD METFORMIN - RECEIVED CONTRAST 20 ML VIAL IV SCH; -IOHEXOL 350 MG/ML 100 ML (OMNIPAQUE 350) VIAL IV ONE; -NS 100 ML (IVPB) BAG IV ONE
[2019-08-31] MEDS ORDERED: HEParin (CATH LAB) 1,000 ML IV ONE (08:23)
[2019-08-31] MEDS ORDERED: LIDOCAINE 1% INJ 20 ML 20 ML VIAL ONE ×2 (08:23→11:34)
[2019-08-31] MEDS ORDERED: ceFAZolin INJECTION 1,000 MG ONE (08:23)
[2019-08-31] MEDS ORDERED: NS IV 1000 ML 1,000 ML ONE (08:23)
[2019-08-31] MEDS ORDERED: BACITRACIN INJECTION 50,000 UNIT, SODIUM CHLORIDE 0.9% IRRIGATIO 500 ML IR ONE ×2 (08:30)
[2019-08-31] MEDS ORDERED: NS IV 1000 ML 1,000 ML IV SCH ×2 (08:30→12:21)
[2019-08-31 08:48] LABS: HEMOGLOBIN 15.4 G/DL (11.5-16.0); MEAN PLATELET VOLUME 11.3 FL (7.4-10.4); RED CELL DISTRIBUTION WIDTH 16.8 % (10.0-14.5); WHITE BLOOD COUNT 8.5 10^3/uL (4.3-11.0)
[2019-08-31] MEDS ORDERED: ESTR2TAB4 PO (09:00)
[2019-08-31] MEDS ORDERED: VITA1CAP19 PO (09:06)
[2019-08-31] MEDS ORDERED: PROP10TA8 PO (09:06)
[2019-08-31] MEDS ORDERED: PARO-49 PO (09:06)
[2019-08-31] MEDS ORDERED: FERR325T24 PO (09:06)
[2019-08-31] MEDS ORDERED: MIRT30TA6 PO (09:06)
[2019-08-31] MEDS ORDERED: CARI1.5C PO (09:06)
[2019-08-31 09:13] LABS: PROTHROMBIN TIME PATIENT 13.2 SEC (12.2-14.7)
[2019-08-31 09:24] LABS: ALANINE AMINOTRANSFERASE 19 U/L (0-55); ALBUMIN 4.3 GM/DL (3.2-4.5); ALKALINE PHOSPHATASE 86 U/L (40-136); BILIRUBIN,TOTAL 0.5 MG/DL (0.1-1.0); BUN/CREATININE RATIO 13; CALCIUM 9.2 MG/DL (8.5-10.1); CARBON DIOXIDE 24 MMOL/L (21-32); CHLORIDE 105 MMOL/L (98-107); CHOLESTEROL 177 MG/DL (< 200); CREATININE SERUM 0.77 MG/DL (0.60-1.30); GFR ESTIMATED > 60; GLUCOSE 91 MG/DL (70-105); HDL CHOLESTEROL 49 MG/DL (40-60); POTASSIUM 4.1 MMOL/L (3.6-5.0); SODIUM 141 MMOL/L (135-145); TOTAL PROTEIN 6.7 GM/DL (6.4-8.2); TRIGLYCERIDES 211 MG/DL (<150); VLDL CHOLESTEROL 42 MG/DL (5-40)
[2019-08-31] MEDS ORDERED: NS (IVPB) 50 ML ONE (10:33)
[2019-08-31] MEDS ORDERED: MIDAZOLAM 5 MG/5 ML (VERSED) VIAL ONE ×2 (10:59→11:35)
[2019-08-31] MEDS ORDERED: fentaNYL INJECTION 100 MCG/2 ML AMP ONE ×2 (10:59→11:41)
--- NOTE | 2019-08-31 11:11 | Cardiac Procedure Note-CS/ASA ---
Pre-Procedure Note Pre-Op Procedure Note H&P Reviewed The H&P was reviewed, patient examined and no changes noted. Date H&P Reviewed: Aug 31, 2019 Time H&P Reviewed: 11:11 Conscious Sedation Pre-Proced Time 11:11 ASA Score 3 For ASA 3 and 4: Consider anesthesia and medical clearance. Also, for patients with a history of failed moderate sedation consider anesthesia. Airway Lungs Heart ASA score ASA 1: a normal healthy patient ASA 2: a patient with a mild systemic disease (mid diabetes, controlled hypertension, obesity ASA 3: a patient with a severe systemic disease that limits activity (angina, COPD, prior Myocardial infarction) ASA 4: a patient with an incapacitating disease that is a constant threat to life (CHF, renal failure) ASA 5: a moribund patient not expected to survive 24 hrs. (ruptured aneurysm) ASA 6: a declared brain- patient whose organs are being harvested. For emergent operations, add the letter E after the classification Mallampati Classification Grade 2 Sedation Plan Analgesia, Amnesia, Plan communicated to team members, Discussed options with patient/fam, Discussed risks with patient/fam The patient is an appropriate candidate to undergo the planned procedure, sedation, and anesthesia. The patient immediately re-assessed prior to indication. SAMUEL GANDHI MD FACP FAC CCDS Aug 31, 2019 11:11
[2019-08-31] MEDS ORDERED: diphenhydrAMINE 50 MG/ML INJ (BENADRYL) ONE (11:38)
[2019-08-31] MEDS ORDERED: NEO/POLY/BAC (NEOSPORIN) OINT 15 GM TUBE ONE (12:11)
[2019-08-31] MEDS ORDERED: CEFU500T63 PO (12:26)
[2019-08-31] MEDS ORDERED: ACET325C7 PO (12:27)
--- NOTE | 2019-08-31 12:28 | Discharge Inst-Cardiology ---
Discharge Inst-Cardiac Discharge Medications New Medications: Acetaminophen (Tylenol) 325 Mg Capsule 650 MG PO Q6H PRN for PAIN-MODERATE (5-7), #30 CAP 0 Refills Cefuroxime Axetil (Cefuroxime) 500 Mg Tablet 500 MG PO BID, #10 TAB 0 Refills Continued Medications: Bictegrav/Emtricit/Tenofov Ala (Biktarvy 50-200-25 mg Tablet) 1 Each Tablet 1 TAB PO HS, TAB Cariprazine Hydrochloride (Vraylar) 1.5 Mg Capsule 1.5 MG PO DAILY, CAP Cholecalciferol (Vitamin D3) (Vitamin D3) 2,000 Unit Tablet 2000 UNIT PO DAILY, TAB Cyclobenzaprine HCl (Cyclobenzaprine HCl) 10 Mg Tablet 10 MG PO BID PRN for PAIN-MODERATE (5-7), TAB Estradiol (Estrace Tablet) 2 Mg Tablet 2 MG PO DAILY, TAB Ferrous Sulfate (Ferosul) 325 Mg Tablet 325 MG PO DAILY, TAB Mirtazapine (Mirtazapine) 30 Mg Tablet 30 MG PO HS, TAB Multivitamin (Multivitamins) 1 Each Tablet 1 TAB PO DAILY, TAB Omeprazole (Omeprazole) 40 Mg Capsule.dr 40 MG PO DAILY, CAP Paroxetine HCl (Paxil) 20 Mg Tablet 20 MG PO DAILY, TAB Plecanatide (Trulance) 3 Mg Tablet 3 MG PO DAILY, TAB Propranolol HCl (Propranolol HCl) 10 Mg Tablet 10 MG PO BID PRN for ANXIETY, TAB Vitamin B Complex (Super B-50 Complex) 1 Each Capsule 1 EACH PO DAILY, SAMUEL DURON MD FACP FAC CCDS Aug 31, 2019 12:28
[2019-08-31] MEDS ORDERED: PATIENT MAY USE OWN MEDS, ALL PO SCH (12:30)
--- NOTE | 2019-08-31 12:30 | Discharge Inst-Post Device ---
Discharge Inst-Post Device Heart Healthy Diet Leave dressing on until follow up at the office F/u at Dr Kirk's office for wound check on 09/03/19 F/u at Dr Kirk's office for doctor visit in 2 weeks F/u at Dr Kirk's office for pacemaker check in one month SAMUEL KIRK MD FACP FAC CCDS Aug 31, 2019 12:30
--- NOTE | 2019-08-31 13:58 | OPERATIVE REPORT ---
DATE OF SERVICE: 08/31/2019 INDICATIONS: The patient is a 48-year-old lady, who had a pacemaker implanted elsewhere for symptomatic bradycardia and has reached elective replacement indicator. Informed consent was obtained for pulse generator change. DESCRIPTION OF PROCEDURE: [facility] The left prepectoral area was prepared and draped in the usual sterile fashion. Lidocaine 1% was used for local anesthesia. Sharp and blunt dissection was used to open the pocket and the device was removed and detached from the leads. The device removed is [employer], serial #[id number]. The right atrial lead is [employer] Tendril 1688TC/46 with serial #[id number]. The right ventricular lead is [employer] Tendril 1688TC/52 with serial #[id number]. These are known to have been implanted on 05/09/2008. The new device attached to the previous lead is [employer] model [id number] with serial #[id number]. The device and leads were placed back into the pocket after the pocket had been irrigated with an antibiotic solution and good hemostasis had been assured. The pocket was closed in 2 layers using 3.0 Vicryl. She tolerated the procedure well. The right atrial lead impedance is 530 ohms. P waves are measured at 1.5 millivolts. Capture threshold is 0.75 volts at 0.4 milliseconds. R waves are measured at 7 millivolts. Pacing impedance for the right ventricular lead is 630 ohms. Capture threshold is 1 volt at 0.4 milliseconds. Job ID: [id number] DocumentID: [id number] Dictated Date: 08/31/2019 12:11:22 Permit Review Assistant Date: 08/31/2019 13:56:34 Dictated By: SAMUEL GANDHI MD, MA, FACP, FACC,
--- NOTE | 2019-08-31 14:25 | NUR ---
HAS HAD CRACKER AND PEEANUT BUTTER TWO DIFFERENT TIMES, WE ARE TRYINGG TO GET HER A LUNCH TRAY NOW. UP TO BSC X 2 SINCE ARRIVAL TO VOID. SPEECH IS CLEAR, MOVES ALL EXTREMITIES WELL. PACER HAS NOT KICKED IN YET.APPOINTMENTS MADE X3 FOR FOLLOW UP IN DR GANDHI'S OFFICE. PT MAY BE DISCHARGED AT 1545 PM. NO REDNESS OR EDEMA AT OPERATIVE SITE ON LEFT UPPER CHEST. NO DRAINAGE.
== END 2019-08-31 15:45 | disposition home or self-care (01) ==
LOC: CATH 08:15 → SDC 12:35 → CATH 15:45
PROVIDERS: ATTEND Internal Medicine Cardiovascular Disease
DX: R00.1 Bradycardia, unspecified (principal); R07.89 Other chest pain; I25.2 Old myocardial infarction; I70.219 Atherosclerosis of native arteries of extremities with intermittent claudication, unspecified extremity; I51.9 Heart disease, unspecified; B20 Human immunodeficiency virus [HIV] disease; K29.50 Unspecified chronic gastritis without bleeding; J44.9 Chronic obstructive pulmonary disease, unspecified; E11.9 Type 2 diabetes mellitus without complications; F17.210 Nicotine dependence, cigarettes, uncomplicated; Z90.49 Acquired absence of other specified parts of digestive tract; Z80.0 Family history of malignant neoplasm of digestive organs; Z80.1 Family history of malignant neoplasm of trachea, bronchus and lung; Z82.3 Family history of stroke
CPT/HCPCS: 33228; 80053; 80061; 85027; 85610; 85730; 87081; C1785; 36415

== ENCOUNTER → 2020-03-02 | Outpatient (CLI) | payer MEDICARE, MEDICAID ==
[~2020-03-02] MED LIST changes: +ACET325C7 PO; +CARI1.5C PO; +CATHETER FLUSH 10 ML SYR IV PRN; +CEFU500T63 PO; +ESTR2TAB4 PO; +FERR325T24 PO; +HOLD METFORMIN - RECEIVED CONTRAST 20 ML VIAL IV SCH; +IOHEXOL 350 MG/ML 100 ML (OMNIPAQUE 350) VIAL IV ONE; +MIRT30TA6 PO; -MONT10TA26 PO; +MONT10TA97 PO; +MULT-567 PO; -MULT1TAB69 PO; +NS 100 ML (IVPB) BAG IV ONE; +PARO-49 PO; +PROP10TA8 PO; +VITA1CAP19 PO
[2020-03-02 07:40] LABS: BUN/CREATININE RATIO 17; CREATININE SERUM 0.84 MG/DL (0.60-1.30); GFR ESTIMATED > 60
--- NOTE | 2020-03-02 08:56 | Diagnostic Imaging Report ---
PROCEDURE: CT chest with contrast only. TECHNIQUE: Multiple contiguous axial images were obtained through the chest after administration of intravenous contrast. Auto Exposure Controls were utilized during the CT exam to meet ALARA standards for radiation dose reduction. INDICATION: Dyspnea. Comparison with 01/29/2019 CT chest. FINDINGS: There is good opacification of aorta and pulmonary arteries which appear normal. The lungs are well-aerated. A small area of bronchiectasis has developed within the lingula since the previous exam. No masses have developed. No mediastinal or hilar adenopathy. No interstitial infiltrates have developed. No pleural effusion or pericardial effusion. The adrenal glands are not enlarged. There is a small hiatal hernia present. No blastic or lytic bony changes. IMPRESSION: 1. There has been development of a small focal area of bronchiectasis along the lingula since previous exam. 2. No consolidated infiltrates or significant interstitial lung disease demonstrated. Dictated by: Dictated on workstation # [id number]
== END ==
LOC: RAD 08:15
PROVIDERS: ATTEND Nurse Practitioner Family
DX: R06.00 Dyspnea, unspecified (principal); J47.9 Bronchiectasis, uncomplicated
CPT/HCPCS: 36415; 71260; 82565; 84520

== ENCOUNTER 2020-04-11 05:33 | Outpatient (RCR) | payer MEDICARE, MEDICAID | END 2020-04-11 09:48 | disposition home or self-care (01) | LOC: PREOP 05:33 | PROVIDERS: ATTEND Internal Medicine Critical Care Medicine | DX: Z01.812 Encounter for preprocedural laboratory examination (principal); Z20.822 Contact with and (suspected) exposure to COVID-19 | CPT/HCPCS: 87635 ==

== ENCOUNTER → 2020-04-11 | Outpatient (CLI) | payer MEDICARE, MEDICAID ==
[~2020-04-11] MED LIST changes: -CATHETER FLUSH 10 ML SYR IV PRN; -HOLD METFORMIN - RECEIVED CONTRAST 20 ML VIAL IV SCH; -IOHEXOL 350 MG/ML 100 ML (OMNIPAQUE 350) VIAL IV ONE; -NS 100 ML (IVPB) BAG IV ONE; -PLEC3TAB PO; +PLEC3TAB2 PO
== END ==
LOC: LABNPT 06:59
PROVIDERS: ATTEND Internal Medicine Critical Care Medicine
DX: Z01.812 Encounter for preprocedural laboratory examination (principal); Z53.9 Procedure and treatment not carried out, unspecified reason

== ENCOUNTER 2020-04-13 06:56 | Day surgery (SDC) | payer MEDICARE, MEDICAID ==
[~2020-04-13] VITALS: Ht 165.1 cm; Wt 90.0 kg
[2020-04-13] VITALS (11 sets, daily range): BP systolic 87–122; BP diastolic 52–66
[~2020-04-13 06:56] MED LIST changes: -CIPR500T4 PO; +CIPR500T5 PO; +MONT10TA32 PO; -MONT10TA97 PO
[2020-04-13] MEDS ORDERED: LIDOCAINE JELLY 2% 6 ML SYRINGE MM ONE (06:57)
[2020-04-13] MEDS ORDERED: NS IV 500 ML 500 ML ONE (07:00)
[2020-04-13] MEDS ORDERED: NS IV 500 ML 500 ML IV PRN (07:15)
[2020-04-13] MEDS ORDERED: MIDAZOLAM 5 MG/5 ML (VERSED) VIAL ONE ×2 (07:27)
[2020-04-13] MEDS ORDERED: fentaNYL INJECTION 100 MCG/2 ML AMP ONE ×2 (07:27)
[2020-04-13] MEDS ORDERED: LIDOCAINE PF 1% 2 ML AMP IJ ONE (08:35)
[2020-04-13] MEDS ORDERED: LIDOCAINE PF 2% 5 ML (XYLOCAINE) VIAL INJ ONE (08:35)
[2020-04-13] MEDS ORDERED: fentaNYL INJECTION 100 MCG/2 ML AMP IVP ONE (08:45)
[2020-04-13] MEDS ORDERED: MIDAZOLAM 5 MG/5 ML (VERSED) VIAL IV ONE (08:45)
--- NOTE | 2020-04-13 08:50 | Diagnostic Imaging Report ---
HISTORY: Post bronchoscopy TECHNIQUE: Frontal view of the chest. COMPARISON: 11/11/2018 FINDINGS: Lung volumes are large. No focal consolidation is seen. There is no pleural effusion or pneumothorax. The cardiac silhouette is normal in size. The left-sided pacemaker leads are in expected position. IMPRESSION: 1. No acute pulmonary abnormality. Dictated by: Dictated on workstation # [id number]
--- NOTE | 2020-04-13 08:57 | Pulmonary Procedures ---
Pulmonary Procedures Date of Procedure Date of Service: Apr 13, 2020 Bronch Bronchoscopy with bronchoalveolar lavage (BAL), Bilateral bronchial washes. Preop D bronchiectasis and mucous plugging Postop DX: same Complications: none After informed consent obtained and formal time out pt was sedated using Fentanyl and Versed. Bronchoscope was advanced through the nare and vocal cords. 1% lidocaine was used to anesthetize vocal cords, epiglottis, chiquita, and left/right main stem bronchus. An anatomical tour was undertaken down to the segmental bronchi bilaterally. No endobronchial lesions noted. bronchoalveolar lavage (BAL), Bilateral bronchial washes were obtained. Pt tolerated procedure well. No complications noted. Stat CXR is pending. TIFFANIE CARDONA DO Apr 13, 2020 08:57
--- NOTE | 2020-04-13 08:58 | Pre-Op Note & Conscious Sedat ---
Pre-Operative Progress Note H&P Reviewed The H&P was reviewed, patient examined and no changes noted. Date H&P Reviewed: Apr 13, 2020 Time H&P Reviewed: 07:30 Conscious Sedation Pre-Proced Time 07:30 ASA Score 3 For ASA 3 and 4: Consider anesthesia and medical clearance. Also, for patients with a history of failed moderate sedation consider anesthesia. Airway Lungs Heart ASA score ASA 1: a normal healthy patient ASA 2: a patient with a mild systemic disease (mid diabetes, controlled hypertension, obesity ASA 3: a patient with a severe systemic disease that limits activity (angina, COPD, prior Myocardial infarction) ASA 4: a patient with an incapacitating disease that is a constant threat to life (CHF, renal failure) ASA 5: a moribund patient not expected to survive 24 hrs. (ruptured aneurysm) ASA 6: a declared brain- patient whose organs are being harvested. For emergent operations, add the letter E after the classification Mallampati Classification Grade 3 Sedation Plan Analgesia, Amnesia, Plan communicated to team members, Discussed options with patient/fam, Discussed risks with patient/fam The patient is an appropriate candidate to undergo the planned procedure, sedation, and anesthesia. The patient immediately re-assessed prior to indication. TIFFANIE CARDONA DO Apr 13, 2020 08:58
--- NOTE | 2020-04-13 08:58 | Progress Note-Pre Operative ---
Pre-Operative Progress Note H&P Reviewed The H&P was reviewed, patient examined and no changes noted. Time Seen by Provider: 07:30 Date H&P Reviewed: Apr 13, 2020 Time H&P Reviewed: 07:30 Pre-Operative Diagnosis: mucous plugging TIFFANIE CARDONA DO Apr 13, 2020 08:58
== END 2020-04-13 09:25 | disposition home or self-care (01) ==
LOC: ENDO 06:56
PROVIDERS: ATTEND Internal Medicine Critical Care Medicine
DX: J47.9 Bronchiectasis, uncomplicated (principal); T17.590A Other foreign object in bronchus causing asphyxiation, initial encounter; J45.909 Unspecified asthma, uncomplicated; F17.210 Nicotine dependence, cigarettes, uncomplicated; E66.9 Obesity, unspecified; Z68.33 Body mass index [BMI] 33.0-33.9, adult; Z79.51 Long term (current) use of inhaled steroids; Z79.899 Other long term (current) drug therapy; Z80.0 Family history of malignant neoplasm of digestive organs; Z80.1 Family history of malignant neoplasm of trachea, bronchus and lung
CPT/HCPCS: 71045; 87015; 87070; 87101; 87116; 87205; 87206; 94640

== ENCOUNTER 2020-07-06 16:54 | Emergency (ER) | payer MEDICARE, MEDICAID ==
[~2020-07-06] VITALS: Ht 162.5 cm; Wt 72.2 kg
[2020-07-06 18:17] LABS: BASOPHILS % (AUTO) 1 % (0-10); EOSINOPHILS # (AUTO) 0.2 10^3/uL (0.0-0.3); EOSINOPHILS % (AUTO) 3 % (0-10); HEMATOCRIT 46 % (35-52); HEMOGLOBIN 15.2 g/dL (11.5-16.0); LYMPHOCYTES # (AUTO) 1.9 10^3/uL (1.0-4.0); LYMPHOCYTES % (AUTO) 28 % (12-44); MEAN CORPUSCULAR HEMOGLOBIN 31 pg (25-34); MEAN CORPUSCULAR HGB CONC 33 g/dL (32-36); MEAN CORPUSCULAR VOLUME 94 fL (80-99); MEAN PLATELET VOLUME 11.4 fL (9.0-12.2); MONOCYTES # (AUTO) 0.9 10^3/uL (0.0-1.0); MONOCYTES % (AUTO) 13 % (0-12); NEUTROPHILS # (AUTO) 3.7 10^3/uL (1.8-7.8); NEUTROPHILS % (AUTO) 55 % (42-75); PLATELET COUNT 220 10^3/uL (130-400); WHITE BLOOD COUNT 6.8 10^3/uL (4.3-11.0)
[2020-07-06 18:30] LABS: CHLORIDE 103 MMOL/L (98-107); POTASSIUM 4.1 MMOL/L (3.6-5.0); SODIUM 138 MMOL/L (135-145)
[2020-07-06 18:31] LABS: CALCIUM 9.1 MG/DL (8.5-10.1)
[2020-07-06 18:32] VITALS: BP_SYST 90; BP_SYST 99; BP_DIAS 64; BP_DIAS 70; BP_DIAS 74
[2020-07-06 18:32] LABS: GLUCOSE 94 MG/DL (70-105); TOTAL PROTEIN 6.8 GM/DL (6.4-8.2)
[2020-07-06 18:33] LABS: CARBON DIOXIDE 23 MMOL/L (21-32)
[2020-07-06 18:34] LABS: BILIRUBIN,TOTAL 0.3 MG/DL (0.1-1.0)
--- NOTE | 2020-07-06 18:35 | ED Cough/URI ---
General Chief Complaint: Respiratory Problems Stated Complaint: DX W/ PNEUMONIA/COUGHING/SOB Nursing Triage Note: PT STATES SHE HAS BEEN DX WITH PNEUMONIA OVER A WEEK AGO AND IS ON HER SECOND RX OF ANTIBIOTICS, HAS FINISHED RX OF PREDNISONE, BUT HAS HAD INCREASED SHORTNESS OF BREATH AND CHEST WALL PAIN. Sepsis Screen: No Definite Risk Source: patient Exam Limitations: no limitations History of Present Illness Date Seen by Provider: Jul 06, 2020 Time Seen by Provider: 17:48 Initial Comments Patient presents ER by private conveyance from home with chief complaint last 3 to 4 weeks she has had upper respiratory symptoms with cough productive of green sputum occasional chills lately. She did a full course of Augmentin, prednisone and azithromycin for 5 days. She was done with a steroid about 1 week ago. [facility] and was told at that time if she still was not feeling good to go to the ER. She has had a chest x-ray as well as negative Covid and flu swabs. She has a history of AIDS and she thinks about [address] Awa Prabhakar said her CD4 count was around 300. She is still taking her anti-HIV therapy. She has a pacemaker placed many years ago followed by Dr. Gates. She is having some chest pain on deep inspiration for the past couple days up under her left breast. Quit smoking 20 days ago. Last use of IV methamphetamines was 4 years ago. Allergies and Home Medications Allergies Coded Allergies: No Known Drug Allergies (Unverified , 03/10/16) Home Medications Acetaminophen 325 Mg Capsule, 650 MG PO Q6H PRN for PAIN-MODERATE (5-7) Prescribed by: SAMUEL GANDHI on 08/31/19 1227 Bictegrav/Emtricit/Tenofov Ala 1 Each Tablet, 1 TAB PO HS, (Reported) Cariprazine Hydrochloride 1.5 Mg Capsule, 1.5 MG PO DAILY, (Reported) Cefuroxime Axetil 500 Mg Tablet, 500 MG PO BID Prescribed by: SAMUEL GANDHI on 08/31/19 1226 Cholecalciferol (Vitamin D3) 2,000 Unit Tablet, 2,000 UNIT PO DAILY, (Reported) Cyclobenzaprine HCl 10 Mg Tablet, 10 MG PO BID PRN for PAIN-MODERATE (5-7), (Reported) Estradiol 2 Mg Tablet, 2 MG PO DAILY, (Reported) Ferrous Sulfate 325 Mg Tablet, 325 MG PO DAILY, (Reported) Mirtazapine 30 Mg Tablet, 30 MG PO HS, (Reported) Multivitamin 1 Each Tablet, 1 TAB PO DAILY, (Reported) Omeprazole 40 Mg Capsule.dr, 40 MG PO DAILY, (Reported) Paroxetine HCl 20 Mg Tablet, 20 MG PO DAILY, (Reported) Plecanatide 3 Mg Tablet, 3 MG PO DAILY, (Reported) Propranolol HCl 10 Mg Tablet, 10 MG PO BID PRN for ANXIETY, (Reported) Vitamin B Complex 1 Each Capsule, 1 EACH PO DAILY, (Reported) Patient Home Medication List Home Medication List Reviewed: Yes Review of Systems Review of Systems Constitutional: chills; No diaphoresis (1 days today on his breakfast pizza to discuss); fever EENTM: No ear discharge, No ear pain Respiratory: cough, phlegm, short of breath; No wheezing Cardiovascular: No edema, No Hx of Intervention, No palpitations Gastrointestinal: No abdominal pain, No constipation, No diarrhea Genitourinary: No decreased output, No dysuria Musculoskeletal: No back pain, No joint pain All Other Systems Reviewed Negative Unless Noted: Yes Past Vapogdx-Ccjdig-Jmvrgd Hx Patient Social History Alcohol Use: Denies Use Drug of Choice: HX meth, cannibus Smoking Status: Former Smoker Type Used: Cigarettes Former Smoker, Quit: Jun 16, 2020 2nd Hand Smoke Exposure: No Recent Infectious Disease Expo: No Recent Hopitalizations: No Immunizations Up To Date Tetanus Booster (TDap): Unknown Date of Pneumonia Vaccine: Jan 28, 2018 Date of Influenza Vaccine: Dec 21, 2018 Seasonal Allergies Seasonal Allergies: No Past Medical History Surgeries: Yes (GASTRIC BYPASS, ABDOMINOPLASTY; HERNIA REPAIR) Abdominal, Adenoidectomy, Section, Gallbladder, Orthopedic, Pacemaker, Tonsillectomy Respiratory: No COPD Currently Using CPAP: No Cardiac: Yes (PACEMAKER FOR BRADYCARDIA) Neurological: No Vertigo Reproductive Disorders: No Sexually Transmitted Disease: No HIV/AIDS: Yes Genitourinary: Yes Kidney Infection, Kidney Stones Gastrointestinal: Yes Gastroesophageal Reflux, Chronic Constipation, Hiatal Hernia, Ulcer, Gall Bladder Disease Musculoskeletal: No Endocrine: No HEENT: No Cancer: No Psychosocial: Yes ADD/ADHD, Anxiety, PTSD, Bipolar, Depression Integumentary: No Blood Disorders: Yes (hiv POS) Adverse Reaction/Blood Tranf: No Family Medical History No Pertinent Family Hx Physical Exam Vital Signs - First Documented 4/22/21 17:50 Temp 36.0 Pulse 60 Resp 18 B/P (MAP) 99/50 (66) Pulse Ox 100 O2 Delivery Room Air Capillary Refill : Less Than 3 Seconds Height: 5'4.00" Weight: 203lbs. 1.6oz. [id number]; 27.00 BMI Method:Stated General Appearance: WD/WN, no apparent distress Eyes: Bilateral Eye Normal Inspection, Bilateral Eye PERRL, Bilateral Eye EOMI HEENT: PERRL/EOMI, pharynx normal Neck: full range of motion, normal inspection Respiratory: lungs clear, normal breath sounds, no respiratory distress (Oxygen saturations 100% on room air nonlabored breathing), no accessory muscle use Cardiovascular: normal peripheral pulses, regular rate, rhythm Gastrointestinal: normal bowel sounds, non tender, soft Neurologic/Psychiatric: alert, normal mood/affect, oriented x 3 Skin: normal color, warm/dry Progress/Results/Core Measures Suspected Sepsis Recent Fever Within 48 Hours: No Infection Criteria Present: Documented Infection New/Unexplained Altered Menta: No Sepsis Screen: No Definite Risk SIRS Temperature: Pulse: 60 Respiratory Rate: 18 Laboratory Tests 07/06/20 18:03: White Blood Count 6.8 Blood Pressure 99 /50 Mean: 66 Laboratory Tests 07/06/20 18:03: Creatinine 0.78, Platelet Count 220, Total Bilirubin 0.3 Results/Orders Lab Results Laboratory Tests Test 07/06/20 18:03 Range/Units White Blood Count 6.8 4.3-11.0 10^3/uL Red Blood Count 4.88 3.80-5.11 10^6/uL Hemoglobin 15.2 11.5-16.0 g/dL Hematocrit 46 35-52 % Mean Corpuscular Volume 94 80-99 fL Mean Corpuscular Hemoglobin 31 25-34 pg Mean Corpuscular Hemoglobin Concent 33 32-36 g/dL Red Cell Distribution Width 13.2 10.0-14.5 % Platelet Count 220 130-400 10^3/uL Mean Platelet Volume 11.4 9.0-12.2 fL Immature Granulocyte % (Auto) 0 % Neutrophils (%) (Auto) 55 42-75 % Lymphocytes (%) (Auto) 28 12-44 % Monocytes (%) (Auto) 13 H 0-12 % Eosinophils (%) (Auto) 3 0-10 % Basophils (%) (Auto) 1 0-10 % Neutrophils # (Auto) 3.7 1.8-7.8 10^3/uL Lymphocytes # (Auto) 1.9 1.0-4.0 10^3/uL Monocytes # (Auto) 0.9 0.0-1.0 10^3/uL Eosinophils # (Auto) 0.2 0.0-0.3 10^3/uL Basophils # (Auto) 0.0 0.0-0.1 10^3/uL Immature Granulocyte # (Auto) 0.0 0.0-0.1 10^3/uL D-Dimer 0.43 0.00-0.49 UG/ML Sodium Level 138 135-145 MMOL/L Potassium Level 4.1 3.6-5.0 MMOL/L Chloride Level 103 98-107 MMOL/L Carbon Dioxide Level 23 21-32 MMOL/L Anion Gap 12 5-14 MMOL/L Blood Urea Nitrogen 12 7-18 MG/DL Creatinine 0.78 0.60-1.30 MG/DL Estimat Glomerular Filtration Rate > 60 BUN/Creatinine Ratio 15 Glucose Level 94 70-105 MG/DL Calcium Level 9.1 8.5-10.1 MG/DL Corrected Calcium 9.1 8.5-10.1 MG/DL Total Bilirubin 0.3 0.1-1.0 MG/DL Aspartate Amino Transf (AST/SGOT) 14 5-34 U/L Alanine Aminotransferase (ALT/SGPT) 16 0-55 U/L Alkaline Phosphatase 89 40-136 U/L Troponin I < 0.028 <0.028 NG/ML C-Reactive Protein High Sensitivity 1.52 H 0.00-0.50 MG/DL B-Type Natriuretic Peptide < 10.0 <100.0 PG/ML Total Protein 6.8 6.4-8.2 GM/DL Albumin 4.0 3.2-4.5 GM/DL My Orders Orders - PING BEAVER Orthostatic Vital Signs (Adult (07/06/20 18:29) Vital Signs/I&O 07/06/20 07/06/20 17:50 18:32 Temp 36.0 Pulse 60 61 65 70 Resp 18 B/P (MAP) 99/50 (66) 99/64 (76) 99/74 (82) 90/70 (77) Pulse Ox 100 O2 Delivery Room Air Capillary Refill : Less Than 3 Seconds Blood Pressure Mean: 66 Progress Note : Time: 18:33 Progress Note Her vitals are stable and her blood pressure is a little soft 93/60 so were going to do some orthostatic vital signs give her some IV fluids check some labs EKG and a troponin. Suspect her chest pain is pleuritic in nature. We will get a two-view chest x-ray. D-dimer. ECG Initial ECG Impression Date: Jul 06, 2020 Initial ECG Impression Time: 18:21 Initial ECG Rate: 60 Initial ECG Rhythm: Normal Sinus Initial ECG Intervals: Normal Initial ECG Impression: Normal Comment Normal sinus rhythm without clinically relevant ST changes. Incomplete left bundle branch block Diagnostic Imaging Diagonstic Imaging: Xray Plain Films/CT/US/NM/MRI: chest (2v) Comments NAME: BOBBY FUNES [employer] REC#: [id number] PT STATUS: REG ER : 1970 PHYSICIAN: SHILOH JIM [employer] SCIENCE CHAIR ADMIT DATE: 07/06/20/ER Signed Date of Exam:07/06/20 CHEST PA/LAT (2 VIEW) EXAMINATION: Chest 2 view. HISTORY: Cough, pneumonia. COMPARISON: Chest radiograph 04/13/2020. FINDINGS: Heart size is normal. Stable left-sided pacemaker. Pulmonary vasculature is normal. There are minimal interstitial opacities within the lung bases. No new consolidation, pleural effusion or pneumothorax. Calcifications of the aorta. The osseous structures are intact. IMPRESSION: Minimal bibasilar interstitial opacities which can be seen with atelectasis, atypical infection or pulmonary edema. Dictated by: Dictated on workstation # [id number] Dict: 07/06/201844 Trans: 07/06/201858 [facility] [id number] Interpreted by: RENETTA JORGENSEN DO Electronically signed by: RENETTA JORGENSEN DO 07/06/201858 Reviewed: Reviewed by Me Departure Impression Primary Impression: Atypical pneumonia Disposition: 01 HOME, SELF-CARE Condition: Stable Departure-Patient Inst. Decision time for Depature: 19:03 Referrals: [facility] (PCP) Primary Care Physician RON LEO (Family) Primary Care Physician Patient Instructions: Pneumonia, Adult (DC) Add. Discharge Instructions: I suspect you have a pneumonia that is resistant to the antibiotics you have been given. Plan to have you follow-up with your primary care provider in the next week for recheck. Rocephin 1 g shot at outpatient center every day for the next week. Doxycycline 1 tablet twice a day for the next 10 days. Probiotics 1 tablet twice a day for the next 10 days. Drink more fluids. All discharge instructions reviewed with patient and/or family. Voiced understanding. Scripts L.acidoph & Paracasei,B.lactis (Probiotic) 1 Each Capsule 1 EACH PO BID for 10 Days, #20 CAP 0 Refills Prov: PING BEAVER 07/06/20 Doxycycline Hyclate (Doxycycline Hyclate) 100 Mg Tablet 100 MG PO BID for 10 Days, #20 TAB 0 Refills Prov: PING BEAVER 07/06/20 PING BEAVER Jul 06, 2020 18:35
[2020-07-06 18:36] LABS: ALKALINE PHOSPHATASE 89 U/L (40-136); CREATININE SERUM 0.78 MG/DL (0.60-1.30); GFR ESTIMATED > 60
[2020-07-06 18:37] LABS: BUN/CREATININE RATIO 15
[2020-07-06 18:39] LABS: ALANINE AMINOTRANSFERASE 16 U/L (0-55)
[2020-07-06] MEDS ORDERED: NS IV 1000 ML 1,000 ML IV SCH (18:45)
--- NOTE | 2020-07-06 18:49 | Diagnostic Imaging Report ---
EXAMINATION: Chest 2 view. HISTORY: Cough, pneumonia. COMPARISON: Chest radiograph 04/13/2020. FINDINGS: Heart size is normal. Stable left-sided pacemaker. Pulmonary vasculature is normal. There are minimal interstitial opacities within the lung bases. No new consolidation, pleural effusion or pneumothorax. Calcifications of the aorta. The osseous structures are intact. IMPRESSION: Minimal bibasilar interstitial opacities which can be seen with atelectasis, atypical infection or pulmonary edema. Dictated by: Dictated on workstation # [id number]
[2020-07-06] MEDS ORDERED: DOXY100T2 PO (19:14)
[2020-07-06] MEDS ORDERED: L.AC1CAP6 PO (19:14)
[2020-07-06] MEDS ORDERED: cefTRIAXone FOR IV USE 1,000 MG in WATER (STERILE) FOR INJECTION 10 ML IV ONE (19:30)
[2020-07-06 19:37] VITALS: BP 104/74
== END 2020-07-06 19:37 | disposition home or self-care (01) ==
LOC: EDUNIT# 16:54 → ER 16:56
DX: J18.9 Pneumonia, unspecified organism (principal); J44.9 Chronic obstructive pulmonary disease, unspecified; K21.9 Gastro-esophageal reflux disease without esophagitis; F31.9 Bipolar disorder, unspecified; F41.9 Anxiety disorder, unspecified; Z87.891 Personal history of nicotine dependence
CPT/HCPCS: 36415; 71046; 80053; 83880; 84484; 85025; 85379; 86141; 86738; 87040; 93005

== ENCOUNTER 2020-07-13 16:11 | Outpatient (RCR) | payer MEDICARE, MEDICAID ==
[2020-07-07 14:27] VITALS: BP 103/63
[2020-07-07] MEDS: cefTRIAXone 1,000 MG/2.86 ml vial (IM ONLY) IM SCH (14:47)
[2020-07-07] MEDS: LIDOCAINE 1% INJ 20 ML 20 ML VIAL INJ SCH (14:48)
[2020-07-08 09:15] VITALS: BP 102/72
[2020-07-08] MEDS: cefTRIAXone 1,000 MG/2.86 ml vial (IM ONLY) IM SCH (09:34)
[2020-07-08] MEDS: LIDOCAINE 1% INJ 20 ML 20 ML VIAL INJ SCH (09:34)
[2020-07-09] MEDS: cefTRIAXone 1,000 MG/2.86 ml vial (IM ONLY) IM SCH (09:10)
[2020-07-09] MEDS: LIDOCAINE 1% INJ 20 ML 20 ML VIAL INJ SCH (09:10)
[2020-07-09 09:15] VITALS: BP 106/67
[2020-07-10 10:37] VITALS: BP 94/62
[2020-07-10] MEDS: cefTRIAXone 1,000 MG/2.86 ml vial (IM ONLY) IM SCH (11:05)
[2020-07-10] MEDS: LIDOCAINE 1% INJ 20 ML 20 ML VIAL INJ SCH (11:06)
[2020-07-11] MEDS: cefTRIAXone 1,000 MG/2.86 ml vial (IM ONLY) IM SCH (11:09)
[2020-07-11] MEDS: LIDOCAINE 1% INJ 20 ML 20 ML VIAL INJ SCH (11:09)
[2020-07-11 11:10] VITALS: BP 100/61
[2020-07-12 10:30] VITALS: BP 104/64
[2020-07-12] MEDS: LIDOCAINE 1% INJ 20 ML 20 ML VIAL INJ SCH (10:59)
[2020-07-12] MEDS: cefTRIAXone 1,000 MG/2.86 ml vial (IM ONLY) IM SCH (11:00)
[~2020-07-13] VITALS: Wt 72.2 kg
[~2020-07-13 16:11] MED LIST changes: +DOXY100T2 PO; +L.AC1CAP6 PO
[2020-07-13] MEDS: cefTRIAXone 1,000 MG/2.86 ml vial (IM ONLY) IM SCH (16:30)
[2020-07-13] MEDS: LIDOCAINE 1% INJ 20 ML 20 ML VIAL INJ SCH (16:31)
[2020-07-13 16:33] VITALS: BP 110/59
== END 2020-07-13 16:30 | disposition home or self-care (01) ==
LOC: SDC 16:11
PROVIDERS: ATTEND Emergency Medicine
DX: J18.9 Pneumonia, unspecified organism (principal)
CPT/HCPCS: 96372; 96374

== ENCOUNTER → 2020-08-01 | Outpatient (CLI) | payer MEDICARE, MEDICAID | LOC: RAD 15:14 | PROVIDERS: ATTEND Nurse Practitioner Family | DX: Z12.31 Encounter for screening mammogram for malignant neoplasm of breast (principal) ==

== ENCOUNTER → 2020-08-10 | Outpatient (CLI) | payer MEDICARE, MEDICAID ==
--- NOTE | 2020-08-10 15:11 | Diagnostic Imaging Report ---
INDICATION: Fullness in the upper outer left breast. Correlation is made with prior mammograms from 06/11/2019. 2-D and 3-D bilateral diagnostic mammography was performed with CAD. Scattered fibroglandular densities are identified bilaterally. There are benign calcifications in both breasts. No mass or malignant appearing microcalcifications are seen. Pacemaker battery pack in the left axilla is noted. IMPRESSION: BI-RADS Category 0 No mammographic features suspicious for malignancy are identified. Even so, directed sonographic interrogation of the area of fullness in the upper outer left breast is recommended and will be performed today. ACR BI-RADS Category 0: Incomplete. (Needs additional imaging evaluation). Result letter will be mailed to the patient. Note: At least 10% of breast cancer is not imaged by mammography. Dictated by: Dictated on workstation # [id number]
--- NOTE | 2020-08-10 15:14 | Diagnostic Imaging Report ---
INDICATION: Left breast fullness. Correlation is made with diagnostic mammogram earlier the same day. Sonographic interrogation of the area of fullness upper outer left breast was performed. No sonographic abnormality is identified. No solid or cystic masses detected. IMPRESSION: BI-RADS Category 1 No sonographic abnormality is detected. Continued close clinical and self breast exams recommended to confirm stability of the area of palpable abnormality. ACR BI-RADS Category 1: Negative. Result letter will be mailed to the patient. Note: At least 10% of breast cancer is not imaged by mammography. Dictated by: Dictated on workstation # [id number]
== END ==
LOC: RAD 13:15
PROVIDERS: ATTEND Internal Medicine Rheumatology
DX: N64.4 Mastodynia (principal)
CPT/HCPCS: 76642; 77066; G0279; 77062

== ENCOUNTER → 2020-09-29 | Outpatient (CLI) | payer MEDICARE, MEDICAID ==
[~2020-09-29] MED LIST changes: +MIRT-69 PO; -MIRT30TA6 PO; -OMEP40CA27 PO; +OMEP40CA6 PO; -SULF1TAB35 PO; +SULF1TAB38 PO
== END ==
LOC: CARD 10:05
PROVIDERS: ATTEND Internal Medicine Cardiovascular Disease
DX: I51.7 Cardiomegaly (principal); R55 Syncope and collapse
CPT/HCPCS: 93306

== ENCOUNTER → 2020-10-04 | Outpatient (CLI) | payer MEDICARE, MEDICAID | LOC: LABNPT 04:47 | PROVIDERS: ATTEND Orthopaedic Surgery | DX: Z01.812 Encounter for preprocedural laboratory examination (principal); U07.1 COVID-19 | CPT/HCPCS: 87635 ==

== ENCOUNTER → 2020-10-24 | Outpatient (CLI) | payer MEDICARE, MEDICAID | LOC: RT 09:46 | PROVIDERS: ATTEND Nurse Practitioner Family | DX: R06.00 Dyspnea, unspecified (principal) | CPT/HCPCS: 94010; 94726; 94729 ==

== ENCOUNTER 2020-10-27 05:36 | Outpatient (CLI) | payer MEDICARE, MEDICAID ==
[~2020-10-27] VITALS: Ht 162.5 cm; Wt 76.4 kg
== END 2020-10-27 10:00 | disposition home or self-care (01) ==
LOC: PREOP 05:36 → EDSTATUS 08:30 → PREOP 10:00
PROVIDERS: ATTEND Internal Medicine
DX: Z01.818 Encounter for other preprocedural examination (principal)

== ENCOUNTER 2020-11-03 07:31 | Day surgery (SDC) | payer MEDICARE, MEDICAID ==
--- NOTE | 2020-10-12 06:18 | HISTORY AND PHYSICAL ---
DATE OF SERVICE: EGD HISTORY AND PHYSICAL She is referred by Dr. Mak Pineda of [facility]. HISTORY OF PRESENT ILLNESS: The patient is a 49-year-old white female referred for EGD evaluation for the evaluation of dysphagia worse over the past 2 months, predominantly to solids. She reports that she has been having reflux at night despite taking omeprazole in the morning and has had significant increase in Tums, which improved her symptoms. She has not had any associated weight loss, abdominal pain but does report some chest pain with a sensation of food sticking. She has had no melena or bright red blood per rectum. PAST MEDICAL HISTORY: Significant for gastric bypass surgery 15 years ago. Originally, her weight was in the upper 200 range, she is down to 168 currently. She has a history of osteoarthritis. PAST SURGICAL HISTORY: Significant for pacemaker for symptomatic bradycardia with no known history of coronary artery disease, gastric bypass surgery as mentioned above, tonsillectomy and adenoidectomy, ventral hernia repair and cholecystectomy. She accomplished colonoscopy in 2019 with no evidence for reported neoplasia. FAMILY HISTORY: Pertinent for colon cancer in her mother diagnosed in her 40s. REVIEW OF SYSTEMS: CONSTITUTIONAL: The patient denies night sweats, chills, fever or weight loss. PULMONARY: The patient denies cough, dyspnea on exertion or wheezing. CARDIOVASCULAR: Denies syncope, presyncope, orthopnea, PND, pedal edema. GASTROINTESTINAL: As noted in the HPI. SOCIAL HISTORY: She has no significant past alcohol intake or reported smoking history. PHYSICAL EXAMINATION: GENERAL: Reveals a pleasant white female, did not appear to be in acute distress. VITAL SIGNS: Weight 168. Blood pressure 100/62. HEENT: Unremarkable. Sclerae nonicteric. CHEST: Clear to auscultation. CARDIOVASCULAR: Reveals regular rate and rhythm without murmur, S3 or S4. ABDOMEN: Soft, supple without mass or organomegaly. She does have some mild epigastric discomfort to palpation. No rebound or guarding is noted. Anderson sign is negative. Bowel sounds are positive. No bruits noted. No mass appreciated. EXTREMITIES: Reveal no cyanosis, clubbing or edema. ASSESSMENT AND PLAN: The patient is set up for EGD evaluation for dysphagia. The procedure was discussed as well as possibility of need for dilatation. Job ID: [id number] DocumentID: [id number] Dictated Date: 09/28/2020 17:43:48 Loss Prevention Agent Date: 09/28/2020 18:01:02 Dictated By: ANNIE RUIZ MD MTDD
[~2020-11-03] VITALS: Ht 162.5 cm; Wt 76.4 kg
[2020-11-03] MEDS ORDERED: LACTATED RINGERS 1,000 ML IV ONE (07:46)
[2020-11-03] MEDS ORDERED: PROPOFOL INJECTION 0 ML IV ONE (07:50)
[2020-11-03] MEDS ORDERED: LACTATED RINGERS 1,000 ML IV STA (08:12)
[2020-11-03] MEDS ORDERED: HURRICAINE EXT TUBE (BENZOCAINE) XX PRN (08:15)
[2020-11-03] MEDS ORDERED: LIDOCAINE JELLY 2% 6 ML SYRINGE MM PRN (08:15)
[2020-11-03] MEDS ORDERED: proPOfol 200 MG/20 ML (DIPRIVAN) VIAL IV ONE (08:27)
[2020-11-03] MEDS ORDERED: HURRICAINE EXT TUBE (BENZOCAINE) ONE (08:28)
[2020-11-03] MEDS ORDERED: LIDOCAINE JELLY 2% 6 ML SYRINGE ONE (08:28)
[2020-11-03 08:45] VITALS: BP 84/51
--- NOTE | 2020-11-03 08:45 | Pre-Op Note & Conscious Sedat ---
Pre-Operative Progress Note H&P Reviewed The H&P was reviewed, patient examined and no changes noted. Date H&P Reviewed: Nov 03, 2020 Time H&P Reviewed: 07:55 Conscious Sedation Pre-Proced ASA Score 2 For ASA 3 and 4: Consider anesthesia and medical clearance. Also, for patients with a history of failed moderate sedation consider anesthesia. Airway Lungs Heart ASA score ASA 1: a normal healthy patient ASA 2: a patient with a mild systemic disease (mid diabetes, controlled hypertension, obesity ASA 3: a patient with a severe systemic disease that limits activity (angina, COPD, prior Myocardial infarction) ASA 4: a patient with an incapacitating disease that is a constant threat to life (CHF, renal failure) ASA 5: a moribund patient not expected to survive 24 hrs. (ruptured aneurysm) ASA 6: a declared brain- patient whose organs are being harvested. For emergent operations, add the letter E after the classification Mallampati Classification Grade 2 Sedation Plan Analgesia, Amnesia, Plan communicated to team members, Discussed options with patient/fam, Discussed risks with patient/fam The patient is an appropriate candidate to undergo the planned procedure, sedation, and anesthesia. The patient immediately re-assessed prior to indication. ANNIE RUIZ MD Nov 03, 2020 08:45
[2020-11-03 08:50] VITALS: BP 87/54
[2020-11-03 09:08] VITALS: BP 102/49
[2020-11-03 09:20] VITALS: BP 109/75
[2020-11-03 09:30] VITALS: BP 109/75
--- NOTE | 2020-11-03 11:48 | Anesthesia-General Post-Op ---
MAC Patient Condition Mental Status/LOC: Same as Preop Cardiovascular: Satisfactory Nausea/Vomiting: Absent Respiratory: Satisfactory Pain: Controlled Complications: Absent Post Op Complications Complications None Follow Up Care/Instructions Patient Instructions None needed. Anesthesiology Discharge Order Discharge Order Patient is doing well, no complaints, stable vital signs, no apparent adverse anesthesia problems. No complications reported per nursing. MISSY RAZA CRNA Nov 03, 2020 11:48
--- NOTE | 2020-11-03 14:30 | OPERATIVE REPORT ---
DATE OF SERVICE: EGD SUMMARY INDICATION FOR THE PROCEDURE: Dysphagia with reflux. DESCRIPTION OF PROCEDURE: The patient was placed in the left lateral decubitus position. The endoscope was inserted into the oral cavity and under direct visualization, esophagus was intubated. Endoscope was passed down the esophagus through stomach and into the second portion of the duodenum. Careful inspection was made as the endoscope was withdrawn. FINDINGS: The posterior pharynx, epiglottis, arytenoid aperture and true and false vocal folds were unremarkable to visual inspection. The proximal, mid and distal esophagus were unremarkable as well. 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 Several sutures were still present. There was no blood in the upper GI tract. The blind loop was unremarkable as well as the efferent limb into the small intestine. There was no evidence for erosive esophagitis or Villafuerte's change. 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 No evidence for obstruction is noted and there is no evidence for erosive esophagitis or Villafuerte's change. We did discuss the importance of eating more slowly with careful attention to mastication; recommend that she as it has been several years since her last period and she does not believe she has recently been anemic to hold iron. She will likely need to have a CBC and consideration for iron studies done within several months and I advised that she increase her omeprazole from daily to b.i.d. She was reassured by today's findings. I thank you for the referral. Job ID: [id number] DocumentID: [id number] Dictated Date: 11/03/2020 12:05:47 Faculty Physician Date: 11/03/2020 14:29:01 Dictated By: ANNIE RUIZ MD [facility]
== END 2020-11-03 09:30 | disposition home or self-care (01) ==
LOC: ENDO 07:31
PROVIDERS: ATTEND Internal Medicine
DX: K21.9 Gastro-esophageal reflux disease without esophagitis (principal); J44.9 Chronic obstructive pulmonary disease, unspecified; F41.9 Anxiety disorder, unspecified; F43.10 Post-traumatic stress disorder, unspecified; K44.9 Diaphragmatic hernia without obstruction or gangrene; Z79.899 Other long term (current) drug therapy
CPT/HCPCS: 84703

== ENCOUNTER → 2021-01-19 | Outpatient (CLI) | payer MEDICARE, MEDICAID ==
[~2021-01-19] MED LIST changes: +CATHETER FLUSH 10 ML SYR IV PRN; -DOXY100C2 PO; +DOXY100C5 PO; +HOLD METFORMIN - RECEIVED CONTRAST 20 ML VIAL IV SCH; +IOHEXOL 350 MG/ML 100 ML (OMNIPAQUE 350) VIAL IV ONE; +NS 100 ML (IVPB) BAG IV ONE; +SCOP1PAT10 TD; -SCOP1PAT11 TD
[2021-01-19 09:17] LABS: CREATININE SERUM 0.73 MG/DL (0.60-1.30)
--- NOTE | 2021-01-19 09:54 | Diagnostic Imaging Report ---
EXAMINATION: CT chest with intravenous contrast. TECHNIQUE: Multiple contiguous axial images were obtained through the chest after the uneventful administration of intravenous contrast. All CT scans use one or more of the following dose optimizing techniques: automated exposure control, MA and/or KvP adjustment based on patient size and exam type or iterative reconstruction. HISTORY: One-year followup. Bronchiectasis. COMPARISON: 03/02/2020. FINDINGS: The heart size is within normal limits. No pericardial effusion is present. There is no mediastinal, hilar, or axillary lymphadenopathy. Nodule is seen in the left lower lobe along the fissure measuring 0.4 cm. A nodule is seen in the left upper lobe posteriorly measuring 0.3 cm. There are no focal areas of consolidation. Stable focal bronchiectasis in the lingula. No central endobronchial obstructing lesions are identified. There is no pleural effusion or pneumothorax. The osseous structures demonstrate no acute abnormalities. Limited views of the upper abdominal structures demonstrate no acute abnormalities. The gallbladder surgically absent. Both adrenal glands are unremarkable. IMPRESSION: 1. Stable focal bronchiectasis in the lingula. 2. Benign-appearing nodules in the left upper and lower lobes measuring up to 0.4 cm. No suspicious pulmonary nodules are seen. No focal consolidations. 3. Hepatic steatosis. Dictated by: Dictated on workstation # [id number]
== END ==
LOC: RAD 10:04
PROVIDERS: ATTEND Nurse Practitioner Family
DX: J47.9 Bronchiectasis, uncomplicated (principal); R91.8 Other nonspecific abnormal finding of lung field; K76.0 Fatty (change of) liver, not elsewhere classified
CPT/HCPCS: 36415; 71260; 82565; 84520

== ENCOUNTER 2021-03-26 20:14 | Emergency (ER) | payer MEDICARE, MEDICAID ==
[~2021-03-26] VITALS: Ht 162 cm; Wt 86.0 kg
[~2021-03-26 20:14] MED LIST changes: -CATHETER FLUSH 10 ML SYR IV PRN; +CYCL10TA25 PO; -CYCL10TA9 PO; -HOLD METFORMIN - RECEIVED CONTRAST 20 ML VIAL IV SCH; -IOHEXOL 350 MG/ML 100 ML (OMNIPAQUE 350) VIAL IV ONE; +MONT-40 PO; -MONT10TA32 PO; -NS 100 ML (IVPB) BAG IV ONE
[2021-03-26] MEDS ORDERED: KETOROLAC 30 MG/ML VIAL IVP ONE (21:45)
[2021-03-26] MEDS ORDERED: LACTATED RINGERS 1,000 ML IV ONE (21:45)
[2021-03-26 21:57] LABS: BILIRUBIN,URINE NEGATIVE (NEGATIVE); CLARITY,URINE CLEAR; COLOR,URINE YELLOW; GLUCOSE, URINE (UA) NEGATIVE (NEGATIVE); KETONES,URINE NEGATIVE (NEGATIVE); LEUKOCYTE ESTERASE ,URINE NEGATIVE (NEGATIVE); NITRITE,URINE NEGATIVE (NEGATIVE); PH,URINE 5.5 (5-9); PROTEIN,URINE NEGATIVE (NEGATIVE)
[2021-03-26 21:59] LABS: BASOPHILS % (AUTO) 1 % (0-10); EOSINOPHILS # (AUTO) 0.2 10^3/uL (0.0-0.3); EOSINOPHILS % (AUTO) 5 % (0-10); HEMATOCRIT 45 % (35-52); HEMOGLOBIN 14.4 g/dL (11.5-16.0); LYMPHOCYTES # (AUTO) 1.5 10^3/uL (1.0-4.0); LYMPHOCYTES % (AUTO) 38 % (12-44); MEAN CORPUSCULAR HEMOGLOBIN 30 pg (25-34); MEAN CORPUSCULAR HGB CONC 32 g/dL (32-36); MEAN CORPUSCULAR VOLUME 94 fL (80-99); MEAN PLATELET VOLUME 11.5 fL (9.0-12.2); MONOCYTES # (AUTO) 0.7 10^3/uL (0.0-1.0); MONOCYTES % (AUTO) 18 % (0-12); NEUTROPHILS # (AUTO) 1.5 10^3/uL (1.8-7.8); NEUTROPHILS % (AUTO) 38 % (42-75); PLATELET COUNT 238 10^3/uL (130-400)
[2021-03-26 22:03] LABS: ALBUMIN 4.3 GM/DL (3.2-4.5)
[2021-03-26 22:04] LABS: POTASSIUM 4.6 MMOL/L (3.6-5.0)
--- NOTE | 2021-03-26 22:04 | Diagnostic Imaging Report ---
INDICATION: Cough COMPARISON: 04/13/2020 FINDINGS: Single view of the chest demonstrates clear lungs bilaterally. The heart is normal. There is no pneumothorax. The pacemaker is stable. Osseous structures are age-appropriate. IMPRESSION: Negative chest. Dictated by: Dictated on workstation # [id number]
[2021-03-26 22:05] LABS: CALCIUM 9.7 MG/DL (8.5-10.1)
[2021-03-26 22:08] LABS: BILIRUBIN,TOTAL 0.2 MG/DL (0.1-1.0)
[2021-03-26 22:10] LABS: CREATININE SERUM 0.77 MG/DL (0.60-1.30)
[2021-03-26 22:11] LABS: BACTERIA,URINE NEGATIVE /HPF; SQUAMOUS EPITHELIAL CELL,UR 0-2 /HPF
[2021-03-26 22:13] LABS: MAGNESIUM 1.8 MG/DL (1.6-2.4)
[2021-03-26] MEDS ORDERED: ONDA4TAB11 SL (23:42)
--- NOTE | 2021-03-26 23:43 | ED General ---
General Chief Complaint: COVID19 Suspect/Confirmed Stated Complaint: BODY ACHES,SOB,CONGESTION,HEADACHE Nursing Triage Note: Patient ambulatory to ER with c/o cough, body aches, shortness of breath, chills, headache and difficulty tasting food x 3 days Source of Information: Patient Exam Limitations: No Limitations History of Present Illness Date Seen by Provider: Mar 26, 2021 Time Seen by Provider: 20:35 Initial Comments HIV positive on antiviral therapy Allergies and Home Medications Allergies Coded Allergies: No Known Drug Allergies (Unverified , 03/10/16) Patient Home Medication List Bictegrav/Emtricit/Tenofov Ala (Biktarvy 50-200-25 mg Tablet) 1 Each Tablet, 1 TAB PO HS, (Reported) Entered as Reported by: MICHAEL BARILLAS on 11/11/18 1607 Cariprazine Hydrochloride (Vraylar) 1.5 Mg Capsule, 1.5 MG PO DAILY, (Reported) Entered as Reported by: JON AKERS on 08/31/19 0906 Cholecalciferol (Vitamin D3) (Vitamin D3) 2,000 Unit Tablet, 2,000 UNIT PO DAILY, (Reported) Entered as Reported by: DRAKE BUSH on 04/07/19 1309 Cyclobenzaprine HCl (Cyclobenzaprine HCl) 10 Mg Tablet, 10 MG PO BID PRN for PAIN-MODERATE (5-7), (Reported) Entered as Reported by: MICHAEL BARILLAS on 11/11/18 1619 Estradiol (Estrace Tablet) 2 Mg Tablet, 2 MG PO DAILY, (Reported) Entered as Reported by: JON AKERS on 08/31/19 0900 Ferrous Sulfate (Ferosul) 325 Mg Tablet, 325 MG PO DAILY, (Reported) Entered as Reported by: JON AKERS on 08/31/19 0906 Mirtazapine (Mirtazapine) 30 Mg Tablet, 30 MG PO HS, (Reported) Entered as Reported by: JON AKERS on 08/31/19 09 Multivitamin (Multivitamins) 1 Each Tablet, 1 TAB PO DAILY, (Reported) Entered as Reported by: MICHAEL BARILLAS on 11/11/18 1623 Omeprazole (Omeprazole) 40 Mg Capsule.dr, 40 MG PO DAILY, (Reported) Entered as Reported by: JUSTINE BARBER on 03/06/17 1344 Paroxetine HCl (Paxil) 20 Mg Tablet, 20 MG PO DAILY, (Reported) Entered as Reported by: JON AKERS on 08/31/19 0906 Plecanatide (Trulance) 3 Mg Tablet, 3 MG PO DAILY, (Reported) Entered as Reported by: MICHAEL BARILLAS on 11/11/18 1607 Propranolol HCl (Propranolol HCl) 10 Mg Tablet, 10 MG PO BID PRN for ANXIETY, (Reported) Entered as Reported by: JON AKERS on 08/31/19 0906 Vitamin B Complex (Super B-50 Complex) 1 Each Capsule, 1 EACH PO DAILY, (Reported) Entered as Reported by: JON AKERS on 08/31/19 09 Past Tvfvjpm-Cnnfid-Ixofdr Hx Patient Social History Tobacco Use?: No Smoking Status: Never a Smoker Smokeless Tobacco Frequency: Never a User Substance use?: No Alcohol Use?: No Pt feels they are or have been: No Immunizations Up To Date Tetanus Booster (TDap): Unknown First/Initial COVID19 Vaccinat: 6 month ago 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[employer]: [employer] Seasonal Allergies Seasonal Allergies: No Past Medical History Surgery/Hospitalization HX: History of HIV, Ulcers, Surgeries: Gastric bypass, Hernia repair, back surgery Surgeries: Yes (GASTRIC BYPASS, ABDOMINOPLASTY; HERNIA REPAIR) Abdominal, Adenoidectomy, Section, Gallbladder, Orthopedic, Pacemaker, Tonsillectomy Respiratory: Yes COPD Currently Using CPAP: No Cardiac: Yes (PACEMAKER FOR BRADYCARDIA) Neurological: No Vertigo Reproductive Disorders: No Sexually Transmitted Disease: No HIV/AIDS: Yes Genitourinary: Yes Kidney Infection, Kidney Stones Gastrointestinal: Yes Gastroesophageal Reflux, Chronic Constipation, Hiatal Hernia, Ulcer Musculoskeletal: No Endocrine: No HEENT: No Cancer: No Psychosocial: Yes ADD/ADHD, Anxiety, PTSD, Bipolar, Depression Integumentary: No Blood Disorders: Yes (hiv POS) Adverse Reaction/Blood Tranf: No Family Medical History No Pertinent Family Hx Physical Exam Vital Signs Vital Signs - First Documented 03/26/21 20:33 Temp 36.7 Pulse 71 Resp 16 B/P (MAP) 104/76 (85) Pulse Ox 98 O2 Delivery Room Air Capillary Refill : Less Than 3 Seconds Height, Weight, BMI Height: 5'4.00" Weight: 203lbs. 1.6oz. 92.825402kw; 32.00 BMI Method:Stated Progress/Results/Core Measures Suspected Sepsis SIRS Temperature: Pulse: 71 Respiratory Rate: 16 Laboratory Tests 03/26/21 21:45: White Blood Count 4.0L Blood Pressure 104 /76 Mean: 85 Laboratory Tests 03/26/21 21:45: Creatinine 0.77, Platelet Count 238, Total Bilirubin 0.2 Results/Orders Lab Results Laboratory Tests Test 03/26/21 20:38 03/26/21 21:45 Range/Units Influenza Type A (RT-PCR) Not Detected Not Detecte Influenza Type B (RT-PCR) Not Detected Not Detecte SARS-CoV-2 RNA (RT-PCR) Detected H Not Detecte White Blood Count 4.0 L 4.3-11.0 10^3/uL Red Blood Count 4.74 3.80-5.11 10^6/uL Hemoglobin 14.4 11.5-16.0 g/dL Hematocrit 45 35-52 % Mean Corpuscular Volume 94 80-99 fL Mean Corpuscular Hemoglobin 30 25-34 pg Mean Corpuscular Hemoglobin Concent 32 32-36 g/dL Red Cell Distribution Width 13.2 10.0-14.5 % Platelet Count 238 130-400 10^3/uL Mean Platelet Volume 11.5 9.0-12.2 fL Immature Granulocyte % (Auto) 0 % Neutrophils (%) (Auto) 38 L 42-75 % Lymphocytes (%) (Auto) 38 12-44 % Monocytes (%) (Auto) 18 H 0-12 % Eosinophils (%) (Auto) 5 0-10 % Basophils (%) (Auto) 1 0-10 % Neutrophils # (Auto) 1.5 L 1.8-7.8 10^3/uL Lymphocytes # (Auto) 1.5 1.0-4.0 10^3/uL Monocytes # (Auto) 0.7 0.0-1.0 10^3/uL Eosinophils # (Auto) 0.2 0.0-0.3 10^3/uL Basophils # (Auto) 0.0 0.0-0.1 10^3/uL Immature Granulocyte # (Auto) 0.0 0.0-0.1 10^3/uL Urine Color YELLOW Urine Clarity CLEAR Urine pH 5.5 5-9 Urine Specific [place] >=1.030 1.016-1.022 Urine Protein NEGATIVE NEGATIVE Urine Glucose (UA) NEGATIVE NEGATIVE Urine Ketones NEGATIVE NEGATIVE Urine Nitrite NEGATIVE NEGATIVE Urine Bilirubin NEGATIVE NEGATIVE Urine Urobilinogen 0.2 < = 1.0 MG/DL Urine Leukocyte Esterase NEGATIVE NEGATIVE Urine RBC (Auto) NEGATIVE NEGATIVE Urine RBC NONE /HPF Urine WBC NONE /HPF Urine Squamous Epithelial Cells 0-2 /HPF Urine Crystals NONE /LPF Urine Bacteria NEGATIVE /HPF Urine Casts NONE /LPF Urine Mucus SMALL H /LPF Urine Culture Indicated NO Sodium Level 141 135-145 MMOL/L Potassium Level 4.6 3.6-5.0 MMOL/L Chloride Level 102 98-107 MMOL/L Carbon Dioxide Level 26 21-32 MMOL/L Anion Gap 13 5-14 MMOL/L Blood Urea Nitrogen 16 7-18 MG/DL Creatinine 0.77 0.60-1.30 MG/DL Estimat Glomerular Filtration Rate 79 BUN/Creatinine Ratio 21 Glucose Level 95 70-105 MG/DL Calcium Level 9.7 8.5-10.1 MG/DL Corrected Calcium 9.5 8.5-10.1 MG/DL Magnesium Level 1.8 1.6-2.4 MG/DL Total Bilirubin 0.2 0.1-1.0 MG/DL Aspartate Amino Transf (AST/SGOT) 19 5-34 U/L Alanine Aminotransferase (ALT/SGPT) 20 0-55 U/L Alkaline Phosphatase 106 40-136 U/L Total Creatine Kinase 38 29-168 U/L Total Protein 7.0 6.4-8.2 GM/DL Albumin 4.3 3.2-4.5 GM/DL Serum Test, Qualitative NEGATIVE NEGATIVE My Orders Orders - RAIZA MARTINEZ MD Covid 19 Inhouse Test (03/26/21 20:35) Influenza A And B By Pcr (03/26/21 20:35) Ketorolac Injection (Toradol Injection) (03/26/21 21:45) Ed Iv/Invasive Line Start (03/26/21 21:31) Lactated Ringers (Lr 1000 Ml Iv Solution (03/26/21 21:45) Cbc With Automated Diff (03/26/21 21:31) Comprehensive Metabolic Panel (03/26/21 21:31) Creatine Kinase (03/26/21 21:31) Hcg,Qualitative Serum (03/26/21 21:31) Magnesium (03/26/21 21:31) Ua Culture If Indicated (03/26/21 21:31) Chest 1 View, Ap/Pa Only (03/26/21 21:31) Medications Given in ED Current Medications Medications Dose Ordered Sig/Brit Route Start Time Stop Time Status Last Admin Dose Admin Ketorolac Tromethamine 15 mg ONCE ONCE IVP 03/26/21 21:45 03/26/21 21:46 DC 03/26/21 21:45 15 MG Lactated Ringer's 1,000 ml @ 0 mls/hr Q0M ONCE IV 03/26/21 21:45 03/26/21 21:46 DC 03/26/21 21:45 1,000 MLS/HR Vital Signs/I&O 03/26/21 20:33 Temp 36.7 Pulse 71 Resp 16 B/P (MAP) 104/76 (85) Pulse Ox 98 O2 Delivery Room Air Capillary Refill : Less Than 3 Seconds Blood Pressure Mean: 85 Progress Note : Progress Note Not interested in monoclonal antibody therapy Departure Impression Primary Impression: COVID-19 Additional Impression: HIV positive Disposition: 01 HOME, SELF-CARE Condition: Improved Departure-Patient Inst. Decision time for Depature: 23:30 Referrals: [facility] [place] [facility] [place] Primary Care Physician TIGRE BARRETO DO (Family) Primary Care Physician Patient Instructions: COVID-19 Overview Add. Discharge Instructions: Drink plenty of clear liquids to stay well-hydrated. Change positions often and moves about during the day. This helps breathing with COVID-19. Eat a well-balanced diet and take a multivitamin daily. Continue your usual home medications. If you are able, obtain a pulse oximeter and check your oxygen saturations frequently, especially if you have increasing shortness of breath. If you have multiple measurements below 92% or any measurements under 90%, please return to the emergency room. Use Tylenol (acetaminophen) up to 1000 mg every 6 hours as needed for pain or fever. Add ibuprofen up to 600 mg every 6 hours as needed for symptoms not controlled by Tylenol. Call with questions or concerns. Return to the ER if you have any other worsening of symptoms. Follow CDC or local health department quarantine guidelines. All discharge instructions reviewed with patient and/or family. Voiced understanding. Scripts Ondansetron (Ondansetron Odt) 4 Mg Tab.rapdis 4 MG SL Q4H PRN for NAUSEA/VOMITING, #10 TAB Prov: RAIZA MARTINEZ MD 03/26/21 Work/School Note: Work Release Form Date Seen in the Emergency Department: Mar 26, 2021 Return to Work: Apr 01, 2021 Restrictions: Return-No Fever (24hrs), Return-No Vomiting(24hrs) Other Restrictions Listed Below: Must mask until 04/04/21. Restrictions: Quarantine at least 5 days from positive test and symptoms gone. RAIZA MARTINEZ MD Mar 26, 2021 23:42
[2021-03-26 23:50] VITALS: BP 111/61
== END 2021-03-26 23:56 | disposition home or self-care (01) ==
LOC: EDUNIT# 20:14 → ER 20:16
DX: U07.1 COVID-19 (principal); K21.9 Gastro-esophageal reflux disease without esophagitis; F41.9 Anxiety disorder, unspecified; J44.9 Chronic obstructive pulmonary disease, unspecified; F31.9 Bipolar disorder, unspecified; Z21 Asymptomatic human immunodeficiency virus [HIV] infection status; Z79.899 Other long term (current) drug therapy
CPT/HCPCS: 36415; 71045; 80053; 81000; 82550; 83735; 84703; 85025; 87636

== ENCOUNTER → 2021-05-30 | Outpatient (CLI) | payer MEDICARE, MEDICAID ==
[~2021-05-30] MED LIST changes: +CATHETER FLUSH 10 ML SYR IV PRN; +HOLD METFORMIN - RECEIVED CONTRAST 20 ML VIAL IV SCH; +IOHEXOL 350 MG/ML 100 ML (OMNIPAQUE 350) VIAL IV ONE; +NS 100 ML (IVPB) BAG IV ONE; +ONDA4TAB11 SL
[2021-05-30 12:58] LABS: ALBUMIN 4.6 GM/DL (3.2-4.5); CHLORIDE 101 MMOL/L (98-107); POTASSIUM 4.2 MMOL/L (3.6-5.0); SODIUM 139 MMOL/L (135-145)
[2021-05-30 12:59] LABS: CALCIUM 10.2 MG/DL (8.5-10.1)
[2021-05-30 13:00] LABS: GLUCOSE 94 MG/DL (70-105); TOTAL PROTEIN 7.1 GM/DL (6.4-8.2)
[2021-05-30 13:01] LABS: CARBON DIOXIDE 26 MMOL/L (21-32)
[2021-05-30 13:02] LABS: BILIRUBIN,TOTAL 0.5 MG/DL (0.1-1.0)
[2021-05-30 13:04] LABS: ALKALINE PHOSPHATASE 112 U/L (40-136); CREATININE SERUM 0.79 MG/DL (0.60-1.30); GFR ESTIMATED 91
[2021-05-30 13:05] LABS: BUN/CREATININE RATIO 13
[2021-05-30 13:07] LABS: ALANINE AMINOTRANSFERASE 21 U/L (0-55)
--- NOTE | 2021-05-30 14:38 | Diagnostic Imaging Report ---
EXAMINATION: CT abdomen and pelvis with intravenous contrast. TECHNIQUE: Multiple contiguous axial images were obtained through the abdomen and pelvis after the uneventful administration of intravenous contrast. All CT scans use one or more of the following dose optimizing techniques: automated exposure control, MA and/or KvP adjustment based on patient size and exam type or iterative reconstruction. HISTORY: INTERMITTENT ABD PAIN COMPARISON: 12/08/2017 FINDINGS: Lung bases: The lung bases are clear. Solid organs: The liver is normal without focal lesion. The gallbladder is surgically absent. Mild biliary duct dilatation which may be secondary to reservoir effect from prior cholecystectomy. Pancreas is normal. Spleen is normal. Adrenal glands are normal. The kidneys are normal without hydronephrosis. Bowel: Surgical changes of the stomach and small bowel. There is no bowel obstruction. The appendix is normal. Peritoneum: There is no intraperitoneal free fluid or free air. No suspicious lymphadenopathy. Vasculature: Calcification of the aorta without aneurysm. Musculoskeletal: Surgical and degenerative changes of the spine without suspicious osseous lesion or compression fracture. Pelvis: The uterus and adnexa are normal. The urinary bladder is normal. IMPRESSION: 1. No acute abnormality in the abdomen or pelvis. Dictated by: Dictated on workstation # [id number]
== END ==
LOC: RAD 12:31
PROVIDERS: ATTEND Pediatrics
DX: R10.9 Unspecified abdominal pain (principal)
CPT/HCPCS: 36415; 74177; 80053

== ENCOUNTER 2021-06-28 14:38 | Emergency (ER) | payer MEDICARE, MEDICAID ==
[~2021-06-28] VITALS: Ht 162 cm; Wt 63.9 kg
[~2021-06-28 14:38] MED LIST changes: -CATHETER FLUSH 10 ML SYR IV PRN; -HOLD METFORMIN - RECEIVED CONTRAST 20 ML VIAL IV SCH; -IOHEXOL 350 MG/ML 100 ML (OMNIPAQUE 350) VIAL IV ONE; -NS 100 ML (IVPB) BAG IV ONE
[2021-06-28 15:10] VITALS: BP_SYST 103; BP_SYST 109; BP_SYST 96; BP_DIAS 58; BP_DIAS 68; BP_DIAS 90
[2021-06-28] MEDS ORDERED: NS IV 1000 ML 1,000 ML IV STA (15:12)
[2021-06-28 15:20] LABS: BASOPHILS % (AUTO) 1 % (0-10); EOSINOPHILS # (AUTO) 0.1 10^3/uL (0.0-0.3); EOSINOPHILS % (AUTO) 3 % (0-10); HEMATOCRIT 45 % (35-52); HEMOGLOBIN 14.7 g/dL (11.5-16.0); LYMPHOCYTES # (AUTO) 1.2 X 10^3 (1.0-4.0); LYMPHOCYTES % (AUTO) 23 % (12-44); MEAN CORPUSCULAR HEMOGLOBIN 30 pg (25-34); MEAN CORPUSCULAR HGB CONC 33 g/dL (32-36); MEAN CORPUSCULAR VOLUME 92 fL (80-99); MONOCYTES # (AUTO) 0.6 X 10^3 (0.0-1.0); MONOCYTES % (AUTO) 12 % (0-12); NEUTROPHILS # (AUTO) 3.1 X 10^3 (1.8-7.8); NEUTROPHILS % (AUTO) 61 % (42-75); PLATELET COUNT 295 10^3/uL (130-400); WHITE BLOOD COUNT 5.1 10^3/uL (4.3-11.0)
[2021-06-28 15:23] LABS: ALBUMIN 4.5 GM/DL (3.2-4.5); CHLORIDE 104 MMOL/L (98-107); POTASSIUM 3.6 MMOL/L (3.6-5.0); SODIUM 138 MMOL/L (135-145)
[2021-06-28 15:24] LABS: CALCIUM 9.5 MG/DL (8.5-10.1)
[2021-06-28 15:25] LABS: GLUCOSE 90 MG/DL (70-105); TOTAL PROTEIN 6.9 GM/DL (6.4-8.2)
[2021-06-28 15:27] LABS: BILIRUBIN,TOTAL 0.5 MG/DL (0.1-1.0); CARBON DIOXIDE 22 MMOL/L (21-32)
[2021-06-28 15:29] LABS: ALKALINE PHOSPHATASE 114 U/L (40-136); CREATININE SERUM 0.87 MG/DL (0.60-1.30); GFR ESTIMATED 81
[2021-06-28 15:30] LABS: BUN/CREATININE RATIO 16
[2021-06-28 15:32] LABS: ALANINE AMINOTRANSFERASE 23 U/L (0-55); MAGNESIUM 1.8 MG/DL (1.6-2.4)
[2021-06-28 15:33] LABS: LIPASE 22 U/L (8-78)
--- NOTE | 2021-06-28 15:59 | Diagnostic Imaging Report ---
Indication: Chest pain shortness of breath Portable chest 3:43 PM There is a dual-chamber pacemaker. Heart size and pulmonary vascularity are normal. Lungs are clear. There are no effusions or pneumothoraces. IMPRESSION: No acute abnormalities in the chest Dictated by: Dictated on workstation # [id number]
[2021-06-28] MEDS ORDERED: LACTATED RINGERS 1,000 ML IV SCH (16:45)
--- NOTE | 2021-06-28 17:41 | ED General ---
General Chief Complaint: General Problems/Pain Stated Complaint: FATIGUE/DIZZY/DIARRHEA/HEADACHE Nursing Triage Note: Pt to ambulatory to ED c/o diarrhea/dizziness and general fatigue onset 3 weeks ago. Pt states she has been gettgin dizzy when changing positions. Pt contacted Dr Barreto's office already, did not have any testing done. Source of Information: Patient Exam Limitations: No Limitations (CARINE MARTINI) History of Present Illness Date Seen by Provider: Jun 28, 2021 Time Seen by Provider: 17:38 Initial Comments Patient is a 50-year-old female with a history of coronary artery disease, pacemaker who presents ED with intermittent dizziness over the past month. She relates the dizziness to head movement. Denies room spinning. She states she is also been feeling fatigued and weak over the past 3 weeks. She denies headache, unilateral muscle weakness or sensory changes, visual changes, neck pain or fever. She also reports intermittent vomiting and diarrhea. She states she may have loose stools 2 or 3 times every other day. Intermittent vomiting with the dizziness. She denies of any ear pain, ear ringing, hearing loss, sore throat, recent URI symptoms. She states since she got Covid she started having some of the symptoms. 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 Not currently on blood pressure medication. She denies of any urinary symptoms, chest pain, shortness of breath, cough, current abdominal pain. She does have some intermittent abdominal pain when she does have episode of diarrhea or vomiting. (CARINE MARTINI) Allergies and Home Medications Allergies Coded Allergies: No Known Drug Allergies (Unverified , 03/10/16) Patient Home Medication List Home Medication List Reviewed: Yes (CARINE MARTINI) Bictegrav/Emtricit/Tenofov Ala (Biktarvy 50-200-25 mg Tablet) 1 Each Tablet, 1 TAB PO HS, (Reported) Entered as Reported by: MICHAEL BARILLAS on 11/11/18 1607 Cariprazine Hydrochloride (Vraylar) 1.5 Mg Capsule, 1.5 MG PO DAILY, (Reported) Entered as Reported by: JON AKERS on 08/31/19 0906 Cholecalciferol (Vitamin D3) (Vitamin D3) 2,000 Unit Tablet, 2,000 UNIT PO DA PADMA, (Reported) Entered as Reported by: DRAKE BUSH on 04/07/19 1309 Cyclobenzaprine HCl (Cyclobenzaprine HCl) 10 Mg Tablet, 10 MG PO BID PRN for PAIN-MODERATE (5-7), (Reported) Entered as Reported by: MICHAEL BARILLAS on 11/11/18 1619 Estradiol (Estrace Tablet) 2 Mg Tablet, 2 MG PO DAILY, (Reported) Entered as Reported by: JON AKERS on 08/31/19 0900 Ferrous Sulfate (Ferosul) 325 Mg Tablet, 325 MG PO DAILY, (Reported) Entered as Reported by: JON AKERS on 08/31/19 0906 Mirtazapine (Mirtazapine) 30 Mg Tablet, 30 MG PO HS, (Reported) Entered as Reported by: JON AKERS on 08/31/19 09 Multivitamin (Multivitamins) 1 Each Tablet, 1 TAB PO DAILY, (Reported) Entered as Reported by: MICHAEL BARILLAS on 11/11/18 1623 Omeprazole (Omeprazole) 40 Mg Capsule.dr, 40 MG PO DAILY, (Reported) Entered as Reported by: JUSTINE BARBER on 03/06/17 1344 Ondansetron (Ondansetron Odt) 4 Mg Tab.rapdis, 4 MG SL Q4H PRN for NAUSEA/VOMITING Prescribed by: RAIZA MALDONADO on 03/26/21 2342 Ondansetron (Ondansetron Odt) 4 Mg Tab.rapdis, 4 MG PO Q6H Prescribed by: MERNA SYLVESTER on 06/28/21 1804 Paroxetine HCl (Paxil) 20 Mg Tablet, 20 MG PO DAILY, (Reported) Entered as Reported by: JON AKERS on 08/31/19 0906 Plecanatide (Trulance) 3 Mg Tablet, 3 MG PO DAILY, (Reported) Entered as Reported by: MICHAEL BARILLAS on 11/11/18 1607 Propranolol HCl (Propranolol HCl) 10 Mg Tablet, 10 MG PO BID PRN for ANXIETY, (Reported) Entered as Reported by: JON AKERS on 08/31/19 09 Vitamin B Complex (Super B-50 Complex) 1 Each Capsule, 1 EACH PO DAILY, (Reported) Entered as Reported by: JON AKERS on 08/31/19 0906 Review of Systems Review of Systems Constitutional: No chills, No diaphoresis; malaise, weakness EENTM: No ear discharge, No hearing loss, No eye pain, No nose congestion, No nose pain, No throat swelling Respiratory: No cough, No orthopnea, No short of breath, No wheezing Gastrointestinal: abdominal pain, diarrhea, nausea, vomiting Genitourinary: No decreased output, No discharge Musculoskeletal: No back pain, No joint pain Skin: No change in color, No change in hair/nails (CARINE MARTINI) All Other Systems Reviewed Negative Unless Noted: Yes (CARINE MARTINI) Past Zftwews-Apgqfu-Fkidac Hx Patient Social History Tobacco Use?: No Substance use?: No Alcohol Use?: No (CARINE MARTINI) Immunizations Up To Date Tetanus Booster (TDap): Unknown Influenza Vaccine Up-to-Date: Yes; Up-to-Date First/Initial COVID19 Vaccinat: cannot remember date (CARINE MARTINI) Seasonal Allergies Seasonal Allergies: No (CARINE MARTINI) Past Medical History Surgery/Hospitalization HX: History of HIV, Ulcers, Surgeries: Gastric bypass, Hernia repair, back surgery Surgeries: Yes (GASTRIC BYPASS, ABDOMINOPLASTY; HERNIA REPAIR) Abdominal, Adenoidectomy, Section, Gallbladder, Orthopedic, Pacemaker, Tonsillectomy Respiratory: Yes COPD Currently Using CPAP: No Cardiac: Yes (PACEMAKER FOR BRADYCARDIA) Neurological: No Vertigo Reproductive Disorders: No Sexually Transmitted Disease: No HIV/AIDS: Yes Genitourinary: Yes Kidney Infection, Kidney Stones Gastrointestinal: Yes Gastroesophageal Reflux, Chronic Constipation, Hiatal Hernia, Ulcer Musculoskeletal: No Endocrine: No HEENT: No Cancer: No Psychosocial: Yes ADD/ADHD, Anxiety, PTSD, Bipolar, Depression Integumentary: No Blood Disorders: Yes (hiv POS) Adverse Reaction/Blood Tranf: No (CARINE MARTINI) Family Medical History No Pertinent Family Hx (CARINE MARTINI) Physical Exam Vital Signs Vital Signs - First Documented 06/28/21 14:50 Temp 36.0 Pulse 93 Resp 17 B/P (MAP) 107/78 (88) Pulse Ox 95 O2 Delivery Room Air (BRUEGGEMANN,RAIZA T MD) Vital Signs Capillary Refill : Less Than 3 Seconds (CARINE MARTINI) Height, Weight, BMI Height: 5'4.00" Weight: 203lbs. 1.6oz. 92.858386hy; 24.00 BMI Method:Stated General Appearance: No Apparent Distress, WD/WN Eyes: Bilateral Eye Normal Inspection, Bilateral Eye PERRL, Bilateral Eye EOMI HEENT: PERRL/EOMI, TMs Normal, Normal ENT Inspection, Pharynx Normal Neck: Full Range of Motion, Normal Inspection, Non Tender, Supple Respiratory: Chest Non Tender, Lungs Clear, Normal Breath Sounds, No Accessory Muscle Use Cardiovascular: Regular Rate, Rhythm, No Edema, No Gallop, No JVD Gastrointestinal: Normal Bowel Sounds, No Organomegaly, No Pulsatile Mass, Non Tender, Soft Back: Normal Inspection, No CVA Tenderness Extremity: Normal Capillary Refill, Normal Inspection, Normal Range of Motion, Non Tender Skin: Normal Color, Warm/Dry (CARINE MARTINI) Progress/Results/Core Measures Suspected Sepsis SIRS Temperature: Pulse: 104 Respiratory Rate: 17 Laboratory Tests 06/28/21 15:00: White Blood Count 5.1 Blood Pressure 96 /58 Mean: 71 Laboratory Tests 06/28/21 15:00: Creatinine 0.87, Platelet Count 295, Total Bilirubin 0.5 (CARINE MARTINI) Results/Orders Lab Results Laboratory Tests Test 06/28/21 15:00 06/28/21 15:20 Range/Units White Blood Count 5.1 4.3-11.0 10^3/uL Red Blood Count 4.89 3.80-5.11 10^6/uL Hemoglobin 14.7 11.5-16.0 g/dL Hematocrit 45 35-52 % Mean Corpuscular Volume 92 80-99 fL Mean Corpuscular Hemoglobin 30 25-34 pg Mean Corpuscular Hemoglobin Concent 33 32-36 g/dL Red Cell Distribution Width 14.0 10.0-14.5 % Platelet Count 295 130-400 10^3/uL Mean Platelet Volume 11.0 9.0-12.2 fL Immature Granulocyte % (Auto) 0 % Neutrophils (%) (Auto) 61 42-75 % Lymphocytes (%) (Auto) 23 12-44 % Monocytes (%) (Auto) 12 0-12 % Eosinophils (%) (Auto) 3 0-10 % Basophils (%) (Auto) 1 0-10 % Neutrophils # (Auto) 3.1 1.8-7.8 X 10^3 Lymphocytes # (Auto) 1.2 1.0-4.0 X 10^3 Monocytes # (Auto) 0.6 0.0-1.0 X 10^3 Eosinophils # (Auto) 0.1 0.0-0.3 10^3/uL Basophils # (Auto) 0.0 0.0-0.1 10^3/uL Immature Granulocyte # (Auto) 0.0 0.0-0.1 10^3/uL Sodium Level 138 135-145 MMOL/L Potassium Level 3.6 3.6-5.0 MMOL/L Chloride Level 104 98-107 MMOL/L Carbon Dioxide Level 22 21-32 MMOL/L Anion Gap 12 5-14 MMOL/L Blood Urea Nitrogen 14 7-18 MG/DL Creatinine 0.87 0.60-1.30 MG/DL Estimat Glomerular Filtration Rate 81 BUN/Creatinine Ratio 16 Glucose Level 90 70-105 MG/DL Calcium Level 9.5 8.5-10.1 MG/DL Corrected Calcium 9.1 8.5-10.1 MG/DL Magnesium Level 1.8 1.6-2.4 MG/DL Total Bilirubin 0.5 0.1-1.0 MG/DL Aspartate Amino Transf (AST/SGOT) 20 5-34 U/L Alanine Aminotransferase (ALT/SGPT) 23 0-55 U/L Alkaline Phosphatase 114 40-136 U/L Troponin I < 0.028 <0.028 NG/ML B-Type Natriuretic Peptide < 10.0 <100.0 PG/ML Total Protein 6.9 6.4-8.2 GM/DL Albumin 4.5 3.2-4.5 GM/DL Lipase 22 8-78 U/L Thyroid Stimulating Hormone (TSH) 0.91 0.35-4.94 UIU/ML Influenza Type A (RT-PCR) Not Detected Not Detecte Influenza Type B (RT-PCR) Not Detected Not Detecte SARS-CoV-2 RNA (RT-PCR) Not Detected Not Detecte (RAIZA MARTINEZ MD) Vital Signs/I&O 06/28/21 06/28/21 06/28/21 14:50 15:10 18:14 Temp 36.0 36.0 Pulse 93 96 60 104 Resp 17 17 B/P (MAP) 107/78 (88) 109/90 (96) 116/64 103/68 (80) 96/58 (71) Pulse Ox 95 95 O2 Delivery Room Air Room Air 06/29/21 00:00 Intake Total 1000 ml Balance 1000 ml (RAIZA MARTINEZ MD) Vital Signs/I&O Capillary Refill : Less Than 3 Seconds (CARINE MARTINI) Blood Pressure Mean: 71 ECG Comment Atrial paced rhythm, left bundle branch block, 60 bpm, QRS duration 134 MS, QTc 431 MS. (CARINE MARTINI) Departure Communication (PCP) Patient presents ED with dizziness vomiting diarrhea weakness fatigue. Symptoms over the past 3 weeks. Patient does have a pacemaker but denies of any chest pain or shortness of breath. Atrial paced rhythm noted. Patient does not know what type of pacemaker she has. Attempted to interrogate but was unsuccessful. Cardiac work-up unremarkable. She was slightly hypotensive here. She was orthostatic hypotensive with standing and felt dizzy. Intermittent vomiting and diarrhea over the past few weeks without specific abdominal pain. Concerning for dehydration with the vomiting and diarrhea. Patient Was given 2 L of fluid with improvement of her blood pressure. Lab work was otherwise unremarkable. Covid and influenza negative. She had no abdominal tenderness on palpation. With normal lab work imaging was held at this time. Patient was able to stand and ambulate here without any dizziness after fluids. She states she feels much better at this time. Patient is concerned that her female hormones are low. Her TSH was normal. She states she will follow up outpatient for these results. Discussed with patient strict return precautions. She states she feels better would like to be discharged. She is requesting nausea medication. She states she does have this dizziness with head movement. But has no current dizziness with head movement. She has no evidence of ear infection. No ear ringing, h earing loss or evidence of nystagmus. She has no head pain neck pain or focal neural deficits suggesting intracranial pathology. Return precaution were discussed with patient. (CARINE MARTINI) Impression Primary Impression: Dizziness Additional Impressions: Dehydration Orthostatic hypotension Disposition: 01 HOME, SELF-CARE Condition: Stable Departure-Patient Inst. Decision time for Depature: 17:59 (CARINE MARTINI) Referrals: TIGRE BARRETO DO (PCP/Family) Primary Care Physician Patient Instructions: Dehydration, Adult ED, Dizziness, Adult ED Add. Discharge Instructions: Need to follow-up your primary care physician for further evaluation. If any worsening symptoms return back to ED for further evaluation. All discharge instructions reviewed with patient and/or family. Voiced understanding. Scripts Ondansetron (Ondansetron Odt) 4 Mg Tab.rapdis 4 MG PO Q6H, #8 TAB Prov: CARINE MARTINI 06/28/21 ATTENDING PHYSICIAN NOTE: I was physically present as attending physician in the emergency department during the care of this patient, but I was not directly involved in the decision making or delivery of care for this patient. (RAIZA MARTINEZ MD) CARINE MARTINI Jun 28, 2021 17:41 RAIZA MARTINEZ MD Jun 29, 2021 10:51
[2021-06-28] MEDS ORDERED: ONDA4TAB11 PO (18:04)
[2021-06-28 18:14] VITALS: BP 116/64
== END 2021-06-28 18:14 | disposition home or self-care (01) ==
LOC: EDUNIT# 14:38 → ER 14:41
DX: E86.0 Dehydration (principal); I95.1 Orthostatic hypotension; Z20.822 Contact with and (suspected) exposure to COVID-19
CPT/HCPCS: 36415; 71045; 80053; 83690; 83735; 83880; 84443; 84484; 85025; 87636

== ENCOUNTER 2021-08-02 10:24 | Emergency (ER) | payer MEDICARE, MEDICAID ==
[~2021-08-02] VITALS: Ht 162.6 cm; Wt 82.6 kg
[~2021-08-02 10:24] MED LIST changes: +ONDA4TAB11 PO
[2021-08-02 11:21] LABS: BASOPHILS % (AUTO) 1 % (0-10); EOSINOPHILS # (AUTO) 0.1 10^3/uL (0.0-0.3); EOSINOPHILS % (AUTO) 2 % (0-10); HEMATOCRIT 47 % (35-52); HEMOGLOBIN 15.4 g/dL (11.5-16.0); LYMPHOCYTES # (AUTO) 1.2 10^3/uL (1.0-4.0); LYMPHOCYTES % (AUTO) 28 % (12-44); MEAN CORPUSCULAR HEMOGLOBIN 30 pg (25-34); MEAN CORPUSCULAR HGB CONC 33 g/dL (32-36); MEAN CORPUSCULAR VOLUME 90 fL (80-99); MEAN PLATELET VOLUME 11.8 fL (9.0-12.2); MONOCYTES # (AUTO) 0.3 10^3/uL (0.0-1.0); MONOCYTES % (AUTO) 8 % (0-12); NEUTROPHILS # (AUTO) 2.6 10^3/uL (1.8-7.8); NEUTROPHILS % (AUTO) 61 % (42-75); PLATELET COUNT 282 10^3/uL (130-400); WHITE BLOOD COUNT 4.2 10^3/uL (4.3-11.0)
[2021-08-02 11:22] LABS: ALBUMIN 4.8 GM/DL (3.2-4.5); CHLORIDE 102 MMOL/L (98-107); POTASSIUM 4.1 MMOL/L (3.6-5.0); SODIUM 141 MMOL/L (135-145)
[2021-08-02 11:23] LABS: CALCIUM 10.4 MG/DL (8.5-10.1)
[2021-08-02 11:25] LABS: GLUCOSE 117 MG/DL (70-105); TOTAL PROTEIN 7.5 GM/DL (6.4-8.2)
--- NOTE | 2021-08-02 11:25 | ED General ---
General Chief Complaint: Abdominal/GI Problems Stated Complaint: R SIDE ABD PAIN Nursing Triage Note: PT AMB TO RM 5 W C/O RLQ PAIN, LIGHTHEADEDNESS, AND NAUSEA X2 + WEEKS. PT REPORTS PAIN WORSE W BM. [facility], WAS ADVISED TO GO TO ED IF SYMPTOMS PERSIST. PT A&OX4. (TIM GONZALEZ) Source of Information: Patient, Old Records Exam Limitations: No Limitations (RAIZA MARTINEZ MD) History of Present Illness Initial Comments 50 year old HIV positive female with history of gastric bypass and cholectomy presents today via private vehicle for right sided abdominal pain. She reports that 4 weeks ago she began feeling dehydrated, nauseas, and dizzy. She reports seeing Dr. Barreto, her pcp, at [facility] around this time and was started on Vitamin D. 3 weeks ago she began having RLQ abdominal pain that has progressively worsened and that she rates as 9/10. She reports not being able to tolerate food and has recently been vomiting up anything she tries to eat. She isn't sure whether the food makes the pain worse. She reports having a RUQ ultrasound performed last week at [facility] with normal findings at that time. She reports having 2 BM's per week which is increased from her normal once a week BM. She has not noticed blood in her stool. She reports having colonoscopy last year with normal findings. She has had increased urinary frequency, but no pain or hematuria. (TIM GONZALEZ) Date Seen by Provider: August 02, 2021 Time Seen by Provider: 10:40 (RAIZA MARTINEZ MD) Allergies and Home Medications Allergies Coded Allergies: No Known Drug Allergies (Unverified , 03/10/16) Patient Home Medication List Home Medication List Reviewed: Yes (RAIZA MARTINEZ MD) Bictegrav/Emtricit/Tenofov Ala (Biktarvy 50-200-25 mg Tablet) 1 Each Tablet, 1 TAB PO HS, (Reported) Entered as Reported by: MICHAEL BARILLAS on 11/11/18 1607 Cariprazine Hydrochloride (Vraylar) 1.5 Mg Capsule, 1.5 MG PO DAILY, (Reported) Entered as Reported by: JON AKERS on 08/31/19 0906 Cholecalciferol (Vitamin D3) (Vitamin D3) 2,000 Unit Tablet, 2,000 UNIT PO DAILY, (Reported) Entered as Reported by: DRAKE BUSH on 04/07/19 1309 Cyclobenzaprine HCl (Cyclobenzaprine HCl) 10 Mg Tablet, 10 MG PO BID PRN for PAIN-MODERATE (5-7), (Reported) Entered as Reported by: MICHAEL BARILLAS on 11/11/18 1619 Estradiol (Estrace Tablet) 2 Mg Tablet, 2 MG PO DAILY, (Reported) Entered as Reported by: JON AKERS on 08/31/19 0900 Ferrous Sulfate (Ferosul) 325 Mg Tablet, 325 MG PO DAILY, (Reported) Entered as Reported by: JON AKERS on 08/31/19 0906 Hydrocodone/Acetaminophen (Hydrocodone-Acetamin 5-325 mg) 5 Mg-325 Mg Tablet, 1 TAB PO Q4H PRN for PAIN-BREAKTHROUGH Prescribed by: RAIZA MALDONADO on 08/02/21 1523 Hyoscyamine Sulfate (Levsin-Sl) 0.125 Mg Tab.subl, 0.125 MG SL Q4H PRN for CRAMPS Prescribed by: RAIZA MALDONADO on 08/02/21 1522 Mirtazapine (Mirtazapine) 30 Mg Tablet, 30 MG PO HS, (Reported) Entered as Reported by: JON AKERS on 08/31/19 0906 Multivitamin (Multivitamins) 1 Each Tablet, 1 TAB PO DAILY, (Reported) Entered as Reported by: MICHAEL BARILLAS on 11/11/18 1623 Omeprazole (Omeprazole) 40 Mg Capsule.dr, 40 MG PO DAILY, (Reported) Entered as Reported by: JUSTINE BARBER on 03/06/17 1344 Ondansetron (Ondansetron Odt) 4 Mg Tab.rapdis, 4 MG SL Q4H PRN for NAUSEA/VOMITING Prescribed by: RAIZA MALDONADO on 03/26/21 2342 Ondansetron (Ondansetron Odt) 4 Mg Tab.rapdis, 4 MG PO Q6H Prescribed by: MERNA SYLVESTER on 06/28/21 1804 Ondansetron (Ondansetron Odt) 4 Mg Tab.rapdis, 4 MG SL Q4H PRN for NAUSEA/VOMITING Prescribed by: RAIZA MALDONADO on 08/02/21 1522 Paroxetine HCl (Paxil) 20 Mg Tablet, 20 MG PO DAILY, (Reported) Entered as Reported by: JON AKERS on 08/31/19 09 Plecanatide (Trulance) 3 Mg Tablet, 3 MG PO DAILY, (Reported) Entered as Reported by: MICHAEL BARILLAS on 11/11/18 1607 Propranolol HCl (Propranolol HCl) 10 Mg Tablet, 10 MG PO BID PRN for ANXIETY, (Reported) Entered as Reported by: JON AKERS on 08/31/19 09 Vitamin B Complex (Super B-50 Complex) 1 Each Capsule, 1 EACH PO DAILY, (Reported) Entered as Reported by: JON AKERS on 08/31/19905 Review of Systems Review of Systems Constitutional: dizziness, malaise EENTM: other (Daily headaches) Respiratory: No cough, No short of breath Cardiovascular: No chest pain, No palpitations Gastrointestinal: RLQ, see HPI Genitourinary: No dysuria; frequency (increased); No hematuria : No Musculoskeletal: no symptoms reported Skin: no symptoms reported Psychiatric/Neurological: No Symptoms Reported Hematologic/Lymphatic: No Symptoms Reported Immunological/Allergic: no symptoms reported (TIM GONZALEZ) Past Gdoqkzb-Pguxyt-Xbryor Hx Patient Social History Tobacco Use?: No Use of E-Cig and/or Vaping dev: No Substance use?: No Alcohol Use?: No (TIM GONZALEZ) Immunizations Up To Date Tetanus Booster (TDap): Unknown Influenza Vaccine Up-to-Date: Yes; Up-to-Date First/Initial COVID19 Vaccinat: 2020 Second COVID19 Vaccination Ganesh: N/A Third COVID19 Vaccination Date: N/A COVID19 Vaccine 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 (TIM GONZALEZ) Seasonal Allergies Seasonal Allergies: No (TIM GONZALEZ) Past Medical History Surgery/Hospitalization HX: History of HIV, Ulcers, Surgeries: Gastric bypass, Hernia repair, back surgery, RIVAS Surgeries: Yes (GASTRIC BYPASS, ABDOMINOPLASTY; HERNIA REPAIR) Abdominal, Adenoidectomy, Section, Gallbladder, Orthopedic, Pacemaker, Tonsillectomy Respiratory: Yes COPD Currently Using CPAP: No Cardiac: Yes (PACEMAKER FOR BRADYCARDIA) Neurological: No Vertigo Reproductive Disorders: No Sexually Transmitted Disease: No HIV/AIDS: Yes Genitourinary: Yes Kidney Infection, Kidney Stones Gastrointestinal: Yes Gastroesophageal Reflux, Chronic Constipation, Hiatal Hernia, Ulcer Musculoskeletal: No Endocrine: No HEENT: No Cancer: No Psychosocial: Yes ADD/ADHD, Anxiety, PTSD, Bipolar, Depression Integumentary: No Blood Disorders: Yes (hiv POS) Adverse Reaction/Blood Tranf: No (TIM GONZALEZ) Family Medical History No Pertinent Family Hx (TIM GONZALEZ) Physical Exam Vital Signs Vital Signs - First Documented 08/02/21 10:32 Temp 36.8 Pulse 69 Resp 20 B/P (MAP) 108/70 (83) Pulse Ox 96 O2 Delivery Room Air (RAIZA MARTINEZ MD) Vital Signs Capillary Refill : Less Than 3 Seconds (TIM GONZALEZ) Height, Weight, BMI Height: 5'4.00" Weight: 203lbs. 1.6oz. 92.999390do; 31.00 BMI Method:Stated General Appearance: WD/WN, Other (Sitting in bed holding her RLQ) Eyes: Bilateral Eye PERRL, Bilateral Eye EOMI HEENT: PERRL/EOMI Neck: Lymphadenopathy (L) Respiratory: Lungs Clear, Normal Breath Sounds, No Accessory Muscle Use, No Respiratory Distress Cardiovascular: Regular Rate, Rhythm, No Murmur, Normal Peripheral Pulses Gastrointestinal: Abnormal Bowel Sounds (slightly decreased bowel sounds), Rebound (rebound tenderness in RLQ), Tenderness (tenderness with deep palpation of RLQ that is worse with rebound), Other (firm abdomen, but non-distended) Extremity: Normal Range of Motion, No Pedal Edema Neurologic/Psychiatric: Alert, Oriented x3, No Motor/Sensory Deficits, fabrication technician II- XII Norm as Tested Skin: Normal Color, Warm/Dry (TIM GONZALEZ) Progress/Results/Core Measures Suspected Sepsis SIRS Temperature: Pulse: 69 Respiratory Rate: 20 Laboratory Tests 08/02/21 10:40: White Blood Count 4.2L Blood Pressure 108 /70 Mean: 83 Laboratory Tests 08/02/21 10:40: Creatinine 0.78, Platelet Count 282, Total Bilirubin 0.5 (TIM GONZALEZ) Results/Orders Lab Results Laboratory Tests Test 08/02/21 10:40 08/02/21 12:03 Range/Units White Blood Count 4.2 L 4.3-11.0 10^3/uL Red Blood Count 5.22 H 3.80-5.11 10^6/uL Hemoglobin 15.4 11.5-16.0 g/dL Hematocrit 47 35-52 % Mean Corpuscular Volume 90 80-99 fL Mean Corpuscular Hemoglobin 30 25-34 pg Mean Corpuscular Hemoglobin Concent 33 32-36 g/dL Red Cell Distribution Width 13.3 10.0-14.5 % Platelet Count 282 130-400 10^3/uL Mean Platelet Volume 11.8 9.0-12.2 fL Immature Granulocyte % (Auto) 0 % Neutrophils (%) (Auto) 61 42-75 % Lymphocytes (%) (Auto) 28 12-44 % Monocytes (%) (Auto) 8 0-12 % Eosinophils (%) (Auto) 2 0-10 % Basophils (%) (Auto) 1 0-10 % Neutrophils # (Auto) 2.6 1.8-7.8 10^3/uL Lymphocytes # (Auto) 1.2 1.0-4.0 10^3/uL Monocytes # (Auto) 0.3 0.0-1.0 10^3/uL Eosinophils # (Auto) 0.1 0.0-0.3 10^3/uL Basophils # (Auto) 0.0 0.0-0.1 10^3/uL Immature Granulocyte # (Auto) 0.0 0.0-0.1 10^3/uL Sodium Level 141 135-145 MMOL/L Potassium Level 4.1 3.6-5.0 MMOL/L Chloride Level 102 98-107 MMOL/L Carbon Dioxide Level 27 21-32 MMOL/L Anion Gap 12 5-14 MMOL/L Blood Urea Nitrogen 11 7-18 MG/DL Creatinine 0.78 0.60-1.30 MG/DL Estimat Glomerular Filtration Rate 92 BUN/Creatinine Ratio 14 Glucose Level 117 H 70-105 MG/DL Calcium Level 10.4 H 8.5-10.1 MG/DL Corrected Calcium 8.5-10.1 MG/DL Total Bilirubin 0.5 0.1-1.0 MG/DL Aspartate Amino Transf (AST/SGOT) 14 5-34 U/L Alanine Aminotransferase (ALT/SGPT) 14 0-55 U/L Alkaline Phosphatase 118 40-136 U/L C-Reactive Protein High Sensitivity 0.09 0.00-0.50 MG/DL Total Protein 7.5 6.4-8.2 GM/DL Albumin 4.8 H 3.2-4.5 GM/DL Serum Test, Qualitative NEGATIVE NEGATIVE Urine Color YELLOW Urine Clarity CLEAR Urine pH 6.5 5-9 Urine Specific [place] 1.015 L 1.016-1.022 Urine Protein NEGATIVE NEGATIVE Urine Glucose (UA) NEGATIVE NEGATIVE Urine Ketones NEGATIVE NEGATIVE Urine Nitrite NEGATIVE NEGATIVE Urine Bilirubin NEGATIVE NEGATIVE Urine Urobilinogen 1.0 < = 1.0 MG/DL Urine Leukocyte Esterase NEGATIVE NEGATIVE Urine RBC (Auto) NEGATIVE NEGATIVE Urine RBC NONE /HPF Urine WBC NONE /HPF Urine Squamous Epithelial Cells RARE /HPF Urine Crystals NONE /LPF Urine Bacteria TRACE /HPF Urine Casts NONE /LPF Urine Mucus SMALL H /LPF Urine Culture Indicated NO (RAIZA MARTINEZ MD) My Orders Orders - RAIZA MARTINEZ MD Ua Culture If Indicated (08/02/21 10:40) Cbc With Automated Diff (08/02/21 11:12) Comprehensive Metabolic Panel (08/02/21 11:12) Hs C Reactive Protein (08/02/21 11:12) Hcg,Qualitative Serum (08/02/21 11:12) Ed Iv/Invasive Line Start (08/02/21 11:12) Fentanyl Inj (Sublimaze Injection) (08/02/21 11:30) Ondansetron Injection (Zofran Injectio (08/02/21 11:30) Us Non Ob Pelvis Comp/Transvag (08/02/21 12:46) Fentanyl Inj (Sublimaze Injection) (08/02/21 13:30) Abdomen, Flat & Upright/Decub (08/02/21 14:00) (RAIZA MARTINEZ MD) Medications Given in ED Current Medications Medications Dose Ordered Sig/Brit Route Start Time Stop Time Status Last Admin Dose Admin Fentanyl Citrate 50 mcg ONCE ONCE IVP 08/02/21 11:30 08/02/21 11:31 DC 08/02/21 12:10 50 MCG Fentanyl Citrate 50 mcg ONCE ONCE IVP 08/02/21 13:30 08/02/21 13:31 DC 08/02/21 13:34 50 MCG Ondansetron HCl 4 mg ONCE ONCE IVP 08/02/21 11:30 08/02/21 11:31 DC 08/02/21 12:11 4 MG (RAIZA MARTINEZ MD) Vital Signs/I&O 08/02/21 08/02/21 10:32 15:39 Temp 36.8 36.8 Pulse 69 64 Resp 20 18 B/P (MAP) 108/70 (83) 110/72 Pulse Ox 96 98 O2 Delivery Room Air Room Air (RAIZA MARTINEZ MD) Vital Signs/I&O Capillary Refill : Less Than 3 Seconds (TIM GONZALEZ) Blood Pressure Mean: 83 Progress Note : Progress Note 12:45 [facility] from [facility] were received and reviewed. Included was a RUQ ultrasound and P elvic Ultrasound specifically looking at her appendix that were performed on 07/27/21. Per the impressions, the findings were unremarkable although it was noted that they cannot definitively rule out appendicitis with the ultrasound images. Her ovaries, fallopian tubes, and uterus were not looked at with the pelvic ultrasound performed at [facility]. We will order pelvic ultrasound to spec ificially look at the afore mentioned anatomy for signs of ovarian cysts, fibroids, or masses that may be contributing to her pain. Pending results from ultrasound we may need to order CT scan to further assess what may be causing her pain. This was discussed with the patient who agreed to our plan and had no questions at this time. While reviewing her records from [facility] we looked through the medications she has on record with them and found no medications on her list that seems likely to be causing her RLQ abdominal pain symptoms. 13:45 Pelvic ultrasound was unremarkable. Thus far patient's workup has been inconclusive. Due to limitations of ultrasound and patients long duration of RLQ pain that is worsening, a CT w/ contrast would be an appropriate next step to more definitively rule out appendicitis and look for other pathologies of the small bowel, colon, ovary, ureter, or uterus. Dr. Mustafa discussed CT with the patient and they determined to hold off on CT at this time and instead to abdominal X ray to look for signs of obstruction or fecal compaction. Pending results will discharge patient from the ER with the recommendation to follow up with PCP for further workup. 14:40 Per abdominal X ray, there were few scattered areas of air-fluid levels but no obvious signs of SBO. Discussed the findings with the patient, who had no questions or concerns at this time. She still thinks following up with PCP for further workup is what she would like to do. (TIM GONZALEZ) Progress Note : Progress Note Patient was interviewed and examined by me along with Tim Gonzalez, MS 3. Laboratory work-up was not impressive for abnormalities. Ultrasound was obtained to evaluate pelvic structures further. There was no evidence of pathology on pelvic ultrasound including ovarian cyst, ovarian torsion, free fluid, etc. Patient's pain was treated with fentanyl. A repeat dose was given for rebound pain. I discussed further options for evaluating her pain, primarily CT scan. We discussed the risks and benefits. Risks included cost, exposure to contrast dye, and exposure to x-ray radiation. Benefits included ability to obtain a comprehensive three-dimensional view of the abdominal structures and potentially rule out any surgical pathology. Patient had some questions about these risks and benefits further. Although not impossible, it is unlikely her symptoms are caused by appendicitis as her labs would not suggest bacterial infection and this has been a slow progressive smoldering pain over 3 weeks that would be atypical for appendicitis patient acknowledged the risks and benefits and elected to proceed with watchful waiting. She did accept invitation for plain film evaluation to screen for possible obstruction or constipation. X-ray revealed no pathology that would explain her pain. See discharge instructions for further discussion. (RAIZA MARTINEZ MD) Diagnostic Imaging Diagonstic Imaging: Xray (Abdomen), Ultrasound (Pelvic) Comments Pelvic ultrasound has been reviewed by me and impression can be read below: NAME: BOBBY FUNES [facility] REC#: [id number] PT STATUS: REG ER : 1970 PHYSICIAN: RAIZA MARTINEZ MD ADMIT DATE: 08/02/21/ER Signed Date of Exam:08/02/21 US NON OB PELVIS COMP/TRANSVAG PROCEDURE: Pelvic complete, transabdominal and transvaginal sonogram. Limited pelvic doppler. TECHNIQUE: Multiple real-time grayscale images were obtained of the pelvis in various projections transabdominally and transvaginally. Limited pelvic duplex images were obtained. HISTORY: RLQ pain COMPARISON: None available. FINDINGS: Uterus: The uterus is anteverted and measures 5.6 x 2.9 x 4.7 cm. The myometrium is homogeneous without fibroids. Endometrium: The endometrium is normal in thickness and measures 0.4 cm. There is no fluid within the endometrial cavity. Adnexa: Both ovaries have a normal physiologic appearance. The right ovary measures 2.2 x 1.0 x 1.1 cm and the left ovary measures 2.0 x 1.1 x 1.7 cm. Duplex images reveal normal vascular flow to both ovaries. Other: There is no free fluid within the pelvis. IMPRESSION: 1. Unremarkable pelvic ultrasound. Dictated by: Dictated on workstation # [id number] Dict: 08/02/21 1337 Trans: 08/02/21 1344 [facility] [id number] Interpreted by: RENETTA JORGENSEN DO Electronically signed by: RENETTA JORGENSEN DO 08/02/21 134 Abdominal X ray has been reviewed by me and the preliminary results can be read below: NAME: BOBBY FUNES [facility] REC#: [id number] PT STATUS: REG ER : 1970 PHYSICIAN: RAIZA MARTINEZ MD ADMIT DATE: 08/02/21/ER Draft Date of Exam:08/02/21 ABDOMEN, FLAT & UPRIGHT/DECUB INDICATION: Right lower quadrant abdominal pain. Lightheadedness. Nausea. COMPARISON: None. FINDINGS: Multiple frontal supine and upright radiographic views of the abdomen were obtained. Small bowel loops are nondistended. There is no large collection of free intraperitoneal air. A few scattered air-fluid levels are noted. No unexpected extraosseous calcifications or radiopaque foreign bodies are seen. Osseous structures show no gross acute abnormalities. Included portions of the lung bases are clear. IMPRESSION: 1. Few scattered air-fluid levels, but otherwise small bowel loops are nondistended without evidence of obstruction. Dictated on workstation # [id number] Dict: 08/02/21 1417 Trans: 08/02/21 1421 [id number] Interpreted by: ROHIT GEORGE MD Electronically signed by: (TIM GONZALEZ) Comments Ultrasound was discussed with the chemical laboratory technician and report reviewed by me. X-rays viewed by me and reports reviewed. (RAIZA MARTINEZ MD) Departure Impression Primary Impression: Right lower quadrant pain Disposition: 01 HOME, SELF-CARE Condition: Improved Departure-Patient Inst. Decision time for Depature: 15:13 (RAIZA MARTINEZ MD) Referrals: TIGRE BARRETO DO (PCP/Family) Primary Care Physician Patient Instructions: Abdominal Pain, Adult ED Add. Discharge Instructions: Start with a clear liquid diet today. If you are feeling better in the morning, gradually advance your diet with small quantities of bland food as tolerated. Use Zofran (ondansetron) as prescribed for nausea and vomiting. Use Levsin (hyoscyamine) for abdominal cramping. Follow-up with your primary care provider soon as possible. You may use hydrocodone as prescribed for more severe episodes of pain. Return to the emergency room if you have worsening symptoms including escalating pain, fever, or other worsening symptoms. All discharge instructions reviewed with patient and/or family. Voiced understanding. Scripts Hydrocodone/Acetaminophen (Hydrocodone-Acetamin 5-325 mg) 5 Mg-325 Mg Tablet 1 TAB PO Q4H PRN for PAIN-BREAKTHROUGH, #5 TAB Prov: RAIZA MARTINEZ MD 08/02/21 Hyoscyamine Sulfate (Levsin-Sl) 0.125 Mg Tab.subl 0.125 MG SL Q4H PRN for CRAMPS, #10 TAB 0 Refills Prov: RAIZA MARTINEZ MD 08/02/21 Ondansetron (Ondansetron Odt) 4 Mg Tab.rapdis 4 MG SL Q4H PRN for NAUSEA/VOMITING, #10 TAB Prov: RAIZA MARTINEZ MD 08/02/21 Work/School Note: Work Release Form Date Seen in the Emergency Department: August 02, 2021 Return to Work: August 03, 2021 Restrictions: Return-No Fever (24hrs), Return-No Vomiting(24hrs) Medical Student Attestation and Attending Note: I have personally interviewed and examined this patient along with Tim Gonzalez, MS 3. I have reviewed student documentation including history, physical, and assessments. I agree with the documentation except where otherwise noted. Exam: General: Alert, oriented, minimal acute distress, well developed HEENT: Normocephalic and atraumatic Heart: Regular rate and rhythm without murmur Lungs: Clear to auscultation bilaterally with normal effort Abdomen: Soft, tender in the right lower quadrant with positive rebound tenderness, nondistended, normal bowel sounds Neuropsych: Alert, oriented, no focal deficits Skin: Warm and dry without rashes (RAIZA MARTINEZ MD) Copy Copies To 1: TIGRE BARRETO CARSON August 02, 2021 11:25 RAIZA MARTINEZ MD August 02, 2021 15:14
[2021-08-02 11:26] LABS: BILIRUBIN,TOTAL 0.5 MG/DL (0.1-1.0); CARBON DIOXIDE 27 MMOL/L (21-32)
[2021-08-02 11:28] LABS: ALKALINE PHOSPHATASE 118 U/L (40-136); CREATININE SERUM 0.78 MG/DL (0.60-1.30); GFR ESTIMATED 92
[2021-08-02 11:29] LABS: BUN/CREATININE RATIO 14
[2021-08-02] MEDS ORDERED: fentaNYL INJ 100 MCG/2 ML AMP IVP ONE ×2 (11:30→13:30)
[2021-08-02] MEDS ORDERED: ONDANSETRON 4 MG/2 ML (SDV) Z0FRAN IVP ONE (11:30)
[2021-08-02 11:31] LABS: ALANINE AMINOTRANSFERASE 14 U/L (0-55)
[2021-08-02 12:17] LABS: BILIRUBIN,URINE NEGATIVE (NEGATIVE); CLARITY,URINE CLEAR; COLOR,URINE YELLOW; GLUCOSE, URINE (UA) NEGATIVE (NEGATIVE); KETONES,URINE NEGATIVE (NEGATIVE); LEUKOCYTE ESTERASE ,URINE NEGATIVE (NEGATIVE); NITRITE,URINE NEGATIVE (NEGATIVE); PH,URINE 6.5 (5-9); PROTEIN,URINE NEGATIVE (NEGATIVE)
[2021-08-02 12:29] LABS: BACTERIA,URINE TRACE /HPF; SQUAMOUS EPITHELIAL CELL,UR RARE /HPF
--- NOTE | 2021-08-02 13:41 | Diagnostic Imaging Report ---
PROCEDURE: Pelvic complete, transabdominal and transvaginal sonogram. Limited pelvic doppler. TECHNIQUE: Multiple real-time grayscale images were obtained of the pelvis in various projections transabdominally and transvaginally. Limited pelvic duplex images were obtained. HISTORY: RLQ pain COMPARISON: None available. FINDINGS: Uterus: The uterus is anteverted and measures 5.6 x 2.9 x 4.7 cm. The myometrium is homogeneous without fibroids. Endometrium: The endometrium is normal in thickness and measures 0.4 cm. There is no fluid within the endometrial cavity. Adnexa: Both ovaries have a normal physiologic appearance. The right ovary measures 2.2 x 1.0 x 1.1 cm and the left ovary measures 2.0 x 1.1 x 1.7 cm. Duplex images reveal normal vascular flow to both ovaries. Other: There is no free fluid within the pelvis. IMPRESSION: 1. Unremarkable pelvic ultrasound. Dictated by: Dictated on workstation # [id number]
--- NOTE | 2021-08-02 14:22 | Diagnostic Imaging Report ---
INDICATION: Right lower quadrant abdominal pain. Lightheadedness. Nausea. COMPARISON: None. FINDINGS: Multiple frontal supine and upright radiographic views of the abdomen were obtained. Small bowel loops are nondistended. There is no large collection of free intraperitoneal air. A few scattered air-fluid levels are noted. No unexpected extraosseous calcifications or radiopaque foreign bodies are seen. Osseous structures show no gross acute abnormalities. Included portions of the lung bases are clear. IMPRESSION: 1. Few scattered air-fluid levels, but otherwise small bowel loops are nondistended without evidence of obstruction. Dictated by: Dictated on workstation # [id number]
[2021-08-02] MEDS ORDERED: HYOS0.1283 SL (15:22)
[2021-08-02] MEDS ORDERED: ACHD5005 PO (15:22)
[2021-08-02] MEDS ORDERED: ONDA4TAB11 SL (15:22)
[2021-08-02 15:39] VITALS: BP 110/72
== END 2021-08-02 15:40 | disposition home or self-care (01) ==
LOC: EDUNIT# 10:24 → ER 10:25
DX: R10.31 Right lower quadrant pain (principal); Z28.311 Partially vaccinated for COVID-19; Z32.02 Encounter for pregnancy test, result negative
CPT/HCPCS: 36415; 74019; 76830; 76856; 80053; 81000; 84703; 85025; 86141

== ENCOUNTER → 2021-09-13 | Outpatient (CLI) | payer MEDICARE, MEDICAID ==
[~2021-09-13] MED LIST changes: +ACHD5005 PO; +HYOS0.1283 SL
--- NOTE | 2021-09-13 13:15 | Diagnostic Imaging Report ---
PROCEDURE: Pelvic comp/transvaginal sonogram. TECHNIQUE: Complete transabdominal and transvaginal pelvic ultrasound was performed. In addition, limited pelvic Doppler was performed. INDICATION: Right lower quadrant pain. FINDINGS: The uterus is anteverted measuring 7.3 x 2.9 x 4.3 cm. Endometrium is 2 mm in thickness. No myometrial mass is detected. Ovaries were not visualized due to overlying bowel gas. No adnexal mass or free fluid is detected. IMPRESSION: Nonvisualized ovaries. The study is otherwise unremarkable. Dictated by: Dictated on workstation # [id number]
== END ==
LOC: RAD 10:09
PROVIDERS: ATTEND Obstetrics & Gynecology
DX: R10.31 Right lower quadrant pain (principal)
CPT/HCPCS: 76830; 76856

== ENCOUNTER → 2021-10-03 | Outpatient (CLI) | payer MEDICARE, MEDICAID | END | disposition home or self-care (01) | LOC: PREOP 05:33 | PROVIDERS: ATTEND Orthopaedic Surgery | DX: Z01.818 Encounter for other preprocedural examination (principal) ==

== ENCOUNTER 2021-10-04 13:30 | Emergency (ER) | payer MEDICARE, MEDICAID ==
[~2021-10-04] VITALS: Ht 162.6 cm; Wt 77.1 kg
[2021-10-04] MEDS ORDERED: NS IV 1000 ML 1,000 ML IV STA (14:17)
--- NOTE | 2021-10-04 14:20 | ED Abdominal Pain ---
General Stated Complaint: BACK PAIN Source of Information: Patient Exam Limitations: No Limitations (CARINE MARTINI) History of Present Illness Date Seen by Provider: Oct 04, 2021 Time Seen by Provider: 14:19 Initial Comments Patient is a 50-year-old female who presents ED with bilateral flank pain and bilateral lower abdominal pain. Pain started yesterday described as sharp initially intermittent but became constant today. Worse on the right side. Was seen at [facility] diagnosed with UTI was placed on amoxicillin. Patient reports blood in her urine. History of kidney stones. She does have a history of HIV currently on biktarvy. Patient reports 3-4 episodes of vomiting over the past 3 days. History of UTIs but denies of any urinary symptoms. She denies any vaginal bleeding vaginal discharge. History of gastric bypass. She denies chest pain, shortness of breath, rash, cough, headache, known fever, diarrhea. Patient (CARINE MARTINI) Allergies and Home Medications Allergies Coded Allergies: No Known Drug Allergies (Unverified , 03/10/16) Patient Home Medication List Home Medication List Reviewed: Yes (CARINE SOSA MD) Bictegrav/Emtricit/Tenofov Ala (Biktarvy 50-200-25 mg Tablet) 1 Each Tablet, 1 TAB PO HS, (Reported) Entered as Reported by: MICHAEL BARILLAS on 11/11/18 1607 Cariprazine Hydrochloride (Vraylar) 1.5 Mg Capsule, 1.5 MG PO DAILY, (Reported) Entered as Reported by: JON AKERS on 08/31/19 0906 Cholecalciferol (Vitamin D3) (Vitamin D3) 2,000 Unit Tablet, 2,000 UNIT PO DAILY, (Reported) Entered as Reported by: DRAKE BUSH on 04/07/19 1309 Cyclobenzaprine HCl (Cyclobenzaprine HCl) 10 Mg Tablet, 10 MG PO BID PRN for PAIN-MODERATE (5-7), (Reported) Entered as Reported by: MICHAEL BARILLAS on 11/11/18 1619 Estradiol (Estrace Tablet) 2 Mg Tablet, 2 MG PO DAILY, (Reported) Entered as Reported by: JON AKERS on 08/31/19 0900 Ferrous Sulfate (Ferosul) 325 Mg Tablet, 325 MG PO DAILY, (Reported) Entered as Reported by: JON AKERS on 08/31/19 0906 Hydrocodone/Acetaminophen (Hydrocodone-Acetamin 5-325 mg) 5 Mg-325 Mg Tablet, 1 TAB PO Q4H PRN for PAIN-BREAKTHROUGH Prescribed by: RAIZA MALDONADO on 08/02/21 1523 Hydrocodone/Acetaminophen (Hydrocodone-Acetamin 5-325 mg) 5 Mg-325 Mg Tablet, 1 TAB PO Q4H PRN for PAIN-MODERATE (5-7) Prescribed by: MERNA SYLVESTER on 10/04/21 1523 Hyoscyamine Sulfate (Levsin-Sl) 0.125 Mg Tab.subl, 0.125 MG SL Q4H PRN for CRAMPS Prescribed by: RAIZA MALDONADO on 08/02/21 1522 Mirtazapine (Mirtazapine) 30 Mg Tablet, 30 MG PO HS, (Reported) Entered as Reported by: JON AKERS on 08/31/19 0906 Multivitamin (Multivitamins) 1 Each Tablet, 1 TAB PO DAILY, (Reported) Entered as Reported by: MICHAEL BARILLAS on 11/11/18 1623 Omeprazole (Omeprazole) 40 Mg Capsule.dr, 40 MG PO DAILY, (Reported) Entered as Reported by: JUSTINE BARBER on 03/06/17 1344 Ondansetron (Ondansetron Odt) 4 Mg Tab.rapdis, 4 MG SL Q4H PRN for NAUSEA/VOMITING Prescribed by: RAIZA MALDONADO on 03/26/21 2342 Ondansetron (Ondansetron Odt) 4 Mg Tab.rapdis, 4 MG PO Q6H Prescribed by: MERNA SYLVESTER on 06/28/21 1804 Ondansetron (Ondansetron Odt) 4 Mg Tab.rapdis, 4 MG SL Q4H PRN for NAUSEA/VOMITING Prescribed by: RAIZA MALDONADO on 08/02/21 1522 Ondansetron (Ondansetron Odt) 4 Mg Tab.rapdis, 4 MG PO Q4H Prescribed by: MERNA SYLVESTER on 10/04/21 1525 Paroxetine HCl (Paxil) 20 Mg Tablet, 20 MG PO DAILY, (Reported) Entered as Reported by: JON AKERS on 08/31/19 09 Plecanatide (Trulance) 3 Mg Tablet, 3 MG PO DAILY, (Reported) Entered as Reported by: MICHAEL BARILLAS on 11/11/18 160 Propranolol HCl (Propranolol HCl) 10 Mg Tablet, 10 MG PO BID PRN for ANXIETY, (Reported) Entered as Reported by: JON AKERS on 08/31/19 09 Vitamin B Complex (Super B-50 Complex) 1 Each Capsule, 1 EACH PO DAILY, (Reported) Entered as Reported by: JON AKERS on 08/31/19905 Review of Systems Review of Systems Constitutional: No chills, No diaphoresis; malaise, weakness EENTM: No Blurred Vision, No Eye Pain Respiratory: Denies Cough, Denies SOA With Exertion, Denies SOA at Rest Cardiovascular: Denies Chest Pain Gastrointestinal: Abdominal Pain; Denies Diarrhea; Vomiting Genitourinary: Denies Burning, Denies Discharge Musculoskeletal: back pain; No joint pain Skin: No change in color, No change in hair/nails (CARINE MARTINI) All Other Systems Reviewed Negative Unless Noted: Yes (CARINE MARTINI) Past Ncvnatd-Mjklti-Lscrnl Hx Immunizations Up To Date Tetanus Booster (TDap): Unknown First/Initial COVID19 Vaccinat: 2020 Second COVID19 Vaccination Ganesh: N/A Third COVID19 Vaccination Date: N/A (CARINE MARTINI) Seasonal Allergies Seasonal Allergies: No (CARINE MARTINI) Past Medical History Surgery/Hospitalization HX: History of HIV, Ulcers, Surgeries: Gastric bypass, Hernia repair, back surgery, RIVAS Surgeries: Yes (GASTRIC BYPASS, ABDOMINOPLASTY; HERNIA REPAIR) Abdominal, Adenoidectomy, Section, Gallbladder, Orthopedic, Pacemaker, Tonsillectomy Respiratory: Yes COPD Currently Using CPAP: No Cardiac: Yes (PACEMAKER FOR BRADYCARDIA) Neurological: No Vertigo Reproductive Disorders: No Sexually Transmitted Disease: No HIV/AIDS: Yes Genitourinary: Yes Kidney Infection, Kidney Stones Gastrointestinal: Yes Gastroesophageal Reflux, Chronic Constipation, Hiatal Hernia, Ulcer Musculoskeletal: No Endocrine: No HEENT: No Cancer: No Psychosocial: Yes ADD/ADHD, Anxiety, PTSD, Bipolar, Depression Integumentary: No Blood Disorders: Yes (hiv POS) Adverse Reaction/Blood Tranf: No (CARINE MARTINI) Family Medical History No Pertinent Family Hx (CARINE MARTINI) Physical Exam Vital Signs Vital Signs - First Documented 10/04/21 13:58 Temp 36.6 Pulse 57 Resp 16 B/P (MAP) 91/56 (68) O2 Delivery Room Air (CARINE SOSA MD) Vital Signs Capillary Refill : (CARINE MARTINI) Height/Weight/BMI Height: 5'4.00" Weight: 203lbs. 1.6oz. 92.639852gx; 31.00 BMI Method:Stated General Appearance: WD/WN, no apparent distress HEENT: PERRL/EOMI, normal ENT inspection, TMs normal, pharynx normal Neck: non-tender, full range of motion, supple, normal inspection Respiratory: chest non-tender, lungs clear, normal breath sounds, no respiratory distress, no accessory muscle use Cardiovascular: regular rate, rhythm, no edema, no gallop, no JVD Gastrointestinal: normal bowel sounds, soft, no organomegaly, other (Right lower quadrant tenderness. 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 as tested, no motor/sensory deficits, alert, normal mood/affect, oriented x 3 (CARINE MARTINI) Progress/Results/Core Measures Results/Orders Lab Results Laboratory Tests Test 10/04/21 14:12 10/04/21 14:25 Range/Units Urine Color YELLOW Urine Clarity CLEAR Urine pH 5.0 5-9 Urine Specific [place] >=1.030 1.016-1.022 Urine Protein NEGATIVE NEGATIVE Urine Glucose (UA) NEGATIVE NEGATIVE Urine Ketones TRACE H NEGATIVE Urine Nitrite NEGATIVE NEGATIVE Urine Bilirubin 1+ H NEGATIVE Urine Urobilinogen 0.2 < = 1.0 MG/DL Urine Leukocyte Esterase NEGATIVE NEGATIVE Urine RBC (Auto) NEGATIVE NEGATIVE Urine RBC NONE /HPF Urine WBC 5-10 H /HPF Urine Squamous Epithelial Cells 10-25 H /HPF Urine Crystals NONE /LPF Urine Bacteria FEW H /HPF Urine Casts NONE /LPF Urine Mucus SMALL H /LPF Urine Culture Indicated YES White Blood Count 5.3 4.3-11.0 10^3/uL Red Blood Count 4.76 3.80-5.11 10^6/uL Hemoglobin 14.2 11.5-16.0 g/dL Hematocrit 42 35-52 % Mean Corpuscular Volume 89 80-99 fL Mean Corpuscular Hemoglobin 30 25-34 pg Mean Corpuscular Hemoglobin Concent 34 32-36 g/dL Red Cell Distribution Width 13.7 10.0-14.5 % Platelet Count 234 130-400 10^3/uL Mean Platelet Volume 11.2 9.0-12.2 fL Immature Granulocyte % (Auto) 0 % Neutrophils (%) (Auto) 64 42-75 % Lymphocytes (%) (Auto) 25 12-44 % Monocytes (%) (Auto) 9 0-12 % Eosinophils (%) (Auto) 2 0-10 % Basophils (%) (Auto) 1 0-10 % Neutrophils # (Auto) 3.4 1.8-7.8 10^3/uL Lymphocytes # (Auto) 1.3 1.0-4.0 10^3/uL Monocytes # (Auto) 0.5 0.0-1.0 10^3/uL Eosinophils # (Auto) 0.1 0.0-0.3 10^3/uL Basophils # (Auto) 0.0 0.0-0.1 10^3/uL Immature Granulocyte # (Auto) 0.0 0.0-0.1 10^3/uL Sodium Level 140 135-145 MMOL/L Potassium Level 3.8 3.6-5.0 MMOL/L Chloride Level 107 98-107 MMOL/L Carbon Dioxide Level 23 21-32 MMOL/L Anion Gap 10 5-14 MMOL/L Blood Urea Nitrogen 13 7-18 MG/DL Creatinine 0.80 0.60-1.30 MG/DL Estimat Glomerular Filtration Rate 89 BUN/Creatinine Ratio 16 Glucose Level 91 70-105 MG/DL Calcium Level 9.9 8.5-10.1 MG/DL Corrected Calcium 8.5-10.1 MG/DL Total Bilirubin 0.4 0.1-1.0 MG/DL Aspartate Amino Transf (AST/SGOT) 14 5-34 U/L Alanine Aminotransferase (ALT/SGPT) 11 0-55 U/L Alkaline Phosphatase 94 40-136 U/L Total Protein 7.0 6.4-8.2 GM/DL Albumin 4.6 H 3.2-4.5 GM/DL Lipase 29 8-78 U/L (CARINE SOSA MD) Medications Given in ED Current Medications Medications Dose Ordered Sig/Brit Route Start Time Stop Time Status Last Admin Dose Admin Iohexol 100 ml ONCE ONCE IV 10/04/21 15:00 10/04/21 15:01 DC 10/04/21 14:57 97 ML Ketorolac Tromethamine 30 mg ONCE ONCE IVP 10/04/21 14:30 10/04/21 14:31 DC 10/04/21 14:32 30 MG Ondansetron HCl 4 mg ONCE ONCE IVP 10/04/21 14:30 10/04/21 14:31 DC 10/04/21 14:32 4 MG Sodium Chloride 100 ml ONCE ONCE IV 10/04/21 15:00 10/04/21 15:01 DC 10/04/21 14:58 100 ML (CARINE SOSA MD) Vital Signs/I&O 10/04/21 13:58 Temp 36.6 Pulse 57 Resp 16 B/P (MAP) 91/56 (68) O2 Delivery Room Air (CARINE SOSA MD) Departure Communication (PCP) Patient appears to have a UTI but not significant. Was given dose of Rocephin. Vital signs stable slightly hypotensive was given a liter fluid with improvement. Lab work was otherwise unremarkable. HIV positive currently on biktarvy. Patient does not appear septic or toxic. CT on pelvis without any acute abnormality. Patient was given IV pain medication with improvement of pain. Was given IV Zofran with improvement in nausea. Tolerate p.o. fluids. Patient is currently on amoxicillin. She states symptoms were worse yesterday appear to be improving. She is states she would rather continue taking amoxicillin. Culture currently pending. If any worsening symptoms return back to ED for further evaluation. Recommend follow-up with your PCP in 4 to 5 days with reevaluation urinalysis. We will provide a few days worth of pain medication. (CARINE MARTINI) Impression Primary Impression: UTI (urinary tract infection) Additional Impression: Abdominal pain Disposition: HOME, SELF-CARE Condition: Stable Departure-Patient Inst. Decision time for Depature: 15:22 (CARINE MARTINI) Referrals: NO,LOCAL PHYSICIAN (PCP/Family) Primary Care Physician Patient Instructions: Urinary Tract Infection, Adult (DC) Scripts Ondansetron (Ondansetron Odt) 4 Mg Tab.rapdis 4 MG PO Q4H, #6 TAB Prov: CARINE MARTINI 10/04/21 Hydrocodone/Acetaminophen (Hydrocodone-Acetamin 5-325 mg) 5 Mg-325 Mg Tablet 1 TAB PO Q4H PRN for PAIN-MODERATE (5-7), #4 TAB Prov: CARINE MARTINI 10/04/21 Work/School Note: Work Release Form Date Seen in the Emergency Department: Oct 04, 2021 Return to Work: Oct 06, 2021 CARINE MARTINI Oct 04, 2021 14:20 CARINE SOSA MD Oct 04, 2021 18:17
[2021-10-04 14:23] LABS: CLARITY,URINE CLEAR; COLOR,URINE YELLOW; GLUCOSE, URINE (UA) NEGATIVE (NEGATIVE); KETONES,URINE TRACE (NEGATIVE); LEUKOCYTE ESTERASE ,URINE NEGATIVE (NEGATIVE); NITRITE,URINE NEGATIVE (NEGATIVE); PROTEIN,URINE NEGATIVE (NEGATIVE)
[2021-10-04] MEDS ORDERED: ONDANSETRON 4 MG/2 ML (SDV) Z0FRAN IVP ONE (14:30)
[2021-10-04] MEDS ORDERED: KETOROLAC 30 MG/ML VIAL IVP ONE (14:30)
[2021-10-04 14:35] LABS: BACTERIA,URINE FEW /HPF; BILIRUBIN,URINE 1+ (NEGATIVE)
[2021-10-04 14:41] LABS: BASOPHILS % (AUTO) 1 % (0-10); EOSINOPHILS # (AUTO) 0.1 10^3/uL (0.0-0.3); EOSINOPHILS % (AUTO) 2 % (0-10); HEMATOCRIT 42 % (35-52); HEMOGLOBIN 14.2 g/dL (11.5-16.0); LYMPHOCYTES # (AUTO) 1.3 10^3/uL (1.0-4.0); LYMPHOCYTES % (AUTO) 25 % (12-44); MEAN CORPUSCULAR HEMOGLOBIN 30 pg (25-34); MEAN CORPUSCULAR HGB CONC 34 g/dL (32-36); MEAN CORPUSCULAR VOLUME 89 fL (80-99); MEAN PLATELET VOLUME 11.2 fL (9.0-12.2); MONOCYTES # (AUTO) 0.5 10^3/uL (0.0-1.0); MONOCYTES % (AUTO) 9 % (0-12); NEUTROPHILS # (AUTO) 3.4 10^3/uL (1.8-7.8); NEUTROPHILS % (AUTO) 64 % (42-75); PLATELET COUNT 234 10^3/uL (130-400); WHITE BLOOD COUNT 5.3 10^3/uL (4.3-11.0)
[2021-10-04 14:51] LABS: ALBUMIN 4.6 GM/DL (3.2-4.5); CHLORIDE 107 MMOL/L (98-107); POTASSIUM 3.8 MMOL/L (3.6-5.0); SODIUM 140 MMOL/L (135-145)
[2021-10-04 14:52] LABS: CALCIUM 9.9 MG/DL (8.5-10.1)
[2021-10-04 14:53] LABS: GLUCOSE 91 MG/DL (70-105)
[2021-10-04 14:54] LABS: CARBON DIOXIDE 23 MMOL/L (21-32)
[2021-10-04 14:55] LABS: BILIRUBIN,TOTAL 0.4 MG/DL (0.1-1.0)
[2021-10-04 14:57] LABS: ALKALINE PHOSPHATASE 94 U/L (40-136); GFR ESTIMATED 89
[2021-10-04 14:58] LABS: BUN/CREATININE RATIO 16
[2021-10-04 15:00] LABS: ALANINE AMINOTRANSFERASE 11 U/L (0-55); LIPASE 29 U/L (8-78)
[2021-10-04] MEDS ORDERED: NS 100 ML (IVPB) BAG IV ONE (15:00)
[2021-10-04] MEDS ORDERED: IOHEXOL 350 MG/ML 100 ML (OMNIPAQUE 350) VIAL IV ONE (15:00)
[2021-10-04] MEDS ORDERED: HOLD METFORMIN - RECEIVED CONTRAST 20 ML VIAL IV SCH (15:00)
--- NOTE | 2021-10-04 15:11 | Diagnostic Imaging Report ---
PROCEDURE: CT abdomen and pelvis with contrast. TECHNIQUE: Multiple contiguous axial images were obtained through the abdomen and pelvis after administration of intravenous contrast. Auto Exposure Controls were utilized during the CT exam to meet ALARA standards for radiation dose reduction. All CT scans use one or more of the following dose optimizing techniques: automated exposure control, MA and/or KvP adjustment based on patient size and exam type or iterative reconstruction. INDICATION: Bilateral flank pain. CORRELATION is made with prior CT from 05/30/2021. The lung bases are clear. No focal liver mass is detected. The gallbladder is surgically absent. No biliary ductal dilatation is seen. The pancreas and spleen are unremarkable. Postop changes from gastric bypass surgery are noted. No adrenal mass is detected. The kidneys are unremarkable. No hydronephrosis or definite calculi are seen. No definite ureteral or bladder calculi are detected. Aorta is calcified but nonaneurysmal. Small and large bowel loops appear fairly normal caliber. There is a focal fairly dilated small bowel loop in the left abdomen which does show anastomotic sutures consistent with prior surgery. No definite bowel wall thickening is identified. No obstruction is identified. No free fluid or fluid collection is seen. There is no free air. The uterus and bladder are unremarkable. IMPRESSION: There are postop changes of cholecystectomy, gastric bypass as well as surgery involving small bowel loops in the left abdomen. There does appear to be some fluid-filled dilatation of the small bowel at the surgical site in the left abdomen, nonspecific. The study is otherwise unremarkable. Dictated by: Dictated on workstation # [id number]
[2021-10-04] MEDS ORDERED: cefTRIAXone 1 GM PRE-MIX 50 ML IV STA (15:21)
[2021-10-04] MEDS ORDERED: ACHD5005 PO (15:23)
[2021-10-04] MEDS ORDERED: ONDA4TAB11 PO (15:25)
[2021-10-04 15:49] VITALS: BP 151/75
== END 2021-10-04 15:49 | disposition home or self-care (01) ==
LOC: EDUNIT# 13:30 → ER 13:33
DX: N39.0 Urinary tract infection, site not specified (principal); I95.9 Hypotension, unspecified; Z21 Asymptomatic human immunodeficiency virus [HIV] infection status; Z87.442 Personal history of urinary calculi; Z98.84 Bariatric surgery status; Z90.49 Acquired absence of other specified parts of digestive tract; Z28.311 Partially vaccinated for COVID-19
CPT/HCPCS: 36415; 74177; 80053; 81000; 83690; 85025; 86361; 87088; 96361; 96374; 96375; 99281

== ENCOUNTER 2021-10-10 08:55 | Day surgery (SDC) | payer MEDICARE, MEDICAID ==
--- NOTE | 2021-10-03 08:32 | HISTORY AND PHYSICAL ---
DATE OF SERVICE: ADMISSION HISTORY AND PHYSICAL This will be for outpatient surgery on 10/10/2021 for left knee arthroscopy. 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 She reports pain and dysfunction in her left knee due to mechanical symptoms including catching and locking. She reports gradually worsening over time. She reports some feelings of instability at times. Radiographs revealed mild medial and patellofemoral joint space narrowing due to functional impairment and failure to improve with conservative measures, the patient elected to proceed with surgical intervention. REVIEW OF SYSTEMS: No chest pain, no shortness of breath, no dysuria. PAST MEDICAL HISTORY: HIV, anemia, depression, hand fracture, headaches, hypothyroidism, pelvic pain, uterine anomaly, urinary tract infection, varicose veins, COPD, pacemaker, coronary artery disease. PAST SURGICAL HISTORY: , breast reduction, cholecystectomy, panniculectomy, gastric bypass, herniorrhaphy, pacemaker, ORIF left hand and right wrist and right knee arthroscopy. FAMILY HISTORY: Significant for cancer. PRIMARY CARE PROVIDER: [facility]. MEDICATIONS: Triamcinolone, Ozempic, omeprazole, MiraLax, clobetasol, Claritin, amitriptyline, Biktarvy. ALLERGIES: No known drug allergies. SOCIAL HISTORY: The patient has smoked half pack of cigarettes a day up until 3 years ago. She is a former meth user. PHYSICAL EXAMINATION: GENERAL: The patient is a well-developed, well-nourished, in no acute distress. HEENT: Normocephalic, atraumatic. Pupils are equal, round and reactive to light. Oropharynx is clear. NECK: Supple, no lymphadenopathy. LUNGS: Clear to auscultation bilaterally. HEART: Regular rate and rhythm. ABDOMEN: Soft, nontender, nondistended. EXTREMITIES: Left knee demonstrates patellofemoral crepitus and pain with patellar loading. She has a slight effusion. She is tender along the medial and lateral joint lines. She has pain medially with Jatin's. IMPRESSION: Left knee medial meniscus tear with chondromalacia and mechanical symptoms. PLAN: Plan for left knee arthroscopy with partial medial meniscectomy and chondroplasty. The risks, benefits, options, ramifications and recovery were discussed at length with the patient. She understands and wishes to proceed. Job ID: [id number] DocumentID: [id number] Dictated Date: 09/24/2021 12:48:53 Degreasing Solution Reclaimer Date: 09/24/2021 13:01:55 Dictated By: EMILE GARCIA MD
[~2021-10-10] VITALS: Ht 162 cm; Wt 77.1 kg
[2021-10-10] VITALS (11 sets, daily range): BP systolic 88–100; BP diastolic 39–68
[~2021-10-10 08:55] MED LIST changes: +HYDROcodone/APAP 7.5 MG/325 MG (LORTAB, LORCET PLUS) TABLET PO PRN
--- NOTE | 2021-10-10 09:11 | Progress Note-Pre Operative ---
Pre-Operative Progress Note H&P Reviewed The H&P was reviewed, patient examined and no changes noted. Date Seen by Provider: Oct 10, 2021 Time Seen by Provider: 09:11 Date H&P Reviewed: Oct 10, 2021 Time H&P Reviewed: 07:11 Pre-Operative Diagnosis: left knee medial mensicus tear and chondromalacia EMILE GARCIA MD Oct 10, 2021 09:11
--- NOTE | 2021-10-10 09:12 | Progress Note-Post Operative ---
Post-Operative Progess Note Surgeon (s)/Audio/Visual Manager (s) Surgeon EMILE GARCIA MD Audio/Visual Manager: Vaibhav Vernon Pre-Operative Diagnosis left knee medial mensicus tear and chondromalacia Post-Operative Diagnosis left knee lateral mensicus tear and chondromalacia of the patella and lateral tibial plateau Procedure & Operative Findings Date of Procedure 10/10/21 Procedure Performed/Findings left knee arthroscopic partial lateral meniscectomy and chondroplasty of the patella and lateral tibial plateau Anesthesia Type GETA Estimated Blood Loss Estimated blood loss (mL): minimal Specimens/Packing Specimens Removed none Packing: none EMILE GARCIA MD Oct 10, 2021 09:12
[2021-10-10] MEDS ORDERED: LACTATED RINGERS 1,000 ML IV PRN (09:15)
[2021-10-10] MEDS ORDERED: ceFAZolin 2 GM IV Premixed 50 ML IV ONE (09:15)
[2021-10-10] MEDS ORDERED: AMIT25TA9 PO (09:47)
[2021-10-10] MEDS ORDERED: MIDAZOLAM 2 MG/2 ML (VERSED) VIAL ONE ×2 (09:52→10:56)
[2021-10-10] MEDS ORDERED: ONDANSETRON 4 MG/2 ML (SDV) Z0FRAN ONE (09:53)
[2021-10-10] MEDS ORDERED: fentaNYL INJ 100 MCG/2 ML AMP ONE ×2 (09:53→11:53)
[2021-10-10] MEDS ORDERED: proPOfol 200 MG/20 ML (DIPRIVAN) VIAL IV ONE (09:53)
[2021-10-10] MEDS ORDERED: LIDOCAINE PF 2% 5 ML (XYLOCAINE) VIAL ONE (09:53)
[2021-10-10] MEDS ORDERED: MIDAZOLAM 2 MG/2 ML (VERSED) VIAL IV ONE (10:00)
[2021-10-10] MEDS ORDERED: morphine PF (DURAMORPH) 10 MG/10 ML AMP ONE (10:32)
[2021-10-10] MEDS ORDERED: BUPIVACAINE 0.25% 30 ML (SENSORCAINE) VIAL ONE (10:33)
[2021-10-10] MEDS ORDERED: SEVOFLURANE (ULTANE) 15 ML INHAL SOLN ONE (11:27)
--- NOTE | 2021-10-10 11:47 | Anesthesia-General Post-Op ---
General Patient Condition Mental Status/LOC: Same as Preop Cardiovascular: Satisfactory Nausea/Vomiting: Absent Respiratory: Satisfactory Pain: Controlled Complications: Absent Post Op Complications Complications None Follow Up Care/Instructions Patient Instructions None needed. Anesthesia/Patient Condition Patient Condition Patient is doing well, no complaints, stable vital signs, no apparent adverse anesthesia problems. No complications reported per nursing. BRAULIO EID CRNA Oct 10, 2021 11:47
[2021-10-10] MEDS ORDERED: ONDANSETRON 4 MG/2 ML (SDV) Z0FRAN IVP PRN (12:00)
[2021-10-10] MEDS ORDERED: morphine INJ 10 MG/ML 1ML (SYR OR VIAL) IVP ONE (12:00)
[2021-10-10] MEDS ORDERED: fentaNYL INJ 100 MCG/2 ML AMP IVP ONE (12:00)
--- NOTE | 2021-10-10 13:56 | Physical Therapy Ortho Eval ---
PT Orthopedic Evaluation Type of Surgery Knee Scope WBAT LLE Prior Level of Function Current Living Status: Alone Locomotion (Upon Admit): Independent Subjective Subjective Patient in bed pre tx, agrees to PT, has 6/10 pain in left knee. Entry Into Home: Stairs With Railing Steps Into Home: 2 Motor Control Motor Control: Motor Control WNL ROM Patient can achieve full extension of the left knee and 90 degrees of flexion Transfer SCALE: Activities may be completed with or without assistive devices. 6-Vusueszxpf-ovsrkdm completes the activity by him/herself with no assistance from a helper. 5-Set-up or Clean-up Assistance-helper sets up or cleans up; patient completes activity. [place] assists only prior to or following the activity. 4-Supervision or Touching Assistance-helper provides verbal cues and/or touching/steadying and/or contact guard assistance as patient completes ac tivity. Assistance may be provided throughout the activity or intermittently. 3-Partial/Moderate Assistance-helper does LESS THAN HALF the effort. [place] lifts, holds or supports trunk or limbs, but provides less than half the effort. 2-Substantial/Maximal Assistance-helper does MORE THAN HALF the effort. [place] lifts or holds trunk or limbs and provides more than half the effort. 5-Riuntdsal-ouatty does ALL the effort. Patient does none of the effort to complete the activity. Or, the assistance of 2 or more helpers is required for the patient to complete the activity. If activity was not attempted, code reason: 7-Patient Refused. 9-Not Applicable-not attempted and the patient did not perform the activity before the current illness, exacerbation or injury. 10-Not Attempted due to Environmental Limitations-(lack of equipment, weather restraints, etc.). 88-Not Attempted due to Medical Conditions or Safety Concerns. Transfers (B, C, W/C) (QC): 4 Gait Gait Assistive Device: None Summary/Comments Patient ambulated 100' without an assistive device with SBA, patient has a slight limp. Patient also went up and down 1 step with wall support with SBA and cues for foot placement. Treatment Rendered Treatment: Therapeutic Exercises, Gait Train, Step Train Exercise Instruction: Quad Sets, Heel Slides Assessment/Goals Goal Time Frame: 1 Visit Understands HEP: Yes Safe Ambulation: Yes Plan Treatment Plan: Discharge PT/Family Agrees to Plan: Yes Time Time In: 1308 Time Out: 1318 Total Billed Treatment Time: 10 Billed Treatment Time 1 visit EVL 10' ALEX FERGUSON PT Oct 10, 2021 13:56
--- NOTE | 2021-10-10 17:55 | OPERATIVE REPORT ---
DATE OF SERVICE: 10/10/2021 PREOPERATIVE DIAGNOSES: 1. Left knee medial meniscus tear. 2. Left knee chondromalacia of patella. POSTOPERATIVE DIAGNOSES: 1. Left knee lateral meniscus tear. 2. Left knee chondromalacia of patella. 3. Left knee chondromalacia of the lateral tibial plateau. PROCEDURES: 1. Left knee arthroscopic partial lateral meniscectomy. 2. Left knee arthroscopic chondroplasty of the patella. 3. Left knee arthroscopic chondroplasty of the lateral tibial plateau. SURGEON: Mauricio Garcia MD OR MANAGER: Vaibhav Vernon, who assisted throughout the procedure and closed the incisions. ANESTHESIA: General endotracheal by Diana Oseguera CRNA. TOURNIQUET TIME: Not applicable. ESTIMATED BLOOD LOSS: Minimal. DRAINS: None. COMPLICATIONS: None. POSTOPERATIVE PLAN: Routine arthroscopy protocol. The patient was transferred to the recovery room awake and in stable condition. STATEMENT OF MEDICAL NECESSITY: The patient is a 50-year-old female with left knee pain, catching, locking and swelling. She had patellofemoral crepitus and pain with patellar loading. She tried rest, activity modifications, anti-inflammatories without relief. Due to functional impairment and failure to improve with conservative measures, the patient elected to proceed with surgical intervention. Examination under anesthesia revealed range of motion of 0/0/135 with negative Brijesh, negative anterior and posterior drawer. No varus or valgus laxity, negative pivot shift. ARTHROSCOPIC FINDINGS: The patella demonstrated grade II chondral flaps inferiorly in an 8 x 8 area. The suprapatellar pouch was compartmentalized. The medial and lateral gutters were clear. The ACL and PCL were intact. The medial compartment demonstrated no significant meniscal or chondral pathology. The lateral compartment demonstrated grade II chondral flap over the posterior aspect of the tibial plateau in a 5 x 5 area with a tear of the body of the lateral meniscus involving approximately 20% of the body. DESCRIPTION OF PROCEDURE: After risks and benefits of procedure were discussed and questions were answered and informed consent was signed and placed on chart, the operative site was confirmed in the preoperative holding area initialed by the surgeon. The patient was then transferred to the operating room. After adequate levels of general endotracheal anesthetic were obtained, a timeout was called, confirming the operative site. Examination under anesthesia was performed with the above findings noted. The left lower extremity was prepped and draped in the usual sterile fashion. The knee joint was injected with 60 mL of fluid and standard inferolateral portal placed arthroscope under direct visualization, inferior medial portal was created. The menisci and cruciates carefully probed with above findings noted. Then, several chondral flaps on the patella were debrided with a shaver back to a stable edge. The suprapatellar pouch was opened with a shaver. The scope was then redirected into the lateral compartment where the lateral meniscus tear was debrided with a shaver back to a stable edge. The unstable chondral flap of the lateral tibial plateau was debrided with a shaver back to stable edges well. The knee was copiously irrigated. The portal sites were closed with 4-0 nylon in simple interrupted fashion. Knee was injected with Duramorph. Port sites were infiltrated with plain Marcaine. A soft dressing was applied, and the patient was transferred to the recovery room awake and in stable condition. Job ID: [id number] DocumentID: [id number] Dictated Date: 10/10/2021 11:31:10 Parliamentary Counsel Date: 10/10/2021 17:54:46 Dictated By: MAURICIO GARCIA MD
== END 2021-10-10 13:45 | disposition home or self-care (01) ==
LOC: SDC 08:55
PROVIDERS: ATTEND Orthopaedic Surgery
DX: S83.282A Other tear of lateral meniscus, current injury, left knee, initial encounter (principal); M22.42 Chondromalacia patellae, left knee
CPT/HCPCS: 84703; 87081

== ENCOUNTER 2021-12-12 07:50 | Observation (INO) | payer MEDICARE, MEDICAID ==
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
[2021-12-12] VITALS (16 sets, daily range): BP systolic 95–115; BP diastolic 51–83
[~2021-12-12] VITALS: Ht 162.6 cm; Wt 77.2 kg
[~2021-12-12 07:50] MED LIST changes: +AMIT25TA9 PO; -HYDROcodone/APAP 7.5 MG/325 MG (LORTAB, LORCET PLUS) TABLET PO PRN
[2021-12-12] MEDS ORDERED: ceFAZolin INJECTION 1,000 MG VIAL IV ONE (08:00)
[2021-12-12] MEDS ORDERED: BUPIVACAINE 0.25% 30 ML (SENSORCAINE) VIAL ONE (08:18)
[2021-12-12] MEDS ORDERED: morphine PF (DURAMORPH) 10 MG/10 ML AMP ONE (08:18)
[2021-12-12 08:20] LABS: AMPHETAMINE SCREEN, URINE NEGATIVE (NEGATIVE); BARBITURATE SCREEN URINE NEGATIVE (NEGATIVE); BENZODIAZEPINES SCREEN URINE NEGATIVE (NEGATIVE); CANNABINOID SCREEN, URINE NEGATIVE (NEGATIVE); COCAINE SCREEN URINE NEGATIVE (NEGATIVE); METHADONE STAT NEGATIVE (NEGATIVE); OPIATE SCREEN URINE NEGATIVE (NEGATIVE); OXYCODONE STAT NEGATIVE (NEGATIVE); PROPOXYPHENE STAT NEGATIVE (NEGATIVE); TRICYCLIC ANTIDEPRESSANTS SCRE POSITIVE (NEGATIVE)
[2021-12-12] MEDS: LACTATED RINGERS 1,000 ML IV PRN ×2 (08:21→11:04)
[2021-12-12] MEDS ORDERED: proPOfol 200 MG/20 ML (DIPRIVAN) VIAL IV ONE (08:29)
[2021-12-12] MEDS ORDERED: LIDOCAINE PF 2% 5 ML (XYLOCAINE) VIAL ONE (08:29)
[2021-12-12] MEDS ORDERED: MIDAZOLAM 2 MG/2 ML (VERSED) VIAL ONE (08:29)
[2021-12-12] MEDS ORDERED: ONDANSETRON 4 MG/2 ML (SDV) Z0FRAN ONE (08:29)
[2021-12-12] MEDS ORDERED: fentaNYL INJ 100 MCG/2 ML AMP ONE (08:29)
[2021-12-12] MEDS ORDERED: MIDAZOLAM 2 MG/2 ML (VERSED) VIAL IVP NR (09:00)
--- NOTE | 2021-12-12 09:36 | Progress Note-Pre Operative ---
Pre-Operative Progress Note Date of Available H&P: Dec 05, 2021 Date H&P Reviewed: Dec 12, 2021 Time H&P Reviewed: 09:29 Changes from last HP none Pre-Operative Diagnosis: right knee chondromalacia and medial meniscus tear EMILE GARCIA MD Dec 12, 2021 09:36
--- NOTE | 2021-12-12 09:38 | Progress Note-Post Operative ---
Post-Operative Progess Note Surgeon (s)/Dean Of Students (s) Surgeon EMILE GARCIA MD Dean Of Students: Vaibhav Vernon Pre-Operative Diagnosis right knee chondromalacia and medial meniscus tear Post-Operative Diagnosis right knee chondromalacia of the medial femoral condyle and lateral tibial plateau Procedure & Operative Findings Date of Procedure 12/12/21 Procedure Performed/Findings right knee arthroscopic chondroplasty of the medial femoral condyle and lateral tibial plateau Anesthesia Type GETA Estimated Blood Loss Estimated blood loss (mL): minimal Specimens/Packing Specimens Removed none Packing: none EMILE GARCIA MD Dec 12, 2021 09:38
[2021-12-12] MEDS ORDERED: SEVOFLURANE (ULTANE) 15 ML INHAL SOLN ONE (10:03)
[2021-12-12] MEDS ORDERED: morphine PF (DURAMORPH) 10 MG/10 ML AMP INJ ONE (10:20)
[2021-12-12] MEDS ORDERED: BUPIVACAINE 0.25% 30 ML (SENSORCAINE) VIAL INJ ONE (10:22)
[2021-12-12] MEDS ORDERED: ONDANSETRON 4 MG/2 ML (SDV) Z0FRAN IVP PRN (10:30)
[2021-12-12] MEDS ORDERED: MEPERIDINE (DEMEROL) INJ 50 MG/ML IVP ONE (10:30)
[2021-12-12] MEDS ORDERED: morphine INJ 10 MG/ML 1ML (SYR OR VIAL) IVP ONE (10:30)
--- NOTE | 2021-12-12 11:14 | Diagnostic Imaging Report ---
EXAMINATION: Chest, 1 view. HISTORY: Aspiration. COMPARISON: 06/28/2021. FINDINGS: Heart size and pulmonary vasculature are normal. There are mild interstitial opacities within the right lung base. No pleural effusion or pneumothorax. The osseous structures are intact. Left-sided cardiac device is unchanged. IMPRESSION: Mild interstitial opacities within the right lung base which can be seen with history of aspiration versus atelectasis. Dictated by: Dictated on workstation # [id number]
[2021-12-12] MEDS: HYDROcodone/APAP 7.5 MG/325 MG (LORTAB, LORCET PLUS) TABLET PO PRN ×4 (11:47→23:41)
--- NOTE | 2021-12-12 12:47 | Physical Therapy Ortho Eval ---
PT Orthopedic Evaluation Type of Surgery Knee Scope WBAT RLE Transfer SCALE: Activities may be completed with or without assistive devices. 1-Ijhkzagcvj-qejubsz completes the activity by him/herself with no assistance from a helper. 5-Set-up or Clean-up Assistance-helper sets up or cleans up; patient completes activity. Douglas assists only prior to or following the activity. 4-Supervision or Touching Assistance-helper provides verbal cues and/or touching/steadying and/or contact guard assistance as patient completes activity. Assistance may be provided throughout the activity or intermittently. 3-Partial/Moderate Assistance-helper does LESS THAN HALF the effort. Douglas lifts, holds or supports trunk or limbs, but provides less than half the effort. 2-Substantial/Maximal Assistance-helper does MORE THAN HALF the effort. Douglas lifts or holds trunk or limbs and provides more than half the effort. 9-Zjzjgfpfw-hosmqh does ALL the effort. Patient does none of the effort to complete the activity. Or, the assistance of 2 or more helpers is required for the patient to complete the activity. If activity was not attempted, code reason: 7-Patient Refused. 9-Not Applicable-not attempted and the patient did not perform the activity before the current illness, exacerbation or injury. 10-Not Attempted due to Environmental Limitations-(lack of equipment, weather restraints, etc.). 88-Not Attempted due to Medical Conditions or Safety Concerns. Gait Summary/Comments Nurse states she has already ambulated with patient to the restroom and back and that patient did great. Patient doesn't want to ambulate again but would like a handout of exercises to do at home. This was provided for patient and she did the exercises under therapist supervision. Treatment Rendered Treatment: Therapeutic Exercises Exercise Instruction: Quad Sets, Straight Leg Raise, Heel Slides Assessment/Goals Goal Time Frame: 1 Visit Understands HEP: Yes Safe Ambulation: Yes (according to nurse) Plan Treatment Plan: Discharge PT/Family Agrees to Plan: Yes Time Time In: 1235 Time Out: 1243 Total Billed Treatment Time: 8 Billed Treatment Time 1 visit IFEANYIGabi ALEX GUEVARA PT Dec 12, 2021 12:47
[2021-12-12] MEDS ORDERED: CIPR250T3 PO (12:51)
--- NOTE | 2021-12-12 14:53 | OPERATIVE REPORT ---
DATE OF SERVICE: 12/12/2021 PREOPERATIVE DIAGNOSES: 1. Right knee chondromalacia of the medial femoral condyle. 2. Right knee medial meniscus tear. POSTOPERATIVE DIAGNOSES: 1. Right knee chondromalacia of the medial femoral condyle. 2. Right knee chondromalacia of the lateral tibial plateau. PROCEDURES: 1. Right knee arthroscopic chondroplasty of the medial femoral condyle. 2. Right knee arthroscopic chondroplasty of the lateral tibial plateau. SURGEON: Mauricio Gillespie MD AD OPERATIONS ASSOCIATE: Vaibhav Vernon, who assisted throughout the procedure and closed the incisions. ANESTHESIA: General endotracheal by Haseeb Calix CRNA. TOURNIQUET TIME: Not applicable. ESTIMATED BLOOD LOSS: Minimal. DRAINS: None. COMPLICATIONS: None. POSTOPERATIVE PLAN: Routine arthroscopy protocol. The patient was transferred to the recovery room awake and stable condition. STATEMENT OF MEDICAL NECESSITY: The patient is a 50-year-old female with complaints of right knee pain, catching, locking and swelling. She tried rest, activity modifications, anti-inflammatories, and injections without relief. Due to functional impairment and failure to improve with conservative measures, the patient elected to proceed with surgical intervention. She had pain with patellar loading. She was tender along the medial joint line. She had pain medially with Jatin's. Examination under anesthesia revealed range of motion of 0/0/140 with negative Brijesh, negative anterior and posterior drawer. No varus or valgus laxity and negative pivot shift. Arthroscopic findings, the suprapatellar pouch was compartmentalized. The patella trochlea demonstrated no significant chondral abnormalities. The medial and lateral gutters were clear. The ACL and PCL were intact. The medial compartment demonstrated grade II chondral flap near the intercondylar notch in an 10 x 10 area. No meniscal pathology was noted. The lateral compartment demonstrated grade II chondral flap over the posterior portion of the tibial plateau in a 10 x 10 area. PROCEDURE IN DETAIL: After risks and benefits of procedure were discussed and questions were answered, informed consent was signed and placed on chart, the operative site was confirmed in the preoperative holding area initialed by the surgeon. The patient was then transferred to the operating room. After adequate levels of general endotracheal anesthetic were obtained, a timeout was called, confirming the operative site. The right lower extremity was prepped and draped in the usual sterile fashion after an examination under anesthesia. The knee joint was infiltrated with 60 mL of fluid. An inferolateral portal was placed with the arthroscope under direct visualization, inferior medial portal was created. The menisci and cruciates carefully probed with the above findings noted. The suprapatellar pouch was opened with a shaver. The scope was then redirected into the medial compartment chondral flaps in the medial femoral condyle were debrided with shaver back to a stable edge. Scope was redirected into the lateral compartment and unstable chondral flaps in lateral tibial plateau were debrided with a shaver back to a stable edge. The knee was copiously irrigated. Port sites were closed with 4-0 nylon in septic fashion. Knee was injected with Duramorph. Port sites were infiltrated with plain Marcaine. A soft dressing was applied. The patient was transferred to the recovery room awake and in stable condition. Job ID: [id number] DocumentID: [id number] Dictated Date: 12/12/2021 10:18:57 [employer] Date: 12/12/2021 14:53:02 Dictated By: MAURICIO GILLESPIE MD
[2021-12-12] MEDS ORDERED: FLU QUADRIvalent (6 months+) 60 mcg/0.5 ml 2022-23 (Fluzone) IM ONE (17:15)
[2021-12-12] MEDS ORDERED: cefTRIAXone 1 GM PRE-MIX 50 ML IV SCH (19:15)
[2021-12-12] MEDS ORDERED: cefTRIAXone 1 GM PRE-MIX 50 ML IV ONE (19:47)
[2021-12-12] MEDS ORDERED: AMITRIPTYLINE 25 MG (ELAVIL) TAB ONE (20:05)
[2021-12-12] MEDS ORDERED: AMITRIPTYLINE 25 MG (ELAVIL) TAB PO SCH (21:00)
--- NOTE | 2021-12-12 21:31 | History & Physical ---
HPI History of Present Illness: 50 yo F that was admitted from same day surgery. She was having a knee scope and at the end of the case she vomited and there was some concern about aspiration. After surgery she was placed on oxygen and was aroun 90-91 percent. No previous oxygen need. States that her pain is well controlled. States that she was rece ntly started on antibiotic for UTI. Patient states that she has been on antibiotics on and off for the last 3-4 months. Source: patient Exam Limitations: no limitations Date seen by provider: Dec 12, 2021 Time Seen by Provider: 17:05 Attending Physician Mak Pineda DO PCP Admitting Physician: Jayla Marin MD Attending Physician: Jayla Marin MD Consult Date of Admission Dec 12, 2021 at 15:00 Home Medications Home Medications Reviewed patient Home Medication Reconciliation performed by pharmacy medication reconciliations industrial hygiene technician and/or nursing. Patients Allergies have been reviewed. Allergies Coded Allergies: No Known Drug Allergies (Unverified , 03/10/16) LTW-Mdvgjy-Pcxrxx Hx Patient Social History Drug of Choice: HX meth, cannibus Smoking Status: Current Everyday Smoker 2nd Hand Smoke Exposure: No Recent Hopitalizations: No Immunizations Up To Date Tetanus Booster (TDap): Unknown Influenza Vaccine Up-to-Date: No; Not Current First/Initial COVID19 Vaccinat: 2020 Second COVID19 Vaccination Ganesh: N/A Third COVID19 Vaccination Date: N/A Past Medical History HIV Family Medical History Significant Family History: No Pertinent Family Hx Review of Systems (CHC) Constitutional: no symptoms reported EENTM: no symptoms reported Respiratory: cough Cardiovascular: no symptoms reported Gastrointestinal: abdominal pain Genitourinary: dysuria, hematuria Musculoskeletal: no symptoms reported Skin: no symptoms reported Physical Exam-([facility]) Physical Exam Vital Signs VS - Last 72 Hours, by Label 12/12/21 12/12/21 12/12/21 12/12/21 07:54 10:14 10:14 10:20 Temp 36.1 36.2 Pulse 60 Resp 20 16 16 B/P (MAP) 100/61 (74) 105/83 (90) 105/72 (83) Pulse Ox 99 94 95 O2 Delivery Room Air OxyMask OxyMask OxyMask O2 Flow Rate 8.00 8.00 6.00 912/12/21 12/12/21 12/12/21 10:30 10:30 10:40 10:45 Resp 18 16 B/P (MAP) 105/64 (78) 99/69 (79) Pulse Ox 95 94 O2 Delivery OxyMask OxyMask Nasal Cannula Nasal Cannula O2 Flow Rate 4.00 4.00 2.00 2.00 12/12/21 12/12/21 12/12/21 12/12/21 10:50 11:00 11:08 11:10 Temp 36.9 36.0 Pulse 60 Resp 14 16 18 B/P (MAP) 98/77 (84) 105/80 (88) 115/72 Pulse Ox 93 93 94 O2 Delivery Nasal Cannula Nasal Cannula Nasal Cannula Nasal Cannula O2 Flow Rate 2.00 2.00 2.00 2.00 12/12/21 12/12/21 12/12/21 12/12/21 11:50 12:20 13:00 14:40 Temp 36.4 36.0 36.0 Pulse 60 68 73 Resp 18 18 18 B/P (MAP) 105/71 96/55 96/59 Pulse Ox 94 93 93 98 O2 Delivery Nasal Cannula Nasal Cannula Nasal Cannula Room Air O2 Flow Rate 2.00 2.00 2.00 12/12/21 12/12/21 12/12/21 12/12/21 15:44 16:13 17:04 19:22 Temp 36.3 36.3 36.1 Pulse 60 60 78 Resp 18 18 18 B/P (MAP) 95/51 (66) 95/51 (66) 104/69 (81) Pulse Ox 97 97 98 96 O2 Delivery Nasal Cannula Room Air Room Air Room Air O2 Flow Rate 2.00 Capillary Refill : General Appearance: WD/WN, no apparent distress HEENT: PERRL/EOMI Neck: non-tender, full range of motion Respiratory: chest non-tender, lungs clear, normal breath sounds, no respiratory distress, no accessory muscle use Cardiovascular: normal peripheral pulses, regular rate, rhythm, no edema, no murmur Peripheral Pulses: 0 Carotid (R), 0 Carotid (L), 0 Femoral (R), 0 Femoral (L), 0 Dorsalis Pedis (R), 0 Left Dors-Pedis (L), 0 Radial Pulses (R), 0 Radial Pulses (L) Gastrointestinal: normal bowel sounds, non tender, soft Back: no CVA tenderness, no vertebral tenderness Extremities: normal range of motion, non-tender, no pedal edema, no calf tenderness Neurologic/Psychiatric: technology sales representative II-XII nml as tested, alert, oriented x 3 Skin: normal color, warm/dry Lymphatic: no adenopathy Assessment/Plan Assessment/Plan Admission Status: Observation (1) Shortness of breath Status: Acute Assessment & Plan: - Will repeat CXR in the AM, Encouraged IS, monitoring overnight (2) UTI (urinary tract infection) Status: Chronic Assessment & Plan: - Started on Rocephin, Discussed the importance of pushing fluids Qualifiers: Qualified Codes: N30.00 - Acute cystitis without hematuria JAYLA MARIN MD Dec 12, 2021 21:31
[2021-12-12] MEDS ORDERED: ALPRAZolam 1 MG (XANAX) TAB PO ONE (22:45)
[2021-12-13 04:19] VITALS: BP 94/53
[2021-12-13 05:29] LABS: BASOPHILS % (AUTO) 0 % (0-10); EOSINOPHILS # (AUTO) 0.1 10^3/uL (0.0-0.3); EOSINOPHILS % (AUTO) 1 % (0-10); HEMATOCRIT 39 % (35-52); LYMPHOCYTES % (AUTO) 7 % (12-44); MEAN CORPUSCULAR HEMOGLOBIN 30 pg (25-34); MEAN CORPUSCULAR HGB CONC 34 g/dL (32-36); MEAN CORPUSCULAR VOLUME 90 fL (80-99); MEAN PLATELET VOLUME 11.8 fL (9.0-12.2); MONOCYTES % (AUTO) 7 % (0-12); NEUTROPHILS # (AUTO) 11.9 10^3/uL (1.8-7.8); NEUTROPHILS % (AUTO) 85 % (42-75); PLATELET COUNT 214 10^3/uL (130-400); WHITE BLOOD COUNT 14.1 10^3/uL (4.3-11.0)
[2021-12-13 05:44] LABS: ALBUMIN 3.8 GM/DL (3.2-4.5); POTASSIUM 4.1 MMOL/L (3.6-5.0)
[2021-12-13 05:46] LABS: CALCIUM 9.3 MG/DL (8.5-10.1)
[2021-12-13 05:47] LABS: TOTAL PROTEIN 6.1 GM/DL (6.4-8.2)
[2021-12-13 05:49] LABS: BILIRUBIN,TOTAL 0.3 MG/DL (0.1-1.0)
[2021-12-13 05:50] LABS: CREATININE SERUM 0.72 MG/DL (0.60-1.30)
[2021-12-13 06:16] LABS: BAND NEUTROPHILS 1 %; LYMPHOCYTES % (MANUAL) 7 %; MONOCYTES % (MANUAL) 4 %; NEUTROPHILS % (MANUAL) 88 %; RBC MORPH NORMAL
[2021-12-13 07:26] VITALS: BP 93/56
--- NOTE | 2021-12-13 07:59 | Progress Note ---
Standard Progress Note Progress Notes/Assess & Plan Date Seen by a Provider: Dec 13, 2021 Time Seen by a Provider: 07:58 Progress/Assessment & Plan feeling better today DC per PCP FU 2 weeks as scheduled appreciate assistance EMILE GARCIA MD Dec 13, 2021 07:59
--- NOTE | 2021-12-13 07:59 | Diagnostic Imaging Report ---
INDICATION: Aspiration pneumonia. AP view of the chest is obtained with comparison made study of 12/12/2021 FINDINGS: Heart size and pulmonary vascularity are within normal limits. Peripheral density in the right lung remains compatible with mild edema or pneumonitis. There is no consolidation. No definite pleural fluid is identified. IMPRESSION: Peripheral density in right lung is likely due to mild edema or pneumonitis without other acute abnormality detected. Dictated by: Dictated on workstation # [id number]
[2021-12-13 08:13] VITALS: BP 102/55
--- NOTE | 2021-12-13 10:57 | Discharge Summary ---
Diagnosis/Chief Complaint Date of Admission Dec 12, 2021 at 15:00 Date of Discharge Discharge Diagnosis Problems/Diagnosis: (1) Shortness of breath Assessment & Plan: - Will repeat CXR in the AM, Encouraged IS, monitoring overnight Status: Acute (2) UTI (urinary tract infection) Assessment & Plan: - Started on Rocephin, Discussed the importance of pushing fluids Qualifiers: Qualified Codes: N30.00 - Acute cystitis without hematuria Status: Chronic Chief Complaint/HPI Chief Complaint/HPI 50 yo F that was admitted from same day surgery. She was having a knee scope and at the end of the case she vomited and there was some concern about aspiration. After surgery she was placed on oxygen and was aroun 90-91 percent. No previous oxygen need. States that her pain is well controlled. States that she was recently started on antibiotic for UTI. Patient states that she has been on antibiotics on and off for the last 3-4 months. Discharge Summary-Simple/Stand Consultations Discharge Physical Examination Allergies: Coded Allergies: No Known Drug Allergies (Unverified , 03/10/16) Vitals & I&Os Vital Sign - Last 12Hours Date Time Temp Pulse Resp B/P (MAP) Pulse Ox O2 Delivery O2 Flow Rate FiO2 12/13/21 08:13 73 102/55 (71) 12/13/21 08:00 97 Room Air 12/13/21 07:26 36.0 18 12/12/21 15:44 2.00 Intake and Output 12/13/21 00:00 Intake Total 610 ml Balance 610 ml Hospital Course See final discharge diagnosis. Discharge Instructions to patient/family Please see electronic discharge instructions given to patient. Discharge Medications Reviewed and agree with Discharge Medication list on patient's Discharge Instruction sheet KAJAL NAZARIO MD Dec 13, 2021 10:57
--- NOTE | 2021-12-13 11:00 | Discharge Summary ---
Discharge [facility] Reconcile Patient Problems Problems Reviewed?: Yes Discharge Medications Continued Medications: Amitriptyline HCl (Amitriptyline HCl) 25 Mg Tablet 25 MG PO, TAB Bictegrav/Emtricit/Tenofov Ala (Biktarvy 50-200-25 mg Tablet) 1 Each Tablet 1 TAB PO HS, TAB Multivitamin (Multivitamins) 1 Each Tablet 1 TAB PO DAILY, TAB Omeprazole (Omeprazole) 40 Mg Capsule.dr 40 MG PO DAILY, CAP Vitamin B Complex (Super B-50 Complex) 1 Each Capsule 1 EACH PO DAILY, CAP Discontinued Medications: Ciprofloxacin HCl (Ciprofloxacin HCl) 250 Mg Tablet 250 MG PO Q12H for 3 Days, TAB PT STATES SHE STARTED CIPRO 12/11/21, TOOK 2 DOSES 12/11/21, NONE 12/12/21 DUE TO NPO STATUS FOR SURGERY Patient Instructions Goal/Follow Up Appt: F.u with PCP 1 week Activity & Diet Discharge Diet: No Restrictions Orders-Post D/C & Referrals Rocephin 1G q day for 5 additional days Copy Copies To 1: TIGRE BARRETO HOLLY R MD Dec 13, 2021 11:00
[2021-12-13] MEDS ORDERED: cefTRIAXone 1 GM PRE-MIX 50 ML IV NR (11:45)
[2021-12-13 12:35] VITALS: BP 102/55
--- NOTE | 2021-12-13 14:06 | Anesthesia-General Post-Op ---
General Patient Condition Mental Status/LOC: Same as Preop Cardiovascular: Satisfactory Nausea/Vomiting: Absent Respiratory: Satisfactory Pain: Controlled Complications: Absent Post Op Complications Complications None Follow Up Care/Instructions Patient Instructions None needed. Anesthesia/Patient Condition Patient Condition Patient is already discharged to home but she was doing well, no complaints and stable vital signs. She had aspirated during her procedure with an LMA in place so she was admitted to the floor for observation. She has done well per nursing staff. CRISTOFER DUBON DO Dec 13, 2021 14:06
== END 2021-12-13 12:00 | disposition home or self-care (01) ==
LOC: SDC 07:50 → 4TH 14:35 → UNDOADMOB 15:00 → UNDODISOB 12-13 12:35
PROVIDERS: ADMIT Family Medicine; ATTEND Family Medicine
DX: S83.241A Other tear of medial meniscus, current injury, right knee, initial encounter (principal); N30.00 Acute cystitis without hematuria; F17.210 Nicotine dependence, cigarettes, uncomplicated; M94.261 Chondromalacia, right knee
CPT/HCPCS: 29881; 71045 ×2; 80053; 80306; 84703; 85007; 85027; 87081; 96366; 96372; 96375; 96376; 97161; G0378; G0379; 36415; 90686

== ENCOUNTER → 2022-01-28 | Outpatient (CLI) | payer MEDICARE, MEDICAID ==
[~2022-01-28] MED LIST changes: +CIPR250T3 PO
== END ==
LOC: CARD 14:30
PROVIDERS: ATTEND Nurse Practitioner Family
DX: I51.7 Cardiomegaly (principal)
CPT/HCPCS: 93306

== ENCOUNTER → 2022-01-29 | Outpatient (CLI) | payer MEDICARE, MEDICAID ==
[~2022-01-29] MED LIST changes: +CATHETER FLUSH 10 ML SYR IVP PRN; +NS IV 1000 ML 0 ML ONE; +REGADENOSON 0.4 MG/5 ML SYR (LEXISCAN) IV ONE
[2022-01-29 09:11] VITALS: BP 90/57
[2022-01-29 09:30] VITALS: BP 90/50
--- NOTE | 2022-01-30 19:05 | STRESS TEST ---
DATE OF SERVICE: 01/29/2022 RESTING AND POST REGADENOSON TECHNETIUM-99M TETROFOSMIN SPECT CT IMAGING ORDERING PHYSICIAN: Sirena Del Toro APRN PRIMARY PHYSICIAN: Dr. Pineda CLINICAL DIAGNOSIS. Fatigue. Baseline images were carried out after injection of 8.62 mCi of technetium-99 technetium-99m Tetrofosmin. This was followed by 0.4 mg regadenoson and 22.6 mCi of technetium-99m tetrofosmin for stress imaging. The electrocardiogram showed a paced atrial rhythm and nonspecific intraventricular conduction delay. The electrocardiogram did not change significantly with the regadenoson infusion. The patient tolerated the procedure well. Review of images at rest and following exercise does not indicate any distinct perfusion defect consistent with significant myocardial ischemia or infarction. Gated images show normal global left ventricular systolic function with normal regional wall motion. Left ventricular ejection fraction is calculated to be 70%. CONCLUSIONS: 1. No evidence of any significant myocardial ischemia or infarction on the study. 2. Normal regional wall motion. 3. Normal global left ventricular systolic function with a calculated ejection fraction of 70%. Job ID: [id number] DocumentID: [id number] Dictated Date: 01/30/2022 12:24:19 Mate Chief Date: 01/30/2022 19:04:00 Dictated By: SAMUEL GANDHI MD; MALIKA; FACP; FACC;
== END ==
LOC: CARD 07:03
PROVIDERS: ATTEND Nurse Practitioner Family
DX: R53.83 Other fatigue (principal)
CPT/HCPCS: 78452; 93017; A9502

== ENCOUNTER 2022-08-05 20:29 | Emergency (ER) | payer MEDICARE, MEDICAID ==
[~2022-08-05] VITALS: Ht 162.6 cm; Wt 74.8 kg
[~2022-08-05 20:29] MED LIST changes: -CATHETER FLUSH 10 ML SYR IVP PRN; -NS IV 1000 ML 0 ML ONE; +PARO-124 PO; -PARO-49 PO; -REGADENOSON 0.4 MG/5 ML SYR (LEXISCAN) IV ONE
[2022-08-05] MEDS ORDERED: NS IV 1000 ML 1,000 ML IV STA ×2 (21:04→22:19)
--- NOTE | 2022-08-05 21:06 | ED General ---
General Stated Complaint: TICK BITES/FATIGUE/MUSCLE ACHES/LEG PAIN Source of Information: Patient Exam Limitations: No Limitations (CARINE MARTINI) History of Present Illness Date Seen by Provider: August 05, 2022 Time Seen by Provider: 21:05 Initial Comments Patient is a 51-year-old female with a history of HIV, gastric bypass who presents the ED for increased tiredness, fatigue over the past week. She states that she just feels off. She feels warm and fevers. Difficulty focusing. She states she does have severe body itching, bilateral leg aching. Patient states at work she is having difficulty focusing and is wanting to sleep. She has had a few episodes of diarrhea. 1 episode of vomiting however she does have a history of gastric bypass and sensitive to certain foods. She states over the past 2 months she has pulled off 13-20 ticks. She recently moved to a new house in [place]. She states the ticks were engorged. Last bite 1 week ago. she is unclear if she has a tickborne illness. She is currently on Biktarvy for a HIV. She denies of any chest pain, cough, abdominal pain,. She does report frequent urination. Denies of any visual changes, unilateral muscle weakness or sensory changes. Denies history of tickborne illness. (CARINE MARTINI) Allergies and Home Medications Allergies Coded Allergies: No Known Drug Allergies (Unverified , 03/10/16) Patient Home Medication List Home Medication List Reviewed: Yes (CARINE MARTINI) Amitriptyline HCl (Amitriptyline HCl) 25 Mg Tablet, 25 MG PO, (Reported) Entered as Reported by: AILEEN FIGUEROA on 10/10/21 0947 Bictegrav/Emtricit/Tenofov Ala (Biktarvy 50-200-25 mg Tablet) 1 Each Tablet, 1 TAB PO HS, (Reported) Entered as Reported by: MICHAEL BARILLAS on 11/11/18 1607 Cephalexin (Cephalexin) 500 Mg Tablet, 500 MG PO BID Prescribed by: MERNA SYLVESTER on 08/05/22 2214 Multivitamin (Multivitamins) 1 Each Tablet, 1 TAB PO DAILY, (Reported) Entered as Reported by: MICHAEL BARILLAS on 11/11/18 1623 Omeprazole (Omeprazole) 40 Mg Capsule.dr, 40 MG PO DAILY, (Reported) Entered as Reported by: JUSTINE BARBER on 03/06/17 1344 Vitamin B Complex (Super B-50 Complex) 1 Each Capsule, 1 EACH PO DAILY, (R eported) Entered as Reported by: JON AKERS on 08/31/19 0906 Review of Systems Review of Systems Constitutional: No chills, No diaphoresis; malaise, weakness EENTM: No ear pain, No blurred vision, No hoarseness, No mouth pain, No mouth swelling Respiratory: No dyspnea on exertion Cardiovascular: No chest pain, No edema Gastrointestinal: No abdominal pain; diarrhea; No dysphagia; nausea, vomiting Genitourinary: decreased output, discharge, frequency Musculoskeletal: No back pain, No joint pain Skin: No change in color, No change in hair/nails (CARINE MARTINI) All Other Systems Reviewed Negative Unless Noted: Yes (CARINE MARTINI) Past Semailw-Xnejzu-Qspnep Hx Immunizations Up To Date Tetanus Booster (TDap): Unknown First/Initial COVID19 Vaccinat: 2020 Second COVID19 Vaccination Ganesh: N/A Third COVID19 Vaccination Date: N/A (CARINE MARTINI) Seasonal Allergies Seasonal Allergies: No (CARINE MARTINI) Past Medical History Surgery/Hospitalization HX: History of HIV, Ulcers, Surgeries: Gastric bypass, Hernia repair, back surgery, RIVAS Surgeries: Yes (GASTRIC BYPASS, ABDOMINOPLASTY; HERNIA REPAIR) Abdominal, Adenoidectomy, Section, Gallbladder, Orthopedic, Pacemaker, Tonsillectomy Respiratory: Yes COPD Currently Using CPAP: No Currently Using BIPAP: No Cardiac: Yes (PACEM[employer]ER FOR BRADYCARDIA, [place] R/T DRUG USE 2014) Heart Attack Neurological: No Vertigo Reproductive Disorders: No Sexually Transmitted Disease: No HIV/AIDS: Yes Genitourinary: Yes Kidney Infection, Kidney Stones Gastrointestinal: Yes Gastroesophageal Reflux, Chronic Constipation, Hiatal Hernia, Ulcer Musculoskeletal: No Endocrine: No HEENT: Yes (CONTACTS AND GLASSES) Cancer: No Psychosocial: Yes ADD/ADHD, Anxiety, PTSD, Bipolar, Depression Integumentary: No Blood Disorders: Yes (hiv POS) Adverse Reaction/Blood Tranf: No (CARINE MARTINI) Family Medical History No Pertinent Family Hx (CARINE MARTINI) Physical Exam Vital Signs Vital Signs - First Documented 08/05/22 20:48 Temp 36.7 Pulse 81 Resp 18 B/P (MAP) 107/52 (70) Pulse Ox 95 O2 Delivery Room Air (DIXIE LOPEZ DO) Vital Signs Capillary Refill : (CARINE MARTINI) Height, Weight, BMI Height: 5'4.00" Weight: 203lbs. 1.6oz. [id number]; 29.19 BMI Method:Stated General Appearance: No Apparent Distress, WD/WN Eyes: Bilateral Eye Normal Inspection, Bilateral Eye PERRL, Bilateral Eye EOMI HEENT: PERRL/EOMI, TMs Normal, Normal ENT Inspection, Pharynx Normal Neck: Full Range of Motion, Normal Inspection, Non Tender, Supple Respiratory: Chest Non Tender, Lungs Clear, Normal Breath Sounds, No Accessory Muscle Use, No Respiratory Distress Cardiovascular: Regular Rate, Rhythm, No Edema, No Gallop, No JVD Gastrointestinal: Normal Bowel Sounds, No Organomegaly, No Pulsatile Mass, Non Tender Extremity: Normal Capillary Refill, Normal Inspection, Normal Range of Motion, Non Tender, No Calf Tenderness Neurologic/Psychiatric: Alert, Oriented x3, No Motor/Sensory Deficits, Normal Mood/Affect, pulmonary fellow II-XII Norm as Tested Skin: Normal Color, Warm/Dry (CARINE MARTINI) Progress/Results/Core Measures Suspected Sepsis SIRS Temperature: Pulse: Respiratory Rate: Laboratory Tests 08/05/22 20:55: White Blood Count 6.0 Blood Pressure / Mean: Laboratory Tests 08/05/22 20:55: Creatinine 0.84, Platelet Count 253, Total Bilirubin 0.2 (CARINE MARTINI) Results/Orders Lab Results Laboratory Tests Test 08/05/22 20:55 08/05/22 21:49 Range/Units White Blood Count 6.0 4.3-11.0 10^3/uL Red Blood Count 4.38 3.80-5.11 10^6/uL Hemoglobin 13.4 11.5-16.0 g/dL Hematocrit 39 35-52 % Mean Corpuscular Volume 90 80-99 fL Mean Corpuscular Hemoglobin 31 25-34 pg Mean Corpuscular Hemoglobin Concent 34 32-36 g/dL Red Cell Distribution Width 14.8 H 10.0-14.5 % Platelet Count 253 130-400 10^3/uL Mean Platelet Volume 11.8 9.0-12.2 fL Immature Granulocyte % (Auto) 0 % Neutrophils (%) (Auto) 57 42-75 % Lymphocytes (%) (Auto) 29 12-44 % Monocytes (%) (Auto) 9 0-12 % Eosinophils (%) (Auto) 4 0-10 % Basophils (%) (Auto) 1 0-10 % Neutrophils # (Auto) 3.4 1.8-7.8 10^3/uL Lymphocytes # (Auto) 1.7 1.0-4.0 10^3/uL Monocytes # (Auto) 0.5 0.0-1.0 10^3/uL Eosinophils # (Auto) 0.2 0.0-0.3 10^3/uL Basophils # (Auto) 0.1 0.0-0.1 10^3/uL Immature Granulocyte # (Auto) 0.0 0.0-0.1 10^3/uL Erythrocyte Sedimentation Rate 6 0-30 MM/HR Sodium Level 142 135-145 MMOL/L Potassium Level 3.3 L 3.6-5.0 MMOL/L Chloride Level 109 H 98-107 MMOL/L Carbon Dioxide Level 23 21-32 MMOL/L Anion Gap 10 5-14 MMOL/L Blood Urea Nitrogen 12 7-18 MG/DL Creatinine 0.84 0.60-1.30 MG/DL Estimat Glomerular Filtration Rate 84 BUN/Creatinine Ratio 14 Glucose Level 86 70-105 MG/DL Calcium Level 9.0 8.5-10.1 MG/DL Corrected Calcium 9.0 8.5-10.1 MG/DL Total Bilirubin 0.2 0.1-1.0 MG/DL Aspartate Amino Transf (AST/SGOT) 12 5-34 U/L Alanine Aminotransferase (ALT/SGPT) 13 0-55 U/L Alkaline Phosphatase 83 40-136 U/L C-Reactive Protein High Sensitivity 0.07 0.00-0.50 MG/DL Total Protein 6.2 L 6.4-8.2 GM/DL Albumin 4.0 3.2-4.5 GM/DL Lipase 43 8-78 U/L Urine Color YELLOW Urine Clarity CLEAR Urine pH 5.5 5-9 Urine Specific Darwin >=1.030 1.016-1.022 Urine Protein NEGATIVE NEGATIVE Urine Glucose (UA) NEGATIVE NEGATIVE Urine Ketones NEGATIVE NEGATIVE Urine Nitrite POSITIVE H NEGATIVE Urine Bilirubin NEGATIVE NEGATIVE Urine Urobilinogen 0.2 < = 1.0 MG/DL Urine Leukocyte Esterase NEGATIVE NEGATIVE Urine RBC (Auto) NEGATIVE NEGATIVE Urine RBC 0-2 /HPF Urine WBC 5-10 H /HPF Urine Squamous Epithelial Cells 5-10 /HPF Urine Crystals NONE /LPF Urine Bacteria LARGE H /HPF Urine Casts NONE /LPF Urine Mucus MODERATE H /LPF Urine Culture Indicated YES (JESSICA,DIXIE K DO) Medications Given in ED Current Medications Medications Dose Ordered Sig/Brit Route Start Time Stop Time Status Last Admin Dose Admin Potassium Chloride 20 meq ONCE ONCE PO 08/05/22 22:15 08/05/22 22:16 DC 08/05/22 22:22 20 MEQ (JESSICA,DIXIE K DO) Vital Signs/I&O 08/05/22 20:48 Temp 36.7 Pulse 81 Resp 18 B/P (MAP) 107/52 (70) Pulse Ox 95 O2 Delivery Room Air (JESSICA,DIXIE K DO) Vital Signs/I&O Capillary Refill : (CARINE MARTINI) Departure Communication (PCP) Reviewed previous ER visits, H&P, lab testing. History of HIV currently on Biktarvy. Patient with flulike symptoms. She is concern for tickborne illness. She reports multiple tick bites over the past few months. She states she pulled off the ticks. Last tick bite was about 2 weeks ago. Due to concern for tick bite, history of HIV, general lab work, ESR, CRP, tick panel was ordered. No evidence of bulls eye type rash. No rash to hands. No oral mucosal lesions. No specific chest pain or shortness of breath. Denies of any recent antibiotic use. She does report frequent urination. CBC grossly unremarkable. Normal ESR CRP grossly unremarkable. Normal chemistry besides potassium 3.3. Patient Was given oral potassium 20 mill equivalent. Urinalysis positive for nitrites and leukocytes. Possible UTI. Patient Was given dose of Keflex. Patient blood pressure was slightly hypotensive in the 90's systolic. Did receive 2 L of fluid with improvement of blood pressure of 108/69. She states she does work 2 jobs and has not been eating or drinking as much. Her leg pain started to improve. She has appropriate strength throughout. No sensory changes, no bowel or urine incontinence, saddle paresthesia. No meningeal signs. She is afebrile. Do not necessarily think prophylactic doxycycline would be beneficial at this time as she has had no recent tick bite within the past 72 hours. Will wait for panel. Will discharge with Keflex for UTI. Recommend continue hydration. Follow-up with PCP in 2 to 3 days for reevaluation. Return precaution were discussed. Continue with hydration. Follow-up with your BP. Patient without any focal neural deficits. No strokelike symptoms (CARINE MARTINI) Impression Primary Impression: UTI (urinary tract infection) Disposition: HOME, SELF-CARE Condition: Stable Departure-Patient Inst. Decision time for Depature: 22:13 (CARINE MARTINI) Referrals: TIGRE BARRETO DO (PCP/Family) Primary Care Physician Patient Instructions: Urinary Tract Infection, Adult (DC) Add. Discharge Instructions: Recommend follow-up with your PCP in 2 to 3 days for reevaluation. Take antibiotics as prescribed. Follow-up with today's lab results. If any worsening symptoms return back to ED Scripts Cephalexin (Cephalexin) 500 Mg Tablet 500 MG PO BID for 7 Days, #14 TAB Prov: CARINE MARTINI 08/05/22 ATTENDING PHYSICIAN NOTE: I WAS PHYSICALLY PRESENT ER PHYSICIAN, BUT IN WAS NOT INVOLVED IN ANY DECISION MAKING OR ANY CARE OF THIS PATIENT, AND I AM NOT COLLABORATING PHYSICIAN. (DIXIE LOPEZ DO) CARINE MARTINI August 05, 2022 21:06 DIXIE LOPEZ DO August 06, 2022 02:51
[2022-08-05 21:22] LABS: BASOPHILS # (AUTO) 0.1 10^3/uL (0.0-0.1); BASOPHILS % (AUTO) 1 % (0-10); EOSINOPHILS # (AUTO) 0.2 10^3/uL (0.0-0.3); EOSINOPHILS % (AUTO) 4 % (0-10); HEMATOCRIT 39 % (35-52); HEMOGLOBIN 13.4 g/dL (11.5-16.0); LYMPHOCYTES # (AUTO) 1.7 10^3/uL (1.0-4.0); LYMPHOCYTES % (AUTO) 29 % (12-44); MEAN CORPUSCULAR HEMOGLOBIN 31 pg (25-34); MEAN CORPUSCULAR HGB CONC 34 g/dL (32-36); MEAN CORPUSCULAR VOLUME 90 fL (80-99); MEAN PLATELET VOLUME 11.8 fL (9.0-12.2); MONOCYTES # (AUTO) 0.5 10^3/uL (0.0-1.0); MONOCYTES % (AUTO) 9 % (0-12); NEUTROPHILS # (AUTO) 3.4 10^3/uL (1.8-7.8); NEUTROPHILS % (AUTO) 57 % (42-75); PLATELET COUNT 253 10^3/uL (130-400)
[2022-08-05 21:28] LABS: BILIRUBIN,TOTAL 0.2 MG/DL (0.1-1.0); CREATININE SERUM 0.84 MG/DL (0.60-1.30); POTASSIUM 3.3 MMOL/L (3.6-5.0); TOTAL PROTEIN 6.2 GM/DL (6.4-8.2)
--- NOTE | 2022-08-05 21:33 | Diagnostic Imaging Report ---
EXAMINATION: Chest radiograph, portable AP view. DATE: 08/05/2022 9:30 PM INDICATION: 51-year-old female, fatigue and bodyaches. Shortness of breath. Tick bites. COMPARISON: December 13, 2021. FINDINGS: There is a left-sided cardiac assist device with leads. The leads appear intact. Heart size and mediastinal contours are unremarkable. There is no identified pneumothorax. There is no large pleural effusion. There is no identified focal airspace consolidation. IMPRESSION: 1. No identified acute cardiopulmonary abnormality. Dictated by: Dictated on workstation # [id number]
[2022-08-05 21:49] LABS: ERYTHROCYTE SEDIMENTATION RATE 6 MM/HR (0-30)
[2022-08-05 21:55] LABS: BILIRUBIN,URINE NEGATIVE (NEGATIVE); CLARITY,URINE CLEAR; COLOR,URINE YELLOW; GLUCOSE, URINE (UA) NEGATIVE (NEGATIVE); KETONES,URINE NEGATIVE (NEGATIVE); LEUKOCYTE ESTERASE ,URINE NEGATIVE (NEGATIVE); NITRITE,URINE POSITIVE (NEGATIVE); PH,URINE 5.5 (5-9); PROTEIN,URINE NEGATIVE (NEGATIVE)
[2022-08-05 22:05] LABS: BACTERIA,URINE LARGE /HPF; RBC,URINE 0-2 /HPF
[2022-08-05] MEDS ORDERED: CEPHALEXIN 250 MG (KEFLEX) CAP PO STA (22:10)
[2022-08-05] MEDS ORDERED: CEPH500T PO (22:14)
[2022-08-05] MEDS ORDERED: KCL 20 MEQ TAB (K-DUR) PO ONE (22:15)
[2022-08-05 23:14] VITALS: BP 106/68
== END 2022-08-05 23:14 | disposition home or self-care (01) ==
LOC: EDUNIT# 20:29 → ER 20:31
DX: N39.0 Urinary tract infection, site not specified (principal); B20 Human immunodeficiency virus [HIV] disease; Z28.311 Partially vaccinated for COVID-19; Z79.899 Other long term (current) drug therapy
CPT/HCPCS: 36415; 71045; 80053; 81000; 83690; 85025; 85652; 86141; 86361; 86618; 86666; 86668; 86757; 87088